=== PATIENT | male | born 1950 | race Caucasian/White ===

== ENCOUNTER → 2018-01-26 11:50 | Outpatient (REF) | payer MEDICARE, MEDICAID, SELFPAY ==
[2018-01-26 12:39] LABS: HCT 44.4 % (40.0-50.0); HGB 14.7 g/dL (13.5-17.5); Mean Corp. HGB Concentration 33.1 g/dL (32.0-36.0); Mean Corpuscular Hemoglobin 30.2 pg (27.0-33.0); Mean Corpuscular Volume 91.4 fL (80-95); Mean Platelet Volume 10.8 fL (8.0-11.0); Platelet Count 193 x1000/uL (130-400); RBC 4.86 m/cumm (4.50-6.00); RBC Distribution Width 16.6 % (11.8-14.1); White Blood Cell Count 7.29 k/cumm (4.4-10.8)
[2018-01-26 12:54] LABS: Hemoglobin A1C 6.1 % (4.5-6.2)
[2018-01-26 12:59] LABS: Anion Gap 7.4 mmol/L (3-11); BUN 22 mg/dL (7-18); CO2 27.6 mmol/L (21.0-32.0); CREATININE 1.34 mg/dL (0.70-1.30); Calcium 9.1 mg/dL (8.5-10.1); Chloride 100 mmol/L (98-107); Estimated GFR 53.17 (mL/min/1.73m2); Ferritin 32 ng/mL (8-388); Glucose 121 mg/dL (70-100); Potassium 4.6 mmol/L (3.5-5.1); Sodium 135 mmol/L (136-145)
== END ==
LOC: NCHCN 11:50
PROVIDERS: PCP Family Medicine; Visit Provider Family Medicine
DX: E11.9 Type 2 diabetes mellitus without complications (principal); I10 Essential (primary) hypertension; K92.2 Gastrointestinal hemorrhage, unspecified; R60.9 Edema, unspecified
CPT/HCPCS: 80048; 85027; 82728; 83036

== ENCOUNTER 2018-04-14 08:21 | Day surgery (SDC) | payer MEDICARE, MEDICAID, SELFPAY ==
[2018-04-14 08:55] VITALS: BP 132/87; PULSE 92; RESP 18; TEMP 36.4; O2SAT 98
[2018-04-14] MEDS: Lactated Ringers 1,000 ML 30 ML IV (09:09)
--- NOTE | 2018-04-14 10:32 | W.COLOREPORT ---
Date of service: 04/14/18 Time of Service: 10:00 Colonoscopy Report Date of procedure: 04/14/18 Pre-op diagnosis general: Colorectal cancer screening Post-op diagnosis procedure note: other (Mild sigmoid diverticulosis) Procedure: Colonoscopy to the cecum Surgeon: Steve Marino Anesthesia proc note operative: MAC (Elías Melissa CRNA; ASA 3 Mallampati class II) Estimated blood loss (mL): 0 Pathology: none sent Complications: None Disposition: same day Indications: 67-year-old gentleman presenting for colorectal cancer screening by colonoscopy. He has no family history of colorectal cancer. He has had esophagectomy for adenocarcinoma of the esophagus. His last colonoscopy was unremarkable Prep: Miralax/Dulcolax (Prep quality adequate) Procedure Start Time: 10:01 Procedure End Time: 10:29 Retraction Time: 14 Findings: In examining the colon from cecum to anus, the patient still had some areas of pulled fecal residue which I was able to wash away. Though, this small pathology still could have been missed. Overall no abnormalities were noted of the colon, rectum, and anus. Procedure Description: The patient was seen in the day surgery waiting area. His identification was confirmed, and procedure checked. He was then brought to the procedure room. Monitoring for telemetry, blood pressure, oxygen saturation, and end tidal CO2 monitoring were applied. An appropriate time out was performed to confirm, identification, allergies, medication, procedure, was performed. Sedation was titrated for affect by the CON; Once adequate sedation was achieved, I performed a inspection of the external perineum, and a digitial rectal examination. No significant external abnormalities were noted. On digital rectal examination, there was no blood, no masses, good rectal tone, and a normal prostate. I advanced the colonoscope from the anus to the cecum under direct visualization. The cecum was identified by the ileal-cecal valve, and the appendiceal orifice. The scope was then withdrawn in circumferential manner from the cecum to the rectum. No abnormalites were noted in the colon other than some mild sigmoid diverticulosis which is not a new finding. The scope was then withdrawn into the rectum, and retroflexed. No abnormalities were noted of the rectum or anorectal junction. The scope was then withdrawn, terminating the procedure. There were no complications during the procedure, and the patient tolerated the procedure well. He was returned to the day surgery recovery area in good condition. Plan: Will continue with routine screening for colorectal cancer according to current consensus guidelines, which is currently 10 years.
--- NOTE | 2018-04-14 10:43 | PDOC.DSDIS_ITS ---
Discharge Plan Disposition Patient Disposition: HOME Condition: Good Discharge Details Reason For Visit: Colorectal cancer screening Attending Provider: Steve Marino Primary Care Provider: Silvina Perdue Home Meds and New Rx's Prescriptions: Continue spironolactone 25 mg tablet 25 mg PO DAILY RF: 0 sucralfate [Carafate] 100 mg/mL suspension 10 ml PO QID RF: 0 ipratropium-albuterol [Combivent Respimat] 20-100 mcg/actuation mist 1 puff IH QID RF: 0 lidocaine 5 % cream 1 applic TP QID RF: 0 multivitamin capsule 1 cap PO DAILY RF: 0 acetaminophen [Tylenol Extra Strength] 500 MG tablet 1,000 mg PO PRN RF: 0 prazosin 1 MG capsule 1 mg PO DAILY Qty: 30 RF: 12 apixaban [Eliquis] 5 MG tablet 5 mg PO BID RF: 0 diclofenac sodium 100 GM gel 4 gm Topical QID PRN30 Days Qty: 100 RF: 11 folic acid 1 MG tablet 1 mg PO DAILY RF: 0 bupropion HCl (smoking deter) 150 MG tablet extended release 12 hr 150 mg PO BID RF: 0 esomeprazole magnesium [Nexium Packet] [address] for susp in packet 40 mg PO BID RF: 0 gabapentin [Gralise] 300 MG tablet extended release 24 hr 300 mg PO TID RF: 0 aspirin [Ecotrin Low Strength] 81 MG tablet,delayed release (DR/EC) 81 mg PO DAILY RF: 0 furosemide 40 MG tablet 40 mg PO . DIRECTED RF: 0 atorvastatin [Lipitor] 10 MG tablet 10 mg PO HS RF: 0 metoprolol tartrate 100 MG tablet 50 mg PO BID RF: 0 tiotropium bromide [Spiriva with HandiHaler] 18 MCG capsule, w/inhalation device 2 puff Inhalation DAILY RF: 0 nitroglycerin [Nitrostat] 0.4 MG tablet, sublingual 0.4 mg Sublingual . DIRECTED PRN (Reason: Chest Pain) RF: 0 cholecalciferol (vitamin D3) 1,000 UNITS tablet 2,000 units PO DAILY RF: 0 pantoprazole 40 MG tablet,delayed release (DR/EC) 40 mg PO DAILY RF: 0 hydrocodone-acetaminophen 1 EACH tablet 1 tab PO BID RF: 0 sulfamethoxazole-trimethoprim 1 TAB tablet 1 ea PO BID Qty: 14 RF: 0 cephalexin 500 MG capsule 500 mg PO QID Qty: 28 RF: 0 metoprolol tartrate 25 mg Tablet 12.5 mg PO BID RF: 0 Discharge Instructions Instructions: Colonoscopy (DC) Stand Alone Forms: Colonoscopy Post Instructions, Charisma Quijano (DSU) Activity:: Activity as Tolerated Diet:: As Tolerated Discharge Orders Discharge Orders: Discharge Order (Routine); Ordered 04/14/18 Ordered By: Steve Marino DS: Diagnosis Discharge Diagnosis (1) Encounter for colorectal cancer screening: Start date: 04/14/18 Start time: 10:00 Status: Acute Asessment and Plan: Colonoscopy performed: Colonoscopy Report Date of procedure: 04/14/18 Pre-op diagnosis general: Colorectal cancer screening Post-op diagnosis procedure note: other (Mild sigmoid diverticulosis) Procedure: Colonoscopy to the cecum Surgeon: Steve Marino Anesthesia proc note operative: MAC (Elías Melissa CRNA; ASA 3 Mallampati class II) Estimated blood loss (mL): 0 Pathology: none sent Complications: None Disposition: same day Indications: 67-year-old gentleman presenting for colorectal cancer screening by colonoscopy. He has no family history of colorectal cancer. He has had esophagectomy for adenocarcinoma of the esophagus. His last colonoscopy was unremarkable Prep: Miralax/Dulcolax (Prep quality adequate) Procedure Start Time: 10:01 Procedure End Time: 10:29 Retraction Time: 14 Findings: In examining the colon from cecum to anus, the patient still had some areas of pulled fecal residue which I was able to wash away. Though, this small pathology still could have been missed. Overall no abnormalities were noted of the colon, rectum, and anus. Procedure Description: The patient was seen in the day surgery waiting area. His identification was confirmed, and procedure checked. He was then brought to the procedure room. Monitoring for telemetry, blood pressure, oxygen saturation, and end tidal CO2 monitoring were applied. An appropriate time out was performed to confirm, identification, allergies, medication, procedure, was performed. Sedation was titrated for affect by the BLACK TOP SPREADER MACHINE OPERATOR; Once adequate sedation was achieved, I performed a inspection of the external perineum, and a digitial rectal examination. No significant external abnormalities were noted. On digital rectal examination, there was no blood, no masses, good rectal tone, and a normal prostate. I advanced the colonoscope from the anus to the cecum under direct visualization. The cecum was identified by the ileal-cecal valve, and the appendiceal orifice. The scope was then withdrawn in circumferential manner from the cecum to the rectum. No abnormalites were noted in the colon other than some mild sigmoid diverticulosis which is not a new finding. The scope was then withdrawn into the rectum, and retroflexed. No abnormalities were noted of the rectum or anorectal junction. The scope was then withdrawn, terminating the procedure. There were no complications during the procedure, and the patient tolerated the procedure well. He was returned to the day surgery recovery area in good condition. Plan: Will continue with routine screening for colorectal cancer according to current consensus guidelines, which is currently 10 years.
[2018-04-14 10:58] VITALS: BP 118/86; PULSE 74; RESP 18; TEMP 36.7; O2SAT 99
[2018-04-14] MEDS: HYDROcodone 5/Acetaminophen 325 TAB PO (11:29)
== END 2018-04-14 11:45 | disposition home or self-care (01) ==
PROVIDERS: PCP Family Medicine; Visit Provider Surgery
PROC: 0DJD8ZZ Inspection of Lower Intestinal Tract, Via Natural or Artificial Opening Endoscopic (ICD-10-PCS; CPT 45378; principal; 2018-04-14 10:00)
DX: Z12.11 Encounter for screening for malignant neoplasm of colon (principal); K57.30 Diverticulosis of large intestine without perforation or abscess without bleeding; Z85.01 Personal history of malignant neoplasm of esophagus
CPT/HCPCS: 45378; G0105

== ENCOUNTER 2018-05-08 00:38 | Outpatient (CLI) | payer MEDICARE, MEDICAID, SELFPAY ==
--- NOTE | 2018-05-08 11:01 | DI.CT_ITS ---
SYMPTOM/DIAGNOSIS: SOLITARY PULMONARY NODULE, STABLE, ONE YEAR FOLLOW UP CHEST CT: CT scan of the chest was performed without intravenous contrast material. Comparison is made with 04/08/17. The lack of IV contrast does limit evaluation. The thyroid gland is heterogeneous with areas of decreased attenuation likely reflecting thyroid nodules. Follow up as clinically appropriate. There is atherosclerosis of the thoracic aorta but no aneurysmal dilatation is present. Heart size is at the upper limits of normal. No significant pericardial effusion is seen. Sternal wires are present. No significant thoracic adenopathy is appreciated. No pleural effusion or pneumothorax is identified. Note is again made of post surgical changes of a gastric pull up. There are again seen moderately severe emphysematous changes in the lungs. Pleural scarring is also present. The small area of spiculation in the left upper lobe is less prominent on the current examination. No new pulmonary nodules are appreciated. No new infiltrates are seen. Degenerative changes are seen in the spine. There are stable post surgical changes in the left anterior abdominal wall. IMPRESSION: 1. Persistent nodule in the left upper lobe, less prominent on the current examination. 2. No new pulmonary nodules.
== END 2018-05-08 00:58 ==
PROVIDERS: PCP Family Medicine; Visit Provider Family Medicine
DX: R91.1 Solitary pulmonary nodule (principal); J43.9 Emphysema, unspecified; J98.4 Other disorders of lung
CPT/HCPCS: 71250

== ENCOUNTER 2018-08-04 09:22 | Outpatient (CLI) | payer MEDICARE, MEDICAID, SELFPAY ==
[2018-08-04 10:43] LABS: Cholesterol 132 mg/dL (50-200); HDL Cholesterol 76 mg/dL (40-60); LDL CHOLESTEROL 41 mg/dL (<100); Triglyceride 57 mg/dL (30-150)
== END 2018-08-04 09:42 ==
PROVIDERS: PCP Family Medicine; Visit Provider Family Medicine
DX: I10 Essential (primary) hypertension (principal); E11.9 Type 2 diabetes mellitus without complications; R60.9 Edema, unspecified; I25.810 Atherosclerosis of coronary artery bypass graft(s) without angina pectoris
CPT/HCPCS: 36415; 80061; 83721

== ENCOUNTER 2018-11-02 11:43 | Outpatient (REF) | payer MEDICARE, MEDICAID, SELFPAY ==
[2018-11-02 19:56] LABS: COMMENT (LAB VIEW ONLY) 45.37 mg/dL; Microalb ug/mg Crea 12.6 ug/mg Cr
== END 2018-11-02 12:03 ==
LOC: NCHCN 11:43
PROVIDERS: PCP Family Medicine; Visit Provider Family Medicine
DX: E11.9 Type 2 diabetes mellitus without complications (principal)
CPT/HCPCS: 82043; 82570

== ENCOUNTER 2019-01-26 14:17 | Emergency (ER) | payer MEDICARE, MEDICAID, SELFPAY ==
[2019-01-26] VITALS (15 sets, daily range): BP systolic 89–109; BP diastolic 60–78; PULSE 67–98; RESP 12–28; TEMP 36.7–36.8; O2SAT 95–99
--- NOTE | 2019-01-26 14:26 | DI.CT_ITS ---
SYMPTOM/DIAGNOSIS: FELL, RT SIDED PAIN, SOB, ANTICOAGULATED CHEST, ABDOMEN AND PELVIC CT: CHEST: Comparison is made with chest CT dated 05/08/18. There is an old right eleventh rib fracture. No acute rib or spine fractures are seen. Sternal wires are noted. There is no evidence of pneumothorax. There are severe underlying emphysematous changes at the upper lobes. There are now increased densities in the right upper lobe, both posteriorly as well as anteriorly. Mildly increased densities are seen in the right lower and left lung base. No pleural or pericardial effusions are seen. The heart is enlarged. There are calcifications of the aorta but no evidence of aneurysm or dissection. There are post surgical changes at the GE junction. A portion of the stomach projects in the chest. There are multiple old left rib fractures. IMPRESSION: Acute infiltrates, greatest in the right upper lobe. Post surgical changes of the distal esophagus and stomach. Old bilateral rib fractures. Cardiomegaly. ABDOMEN AND PELVIC CT: There is artifact on the upper images due to patient's arm position. The liver, gallbladder, pancreas and kidneys are unremarkable. There are surgical clips adjacent to the spleen. The adrenals are unremarkable. There is a large quantity of stool in the colon. There are severe atherosclerotic changes of the abdominal aorta and iliac arteries with no evidence of occlusion. Bladder and prostate are unremarkable. No lumbar spine or pelvic fractures are seen. IMPRESSION: No acute abnormality.
--- NOTE | 2019-01-26 14:27 | W.ED.GENAD ---
Discharge Plan Disposition Patient Disposition: HOME Condition: Improving Discharge Details Chief Complaint: Trauma Clinical Impression: Pneumonia involving right lung Primary Care Provider: Silvina Perdue ED Provider: Gregor Broderick Home Meds and New Rx's Prescriptions: New cefpodoxime 200 mg tablet 200 mg PO BID Qty: 14 RF: 0 Continued spironolactone 25 mg tablet 25 mg PO DAILY RF: 0 sucralfate [Carafate] 100 mg/mL suspension 10 ml PO QID RF: 0 ipratropium-albuterol [Combivent Respimat] 20-100 mcg/actuation mist 1 puff IH QID RF: 0 lidocaine 5 % cream 1 applic TP QID RF: 0 multivitamin capsule 1 cap PO DAILY RF: 0 acetaminophen [Tylenol Extra Strength] 500 MG tablet 1,000 mg PO PRN RF: 0 prazosin 1 MG capsule 1 mg PO DAILY Qty: 30 RF: 12 apixaban [Eliquis] 5 MG tablet 5 mg PO BID RF: 0 diclofenac sodium 100 GM gel 4 gm Topical QID PRN30 Days Qty: 100 RF: 11 folic acid 1 MG tablet 1 mg PO DAILY RF: 0 bupropion HCl (smoking deter) 150 MG tablet extended release 12 hr 150 mg PO BID RF: 0 esomeprazole magnesium [Nexium Packet] [address] for susp in packet 40 mg PO BID RF: 0 gabapentin [Gralise] 300 MG tablet extended release 24 hr 300 mg PO TID RF: 0 aspirin [Ecotrin Low Strength] 81 MG tablet,delayed release (DR/EC) 81 mg PO DAILY RF: 0 furosemide 40 MG tablet 40 mg PO . DIRECTED RF: 0 atorvastatin [Lipitor] 10 MG tablet 10 mg PO HS RF: 0 metoprolol tartrate 100 MG tablet 50 mg PO BID RF: 0 tiotropium bromide [Spiriva with HandiHaler] 18 MCG capsule, w/inhalation device 2 puff Inhalation DAILY RF: 0 nitroglycerin [Nitrostat] 0.4 MG tablet, sublingual 0.4 mg Sublingual . DIRECTED PRN (Reason: Chest Pain) RF: 0 cholecalciferol (vitamin D3) 1,000 UNITS tablet 2,000 units PO DAILY RF: 0 pantoprazole 40 MG tablet,delayed release (DR/EC) 40 mg PO DAILY RF: 0 hydrocodone-acetaminophen 1 EACH tablet 1 tab PO BID RF: 0 metoprolol tartrate 25 mg Tablet 12.5 mg PO BID RF: 0 Discontinued sulfamethoxazole-trimethoprim 1 TAB tablet 1 ea PO BID Qty: 14 RF: 0 cephalexin 500 MG capsule 500 mg PO QID Qty: 28 RF: 0 Discharge Instructions Instructions: Pneumonia (ED) Additional Instructions: Maintain your appointment to follow-up with Dr Perdue next week. Home to rest today. Take antibiotics as prescribed. Return to the emergency department for any acute concern Medical Decision Making 68-year-old male with a number of chronic medical problems states he slipped on 3 stairs and fell down to the floor 2 days ago striking his left and right upper extremity. He suffered abrasions that he cleaned and dressed at home. Now presents ER complaining of some cough with production of blood-tinged sputum. He denies to me a loss of consciousness. No headache. No abdominal pain. No neck or back injury. He has a normal blood pressure and oxygenation. Some right lateral chest wall tenderness and diminished breath sounds present on exam. IV placed, screening labs obtained, given patient's underlying anticoagulation, blunt traumatic injury, and right-sided pain, he is referred for CT images. There is no focal bony tenderness of the extremity and therefore plain radiographs are deferred. Patient's diagnostics reveal a white blood cell count of 12, hematocrit 43, platelets are 180. Sodium 139, potassium 3.3, chloride 101, bicarb 27, BUN 34, creatinine 1.2. CT images: Groundglass opacities and segmental regions of consolidative and fibrotic changes involving the right upper and middle lobes, may represent interstitial fibrotic changes with superimposed pneumonia. Please see formal report per Dr Buenrostro. Patient remains stable with normal oxygenation. Given his underlying lung disease, I will opt to treat him for pneumonia given his CT findings. Discussed with him plan of care, home management, as well as return precautions. He has pre-standing follow-up next week in primary care. ECG Data Attestation: I personally reviewed and interpreted this ECG (s) as follows: Interpretation: Underlying A. fib with a ventricular rate of 88, the QRS is narrow, there is no ST segment elevation. HPI General Mode of arrival: ambulatory. Date/Time Provider Initiated Documentation: 01/26/19 14:20. Limitations to Documentation: no limitations. Information obtained by: patient. History of Present Illness 68 year old M presents to the emergency department with the chief complaint of Right-sided chest pain after fall 2 days ago, described as moderate, Quality is described as dull, and is localized to the chest and right. Patient reports no radiation. Patient started experiencing this day(s) Rest improves symptom(s), Movement worsens symptoms . Patient notes cough. Patient did receive the following treatments prior to arrival, none Related Data Home Medications Medication Instructions Recorded Confirmed bupropion HCl (smoking deter) 150 mg PO BID 08/04/12 04/14/18 esomeprazole magnesium [Nexium 40 mg PO BID 08/04/12 04/14/18 Packet] folic acid 1 mg PO DAILY 08/04/12 04/14/18 gabapentin [Gralise] 300 mg PO TID 08/04/12 04/14/18 aspirin [Ecotrin Low Strength] 81 mg PO DAILY 04/09/13 04/14/18 atorvastatin [Lipitor] 10 mg PO HS 01/25/15 04/14/18 furosemide 40 mg PO . DIRECTED 01/25/15 04/14/18 metoprolol tartrate 50 mg PO BID 01/25/15 04/14/18 tiotropium bromide [Spiriva with 2 puff INHALATION DAILY 01/25/15 04/14/18 HandiHaler] cholecalciferol (vitamin D3) 2,000 units PO DAILY 04/12/16 04/14/18 nitroglycerin [Nitrostat] 0.4 mg SUBLINGUAL . DIRECTED PRN 04/12/16 04/14/18 acetaminophen [Tylenol Extra 1,000 mg PO PRN tab-cap 11/19/16 04/14/18 Strength] apixaban [Eliquis] 5 mg PO BID 12/21/16 04/14/18 prazosin 1 mg PO DAILY #30 tab-cap 12/21/16 04/14/18 pantoprazole 40 mg PO DAILY 01/15/17 04/14/18 diclofenac sodium 4 gm TOPICAL QID PRN 30 Days #100 09/05/17 04/14/18 gm hydrocodone-acetaminophen 1 tab PO BID 09/13/17 04/14/18 ipratropium 20 mcg-albuterol 100 1 puff IH QID 02/10/18 04/14/18 mcg/actuation mist for inhalation lidocaine 5 % topical cream 1 applic TP QID 02/10/18 04/14/18 multivitamin 1 cap PO DAILY 02/10/18 04/14/18 spironolactone 25 mg tablet 25 mg PO DAILY 02/10/18 04/14/18 sucralfate 100 mg/mL oral 10 ml PO QID 02/10/18 04/14/18 suspension metoprolol tartrate 12.5 mg PO BID 04/12/18 04/14/18 cefpodoxime 200 mg PO BID #14 tab 01/26/19 Previous Rx's Medication Instructions Recorded cefpodoxime 200 mg PO BID #14 tab 01/26/19 Allergies Allergy/AdvReac Type Severity Reaction Status Date / Time No Known Allergies Allergy Verified 04/12/18 08:58 General Stated Complaint: Trauma ANAMIKA: 3 Review of Systems Review of Systems 6 systems reviewed and otherwise negative. Denies loss of consciousness. No neck/back/abdominal pain. [facility] Medical History Adenocarcinoma of esophagus Afib Alcohol abuse Atrial flutter CAD (coronary artery disease) Chest wall pain Chronic obstructive lung disease Coronary arteriosclerosis Diabetes mellitus Difficulty reading Diuresis (Acute) Edema Epididymitis, right Essential hypertension GERD (gastroesophageal reflux disease) GI bleed (Chronic) Hx of esophageal malignancy Hydrocele, right Hyperlipidemia Low back pain Pancreatitis Solitary pulmonary nodule Stomach cancer (Resolved) Tobacco abuse Tricuspid regurgitation Weight loss (Acute) Surgical History cardiac cath Coronary Artery Bypass Gaft (CABG) EGD - IV Sedation Esophagectomy H/O colonoscopy (Resolved 2007) H/O colonoscopy (Resolved 04/14/18) History of esophagogastroduodenoscopy (EGD) (Resolved 09/2017) History of hydrocelectomy (Resolved) History of right inguinal hernia repair (Resolved) sugrical flap of unhealing wound Family History Mother No problems noted. Father No problems noted. Social History Smoking/Tobacco Use Status: Current every day Tobacco Type: cigarettes Alcohol Intake: current Alcohol Intake frequency: 3 or more drinks per day Alcohol type: beer Drug use: Occasionally Substance use type: marijuana Do you feel safe at home: Yes Do you feel safe in your relationship?: Yes Exam Narrative Exam Narrative: GEN: awake, alert, oriented 3. Pleasant, well groomed, interactive. HEAD: Normocephalic, atraumatic ENT: Mucous membranes moist, oropharynx unremarkable, External ear exam unremarkable EYES: PERRL, EOMI NECK: Full ROM, no BIRGIT, no menigismus CHEST/RESP: Tender right lateral chest wall, diminished breath sounds bilateral, no wheeze/rhonchi/rales CARDIOVASCULAR: Irregularly irregular, no murmur, rub evans. 2+ Rad pulse bilateral ABDOMEN: Soft, nontender, ventral hernia-soft and nontender. +Bowel sounds Back: Nontender, no step-off or deformity. EXT: Full ROM, 1+ pretibial edema, no rash. Abrasion to right lateral shoulder, no bony tenderness. Abrasion left elbow, no bony tenderness. Abrasion right wrist, no bony tenderness. Neuro: Grossly normal neurologic exam, conversant, interactive. Psych: Speech fluent, thoughts congruent, affect normal Course Vital Signs Temperature 36.8 C 01/26/19 14:21 Pulse 98 H 01/26/19 14:21 Respiratory Rate 23 01/26/19 14:21 Blood Pressure 109/78 01/26/19 14:21 Pulse Oximetry 95 01/26/19 14:21 Temperature 36.8 C 01/26/19 14:21 Temperature Source Skin 01/26/19 14:21 Pulse 98 H 01/26/19 14:21 Respiratory Rate 23 01/26/19 14:21 Respiratory Effort 01/26/19 14:25 Blood Pressure 109/78 01/26/19 14:21 Blood Pressure Position Sitting 01/26/19 14:21 Pulse Oximetry 95 01/26/19 14:21 Oxygen Delivery Method Room Air 01/26/19 14:21 Oxygen Flow Rate 0 01/26/19 14:21
[2019-01-26 14:46] LABS: Abs Immature Grans 0.03 k/cumm (0.0-0.09); Absolute Basophil Count 0.01 k/cumm (0.0-0.2); Absolute Eosinophil Count 0.06 k/cumm (0.0-0.7); Absolute Lymphocyte Count 0.79 k/cumm (1.2-3.4); Absolute Neutrophil Count 10.02 k/cumm (1.2-6.7); Basophils % 0.1; Eosinophils % 0.5; HCT 43.9 % (40.0-50.0); Immature Grans % 0.2; Lymphocytes % 6.5; Mean Corp. HGB Concentration 34.2 g/dL (32.0-36.0); Mean Corpuscular Hemoglobin 32.6 pg (27.0-33.0); Mean Corpuscular Volume 95.4 fL (80-95); Mean Platelet Volume 10.6 fL (8.0-11.0); Monocytes % 10.1; Neutrophils % 82.6; Platelet Count 180 x1000/uL (130-400); RBC Distribution Width 15.6 % (11.8-14.1); White Blood Cell Count 12.13 k/cumm (4.4-10.8)
[2019-01-26 14:47] LABS: Absolute Monocyte Count 1.23 k/cumm (0.11-0.7)
[2019-01-26 15:04] LABS: ALT 19 U/L (16-63); AST 22 U/L (15-37); Alkaline Phosphatase 127 U/L (46-116); BUN 34 mg/dL (7-18); Bilirubin, Total 0.6 mg/dL (0.2-1.0); Calcium 8.9 mg/dL (8.5-10.1); Chloride 101 mmol/L (98-107); Glucose 73 mg/dL (70-100); Potassium 3.3 mmol/L (3.5-5.1); Sodium 139 mmol/L (136-145); Total Protein 7.5 g/dL (6.4-8.2)
[2019-01-26] MEDS: Omnipaque 350 MG/ML 100 ML BTL IJ (15:50)
--- NOTE | 2019-01-26 16:12 | DI.VRAD_ITS ---
EXAM: CT Chest With Contrast EXAM DATE/TIME: 01/26/2019 3:50 PM CLINICAL HISTORY: 68 years old, male; Abdominal pain; Localized; Right; Chest wall pain; Prior surgery; Patient HX: Fall, R sided pain, SOB, anticoagulated; Additional info: Per PT: Coughing up blood TECHNIQUE: Imaging protocol: Computed tomography images of the chest with intravenous contrast. COMPARISON: CT CHEST WO 05/08/2018 10:51 AM FINDINGS: Lungs: Diffuse centrilobular emphysematous changes. Groundglass opacities and segmental regions of mixed consolidative and fibrotic changes involving the right upper and middle lobes, and to a lesser extent the lower lobes. Pleural space: No pleural effusion or pneumothorax. Heart: Moderate calcifications of the coronary arteries. Mediastinum: Moderate sized hiatal hernia. Aorta: Moderate atherosclerotic calcifications of the aorta. Lymph nodes: No enlarged lymph nodes. Bones/joints: Median sternotomy wires are in place. Degenerative changes of the visualized spine. No acute fractures. Soft tissues: Subcentimeter low density nodules in the thyroid gland, to which no further followup is necessary. Chest wall soft tissues are unremarkable. IMPRESSION: 1. Groundglass opacities and segmental regions of mixed consolidative and fibrotic changes involving the right upper and middle lobes, and to a lesser extent the lower lobes. Findings may represent interstitial fibrotic changes with superimposed pneumonia. Recommend followup chest CT in 6-8 weeks. 2. Moderate calcifications of the coronary arteries. 3. Other chronic findings, as above. EXAM: CT Abdomen and Pelvis With Contrast EXAM DATE/TIME: 01/26/2019 3:50 PM CLINICAL HISTORY: 68 years old, male; Abdominal pain; Localized; Right; Chest wall pain; Prior surgery; Patient HX: Fall, R sided pain, SOB, anticoagulated; Additional info: Per PT: Coughing up blood TECHNIQUE: Imaging protocol: Computed tomography images of the abdomen and pelvis with intravenous contrast. COMPARISON: CT CHEST WO 05/08/2018 10:51 AM FINDINGS: Mediastinum: Moderate size hiatal hernia. Liver: Nonspecific poorly defined 1.5 cm low-density lesion in the right hepatic lobe (series 4 image 39). Gallbladder and bile ducts: Unremarkable. No ductal dilation. Pancreas: Calcifications in the region of the pancreatic head, likely sequela of chronic pancreatitis. Spleen: Unremarkable. Adrenals: Unremarkable. Kidneys and ureters: Bilateral extrarenal pelves. No definitive hydronephrosis. No nephrolithiasis. Stomach and bowel: Mild stool burden throughout the colon. Appendix: No evidence of appendicitis. Intraperitoneal space: No pneumoperitoneum. No significant fluid collection. 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 Severe calcifications of the aorta and major branches. Lymph nodes: No enlarged lymph nodes. Bladder: Unremarkable. Reproductive: Unremarkable as visualized. Bones/joints: Multilevel degenerative changes of the visualized spine. No acute osseous lesion or fracture. Soft tissues: Unremarkable. IMPRESSION: 1. Mild stool burden throughout the colon. 2. 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 3. Calcifications in the region of the pancreatic head, likely sequela of chronic pancreatitis. 4. Other chronic findings, as above. Dictated and Authenticated by: Greg Buenrostro MD. Ordering:IZAIAH Bundy MD
[2019-01-26] MEDS: Cefpodoxime 200 MG TAB PO (16:28)
== END 2019-01-26 16:54 | disposition home or self-care (01) ==
LOC: ER 16:29
PROVIDERS: Emergency Provider Emergency Medicine; PCP Family Medicine
DX: J18.9 Pneumonia, unspecified organism (principal); S29.9XXA Unspecified injury of thorax, initial encounter; S40.211A Abrasion of right shoulder, initial encounter; S50.312A Abrasion of left elbow, initial encounter; S60.811A Abrasion of right wrist, initial encounter; R04.2 Hemoptysis; W10.8XXA Fall (on) (from) other stairs and steps, initial encounter; Z79.01 Long term (current) use of anticoagulants; J44.9 Chronic obstructive pulmonary disease, unspecified; E11.9 Type 2 diabetes mellitus without complications; I10 Essential (primary) hypertension
CPT/HCPCS: 36415; 74177; 80053; 93005; 99285; 71260; 85025; 93010; J3490

== ENCOUNTER 2019-01-29 15:21 | Emergency (ER) | payer MEDICARE, MEDICAID, SELFPAY ==
[2019-01-29 15:25] VITALS: BP 113/79; PULSE 99; RESP 16; TEMP 37.1; O2SAT 98
--- NOTE | 2019-01-29 15:37 | ED.GENADUL_ITS ---
Discharge Plan Disposition Patient Disposition: HOME Condition: Improving Discharge Details Chief Complaint: Orthopedic Clinical Impression: Right arm pain, Cervical radiculopathy, Thoracic compression fracture, Chronic back pain Primary Care Provider: Silvina Perdue ED Provider: Yun Rosas Home Meds and New Rx's Prescriptions: Continued spironolactone 25 mg tablet 25 mg PO DAILY RF: 0 sucralfate [Carafate] 100 mg/mL suspension 10 ml PO QID RF: 0 Combivent Respimat 20-100 mcg/actuation mist 1 puff IH QID RF: 0 lidocaine 5 % cream 1 applic TP QID RF: 0 multivitamin capsule 1 cap PO DAILY RF: 0 acetaminophen [Tylenol Extra Strength] 500 MG tablet 1,000 mg PO PRN RF: 0 prazosin 1 MG capsule 1 mg PO DAILY Qty: 30 RF: 12 Eliquis 5 MG tablet 5 mg PO BID RF: 0 diclofenac sodium 100 GM gel 4 gm Topical QID PRN30 Days Qty: 100 RF: 11 folic acid 1 MG tablet 1 mg PO DAILY RF: 0 bupropion HCl (smoking deter) 150 MG tablet extended release 12 hr 150 mg PO BID RF: 0 Nexium Packet [address] for susp in packet 40 mg PO BID RF: 0 Gralise 300 MG tablet extended release 24 hr 300 mg PO TID RF: 0 aspirin [Ecotrin Low Strength] 81 MG tablet,delayed release (DR/EC) 81 mg PO DAILY RF: 0 furosemide 40 MG tablet 40 mg PO . DIRECTED RF: 0 atorvastatin [Lipitor] 10 MG tablet 10 mg PO HS RF: 0 metoprolol tartrate 100 MG tablet 50 mg PO BID RF: 0 Spiriva with HandiHaler 18 MCG capsule, w/inhalation device 2 puff Inhalation DAILY RF: 0 nitroglycerin [Nitrostat] 0.4 MG tablet, sublingual 0.4 mg Sublingual . DIRECTED PRN (Reason: Chest Pain) RF: 0 cholecalciferol (vitamin D3) 1,000 UNITS tablet 2,000 units PO DAILY RF: 0 cefpodoxime 200 mg tablet 200 mg PO BID Qty: 14 RF: 0 lidocaine [Lidoderm] 5 % adhesive patch,medicated 1 patch TP DAILY Qty: 3 RF: 0 pantoprazole 40 MG tablet,delayed release (DR/EC) 40 mg PO DAILY RF: 0 hydrocodone-acetaminophen 1 EACH tablet 1 tab PO BID RF: 0 metoprolol tartrate 25 mg Tablet 12.5 mg PO BID RF: 0 Discharge Instructions Instructions: Vertebral Compression Fracture (ED), Cervical Radiculopathy (ED), Chronic Back Pain (ED) Additional Instructions: Follow-up with your scheduled appointment with your primary care doctor on . Take Tylenol and use your Lidoderm patch as needed directed for pain. Return immediately to the emergency department if you develop any worsening or new concerning symptoms. Discharge Data Discharge Physician: Yun Rosas Medical Decision Making 68-year-old male with medical problems including atrial fibrillation on eliquis, coronary artery disease, pancreatitis GI bleed presents for persistent right arm pain/right arm weakness after awakening this morning. He is difficult to obtain history from. Triage stated that patient persist. On my evaluation, he stated he had been mainly weak in his RUE since this morning. On further evaluation he states he is having continual pain in his R arm. On presentation, this appears to be more musculoskeletal, possibly originating from the neck, shoulder, or upper back. Considering his age and history however, will check screening labs and EKG. Will obtain a CT head and cervical spine to assess for any acute neurological insult, as well as for herniated disc or fracture in the neck. We will give a dose of tylenol and a Lidoderm patch. EKG notes a rate of 78, A. fib with no acute ST ischemic changes. Labs and imaging reviewed. No acute findings on blood work. Troponin negative. Electrolytes within normal limits. CT head negative. CT C-spine notes degenerative changes but no acute findings. There is a possible T2 compression deformity noted and recommended dedicated T-spine CT. Patient admits to upper back pain for a few months. He has minimal midline thoracic spine tenderness. Will send for T-spine CT. Patient was notified of findings and he states he feels significantly better. He has full range of motion of his right arm and states his pain is improved. 0 --CT thoracic spine notes mild acute compression deformities of the anterior superior endplate of T2. This was discussed with Dr. Aguilar and no a blakee recommendations. Patient feels much better and is requesting to go home. He has a follow-up a ppointment with his primary care doctor on . Patient has full range of motion in his arms and denies any headache, dizziness, blurry vision, slurred speech or lower extremity weakness or numbness. Again discussed with patient that his symptom presentation along with pain appears more likely consistent with cervical radiculopathy possibly due to cervical spinal stenosis or associated with his recent fall. Discussed that he could consider obtaining an outpatient MRI of his brain for further evaluation if indicated. He is advised to return here immediately if he has any worsening or new concerning symptoms. Medical Records Medical records reviewed: Yes I reviewed the patient's medical records. Imaging Data Radiologic Study: Radiologist's impression: CT Head Without Contrast EXAM DATE/TIME: 01/29/2019 3:58 PM CLINICAL HISTORY: 68 years old, male; Other: S/P fall onto R shoulder, R arm weak; Additional info: R/O cva/fracture/herniated disc TECHNIQUE: Imaging protocol: Computed tomography images of the head without contrast. Radiation optimization: All CT scans at this facility use at least one of these dose optimization techniques: automated exposure control; mA and/or kV adjustment per patient size (includes targeted exams where dose is matched to clinical indication); or iterative reconstruction. COMPARISON: CT HEAD WITHOUT CONTRAST 05/19/2017 4:23 AM FINDINGS: Brain: Mild nonspecific hypodensities of the periventricular and deep subcortical white matter, most likely secondary to chronic small vessel ischemic change. No intracranial hemorrhage or extra-axial fluid collection. No evidence of mass effect or midline shift. Irby-white matter differentiation is normal. Ventricles: Mild prominence of the ventricles and sulci, most likely attributed to parenchymal volume loss. Bones/joints: No acute osseus lesion or fracture. Sinuses: Unremarkable as visualized. Mastoid air cells: Unremarkable. Soft tissues: Unremarkable. IMPRESSION: 1. No acute intracranial pathology. 2. Other chronic findings, as above. CT Cervical Spine Without Contrast EXAM DATE/TIME: 01/29/2019 3:58 PM CLINICAL HISTORY: 68 years old, male; Other: S/P fall onto R shoulder, R arm weak; Additional info: R/O cva/fracture/herniated disc TECHNIQUE: Imaging protocol: Computed tomography images of the cervical spine without contrast. Radiation optimization: All CT scans at this facility use at least one of these dose optimization techniques: automated exposure control; mA and/or kV adjustment per patient size (includes targeted exams where dose is matched to clinical indication); or iterative reconstruction. COMPARISON: CT HEAD WITHOUT CONTRAST 05/19/2017 4:23 AM FINDINGS: Vertebrae: Possible acute mild compression deformity of the anterior superior endplate of T2. Cervical vertebral body heights are maintained. No evidence of acute cervical spine fracture. No locked or perched facets. Multilevel facet arthropathy. The dens is intact. Atlanto-axial intervals are normal. Discs/Spinal canal/Neural foramina: Multilevel degenerative changes with intervertebral disc height loss and osteophyte formation, with multilevel areas of mild to moderate canal stenosis. Soft tissues: Unremarkable. Lungs: Emphysematous changes of the lungs. IMPRESSION: 1. No acute cervical spine fracture. 2. Possible acute mild compression deformity of the anterior superior endplate of T2. Recommend correlation with dedicated thoracic spine CT. CT Thoracic Spine Without Contrast EXAM DATE/TIME: 01/29/2019 6:18 PM CLINICAL HISTORY: 68 years old, male; Abnormal findings; Abnormal radiologic findings of thoracic; Patient HX: R/O compression deformity of t2 TECHNIQUE: Imaging protocol: Computed tomography images of the thoracic spine without contrast. COMPARISON: No relevant prior studies available. FINDINGS: Vertebrae: Mild acute compression deformities the anterior superior endplate of T2. No significant loss of height. No retropulsion. Remaining thoracic vertebral body heights are maintained. Multilevel facet arthropathy. Spinous processes are intact. Discs/Spinal canal/Neural foramina: Multilevel degenerative disc height loss and osteophyte formation. No significant areas of canal narrowing. Soft tissues: Unremarkable. Lungs: Centrilobular emphysematous changes of the lungs. Patchy airspace opacities throughout the partially visualized left lower lobe. Pleural space: Trace right pleural effusion. IMPRESSION: 1. Mild acute compression deformities the anterior superior endplate of T2. 2. Patchy airspace opacities throughout the partially visualized left lower lobe. Correlate with chest imaging. 3. Trace right pleural effusion. Lab Data Lab results reviewed: Yes I reviewed the patient's lab results. Laboratory Tests Range/Units 01/29/19 01/29/19 16:15 16:15 WBC (4.4-10.8) k/cumm 6.00 RBC (4.50-6.00) m/cumm 4.35 L Hgb (13.5-17.5) g/dL 14.1 Hct (40.0-50.0) % 41.4 MCV (80-95) fL 95.2 H MCH (27.0-33.0) pg 32.4 MCHC (32.0-36.0) g/dL 34.1 RDW (11.8-14.1) % 15.1 H Plt Count (130-400) x1000/uL 177 MPV (8.0-11.0) fL 9.8 Immature Gran % 0.3 Neutrophils % 66.2 Lymphocytes % 19.7 Monocytes % 10.3 Eosinophils % 3.2 Basophils % 0.3 Absolute Neutrophils (1.2-6.7) k/cumm 3.97 Absolute Lymphocytes (1.2-3.4) k/cumm 1.18 L Absolute Monocytes (0.11-0.7) k/cumm 0.62 Absolute Eosinophils (0.0-0.7) k/cumm 0.19 Absolute Basophils (0.0-0.2) k/cumm 0.02 Sodium (136-145) mmol/L 137 Potassium (3.5-5.1) mmol/L 3.9 Chloride (98-107) mmol/L 101 Carbon Dioxide (21.0-32.0) mmol/L 29.1 Anion Gap (3-11) mmol/L 6.9 BUN (7-18) mg/dL 21 H Creatinine (0.70-1.30) mg/dL 1.07 Estimated GFR/1.73 m2 (mL/min/1.73m2) >= 60.00 Glucose (70-100) mg/dL 104 H Calcium (8.5-10.1) mg/dL 8.8 Magnesium (1.8-2.4) mg/dL 1.9 Total Bilirubin (0.2-1.0) mg/dL 0.7 AST (15-37) U/L 21 ALT (16-63) U/L 22 Alkaline Phosphatase (46-116) U/L 120 H Troponin I (0.00-0.06) ng/mL < 0.05 Total Protein (6.4-8.2) g/dL 6.7 Albumin (3.4-5.0) g/dL 2.7 L ECG Data Attestation: I personally reviewed and interpreted this ECG (s) as follows: Interpretation: Rate of 78, atrial fibrillation, no acute ST elevation or depression. QTc 417. QRS 82. HPI General Mode of arrival: ambulatory . Date/Time Provider Initiated Documentation: 01/29/19 15:21 . Limitations to Documentation: no limitations . Information obtained by: patient . HPI Narrative: Patient is a 68-year-old male with history of COPD and depression, GERD, GI bleed, hypertension, hyperlipidemia, pancreatitis and CABG who presents for right arm pain since last week. Patient states he last week, and side. He was seen in the ED at that of a right upper lobe pneumonia but no other orthopedic injuries. Patient states he awoke this morning like he could not lift his right arm as much his left side. 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 He does admit to the right. He also admits to right upper back pain. He denies headache, blurry vision, dizziness, neck pain, chest pain, shortness of breath, slurred speech or bilateral leg weakness or numbness. Patient states he was driven here by a neighbor. Related Data Home Medications Medication Instructions Recorded Confirmed Gralise 300 mg PO TID 08/04/12 01/29/19 Nexium Packet 40 mg PO BID 08/04/12 01/29/19 bupropion HCl (smoking deter) 150 mg PO BID 08/04/12 01/29/19 folic acid 1 mg PO DAILY 08/04/12 01/29/19 aspirin [Ecotrin Low Strength] 81 mg PO DAILY 04/09/13 01/29/19 Spiriva with HandiHaler 2 puff INHALATION DAILY 01/25/15 01/29/19 atorvastatin [Lipitor] 10 mg PO HS 01/25/15 01/29/19 furosemide 40 mg PO . DIRECTED 01/25/15 01/29/19 metoprolol tartrate 50 mg PO BID 01/25/15 01/29/19 cholecalciferol (vitamin D3) 2,000 units PO DAILY 04/12/16 01/29/19 nitroglycerin [Nitrostat] 0.4 mg SUBLINGUAL . DIRECTED PRN 04/12/16 01/29/19 acetaminophen [Tylenol Extra 1,000 mg PO PRN tab-cap 11/19/16 01/29/19 Strength] Eliquis 5 mg PO BID 12/21/16 01/29/19 prazosin 1 mg PO DAILY #30 tab-cap 12/21/16 01/29/19 pantoprazole 40 mg PO DAILY 01/15/17 01/29/19 diclofenac sodium 4 gm TOPICAL QID PRN 30 Days #100 09/05/17 01/29/19 gm hydrocodone-acetaminophen 1 tab PO BID 09/13/17 01/29/19 ipratropium 20 mcg-albuterol 100 1 puff IH QID 02/10/18 01/29/19 mcg/actuation mist for inhalation lidocaine 5 % topical cream 1 applic TP QID 02/10/18 01/29/19 multivitamin 1 cap PO DAILY 02/10/18 01/29/19 spironolactone 25 mg tablet 25 mg PO DAILY 02/10/18 01/29/19 sucralfate 100 mg/mL oral 10 ml PO QID 02/10/18 01/29/19 suspension metoprolol tartrate 12.5 mg PO BID 04/12/18 01/29/19 cefpodoxime 200 mg PO BID #14 tab 01/26/19 01/29/19 lidocaine [Lidoderm] 1 patch TP DAILY #3 each 01/26/19 01/29/19 Previous Rx's Medication Instructions Recorded cefpodoxime 200 mg PO BID #14 tab 01/26/19 lidocaine [Lidoderm] 1 patch TP DAILY #3 each 01/26/19 Allergies Allergy/AdvReac Type Severity Reaction Status Date / Time No Known Allergies Allergy Verified 04/12/18 08:58 General Stated Complaint: Orthopedic ANAMIKA: 4 Review of Systems Review of Systems All systems reviewed & are unremarkable except as noted in HPI and below Constitutional Reports as per HPI, Denies chills and Denies fever(s) Eyes Denies blurry vision ENT Denies dizziness, Denies sore throat and Denies throat swelling Cardiovascular Denies chest pain and Denies dyspnea Respiratory Denies cough and Denies dyspnea Gastrointestinal Denies abdominal pain, Denies diarrhea and Denies vomiting Genitourinary Denies hematuria and Denies dysuria Musculoskeletal Reports back pain and Denies numbness Integumentary/Breasts Denies lesions and Denies rash Neurologic Denies dizziness, Denies focal weakness and Denies numbness Allergic/Immunologic Denies throat swelling PFSH Medical History Adenocarcinoma of esophagus Afib Alcohol abuse Atrial flutter CAD (coronary artery disease) Chest wall pain Chronic obstructive lung disease Coronary arteriosclerosis Diabetes mellitus Difficulty reading Diuresis (Acute) Edema Epididymitis, right Essential hypertension GERD (gastroesophageal reflux disease) GI bleed (Chronic) Hx of esophageal malignancy Hydrocele, right Hyperlipidemia Low back pain Pancreatitis Solitary pulmonary nodule Stomach cancer (Resolved) Tobacco abuse Tricuspid regurgitation Weight loss (Acute) Surgical History cardiac cath Coronary Artery Bypass Gaft (CABG) EGD - IV Sedation Esophagectomy H/O colonoscopy (Resolved 2007) H/O colonoscopy (Resolved 04/14/18) History of esophagogastroduodenoscopy (EGD) (Resolved 09/2017) History of hydrocelectomy (Resolved) History of right inguinal hernia repair (Resolved) sugrical flap of unhealing wound Family History Mother No problems noted. Father No problems noted. Social History Smoking/Tobacco Use Status: Current every day Tobacco Type: cigarettes Alcohol Intake: current Alcohol Intake frequency: 3 or more drinks per day Alcohol type: beer Drug use: Never Substance use type: does not use Do you feel safe at home: Yes Do you feel safe in your relationship?: Yes Exam Const General: cooperative and healthy appearing Orientation: alert and awake HENWA Head: normal to inspection Ears: hearing grossly normal bilaterally, external ears normal and TM's normal bilaterally General nose exam: external nose normal Face and sinus: normal facial exam Mouth: oral mucosae normal Teeth and gingiva: dentition normal Throat: posterior oropharynx normal Eyes General: appearance normal, both eyes and all related structures Eyelids: eyelids normal EOM: EOM intact bilaterally Neck Neck: normal visual inspection Lymphatic: no lymphadenopathy noted Chest Chest: normal inspection of the chest Resp Effort & Inspection: normal respiratory effort and able to speak in complete sentences Auscultation: clear to auscultation bilaterally Cardio Rate: regular rate Rhythm: regular rhythm GI Inspection: normal to inspection and distended Palpation: soft, not firm, no guarding, no hepatosplenomegaly, no masses and nontender Auscultation: normal bowel sounds Back/Spine/Pelvis Back/spine/pelvis image: 1. Tenderness to palpation. No evidence of rash, ecchymoses, erythema, edema. Skin General skin exam: no rashes or lesions noted Neuro General: alert, awake and oriented x3 Cranial Nerves: CN's II-XI intact bilaterally Cognition: normal cognition Speech: speech normal Gait: normal gait Motor: muscle tone normal throughout and strength 5/5 throughout Sensory Exam: no sensory deficits noted Other: Muscle strength 5/5 b/l upper extremities. 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 Extrem General: normal to inspection, full ROM and normal capillary refill Other: Appears to have pain right is lifting right arm. Able to lift left arm to 180 degrees. Able to left to right arm to 120 degrees with some pain in right shoulder with lifting to 180 degrees. Bilateral radial pulses intact. No ecchymosis, edema, erythema to bilateral upper extremities. Healing abrasions to bilateral upper extremities. 2+ pitting edema to bilateral lower extremities. Psych Appearance: grossly normal Mental Status: mental status grossly normal Speech and Movement: speech and movement normal Affect: normal affect Thought Process: normal Course Vital Signs Temperature 98.8 F 01/29/19 15:25 Pulse 99 H 01/29/19 15:25 Respiratory Rate 16 01/29/19 15:25 Blood Pressure 113/79 01/29/19 15:25 Pulse Oximetry 98 01/29/19 15:25 Temperature 98.8 F 01/29/19 15:25 Temperature Source Skin 01/29/19 15:25 Pulse 99 H 01/29/19 15:25 Respiratory Rate 16 01/29/19 15:25 Respiratory Effort Non-Labored 01/29/19 15:27 Blood Pressure 113/79 01/29/19 15:25 Blood Pressure Position Supine 01/29/19 15:25 Pulse Oximetry 98 01/29/19 15:25 Oxygen Delivery Method Room Air 01/29/19 15:25 Oxygen Flow Rate 0 01/29/19 15:25 Pain Level 9 01/29/19 15:28
--- NOTE | 2019-01-29 15:56 | DI.CT_ITS ---
SYMPTOM/DIAGNOSIS: S/P FALL ON TO RT SHOULDER, RT ARM WEAK NONCONTRAST HEAD CT; No intracranial hemorrhage or skull fracture is seen. The ventricles are normal in size. There are mild white matter changes consistent with microvascular disease. The sinuses and mastoid air cells appear clear. The orbits are unremarkable. IMPRESSION: No acute abnormality. CT CERVICAL SPINE: There is no evidence of fracture or subluxation. There are degenerative disc changes. There is mild anterior wedging of T-1 which appears unchanged when compared with CT of the chest from 2017. Emphysematous changes are seen at the lung apices. IMPRESSION: Degenerative changes. No acute abnormality.
[2019-01-29 16:27] LABS: Abs Immature Grans 0.02 k/cumm (0.0-0.09); Absolute Basophil Count 0.02 k/cumm (0.0-0.2); Absolute Eosinophil Count 0.19 k/cumm (0.0-0.7); Absolute Lymphocyte Count 1.18 k/cumm (1.2-3.4); Absolute Monocyte Count 0.62 k/cumm (0.11-0.7); Absolute Neutrophil Count 3.97 k/cumm (1.2-6.7); Basophils % 0.3; Eosinophils % 3.2; HCT 41.4 % (40.0-50.0); HGB 14.1 g/dL (13.5-17.5); Immature Grans % 0.3; Lymphocytes % 19.7; Mean Corp. HGB Concentration 34.1 g/dL (32.0-36.0); Mean Corpuscular Hemoglobin 32.4 pg (27.0-33.0); Mean Corpuscular Volume 95.2 fL (80-95); Mean Platelet Volume 9.8 fL (8.0-11.0); Monocytes % 10.3; Neutrophils % 66.2; Platelet Count 177 x1000/uL (130-400); RBC 4.35 m/cumm (4.50-6.00); RBC Distribution Width 15.1 % (11.8-14.1)
--- NOTE | 2019-01-29 17:05 | DI.VRAD_ITS ---
EXAM: CT Head Without Contrast EXAM DATE/TIME: 01/29/2019 3:58 PM CLINICAL HISTORY: 68 years old, male; Other: S/P fall onto R shoulder, R arm weak; Additional info: R/O cva/fracture/herniated disc TECHNIQUE: Imaging protocol: Computed tomography images of the head without contrast. Radiation optimization: All CT scans at this facility use at least one of these dose optimization techniques: automated exposure control; mA and/or kV adjustment per patient size (includes targeted exams where dose is matched to clinical indication); or iterative reconstruction. COMPARISON: CT HEAD WITHOUT CONTRAST 05/19/2017 4:23 AM FINDINGS: Brain: Mild nonspecific hypodensities of the periventricular and deep subcortical white matter, most likely secondary to chronic small vessel ischemic change. No intracranial hemorrhage or extra-axial fluid collection. No evidence of mass effect or midline shift. Irby-white matter differentiation is normal. Ventricles: Mild prominence of the ventricles and sulci, most likely attributed to parenchymal volume loss. Bones/joints: No acute osseus lesion or fracture. Sinuses: Unremarkable as visualized. Mastoid air cells: Unremarkable. Soft tissues: Unremarkable. IMPRESSION: 1. No acute intracranial pathology. 2. Other chronic findings, as above. EXAM: CT Cervical Spine Without Contrast EXAM DATE/TIME: 01/29/2019 3:58 PM CLINICAL HISTORY: 68 years old, male; Other: S/P fall onto R shoulder, R arm weak; Additional info: R/O cva/fracture/herniated disc TECHNIQUE: Imaging protocol: Computed tomography images of the cervical spine without contrast. Radiation optimization: All CT scans at this facility use at least one of these dose optimization techniques: automated exposure control; mA and/or kV adjustment per patient size (includes targeted exams where dose is matched to clinical indication); or iterative reconstruction. COMPARISON: CT HEAD WITHOUT CONTRAST 05/19/2017 4:23 AM FINDINGS: Vertebrae: Possible acute mild compression deformity of the anterior superior endplate of T2. Cervical vertebral body heights are maintained. No evidence of acute cervical spine fracture. No locked or perched facets. Multilevel facet arthropathy. The dens is intact. Atlanto-axial intervals are normal. Discs/Spinal canal/Neural foramina: Multilevel degenerative changes with intervertebral disc height loss and osteophyte formation, with multilevel areas of mild to moderate canal stenosis. Soft tissues: Unremarkable. Lungs: Emphysematous changes of the lungs. IMPRESSION: 1. No acute cervical spine fracture. 2. Possible acute mild compression deformity of the anterior superior endplate of T2. Recommend correlation with dedicated thoracic spine CT. Dictated and Authenticated by: Greg Buenrostro MD. Ordering:JULIA Malcolm MD
[2019-01-29 17:06] LABS: ALT 22 U/L (16-63); AST 21 U/L (15-37); Albumin 2.7 g/dL (3.4-5.0); Alkaline Phosphatase 120 U/L (46-116); Anion Gap 6.9 mmol/L (3-11); BUN 21 mg/dL (7-18); Bilirubin, Total 0.7 mg/dL (0.2-1.0); CO2 29.1 mmol/L (21.0-32.0); CREATININE 1.07 mg/dL (0.70-1.30); Calcium 8.8 mg/dL (8.5-10.1); Chloride 101 mmol/L (98-107); Glucose 104 mg/dL (70-100); Magnesium 1.9 mg/dL (1.8-2.4); Potassium 3.9 mmol/L (3.5-5.1); Sodium 137 mmol/L (136-145); Total Protein 6.7 g/dL (6.4-8.2); Troponin I < 0.05 ng/mL (0.00-0.06)
[2019-01-29] MEDS: Acetaminophen 325 MG TAB 650 MG PO (17:13)
--- NOTE | 2019-01-29 17:35 | DI.CT_ITS ---
SYMPTOM/DIAGNOSIS: R/O COMPRESSION DEFORMITY OF t2 CT THORACIC SPINE: There is minimal anterior wedging in an acute appearing fracture of the anterior superior end plate of T-2. There are degenerative changes at C7 T1 with mild chronic deformity of the T-1 vertebral body. End plate osteophytes are seen at the remaining levels. No posterior element fractures are seen. The central canal is widely patent. IMPRESSION: Acute fracture of the anterior superior end plate of T-2
[2019-01-29] MEDS: Lidocaine 5% Patch 1 PATCH TP (17:45)
[2019-01-29 18:22] VITALS: BP 111/72; PULSE 80; RESP 16; O2SAT 97
--- NOTE | 2019-01-29 18:35 | DI.VRAD_ITS ---
EXAM: CT Thoracic Spine Without Contrast EXAM DATE/TIME: 01/29/2019 6:18 PM CLINICAL HISTORY: 68 years old, male; Abnormal findings; Abnormal radiologic findings of thoracic; Patient HX: R/O compression deformity of t2 TECHNIQUE: Imaging protocol: Computed tomography images of the thoracic spine without contrast. COMPARISON: No relevant prior studies available. FINDINGS: Vertebrae: Mild acute compression deformities the anterior superior endplate of T2. No significant loss of height. No retropulsion. Remaining thoracic vertebral body heights are maintained. Multilevel facet arthropathy. Spinous processes are intact. Discs/Spinal canal/Neural foramina: Multilevel degenerative disc height loss and osteophyte formation. No significant areas of canal narrowing. Soft tissues: Unremarkable. Lungs: Centrilobular emphysematous changes of the lungs. Patchy airspace opacities throughout the partially visualized left lower lobe. Pleural space: Trace right pleural effusion. IMPRESSION: 1. Mild acute compression deformities the anterior superior endplate of T2. 2. Patchy airspace opacities throughout the partially visualized left lower lobe. Correlate with chest imaging. 3. Trace right pleural effusion. Dictated and Authenticated by: Greg Buenrostro MD. Ordering:JULIA Malcolm MD
[2019-01-29 19:23] VITALS: BP 109/64; PULSE 76; RESP 18; TEMP 36.7; O2SAT 98
== END 2019-01-29 19:21 | disposition home or self-care (01) ==
PROVIDERS: Emergency Provider Physician Assistant; PCP Family Medicine
DX: M79.601 Pain in right arm (principal); W19.XXXA Unspecified fall, initial encounter; S22.020A Wedge compression fracture of second thoracic vertebra, initial encounter for closed fracture; X58.XXXA Exposure to other specified factors, initial encounter; M54.12 Radiculopathy, cervical region; J44.9 Chronic obstructive pulmonary disease, unspecified; F17.210 Nicotine dependence, cigarettes, uncomplicated; I10 Essential (primary) hypertension; E11.9 Type 2 diabetes mellitus without complications; Z79.01 Long term (current) use of anticoagulants; I48.91 Unspecified atrial fibrillation
CPT/HCPCS: 36415; 80053; 93005; 99285; 70450; 72125; 72128; 83735; 84484; 85025; 93010

== ENCOUNTER 2019-02-13 00:22 | Outpatient (CLI) | payer MEDICARE, MEDICAID, SELFPAY ==
--- NOTE | 2019-02-13 13:40 | MERGE_ITS ---
*[facility]* *[facility]* [address] [place] [address] Date of study: 02/13/2019 Transthoracic Echocardiography M-mode, complete 2D, complete spectral Doppler, and color Doppler *STUDY CONCLUSIONS* Summary: 1. Left ventricle: The cavity size was normal. There was mild asymmetric hypertrophy of the septum. Systolic function was normal. The estimated ejection fraction was 55-60%. Wall motion was normal; there were no regional wall motion abnormalities. 2. Aortic valve: Moderate thickening involving the left coronary and noncoronary cusp. Valve mobility was restricted. There was very mild stenosis. Valve area (VTI): 1.9cm^2. Peak velocity ratio of LVOT to aortic valve: 0.56. 3. Mitral valve: There was mild regurgitation. 4. Left atrium: The atrium was moderately dilated. 5. Right ventricle: The cavity size was mildly to moderately dilated. Wall thickness was normal. Systolic function was normal. 6. Right atrium: The atrium was moderately dilated. 7. Tricuspid valve: There was moderate-severe regurgitation. 8. Pulmonary arteries: Pulmonary systolic pressure was increased, in the range of 40mm Hg to 50mm Hg. *PATIENT PRESENTATION* Height: 162.6cm (64in ) S/D Pressure: 92 / 65 Weight: 54.9kg (120.7lb ) BSA: 1.57m^2 Test start time: 02:00 PM. Test stop time: 03:15 PM. CONSULTING Silvina Perdue ORDERING Silvina Perdue REFERRING Silvina Perdue PERFORMING Unknown PERFORMING [facility] PROPOSAL WRITER Gabrielle Hanson RT (R)(CT), RDCS *PROCEDURE DATA* Procedure information: This study was interpreted by [facility]. Pertinent images and digital data are archived for permanent storage and are available for subsequent review. Comparison was made to the study of 02/04/2015. Study status: Routine. Transthoracic echocardiography. M-mode, complete 2D, complete spectral Doppler, and color Doppler. A Transthoracic Echocardiogram was performed. Scanning was performed from the parasternal, apical, subcostal, and suprasternal notch acoustic windows. Images were obtained using an [id number] cardiac ultrasound machine. Study completion: The patient tolerated the procedure well. There were no complications. History: PMH: Afib CAD i25.810 i48.0. *CARDIAC ANATOMY* Left ventricle: The cavity size was normal. There was mild asymmetric hypertrophy of the septum. Systolic function was normal. The estimated ejection fraction was 55-60%. Wall motion was normal; there were no regional wall motion abnormalities. The study was not technically sufficient to allow evaluation of LV diastolic dysfunction due to atrial fibrillation. Aortic valve: Trileaflet. Moderate thickening involving the left coronary and noncoronary cusp. Valve mobility was restricted. Doppler: There was very mild stenosis. There was no significant regurgitation. VTI ratio of LVOT to aortic valve: 0.6. Valve area (VTI): 1.9cm^2. Indexed valve area (VTI): 1.2cm^2/m^2. Peak velocity ratio of LVOT to aortic valve: 0.56. Valve area (Vmax): 1.8cm^2. Indexed valve area (Vmax): 1.1cm^2/m^2. Mean velocity ratio of LVOT to aortic valve: 0.6. Valve area (Vmean): 1.9cm^2. Indexed valve area (Vmean): 1.2cm^2/m^2. Mean gradient (S): 2.8mm Hg. Peak gradient (S): 4.9mm Hg. Aorta: Aortic root: The aortic root was normal in size. Mitral valve: Mildly thickened leaflets. Mobility was not restricted. Doppler: Transvalvular velocity was within the normal range. There was no evidence for stenosis. There was mild regurgitation. Peak gradient (D): 6mm Hg. Left atrium: The atrium was moderately dilated. Right ventricle: The cavity size was mildly to moderately dilated. Wall thickness was normal. Systolic function was normal. Pulmonic valve: Doppler: Transvalvular velocity was within the normal range. There was no evidence for stenosis. There was no significant regurgitation. Peak gradient (S): 2.4mm Hg. Tricuspid valve: Structurally normal valve. Doppler: Transvalvular velocity was within the normal range. There was no evidence for stenosis. There was moderate-severe regurgitation. Pulmonary artery: Pulmonary systolic pressure was increased, in the range of 40mm Hg to 50mm Hg. Right atrium: The atrium was moderately dilated. Pericardium: There was no pericardial effusion. Systemic veins: Inferior vena cava: Well visualized. The vessel was patent and normal in size. The respirophasic diameter changes were in the normal range (greater than or equal to 50%). Baseline ECG: Atrial fibrillation. Measurements Left ventricle Value Reference LV ID, ED, PLAX 3.8 cm 3.5 - 6.0 LV ID, ES, PLAX 2.7 cm 2.1 - 4.0 LV PW thickness, ED, PLAX 0.8 cm LV end-diastolic volume, 1-p A4C 50 ml LV ejection fraction, 1-p A4C 60 % LV e', lateral 0.107 m/sec LV E/e', lateral 11 LV e', medial 0.084 m/sec LV E/e', medial 15 LV e', average 0.095 m/sec LV E/e', average 13 Ventricular septum Value Reference IVS thickness, ED, PLAX 1.2 cm LVOT Value Reference LVOT ID, A-P 2.0 cm LVOT area 3.2 cm^2 LVOT peak velocity, S 0.62 m/sec LVOT mean velocity, S 0.48 m/sec LVOT VTI, S 12.6 cm LVOT peak gradient, S 1.5 mm Hg LVOT mean gradient, S 1 mm Hg Stroke volume (SV), LVOT DP 40 ml Stroke index (SV/bsa), LVOT DP 25 ml/m^2 Aortic valve Value Reference Aortic valve peak velocity, S 1.1 m/sec Aortic valve mean velocity, S 0.8 m/sec Aortic valve VTI, S 21.0 cm Aortic mean gradient, S 2.8 mm Hg Aortic peak gradient, S 4.9 mm Hg VTI ratio, LVOT/AV 0.6 Aortic valve area, VTI 1.9 cm^2 Velocity ratio, peak, LVOT/AV 0.56 Aortic valve area, peak velocity 1.8 cm^2 Velocity ratio, mean, LVOT/AV 0.6 Aortic valve area, mean velocity 1.9 cm^2 Aortic valve area/bsa, mean velocity 1.2 cm^2/m^2 Aorta Value Reference Aortic root ID, ED 3.1 cm Ascending aorta ID, A-P, S 3.4 cm Left atrium Value Reference LA ID, A-P, ES 4.0 cm LA ID/bsa, A-P (H) 2.5 cm/m^2 <=2.2 LA volume/bsa, ES, 1-p A4C 62 ml/m^2 LA volume, ES, 2-p 66 ml LA volume/bsa, ES, 2-p 42 ml/m^2 LA/aortic root ratio 1.27 Mitral valve Value Reference Mitral E-wave peak velocity 1.22 m/sec Mitral peak gradient, D 6 mm Hg Tricuspid valve Value Reference Tricuspid regurg peak velocity 3.1 m/sec Tricuspid peak RV-RA gradient 38.4 mm Hg Right atrium Value Reference RA area, ES, A4C (H) 25 cm^2 8.3 - 19.5 Pulmonic valve Value Reference Pulmonic peak gradient, S 2.4 mm Hg Legend: (L) and (H) tangela values outside specified reference range. I have personally reviewed the images and have reviewed and edited the reported findings. Electronically signed by Rolando Centeno 02/13/2019 16:46
== END 2019-02-13 00:42 ==
PROVIDERS: PCP Family Medicine; Visit Provider Family Medicine
DX: I48.91 Unspecified atrial fibrillation (principal); I25.810 Atherosclerosis of coronary artery bypass graft(s) without angina pectoris; I35.0 Nonrheumatic aortic (valve) stenosis; I36.1 Nonrheumatic tricuspid (valve) insufficiency; I51.7 Cardiomegaly
CPT/HCPCS: 93306

== ENCOUNTER 2019-04-30 08:25 | Outpatient (CLI) | payer MEDICARE, MEDICAID, SELFPAY ==
--- NOTE | 2019-04-30 12:54 | DI.RAD_ITS ---
EXAM: XR CHEST 2V PA LATERAL INDICATION: SOB R06.02, TOBACCO ABUSE F17.200. COMPARISON: CHEST 2 VIEWS PA,LAT from 03/19/2015 CT CHEST/ABD/PEL W from 01/26/2019 TECHNIQUE: 2D digital imaging was performed. FINDINGS: The heart is enlarged. Sternal wires are again noted. Emphysematous changes and chronic interstitia l changes are again noted. A portion of the stomach again projects above the diaphragm. IMPRESSION: No acute abnormality.
== END 2019-04-30 08:45 ==
PROVIDERS: PCP Family Medicine; Visit Provider Family Medicine
DX: R06.02 Shortness of breath (principal); F17.200 Nicotine dependence, unspecified, uncomplicated; I51.7 Cardiomegaly
CPT/HCPCS: 71046

== ENCOUNTER 2019-05-02 08:45 | Outpatient (CLI) | payer MEDICARE, MEDICAID, SELFPAY | END 2019-05-02 09:05 | PROVIDERS: PCP Family Medicine; Visit Provider Internal Medicine Cardiovascular Disease | DX: I25.10 Atherosclerotic heart disease of native coronary artery without angina pectoris (principal); I48.0 Paroxysmal atrial fibrillation; I10 Essential (primary) hypertension; Z95.1 Presence of aortocoronary bypass graft; I36.1 Nonrheumatic tricuspid (valve) insufficiency; J44.9 Chronic obstructive pulmonary disease, unspecified; E11.9 Type 2 diabetes mellitus without complications; F17.210 Nicotine dependence, cigarettes, uncomplicated | CPT/HCPCS: 99204; 99215; 93005; 93010 ==

== ENCOUNTER 2019-05-04 01:51 | Outpatient (CLI) | payer MEDICARE, MEDICAID, SELFPAY | END 2019-05-04 02:11 | PROVIDERS: PCP Family Medicine; Visit Provider Family Medicine | DX: J44.9 Chronic obstructive pulmonary disease, unspecified (principal) ==

== ENCOUNTER 2019-07-25 12:40 | Outpatient (REF) | payer MEDICARE, MEDICAID, SELFPAY ==
[2019-07-25 20:28] LABS: HCT 40.6 % (40.0-50.0); HGB 13.8 g/dL (13.5-17.5); Mean Corpuscular Hemoglobin 33.4 pg (27.0-33.0); Mean Corpuscular Volume 98.3 fL (80-95); Mean Platelet Volume 9.8 fL (8.0-11.0); Platelet Count 399 x1000/uL (130-400); RBC 4.13 m/cumm (4.50-6.00); RBC Distribution Width 15.3 % (11.8-14.1); White Blood Cell Count 7.68 k/cumm (4.4-10.8)
[2019-07-25 20:39] LABS: ALT 37 U/L (16-63); AST 29 U/L (15-37); Albumin 3.3 g/dL (3.4-5.0); Alkaline Phosphatase 254 U/L (46-116); Anion Gap 7.3 mmol/L (3-11); Bilirubin, Total 0.7 mg/dL (0.2-1.0); CO2 30.7 mmol/L (21.0-32.0); Calcium 9.2 mg/dL (8.5-10.1); Chloride 96 mmol/L (98-107); Glucose 90 mg/dL (74-106); Sodium 134 mmol/L (136-145); Total Protein 7.9 g/dL (6.4-8.2)
[2019-07-25 20:45] LABS: BUN 47 mg/dL (7-18)
[2019-07-25 21:04] LABS: Hemoglobin A1C 5.9 % (3.8-5.6)
== END 2019-07-25 13:00 ==
LOC: NCHCN 12:40
PROVIDERS: PCP Family Medicine; Visit Provider Family Medicine
DX: I10 Essential (primary) hypertension (principal); E11.9 Type 2 diabetes mellitus without complications; R60.9 Edema, unspecified
CPT/HCPCS: 80053; 85027; 83036

== ENCOUNTER 2020-01-15 11:31 | Emergency (ER) | payer MEDICARE, MEDICAID, SELFPAY ==
[2020-01-15] VITALS (7 sets, daily range): BP systolic 108–141; BP diastolic 73–117; PULSE 66–96; RESP 12–18; TEMP 36.6; O2SAT 88–97
--- NOTE | 2020-01-15 11:45 | RT.EKG_ITS ---
APPROVED REPORT Exam: Resting ECG Patient Location: E HR:79 bpm ECG Measurements Heart Rate 79 AXIS MO [id number] P [id number] QRSd 78 QRS 59 QT 400 T 6 QTc 458 Conclusion Atrial fibrillation. No acute ST/T wave ischemic findings.
[2020-01-15 12:05] LABS: Abs Immature Grans 0.06 10^3/uL (0.0-0.06); Absolute Basophil Count 0.02 10^3/uL (0.0-0.2); Absolute Eosinophil Count 0.22 10^3/uL (0.0-0.7); Absolute Lymphocyte Count 1.28 10^3/uL (1.2-3.4); Absolute Monocyte Count 0.75 10^3/uL (0.1-0.8); Absolute Neutrophil Count 6.11 10^3/uL (1.2-6.7); Basophils % 0.2; Eosinophils % 2.6; HCT 39.8 % (40.0-50.0); HGB 12.4 g/dL (13.5-17.5); Immature Grans % 0.7; Lymphocytes % 15.2; MCHC 31.2 % (32.0-36.0); MCV 96.1 fL (80-95); MPV 9.5 fL (8.0-11.0); Monocytes % 8.9; Neutrophils % 72.4; Nucleated RBC 0 %; Platelet Count 240 10^3/uL (130-400); RBC 4.14 10^6/uL (4.36-5.78); RDW-SD 56.7 fL; WBC 8.44 10^3/uL (4.4-10.8)
--- NOTE | 2020-01-15 12:15 | DI.CT_ITS ---
EXAM: CT CHEST/ABD/PEL W CLINICAL HISTORY: SOB, CHF, Abdominal mass, hx of CA TECHNIQUE: Imaging Protocol: Axial computed tomography images with coronal and sagittal reformatted images were created and reviewed CONTRAST MATERIAL: Intravenous: Omnipaque 350 Contrast volume:100 mL Oral: yes / no COMPARISON: CT CHEST WITH CONTRAST from 06/29/2016 CT CHEST WITHOUT CONTRAST from 04/08/[address] CHEST/ABD/PEL W from 01/26/2019 FINDINGS: CHEST: Tracheobronchial tree: Patent where visualized. Mediastinum and Mikki: Stable mediastinal and hilar lymph nodes. S/p partial esophagectomy and gastri c pull-up. Pulmonary parenchyma: Moderate centrilobular emphysema. Pulmonary fibrosis. Overall there is an imp rovement in the pulmonary densities. No focal consolidating infiltrates are seen. Pleura: There is a new small right pleural effusion. No pneumothorax or left pleural effusion. Heart: Cardiomegaly. Moderate coronary artery calcification. No pericardial effusion. Aorta: Thoracic aorta non-dilated. Atherosclerosis. Lymph nodes: Stable mediastinal and hilar lymph nodes. Bones:Sternotomy. Degenerative changes in the spine. Thyroid gland. Multiple small thyroid nodules are seen. Nonemergent thyroid ultrasound may be obtai margarito for further evaluation. Soft tissues: Unremarkable. ABDOMEN: Liver: There is again seen an area of decreased attenuation in the right lobe of the liver. It is un changed compared to the prior examination. No measurable mass. Portal, Superior Mesenteric, and Splenic Veins: Unremarkable. Gallbladder and Biliary Tract: No cholelithiasis. Mild dilatation of the bile ducts. Pancreas: There are calcifications again seen in the head of the pancreas which may be sequelae of pr ior pancreatitis. Mild atrophy of the pancreatic tail is noted. Spleen: Spleen is unchanged in appearance. Adrenals: Stable bilateral adrenal nodules. Kidneys: Normal size, contour and axis. No radiodense stones or obstructive uropathy. No masses seen. Abdominal Aorta: Abdominal portion non-dilated. Atherosclerosis. Bowel: No evidence of obstruction. Large amount of stool in the colon. Mild wall thickening seen in the distal descending colon and sigmoid colon. Colonic diverticulosis is present in this region. Peritoneal Cavity: No ascites, collection or mesenteric inflammatory response. Lymph Nodes: Within normal limits. Bones: Degenerative changes. No aggressive osseous lesions. Soft Tissues: Unremarkable. PELVIS: Bladder: Symmetric distention, no gross wall thickening. Reproductive Organs: Enlarged prostate gland. Lymph Nodes: Within normal limits. Bones: Please see above. IMPRESSION: 1. Mild wall thickening seen in the distal descending colon and sigmoid colon with associated diverti cula. This may represent a mild colonic diverticulitis. Please correlate clinically. 2. New small right pleural effusion. 3. Improved pulmonary densities compared to the prior examination. 4. COPD and pulmonary fibrosis. 5. Stable abdominal and pelvic organs findings 6. Constipation. 7. The findings were discussed with the emergency department on the date of the examination. RADIATION DOSE DELIVERED: 1,210.76mGy.cm Total DLP DATA REPOSITORY: All CT scans at this facility are submitted to the National Radiology Data Registry (NRDR) Dose Index Registry (DIR) with the [employer] ([employer]). RADIATION OPTIMIZATION: All CT scans at this facility use at least one of these dose optimization te chniques: automated exposure control; mA and/or kV adjustment per patient size (includes targeted exa ms where dose is matched to clinical indication); or iterative reconstruction.
--- NOTE | 2020-01-15 12:22 | ED.GENADUL_ITS ---
Discharge Plan Disposition Patient Disposition: HOME Condition: Stable Discharge Details Chief Complaint: GenMedical Clinical Impression: Congestive heart failure (CHF) Primary Care Provider: Silvina Perdue ED Provider: Noemi Gloria Home Meds and New Rx's Prescriptions: New bumetanide 2 mg tablet 2 mg PO BID Qty: 20 RF: 0 spironolactone 50 mg tablet 50 mg PO DAILY Qty: 10 RF: 0 Continued sucralfate [Carafate] 100 mg/mL suspension 10 ml PO QID RF: 0 lidocaine 5 % cream 1 applic TP QID RF: 0 multivitamin capsule 1 cap PO DAILY RF: 0 Combivent Respimat 20-100 mcg/actuation mist 1 puff IH Q6H RF: 0 folic acid 1 MG tablet 1 mg PO DAILY RF: 0 bupropion HCl (smoking deter) 150 MG tablet extended release 12 hr 150 mg PO BID RF: 0 aspirin [Ecotrin Low Strength] 81 MG tablet,delayed release (DR/EC) 81 mg PO DAILY RF: 0 atorvastatin [Lipitor] 10 MG tablet 10 mg PO HS RF: 0 Spiriva with HandiHaler 18 MCG capsule, w/inhalation device 2 puff Inhalation DAILY RF: 0 nitroglycerin [Nitrostat] 0.4 MG tablet, sublingual 0.4 mg Sublingual . DIRECTED PRN (Reason: Chest Pain) RF: 0 cholecalciferol (vitamin D3) 1,000 UNITS tablet 2,000 units PO DAILY RF: 0 gabapentin 300 mg capsule 300 mg PO TID RF: 0 Ensure Original Liquid See Rx Instructions .ROUTE .COMPLEX RF: 0 pantoprazole 40 MG tablet,delayed release (DR/EC) 40 mg PO DAILY RF: 0 hydrocodone-acetaminophen 10-325 mg tablet 1 tab PO TID RF: 0 metoprolol tartrate 25 mg Tablet 12.5 mg PO BID RF: 0 Discontinued spironolactone 25 mg tablet 50 mg PO DAILY RF: 0 furosemide 40 mg tablet 80 mg PO BID RF: 0 Discharge Instructions Instructions: Heart Failure (ED) Additional Instructions: You are offered admission which you have declined. Your symptoms are most consistent with an exacerbation of congestive heart failure. Please elevate your lower extremities as much as possible. Please continue with Vinod wraps to help with swelling. Medication adjustments have been made. You are to stop your Lasix and begin the Bumex as prescribed. Please begin the changed dosing of the spironolactone. We have scheduled you for an outpatient echo, we will reach out to you with appointment. Meals on Wheels is being set up with our care management. Please contact your primary care provider tomorrow to schedule close follow-up appointment. If you develop chest pain, shortness of breath, difficulty breathing, fever/chills or other new/worsening symptoms please seek care urgently once again. Referrals: Silvina Perdue MD [Primary Care Provider] - Discharge Data Discharge Date/Time-TO BE ENTERED AT DEPARTURE: 01/15/20 17:16 Medical Decision Making <Carli Simpson - Last Filed: 01/16/20 08:07> 69-year-old male presents to the ER with chief complaint of increased leg swelling and an approximate 10 pound weight gain x3 weeks. He does have a history of CHF and coronary artery bypass, he is in no acute respiratory distress upon initial exam. He does take Lasix twice daily. 80 milligrams a.m. and 40 mg at noon. He also has spironolactone 25 mg tablets daily on his med list, he denies any chest pain does have mild mild shortness of breath with exertion. He has 3+ pitting edema noted to his right lower extremity and 2+ pitting edema noted to his left lower extremity. He is alert and oriented has mild kyphosis noted, he also has a large abdominal palpable mass noted to his left upper quadrant. He does have a vertical healed surgical scar scar. Has a history of adenocarcinoma esophagus, A. fib, coronary artery disease, COPD, diabetes mellitus, hypertension, GERD, hyperlipidemia, pancreatitis, surgical history includes cardiac cath, coronary artery bypass graft, with a report of colon resection. This time work-up ordered including CBC, CMP, troponin, BNP, chest abdomen pelvis CT. Sodium is 133, potassium 4.1, chloride 97, anion gap is 5.3, BUN is 25, creatinine is 1.35, GFR is 52.40, proBNP is 7881 which is up from his previous level of 1000 in 2013. Patient does take a total of 120 mg of furosemide daily p.o. 40 mg furosemide IV ordered. EKG was reviewed by Yun Rosas MD ER attending, please see her official reading, noted to have atrial fibrillation old is available for review largely unchanged. 1410: Spoke with Dr. Orozco radiologist regarding CT chest abdomen pelvis, he reports small right pleural effusion which is new, emphysema type changes, does have some dilated bowel with no obstruction, some swelling around his sigmoid colon possibly diverticular diverticulitis that is questionable. Otherwise nothing acute. Spoke with medical staff assistant 1412, approximately 800 mL urine output since administering Lasix. CT CT CHEST/ABD/PEL W from 01/26/2019 FINDINGS: CHEST: Tracheobronchial tree: Patent where visualized. Mediastinum and Mikki: Stable mediastinal and hilar lymph nodes. S/p partial esophagectomy and gastric pull-up. Pulmonary parenchyma: Moderate centrilobular emphysema. Pulmonary fibrosis. Overall there is an improvement in the pulmonary densities. No focal consolidating infiltrates are seen. Pleura: There is a new small right pleural effusion. No pneumothorax or left pleural effusion. Heart: Cardiomegaly. Moderate coronary artery calcification. No pericardial effusion. Aorta: Thoracic aorta non-dilated. Atherosclerosis. Lymph nodes: Stable mediastinal and hilar lymph nodes. Bones:Sternotomy. Degenerative changes in the spine. Thyroid gland. Multiple small thyroid nodules are seen. Nonemergent thyroid ultrasound may be obtained for further evaluation. Soft tissues: Unremarkable. ABDOMEN: Liver: There is again seen an area of decreased attenuation in the right lobe of the liver. It is unchanged compared to the prior examination. No measurable mass. Portal, Superior Mesenteric, and Splenic Veins: Unremarkable. Gallbladder and Biliary Tract: No cholelithiasis. Mild dilatation of the bile ducts. Pancreas: There are calcifications again seen in the head of the pancreas which may be sequelae of prior pancreatitis. Mild atrophy of the pancreatic tail is noted. Spleen: Spleen is unchanged in appearance. Adrenals: Stable bilateral adrenal nodules. Kidneys: Normal size, contour and axis. No radiodense stones or obstructive uropathy. No masses seen. Abdominal Aorta: Abdominal portion non-dilated. Atherosclerosis. Bowel: No evidence of obstruction. Large amount of stool in the colon. Mild wall thickening seen in the distal descending colon and sigmoid colon. Colonic diverticulosis is present in this region. Peritoneal Cavity: No ascites, collection or mesenteric inflammatory response. Lymph Nodes: Within normal limits. Bones: Degenerative changes. No aggressive osseous lesions. Soft Tissues: Unremarkable. PELVIS: Bladder: Symmetric distention, no gross wall thickening. Reproductive Organs: Enlarged prostate gland. Lymph Nodes: Within normal limits. Bones: Please see above. IMPRESSION: 1. Mild wall thickening seen in the distal descending colon and sigmoid colon with associated diverticula. This may represent a mild colonic diverticulitis. Please correlate clinically. 2. New small right pleural effusion. 3. Improved pulmonary densities compared to the prior examination. 4. COPD and pulmonary fibrosis. 5. Stable abdominal and pelvic organs findings 6. Constipation. 7. The findings were discussed with the emergency department on the date of the examination. 1426: Discussed recommendation for admission for worsening CHF and pleural effusion with patient, he is currently using a urinal once again. 1441: Spoke with Norm Mayberry who is on-call for hospitalist at this time regarding possible admission versus discharge home, she agrees to come down and evaluate patient at bedside for consult and possible medication changes in managing this as an outpatient. 1500: Dr. Noland at bedside for patient evaluation, patient does not wish to be admitted at this time. She does recommend bilateral lower extremity Doppler to rule out DVT, changing the Lasix to Bumex 2 mg p.o. twice daily, increasing the spironolactone to 50 mg a day and scheduling for an outpatient echocardiogram and follow-up with PCP. She also mentioned patient would benefit from home health care if eligible. Will discuss with care management. 1513: Discussed with into a care management who is going to come evaluate patient discuss outpatient services such as Meals on Wheels and community connections. 1611: Care is to be handed off to Noemi HASSAN pending ultrasound venous Doppler results and discharge home. Discussed patient case and details with Noemi, verbalizes understanding. <SONYA Herrera - Last Filed: 01/18/20 22:23> Care transition myself from Johanne Dunham NP, with DVT studies pending. Please see her initial note for presentation and history. In brief, patient is a pleasant 69-year-old gentleman who presents today with chief complaint of bilateral lower extremity edema. Patient was found to be in CHF and was given diuresis while here. Ms. Dunham had spoken with the hospitalist regarding admission and the patient had declined. Hospitalist had recommended medication adjustments as well as imaging to ensure no DVT contributing to his bilateral lower extremity edema. Ultrasound was reviewed by radiologist: FINDINGS: Right deep veins: Unremarkable. The common femoral, femoral, proximal profunda femoral and popliteal veins are patent without thrombus. Normal Doppler waveforms. Normal compressibility and/or augmentation response. Right superficial veins: Saphenofemoral junction is patent without thrombus. Left deep veins: Unremarkable. The common femoral, femoral, proximal profunda femoral and popliteal veins are patent without thrombus. Normal Doppler waveforms. Normal compressibility and/or augmentation response. Left superficial veins: Saphenofemoral junction is patent without thrombus. Soft tissues: Bilateral ankle region soft tissue edema. IMPRESSION: No evidence of deep vein thrombosis. Discussed with the patient. Again, we discussed inpatient admission which patient continues to decline. He does seem appropriate able to make this decision. We will change medications as was advised by hospitalist. I did reiterate these to the patient once again. He will stop his Lasix and begin Bumex. Spironolactone dose was also increased. Outpatient echocardiogram has been ordered. Care management has been involved and Meals on Wheels is set up for the patient. I did encourage close follow-up with primary care. Strict return precautions was given. Patient is aware that he may return anytime for further evaluation and work-up. All his questions and concerns were addressed and he is in agreement this plan. HPI <Carli Simpson - Last Filed: 01/16/20 08:07> General Mode of arrival: ambulatory . Date/Time Provider Initiated Documentation: 01/15/20 11:50 . Limitations to Documentation: no limitations . Information obtained by: patient . HPI Narrative: 69-year-old male presents to the ER with chief complaint of increased leg swelling and an approximate 10 pound weight gain x3 weeks. He does have a history of CHF and coronary artery bypass, he is in no acute respiratory distress upon initial exam. He does take Lasix twice daily. 80 milligrams a.m. and 40 mg at noon. He also has spironolactone 25 mg tablets daily on his med list, he denies any chest pain does have mild shortness of breath with exertion. He has 4+ pitting edema noted to his right lower extremity and 3+ pitting edema noted to his left lower extremity. He is alert and oriented has mild kyphosis noted, he also has a large abdominal palpable mass noted to his left upper quadrant. He does have a vertical healed surgical scar scar. Has a history of adenocarcinoma esophagus, A. fib, coronary artery disease, COPD, diabetes mellitus, hypertension, GERD, hyperlipidemia, pancreatitis, surgical history includes cardiac cath, coronary artery bypass graft, with a report of colon resection. Related Data Home Medications Medication Instructions Recorded Confirmed bupropion HCl (smoking deter) 150 mg PO BID 08/04/12 01/15/20 folic acid 1 mg PO DAILY 08/04/12 01/15/20 aspirin [Ecotrin Low Strength] 81 mg PO DAILY 04/09/13 01/15/20 Spiriva with HandiHaler 2 puff INHALATION DAILY 01/25/15 01/15/20 atorvastatin [Lipitor] 10 mg PO HS 01/25/15 01/15/20 cholecalciferol (vitamin D3) 2,000 units PO DAILY 04/12/16 01/15/20 nitroglycerin [Nitrostat] 0.4 mg SUBLINGUAL . DIRECTED PRN 04/12/16 01/15/20 pantoprazole 40 mg PO DAILY 01/15/17 01/15/20 lidocaine 5 % topical cream 1 applic TP QID 02/10/18 01/15/20 multivitamin 1 cap PO DAILY 02/10/18 01/15/20 sucralfate 100 mg/mL oral 10 ml PO QID 02/10/18 01/15/20 suspension metoprolol tartrate 12.5 mg PO BID 04/12/18 01/15/20 hydrocodone 10 mg-acetaminophen 1 tab PO TID 05/02/19 01/15/20 325 mg tablet ipratropium 20 mcg-albuterol 100 1 puff IH Q6H 05/02/19 01/15/20 mcg/actuation mist for inhalation Ensure Original See Rx Instructions .ROUTE .COMPLEX 01/15/20 01/15/20 bumetanide 2 mg PO BID #20 tab 01/15/20 gabapentin 300 mg PO TID 01/15/20 01/15/20 spironolactone 50 mg PO DAILY #10 tab 01/15/20 Previous Rx's Medication Instructions Recorded bumetanide 2 mg PO BID #20 tab 01/15/20 spironolactone 50 mg PO DAILY #10 tab 01/15/20 Allergies Allergy/AdvReac Type Severity Reaction Status Date / Time No Known Allergies Allergy Verified 01/15/20 11:44 General Stated Complaint: GenMedical ANAMIKA: 3 Review of Systems <Carli Simpson - Last Filed: 01/16/20 08:07> Narrative: Constitutional: Negative for weight loss, alert and oriented, well groomed, normal body habitus, appears comfortable. Positive 10 pound weight gain over last 3 weeks. HEENT: Denies trauma, headaches, blurry vision, nasal discharge, sore throat, trouble swallowing. Chest: Denies chest pain, palpitations, irregular rhythm, Respiratory: Denies, cough, hemoptysis. Positive exertional shortness of breath GI: Denies abdominal pain, nausea, vomiting, diarrhea, constipation. : Denies dysuria, hematuria, flank pain, rectal bleeding. Extremities: 4+ pitting edema noted to his right lower extremity, 3+ pitting edema noted in his left lower extremity right greater than left. Neuro: Denies dizziness, blurry vision, weakness, syncope, headache or facial numbness. Hematologic: Denies easy bruising, intolerance to heat or cold, hair loss. [facility] <Carli Simpson - Last Filed: 01/16/20 08:07> Medical History Adenocarcinoma of esophagus Afib Alcohol abuse Atrial flutter CAD (coronary artery disease) Chest wall pain Chronic obstructive lung disease Coronary arteriosclerosis Diabetes mellitus Difficulty reading Diuresis (Acute) Edema Epididymitis, right Essential hypertension GERD (gastroesophageal reflux disease) GI bleed (Chronic) Hx of esophageal malignancy Hydrocele, right Hyperlipidemia Hypertension (Chronic) Low back pain Pancreatitis Solitary pulmonary nodule Stomach cancer (Resolved) Tobacco abuse Tricuspid regurgitation Weight loss (Acute) Surgical History cardiac cath Coronary Artery Bypass Gaft (CABG) EGD - IV Sedation Esophagectomy H/O colonoscopy (Resolved 2007) H/O colonoscopy (Resolved 04/14/18) dr geller, sigmoid diverticulosis, repeat 10 years History of esophagogastroduodenoscopy (EGD) (Resolved 09/2017) History of hydrocelectomy (Resolved) History of right inguinal hernia repair (Resolved) repair times two sugrical flap of unhealing wound Family History Mother No problems noted. Father No problems noted. Social History Smoking/Tobacco Use Status: Current every day Tobacco Type: cigarettes Smoking packs per day: 1 Smoking cigarettes per day: 20.0 Years smoked: 50 Smoking pack- years: 50.00 Alcohol Intake: current Alcohol Intake frequency: 3 or more drinks per day Alcohol type: beer Drug use: Never Substance use type: does not use What type of physical activity do you participate in: none Do you feel safe at home: Yes Do you feel safe in your relationship?: Yes Exam <Carli Simpson - [facility] Filed: 01/16/20 08:07> Narrative Exam Narrative: Constitutional: Alert and oriented x3. Appears stated age. Normal body habitus. Head: Normocephalic, no trauma. Eyes: Pupils PERRLA, Red reflex noted, EOM's intact. Eyelids symmetrical without lesions, discharge, or swelling. ENT: Bilateral TM's WNL, External ear normal to inspection, no mastoid TTP, swelling, or erythema, Nasal turbinates WNL, no nasal discharge. Normal dentition, Posterior pharynx WNL, no exudate. Chest: RRR, muffled S1, S2, distal pulses intact. Resp: , no wheezes, expiratory Rales noted bilaterally. Abdomen: Does have a vertical midline surgical scar noted, he has a large palpable mass noted to his left upper quadrant which is firm, patient states that this has been there in the past and had gone away and had popped back out again, it is at least greater than 15 cm in length. Musculoskeletal: Normal gait, 5/5 strength to all four extremities. 4+ pitting edema bilateral lower extremities right greater than left. Skin: No suspicious rashes or lesions. Capillary refill less than 2 sec. Neurologic: Cranial nerves II-XII intact. Alert and oriented x 3. DTR's intact. Hematologic/Lymphatic: No ecchymosis, no lymphadenopathy. Course <Carli Simpson - [facility] Filed: 01/16/20 08:07> Vital Signs Vital signs: Vital Signs Temperature 36.6 C 01/15/20 11:40 Pulse 80 01/15/20 11:40 Respiratory Rate 18 01/15/20 11:40 Blood Pressure 121/79 01/15/20 11:40 Pulse Oximetry 96 01/15/20 11:40 Temperature 36.6 C 01/15/20 11:40 Temperature Source Skin 01/15/20 11:40 Pulse 80 01/15/20 11:40 Respiratory Rate 18 01/15/20 11:40 Blood Pressure 121/79 01/15/20 11:40 Blood Pressure Position Sitting 01/15/20 11:40 Pulse Oximetry 96 01/15/20 11:40 Oxygen Delivery Method Room Air 01/15/20 11:40 Oxygen Flow Rate 0 01/15/20 11:40 Lab/Test Results Lab/Test Results: Laboratory Tests Range/Units 01/15/20 11:55 WBC (4.4-10.8) 10^3/uL 8.44 RBC (4.36-5.78) 10^6/uL 4.14 L Hgb (13.5-17.5) g/dL 12.4 L Hct (40.0-50.0) % 39.8 L MCV (80-95) fL 96.1 H MCH (27.0-33.0) pg 30.0 MCHC (32.0-36.0) % 31.2 L RDW (11.8-14.1) % 16.0 H Plt Count (130-400) 10^3/uL 240 MPV (8.0-11.0) fL 9.5 Immature Gran % 0.7 Neutrophils % 72.4 Lymphocytes % 15.2 Monocytes % 8.9 Eosinophils % 2.6 Basophils % 0.2 Absolute Neutrophils (1.2-6.7) 10^3/uL 6.11 Absolute Lymphocytes (1.2-3.4) 10^3/uL 1.28 Absolute Monocytes (0.1-0.8) 10^3/uL 0.75 Absolute Eosinophils (0.0-0.7) 10^3/uL 0.22 Absolute Basophils (0.0-0.2) 10^3/uL 0.02 Sign Out <Carli Simpson - Last Filed: 01/16/20 08:07> Sign Out Data: Sign Out Comment: Pending bilateral lower extremity venous Doppler to rule out DVT. Recommended prescription for Bumex 2 mg p.o. twice daily instead of Lasix per Dr. Mayberry Increasing spironolactone to 50 mg daily Scheduling outpatient stress echo and close follow-up with PCP Wrapping bilateral lower extremities after negative ultrasound with Vinod wrap for edema Care management working on home health care and Meals on Wheels Last updated by Carli Simpson at 01/15/20 16:04
[2020-01-15 12:32] LABS: ALT 22 U/L (16-63); AST 24 U/L (15-37); Albumin 3.3 g/dL (3.4-5.0); Alkaline Phosphatase 173 U/L (46-116); Anion Gap 5.3 mmol/L (3-11); BUN 25 mg/dL (7-18); Bilirubin, Total 0.7 mg/dL (0.2-1.0); CO2 30.7 mmol/L (21.0-32.0); CREATININE 1.35 mg/dL (0.70-1.30); Chloride 97 mmol/L (98-107); Glucose 102 mg/dL (74-106); Magnesium 2.2 mg/dL (1.8-2.4); NT-proBNP 7881 pg/mL (<300); Potassium 4.1 mmol/L (3.5-5.1); Sodium 133 mmol/L (136-145); Total Protein 8.3 g/dL (6.4-8.2); Troponin I < 0.05 ng/mL (<0.06)
[2020-01-15] MEDS: Furosemide 40 MG/4 ML VIAL IVP (12:52)
[2020-01-15] MEDS: Omnipaque 350 MG/ML 100 ML BTL IJ (13:05)
--- NOTE | 2020-01-15 15:05 | PDOC.HHF2F_ITS ---
Home Health Certification Home Health Certification: 1. Encounter Date and Reason I certify that ANDREW MABRY was seen by Shakila Mayberry on 01/15/20 for CHF exacerbation and that I had a [id number] encounter with this patient that meets the physician face to face encounter requirements. 2. Clinical Findings Supporting Skilled Need and Homebound Status I certify that home health services are medically necessary, include either intermittent care home and/or physical/speech therapy, and that this patient is homebound in that absences from the home require considerable and taxing effort and are infrequent or of short duration, or are attributable to the need to receive medical care. [X] (a) Attached documentation from encounter provides clinical findings supporting skilled need and homebound status (including what assistance patient requires to leave the home). The encounter with the patient was in whole, or in part, for the following medical condition, which is the primary reason for home health care: Long-Term: CHF, assess medication compliance/perform teaching [employer] MACHINE: assess needs for resources in the community Homebound: unable to leave home without assistance 3. Certification and Authentication I certify that I composed the above information based on my clinical judgement relating to this patient's medical condition and, if applicable, clinical findings communicated to me by the NPP or inpatient physician who performed the Home Health Referral. All further orders will be obtained through ____Dr Silvina Perdue (Community Based Physician - PCP)
--- NOTE | 2020-01-15 15:07 | MCONE_ITS ---
Date of service: 01/15/20 Time of Service: 15:07 Assessment and Plan Assessment and plan (1) Bilateral lower extremity edema: Status: Acute Assessment and plan: likely multifactorial, due to acute exacerbation of CHF, severe tricuspid regurgitation, pulmonary hypertension, and noncompliance with salt restriction. Since the patient does not want to be admitted, my recommendations are 1. R/o DVT with a venous doppler of BLEs 2. Switch the patient's lasix to bumex 2mg PO BID with increase of aldactone to 50 mg daily. 3. I have sent a referral for home health nursing. 4. He would benefit from a repeat outpatient echo. 5. I spoke with care management about setting the patient up with meals on wheels and home health. 6. Assuming his venous dopplers are negative, he would benefit from compression of BLEs with either TEDs or nas wraps. 7. He needs a close follow up with his PCP. 8. Will need outpatient ischemic workup 8. Consider palliative care. I did attempt to convince the patient to stay, but he prefers not to. He does promise to come back to the hospital if the swelling does not get better or gets worse. (2) Acute on chronic diastolic (congestive) heart failure: Status: Acute Assessment and plan: As above (3) Pulmonary hypertension: Status: Chronic Assessment and plan: As above (4) Tricuspid regurgitation: Status: Chronic Assessment and plan: As above Previously refused intervention (5) CAD (coronary artery disease): Status: Chronic Assessment and plan: S/p CABG 20 years ago. Troponins are negative x2. Given worsening of CHF, the patient could benefit from outpatient ischemic workup. (6) Afib: Status: Chronic Assessment and plan: Rate controlled. The patient is not sure if he is on a blood thinner. He used to be, per Dr Diamond's records. I do not see it in his current medication list. PCP to follow up on this as I do see that he has a h/o GI bleeding listed in his chart. History of Present Illness History of Present Illness Chief Complaint: leg swelling Narrative: Mr Kang is a 69 year old male with PMHx of CHFpEF (EF of 55-60%) as well as pulmonary hypertension with RVSP of 40-50 mmHg on echo from 02/2019, severe tricuspid regurgitation, for which he had previously refused intervention, Afib (he does not know if he is on anticoagulation), CAD s/p CABG in 2000 at [facility] [place], HTN, hyperlipidemia, who presented to [facility] ED today complaining of BLE swelling x 3 weeks to the point that no shoes fit. He states he may have had some shortness of breath, but he does not have orthopnea/PND. He only walks short distances and has not had any LOVE. He denies fevers, chest pains, endorses his chronic smoker's cough. Denies palpitations. He states that he does not read too well. While he tried to decrease salt intake in his diet, he says he eats whatever he can get, which includes canned foods and frozen foods. He is not counting how much sodium he eats. He requests meals on wheels. He does not want to be admitted, but promises to follow up for an echo and with his PCP. He has had home health before, but does not have one now. He is open to that idea. He states he currently takes 80 mg of lasix in the morning and 40 in the evening. He states he wakes up at least 3 times/night to urinate. He states he has been taking his medications as prescribed. He cannot tell me what the rest of his medications are. Per Dr Diamond's note from 05/02/2019, the patient was still taking eliquis. Hospitalists were consulted for recommendations on his CHF therapy on discharge. Review of Systems All systems reviewed & are unremarkable except as noted in HPI and below PFSH Medical History Adenocarcinoma of esophagus Afib Alcohol abuse Atrial flutter CAD (coronary artery disease) Chest wall pain Chronic obstructive lung disease Coronary arteriosclerosis Diabetes mellitus Difficulty reading Diuresis (Acute) Edema Epididymitis, right Essential hypertension GERD (gastroesophageal reflux disease) GI bleed (Chronic) Hx of esophageal malignancy Hydrocele, right Hyperlipidemia Hypertension (Chronic) Low back pain Pancreatitis Solitary pulmonary nodule Stomach cancer (Resolved) Tobacco abuse Tricuspid regurgitation Weight loss (Acute) Surgical History cardiac cath Coronary Artery Bypass Gaft (CABG) EGD - IV Sedation Esophagectomy H/O colonoscopy (Resolved 2007) H/O colonoscopy (Resolved 04/14/18) dr geller, sigmoid diverticulosis, repeat 10 years History of esophagogastroduodenoscopy (EGD) (Resolved 09/2017) History of hydrocelectomy (Resolved) History of right inguinal hernia repair (Resolved) repair times two sugrical flap of unhealing wound Family History Mother No problems noted. Father No problems noted. Social History Smoking/Tobacco Use Status: Current every day Tobacco Type: cigarettes Smoking packs per day: 1 Smoking cigarettes per day: 20.0 Years smoked: 50 Smoking pack- years: 50.00 Alcohol Intake: current Alcohol Intake frequency: 3 or more drinks per day Alcohol type: beer Drug use: Never Substance use type: does not use What type of physical activity do you participate in: none Do you feel safe at home: Yes Do you feel safe in your relationship?: Yes Exam Narrative Exam Narrative: General: Pleasant elderly male who does not make good eye contact, A&Ox3, has a cough, but no signs of respiratory distress or increased work of breathing, even while wearing a mask Neurological: A&Ox3, no focal deficits Psychiatric: Appropriate speech pattern and content Skin: Chronic venous stasis changes in skin of BLEs; there appears to be a slight erythema on the dorsal surface of his R foot which could be a blister from his laces rubbing, as the patient had described HEENT: Atraumatic, normocephalic, EOMI, MMM, +JVD, no goiter Cardiovascular: Irregularly irregular rhythm, + quiet JENNIFER Lungs: Rales at B bases which most clear with coughing Gastrointestinal: soft, has a well healed midline incision and a LUQ incision where he does appear to have a protruberance, nontender to palpation - not hernia Genitourinary: deferred Extremities: 4+ BLE pitting edema to knees. No wounds on feet except the slight erythema on R foot from friction, pulses are impossible to palpate due to edema Results Last Vital Signs Temp 36.6 C 01/15/20 11:40 Pulse 78 01/15/20 12:56 Resp 12 01/15/20 14:11 BP 112/80 01/15/20 14:11 Pulse Ox 94 L 01/15/20 14:26 Labs Result diagrams: 01/15/20 11:55 01/15/20 11:55 Labs: Laboratory Results - last 24 hr 01/15/20 01/15/20 11:55 11:55 WBC 8.44 RBC 4.14 L Hgb 12.4 L Hct 39.8 L MCV 96.1 H MCH 30.0 MCHC 31.2 L RDW 16.0 H Plt Count 240 MPV 9.5 Immature Gran % 0.7 Neutrophils % 72.4 Lymphocytes % 15.2 Monocytes % 8.9 Eosinophils % 2.6 Basophils % 0.2 Absolute Neutrophils 6.11 Absolute Lymphocytes 1.28 Absolute Monocytes 0.75 Absolute Eosinophils 0.22 Absolute Basophils 0.02 Sodium 133 L Potassium 4.1 Chloride 97 L Carbon Dioxide 30.7 Anion Gap 5.3 BUN 25 H Creatinine 1.35 H Estimated GFR/1.73 m2 52.40 Glucose 102 Calcium 9.0 Magnesium 2.2 Total Bilirubin 0.7 AST 24 ALT 22 Alkaline Phosphatase 173 H Troponin I < 0.05 NT-Pro-B Natriuret Pep 7881 H Total Protein 8.3 H Albumin 3.[address] chest/abdomen/pelvis: 1. Mild wall thickening seen in the distal descending colon and sigmoid colon with associated diverticula. This may represent a mild colonic diverticulitis. Please correlate clinically. 2. New small right pleural effusion. 3. Improved pulmonary densities compared to the prior examination. 4. COPD and pulmonary fibrosis. 5. Stable abdominal and pelvic organs findings 6. Constipation. 7. The findings were discussed with the emergency department on the date of the examination. EKG: HR 79, Afib, no acute ischemia, though EKG of poor quality and there is motion artifact.
--- NOTE | 2020-01-15 15:07 | DI.US_ITS ---
EXAM: US EXTREMITY VENOUS BI CLINICAL HISTORY: Swelling, R/O DVT. TECHNIQUE: Bilateral lower extremity venous ultrasound performed using grayscale, color-flow, and sp ectral Doppler analysis. COMPARISON: No exams were available for comparison FINDINGS: The bilateral common femoral, femoral and popliteal veins demonstrate normal compressibility, augment ation, and color Doppler. The posterior tibial veins are patent. The saphenofemoral junctions are unr emarkable. There is no evidence of a Harris's cyst. Soft tissue edema in the lower extremities bilater ally. IMPRESSION: Right: Negative for DVT Left: Negative for DVT DATA REPOSITORY:
[2020-01-15 15:27] LABS: Troponin I < 0.05 ng/mL (<0.06)
--- NOTE | 2020-01-15 16:00 | CMPROGNOTE_ITS ---
- If Service Date Differs Date of service: 01/15/20 Time of Service: 16:00 Care Management Progress Note S/O: Ilia was seen by CM at the request of the ED provider. He is a 69 year old gentleman who presented to the ED with marked bilateral lower extremity edema and a 10 lb weight gain in the past 3 weeks. he has a long history of coronary artery disease with CABG, esophageal cancer, COPD and CHF. Ilia was pleasant, but a bit shy. He was agreeable to conversation and stated that he lives with a roomate who is gone most of the time. He does not appear to have a good understanding of his chronic medical conditions, particularly his diet. Ilia stated that he had one child, a daughter, who of cancer. Ilia was agreeable to home health nursing and a referral to [facility] for Meals on Wheels and Options counseling. He may benefit from a community health specialist. P: Dr. Mayberry hospitalist, saw Ilia in consultation and ordered home health nursing. CM sent a referral to [facility] for Meals on Wheels and possibly Options Counseling.
--- NOTE | 2020-01-15 16:18 | DI.VRAD_ITS ---
PROCEDURE INFORMATION: Exam: US Duplex Lower Extremity Veins, Bilateral Exam date and time: 01/15/2020 3:15 PM Age: 69 years old Clinical indication: Swelling (edema) of limb; Lower extremity, bilateral TECHNIQUE: Imaging protocol: Real-time duplex ultrasound of the extremities with 2-D pisano scale, color Doppler flow and spectral waveform analysis with image documentation. Complete exam focused on the bilateral lower extremity veins. COMPARISON: No relevant prior studies available. FINDINGS: Right deep veins: Unremarkable. The common femoral, femoral, proximal profunda femoral and popliteal veins are patent without thrombus. Normal Doppler waveforms. Normal compressibility and/or augmentation response. Right superficial veins: Saphenofemoral junction is patent without thrombus. Left deep veins: Unremarkable. The common femoral, femoral, proximal profunda femoral and popliteal veins are patent without thrombus. Normal Doppler waveforms. Normal compressibility and/or augmentation response. Left superficial veins: Saphenofemoral junction is patent without thrombus. Soft tissues: Bilateral ankle region soft tissue edema. IMPRESSION: No evidence of deep vein thrombosis. Dictated and Authenticated by: Saurav Koenig MD. Ordering:MAMTA Boyce MD
== END 2020-01-15 17:16 | disposition home or self-care (01) ==
PROVIDERS: Registered Nurse Emergency; Emergency Provider Physician Assistant; PCP Family Medicine
DX: I11.0 Hypertensive heart disease with heart failure; I50.9 Heart failure, unspecified; R63.5 Abnormal weight gain; J84.10 Pulmonary fibrosis, unspecified; J44.9 Chronic obstructive pulmonary disease, unspecified; F17.210 Nicotine dependence, cigarettes, uncomplicated; Z95.1 Presence of aortocoronary bypass graft; I50.33 Acute on chronic diastolic (congestive) heart failure; I27.20 Pulmonary hypertension, unspecified; I07.1 Rheumatic tricuspid insufficiency; I25.10 Atherosclerotic heart disease of native coronary artery without angina pectoris; I48.91 Unspecified atrial fibrillation
CPT/HCPCS: 36415; 74177; 80053; 93005; 96374; 99254; 99285; 71260; 83735; 83880; 84484; 85025; 93010; 93970; 99215; J1940; J3490

== ENCOUNTER 2020-01-17 00:41 | Outpatient (CLI) | payer MEDICARE, MEDICAID, SELFPAY ==
--- NOTE | 2020-01-17 | DI.US_ITS ---
APPROVED REPORT EXAM: Comprehensive 2D, Doppler, and color-flow Echocardiogram Patient Location: Out-Patient Corporate Executive Chef: Anjali Prabhakar RDCS (AE) Indications: Atrial Fibrillation Other Information Study Quality: Fair Conclusion Left Ventricle : The left ventricle is normal size. Left ventricular systolic function is mildly decr eased. There is global hypokinesis of the left ventricle. LVEF is 40-45%. Right Ventricle : Right ventricle is moderate to severely dilated. Right ventricular systolic functio n is grossly normal. The RVSP is 51.3mmHg. Atria : The left atrium size is normal. Right atrium is severely dilated. Mitral Valve : Moderate mitral annular calcification. The mitral valve is thickened but opens well. N o evidence of mitral valve stenosis. Trace to mild mitral regurgitation. Tricuspid Valve : There is tricuspid annular calcification. There is no tricuspid valve stenosis. Mod erate to severe tricuspid regurgitation. Great Vessels : The aortic root is normal in size. The ascending aorta is normal in size. Aortic arch is normal in caliber. The IVC collapses <50% with inspiration. Compared to study from 02/13/2019, patient's ejection fraction has now decreased from normal to mildly decreased. Wall motion Left Ventricle The left ventricle is normal size. Left ventricular systolic function is mildly decreased. Mild tita ntric left ventricular hypertrophy. There is global hypokinesis of the left ventricle. There is no ve ntricular septal defect visualized. LVEF is 40-45%. Right Ventricle Right ventricle is moderate to severely dilated. Right ventricular systolic function is grossly conrad l. The RVSP is 51.3mmHg. Atria The left atrium size is normal. Right atrium is severely dilated. The interatrial septum is intact wi th no evidence for an atrial septal defect. Aortic Valve Aortic valve is calcified. Aortic valve leaflets are sclerotic but open well. Aortic valve is probab ly trileaflet. There is no aortic valvular stenosis. No aortic regurgitation is present. Mitral Valve Moderate mitral annular calcification. The mitral valve is thickened but opens well. No evidence of m itral valve stenosis. Trace to mild mitral regurgitation. Tricuspid Valve There is tricuspid annular calcification. There is no tricuspid valve stenosis. Moderate to severe tr icuspid regurgitation. Pulmonic Valve The pulmonary valve is normal in structure. There is no pulmonic valvular stenosis. Mild pulmonic reg urgitation. Great Vessels The aortic root is normal in size. The ascending aorta is normal in size. Aortic arch is normal in ca liber. The IVC collapses <50% with inspiration. Pericardium There is no pericardial effusion. 2D Dimensions IVSD d PLAX 1.20 cm M: 0.6-1.2 LV Vol A2C d MOD 56.4 mL LVPW d PLAX 1.22 cm M: 0.6 - 1.2 LV Vol A4C d MOD 66.7 mL LVID d PLAX 3.74 cm M: 4.2 - 5.8 LA vol/ BSA A2C s A-L 43.5 mL/m2 LVDs 2.75 cm M: 2.5 - 4.0 LA vol/ BSA A4C s A-L 67.3 mL/m2 Ao Root d 3.07 cm M: 3.1 - 3.7 LA Vol/ BSA Biplane s A-L 59.4 mL/m2 RA Area A4C 31.65 cm2 LA Area A4C s MOD 31.32 cm2 RA Vol/ BSA A4C s A-L 71.9 mL/m2 LA Area A2C s MOD 22.96 cm2 Ao Asc Diam d 3.43 cm M: 2.6 - 3.4 LV EF A4C MOD 41.1 % LV EF Teichholz 50.9 % LV EF A2C MOD 45.5 % LVEF (Arenas's) 45.83 % M: 52 - 72 LV EF Biplane MOD 45.8 % LV Volume 50.85 mL M: 62 - 150 SV 29.50 mL LV Volume Index 29.56 mL/m2 M: 34 - 74 SV Index 17.11 mL/m2 LV Vol Biplane MOD 64.4 mL FS 25.35 % LV Diastology MV E Vmax 1.28 (0.4-1.3 m/s) Aortic Valve LVOT Area 2.94 cm2 AoV Area Vmax 2.47 cm2 LVOT Vmax 0.77 m/s AoV Area/ BSA (Vmax) 1.43 cm2/m2 LVOT Mean Enoc. 0.47 m/s CHILO Mean Enoc. 2.33 cm2 LVOT Peak Grad 2.4 mmHg CHILO Mean Enoc. Index 1.35 cm2/m2 LVOT Mean Grad 1.1 mmHg LVOT VTI 0.154 m LVOT Diam s 1.90 cm AoV Vmax 0.92 m/s Velocity Ratio 0.83 AoV Mean Enoc. 0.60 m/s AoV Peak Grad 3.4 mmHg LVOT SV 45.38 mL AoV Mean Grad 1.6 mmHg AoV VTI 0.161 m AoV Area VTI 2.82 cm2 AoV Area/ BSA (VTI) 1.64 cm/m2 Mitral Valve MV DT 109 (160-240 msec) MV PHT 32 msec MV Area PHT 6.95 cm2 MV VTI 0.187 m MV Area VTI 2.43 (4.0-6.0 cm2) Pulmonary Valve PV Vmax 0.78 (0.5-1.5 m/s) RVOT Peak Gr. 0.74 mmHg PV Peak Grad 2.4 mmHg RVOT Mean Gr. 0.35 mmHg PV Mean Grad 1.1 mmHg RVOT VTI 0.045 m PV VTI 0.138 m RVOT Vmax 0.43 m/s Tricuspid Valve TR Peak Grad 43.3 mmHg TR Vmax 3.29 m/s RA Pressure 8.00 mmHg RVSP (TR) 51.3 mmHg
== END 2020-01-17 01:01 ==
PROVIDERS: PCP Family Medicine; Visit Provider Physician Assistant
DX: R60.0 Localized edema (principal); I36.1 Nonrheumatic tricuspid (valve) insufficiency; I50.9 Heart failure, unspecified; I48.91 Unspecified atrial fibrillation
CPT/HCPCS: 93306

== ENCOUNTER 2020-01-20 10:42 | Emergency (ER) | payer MEDICARE, MEDICAID, SELFPAY ==
[2020-01-20] VITALS (38 sets, daily range): BP systolic 102–128; BP diastolic 58–87; PULSE 68–100; RESP 13–26; TEMP 36.6; O2SAT 96–100
--- NOTE | 2020-01-20 10:45 | RT.EKG_ITS ---
APPROVED REPORT Exam: Resting ECG Patient Location: E HR:81 bpm ECG Measurements Heart Rate 81 AXIS [place] [id number] P [id number] QRSd 73 QRS -8 QT 369 T 39 QTc 428 Conclusion Atrial fibrillation...V-rate 81, irreg A-activity Probable anteroseptal infarct, recent...Q, ST>0.15mV, T neg, V1-V2
--- NOTE | 2020-01-20 10:55 | W.ED.GENAD ---
Discharge Plan Disposition Patient Disposition: HOME Condition: Improving Discharge Details Chief Complaint: Chest Pain Clinical Impression: Left-sided chest wall pain Primary Care Provider: Silvina Perdue ED Provider: Gregor Broderick Home Meds and New Rx's Prescriptions: Continued sucralfate [Carafate] 100 mg/mL suspension 10 ml PO QID RF: 0 lidocaine 5 % cream 1 applic TP QID RF: 0 multivitamin capsule 1 cap PO DAILY RF: 0 Combivent Respimat 20-100 mcg/actuation mist 1 puff IH Q6H RF: 0 folic acid 1 MG tablet 1 mg PO DAILY RF: 0 bupropion HCl (smoking deter) 150 MG tablet extended release 12 hr 150 mg PO BID RF: 0 aspirin [Ecotrin Low Strength] 81 MG tablet,delayed release (DR/EC) 81 mg PO DAILY RF: 0 atorvastatin [Lipitor] 10 MG tablet 10 mg PO HS RF: 0 Spiriva with HandiHaler 18 MCG capsule, w/inhalation device 2 puff Inhalation DAILY RF: 0 nitroglycerin [Nitrostat] 0.4 MG tablet, sublingual 0.4 mg Sublingual . DIRECTED PRN (Reason: Chest Pain) RF: 0 cholecalciferol (vitamin D3) 1,000 UNITS tablet 2,000 units PO DAILY RF: 0 gabapentin 300 mg capsule 300 mg PO TID RF: 0 Ensure Original Liquid See Rx Instructions .ROUTE .COMPLEX RF: 0 bumetanide 2 mg tablet 2 mg PO BID Qty: 20 RF: 0 spironolactone 50 mg tablet 50 mg PO DAILY Qty: 10 RF: 0 pantoprazole 40 MG tablet,delayed release (DR/EC) 40 mg PO DAILY RF: 0 metoprolol tartrate 25 mg Tablet 12.5 mg PO BID RF: 0 Discontinued hydrocodone-acetaminophen 10-325 mg tablet 1 tab PO TID RF: 0 Discharge Instructions Instructions: Chest Wall Pain (ED) Additional Instructions: We will make a follow-up appointment for you in clinic for recheck. Continue your regular medications. Remove the Lidoderm patch in 10 hours time. May use the provided hydrocodone as needed for severe or breakthrough pain. Return if you develop a fever, difficulty breathing, or any other acute concerns. Medical Decision Making 69-year-old male presents with 2+ days of what he states is constant left-sided chest pain. He has a history of coronary artery disease, status post CABG, history of CHF. He was seen in the emergency department on January 14 for CHF exacerbation. He states he has been urinating and taking his medications. He denies a fall or injury. On exam he is oxygenating normally and vital signs are normal. His exam reveals rales at the bases and pitting edema of the extremities which he states is chronic. He has somewhat reproducible left-sided chest discomfort on exam. Diagnosis is broad and includes PE, CHF, pneumonia. Patient had IV access established, referred for laboratory testing including troponin, BNP and d-dimer. Chest x-ray reveals left lower lobe atelectasis, suspicious for pneumonia. CT obtained which is negative for pulmonary embolism. There is chronic inflammatory disease present without focal consolidation. There are multiple chronic left rib fractures. Patient observed and a repeat troponin obtained and negative. Given his reproducible left-sided chest wall pain, chronic left rib fractures I feel this is the most likely source of his discomfort. Would note his elevated BNP and significant lower extremity edema. Discussed with him some of his current lifestyle choices including trying to decrease tobacco alcohol use. He will continue his diuretics. We will ask care management to arrange an outpatient follow-up for him with Dr. Perdue in clinic. HPI General Mode of arrival: ambulatory. Date/Time Provider Initiated Documentation: 01/20/20 10:43. Limitations to Documentation: no limitations. Information obtained by: patient. History of Present Illness 69 year old M presents to the emergency department with the chief complaint of Left-sided chest pain x2 days, described as moderate, Quality is described as dull and constant, and is localized to the chest. Patient reports no radiation. Patient started experiencing this hour(s) No relieving factors improve symptom(s), No exacerbating factors reported . Patient notes other (Chronic shortness of breath and lower extremity edema he states is unchanged.). Patient did receive the following treatments prior to arrival, none Related Data Home Medications Medication Instructions Recorded Confirmed bupropion HCl (smoking deter) 150 mg PO BID 08/04/12 01/20/20 folic acid 1 mg PO DAILY 08/04/12 01/20/20 aspirin [Ecotrin Low Strength] 81 mg PO DAILY 04/09/13 01/20/20 Spiriva with HandiHaler 2 puff INHALATION DAILY 01/25/15 01/20/20 atorvastatin [Lipitor] 10 mg PO HS 01/25/15 01/20/20 cholecalciferol (vitamin D3) 2,000 units PO DAILY 04/12/16 01/20/20 nitroglycerin [Nitrostat] 0.4 mg SUBLINGUAL . DIRECTED PRN 04/12/16 01/20/20 pantoprazole 40 mg PO DAILY 01/15/17 01/20/20 lidocaine 5 % topical cream 1 applic TP QID 02/10/18 01/20/20 multivitamin 1 cap PO DAILY 02/10/18 01/20/20 sucralfate 100 mg/mL oral 10 ml PO QID 02/10/18 01/20/20 suspension metoprolol tartrate 12.5 mg PO BID 04/12/18 01/20/20 ipratropium 20 mcg-albuterol 100 1 puff IH Q6H 05/02/19 01/20/20 mcg/actuation mist for inhalation Ensure Original See Rx Instructions .ROUTE .COMPLEX 01/15/20 01/20/20 bumetanide 2 mg PO BID #20 tab 01/15/20 01/20/20 gabapentin 300 mg PO TID 01/15/20 01/20/20 spironolactone 50 mg PO DAILY #10 tab 01/15/20 01/20/20 Previous Rx's Medication Instructions Recorded bumetanide 2 mg PO BID #20 tab 01/15/20 spironolactone 50 mg PO DAILY #10 tab 01/15/20 Allergies Allergy/AdvReac Type Severity Reaction Status Date / Time No Known Allergies Allergy Verified 01/20/20 12:34 General Stated Complaint: Chest Pain ANAMIKA: 2 Review of Systems Narrative: 6 systems reviewed and otherwise negative. Persistent lower extremity edema. Denies fall or injury [facility] Medical History Adenocarcinoma of esophagus Afib (Chronic) Alcohol abuse Atrial flutter CAD (coronary artery disease) (Chronic) Chest wall pain Chronic obstructive lung disease Coronary arteriosclerosis Diabetes mellitus Difficulty reading Diuresis (Acute) Edema Epididymitis, right Essential hypertension GERD (gastroesophageal reflux disease) GI bleed (Chronic) Hx of esophageal malignancy Hydrocele, right Hyperlipidemia Hypertension (Chronic) Low back pain Pancreatitis Solitary pulmonary nodule Stomach cancer (Resolved) Tobacco abuse Tricuspid regurgitation (Chronic) Weight loss (Acute) Surgical History cardiac cath Coronary Artery Bypass Gaft (CABG) EGD - IV Sedation Esophagectomy H/O colonoscopy (Resolved 2007) H/O colonoscopy (Resolved 04/14/18) dr geller, sigmoid diverticulosis, repeat 10 years History of esophagogastroduodenoscopy (EGD) (Resolved 09/2017) History of hydrocelectomy (Resolved) History of right inguinal hernia repair (Resolved) repair times two sugrical flap of unhealing wound Family History Mother No problems noted. Father No problems noted. Social History Smoking/Tobacco Use Status: Current every day Tobacco Type: cigarettes Smoking packs per day: 1 Smoking cigarettes per day: 20.0 Years smoked: 50 Smoking pack-years: 50.00 Alcohol Intake: current Alcohol Intake frequency: 3 or more drinks per day Alcohol type: beer Drug use: Never Substance use type: does not use What type of physical activity do you participate in: none Do you feel safe at home: Yes Do you feel safe in your relationship?: Yes Exam Narrative Exam Narrative: GEN: awake, alert, oriented 3. Pleasant, well groomed, interactive. HEAD: Normocephalic, atraumatic ENT: Mucous membranes moist, oropharynx unremarkable, External ear exam unremarkable EYES: PERRL, EOMI NECK: Full ROM, no BIRGIT, no menigismus CHEST/RESP: Left chest wall tender, rales at both bases CARDIOVASCULAR: Irregularly irregular, no murmur, rub evans. 2+ Rad pulse bilateral ABDOMEN: Soft, nontender, no mass. +Bowel sounds EXT: Full ROM, 3+ bilateral symmetric lower extremity edema Neuro: Grossly normal neurologic exam, conversant, interactive. Psych: Speech fluent, thoughts congruent, affect normal Course Vital Signs Vital signs: Vital Signs Temperature 36.6 C 01/20/20 10:50 Pulse 79 01/20/20 10:50 Respiratory Rate 17 01/20/20 10:50 Blood Pressure 125/76 01/20/20 10:50 Pulse Oximetry 100 01/20/20 10:50 Temperature 36.6 C 01/20/20 10:50 Temperature Source Skin 01/20/20 10:50 Pulse 79 01/20/20 10:50 Respiratory Rate 17 01/20/20 10:50 Blood Pressure 125/76 01/20/20 10:50 Blood Pressure Position Sitting 01/20/20 10:50 Pulse Oximetry 100 01/20/20 10:50 Oxygen Delivery Method Room Air 01/20/20 10:50 Oxygen Flow Rate 0 01/20/20 10:50 Pain Level 6 01/20/20 10:50
[2020-01-20] MEDS: Aspirin 81 MG CHEW (11:07)
[2020-01-20 11:27] LABS: Abs Immature Grans 0.03 10^3/uL (0.0-0.06); Absolute Basophil Count 0.03 10^3/uL (0.0-0.2); Absolute Eosinophil Count 0.18 10^3/uL (0.0-0.7); Absolute Lymphocyte Count 1.23 10^3/uL (1.2-3.4); Absolute Monocyte Count 0.92 10^3/uL (0.1-0.8); Absolute Neutrophil Count 5.41 10^3/uL (1.2-6.7); Basophils % 0.4; Eosinophils % 2.3; HCT 39.6 % (40.0-50.0); HGB 12.6 g/dL (13.5-17.5); Immature Grans % 0.4; Lymphocytes % 15.8; MCH 30.6 pg (27.0-33.0); MCHC 31.8 % (32.0-36.0); MCV 96.1 fL (80-95); MPV 9.9 fL (8.0-11.0); Monocytes % 11.8; Neutrophils % 69.3; Nucleated RBC 0 %; Platelet Count 294 10^3/uL (130-400); RBC 4.12 10^6/uL (4.36-5.78); RDW 16.5 % (11.8-14.1); RDW-SD 57.7 fL
--- NOTE | 2020-01-20 11:30 | RT.EKG_ITS ---
APPROVED REPORT Exam: Resting ECG Patient Location: E HR:70 bpm ECG Measurements Heart Rate 70 AXIS [place] [id number] P [id number] QRSd 85 QRS 64 QT 396 T -13 QTc 429 Conclusion Atrial fibrillation, rate 70, irreg
--- NOTE | 2020-01-20 11:30 | DI.RAD_ITS ---
EXAM: XR PORTABLE CHEST AP CLINICAL HISTORY: Chest pain TECHNIQUE: 2D digital imaging was performed. COMPARISON: CR XR CHEST 2V PA LATERAL from 04/30/2019 FINDINGS: The heart is enlarged. There are sternal wires and mediastinal clips. The patient has had previous gastric pull-through procedure. There is scarring at the left lung base. There is also question of superimposed infiltrate. There are underlying emphysematous and fibrotic changes. No effusions are visible. IMPRESSION: Previous gastric pull-through procedure. Question of left basilar infiltrate. DATA REPOSITORY: RADIATION DOSE DELIVERED:
--- NOTE | 2020-01-20 11:33 | DI.VRAD_ITS ---
PROCEDURE INFORMATION: Exam: XR Chest, 1 View Exam date and time: 01/20/2020 10:56 AM Age: 69 years old Clinical indication: Chest pain; Type not specified TECHNIQUE: Imaging protocol: XR of the chest Views: 1 view. COMPARISON: CT CHEST/ABD/PEL W 01/15/2020 1:22 PM FINDINGS: Lungs: Severe upper lobe pulmonary emphysema. Left lower lobe lung atelectasis intermixed with other possible unrelated airspace opacification. 6 mm oval left lower lobe lung nodule versus superimposition of pulmonary markings and rib. Pleural space: Normal. Heart/Mediastinum: Normal heart and cardiomediastinal silhouette. Vasculature: Aortosclerosis. Normal caliber aorta. Bones/joints: Intact median sternotomy wires, status post CABG. Other findings: The patient is leaning toward the left and there is mild right anterior oblique patient malpositioning. IMPRESSION: 1. Left lower lobe atelectasis with other findings suspicious for pneumonia. 2. No acute pulmonary edema. 3. Pulmonary emphysema. 4. Subcentimeter left lower lobe lung nodule. Dictated and Authenticated by: Saurav Koenig MD. Ordering:IZAIAH Bundy MD
[2020-01-20 11:38] LABS: ALT 17 U/L (16-63); AST 20 U/L (15-37); Albumin 3.1 g/dL (3.4-5.0); Alkaline Phosphatase 178 U/L (46-116); Anion Gap 6.7 mmol/L (3-11); BUN 25 mg/dL (7-18); Bilirubin, Total 0.7 mg/dL (0.2-1.0); CO2 30.3 mmol/L (21.0-32.0); CREATININE 1.44 mg/dL (0.70-1.30); Calcium 9.2 mg/dL (8.5-10.1); Chloride 100 mmol/L (98-107); Estimated GFR 48.64 (mL/min/1.73m2); Glucose 68 mg/dL (74-106); Magnesium 2.2 mg/dL (1.8-2.4); NT-proBNP 8001 pg/mL (<300); Sodium 137 mmol/L (136-145); Troponin I < 0.05 ng/mL (<0.06)
[2020-01-20 11:49] LABS: D-Dimer 658 ng/mlFEU (<500)
--- NOTE | 2020-01-20 12:25 | DI.CT_ITS ---
EXAM: CT CHEST PE CTA CLINICAL HISTORY: Left-sided chest discomfort. TECHNIQUE: Imaging Protocol: Axial CT angiography was performed with multi-slice acquisition and mu lti-planar and/or 3D reconstructions. CONTRAST MATERIAL: Intravenous: Omnipaque 350 Contrast volume: 61 structured data in ml COMPARISON: CT CT CHEST/ABD/PEL W from 01/15/2020 CR,XR XR PORTABLE CHEST AP from 01/20/2020 FINDINGS: Pulmonary Arteries: No evidence of filling defect to suggest pulmonary emboli. Tracheobronchial tree: Patent where visualized. Mediastinum and Mikki: No dominant adenopathy or fluid collection. Pulmonary parenchyma: Severe emphysematous changes. Bibasilar infiltrates, left greater than right, slightly worse on the left when compared with the previous exam. Pleura: Tiny right pleural effusion. No pneumothorax. Heart: The heart is enlarged, particularly the right atrium. There is reflux of contrast into the IV C and hepatic veins. Status post CABG. Aorta: Thoracic aorta non-dilated. Atherosclerotic changes. Upper abdomen: Status post esophagectomy and gastric pull-through. Calcifications at the head of th e pancreas. Bones: Bilateral subacute or old rib fractures. IMPRESSION: No evidence of pulmonary embolism. Mild bibasilar infiltrates, left greater than right. Tiny right pleural effusion, decreased from previous exam. RADIATION DOSE DELIVERED: 216.42mGy.cm Total DLP DATA REPOSITORY: All CT scans at this facility are submitted to the National Radiology Data Registry (NRDR) Dose Index Registry (DIR) with the [employer] ([employer]). RADIATION OPTIMIZATION: All CT scans at this facility use at least one of these dose optimization te chniques: automated exposure control; mA and/or kV adjustment per patient size (includes targeted exa ms where dose is matched to clinical indication); or iterative reconstruction.
[2020-01-20] MEDS: Omnipaque 350 MG/ML 100 ML BTL 61 ML IJ (12:26)
[2020-01-20] MEDS: Normal Saline - Diluent 50 ML VIAL IV (12:27)
--- NOTE | 2020-01-20 13:16 | DI.VRAD_ITS ---
PROCEDURE INFORMATION: Exam: CT Angiography Chest With Contrast Exam date and time: 01/20/2020 11:56 AM Age: 69 years old Clinical indication: Left-sided chest pain; Patient HX: Left sided chest discomfort. TECHNIQUE: Imaging protocol: Computed tomographic angiography of the chest with intravenous contrast. 3D rendering: MIP and/or 3D reconstructed images were created by the technologist. Radiation optimization: All CT scans at this facility use at least one of these dose optimization techniques: automated exposure control; mA and/or kV adjustment per patient size (includes targeted exams where dose is matched to clinical indication); or iterative reconstruction. Contrast material: OMNIPAQUE 350; Contrast volume: 61 ml; Contrast route: INTRAVENOUS (IV); COMPARISON: CT CHEST/ABD/PEL W 01/15/2020 1:22 PM FINDINGS: Pulmonary arteries: Normal. No pulmonary emboli. Aorta: Scattered aortosclerosis, otherwise, normal. Lungs: Severe emphysema. Chronic decreased right peribronchial thickening and scattered areas of posterior right upper and right lower lobe interstitial thickening. Similar changes are noted to the left although they appear mildly worsened. Pleural space: Decreased and now very small right pleural effusion. Heart: Enlarged, particularly right heart and with very prominent reflux of ingested contrast into the inferior vena cava and hepatic veins. Status post CABG. Lymph nodes: Chronic unchanged sub threshold mediastinal and subcarinal lymph node enlargement. Bones/joints: No acute fracture or suspicious abnormality. Chronic, incompletely healed fractures of posterior left 7th, 8th and 9th ribs. Healed fractures of right posterior 11th rib and anterior 10th rib. Soft tissues: Chronic hiatal hernia. Unchanged dense speckled calcification in the head of the pancreas. IMPRESSION: 1. Negative for pulmonary arterial embolism. 2. On balance, unchanged airways infectious or inflammatory disease, mildly improved to the right but mildly worsened to the left. No focal lung consolidation. 3. Chronic abnormalities include centrilobular pulmonary emphysema, multiple chronic left rib fractures, markedly enlarged right heart with evidence of right heart failure and hiatal hernia. Dictated and Authenticated by: Saurav Koenig MD. Ordering:IZAIAH Bundy MD
[2020-01-20] MEDS: Lidocaine 5% Patch 1 PATCH TP (13:18)
[2020-01-20] MEDS: Acetaminophen 325 MG TAB 650 MG PO (13:18)
--- NOTE | 2020-01-20 13:45 | RT.EKG_ITS ---
APPROVED REPORT Exam: Resting ECG Patient Location: E HR:80 bpm ECG Measurements Heart Rate 80 AXIS FL [id number] P [id number] QRSd 83 QRS 46 QT 384 T -30 QTc 443 Conclusion Atrial fibrillation rate 80. Low voltage, extremity leads Anteroseptal infarct, old...Q >40mS, V1-V2
[2020-01-20 14:26] LABS: Troponin I < 0.05 ng/mL (<0.06)
== END 2020-01-20 14:41 | disposition home or self-care (01) ==
PROVIDERS: Emergency Provider Emergency Medicine; PCP Family Medicine
DX: R07.81 Pleurodynia (principal); R60.0 Localized edema; I25.10 Atherosclerotic heart disease of native coronary artery without angina pectoris; Z95.1 Presence of aortocoronary bypass graft; E11.9 Type 2 diabetes mellitus without complications; I11.0 Hypertensive heart disease with heart failure; I50.32 Chronic diastolic (congestive) heart failure; J44.9 Chronic obstructive pulmonary disease, unspecified
CPT/HCPCS: 36415; 71275; 80053; 93005; 99285; 71045; 83735; 83880; 84484; 85025; 85379; 93010; J3490

== ENCOUNTER 2020-01-24 20:15 | Outpatient (REF) | payer MEDICARE, MEDICAID, SELFPAY ==
[2020-01-24 18:59] LABS: Hemoglobin A1C 6.1 % (3.8-5.6)
[2020-01-24 19:01] LABS: Albumin 3.1 g/dL (3.4-5.0); Anion Gap 12.7 mmol/L (3-11); BUN 42 mg/dL (7-18); CO2 22.3 mmol/L (21.0-32.0); CREATININE 1.96 mg/dL (0.70-1.30); Calcium 8.5 mg/dL (8.5-10.1); Chloride 96 mmol/L (98-107); Estimated GFR 34.08 (mL/min/1.73m2); Glucose 150 mg/dL (74-106); Potassium 5.2 mmol/L (3.5-5.1); Sodium 131 mmol/L (136-145); TSH (W/Ref FT4) 6.66 uIU/mL (0.36-3.74); Total Protein 7.5 g/dL (6.4-8.2)
[2020-01-24 20:13] LABS: FREE T4 1.27 ng/dL (0.76-1.46)
[2020-01-28 11:22] LABS: Prealbumin 19 mg/dL (20-40)
== END 2020-01-24 20:35 ==
LOC: NCHCN 20:15
PROVIDERS: PCP Family Medicine; Visit Provider Family Medicine
DX: E40 Kwashiorkor (principal); I10 Essential (primary) hypertension; R73.03 Prediabetes
CPT/HCPCS: 80048; 82040; 83036; 84134; 84155; 84439; 84443

== ENCOUNTER 2020-02-08 12:48 | Outpatient (REF) | payer MEDICARE, MEDICAID, SELFPAY ==
[2020-02-08 15:41] LABS: HGB 12.2 g/dL (13.5-17.5); MCH 30.2 pg (27.0-33.0); MCHC 32.1 % (32.0-36.0); MCV 94.1 fL (80-95); MPV 10.1 fL (8.0-11.0); Platelet Count 264 10^3/uL (130-400); RBC 4.04 10^6/uL (4.36-5.78); RDW 17.1 % (11.8-14.1); RDW-SD 58.7 fL; WBC 6.75 10^3/uL (4.4-10.8)
== END 2020-02-08 13:08 ==
LOC: NCHCN 12:48
PROVIDERS: PCP Family Medicine; Visit Provider Family Medicine
DX: I10 Essential (primary) hypertension (principal)
CPT/HCPCS: 80048; 85027

== ENCOUNTER 2020-02-21 14:39 | Outpatient (REF) | payer MEDICARE, MEDICAID, SELFPAY ==
[2020-02-21 18:47] LABS: Bilirubin Negative (Negative); Blood Negative (Negative); Clarity Clear (Clear); Glucose Negative (Negative); Ketones Negative (Negative); Leukocyte Esterase Negative (Negative); Nitrite Negative (Negative); Specific Gravity 1.015 (1.005-1.025)
[2020-02-21 18:47] LABS: Anion Gap 9.2 mmol/L (3-11); BUN 16 mg/dL (7-18); CO2 23.8 mmol/L (21.0-32.0); CREATININE 0.94 mg/dL (0.70-1.30); Chloride 101 mmol/L (98-107); Glucose 107 mg/dL (74-106); Potassium 4.8 mmol/L (3.5-5.1); Sodium 134 mmol/L (136-145)
== END 2020-02-21 14:59 ==
LOC: NCHCN 14:39
PROVIDERS: PCP Family Medicine; Visit Provider Family Medicine
DX: R10.9 Unspecified abdominal pain (principal); E87.5 Hyperkalemia; I25.810 Atherosclerosis of coronary artery bypass graft(s) without angina pectoris; I10 Essential (primary) hypertension
CPT/HCPCS: 80048; 81003

== ENCOUNTER 2020-04-01 00:59 | Outpatient (CLI) | payer MEDICARE, MEDICAID, SELFPAY ==
--- NOTE | 2020-04-01 13:14 | DI.US_ITS ---
EXAM: US RENAL CLINICAL HISTORY: RT FLANK PAIN AND WORSENING RENAL FUNCTION TECHNIQUE: Ultrasound performed using standard protocol. COMPARISON: US US ECHOCARDIOGRAM from 01/17/2020 FINDINGS: Renal ultrasound was performed according to the usual protocol. The kidneys are normal in size and s hape. There is no evidence of a renal mass, hydronephrosis, or nephrolithiasis. Urinary bladder is unremarkable in appearance, pre and postvoid urinary bladder volume measurements 1 56 cc and 41 cc respectively. Ureteral jet is visualized on the right but no left ureteral jet is vi sualized. This is a nonspecific finding. Prostatic volume is estimated at 38 cc. IMPRESSION: No significant renal pathology identified. 41 cc postvoid residual volume of the bladder. Mild pros tatic enlargement. DATA REPOSITORY:
== END 2020-04-01 01:19 ==
PROVIDERS: PCP Family Medicine; Visit Provider Family Medicine
DX: N40.0 Benign prostatic hyperplasia without lower urinary tract symptoms (principal); R10.9 Unspecified abdominal pain
CPT/HCPCS: 76770

== ENCOUNTER 2020-07-09 12:11 | Observation (INO) | payer MEDICARE, MEDICAID, SELFPAY ==
[2020-07-09] VITALS (14 sets, daily range): BP systolic 105–156; BP diastolic 70–90; PULSE 81–127; RESP 14–19; TEMP 36.5–37; O2SAT 95–99
--- NOTE | 2020-07-09 12:15 | RT.EKG_ITS ---
APPROVED REPORT Exam: Resting ECG Patient Location: E HR:112 bpm ECG Measurements Heart Rate 112 AXIS DC [id number] P [id number] QRSd 78 QRS 78 QT 310 T 266 QTc 424 Conclusion Atrial fibrillation...V-rate 73-143, irreg A-activity Nonspecific repol abnormality, diffuse leads...ST dep, T flat/neg, ant/lat/inf
--- NOTE | 2020-07-09 12:19 | ED.GENADUL_ITS ---
Discharge Plan Discharge Details Chief Complaint: Abd Prob Primary Care Provider: Silvina Perdue ED Provider: Anastasia Dan Home Meds and New Rx's Prescriptions: No Action sucralfate [Carafate] 100 mg/mL suspension 10 ml PO QID RF: 0 lidocaine 5 % cream 1 applic TP QID RF: 0 multivitamin capsule 1 cap PO DAILY RF: 0 Combivent Respimat 20-100 mcg/actuation mist 1 puff IH TID RF: 0 folic acid 1 MG tablet 1 mg PO DAILY RF: 0 bupropion HCl (smoking deter) 150 MG tablet extended release 12 hr 150 mg PO BID RF: 0 aspirin [Ecotrin Low Strength] 81 MG tablet,delayed release (DR/EC) 81 mg PO DAILY RF: 0 atorvastatin [Lipitor] 10 MG tablet 10 mg PO HS RF: 0 Spiriva with HandiHaler 18 MCG capsule, w/inhalation device 2 puff Inhalation DAILY RF: 0 nitroglycerin [Nitrostat] 0.4 MG tablet, sublingual 0.4 mg Sublingual . DIRECTED PRN (Reason: Chest Pain) RF: 0 cholecalciferol (vitamin D3) 1,000 UNITS tablet 2,000 units PO DAILY RF: 0 gabapentin 300 mg capsule 300 mg PO TID RF: 0 Ensure Original Liquid See Rx Instructions .ROUTE .COMPLEX RF: 0 bumetanide 2 mg tablet 2 mg PO BID Qty: 20 RF: 0 hydrocodone-acetaminophen 10-325 mg tablet 1 tab PO TID RF: 0 spironolactone 50 mg tablet 25 mg PO DAILY RF: 0 pantoprazole 40 MG tablet,delayed release (DR/EC) 40 mg PO DAILY RF: 0 metoprolol tartrate 25 mg Tablet 12.5 mg PO BID RF: 0 Medical Decision Making Patient is alert and not oriented. Continue after speaking with patient's roommate. Denies any evidence of PE patient is able to stand but is weak with ambulation due to the There is evidence of withdrawal, he is in atrial fibrillation which is not new perfusion, he is not anticoagulated, just secondary to GI bleed There are no overt signs or symptoms of cardiorespiratory Appear to be altered and I am not finding a direct source, however given patient's weakness and alteration of mental status (mobility constipation DNR/DNI per daughterPatt had a discussion I did discuss the case with extremity physician, Dr. Broderick and with the admitting hospitalist, Dr. Cartagena Patient is agreeable to admission time Brain and abdomen did not show acute pathology, patient has been constipated for radiology interpretation Chest x-ray report shows significant evidence Patient has mild hypoxia, tachycardic secondary to likely will travel for 48 hours, he has been given a dose in the emergency room Ammonia with a normal limits, clinically encephalopathy Unlikely to be Warnicke's colopathy given include the onset No evidence of bowel obstruction on CT scan No subdural hematoma on CT brain Differential Diagnosis Differential Diagnosis: Hepatic encephalopathy, concern for TIA, subdural hematoma, bowel obstructi Medical Records Medical records reviewed: Yes I reviewed the patient's medical records. Lab Data Lab results reviewed: Yes I reviewed the patient's lab results. ECG Data Prior ECG tracings: available for review HPI 69-year-old male presents with confusion, weakness, vomiting, and anorexia. He has a past uncle history concerning for coronary artery disease, diastolic heart failure, pulmonary hypertension, tricuspid regurgitation, peripheral edema, hypertension. He reportedly for the past 3 days has had anorexia vomiting. He is unable to give permission at this time and denies any current complaints aside from feeling weak. The majority of his history is obtained from his roommate Lyudmila. She denies any known falls or injuries. She denies any medicat ion changes. She does report the patient drinks at night a lot. Daily denies any history of withdrawal symptoms and states but it has not been constant evening. She states that he became confused this morning that was gradual in onset. She denies confusion yesterday. She denies any known changes in bladder. She does state he is acting similarly to when he had a GI bleed. She denies any anticoagulation. Patient is unable to give doctors. Denies any pain. General Date/Time Provider Initiated Documentation: 07/09/20 12:19 . Related Data Home Medications Medication Instructions Recorded Confirmed bupropion HCl (smoking deter) 150 mg PO BID 08/04/12 07/09/20 folic acid 1 mg PO DAILY 08/04/12 07/09/20 aspirin [Ecotrin Low Strength] 81 mg PO DAILY 04/09/13 07/09/20 Spiriva with HandiHaler 2 puff INHALATION DAILY 01/25/15 07/09/20 atorvastatin [Lipitor] 10 mg PO HS 01/25/15 07/09/20 cholecalciferol (vitamin D3) 2,000 units PO DAILY 04/12/16 07/09/20 nitroglycerin [Nitrostat] 0.4 mg SUBLINGUAL . DIRECTED PRN 04/12/16 07/09/20 pantoprazole 40 mg PO DAILY 01/15/17 07/09/20 lidocaine 5 % topical cream 1 applic TP QID 02/10/18 07/09/20 multivitamin 1 cap PO DAILY 02/10/18 07/09/20 sucralfate 100 mg/mL oral 10 ml PO QID 02/10/18 07/09/20 suspension metoprolol tartrate 12.5 mg PO BID 04/12/18 07/09/20 ipratropium 20 mcg-albuterol 100 1 puff IH TID 05/02/19 07/09/20 mcg/actuation mist for inhalation Ensure Original See Rx Instructions .ROUTE .COMPLEX 01/15/20 07/09/20 bumetanide 2 mg PO BID #20 tab 01/15/20 07/09/20 gabapentin 300 mg PO TID 01/15/20 07/09/20 hydrocodone-acetaminophen 1 tab PO TID 07/09/20 07/09/20 spironolactone 25 mg PO DAILY 07/09/20 07/09/20 Previous Rx's Medication Instructions Recorded bumetanide 2 mg PO BID #20 tab 01/15/20 Allergies Allergy/AdvReac Type Severity Reaction Status Date / Time No Known Allergies Allergy Verified 07/09/20 12:57 General ANAMIKA: 2 Review of Systems Narrative: Review of systems negative x7 aside from Indication in [facility] Medical History (Updated 02/20/20 @ 00:02 by AZAEL LAINEZ) Adenocarcinoma of esophagus Afib Alcohol abuse Atrial flutter CAD (coronary artery disease) Chest wall pain Chronic obstructive lung disease Coronary arteriosclerosis Diabetes mellitus Difficulty reading Diuresis Edema Epididymitis, right Essential hypertension GERD (gastroesophageal reflux disease) GI bleed Hx of esophageal malignancy Hydrocele, right Hyperlipidemia Hypertension Low back pain Pancreatitis Solitary pulmonary nodule Stomach cancer Tobacco abuse Tricuspid regurgitation Weight loss Surgical History cardiac cath Coronary Artery Bypass Gaft (CABG) EGD - IV Sedation Esophagectomy H/O colonoscopy (2007) H/O colonoscopy (04/14/18) dr geller, sigmoid diverticulosis, repeat 10 years History of esophagogastroduodenoscopy (EGD) (09/2017) History of hydrocelectomy History of right inguinal hernia repair repair times two sugrical flap of unhealing wound Family History Mother No problems noted. Father No problems noted. Social History Smoking/Tobacco Use Status: Current every day Tobacco Type: cigarettes Smoking packs per day: 1 Smoking cigarettes per day: 20.0 Years smoked: 50 Smoking pack- years: 50.00 Smoking risk assessment performed?: Yes Alcohol Intake: current Alcohol Intake frequency: 3 or more drinks per day Alcohol type: beer Drug use: Never Substance use type: does not use What type of physical activity do you participate in: none Do you feel safe at home: Yes Do you feel safe in your relationship?: Yes Exam Const General: no acute distress and frail appearing HENMT Head: normal to inspection Mouth: oral mucosae normal Throat: uvula midline Eyes Pupils: PERRL EOM: EOM intact bilaterally Neck Other: No midline tenderness Chest Chest: normal inspection of the chest Resp Effort & Inspection: normal respiratory effort Auscultation: clear to auscultation bilaterally Cardio Rate: regular rate Rhythm: regular rhythm GI Other: Easily reducible abdominal hernia, ventral, nontender Back/Spine/Pelvis Other: no CVA tenderness no bruising, no visible trauma Skin Other: Erythema and tenderness to right knee there extremities, just proximal to the medial malleolus Neuro General: patient alert and patient awake Cranial Nerves: CN's II-XI intact bilaterally and PERRL Extrem Other: distal pulses intact 2+ edema tenderness proximal to medial malleolus on right
--- NOTE | 2020-07-09 12:30 | DI.CT_ITS ---
EXAM: CT ABDOMEN PELVIS W CLINICAL HISTORY: vomiting, confusion, hx of stomach cancer TECHNIQUE: Imaging Protocol: Axial computed tomography images with coronal and sagittal reformatted images were created and reviewed CONTRAST MATERIAL: Intravenous: Omnipaque 350 Contrast volume:100 mL Oral: No COMPARISON: CT CT CHEST/ABD/PEL W from 01/15/[address] CHEST PE CTA from 01/20/2020 FINDINGS: ABDOMEN: Lung Bases: Increased opacities in the lung bases. Liver: Unchanged heterogeneity of the liver. Stable area of decreased attenuation in the right lobe of the liver. No measurable mass. Portal, Superior Mesenteric, and Splenic Veins: Unremarkable. Gallbladder and Biliary Tract: No cholelithiasis. Stable biliary ducts. Pancreas: Normal density, no inflammatory process. There again seen calcifications in the pancreatic head. Spleen: Within normal limits. Stable capsular calcification. Adrenals: Stable nodularity of the adrenal glands. Kidneys: Normal size, contour and axis. No radiodense stones or obstructive uropathy. No masses seen. Abdominal Aorta: Abdominal portion non-dilated. Atherosclerosis. Bowel: No obstruction or bowel wall thickening. No evidence of an acute appendicitis. There are agai n seen postsurgical changes of a gastric pull-up. Diverticulosis in the colon but no evidence of acu te diverticulitis. There is a large amount of retained stool throughout the colon. There are findin gs suggestive of a prior partial colectomy. Peritoneal Cavity: No ascites, collection or mesenteric inflammatory response. No free air. Lymph Nodes: Within normal limits. Bones: Within normal limits for the patient's age. Soft Tissues: Unremarkable. PELVIS: Bladder: Symmetric distention. There is diffuse thickening of the wall of the urinary bladder. This may be due to bladder outlet obstruction. No inflammatory changes are seen but inflammatory/infecti ous cystitis cannot be entirely excluded. Please correlate clinically. Reproductive Organs: Enlarged prostate gland. Lymph Nodes: Within normal limits. Bones: Degenerative changes. No suspicious lytic or sclerotic lesions. IMPRESSION: 1. Large amount of retained stool suspicious for constipation. 2. Increased opacities in the lung bases. Pneumonia cannot be excluded. 3. Diffuse thickening of the wall of the urinary bladder. This may be due to the enlarged prostate a nd chronic bladder outlet obstruction. Cystitis cannot be entirely excluded. Please correlate clini eva. 4. Findings were discussed with the emergency department on the date of the examination. RADIATION DOSE DELIVERED: 561.46mGy.cm Total DLP DATA REPOSITORY: All CT scans at this facility are submitted to the National Radiology Data Registry (NRDR) Dose Index Registry (DIR) with the [employer] ([employer]). RADIATION OPTIMIZATION: All CT scans at this facility use at least one of these dose optimization te chniques: automated exposure control; mA and/or kV adjustment per patient size (includes targeted exa ms where dose is matched to clinical indication); or iterative reconstruction.
--- NOTE | 2020-07-09 12:42 | DI.CT_ITS ---
EXAM: CT HEAD WO CLINICAL HISTORY: confusion. TECHNIQUE: Imaging Protocol: Axial computed tomography images with coronal and sagittal reformatted images were created and reviewed COMPARISON: CT CT HEAD CERVICAL SPINE WO from 01/29/2019 FINDINGS: The examination is limited due to patient motion artifact. Ventricles and Extra axial spaces: Normal in size and morphology for the patient's age. Hemorrhage: None. Cerebral parenchyma: There are areas of decreased attenuation in the white matter most consistent wit h chronic microvascular ischemic change. No evidence of an acute territorial infarct. Midline shift: None. Brainstem/Cerebellum: Normal. Calvarium: Normal. Visualized Paranasal sinuses/Mastoids: Clear. Soft Tissues: Unremarkable. IMPRESSION: No acute intracranial process. Results of this exam have been verbally communicated with provider. RADIATION DOSE DELIVERED: 708.83mGy.cm Total DLP DATA REPOSITORY: All CT scans at this facility are submitted to the National Radiology Data Registry (NRDR) Dose Index Registry (DIR) with the [employer] (ACR). RADIATION OPTIMIZATION: All CT scans at this facility use at least one of these dose optimization te chniques: automated exposure control; mA and/or kV adjustment per patient size (includes targeted exa ms where dose is matched to clinical indication); or iterative reconstruction.
[2020-07-09 12:57] LABS: Abs Immature Grans 0.07 10^3/uL (0.0-0.06); Absolute Basophil Count 0.02 10^3/uL (0.0-0.2); Absolute Eosinophil Count 0.02 10^3/uL (0.0-0.7); Absolute Lymphocyte Count 1.22 10^3/uL (1.2-3.4); Absolute Monocyte Count 0.86 10^3/uL (0.1-0.8); Absolute Neutrophil Count 9.21 10^3/uL (1.2-6.7); Basophils % 0.2; Eosinophils % 0.2; HCT 42.1 % (40.0-50.0); HGB 13.4 g/dL (13.5-17.5); Immature Grans % 0.6; Lymphocytes % 10.7; MCH 30.2 pg (27.0-33.0); MCHC 31.8 % (32.0-36.0); MCV 94.8 fL (80-95); MPV 9.4 fL (8.0-11.0); Monocytes % 7.5; Neutrophils % 80.8; Nucleated RBC 0 %; Platelet Count 307 10^3/uL (130-400); RBC 4.44 10^6/uL (4.36-5.78); RDW 16.8 % (11.8-14.1); RDW-SD 57.9 fL
[2020-07-09] MEDS: Normal Saline 500 ML IV (12:57)
[2020-07-09 13:16] LABS: ALT 16 U/L (16-63); AST 21 U/L (15-37); Albumin 3.3 g/dL (3.4-5.0); Alkaline Phosphatase 153 U/L (46-116); Anion Gap 12.1 mmol/L (3-11); BUN 28 mg/dL (7-18); Bilirubin, Total 0.8 mg/dL (0.2-1.0); CO2 24.9 mmol/L (21.0-32.0); CREATININE 0.9 mg/dL (0.70-1.30); Calcium 9.6 mg/dL (8.5-10.1); Chloride 102 mmol/L (98-107); Glucose 112 mg/dL (74-106); Lipase 96 U/L (73-393); Magnesium 1.9 mg/dL (1.8-2.4); NT-proBNP 3635 pg/mL (<300); Potassium 3.3 mmol/L (3.5-5.1); Sodium 139 mmol/L (136-145); Total Protein 8.8 g/dL (6.4-8.2)
[2020-07-09 13:22] LABS: Troponin I < 0.05 ng/mL (<0.06)
[2020-07-09 13:41] LABS: Ammonia < 10 umol/L (11-32)
[2020-07-09] MEDS: Omnipaque 350 MG/ML 100 ML BTL IJ (14:04)
--- NOTE | 2020-07-09 14:06 | DI.RAD_ITS ---
EXAM: XR CHEST 1V IN DI DEPT CLINICAL HISTORY: vomiting TECHNIQUE: 2D digital imaging was performed. COMPARISON: CR,XR XR PORTABLE CHEST AP from 01/20/2020 FINDINGS: MEDIASTINUM: Normal. HEART: Normal. PULMONARY VASCULATURE: Normal. LUNGS: Increased interstitial lung markings present. This may represent edema, scarring or pneumonia . PLEURAL SPACE: No pleural effusion or pneumothorax. BONE:Within normal limits for the patient's age. Sternal wires are again seen in place. There are s urgical clips seen overlying the left upper quadrant of the abdomen in the mediastinum. There is mil d elevation of the left hemidiaphragm. OTHER FINDINGS:Normal. IMPRESSION: Increased interstitial lung markings particularly in the bases. This may represent atelectasis, dinora a or pneumonia. Please correlate clinically. DATA REPOSITORY: RADIATION DOSE DELIVERED:
[2020-07-09 14:31] LABS: Bilirubin Negative (Negative); Blood Negative (Negative); Clarity Clear (Clear); Glucose Negative (Negative); Ketones Trace mg/dL (Negative); Leukocyte Esterase Negative (Negative); Nitrite Negative (Negative); Specific Gravity 1.015 (1.005-1.025); pH 5.5 (5-8)
[2020-07-09 14:43] LABS: Bacteria Rare HPF (Negative); C & S Indicated? No; Casts Negative LPF (Negative); Crystals Negative HPF (Negative); Epithelial Cells Rare HPF (Negative); Mucus Negative (Negative); Other Cells Few Spermatozoa (Negative); RBC Negative HPF (0-2); WBC 0-2 HPF (0-5)
--- NOTE | 2020-07-09 15:15 | DI.US_ITS ---
EXAM: US LOWER EXTREMITY VENOUS RT CLINICAL HISTORY: swelling TECHNIQUE: Right lower extremity venous ultrasound performed using grayscale, color-flow, and spectr al Doppler analysis. COMPARISON: No exams were available for comparison FINDINGS: The right common femoral, femoral and popliteal veins demonstrate normal compressibility, augmentatio n, and color Doppler. The posterior tibial veins are patent. The saphenofemoral junction is unremark able. There is no evidence of a Harris cyst. There is a 4.2 x 1.2 x 3.1 cm fluid collection in the s oft tissues if the medial ankle. The finding is nonspecific. This may represent a hematoma in the a ppropriate clinical setting. IMPRESSION: No evidence of a right lower extremity DVT. DATA REPOSITORY:
[2020-07-09 16:02] LABS: Source Nasopharynx
[2020-07-09] MEDS: Metoprolol 12.5 MG TAB PO (16:03)
--- NOTE | 2020-07-09 16:18 | HPE_ITS ---
Date of service: 07/09/20 Time of Service: 16:19 Assessment and Plan Assessment and plan (1) CAD (coronary artery disease): Status: Chronic Assessment and plan: No c/o CP. Troponin negative. Cont ASA, Atorvastatin, and metoprolol. (2) Afib: Status: Chronic Assessment and plan: Ekg shows afib. Cont oral metoprolol 12.5mg po BID IV lopressor prn for HR > 120. Telemetry (3) Hypertension: Status: Chronic Assessment and plan: Cont metoprolol BP 156/70 most recently PRN clonidine for SBP > 180. (4) Alcohol abuse: Status: None Assessment and plan: Confusion likely related to alcohol withdrawal. Unsure why he developed emesis and then was unable to drink his routine amount of alcohol for 3 days. Possibly PNA. CIWA protocol with prn Lorazepam. (5) Confusion state: Status: Acute Assessment and plan: Ammonia negative. CT head neg. WBC count mildly elevated. CXR shows bibasilar atelectasis vs infiltrates. Likely the former but cannot be certain. Rapid COVID testing ordered. If Covid negative will consider PNA treatment if WBC count doesn't normalize (may be elevated d/t emesis/stress rxt). . (6) History of GI bleed: Status: Acute Assessment and plan: Cont Protonix. Hgb 13.4. No report of melena, hematochezia, hematemesis. (7) Chronic obstructive lung disease: Status: None Assessment and plan: No evidence of exacerbation. Cont home Combivent Respimat. PRN albuterol neb Incentive spirometry if capable of performing given his confusional state. History of Present Illness History of Present Illness Chief Complaint: Confusion and weakness Narrative: This is a 69 yo male with a PMH of acute on chronic diastolic CHF, CAD, Afib, HTN, pulmonary HTN, Tricuspid regurgitation. He presented to the ED with co nfusion, weakness, vomiting and anorexia. He and his roommate seema endorse that for 3 days he had been experiencing anorexia and emesis. On presentation to the ED he complained only of weakness. Seema endorsed that the patient drinks each night; did not quantify other than a lot. He has not had any recent medication changes. No falls. His confusion was first noted in the AM of admission. He has had no fever, cough/sputum, diarrhea, abd pain. Review of Systems All systems reviewed & are unremarkable except as noted in HPI and below PFSH Medical History (Updated 07/09/20 @ 16:33 by Mio Navarro MD) Adenocarcinoma of esophagus Afib Alcohol abuse Atrial flutter CAD (coronary artery disease) Chest wall pain Chronic obstructive lung disease Coronary arteriosclerosis Diabetes mellitus Difficulty reading Diuresis Edema Epididymitis, right Essential hypertension GERD (gastroesophageal reflux disease) GI bleed Hx of esophageal malignancy Hydrocele, right Hyperlipidemia Hypertension Low back pain Pancreatitis Solitary pulmonary nodule Stomach cancer Tobacco abuse Tricuspid regurgitation Weight loss Surgical History cardiac cath Coronary Artery Bypass Gaft (CABG) EGD - IV Sedation Esophagectomy H/O colonoscopy (2007) H/O colonoscopy (04/14/18) dr geller, sigmoid diverticulosis, repeat 10 years History of esophagogastroduodenoscopy (EGD) (09/2017) History of hydrocelectomy History of right inguinal hernia repair repair times two sugrical flap of unhealing wound Family History Mother No problems noted. Father No problems noted. Social History Smoking/Tobacco Use Status: Current every day Tobacco Type: cigarettes Smoking packs per day: 1 Smoking cigarettes per day: 20.0 Years smoked: 50 Smoking pack- years: 50.00 Smoking risk assessment performed?: Yes Alcohol Intake: current Alcohol Intake frequency: 3 or more drinks per day Alcohol type: beer Drug use: Never Substance use type: does not use What type of physical activity do you participate in: none Do you feel safe at home: Yes Do you feel safe in your relationship?: Yes Meds Home Medications and Allergies Home Medications Medication Instructions Recorded Confirmed Type bupropion HCl (smoking deter) 150 mg PO BID 08/04/12 07/09/20 History folic acid 1 mg PO DAILY 08/04/12 07/09/20 History aspirin [Ecotrin Low Strength] 81 mg PO DAILY 04/09/13 07/09/20 History Spiriva with HandiHaler 2 puff INHALATION DAILY 01/25/15 07/09/20 History atorvastatin [Lipitor] 10 mg PO HS 01/25/15 07/09/20 History cholecalciferol (vitamin D3) 2,000 units PO DAILY 04/12/16 07/09/20 History nitroglycerin [Nitrostat] 0.4 mg SUBLINGUAL . DIRECTED PRN 04/12/16 07/09/20 History pantoprazole 40 mg PO DAILY 01/15/17 07/09/20 History lidocaine 5 % topical cream 1 applic TP QID 02/10/18 07/09/20 History multivitamin 1 cap PO DAILY 02/10/18 07/09/20 History sucralfate 100 mg/mL oral 10 ml PO QID 02/10/18 07/09/20 History suspension metoprolol tartrate 12.5 mg PO BID 04/12/18 07/09/20 History ipratropium 20 mcg-albuterol 100 1 puff IH TID 05/02/19 07/09/20 History mcg/actuation mist for inhalation Ensure Original See Rx Instructions .ROUTE .COMPLEX 01/15/20 07/09/20 History bumetanide 2 mg PO BID #20 tab 01/15/20 07/09/20 Rx gabapentin 300 mg PO TID 01/15/20 07/09/20 History hydrocodone-acetaminophen 1 tab PO TID 07/09/20 07/09/20 History spironolactone 25 mg PO DAILY 07/09/20 07/09/20 History Allergies Allergy/AdvReac Type Severity Reaction Status Date / Time No Known Allergies Allergy Verified 07/09/20 12:57 Exam Const General: cooperative and no acute distress Nutritional Appearance: thin Orientation: alert and other (oriented to month. Could not name the current President when in the ED) Limitations: altered mental status and no behavioral limitations [facility] Head: normocephalic and atraumatic Ears: hearing grossly normal bilaterally General nose exam: external nose normal Eyes General: appearance normal, both eyes and all related structures Sclera: sclerae normal EOM: EOM intact bilaterally Neck Neck: full ROM and no JVD Resp Effort & Inspection: normal respiratory effort Auscultation: clear to auscultation bilaterally and diminished lung sounds Cardio Other: Irreg Irreg GI Palpation: soft and nontender Skin General skin exam: no rashes or lesions noted and no ecchymosis Neuro General: moves all extremities Cranial Nerves: tongue midline Cognition: abnormal cognition Speech: speech normal Extrem General: no calf tenderness and edema Laterality: bilateral Psych Appearance: grossly normal Affect: blunted Results Labs Result diagrams: 07/09/20 12:43 07/09/20 12:43 Labs: Laboratory Results - last 24 hr 07/09/20 07/09/20 07/09/20 12:43 12:43 13:11 WBC 11.40 H RBC 4.44 Hgb 13.4 L Hct 42.1 MCV 94.8 MCH 30.2 MCHC 31.8 L RDW 16.8 H Plt Count 307 MPV 9.4 Immature Gran % 0.6 Neutrophils % 80.8 Lymphocytes % 10.7 Monocytes % 7.5 Eosinophils % 0.2 Basophils % 0.2 Nucleated RBC % 0 Absolute Neutrophils 9.21 H Absolute Lymphocytes 1.22 Absolute Monocytes 0.86 H Absolute Eosinophils 0.02 Absolute Basophils 0.02 Sodium 139 Potassium 3.3 L Chloride 102 Carbon Dioxide 24.9 Anion Gap 12.1 H BUN 28 H Creatinine 0.9 Estimated GFR/1.73 m2 >= 60.00 Glucose 112 H Calcium 9.6 Magnesium 1.9 Total Bilirubin 0.8 AST 21 ALT 16 Alkaline Phosphatase 153 H Ammonia < 10 L Troponin I < 0.05 NT-Pro-B Natriuret Pep 3635 H Total Protein 8.8 H Albumin 3.3 L Lipase 96 TSH Urine Color Urine Clarity Urine pH Ur Specific [place] Urine Protein Urine Ketones Urine Blood Urine Nitrite Urine Bilirubin Urine Urobilinogen Ur Leukocyte Esterase Urine RBC Urine WBC Ur Epithelial Cells Urine Crystals Urine Bacteria Urine Casts Urine Mucus Urine Other Ur Culture Indicated? Urine Glucose SARS-CoV-2 (PCR) Nasopharyn COVID-19 PCR Ref Test Perform Site 07/09/20 07/09/20 07/09/20 14:25 15:40 15:40 WBC RBC Hgb Hct MCV MCH MCHC RDW Plt Count MPV Immature Gran % Neutrophils % Lymphocytes % Monocytes % Eosinophils % Basophils % Nucleated RBC % Absolute Neutrophils Absolute Lymphocytes Absolute Monocytes Absolute Eosinophils Absolute Basophils Sodium Potassium Chloride Carbon Dioxide Anion Gap BUN Creatinine Estimated GFR/1.73 m2 Glucose Calcium Magnesium Total Bilirubin AST ALT Alkaline Phosphatase Ammonia Troponin I NT-Pro-B Natriuret Pep Total Protein Albumin Lipase TSH Cancelled Urine Color Yellow Urine Clarity Clear Urine pH 5.5 Ur Specific [place] 1.015 Urine Protein 30 H Urine Ketones Trace H Urine Blood Negative Urine Nitrite Negative Urine Bilirubin Negative Urine Urobilinogen 1.0 H Ur Leukocyte Esterase Negative Urine RBC Negative Urine WBC 0-2 Ur Epithelial Cells Rare Urine Crystals Negative Urine Bacteria Rare Urine Casts Negative Urine Mucus Negative Urine Other Few spermatozoa Ur Culture Indicated? No Urine Glucose Negative SARS-CoV-2 (PCR) Cancelled Nasopharyn COVID-19 PCR Cancelled Ref Test Perform Site Cancelled Last Vital Signs Temp 36.5 C 07/09/20 12:21 Pulse 114 H 07/09/20 16:01 Resp 15 07/09/20 16:01 BP 156/70 H 07/09/20 16:01 Pulse Ox 96 07/09/20 16:00 COVID-19 Screening Have you, or household traveled for leisure in last 14 days?: No Had IN PERSON contact w/suspected or confirmed C-19 person: No
[2020-07-09 16:33] LABS: TSH (W/Ref FT4) 1.35 uIU/mL (0.36-3.74)
[2020-07-09 17:02] LABS: COVID-19 PCR Negative (Negative); Influenza A PCR Negative (Negative); Influenza B PCR Negative (Negative); RSV PCR Negative (Negative)
[2020-07-09] MEDS: Normal Saline 1,000 ML 80 ML IV (17:05)
[2020-07-09] MEDS: Nicotine 14 MG/24 HR PATCH TD (17:31)
[2020-07-09] MEDS: Metoprolol 25 MG TAB 12.5 MG PO (20:51)
[2020-07-09] MEDS: Bumetanide 1 MG TAB 2 MG PO (20:51)
[2020-07-09] MEDS: Ipratropium/Albuterol 4 GM 120 PUFF INH IH (20:53)
[2020-07-09] MEDS: Gabapentin 300 MG CAP PO (20:53)
[2020-07-09] MEDS: Polyethylene Glycol 3350 17 GM PACKET PO (20:53)
[2020-07-09] MEDS: Sucralfate 1 GM TAB PO (21:30)
[2020-07-09] MEDS: Atorvastatin 10 MG TAB PO (21:30)
[2020-07-10] VITALS (8 sets, daily range): BP systolic 107–144; BP diastolic 68–86; PULSE 59–97; RESP 16–19; TEMP 36.3–37.2; O2SAT 92–97
[2020-07-10] MEDS: Normal Saline 1,000 ML 80 ML IV ×2 (05:23→17:27)
[2020-07-10 07:03] LABS: Anion Gap 9.3 mmol/L (3-11); BUN 22 mg/dL (7-18); CO2 26.7 mmol/L (21.0-32.0); CREATININE 0.9 mg/dL (0.70-1.30); Calcium 9.2 mg/dL (8.5-10.1); Chloride 107 mmol/L (98-107); Glucose 138 mg/dL (74-106); Magnesium 1.7 mg/dL (1.8-2.4); Sodium 143 mmol/L (136-145)
[2020-07-10 07:05] LABS: Abs Immature Grans 0.08 10^3/uL (0.0-0.06); Absolute Basophil Count 0.04 10^3/uL (0.0-0.2); Absolute Eosinophil Count 0.11 10^3/uL (0.0-0.7); Absolute Lymphocyte Count 1.47 10^3/uL (1.2-3.4); Absolute Monocyte Count 0.98 10^3/uL (0.1-0.8); Basophils % 0.4; Eosinophils % 1.1; HCT 39.8 % (40.0-50.0); HGB 12.9 g/dL (13.5-17.5); Immature Grans % 0.8; Lymphocytes % 15.3; MCH 30.4 pg (27.0-33.0); MCHC 32.4 % (32.0-36.0); MCV 93.9 fL (80-95); MPV 9.6 fL (8.0-11.0); Monocytes % 10.2; Neutrophils % 72.2; Nucleated RBC 0 %; Platelet Count 294 10^3/uL (130-400); RBC 4.24 10^6/uL (4.36-5.78); RDW 16.6 % (11.8-14.1); RDW-SD 57.1 fL; WBC 9.58 10^3/uL (4.4-10.8)
[2020-07-10 07:06] LABS: Potassium 2.8 mmol/L (3.5-5.1)
[2020-07-10] MEDS: Nicotine 14 MG/24 HR PATCH TD (07:54)
[2020-07-10] MEDS: Polyethylene Glycol 3350 17 GM PACKET PO ×2 (07:56→20:06)
[2020-07-10] MEDS: Aspirin E.C. 81 MG TABEC PO (07:56)
[2020-07-10] MEDS: Acetaminophen 325 MG TAB 650 MG PO ×2 (07:56→14:24)
[2020-07-10] MEDS: Sucralfate 1 GM TAB PO ×4 (08:00→21:35)
[2020-07-10] MEDS: Gabapentin 300 MG CAP PO ×3 (08:00→20:08)
[2020-07-10] MEDS: Spironolactone 50 MG TAB 25 MG PO (08:00)
[2020-07-10] MEDS: Pantoprazole 40 MG TABCR PO (08:01)
[2020-07-10] MEDS: Metoprolol 25 MG TAB 12.5 MG PO ×2 (08:01→20:08)
[2020-07-10] MEDS: Multivitamin TAB 1 TAB PO (08:01)
[2020-07-10] MEDS: Folic Acid 1 MG TAB PO (08:02)
[2020-07-10] MEDS: Ipratropium/Albuterol 4 GM 120 PUFF INH IH ×3 (09:17→20:06)
[2020-07-10] MEDS: Magnesium Oxide 400 MG TAB PO ×2 (09:31→21:35)
[2020-07-10] MEDS: POTASSIUM CHLORIDE 10 MEQ/100 ML BAG 100 MEQ IVPB (09:32)
[2020-07-10] MEDS: POTASSIUM CHLORIDE 10 MEQ/100 ML BAG 80 MEQ IVPB (10:46)
--- NOTE | 2020-07-10 10:49 | PGE_ITS ---
Date of Service Date of service: 07/10/20 Time of Service: 08:04 Assessment and Plan Assessment and plan (1) History of GI bleed: Status: Acute Assessment and plan: Hgb 12.9; previous readings in Jan and Feb were in the 12's. No active bleeding noted. (2) Chronic obstructive lung disease: Status: None Assessment and plan: Cont Combivent Respmat and prn albuterol. Cont IS (3) Confusion state: Status: Acute Assessment and plan: Appears to be improving. The concern has been with potential alcohol withdrawal; no scoring on CIWA since admission. (4) Alcohol abuse: Status: None Assessment and plan: He states I don't drink much. His roommate endorsed that he did drink nightly. Had not had any Etoh intake for several days prior to arrival. He states he had been coughing up phlegm, not vomitting during those several days. (5) Bilateral lower extremity edema: Status: Acute Assessment and plan: Chronic; stable. (6) Afib: Status: Chronic Assessment and plan: Cont metoprolol 12.5mg BID (7) Hypertension: Status: Chronic Assessment and plan: Cont his routine metoprolol BP controlled. (8) Mild bibasilar atelectasis: Status: Acute Assessment and plan: IS initiated. He demonstrates proper use. Possibly pneumonitis; had mildly elevated WBC count on arrival that has normalized w/o antibiotic treatment. COVID-19 negative. Could possibly be pulmonary edema. He has been continued on his home Bumex and spironolactone. (9) Hypokalemia: Status: Acute Assessment and plan: K on admission was 3.3, now 2.8. IV and oral replacement. Is on Bumex which is not K-sparing, but is on Spironolactone that is K-sparing. Monitor. Subjective Subjective Patient reports: no new complaints and feels better Interval history since last seen: He notes that he is aware of his recent confusion but feels normal today. No F/C, N/V/abd pain, cough, CP/palpitations. Exam Const General: no acute distress Nutritional Appearance: thin Orientation: alert, oriented to person, oriented to place and oriented to time (Confused about the current year) Eyes Sclera: sclerae normal Pupils: PERRL Resp Effort & Inspection: normal respiratory effort Auscultation: clear to auscultation bilaterally and diminished lung sounds Cardio Other: Irreg Irreg GI Palpation: soft and nontender Skin General skin exam: no rashes or lesions noted Extrem General: no calf tenderness and edema Psych Appearance: grossly normal Speech and Movement: speech and movement normal Affect: normal affect (Was noted to be blunted on admission) Objective Last Vital Signs Temp 37.1 C 07/10/20 07:29 Pulse 59 L 07/10/20 07:29 Resp 16 07/10/20 07:29 BP 118/68 07/10/20 07:29 Pulse Ox 92 07/10/20 07:29 Laboratory Results - last 24 hr 07/09/20 07/09/20 07/09/20 12:43 12:43 12:43 WBC 11.40 H RBC 4.44 Hgb 13.4 L Hct 42.1 MCV 94.8 MCH 30.2 MCHC 31.8 L RDW 16.8 H Plt Count 307 MPV 9.4 Immature Gran % 0.6 Neutrophils % 80.8 Lymphocytes % 10.7 Monocytes % 7.5 Eosinophils % 0.2 Basophils % 0.2 Nucleated RBC % 0 Absolute Neutrophils 9.21 H Absolute Lymphocytes 1.22 Absolute Monocytes 0.86 H Absolute Eosinophils 0.02 Absolute Basophils 0.02 Sodium 139 Potassium 3.3 L Chloride 102 Carbon Dioxide 24.9 Anion Gap 12.1 H BUN 28 H Creatinine 0.9 Estimated GFR/1.73 m2 >= 60.00 Glucose 112 H Calcium 9.6 Magnesium 1.9 Total Bilirubin 0.8 AST 21 ALT 16 Alkaline Phosphatase 153 H Ammonia Troponin I < 0.05 NT-Pro-B Natriuret Pep 3635 H Total Protein 8.8 H Albumin 3.3 L Lipase 96 TSH 1.35 Urine Color Urine Clarity Urine pH Ur Specific [place] Urine Protein Urine Ketones Urine Blood Urine Nitrite Urine Bilirubin Urine Urobilinogen Ur Leukocyte Esterase Urine RBC Urine WBC Ur Epithelial Cells Urine Crystals Urine Bacteria Urine Casts Urine Mucus Urine Other Ur Culture Indicated? Urine Glucose COVID-19 Source SARS-CoV-2 (PCR) Nasopharyn COVID-19 PCR Influenza Type A (PCR) Influenza Type B (PCR) RSV (PCR) Ref Test Perform Site 07/09/20 07/09/20 07/09/20 13:11 14:25 15:40 WBC RBC Hgb Hct MCV MCH MCHC RDW Plt Count MPV Immature Gran % Neutrophils % Lymphocytes % Monocytes % Eosinophils % Basophils % Nucleated RBC % Absolute Neutrophils Absolute Lymphocytes Absolute Monocytes Absolute Eosinophils Absolute Basophils Sodium Potassium Chloride Carbon Dioxide Anion Gap BUN Creatinine Estimated GFR/1.73 m2 Glucose Calcium Magnesium Total Bilirubin AST ALT Alkaline Phosphatase Ammonia < 10 L Troponin I NT-Pro-B Natriuret Pep Total Protein Albumin Lipase TSH Urine Color Yellow Urine Clarity Clear Urine pH 5.5 Ur Specific [place] 1.015 Urine Protein 30 H Urine Ketones Trace H Urine Blood Negative Urine Nitrite Negative Urine Bilirubin Negative Urine Urobilinogen 1.0 H Ur Leukocyte Esterase Negative Urine RBC Negative Urine WBC 0-2 Ur Epithelial Cells Rare Urine Crystals Negative Urine Bacteria Rare Urine Casts Negative Urine Mucus Negative Urine Other Few spermatozoa Ur Culture Indicated? No Urine Glucose Negative COVID-19 Source SARS-CoV-2 (PCR) Cancelled Nasopharyn COVID-19 PCR Cancelled Influenza Type A (PCR) Influenza Type B (PCR) RSV (PCR) Ref Test Perform Site Cancelled 07/09/20 07/09/20 07/10/20 15:40 15:51 06:35 WBC RBC Hgb Hct MCV MCH MCHC RDW Plt Count MPV Immature Gran % Neutrophils % Lymphocytes % Monocytes % Eosinophils % Basophils % Nucleated RBC % Absolute Neutrophils Absolute Lymphocytes Absolute Monocytes Absolute Eosinophils Absolute Basophils Sodium 143 Potassium 2.8 L* Chloride 107 Carbon Dioxide 26.7 Anion Gap 9.3 BUN 22 H D Creatinine 0.9 Estimated GFR/1.73 m2 >= 60.00 Glucose 138 H Calcium 9.2 Magnesium 1.7 L Total Bilirubin AST ALT Alkaline Phosphatase Ammonia Troponin I NT-Pro-B Natriuret Pep Total Protein Albumin Lipase TSH Cancelled Urine Color Urine Clarity Urine pH Ur Specific [place] Urine Protein Urine Ketones Urine Blood Urine Nitrite Urine Bilirubin Urine Urobilinogen Ur Leukocyte Esterase Urine RBC Urine WBC Ur Epithelial Cells Urine Crystals Urine Bacteria Urine Casts Urine Mucus Urine Other Ur Culture Indicated? Urine Glucose COVID-19 Source Nasopharynx SARS-CoV-2 (PCR) Negative Nasopharyn COVID-19 PCR Influenza Type A (PCR) Negative Influenza Type B (PCR) Negative RSV (PCR) Negative Ref Test Perform Site 07/10/20 06:35 WBC 9.58 RBC 4.24 L Hgb 12.9 L Hct 39.8 L MCV 93.9 MCH 30.4 MCHC 32.4 RDW 16.6 H Plt Count 294 MPV 9.6 Immature Gran % 0.8 Neutrophils % 72.2 Lymphocytes % 15.3 Monocytes % 10.2 Eosinophils % 1.1 Basophils % 0.4 Nucleated RBC % 0 Absolute Neutrophils 6.90 H Absolute Lymphocytes 1.47 Absolute Monocytes 0.98 H Absolute Eosinophils 0.11 Absolute Basophils 0.04 Sodium Potassium Chloride Carbon Dioxide Anion Gap BUN Creatinine Estimated GFR/1.73 m2 Glucose Calcium Magnesium Total Bilirubin AST ALT Alkaline Phosphatase Ammonia Troponin I NT-Pro-B Natriuret Pep Total Protein Albumin Lipase TSH Urine Color Urine Clarity Urine pH Ur Specific [place] Urine Protein Urine Ketones Urine Blood Urine Nitrite Urine Bilirubin Urine Urobilinogen Ur Leukocyte Esterase Urine RBC Urine WBC Ur Epithelial Cells Urine Crystals Urine Bacteria Urine Casts Urine Mucus Urine Other Ur Culture Indicated? Urine Glucose COVID-19 Source SARS-CoV-2 (PCR) Nasopharyn COVID-19 PCR Influenza Type A (PCR) Influenza Type B (PCR) RSV (PCR) Ref Test Perform Site
--- NOTE | 2020-07-10 11:43 | PHA.REVIEW ---
Pharmacy Admission Review - Admission Clinical Review (Last Updated 07/09/20 @ 16:33 by Mio Navarro MD) Hypokalemia (Acute) Mild bibasilar atelectasis (Acute) History of GI bleed (Acute) Confusion state (Acute) Bilateral lower extremity edema (Acute) No Known Allergies Allergy (Verified 07/09/20 12:57) Height 5 ft 6 in - Renal Dosing Renal Dosing: BUN 22 mg/dL (7-18) H D 07/10/20 06:35 Creatinine 0.9 mg/dL (0.70-1.30) 07/10/20 06:35 Medications needing adjustments: Reviewed (eCrCl 63.18ml/min - meds ok) - Anticoagulation Anticoagulation: Hgb 12.9 g/dL (13.5-17.5) L 07/10/20 06:35 Hct 39.8 % (40.0-50.0) L 07/10/20 06:35 Plt Count 294 10^3/uL (130-400) 07/10/20 06:35 Creatinine 0.9 mg/dL (0.70-1.30) 07/10/20 06:35 Therapeutic Anticoagulation: Reviewed Medications: Aspirin - Opiate Usage Evaluate Pain Scale/Pains Meds: Reviewed Scheduled Bowel Reg ordered if on Opiates?: Yes - Relevant Labs Sodium 143 mmol/L (136-145) 07/10/20 06:35 Potassium 2.8 mmol/L (3.5-5.1) L* 07/10/20 06:35 Chloride 107 mmol/L (98-107) 07/10/20 06:35 Magnesium 1.7 mg/dL (1.8-2.4) L 07/10/20 06:35 Electrolytes, C-Reactive P, ESR: Reviewed (potassium being repleted with 20meq PO and 30meq IV; Mag 400mg PO BID started) - DM Control DM Control: Glucose 138 mg/dL (74-106) H 07/10/20 06:35 Insulin Dosing: N/A - Heart Failure/NV Heart Failure/NV: Troponin I < 0.05 ng/mL (<0.06) 07/09/20 12:43 NT-Pro-B Natriuret Pep 3635 pg/mL (<300) H 07/09/20 12:43 EF%, PERLA's, B-Blockers, Diuretics: Reviewed (metoprolol, bumex, clonidine, spironolactone) - BP Control BP Control: Blood Pressure 144/86 Blood Pressure 118/68 Blood Pressure 128/80 If elevated: Reviewed - Qtc Review If Elevated: Reviewed List meds needing interventions: qtc 424 on admission - IV to PO Switch IV Medications: Reviewed - Home Meds Home Med List reviewed: Intervened Relevent Home Meds Not ordered & why?: Spiriva (does have combivent ordered) -- per PCP he is to be using both although pt hasn't filled combivent in nearly a year; all other home meds ordered - Current meds Current Medication Order Review: Reviewed - Comments Comments/Follow Ups: Bumex held due to potassium level this AM; monitor for etoh withdrawal, WBC did normalize, Hb dropped but has been in the 12s in the past
[2020-07-10] MEDS: Bumetanide 1 MG TAB 2 MG PO ×2 (11:50→20:07)
[2020-07-10] MEDS: Potassium Chloride 20 MEQ TABCR PO (11:50)
[2020-07-10] MEDS: POTASSIUM CHLORIDE 10 MEQ/100 ML BAG 50 MEQ IVPB (12:10)
--- NOTE | 2020-07-10 14:00 | INITIAL_ITS ---
- If Service Date Differs Date of service: 07/10/20 Time of Service: 14:00 Care Management Initial Assess REASON FOR HOSPITALIZATION:: Acute Mental Status Changes PAST MEDICAL HISTORY/PAST SURGICAL HISTORY:: Adenocarcinoma of esophagus, A-fib, alcohol abuse, CAD, chest wall pain, chronic obstructive lung disease, coronary arteriosclerosis, DM, difficulty reading, diuresis, edema, epididymitis (right), essential hypertension, GERD, GI bleed, esophageal malignancy, hydrocele, hyperlipidemia, hypertension, low back pain, pancreatitis, solitatry pulmonary nodule, stomach cancer, tobacco abuse, tricuspid regurgitation, weight loss, cardiac cath, CABG, EGD-IV Sedation, esophagectomy, colonoscopy, esophagogastroduedenoscopy, hydrocelectomy, right inguinal hernia repair, surgical flap of unhealing wound PREVIOUS FUNCTIONAL STATUS/SOCIAL/FAMILY SUPPORTS:: Nain resides in [facility] with his roomate, Lyudmila. He is independent at baseline in the community with ongoing medical issues including CHF and COPD. CURRENT FUNCTIONAL STATUS:: Ilia is sleeping when CM attempts to meet with him, CM will continue to attempt to connect with Ilia. Per report, he is presenting as confused which is not his baseline. This is being attributed to ETOH withdrawal though he is not currently scoring on CIWA; CM continues to follow. ADVANCE DIRECTIVES:: On file, Chrissy Stewart (sister) as agent. Has patient been provided with info about the portal/API?: No Did the patient sign up for the portal?: No INSURANCE COVERAGE / FINANCIAL ISSUES:: [facility]. [facility] CURRENT HOME/COMMUNITY SERVICES/EQUIPMENT:: Ilia was agreeable to home health nursing and a referral to [facility] for Meals on Wheels and Options counseling and Community based CM which were completed last January-CM will follow up on outcome of referrals. PRIMARY CARE PHYSICIAN:: Silvina Perdue M.D. POTENTIAL DISCHARGE NEEDS:: Further evaluations prior to discharge to determine service needs and recommendations. Follow up appointments. PATIENT/FAMILY EDUCATION NEEDS:: Review discharge instructions, discuss Ask Me Three. ANTICIPATED BARRIERS TO DISCHARGE:: None identified. TRANSPORTATION:: TBD by disposition and mobility. PLAN:: Ilia continues to be closely monitored and treated. He remains on observation status at this time, undetermined discharge plan; CM continues to follow. Transportation TBD by disposition and need.
[2020-07-10] MEDS: HYDROcodone 10/Acetaminophen 325 TAB PO (16:47)
[2020-07-10] MEDS: Atorvastatin 10 MG TAB PO (21:35)
[2020-07-11 00:19] VITALS: BP 100/68; PULSE 72; RESP 18; TEMP 36.4; O2SAT 95
[2020-07-11 03:39] VITALS: BP 99/58; PULSE 94; RESP 17; TEMP 36.7; O2SAT 94
[2020-07-11] MEDS: Normal Saline 1,000 ML 80 ML IV (05:29)
[2020-07-11 07:02] VITALS: PULSE 88
[2020-07-11 07:05] LABS: Anion Gap 9.1 mmol/L (3-11); BUN 22 mg/dL (7-18); CO2 26.9 mmol/L (21.0-32.0); CREATININE 0.9 mg/dL (0.70-1.30); Calcium 8.7 mg/dL (8.5-10.1); Chloride 105 mmol/L (98-107); Glucose 98 mg/dL (74-106); Potassium 3.5 mmol/L (3.5-5.1); Sodium 141 mmol/L (136-145)
[2020-07-11] MEDS: Ipratropium/Albuterol 4 GM 120 PUFF INH IH (08:05)
[2020-07-11] MEDS: Nicotine 14 MG/24 HR PATCH TD (08:12)
[2020-07-11] MEDS: Normal Saline Flush 10 ML SYR IVP (08:13)
[2020-07-11] MEDS: Polyethylene Glycol 3350 17 GM PACKET PO (08:13)
[2020-07-11 08:14] VITALS: BP 126/80; PULSE 71; RESP 16; TEMP 36.7; O2SAT 97
[2020-07-11] MEDS: Sucralfate 1 GM TAB PO ×2 (08:14→10:37)
[2020-07-11] MEDS: Pantoprazole 40 MG TABCR PO (08:14)
[2020-07-11] MEDS: Metoprolol 25 MG TAB 12.5 MG PO (08:14)
[2020-07-11] MEDS: Bumetanide 1 MG TAB 2 MG PO (08:14)
[2020-07-11] MEDS: Gabapentin 300 MG CAP PO (08:15)
[2020-07-11] MEDS: Spironolactone 25 MG TAB PO (08:15)
[2020-07-11] MEDS: Aspirin E.C. 81 MG TABEC PO (08:15)
[2020-07-11] MEDS: Folic Acid 1 MG TAB PO (08:15)
[2020-07-11] MEDS: Multivitamin TAB 1 TAB PO (08:15)
--- NOTE | 2020-07-11 09:56 | DSE_ITS ---
Date of service: 07/11/20 Time of Service: 09:56 DS: Diagnosis Discharge Diagnosis (1) History of GI bleed: Status: Acute (2) Chronic obstructive lung disease: Status: None (3) Confusion state: Status: Acute (4) Alcohol abuse: Status: None (5) Bilateral lower extremity edema: Status: Acute (6) Afib: Status: Chronic (7) Hypertension: Status: Chronic (8) Mild bibasilar atelectasis: Status: Acute (9) Hypokalemia: Status: Acute Discharge Plan Disposition Patient Disposition: HOME Condition: Improving Discharge Details Reason For Visit: ACUTE MENTAL STATUS CHANGES Admit Date/Time: 07/09/20 15:32 Admit Provider: Mio Navarro Attending Provider: Mio Navarro Primary Care Provider: Silvina Perdue [facility] Course Hospital Course: This is a 69 yo male with a PMH of acute on chronic diastolic CHF, CAD, Afib, HTN, pulmonary HTN, Tricuspid regurgitation. He presented to the ED with confusion, weakness, vomiting and anorexia. He and his roommate seema endorse that for 3 days he had been experiencing anorexia and emesis. On presentation to the ED he complained only of weakness. Seema endorsed that the patient drinks each night; did not quantify other than a lot. He has not had any recent medication changes. No falls. His confusion was first noted in the AM of admission. He has had no fever, cough/sputum, diarrhea, abd pain. The following day the patient stated he had not been vomitting, but rather coughing up clear phlegm and possibly some reflux. His CXR showed increased interstitial lung markings particularly in the bases; differential of atelectasis, edema or pneumonia. Incentive spirometry initiated. His initial mildly elevated WBC count of 11.4 normalized to 9.58 w/o antibiotic intervention. His mental status improved and he felt his cognition was at his baseline. He endorsed being aware that he had not been thinking clearly but that this had resolved. He downplayed alcohol intake and stated that he drank sometimes. Follow up with PCP in 1-2 weeks. Home Meds and New Rx's Prescriptions: Continued sucralfate [Carafate] 100 mg/mL suspension 10 ml PO QID RF: 0 lidocaine 5 % cream 1 applic TP QID RF: 0 multivitamin capsule 1 cap PO DAILY RF: 0 Combivent Respimat 20-100 mcg/actuation mist 2 puff IH TID RF: 0 folic acid 1 MG tablet 1 mg PO DAILY RF: 0 bupropion HCl (smoking deter) 150 MG tablet extended release 12 hr 150 mg PO BID RF: 0 aspirin [Ecotrin Low Strength] 81 MG tablet,delayed release (DR/EC) 81 mg PO DAILY RF: 0 atorvastatin [Lipitor] 10 MG tablet 10 mg PO HS RF: 0 nitroglycerin [Nitrostat] 0.4 MG tablet, sublingual 0.4 mg Sublingual . DIRECTED PRN (Reason: Chest Pain) RF: 0 cholecalciferol (vitamin D3) 1,000 UNITS tablet 2,000 units PO DAILY RF: 0 gabapentin 300 mg capsule 300 mg PO TID RF: 0 Ensure Original Liquid See Rx Instructions .ROUTE .COMPLEX RF: 0 bumetanide 2 mg tablet 2 mg PO BID Qty: 20 RF: 0 hydrocodone-acetaminophen 10-325 mg tablet 1 tab PO TID RF: 0 spironolactone 25 mg tablet 25 mg PO DAILY RF: 0 pantoprazole 40 MG tablet,delayed release (DR/EC) 40 mg PO DAILY RF: 0 metoprolol tartrate 25 mg Tablet 12.5 mg PO BID RF: 0 Discontinued Spiriva with HandiHaler 18 MCG capsule, w/inhalation device 2 puff Inhalation DAILY RF: 0 Discharge Instructions Instructions: Abuse of Alcohol (DC) Referrals: Silvina Perdue MD [Primary Care Provider] - 07/16/20 10:30 am Activity:: Activity as Tolerated Equipment/Supplies:: No Equipment Needed Diet:: Low Sodium Discharge Orders Discharge Orders: Discharge Order (Routine); Ordered 07/11/20 Ordered By: Mio Navarro DS: Summary Time Spent with Patient providing and/or coordinating discharge services: Greater than 30 minutes Status at Discharge Functional status at discharge: independent ambulation Overall status at discharge: patient is progressing back to baseline Mental Status: mental status grossly normal Speech and Movement: speech and movement normal Mood: congruent mood Affect: normal affect Exam Const General: cooperative and no acute distress Orientation: alert and oriented x3 Eyes Sclera: sclerae normal Pupils: PERRL Resp Effort & Inspection: normal respiratory effort Auscultation: diminished lung sounds and rales (fine crackles in baes R>L) bilaterally Cardio Other: irreg irreg GI Palpation: soft and nontender Skin General skin exam: no rashes or lesions noted Extrem General: no calf tenderness and edema Laterality: bilateral (tr) Psych Appearance: grossly normal Mental Status: mental status grossly normal Speech and Movement: speech and movement normal Mood: congruent mood Affect: normal affect DS: Data Vitals/I&O Vitals and I&O: Vital Signs Temperature 36.7 C 07/11/20 08:14 Temperature Source Tympanic 07/11/20 08:14 Pulse 71 07/11/20 08:14 Pulse Rhythm Irregular 07/11/20 04:46 Pulse 101 H 07/09/20 16:01 Respiratory Rate 16 07/11/20 08:14 Respiratory Effort Non-Labored 07/11/20 04:46 Respiratory Depth Normal 07/11/20 04:46 Respiratory Pattern Normal 07/11/20 04:46 Blood Pressure 126/80 07/11/20 08:14 Blood Pressure Mean 89 07/09/20 16:01 Blood Pressure Position Sitting 07/09/20 12:21 Pulse Oximetry 97 07/11/20 08:14 Oxygen Delivery Method Room Air 07/11/20 08:14 Oxygen Flow Rate 0 07/11/20 08:14 Pain Level 0 07/11/20 08:14 Comment 07/11/20 03:39 Intake & Output 07/10/20 07/10/20 07/11/20 11:59 23:59 11:59 Intake Total 1410.667 / 2869.333 1458.666 / 2869.333 1928.000 / 1928.000 Output Total 1070 / 2320 1250 / 2320 750 / 750 Balance 340.667 / 549.333 208.666 / 980.961 4246.000 / 1178.000 Weight 57.697 kg Intake: IV 1170.667 / 2149.333 978.666 / 2149.333 1928.000 / 1928.000 Oral 240 / 720 480 / 720 Output: Urine 1070 / 2320 1250 / 2320 750 / 750 Other: Urine Color Pale Yellow Yellow Urine Appearance Clear Clear Clear Urine Odor Normal None Voiding Methods Bedside Commode Urinal Urinal Urinal Data Completed and Pending Labs on day of discharge: Labs from last 24 hours 07/11/20 06:13 Sodium 141 Potassium 3.5 Chloride 105 Carbon Dioxide 26.9 Anion Gap 9.1 BUN 22 H Creatinine 0.9 Estimated GFR/1.73 m2 >= 60.00 Glucose 98 Calcium 8.7 PFSH Medical History (Updated 07/10/20 @ 11:02 by Mio Navarro MD) Adenocarcinoma of esophagus Afib Alcohol abuse Atrial flutter CAD (coronary artery disease) Chest wall pain Chronic obstructive lung disease Coronary arteriosclerosis Diabetes mellitus Difficulty reading Diuresis Edema Epididymitis, right Essential hypertension GERD (gastroesophageal reflux disease) GI bleed Hx of esophageal malignancy Hydrocele, right Hyperlipidemia Hypertension Low back pain Pancreatitis Solitary pulmonary nodule Stomach cancer Tobacco abuse Tricuspid regurgitation Weight loss Surgical History cardiac cath Coronary Artery Bypass Gaft (CABG) EGD - IV Sedation Esophagectomy H/O colonoscopy (2007) H/O colonoscopy (04/14/18) dr geller, sigmoid diverticulosis, repeat 10 years History of esophagogastroduodenoscopy (EGD) (09/2017) History of hydrocelectomy History of right inguinal hernia repair repair times two sugrical flap of unhealing wound Family History Mother No problems noted. Father No problems noted. Social History Smoking/Tobacco Use Status: Current every day Tobacco Type: cigarettes Smoking packs per day: 1 Smoking cigarettes per day: 20.0 Years smoked: 50 Smoking pack- years: 50.00 Smoking risk assessment performed?: Yes Alcohol Intake: current Alcohol Intake frequency: 3 or more drinks per day Alcohol type: beer Drug use: Never Substance use type: does not use What type of physical activity do you participate in: none Do you feel safe at home: Yes Do you feel safe in your relationship?: Yes
[2020-07-11] MEDS: Magnesium Oxide 400 MG TAB PO (10:37)
[2020-07-11 11:33] VITALS: PULSE 87
--- NOTE | 2020-07-11 12:02 | CMDISCH_ITS ---
LACE Index Scoring Tool - Questions: Length of Stay (in days): 3 Acuity (Admit via E.D.?): Yes Comorbidities: Diabetes w/o Complication, Chronic Pulmonary Disease, Any Tumor E.D. Visits: 3 - Answers: Total Score: 14 Risk of Readmission: High Risk Care Management Discharge Reason for Hospitalization: Acute Mental Status Changes Discharge Plan: Nain will return home when ready per MD. He will follow with his PCP and plan of care as prescribed. He will transport via private vehicle with [facility]; coordinated by this commercial loan underwriter. Patient/Family Education Needs: Review discharge instructions, discuss Ask Me Three. Services Needed at Discharge: Transportation ([facility] private vehicle )
== END 2020-07-11 11:46 | disposition home or self-care (01) ==
LOC: ER 15:54 → MS 16:21
PROVIDERS: Admitting Provider Family Medicine; Emergency Provider Physician Assistant; PCP Family Medicine; Visit Provider Family Medicine
DX: R41.82 Altered mental status, unspecified (principal); J98.11 Atelectasis; F10.10 Alcohol abuse, uncomplicated; I50.32 Chronic diastolic (congestive) heart failure; I25.10 Atherosclerotic heart disease of native coronary artery without angina pectoris; I48.91 Unspecified atrial fibrillation; I27.20 Pulmonary hypertension, unspecified; I11.0 Hypertensive heart disease with heart failure; I07.1 Rheumatic tricuspid insufficiency; R53.1 Weakness; Z20.822 Contact with and (suspected) exposure to COVID-19; J44.9 Chronic obstructive pulmonary disease, unspecified; R11.10 Vomiting, unspecified; F17.210 Nicotine dependence, cigarettes, uncomplicated; R60.0 Localized edema; E87.6 Hypokalemia
CPT/HCPCS: 36415; 80048; 80053; 83690; 93005; 94640; 96360; 99222; 99232; 99239; 99285; U0003; 70450; 71045; 74177; 81003; 81015; 82140; 83735; 83880; 84443; 84484; 85025; 93010; 93971; 99217; 99219; 99225; G0378; J3480; J3490

== ENCOUNTER 2020-09-24 08:51 | Emergency (ER) | payer MEDICARE, MEDICAID, SELFPAY ==
[2020-09-24] VITALS (21 sets, daily range): BP systolic 93–122; BP diastolic 55–87; PULSE 57–79; RESP 10–16; TEMP 36.6; O2SAT 93–100
--- NOTE | 2020-09-24 09:06 | ED.GENADUL_ITS ---
Discharge Plan Disposition Patient Disposition: HOME Condition: Good Discharge Details Clinical Impression: Hematoma, Neck pain Primary Care Provider: Silvina Perdue ED Provider: Noemi Golria Home Meds and New Rx's Prescriptions: Continued sucralfate [Carafate] 100 mg/mL suspension 10 ml PO QID RF: 0 lidocaine 5 % cream 1 applic TP QID RF: 0 multivitamin capsule 1 cap PO DAILY RF: 0 Combivent Respimat 20-100 mcg/actuation mist 2 puff IH TID RF: 0 folic acid 1 MG tablet 1 mg PO DAILY RF: 0 bupropion HCl (smoking deter) 150 MG tablet extended release 12 hr 150 mg PO BID RF: 0 aspirin [Ecotrin Low Strength] 81 MG tablet,delayed release (DR/EC) 81 mg PO DAILY RF: 0 atorvastatin [Lipitor] 10 MG tablet 10 mg PO HS RF: 0 nitroglycerin [Nitrostat] 0.4 MG tablet, sublingual 0.4 mg Sublingual . DIRECTED PRN (Reason: Chest Pain) RF: 0 cholecalciferol (vitamin D3) 1,000 UNITS tablet 2,000 units PO DAILY RF: 0 gabapentin 300 mg capsule 300 mg PO TID RF: 0 Ensure Original Liquid See Rx Instructions .ROUTE .COMPLEX RF: 0 bumetanide 2 mg tablet 2 mg PO BID Qty: 20 RF: 0 hydrocodone-acetaminophen 10-325 mg tablet 1 tab PO TID RF: 0 spironolactone 25 mg tablet 25 mg PO DAILY RF: 0 pantoprazole 40 MG tablet,delayed release (DR/EC) 40 mg PO DAILY RF: 0 metoprolol tartrate 25 mg Tablet 12.5 mg PO BID RF: 0 Discharge Instructions Instructions: Hematoma (ED), Neck Pain (ED) Additional Instructions: X-ray of you neck shows arthritis. No acute fracture noted. Please continue with previously prescribed pain regimen. Discuss further with primary care. Your area of swelling was drained today. Concerned for small hematoma. Please leave current dressing on until evaluated by your primary care tomorrow. You have an appointment tomorrow morning at 9:45AM. Please encourage elevation of your leg. If you develop fevers/chills, increased pain or other new/worsening symptoms please seek care urgently once again. Referrals: Silvina Perdue MD [Primary Care Provider] - 09/25/20 9:45 am Discharge Data Discharge Date/Time-TO BE ENTERED AT DEPARTURE: 09/24/20 11:31 Medical Decision Making Patient barry momin 70 year old male presenting today with c/c of RLE sore. States that this began approximately 3 weeks ago. No known trauma. No known break int eh skin. Denies fevers/chills. Pain is constant. Has had abscesses historically and states that this feels similar, previously was in the axilla per patient report. He also endorses neck pain that is intermittent and chronic. Denies pain currently. No radiation of pain. No N/T. No weakness. No known trauma. PMH significant for COPD, ETOH abuse, pulmonary HTN, CHF, CAD, Afib, HTN. Patient is not anticoagulated secondary to GI bleed. On exam, patient appears nontoxic. He has 2cm lesion on his RLE that is swollen, fluctuant and tender. Focally erythematous. No surrounding erythema. No evidence of trauma, no break in the skin, no drainage. Will evaluate with US. US shows fluid collection. Hx, exam and US most consistent with abscess. Patient and I discussed risks/benefits and expected procedural steps of drainage. He voices understanding and would like to proceed. No surrounding erythema, focal over area of swelling. In regard to the patients neck pain, this sounds to be chronic. He reports no pain currently. None is elicited with ROM or palpation. No fevers/chills. He states he used Vicodin this AM which help with his pain. He denies recent fall. I am concerned that he may have suffered injury that he is unaware of given his ETOH hx. No evidence of infectious etiology at this time. Will obtain XR of cervical spine for further evaluation. Concerned for patient to be able to care for his wound well at home. Have arranged fro f/u with PCP tomorrow. Please see procedure note. Patient tolerated this well. Small clot and dark blood in the cavity. Wondering if this was small focal hematoma. Will hold off on antibioics. He has no evience of active bleeding. Is not anticoaguated. Cavity was packed. Pressure dressing applied. Patient will have f/u with PCP tomorow as already scheduled. Return precautions discussed. XR reviewed by radiologist: FINDINGS: There is no obvious acute fracture nor offset of the spinal laminar line. There is multilevel chronic degenerative disc disease. There is also an element of degenerative anterolisthesis of C3 upon C4 related to advanced degenerative facet joint arthropathy. There is advanced disc space narrowing at C4-5, as and C5-6 levels. There is relatively preserved disc height at C6-7 level. There are no cervical ribs. Calcification is noted in the right carotid artery indicating atherosclerotic involvement. Sternotomy wires noted. Discussed findings with the patient. We discussed care of wound. He has f/u with PCP tomorrow. He will cotninue with previously prescribed pain regimen. Return precautions discussed. All of his quesitons and concerns were addressed, he is in agreement with thisplan. HPI General Mode of arrival: ambulatory . Date/Time Provider Initiated Documentation: 09/24/20 09:06 . Limitations to Documentation: no limitations . Information obtained by: patient, RN notes reviewed and old records reviewed . History of Present Illness 70 year old M presents to the emergency department with the chief complaint of sore on RLE, described as moderate, with intensity rated at 7. Quality is described as aching, and is localized to the right and lower extremity. Patient reports no radiation. Patient started experiencing this week(s) (3) and it has been constant. No relieving factors improve symptom(s), No exacerbating factors reported . Patient notes no other symptoms.. Patient did receive the following treatments prior to arrival, none Related Data Home Medications Medication Instructions Recorded Confirmed bupropion HCl (smoking deter) 150 mg PO BID 08/04/12 07/09/20 folic acid 1 mg PO DAILY 08/04/12 07/09/20 aspirin [Ecotrin Low Strength] 81 mg PO DAILY 04/09/13 07/09/20 atorvastatin [Lipitor] 10 mg PO HS 01/25/15 07/09/20 cholecalciferol (vitamin D3) 2,000 units PO DAILY 04/12/16 07/09/20 nitroglycerin [Nitrostat] 0.4 mg SUBLINGUAL . DIRECTED PRN 04/12/16 07/09/20 pantoprazole 40 mg PO DAILY 01/15/17 07/09/20 lidocaine 5 % topical cream 1 applic TP QID 02/10/18 07/09/20 multivitamin 1 cap PO DAILY 02/10/18 07/09/20 sucralfate 100 mg/mL oral 10 ml PO QID 02/10/18 07/09/20 suspension metoprolol tartrate 12.5 mg PO BID 04/12/18 07/09/20 ipratropium 20 mcg-albuterol 100 2 puff IH TID 05/02/19 07/10/20 mcg/actuation mist for inhalation Ensure Original See Rx Instructions .ROUTE .COMPLEX 01/15/20 07/09/20 bumetanide 2 mg PO BID #20 tab 01/15/20 07/09/20 gabapentin 300 mg PO TID 01/15/20 07/09/20 hydrocodone-acetaminophen 1 tab PO TID 07/09/20 07/09/20 spironolactone 25 mg PO DAILY 07/10/20 07/10/20 Previous Rx's Medication Instructions Recorded bumetanide 2 mg PO BID #20 tab 01/15/20 Allergies Allergy/AdvReac Type Severity Reaction Status Date / Time No Known Allergies Allergy Verified 07/09/20 12:57 General Stated Complaint: Orthopedic ANAMIKA: 3 Review of Systems Constitutional Constitutional: Reports as per HPI, Denies chills, Denies fever(s), Denies headache(s) and Denies weakness ENT Ears, Nose, Mouth, and Throat: Denies headache(s) and Reports neck pain (also reports intermittent neck pain for the past few months) Cardiovascular Cardiovascular: Reports as per HPI Respiratory Respiratory: Reports as per HPI and Denies cough Musculoskeletal Musculoskeletal: Reports as per HPI, Reports neck pain (also reports intermittent neck pain for the past few months) and Denies tingling Integumentary/Breasts Skin/Breast: Reports as per HPI, Denies rash, Reports sores and Denies wounds Neurologic Neurologic: Reports as per HPI, Denies headache(s), Denies tingling, Denies paresthesias and Denies weakness [facility] Medical History (Updated 09/24/20 @ 10:42 by SONYA Herrera) Adenocarcinoma of esophagus Afib Alcohol abuse Atrial flutter CAD (coronary artery disease) Chest wall pain Chronic obstructive lung disease Coronary arteriosclerosis Diabetes mellitus Difficulty reading Diuresis Edema Epididymitis, right Essential hypertension GERD (gastroesophageal reflux disease) GI bleed Hx of esophageal malignancy Hydrocele, right Hyperlipidemia Hypertension Low back pain Pancreatitis Solitary pulmonary nodule Stomach cancer Tobacco abuse Tricuspid regurgitation Weight loss Surgical History cardiac cath Coronary Artery Bypass Gaft (CABG) EGD - IV Sedation Esophagectomy H/O colonoscopy (2007) H/O colonoscopy (04/14/18) dr geller, sigmoid diverticulosis, repeat 10 years History of esophagogastroduodenoscopy (EGD) (09/2017) History of hydrocelectomy History of right inguinal hernia repair repair times two sugrical flap of unhealing wound Family History Mother No problems noted. Father No problems noted. Social History Smoking/Tobacco Use Status: Current every day Tobacco Type: cigarettes Smoking packs per day: 1 Smoking cigarettes per day: 20.0 Years smoked: 50 Smoking pack- years: 50.00 Smoking risk assessment performed?: Yes Alcohol Intake: current Alcohol Intake frequency: 3 or more drinks per day Alcohol type: beer Drug use: Never Substance use type: does not use What type of physical activity do you participate in: none Do you feel safe at home: Yes Do you feel safe in your relationship?: Yes Exam Const General: cooperative, healthy appearing, comfortable, no acute distress, well developed and well groomed Nutritional Appearance: average body habitus and well nourished Orientation: alert and awake Neck Neck: normal visual inspection, full ROM, no lymphadenopathy, no meningeal signs, trachea midline and supple Resp Effort & Inspection: normal respiratory effort, able to speak in complete sentences and no respiratory distress Auscultation: clear to auscultation bilaterally Cardio Rate: regular rate Rhythm: regular rhythm Heart Sounds: S1 normal and S2 normal Skin Lesions: lesion noted (2cm circular area of swelling. Red. No warmth. No drainage/opening. Tender ) right lateral lower leg Neuro General: patient alert and patient awake Cognition: normal cognition Speech: speech normal Gait: normal gait Motor: muscle tone normal throughout, strength 5/5 throughout, no pronator drift, no movement abnormalities noted and no fasciculations Sensory Exam: no sensory deficits noted Extrem Ankle/foot/toe images: 1. Lesion as described above. No surrounding erythema, warmth or pain. Psych Appearance: grossly normal and well kempt Mental Status: mental status grossly normal Speech and Movement: speech and movement normal Course Vital Signs Vital signs: Vital Signs Temperature 36.6 C 09/24/20 08:59 Pulse 70 09/24/20 08:59 Respiratory Rate 14 09/24/20 08:59 Blood Pressure 93/55 L 09/24/20 08:59 Pulse Oximetry 97 09/24/20 08:59 Temperature 36.6 C 09/24/20 08:59 Temperature Source Skin 09/24/20 08:59 Pulse 70 09/24/20 08:59 Respiratory Rate 14 09/24/20 08:59 Blood Pressure 93/55 L 09/24/20 08:59 Blood Pressure Position Sitting 09/24/20 08:59 Pulse Oximetry 97 09/24/20 08:59 Oxygen Delivery Method Room Air 09/24/20 08:59 Oxygen Flow Rate 0 09/24/20 08:59 Pain Level 7 09/24/20 08:59
--- NOTE | 2020-09-24 09:30 | DI.RAD_ITS ---
EXAM: XR CERVICAL SP MANDUJANO TRAUMA 2-3V CLINICAL HISTORY: chronic pain. TECHNIQUE: 2D digital imaging was performed. COMPARISON: No exams were available for comparison FINDINGS: There is no obvious acute fracture nor offset of the spinal laminar line. There is multilevel chroni c degenerative disc disease. There is also an element of degenerative anterolisthesis of C3 upon C4 related to advanced degenerative facet joint arthropathy. There is advanced disc space narrowing at C4-5, as and C5-6 levels. There is relatively preserved disc height at C6-7 level. There are no cer vical ribs. Calcification is noted in the right carotid artery indicating atherosclerotic involvement. Sternotom y wires noted. IMPRESSION: DATA REPOSITORY: RADIATION DOSE DELIVERED:
== END 2020-09-24 11:31 | disposition home or self-care (01) ==
PROVIDERS: Emergency Provider Physician Assistant; PCP Family Medicine
DX: M79.81 Nontraumatic hematoma of soft tissue (principal); M54.2 Cervicalgia
CPT/HCPCS: 99283; 72040

== ENCOUNTER 2020-10-08 14:46 | Outpatient (REF) | payer MEDICARE, MEDICAID, SELFPAY ==
[2020-10-08 19:12] LABS: HCT 41.7 % (40.0-50.0); HGB 13.2 g/dL (13.5-17.5); MCH 29.5 pg (27.0-33.0); MCHC 31.7 % (32.0-36.0); MCV 93.3 fL (80-95); MPV 10.3 fL (8.0-11.0); Platelet Count 257 10^3/uL (130-400); RBC 4.47 10^6/uL (4.36-5.78); RDW 16.7 % (11.8-14.1); RDW-SD 57.1 fL; WBC 7.47 10^3/uL (4.4-10.8)
[2020-10-08 19:28] LABS: ALT 17 U/L (16-63); AST 18 U/L (15-37); Albumin 3.5 g/dL (3.4-5.0); Alkaline Phosphatase 132 U/L (46-116); Anion Gap 8.9 mmol/L (3-11); BUN 35 mg/dL (7-18); Bilirubin, Total 0.7 mg/dL (0.2-1.0); CO2 29.1 mmol/L (21.0-32.0); CREATININE 1.4 mg/dL (0.70-1.30); Calcium 9.4 mg/dL (8.5-10.1); Chloride 102 mmol/L (98-107); Glucose 93 mg/dL (74-106); Potassium 4.1 mmol/L (3.5-5.1); Sodium 140 mmol/L (136-145); Total Protein 7.8 g/dL (6.4-8.2)
[2020-10-08 19:56] LABS: Calculated LDL 45 mg/dL (<100); Cholesterol 116 mg/dL (<200); Ferritin 32 ng/mL (26-388); HDL Cholesterol 59 mg/dL (40-60); Triglyceride 61 mg/dL (<150)
== END 2020-10-08 14:47 | disposition home or self-care (01) ==
LOC: NCHCN 14:46
PROVIDERS: PCP Family Medicine; Visit Provider Family Medicine
DX: D50.9 Iron deficiency anemia, unspecified (principal); R73.03 Prediabetes; I10 Essential (primary) hypertension; R60.0 Localized edema; F10.10 Alcohol abuse, uncomplicated; E40 Kwashiorkor
CPT/HCPCS: 80053; 80061; 85027; 82728; 83036

== ENCOUNTER 2020-12-31 12:43 | Outpatient (REF) | payer MEDICARE, MEDICAID, SELFPAY ==
[2020-12-31 21:08] LABS: Anion Gap 11.7 mmol/L (3-11); BUN 30 mg/dL (7-18); CO2 24.3 mmol/L (21.0-32.0); CREATININE 1.3 mg/dL (0.70-1.30); Chloride 100 mmol/L (98-107); Estimated GFR 54.57 (mL/min/1.73m2); Glucose 184 mg/dL (74-106); Potassium 4.3 mmol/L (3.5-5.1); Sodium 136 mmol/L (136-145)
== END 2020-12-31 12:44 | disposition home or self-care (01) ==
LOC: NCHCN 12:43
PROVIDERS: PCP Family Medicine; Visit Provider Family Medicine
DX: R60.9 Edema, unspecified (principal); R63.4 Abnormal weight loss
CPT/HCPCS: 80048

== ENCOUNTER 2021-01-21 10:41 | Emergency (ER) | payer MEDICARE, MEDICAID, SELFPAY ==
[2021-01-21 10:44] VITALS: BP 117/69; PULSE 98; RESP 14; TEMP 36.8; O2SAT 100
--- NOTE | 2021-01-21 11:06 | ED.GENADUL_ITS ---
Discharge Plan Disposition Patient Disposition: HOME Condition: Stable Discharge Details Clinical Impression: Pain, dental Primary Care Provider: Silvina Perdue ED Provider: Shaun Watts Home Meds and New Rx's Prescriptions: New amoxicillin 500 mg tablet 500 mg PO BID Qty: 20 RF: 0 Continued sucralfate [Carafate] 100 mg/mL suspension 10 ml PO QID RF: 0 lidocaine 5 % cream 1 applic TP QID RF: 0 multivitamin capsule 1 cap PO DAILY RF: 0 Combivent Respimat 20-100 mcg/actuation mist 2 puff IH TID RF: 0 folic acid 1 MG tablet 1 mg PO DAILY RF: 0 bupropion HCl (smoking deter) 150 MG tablet extended release 12 hr 150 mg PO BID RF: 0 aspirin [Ecotrin Low Strength] 81 MG tablet,delayed release (DR/EC) 81 mg PO DAILY RF: 0 atorvastatin [Lipitor] 10 MG tablet 10 mg PO HS RF: 0 nitroglycerin [Nitrostat] 0.4 MG tablet, sublingual 0.4 mg Sublingual . DIRECTED PRN (Reason: Chest Pain) RF: 0 cholecalciferol (vitamin D3) 1,000 UNITS tablet 2,000 units PO DAILY RF: 0 gabapentin 300 mg capsule 300 mg PO TID RF: 0 Ensure Original Liquid See Rx Instructions .ROUTE .COMPLEX RF: 0 bumetanide 2 mg tablet 2 mg PO BID Qty: 20 RF: 0 hydrocodone-acetaminophen 10-325 mg tablet 1 tab PO TID RF: 0 spironolactone 25 mg tablet 25 mg PO DAILY RF: 0 pantoprazole 40 MG tablet,delayed release (DR/EC) 40 mg PO DAILY RF: 0 metoprolol tartrate 25 mg Tablet 12.5 mg PO BID RF: 0 Discharge Instructions Instructions: Toothache (ED) Additional Instructions: follow up with a dentist as soon as possible if you feel more ill, have severe worsening pain or inability to swallow liquids return to the emergency department Medical Decision Making 70 yo male comes in with right lower jaw/dental pain for 3 days. Denies fevers, dyspnea or difficulty swallowing. He has no swelling on exam anwhere of the neck or head. He has one eroded tooth on right lower mid jaw with tenderness to percussion and no visible abscess. No submandibular swelling, midline uvula, no restricted neck movements and no pain over the hyoid so doubt ludwigs, epiglotitis, retropharygneal abscess or peritonsillar abscess. Suspect dental infection will start him on amoxicillin and advised to f/u with dentist with return precautions Differential Diagnosis Differential Diagnosis: caries, pulpitis, abscess HPI General Mode of arrival: ambulatory . Date/Time Provider Initiated Documentation: 01/21/21 10:50 . Limitations to Documentation: no limitations . Information obtained by: patient . History of Present Illness 70 year old M presents to the emergency department with the chief complaint of right lower jaw pain, described as moderate, Quality is described as aching, Patient started experiencing this day(s) (3) and it has been constant. No relieving factors improve symptom(s), No exacerbating factors reported . Patient notes no other symptoms.. Related Data Home Medications Medication Instructions Recorded Confirmed bupropion HCl (smoking deter) 150 mg PO BID 08/04/12 07/09/20 folic acid 1 mg PO DAILY 08/04/12 07/09/20 aspirin [Ecotrin Low Strength] 81 mg PO DAILY 04/09/13 07/09/20 atorvastatin [Lipitor] 10 mg PO HS 01/25/15 07/09/20 cholecalciferol (vitamin D3) 2,000 units PO DAILY 04/12/16 07/09/20 nitroglycerin [Nitrostat] 0.4 mg SUBLINGUAL . DIRECTED PRN 04/12/16 07/09/20 pantoprazole 40 mg PO DAILY 01/15/17 07/09/20 lidocaine 5 % topical cream 1 applic TP QID 02/10/18 07/09/20 multivitamin 1 cap PO DAILY 02/10/18 07/09/20 sucralfate 100 mg/mL oral 10 ml PO QID 02/10/18 07/09/20 suspension metoprolol tartrate 12.5 mg PO BID 04/12/18 07/09/20 ipratropium 20 mcg-albuterol 100 2 puff IH TID 05/02/19 07/10/20 mcg/actuation mist for inhalation Ensure Original See Rx Instructions .ROUTE .COMPLEX 01/15/20 07/09/20 bumetanide 2 mg PO BID #20 tab 01/15/20 07/09/20 gabapentin 300 mg PO TID 01/15/20 07/09/20 hydrocodone-acetaminophen 1 tab PO TID 07/09/20 07/09/20 spironolactone 25 mg PO DAILY 07/10/20 07/10/20 amoxicillin 500 mg PO BID #20 tab 01/21/21 Previous Rx's Medication Instructions Recorded bumetanide 2 mg PO BID #20 tab 01/15/20 amoxicillin 500 mg PO BID #20 tab 01/21/21 Allergies Allergy/AdvReac Type Severity Reaction Status Date / Time No Known Allergies Allergy Verified 01/21/21 10:47 General Stated Complaint: DentalOral ANAMIKA: 3 Review of Systems All systems reviewed & are unremarkable except as noted in HPI and below Constitutional Constitutional: Denies chills, Denies fever(s) and Denies weakness Cardiovascular Cardiovascular: Denies chest pain and Denies dyspnea Respiratory Respiratory: Denies cough and Denies dyspnea Gastrointestinal Gastrointestinal: Denies abdominal pain, Denies nausea and Denies vomiting Musculoskeletal Musculoskeletal: Denies joint swelling Neurologic Neurologic: Denies weakness PFS Medical History (Updated 01/21/21 @ 11:06 by Shaun Watts MD) Adenocarcinoma of esophagus Afib Alcohol abuse Atrial flutter CAD (coronary artery disease) Chest wall pain Chronic obstructive lung disease Coronary arteriosclerosis Diabetes mellitus Difficulty reading Diuresis Edema Epididymitis, right Essential hypertension GERD (gastroesophageal reflux disease) GI bleed Hx of esophageal malignancy Hydrocele, right Hyperlipidemia Hypertension Low back pain Pancreatitis Solitary pulmonary nodule Stomach cancer Tobacco abuse Tricuspid regurgitation Weight loss Surgical History cardiac cath Coronary Artery Bypass Gaft (CABG) EGD - IV Sedation Esophagectomy H/O colonoscopy (2007) H/O colonoscopy (04/14/18) dr gleler, sigmoid diverticulosis, repeat 10 years History of esophagogastroduodenoscopy (EGD) (09/2017) History of hydrocelectomy History of right inguinal hernia repair repair times two sugrical flap of unhealing wound Family History Mother No problems noted. Father No problems noted. Social History Smoking/Tobacco Use Status: Current every day Tobacco Type: cigarettes Smoking packs per day: 1 Smoking cigarettes per day: 20.0 Years smoked: 50 Smoking pack- years: 50.00 Smoking risk assessment performed?: Yes Alcohol Intake: current Alcohol Intake frequency: 0-2 drinks per day Alcohol type: beer Drug use: Never Substance use type: does not use What type of physical activity do you participate in: none Do you feel safe at home: Yes Do you feel safe in your relationship?: Yes Exam Const General: no acute distress Orientation: alert HENMT Head: normal to inspection Ears: external ears normal General nose exam: external nose normal Mouth: moist mucous membranes Eyes General: appearance normal, both eyes and all related structures Neck Neck: normal visual inspection Resp Effort & Inspection: normal respiratory effort and able to speak in complete sentences Cardio Rate: regular rate Skin General skin exam: no rashes or lesions noted Neuro General: patient alert and patient oriented x3 Extrem General: normal to inspection Psych Mental Status: mental status grossly normal Course Vital Signs Vital signs: Vital Signs Temperature 36.8 C 01/21/21 10:44 Pulse 98 H 01/21/21 10:44 Respiratory Rate 14 01/21/21 10:44 Blood Pressure 117/69 01/21/21 10:44 Pulse Oximetry 100 01/21/21 10:44 Temperature 36.8 C 01/21/21 10:44 Temperature Source Skin 01/21/21 10:44 Pulse 98 H 01/21/21 10:44 Respiratory Rate 14 01/21/21 10:44 Respiratory Effort Non-Labored 01/21/21 10:48 Blood Pressure 117/69 01/21/21 10:44 Blood Pressure Position Sitting 01/21/21 10:44 Pulse Oximetry 100 01/21/21 10:44 Oxygen Delivery Method Room Air 01/21/21 10:44 Oxygen Flow Rate 0 01/21/21 10:44 Pain Level 10 01/21/21 10:48
== END 2021-01-21 11:12 | disposition home or self-care (01) ==
PROVIDERS: Emergency Provider Emergency Medicine; PCP Family Medicine
DX: R68.84 Jaw pain (principal); K08.89 Other specified disorders of teeth and supporting structures
CPT/HCPCS: 99283

== ENCOUNTER 2021-03-05 09:44 | Emergency (ER) | payer MEDICARE, MEDICAID, SELFPAY ==
[2021-03-05 09:48] VITALS: BP 113/80; PULSE 91; RESP 18; TEMP 36.2; O2SAT 98
--- NOTE | 2021-03-05 10:05 | W.ED.GENAD ---
Discharge Plan Disposition Patient Disposition: HOME Condition: Stable Discharge Details Clinical Impression: Acute lymphadenitis of neck Primary Care Provider: Silvina Perdue ED Provider: Shaun Watts Home Meds and New Rx's Prescriptions: New amoxicillin-pot clavulanate [Augmentin] 875-125 mg tablet 1 tab PO BID Qty: 14 RF: 0 Continued sucralfate [Carafate] 100 mg/mL suspension 10 ml PO QID RF: 0 lidocaine 5 % cream 1 applic TP QID RF: 0 multivitamin capsule 1 cap PO DAILY RF: 0 Combivent Respimat 20-100 mcg/actuation mist 2 puff IH TID RF: 0 folic acid 1 MG tablet 1 mg PO DAILY RF: 0 bupropion HCl (smoking deter) 150 MG tablet extended release 12 hr 150 mg PO BID RF: 0 aspirin [Ecotrin Low Strength] 81 MG tablet,delayed release (DR/EC) 81 mg PO DAILY RF: 0 atorvastatin [Lipitor] 10 MG tablet 10 mg PO HS RF: 0 nitroglycerin [Nitrostat] 0.4 MG tablet, sublingual 0.4 mg Sublingual . DIRECTED PRN (Reason: Chest Pain) RF: 0 cholecalciferol (vitamin D3) 1,000 UNITS tablet 2,000 units PO DAILY RF: 0 gabapentin 300 mg capsule 300 mg PO TID RF: 0 Ensure Original Liquid See Rx Instructions .ROUTE .COMPLEX RF: 0 bumetanide 2 mg tablet 2 mg PO BID Qty: 20 RF: 0 hydrocodone-acetaminophen 10-325 mg tablet 1 tab PO TID RF: 0 spironolactone 25 mg tablet 25 mg PO DAILY RF: 0 pantoprazole 40 MG tablet,delayed release (DR/EC) 40 mg PO DAILY RF: 0 metoprolol tartrate 25 mg Tablet 12.5 mg PO BID RF: 0 Discontinued amoxicillin 500 mg tablet 500 mg PO BID Qty: 20 RF: 0 Discharge Instructions Additional Instructions: you have a swollen lymph node based on your exam and ultrasound findings follow up with your primary care provider next week if symptoms continue if you feel more ill, have fevers, difficulty breathing or swallowing return to the emergency department Medical Decision Making 70 yo male comes in with several days of swollen area on right upper neck under the jaw. Denies fevers, mouth or throat pain, no difficulty breathing or swallowing. He has a 2cm hard and tender lump under the right jaw. No fluctuance, no warmth, is mildly erythematous. Normal oropharynx, midline uvula, speaking and swallowing normally on exam. On bedside u/s there is no fluid collection and appears to be a solid structure, suspect an lymphadenitis based on exam and u/s findings. Will tx with po augmentin. Discussed with pt and he states he has a f/u appt with his pcp next week already scheduled. ADvised if he worsens in any way to return to the ED Differential Diagnosis Differential Diagnosis: lymphadenitis, cellulitis HPI General Mode of arrival: ambulatory. Date/Time Provider Initiated Documentation: 03/05/21 09:45. Limitations to Documentation: no limitations. Information obtained by: patient. History of Present Illness 70 year old M presents to the emergency department with the chief complaint of swelling under jaw, described as mild, Quality is described as aching, and is localized to the neck. Patient reports no radiation. Patient started experiencing this day(s) (3) and it has been constant. No relieving factors improve symptom(s), No exacerbating factors reported . Patient notes no other symptoms.. Patient did receive the following treatments prior to arrival, none Related Data Home Medications Medication Instructions Recorded Confirmed bupropion HCl (smoking deter) 150 mg PO BID 08/04/12 07/09/20 folic acid 1 mg PO DAILY 08/04/12 07/09/20 aspirin [Ecotrin Low Strength] 81 mg PO DAILY 04/09/13 07/09/20 atorvastatin [Lipitor] 10 mg PO HS 01/25/15 07/09/20 cholecalciferol (vitamin D3) 2,000 units PO DAILY 04/12/16 07/09/20 nitroglycerin [Nitrostat] 0.4 mg SUBLINGUAL . DIRECTED PRN 04/12/16 07/09/20 pantoprazole 40 mg PO DAILY 01/15/17 07/09/20 lidocaine 5 % topical cream 1 applic TP QID 02/10/18 07/09/20 multivitamin 1 cap PO DAILY 02/10/18 07/09/20 sucralfate 100 mg/mL oral 10 ml PO QID 02/10/18 07/09/20 suspension metoprolol tartrate 12.5 mg PO BID 04/12/18 07/09/20 ipratropium 20 mcg-albuterol 100 2 puff IH TID 05/02/19 07/10/20 mcg/actuation mist for inhalation Ensure Original See Rx Instructions .ROUTE .COMPLEX 01/15/20 07/09/20 bumetanide 2 mg PO BID #20 tab 01/15/20 07/09/20 gabapentin 300 mg PO TID 01/15/20 07/09/20 hydrocodone-acetaminophen 1 tab PO TID 07/09/20 07/09/20 spironolactone 25 mg PO DAILY 07/10/20 07/10/20 amoxicillin-pot clavulanate 1 tab PO BID #14 tab 03/05/21 [Augmentin] Previous Rx's Medication Instructions Recorded bumetanide 2 mg PO BID #20 tab 01/15/20 amoxicillin-pot clavulanate 1 tab PO BID #14 tab 03/05/21 [Augmentin] Allergies Allergy/AdvReac Type Severity Reaction Status Date / Time No Known Allergies Allergy Verified 03/05/21 09:52 General Stated Complaint: RashLesion ANAMIKA: 4 Review of Systems All systems reviewed & are unremarkable except as noted in HPI and below Constitutional Constitutional: Denies chills, Denies fever(s) and Denies weakness Cardiovascular Cardiovascular: Denies chest pain and Denies dyspnea Respiratory Respiratory: Denies cough and Denies dyspnea Gastrointestinal Gastrointestinal: Denies abdominal pain, Denies nausea and Denies vomiting Musculoskeletal Musculoskeletal: Denies joint swelling Neurologic Neurologic: Denies weakness Psychiatric Psychiatric: Denies depression [facility] Medical History (Updated 03/05/21 @ 10:10 by Shaun Watts MD) Adenocarcinoma of esophagus Afib Alcohol abuse Atrial flutter CAD (coronary artery disease) Chest wall pain Chronic obstructive lung disease Coronary arteriosclerosis Diabetes mellitus Difficulty reading Diuresis Edema Epididymitis, right Essential hypertension GERD (gastroesophageal reflux disease) GI bleed Hx of esophageal malignancy Hydrocele, right Hyperlipidemia Hypertension Low back pain Pancreatitis Solitary pulmonary nodule Stomach cancer Tobacco abuse Tricuspid regurgitation Weight loss Surgical History cardiac cath Coronary Artery Bypass Gaft (CABG) EGD - IV Sedation Esophagectomy H/O colonoscopy (2007) H/O colonoscopy (04/14/18) dr geller, sigmoid diverticulosis, repeat 10 years History of esophagogastroduodenoscopy (EGD) (09/2017) History of hydrocelectomy History of right inguinal hernia repair repair times two sugrical flap of unhealing wound Family History Mother No problems noted. Father No problems noted. Social History Smoking/Tobacco Use Status: Current every day Tobacco Type: cigarettes Smoking packs per day: 1 Smoking cigarettes per day: 20.0 Years smoked: 50 Smoking pack-years: 50.00 Smoking risk assessment performed?: Yes Alcohol Intake: current Alcohol Intake frequency: 0-2 drinks per day Alcohol type: beer Drug use: Never Substance use type: does not use What type of physical activity do you participate in: none Do you feel safe at home: Yes Do you feel safe in your relationship?: Yes Exam Const General: no acute distress Orientation: alert HENMT Head: normal to inspection Ears: external ears normal General nose exam: external nose normal Mouth: moist mucous membranes Eyes General: appearance normal, both eyes and all related structures Neck Neck: full ROM, no meningeal signs and trachea midline Resp Effort & Inspection: normal respiratory effort and able to speak in complete sentences Cardio Rate: regular rate Skin General skin exam: turgor normal Neuro General: patient alert and patient oriented x3 Extrem General: normal to inspection Psych Mental Status: mental status grossly normal Course Vital Signs Vital signs: Vital Signs Temperature 36.2 C L 03/05/21 09:48 Pulse 91 H 03/05/21 09:48 Respiratory Rate 18 03/05/21 09:48 Blood Pressure 113/80 03/05/21 09:48 Pulse Oximetry 98 03/05/21 09:48 Temperature 36.2 C L 03/05/21 09:48 Temperature Source Temporal Artery Scan 03/05/21 09:48 Pulse 91 H 03/05/21 09:48 Respiratory Rate 18 03/05/21 09:48 Respiratory Effort Non-Labored 03/05/21 09:53 Blood Pressure 113/80 03/05/21 09:48 Blood Pressure Position Sitting 03/05/21 09:48 Pulse Oximetry 98 03/05/21 09:48 Oxygen Delivery Method Room Air 03/05/21 09:48 Oxygen Flow Rate 0 03/05/21 09:48 Pain Level 2 03/05/21 09:48 PAWSS Have you Been Recently Intoxicated or Drunk Within the Last 30 days?: No Have you Ever Experienced Previous Episodes of Alcohol Withdrawal?: No Have you ever Experienced Withdrawal Seizures?: No Have you ever Experienced Delirium Tremens(DT)s?: No Have you ever undergone Alcohol Rehabilitation Treatment (i.e, inpt ot outpatient treatment programs)?: No Have you ever Experienced Blackouts?: No Have you ever Combined Alcohol with other Downers within the last 90 days?: No Have you ever Combined Alcohol with any other Substance of Abuse during the last 90 days?: No Positive Blood Alcohol level on Presentation? [PCS.BAL]: No Evidence of Increased Autonomic Activity (i.e. HR>120, tremor, sweating, agitation, nausea)?: No Result: 0
== END 2021-03-05 10:16 | disposition home or self-care (01) ==
PROVIDERS: Emergency Provider Emergency Medicine; PCP Family Medicine
DX: L04.0 Acute lymphadenitis of face, head and neck (principal)
CPT/HCPCS: 99283

== ENCOUNTER 2021-03-20 13:31 | Emergency (ER) | payer MEDICARE, MEDICAID, SELFPAY ==
[2021-03-20] VITALS (14 sets, daily range): BP systolic 136–157; BP diastolic 70–117; PULSE 84–117; RESP 12–21; TEMP 36.4–37.3; O2SAT 96–100
--- NOTE | 2021-03-20 14:00 | RT.EKG_ITS ---
APPROVED REPORT Exam: Resting ECG Reason for Exam: tachy Patient Location: E HR:105 bpm ECG Measurements Heart Rate 105 AXIS WI [id number] P [id number] QRSd 74 QRS 93 QT 345 T [id number] QTc 457 Conclusion Atrial fibrillation...V-rate 80-125, irreg A-activity Ventricular premature complex...V complex w/ short R-R interval Right axis deviation...QRS axis ( 91,269) Consider left ventricular hypertrophy...(R aVL+S V3) >2.80mV Nonspecific T abnormalities, lateral leads...T <-0.10mV, I aVL V5 V6 bihasic t waves V2 new
[2021-03-20 14:51] LABS: Source Nasal/Nares
[2021-03-20 14:52] LABS: Abs Immature Grans 0.03 10^3/uL (0.0-0.06); Absolute Basophil Count 0.03 10^3/uL (0.0-0.2); Absolute Eosinophil Count 0.06 10^3/uL (0.0-0.7); Absolute Lymphocyte Count 1.08 10^3/uL (1.2-3.4); Absolute Monocyte Count 0.66 10^3/uL (0.1-0.8); Absolute Neutrophil Count 4.43 10^3/uL (1.2-6.7); Basophils % 0.5; HCT 47.1 % (40.0-50.0); HGB 15.1 g/dL (13.5-17.5); Immature Grans % 0.5; Lactate 1.5 mmol/L (0.6-1.4); Lymphocytes % 17.2; MCH 31.2 pg (27.0-33.0); MCHC 32.1 % (32.0-36.0); MCV 97.3 fL (80-95); MPV 9.2 fL (8.0-11.0); Monocytes % 10.5; Neutrophils % 70.3; Nucleated RBC 0 %; Platelet Count 244 10^3/uL (130-400); RBC 4.84 10^6/uL (4.36-5.78); RDW 14.7 % (11.8-14.1); RDW-SD 53.1 fL; WBC 6.29 10^3/uL (4.4-10.8)
[2021-03-20 15:29] LABS: ALT 19 U/L (16-63); AST 27 U/L (15-37); Albumin 3.6 g/dL (3.4-5.0); Alkaline Phosphatase 169 U/L (46-116); Anion Gap 9.6 mmol/L (3-11); BUN 35 mg/dL (7-18); CO2 27.4 mmol/L (21.0-32.0); CREATININE 1.1 mg/dL (0.70-1.30); Calcium 9.5 mg/dL (8.5-10.1); Chloride 100 mmol/L (98-107); Glucose 95 mg/dL (74-106); Lipase 55 U/L (73-393); Potassium 4.1 mmol/L (3.5-5.1); Sodium 137 mmol/L (136-145); TSH 1.66 uIU/mL (0.36-3.74); Total Protein 8.1 g/dL (6.4-8.2)
[2021-03-20 15:30] LABS: Troponin I < 0.05 ng/mL (<0.06)
--- NOTE | 2021-03-20 15:40 | DI.CT_ITS ---
Exam(s) CT CHEST PE ABD PELVIS W EXAM: CT CHEST PE ABD PELVIS W CLINICAL HISTORY: shortness of breath. TECHNIQUE: Imaging Protocol: Axial CT angiography was performed with multi-slice acquisition and mu lti-planar and/or 3D reconstructions. CONTRAST MATERIAL: Intravenous: Omnipaque 350 Contrast volume:100 mL COMPARISON: CT CT CHEST PE CTA from 01/20/[address] CHEST PE CTA from 01/20/[address] ABDOMEN PELVIS W from 07/09/[address] ABDOMEN PELVIS W from 07/09/2020 FINDINGS: CHEST: Pulmonary Arteries: No evidence of filling defect to suggest pulmonary emboli. Tracheobronchial tree: Patent where visualized. Mediastinum and Mikki: No dominant adenopathy or fluid collection. Large hiatal hernia. Pulmonary parenchyma: No consolidation or dominant measurable mass. Marked centrilobular emphysema. Pulmonary scarring. Pleura: No effusion or pneumothorax. Heart: Cardiomegaly. Coronary artery calcification. No pericardial effusion. Aorta: Thoracic aorta non-dilated. Atherosclerosis. Bones: Within normal limits for the patient's age.Status post sternotomy. There are acute nondisplac ed fractures involving the posterior aspects of the right 9th and 10th ribs. There are multiple bila teral old healed and nonunited rib fractures. Soft tissues: Unremarkable. ABDOMEN: Liver: Normal density. No measurable mass. Portal, Superior Mesenteric, and Splenic Veins: Unremarkable. Gallbladder and Biliary Tract: No radiodense calculus or dilation. Pancreas: There again seen multiple calcifications involving the head of the pancreas. There is atro phy of the body and tail of the pancreas. Spleen: There is again seen calcification within the capsule of the spleen. Adrenals: No masses seen. Kidneys: Normal size, contour and axis. No radiodense stones or obstructive uropathy. No masses seen. Abdominal Aorta: Abdominal portion non-dilated. Atherosclerosis. Bowel: No evidence of bowel obstruction. There is some thickening of the wall of the stomach which m ay be due to underdistention. There is thickening of the wall of portions of the descending and sigm oid colon. No pericolonic inflammatory changes are seen. No evidence of appendicitis. There is a l arge amount of stool throughout the colon. This may represent constipation. Peritoneal Cavity: No ascites, collection or mesenteric inflammatory response. No free air. Lymph Nodes: Within normal limits. Bones: Within normal limits for the patient's age. Soft Tissues: There is again seen a skin defect overlying the right lower abdominal wall. No abscess is identified. The anterior abdominal wall appears intact. Surgical clips are seen in the region. PELVIS: Bladder: There is diffuse irregular thickening of the wall of the urinary bladder. Reproductive Organs: Enlarged prostate gland. Lymph Nodes: Within normal limits. Bones: Within normal limits. IMPRESSION: 1. No evidence of pulmonary embolism or thoracic aneurysm. 2. No acute pulmonary process. 3. Acute nondisplaced fractures involving the posterior aspects of the right 9th and 10th ribs. 4. Diffuse irregular thickening of the wall of the urinary bladder. While this may represent cystiti s, neoplasm should also be considered. Follow-up workup is recommended. 5. Constipation. 6. Thickening of the wall of the descending and sigmoid colon. No definite pericolonic inflammatory changes are seen. Please correlate for evidence of colitis. 7. Stable calcifications in the pancreatic head suggesting chronic pancreatitis. Incidental Findings RADIATION DOSE DELIVERED: 1,086.58mGy.cm Total DLP DATA REPOSITORY: All CT scans at this facility are submitted to the National Radiology Data Registry (NRDR) Dose Index Registry (DIR) with the [employer] (A[employer]). RADIATION OPTIMIZATION: All CT scans at this facility use at least one of these dose optimization te chniques: automated exposure control; mA and/or kV adjustment per patient size (includes targeted exa ms where dose is matched to clinical indication); or iterative reconstruction.
--- NOTE | 2021-03-20 16:02 | ED.GENADUL_ITS ---
Discharge Plan Disposition Patient Disposition: HOME Condition: Stable Discharge Details Clinical Impression: Constipation, Bladder wall thickening, Colon wall thickening Primary Care Provider: Silvina Perdue ED Provider: Noemi Gloria Home Meds and New Rx's Prescriptions: Continued sucralfate [Carafate] 100 mg/mL suspension 10 ml PO QID RF: 0 lidocaine 5 % cream 1 applic TP QID RF: 0 multivitamin capsule 1 cap PO DAILY RF: 0 Combivent Respimat 20-100 mcg/actuation mist 2 puff IH TID RF: 0 folic acid 1 MG tablet 1 mg PO DAILY RF: 0 bupropion HCl (smoking deter) 150 MG tablet extended release 12 hr 150 mg PO BID RF: 0 aspirin [Ecotrin Low Strength] 81 MG tablet,delayed release (DR/EC) 81 mg PO DAILY RF: 0 atorvastatin [Lipitor] 10 MG tablet 10 mg PO HS RF: 0 nitroglycerin [Nitrostat] 0.4 MG tablet, sublingual 0.4 mg Sublingual . DIRECTED PRN (Reason: Chest Pain) RF: 0 cholecalciferol (vitamin D3) 1,000 UNITS tablet 2,000 units PO DAILY RF: 0 gabapentin 300 mg capsule 300 mg PO TID RF: 0 Ensure Original Liquid See Rx Instructions .ROUTE .COMPLEX RF: 0 bumetanide 2 mg tablet 2 mg PO BID Qty: 20 RF: 0 hydrocodone-acetaminophen 10-325 mg tablet 1 tab PO TID RF: 0 spironolactone 25 mg tablet 25 mg PO DAILY RF: 0 pantoprazole 40 MG tablet,delayed release (DR/EC) 40 mg PO DAILY RF: 0 metoprolol tartrate 25 mg Tablet 12.5 mg PO BID RF: 0 amoxicillin-pot clavulanate [Augmentin] 875-125 mg tablet 1 tab PO BID Qty: 14 RF: 0 tamsulosin 0.4 mg capsule 0.4 mg PO QHS RF: 0 ferrous sulfate [FeroSul] 325 mg (65 mg iron) tablet 325 mg PO DAILY RF: 0 tiotropium bromide 18 mcg Capsule, W/Inhalation Device 18 mcg INHALATION DAILY RF: 0 Discharge Instructions Instructions: Constipation (ED) Additional Instructions: Your imaging and history are most consistent with constipation. Please encourage hydration. Please begin a stool softener such as MiraLAX. Please take as directed on the bottle. Please follow-up with primary care next week for reevaluation. If you develop fever/chills, abdominal pain, inability stay hydrated or other new/worsening symptoms please seek care urgently once again. Referrals: Silvina Perdue MD [Primary Care Provider] - Discharge Data Discharge Date/Time-TO BE ENTERED AT DEPARTURE: 03/20/21 18:35 Medical Decision Making <SONYA Levy - Last Filed: 03/21/21 17:31> Patient is a poor historian, secondary to his status, I did order CTA PE and CT abdomen and pelvis to further Patient has many differentials, he is alert and oriented on my exam, he is ambulatory with steady although slow gait I also obtain history from Lyudmila, his roommate without any additional information to add aside from patient being on an antibiotic recently for dental pain. Patient actually states that his dental pain has improved and this is no longer bothering him. He denies any drooling. His initial troponin is negative and his chemistry does not look significantly changed from prior His EKG haschange in V2 with biphasic T's nonspecific in the absence of chest pain EKG shows atrial fibrillation, rate controlled, blood pressure stable Care will be transferred to Noemi Gloria PA-C pending CT abdomen and pelvis and CTA chest Medical Records Medical records reviewed: Yes I reviewed the patient's medical records. <SONYA Herrera - Last Filed: 03/20/21 18:26> Care transition myself from Anastasia Dan PA-C. Please see her initial note regarding history, presentation and exam. In brief, foot patient is a 70-year-old male presenting today with chief complaint of diminished appetite for the past few days. Per Ms. Dan, patient is a fairly poor historian and his presentation is slightly unclear. Patient has endorsing shortness of breath. He denies any chest pain. At the time I assumed care, CTA chest as well as CT abdomen pelvis was pending. FINDINGS: Tubes, catheters and devices: Surgical sternal wires in place with surgical changes in mediastinum. Pulmonary arteries: No evidence of pulmonary embolism. Aorta: Unremarkable. No aortic aneurysm. No aortic dissection. Lungs: Centrilobular emphysematous changes in bilateral lungs more prominent in upper lobes. Scarring again seen in bilateral lung bases and lingula which appear unchanged compared to prior study of January 2020. Pleural spaces: Unremarkable. No pneumothorax. No pleural effusion. Heart: Cardiomegaly. Lymph nodes: Unremarkable. No enlarged lymph nodes. Diaphragm: Moderate-size hiatal hernia. Bones/joints: Old left posterior rib fractures. No evidence of acute fracture. Soft tissues: Surgical changes on left lower anterior chest wall. IMPRESSION: 1. No evidence of pulmonary embolism. 2. Centrilobular emphysematous changes in bilateral lungs more prominent in upper lobes. Scarring in bilateral lung bases more prominent on the left which appear unchanged compared to prior study. No acute infiltrate seen. 3. Cardiomegaly. 4. Moderate-size hiatal hernia. FINDINGS: Aorta: No evidence of aortic dissection or aneurysm. Moderate atherosclerotic disease in the aorta. No significant aneurysmal dilatation. Celiac trunk and mesenteric arteries: No occlusion or significant stenosis. Renal arteries: Mild atherosclerotic calcifications in bilateral proximal renal arteries with mild to moderate stenosis in origin of right renal artery. Liver: Normal. No mass. Gallbladder and bile ducts: Normal. No calcified stones. No ductal dilation. Pancreas: Calcifications are seen in pancreatic head consistent with chronic pancreatitis. Spleen: Capsular calcifications are seen in the spleen. Spleen is otherwise unremarkable. Adrenals: Normal. No mass. Kidneys and ureters: Normal. No hydronephrosis. Stomach and bowel: Diffuse wall thickening is seen in descending and sigmoid co steve. Large amount of stool in the colon. No pericolonic inflammatory changes to suggest acute diverticulitis. No wall thickening in the small bowel. No evidence of small bowel obstruction. Mild diffuse gastric wall thickening. Appendix: No distended tubular structure in right lower quadrant. No inflammatory changes seen in right lower quadrant. No findings to suggest acute appendicitis. Lymph nodes: Unremarkable. No enlarged lymph nodes. Intraperitoneal space: No pseudocyst Bladder: Areas of significantr bladder wall thickening measuring up to 10 mm. Some of the areas of bladder wall thickening appear irregular. Bones/joints: Degenerative disc disease at L4-L5. Soft tissues: Surgical changes on left upper anterior abdominal wall. IMPRESSION: 1. Calcifications are seen in pancreatic head consistent with chronic pancreatitis. 2. Diffuse wall thickening is seen in descending and sigmoid colon. Please correlate clinically for colitis. 3. Large amount of stool in the colon. Finding is consistent with constipation. No evidence of obstruction. 4. Areas of significant bladder wall thickening measuring up to 10 mm. Some of the areas of bladder wall thickening appear irregular. Findings likely represent cystitis. Further workup to exclude malignancy is recommended. 5. Mild diffuse gastric wall thickening. Please correlate clinically for gastritis. 6. Mild atherosclerotic calcifications in bilateral proximal renal arteries with mild to moderate stenosis in origin of right renal artery. Discussed these findings with the patient. Patient eating and drinking in the department. His initial concern was that she was not having a good appetite and unable to eat. He does demonstrate ability to do so here. He does report that he has limited water intake on a daily basis, this sounds to be more preference driven. I did encourage hydration. We did discuss the findings of the CT. His history and exam does not correlate with colitis. However, more consistent with the finding of constipation. He reports that he has not had any bowel movements in approximately 5 days. This does correlate with onset of symptoms. He is a fairly poor historian. I do not see any emergent pathology at the time. He does live with a roommate. He is anxious to leave the department but will return with any new or worsening symptoms. Will refer patient to urology for follow-up of his thickened bladder wall. Will refer back to primary care next week for reevaluation. All of his questions and concerns were addressed and he is in agreement with this plan. HPI <SONYA Levy - Last Filed: 03/21/21 17:31> General Mode of arrival: ambulatory . Date/Time Provider Initiated Documentation: 03/20/21 13:47 . Limitations to Documentation: no limitations . Information obtained by: patient . HPI Narrative: This chronically ill 70-year-old gentleman with history of GI bleed, COPD, alcoholism, pulmonary hypertension, acid regurgitation, CHF presents with report of I cannot eat . He states that he is not nauseous or vomiting. He just states that he tries to eat and cannot. He states is not because he cannot swallow, he is able to swallow he reports. He denies any chest pain or shortness of breath. He states he intermittently has heartburn and this is not new for him. He states he had approximately 20 pound weight loss in the past 3 days. He denies any fever or chills. He denies dysuria. He denies any falls or recent injuries. He denies any new medications. He states he has approximately 1 drink of alcohol daily. He has no longer drinking to excess he reports. He does report shortness of breath. He states this is worse in the past 4 days. He denies any current shortness of breath at rest. He denies known sick contacts. He denies any hemoptysis. Related Data Home Medications Medication Instructions Recorded Confirmed bupropion HCl (smoking deter) 150 mg PO BID 08/04/12 03/20/21 folic acid 1 mg PO DAILY 08/04/12 03/20/21 aspirin [Ecotrin Low Strength] 81 mg PO DAILY 04/09/13 03/20/21 atorvastatin [Lipitor] 10 mg PO HS 01/25/15 03/20/21 cholecalciferol (vitamin D3) 2,000 units PO DAILY 04/12/16 03/20/21 nitroglycerin [Nitrostat] 0.4 mg SUBLINGUAL . DIRECTED PRN 04/12/16 03/20/21 pantoprazole 40 mg PO DAILY 01/15/17 03/20/21 lidocaine 5 % topical cream 1 applic TP QID 02/10/18 03/20/21 multivitamin 1 cap PO DAILY 02/10/18 03/20/21 sucralfate 100 mg/mL oral 10 ml PO QID 02/10/18 03/20/21 suspension metoprolol tartrate 12.5 mg PO BID 04/12/18 03/20/21 ipratropium 20 mcg-albuterol 100 2 puff IH TID 05/02/19 03/05/21 mcg/actuation mist for inhalation Ensure Original See Rx Instructions .ROUTE .COMPLEX 01/15/20 03/05/21 bumetanide 2 mg PO BID #20 tab 01/15/20 03/20/21 gabapentin 300 mg PO TID 01/15/20 03/20/21 hydrocodone-acetaminophen 1 tab PO TID 07/09/20 03/20/21 spironolactone 25 mg PO DAILY 07/10/20 03/20/21 amoxicillin-pot clavulanate 1 tab PO BID #14 tab 03/05/21 03/20/21 [Augmentin] ferrous sulfate [FeroSul] 325 mg PO DAILY 03/05/21 03/20/21 tamsulosin 0.4 mg PO QHS 03/05/21 03/20/21 tiotropium bromide 18 mcg INHALATION DAILY 03/05/21 03/20/21 Previous Rx's Medication Instructions Recorded bumetanide 2 mg PO BID #20 tab 01/15/20 amoxicillin-pot clavulanate 1 tab PO BID #14 tab 03/05/21 [Augmentin] Allergies Allergy/AdvReac Type Severity Reaction Status Date / Time No Known Allergies Allergy Verified 03/20/21 13:41 General Stated Complaint: [facility]Medical ANAMIKA: 3 Review of Systems <SONYA Levy - Last Filed: 03/21/21 17:31> All systems reviewed & are unremarkable except as noted in HPI and below PFSH <SONYA Levy - Last Filed: 03/21/21 17:31> Medical History (Updated 03/20/21 @ 18:22 by SONYA Herrera) Adenocarcinoma of esophagus Afib Alcohol abuse Atrial flutter CAD (coronary artery disease) Chest wall pain Chronic obstructive lung disease Coronary arteriosclerosis Diabetes mellitus Difficulty reading Diuresis Edema Epididymitis, right Essential hypertension GERD (gastroesophageal reflux disease) GI bleed Hx of esophageal malignancy Hydrocele, right Hyperlipidemia Hypertension Low back pain Pancreatitis Solitary pulmonary nodule Stomach cancer Tobacco abuse Tricuspid regurgitation Weight loss Surgical History cardiac cath Coronary Artery Bypass Gaft (CABG) EGD - IV Sedation Esophagectomy H/O colonoscopy (2007) H/O colonoscopy (04/14/18) dr geller, sigmoid diverticulosis, repeat 10 years History of esophagogastroduodenoscopy (EGD) (09/2017) History of hydrocelectomy History of right inguinal hernia repair repair times two sugrical flap of unhealing wound Family History Mother No problems noted. Father No problems noted. Social History Smoking/Tobacco Use Status: Current-Occasional Tobacco Type: cigarettes Smoking packs per day: 1 Smoking cigarettes per day: 20.0 Years smoked: 50 Smoking pack-years: 50.00 Smoking risk assessment performed?: Yes Alcohol Intake: current Alcohol Intake frequency: 0-2 drinks per day Alcohol type: beer Drug use: Never Substance use type: does not use What type of physical activity do you participate in: none Do you feel safe at home: Yes Do you feel safe in your relationship?: Yes Exam <SONYA Levy - Last Filed: 03/21/21 17:31> Const General: cooperative, no acute distress and frail appearing Eyes Pupils: PERRL Chest Chest: normal inspection of the chest Resp Effort & Inspection: normal respiratory effort Cardio Rate: regular rate Rhythm: regular rhythm GI Other: abdominal tenderness left upper quadrant left lower quadrant, no CVA tenderness Skin General skin exam: no rashes or lesions noted Neuro General: patient alert, patient oriented x3 and no focal motor deficits Cranial Nerves: CN's II-XI intact bilaterally Cognition: normal cognition Speech: speech normal Extrem General: normal to inspection Course <SONYA Levy - Last Filed: 03/21/21 17:31> Vital Signs Vital signs: Vital Signs Temperature 37.3 C 03/20/21 13:37 Pulse 117 H 03/20/21 13:37 Respiratory Rate 18 03/20/21 13:37 Blood Pressure 143/85 H 03/20/21 13:37 Pulse Oximetry 96 03/20/21 13:37 Temperature 37.3 C 03/20/21 13:37 Temperature Source Temporal Artery Scan 03/20/21 13:37 Pulse 117 H 03/20/21 13:37 Respiratory Rate 18 03/20/21 15:57 Respiratory Effort 03/20/21 15:57 Respiratory Depth Shallow 03/20/21 15:57 Respiratory Pattern Irregular 03/20/21 15:57 Blood Pressure 143/85 H 03/20/21 13:37 Blood Pressure Position Sitting 03/20/21 13:37 Pulse Oximetry 96 03/20/21 13:37 Oxygen Delivery Method Room Air 03/20/21 13:37 Oxygen Flow Rate 0 03/20/21 13:37 Lab/Test Results Lab/Test Results: Laboratory Tests Range/Units 03/20/21 03/20/21 03/20/21 14:43 14:43 14:43 WBC (4.4-10.8) 10^3/uL RBC (4.36-5.78) 10^6/uL Hgb (13.5-17.5) g/dL Hct (40.0-50.0) % MCV (80-95) fL MCH (27.0-33.0) pg MCHC (32.0-36.0) % RDW (11.8-14.1) % Plt Count (130-400) 10^3/uL MPV (8.0-11.0) fL Immature Gran % Neutrophils % Lymphocytes % Monocytes % Eosinophils % Basophils % Nucleated RBC % % Absolute Neutrophils (1.2-6.7) 10^3/uL Absolute Lymphocytes (1.2-3.4) 10^3/uL Absolute Monocytes (0.1-0.8) 10^3/uL Absolute Eosinophils (0.0-0.7) 10^3/uL Absolute Basophils (0.0-0.2) 10^3/uL VBG Lactate (0.6-1.4) mmol/L 1.5 H Sodium (136-145) mmol/L 137 Potassium (3.5-5.1) mmol/L 4.1 Chloride (98-107) mmol/L 100 Carbon Dioxide (21.0-32.0) mmol/L 27.4 Anion Gap (3-11) mmol/L 9.6 BUN (7-18) mg/dL 35 H Creatinine (0.70-1.30) mg/dL 1.1 Estimated GFR/1.73 m2 (mL/min/1.73m2) >= 60.00 Glucose (74-106) mg/dL 95 Calcium (8.5-10.1) mg/dL 9.5 Total Bilirubin (0.2-1.0) mg/dL 1.0 AST (15-37) U/L 27 ALT (16-63) U/L 19 Alkaline Phosphatase (46-116) U/L 169 H Troponin I (<0.06) ng/mL < 0.05 Total Protein (6.4-8.2) g/dL 8.1 Albumin (3.4-5.0) g/dL 3.6 Lipase (73-393) U/L 55 TSH (0.36-3.74) uIU/mL 1.66 COVID-19 Source Nasal/Nares Range/Units 03/20/21 14:43 WBC (4.4-10.8) 10^3/uL 6.29 RBC (4.36-5.78) 10^6/uL 4.84 Hgb (13.5-17.5) g/dL 15.1 Hct (40.0-50.0) % 47.1 MCV (80-95) fL 97.3 H MCH (27.0-33.0) pg 31.2 MCHC (32.0-36.0) % 32.1 RDW (11.8-14.1) % 14.7 H Plt Count (130-400) 10^3/uL 244 MPV (8.0-11.0) fL 9.2 Immature Gran % 0.5 Neutrophils % 70.3 Lymphocytes % 17.2 Monocytes % 10.5 Eosinophils % 1.0 Basophils % 0.5 Nucleated RBC % % 0 Absolute Neutrophils (1.2-6.7) 10^3/uL 4.43 Absolute Lymphocytes (1.2-3.4) 10^3/uL 1.08 L Absolute Monocytes (0.1-0.8) 10^3/uL 0.66 Absolute Eosinophils (0.0-0.7) 10^3/uL 0.06 Absolute Basophils (0.0-0.2) 10^3/uL 0.03 VBG Lactate (0.6-1.4) mmol/L Sodium (136-145) mmol/L Potassium (3.5-5.1) mmol/L Chloride (98-107) mmol/L Carbon Dioxide (21.0-32.0) mmol/L Anion Gap (3-11) mmol/L BUN (7-18) mg/dL Creatinine (0.70-1.30) mg/dL Estimated GFR/1.73 m2 (mL/min/1.73m2) Glucose (74-106) mg/dL Calcium (8.5-10.1) mg/dL Total Bilirubin (0.2-1.0) mg/dL AST (15-37) U/L ALT (16-63) U/L Alkaline Phosphatase (46-116) U/L Troponin I (<0.06) ng/mL Total Protein (6.4-8.2) g/dL Albumin (3.4-5.0) g/dL Lipase (73-393) U/L TSH (0.36-3.74) uIU/mL COVID-19 Source Sign Out <SONYA Levy - Last Filed: 03/21/21 17:31> Sign Out Data: Sign Out Comment: pending ct abd/pelvis, cta pe Last updated by Anastasia Dan PA at 03/20/21 16:09
[2021-03-20 16:03] LABS: COVID-19 PCR Negative (Negative)
[2021-03-20] MEDS: Mylanta Suspension 30 ML CUP PO (16:13)
[2021-03-20] MEDS: Omnipaque 350 MG/ML 100 ML BTL IJ (17:06)
[2021-03-20 17:26] LABS: Bilirubin Small (Negative); Blood Negative (Negative); Clarity Clear (Clear); Glucose Negative (Negative); Ketones 15 mg/dL (Negative); Leukocyte Esterase Negative (Negative); Nitrite Negative (Negative); Specific Gravity 1.025 (1.005-1.025); pH 5.5 (5-8)
[2021-03-20 17:36] LABS: Troponin I < 0.05 ng/mL (<0.06)
--- NOTE | 2021-03-20 17:41 | DI.VRAD_ITS ---
PROCEDURE INFORMATION: Exam: CTA Chest With Contrast Exam date and time: 03/20/2021 3:51 PM Age: 70 years old Clinical indication: Shortness of breath; Prior surgery TECHNIQUE: Imaging protocol: Computed tomographic angiography of the chest with contrast. 3D rendering (Not supervised by radiologist): MIP and/or 3D reconstructed images were created by the technologist. COMPARISON: CT CHEST PE CTA 01/20/2020 12:16 PM FINDINGS: Tubes, catheters and devices: Surgical sternal wires in place with surgical changes in mediastinum. Pulmonary arteries: No evidence of pulmonary embolism. Aorta: Unremarkable. No aortic aneurysm. No aortic dissection. Lungs: Centrilobular emphysematous changes in bilateral lungs more prominent in upper lobes. Scarring again seen in bilateral lung bases and lingula which appear unchanged compared to prior study of January 2020. Pleural spaces: Unremarkable. No pneumothorax. No pleural effusion. Heart: Cardiomegaly. Lymph nodes: Unremarkable. No enlarged lymph nodes. Diaphragm: Moderate-size hiatal hernia. Bones/joints: Old left posterior rib fractures. No evidence of acute fracture. Soft tissues: Surgical changes on left lower anterior chest wall. IMPRESSION: 1. No evidence of pulmonary embolism. 2. Centrilobular emphysematous changes in bilateral lungs more prominent in upper lobes. Scarring in bilateral lung bases more prominent on the left which appear unchanged compared to prior study. No acute infiltrate seen. 3. Cardiomegaly. 4. Moderate-size hiatal hernia. PROCEDURE INFORMATION: Exam: CT Angiography Abdomen With Contrast Exam date and time: 03/20/2021 3:51 PM Age: 70 years old Clinical indication: Shortness of breath; Prior surgery TECHNIQUE: Imaging protocol: Computed tomographic angiography images of the abdomen with intravenous contrast material. 3D rendering (Not supervised by radiologist): MIP and/or 3D reconstructed images were created by the technologist. COMPARISON: CT CHEST PE CTA 01/20/2020 12:16 PM FINDINGS: Aorta: No evidence of aortic dissection or aneurysm. Moderate atherosclerotic disease in the aorta. No significant aneurysmal dilatation. Celiac trunk and mesenteric arteries: No occlusion or significant stenosis. Renal arteries: Mild atherosclerotic calcifications in bilateral proximal renal arteries with mild to moderate stenosis in origin of right renal artery. Liver: Normal. No mass. Gallbladder and bile ducts: Normal. No calcified stones. No ductal dilation. Pancreas: Calcifications are seen in pancreatic head consistent with chronic pancreatitis. Spleen: Capsular calcifications are seen in the spleen. Spleen is otherwise unremarkable. Adrenals: Normal. No mass. Kidneys and ureters: Normal. No hydronephrosis. Stomach and bowel: Diffuse wall thickening is seen in descending and sigmoid colon. Large amount of stool in the colon. No pericolonic inflammatory changes to suggest acute diverticulitis. No wall thickening in the small bowel. No evidence of small bowel obstruction. Mild diffuse gastric wall thickening. Appendix: No distended tubular structure in right lower quadrant. No inflammatory changes seen in right lower quadrant. No findings to suggest acute appendicitis. Lymph nodes: Unremarkable. No enlarged lymph nodes. Intraperitoneal space: No pseudocyst. Bladder: Areas of significantr bladder wall thickening measuring up to 10 mm. Some of the areas of bladder wall thickening appear irregular. Bones/joints: Degenerative disc disease at L4-L5. Soft tissues: Surgical changes on left upper anterior abdominal wall. IMPRESSION: 1. Calcifications are seen in pancreatic head consistent with chronic pancreatitis. 2. Diffuse wall thickening is seen in descending and sigmoid colon. Please correlate clinically for colitis. 3. Large amount of stool in the colon. Finding is consistent with constipation. No evidence of obstruction. 4. Areas of significant bladder wall thickening measuring up to 10 mm. Some of the areas of bladder wall thickening appear irregular. Findings likely represent cystitis. Further workup to exclude malignancy is recommended. 5. Mild diffuse gastric wall thickening. Please correlate clinically for gastritis. 6. Mild atherosclerotic calcifications in bilateral proximal renal arteries with mild to moderate stenosis in origin of right renal artery. Dictated and Authenticated by: Jimy Gonzalez MD. Ordering:CALIXTO Oconnor MD
--- NOTE | 2021-03-20 18:30 | NUR.NOTE ---
Nursing Note: Referral faxed to [facility] for bladder wall thickening within 2 week. Evelin Mack
== END 2021-03-20 18:35 | disposition home or self-care (01) ==
PROVIDERS: Physician Assistant; Emergency Provider Physician Assistant; PCP Family Medicine
DX: K59.00 Constipation, unspecified (principal); N32.89 Other specified disorders of bladder; K63.89 Other specified diseases of intestine; R06.02 Shortness of breath; R00.0 Tachycardia, unspecified
CPT/HCPCS: 36415; 71275; 74177; 80053; 83690; 87635; 93005; 99285; 81003; 83605; 84443; 84484; 85025; 93010; 99284; J3490

== ENCOUNTER 2021-04-10 12:57 | Emergency (ER) | payer MEDICARE, MEDICAID, SELFPAY ==
[2021-04-10] VITALS (9 sets, daily range): BP systolic 108–133; BP diastolic 74–95; PULSE 93–124; RESP 18–20; TEMP 36.6–37.4; O2SAT 91–97
--- NOTE | 2021-04-10 13:14 | W.ED.GENAD ---
Discharge Plan Disposition Patient Disposition: HOME Condition: Stable Discharge Details Clinical Impression: Fatigue, Altered mental status, Shortness of breath, Abdominal pain, COVID-19 Primary Care Provider: Silvina Perdue ED Provider: Shaun Watts Home Meds and New Rx's Prescriptions: Continued sucralfate [Carafate] 100 mg/mL suspension 10 ml PO QID RF: 0 lidocaine 5 % cream 1 applic TP QID RF: 0 multivitamin capsule 1 cap PO DAILY RF: 0 Combivent Respimat 20-100 mcg/actuation mist 2 puff IH TID RF: 0 folic acid 1 MG tablet 1 mg PO DAILY RF: 0 bupropion HCl (smoking deter) 150 MG tablet extended release 12 hr 150 mg PO BID RF: 0 aspirin [Ecotrin Low Strength] 81 MG tablet,delayed release (DR/EC) 81 mg PO DAILY RF: 0 atorvastatin [Lipitor] 10 MG tablet 10 mg PO HS RF: 0 nitroglycerin [Nitrostat] 0.4 MG tablet, sublingual 0.4 mg Sublingual . DIRECTED PRN (Reason: Chest Pain) RF: 0 cholecalciferol (vitamin D3) 1,000 UNITS tablet 2,000 units PO DAILY RF: 0 gabapentin 300 mg capsule 300 mg PO TID RF: 0 Ensure Original Liquid See Rx Instructions .ROUTE .COMPLEX RF: 0 bumetanide 2 mg tablet 2 mg PO BID Qty: 20 RF: 0 hydrocodone-acetaminophen 10-325 mg tablet 1 tab PO TID RF: 0 spironolactone 25 mg tablet 25 mg PO DAILY RF: 0 pantoprazole 40 MG tablet,delayed release (DR/EC) 40 mg PO DAILY RF: 0 metoprolol tartrate 25 mg Tablet 12.5 mg PO BID RF: 0 amoxicillin-pot clavulanate [Augmentin] 875-125 mg tablet 1 tab PO BID Qty: 14 RF: 0 tamsulosin 0.4 mg capsule 0.4 mg PO QHS RF: 0 ferrous sulfate [FeroSul] 325 mg (65 mg iron) tablet 325 mg PO DAILY RF: 0 tiotropium bromide 18 mcg Capsule, W/Inhalation Device 18 mcg INHALATION DAILY RF: 0 Discharge Instructions Instructions: COVID-19 (Coronavirus Disease 2019) (ED) Additional Instructions: you tested positive for covid follow up with your primary care provider this week if you feel more ill, have worsening shortness of breath or severe pain return to the emergency department Medical Decision Making 70 yo male with hx of copd, prior alcohol abuse and states he has cut back and doesn't drink daily per patient, who comes in with vague complaints. Most history was obtained from the roommate as patient just repeatedly states I don't know I just don't feel good. He apparently has had some loose stools and the last few days has not been himself being more tired and confused. No reported fevers. He is oriented to self and place but doesn't know the year. When I ask numerous times and different ways what symptoms he has he says I don't know I just don't feel good. Unclear if he has had a cough, dyspnea, abodminal pain. He has no focal neuro deficits on exam but does appear weak globally. He has diminished breath sounds at the bases and on abdominal exam is tender in the mid to upper abodmen. no noted rashes. Unclear etiology for his symptoms but given his age and symptoms numerous different possiblities for his symptoms. Will obtain ct head to evaluate for sdh, and ct chest for pe given his tachcycardia to evaluate for Pe vs pneumonia. He has abdominal tenderness so will obtain ct to evaluate for surgical pathology such as cholecystitis and obtain labs to evaluate for anemia and electrolyte abnormalities pt stable blood work without acute abnormalities, ct head unremarkable, chest/abd/pevlis pending, is positive for covid. Per nursing is vaccinated, will initiate MAB infusion while results pending. He does seem more lucid now and not as tired, no abdominal tenderness currently ct chest shows patchy opacity in right lung base which could represent pneumonia vs aspiration and has opacities bilaterally and feel this is more likely related to his known covid. No pain over right 9/10 ribs. Has thickened urinary bladder wall no evidence of uti on ua and no symptoms of dysuria or frequency so doubt uti. Other nonacute findings, has been having normal bm's. Patient is caox3 though doesn't know the year though talking with his roommate this is not unlike him. He is more alert and is ambulating on his own and has no hypoxia so do not feel he requires inpatient care for covid. Will d/c and advised to f/u with pcp and return precautions given Differential Diagnosis Differential Diagnosis: electrolyte abnormality, colitis, PE, pneumonia Medical Records Medical records reviewed: Yes I reviewed the patient's medical records. Imaging Data Radiologic Study: Attestation: I personally reviewed and interpreted this imaging study as follows: Imaging: CT Scan Radiologist's impression: IMPRESSION: No acute intracranial hemorrhage, mass effect or midline shift. Radiologic Study #2: Attestation: I personally reviewed and interpreted this imaging study as follows: Imaging: CT Scan Radiologist's impression: 1. Patchy opacity in the right lung base which could represent pneumonia versus aspiration. Additional small opacities bilaterally may be of similar etiology or represent atelectasis. 2. Subacute fractures in the right 9th and 10th ribs. Correlate for any point tenderness in this region. 3. No evidence of pulmonary emboli. IMPRESSION: 1. Thickened urinary bladder peng, which could be secondary to underdistention versus infectious/inflammatory etiology. Correlate with clinical laboratory findings. 2. Coarse calcifications at the head of the pancreas may be secondary to chronic pancreatitis or a calcified lesion. Correlate with prior clinical history and any remote imaging. 3. Distended rectum containing stool, which could be impacted. Correlate with clinical findings Lab Data Lab results reviewed: Yes I reviewed the patient's lab results. ECG Data Attestation: I personally reviewed and interpreted this ECG (s) as follows: HPI General Mode of arrival: wheelchair. Date/Time Provider Initiated Documentation: 04/10/21 12:59. Limitations to Documentation: other (not a great historian). Information obtained by: family (roomate). History of Present Illness 70 year old M presents to the emergency department with the chief complaint of I don't feel good, described as moderate, Patient started experiencing this day(s) (2) and it has been constant. No relieving factors improve symptom(s), No exacerbating factors reported . Patient notes weakness. Patient did receive the following treatments prior to arrival, none Related Data Home Medications Medication Instructions Recorded Confirmed bupropion HCl (smoking deter) 150 mg PO BID 08/04/12 04/10/21 folic acid 1 mg PO DAILY 08/04/12 04/10/21 aspirin [Ecotrin Low Strength] 81 mg PO DAILY 04/09/13 04/10/21 atorvastatin [Lipitor] 10 mg PO HS 01/25/15 04/10/21 cholecalciferol (vitamin D3) 2,000 units PO DAILY 04/12/16 04/10/21 nitroglycerin [Nitrostat] 0.4 mg SUBLINGUAL . DIRECTED PRN 04/12/16 04/10/21 pantoprazole 40 mg PO DAILY 01/15/17 04/10/21 lidocaine 5 % topical cream 1 applic TP QID 02/10/18 04/10/21 multivitamin 1 cap PO DAILY 02/10/18 04/10/21 sucralfate 100 mg/mL oral 10 ml PO QID 02/10/18 04/10/21 suspension metoprolol tartrate 12.5 mg PO BID 04/12/18 04/10/21 ipratropium 20 mcg-albuterol 100 2 puff IH TID 05/02/19 04/10/21 mcg/actuation mist for inhalation Ensure Original See Rx Instructions .ROUTE .COMPLEX 01/15/20 04/10/21 bumetanide 2 mg PO BID #20 tab 01/15/20 04/10/21 gabapentin 300 mg PO TID 01/15/20 04/10/21 hydrocodone-acetaminophen 1 tab PO TID 07/09/20 04/10/21 spironolactone 25 mg PO DAILY 07/10/20 04/10/21 amoxicillin-pot clavulanate 1 tab PO BID #14 tab 03/05/21 04/10/21 [Augmentin] ferrous sulfate [FeroSul] 325 mg PO DAILY 03/05/21 04/10/21 tamsulosin 0.4 mg PO QHS 03/05/21 04/10/21 tiotropium bromide 18 mcg INHALATION DAILY 03/05/21 04/10/21 Previous Rx's Medication Instructions Recorded bumetanide 2 mg PO BID #20 tab 01/15/20 amoxicillin-pot clavulanate 1 tab PO BID #14 tab 03/05/21 [Augmentin] Allergies Allergy/AdvReac Type Severity Reaction Status Date / Time No Known Allergies Allergy Verified 04/10/21 13:06 General Stated Complaint: AMS/LOC ANAMIKA: 3 Review of Systems All systems reviewed & are unremarkable except as noted in HPI and below Constitutional Constitutional: Denies chills and Denies fever(s) Cardiovascular Cardiovascular: Denies chest pain Respiratory Respiratory: Denies cough Gastrointestinal Gastrointestinal: Denies nausea and Denies vomiting Musculoskeletal Musculoskeletal: Denies joint swelling [facility] Medical History (Updated 04/10/21 @ 17:16 by Shaun Watts MD) Adenocarcinoma of esophagus Afib Alcohol abuse Atrial flutter CAD (coronary artery disease) Chest wall pain Chronic obstructive lung disease Coronary arteriosclerosis Diabetes mellitus Difficulty reading Diuresis Edema Epididymitis, right Essential hypertension GERD (gastroesophageal reflux disease) GI bleed Hx of esophageal malignancy Hydrocele, right Hyperlipidemia Hypertension Low back pain Pancreatitis Solitary pulmonary nodule Stomach cancer Tobacco abuse Tricuspid regurgitation Weight loss Surgical History cardiac cath Coronary Artery Bypass Gaft (CABG) EGD - IV Sedation Esophagectomy H/O colonoscopy (2007) H/O colonoscopy (04/14/18) dr geller, sigmoid diverticulosis, repeat 10 years History of esophagogastroduodenoscopy (EGD) (09/2017) History of hydrocelectomy History of right inguinal hernia repair repair times two sugrical flap of unhealing wound Family History Mother No problems noted. Father No problems noted. Social History Smoking/Tobacco Use Status: Current-Occasional Tobacco Type: cigarettes Smoking packs per day: 1 Smoking cigarettes per day: 20.0 Years smoked: 50 Smoking pack-years: 50.00 Smoking risk assessment performed?: Yes Alcohol Intake: current Alcohol Intake frequency: 0-2 drinks per day Alcohol type: beer Drug use: Never Substance use type: does not use What type of physical activity do you participate in: none Do you feel safe at home: Yes Do you feel safe in your relationship?: Yes Exam Const General: no acute distress Orientation: alert HENME Head: normal to inspection Ears: external ears normal General nose exam: external nose normal Mouth: moist mucous membranes Eyes General: appearance normal, both eyes and all related structures Neck Neck: normal visual inspection Resp Effort & Inspection: normal respiratory effort and able to speak in complete sentences Cardio Rate: regular rate GI Palpation: soft and tender Skin General skin exam: no rashes or lesions noted Neuro General: patient alert Extrem General: normal to inspection Psych Mental Status: mental status grossly normal Course Vital Signs Vital signs: Vital Signs Temperature 36.6 C 04/10/21 13:02 Pulse 124 H 04/10/21 13:02 Respiratory Rate 20 04/10/21 13:02 Blood Pressure 133/95 H 04/10/21 13:02 Pulse Oximetry 97 04/10/21 13:02 Temperature 36.6 C 04/10/21 13:02 Temperature Source Temporal Artery Scan 04/10/21 13:02 Pulse 124 H 04/10/21 13:02 Respiratory Rate 20 04/10/21 13:02 Blood Pressure 133/95 H 04/10/21 13:02 Blood Pressure Position Sitting 04/10/21 13:02 Pulse Oximetry 97 04/10/21 13:02 Oxygen Delivery Method Room Air 04/10/21 13:02 Oxygen Flow Rate 0 04/10/21 13:02 Pain Level 0 04/10/21 13:02
--- NOTE | 2021-04-10 13:15 | DI.CT_ITS ---
Exam(s) CT CHEST PE ABD PELVIS W EXAM: CT CHEST PE ABD PELVIS W CLINICAL HISTORY: tachycardia, pain, ?PE vs cholecystitis TECHNIQUE: CT examination of the chest, abdomen, and pelvis was performed with intravenous infusion of 100 cc of Omnipaque 350. COMPARISON: CT CT CHEST PE ABD PELVIS W from 03/20/2021 FINDINGS: There are severe pulmonary emphysematous changes. There are patchy areas of consolidation in both akil[place] ng bases, right greater than left. Findings are suspicious for pneumonitis. Note is made of a large hiatal hernia. Sternal sutures and old right rib fractures noted. There is no pleural effusion seen. There is no mediastinal or hilar adenopathy. Pulmonary arteries are unremarkable with no evidence of pulmonary embolic disease. Thoracic aorta and major branches appear intact with no evidence of aneurysm or dissection. No bony abnormality seen in the thorax. The liver is normal appearance. Gallbladder and bile ducts are CT normal. There are splenic rim calcifications, no evidence of acute pathology period. Pancreas appears intact. The adrenals are unremarkable in appearance. The kidneys appear intact with no evidence of hydroneph rosis or nephrolithiasis. Urinary bladder has a thickened wall which may reflect chronic bladder out let obstruction or cystitis. Prostate is enlarged. Abdominal aorta and major visceral branches appear intact. No significant abdominal wall hernia seen. No significant abdominal or pelvic adenopathy. The appendix is not visualized but there is no specific evidence of appendicitis or diverticulitis. There is a large quantity of fecal material in the rectum consistent with constipation. No evidence of bowel obstruction. IMPRESSION: The appearance as described above is suggestive of bilateral basilar pneumonia, right greater than le ft. No other specific acute process. RADIATION DOSE DELIVERED: 740.18mGy.cm Total DLP 740.18mGy.cm Total DLP 10.58mGy CTDIvol
--- NOTE | 2021-04-10 13:15 | DI.CT_ITS ---
Exam(s) CT HEAD WO EXAM: CT HEAD WO CLINICAL HISTORY: ams. TECHNIQUE: Imaging Protocol: Axial computed tomography images with coronal and sagittal reformatted images were created and reviewed COMPARISON: CT CT HEAD WO from 07/09/2020 FINDINGS: There is moderate generalized cerebral atrophy and there are patchy areas of decreased attenuation in periventricular white matter consistent with microvascular ischemic changes. No evidence of acute intracranial hemorrhage, mass effect, or midline shift. The orbital structures are unremarkable. The temporal bone structures appear intact. Calvarium: Normal. Visualized Paranasal sinuses/Mastoids: Clear. IMPRESSION: No evidence of acute intracranial process. RADIATION DOSE DELIVERED: 769.8mGy.cm Total DLP 769.8mGy.cm Total DLP 36.45mGy CTDIvol DATA REPOSITORY: All CT scans at this facility are submitted to the National Radiology Data Registry (NRDR) Dose Index Registry (DIR) with the [employer] (ACR). RADIATION OPTIMIZATION: All CT scans at this facility use at least one of these dose optimization te chniques: automated exposure control; mA and/or kV adjustment per patient size (includes targeted exa ms where dose is matched to clinical indication); or iterative reconstruction.
[2021-04-10 15:07] LABS: BE (Venous) 4 mmol/L (-2-3); HCO3 (Venous) 29 mmol/L (23-28); O2 Sat (Venous) 35 %; TCO2 (Venous) 26 mmol/L (24-29); pCO2 (Venous) 47 mmHg (41-51); pO2 (Venous) 22 mmHg
[2021-04-10 15:18] LABS: Abs Immature Grans 0.03 10^3/uL (0.0-0.06); Absolute Basophil Count 0.01 10^3/uL (0.0-0.2); Absolute Lymphocyte Count 0.51 10^3/uL (1.2-3.4); Absolute Monocyte Count 0.84 10^3/uL (0.1-0.8); Absolute Neutrophil Count 6.87 10^3/uL (1.2-6.7); Basophils % 0.1; HCT 41.8 % (40.0-50.0); HGB 13.6 g/dL (13.5-17.5); Immature Grans % 0.4; Lymphocytes % 6.2; MCH 31.5 pg (27.0-33.0); MCHC 32.5 % (32.0-36.0); MCV 96.8 fL (80-95); MPV 9.4 fL (8.0-11.0); Monocytes % 10.2; Neutrophils % 83.1; Nucleated RBC 0 %; Platelet Count 222 10^3/uL (130-400); RBC 4.32 10^6/uL (4.36-5.78); RDW 14.2 % (11.8-14.1); RDW-SD 50.8 fL; WBC 8.26 10^3/uL (4.4-10.8)
[2021-04-10 15:22] LABS: ALT 21 U/L (16-63); AST 24 U/L (15-37); Alkaline Phosphatase 131 U/L (46-116); Anion Gap 7.4 mmol/L (3-11); BUN 42 mg/dL (7-18); Bilirubin, Direct 0.4 mg/dL (0.0-0.2); Bilirubin, Total 0.7 mg/dL (0.2-1.0); CO2 30.6 mmol/L (21.0-32.0); CREATININE 0.9 mg/dL (0.70-1.30); Chloride 100 mmol/L (98-107); Creatine Kinase 43 U/L (39-308); Glucose 85 mg/dL (74-106); Magnesium 1.8 mg/dL (1.8-2.4); Potassium 3.7 mmol/L (3.5-5.1); Sodium 138 mmol/L (136-145); Total Protein 7.1 g/dL (6.4-8.2)
[2021-04-10 15:28] LABS: Source Nasal/Nares
[2021-04-10 15:44] LABS: Bilirubin Negative (Negative); Blood Negative (Negative); Clarity Sl Cloudy (Clear); Glucose Negative (Negative); Ketones Negative (Negative); Leukocyte Esterase Negative (Negative); Nitrite Negative (Negative)
[2021-04-10 16:00] LABS: ETHANOL BLOOD < 3.0 mg/dL (<10)
[2021-04-10 16:16] LABS: Bacteria Negative HPF (Negative); C & S Indicated? C&S Done As Ordered; Crystals Negative HPF (Negative); Epithelial Cells Negative HPF (Negative); Mucus Negative (Negative); RBC 0-2 HPF (0-2); WBC Negative HPF (0-5)
[2021-04-10 16:17] LABS: COVID-19 PCR POSITIVE (Negative)
[2021-04-10] MEDS: Omnipaque 350 MG/ML 100 ML BTL IJ (16:50)
[2021-04-10] MEDS: Normal Saline - Diluent 50 ML VIAL IV (16:51)
--- NOTE | 2021-04-10 16:54 | DI.VRAD_ITS ---
PROCEDURE INFORMATION: Exam: CT Head Without Contrast Exam date and time: 04/10/2021 1:22 PM Age: 70 years old Clinical indication: Altered mental status/memory loss; Patient HX: AMS TECHNIQUE: Imaging protocol: Computed tomography of the head without contrast. COMPARISON: CT HEAD WO 07/09/2020 1:51 PM FINDINGS: Brain: There is no acute intracranial hemorrhage, mass effect or midline shift. No large acute territorial infarct identified. There are patchy regions of hypodensity in the periventricular and subcortical white matter, likely on the basis of chronic microvascular ischemic disease. Cerebral ventricles: The ventricles and sulci are prominent in size, which is at least in part due to global cerebral volume loss. Paranasal sinuses: Visualized sinuses are unremarkable. No fluid levels. Mastoid air cells: Visualized mastoid air cells are well aerated. Bones/joints: Unremarkable. No acute fracture. Soft tissues: Unremarkable. IMPRESSION: No acute intracranial hemorrhage, mass effect or midline shift. Dictated and Authenticated by: Theresa Mace MD. Ordering:DEANDRE Dunn MD
[2021-04-10] MEDS: Normal Saline 1,000 ML 1000 ML IV (17:44)
--- NOTE | 2021-04-10 17:45 | DI.VRAD_ITS ---
PROCEDURE INFORMATION: Exam: CTA Chest With Contrast Exam date and time: 04/10/2021 1:22 PM Age: 70 years old Clinical indication: Patient HX: Tachycardia, pain; Additional info: ? Pe, cholecystitis TECHNIQUE: Imaging protocol: Computed tomographic angiography of the chest with contrast. 3D rendering (Not supervised by radiologist): MIP and/or 3D reconstructed images were created by the technologist. COMPARISON: CT CHEST PE ABD PELVIS W 03/20/2021 4:49 PM FINDINGS: Pulmonary arteries: No pulmonary emboli. Aorta: No aortic aneurysm. No aortic dissection. Lungs: Centrilobular and bullous emphysema noted throughout the bilateral lung echols. There is a patchy opacity seen in the right lung base, concerning for pneumonia versus aspiration. Mild linear opacities in the left lung base and right upper lobe may represent is similar etiology or could be secondary to atelectasis. Pleural spaces: No pneumothorax. No pleural effusion. Heart: No cardiomegaly. No pericardial effusion. Lymph nodes: No enlarged lymph nodes. Diaphragm: There is a large hiatal hernia noted, which could be postsurgical in nature. Bones/joints: There are fractures of the right 9th and 10th ribs which appear subacute (images 485 and by 50 of series 5). Old rib fractures are noted in the right 11th and left 7th, 8th and 9th ribs. Soft tissues: Unremarkable. IMPRESSION: 1. Patchy opacity in the right lung base which could represent pneumonia versus aspiration. Additional small opacities bilaterally may be of similar etiology or represent atelectasis. 2. Subacute fractures in the right 9th and 10th ribs. Correlate for any point tenderness in this region. 3. No evidence of pulmonary emboli. PROCEDURE INFORMATION: Exam: CT Abdomen And Pelvis With Contrast Exam date and time: 04/10/2021 1:22 PM Age: 70 years old Clinical indication: Patient HX: Tachycardia, pain; Additional info: ? Pe, cholecystitis TECHNIQUE: Imaging protocol: Computed tomography of the abdomen and pelvis with contrast. COMPARISON: CT CHEST PE ABD PELVIS W 03/20/2021 4:49 PM FINDINGS: Liver: Normal. No mass. Gallbladder and bile ducts: No calcified stones. No ductal dilation. Pancreas: Course region of calcification seen at the head of the pancreas. Spleen: Calcifications noted along the superior aspect of the spleen. No splenomegaly. Adrenal glands: Normal. No mass. Kidneys and ureters: No hydronephrosis. Stomach and bowel: Distention of the rectum containing stool, which could be impacted. Appendix: No evidence of appendicitis. Intraperitoneal space: Surgical clips are noted in the left upper quadrant of the abdomen adjacent to the stomach. Vasculature: There is diffuse calcified atherosclerotic plaque throughout the abdominal aorta and iliac arteries. No abdominal aortic aneurysm. Lymph nodes: No enlarged lymph nodes. Urinary bladder: The urinary bladder peng are thickened, which could be secondary to underdistention versus infectious/inflammatory etiology. Reproductive: Calcifications again noted in the prostate gland. Incidentally noted is the left testicle retracted into the left inguinal canal. Bones/joints: Degenerative changes are noted in the lumbar spine, most prominent at L4-L5 with moderate bilateral neural foraminal narrowing. Soft tissues: Unremarkable. IMPRESSION: 1. Thickened urinary bladder peng, which could be secondary to underdistention versus infectious/inflammatory etiology. Correlate with clinical laboratory findings. 2. Coarse calcifications at the head of the pancreas may be secondary to chronic pancreatitis or a calcified lesion. Correlate with prior clinical history and any remote imaging. 3. Distended rectum containing stool, which could be impacted. Correlate with clinical findings. Dictated and Authenticated by: Theresa Mace MD. Ordering:DEANDRE Dunn MD
== END 2021-04-10 21:10 | disposition home or self-care (01) ==
PROVIDERS: Emergency Provider Emergency Medicine; PCP Family Medicine
DX: U07.1 COVID-19 (principal); R53.83 Other fatigue; R06.02 Shortness of breath; R41.82 Altered mental status, unspecified; R10.9 Unspecified abdominal pain; R91.8 Other nonspecific abnormal finding of lung field; Z20.822 Contact with and (suspected) exposure to COVID-19
CPT/HCPCS: 36415; 71275; 74177; 80053; 82550; 82805; 87040; 87449; 87635; 96360; 96361; 96365; 99285; 70450; 80320; 81003; 81015; 82248; 83735; 85025; 87086; J3490

== ENCOUNTER 2021-04-10 13:33 | Outpatient (REF) | payer MEDICARE, MEDICAID, SELFPAY ==
[2021-04-10 15:33] LABS: HCT 43.5 % (40.0-50.0); HGB 13.9 g/dL (13.5-17.5); MCH 31.2 pg (27.0-33.0); MCV 97.5 fL (80-95); MPV 9.7 fL (8.0-11.0); Platelet Count 232 10^3/uL (130-400); RBC 4.46 10^6/uL (4.36-5.78); RDW 14.3 % (11.8-14.1); RDW-SD 51.7 fL; WBC 7.01 10^3/uL (4.4-10.8)
[2021-04-10 16:47] LABS: Anion Gap 8.6 mmol/L (3-11); BUN 40 mg/dL (7-18); CO2 29.4 mmol/L (21.0-32.0); CREATININE 0.9 mg/dL (0.70-1.30); Calcium 9.3 mg/dL (8.5-10.1); Chloride 101 mmol/L (98-107); Glucose 97 mg/dL (74-106); Potassium 4.2 mmol/L (3.5-5.1); Sodium 139 mmol/L (136-145); TSH (W/Ref FT4) 2.02 uIU/mL (0.36-3.74)
[2021-04-11 22:17] LABS: COVID-19 RT-PCR UVMMC Result Positive (Negative)
== END 2021-04-10 13:34 | disposition home or self-care (01) ==
LOC: NCHCN 13:33
PROVIDERS: PCP Family Medicine; Visit Provider Family Medicine
DX: R63.4 Abnormal weight loss (principal); D50.9 Iron deficiency anemia, unspecified; R05.8 Other specified cough; Z20.822 Contact with and (suspected) exposure to COVID-19; E40 Kwashiorkor
CPT/HCPCS: 80048; 85027; U0003; U0005; 84443

== ENCOUNTER 2021-04-11 01:24 | Inpatient (IN) | payer MEDICARE, MEDICAID, SELFPAY ==
[2021-04-11] VITALS (29 sets, daily range): BP systolic 86–126; BP diastolic 42–71; PULSE 60–118; RESP 13–24; TEMP 36.2–37.4; O2SAT 92–100
--- NOTE | 2021-04-11 01:26 | ED.GENADUL_ITS ---
Discharge Plan Disposition Patient Disposition: [facility] INPATIENT Condition: Poor Discharge Details Clinical Impression: COVID-19, AMS (altered mental status) Primary Care Provider: Silvina Perdue ED Provider: Conrad Ivy [place] Meds and New Rx's Prescriptions: No Action sucralfate [Carafate] 100 mg/mL suspension 10 ml PO QID RF: 0 lidocaine 5 % cream 1 applic TP QID RF: 0 multivitamin capsule 1 cap PO DAILY RF: 0 Combivent Respimat 20-100 mcg/actuation mist 2 puff IH TID RF: 0 folic acid 1 MG tablet 1 mg PO DAILY RF: 0 bupropion HCl (smoking deter) 150 MG tablet extended release 12 hr 150 mg PO BID RF: 0 aspirin [Ecotrin Low Strength] 81 MG tablet,delayed release (DR/EC) 81 mg PO DAILY RF: 0 atorvastatin [Lipitor] 10 MG tablet 10 mg PO HS RF: 0 nitroglycerin [Nitrostat] 0.4 MG tablet, sublingual 0.4 mg Sublingual . DIRECTED PRN (Reason: Chest Pain) RF: 0 cholecalciferol (vitamin D3) 1,000 UNITS tablet 2,000 units PO DAILY RF: 0 gabapentin 300 mg capsule 300 mg PO TID RF: 0 Ensure Original Liquid See Rx Instructions .ROUTE .COMPLEX RF: 0 bumetanide 2 mg tablet 2 mg PO BID Qty: 20 RF: 0 hydrocodone-acetaminophen 10-325 mg tablet 1 tab PO TID RF: 0 spironolactone 25 mg tablet 25 mg PO DAILY RF: 0 pantoprazole 40 MG tablet,delayed release (DR/EC) 40 mg PO DAILY RF: 0 metoprolol tartrate 25 mg Tablet 12.5 mg PO BID RF: 0 amoxicillin-pot clavulanate [Augmentin] 875-125 mg tablet 1 tab PO BID Qty: 14 RF: 0 tamsulosin 0.4 mg capsule 0.4 mg PO QHS RF: 0 ferrous sulfate [FeroSul] 325 mg (65 mg iron) tablet 325 mg PO DAILY RF: 0 tiotropium bromide 18 mcg Capsule, W/Inhalation Device 18 mcg INHALATION DAILY RF: 0 Medical Decision Making Patient returns to ED by ambulance with continued altered mental status. Diagno sed with COVID-19 and spent majority of the day in the ED. Family returned him to the hospital because of his altered mental status. He is mildly tachycardic. His saturations are normal. He is awake and alert but very slow to respond. At the point does not even respond to questioning. Is unable to provide much of the history. Does not appear to be in distress. Case discussed with raudel hooker Patient is reportedly vaccinated against Covid. He did receive MAB therapy while here earlier. He will be admitted to hospitalist service for further management. Medical Records Medical records reviewed: Yes I reviewed the patient's medical records. Lab Data Lab results reviewed: Yes I reviewed the patient's lab results. Lab results narrative: From visit earlier today. HPI General Mode of arrival: EMS . Date/Time Provider Initiated Documentation: 04/11/21 01:26 . Limitations to Documentation: altered mental status . Information obtained by: patient, RN notes reviewed and old records reviewed . HPI Narrative: Patient returns to ED by ambulance with altered mental status. Patient here most of the day and ultimately diagnosed with COVID-19. CT head was unremarkable. CT chest showed findings consistent with Covid but no PE. CT of abdomen pelvis was negative. Laboratory studies for the most part unremarkable. Patient was discharged and family did take him home. However at home he continues to be altered per the family and EMS was called to bring him back here. Patient himself denies having any pain. He denies any shortness of breath. He is very slow to answer questions and does not offer up a lot other than I do not know. Related Data Home Medications Medication Instructions Recorded Confirmed bupropion HCl (smoking deter) 150 mg PO BID 08/04/12 04/10/21 folic acid 1 mg PO DAILY 08/04/12 04/10/21 aspirin [Ecotrin Low Strength] 81 mg PO DAILY 04/09/13 04/10/21 atorvastatin [Lipitor] 10 mg PO HS 01/25/15 04/10/21 cholecalciferol (vitamin D3) 2,000 units PO DAILY 04/12/16 04/10/21 nitroglycerin [Nitrostat] 0.4 mg SUBLINGUAL . DIRECTED PRN 04/12/16 04/10/21 pantoprazole 40 mg PO DAILY 01/15/17 04/10/21 lidocaine 5 % topical cream 1 applic TP QID 02/10/18 04/10/21 multivitamin 1 cap PO DAILY 02/10/18 04/10/21 sucralfate 100 mg/mL oral 10 ml PO QID 02/10/18 04/10/21 suspension metoprolol tartrate 12.5 mg PO BID 04/12/18 04/10/21 ipratropium 20 mcg-albuterol 100 2 puff IH TID 05/02/19 04/10/21 mcg/actuation mist for inhalation Ensure Original See Rx Instructions .ROUTE .COMPLEX 01/15/20 04/10/21 bumetanide 2 mg PO BID #20 tab 01/15/20 04/10/21 gabapentin 300 mg PO TID 01/15/20 04/10/21 hydrocodone-acetaminophen 1 tab PO TID 07/09/20 04/10/21 spironolactone 25 mg PO DAILY 07/10/20 04/10/21 amoxicillin-pot clavulanate 1 tab PO BID #14 tab 03/05/21 04/10/21 [Augmentin] ferrous sulfate [FeroSul] 325 mg PO DAILY 03/05/21 04/10/21 tamsulosin 0.4 mg PO QHS 03/05/21 04/10/21 tiotropium bromide 18 mcg INHALATION DAILY 03/05/21 04/10/21 Previous Rx's Medication Instructions Recorded bumetanide 2 mg PO BID #20 tab 01/15/20 amoxicillin-pot clavulanate 1 tab PO BID #14 tab 03/05/21 [Augmentin] Allergies Allergy/AdvReac Type Severity Reaction Status Date / Time No Known Allergies Allergy Verified 04/10/21 13:06 General ANAMIKA: 3 Review of Systems Unobtainable due to mental status [facility] Medical History Adenocarcinoma of esophagus Afib Alcohol abuse CAD (coronary artery disease) Chronic obstructive lung disease Diabetes mellitus Difficulty reading Essential hypertension GERD (gastroesophageal reflux disease) GI bleed Hyperlipidemia Pancreatitis Solitary pulmonary nodule Tobacco abuse Tricuspid regurgitation Weight loss Surgical History cardiac cath Coronary Artery Bypass Gaft (CABG) EGD - IV Sedation Esophagectomy H/O colonoscopy (2007) H/O colonoscopy (04/14/18) dr geller, sigmoid diverticulosis, repeat 10 years History of esophagogastroduodenoscopy (EGD) (09/2017) History of hydrocelectomy History of right inguinal hernia repair repair times two sugrical flap of unhealing wound Family History Mother No problems noted. Father No problems noted. Social History Smoking/Tobacco Use Status: Current-Occasional Tobacco Type: cigarettes Smoking packs per day: 1 Smoking cigarettes per day: 20.0 Years smoked: 50 Smoking pack-years: 50.00 Smoking risk assessment performed?: Yes Alcohol Intake: current Alcohol Intake frequency: 0-2 drinks per day Alcohol type: beer Drug use: Never Substance use type: does not use What type of physical activity do you participate in: none Do you feel safe at home: Yes Do you feel safe in your relationship?: Yes Exam Narrative Exam Narrative: Const: Very thin elderly male in NAD. HEENT: NC/AT. Normal facial exam. Clear nasal discharge. Eyes: Normal conjunctiva and sclera. Neck: Supple. Trachea midline. Lungs: Normal respiratory effort. Lungs with few rhonchi/wheeze Cor: RRR with murmur. Good radial pulses. GI: Soft. NT/ND. No guarding or rebound. Neuro: Awake alert but slow to respond. Normal speech. Cranial nerves II - XII grossly intact. No gross motor or sensory deficit. Generally weak. Ext: No C/C/E. Skin: Warm and dry without rash.
[2021-04-11] MEDS: Normal Saline 1,000 ML 125 ML IV ×2 (04:16→16:43)
--- NOTE | 2021-04-11 04:55 | W.PM.HP.N ---
Date of service: 04/11/21 Time of Service: 04:56 Assessment and Plan Assessment and plan (1) COVID-19: Status: Acute Assessment and plan: + Pneumonia noted on CT chest. Procalcitonin pending. Cannot r/o aspiration pneumonia/pneumonitis. He is reportedly vaccinated for COVID-19. No supplemental O2 requirements. Guidelines state use of Remdesivir if at risk for developing worsening condition. Given his COPD, CAD, general debilitated state, did administer Remdesivir with orders to continue. No dexamethasone. He received mAb infusion on 04/10/21 when in the ED. Covid precautions. Telemetry. O2 saturation monitoring. (2) AMS (altered mental status): Status: Acute Assessment and plan: Unclear etiology. Presented similarly earlier this year and improved with treatment of pneumonia. Covid related most likely. H/O alcohol abuse. His roommate did not answer phone when called. At earlier admission this year she stated he drank more often than he admits to. He states he doesn't drink daily. CIWA monitoring. Initiate treatments if begins to score. (3) Bladder wall thickening: Status: Acute Assessment and plan: Noted on previous CT pelvis and current CT. No UTI. (4) History of GI bleed: Status: Acute Assessment and plan: He takes an ASA daily; Hgb normal. Now on Lovenox. Possible varices d/t alcohol intake. Monitor closely (5) Chronic obstructive lung disease: Status: None Assessment and plan: No exacerbation currently. Cont Combivent. + tobacco use; nicoderm ordered. (6) Alcohol abuse: Status: None Assessment and plan: See AMS (7) CAD (coronary artery disease): Status: Chronic Assessment and plan: Cont aspirin and BB No CP has been voiced. (8) Afib: Status: Chronic Assessment and plan: Cont BB Not on anticoagulation. H/O falls / rib fractures. Paced ventricular rhythm Telemetry. (9) Hypertension: Status: Chronic Assessment and plan: Low normal BP readings currently. Continued BB, spironolactone and Bumex. Monitor and hold meds if necessary. (10) Rib fractures: Status: Acute Assessment and plan: Subacute. Abnormal left sided rib cage appearance. senior controls technician is going to process CT with bone windows. General Surgery consulted. He chronically takes Percocet 10mg TID; will continue but may cut dosage back if altered mental status continues to be an issue. PT consult after surgery evaluates would be appropriate. (11) Malnutrition: Status: Acute Assessment and plan: Regular diet with lactose-free Ensure TID. Unclear if he eats an altered consistency diet d/t his previous esophagectomy. Roommate, who has been addressed as a girlfriend, did not answer phone early in the AM after his admission. Given the appearance of the RLL infiltrate, aspiration pneumonitis/PNA cannot be ruled out, though he is + for COVID-19. History of Present Illness History of Present Illness Chief Complaint: Altered Mental Status Narrative: This is a 70 yo male with a PMH of alcohol abuse, pulmonary hypertension, CAD/CABG, Diastolic CHF, atrial fibrillation, pacemaker, HTN, esophagectomy. He initially presented to the [facility] ED on 04/10/21 with his ROS provided by his roommate; she endorsed that he had loose stools for several days, more fatigued and confused. His only response to the ED physician then was I don't know, I just don't feel good. No mention of fever, cough. W/U included COVID-19 testing which was positive. His oxygen saturations were normal. CT chest showed patchy opacity in R lung base with smaller bilateral opacities. No pulmonary emboli. + subacute posterior R 9th and 10th rib fxs. + thickened bladder wall which has been seen on previous scans. UA negative. He was administered mAb for Covid and discharged to home. He was then returned to the hospital via ambulance d/t continued altered mental status. He was not in any respiratory distress; RA O2 saturations normal. He was able to speak in a soft voice and did know his name and location. Most often he would not voice a response to questions. Once admitted he was found to be soiled with stool; some dried inside his clothing. Review of Systems Unobtainable due to mental status [facility] Medical History Adenocarcinoma of esophagus Afib Alcohol abuse CAD (coronary artery disease) Chronic obstructive lung disease Diabetes mellitus Difficulty reading Essential hypertension GERD (gastroesophageal reflux disease) GI bleed Hyperlipidemia Pancreatitis Solitary pulmonary nodule Tobacco abuse Tricuspid regurgitation Weight loss Surgical History cardiac cath Coronary Artery Bypass Gaft (CABG) EGD - IV Sedation Esophagectomy H/O colonoscopy (2007) H/O colonoscopy (04/14/18) dr geller, sigmoid diverticulosis, repeat 10 years History of esophagogastroduodenoscopy (EGD) (09/2017) History of hydrocelectomy History of right inguinal hernia repair repair times two sugrical flap of unhealing wound Family History Mother No problems noted. Father No problems noted. Social History Smoking/Tobacco Use Status: Current-Occasional Tobacco Type: cigarettes Smoking packs per day: 1 Smoking cigarettes per day: 20.0 Years smoked: 50 Smoking pack-years: 50.00 Smoking risk assessment performed?: Yes Alcohol Intake: current Alcohol Intake frequency: 0-2 drinks per day Alcohol type: beer Drug use: Never Substance use type: does not use What type of physical activity do you participate in: none Do you feel safe at home: Yes Do you feel safe in your relationship?: Yes Meds Allergies and Home Medications Allergies Allergy/AdvReac Type Severity Reaction Status Date / Time No Known Allergies Allergy Verified 04/10/21 13:06 Home Medications Medication Instructions Recorded Confirmed Type bupropion HCl (smoking deter) 150 mg PO BID 08/04/12 04/10/21 History folic acid 1 mg PO DAILY 08/04/12 04/10/21 History aspirin [Ecotrin Low Strength] 81 mg PO DAILY 04/09/13 04/10/21 History atorvastatin [Lipitor] 10 mg PO HS 01/25/15 04/10/21 History cholecalciferol (vitamin D3) 2,000 units PO DAILY 04/12/16 04/10/21 History nitroglycerin [Nitrostat] 0.4 mg SUBLINGUAL . DIRECTED PRN 04/12/16 04/10/21 History pantoprazole 40 mg PO DAILY 01/15/17 04/10/21 History lidocaine 5 % topical cream 1 applic TP QID 02/10/18 04/10/21 History multivitamin 1 cap PO DAILY 02/10/18 04/10/21 History sucralfate 100 mg/mL oral 10 ml PO QID 02/10/18 04/10/21 History suspension metoprolol tartrate 12.5 mg PO BID 04/12/18 04/10/21 History ipratropium 20 mcg-albuterol 100 2 puff IH TID 05/02/19 04/10/21 History mcg/actuation mist for inhalation Ensure Original See Rx Instructions .ROUTE .COMPLEX 01/15/20 04/10/21 History bumetanide 2 mg PO BID #20 tab 01/15/20 04/10/21 Rx gabapentin 300 mg PO TID 01/15/20 04/10/21 History hydrocodone-acetaminophen 1 tab PO TID 07/09/20 04/10/21 History spironolactone 25 mg PO DAILY 07/10/20 04/10/21 History amoxicillin-pot clavulanate 1 tab PO BID #14 tab 03/05/21 04/10/21 Rx [Augmentin] ferrous sulfate [FeroSul] 325 mg PO DAILY 03/05/21 04/10/21 History tamsulosin 0.4 mg PO QHS 03/05/21 04/10/21 History tiotropium bromide 18 mcg INHALATION DAILY 03/05/21 04/10/21 History Exam Narrative Exam Narrative: Cachectic appearing male lying supine. Const General: disheveled and frail appearing Nutritional Appearance: underweight Orientation: awake, oriented to person, oriented to place, not oriented to time and confused Limitations: altered mental status [facility] Head: normocephalic and atraumatic Eyes General: appearance normal, both eyes and all related structures Sclera: sclerae normal Chest Chest: pacemaker Chest/axillae images: 1. Ends of 2 ribs projecting anteriorly. Resp Effort & Inspection: normal respiratory effort Auscultation: clear to auscultation bilaterally and diminished lung sounds Cardio Rate: tachycardic Rhythm: other (Paced ventricular rhythm) GI Palpation: soft and tender other (+/- pain; doesn't acknowledge pain but seems to guard at times.) Auscultation: normal bowel sounds Back/Spine/Pelvis Back: No CVA tenderness and No back tenderness Skin General skin exam: no ecchymosis (No ecchymoses of chest/back) Rashes: no rashes Neuro General: moves all extremities Cognition: abnormal cognition Speech: other (Speaks in soft tone. One to 2 word sentences.) Extrem General: no calf tenderness Results Labs Result diagrams: 04/11/21 05:35 04/11/21 05:35 Last Vital Signs Temp 37.4 C 04/11/21 03:41 Pulse 100 H 04/11/21 03:41 Resp 19 04/11/21 03:41 BP 114/67 04/11/21 03:41 Pulse Ox 99 04/11/21 03:41
[2021-04-11] MEDS: Water,Injection,Sterile 10 ML VIAL ×3 (05:01→05:02)
[2021-04-11] MEDS: REMDESIVIR 200 MG in Normal Saline 250 ML 250 MG IVPB (05:03)
[2021-04-11 07:37] LABS: Abs Immature Grans 0.03 10^3/uL (0.0-0.06); Absolute Basophil Count 0.01 10^3/uL (0.0-0.2); Absolute Lymphocyte Count 0.88 10^3/uL (1.2-3.4); Absolute Monocyte Count 0.67 10^3/uL (0.1-0.8); Absolute Neutrophil Count 3.97 10^3/uL (1.2-6.7); Basophils % 0.2; HCT 31.4 % (40.0-50.0); HGB 9.8 g/dL (13.5-17.5); Immature Grans % 0.5; Lymphocytes % 15.8; MCH 30.9 pg (27.0-33.0); MCHC 31.2 % (32.0-36.0); MCV 99.1 fL (80-95); MPV 9.8 fL (8.0-11.0); Monocytes % 12.1; Neutrophils % 71.4; Nucleated RBC 0 %; Platelet Count 175 10^3/uL (130-400); RBC 3.17 10^6/uL (4.36-5.78); RDW 14.5 % (11.8-14.1); WBC 5.56 10^3/uL (4.4-10.8)
[2021-04-11 07:58] LABS: ALT 15 U/L (16-63); AST 18 U/L (15-37); Albumin 2.3 g/dL (3.4-5.0); Alkaline Phosphatase 91 U/L (46-116); BUN 58 mg/dL (7-18); Bilirubin, Total 0.4 mg/dL (0.2-1.0); CREATININE 0.9 mg/dL (0.70-1.30); Calcium 8.1 mg/dL (8.5-10.1); Chloride 110 mmol/L (98-107); Glucose 89 mg/dL (74-106); INR 1.3 (0.9-1.1); Potassium 3.8 mmol/L (3.5-5.1); Prothrombin Time 12.7 sec (9.3-11.0); Sodium 145 mmol/L (136-145); Total Protein 5.4 g/dL (6.4-8.2)
[2021-04-11 08:18] LABS: C-Reactive Protein 1.36 mg/dL (0.0-0.3)
[2021-04-11 08:26] LABS: Ammonia 22 umol/L (11-32)
[2021-04-11 08:32] LABS: D-Dimer 320 ng/mlFEU (<500)
--- NOTE | 2021-04-11 08:45 | W.SURGCON ---
Date of service: 04/11/21 Time of Service: 08:45 Assessment and Plan Assessment and plan (1) Anemia associated with acute blood loss: Status: Acute Assessment and plan: -Continue PRBC transfusions PRN to maintain Hb >8 -Unlikely candidate for EGD or Colonoscopy at [facility] due to acute COVID-19 pneumonia complicated by encephalopathy/altered mental status and cachexia -Would likely require prolonged intubation if sedation used -Continue to resuscitate until able to get ahold of POA for goals of care discussion -Obtain previous surgery records from OSH (2) Hematuria: Status: Acute (3) Failure to thrive: Status: Acute (4) Encephalopathy acute: Status: Acute (5) GI bleeding: Status: Chronic Assessment and plan: -Continue BID IV PPI and carafate -Check Q6 Hb/Hct (6) Malnutrition: Status: Acute (7) Rib fractures: Status: Acute Assessment and plan: -Not acute (8) COVID-19: Status: Acute History of Present Illness Narrative: 70 year old male currently admitted for COVID-19 pneumonia and altered mental status who developed melena, hematuria and hemoptysis overnight and was transferred to the ICU for increasing oxygen requirements. Patient has had little improvement in mental status and is not able to provide much of any history other than answering some questions with one word. He has a remote history of esophageal adenocarcimona and underwent esophagectomy at some point. Will attempt to obtain records from OSH's. Patient has had some dark stools noticed by nursing but has not had any further hemoptysis or hematuria since being in the ICU. Consults Consult date: 04/11/21 Requesting physician: Shakila Mayberry Review of Systems Unobtainable due to mental status [facility] Medical History Adenocarcinoma of esophagus Afib Alcohol abuse CAD (coronary artery disease) Chronic obstructive lung disease Diabetes mellitus Difficulty reading Essential hypertension GERD (gastroesophageal reflux disease) GI bleed Hyperlipidemia Pancreatitis Solitary pulmonary nodule Tobacco abuse Tricuspid regurgitation Weight loss Surgical History cardiac cath Coronary Artery Bypass Gaft (CABG) EGD - IV Sedation Esophagectomy H/O colonoscopy (2007) H/O colonoscopy (04/14/18) dr geller, sigmoid diverticulosis, repeat 10 years History of esophagogastroduodenoscopy (EGD) (09/2017) History of hydrocelectomy History of right inguinal hernia repair repair times two sugrical flap of unhealing wound Family History Mother No problems noted. Father No problems noted. Social History Smoking/Tobacco Use Status: Current-Occasional Tobacco Type: cigarettes Smoking packs per day: 1 Smoking cigarettes per day: 20.0 Years smoked: 50 Smoking pack-years: 50.00 Smoking risk assessment performed?: Yes Alcohol Intake: current Alcohol Intake frequency: 0-2 drinks per day Alcohol type: beer Drug use: Never Substance use type: does not use What type of physical activity do you participate in: none Do you feel safe at home: Yes Do you feel safe in your relationship?: Yes Exam Const General: comfortable, no acute distress, disheveled, ill appearing and lethargic Nutritional Appearance: cachectic Limitations: altered mental status Eyes Eyelids: eyelids normal Sclera: sclerae normal Chest Chest: normal inspection of the chest, no crepitus and no tenderness Resp Effort & Inspection: no audible wheezes, cough, no grunting, not labored, no respiratory distress, tachypneic and no use of accessory muscles GI Inspection: normal to inspection, non-distended and scaphoid Palpation: soft, no guarding, not rigid and nontender Percussion: normal to percussion Rectal Exam: visual inspection normal, heme positive stool and No hemorrhoids Male General Exam: Yes normal external exam Neuro General: oriented Patient Orientation: Person and Place, moves all extremities and no focal motor deficits Cognition: abnormal cognition Speech: speech normal Results Last Vital Signs Temp 98.2 F 04/11/21 07:45 Pulse 95 H 04/11/21 07:45 Resp 22 04/11/21 07:45 BP 100/63 04/11/21 07:45 Pulse Ox 96 04/11/21 07:45 Labs Result diagrams: 04/11/21 07:15 04/11/21 07:15 Labs: Laboratory Results - last 24 hr 04/11/21 04/11/21 04/11/21 07:15 07:15 07:15 WBC 5.56 D RBC 3.17 L Hgb 9.8 L D Hct 31.4 L D MCV 99.1 H MCH 30.9 MCHC 31.2 L RDW 14.5 H Plt Count 175 MPV 9.8 Immature Gran % 0.5 Neutrophils % 71.4 Lymphocytes % 15.8 Monocytes % 12.1 Eosinophils % 0.0 Basophils % 0.2 Nucleated RBC % 0 Absolute Neutrophils 3.97 Absolute Lymphocytes 0.88 L Absolute Monocytes 0.67 Absolute Eosinophils 0.00 Absolute Basophils 0.01 PT 12.7 H INR 1.3 H D-Dimer Sodium 145 Potassium 3.8 Chloride 110 H Carbon Dioxide 27.0 Anion Gap 8.0 BUN 58 H D Creatinine 0.9 Estimated GFR/1.73 m2 >= 60.00 Glucose 89 Calcium 8.1 L Total Bilirubin 0.4 AST 18 ALT 15 L Alkaline Phosphatase 91 Ammonia C-Reactive Protein Total Protein 5.4 L Albumin 2.3 L 04/11/21 04/11/21 04/11/21 07:15 07:15 08:00 WBC RBC Hgb Hct MCV MCH MCHC RDW Plt Count MPV Immature Gran % Neutrophils % Lymphocytes % Monocytes % Eosinophils % Basophils % Nucleated RBC % Absolute Neutrophils Absolute Lymphocytes Absolute Monocytes Absolute Eosinophils Absolute Basophils PT INR D-Dimer 320 Sodium Potassium Chloride Carbon Dioxide Anion Gap BUN Creatinine Estimated GFR/1.73 m2 Glucose Calcium Total Bilirubin AST ALT Alkaline Phosphatase Ammonia 22 C-Reactive Protein 1.36 H Total Protein Albumin
[2021-04-11 08:46] LABS: Ferritin 154 ng/mL (26-388)
[2021-04-11 08:55] LABS: Procalcitonin 0.1 ng/mL
--- NOTE | 2021-04-11 10:22 | NUR.NOTE ---
RN attempts cervantes catheter placement without success.Nursing Note:
--- NOTE | 2021-04-11 10:22 | NUR.NOTE ---
Verbal report taken from Med/plastic process technician at approximately 09:45. Patient to be typed and screened and crossmatched. RN speaks to lab who will use this morning's draw to perform type and screen.
--- NOTE | 2021-04-11 10:24 | NUR.NOTE ---
Lab calls and tells RN blood is ready.Nursing Note:
[2021-04-11] MEDS: Metoprolol 12.5 MG TAB PO (10:55)
[2021-04-11] MEDS: HYDROcodone 10/Acetaminophen 325 TAB PO ×3 (10:55→19:44)
[2021-04-11] MEDS: Gabapentin 300 MG CAP PO ×3 (10:56→19:45)
[2021-04-11] MEDS: Pantoprazole 40 MG VIAL 80 MG IVP ×2 (10:57→19:46)
--- NOTE | 2021-04-11 11:05 | PGE_ITS ---
Date of Service Date of service: 04/11/21 Time of Service: : Assessment and Plan Assessment and plan (1) GI bleeding: Status: Chronic Assessment and plan: The patient is s/p distal esophagogastrectomy for adenocarcinoma of the esophagus. In 2008, he had an EGD which was negative for a recurrent tumor but showed distal esophagitis. At this point, there is no radiographic evidence of cirrhosis or varices, though the patient does drink. His INR was 1.3 on check in the ED. Transferred to the ICU. NPO. Treat with IV protonic, carafate. Hold asa and chemical DVT ppx. General surgery is consulted. Transfuse. Monitor H/H Q6Hrs. (2) Anemia associated with acute blood loss: Status: Acute Assessment and plan: As above (3) COVID-19: Status: Acute Assessment and plan: The patient's O2 requirement today is 2L. Would continue remdesivir. I would like to start him on dexamethasone as well, given his O2 requirement, but GI bleeding is of concern - will discuss with general surgery first. Encephalopathy could be due to COVID-19. (4) Encephalopathy acute: Status: Acute Assessment and plan: As above. However, also an alcoholic. Add high dose thiamine. (5) Hematuria: Status: Acute Assessment and plan: UA negative for blood on 04/10/21 and since arrival to the ICU. I question whether reported hematuria on medical surgical floor was real. We will monitor bladder scans given thickened bladder on CT. (6) Bladder wall thickening: Status: Acute Assessment and plan: As above (7) Alcohol abuse: Status: Chronic Assessment and plan: Monitor for alcohol withdrawal with CIWA, prn benzos. The patient is not actively withdrawing from alcohol. (8) Failure to thrive: Status: Acute Assessment and plan: Consult palliative care (9) DVT prophylaxis: Status: Acute Assessment and plan: SCDs. Hold chemical DVT ppx due to GI bleeding (10) Discharge planning issues: Status: Acute Assessment and plan: We have not been able to contact the patient's DPOA, and the patient's roomate has yet to return our call. Full code in chart is a default order because the patient is unable to have this discussion. However, given his documented overall decline in his PCP's notes as well as h/o rib fractures, I feel that doing chest compressions for this patient would do more harm than good. If the patient were to code, I would consider declaration of futility. Palliative care is consulted. Total Critical Care Time 60 minutes. Subjective Subjective Interval history since last seen: Mr Kang was noted to have blood in stool and urine this am (both were described as cranberry colored by nursing). He was also noted to be coughing up blood. For this bleeding, he was transferred to the ICU. He was saturating 89% on RA and was placed on 2L of O2 overnight. He was lethargic, arousable for brief periods of time (1-2 seconds), mouthed that he was in the hospital, but not able to participate in the discussion of consent for blood transfusion or his code status. He did shake his head no when asked about pain. I have called the two numbers we have for his DPOA Chrissy Stewart ([phone], ) - both have been disconnected. His roommate is another person listed on the advanced directives paperwork - both myself and career center director have left voicemails, but no call back at this time. Since arrival to the ICU, no blood in urine has been noted - according to the nurse, urine has been clear in color. Shin placement was unsuccessful. No blood in stool has been observed here. Exam Narrative Exam Narrative: General: Frail elderly male, lethargic, A&Ox1-2, not answering most of my questions, not able to participate in a decision-making discussion HEENT: EOMI when briefly opening eyes, MMM Heart: irregularly irregular rhythm, no m/r/g Lungs: CTAB anteriorly; missing portions of inferior ribs L side Abdomen: soft, scaphoid, nontender, nondistended Extremities: +1 B ankle edema with wrinkling Objective Last Vital Signs Temp 36.5 C 04/11/21 10:21 Pulse 106 H 04/11/21 10:21 Resp 16 04/11/21 10:21 BP 117/63 04/11/21 10:21 Pulse Ox 98 04/11/21 10:21 Laboratory Results - last 24 hr 04/11/21 04/11/21 04/11/21 07:15 07:15 07:15 WBC 5.56 D RBC 3.17 L Hgb 9.8 L D Hct 31.4 L D MCV 99.1 H MCH 30.9 MCHC 31.2 L RDW 14.5 H Plt Count 175 MPV 9.8 Immature Gran % 0.5 Neutrophils % 71.4 Lymphocytes % 15.8 Monocytes % 12.1 Eosinophils % 0.0 Basophils % 0.2 Nucleated RBC % 0 Absolute Neutrophils 3.97 Absolute Lymphocytes 0.88 L Absolute Monocytes 0.67 Absolute Eosinophils 0.00 Absolute Basophils 0.01 PT 12.7 H INR 1.3 H D-Dimer Sodium 145 Potassium 3.8 Chloride 110 H Carbon Dioxide 27.0 Anion Gap 8.0 BUN 58 H D Creatinine 0.9 Estimated GFR/1.73 m2 >= 60.00 Glucose 89 Calcium 8.1 L Ferritin Total Bilirubin 0.4 AST 18 ALT 15 L Alkaline Phosphatase 91 Ammonia C-Reactive Protein Total Protein 5.4 L Albumin 2.3 L Procalcitonin Patient ABO/Rh Antibody Screen Crossmatch 04/11/21 04/11/21 04/11/21 07:15 07:15 07:15 WBC RBC Hgb Hct MCV MCH MCHC RDW Plt Count MPV Immature Gran % Neutrophils % Lymphocytes % Monocytes % Eosinophils % Basophils % Nucleated RBC % Absolute Neutrophils Absolute Lymphocytes Absolute Monocytes Absolute Eosinophils Absolute Basophils PT INR D-Dimer 320 Sodium Potassium Chloride Carbon Dioxide Anion Gap BUN Creatinine Estimated GFR/1.73 m2 Glucose Calcium Ferritin 154 Total Bilirubin AST ALT Alkaline Phosphatase Ammonia C-Reactive Protein 1.36 H Total Protein Albumin Procalcitonin 0.1 Patient ABO/Rh Antibody Screen Crossmatch 04/11/21 04/11/21 07:15 08:00 WBC RBC Hgb Hct MCV MCH MCHC RDW Plt Count MPV Immature Gran % Neutrophils % Lymphocytes % Monocytes % Eosinophils % Basophils % Nucleated RBC % Absolute Neutrophils Absolute Lymphocytes Absolute Monocytes Absolute Eosinophils Absolute Basophils PT INR D-Dimer Sodium Potassium Chloride Carbon Dioxide Anion Gap BUN Creatinine Estimated GFR/1.73 m2 Glucose Calcium Ferritin Total Bilirubin AST ALT Alkaline Phosphatase Ammonia 22 C-Reactive Protein Total Protein Albumin Procalcitonin Patient ABO/Rh O Positive Antibody Screen NEGATIVE Crossmatch See Detail
--- NOTE | 2021-04-11 13:13 | NUR.NOTE ---
Nursing Note: First unit of packed red blood cells fully infuses.
--- NOTE | 2021-04-11 13:57 | NUR.NOTE ---
Patient is cleaned of dried stool and new brief is applied.Nursing Note:
[2021-04-11] MEDS: THIAMINE 500 MG in Normal Saline 100 ML 200 MG IVPB ×2 (14:00→19:47)
--- NOTE | 2021-04-11 14:07 | PDOC.CMIN ---
- If Service Date Differs Date of service: 04/11/21 Time of Service: 14:07 Care Management Initial Assess REASON FOR HOSPITALIZATION:: AMS, COVID-19 w/pneumonia PAST MEDICAL HISTORY/PAST SURGICAL HISTORY:: Adenocarcinoma of esophagus. Afib. Alcohol abuse. CAD (coronary artery disease). Chronic obstructive lung disease. Diabetes mellitus. Difficulty reading. Essential hypertension. GERD (gastroesophageal reflux disease). GI bleed. Hyperlipidemia. Pancreatitis. Solitary pulmonary nodule. Tobacco abuse. Tricuspid regurgitation. Weight loss. cardiac cath. Coronary Artery Bypass [place] (CABG). EGD - IV Sedation. Esophagectomy. H/O colonoscopy (2007). H/O colonoscopy (04/14/18). dr geller, sigmoid diverticulosis, repeat 10 years. History of esophagogastroduodenoscopy (EGD) (09/2017). History of hydrocelectomy. History of right inguinal hernia repair. repair times two. surgical flap of unhealing wound PREVIOUS FUNCTIONAL STATUS/SOCIAL/FAMILY SUPPORTS:: Nain resides in [facility] with his roomate, Lyudmila. He is independent at baseline in the community with ongoing medical issues including CHF and COPD. CURRENT FUNCTIONAL STATUS:: Ilia was urgently transferred to the ICU this morning, he is unable to communicate effectively at this time. Outreach to agents on AD and contact numbers on chart, unsuccessful. This card writer hand and MD called roomtenzin Coreas, who is listed under others in AD, messages left on voicemail, no contact as of this documentation. Initial assessment gathered from previous assessment completed earlier this year, in July. ADVANCE DIRECTIVES:: On file, Chrissy Stewart (sister) as agent, Patt Cruz as alternate, Lyudmila Bellamy as other. Has patient been provided with info about the portal/API?: No Did the patient sign up for the portal?: No CODE STATUS:: Full Code INSURANCE COVERAGE / FINANCIAL ISSUES:: Medicare. Medicaid CURRENT HOME/COMMUNITY SERVICES/EQUIPMENT:: Ilia was previously agreeable to home health nursing and a referral to [place] [facility] Aging for Meals on Wheels and Options counseling and Community based CM, unable to attain current status of service supports. PRIMARY CARE PHYSICIAN:: Silvina Perdue POTENTIAL DISCHARGE NEEDS:: Palliative consult, surgical consult, ETOH withdrawal anticipated. PATIENT/FAMILY EDUCATION NEEDS:: Review discharge instructions, discuss Ask Me Three. PLAN:: Ilia is currently encephalopathic per MD. CM will continue to follow and support identified needs as appropriate. Current focus is to connect with natural supports and medical agents to determine course of treatment.
[2021-04-11] MEDS: Ipratropium/Albuterol 4 GM 120 PUFF INH IH ×2 (14:26→20:15)
[2021-04-11] MEDS: Sucralfate 1 GM TAB PO ×2 (16:36→23:02)
--- NOTE | 2021-04-11 17:13 | NUR.NOTE ---
Urine drug screen sent to lab.Nursing Note:
[2021-04-11 17:48] LABS: *AMPHETAMINES SCREEN URINE Negative (Negative); *BARBITURATES SCREEN URINE Negative (Negative); *BENZODIAZEPINES SCREEN URINE Negative (Negative); Cannabinoids THC Positive (Negative); Cocaine Screen,Urine Negative (Negative); METHADONE URINE SCREEN Negative (Negative); OPIATES URINE SCREEN Positive (Negative)
[2021-04-11 17:50] LABS: Tricyclic Antidepressants Negative (Negative)
[2021-04-11 18:50] LABS: HCT 31.7 % (40.0-50.0); HGB 10.7 g/dL (13.5-17.5)
[2021-04-11] MEDS: Normal Saline Flush 10 ML SYR IVP (19:47)
--- NOTE | 2021-04-11 20:55 | NUR.NOTE ---
Nursing Note: Per phone call from Dr. Perdue 04/11/21 at 2000: Pt has on file at office and 2018 Advanced Directive with the following information: Health Care Agent: Chrissy Erickson, [place] [phone] - [place] [phone] - cell Back up agent: Patt Rogers, [place] [phone]
[2021-04-11] MEDS: Atorvastatin 10 MG TAB PO (23:02)
[2021-04-11] MEDS: Tamsulosin 0.4 MG CAPCR PO (23:02)
[2021-04-12] VITALS (73 sets, daily range): BP systolic 76–108; BP diastolic 43–75; PULSE 60–104; RESP 12–22; TEMP 36–36.2; O2SAT 74–100
[2021-04-12 00:39] LABS: HCT 30.7 % (40.0-50.0); HGB 10.2 g/dL (13.5-17.5)
[2021-04-12] MEDS: Normal Saline 1,000 ML 125 ML IV ×2 (00:43→06:19)
[2021-04-12] MEDS: THIAMINE 500 MG in Normal Saline 100 ML 200 MG IVPB ×3 (03:22→19:53)
[2021-04-12 06:59] LABS: Abs Immature Grans 0.03 10^3/uL (0.0-0.06); Absolute Basophil Count 0.01 10^3/uL (0.0-0.2); Absolute Lymphocyte Count 0.65 10^3/uL (1.2-3.4); Absolute Monocyte Count 0.34 10^3/uL (0.1-0.8); Absolute Neutrophil Count 6.39 10^3/uL (1.2-6.7); Basophils % 0.1; HCT 31.9 % (40.0-50.0); HGB 10.5 g/dL (13.5-17.5); Immature Grans % 0.4; Lymphocytes % 8.8; MCH 32.1 pg (27.0-33.0); MCHC 32.9 % (32.0-36.0); MCV 97.6 fL (80-95); MPV 10.2 fL (8.0-11.0); Monocytes % 4.6; Neutrophils % 86.1; Nucleated RBC 0 %; Platelet Count 119 10^3/uL (130-400); RBC 3.27 10^6/uL (4.36-5.78); RDW 17.3 % (11.8-14.1); RDW-SD 58.3 fL; WBC 7.42 10^3/uL (4.4-10.8)
[2021-04-12 07:24] LABS: ALT 9 U/L (16-63); AST 20 U/L (15-37); Albumin 2.2 g/dL (3.4-5.0); Alkaline Phosphatase 81 U/L (46-116); Anion Gap 9.7 mmol/L (3-11); BUN 40 mg/dL (7-18); Bilirubin, Direct 0.3 mg/dL (0.0-0.2); Bilirubin, Total 0.8 mg/dL (0.2-1.0); C-Reactive Protein 2.06 mg/dL (0.0-0.3); CO2 25.3 mmol/L (21.0-32.0); CREATININE 0.8 mg/dL (0.70-1.30); Calcium 7.7 mg/dL (8.5-10.1); Chloride 117 mmol/L (98-107); Glucose 82 mg/dL (74-106); Magnesium 1.7 mg/dL (1.8-2.4); Sodium 152 mmol/L (136-145); Total Protein 5.3 g/dL (6.4-8.2)
[2021-04-12 08:13] LABS: D-Dimer 387 ng/mlFEU (<500); Ferritin 231 ng/mL (26-388)
--- NOTE | 2021-04-12 08:33 | W.PM.PROGNOT ---
Date of Service Date of service: 04/12/21 Time of Service: :22 Assessment and Plan Assessment and plan (1) GI bleeding: Status: Chronic Assessment and plan: The patient is s/p distal esophagogastrectomy for adenocarcinoma of the esophagus circa 1999 at [facility]. I was not able to access these records electronically. In 2008, he had an EGD which was negative for a recurrent tumor but showed distal esophagitis. In 2018, he had an EGD which showed two punctate bleeding gastric lesions. This was discussed with general surgery (Dr Lopez). Trial clears. No plans for EGD at this time unless bleeding recurs clinically. The patient does agree to transfer to [facility] or a different facility if needed for that. Continue IV protonix, carafate. H/H stable - continue to trend. Hold asa and chemical DVT ppx. (2) Anemia associated with acute blood loss: Status: Acute Assessment and plan: As above (3) COVID-19: Status: Acute Assessment and plan: The patient's O2 requirement today is RA, but CRP is going up. Would continue remdesivir. Holding off on steroids at this time. Encephalopathy could be due to COVID-19. (4) Encephalopathy acute: Status: Acute Assessment and plan: As above. EtOH as well as sedating medications (gabapentin, hydrocodone) could also have been contributing. Much improved today and I do feel that he understands what's going on with him (though I cannot verify right now if he is able to retain this information). Continue high dose thiamine. Mental status good enough to try PO. (5) Hematuria: Status: Ruled-out Assessment and plan: UA negative for blood on 04/10/21 and since arrival to the ICU. I question whether reported hematuria on medical surgical floor was real. (6) Bladder wall thickening: Status: Acute Assessment and plan: As above No evidence of urinary retention, per ICU nursing. (7) Alcohol abuse: Status: Chronic Assessment and plan: Monitor for alcohol withdrawal with CIWA, prn benzos. Given the developing tremors, I fear the patient might be starting to withdraw from EtOH. Replete magnesium, potassium. Check phos. (8) Failure to thrive: Status: Acute Assessment and plan: Consult palliative care (9) DVT prophylaxis: Status: Acute Assessment and plan: SCDs. Hold chemical DVT ppx due to GI bleeding (10) Discharge planning issues: Status: Acute Assessment and plan: The patient confirmed full code status in conversation to me today. If transfer to a tertiary care facility is required, he is agreeable. Lyudmila Bellamy is his roommate and currently acting as DPOA because we have not been able to reach the originally designated DPOA. Total Critical Care Time 35 minutes. Subjective Subjective Interval history since last seen: Mr Kang was drowsy this morning but is now more alert. He reports that at some point he had upper abdominal pain, but he cannot tell me when that was and denies it now. Denies dizziness, chest pain, shortness of breath, nausea. He is interested in having something to eat and in chocolate milk. He states that his cancer surgery was in 1999 or 2000 at [facility]. He can't remember exactly. He would agree to go back there if he needed to. He thinks he would want to have everything done (i.e. full code). I explained his condition to him and I do think that, at the time of my conversation with him, he had an understanding of having a GI bleed and COVID-19. However, he was starting to get tremulous. His DPOA still has not been able to be reached. Lyudmila Bellamy, his alternative DPOA, did call back last night indicating that he drinks more than 2 drinks per day and also that he was having bleeding at home. The patient denies h/o EtOH withdrawal. 1 small dark bloody BM last night. Hgb 10.5 this am. O2 requirement: was on 1L of O2, now on room air. CIWA 3. Exam Narrative Exam Narrative: General: Frail elderly male, lethargic, A&Ox2-3 (knows month and date but not the year; does not know the president), more alert, does ask questions, seems to have a little difficulty grasping clinical information but does understand it. Follows commands. HEENT: EOMI, MMM Heart: irregularly irregular rhythm, no m/r/g Lungs: CTAB but coughing, missing portions of inferior ribs L side Abdomen: soft, scaphoid, nontender, nondistended Extremities: +1 B ankle edema with wrinkling Objective Last Vital Signs Temp 36.2 C L 04/12/21 04:15 Pulse 82 04/12/21 06:01 Resp 16 04/12/21 06:01 BP 98/69 L 04/12/21 06:01 Pulse Ox 93 04/12/21 04:01 Laboratory Results - last 24 hr 04/11/21 04/11/21 04/11/21 07:15 12:00 17:27 WBC RBC Hgb Cancelled Hct Cancelled MCV MCH MCHC RDW Plt Count MPV Immature Gran % Neutrophils % Lymphocytes % Monocytes % Eosinophils % Basophils % Nucleated RBC % Absolute Neutrophils Absolute Lymphocytes Absolute Monocytes Absolute Eosinophils Absolute Basophils D-Dimer Sodium Potassium Chloride Carbon Dioxide Anion Gap BUN Creatinine Estimated GFR/1.73 m2 Glucose Calcium Magnesium Ferritin Total Bilirubin Conjugated Bilirubin AST ALT Alkaline Phosphatase C-Reactive Protein Total Protein Albumin Urine Opiates Screen Positive A Urine Methadone Screen Negative Ur Barbiturates Screen Negative Ur Tricyclics Screen Negative Ur Amphetamines Screen Negative U Benzodiazepines Scrn Negative Urine Cocaine Screen Negative Ur THC Screen Positive A Patient ABO/Rh O Positive Antibody Screen NEGATIVE Crossmatch See Detail 04/11/21 04/12/21 04/12/21 18:32 00:30 06:00 WBC RBC Hgb 10.7 L 10.2 L Hct 31.7 L 30.7 L MCV MCH MCHC RDW Plt Count MPV Immature Gran % Neutrophils % Lymphocytes % Monocytes % Eosinophils % Basophils % Nucleated RBC % Absolute Neutrophils Absolute Lymphocytes Absolute Monocytes Absolute Eosinophils Absolute Basophils D-Dimer Sodium 152 H Potassium 3.0 L Chloride 117 H Carbon Dioxide 25.3 Anion Gap 9.7 BUN 40 H D Creatinine 0.8 Estimated GFR/1.73 m2 >= 60.00 Glucose 82 Calcium 7.7 L Magnesium 1.7 L Ferritin 231 Total Bilirubin 0.8 Conjugated Bilirubin 0.3 H AST 20 ALT 9 L Alkaline Phosphatase 81 C-Reactive Protein 2.06 H Total Protein 5.3 L Albumin 2.2 L Urine Opiates Screen Urine Methadone Screen Ur Barbiturates Screen Ur Tricyclics Screen Ur Amphetamines Screen U Benzodiazepines Scrn Urine Cocaine Screen Ur THC Screen Patient ABO/Rh Antibody Screen Crossmatch 04/12/21 04/12/21 06:00 06:00 WBC 7.42 D RBC 3.27 L Hgb 10.5 L Hct 31.9 L MCV 97.6 H MCH 32.1 MCHC 32.9 RDW 17.3 H Plt Count 119 L MPV 10.2 Immature Gran % 0.4 Neutrophils % 86.1 Lymphocytes % 8.8 Monocytes % 4.6 Eosinophils % 0.0 Basophils % 0.1 Nucleated RBC % 0 Absolute Neutrophils 6.39 Absolute Lymphocytes 0.65 L Absolute Monocytes 0.34 Absolute Eosinophils 0.00 Absolute Basophils 0.01 D-Dimer 387 Sodium Potassium Chloride Carbon Dioxide Anion Gap BUN Creatinine Estimated GFR/1.73 m2 Glucose Calcium Magnesium Ferritin Total Bilirubin Conjugated Bilirubin AST ALT Alkaline Phosphatase C-Reactive Protein Total Protein Albumin Urine Opiates Screen Urine Methadone Screen Ur Barbiturates Screen Ur Tricyclics Screen Ur Amphetamines Screen U Benzodiazepines Scrn Urine Cocaine Screen Ur THC Screen Patient ABO/Rh Antibody Screen Crossmatch
[2021-04-12] MEDS: Ipratropium/Albuterol 4 GM 120 PUFF INH IH ×3 (09:55→20:15)
[2021-04-12] MEDS: Cholecalciferol (Vitamin D3) 1,000 UNIT TAB 2000 UNITS PO (09:55)
[2021-04-12] MEDS: Gabapentin 100 MG CAP PO ×3 (09:55→19:53)
[2021-04-12] MEDS: Folic Acid 1 MG TAB PO (09:55)
[2021-04-12] MEDS: Multivitamin w/Minerals TAB 1 TAB PO (09:56)
[2021-04-12] MEDS: Pantoprazole 40 MG VIAL 80 MG IVP ×2 (09:57→19:53)
[2021-04-12] MEDS: POTASSIUM CHLORIDE 20 MEQ/100 ML BAG 50 MEQ IVPB ×3 (09:58→17:17)
[2021-04-12] MEDS: Sucralfate 1 GM TAB PO ×4 (09:58→22:30)
[2021-04-12] MEDS: DEXTROSE 5%-WATER 1,000 ML 75 ML IV (10:59)
--- NOTE | 2021-04-12 11:03 | PGE_ITS ---
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 No plans for EGD at this time unless bleeding recurs clinically. -Continue IV protonix and carafate. Qualifiers: GI bleed type/associated pathology: unspecified gastrointestinal hemorrhage type Qualified Code(s): K92.2 - Gastrointestinal hemorrhage, unspecified (2) Anemia associated with acute blood loss: Status: Acute (3) Failure to thrive: Status: Acute Qualifiers: Failure to thrive age range: in adult Qualified Code(s): R62.7 - Adult failure to thrive (4) Encephalopathy acute: Status: Acute Assessment and plan: -Improving (5) Malnutrition: Status: Acute Qualifiers: Malnutrition type: protein-calorie malnutrition Protein-calorie malnutrition severity: severe Qualified Code(s): E43 - Unspecified severe protein-calorie malnutrition (6) Rib fractures: Status: Acute Assessment and plan: -Chronic, not new. Also s/p left rib resection 2/2 osteomyelitis. Qualifiers: Encounter type: sequela Fracture type: closed Laterality: bilateral Qualified Code(s): S22.43XS - Multiple fractures of ribs, bilateral, sequela (7) COVID-19: Status: Acute Subjective Subjective Patient reports: no new complaints, feels better and pain is less; denies nausea and vomiting Exam Const General: cooperative, comfortable, no acute distress and frail appearing Nutritional Appearance: cachectic and malnourished Resp Effort & Inspection: normal respiratory effort, no audible wheezes, no grunting, not labored and no respiratory distress Cardio Rate: regular rate Rhythm: regular rhythm Skin General skin exam: no rashes or lesions noted Trauma: no lacerations or abrasions Neuro General: patient alert, patient awake and oriented Patient Orientation: Person and Place Speech: speech normal Objective Last Vital Signs Temp 97.2 F L 04/12/21 04:15 Pulse 82 04/12/21 06:01 Resp 16 11/07/21 06:01 BP 98/69 L 04/12/21 06:01 Pulse Ox 93 04/12/21 04:01 Laboratory Results - last 24 hr 04/11/21 04/11/21 04/11/21 07:15 12:00 17:27 WBC RBC Hgb Cancelled Hct Cancelled MCV MCH MCHC RDW Plt Count MPV Immature Gran % Neutrophils % Lymphocytes % Monocytes % Eosinophils % Basophils % Nucleated RBC % Absolute Neutrophils Absolute Lymphocytes Absolute Monocytes Absolute Eosinophils Absolute Basophils D-Dimer Sodium Potassium Chloride Carbon Dioxide Anion Gap BUN Creatinine Estimated GFR/1.73 m2 Glucose Calcium Magnesium Ferritin Total Bilirubin Conjugated Bilirubin AST ALT Alkaline Phosphatase C-Reactive Protein Total Protein Albumin Urine Opiates Screen Positive A Urine Methadone Screen Negative Ur Barbiturates Screen Negative Ur Tricyclics Screen Negative Ur Amphetamines Screen Negative U Benzodiazepines Scrn Negative Urine Cocaine Screen Negative Ur THC Screen Positive A Patient ABO/Rh O Positive Antibody Screen NEGATIVE Crossmatch See Detail 04/11/21 04/12/21 04/12/21 18:32 00:30 06:00 WBC RBC Hgb 10.7 L 10.2 L Hct 31.7 L 30.7 L MCV MCH MCHC RDW Plt Count MPV Immature Gran % Neutrophils % Lymphocytes % Monocytes % Eosinophils % Basophils % Nucleated RBC % Absolute Neutrophils Absolute Lymphocytes Absolute Monocytes Absolute Eosinophils Absolute Basophils D-Dimer Sodium 152 H Potassium 3.0 L Chloride 117 H Carbon Dioxide 25.3 Anion Gap 9.7 BUN 40 H D Creatinine 0.8 Estimated GFR/1.73 m2 >= 60.00 Glucose 82 Calcium 7.7 L Magnesium 1.7 L Ferritin 231 Total Bilirubin 0.8 Conjugated Bilirubin 0.3 H AST 20 ALT 9 L Alkaline Phosphatase 81 C-Reactive Protein 2.06 H Total Protein 5.3 L Albumin 2.2 L Urine Opiates Screen Urine Methadone Screen Ur Barbiturates Screen Ur Tricyclics Screen Ur Amphetamines Screen U Benzodiazepines Scrn Urine Cocaine Screen Ur THC Screen Patient ABO/Rh Antibody Screen Crossmatch 04/12/21 04/12/21 06:00 06:00 WBC 7.42 D RBC 3.27 L Hgb 10.5 L Hct 31.9 L MCV 97.6 H MCH 32.1 MCHC 32.9 RDW 17.3 H Plt Count 119 L MPV 10.2 Immature Gran % 0.4 Neutrophils % 86.1 Lymphocytes % 8.8 Monocytes % 4.6 Eosinophils % 0.0 Basophils % 0.1 Nucleated RBC % 0 Absolute Neutrophils 6.39 Absolute Lymphocytes 0.65 L Absolute Monocytes 0.34 Absolute Eosinophils 0.00 Absolute Basophils 0.01 D-Dimer 387 Sodium Potassium Chloride Carbon Dioxide Anion Gap BUN Creatinine Estimated GFR/1.73 m2 Glucose Calcium Magnesium Ferritin Total Bilirubin Conjugated Bilirubin AST ALT Alkaline Phosphatase C-Reactive Protein Total Protein Albumin Urine Opiates Screen Urine Methadone Screen Ur Barbiturates Screen Ur Tricyclics Screen Ur Amphetamines Screen U Benzodiazepines Scrn Urine Cocaine Screen Ur THC Screen Patient ABO/Rh Antibody Screen Crossmatch
[2021-04-12] MEDS: MAGNESIUM SULFATE 2 GM/50 ML BAG IVPB (11:23)
[2021-04-12 14:44] LABS: HCT 28.9 % (40.0-50.0); HGB 9.7 g/dL (13.5-17.5)
[2021-04-12 14:52] LABS: Anion Gap 7.5 mmol/L (3-11); CO2 26.5 mmol/L (21.0-32.0); CREATININE 0.8 mg/dL (0.70-1.30); Calcium 7.7 mg/dL (8.5-10.1); Chloride 114 mmol/L (98-107); Glucose 123 mg/dL (74-106); Sodium 148 mmol/L (136-145)
[2021-04-12 15:01] LABS: BUN 32 mg/dL (7-18)
[2021-04-12] MEDS: Nicotine 21 MG/24 HR PATCH TD (16:51)
[2021-04-12] MEDS: Normal Saline Flush 10 ML SYR IVP (19:53)
[2021-04-12] MEDS: Atorvastatin 10 MG TAB PO (22:30)
[2021-04-12] MEDS: POTASSIUM CHLORIDE 20 MEQ/100 ML BAG 15 MEQ IVPB (23:38)
[2021-04-13] VITALS (137 sets, daily range): BP systolic 81–103; BP diastolic 48–71; PULSE 62–96; RESP 13–27; TEMP 36.1–36.5; O2SAT 93–100
[2021-04-13] MEDS: DEXTROSE 5%-WATER 1,000 ML 75 ML IV (00:19)
[2021-04-13] MEDS: THIAMINE 500 MG in Normal Saline 100 ML 200 MG IVPB ×2 (03:32→11:44)
[2021-04-13 07:24] LABS: Abs Immature Grans 0.03 10^3/uL (0.0-0.06); Absolute Basophil Count 0.01 10^3/uL (0.0-0.2); Absolute Eosinophil Count 0.05 10^3/uL (0.0-0.7); Absolute Lymphocyte Count 0.94 10^3/uL (1.2-3.4); Absolute Monocyte Count 0.28 10^3/uL (0.1-0.8); Absolute Neutrophil Count 5.82 10^3/uL (1.2-6.7); Basophils % 0.1; Eosinophils % 0.7; HCT 26.5 % (40.0-50.0); HGB 8.9 g/dL (13.5-17.5); Immature Grans % 0.4; Lymphocytes % 13.2; MCH 32.2 pg (27.0-33.0); MCHC 33.6 % (32.0-36.0); MPV 10.5 fL (8.0-11.0); Monocytes % 3.9; Neutrophils % 81.7; Nucleated RBC 0 %; Platelet Count 109 10^3/uL (130-400); RBC 2.76 10^6/uL (4.36-5.78); RDW 16.7 % (11.8-14.1); RDW-SD 56.6 fL; WBC 7.13 10^3/uL (4.4-10.8)
[2021-04-13 07:27] LABS: INR 1.3 (0.9-1.1); Prothrombin Time 13.1 sec (9.3-11.0)
[2021-04-13 07:56] LABS: D-Dimer 349 ng/mlFEU (<500)
[2021-04-13 08:11] LABS: Vitamin D 25 Total 116.4 ng/mL (30-100)
[2021-04-13 08:14] LABS: PHOSPHORUS < 2.0 mg/dL (2.6-4.7)
[2021-04-13 08:15] LABS: ALT 9 U/L (16-63); AST 20 U/L (15-37); Albumin 1.8 g/dL (3.4-5.0); Alkaline Phosphatase 69 U/L (46-116); BUN 21 mg/dL (7-18); Bilirubin, Direct 0.4 mg/dL (0.0-0.2); Bilirubin, Total 0.7 mg/dL (0.2-1.0); CREATININE 0.7 mg/dL (0.70-1.30); Calcium 7.5 mg/dL (8.5-10.1); Chloride 110 mmol/L (98-107); Glucose 83 mg/dL (74-106); Potassium 3.1 mmol/L (3.5-5.1); Sodium 140 mmol/L (136-145); Total Protein 4.5 g/dL (6.4-8.2)
[2021-04-13 08:17] LABS: C-Reactive Protein 4.55 mg/dL (0.0-0.3); Magnesium 1.9 mg/dL (1.8-2.4)
--- NOTE | 2021-04-13 08:20 | PGE_ITS ---
Date of Service Date of service: 04/13/21 Time of Service: 11:14 Assessment and Plan Assessment and plan (1) GI bleeding: Status: Chronic Assessment and plan: The patient is [place]a [place] [facility] [place] I was not able to access these records electronically. In 2008, he had an EGD which was negative for a recurrent tumor but showed distal esophagitis. In 2018, he had an EGD which showed two punctate bleeding gastric lesions. More epigastric pain with clears overnight and concern for ongoing bleeding given drifting H/H. Make NPO. To receive 1 unit pRBCs. Awaiting call back [place] [facility] [place] [facility] [id number] [place] for upper endoscopy. Continue IV protonix, carafate. Hold asa and chemical DVT ppx. Qualifiers: GI bleed type/associated pathology: unspecified gastrointestinal hemorrhage type Qualified Code(s): K92.2 - Gastrointestinal hemorrhage, unspecified (2) Anemia associated with acute blood loss: Status: Acute Assessment and plan: As above (3) COVID-19: Status: Acute Assessment and plan: The patient's O2 requirement today is RA. CRP is going up. Continue remdesivir. Holding off on steroids at this time due to GI bleeding. Encephalopathy could be due to COVID-19. (4) Encephalopathy acute: Status: Acute Assessment and plan: As above. EtOH as well as sedating medications (gabapentin, hydrocodone) could also have been contributing. About the same as yesterday (?is this his baseline). Remembered my conversation with him from yesterday that, if unable to get [place] [facility] [place] we [facility] try [facility]. Continue high dose thiamine. (5) Hematuria: Status: Ruled-out Assessment and plan: UA negative for blood on 04/10/21 and since arrival to the ICU. I question whether reported hematuria on medical surgical floor was real. (6) Bladder wall thickening: Status: Acute Assessment and plan: As above No evidence of urinary retention, per ICU nursing. (7) Alcohol abuse: Status: Chronic Assessment and plan: Monitor for alcohol withdrawal with CIWA, prn benzos. CIWA 3. Replete potassium and phos. (8) Failure to thrive: Status: Acute Assessment and plan: Consult palliative care Qualifiers: Failure to thrive age range: in adult Qualified Code(s): R62.7 - Adult failure to thrive (9) DVT prophylaxis: Status: Acute Assessment and plan: SCDs. Hold chemical DVT ppx due to GI bleeding (10) Discharge planning issues: Status: Acute Assessment and plan: Full code Awaiting call back from [facility] re possible EGD. Lyudmila Bellamy is his roommate and currently acting as DPOA because we have not been able to reach the originally designated DPOA. Discussed with Dr Ayala Total Critical Care Time 45 minutes. Subjective Subjective Interval history since last seen: Mr Kang reports epigastric pain which comes and goes this morning. I think I'm bleeding. Denies dizziness, chest pain, shortness of breath, nausea. Was on clear liquid diet overnight and at breakfast time. No bloody stools or hematemesis. One BP was recorded to be 76/44 overnight, remainder in low 80s. This am, SBPs have been consistently in the 90s and MAPs >65. To receive 1 unit pRBCs this am. Exam Narrative Exam Narrative: General: Frail elderly male, lethargic, A&Ox2, slow to respond to questions, but volunteers to me that if not [facility], then I go to [place]. He understands that I am trying to arrange a transfer to endoscopy and agrees to it. HEENT: EOMI, MMM Heart: irregularly irregular rhythm, no m/r/g Lungs: quiet rhonchi B. Abdomen: soft, scaphoid, nontender, nondistended Extremities: trace B ankle edema with wrinkling Objective Last Vital Signs Temp 36.4 C L 04/13/21 04:30 Pulse 63 04/13/21 06:37 Resp 24 04/13/21 06:37 BP 98/51 L 04/13/21 06:37 Pulse Ox 94 04/13/21 06:01 Laboratory Results - last 24 hr 04/12/21 04/12/21 04/12/21 06:00 06:00 14:15 WBC RBC Hgb Hct MCV MCH MCHC RDW Plt Count MPV Immature Gran % Neutrophils % Lymphocytes % Monocytes % Eosinophils % Basophils % Nucleated RBC % Absolute Neutrophils Absolute Lymphocytes Absolute Monocytes Absolute Eosinophils Absolute Basophils PT INR D-Dimer Sodium 148 H Potassium 3.0 L Chloride 114 H Carbon Dioxide 26.5 Anion Gap 7.5 BUN 32 H Creatinine 0.8 Estimated GFR/1.73 m2 >= 60.00 Glucose 123 H Calcium 7.7 L Phosphorus Magnesium Ferritin 231 Total Bilirubin Conjugated Bilirubin AST ALT Alkaline Phosphatase C-Reactive Protein Total Protein Albumin 25-OH Vitamin D Total 116.4 H* 04/12/21 04/13/21 04/13/21 14:15 06:30 06:30 WBC RBC Hgb 9.7 L Hct 28.9 L MCV MCH MCHC RDW Plt Count MPV Immature Gran % Neutrophils % Lymphocytes % Monocytes % Eosinophils % Basophils % Nucleated RBC % Absolute Neutrophils Absolute Lymphocytes Absolute Monocytes Absolute Eosinophils Absolute Basophils PT 13.1 H INR 1.3 H D-Dimer 349 Sodium Potassium Chloride Carbon Dioxide Anion Gap BUN Creatinine Estimated GFR/1.73 m2 Glucose Calcium Phosphorus Magnesium 1.9 Ferritin Total Bilirubin Conjugated Bilirubin AST ALT Alkaline Phosphatase C-Reactive Protein 4.55 H Total Protein Albumin 25-OH Vitamin D Total 04/13/21 04/13/21 04/13/21 06:30 06:30 06:30 WBC 7.13 RBC 2.76 L Hgb 8.9 L Hct 26.5 L MCV 96.0 H MCH 32.2 MCHC 33.6 RDW 16.7 H Plt Count 109 L MPV 10.5 Immature Gran % 0.4 Neutrophils % 81.7 Lymphocytes % 13.2 Monocytes % 3.9 Eosinophils % 0.7 Basophils % 0.1 Nucleated RBC % 0 Absolute Neutrophils 5.82 Absolute Lymphocytes 0.94 L Absolute Monocytes 0.28 Absolute Eosinophils 0.05 Absolute Basophils 0.01 PT INR D-Dimer Sodium 140 Potassium 3.1 L Chloride 110 H Carbon Dioxide 23.0 Anion Gap 7.0 BUN 21 H D Creatinine 0.7 Estimated GFR/1.73 m2 >= 60.00 Glucose 83 Calcium 7.5 L Phosphorus < 2.0 L Magnesium Ferritin Total Bilirubin 0.7 Conjugated Bilirubin 0.4 H AST 20 ALT 9 L Alkaline Phosphatase 69 C-Reactive Protein Total Protein 4.5 L Albumin 1.8 L 25-OH Vitamin D Total
[2021-04-13] MEDS: Folic Acid 1 MG TAB PO (08:38)
[2021-04-13] MEDS: Ipratropium/Albuterol 4 GM 120 PUFF INH IH ×2 (08:38→14:53)
[2021-04-13] MEDS: Multivitamin w/Minerals TAB 1 TAB PO (08:38)
[2021-04-13] MEDS: Gabapentin 100 MG CAP PO ×2 (08:38→14:52)
[2021-04-13] MEDS: Pantoprazole 40 MG VIAL 80 MG IVP (08:38)
[2021-04-13] MEDS: Sucralfate 1 GM TAB PO ×2 (08:38→11:44)
[2021-04-13] MEDS: Normal Saline Flush 10 ML SYR IVP (08:39)
[2021-04-13] MEDS: POTASSIUM CHLORIDE 20 MEQ/100 ML BAG 50 MEQ IVPB ×3 (08:44→14:53)
[2021-04-13 08:59] LABS: Ferritin 203 ng/mL (26-388)
--- NOTE | 2021-04-13 10:01 | CMPROGNOTE_ITS ---
- If Service Date Differs Date of service: 04/13/21 Time of Service: 10:01 Care Management Progress Note S/O:Ilia remains in ICU and is being treated for a GI Bleed and Covid infection. CM was unable to meet with him due to the Covid isolation and was unable to speak to him on the phone . Ilia's oxygen saturation is 98 to 99% on room air and he has denied SOB, chest pain or other respiratory symptoms. Per provider, Ilia continues to appear slow to process questions and information. His CIWA scores have been 3-4 and he has not required any medication for this. This morning Ilia's Hgb dropped to 8.9 from 9.7 and a unit of blood has been ordered. He has also been hypotensive with systolic pressures in the 80s and 90s. The provider has consulted [facility] [place] about the possibility of performing an upper endoscopy to determine if he is actively bleeding. No determination has been made at this time. A:Ilia is a 70 year old man admitted on 04/11/21 with Covid pneumonia P:Ilia remains in ICU being treated for Covid pneumonia and a GI Bleed. His discharge plan is unclear as he has many comorbidites. CM will continue to follow and support discharge planning needs.
[2021-04-13] MEDS: Acetaminophen 325 MG TAB 650 MG PO (11:44)
--- NOTE | 2021-04-13 13:52 | W.PM.DS.N ---
Date of service: 04/13/21 Time of Service: 13:52 DS: Diagnosis Discharge Diagnosis (1) GI bleeding: Status: Chronic (2) Anemia associated with acute blood loss: Status: Acute (3) COVID-19: Status: Acute (4) Encephalopathy acute: Status: Acute (5) Hematuria: Status: Ruled-out (6) Bladder wall thickening: Status: Acute (7) Alcohol abuse: Status: Chronic (8) Failure to thrive: Status: Acute (9) Hypervitaminosis D: Status: Acute (10) Hypokalemia: Status: Acute (11) Hypophosphatemia: Status: Acute Discharge Plan Disposition Patient Disposition: [facility] Condition: Fair Discharge Details Reason For Visit: Altered Mental Status, Covid 19+, Pneumonia Admit Date/Time: 04/11/21 02:34 Admit Provider: Mio Navarro Attending Provider: Mio Navarro Primary Care Provider: [facility] Course Hospital Course: Mr Kang is a 70 year old male with PMHx of esophageal cancer s/p esophagogastrectomy at [facility] [place] in early , as well as h/o prior GI bleeding, CAD, chronic Afib not on anticoagulation, chronic diastolic CHF, alcohol abuse, who was admitted to [facility] hospitalist service on 04/11/21 and shortly after transferred to the ICU after presenting to the ED with altered mental status (lethargic), reports of vomiting blood and passing bloody stools at home, and having tested positive for COVID-[address] head was negative. The patient's oxygen requirements have been minimal here (room air), but the ICU transfer was felt necessary due to drop in hemoglobin from 13.6 on presentation down to 9.8 while passing melanotic stools and becoming hypotensive to SBP in the 90s. The patient does not have a diagnosis of cirrhosis, and his EGD from 2018 as well as imaging studies from this admission do not show evidence of varices. The patient received two units of pRBCs on 04/11/21 and was evaluated by general surgery who agreed with continuation of IV protonix and carafate, but did not feel that the patient needed an emergent EGD and, ideally, would eventually have this done at a tertiary care facility familiar with his anatomy ([facility]). Twenty four hours later, the patient's bleeding had clinically stabilized, so a decision was made to give him a trial of clear liquids. On hospital day 3, however, his H/H has drifted down to 8.9/26.5 (it was 10.5/31.9) yesterday morning, and the patient is reporting intermittent epigastric pain. He was made NPO, and a consultation with [facility] was sought. Dr Mccartney felt that the patient would benefit from a transfer to [facility] for the EGD, and he was accepted in transfer by Dr Trivedi on the hospitalist service, whose assistance is greatly appreciated. Importantly, the patient's last BP is 103/62. Because his morning SBPs were in the 90s, we decided to transfuse him his third unit of pRBCs (for the admission; only receiving 1 unit today). He has not had any melanotic stools witnessed since 04/11/21. He is receiving remdesivir because of his commorbidities and potential to deteriorate. He did have a clear liquid breakfast on the day of transfer. While there is evidence of bladder thickening on CT, we have not been observing urinary retention. He does not have a UTI. He is not showing signs of alcohol withdrawal. His mental status improved with decrease in his home norco and gabapentin doses. Ammonia was normal on this admission, and no clinical evidence of asterexis was seen. His DPOA's phone numbers were disconnected. His roommate, Lyudmila Bellamy, has been difficult to get in touch with, but her phone number is [phone]. She is listed as a substitute DPOA on his paperwork. The patient is felt to be stable for transfer to [facility] at this time. 60 minutes were spent on coordination and preparation of his transfer. Please, look at MAR for the list of the patient's medications. The list below reflects his outpatient prescriptions, which were not confirmed by the patient. Home Meds and New Rx's Prescriptions: No Action sucralfate [Carafate] 100 mg/mL suspension 10 ml PO QID RF: 0 lidocaine 5 % cream 1 applic TP QID RF: 0 multivitamin capsule 1 cap PO DAILY RF: 0 Combivent Respimat 20-100 mcg/actuation mist 2 puff IH TID RF: 0 folic acid 1 MG tablet 1 mg PO DAILY RF: 0 bupropion HCl (smoking deter) 150 MG tablet extended release 12 hr 150 mg PO BID RF: 0 aspirin [Ecotrin Low Strength] 81 MG tablet,delayed release (DR/EC) 81 mg PO DAILY RF: 0 atorvastatin [Lipitor] 10 MG tablet 10 mg PO HS RF: 0 nitroglycerin [Nitrostat] 0.4 MG tablet, sublingual 0.4 mg Sublingual . DIRECTED PRN (Reason: Chest Pain) RF: 0 cholecalciferol (vitamin D3) 1,000 UNITS tablet 2,000 units PO DAILY RF: 0 gabapentin 300 mg capsule 300 mg PO TID RF: 0 Ensure Original Liquid See Rx Instructions .ROUTE .COMPLEX RF: 0 bumetanide 2 mg tablet 2 mg PO BID Qty: 20 RF: 0 hydrocodone-acetaminophen 10-325 mg tablet 1 tab PO TID RF: 0 spironolactone 25 mg tablet 25 mg PO DAILY RF: 0 pantoprazole 40 MG tablet,delayed release (DR/EC) 40 mg PO DAILY RF: 0 metoprolol tartrate 25 mg Tablet 12.5 mg PO BID RF: 0 amoxicillin-pot clavulanate [Augmentin] 875-125 mg tablet 1 tab PO BID Qty: 14 RF: 0 tamsulosin 0.4 mg capsule 0.4 mg PO QHS RF: 0 ferrous sulfate [FeroSul] 325 mg (65 mg iron) tablet 325 mg PO DAILY RF: 0 tiotropium bromide 18 mcg Capsule, W/Inhalation Device 18 mcg INHALATION DAILY RF: 0 Discharge Instructions Activity:: bedrest Diet:: NPO Discharge Orders Discharge Orders: Discharge Order (Routine); Ordered 04/13/21 Ordered By: Shakila Mayberry DS: Summary Time Spent with Patient providing and/or coordinating discharge services: Greater than 30 minutes Status at Discharge Functional status at discharge: bed bound Overall status at discharge: patient is not back to baseline Mental Status: mental status grossly normal Speech and Movement: slowed movement Mood: congruent mood Affect: indifferent Exam Narrative Exam Narrative: General: Frail elderly male, lethargic, A&Ox2, slow to respond to questions, but volunteers to me that if not [facility], then I go to [place]. He understands that I am trying to arrange a transfer to [facility] and agrees to it. HEENT: EOMI, MMM Heart: irregularly irregular rhythm, no m/r/g Lungs: quiet rhonchi B. Abdomen: soft, scaphoid, nontender, nondistended Extremities: trace B ankle edema with wrinkling Psych Mental Status: mental status grossly normal Speech and Movement: slowed movement Mood: congruent mood Affect: indifferent DS: Data Vitals/I&O Vitals and I&O: Vital Signs Temperature 36.2 C L 04/13/21 07:55 Temperature Source Temporal Artery Scan 04/13/21 07:55 Pulse 68 04/13/21 13:26 Pulse Rhythm Regular 04/11/21 07:45 Pulse 77 04/13/21 13:32 Respiratory Rate 17 04/13/21 13:32 Respiratory Effort 04/13/21 07:55 Respiratory Depth Normal 04/13/21 07:55 Respiratory Pattern Normal 04/13/21 07:55 Blood Pressure 94/48 L 04/13/21 13:26 Blood Pressure Mean 60 04/13/21 13:26 Blood Pressure Position Supine 04/13/21 07:55 Pulse Oximetry 99 04/13/21 13:32 Oxygen Delivery Method Room Air 04/13/21 07:55 Oxygen Flow Rate 0 04/13/21 07:55 Pain Level 0 04/13/21 07:55 Intake & Output 04/12/21 04/13/21 04/13/21 23:59 11:59 23:59 Intake Total 790.500 / 3272.583 2140.75 / 2140.75 Output Total 550 / 1350 850 / 850 Balance 240.500 / 3819.833 6379.75 / 1290.75 Weight 48.2 kg Intake: IV 560.500 / 3042.583 1890.75 / 1890.75 Oral 230 / 230 250 / 250 Output: Urine 550 / 1350 850 / 850 Other: Urine Color Yellow Yellow Urine Appearance Clear Clear Urine Odor Normal Normal Comment Incontintent/missuring urinal while lying in bed Voiding Methods Urinal Urinal Data Completed and Pending Completed studies during hospitalization [Text1]: CT chest/abdomen/pelvis w/ contrast 04/10/21: The appearance as described above is suggestive of bilateral basilar pneumonia, right greater than left. No other specific acute process. CT head 04/10/21: No evidence of acute intracranial process. Labs on day of discharge: Labs from last 24 hours 04/13/21 04/13/21 04/13/21 06:30 06:30 06:30 WBC 7.13 RBC 2.76 L Hgb 8.9 L Hct 26.5 L MCV 96.0 H MCH 32.2 MCHC 33.6 RDW 16.7 H Plt Count 109 L MPV 10.5 Immature Gran % 0.4 Neutrophils % 81.7 Lymphocytes % 13.2 Monocytes % 3.9 Eosinophils % 0.7 Basophils % 0.1 Nucleated RBC % 0 Absolute Neutrophils 5.82 Absolute Lymphocytes 0.94 L Absolute Monocytes 0.28 Absolute Eosinophils 0.05 Absolute Basophils 0.01 PT INR D-Dimer Sodium 140 Potassium 3.1 L Chloride 110 H Carbon Dioxide 23.0 Anion Gap 7.0 BUN 21 H D Creatinine 0.7 Estimated GFR/1.73 m2 >= 60.00 Glucose 83 Calcium 7.5 L Phosphorus < 2.0 L Magnesium Ferritin Total Bilirubin 0.7 Conjugated Bilirubin 0.4 H AST 20 ALT 9 L Alkaline Phosphatase 69 C-Reactive Protein Total Protein 4.5 L Albumin 1.8 L 25-OH Vitamin D Total Patient ABO/Rh Antibody Screen Crossmatch 04/13/21 04/13/21 04/12/21 06:30 06:30 14:15 WBC RBC Hgb 9.7 L Hct 28.9 L MCV MCH MCHC RDW Plt Count MPV Immature Gran % Neutrophils % Lymphocytes % Monocytes % Eosinophils % Basophils % Nucleated RBC % Absolute Neutrophils Absolute Lymphocytes Absolute Monocytes Absolute Eosinophils Absolute Basophils PT 13.1 H INR 1.3 H D-Dimer 349 Sodium Potassium Chloride Carbon Dioxide Anion Gap BUN Creatinine Estimated GFR/1.73 m2 Glucose Calcium Phosphorus Magnesium 1.9 Ferritin 203 Total Bilirubin Conjugated Bilirubin AST ALT Alkaline Phosphatase C-Reactive Protein 4.55 H Total Protein Albumin 25-OH Vitamin D Total Patient ABO/Rh Antibody Screen Crossmatch 04/12/21 04/12/21 04/11/21 14:15 06:00 07:15 WBC RBC Hgb Hct MCV MCH MCHC RDW Plt Count MPV Immature Gran % Neutrophils % Lymphocytes % Monocytes % Eosinophils % Basophils % Nucleated RBC % Absolute Neutrophils Absolute Lymphocytes Absolute Monocytes Absolute Eosinophils Absolute Basophils PT INR D-Dimer Sodium 148 H Potassium 3.0 L Chloride 114 H Carbon Dioxide 26.5 Anion Gap 7.5 BUN 32 H Creatinine 0.8 Estimated GFR/1.73 m2 >= 60.00 Glucose 123 H Calcium 7.7 L Phosphorus Magnesium Ferritin Total Bilirubin Conjugated Bilirubin AST ALT Alkaline Phosphatase C-Reactive Protein Total Protein Albumin 25-OH Vitamin D Total 116.4 H* Patient ABO/Rh O Positive Antibody Screen NEGATIVE Crossmatch See Detail PFSH Medical History Adenocarcinoma of esophagus Afib Alcohol abuse CAD (coronary artery disease) Chronic obstructive lung disease Diabetes mellitus Difficulty reading Essential hypertension GERD (gastroesophageal reflux disease) GI bleed Hyperlipidemia Pancreatitis Solitary pulmonary nodule Tobacco abuse Tricuspid regurgitation Weight loss Surgical History cardiac cath Coronary Artery Bypass Gaft (CABG) EGD - IV Sedation Esophagectomy H/O colonoscopy (2007) H/O colonoscopy (04/14/18) dr geller, sigmoid diverticulosis, repeat 10 years History of esophagogastroduodenoscopy (EGD) (09/2017) History of hydrocelectomy History of right inguinal hernia repair repair times two sugrical flap of unhealing wound Family History Mother No problems noted. Father No problems noted. Social History Smoking/Tobacco Use Status: Current-Occasional Tobacco Type: cigarettes Smoking packs per day: 1 Smoking cigarettes per day: 20.0 Years smoked: 50 Smoking pack-years: 50.00 Smoking risk assessment performed?: Yes Alcohol Intake: current Alcohol Intake frequency: 0-2 drinks per day Alcohol type: beer Drug use: Never Substance use type: does not use What type of physical activity do you participate in: none Do you feel safe at home: Yes Do you feel safe in your relationship?: Yes
--- NOTE | 2021-04-13 14:04 | NUR.NOTE ---
Patient used call prasad. This APPLICATION PERFORMANCE ENGINEER went into room and PT was complaining of pain in IV sight where he is receiving blood products. RN in another patients room. die cast supervisor notified as she was the only RN available at time of complaint. Nursing Note:
--- NOTE | 2021-04-13 15:58 | W.PULMCC ---
General Date of Service Date of service: 04/13/21 Time of Service: 08:00 Reason for Admission to ICU: upper GIB COVID Assessment and Plan Assessment and plan (1) Hypophosphatemia: Status: Acute (2) Hypokalemia: Status: Acute (3) Hypervitaminosis D: Status: Acute (4) Anemia associated with acute blood loss: Status: Acute (5) GI bleeding: Status: Chronic Qualifiers: GI bleed type/associated pathology: unspecified gastrointestinal hemorrhage type Qualified Code(s): K92.2 - Gastrointestinal hemorrhage, unspecified (6) COVID-19: Status: Acute (7) Altered mental status: Status: Acute (8) Chronic obstructive lung disease: Status: None (9) Pulmonary hypertension: Status: Chronic Assessment and plan: This is a 70-year-old man admitted to ICU for upper GI bleed found to have Covid. It seems as though his GI bleeding has resolved and his Covid diagnosis is almost incidental. His chest CT is significant for severe emphysematous findings but does not appear to have significant infiltrates associated with Covid rather there is a right lower lobe nodular appearing infiltrate that could potentially be Covid pneumonia but also I would favor aspiration given the patient's functional status. He has had downtrending hemoglobin and is receiving a unit of PRBCs this morning. From a Covid perspective he has only on remdesivir as steroids were held due to his GIB. Recommendations Pulmonary: No acute concerns Cardiac: A. fib - not on A/C - ASA being held given GIB CHF - recommend conservative IVF - can likely discontinue as he is tolerating a diet and stable from a vital signs perspective Renal: Hypophosphatemia - replete to 4.0 Hypokalemia - replete to 4.0 Hypoalbuminemia I&O: Intake & Output 04/11/21 04/12/21 04/12/21 04/13/21 00:59 00:59 23:59 23:59 Intake Total 2240.75 / 2240.75 Output Total 1100 / 1100 Balance 1140.75 / 1140.75 Weight 48.2 kg Daily Fluid Goal:: Even GI Nutrition: UGIB - on Protonix and carafate - holding all blood thinning meds - EGD if continued bleeding/decompensation - OK for full diet tomorrow if no further bleeding Date of Last Bowel Movement: 04/11/21 Infectious Disease: COVID - on remdesivir - on RA - likely doesnt need remdesivir - would consider starting steroids tomorrow if no further bleeding and stable (vitals and H/H) Hematologic: Anemia 2/2 GIB - s/p 1 U PRBC - continue to monitor for bloody BM's and monitor H/H Neurologic: AMS - delirium prevention Endocrine: No acute concerns Prophylaxis: can likely restart DVT ppx tomorrow if no further bleeding Code Status: Resuscitation Status Full Code Subjective Critical and life-threatening events over the past 24 hours: 70-year-old man with history of esophageal cancer screening esophagectomy, prior GI bleeding due to likely gastric ulcer, CHF, A. fib with pacemaker who presents with with upper GI bleed and was found to have Covid. Hemodynamically stable and given his complicated anatomy, rate opted for more conservative management and recommended EGD only if the patient were to become unstable or have continued bleeding. The patient's last bloody bowel movement was reportedly Tuesday and was able to tolerate a clear liquid diet although his H&H do appear to be trending downward. He is being treated with Carafate and IV Protonix and his aspirin is being held. The patient appears to be confused and is difficult to understand on my assessment but does have a good appetite and is not having difficulty breathing. Exam Const General: no acute distress Nutritional Appearance: well nourished [facility] Head: normocephalic Ears: external ears normal and no periauricular adenopathy General nose exam: nasal mucous membranes and turbinates normal Face and sinus: sinuses nontender Mouth: oropharynx normal and moist mucous membranes Teeth and gingiva: dentition normal Eyes General: appearance normal, both eyes and all related structures Pupils: PERRL Neck Neck: normal visual inspection and no lymphadenopathy Chest Chest: normal inspection of the chest Resp Effort & Inspection: normal respiratory effort Auscultation: clear to auscultation bilaterally, no rales, no rhonchi and no wheezes Cardio Rate: regular rate Rhythm: regular rhythm Heart Sounds: S1 normal, S2 normal and no murmurs Pulses: radial pulses present bilaterally GI Inspection: normal to inspection Palpation: soft Skin General skin exam: no rashes or lesions noted Neuro General: patient alert, patient awake and patient oriented x3 Extrem General: no clubbing, cyanosis or edema Psych Mental Status: mental status grossly normal Affect: normal affect Attitude: cooperative Most Recent VS/Results Last Vital Signs Temp 36.1 C L 04/13/21 13:23 Pulse 69 04/13/21 15:31 Resp 15 04/13/21 15:40 BP 99/58 L 04/13/21 15:31 Pulse Ox 98 04/13/21 15:40 Laboratory Results - last 24 hr 04/11/21 04/12/21 04/13/21 07:15 06:00 06:30 WBC RBC Hgb Hct MCV MCH MCHC RDW Plt Count MPV Immature Gran % Neutrophils % Lymphocytes % Monocytes % Eosinophils % Basophils % Nucleated RBC % Absolute Neutrophils Absolute Lymphocytes Absolute Monocytes Absolute Eosinophils Absolute Basophils PT INR D-Dimer Sodium Potassium Chloride Carbon Dioxide Anion Gap BUN Creatinine Estimated GFR/1.73 m2 Glucose Calcium Phosphorus Magnesium 1.9 Ferritin 203 Total Bilirubin Conjugated Bilirubin AST ALT Alkaline Phosphatase C-Reactive Protein 4.55 H Total Protein Albumin 25-OH Vitamin D Total 116.4 H* Patient ABO/Rh O Positive Antibody Screen NEGATIVE Crossmatch See Detail 04/13/21 04/13/21 04/13/21 06:30 06:30 06:30 WBC 7.13 RBC 2.76 L Hgb 8.9 L Hct 26.5 L MCV 96.0 H MCH 32.2 MCHC 33.6 RDW 16.7 H Plt Count 109 L MPV 10.5 Immature Gran % 0.4 Neutrophils % 81.7 Lymphocytes % 13.2 Monocytes % 3.9 Eosinophils % 0.7 Basophils % 0.1 Nucleated RBC % 0 Absolute Neutrophils 5.82 Absolute Lymphocytes 0.94 L Absolute Monocytes 0.28 Absolute Eosinophils 0.05 Absolute Basophils 0.01 PT 13.1 H INR 1.3 H D-Dimer 349 Sodium 140 Potassium 3.1 L Chloride 110 H Carbon Dioxide 23.0 Anion Gap 7.0 BUN 21 H D Creatinine 0.7 Estimated GFR/1.73 m2 >= 60.00 Glucose 83 Calcium 7.5 L Phosphorus Magnesium Ferritin Total Bilirubin 0.7 Conjugated Bilirubin 0.4 H AST 20 ALT 9 L Alkaline Phosphatase 69 C-Reactive Protein Total Protein 4.5 L Albumin 1.8 L 25-OH Vitamin D Total Patient ABO/Rh Antibody Screen Crossmatch 04/13/21 06:30 WBC RBC Hgb Hct MCV MCH MCHC RDW Plt Count MPV Immature Gran % Neutrophils % Lymphocytes % Monocytes % Eosinophils % Basophils % Nucleated RBC % Absolute Neutrophils Absolute Lymphocytes Absolute Monocytes Absolute Eosinophils Absolute Basophils PT INR D-Dimer Sodium Potassium Chloride Carbon Dioxide Anion Gap BUN Creatinine Estimated GFR/1.73 m2 Glucose Calcium Phosphorus < 2.0 L Magnesium Ferritin Total Bilirubin Conjugated Bilirubin AST ALT Alkaline Phosphatase C-Reactive Protein Total Protein Albumin 25-OH Vitamin D Total Patient ABO/Rh Antibody Screen Crossmatch Review of Systems All systems reviewed & are unremarkable except as noted in HPI and below Time spent with patient Time spent in Critical Care: 45 Time spent in Critical care included: Coordination of care, Chart review, Documenting critically ill care, Time at immediate bedside and Discussing critically ill care with other medical staff
--- NOTE | 2021-04-13 17:08 | NUR.NOTE ---
Nursing Note: nothing in safe at time of transfer, spoke to Chandrika Petit rn acute care [facility]. she will follow up with RN that wrote note at admit to ms that valuables placed in safe.
--- NOTE | 2021-04-13 19:46 | NUR.NOTE ---
found bag of pt's clean laundry and keys in icu office. called Lyudmila to report, Lyudmila states she can come by 04/14 to picket [employer] form ED entrance.
== END 2021-04-13 16:00 | disposition short-term general hospital (02) | DRG 177 ==
LOC: ER 02:50 → MS 03:37 → ICU 13:38
PROVIDERS: Internal Medicine; Admitting Provider Family Medicine; Emergency Provider Emergency Medicine; PCP Family Medicine; Visit Provider Family Medicine
DX: U07.1 COVID-19 (principal); E43 Unspecified severe protein-calorie malnutrition; J12.82 Pneumonia due to coronavirus disease 2019; S22.41XA Multiple fractures of ribs, right side, initial encounter for closed fracture; J44.0 Chronic obstructive pulmonary disease with (acute) lower respiratory infection; Z68.1 Body mass index [BMI] 19.9 or less, adult; I48.20 Chronic atrial fibrillation, unspecified; I50.30 Unspecified diastolic (congestive) heart failure; D62 Acute posthemorrhagic anemia; G93.40 Encephalopathy, unspecified; K92.0 Hematemesis; K92.1 Melena; F10.10 Alcohol abuse, uncomplicated; E11.9 Type 2 diabetes mellitus without complications; I07.1 Rheumatic tricuspid insufficiency; R63.4 Abnormal weight loss; I27.20 Pulmonary hypertension, unspecified; I11.0 Hypertensive heart disease with heart failure; Z95.0 Presence of cardiac pacemaker; I25.10 Atherosclerotic heart disease of native coronary artery without angina pectoris; Z90.49 Acquired absence of other specified parts of digestive tract; R62.7 Adult failure to thrive; K21.9 Gastro-esophageal reflux disease without esophagitis; E78.5 Hyperlipidemia, unspecified; R91.1 Solitary pulmonary nodule; Z95.1 Presence of aortocoronary bypass graft; F17.210 Nicotine dependence, cigarettes, uncomplicated; Z85.01 Personal history of malignant neoplasm of esophagus; X58.XXXA Exposure to other specified factors, initial encounter; E87.6 Hypokalemia; E83.39 Other disorders of phosphorus metabolism; I95.9 Hypotension, unspecified
CPT/HCPCS: 36410; 36415; 36430; 80048; 80053; 80076; 80307; 82306; 84145; 86850; 86900; 86901; 86920; 96360; 99222; 99285; 99291; 82140; 82728; 83735; 84100; 85014; 85018; 85025; 85379; 85610; 86140; 99223; 99239; J3480; J3490; J7060; P9016

== ENCOUNTER 2021-04-27 18:11 | Outpatient (REF) | payer MEDICARE, MEDICAID, SELFPAY ==
[2021-04-27 18:41] LABS: HCT 34.5 % (40.0-50.0); HGB 10.9 g/dL (13.5-17.5); MCH 30.9 pg (27.0-33.0); MCHC 31.6 % (32.0-36.0); MCV 97.7 fL (80-95); MPV 9.6 fL (8.0-11.0); RBC 3.53 10^6/uL (4.36-5.78); RDW-SD 56.9 fL
[2021-04-27 18:43] LABS: Platelet Count 285 10^3/uL (130-400)
[2021-04-27 18:58] LABS: Anion Gap 4.4 mmol/L (3-11); BUN 24 mg/dL (7-18); CO2 33.6 mmol/L (21.0-32.0); CREATININE 1.1 mg/dL (0.70-1.30); Calcium 8.8 mg/dL (8.5-10.1); Chloride 98 mmol/L (98-107); Ferritin 122 ng/mL (26-388); Glucose 64 mg/dL (74-106); Potassium 4.3 mmol/L (3.5-5.1); Sodium 136 mmol/L (136-145)
== END 2021-04-27 18:12 | disposition home or self-care (01) ==
LOC: NCHCN 18:11
PROVIDERS: PCP Family Medicine; Visit Provider Family Medicine
DX: R63.4 Abnormal weight loss (principal); D50.9 Iron deficiency anemia, unspecified; E40 Kwashiorkor
CPT/HCPCS: 80048; 85027; 82728

== ENCOUNTER 2021-06-23 16:31 | Observation (INO) | payer MEDICARE, MEDICAID, SELFPAY ==
[2021-06-23] VITALS (44 sets, daily range): BP systolic 90–156; BP diastolic 40–84; PULSE 71–164; RESP 13–26; TEMP 36.6; O2SAT 96–100
--- NOTE | 2021-06-23 16:30 | RT.EKG_ITS ---
APPROVED REPORT Exam: Resting ECG Reason for Exam: chf, swelling Patient Location: E HR:93 bpm ECG Measurements Heart Rate 93 AXIS RI [id number] P [id number] QRSd 82 QRS 64 QT 369 T 28 QTc 459 Conclusion Atrial fibrillation...V-rate 78-102, irreg A-activity Ventricular premature complex...V complex w/ short R-R interval Low voltage, extremity leads...all extremity leads <0.5mV Nonspecific repol abnormality, diffuse leads...ST dep, T flat/neg, ant/lat/inf. Afib vs flutter. PVCs. No STEMI. I have reviewed and interpreted ECG and agree with software generated interpretation.
--- NOTE | 2021-06-23 17:00 | DI.RAD_ITS ---
Exam(s) XR PORTABLE CHEST AP EXAM: XR PORTABLE CHEST AP CLINICAL HISTORY: Edema, CHF hx TECHNIQUE: COMPARISON: CR,XR XR PORTABLE CHEST AP from 01/20/[address] ABDOMEN PELVIS W from 07/09/2020 CR XR CHEST 1V IN DI DEPT from 07/09/2020 FINDINGS: The heart appears moderately enlarged. There are multiple mediastinal vascular clips consistent with prior CABG surgery. There appear to be changes of pulmonary scarring in a diffuse pattern. There a re a question patchy and diffuse areas of increased radiodensity noted acutely as well in comparison with prior examinations including January 2020. No gross pleural effusion on this frontal film. There is reportedly a history of gastric carcinoma and evidence of prior gastric surgery with presume d gastric remnant above the diaphragm. IMPRESSION: The appearance raises the possibility of acute CHF and/or multifocal pneumonia. Follow-up PA and lat eral chest or chest CT suggested. RADIATION DOSE DELIVERED: Total DLP
[2021-06-23] MEDS: MORPHine 10 MG/ML VIAL 2 MG IVP (17:21)
[2021-06-23 17:22] LABS: Abs Immature Grans 0.08 10^3/uL (0.0-0.06); Absolute Basophil Count 0.03 10^3/uL (0.0-0.2); Absolute Eosinophil Count 0.08 10^3/uL (0.0-0.7); Absolute Monocyte Count 0.84 10^3/uL (0.1-0.8); Absolute Neutrophil Count 5.63 10^3/uL (1.2-6.7); Basophils % 0.4; HCT 31.1 % (40.0-50.0); HGB 9.8 g/dL (13.5-17.5); Lymphocytes % 13.1; MCH 28.7 pg (27.0-33.0); MCHC 31.5 % (32.0-36.0); MCV 91.2 fL (80-95); Neutrophils % 73.5; Nucleated RBC 0 %; Platelet Count 255 10^3/uL (130-400); RBC 3.41 10^6/uL (4.36-5.78); WBC 7.66 10^3/uL (4.4-10.8)
--- NOTE | 2021-06-23 17:44 | ED.GENADUL_ITS ---
Discharge Plan Disposition Patient Disposition: [facility] INPATIENT Condition: Improving Discharge Details Clinical Impression: CHF, acute on chronic Admit Date/Time: 06/23/21 19:42 Admit Provider: Shakila Mayberry Attending Provider: Shakila Mayberry Primary Care Provider: Silvina Perdue ED Provider: Joel Morales Discharge Data Discharge Date/Time-TO BE ENTERED AT DEPARTURE: 06/23/21 20:33 Medical Decision Making Patient presenting to the emergency department for bilateral lower extremity swelling. Patient states history of congestive heart failure with previous swelling but is so severe he has not been able to get up and move. Patient denies any other symptoms but states he has not been getting up and moving so difficult to determine if patient has dyspnea on exertion. Physical exam shows significant bilateral lower extremity edema from the knee down. Exam is otherwise unremarkable. Labs were performed and show significant elevation of BNP, negative troponin and anemia. Radiological imaging shows findings of edema versus infiltrate. Patient given 40 mg IV Lasix given stable electrolytes and hospitalist was consulted. Hospitalist agreed to have patient admitted for further diuresis and pain control given the patient is not ambulatory secondary to significant pain and discomfort from edema. Patient is agreeable to staying. Admitting physician stated that she would put in admission orders. Imaging Data Radiologic Study: Imaging: X-Ray Radiologist's impression: IMPRESSION: 1. Chronic lung disease. 2. Multifocal pneumonia and/or edema. Thank you for allowing us to participate in the care of your patient. Dictated and Authenticated by: Shaun Poole MD 06/23/2021 7:01 Lab Data Lab results reviewed: Yes I reviewed the patient's lab results. Labs: Laboratory Tests Range/Units 06/23/21 06/23/21 17:15 17:15 WBC (4.4-10.8) 10^3/uL 7.66 RBC (4.36-5.78) 10^6/uL 3.41 L Hgb (13.5-17.5) g/dL 9.8 L Hct (40.0-50.0) % 31.1 L MCV (80-95) fL 91.2 MCH (27.0-33.0) pg 28.7 MCHC (32.0-36.0) % 31.5 L RDW (11.8-14.1) % 15.0 H Plt Count (130-400) 10^3/uL 255 MPV (8.0-11.0) fL 9.0 Immature Gran % 1.0 Neutrophils % 73.5 Lymphocytes % 13.1 Monocytes % 11.0 Eosinophils % 1.0 Basophils % 0.4 Nucleated RBC % % 0 Absolute Neutrophils (1.2-6.7) 10^3/uL 5.63 Absolute Lymphocytes (1.2-3.4) 10^3/uL 1.00 L Absolute Monocytes (0.1-0.8) 10^3/uL 0.84 H Absolute Eosinophils (0.0-0.7) 10^3/uL 0.08 Absolute Basophils (0.0-0.2) 10^3/uL 0.03 Sodium (136-145) mmol/L 136 Potassium (3.5-5.1) mmol/L 4.2 Chloride (98-107) mmol/L 103 Carbon Dioxide (21.0-32.0) mmol/L 24.6 Anion Gap (3-11) mmol/L 8.4 BUN (7-18) mg/dL 50 H Creatinine (0.70-1.30) mg/dL 1.2 Estimated GFR/1.73 m2 (mL/min/1.73m2) 59.86 Glucose (74-106) mg/dL 110 H Calcium (8.5-10.1) mg/dL 8.5 Magnesium (1.8-2.4) mg/dL 2.3 Total Bilirubin (0.2-1.0) mg/dL 0.3 AST (15-37) U/L 18 ALT (16-63) U/L 19 Alkaline Phosphatase (46-116) U/L 152 H Troponin I (<or=60) ng/L < 50 NT-Pro-B Natriuret Pep (<300) pg/mL 6158 H Total Protein (6.4-8.2) g/dL 7.0 Albumin (3.4-5.0) g/dL 2.8 L HPI General Mode of arrival: EMS . Date/Time Provider Initiated Documentation: 06/23/21 16:35 . Limitations to Documentation: no limitations . Information obtained by: patient . History of Present Illness 70 year old M presents to the emergency department with the chief complaint of Leg swelling, described as similar to prior episodes, with intensity rated at 10. Quality is described as aching and sharp, and is localized to the lower extremity. Patient reports no radiation. Patient started experiencing this week(s) (2) and it has been constant. No relieving factors improve symptom(s), No exacerbating factors reported . Patient notes no other symptoms.. Patient did receive the following treatments prior to arrival, none Related Data Home Medications Medication Instructions Recorded Confirmed bupropion HCl (smoking deter) 150 mg PO BID 08/04/12 06/23/21 folic acid 1 mg PO DAILY 08/04/12 06/23/21 aspirin [Ecotrin Low Strength] 81 mg PO DAILY 04/09/13 06/23/21 atorvastatin [Lipitor] 10 mg PO HS 01/25/15 06/23/21 cholecalciferol (vitamin D3) 2,000 units PO DAILY 04/12/16 06/23/21 nitroglycerin [Nitrostat] 0.4 mg SUBLINGUAL . DIRECTED PRN 04/12/16 06/23/21 pantoprazole 40 mg PO DAILY 01/15/17 06/23/21 lidocaine 5 % topical cream 1 applic TP QID 02/10/18 06/23/21 multivitamin 1 cap PO DAILY 02/10/18 06/23/21 sucralfate 100 mg/mL oral 10 ml PO QID 02/10/18 06/23/21 suspension metoprolol tartrate 12.5 mg PO BID 04/12/18 06/23/21 ipratropium 20 mcg-albuterol 100 2 puff IH TID 05/02/19 06/23/21 mcg/actuation mist for inhalation Ensure Original See Rx Instructions .ROUTE .COMPLEX 01/15/20 06/23/21 gabapentin 300 mg PO TID 01/15/20 06/23/21 hydrocodone-acetaminophen 1 tab PO TID 07/09/20 06/23/21 spironolactone 25 mg PO DAILY 07/10/20 06/23/21 ferrous sulfate [FeroSul] 325 mg PO DAILY 03/05/21 06/23/21 tamsulosin 0.4 mg PO QHS 03/05/21 06/23/21 tiotropium bromide 18 mcg INHALATION DAILY 03/05/21 06/23/21 bumetanide See Rx Instructions .ROUTE 06/24/21 06/23/21 .COMPLEX #20 tab Previous Rx's Medication Instructions Recorded bumetanide See Rx Instructions .ROUTE 06/24/21 .COMPLEX #20 tab Allergies Allergy/AdvReac Type Severity Reaction Status Date / Time No Known Allergies Allergy Verified 04/10/21 13:06 General Stated Complaint: GenMedical ANAMIKA: 3 Review of Systems Constitutional Constitutional: Denies chills and Denies fever(s) Cardiovascular Cardiovascular: Reports as per HPI, Denies chest pain, Denies chest pain with activity, Denies syncope, Reports pedal edema, Denies irregular heart rhythm, Reports leg edema, Denies palpitations and Denies dyspnea Respiratory Respiratory: Denies cough, Denies hemoptysis and Denies dyspnea Gastrointestinal Gastrointestinal: Denies abdominal pain, Denies nausea and Denies vomiting Integumentary/Breasts Skin/Breast: Denies erythema and Denies wounds Neurologic Neurologic: Denies syncope Endocrine Endocrine: Denies palpitations PFSH All Active Problems (Updated 06/25/21 @ 00:05 by AZAEL LAINEZ) Hypophosphatemia (Acute) Hypokalemia (Acute) Hypervitaminosis D (Acute) Anemia associated with acute blood loss (Acute) Failure to thrive (Acute) Encephalopathy acute (Acute) GI bleeding (Chronic) Malnutrition (Acute) Rib fractures (Acute) COVID-19 (Acute) AMS (altered mental status) (Acute) Hematoma (Acute) Neck pain (Acute) Pain, dental (Acute) Acute lymphadenitis of neck (Acute) Constipation (Acute) Bladder wall thickening (Acute) Colon wall thickening (Acute) Fatigue (Acute) Altered mental status (Acute) Shortness of breath (Acute) Abdominal pain (Acute) COVID-19 (Acute) Hypokalemia (Acute) Mild bibasilar atelectasis (Acute) Confusion state (Acute) Alcohol abuse (Chronic) Tricuspid regurgitation (Chronic) Bilateral lower extremity edema (Acute) Acute on chronic diastolic (congestive) heart failure (Acute) CAD (coronary artery disease) (Chronic) Hypertension (Chronic) Encounter for colorectal cancer screening (Acute) Hydrocele, right (Acute 01/23/16) Epididymitis, right (Acute 08/02/16) Cerumen impaction (Acute) Medical History Adenocarcinoma of esophagus Diabetes mellitus Difficulty reading Essential hypertension GERD (gastroesophageal reflux disease) GI bleed Hyperlipidemia Pancreatitis Solitary pulmonary nodule Tobacco abuse Weight loss Surgical History cardiac cath Coronary Artery Bypass Gaft (CABG) EGD - IV Sedation Esophagectomy H/O colonoscopy (2007) H/O colonoscopy (04/14/18) dr geller, sigmoid diverticulosis, repeat 10 years History of esophagogastroduodenoscopy (EGD) (09/2017) History of hydrocelectomy History of right inguinal hernia repair repair times two sugrical flap of unhealing wound Family History Mother No problems noted. Father No problems noted. Social History Smoking/Tobacco Use Status: Current-Occasional Tobacco Type: cigarettes Smoking packs per day: 1 Smoking cigarettes per day: 20.0 Years smoked: 50 Smoking pack -years: 50.00 Smoking risk assessment performed?: Yes Alcohol Intake: current Alcohol Intake frequency: 0-2 drinks per day Alcohol type: beer Drug use: Never Substance use type: does not use What type of physical activity do you participate in: none Do you feel safe at home: Yes Do you feel safe in your relationship?: Yes Exam Const General: cooperative, healthy appearing, comfortable, no acute distress, not diaphoretic and ill appearing chronically Nutritional Appearance: malnourished and thin Orientation: alert, awake and oriented x3 Limitations: mental status not altered Neck Neck: normal visual inspection, full ROM, trachea midline, supple, no anterior neck swelling and no JVD Carotids: normal carotid upstroke and no bruits Chest Chest: normal inspection of the chest Resp Effort & Inspection: normal respiratory effort and able to speak in complete sentences Auscultation: clear to auscultation bilaterally Cardio Jugular venous pressure: no JVD Palpation: normal PMI Rate: tachycardic Rhythm: abnormal rhythm irregularly irregular Heart Sounds: S1 normal, S2 normal, no click, no gallops, no murmurs and no rubs Bruits: no abdominal aortic bruits and no carotid bruits Pulses: radial pulses present bilaterally 2+ GI Inspection: normal to inspection Palpation: soft, no pulsatile masses and nontender Auscultation: normal bowel sounds Skin General skin exam: no rashes or lesions noted Neuro General: patient alert, patient awake, patient oriented x3, tone normal and moves all extremities Extrem General: edema Laterality: bilateral (3+ from knee down) Course Vital Signs Vital signs: Vital Signs Temperature 36.6 C 06/23/21 16:33 Pulse 94 H 06/23/21 16:33 Respiratory Rate 22 06/23/21 16:33 Blood Pressure 129/82 06/23/21 16:33 Pulse Oximetry 98 06/23/21 16:33 Temperature 36.6 C 06/23/21 16:33 Temperature Source Temporal Artery Scan 06/23/21 16:33 Pulse 94 H 06/23/21 16:33 Respiratory Rate 15 06/23/21 17:12 Respiratory Effort Non-Labored 06/23/21 17:12 Respiratory Depth Normal 06/23/21 17:12 Respiratory Pattern Normal 06/23/21 17:12 Blood Pressure 129/82 06/23/21 16:33 Blood Pressure Position Sitting 06/23/21 16:33 Pulse Oximetry 98 06/23/21 16:33 Oxygen Delivery Method Room Air 06/23/21 16:33 Oxygen Flow Rate 0 06/23/21 16:33 Pain Level 10 06/23/21 17:21 Lab/Test Results Lab/Test Results: Laboratory Tests Range/Units 06/23/21 17:15 WBC (4.4-10.8) 10^3/uL 7.66 RBC (4.36-5.78) 10^6/uL 3.41 L Hgb (13.5-17.5) g/dL 9.8 L Hct (40.0-50.0) % 31.1 L MCV (80-95) fL 91.2 MCH (27.0-33.0) pg 28.7 MCHC (32.0-36.0) % 31.5 L RDW (11.8-14.1) % 15.0 H Plt Count (130-400) 10^3/uL 255 MPV (8.0-11.0) fL 9.0 Immature Gran % 1.0 Neutrophils % 73.5 Lymphocytes % 13.1 Monocytes % 11.0 Eosinophils % 1.0 Basophils % 0.4 Nucleated RBC % % 0 Absolute Neutrophils (1.2-6.7) 10^3/uL 5.63 Absolute Lymphocytes (1.2-3.4) 10^3/uL 1.00 L Absolute Monocytes (0.1-0.8) 10^3/uL 0.84 H Absolute Eosinophils (0.0-0.7) 10^3/uL 0.08 Absolute Basophils (0.0-0.2) 10^3/uL 0.03 PAWSS Have you Been Recently Intoxicated or Drunk Within the Last 30 days?: No Have you Ever Experienced Previous Episodes of Alcohol Withdrawal?: No Have you ever Experienced Withdrawal Seizures?: No Have you ever Experienced Delirium Tremens(DT)s?: No Have you ever undergone Alcohol Rehabilitation Treatment (i.e, inpt ot outpatient treatment programs)?: No Have you ever Experienced Blackouts?: No Have you ever Combined Alcohol with other Downers within the last 90 days?: No Have you ever Combined Alcohol with any other Substance of Abuse during the last 90 days?: No Positive Blood Alcohol level on Presentation? [PCS.BAL]: No Evidence of Increased Autonomic Activity (i.e. HR>120, tremor, sweating, agitation, nausea)?: No Result: 0
[2021-06-23 17:52] LABS: ALT 19 U/L (16-63); AST 18 U/L (15-37); Albumin 2.8 g/dL (3.4-5.0); Alkaline Phosphatase 152 U/L (46-116); Anion Gap 8.4 mmol/L (3-11); BUN 50 mg/dL (7-18); Bilirubin, Total 0.3 mg/dL (0.2-1.0); CO2 24.6 mmol/L (21.0-32.0); CREATININE 1.2 mg/dL (0.70-1.30); Calcium 8.5 mg/dL (8.5-10.1); Chloride 103 mmol/L (98-107); Estimated GFR 59.86 (mL/min/1.73m2); Glucose 110 mg/dL (74-106); Magnesium 2.3 mg/dL (1.8-2.4); NT-proBNP 6158 pg/mL (<300); Potassium 4.2 mmol/L (3.5-5.1); Sodium 136 mmol/L (136-145); Troponin I < 50 ng/L (<or=60)
[2021-06-23] MEDS: Furosemide 40 MG/4 ML VIAL IVP (18:32)
--- NOTE | 2021-06-23 19:01 | DI.VRAD_ITS ---
PROCEDURE INFORMATION: Exam: XR Chest Exam date and time: 06/23/2021 5:08 PM Age: 70 years old Clinical indication: Other: Edema, chf HX; Prior surgery TECHNIQUE: Imaging protocol: XR of the chest. Views: 1 view. COMPARISON: CT CHEST PE ABD PELVIS W 04/10/2021 4:34 PM FINDINGS: Tubes, catheters and devices: Monitoring wires are present. Lungs: Patchy airspace opacities are noted throughout both lungs, subjectively increased from previous. Emphysema is demonstrated on the previous CT. Pulmonary vessels are not congested. Pleural spaces: Unremarkable. No pleural effusion. No pneumothorax. Heart/Mediastinum: Mild cardiomegaly. Post CABG changes noted. Bones/joints: Sternotomy wires noted. IMPRESSION: 1. Chronic lung disease. 2. Multifocal pneumonia and/or edema. Dictated and Authenticated by: Shaun Poole MD. Ordering:JENNFIER Maldonado MD
--- NOTE | 2021-06-23 20:00 | NUR.NOTE ---
Nursing Note: Pt swabbed per orders, blood drawn as ordered, o:600cc urine
[2021-06-23 20:09] LABS: Source Nasal/Nares
[2021-06-23] MEDS: Bumetanide 1 MG/4 ML VIAL 2 MG IVP (20:23)
[2021-06-23 20:43] LABS: D-Dimer 656 ng/mlFEU (<500)
[2021-06-23 21:02] LABS: COVID-19 PCR Negative (Negative); Influenza A PCR Negative (Negative); Influenza B PCR Negative (Negative); RSV PCR Negative (Negative)
--- NOTE | 2021-06-23 21:58 | W.PM.HP.N ---
Date of service: 06/23/21 Time of Service: 21:59 Assessment and Plan Assessment and plan (1) Acute on chronic systolic CHF (congestive heart failure): Status: Acute Assessment and plan: In addition to R-sided failure and dietary as well as quesiton of medical noncompliance. LVEF was 40-45% by echo in 01/23 Will diurese with bumex 2mg IV TID. Continue spironolactone. Consider bumex gtt. Monitor I/O's, daily weights, Cr. Check TSH/FT4. Check UA for protein. Monitor on tele Repeat echo. I reinforced with the patient the salt restriction. (2) Pulmonary hypertension: Status: Chronic Assessment and plan: As above - manage volume status. (3) Afib: Status: Chronic Assessment and plan: Afib/flutter. Not on anticoagulation. Monitor on tele. Continue metoprolol and volumen management. Obtain echo. (4) Acute on chronic anemia: Status: Acute Assessment and plan: Check Anemia studies. Continue PPI and carafate. Avoid chemical DVT ppx until results of hematest are known. Suspect that that anemia seen on today's labs is at least partially dilutional. (5) History of GI bleed: Status: Resolved Assessment and plan: Check hematest. As above (6) DVT prophylaxis: Status: Acute Assessment and plan: TEDs. Avoid chemical DVT ppx given recent GI bleeding and worsening of the hemobglobin. (7) Discharge planning issues: Status: Acute Assessment and plan: Full code, per my conversation with the patient witnessed by nursing. Would benefit from home health nursing on discharge. We need to clarify if meals on wheels has a low salt option. History of Present Illness History of Present Illness Chief Complaint: Leg swelling and pain Narrative: Mr Kang is a 70 year old male with PMHx of chronic combined systolic and R-sided CHF (LVEF of 40-45% by echo in 01/2020), pulmonary hypertension, CAD, AFib not on anticoagulation, h/o esophageal ca s/p esophagectomy, GI bleeding in 04/2021, who presented to [facility] ED today c/o BLE swelling and pain on ambulation. The swelling has been going on for a week and a half, he states, but the pain started today. The patient endorses a chronic nonproductive cough. He denies orthopnea. He states he does not normally limit his salt intake and even puts salt on apples that he has been eating a lot lately. He otherwise gets his meals from [employer]. He states his last alcoholic beverage was 3-4 months ago. ER workup was c/w acute exacerbation of CHF. He was treated with IV lasix 40 mg followed by IV bumex 2 mg. D-dimer was normal for age. His O2 sats were 100% on RA. Observation on hospitalist service for further diuresis was requested. Of note, his EGD on 04/15/2021 did not show active bleeding, but revealed friable gastric mucosa, for which he was placed on BID protonix at that time. Review of Systems All systems reviewed & are unremarkable except as noted in HPI and below PFSH All Active Problems (Updated 06/23/21 @ 22:23 by Shakila Mayberry MD) Acute on chronic anemia (Acute) Acute on chronic systolic CHF (congestive heart failure) (Acute) CHF, acute on chronic (Acute) Hypophosphatemia (Acute) Hypokalemia (Acute) Hypervitaminosis D (Acute) Anemia associated with acute blood loss (Acute) Discharge planning issues (Acute) DVT prophylaxis (Acute) Failure to thrive (Acute) Encephalopathy acute (Acute) GI bleeding (Chronic) Malnutrition (Acute) Rib fractures (Acute) COVID-19 (Acute) AMS (altered mental status) (Acute) Hematoma (Acute) Neck pain (Acute) Pain, dental (Acute) Acute lymphadenitis of neck (Acute) Constipation (Acute) Bladder wall thickening (Acute) Colon wall thickening (Acute) Fatigue (Acute) Altered mental status (Acute) Shortness of breath (Acute) Abdominal pain (Acute) COVID-19 (Acute) Hypokalemia (Acute) Mild bibasilar atelectasis (Acute) Confusion state (Acute) Alcohol abuse (Chronic) Tricuspid regurgitation (Chronic) Pulmonary hypertension (Chronic) Bilateral lower extremity edema (Acute) Acute on chronic diastolic (congestive) heart failure (Acute) CAD (coronary artery disease) (Chronic) Afib (Chronic) Hypertension (Chronic) Encounter for colorectal cancer screening (Acute) Hydrocele, right (Acute 01/23/16) Epididymitis, right (Acute 08/02/16) Cerumen impaction (Acute) Medical History Adenocarcinoma of esophagus Diabetes mellitus Difficulty reading Essential hypertension GERD (gastroesophageal reflux disease) GI bleed Hyperlipidemia Pancreatitis Solitary pulmonary nodule Tobacco abuse Weight loss Surgical History cardiac cath Coronary Artery Bypass Gaft (CABG) EGD - IV Sedation Esophagectomy H/O colonoscopy (2007) H/O colonoscopy (04/14/18) dr geller, sigmoid diverticulosis, repeat 10 years History of esophagogastroduodenoscopy (EGD) (09/2017) History of hydrocelectomy History of right inguinal hernia repair repair times two sugrical flap of unhealing wound Family History Mother No problems noted. Father No problems noted. Social History Smoking/Tobacco Use Status: Current-Occasional Tobacco Type: cigarettes Smoking packs per day: 1 Smoking cigarettes per day: 20.0 Years smoked: 50 Smoking pack-years: 50.00 Smoking risk assessment performed?: Yes Alcohol Intake: current Alcohol Intake frequency: 0-2 drinks per day Alcohol type: beer Drug use: Never Substance use type: does not use What type of physical activity do you participate in: none Do you feel safe at home: Yes Do you feel safe in your relationship?: Yes Meds Allergies and Home Medications Allergies Allergy/AdvReac Type Severity Reaction Status Date / Time No Known Allergies Allergy Verified 04/10/21 13:06 Home Medications Medication Instructions Recorded Confirmed Type bupropion HCl (smoking deter) 150 mg PO BID 08/04/12 06/23/21 History folic acid 1 mg PO DAILY 08/04/12 06/23/21 History aspirin [Ecotrin Low Strength] 81 mg PO DAILY 04/09/13 06/23/21 History atorvastatin [Lipitor] 10 mg PO HS 01/25/15 06/23/21 History cholecalciferol (vitamin D3) 2,000 units PO DAILY 04/12/16 06/23/21 History nitroglycerin [Nitrostat] 0.4 mg SUBLINGUAL . DIRECTED PRN 04/12/16 06/23/21 History pantoprazole 40 mg PO DAILY 01/15/17 06/23/21 History lidocaine 5 % topical cream 1 applic TP QID 02/10/18 06/23/21 History multivitamin 1 cap PO DAILY 02/10/18 06/23/21 History sucralfate 100 mg/mL oral 10 ml PO QID 02/10/18 06/23/21 History suspension metoprolol tartrate 12.5 mg PO BID 04/12/18 06/23/21 History ipratropium 20 mcg-albuterol 100 2 puff IH TID 05/02/19 06/23/21 History mcg/actuation mist for inhalation Ensure Original See Rx Instructions .ROUTE .COMPLEX 01/15/20 06/23/21 History bumetanide 2 mg PO BID #20 tab 01/15/20 06/23/21 Rx gabapentin 300 mg PO TID 01/15/20 06/23/21 History hydrocodone-acetaminophen 1 tab PO TID 07/09/20 06/23/21 History spironolactone 25 mg PO DAILY 07/10/20 06/23/21 History ferrous sulfate [FeroSul] 325 mg PO DAILY 03/05/21 06/23/21 History tamsulosin 0.4 mg PO QHS 03/05/21 06/23/21 History tiotropium bromide 18 mcg INHALATION DAILY 03/05/21 06/23/21 History Exam Narrative Exam Narrative: General: Frail middle-aged male who is soft spoken, A&Ox3 (has difficulty naming the exact date and initially says 2001 for the year), no dyspnea/tachypnea/cyanosis on RA, speaking in short sentences but not because of shortness of breath. Neurological: A&Ox3, forgetful, appears distracted Psychiatric: Calm/cooperative, appropriate speech pattern/content Skin: Multiple small ecchymoses on BUE/BLEs HEENT: Atraumatic, normocephalic, EOMI, dry MM, clear oropharynx, no submandibular or cervical lymphadenopathy, no goiter or JVD Cardiovascular: RRR, no m/r/g Lungs: coarse breath sounds B, but no rales Gastrointestinal: soft, nontender, nondistended; ventral hernia Genitourinary: deferred; urine in the urinal is diluted, very light yellow Extremities: 3+ BLE edema, TTP. I am unable to palpate pedal pulses due to edema. Results Imaging Additional studies: EKG: Aflutter, HR 93, no acute ischemia, nonspecific ST-T changes. CXR: 1. Chronic lung disease. 2. Multifocal pneumonia and/or edema. Labs Result diagrams: 06/23/21 17:15 06/23/21 17:15 Labs: Laboratory Results - last 24 hr 06/23/21 06/23/21 06/23/21 17:15 17:15 19:55 WBC 7.66 RBC 3.41 L Hgb 9.8 L Hct 31.1 L MCV 91.2 MCH 28.7 MCHC 31.5 L RDW 15.0 H Plt Count 255 MPV 9.0 Immature Gran % 1.0 Neutrophils % 73.5 Lymphocytes % 13.1 Monocytes % 11.0 Eosinophils % 1.0 Basophils % 0.4 Nucleated RBC % 0 Absolute Neutrophils 5.63 Absolute Lymphocytes 1.00 L Absolute Monocytes 0.84 H Absolute Eosinophils 0.08 Absolute Basophils 0.03 D-Dimer Sodium 136 Potassium 4.2 Chloride 103 Carbon Dioxide 24.6 Anion Gap 8.4 BUN 50 H Creatinine 1.2 Estimated GFR/1.73 m2 59.86 Glucose 110 H Calcium 8.5 Magnesium 2.3 Total Bilirubin 0.3 AST 18 ALT 19 Alkaline Phosphatase 152 H Troponin I < 50 NT-Pro-B Natriuret Pep 6158 H Total Protein 7.0 Albumin 2.8 L COVID-19 Source Nasal/Nares SARS-CoV-2 (PCR) Negative Influenza Type A (PCR) Negative Influenza Type B (PCR) Negative RSV (PCR) Negative 06/23/21 20:00 WBC RBC Hgb Hct MCV MCH MCHC RDW Plt Count MPV Immature Gran % Neutrophils % Lymphocytes % Monocytes % Eosinophils % Basophils % Nucleated RBC % Absolute Neutrophils Absolute Lymphocytes Absolute Monocytes Absolute Eosinophils Absolute Basophils D-Dimer 656 H Sodium Potassium Chloride Carbon Dioxide Anion Gap BUN Creatinine Estimated GFR/1.73 m2 Glucose Calcium Magnesium Total Bilirubin AST ALT Alkaline Phosphatase Troponin I NT-Pro-B Natriuret Pep Total Protein Albumin COVID-19 Source SARS-CoV-2 (PCR) Influenza Type A (PCR) Influenza Type B (PCR) RSV (PCR) Last Vital Signs Temp 36.6 C 06/23/21 20:50 Pulse 91 H 06/23/21 20:50 Resp 16 06/23/21 20:50 BP 115/72 06/23/21 20:50 Pulse Ox 100 06/23/21 20:50 PAWSS Have you Been Recently Intoxicated or Drunk Within the Last 30 days?: No Have you Ever Experienced Previous Episodes of Alcohol Withdrawal?: No Have you ever Experienced Withdrawal Seizures?: No Have you ever Experienced Delirium Tremens(DT)s?: No Have you ever undergone Alcohol Rehabilitation Treatment (i.e, inpt ot outpatient treatment programs)?: No Have you ever Experienced Blackouts?: No Have you ever Combined Alcohol with other Downers within the last 90 days?: No Have you ever Combined Alcohol with any other Substance of Abuse during the last 90 days?: No Positive Blood Alcohol level on Presentation? [PCS.BAL]: No Evidence of Increased Autonomic Activity (i.e. HR>120, tremor, sweating, agitation, nausea)?: No Result: 0
[2021-06-23] MEDS: HYDROcodone 10/Acetaminophen 325 TAB PO (22:41)
[2021-06-23] MEDS: Metoprolol 12.5 MG TAB PO (22:41)
[2021-06-23] MEDS: Sucralfate 1 GM TAB PO (22:41)
[2021-06-23] MEDS: buPROPion-CR 150 MG TABCR PO (22:41)
[2021-06-23] MEDS: Tamsulosin 0.4 MG CAPCR PO (22:41)
[2021-06-24 00:13] VITALS: PULSE 89
[2021-06-24 01:24] LABS: Bilirubin Negative (Negative); Blood Negative (Negative); Clarity Clear (Clear); Glucose Negative (Negative); Ketones Negative (Negative); Leukocyte Esterase Negative (Negative); Nitrite Negative (Negative); Specific Gravity 1.015 (1.005-1.025); Urobilinogen 0.2 EU/dL (Up TO 0.2)
[2021-06-24 03:05] VITALS: BP 95/61; PULSE 93; RESP 16; TEMP 36.5; O2SAT 93
[2021-06-24 07:35] LABS: Abs Immature Grans 0.03 10^3/uL (0.0-0.06); Absolute Basophil Count 0.02 10^3/uL (0.0-0.2); Absolute Eosinophil Count 0.07 10^3/uL (0.0-0.7); Absolute Monocyte Count 0.61 10^3/uL (0.1-0.8); Absolute Neutrophil Count 4.99 10^3/uL (1.2-6.7); Basophils % 0.3; Eosinophils % 1.1; HCT 30.3 % (40.0-50.0); HGB 9.4 g/dL (13.5-17.5); Immature Grans % 0.5; Lymphocytes % 12.3; MCH 28.5 pg (27.0-33.0); MCV 91.8 fL (80-95); MPV 9.4 fL (8.0-11.0); Monocytes % 9.4; Neutrophils % 76.4; Nucleated RBC 0 %; Platelet Count 231 10^3/uL (130-400); RDW 15.1 % (11.8-14.1); RDW-SD 50.5 fL; WBC 6.52 10^3/uL (4.4-10.8)
[2021-06-24 07:40] VITALS: BP 96/63; PULSE 79; RESP 18; TEMP 36.7; O2SAT 97
[2021-06-24 07:58] VITALS: PULSE 80
[2021-06-24 08:18] LABS: Hemoglobin A1C 5.8 % (<5.7)
[2021-06-24] MEDS: Tiotropium Bromide-Respimat 10 PUFF INH IH (08:27)
[2021-06-24] MEDS: Ipratropium/Albuterol 4 GM 120 PUFF INH IH (08:27)
[2021-06-24] MEDS: Ferrous Sulfate 325 MG TAB PO (08:36)
[2021-06-24] MEDS: HYDROcodone 10/Acetaminophen 325 TAB PO (08:36)
[2021-06-24] MEDS: Spironolactone 25 MG TAB PO (08:36)
[2021-06-24] MEDS: Aspirin E.C. 81 MG TABEC PO (08:36)
[2021-06-24] MEDS: Pantoprazole 40 MG TABCR PO (08:36)
[2021-06-24] MEDS: Folic Acid 1 MG TAB PO (08:36)
[2021-06-24] MEDS: Cholecalciferol (Vitamin D3) 1,000 UNIT TAB 2000 UNITS PO (08:36)
[2021-06-24 08:37] LABS: Anion Gap 5.9 mmol/L (3-11); BUN 46 mg/dL (7-18); CO2 27.1 mmol/L (21.0-32.0); CREATININE 1.2 mg/dL (0.70-1.30); Calcium 8.1 mg/dL (8.5-10.1); Chloride 102 mmol/L (98-107); Estimated GFR 59.86 (mL/min/1.73m2); Ferritin 19 ng/mL (26-388); Glucose 86 mg/dL (74-106); Iron 21 ug/dL (65-175); Sodium 135 mmol/L (136-145); Total Iron Binding Capacity 326 ug/dL (250-450); Transferrin Sat 6 % (20-55)
[2021-06-24] MEDS: buPROPion-CR 150 MG TABCR PO (08:37)
[2021-06-24] MEDS: Gabapentin 300 MG CAP PO (08:37)
[2021-06-24] MEDS: Multivitamin TAB 1 TAB PO (08:37)
[2021-06-24] MEDS: Sucralfate 1 GM TAB PO ×2 (08:37→11:29)
[2021-06-24] MEDS: Metoprolol 12.5 MG TAB PO (08:37)
[2021-06-24 08:39] LABS: Folate > 20.0 ng/mL (8.6-20.0); TSH (W/Ref FT4) 2.06 uIU/mL (0.36-3.74); Vitamin B12 481 pg/mL (193-986)
--- NOTE | 2021-06-24 10:13 | PDOC.CMIN ---
- If Service Date Differs Date of service: 06/24/21 Time of Service: 10:13 Care Management Initial Assess REASON FOR HOSPITALIZATION:: CHF PAST MEDICAL HISTORY/PAST SURGICAL HISTORY:: All Active Problems (Updated 06/23/21 @ 22:23 by Shakila Mayberry MD). Acute on chronic anemia (Acute). Acute on chronic systolic CHF (congestive heart failure) (Acute). CHF, acute on chronic (Acute). Hypophosphatemia (Acute). Hypokalemia (Acute). Hypervitaminosis D (Acute). Anemia associated with acute blood loss (Acute). Discharge planning issues (Acute). DVT prophylaxis (Acute). Failure to thrive (Acute). Encephalopathy acute (Acute). GI bleeding (Chronic). Malnutrition (Acute). Rib fractures (Acute). COVID-19 (Acute). AMS (altered mental status) (Acute). Hematoma (Acute). Neck pain (Acute). Pain, dental (Acute). Acute lymphadenitis of neck (Acute). Constipation (Acute). Bladder wall thickening (Acute). Colon wall thickening (Acute). Fatigue (Acute). Altered mental status (Acute). Shortness of breath (Acute). Abdominal pain (Acute). COVID-19 (Acute). Hypokalemia (Acute). Mild bibasilar atelectasis (Acute). Confusion state (Acute). Alcohol abuse (Chronic). Tricuspid regurgitation (Chronic). Pulmonary hypertension (Chronic). Bilateral lower extremity edema (Acute). Acute on chronic diastolic (congestive) heart failure (Acute). CAD (coronary artery disease) (Chronic). Afib (Chronic). Hypertension (Chronic). Encounter for colorectal cancer screening (Acute). Hydrocele, right (Acute 01/23/16). Epididymitis, right (Acute 08/02/16). Cerumen impaction (Acute). Medical History . Adenocarcinoma of esophagus. Diabetes mellitus. Difficulty reading. Essential hypertension. GERD (gastroesophageal reflux disease). GI bleed. Hyperlipidemia. Pancreatitis. Solitary pulmonary nodule. Tobacco abuse. Weight loss. Surgical History . cardiac cath. Coronary Artery Bypass Gaft (CABG). EGD - IV Sedation. Esophagectomy. H/O colonoscopy (2007). H/O colonoscopy (04/14/18). dr geller, sigmoid diverticulosis, repeat 10 years. History of esophagogastroduodenoscopy (EGD) (09/2017). History of hydrocelectomy. History of right inguinal hernia repair. repair times two. sugrical flap of unhealing wound PREVIOUS FUNCTIONAL STATUS/SOCIAL/FAMILY SUPPORTS:: Nain resides in [facility] with his roomate, Lyudmila. He is independent at baseline in the community with ongoing medical issues including CHF and COPD CURRENT FUNCTIONAL STATUS:: Ilia was dressed and ready to leave when CM met with him. He will transport via [facility] coordinated by CM. No new services or change in plan. ADVANCE DIRECTIVES:: On file. Chirssy Stewart (sister) [facility] with 2 alternates listed Has patient been provided with info about the portal/API?: Yes Did the patient sign up for the portal?: No CODE STATUS:: Full Code INSURANCE COVERAGE / FINANCIAL ISSUES:: Medicare. Medicaid PRIMARY CARE PHYSICIAN:: Silvina Perdue POTENTIAL DISCHARGE NEEDS:: follow up with PCP and plan of care PATIENT/FAMILY EDUCATION NEEDS:: review of discharge instructions, medications, diet, limitations, Ask Me Three TRANSPORTATION:: via private vehicle with family PLAN:: Ilia will likely be discharged home with no new services. He will follow up with his community providers and plan of care and transport with family.
--- NOTE | 2021-06-24 10:40 | IN_ITS ---
Date of service: 06/24/21 Time of Service: 10:40 PT Notes Visit Reasons: Acute on Chronic Systolic CHF Physical Therapy Inpatient Initial Evaluation Date: 06/24/2021 Referring Doctor: Shakila Mayberry MD PT Orders: PT CONSULT: Limited ability Precautions: Fall. Standard. Activity as tolerated. Patient Profile/Admitting Diagnosis: Ilia is a 70-year-old male who presented to the ED on 06/23/2021 due to bilateral leg swelling, pain on ambulation, and non-productive cough. Patient is diagnosed with acute on chronic congestive heart failure with LVEF of 40 to 45% as of last echo, pulmonary hypertension, atrial fibrillation, and acute on chronic anemia. PMHX: All Active Problems (Updated 06/23/21 @ 22:23 by Shakila Mayberry MD) Acute on chronic anemia (Acute) Acute on chronic systolic CHF (congestive heart failure) (Acute) CHF, acute on chronic (Acute) Hypophosphatemia (Acute) Hypokalemia (Acute) Hypervitaminosis D (Acute) Anemia associated with acute blood loss (Acute) Discharge planning issues (Acute) DVT prophylaxis (Acute) Failure to thrive (Acute) Encephalopathy acute (Acute) GI bleeding (Chronic) Malnutrition (Acute) Rib fractures (Acute) COVID-19 (Acute) AMS (altered mental status) (Acute) Hematoma (Acute) Neck pain (Acute) Pain, dental (Acute) Acute lymphadenitis of neck (Acute) Constipation (Acute) Bladder wall thickening (Acute) Colon wall thickening (Acute) Fatigue (Acute) Altered mental status (Acute) Shortness of breath (Acute) Abdominal pain (Acute) COVID-19 (Acute) Hypokalemia (Acute) Mild bibasilar atelectasis (Acute) Confusion state (Acute) Alcohol abuse (Chronic) Tricuspid regurgitation (Chronic) Pulmonary hypertension (Chronic) Bilateral lower extremity edema (Acute) Acute on chronic diastolic (congestive) heart failure (Acute) CAD (coronary artery disease) (Chronic) Afib (Chronic) Hypertension (Chronic) Encounter for colorectal cancer screening (Acute) Hydrocele, right (Acute 01/23/16) Epididymitis, right (Acute 08/02/16) Cerumen impaction (Acute) Medical History Adenocarcinoma of esophagus Diabetes mellitus Difficulty reading Essential hypertension GERD (gastroesophageal reflux disease) GI bleed Hyperlipidemia Pancreatitis Solitary pulmonary nodule Tobacco abuse Weight loss Surgical History cardiac cath Coronary Artery Bypass Gaft (CABG) EGD - IV Sedation Esophagectomy H/O colonoscopy (2007) H/O colonoscopy (04/14/18) dr geller, sigmoid diverticulosis, repeat 10 years History of esophagogastroduodenoscopy (EGD) (09/2017) History of hydrocelectomy History of right inguinal hernia repair repair times two sugrical flap of unhealing wound Social History/Home Situation: Lives in a private home with 5 steps to enter. Has had 5 falls in the past [address] Single-point cane occasionally Equipment Owned/DME: [facility], Subjective: Agreeable to PT consult. Denies headache, chest pain, and dizziness throughout session. Objective: General Observation: Seated at edge of bed. Telemetry monitoring in place. Mental Status: Alert and oriented as to person, place, time, and purpose. Able to pay attention, focus, and respond appropriately. Pain: Denies Vital Signs: Within normal limits as monitored on telemetry ROM: Right Upper Extremity: Shoulder Flexion WFL. Shoulder abduction WFL. Elbow flexion WFL. Wrist flexion WFL. Functional opening and closing of hand WFL. Left Upper Extremity: Shoulder Flexion WFL. Shoulder abduction WFL. Elbow flexion WFL. Wrist flexion WFL. Functional opening and closing of hand WFL. Right Lower Extremity: Hip flexion WFL. Hip abduction WFL. Knee flexion WFL. Ankle dorsiflexion to neutral. Ankle plantarflexion WFL. Left Lower Extremity: Hip flexion WFL. Hip abduction WFL. Knee flexion WFL. Ankle dorsiflexion to neutral L. Ankle plantarflexion WFL. Strength: Right Upper Extremity: Shoulder flexors 4-/5. Shoulder abductors 4-/5. Elbow flexors 4-/5. Elbow extensors 4-/5. Meter Reading Clerk strong. Left Upper Extremity: Shoulder flexors 4-/5. Shoulder abductors 4-/5. Elbow flexors 4-/5. Elbow extensors 4-/5. Meter Reading Clerk strong. Right Lower Extremity: Hip flexors 3/5. Hip abductors 3/5. Knee flexors 4-/5. Knee extensors 4-/5. Ankle dorsiflexors 3-/5. Ankle plantarflexors 4-/5. Left Lower Extremity: Hip flexors 3/5. Hip abductors 3/5. Knee flexors 4-/5. Knee extensors 4-/5. Ankle dorsiflexors 3-/5. Ankle plantarflexors 4-/5. Bed Mobility/Transfers: Supine to sit with supervision Sit to supine with supervision Sit to stand with supervision Stand to sit with contact-guard assist Bed to reclining chair with contact-guard assist Gait: Instructed patient with level surface ambulation of 30 feet requiring contact-guard assist. Glenys decreased. Step height decreased. Step length decreased. Trunk anteroflexed (chronic). Mild shortness of breath. Balance: Static Sitting: Normal Dynamic Sitting: Normal Static Standing: Fair Dynamic Standing: Fair Special Tests: Mobility Limitations Standardized Measure [facility] AM-PAC 6 clicks Basic Mobility Inpatient Short Form: Raw Score: 18 CMS Score: 47% deficit Informed Consent/Education: Patient was instructed in purpose of PT consult and plan of care. Agreeable to proceed with established PT POC to achieve personal goals. Assessment: Ilia requires the use of a front wheeled walker and assistance of 1 person for all mobility ADL performance due to admitting diagnoses above. Patient presents with clinical signs and symptoms consistent with current/admitting diagnoses that have resulted to mobility limitations, gait instability, generalized weakness, and overall ADL decline as demonstrated by the following impairment level findings: 1. Decreased strength to BUE/LE [] major muscle groups 2. Impaired standing balance 3. Impaired activity tolerance 4. Shortness of breath 5. Swelling Impairments are contributing to the following functional limitations: 1. Decline in bed mobility skills 2. Decline in transfer skills 3. Difficulty with ambulation without assistive device and physical assistance 4. Increased completion time for mobility ADL performance 5. Increased risk for falls 6. Difficulty with managing steps alone safely Patient is assessed as a 84129 moderate complexity based on the following: History: 70-year-old male with past medical history as indicated above Examination: Demonstrable impairment in strength, balance, and mobility level with underlying impairments and functional limitations as exhibited above as well as deficit score of 47% utilizing the [facility] Mobility Inpatient Short Form Presentation: Evolving Decision Makin moderate complexity Goals: Goals X1 week 1. Supine-Sit independent 2. Sit-Supine independent 3. Sit-Stand independent 4. Stand-Sit independent with FWW 5. Bed-Chair independent with FWW 6. Chair-Bed independent with FWW 7. Independent gait on level surface with use of FWW for at least 300 feet without report of pain nor dyspnea 8. Independent stair negotiation while holding onto 1 rail for at least 4 steps without report of pain nor dyspnea 9. Independent with home exercise program 10. Good static and dynamic standing balance/tolerance Plan of Care/Treatment Plan: 1-2x/day, 7 days/week x 1 week. Plan of care has been reviewed with the ENVIRONMENTAL PROTECTION INSPECTOR providing the service under Physical Therapy direction. Initiate Physical Therapy intervention for pain management as needed, strengthening, bed mobility, transfers, gait, stairs, balance training, and use of assistive device. DISCHARGE RECOMMENDATIONS: [] Home with no services [] [X] Home with services. Patient will benefit from home health PT services in order to progress mobility level using least restrictive assistive ambulatory device, assess home safety, identify additional equipment needs, and establish a functional maintenance program that will increase ability of patient to remain at home. [] Home with outpatient PT [] [] SNF for continued rehabilitation [] [] Care Home Care [] [] SNF versus LTC based on ability to participate and progress [] TREATMENT CODE/TIME: 9716 2 x 20 minutes, 9753 0 x 13 minutes beginning at 10:40 AM. Thank you for the opportunity to participate in the care of this patient. Savanna Banks PT, DPT, CLT [facility] [place], [place]
[2021-06-24] MEDS: Normal Saline Flush 10 ML SYR IVP (11:28)
[2021-06-24] MEDS: Bumetanide 1 MG/4 ML VIAL 2 MG IVP (11:29)
[2021-06-24 11:38] VITALS: BP 101/69; PULSE 76; RESP 17; TEMP 36.1; O2SAT 99
--- NOTE | 2021-06-24 11:43 | DSE_ITS ---
Date of service: 06/24/21 Time of Service: 11:44 DS: Diagnosis Discharge Diagnosis (1) Acute on chronic systolic CHF (congestive heart failure): Status: Acute (2) Pulmonary hypertension: Status: Chronic (3) Afib: Status: Chronic (4) Acute on chronic anemia: Status: Acute (5) History of GI bleed: Status: Resolved Discharge Plan Disposition Patient Disposition: HOME Condition: Improving Discharge Details Reason For Visit: Acute on Chronic Systolic CHF Admit Date/Time: 06/23/21 19:42 Admit Provider: Shakila Mayberry Attending Provider: Shakila Mayberry Primary Care Provider: Silvina Perdue [facility] Course Hospital Course: Mr Kang is a 70 year old male with PMHx of 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 The swelling has been going on for a week and a half, he states, but the pain started today. The patient endorses a chronic nonproductive cough. He denies orthopnea. He states he does not normally limit his salt intake and even puts salt on apples that he has been eating a lot lately. He otherwise gets his meals from [employer]. He states his last alcoholic beverage was 3-4 months ago. ER workup was c/w acute exacerbation of CHF. He was treated with IV lasix 40 mg followed by IV bumex 2 mg. D-dimer was normal for age. His O2 sats were 100% on RA. Observation on hospitalist service for further diuresis was requested. Of note, his EGD on 04/15/2021 did not show active bleeding, but revealed friable gastric mucosa, for which he was placed on BID protonix at that time. He was referred to observation on telemetry for further diuresis. He remained stable overnight, reporting significant decrease in edema. He denies any respiratory c/o and has no oxygen requirements. his legs have been wrapped with nas wraps. he is eating and drinking. He acknowledges he needs to comply with salt restriction but has not, heavily salting his apples per report. He has completed an echocardiogram but results are still pending. He feels much improved and would like to be discharged to home to follow up outpatient with his pcp. we will increase his bumex for 3 more days, recheck labs tuesday and defer further recommendations to pcp. discharge discussed with DR Navarro. Home Meds and New Rx's Prescriptions: Continued sucralfate [Carafate] 100 mg/mL suspension 10 ml PO QID RF: 0 lidocaine 5 % cream 1 applic TP QID RF: 0 multivitamin capsule 1 cap PO DAILY RF: 0 Combivent Respimat 20-100 mcg/actuation mist 2 puff IH TID RF: 0 folic acid 1 MG tablet 1 mg PO DAILY RF: 0 bupropion HCl (smoking deter) 150 MG tablet extended release 12 hr 150 mg PO BID RF: 0 aspirin [Ecotrin Low Strength] 81 MG tablet,delayed release (DR/EC) 81 mg PO DAILY RF: 0 atorvastatin [Lipitor] 10 MG tablet 10 mg PO HS RF: 0 nitroglycerin [Nitrostat] 0.4 MG tablet, sublingual 0.4 mg Sublingual . DIRECTED PRN (Reason: Chest Pain) RF: 0 cholecalciferol (vitamin D3) 1,000 UNITS tablet 2,000 units PO DAILY RF: 0 gabapentin 300 mg capsule 300 mg PO TID RF: 0 Ensure Original Liquid See Rx Instructions .ROUTE .COMPLEX RF: 0 hydrocodone-acetaminophen 10-325 mg tablet 1 tab PO TID RF: 0 spironolactone 25 mg tablet 25 mg PO DAILY RF: 0 pantoprazole 40 MG tablet,delayed release (DR/EC) 40 mg PO DAILY RF: 0 metoprolol tartrate 25 mg Tablet 12.5 mg PO BID RF: 0 tamsulosin 0.4 mg capsule 0.4 mg PO QHS RF: 0 ferrous sulfate [FeroSul] 325 mg (65 mg iron) tablet 325 mg PO DAILY RF: 0 tiotropium bromide 18 mcg Capsule, W/Inhalation Device 18 mcg INHALATION DAILY RF: 0 Changed bumetanide 2 mg tablet See Rx Instructions .ROUTE .COMPLEX Qty: 20 RF: 0 Discharge Instructions Instructions: Heart Failure (DC) Additional Instructions: take 2 (4 mg) bumex in the morning and 1 (2 mg) in the afternoon until Tuesday, then resume 1 tab (2 mg) twice daily. lab will be checked on Tuesday morning, Jun 29, further medication recommendation will be by your doctor. report increasing swelling or weight gain to your doctor. decrease salt intake. elevate and wrap legs during the day to keep swelling down. your echocardiogram results are not available at discharge. please check your results with your doctor. Referrals: Silvina Perdue MD [Primary Care Provider] - Activity:: elevate and wrap legs Equipment/Supplies:: No Equipment Needed Diet:: Low Sodium Discharge Orders Discharge Orders: Discharge Order (Routine); Ordered 06/24/21 Ordered By: Kassandra Esparza Other Ambulatory Orders: Basic Metabolic Panel (Routine) Timeframe: [id number] Location: None Selected Ordered By: Kassandra Esparza DS: Summary Time Spent with Patient providing and/or coordinating discharge services: Greater than 30 minutes Status at Discharge Functional status at discharge: independent ambulation Overall status at discharge: patient is progressing back to baseline Mental Status: mental status grossly normal Speech and Movement: speech and movement normal Mood: congruent mood Affect: normal affect Exam Const General: cooperative, comfortable, no acute distress and ill appearing chronically Nutritional Appearance: thin Orientation: alert, awake and oriented x3 Limitations: mental status not altered Neck Neck: normal visual inspection, full ROM and trachea midline Chest Chest: normal inspection of the chest Resp Effort & Inspection: normal respiratory effort and able to speak in complete sentences Auscultation: clear to auscultation bilaterally Cardio Jugular venous pressure: no JVD Rate: regular rate GI Inspection: normal to inspection Palpation: soft and nontender Auscultation: normal bowel sounds Skin General skin exam: no rashes or lesions noted Neuro General: patient alert, patient awake, patient oriented x3, tone normal and moves all extremities Extrem General: edema Laterality: bilateral (3+ from knee down) Psych Mental Status: mental status grossly normal Speech and Movement: speech and movement normal Mood: congruent mood Affect: normal affect DS: Data Vitals/I&O Vitals and I&O: Vital Signs Temperature 36.1 C L 06/24/21 11:38 Temperature Source Tympanic 06/24/21 11:38 Pulse 76 06/24/21 11:38 Pulse Rhythm Irregular 06/24/21 09:05 Pulse 82 06/23/21 20:20 Respiratory Rate 17 06/24/21 11:38 Respiratory Effort Non-Labored 06/24/21 09:05 Respiratory Depth Normal 06/24/21 09:05 Respiratory Pattern Normal 06/24/21 09:05 Blood Pressure 101/69 06/24/21 11:38 Blood Pressure Mean 73 06/23/21 20:15 Blood Pressure Position Sitting 06/23/21 16:33 Pulse Oximetry 99 06/24/21 11:38 Oxygen Delivery Method Room Air 06/24/21 11:38 Oxygen Flow Rate 0 06/24/21 11:38 Pain Level 0 06/24/21 11:38 Comment 06/23/21 20:50 Intake & Output 06/23/21 06/23/21 06/24/21 11:59 23:59 11:59 Output Total 1100 / 1100 700 / 700 Balance -1100 / -1100 -700 / -700 Weight 59 kg 55.5 kg Output: Urine 1100 / 1100 700 / 700 Other: Urine Color Pale Pale Yellow Yellow Urine Appearance Clear Clear Urine Odor None None Voiding Methods Urinal Urinal Data Completed and Pending Labs on day of discharge: Labs from last 24 hours 06/24/21 06/24/21 06/24/21 07:00 07:00 07:00 WBC RBC Hgb Hct MCV MCH MCHC RDW Plt Count MPV Immature Gran % Neutrophils % Lymphocytes % Monocytes % Eosinophils % Basophils % Nucleated RBC % Absolute Neutrophils Absolute Lymphocytes Absolute Monocytes Absolute Eosinophils Absolute Basophils D-Dimer Sodium Potassium Chloride Carbon Dioxide Anion Gap BUN Creatinine Estimated GFR/1.73 m2 Glucose Hemoglobin A1c 5.8 H Calcium Magnesium Iron 21 L TIBC 326 Transferrin % Sat 6 L Ferritin Total Bilirubin AST ALT Alkaline Phosphatase Troponin I NT-Pro-B Natriuret Pep Total Protein Albumin Vitamin B12 481 Folate > 20.0 H TSH 2.06 Urine Color Urine Clarity Urine pH Ur Specific [place] Urine Protein Urine Ketones Urine Blood Urine Nitrite Urine Bilirubin Urine Urobilinogen Ur Leukocyte Esterase Urine Glucose COVID-19 Source SARS-CoV-2 (PCR) Influenza Type A (PCR) Influenza Type B (PCR) RSV (PCR) 06/24/21 06/24/21 06/24/21 07:00 07:00 00:53 WBC 6.52 RBC 3.30 L Hgb 9.4 L Hct 30.3 L MCV 91.8 MCH 28.5 MCHC 31.0 L RDW 15.1 H Plt Count 231 MPV 9.4 Immature Gran % 0.5 Neutrophils % 76.4 Lymphocytes % 12.3 Monocytes % 9.4 Eosinophils % 1.1 Basophils % 0.3 Nucleated RBC % 0 Absolute Neutrophils 4.99 Absolute Lymphocytes 0.80 L Absolute Monocytes 0.61 Absolute Eosinophils 0.07 Absolute Basophils 0.02 D-Dimer Sodium 135 L Potassium 4.0 Chloride 102 Carbon Dioxide 27.1 Anion Gap 5.9 BUN 46 H Creatinine 1.2 Estimated GFR/1.73 m2 59.86 Glucose 86 Hemoglobin A1c Calcium 8.1 L Magnesium 2.0 Iron TIBC Transferrin % Sat Ferritin 19 L Total Bilirubin AST ALT Alkaline Phosphatase Troponin I NT-Pro-B Natriuret Pep Total Protein Albumin Vitamin B12 Folate TSH Urine Color Yellow Urine Clarity Clear Urine pH 6.0 Ur Specific [place] 1.015 Urine Protein Negative Urine Ketones Negative Urine Blood Negative Urine Nitrite Negative Urine Bilirubin Negative Urine Urobilinogen 0.2 Ur Leukocyte Esterase Negative Urine Glucose Negative COVID-19 Source SARS-CoV-2 (PCR) Influenza Type A (PCR) Influenza Type B (PCR) RSV (PCR) 06/23/21 06/23/21 06/23/21 20:00 19:55 17:15 WBC 7.66 RBC 3.41 L Hgb 9.8 L Hct 31.1 L MCV 91.2 MCH 28.7 MCHC 31.5 L RDW 15.0 H Plt Count 255 MPV 9.0 Immature Gran % 1.0 Neutrophils % 73.5 Lymphocytes % 13.1 Monocytes % 11.0 Eosinophils % 1.0 Basophils % 0.4 Nucleated RBC % 0 Absolute Neutrophils 5.63 Absolute Lymphocytes 1.00 L Absolute Monocytes 0.84 H Absolute Eosinophils 0.08 Absolute Basophils 0.03 D-Dimer 656 H Sodium Potassium Chloride Carbon Dioxide Anion Gap BUN Creatinine Estimated GFR/1.73 m2 Glucose Hemoglobin A1c Calcium Magnesium Iron TIBC Transferrin % Sat Ferritin Total Bilirubin AST ALT Alkaline Phosphatase Troponin I NT-Pro-B Natriuret Pep Total Protein Albumin Vitamin B12 Folate TSH Urine Color Urine Clarity Urine pH Ur Specific [place] Urine Protein Urine Ketones Urine Blood Urine Nitrite Urine Bilirubin Urine Urobilinogen Ur Leukocyte Esterase Urine Glucose COVID-19 Source Nasal/Nares SARS-CoV-2 (PCR) Negative Influenza Type A (PCR) Negative Influenza Type B (PCR) Negative RSV (PCR) Negative 06/23/21 17:15 WBC RBC Hgb Hct MCV MCH MCHC RDW Plt Count MPV Immature Gran % Neutrophils % Lymphocytes % Monocytes % Eosinophils % Basophils % Nucleated RBC % Absolute Neutrophils Absolute Lymphocytes Absolute Monocytes Absolute Eosinophils Absolute Basophils D-Dimer Sodium 136 Potassium 4.2 Chloride 103 Carbon Dioxide 24.6 Anion Gap 8.4 BUN 50 H Creatinine 1.2 Estimated GFR/1.73 m2 59.86 Glucose 110 H Hemoglobin A1c Calcium 8.5 Magnesium 2.3 Iron TIBC Transferrin % Sat Ferritin Total Bilirubin 0.3 AST 18 ALT 19 Alkaline Phosphatase 152 H Troponin I < 50 NT-Pro-B Natriuret Pep 6158 H Total Protein 7.0 Albumin 2.8 L Vitamin B12 Folate TSH Urine Color Urine Clarity Urine pH Ur Specific [place] Urine Protein Urine Ketones Urine Blood Urine Nitrite Urine Bilirubin Urine Urobilinogen Ur Leukocyte Esterase Urine Glucose COVID-19 Source SARS-CoV-2 (PCR) Influenza Type A (PCR) Influenza Type B (PCR) RSV (PCR) PFSH All Active Problems (Updated 06/23/21 @ 22:23 by Shakila Mayberry MD) Acute on chronic anemia (Acute) Acute on chronic systolic CHF (congestive heart failure) (Acute) CHF, acute on chronic (Acute) Hypophosphatemia (Acute) Hypokalemia (Acute) Hypervitaminosis D (Acute) Anemia associated with acute blood loss (Acute) Discharge planning issues (Acute) DVT prophylaxis (Acute) Failure to thrive (Acute) Encephalopathy acute (Acute) GI bleeding (Chronic) Malnutrition (Acute) Rib fractures (Acute) COVID-19 (Acute) AMS (altered mental status) (Acute) Hematoma (Acute) Neck pain (Acute) Pain, dental (Acute) Acute lymphadenitis of neck (Acute) Constipation (Acute) Bladder wall thickening (Acute) Colon wall thickening (Acute) Fatigue (Acute) Altered mental status (Acute) Shortness of breath (Acute) Abdominal pain (Acute) COVID-19 (Acute) Hypokalemia (Acute) Mild bibasilar atelectasis (Acute) Confusion state (Acute) Alcohol abuse (Chronic) Tricuspid regurgitation (Chronic) Pulmonary hypertension (Chronic) Bilateral lower extremity edema (Acute) Acute on chronic diastolic (congestive) heart failure (Acute) CAD (coronary artery disease) (Chronic) Afib (Chronic) Hypertension (Chronic) Encounter for colorectal cancer screening (Acute) Hydrocele, right (Acute 01/23/16) Epididymitis, right (Acute 08/02/16) Cerumen impaction (Acute) Medical History Adenocarcinoma of esophagus Diabetes mellitus Difficulty reading Essential hypertension GERD (gastroesophageal reflux disease) GI bleed Hyperlipidemia Pancreatitis Solitary pulmonary nodule Tobacco abuse Weight loss Surgical History cardiac cath Coronary Artery Bypass Gaft (CABG) EGD - IV Sedation Esophagectomy H/O colonoscopy (2007) H/O colonoscopy (04/14/18) dr geller, sigmoid diverticulosis, repeat 10 years History of esophagogastroduodenoscopy (EGD) (09/2017) History of hydrocelectomy History of right inguinal hernia repair repair times two sugrical flap of unhealing wound Family History Mother No problems noted. Father No problems noted. Social History Smoking/Tobacco Use Status: Current-Occasional Tobacco Type: cigarettes Smoking packs per day: 1 Smoking cigarettes per day: 20.0 Years smoked: 50 Smoking pack- years: 50.00 Smoking risk assessment performed?: Yes Alcohol Intake: current Alcohol Intake frequency: 0-2 drinks per day Alcohol type: beer Drug use: Never Substance use type: does not use What type of physical activity do you participate in: none Do you feel safe at home: Yes Do you feel safe in your relationship?: Yes
--- NOTE | 2021-06-24 13:58 | PDOC.HHF2F ---
Home Health Certification Home Health Certification: 1. Encounter Date and Reason I certify that Nain Kang was seen by Kassandra Esparza on 06/24/21 and that I had a [id number] encounter with this patient that meets the physician face to face encounter requirements. 2. Clinical Findings Supporting Skilled Need and Homebound Status I certify that home health services are medically necessary, include either intermittent nursing home and/or physical/speech therapy, and that this patient is homebound in that absences from the home require considerable and taxing effort and are infrequent or of short duration, or are attributable to the need to receive medical care. [X] (a) Attached documentation from encounter provides clinical findings supporting skilled need and homebound status (including what assistance patient requires to leave the home). The encounter with the patient was in whole, or in part, for the following medical condition, which is the primary reason for home health care: Acute on Chronic Systolic CHF Physical Therapy: routine evaluation and management Homebound: patient is unable to safely leave the house unattended d/t unsteady gait, impaired transfers with ambulation dt/ pain and decreased strength and endurance. 3. Certification and Authentication I certify that I composed the above information based on my clinical judgment relating to this patient's medical condition and, if applicable, clinical findings communicated to me by the NPP or inpatient physician who performed the Home Health Referral. All further orders will be obtained through _Dr Silvina Perdue _(Community Based Physician - PCP)
--- NOTE | 2021-06-24 14:12 | PDOC.CMDIS ---
- If Service Date Differs Date of service: 06/24/21 Time of Service: 14:12 LACE Index Scoring Tool - Questions: Length of Stay (in days): 1 Acuity (Admit via E.D.?): Yes Comorbidities: Diabetes w/o Complication, Congestive Heart Failure E.D. Visits: 8 - Answers: Total Score: 11 Risk of Readmission: High Risk Care Management Discharge Reason for Hospitalization: CHF Discharge Plan: Ilia will be discharged home with no new services. He will follow up with his community providers and plan of care and transport with family. Patient/Family Education Needs: review of discharge instructions, medications, diet, limitations, Ask Me Three
--- NOTE | 2021-06-25 09:12 | INDS_ITS ---
Date of service: 06/25/21 PT Notes Visit Reasons: Acute on Chronic Systolic CHF Physical Therapy Inpatient Discharge Summary Date: 06/24/2021 Dates of Service: 06/24/2021 only This is a clinical summary of care provided for the duration of dates listed above. No charge was made in the completion of this documentation. Referring Doctor: Shakila Mayberry MD PT Orders: PT CONSULT: Limited ability Precautions: Fall. Standard. Activity as tolerated. Patient Profile/Admitting Diagnosis: Ilia is a 70-year-old male who presented to the ED on 06/23/2021 due to bilateral leg swelling, pain on ambulation, and non- productive cough. Patient is diagnosed with acute on chronic congestive heart failure with LVEF of 40 to 45% as of last echo, pulmonary hypertension, atrial fibrillation, and acute on chronic anemia. PMHX: All Active Problems (Updated 06/23/21 @ 22:23 by Shakila Mayberry MD) Acute on chronic anemia (Acute) Acute on chronic systolic CHF (congestive heart failure) (Acute) CHF, acute on chronic (Acute) Hypophosphatemia (Acute) Hypokalemia (Acute) Hypervitaminosis D (Acute) Anemia associated with acute blood loss (Acute) Discharge planning issues (Acute) DVT prophylaxis (Acute) Failure to thrive (Acute) Encephalopathy acute (Acute) GI bleeding (Chronic) Malnutrition (Acute) Rib fractures (Acute) COVID-19 (Acute) AMS (altered mental status) (Acute) Hematoma (Acute) Neck pain (Acute) Pain, dental (Acute) Acute lymphadenitis of neck (Acute) Constipation (Acute) Bladder wall thickening (Acute) Colon wall thickening (Acute) Fatigue (Acute) Altered mental status (Acute) Shortness of breath (Acute) Abdominal pain (Acute) COVID-19 (Acute) Hypokalemia (Acute) Mild bibasilar atelectasis (Acute) Confusion state (Acute) Alcohol abuse (Chronic) Tricuspid regurgitation (Chronic) Pulmonary hypertension (Chronic) Bilateral lower extremity edema (Acute) Acute on chronic diastolic (congestive) heart failure (Acute) CAD (coronary artery disease) (Chronic) Afib (Chronic) Hypertension (Chronic) Encounter for colorectal cancer screening (Acute) Hydrocele, right (Acute 01/23/16) Epididymitis, right (Acute 08/02/16) Cerumen impaction (Acute) Medical History Adenocarcinoma of esophagus Diabetes mellitus Difficulty reading Essential hypertension GERD (gastroesophageal reflux disease) GI bleed Hyperlipidemia Pancreatitis Solitary pulmonary nodule Tobacco abuse Weight loss Surgical History cardiac cath Coronary Artery Bypass Gaft (CABG) EGD - IV Sedation Esophagectomy H/O colonoscopy (2007) H/O colonoscopy (04/14/18) dr geller, sigmoid diverticulosis, repeat 10 years History of esophagogastroduodenoscopy (EGD) (09/2017) History of hydrocelectomy History of right inguinal hernia repair repair times two sugrical flap of unhealing wound Social History/Home Situation: Lives in a private home with 5 steps to enter. Has had 5 falls in the past [address] Single-point cane occasionally Equipment Owned/DME: [facility], [facility] Subjective: NT. See most recent ACCOUNTING SYSTEM EXPERT notes. Objective: General Observation: NT. See most recent ACCOUNTING SYSTEM EXPERT notes. Mental Status: NT. See most recent ACCOUNTING SYSTEM EXPERT notes. Pain: NT. See most recent ACCOUNTING SYSTEM EXPERT notes. Vital Signs: NT. See most recent ACCOUNTING SYSTEM EXPERT notes. ROM: Right Upper Extremity: Shoulder Flexion WFL. Shoulder abduction WFL. Elbow flexion WFL. Wrist flexion WFL. Functional opening and closing of hand WFL. Left Upper Extremity: Shoulder Flexion WFL. Shoulder abduction WFL. Elbow flexion WFL. Wrist flexion WFL. Functional opening and closing of hand WFL. Right Lower Extremity: Hip flexion WFL. Hip abduction WFL. Knee flexion WFL. Ankle dorsiflexion to neutral. Ankle plantarflexion WFL. Left Lower Extremity: Hip flexion WFL. Hip abduction WFL. Knee flexion WFL. Ankle dorsiflexion to neutral L. Ankle plantarflexion WFL. Strength: Right Upper Extremity: Shoulder flexors 4-/5. Shoulder abductors 4-/5. Elbow flexors 4-/5. Elbow extensors 4-/5. Shrinker strong. Left Upper Extremity: Shoulder flexors 4-/5. Shoulder abductors 4-/5. Elbow flexors 4-/5. Elbow extensors 4-/5. Shrinker strong. Right Lower Extremity: Hip flexors 3/5. Hip abductors 3/5. Knee flexors 4-/5. Knee extensors 4-/5. Ankle dorsiflexors 3-/5. Ankle plantarflexors 4-/5. Left Lower Extremity: Hip flexors 3/5. Hip abductors 3/5. Knee flexors 4-/5. Knee extensors 4-/5. Ankle dorsiflexors 3-/5. Ankle plantarflexors 4-/5. Bed Mobility/Transfers: Supine to sit with supervision Sit to supine with supervision Sit to stand with supervision Stand to sit with contact-guard assist Bed to reclining chair with contact-guard assist Gait: Instructed patient with level surface ambulation of 30 feet requiring contact-guard assist. Glenys decreased. Step height decreased. Step length decreased. Trunk anteroflexed (chronic). Mild shortness of breath. Balance: Static Sitting: Normal Dynamic Sitting: Normal Static Standing: Fair Dynamic Standing: Fair Assessment: Ilia requires the use of a front wheeled walker and assistance of 1 person for all mobility ADL performance due to admitting diagnoses above. Patient presents with clinical signs and symptoms consistent with current/admitting diagnoses that have resulted to mobility limitations, gait instability, generalized weakness, and overall ADL decline as demonstrated by the following impairment level findings: 1. Decreased strength to BUE/LE [] major muscle groups 2. Impaired standing balance 3. Impaired activity tolerance 4. Shortness of breath 5. Swelling Impairments are contributing to the following functional limitations: 1. Decline in bed mobility skills 2. Decline in transfer skills 3. Difficulty with ambulation without assistive device and physical assistance 4. Increased completion time for mobility ADL performance 5. Increased risk for falls 6. Difficulty with managing steps alone safely Goals: Goals X1 week 1. Supine-Sit independent NOT MET 2. Sit-Supine independent NOT MET 3. Sit-Stand independent NOT MET NOT MET 4. Stand-Sit independent with FWW NOT MET 5. Bed-Chair independent with FWW NOT MET 6. Chair-Bed independent with FWW NOT MET 7. Independent gait on level surface with use of FWW for at least 300 feet without report of pain nor dyspnea NOT MET 8. Independent stair negotiation while holding onto 1 rail for at least 4 steps without report of pain nor dyspnea NOT MET 9. Independent with home exercise program NOT MET 10. Good static and dynamic standing balance/tolerance NOT MET DISCHARGE RECOMMENDATIONS: [] Home with no services [] [X] Home with services. Patient will benefit from home health PT services in order to progress mobility level using least restrictive assistive ambulatory device, assess home safety, identify additional equipment needs, and establish a functional maintenance program that will increase ability of patient to remain at home. [] Home with outpatient PT [] [] SNF for continued rehabilitation [] [] Design/Animation Instructor Care [] [] SNF versus LTC based on ability to participate and progress [] TREATMENT CODE/TIME: MO Thank you for the opportunity to participate in the care of this patient. Savanna Banks PT, DPT, CLT [facility] [place], [place]
== END 2021-06-24 13:58 | disposition home health service (06) ==
LOC: ER 19:49 → MS 20:37
PROVIDERS: Admitting Provider Internal Medicine; Emergency Provider Nurse Practitioner Family; PCP Family Medicine; Visit Provider Internal Medicine
DX: I50.23 Acute on chronic systolic (congestive) heart failure (principal); I48.91 Unspecified atrial fibrillation; Z91.19 Patient's noncompliance with other medical treatment and regimen; I48.92 Unspecified atrial flutter; I27.20 Pulmonary hypertension, unspecified; I50.810 Right heart failure, unspecified; E11.9 Type 2 diabetes mellitus without complications; D64.9 Anemia, unspecified; I25.10 Atherosclerotic heart disease of native coronary artery without angina pectoris; Z85.01 Personal history of malignant neoplasm of esophagus; E46 Unspecified protein-calorie malnutrition; F17.210 Nicotine dependence, cigarettes, uncomplicated
CPT/HCPCS: 36415; 80048; 80053; 87637; 93005; 94640; 96374; 96375; 99285; 71045; 81003; 82607; 82728; 82746; 83036; 83540; 83550; 83735; 83880; 84443; 84484; 85025; 85379; 93010; 93306; 99217; 99220; G0378; J1940; J2270; J3490

== ENCOUNTER 2021-06-29 14:37 | Outpatient (REF) | payer MEDICARE, MEDICAID, SELFPAY ==
[2021-06-29 17:11] LABS: Anion Gap 9.7 mmol/L (3-11); BUN 71 mg/dL (7-18); CO2 25.3 mmol/L (21.0-32.0); CREATININE 1.5 mg/dL (0.70-1.30); Calcium 8.8 mg/dL (8.5-10.1); Chloride 99 mmol/L (98-107); Estimated GFR 46.27 (mL/min/1.73m2); Glucose 139 mg/dL (74-106); Potassium 4.4 mmol/L (3.5-5.1); Sodium 134 mmol/L (136-145)
== END 2021-06-29 14:38 | disposition home or self-care (01) ==
LOC: LBN 14:37
PROVIDERS: PCP Family Medicine; Visit Provider Family Medicine
DX: I50.22 Chronic systolic (congestive) heart failure (principal)
CPT/HCPCS: 80048

== ENCOUNTER 2021-08-06 17:53 | Outpatient (REF) | payer MEDICARE, MEDICAID, SELFPAY ==
[2021-08-06 14:46] LABS: HCT 41.8 % (40.0-50.0); HGB 13.3 g/dL (13.5-17.5); MCH 28.9 pg (27.0-33.0); MCHC 31.8 % (32.0-36.0); MCV 90.9 fL (80-95); MPV 10.4 fL (8.0-11.0); Platelet Count 242 10^3/uL (130-400); RDW-SD 59.3 fL
[2021-08-06 15:12] LABS: ALT 24 U/L (16-63); AST 21 U/L (15-37); Albumin 3.5 g/dL (3.4-5.0); Alkaline Phosphatase 127 U/L (46-116); Anion Gap 10.7 mmol/L (3-11); BUN 39 mg/dL (7-18); Bilirubin, Total 0.7 mg/dL (0.2-1.0); CO2 25.3 mmol/L (21.0-32.0); CREATININE 1.1 mg/dL (0.70-1.30); Calcium 9.5 mg/dL (8.5-10.1); Chloride 101 mmol/L (98-107); Ferritin 71 ng/mL (26-388); Glucose 109 mg/dL (74-106); Magnesium 2.1 mg/dL (1.8-2.4); Potassium 4.4 mmol/L (3.5-5.1); Sodium 137 mmol/L (136-145); Total Protein 7.8 g/dL (6.4-8.2)
== END 2021-08-06 17:54 | disposition home or self-care (01) ==
LOC: NCHCN 17:53
PROVIDERS: PCP Family Medicine; Visit Provider Family Medicine
DX: I50.9 Heart failure, unspecified (principal); D50.9 Iron deficiency anemia, unspecified; E40 Kwashiorkor; R53.81 Other malaise
CPT/HCPCS: 80053; 85027; 82728; 83735

== ENCOUNTER 2021-09-07 11:33 | Emergency (ER) | payer MEDICARE, MEDICAID, SELFPAY ==
[2021-09-07] VITALS (13 sets, daily range): BP systolic 122–134; BP diastolic 64–99; PULSE 56–103; RESP 11–20; TEMP 36–36.6; O2SAT 94–100
--- NOTE | 2021-09-07 12:08 | ED.GENADUL_ITS ---
Discharge Plan Disposition Patient Disposition: HOME Condition: Fair Discharge Details Clinical Impression: Pneumonia, Decrease in appetite, Weight loss Primary Care Provider: Silvina Perdue ED Provider: Noemi Gloria Home Meds and New Rx's Prescriptions: Continued sucralfate [Carafate] 100 mg/mL suspension 10 ml PO QID 0RF lidocaine 5 % cream 1 applic TP QID 0RF Rx Instructions: apply to lower back multivitamin capsule 1 cap PO DAILY 0RF Combivent Respimat 20-100 mcg/actuation mist 2 puff IH TID 0RF folic acid 1 MG tablet 1 mg PO DAILY 0RF bupropion HCl (smoking deter) 150 MG tablet extended release 12 hr 150 mg PO BID 0RF aspirin [Ecotrin Low Strength] 81 MG tablet,delayed release (DR/EC) 81 mg PO DAILY 0RF atorvastatin [Lipitor] 10 MG tablet 10 mg PO HS 0RF nitroglycerin [Nitrostat] 0.4 MG tablet, sublingual 0.4 mg Sublingual . DIRECTED PRN (Reason: Chest Pain) 0RF Protocol: Nitroglycerin-Angina Condition: Angina Dose/Route: 5 mcg/min Instruction: Titrate by 5 mcg/min every 3-5 minutes Condition: No response by 20 mcg/min Dose/Route: 30 mcg/min Instruction: Titrate by 10-20 mcg/min every 3-5 minutes Protocol Text: Angina, Not responsive to sublingual nitroglycerin and beta blockers a) Dosage is affected by the type of infusion set used. When nonabsorptive tubing is used, doses must be reduced. b) Using nonabsorptive tubing, the initial dose should be 5 micrograms/minute (mcg/min). Titration should be guided by clinical response, with more caution exercised as partial response is noted. Initial titration should be in 5 mcg/min increments at intervals of 3 to 5 minutes. If no response in noted at 20 mcg/min, increments of 10 to 20 mcg/min can be used. Dosage increments should be smaller and less frequent once some hemodynamic response is observed. c) Using standard polyvinyl chloride tubing, the usual starting dose in clinical studies has been 25 micrograms/minute or more. Continuous monitoring of hemodynamic parameters MUST BE PERFORMED during titration to optimal dosing. d) Typically, maximum infusion rates are defined by 20% or greater reductions in systolic blood pressure or 10% or greater increases in heart rate over baseline values. e) However, because of the evidence of tolerance and the possibility of methemoglobinemia, ethanol intoxication, and heparin resistance with high infusion rates, infusion rates of less than 40 micrograms/minute have been recommended. Source-[employer]rom[employer] (03/30/12) cholecalciferol (vitamin D3) 1,000 UNITS tablet 2,000 units PO DAILY 0RF gabapentin 300 mg capsule 300 mg PO TID 0RF Ensure Original Liquid See Rx Instructions .ROUTE .COMPLEX 0RF Rx Instructions: Drink 1 bottle 3 x daily hydrocodone-acetaminophen 10-325 mg tablet 1 tab PO TID 0RF Label Comments: TAKE ONE TABLET BY MOUTH THREE TIMES A DAY FOR PAIN spironolactone 25 mg tablet 25 mg PO DAILY 0RF Label Comments: TAKE ONE TABLET BY MOUTH EVERY DAY bumetanide 2 mg tablet See Rx Instructions .ROUTE .COMPLEX Qty: 20 0RF Rx Instructions: take 2 tabs in the morning (4 mg) and one tab in the afternoon (2 mg) pantoprazole 40 MG tablet,delayed release (DR/EC) 40 mg PO DAILY 0RF metoprolol tartrate 25 mg Tablet 12.5 mg PO BID 0RF tamsulosin 0.4 mg capsule 0.4 mg PO QHS 0RF Label Comments: TAKE ONE CAPSULE BY MOUTH EVERY EVENING ferrous sulfate [FeroSul] 325 mg (65 mg iron) tablet 325 mg PO DAILY 0RF tiotropium bromide 18 mcg Capsule, W/Inhalation Device 18 mcg INHALATION DAILY 0RF Discharge Instructions Instructions: Pneumonia (ED) Additional Instructions: Acute symptoms today are most consistent with pneumonia your diagnosis. Please encourage hydration. Tylenol as needed for discomfort. Please take the antibiotics as prescribed. Even if symptoms improve, please take entire course. Please take a probiotic while you are on the antibiotics. In regards to your acute on chronic weight loss and decreased appetite, I would like for you to discuss this further with your primary care. Please call tomorrow to schedule follow-up appointment. As you noticed while here, your symptoms did improve after you ate, I do encourage you to try to eat more frequently as this may help you feel better. If you develop fever/chills, shortness of breath, difficulty breathing, abdominal pain, chest pain, inability to hydrate or other new/worsening symptom please seek care urgently once again. Referrals: Silvina Perdue MD [Primary Care Provider] - Discharge Data Discharge Date/Time-TO BE ENTERED AT DEPARTURE: 04/04/22 18:05 Medical Decision Making Patient is a pleasant 71-year-old gentleman, well-known to myself in the department, presenting today with chief complaint of decreased appetite. Triage note from nursing staff reported the patient had been complaining of abdominal pain. However, he denies this to me now states that she is warm his appetite. He states that his appetite has been steadily decreasing over the past 1 to 2 years. Has noted rash decline in his appetite recently and states that he is only wanting to drink water. He denies any abdominal pain currently. No fevers or chills. Denies any change in bowel or bladder habits. Denies any chest pain. Shortness of breath. Patient does report that he is cough but unclear if this is changed from baseline. Past medical history is pertinent for GI bleed, malnutrition, COPD, CAD, hypertension. On exam, patient appears chronically ill. Patient is quite cachectic. Does have some rhonchi in the right lower lobe, otherwise lungs are clear. Patient does appear dehydrated. Normal cardiac auscultation. Patient has several postsurgical changes on his abdomen. Based on chart review, patient does have a history of cardiac cath, CABG, esophagectomy, EGD, hydrocelectomy, right inguinal hernia repair. Symptoms patient does not examine like a surgical abdomen, no pain with palpation. Left concern with surgical abdomen more concerned for chronic malnutrition. We will begin hydrating the patient, obtain baseline labs. He has had a cough and does sound rhonchorous in the right lower lobe we will also obtain a chest x-ray. FINDINGS: Single AP portable view. Again noted are sternotomy wires and evidence of previous CABG. Heart size unchanged and the mediastinum is not widened There is infiltrate in the left lower lobe retrocardiac region.? Also suggestion of some patchy infiltrate in the mid-lower right lung.? No pleural effusions.? No pulmonary edema.? Mildly elevated left hemidiaphragm again noted. IMPRESSION: Left lower lobe infiltrate.? Also possible patchy infiltrate in the opposite- right lung.? There are no pleural effusions. Previous sternotomy and CABG.? No pulmonary edema. Labs reviewed. No signficant abnormalities with CBC. CMP signficant for slight elevation of bilirubin, LFTs otherwise normal. No other signficant abnormality. Patient has no pain in this area, no jaundice. Discussed findings of XR and labs with the patient. Discussed concerns with XR for possible pneumonia. While his history did not include symptoms of thtis, he is a poor historian. With his deterioration, I feel that treatment ofr pneumonia would be appropriate. Patient agreeable to this course. Spoke with patient's roommate, Lyudmila. She advised that he has not been wanting to eat. She also states that earlier today, he was endorsing abdominal discomfort. She spoke with the patient though and states he is now hungry and wanting to go home. [phone]. Reevaluate the patient. He reports that he is feeling much improved after eating a sandwhich. He continues to deny any abdominal discomfort. Is requesting discharge home. Patient given first dose of abx. Enocuraged hydration, close f/u with PCP. Encourageed that he try to be up and movee around more. Will continue with abx. encouraged that he try to increase caloric intake and discussed how this could e possible. Lyudmila will be picking him up. All of his quesitons and concerns were addressed, he is in agreemeent with this plan. He was advised on change in condition that should prompt return for reevaluation within the ED. HPI General Date/Time Provider Initiated Documentation: 09/07/21 12:00 . Limitations to Documentation: no limitations (Patient is a generally poor historian, no signficant limitations though) . Information obtained by: patient, family, EMS and RN notes reviewed . History of Present Illness 71 year old M presents to the emergency department with the chief complaint of general malaise, generalized weakness, decreased appetitie, described as mild, Quality is described as constant and other (progressively worsening over past few years, acute on chronic issue), Patient started experiencing this year(s) and it has been constant. improves with No relieving factors improve symptom(s), No exacerbating factors reported . Patient notes loss of appetite and weakness (generalized, reports more fatigued); denies confusion, chest pain, cough, fever/chills, headaches, nausea/vomiting and shortness of breath. Related Data Home Medications Medication Instructions Recorded Confirmed bupropion HCl (smoking deter) 150 150 mg PO BID 08/04/12 06/23/21 mg tablet,12 hr sustained-release(smoking deterrent) folic acid 1 mg tablet 1 mg PO DAILY 08/04/12 06/23/21 aspirin 81 mg tablet,delayed 81 mg PO DAILY 04/09/13 06/23/21 release (Ecotrin Low Strength) atorvastatin 10 mg tablet (Lipitor) 10 mg PO HS 01/25/15 06/23/21 cholecalciferol (vitamin D3) 25 2,000 units PO DAILY 04/12/16 06/23/21 mcg (1,000 unit) tablet nitroglycerin 0.4 mg sublingual 0.4 mg SUBLINGUAL . DIRECTED PRN 04/12/16 06/23/21 tablet (Nitrostat) pantoprazole 40 mg tablet,delayed 40 mg PO DAILY 01/15/17 06/23/21 release lidocaine 5 % topical cream 1 applic TP QID 02/10/18 06/23/21 multivitamin 1 cap PO DAILY 02/10/18 06/23/21 sucralfate 100 mg/mL oral 10 ml PO QID 02/10/18 06/23/21 suspension (Carafate) metoprolol tartrate 25 mg tablet 12.5 mg PO BID 04/12/18 06/23/21 ipratropium 20 mcg-albuterol 100 2 puff IH TID 05/02/19 06/23/21 mcg/actuation mist for inhalation (Combivent Respimat) food supplemt, lactose-reduced See Rx Instructions .ROUTE .COMPLEX 01/15/20 06/23/21 (Ensure Original) gabapentin 300 mg capsule 300 mg PO TID 01/15/20 06/23/21 hydrocodone 10 mg-acetaminophen 1 tab PO TID 07/09/20 06/23/21 325 mg tablet spironolactone 25 mg tablet 25 mg PO DAILY 07/10/20 06/23/21 ferrous sulfate 325 mg (65 mg 325 mg PO DAILY 03/05/21 06/23/21 iron) tablet (FeroSul) tamsulosin 0.4 mg capsule 0.4 mg PO QHS 03/05/21 06/23/21 tiotropium bromide 18 mcg capsule 18 mcg INHALATION DAILY 03/05/21 06/23/21 with inhalation device bumetanide 2 mg tablet See Rx Instructions .ROUTE 06/24/21 06/23/21 .COMPLEX #20 tab Previous Rx's Medication Instructions Recorded bumetanide 2 mg tablet See Rx Instructions .ROUTE 06/24/21 .COMPLEX #20 tab Allergies Allergy/AdvReac Type Severity Reaction Status Date / Time No Known Allergies Allergy Verified 04/10/21 13:06 General Stated Complaint: Abd Prob ANAMIKA: 3 PFSH All Active Problems (Updated 09/07/21 @ 16:56 by SONYA Herrera) Pneumonia (Acute) Decrease in appetite (Acute) Weight loss (Acute) Hypophosphatemia (Acute) Hypokalemia (Acute) Hypervitaminosis D (Acute) Anemia associated with acute blood loss (Acute) Failure to thrive (Acute) Encephalopathy acute (Acute) GI bleeding (Chronic) Malnutrition (Acute) Rib fractures (Acute) COVID-19 (Acute) AMS (altered mental status) (Acute) Hematoma (Acute) Neck pain (Acute) Pain, dental (Acute) Acute lymphadenitis of neck (Acute) Constipation (Acute) Bladder wall thickening (Acute) Colon wall thickening (Acute) Fatigue (Acute) Altered mental status (Acute) Shortness of breath (Acute) Abdominal pain (Acute) COVID-19 (Acute) Hypokalemia (Acute) Mild bibasilar atelectasis (Acute) Confusion state (Acute) Alcohol abuse (Chronic) Tricuspid regurgitation (Chronic) Bilateral lower extremity edema (Acute) Acute on chronic diastolic (congestive) heart failure (Acute) CAD (coronary artery disease) (Chronic) Hypertension (Chronic) Encounter for colorectal cancer screening (Acute) Hydrocele, right (Acute 01/23/16) Epididymitis, right (Acute 08/02/16) Cerumen impaction (Acute) Medical History (Updated 09/07/21 @ 16:56 by SONYA Herrera) Abnormal radiologic findings on diagnostic imaging of renal pelvis, ureter, or bladder Acute on chronic anemia Acute on chronic systolic CHF (congestive heart failure) Adenocarcinoma of esophagus Afib CAD (coronary artery disease) of artery bypass graft CHF, acute on chronic Diabetes mellitus Difficulty reading Essential hypertension GERD (gastroesophageal reflux disease) GI bleed History of GI bleed Hyperlipidemia Pancreatitis Prediabetes Pulmonary hypertension Recent weight loss Solitary pulmonary nodule Tobacco abuse Weight loss Surgical History cardiac cath Coronary Artery Bypass Gaft (CABG) EGD - IV Sedation Esophagectomy H/O colonoscopy (2007) H/O colonoscopy (04/14/18) dr geller, sigmoid diverticulosis, repeat 10 years History of esophagogastroduodenoscopy (EGD) (09/2017) History of hydrocelectomy History of right inguinal hernia repair repair times two sugrical flap of unhealing wound Family History Mother No problems noted. Father No problems noted. Social History Smoking/Tobacco Use Status: Current-Occasional Tobacco Type: cigarettes Smoking packs per day: 1 Smoking cigarettes per day: 20.0 Years smoked: 50 Smoking pack- years: 50.00 Smoking risk assessment performed?: Yes Alcohol Intake: current Alcohol Intake frequency: 0-2 drinks per day Alcohol type: beer Drug use: Never Substance use type: does not use What type of physical activity do you participate in: none Do you feel safe at home: Yes Do you feel safe in your relationship?: Yes Exam Const General: cooperative, comfortable, no acute distress, well developed, frail appearing and ill appearing chronically Nutritional Appearance: malnourished and thin Orientation: alert and awake HENOK Head: normal to inspection Mouth: mucous membranes dry Resp Effort & Inspection: normal respiratory effort, able to speak in complete sen tences and no respiratory distress Auscultation: no rales, rhonchi right lower and no wheezes Cardio Rate: regular rate Rhythm: regular rhythm Heart Sounds: S1 normal and S2 normal GI Inspection: scar (mulple well healed scar) Palpation: soft, no hepatosplenomegaly, not firm, no guarding, no masses, no pulsatile masses and nontender Percussion: normal to percussion Back/Spine/Pelvis Back: no CVA tenderness Skin General skin exam: no rashes or lesions noted Trauma: no lacerations or abrasions Neuro General: patient alert and patient awake Cognition: normal cognition Speech: speech normal Extrem General: normal to inspection, capillary refill normal, no pedal edema and no calf tenderness Psych Appearance: grossly normal and well kempt Mental Status: mental status grossly normal Speech and Movement: speech and movement normal Course Vital Signs Vital signs: Vital Signs Temperature 36.2 C L 09/07/21 11:36 Pulse 67 09/07/21 11:36 Respiratory Rate 12 09/07/21 11:36 Blood Pressure 122/76 09/07/21 11:36 Pulse Oximetry 100 09/07/21 11:36 Temperature 36.2 C L 09/07/21 11:36 Temperature Source Temporal Artery Scan 09/07/21 11:36 Pulse 67 09/07/21 11:36 Respiratory Rate 12 09/07/21 11:36 Blood Pressure 122/76 09/07/21 11:36 Blood Pressure Position Sitting 09/07/21 11:36 Pulse Oximetry 100 09/07/21 11:36 Oxygen Delivery Method Room Air 09/07/21 11:36 Oxygen Flow Rate 0 09/07/21 11:36 Pain Level 0 09/07/21 11:36
--- NOTE | 2021-09-07 13:45 | RT.EKG_ITS ---
APPROVED REPORT Exam: Resting ECG Reason for Exam: weakness, diminished appetite Patient Location: E HR:90 bpm ECG Measurements Heart Rate 90 AXIS NC [id number] P [id number] QRSd 97 QRS 102 QT 369 T 8 QTc 453 Conclusion Atrial fibrillation...V-rate 64- 95, irreg A-activity Right axis deviation...QRS axis ( 91,269) significant artifact present. no apparent STEMI. non-diagnostic EKG I have reviewed and interpreted ECG and agree with software generated interpretation.
[2021-09-07 14:11] LABS: Abs Immature Grans 0.03 10^3/uL (0.0-0.06); Absolute Basophil Count 0.01 10^3/uL (0.0-0.2); Absolute Eosinophil Count 0.03 10^3/uL (0.0-0.7); Absolute Lymphocyte Count 0.96 10^3/uL (1.2-3.4); Absolute Monocyte Count 0.52 10^3/uL (0.1-0.8); Absolute Neutrophil Count 6.59 10^3/uL (1.2-6.7); Basophils % 0.1; Eosinophils % 0.4; HCT 50.6 % (40.0-50.0); HGB 16.1 g/dL (13.5-17.5); Immature Grans % 0.4; Lymphocytes % 11.8; MCH 29.1 pg (27.0-33.0); MCHC 31.8 % (32.0-36.0); MCV 91.3 fL (80-95); MPV 9.6 fL (8.0-11.0); Monocytes % 6.4; Neutrophils % 80.9; Nucleated RBC 0 %; Platelet Count 213 10^3/uL (130-400); RBC 5.54 10^6/uL (4.36-5.78); RDW 17.6 % (11.8-14.1); RDW-SD 58.6 fL; WBC 8.14 10^3/uL (4.4-10.8)
[2021-09-07 14:12] LABS: Lactate 1.5 mmol/L (0.6-1.4)
[2021-09-07 14:31] LABS: Troponin I < 50 ng/L (<or=60)
[2021-09-07 14:43] LABS: ALT 27 U/L (16-63); AST 25 U/L (15-37); Albumin 3.6 g/dL (3.4-5.0); Alkaline Phosphatase 114 U/L (46-116); Anion Gap 10.9 mmol/L (3-11); BUN 43 mg/dL (7-18); Bilirubin, Total 1.3 mg/dL (0.2-1.0); CO2 27.1 mmol/L (21.0-32.0); CREATININE 1.1 mg/dL (0.70-1.30); Calcium 9.9 mg/dL (8.5-10.1); Chloride 100 mmol/L (98-107); Glucose 95 mg/dL (74-106); Lipase 58 U/L (73-393); Magnesium 2.3 mg/dL (1.8-2.4); Sodium 138 mmol/L (136-145); Total Protein 8.2 g/dL (6.4-8.2)
--- NOTE | 2021-09-07 14:45 | DI.RAD_ITS ---
Exam(s) XR PORTABLE CHEST AP EXAM: XR PORTABLE CHEST AP CLINICAL HISTORY: cough. TECHNIQUE: 2D digital imaging was performed. COMPARISON: CR,XR XR PORTABLE CHEST AP from 06/23/2021 FINDINGS: Single AP portable view. Again noted are sternotomy wires and evidence of previous CABG. Heart size unchanged and the mediastinum is not widened There is infiltrate in the left lower lobe retrocardiac region. Also suggestion of some patchy infil trate in the mid-lower right lung. No pleural effusions. No pulmonary edema. Mildly elevated left hemidiaphragm again noted. IMPRESSION: Left lower lobe infiltrate. Also possible patchy infiltrate in the opposite-right lung. There are n o pleural effusions. Previous sternotomy and CABG. No pulmonary edema. DATA REPOSITORY: RADIATION DOSE DELIVERED: All CT scans at this facility use at least one of these dose optimization techniques: automated exposure control; mA and/or kV adjustment per patient size (includes targeted e xams where dose is matched to clinical indication); or iterative reconstruction.
[2021-09-07] MEDS: Lactated Ringers 1,000 ML 500 ML IV (14:53)
[2021-09-07 15:12] LABS: Bilirubin Small (Negative); Blood Negative (Negative); Clarity Clear (Clear); Glucose Negative (Negative); Ketones Trace mg/dL (Negative); Leukocyte Esterase Negative (Negative); Nitrite Negative (Negative); pH 5.5 (5-8)
[2021-09-07] MEDS: Amoxicillin 875/Clav. 125 TAB PO (16:28)
[2021-09-07] MEDS: Doxycycline Hyclate 100 MG CAP PO (16:28)
== END 2021-09-07 18:05 | disposition home or self-care (01) ==
PROVIDERS: Emergency Provider Physician Assistant; PCP Family Medicine
DX: J18.9 Pneumonia, unspecified organism (principal); R63.4 Abnormal weight loss; R63.0 Anorexia; R05.1 Acute cough
CPT/HCPCS: 80053; 83690; 93005; 96360; 96361; 99284; 71045; 81003; 83605; 83735; 84484; 85025; 93010

== ENCOUNTER 2021-09-17 18:00 | Emergency (ER) | payer MEDICARE, MEDICAID, SELFPAY ==
[2021-09-17 18:19] VITALS: BP 136/102; PULSE 87; RESP 18; TEMP 36.9; O2SAT 95
[2021-09-17 18:45] VITALS: BP 107/69; PULSE 88; RESP 18; TEMP 36.7; O2SAT 92
--- NOTE | 2021-09-17 19:00 | DI.CT_ITS ---
Exam(s) CT ABDOMEN PELVIS W EXAM: CT ABDOMEN PELVIS W CLINICAL HISTORY: abdominal [place], decreased urination TECHNIQUE: Imaging Protocol: Axial computed tomography images with coronal and sagittal reformatted images were created and reviewed CONTRAST MATERIAL: Intravenous: Omnipaque 350 Contrast volume:65 mL Oral: No COMPARISON: CT CT CHEST PE ABD PELVIS W from 04/10/2021 FINDINGS: ABDOMEN: Lung Bases: There is a large hiatal hernia. Cardiomegaly. There are bilateral basilar infiltrates, right greater than left. The findings have mildly progressed since 04/10/2021. Liver: Normal density. No measurable mass. Portal, Superior Mesenteric, and Splenic Veins: Unremarkable. Gallbladder and Biliary Tract: No radiodense calculus or dilation. Pancreas: Numerous calcifications are again seen in the head of the pancreas. Spleen: There again seen splenic calcifications. Adrenals: There is stable thickening of the limbs of both adrenal glands. Kidneys: Normal size, contour and axis. There is a 3 mm nonobstructing stone in the lower pole of the right kidney. No masses seen. Abdominal Aorta: Atherosclerosis is present. No aneurysmal dilatation. There is again seen a hypode nse flap in the proximal left common iliac artery likely reflecting prior dissection. This is unchan ged. Bowel: No obstruction or bowel wall thickening. Appendix is unremarkable. There is a large amount of stool in the rectal vault. There is mild thickening of the wall of the distal rectum. Stercoral col itis should be considered. There is a large amount of stool seen in the descending colon and proxima l sigmoid colon. Peritoneal Cavity: No ascites, collection or mesenteric inflammatory response. No free air. Lymph Nodes: Within normal limits. Bones: Within normal limits for the patient's age. Soft Tissues: There is an elevated left testicle near the inguinal canal which is unchanged. PELVIS: Bladder: There is a Biggs catheter in the urinary bladder. Reproductive Organs: Unremarkable as visualized. Lymph Nodes: Within normal limits. Bones: Within normal limits for the patient's age. Postsurgical changes seen in the anterior abdomin al wall. IMPRESSION: 1. Large amount of stool seen predominantly in the rectum with some thickening of the wall of the rec magnolia. Stercoral colitis cannot be excluded. 2. Persistent bilateral lower lobe infiltrates. They appear to have progressed particularly in the l eft lower lobe. Pneumonia should be considered particularly aspiration pneumonia. Neoplasm cannot b e excluded. 3. No evidence of hydronephrosis. Right nephrolithiasis. RADIATION DOSE DELIVERED: 471.69mGy.cm Total DLP DATA REPOSITORY: All CT scans at this facility are submitted to the National Radiology Data Registry (NRDR) Dose Index Registry (DIR) with the [employer] ([employer]). RADIATION OPTIMIZATION: All CT scans at this facility use at least one of these dose optimization te chniques: automated exposure control; mA and/or kV adjustment per patient size (includes targeted exa ms where dose is matched to clinical indication); or iterative reconstruction.
[2021-09-17] MEDS: Lidocaine 2% Jelly 11 ML SYR UR (20:16)
[2021-09-17 20:25] VITALS: BP 92/61; PULSE 72; RESP 16; O2SAT 96
[2021-09-17 20:33] LABS: Abs Immature Grans 0.05 10^3/uL (0.0-0.06); Absolute Eosinophil Count 0.01 10^3/uL (0.0-0.7); Absolute Lymphocyte Count 0.42 10^3/uL (1.2-3.4); Absolute Monocyte Count 0.62 10^3/uL (0.1-0.8); Basophils % 0.1; Eosinophils % 0.1; HCT 49.6 % (40.0-50.0); HGB 16.1 g/dL (13.5-17.5); Immature Grans % 0.4; Lymphocytes % 3.1; MCH 30.1 pg (27.0-33.0); MCHC 32.5 % (32.0-36.0); MCV 92.7 fL (80-95); MPV 9.6 fL (8.0-11.0); Monocytes % 4.6; Neutrophils % 91.7; Platelet Count 191 10^3/uL (130-400); RBC 5.35 10^6/uL (4.36-5.78); RDW-SD 60.6 fL; WBC 13.43 10^3/uL (4.4-10.8)
[2021-09-17 20:36] LABS: ALT 25 U/L (16-63); AST 34 U/L (15-37); Albumin 3.5 g/dL (3.4-5.0); Alkaline Phosphatase 93 U/L (46-116); Anion Gap 10.9 mmol/L (3-11); BUN 51 mg/dL (7-18); Bilirubin, Total 1.4 mg/dL (0.2-1.0); CO2 25.1 mmol/L (21.0-32.0); CREATININE 1.3 mg/dL (0.70-1.30); Calcium 9.6 mg/dL (8.5-10.1); Chloride 98 mmol/L (98-107); Estimated GFR 54.42 (mL/min/1.73m2); Glucose 77 mg/dL (74-106); Lipase 33 U/L (73-393); Potassium 4.3 mmol/L (3.5-5.1); Sodium 134 mmol/L (136-145); Total Protein 7.6 g/dL (6.4-8.2)
[2021-09-17] MEDS: Normal Saline 1,000 ML 1000 ML IV (20:44)
[2021-09-17 21:04] LABS: Bilirubin Negative (Negative); Blood Moderate (Negative); Clarity Clear (Clear); Glucose Negative (Negative); Ketones Negative (Negative); Leukocyte Esterase Negative (Negative); Nitrite Negative (Negative); Specific Gravity 1.025 (1.005-1.025); Urobilinogen 0.2 EU/dL (Up TO 0.2)
[2021-09-17 21:07] LABS: Absolute Basophil Count 0.01 10^3/uL (0.0-0.2); Absolute Neutrophil Count 12.32 10^3/uL (1.2-6.7)
[2021-09-17 21:15] LABS: Bacteria Negative HPF (Negative); C & S Indicated? No; Casts Negative LPF (Negative); Crystals Negative HPF (Negative); Epithelial Cells Negative HPF (Negative); Mucus Negative (Negative); Other Cells Negative (Negative); RBC >50 HPF (0-2)
[2021-09-17] MEDS: Omnipaque 350 MG/ML 100 ML BTL 65 ML IJ (21:31)
[2021-09-17 21:54] VITALS: BP 109/78; PULSE 72; RESP 16; O2SAT 97
--- NOTE | 2021-09-17 22:15 | DI.VRAD_ITS ---
PROCEDURE INFORMATION: Exam: CT Abdomen And Pelvis With Contrast Exam date and time: 09/17/2021 9:27 PM Age: 71 years old Clinical indication: Pain; Other: Abdominal [place], decreased urination TECHNIQUE: Imaging protocol: Computed tomography of the abdomen and pelvis with contrast. Contrast material: OMNIPAQUE 350; Contrast volume: 65 ml; Contrast route: INTRAVENOUS (IV); COMPARISON: CT CHEST PE ABD PELVIS W 04/10/2021 4:34 PM FINDINGS: Lungs: Complex lower lobe consolidations and septal thickening are noted bilaterally, increased from previous. Scattered areas of ground-glass opacity also noted in the right middle lobe. Emphysematous changes present. Heart: Distended right atrium. No pericardial effusion. Diaphragm: Moderate hiatal hernia versus gastric pull-up. Liver: Normal. No mass. Gallbladder and bile ducts: Normal. No calcified stones. No ductal dilation. Pancreas: Severe calcifications at the pancreatic head unchanged. No inflammatory changes around the pancreas. Pancreatic tail elevated and may be partially resected. Spleen: Normal. No splenomegaly. Adrenal glands: Normal. No mass. Kidneys and ureters: Negative for hydronephrosis. Kidneys enhance symmetrically. Nonobstructing 2 mm stone inferior pole on the right. Nondilated ureters. Stomach and bowel: Nondilated small bowel. Colon is distended with air and stool. Appendix: No evidence of appendicitis. Intraperitoneal space: Unremarkable. No free air. No significant fluid collection. Arteries: Severe vascular calcifications. Negative for abdominal aortic aneurysm. 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 Lymph nodes: Unremarkable. No enlarged lymph nodes. Urinary bladder: Urinary bladder collapsed around Biggs catheter. Reproductive: Elevated left testicle noted near the inguinal canal, similar to previous. Bones/joints: Complex postoperative chest wall/rib defect noted, anterior inferior left ribs, similar to previous. Severe degenerative disc disease L4-L5. Moderate facet arthropathy L5-S1. Soft tissues: Cachectic patient. IMPRESSION: 1. No hydronephrosis. Unremarkable kidneys. 2. Extensive postoperative changes. 3. Negative for bowel obstruction. 4. Distended colon with gas and stool. Colonic dysmotility likely. 5. Bilateral lower lobe pulmonary consolidations. Chronic progressive pneumonia suspected. Correlate for any aspiration. Areas of neoplasm not excluded. Dictated and Authenticated by: Shaun Poole MD. Ordering:CALIXTO Oconnor MD
--- NOTE | 2021-09-17 23:10 | W.ED.GENAD ---
Discharge Plan Disposition Patient Disposition: HOME Condition: Stable Discharge Details Clinical Impression: Acute urinary retention, Constipation Primary Care Provider: Silvina Perdue ED Provider: Anastasia Dan Home Meds and New Rx's Prescriptions: New polyethylene glycol 3350 [Miralax] 17 gram/dose powder 17 g PO BID Qty: 238 0RF Continued sucralfate [Carafate] 100 mg/mL suspension 10 ml PO QID 0RF lidocaine 5 % cream 1 applic TP QID 0RF Rx Instructions: apply to lower back multivitamin capsule 1 cap PO DAILY 0RF Combivent Respimat 20-100 mcg/actuation mist 2 puff IH TID 0RF folic acid 1 MG tablet 1 mg PO DAILY 0RF bupropion HCl (smoking deter) 150 MG tablet extended release 12 hr 150 mg PO BID 0RF aspirin [Ecotrin Low Strength] 81 MG tablet,delayed release (DR/EC) 81 mg PO DAILY 0RF atorvastatin [Lipitor] 10 MG tablet 10 mg PO HS 0RF nitroglycerin [Nitrostat] 0.4 MG tablet, sublingual 0.4 mg Sublingual . DIRECTED PRN (Reason: Chest Pain) 0RF Protocol: Nitroglycerin-Angina Condition: Angina Dose/Route: 5 mcg/min Instruction: Titrate by 5 mcg/min every 3-5 minutes Condition: No response by 20 mcg/min Dose/Route: 30 mcg/min Instruction: Titrate by 10-20 mcg/min every 3-5 minutes Protocol Text: Angina, Not responsive to sublingual nitroglycerin and beta blockers a) Dosage is affected by the type of infusion set used. When nonabsorptive tubing is used, doses must be reduced. b) Using nonabsorptive tubing, the initial dose should be 5 micrograms/minute (mcg/min). Titration should be guided by clinical response, with more caution exercised as partial response is noted. Initial titration should be in 5 mcg/min increments at intervals of 3 to 5 minutes. If no response in noted at 20 mcg/min, increments of 10 to 20 mcg/min can be used. Dosage increments should be smaller and less frequent once some hemodynamic response is observed. c) Using standard polyvinyl chloride tubing, the usual starting dose in clinical studies has been 25 micrograms/minute or more. Continuous monitoring of hemodynamic parameters MUST BE PERFORMED during titration to optimal dosing. d) Typically, maximum infusion rates are defined by 20% or greater reductions in systolic blood pressure or 10% or greater increases in heart rate over baseline values. e) However, because of the evidence of tolerance and the possibility of methemoglobinemia, ethanol intoxication, and heparin resistance with high infusion rates, infusion rates of less than 40 micrograms/minute have been recommended. Source-[employer]rom[employer] (03/30/12) cholecalciferol (vitamin D3) 1,000 UNITS tablet 2,000 units PO DAILY 0RF gabapentin 300 mg capsule 300 mg PO TID 0RF Ensure Original Liquid See Rx Instructions .ROUTE .COMPLEX 0RF Rx Instructions: Drink 1 bottle 3 x daily hydrocodone-acetaminophen 10-325 mg tablet 1 tab PO TID 0RF Label Comments: TAKE ONE TABLET BY MOUTH THREE TIMES A DAY FOR PAIN spironolactone 25 mg tablet 25 mg PO DAILY 0RF Label Comments: TAKE ONE TABLET BY MOUTH EVERY DAY bumetanide 2 mg tablet See Rx Instructions .ROUTE .COMPLEX Qty: 20 0RF Rx Instructions: take 2 tabs in the morning (4 mg) and one tab in the afternoon (2 mg) pantoprazole 40 MG tablet,delayed release (DR/EC) 40 mg PO DAILY 0RF metoprolol tartrate 25 mg Tablet 12.5 mg PO BID 0RF tamsulosin 0.4 mg capsule 0.4 mg PO QHS 0RF Label Comments: TAKE ONE CAPSULE BY MOUTH EVERY EVENING ferrous sulfate [FeroSul] 325 mg (65 mg iron) tablet 325 mg PO DAILY 0RF tiotropium bromide 18 mcg Capsule, W/Inhalation Device 18 mcg INHALATION DAILY 0RF Discharge Instructions Instructions: Constipation (ED), Urinary Retention in Men (ED) Additional Instructions: Use your leg bag with your walking and use of bed bag when you are sleeping or laying down Take MiraLAX daily When you arrive home take your magnesium citrate, take half a bottle anyway at 3 hours if you do not have success, you may repeat the dose stay near your bathroom as this will cause diarrhea Follow-up with the urologist in 1 week for reassessment and possible Biggs catheter removal You may also follow-up with your PCP Return earlier should you have new or worsening complaint of headache fever or chills, worsening pain Referrals: Rashawn Poole MD [ [facility]FF [facility]YSICIAN] - Silvina Perdue MD [Primary Care Provider] - 3 days Discharge Data Discharge Date/Time-TO BE ENTERED AT DEPARTURE: 09/17/21 23:53 Medical Decision Making Patient appears chronically ill His lab are stable for him Has stool noted in his rectal vault but was only able to tolerate small amount of disimpaction but refused additional attempts An enema was administered with moderate results A suppository will be placed if he showed signs of magnesium citrate I suspect a large amount of patient pain was related to the 1300 cc of urine that was at his bladder Is a Biggs catheter replaced we will supply leg bag He will be follow-up with urology He was given enema IV department He is discharged home on MiraLAX and magnesium citrate I do not see any indication for admission at this time Given low threshold to return should he have new or worse complaints At 2330 he is pending transportation home and is in stable condition Medical Records Medical records reviewed: Yes I reviewed the patient's medical records. Lab Data Lab results reviewed: Yes I reviewed the patient's lab results. HPI General Date/Time Provider Initiated Documentation: 09/17/21 18:29. HPI Narrative: This 71-year-old male with past medical history of pneumonia, failure to thrive, hypokalemia, anemia, encephalopathy, hypokalemia, coronary artery disease, CHF presents with report of the inability to urinate or have a bowel movement for 3 days. Denies any fever or chills. Patient has received reportedly. States the pain started yesterday. He denies any chest pain or shortness of breath. He denies any falls or injuries. He denies current alcohol use. Denies history of similar symptoms in the past. Denies any recent surgeries. Related Data Home Medications Medication Instructions Recorded Confirmed bupropion HCl (smoking deter) 150 150 mg PO BID 08/04/12 06/23/21 mg tablet,12 hr sustained-release(smoking deterrent) folic acid 1 mg tablet 1 mg PO DAILY 08/04/12 06/23/21 aspirin 81 mg tablet,delayed 81 mg PO DAILY 04/09/13 06/23/21 release (Ecotrin Low Strength) atorvastatin 10 mg tablet (Lipitor) 10 mg PO HS 01/25/15 06/23/21 cholecalciferol (vitamin D3) 25 2,000 units PO DAILY 04/12/16 06/23/21 mcg (1,000 unit) tablet nitroglycerin 0.4 mg sublingual 0.4 mg SUBLINGUAL . DIRECTED PRN 04/12/16 06/23/21 tablet (Nitrostat) pantoprazole 40 mg tablet,delayed 40 mg PO DAILY 01/15/17 06/23/21 release lidocaine 5 % topical cream 1 applic TP QID 02/10/18 06/23/21 multivitamin 1 cap PO DAILY 02/10/18 06/23/21 sucralfate 100 mg/mL oral 10 ml PO QID 02/10/18 06/23/21 suspension (Carafate) metoprolol tartrate 25 mg tablet 12.5 mg PO BID 04/12/18 06/23/21 ipratropium 20 mcg-albuterol 100 2 puff IH TID 05/02/19 06/23/21 mcg/actuation mist for inhalation (Combivent Respimat) food supplemt, lactose-reduced See Rx Instructions .ROUTE .COMPLEX 01/15/20 06/23/21 (Ensure Original) gabapentin 300 mg capsule 300 mg PO TID 01/15/20 06/23/21 hydrocodone 10 mg-acetaminophen 1 tab PO TID 07/09/20 06/23/21 325 mg tablet spironolactone 25 mg tablet 25 mg PO DAILY 07/10/20 06/23/21 ferrous sulfate 325 mg (65 mg 325 mg PO DAILY 03/05/21 06/23/21 iron) tablet (FeroSul) tamsulosin 0.4 mg capsule 0.4 mg PO QHS 03/05/21 06/23/21 tiotropium bromide 18 mcg capsule 18 mcg INHALATION DAILY 03/05/21 06/23/21 with inhalation device bumetanide 2 mg tablet See Rx Instructions .ROUTE 06/24/21 06/23/21 .COMPLEX #20 tab polyethylene glycol 3350 17 17 g PO BID #238 g 09/17/21 gram/dose oral powder (Miralax) Previous Rx's Medication Instructions Recorded bumetanide 2 mg tablet See Rx Instructions .ROUTE 06/24/21 .COMPLEX #20 tab polyethylene glycol 3350 17 17 g PO BID #238 g 09/17/21 gram/dose oral powder (Miralax) Allergies Allergy/AdvReac Type Severity Reaction Status Date / Time No Known Allergies Allergy Verified 09/17/21 18:28 General Stated Complaint: Abd Prob ANAMIKA: 3 Review of Systems All systems reviewed & are unremarkable except as noted in HPI and below PFSH All Active Problems (Updated 09/17/21 @ 23:23 by SONYA Levy) Pneumonia (Acute) Decrease in appetite (Acute) Weight loss (Acute) Acute urinary retention (Acute) Constipation (Acute) Hypophosphatemia (Acute) Hypokalemia (Acute) Hypervitaminosis D (Acute) Anemia associated with acute blood loss (Acute) Failure to thrive (Acute) Encephalopathy acute (Acute) GI bleeding (Chronic) Malnutrition (Acute) Rib fractures (Acute) COVID-19 (Acute) AMS (altered mental status) (Acute) Hematoma (Acute) Neck pain (Acute) Pain, dental (Acute) Acute lymphadenitis of neck (Acute) Constipation (Acute) Bladder wall thickening (Acute) Colon wall thickening (Acute) Fatigue (Acute) Altered mental status (Acute) Shortness of breath (Acute) Abdominal pain (Acute) COVID-19 (Acute) Hypokalemia (Acute) Mild bibasilar atelectasis (Acute) Confusion state (Acute) Alcohol abuse (Chronic) Tricuspid regurgitation (Chronic) Bilateral lower extremity edema (Acute) Acute on chronic diastolic (congestive) heart failure (Acute) CAD (coronary artery disease) (Chronic) Hypertension (Chronic) Encounter for colorectal cancer screening (Acute) Hydrocele, right (Acute 01/23/16) Epididymitis, right (Acute 08/02/16) Cerumen impaction (Acute) Medical History (Updated 09/17/21 @ 23:23 by SONYA Levy) Abnormal radiologic findings on diagnostic imaging of renal pelvis, ureter, or bladder Acute on chronic anemia Acute on chronic systolic CHF (congestive heart failure) Adenocarcinoma of esophagus Afib CAD (coronary artery disease) of artery bypass graft CHF, acute on chronic Diabetes mellitus Difficulty reading Essential hypertension GERD (gastroesophageal reflux disease) GI bleed History of GI bleed Hyperlipidemia Pancreatitis Prediabetes Pulmonary hypertension Recent weight loss Solitary pulmonary nodule Tobacco abuse Weight loss Surgical History cardiac cath Coronary Artery Bypass Gaft (CABG) EGD - IV Sedation Esophagectomy H/O colonoscopy (2007) H/O colonoscopy (04/14/18) dr geller, sigmoid diverticulosis, repeat 10 years History of esophagogastroduodenoscopy (EGD) (09/2017) History of hydrocelectomy History of right inguinal hernia repair repair times two sugrical flap of unhealing wound Family History Mother No problems noted. Father No problems noted. Social History Smoking/Tobacco Use Status: Current-Occasional Tobacco Type: cigarettes Smoking packs per day: 1 Smoking cigarettes per day: 20.0 Years smoked: 50 Smoking pack-years: 50.00 Smoking risk assessment performed?: Yes Alcohol Intake: current Alcohol Intake frequency: 0-2 drinks per day Alcohol type: beer Drug use: Never Substance use type: does not use What type of physical activity do you participate in: none Do you feel safe at home: Yes Do you feel safe in your relationship?: Yes Exam Const General: cooperative, well groomed and frail appearing Orientation: alert and oriented x3 HENMT Other: moist mucous membranes Eyes Pupils: PERRL Resp Effort & Inspection: normal respiratory effort Auscultation: clear to auscultation bilaterally Cardio Rate: regular rate Rhythm: regular rhythm GI Inspection: normal to inspection Auscultation: normal bowel sounds Other: Stool noted in rectal vault Other: Stool noted in rectal vault, tenderness, no blood noted, guaiac negative Skin General skin exam: no rashes or lesions noted Neuro General: patient alert and patient oriented x3 Extrem Other: Distal pulses intact Course Vital Signs Vital signs: Vital Signs Temperature 36.9 C 09/17/21 18:19 Pulse 87 09/17/21 18:19 Respiratory Rate 18 09/17/21 18:19 Blood Pressure 136/102 H 09/17/21 18:19 Pulse Oximetry 95 09/17/21 18:19 Temperature 36.7 C 09/17/21 18:45 Temperature Source Temporal Artery Scan 09/17/21 18:45 Pulse 72 09/17/21 21:54 Respiratory Rate 16 09/17/21 21:54 Respiratory Effort 09/17/21 19:29 Blood Pressure 109/78 09/17/21 21:54 Blood Pressure Position Sitting 09/17/21 18:19 Pulse Oximetry 97 09/17/21 21:54 Oxygen Delivery Method Room Air 09/17/21 18:45 Oxygen Flow Rate 0 09/17/21 18:45 Pain Level 0 04/14/22 19:29 Lab/Test Results Lab/Test Results: Laboratory Tests Range/Units 09/17/21 09/17/21 09/17/21 20:19 20:19 20:34 WBC (4.4-10.8) 10^3/uL 13.43 H RBC (4.36-5.78) 10^6/uL 5.35 Hgb (13.5-17.5) g/dL 16.1 Hct (40.0-50.0) % 49.6 MCV (80-95) fL 92.7 MCH (27.0-33.0) pg 30.1 MCHC (32.0-36.0) % 32.5 RDW (11.8-14.1) % 18.0 H Plt Count (130-400) 10^3/uL 191 MPV (8.0-11.0) fL 9.6 Immature Gran % 0.4 Neutrophils % 91.7 Lymphocytes % 3.1 Monocytes % 4.6 Eosinophils % 0.1 Basophils % 0.1 Nucleated RBC % (0.0-0.3) % 0.0 Absolute Neutrophils (1.2-6.7) 10^3/uL 12.32 H Absolute Lymphocytes (1.2-3.4) 10^3/uL 0.42 L Absolute Monocytes (0.1-0.8) 10^3/uL 0.62 Absolute Eosinophils (0.0-0.7) 10^3/uL 0.01 Absolute Basophils (0.0-0.2) 10^3/uL 0.01 Sodium (136-145) mmol/L 134 L Potassium (3.5-5.1) mmol/L 4.3 Chloride (98-107) mmol/L 98 Carbon Dioxide (21.0-32.0) mmol/L 25.1 Anion Gap (3-11) mmol/L 10.9 BUN (7-18) mg/dL 51 H Creatinine (0.70-1.30) mg/dL 1.3 Estimated GFR/1.73 m2 (mL/min/1.73m2) 54.42 Glucose (74-106) mg/dL 77 Calcium (8.5-10.1) mg/dL 9.6 Total Bilirubin (0.2-1.0) mg/dL 1.4 H AST (15-37) U/L 34 ALT (16-63) U/L 25 Alkaline Phosphatase (46-116) U/L 93 Total Protein (6.4-8.2) g/dL 7.6 Albumin (3.4-5.0) g/dL 3.5 Lipase (73-393) U/L 33 Urine Color (Yellow) Yellow Urine Clarity (Clear) Clear Urine pH (5-8) 6.0 Ur Specific Gervais (1.005-1.025) 1.025 Urine Protein (Negative) mg/dL Negative Urine Ketones (Negative) mg/dL Negative Urine Blood (Negative) Moderate H Urine Nitrite (Negative) Negative Urine Bilirubin (Negative) Negative Urine Urobilinogen (Up TO 0.2) EU/dL 0.2 Ur Leukocyte Esterase (Negative) Negative Urine RBC (0-2) HPF >50 H Urine WBC (0-5) HPF 3-5 Ur Epithelial Cells (Negative) HPF Negative Urine Crystals (Negative) HPF Negative Urine Bacteria (Negative) HPF Negative Urine Casts (Negative) LPF Negative Urine Mucus (Negative) Negative Urine Other (Negative) Negative Ur Culture Indicated? No Urine Glucose (Negative) mg/dL Negative
[2021-09-17] MEDS: Magnesium Citrate 300 ML BTL PO (23:33)
[2021-09-17] MEDS: Glycerin Adult Suppository JAR 1 SUPP PR (23:57)
[2021-09-17 23:58] VITALS: BP 122/78; PULSE 64; RESP 18; O2SAT 98
--- NOTE | 2021-09-23 08:51 | PDOC.ERCMACT ---
- If Service Date Differs Date of service: 09/23/21 Time of Service: 08:52 Care Management Activity Note Ilia was seen in tbe ED on 09/17/21 for acute urinary retention. BYRON receives a call from the triage nurse at Ilia's PCP's office on 09/22/21 inquiring whether a referral was made to Urology. The referral appears to not have been sent, so BYRON coordinates a referral to Urology for reassessment and possible Biggs catheter removal.
== END 2021-09-17 23:53 | disposition home or self-care (01) ==
PROVIDERS: Emergency Provider Physician Assistant; PCP Family Medicine
DX: R33.9 Retention of urine, unspecified (principal); K59.00 Constipation, unspecified
CPT/HCPCS: 36415; 51702; 80053; 83690; 96360; 99285; 74177; 81003; 81015; 85025; 99284; J3490

== ENCOUNTER 2021-10-09 04:42 | Inpatient (IN) | payer MEDICARE, MEDICAID, SELFPAY ==
[2021-10-09] VITALS (69 sets, daily range): BP systolic 99–127; BP diastolic 63–85; PULSE 62–108; RESP 11–27; TEMP 35.9–37; O2SAT 96–100
--- NOTE | 2021-10-09 04:45 | DI.CT_ITS ---
Exam(s) CT CHEST/ABD/PEL WO EXAM: CT CHEST/ABD/PEL WO CLINICAL HISTORY: fall, abdominal pain, failure to thrive, smoker. TECHNIQUE: Imaging Protocol: Axial computed tomography images with coronal and sagittal reformatted images were created and reviewed CONTRAST MATERIAL: Intravenous: none Oral: None COMPARISON: CT CT CHEST PE ABD PELVIS W from 03/20/[address] ABDOMEN PELVIS W from 09/17/2021 FINDINGS: CHEST: LUNGS: There are advanced emphysematous-COPD changes.. There is a 1.5 x 1.4 cm somewhat suspicious n odular infiltrate in the lateral segment of the right middle lobe., not previously present on chest C T scan of 03/20/2021. Also similar size nodular infiltrate in the anterior basal segment of the righ t lower lobe, not previously present. Infiltrate noted in the posterior basal segment of the right l ower lobe, not evident on 03 20 21 but unchanged from the uppermost images of an abdominal CT scan pe rformed 09/17/2021. No pleural effusion. In the opposite-left lung there is also some infiltrate in the left lower lobe again noted, not assoc iated with pleural effusion. Mild suprahilar infiltrate on the left side also noted. There are no significant focal findings in the trachea and mainstem bronchi. MEDIASTINUM: No evidence of significant mediastinal hematoma. No obvious hilar adenopathy. Slightly prominent subcarinal lymph nodes are unchanged. Thyroid nodules evident in both lobes. CARDIAC: Sternotomy wires. Cardiomegaly. Coronary artery calcification.Caliber of the thoracic aort a is within normal limits. OSSEOUS: Sternotomy wires. Nonacute left rib fractures are again noted. Healed right-sided rib frac tures again noted.. No compression fractures evident. ABDOMEN: There is no ascites. Hiatal hernia again noted. LIVER: No evidence of obvious hepatic laceration on this noninfused study. No perihepatic fluid. GALLBLADDER/BILIARY: No obvious gallbladder pathology. CBD is not dilated. PANCREAS: Heavy calcification is noted in the head and uncinate process of the pancreas. No obvious pancreatic mass nor obvious dilatation of the pancreatic duct. No peripancreatic fluid. SPLEEN: No obvious laceration on this noninfused study. Capsular calcification again noted. ADRENALS: There are no new significant adrenal masses. KIDNEYS: No evidence of renal laceration. There is a nonobstructive 3 millimeter calculus in lower p ole of the right kidney. There is also a nonobstructive 1 millimeter calculus in the mid level left kidney. No evidence of renal trauma. No subcapsular hematomas. No perinephric fluid.. No renal ma sses nor prominent cysts. ABDOMINAL AORTA: Heavily calcified but not significantly enlarged LYMPH NODES: There is no retroperitoneal nor para-aortic adenopathy. ABDOMINAL WALL/GI: No evidence of significant anterior abdominal wall nor inguinal hernia. Bowel gas pattern exhibits no obstruction. No evidence of bowel wall hematoma. No obvious mesenteri c hematoma. PELVIS: Right inguinal hernia again noted which contains fluid, unchanged. Does not appear to be a b owel loops therein. LYMPH NODES: There is no intrapelvic nor inguinal adenopathy. GI: No evidence of appendicitis.No evidence of sigmoid diverticulitis. URINARY BLADDER: Biggs catheter is again noted in the urinary bladder. The bladder is not collapsed. REPRODUCTIVE: Prostate not significantly enlarged. OSSEOUS: No significant osseous lesions. No acute fractures evident. Advanced disc space narrowing L4-5 noted-chronic IMPRESSION: 1. No significant acute trauma sequelae in the chest, abdomen, and pelvis, realized limitations of a noninfused study. 2. In addition to the lung infiltrates described above, there are nodular infiltrates in the right mi ddle lobe and right lower lobe which are somewhat suspicious and were not previously present and will require appropriate follow-up to rule out malignancy in this severe COPD patient. 3. There are no pleural effusions. There are chronic healed and partially healed rib fractures. No acute rib fractures. No pneumothorax. No pleural effusions. 4. Other nonacute findings as described above. Report called to ER physician RADIATION DOSE DELIVERED: 576.72mGy.cm Total DLP DATA REPOSITORY: All CT scans at this facility are submitted to the National Radiology Data Registry (NRDR) Dose Index Registry (DIR) with the [employer] ([employer]). RADIATION OPTIMIZATION: All CT scans at this facility use at least one of these dose optimization te chniques: automated exposure control; mA and/or kV adjustment per patient size (includes targeted exa ms where dose is matched to clinical indication); or iterative reconstruction.
--- NOTE | 2021-10-09 04:45 | DI.CT_ITS ---
Exam(s) CT HEAD WO EXAM: CT HEAD WO CLINICAL HISTORY: altered mentation. TECHNIQUE: Imaging Protocol: Axial computed tomography images with coronal and sagittal reformatted images were created and reviewed COMPARISON: CT CT HEAD WO from 04/10/2021 FINDINGS: There are no skull fractures nor fluid in the visualized paranasal sinuses. There is no evidence of intracranial hemorrhage, mass effect, or shift of midline structures. There are no extra-axial fluid collections. The ventricles are not enlarged or shifted and there is no blo od within the ventricular system nor within the basal cisterns. There is calcification of the vertebral arteries at the skull base, this in addition to calcification within the internal carotid arteries at the skull base. There is some periventricular white matter hypodensity consistent with chronic small vessel ischemic changes but this appears unchanged from 04/10/2021. IMPRESSION: No acute intracranial findings on this noninfused CT scan of the brain. Chronic small-vessel white matter ischemic changes, exhibiting minimal if any significant change comp ared to 04/10/2021 CT scan RADIATION DOSE DELIVERED: 729.71mGy.cm Total DLP DATA REPOSITORY: All CT scans at this facility are submitted to the National Radiology Data Registry (NRDR) Dose Index Registry (DIR) with the [employer] ([employer]). RADIATION OPTIMIZATION: All CT scans at this facility use at least one of these dose optimization te chniques: automated exposure control; mA and/or kV adjustment per patient size (includes targeted exa ms where dose is matched to clinical indication); or iterative reconstruction.
[2021-10-09 05:28] LABS: Lactate 1.1 mmol/L (0.6-1.4)
[2021-10-09 05:33] LABS: Abs Immature Grans 0.12 10^3/uL (0.0-0.06); Absolute Basophil Count 0.03 10^3/uL (0.0-0.2); Absolute Eosinophil Count 0.03 10^3/uL (0.0-0.7); Absolute Lymphocyte Count 0.73 10^3/uL (1.2-3.4); Absolute Monocyte Count 0.55 10^3/uL (0.1-0.8); Absolute Neutrophil Count 9.17 10^3/uL (1.2-6.7); Basophils % 0.3; Eosinophils % 0.3; HCT 46.2 % (40.0-50.0); HGB 14.7 g/dL (13.5-17.5); Immature Grans % 1.1; Lymphocytes % 6.9; MCH 30.2 pg (27.0-33.0); MCHC 31.8 % (32.0-36.0); MCV 95 fL (80-95); MPV 9.6 fL (8.0-11.0); Monocytes % 5.2; Neutrophils % 86.2; Platelet Count 249 10^3/uL (130-400); RBC 4.86 10^6/uL (4.36-5.78); RDW 17.5 % (11.8-14.1); RDW-SD 60.1 fL; WBC 10.63 10^3/uL (4.4-10.8)
[2021-10-09 05:44] LABS: Lipase 32 U/L (73-393)
[2021-10-09 06:07] LABS: ALT 37 U/L (16-63); AST 30 U/L (15-37); Albumin 2.3 g/dL (3.4-5.0); Alkaline Phosphatase 162 U/L (46-116); Anion Gap 10.3 mmol/L (3-11); BUN 39 mg/dL (7-18); CO2 23.7 mmol/L (21.0-32.0); CREATININE 0.8 mg/dL (0.70-1.30); Calcium 9.1 mg/dL (8.5-10.1); Chloride 106 mmol/L (98-107); Glucose 78 mg/dL (74-106); Magnesium 2.1 mg/dL (1.8-2.4); Potassium 3.9 mmol/L (3.5-5.1); Sodium 140 mmol/L (136-145); Troponin I < 50 ng/L (<or=60)
--- NOTE | 2021-10-09 06:47 | W.ED.GENAD ---
Discharge Plan Disposition Patient Disposition: STILL A PATIENT Condition: Serious Discharge Details Chief Complaint: GenMedical Clinical Impression: Fall, Altered mental status, Abdominal pain, Generalized weakness, Skin tear of left elbow without complication Primary Care Provider: Silvina Perdue ED Provider: Tod Veloz Home Meds and New Rx's Prescriptions: No Action sucralfate [Carafate] 100 mg/mL suspension 10 ml PO QID 0RF lidocaine 5 % cream 1 applic TP QID 0RF Rx Instructions: apply to lower back multivitamin capsule 1 cap PO DAILY 0RF Combivent Respimat 20-100 mcg/actuation mist 2 puff IH TID 0RF mirtazapine 7.5 mg tablet 7.5 mg PO DAILY 0RF Spiriva with HandiHaler 18 mcg capsule, w/inhalation device 1 cap inhalation DAILY 0RF Rx Instructions: puncture 1 cap using device; one dose = 2 inhalations nicotine 21-14-7 mg/24 hr patch, TD daily, sequential See Rx Instructions transdermal .COMPLEX 0RF Rx Instructions: apply 1-21 mg NICOTINE PATCH daily for 28 days; follow with 1-14 mg PATCH daily for 14 days, then 1-7mg PATCH daily for 14 days transdermal Ensure Liquid PO 0RF folic acid 1 MG tablet 1 mg PO DAILY 0RF bupropion HCl (smoking deter) 150 MG tablet extended release 12 hr 150 mg PO BID 0RF aspirin [Ecotrin Low Strength] 81 MG tablet,delayed release (DR/EC) 81 mg PO DAILY 0RF atorvastatin [Lipitor] 10 MG tablet 10 mg PO HS 0RF nitroglycerin [Nitrostat] 0.4 MG tablet, sublingual 0.4 mg Sublingual . DIRECTED PRN (Reason: Chest Pain) 0RF Protocol: Nitroglycerin-Angina Condition: Angina Dose/Route: 5 mcg/min Instruction: Titrate by 5 mcg/min every 3-5 minutes Condition: No response by 20 mcg/min Dose/Route: 30 mcg/min Instruction: Titrate by 10-20 mcg/min every 3-5 minutes Protocol Text: Angina, Not responsive to sublingual nitroglycerin and beta blockers a) Dosage is affected by the type of infusion set used. When nonabsorptive tubing is used, doses must be reduced. b) Using nonabsorptive tubing, the initial dose should be 5 micrograms/minute (mcg/min). Titration should be guided by clinical response, with more caution exercised as partial response is noted. Initial titration should be in 5 mcg/min increments at intervals of 3 to 5 minutes. If no response in noted at 20 mcg/min, increments of 10 to 20 mcg/min can be used. Dosage increments should be smaller and less frequent once some hemodynamic response is observed. c) Using standard polyvinyl chloride tubing, the usual starting dose in clinical studies has been 25 micrograms/minute or more. Continuous monitoring of hemodynamic parameters MUST BE PERFORMED during titration to optimal dosing. d) Typically, maximum infusion rates are defined by 20% or greater reductions in systolic blood pressure or 10% or greater increases in heart rate over baseline values. e) However, because of the evidence of tolerance and the possibility of methemoglobinemia, ethanol intoxication, and heparin resistance with high infusion rates, infusion rates of less than 40 micrograms/minute have been recommended. Source-MDconnectMEedex (03/30/12) cholecalciferol (vitamin D3) 1,000 UNITS tablet 2,000 units PO DAILY 0RF gabapentin 300 mg capsule 300 mg PO TID 0RF Ensure Original Liquid See Rx Instructions .ROUTE .COMPLEX 0RF Rx Instructions: Drink 1 bottle 3 x daily hydrocodone-acetaminophen 10-325 mg tablet 1 tab PO TID 0RF Label Comments: TAKE ONE TABLET BY MOUTH THREE TIMES A DAY FOR PAIN spironolactone 25 mg tablet 25 mg PO DAILY 0RF Label Comments: TAKE ONE TABLET BY MOUTH EVERY DAY bumetanide 2 mg tablet See Rx Instructions .ROUTE .COMPLEX Qty: 20 0RF Rx Instructions: take 2 tabs in the morning (4 mg) and one tab in the afternoon (2 mg) polyethylene glycol 3350 [Miralax] 17 gram/dose powder 17 g PO BID Qty: 238 0RF pantoprazole 40 MG tablet,delayed release (DR/EC) 40 mg PO DAILY 0RF metoprolol tartrate 25 mg Tablet 12.5 mg PO BID 0RF tamsulosin 0.4 mg capsule 0.4 mg PO QHS 0RF Label Comments: TAKE ONE CAPSULE BY MOUTH EVERY EVENING ferrous sulfate [FeroSul] 325 mg (65 mg iron) tablet 325 mg PO DAILY 0RF tiotropium bromide 18 mcg Capsule, W/Inhalation Device 18 mcg INHALATION DAILY 0RF Medical Decision Making 71-year-old male with multiple medical problems noted in medical record including A. fib, coronary artery disease, CHF, A. fib, COPD, adenocarcinoma of the esophagus, here with generalized weakness, cachectic, inability to ambulate, recent fall, complaining of generalized abdominal discomfort. Consider acute life-threatening intracranial traumatic hemorrhage. Will CT head. Consider acute life-threatening intra-abdominal surgical process. Will CT abdomen and include chest given poor historian. Labs reviewed and nondiagnostic. Concern for failure to thrive. Patient cannot be safely discharged home. Plan to admit for likely rehab placement. Lab Data Lab results reviewed: Yes I reviewed the patient's lab results. Labs: Laboratory Tests Range/Units 10/09/21 10/09/21 10/09/21 05:15 05:15 05:15 WBC (4.4-10.8) 10^3/uL RBC (4.36-5.78) 10^6/uL Hgb (13.5-17.5) g/dL Hct (40.0-50.0) % MCV (80-95) fL MCH (27.0-33.0) pg MCHC (32.0-36.0) % RDW (11.8-14.1) % Plt Count (130-400) 10^3/uL MPV (8.0-11.0) fL Immature Gran % Neutrophils % Lymphocytes % Monocytes % Eosinophils % Basophils % Nucleated RBC % (0.0-0.3) % Absolute Neutrophils (1.2-6.7) 10^3/uL Absolute Lymphocytes (1.2-3.4) 10^3/uL Absolute Monocytes (0.1-0.8) 10^3/uL Absolute Eosinophils (0.0-0.7) 10^3/uL Absolute Basophils (0.0-0.2) 10^3/uL VBG Lactate (0.6-1.4) mmol/L 1.1 Sodium (136-145) mmol/L 140 Potassium (3.5-5.1) mmol/L 3.9 Chloride (98-107) mmol/L 106 Carbon Dioxide (21.0-32.0) mmol/L 23.7 Anion Gap (3-11) mmol/L 10.3 BUN (7-18) mg/dL 39 H Creatinine (0.70-1.30) mg/dL 0.8 Estimated GFR/1.73 m2 (mL/min/1.73m2) >= 60.00 Glucose (74-106) mg/dL 78 Calcium (8.5-10.1) mg/dL 9.1 Magnesium (1.8-2.4) mg/dL 2.1 Total Bilirubin (0.2-1.0) mg/dL 1.0 AST (15-37) U/L 30 ALT (16-63) U/L 37 Alkaline Phosphatase (46-116) U/L 162 H Troponin I (<or=60) ng/L < 50 Total Protein (6.4-8.2) g/dL 7.0 Albumin (3.4-5.0) g/dL 2.3 L Lipase (73-393) U/L 32 Range/Units 10/09/21 05:15 WBC (4.4-10.8) 10^3/uL 10.63 RBC (4.36-5.78) 10^6/uL 4.86 Hgb (13.5-17.5) g/dL 14.7 Hct (40.0-50.0) % 46.2 MCV (80-95) fL 95 MCH (27.0-33.0) pg 30.2 MCHC (32.0-36.0) % 31.8 L RDW (11.8-14.1) % 17.5 H Plt Count (130-400) 10^3/uL 249 MPV (8.0-11.0) fL 9.6 Immature Gran % 1.1 Neutrophils % 86.2 Lymphocytes % 6.9 Monocytes % 5.2 Eosinophils % 0.3 Basophils % 0.3 Nucleated RBC % (0.0-0.3) % 0.0 Absolute Neutrophils (1.2-6.7) 10^3/uL 9.17 H Absolute Lymphocytes (1.2-3.4) 10^3/uL 0.73 L Absolute Monocytes (0.1-0.8) 10^3/uL 0.55 Absolute Eosinophils (0.0-0.7) 10^3/uL 0.03 Absolute Basophils (0.0-0.2) 10^3/uL 0.03 VBG Lactate (0.6-1.4) mmol/L Sodium (136-145) mmol/L Potassium (3.5-5.1) mmol/L Chloride (98-107) mmol/L Carbon Dioxide (21.0-32.0) mmol/L Anion Gap (3-11) mmol/L BUN (7-18) mg/dL Creatinine (0.70-1.30) mg/dL Estimated GFR/1.73 m2 (mL/min/1.73m2) Glucose (74-106) mg/dL Calcium (8.5-10.1) mg/dL Magnesium (1.8-2.4) mg/dL Total Bilirubin (0.2-1.0) mg/dL AST (15-37) U/L ALT (16-63) U/L Alkaline Phosphatase (46-116) U/L Troponin I (<or=60) ng/L Total Protein (6.4-8.2) g/dL Albumin (3.4-5.0) g/dL Lipase (73-393) U/L HPI General Date/Time Provider Initiated Documentation: 10/09/21 04:44. Limitations to Documentation: altered mental status. Information obtained by: patient. HPI Narrative: 71-year-old male with multiple medical problems here with altered mental status. Patient apparently has had increased general weakness at home per his roommate. Patient now unable to ambulate without falling. Patient did have recent fall. Patient is poor historian which limits history. Patient notes some generalized abdominal discomfort. Related Data Home Medications Medication Instructions Recorded Confirmed bupropion HCl (smoking deter) 150 150 mg PO BID 08/04/12 06/23/21 mg tablet,12 hr sustained-release(smoking deterrent) folic acid 1 mg tablet 1 mg PO DAILY 08/04/12 06/23/21 aspirin 81 mg tablet,delayed 81 mg PO DAILY 04/09/13 06/23/21 release (Ecotrin Low Strength) atorvastatin 10 mg tablet (Lipitor) 10 mg PO HS 01/25/15 06/23/21 cholecalciferol (vitamin D3) 25 2,000 units PO DAILY 04/12/16 06/23/21 mcg (1,000 unit) tablet nitroglycerin 0.4 mg sublingual 0.4 mg SUBLINGUAL . DIRECTED PRN 04/12/16 06/23/21 tablet (Nitrostat) pantoprazole 40 mg tablet,delayed 40 mg PO DAILY 01/15/17 06/23/21 release lidocaine 5 % topical cream 1 applic TP QID 02/10/18 06/23/21 multivitamin 1 cap PO DAILY 02/10/18 06/23/21 sucralfate 100 mg/mL oral 10 ml PO QID 02/10/18 06/23/21 suspension (Carafate) metoprolol tartrate 25 mg tablet 12.5 mg PO BID 04/12/18 06/23/21 ipratropium 20 mcg-albuterol 100 2 puff IH TID 05/02/19 06/23/21 mcg/actuation mist for inhalation (Combivent Respimat) food supplemt, lactose-reduced See Rx Instructions .ROUTE .COMPLEX 01/15/20 06/23/21 (Ensure Original) gabapentin 300 mg capsule 300 mg PO TID 01/15/20 06/23/21 hydrocodone 10 mg-acetaminophen 1 tab PO TID 07/09/20 06/23/21 325 mg tablet spironolactone 25 mg tablet 25 mg PO DAILY 07/10/20 06/23/21 ferrous sulfate 325 mg (65 mg 325 mg PO DAILY 03/05/21 06/23/21 iron) tablet (FeroSul) tamsulosin 0.4 mg capsule 0.4 mg PO QHS 03/05/21 06/23/21 tiotropium bromide 18 mcg capsule 18 mcg INHALATION DAILY 03/05/21 06/23/21 with inhalation device bumetanide 2 mg tablet See Rx Instructions .ROUTE 06/24/21 06/23/21 .COMPLEX #20 tab polyethylene glycol 3350 17 17 g PO BID #238 g 09/17/21 gram/dose oral powder (Miralax) food supplemt, lactose-reduced ml PO 09/21/21 (Ensure) mirtazapine 7.5 mg tablet 7.5 mg PO DAILY 09/21/21 nicotine See Rx Instructions TRANSDERMAL 09/21/21 21mg/24hr-14mg/24hr-7mg/24hr daily .COMPLEX transderm patches,sequentl tiotropium bromide 18 mcg capsule 1 cap INHALATION DAILY 09/21/21 with inhalation device (Spiriva with HandiHaler) Previous Rx's Medication Instructions Recorded bumetanide 2 mg tablet See Rx Instructions .ROUTE 06/24/21 .COMPLEX #20 tab polyethylene glycol 3350 17 17 g PO BID #238 g 09/17/21 gram/dose oral powder (Miralax) Allergies Allergy/AdvReac Type Severity Reaction Status Date / Time No Known Allergies Allergy Verified 09/17/21 18:28 General Stated Complaint: GenMedical ANAMIKA: 3 Review of Systems All systems reviewed & are unremarkable except as noted in HPI and below Constitutional Constitutional: Denies fever(s) Gastrointestinal Gastrointestinal: Reports abdominal pain PFSH All Active Problems (Updated 10/09/21 @ 07:48 by Tod Veloz MD) Fall (Acute) Altered mental status (Acute) Abdominal pain (Acute) Generalized weakness (Acute) Skin tear of left elbow without complication (Acute) Acute urinary retention (Acute) Constipation (Acute) Hypophosphatemia (Acute) Hypokalemia (Acute) Hypervitaminosis D (Acute) Anemia associated with acute blood loss (Acute) Failure to thrive (Acute) Encephalopathy acute (Acute) GI bleeding (Chronic) Malnutrition (Acute) Rib fractures (Acute) COVID-19 (Acute) AMS (altered mental status) (Acute) Hematoma (Acute) Neck pain (Acute) Pain, dental (Acute) Acute lymphadenitis of neck (Acute) Constipation (Acute) Bladder wall thickening (Acute) Colon wall thickening (Acute) Fatigue (Acute) Altered mental status (Acute) Shortness of breath (Acute) Abdominal pain (Acute) COVID-19 (Acute) Hypokalemia (Acute) Mild bibasilar atelectasis (Acute) Confusion state (Acute) Alcohol abuse (Chronic) Tricuspid regurgitation (Chronic) Bilateral lower extremity edema (Acute) Acute on chronic diastolic (congestive) heart failure (Acute) CAD (coronary artery disease) (Chronic) Hypertension (Chronic) Encounter for colorectal cancer screening (Acute) Hydrocele, right (Acute 01/23/16) Epididymitis, right (Acute 08/02/16) Cerumen impaction (Acute) Medical History Abnormal radiologic findings on diagnostic imaging of renal pelvis, ureter, or bladder Acute on chronic anemia Acute on chronic systolic CHF (congestive heart failure) Adenocarcinoma of esophagus Afib Alcohol abuse, continuous drinking behavior Anemia CAD (coronary artery disease) of artery bypass graft CHF, acute on chronic Diabetes mellitus Difficulty reading Edema Essential hypertension GERD (gastroesophageal reflux disease) GI bleed H/O malignant neoplasm of stomach Heart failure, left, with LVEF 41-49% History of GI bleed Hoarseness Hyperlipidemia Kyphoscoliosis Low back pain Pancreatitis Prediabetes Protein malnutrition Pulmonary hypertension Recent weight loss Solitary pulmonary nodule Tinnitus, left Tobacco abuse Weight loss Surgical History cardiac cath Coronary Artery Bypass Gaft (CABG) EGD - IV Sedation Esophagectomy H/O colonoscopy (2007) H/O colonoscopy (04/14/18) dr geller, sigmoid diverticulosis, repeat 10 years History of esophagogastroduodenoscopy (EGD) (09/2017) History of hydrocelectomy History of right inguinal hernia repair repair times two sugrical flap of unhealing wound Family History Mother No problems noted. Father No problems noted. Social History Smoking/Tobacco Use Status: Current-Occasional Tobacco Type: cigarettes Smoking packs per day: 1 Smoking cigarettes per day: 20.0 Years smoked: 50 Smoking pack-years: 50.00 Smoking risk assessment performed?: Yes Alcohol Intake: current Alcohol Intake frequency: 0-2 drinks per day Alcohol type: beer Drug use: Never Substance use type: does not use What type of physical activity do you participate in: none Do you feel safe at home: Yes Do you feel safe in your relationship?: Yes Exam Const General: cooperative and no acute distress Nutritional Appearance: cachectic Orientation: alert and awake HENMT Head: normocephalic and atraumatic Mouth: moist mucous membranes Eyes Conjunctivae: normal conjunctivae Sclera: normal sclerae Resp Effort & Inspection: normal respiratory effort Auscultation: clear to auscultation bilaterally, no rales, no rhonchi and no wheezes Cardio Rate: regular rate and not tachycardic Rhythm: regular rhythm GI Palpation: soft, not firm, no guarding, no masses, not rigid and nontender Other: cervantes catheter Back/Spine/Pelvis Cervical Spine: No cervical spinal tenderness Thoracic/Lumbar Spine: No thoracic spinal tenderness and No lumbar spinal tenderness Skin General skin exam: no rashes or lesions noted Neuro General: patient alert, patient awake, oriented Patient Orientation: Person, Place and Confused and tone normal Cognition: abnormal cognition Speech: speech normal Motor: other (Generalized weakness) Extrem General: no edema Left upper extremity: elbow/forearm Details: normal ROM and abrasion; Negative for no tenderness Course Vital Signs Vital signs: Vital Signs Pulse 83 10/09/21 04:42 Blood Pressure 127/76 10/09/21 04:42 Pulse 63 10/09/21 06:34 Pulse 92 H 10/09/21 06:34 Respiratory Rate 17 10/09/21 06:34 Respiratory Effort 10/09/21 04:54 Blood Pressure 108/71 10/09/21 06:34 Blood Pressure Mean 78 10/09/21 06:34 Blood Pressure Position Supine 10/09/21 04:44 Pulse Oximetry 97 10/09/21 06:34 Oxygen Delivery Method Room Air 10/09/21 04:44 Oxygen Flow Rate 0 10/09/21 04:44 Pain Level 5 10/09/21 04:44 Lab/Test Results Lab/Test Results: Laboratory Tests Range/Units 10/09/21 10/09/21 10/09/21 05:15 05:15 05:15 WBC (4.4-10.8) 10^3/uL RBC (4.36-5.78) 10^6/uL Hgb (13.5-17.5) g/dL Hct (40.0-50.0) % MCV (80-95) fL MCH (27.0-33.0) pg MCHC (32.0-36.0) % RDW (11.8-14.1) % Plt Count (130-400) 10^3/uL MPV (8.0-11.0) fL Immature Gran % Neutrophils % Lymphocytes % Monocytes % Eosinophils % Basophils % Nucleated RBC % (0.0-0.3) % Absolute Neutrophils (1.2-6.7) 10^3/uL Absolute Lymphocytes (1.2-3.4) 10^3/uL Absolute Monocytes (0.1-0.8) 10^3/uL Absolute Eosinophils (0.0-0.7) 10^3/uL Absolute Basophils (0.0-0.2) 10^3/uL VBG Lactate (0.6-1.4) mmol/L 1.1 Sodium (136-145) mmol/L 140 Potassium (3.5-5.1) mmol/L 3.9 Chloride (98-107) mmol/L 106 Carbon Dioxide (21.0-32.0) mmol/L 23.7 Anion Gap (3-11) mmol/L 10.3 BUN (7-18) mg/dL 39 H Creatinine (0.70-1.30) mg/dL 0.8 Estimated GFR/1.73 m2 (mL/min/1.73m2) >= 60.00 Glucose (74-106) mg/dL 78 Calcium (8.5-10.1) mg/dL 9.1 Magnesium (1.8-2.4) mg/dL 2.1 Total Bilirubin (0.2-1.0) mg/dL 1.0 AST (15-37) U/L 30 ALT (16-63) U/L 37 Alkaline Phosphatase (46-116) U/L 162 H Troponin I (<or=60) ng/L < 50 Total Protein (6.4-8.2) g/dL 7.0 Albumin (3.4-5.0) g/dL 2.3 L Lipase (73-393) U/L 32 Range/Units 10/09/21 05:15 WBC (4.4-10.8) 10^3/uL 10.63 RBC (4.36-5.78) 10^6/uL 4.86 Hgb (13.5-17.5) g/dL 14.7 Hct (40.0-50.0) % 46.2 MCV (80-95) fL 95 MCH (27.0-33.0) pg 30.2 MCHC (32.0-36.0) % 31.8 L RDW (11.8-14.1) % 17.5 H Plt Count (130-400) 10^3/uL 249 MPV (8.0-11.0) fL 9.6 Immature Gran % 1.1 Neutrophils % 86.2 Lymphocytes % 6.9 Monocytes % 5.2 Eosinophils % 0.3 Basophils % 0.3 Nucleated RBC % (0.0-0.3) % 0.0 Absolute Neutrophils (1.2-6.7) 10^3/uL 9.17 H Absolute Lymphocytes (1.2-3.4) 10^3/uL 0.73 L Absolute Monocytes (0.1-0.8) 10^3/uL 0.55 Absolute Eosinophils (0.0-0.7) 10^3/uL 0.03 Absolute Basophils (0.0-0.2) 10^3/uL 0.03 VBG Lactate (0.6-1.4) mmol/L Sodium (136-145) mmol/L Potassium (3.5-5.1) mmol/L Chloride (98-107) mmol/L Carbon Dioxide (21.0-32.0) mmol/L Anion Gap (3-11) mmol/L BUN (7-18) mg/dL Creatinine (0.70-1.30) mg/dL Estimated GFR/1.73 m2 (mL/min/1.73m2) Glucose (74-106) mg/dL Calcium (8.5-10.1) mg/dL Magnesium (1.8-2.4) mg/dL Total Bilirubin (0.2-1.0) mg/dL AST (15-37) U/L ALT (16-63) U/L Alkaline Phosphatase (46-116) U/L Troponin I (<or=60) ng/L Total Protein (6.4-8.2) g/dL Albumin (3.4-5.0) g/dL Lipase (73-393) U/L
[2021-10-09 07:51] LABS: Source Nasal/Nares
--- NOTE | 2021-10-09 08:10 | DI.VRAD_ITS ---
PROCEDURE INFORMATION: Exam: CT Head Without Contrast Exam date and time: 10/09/2021 6:25 AM Age: 71 years old Clinical indication: Altered mental status/memory loss; Confusion or disorientation; Additional info: AMS TECHNIQUE: Imaging protocol: Computed tomography of the head without contrast. Radiation optimization: All CT scans at this facility use at least one of these dose optimization techniques: automated exposure control; mA and/or kV adjustment per patient size (includes targeted exams where dose is matched to clinical indication); or iterative reconstruction. COMPARISON: CT HEAD WO 04/10/2021 4:27 PM FINDINGS: Brain: Normal. No hemorrhage. Unremarkable white matter. No mass effect. Cerebral ventricles: No ventriculomegaly. Paranasal sinuses: Visualized sinuses are unremarkable. No fluid levels. Mastoid air cells: Visualized mastoid air cells are well aerated. Bones/joints: Unremarkable. No acute fracture. Soft tissues: Unremarkable. IMPRESSION: No acute intracranial abnormality. Dictated and Authenticated by: Gabe Rincon MD. Ordering:ALECIA Baron MD
--- NOTE | 2021-10-09 08:22 | DI.VRAD_ITS ---
PROCEDURE INFORMATION: Exam: CT Chest Without Contrast; Diagnostic Exam date and time: 10/09/2021 6:28 AM Age: 71 years old Clinical indication: Pain and injury or trauma; Fall; Generalized; Abdominal pain; Blunt trauma (contusions or hematomas); Injury date: 10/09/21; Additional info: Fall, abd pain, failure to thrive, AMS TECHNIQUE: Imaging protocol: Diagnostic computed tomography of the chest without contrast. Radiation optimization: All CT scans at this facility use at least one of these dose optimization techniques: automated exposure control; mA and/or kV adjustment per patient size (includes targeted exams where dose is matched to clinical indication); or iterative reconstruction. COMPARISON: 1. CT ABDOMEN PELVIS W 09/17/2021 9:[address] CHEST PE ABD PELVIS W 04/10/2021 4:34 PM FINDINGS: Thyroid: The thyroid gland is heterogeneous in attenuation. Lungs: Diffuse emphysematous change. There is airspace opacification within the right upper lobe, right middle lobe, right lower lobe, and left lower lobe. Pleural spaces: No pleural effusion, no pneumothorax. Heart: Dense atherosclerotic plaque within the thoracic aorta and branch vessels, including the coronary arteries. Changes of coronary artery bypass grafting. Lymph nodes: Unremarkable. No enlarged lymph nodes. Vasculature: Unremarkable. No aortic aneurysm. Bones/joints: Median sternotomy wires are present. Remote left-sided rib fractures. Soft tissues: Unremarkable. IMPRESSION: Patchy airspace disease noted throughout the right lung as well as the left lower lobe, suggestive of multifocal pneumonia. Follow-up post treatment is recommended to ensure resolution. PROCEDURE INFORMATION: Exam: CT Abdomen And Pelvis Without Contrast Exam date and time: 10/09/2021 6:28 AM Age: 71 years old Clinical indication: Pain and injury or trauma; Fall; Generalized; Abdominal pain; Blunt trauma (contusions or hematomas); Injury date: 10/09/21; Additional info: Fall, abd pain, failure to thrive, AMS TECHNIQUE: Imaging protocol: Computed tomography of the abdomen and pelvis without contrast. Radiation optimization: All CT scans at this facility use at least one of these dose optimization techniques: automated exposure control; mA and/or kV adjustment per patient size (includes targeted exams where dose is matched to clinical indication); or iterative reconstruction. COMPARISON: 1. CT ABDOMEN PELVIS W 09/17/2021 9:[address] CHEST PE ABD PELVIS W 04/10/2021 4:34 PM FINDINGS: Liver: Normal. No mass. Gallbladder and bile ducts: Normal. No calcified stones. No ductal dilation. Pancreas: Normal. No ductal dilation. Spleen: Normal. No splenomegaly. Adrenal glands: Normal. No mass. Kidneys and ureters: Nonobstructive nephrolithiasis on the right. Kidneys are otherwise unremarkable. Stomach and bowel: Unremarkable. No obstruction. No mucosal thickening. Appendix: The appendix is nonvisualized, however no inflammatory changes are detected within the right lower quadrant. Intraperitoneal space: Unremarkable. No free air. No significant fluid collection. Vasculature: Dense atherosclerotic plaque within the abdominal aorta and branch vessels. Infrarenal abdominal aortic ectasia 2.5 x 2.5 cm. Lymph nodes: Unremarkable. No enlarged lymph nodes. Urinary bladder: Biggs catheter is noted within the bladder. Reproductive: Unremarkable as visualized. Bones/joints: Unremarkable. No acute fracture. Soft tissues: Fluid-filled left inguinal hernia. IMPRESSION: No acute findings are evident. Dictated and Authenticated by: Gabe Rincon MD. Ordering:ALECIA Baron MD
--- NOTE | 2021-10-09 08:25 | ED.PROG_ITS ---
Date of service: 10/09/21 Time of Service: 08:25 Medical Decision Making Received signout from Dr. Veloz. Please see his note regarding details of the initial presentation, exam and plan of care. Patient CT of the head was unremarkable. CT of the chest please see the formal report; reveals new right lung nodules as well as infiltrates. There is evidence of chronic rib fractures. Patient remained stable but extremely cachectic, weak,, and will require admission. Sign Out Sign Out Data: Sign Out Comment: care signed out to Dr. Broderick, plan to follow-up on CTs and admit for generalized weakness. I spoke with Dr. Monroe regarding case. Last updated by Tod Veloz MD at 10/09/21 07:49 Discharge Plan Disposition Patient Disposition: [facility] INPATIENT Condition: Serious Discharge Details Clinical Impression: Fall, Altered mental status, Abdominal pain, Generalized weakness, Skin tear of left elbow without complication Primary Care Provider: Silvina Perdue ED Provider: Gregor Broderick Home Meds and New Rx's Prescriptions: No Action sucralfate [Carafate] 100 mg/mL suspension 10 ml PO QID 0RF lidocaine 5 % cream 1 applic TP QID 0RF Rx Instructions: apply to lower back multivitamin capsule 1 cap PO DAILY 0RF Combivent Respimat 20-100 mcg/actuation mist 2 puff IH TID 0RF mirtazapine 7.5 mg tablet 7.5 mg PO DAILY 0RF Spiriva with HandiHaler 18 mcg capsule, w/inhalation device 1 cap inhalation DAILY 0RF Rx Instructions: puncture 1 cap using device; one dose = 2 inhalations nicotine 21-14-7 mg/24 hr patch, TD daily, sequential See Rx Instructions transdermal .COMPLEX 0RF Rx Instructions: apply 1-21 mg NICOTINE PATCH daily for 28 days; follow with 1-14 mg PATCH daily for 14 days, then 1-7mg PATCH daily for 14 days transdermal Ensure Liquid PO 0RF folic acid 1 MG tablet 1 mg PO DAILY 0RF bupropion HCl (smoking deter) 150 MG tablet extended release 12 hr 150 mg PO BID 0RF aspirin [Ecotrin Low Strength] 81 MG tablet,delayed release (DR/EC) 81 mg PO DAILY 0RF atorvastatin [Lipitor] 10 MG tablet 10 mg PO HS 0RF nitroglycerin [Nitrostat] 0.4 MG tablet, sublingual 0.4 mg Sublingual . DIRECTED PRN (Reason: Chest Pain) 0RF Protocol: Nitroglycerin-Angina Condition: Angina Dose/Route: 5 mcg/min Instruction: Titrate by 5 mcg/min every 3-5 minutes Condition: No response by 20 mcg/min Dose/Route: 30 mcg/min Instruction: Titrate by 10-20 mcg/min every 3-5 minutes Protocol Text: Angina, Not responsive to sublingual nitroglycerin and beta blockers a) Dosage is affected by the type of infusion set used. When nonabsorptive tubing is used, doses must be reduced. b) Using nonabsorptive tubing, the initial dose should be 5 micrograms/minute (mcg/min). Titration should be guided by clinical response, with more caution exercised as partial response is noted. Initial titration should be in 5 mcg/min increments at intervals of 3 to 5 minutes. If no response in noted at 20 mcg/min, increments of 10 to 20 mcg/min can be used. Dosage increments should be smaller and less frequent once some hemodynamic response is observed. c) Using standard polyvinyl chloride tubing, the usual starting dose in clinical studies has been 25 micrograms/minute or more. Continuous monitoring of hemodynamic parameters MUST BE PERFORMED during titration to optimal dosing. d) Typically, maximum infusion rates are defined by 20% or greater reductions in systolic blood pressure or 10% or greater increases in heart rate over baseline values. e) However, because of the evidence of tolerance and the possibility of methemoglobinemia, ethanol intoxication, and heparin resistance with high infusion rates, infusion rates of less than 40 micrograms/minute have been recommended. Source[employer] (03/30/12) cholecalciferol (vitamin D3) 1,000 UNITS tablet 2,000 units PO DAILY 0RF gabapentin 300 mg capsule 300 mg PO TID 0RF Ensure Original Liquid See Rx Instructions .ROUTE .COMPLEX 0RF Rx Instructions: Drink 1 bottle 3 x daily hydrocodone-acetaminophen 10-325 mg tablet 1 tab PO TID 0RF Label Comments: TAKE ONE TABLET BY MOUTH THREE TIMES A DAY FOR PAIN spironolactone 25 mg tablet 25 mg PO DAILY 0RF Label Comments: TAKE ONE TABLET BY MOUTH EVERY DAY bumetanide 2 mg tablet See Rx Instructions .ROUTE .COMPLEX Qty: 20 0RF Rx Instructions: take 2 tabs in the morning (4 mg) and one tab in the afternoon (2 mg) polyethylene glycol 3350 [Miralax] 17 gram/dose powder 17 g PO BID Qty: 238 0RF pantoprazole 40 MG tablet,delayed release (DR/EC) 40 mg PO DAILY 0RF metoprolol tartrate 25 mg Tablet 12.5 mg PO BID 0RF tamsulosin 0.4 mg capsule 0.4 mg PO QHS 0RF Label Comments: TAKE ONE CAPSULE BY MOUTH EVERY EVENING ferrous sulfate [FeroSul] 325 mg (65 mg iron) tablet 325 mg PO DAILY 0RF tiotropium bromide 18 mcg Capsule, W/Inhalation Device 18 mcg INHALATION DAILY 0RF
[2021-10-09 08:27] LABS: COVID-19 PCR Negative (Negative)
[2021-10-09] MEDS: Dicyclomine 20 MG TAB PO (09:19)
[2021-10-09 09:34] LABS: Bilirubin Negative (Negative); Blood Large (Negative); Clarity Sl Cloudy (Clear); Glucose Negative (Negative); Ketones Negative (Negative); Leukocyte Esterase Moderate (Negative); Nitrite Positive (Negative)
[2021-10-09 09:55] LABS: RBC >50 HPF (0-2); WBC 20-50 HPF (0-5)
[2021-10-09 09:56] LABS: Bacteria Many HPF (Negative); C & S Indicated? Yes; Casts Negative LPF (Negative); Crystals Rare Amorphous HPF (Negative); Epithelial Cells Rare HPF (Negative); Mucus Trace (Negative); Other Cells Few Yeast (Negative)
[2021-10-09] MEDS: cefTRIAXone 1 GM/50 ML BAG IVPB (10:00)
[2021-10-09] MEDS: DOXYCYCLINE 100 MG in Normal Saline 100 ML IVPB ×2 (10:44→21:37)
[2021-10-09] MEDS: Enoxaparin 40 MG/0.4 ML SYR SC (12:00)
[2021-10-09] MEDS: Lactated Ringers 1,000 ML 125 ML IV (12:00)
--- NOTE | 2021-10-09 12:34 | W.NUTCONSULT ---
Date of service: 10/09/21 Time of Service: 12:34 Nutritional Consult ASSESSMENT: nutrition consult received. WIll follow and support during inpatient status. PMH: CHF, CAD, s/p treatment for esophageal cancer, no mention of G tube NUTRITIONAL DIAGNOSIS: Severe malnutrition with 37 lbs weight loss in last 90 days with BMI of 12. Time Spent in Nutritional Counseling and Treatment: 0
--- NOTE | 2021-10-09 12:59 | IN_ITS ---
Date of service: 10/09/21 Time of Service: 12:59 PT Notes Visit Reasons: Pneumonia,Lung Mass,Generalized Weakness Physical Therapy Inpatient Initial Evaluation Date: 10/09/2021 Referring Doctor: Antonette Euceda NP PT Orders: PT CONSULT: Exacerbation of chronic condition Precautions: Fall. Standard. Activity as tolerated. Patient Profile/Admitting Diagnosis: Ilia is a 71-year-old male who presented to the ED on 10/09/2021 due to altered mental status, fall, generalized weakness, inability to ambulate, and abdominal discomfort. Patient is diagnosed with encephalopathy, failure to thrive, altered mental status, generalizedw eakness, acute urinary retention, and skin tear of the left elbow. PMHX: All Active Problems?(Updated 10/09/21 @ 07:48 by Tod Veloz MD) Fall (Acute) Altered mental status (Acute) Abdominal pain (Acute) Generalized weakness (Acute) Skin tear of left elbow without complication (Acute) Acute urinary retention (Acute) Constipation (Acute) Hypophosphatemia (Acute) Hypokalemia (Acute) Hypervitaminosis D (Acute) Anemia associated with acute blood loss (Acute) Failure to thrive (Acute) Encephalopathy acute (Acute) GI bleeding (Chronic) Malnutrition (Acute) Rib fractures (Acute) COVID-19 (Acute) AMS (altered mental status) (Acute) Hematoma (Acute) Neck pain (Acute) Pain, dental (Acute) Acute lymphadenitis of neck (Acute) Constipation (Acute) Bladder wall thickening (Acute) Colon wall thickening (Acute) Fatigue (Acute) Altered mental status (Acute) Shortness of breath (Acute) Abdominal pain (Acute) COVID-19 (Acute) Hypokalemia (Acute) Mild bibasilar atelectasis (Acute) Confusion state (Acute) Alcohol abuse (Chronic) Tricuspid regurgitation (Chronic) Bilateral lower extremity edema (Acute) Acute on chronic diastolic (congestive) heart failure (Acute) CAD (coronary artery disease) (Chronic) Hypertension (Chronic) Encounter for colorectal cancer screening (Acute) Hydrocele, right (Acute 01/23/16) Epididymitis, right (Acute 08/02/16) Cerumen impaction (Acute) Medical History? Abnormal radiologic findings on diagnostic imaging of renal pelvis, ureter, or bladder Acute on chronic anemia Acute on chronic systolic CHF (congestive heart failure) Adenocarcinoma of esophagus Afib Alcohol abuse, continuous drinking behavior Anemia CAD (coronary artery disease) of artery bypass graft CHF, acute on chronic Diabetes mellitus Difficulty reading Edema Essential hypertension GERD (gastroesophageal reflux disease) GI bleed H/O malignant neoplasm of stomach Heart failure, left, with LVEF 41-49% History of GI bleed Hoarseness Hyperlipidemia Kyphoscoliosis Low back pain Pancreatitis Prediabetes Protein malnutrition Pulmonary hypertension Recent weight loss Solitary pulmonary nodule Tinnitus, left Tobacco abuse Weight loss Surgical History? cardiac cath Coronary Artery Bypass Gaft (CABG) EGD - IV Sedation Esophagectomy H/O colonoscopy (2007) H/O colonoscopy (04/14/18) Dr geller, sigmoid diverticulosis, repeat 10 yearsHistory of esophagogastroduodenoscopy (EGD) (09/2017) History of hydrocelectomy History of right inguinal hernia repair repair times two sugrical flap of unhealing wound Social History/Home Situation: Lives with a roommate in a private home with 4 steps to enter. Uses single-point cane at baseline. Equipment Owned/DME: SPC Subjective: Agreeable to PT consult however is upset about lunch being delayed as it was almost 1 PM when this PT came in. Nurse caddy/caddie supervisor therapy and nurse Oc made aware. Patient states that he has fallen almost every night at home for the past week. Objective: General Observation: Cachectic. IV in the right UE. Biggs catheter in place. Telemetry monitoring in place. Mental Status: Alert and oriented as to person, place, time, and purpose. Able to pay attention, focus, and respond appropriately. Pain: 4-5/10 in abdominal area ROM: Right Upper Extremity: Shoulder Flexion WFL. Shoulder abduction WFL. Elbow flexion WFL. Wrist flexion WFL. Functional opening and closing of hand WFL. Left Upper Extremity: Shoulder Flexion WFL. Shoulder abduction WFL. Elbow flexion WFL. Wrist flexion WFL. Functional opening and closing of hand WFL. Right Lower Extremity: Hip flexion WFL. Hip abduction WFL. Knee flexion WFL. Ankle dorsiflexion WFL. Ankle plantarflexion WFL. Left Lower Extremity: Hip flexion WFL. Hip abduction WFL. Knee flexion WFL. Ankle dorsiflexion WFL. Ankle plantarflexion WFL. Strength: Right Upper Extremity: Shoulder flexors 3+/5. Shoulder abductors 3+/5. Elbow flexors 3+/5. Elbow extensors 3+/5. Cloth Colors Examiner strong. Left Upper Extremity: Shoulder flexors 3+/5. Shoulder abductors 3+/5. Elbow flexors 3+/5. Elbow extensors 3+/5. Cloth Colors Examiner strong. Right Lower Extremity: Hip flexors 3+/5. Hip abductors 3+/5. Knee flexors 3+/5. Knee extensors 3+/5. Ankle dorsiflexors 3+/5. Ankle plantarflexors 3+/5. Left Lower Extremity: Hip flexors 3+/5. Hip abductors 3+/5. Knee flexors 3+/5. Knee extensors 3+/5. Ankle dorsiflexors 3+/5. Ankle plantarflexors 3+/5. Bed Mobility/Transfers: Supine to sit with minimal assist Sit to stand with minimal assist Stand to sit with contact-guard assist Bed to reclining chair with minimal assist Gait: 15 feet requiring minimal assist. Glenys decreased. Step height decreased. Step length decreased. Balance: Static Sitting: Fair Dynamic Sitting: Fair Static Standing: Fair Dynamic Standing: Fair Special Tests: Mobility Limitations Standardized Measure [facility] 6 clicks Basic Mobility Inpatient Short Form: Raw Score: 14 CMS Score: 61% deficit Informed Consent/Education: Patient was instructed in purpose of PT consult and plan of care and is agreeable to proceed with established PT POC to achieve personal goals. Assessment: Ilia demonstrates significant functional mobility decline requiring the assistance of 1 person the use of a front wheeled walker for all mobility ADL performance. Patient presents with clinical signs and symptoms consistent with current/admitting diagnoses that have resulted to mobility limitations, gait instability, generalized weakness, and overall ADL decline as demonstrated by the following impairment level findings: 1. Decreased strength to B UE/LE major muscle groups 2. Impaired sitting/standing balance 3. Impaired activity tolerance 4. Fatigue Impairments are contributing to the following functional limitations: 1. Decline in bed mobility skills 2. Decline in transfer skills 3. Difficulty with ambulation without assistive device and physical assistance 4. Increased completion time for mobility ADL performance 5. Increased risk for falls 6. Difficulty with managing steps alone safely Patient is assessed as a [id number] moderate complexity based on the following: History: 71-year-old male with past medical history as indicated above Examination: Demonstrable impairment in strength, balance, and mobility level with underlying impairments and functional limitations as exhibited above as well as deficit score of 61% utilizing the [facility] Mobility Inpatient Short Form Presentation: Evolving Decision Makin moderate complexity Goals: Goals X1 week 1. Supine-Sit independent 2. Sit-Supine independent 3. Sit-Stand independent 4. Stand-Sit independent with SPC 5. Bed-Chair independent with SPC 6. Chair-Bed independent with SPC 7. Independent gait on level surface with use of SPC for at least 300 feet without report of pain nor dyspnea 8. Independent stair negotiation while holding onto 1rail for at least 5 steps without report of pain nor dyspnea 9. Independent with home exercise program 10. Good static and dynamic standing balance/tolerance Plan of Care/Treatment Plan: 1-2x/day, 7 days/week x 1 week. Plan of care has been reviewed with the [employer] providing the service under Physical Therapy direction. Initiate Physical Therapy intervention for pain management as needed, strengthening, bed mobility, transfers, gait, stairs, balance training, and use of assistive device. DISCHARGE RECOMMENDATIONS: SNF vs. HHPT dependiing on progress towards goals TREATMENT CODE/TIME: 27828 x 26 minutes beginning at 12:59 PM. Thank you for the opportunity to participate in the care of this patient. Savanna Banks PT, DPT, CLT [facility] [place], [place]
[2021-10-09] MEDS: Mylanta Suspension 30 ML CUP PO (13:02)
--- NOTE | 2021-10-09 15:12 | W.PM.HP.N ---
Date of service: 10/09/21 Time of Service: 11:00 Assessment and Plan Assessment and plan (1) Fall: Status: Acute Assessment and plan: Very weak and cachectic with difficulty ambulating by himself. Plan: PT consult. Work on strength and ability to safely ambulate with device. (2) Altered mental status: Status: Acute Assessment and plan: Comfused, poor memory; we will check labs and reorient frequently (3) Abdominal pain: Status: Acute Assessment and plan: CT is negative; monitor pain, , GI (4) Generalized weakness: Status: Acute Assessment and plan: Deconditioned,; encourage meals, add protein drinks, PT (5) Skin tear of left elbow without complication: Status: Acute Assessment and plan: Skin tear - clean; apply mepalex; change every other day and as needed, assess for healing/infection (6) Poor hygiene: Status: Acute Assessment and plan: Stool unnder fngernails, hair diry, not shaved - assist with hygiene History of Present Illness History of Present Illness Chief Complaint: Fall; altered mental status; generalized weakness; abdominal pain Narrative: 71-year-old male with multiple medical problems noted in previous medicals: A. fib, coronary artery disease, CHF, A. fib, COPD, adenocarcinoma of the esophagus, here with generalized weakness, cachectic, inability to ambulate, recent fall, complaining of generalized abdominal discomfort.Patient has had increased general weakness at home per his roommate and is now unable to ambulate without falling. He had a recent fall and complains of pain to his left elbow. Patient is a poor historian, limiting the history. Patient CT of the head was unremarkable. CT of the chest reveals new right lung nodules as well as infiltrates and chronic rib fractures. Concern for failure to thrive and the patient safelybeing discharged to home, he is admitted to the hospital. Review of Systems All systems reviewed & are unremarkable except as noted in HPI and below Constitutional Constitutional: Denies fever(s) Gastrointestinal Gastrointestinal: Reports abdominal pain PFSH All Active Problems (Updated 10/09/21 @ 07:48 by Tod Veloz MD) Poor hygiene (Acute) Fall (Acute) Altered mental status (Acute) Abdominal pain (Acute) Generalized weakness (Acute) Skin tear of left elbow without complication (Acute) Acute urinary retention (Acute) Constipation (Acute) Hypophosphatemia (Acute) Hypokalemia (Acute) Hypervitaminosis D (Acute) Anemia associated with acute blood loss (Acute) Failure to thrive (Acute) Encephalopathy acute (Acute) GI bleeding (Chronic) Malnutrition (Acute) Rib fractures (Acute) COVID-19 (Acute) AMS (altered mental status) (Acute) Hematoma (Acute) Neck pain (Acute) Pain, dental (Acute) Acute lymphadenitis of neck (Acute) Constipation (Acute) Bladder wall thickening (Acute) Colon wall thickening (Acute) Fatigue (Acute) Altered mental status (Acute) Shortness of breath (Acute) Abdominal pain (Acute) COVID-19 (Acute) Hypokalemia (Acute) Mild bibasilar atelectasis (Acute) Confusion state (Acute) Alcohol abuse (Chronic) Tricuspid regurgitation (Chronic) Bilateral lower extremity edema (Acute) Acute on chronic diastolic (congestive) heart failure (Acute) CAD (coronary artery disease) (Chronic) Hypertension (Chronic) Encounter for colorectal cancer screening (Acute) Hydrocele, right (Acute 01/23/16) Epididymitis, right (Acute 08/02/16) Cerumen impaction (Acute) Medical History Abnormal radiologic findings on diagnostic imaging of renal pelvis, ureter, or bladder Acute on chronic anemia Acute on chronic systolic CHF (congestive heart failure) Adenocarcinoma of esophagus Afib Alcohol abuse, continuous drinking behavior Anemia CAD (coronary artery disease) of artery bypass graft CHF, acute on chronic Diabetes mellitus Difficulty reading Edema Essential hypertension GERD (gastroesophageal reflux disease) GI bleed H/O malignant neoplasm of stomach Heart failure, left, with LVEF 41-49% History of GI bleed Hoarseness Hyperlipidemia Kyphoscoliosis Low back pain Pancreatitis Prediabetes Protein malnutrition Pulmonary hypertension Recent weight loss Solitary pulmonary nodule Tinnitus, left Tobacco abuse Weight loss Surgical History cardiac cath Coronary Artery Bypass Gaft (CABG) EGD - IV Sedation Esophagectomy H/O colonoscopy (2007) H/O colonoscopy (04/14/18) dr geller, sigmoid diverticulosis, repeat 10 years History of esophagogastroduodenoscopy (EGD) (09/2017) History of hydrocelectomy History of right inguinal hernia repair repair times two sugrical flap of unhealing wound Family History Mother No problems noted. Father No problems noted. Social History Smoking/Tobacco Use Status: Current-Occasional Tobacco Type: cigarettes Smoking packs per day: 1 Smoking cigarettes per day: 20.0 Years smoked: 50 Smoking pack-years: 50.00 Smoking risk assessment performed?: Yes Alcohol Intake: current Alcohol Intake frequency: 0-2 drinks per day Alcohol type: beer Drug use: Never Substance use type: does not use What type of physical activity do you participate in: none Do you feel safe at home: Yes Do you feel safe in your relationship?: Yes Meds Allergies and Home Medications Allergies Allergy/AdvReac Type Severity Reaction Status Date / Time No Known Allergies Allergy Verified 09/17/21 18:28 Home Medications Medication Instructions Recorded Confirmed Type bupropion HCl (smoking deter) 150 150 mg PO BID 08/04/12 10/09/21 History mg tablet,12 hr sustained-release(smoking deterrent) folic acid 1 mg tablet 1 mg PO DAILY 08/04/12 10/09/21 History aspirin 81 mg tablet,delayed 81 mg PO DAILY 04/09/13 06/23/21 History release (Ecotrin Low Strength) atorvastatin 10 mg tablet (Lipitor) 10 mg PO HS 01/25/15 10/09/21 History cholecalciferol (vitamin D3) 25 2,000 units PO DAILY 04/12/16 10/09/21 History mcg (1,000 unit) tablet nitroglycerin 0.4 mg sublingual 0.4 mg SUBLINGUAL . DIRECTED PRN 04/12/16 10/09/21 History tablet (Nitrostat) pantoprazole 40 mg tablet,delayed 40 mg PO DAILY 01/15/17 10/09/21 History release lidocaine 5 % topical cream 1 applic TP QID 02/10/18 10/09/21 History multivitamin 1 cap PO DAILY 02/10/18 10/09/21 History sucralfate 100 mg/mL oral 10 ml PO QID 02/10/18 06/23/21 History suspension (Carafate) metoprolol tartrate 25 mg tablet 12.5 mg PO BID 04/12/18 10/09/21 History ipratropium 20 mcg-albuterol 100 2 puff IH TID 05/02/19 10/09/21 History mcg/actuation mist for inhalation (Combivent Respimat) food supplemt, lactose-reduced See Rx Instructions .ROUTE .COMPLEX 01/15/20 10/09/21 History (Ensure Original) gabapentin 300 mg capsule 300 mg PO TID 01/15/20 10/09/21 History hydrocodone 10 mg-acetaminophen 1 tab PO TID 07/09/20 10/09/21 History 325 mg tablet spironolactone 25 mg tablet 25 mg PO DAILY 07/10/20 10/09/21 History ferrous sulfate 325 mg (65 mg 325 mg PO DAILY 03/05/21 10/09/21 History iron) tablet (FeroSul) tamsulosin 0.4 mg capsule 0.4 mg PO QHS 03/05/21 10/09/21 History tiotropium bromide 18 mcg capsule 18 mcg INHALATION DAILY 03/05/21 10/09/21 History with inhalation device bumetanide 2 mg tablet See Rx Instructions .ROUTE 06/24/21 10/09/21 Rx .COMPLEX #20 tab polyethylene glycol 3350 17 17 g PO BID #238 g 09/17/21 Rx gram/dose oral powder (Miralax) food supplemt, lactose-reduced ml PO 09/21/21 History (Ensure) mirtazapine 7.5 mg tablet 7.5 mg PO DAILY 09/21/21 10/09/21 History nicotine See Rx Instructions TRANSDERMAL 09/21/21 10/09/21 History 21mg/24hr-14mg/24hr-7mg/24hr daily .COMPLEX transderm patches,sequentl tiotropium bromide 18 mcg capsule 1 cap INHALATION DAILY 09/21/21 10/09/21 History with inhalation device (Spiriva with HandiHaler) Exam Narrative Exam Narrative: Const General: cooperative and no acute distress Nutritional Appearance: cachectic Orientation: alert and awake [facility] Head: normocephalic and atraumatic Mouth: dry mucous membranes Eyes Conjunctivae: normal conjunctivae Sclera: normal sclerae Resp Effort & Inspection: normal respiratory effort Auscultation: clear to auscultation bilaterally, no rales, no rhonchi and no wheezes Cardio Rate: regular rate and not tachycardic Rhythm: regular rhythm GI Palpation: soft, not firm, no guarding, no masses, not rigid and nontender Back/Spine/Pelvis Cervical Spine: No cervical spinal tenderness Thoracic/Lumbar Spine: No thoracic spinal tenderness and No lumbar spinal tenderness Skin General skin exam: no rashes or lesions noted Neuro General: patient alert, patient awake Patient Orientation: Person, Place and Time and tone normal Cognition: abnormal cognition Speech: speech normal Motor: other (Generalized weakness) Extrem General: no edema Left upper extremity: elbow/forearm Details: normal ROM and abrasion; some tenderness Const General: cooperative and no acute distress Nutritional Appearance: cachectic Orientation: alert and awake [facility] Head: normocephalic and atraumatic Mouth: moist mucous membranes Eyes Conjunctivae: normal conjunctivae Sclera: normal sclerae Resp Effort & Inspection: normal respiratory effort Auscultation: clear to auscultation bilaterally, no rales, no rhonchi and no wheezes Cardio Rate: regular rate and not tachycardic Rhythm: regular rhythm GI Palpation: soft, not firm, no guarding, no masses, not rigid and nontender Back/Spine/Pelvis Cervical Spine: No cervical spinal tenderness Thoracic/Lumbar Spine: No thoracic spinal tenderness and No lumbar spinal tenderness Skin General skin exam: no rashes or lesions noted Neuro General: patient alert, patient awake, oriented Patient Orientation: Person, Place and Time and tone normal Cognition: abnormal cognition Speech: speech normal Motor: other (Generalized weakness) Extrem General: no edema Left upper extremity: elbow/forearm Details: normal ROM and abrasion; Negative for no tenderness Results Imaging Abdomen CT scan report/results: report reviewed CT scan - chest: report reviewed Labs Result diagrams: 10/09/21 05:15 10/09/21 05:15 Labs: Laboratory Results - last 24 hr 10/09/21 10/09/21 10/09/21 05:15 05:15 05:15 WBC RBC Hgb Hct MCV MCH MCHC RDW Plt Count MPV Immature Gran % Neutrophils % Lymphocytes % Monocytes % Eosinophils % Basophils % Nucleated RBC % Absolute Neutrophils Absolute Lymphocytes Absolute Monocytes Absolute Eosinophils Absolute Basophils VBG Lactate 1.1 Sodium 140 Potassium 3.9 Chloride 106 Carbon Dioxide 23.7 Anion Gap 10.3 BUN 39 H Creatinine 0.8 Estimated GFR/1.73 m2 >= 60.00 Glucose 78 Calcium 9.1 Magnesium 2.1 Total Bilirubin 1.0 AST 30 ALT 37 Alkaline Phosphatase 162 H Troponin I < 50 Total Protein 7.0 Albumin 2.3 L Lipase 32 Urine Color Urine Clarity Urine pH Ur Specific [place] Urine Protein Urine Ketones Urine Blood Urine Nitrite Urine Bilirubin Urine Urobilinogen Ur Leukocyte Esterase Urine RBC Urine WBC Ur Epithelial Cells Urine Crystals Urine Bacteria Urine Casts Urine Mucus Urine Other Ur Culture Indicated? Urine Glucose COVID-19 Source SARS-CoV-2 (PCR) 10/09/21 10/09/21 10/09/21 05:15 06:55 09:27 WBC 10.63 RBC 4.86 Hgb 14.7 Hct 46.2 MCV 95 MCH 30.2 MCHC 31.8 L RDW 17.5 H Plt Count 249 MPV 9.6 Immature Gran % 1.1 Neutrophils % 86.2 Lymphocytes % 6.9 Monocytes % 5.2 Eosinophils % 0.3 Basophils % 0.3 Nucleated RBC % 0.0 Absolute Neutrophils 9.17 H Absolute Lymphocytes 0.73 L Absolute Monocytes 0.55 Absolute Eosinophils 0.03 Absolute Basophils 0.03 VBG Lactate Sodium Potassium Chloride Carbon Dioxide Anion Gap BUN Creatinine Estimated GFR/1.73 m2 Glucose Calcium Magnesium Total Bilirubin AST ALT Alkaline Phosphatase Troponin I Total Protein Albumin Lipase Urine Color Yellow Urine Clarity Sl Cloudy Urine pH 6.0 Ur Specific [place] 1.020 Urine Protein Trace H Urine Ketones Negative Urine Blood Large H Urine Nitrite Positive H Urine Bilirubin Negative Urine Urobilinogen 1.0 H Ur Leukocyte Esterase Moderate H Urine RBC >50 H Urine WBC 20-50 H Ur Epithelial Cells Rare Urine Crystals Rare Amorphous Urine Bacteria Many Urine Casts Negative Urine Mucus Trace Urine Other Few Yeast Ur Culture Indicated? Yes Urine Glucose Negative COVID-19 Source Cancelled SARS-CoV-2 (PCR) Negative 10/09/21 10/09/21 09:43 12:43 WBC RBC Hgb Hct MCV MCH MCHC RDW Plt Count MPV Immature Gran % Neutrophils % Lymphocytes % Monocytes % Eosinophils % Basophils % Nucleated RBC % Absolute Neutrophils Absolute Lymphocytes Absolute Monocytes Absolute Eosinophils Absolute Basophils VBG Lactate Sodium Cancelled Potassium Cancelled Chloride Cancelled Carbon Dioxide Cancelled Anion Gap Cancelled BUN Cancelled Creatinine Cancelled Estimated GFR/1.73 m2 Cancelled Glucose Cancelled Calcium Cancelled Magnesium Total Bilirubin Cancelled AST Cancelled ALT Cancelled Alkaline Phosphatase Cancelled Troponin I Cancelled Cancelled Total Protein Cancelled Albumin Cancelled Lipase Urine Color Urine Clarity Urine pH Ur Specific [place] Urine Protein Urine Ketones Urine Blood Urine Nitrite Urine Bilirubin Urine Urobilinogen Ur Leukocyte Esterase Urine RBC Urine WBC Ur Epithelial Cells Urine Crystals Urine Bacteria Urine Casts Urine Mucus Urine Other Ur Culture Indicated? Urine Glucose COVID-19 Source SARS-CoV-2 (PCR) Last Vital Signs Temp 37.0 C 10/09/21 14:42 Pulse 108 H 10/09/21 14:42 Resp 17 10/09/21 14:42 BP 99/64 L 10/09/21 14:42 Pulse Ox 98 10/09/21 14:42 PAWSS Pt Consumed Any Amount of Alcohol Within the Last 30 days OR had positive SHANNON Upon Admission: No
[2021-10-09] MEDS: HYDROcodone 10/Acetaminophen 325 TAB PO ×2 (16:09→20:41)
[2021-10-09] MEDS: Nicotine 14 MG/24 HR PATCH TD (16:09)
[2021-10-09] MEDS: Protein Nutritional Supplement 16 GM 1 OUNCE PACKET PO (20:41)
[2021-10-10] VITALS (8 sets, daily range): BP systolic 90–113; BP diastolic 58–77; PULSE 63–91; RESP 16–20; TEMP 36–36.4; O2SAT 93–99
[2021-10-10] MEDS: Acetaminophen 325 MG TAB PO ×2 (03:03→13:42)
[2021-10-10 07:30] LABS: Ammonia 16 umol/L (11-32)
[2021-10-10] MEDS: HYDROcodone 10/Acetaminophen 325 TAB PO ×3 (07:39→19:54)
[2021-10-10] MEDS: Protein Nutritional Supplement 16 GM 1 OUNCE PACKET PO ×3 (07:39→19:55)
[2021-10-10] MEDS: cefTRIAXone 1 GM/50 ML BAG IVPB (07:40)
[2021-10-10] MEDS: Nicotine 14 MG/24 HR PATCH TD (07:40)
[2021-10-10 07:41] LABS: Anion Gap 6.7 mmol/L (3-11); BUN 29 mg/dL (7-18); CO2 25.3 mmol/L (21.0-32.0); CREATININE 0.8 mg/dL (0.70-1.30); Calcium 8.3 mg/dL (8.5-10.1); Chloride 107 mmol/L (98-107); Glucose 76 mg/dL (74-106); Potassium 3.9 mmol/L (3.5-5.1); Sodium 139 mmol/L (136-145); TSH (W/Ref FT4) 3.74 uIU/mL (0.36-3.74)
[2021-10-10] MEDS: Normal Saline Flush 10 ML SYR IVP ×2 (07:41→10:14)
--- NOTE | 2021-10-10 08:54 | PDOC.CMIN ---
- If Service Date Differs Date of service: 10/10/21 Time of Service: 08:54 Care Management Initial Assess REASON FOR HOSPITALIZATION:: Fall PAST MEDICAL HISTORY/PAST SURGICAL HISTORY:: All Active Problems (Updated 10/09/21 @ 07:48 by Tod Veloz MD). Poor hygiene (Acute). Fall (Acute). Altered mental status (Acute). Abdominal pain (Acute). Generalized weakness (Acute). Skin tear of left elbow without complication (Acute). Acute urinary retention (Acute). Constipation (Acute). Hypophosphatemia (Acute). Hypokalemia (Acute). Hypervitaminosis D (Acute). Anemia associated with acute blood loss (Acute). Failure to thrive (Acute). Encephalopathy acute (Acute). GI bleeding (Chronic). Malnutrition (Acute). Rib fractures (Acute). COVID-19 (Acute). AMS (altered mental status) (Acute). Hematoma (Acute). Neck pain (Acute). Pain, dental (Acute). Acute lymphadenitis of neck (Acute). Constipation (Acute). Bladder wall thickening (Acute). Colon wall thickening (Acute). Fatigue (Acute). Altered mental status (Acute). Shortness of breath (Acute). Abdominal pain (Acute). COVID-19 (Acute). Hypokalemia (Acute). Mild bibasilar atelectasis (Acute). Confusion state (Acute). Alcohol abuse (Chronic). Tricuspid regurgitation (Chronic). Bilateral lower extremity edema (Acute). Acute on chronic diastolic (congestive) heart failure (Acute). CAD (coronary artery disease) (Chronic). Hypertension (Chronic). Encounter for colorectal cancer screening (Acute). Hydrocele, right (Acute 01/23/16). Epididymitis, right (Acute 08/02/16). Cerumen impaction (Acute). Medical History . Abnormal radiologic findings on diagnostic imaging of renal pelvis, ureter, or bladder. Acute on chronic anemia. Acute on chronic systolic CHF (congestive heart failure). Adenocarcinoma of esophagus. Afib. Alcohol abuse, continuous drinking behavior. Anemia. CAD (coronary artery disease) of artery bypass graft. CHF, acute on chronic. Diabetes mellitus. Difficulty reading. Edema. Essential hypertension. GERD (gastroesophageal reflux disease). GI bleed. H/O malignant neoplasm of stomach. Heart failure, left, with LVEF 41-49%. History of GI bleed. Hoarseness. Hyperlipidemia. Kyphoscoliosis. Low back pain. Pancreatitis. Prediabetes. Protein malnutrition. Pulmonary hypertension. Recent weight loss. Solitary pulmonary nodule. Tinnitus, left. Tobacco abuse. Weight loss. Surgical History . cardiac cath. Coronary Artery Bypass Gaft (CABG). EGD - IV Sedation. Esophagectomy. H/O colonoscopy (2007). H/O colonoscopy (04/14/18). dr geller, sigmoid diverticulosis, repeat 10 years. History of esophagogastroduodenoscopy (EGD) (09/2017). History of hydrocelectomy. History of right inguinal hernia repair. repair times two. sugrical flap of unhealing wound. Family History . Mother. No problems noted. Father. No problems noted. PREVIOUS FUNCTIONAL STATUS/SOCIAL/FAMILY SUPPORTS:: Ilia resides in [facility] with his roomate, Lyudmila. He had one daughter who has since from cancer. Ilia does receive home health services, but was not clear which services they provide. He has fallen at home recently and uses a cane for balance. CURRENT FUNCTIONAL STATUS:: Ilia was sitting up in a chair when CM met with him. He was polite but not very forthcoming with infornmation. Ilia was complaining of pain but when CM discussed this with his nurse, learned that he has scheduled pain medicine around the clock. Ilia was also complaining of constipation and attempted to disempact himself earlier in the day.Ilia admitted that he has become weak and stated that he would consider going to rehab, specifically at [facility], if it was recommended. ADVANCE DIRECTIVES:: On file. Chrissy Stewart (sister) [facility] with 2 alternates listed Has patient been provided with info about the portal/API?: Yes Did the patient sign up for the portal?: No CODE STATUS:: Full Code INSURANCE COVERAGE / FINANCIAL ISSUES:: Medicare. Medicaid CURRENT HOME/COMMUNITY SERVICES/EQUIPMENT:: uses a cane and has home health services PRIMARY CARE PHYSICIAN:: Silvina Perdue POTENTIAL DISCHARGE NEEDS:: follow up with PCP and plan of care PATIENT/FAMILY EDUCATION NEEDS:: review of discharge instructions, medications, diet, limitations, Ask Me Three TRANSPORTATION:: via private vehicle with family PLAN:: Ilia's discharge plan is not clear at this time. He has become very weak and has fallen at home. He would be agreeable to going to rehab if that recommendation is made. If he progresses sufficiently while hospitalized, he may be able to return home with increased services. He will follow up with his community providers and plan of care and transport with family. CM will continue to support Ilia and assess for ongoing discharge needs.
[2021-10-10] MEDS: CEFEPIME 1 GM in Normal Saline 50 ML IVPB ×2 (10:14→22:50)
[2021-10-10] MEDS: Mylanta Suspension 30 ML CUP PO (11:22)
[2021-10-10] MEDS: DOXYCYCLINE 100 MG in Normal Saline 100 ML IVPB ×2 (11:22→20:58)
--- NOTE | 2021-10-10 12:54 | PTTR_ITS ---
Date of service: 10/10/21 Time of Service: 09:26 PT Notes Visit Reasons: Pneumonia,Lung Mass,Generalized Weakness Inpatient Physical Therapy Treatment Note [facility] Date: 10/10/2021 PRECAUTIONS: Fall, Activity as tolerated SUBJECTIVE: Ilia reports that he is not feeling well today. He states that he feels tired and is very weak. Throughout session patient states multiple times I can't do it and I can't right now. OBJECTIVE: PAIN: Patient c/o rib pain on L BED MOBILITY/TRANSFERS Sit-supine: SBA with HOB flat Sit-stand: CGA Stand-sit: CGA GAIT: Assistive Device: FWW Weight bearing: Full Assist: CGA Distance: 5 steps + 15' Deviation: C/o pain,increased fatigue ASSESSMENT: Patient tolerated session with complaint of pain and increased fatigue. He requires significant encouragement to engage in PT, but would benef it from global strengthening. PLAN: Continue with global strengthening and general conditioning for improved mobility and activity tolerance. TREATMENT CODE/TIME: 26 minutes; [id number] x2 (09:26)
[2021-10-10] MEDS: Milk of Magnesia 30 ML CUP PO (13:09)
[2021-10-10] MEDS: Polyethylene Glycol 3350 17 GM PACKET PO (13:09)
[2021-10-10] MEDS: Enoxaparin 40 MG/0.4 ML SYR SC (13:09)
[2021-10-10] MEDS: Docusate Sodium 100 MG CAP PO (13:09)
[2021-10-10] MEDS: Diclofenac 1% Gel 100 GM TUBE TP ×3 (13:10→19:55)
--- NOTE | 2021-10-10 16:43 | W.PM.PROGNOT ---
Date of Service Date of service: 10/10/21 Time of Service: 16:44 Assessment and Plan Assessment and plan (1) Altered mental status: Status: Resolved Assessment and plan: Comfused, poor memory; we will check labs and reorient frequently (2) Abdominal pain: Status: Resolved Assessment and plan: CT is negative; monitor pain, , GI (3) Generalized weakness: Status: Acute Assessment and plan: Deconditioned,; encourage meals, add protein drinks, PT (4) Skin tear of left elbow without complication: Status: Acute Assessment and plan: Skin tear - clean; apply mepalex; change every other day and as needed, assess for healing/infection Subjective Subjective Patient reports: no new complaints Exam Narrative Exam Narrative: Const General: cooperative and no acute distress Nutritional Appearance: cachectic Orientation: alert and awake [facility] Head: normocephalic and atraumatic Mouth: dry mucous membranes Eyes Conjunctivae: normal conjunctivae Sclera: normal sclerae Resp Effort & Inspection: normal respiratory effort Auscultation: clear to auscultation bilaterally, no rales, no rhonchi and no wheezes Cardio Rate: regular rate and not tachycardic Rhythm: regular rhythm GI Palpation: soft, not firm, no guarding, no masses, not rigid and nontender Back/Spine/Pelvis Cervical Spine: No cervical spinal tenderness Thoracic/Lumbar Spine: No thoracic spinal tenderness and No lumbar spinal tenderness Skin General skin exam: no rashes or lesions noted Neuro General: patient alert, patient awake Patient Orientation: Person, Place and Time and tone normal Cognition: abnormal cognition Speech: speech normal Motor: other (Generalized weakness) Extrem General: no edema Left upper extremity: elbow/forearm Details: normal ROM and abrasion; some tenderness Const General: cooperative and no acute distress Nutritional Appearance: cachectic Orientation: alert and awake [facility] Head: normocephalic and atraumatic Mouth: moist mucous membranes Eyes Conjunctivae: normal conjunctivae Sclera: normal sclerae Resp Effort & Inspection: normal respiratory effort Auscultation: clear to auscultation bilaterally, no rales, no rhonchi and no wheezes Cardio Rate: regular rate and not tachycardic Rhythm: regular rhythm GI Palpation: soft, not firm, no guarding, no masses, not rigid and nontender Back/Spine/Pelvis Cervical Spine: No cervical spinal tenderness Thoracic/Lumbar Spine: No thoracic spinal tenderness and No lumbar spinal tenderness Skin General skin exam: no rashes or lesions noted Neuro General: patient alert, patient awake and tone normal Cognition: abnormal cognition Speech: speech normal Motor: other (Generalized weakness) Extrem General: no edema Left upper extremity: elbow/forearm Details: normal ROM and abrasion; no tenderness Objective Last Vital Signs Temp 36.2 C L 10/10/21 14:48 Pulse 76 10/10/21 14:48 Resp 18 10/10/21 14:48 BP 92/58 L 10/10/21 14:48 Pulse Ox 99 10/10/21 14:48 Laboratory Results - last 24 hr 10/10/21 10/10/21 07:15 07:15 Sodium 139 Potassium 3.9 Chloride 107 Carbon Dioxide 25.3 Anion Gap 6.7 BUN 29 H Creatinine 0.8 Estimated GFR/1.73 m2 >= 60.00 Glucose 76 Calcium 8.3 L Ammonia 16 TSH 3.74 Reviewed Pertinent PMH: Yes PAWSS Pt Consumed Any Amount of Alcohol Within the Last 30 days OR had positive SHANNON Upon Admission: No
[2021-10-10 18:53] LABS: Lactate 1.7 mmol/L (0.6-1.4)
[2021-10-10] MEDS: Normal Saline 1,000 ML 200 ML IV (19:47)
[2021-10-11] VITALS (7 sets, daily range): BP systolic 90–116; BP diastolic 62–81; PULSE 72–95; RESP 16–20; TEMP 35.9–36.8; O2SAT 97–100
[2021-10-11 06:54] LABS: Abs Immature Grans 0.16 10^3/uL (0.0-0.06); Absolute Basophil Count 0.02 10^3/uL (0.0-0.2); Absolute Eosinophil Count 0.11 10^3/uL (0.0-0.7); Absolute Lymphocyte Count 0.85 10^3/uL (1.2-3.4); Absolute Monocyte Count 0.49 10^3/uL (0.1-0.8); Absolute Neutrophil Count 7.85 10^3/uL (1.2-6.7); Basophils % 0.2; Eosinophils % 1.2; HCT 41.3 % (40.0-50.0); HGB 13.1 g/dL (13.5-17.5); Immature Grans % 1.7; MCH 29.8 pg (27.0-33.0); MCHC 31.7 % (32.0-36.0); MCV 94 fL (80-95); MPV 9.6 fL (8.0-11.0); Monocytes % 5.2; Neutrophils % 82.7; Platelet Count 248 10^3/uL (130-400); RDW 17.7 % (11.8-14.1); RDW-SD 59.8 fL; WBC 9.48 10^3/uL (4.4-10.8)
[2021-10-11 07:08] LABS: Anion Gap 7.2 mmol/L (3-11); BUN 24 mg/dL (7-18); CO2 24.8 mmol/L (21.0-32.0); CREATININE 0.7 mg/dL (0.70-1.30); Calcium 8.2 mg/dL (8.5-10.1); Chloride 108 mmol/L (98-107); Glucose 70 mg/dL (74-106); Potassium 4.1 mmol/L (3.5-5.1); Sodium 140 mmol/L (136-145)
[2021-10-11] MEDS: DEXTROSE 5%-LACTATED RINGERS 1,000 ML 75 ML IV (08:07)
[2021-10-11] MEDS: HYDROcodone 10/Acetaminophen 325 TAB PO ×3 (08:07→19:49)
[2021-10-11] MEDS: Diclofenac 1% Gel 100 GM TUBE TP ×4 (08:08→21:03)
[2021-10-11] MEDS: Normal Saline Flush 10 ML SYR IVP ×2 (08:08→11:03)
[2021-10-11] MEDS: Protein Nutritional Supplement 16 GM 1 OUNCE PACKET PO ×3 (08:08→19:50)
[2021-10-11] MEDS: Nicotine 14 MG/24 HR PATCH TD (08:08)
[2021-10-11 08:09] LABS: Lactate 1.9 mmol/L (0.6-1.4)
--- NOTE | 2021-10-11 09:01 | PT.INNT ---
Date of service: 10/11/21 Time of Service: 09:01 PT Notes Visit Reasons: Pneumonia,Lung Mass,Generalized Weakness 10/11/2021 Patient refused PT, stating I can't right now. He reports feeling tired and terrible today. Will attempt to resume PT services tomorrow morning.
[2021-10-11] MEDS: CEFEPIME 1 GM in Normal Saline 50 ML IVPB ×2 (09:55→21:02)
[2021-10-11] MEDS: Mylanta Suspension 30 ML CUP PO (10:06)
[2021-10-11] MEDS: Normal Saline 500 ML 30 ML IV (11:02)
[2021-10-11] MEDS: DOXYCYCLINE 100 MG in Normal Saline 100 ML IVPB ×2 (11:02→22:49)
[2021-10-11] MEDS: Enoxaparin 40 MG/0.4 ML SYR SC (12:31)
--- NOTE | 2021-10-11 13:03 | W.PM.PROGNOT ---
Date of Service Date of service: 10/11/21 Time of Service: 12:00 Assessment and Plan Assessment and plan (1) CAP (community acquired pneumonia): Start date: 10/11/21 Start time: 12:00 Status: Acute Assessment and plan: Patient found to have right sided pneumonia found [employer], he was also found to have lung nodules, that in the upper and lower lung echols, recommend repeat CT in 3 months. On cefepime day 2/5 and doxy 2/5 non productive cough LSC. Afebrile, no leukocytosis. Qualifiers: Laterality: right Lung location: middle lobe of lung Qualified Code(s): J18.9 - Pneumonia, unspecified organism (2) Generalized weakness: Start date: 10/11/21 Start time: 12:00 Status: Acute Assessment and plan: Deconditioned, Good appetite Add ensure to every meal Monitor I/O and intake (3) Fall: Start date: 10/11/21 Start time: 12:00 Status: Acute Assessment and plan: Very weak and cachectic with difficulty ambulating by himself. Continue PT . Safety (4) Altered mental status: Start date: 10/11/21 Start time: 12:00 Status: Resolved Assessment and plan: AAOx3, likely was d/t above. or intermittent. (5) Abdominal pain: Start date: 10/11/21 Start time: 12:00 Status: Resolved Assessment and plan: Denies pain today (6) Skin tear of left elbow without complication: Start date: 10/11/21 Start time: 12:00 Status: Acute Assessment and plan: Skin tear - clean; apply mepalex; change every other day and as needed, assess for healing/infection also has several scabbed areas to right hand and arm (7) Poor hygiene: Start date: 10/11/21 Start time: 12:00 Status: Chronic Assessment and plan: assist with hygiene (8) Hypertension: Start date: 10/11/21 Start time: 12:00 Status: Chronic Assessment and plan: on metoprolol, bumex and spironolactone, however on hold at this time d/'t low bp, will continue to monitor and resume when appropriate (9) CAD (coronary artery disease): Start date: 10/11/21 Start time: 12:00 Status: Chronic Assessment and plan: as above (10) Tricuspid regurgitation: Start date: 10/11/21 Start time: 12:00 Status: Chronic Assessment and plan: as above (11) Chronic obstructive lung disease: Start date: 10/11/21 Start time: 13:35 Status: Chronic Assessment and plan: continue home medications (12) DVT prophylaxis: Start date: 10/11/21 Start time: 12:00 Status: Acute Assessment and plan: enoxparin (13) Discharge planning issues: Start date: 10/11/21 Start time: 12:00 Status: Acute Assessment and plan: Home when medically ready discussed with Dr. Mayberry Subjective Subjective Patient reports: no new complaints Interval history since last seen: Patient laying in bed no complaints, eating lunch. Exam Narrative Exam Narrative: Const General: cooperative and no acute distress Nutritional Appearance: cachectic Orientation: alert and awake [facility] Head: normocephalic and atraumatic Mouth: dry mucous membranes Eyes Conjunctivae: normal conjunctivae Sclera: normal sclerae Resp Effort & Inspection: normal respiratory effort Auscultation: clear to auscultation bilaterally, no rales, no rhonchi and no wheezes Cardio Rate: regular rate and not tachycardic Rhythm: regular rhythm GI Palpation: soft, not firm, no guarding, no masses, not rigid and nontender Back/Spine/Pelvis Cervical Spine: No cervical spinal tenderness Thoracic/Lumbar Spine: No thoracic spinal tenderness and No lumbar spinal tenderness Skin General skin exam: no rashes or lesions noted Neuro General: patient alert, patient awake Patient Orientation: Person, Place and Time and tone normal Cognition: abnormal cognition Speech: speech normal Motor: other (Generalized weakness) Extrem General: no edema Left upper extremity: elbow/forearm Details: normal ROM and abrasion; some tenderness Const General: cooperative and no acute distress Nutritional Appearance: cachectic Orientation: alert, awake and oriented x3 HENWI Head: normocephalic and atraumatic Mouth: moist mucous membranes Eyes Conjunctivae: conjunctivae normal Sclera: sclerae normal Pupils: PERRL Resp Effort & Inspection: normal respiratory effort Auscultation: clear to auscultation bilaterally, no rales, no rhonchi and no wheezes Cardio Jugular venous pressure: no JVD Rate: regular rate Rhythm: regular rhythm GI Inspection: abnormal to inspection and other (shortened and protruding, missing ribs) Palpation: soft, not firm, no guarding, no masses, not rigid and nontender Auscultation: normal bowel sounds Back/Spine/Pelvis Cervical Spine: No cervical spinal tenderness Thoracic/Lumbar Spine: No thoracic spinal tenderness and No lumbar spinal tenderness Skin Wounds: wounds noted Other: multiple areas where there are scabs to hands and arms on right side Neuro General: patient alert, patient awake, patient oriented x3 and tone normal Cognition: normal cognition Speech: speech normal Motor: other (Generalized weakness) Extrem General: full ROM and no edema Left upper extremity: elbow/forearm Details: normal ROM and abrasion; Negative for no tenderness Objective Last Vital Signs Temp 36.2 C L 10/11/21 12:03 Pulse 83 10/11/21 12:03 Resp 16 10/11/21 12:03 BP 116/81 10/11/21 12:03 Pulse Ox 99 10/11/21 12:03 Laboratory Results - last 24 hr 10/10/21 10/11/21 10/11/21 18:38 06:26 06:26 WBC 9.48 RBC 4.40 Hgb 13.1 L Hct 41.3 MCV 94 MCH 29.8 MCHC 31.7 L RDW 17.7 H Plt Count 248 MPV 9.6 Immature Gran % 1.7 Neutrophils % 82.7 Lymphocytes % 9.0 Monocytes % 5.2 Eosinophils % 1.2 Basophils % 0.2 Nucleated RBC % 0.0 Absolute Neutrophils 7.85 H Absolute Lymphocytes 0.85 L Absolute Monocytes 0.49 Absolute Eosinophils 0.11 Absolute Basophils 0.02 VBG Lactate 1.7 H Sodium 140 Potassium 4.1 Chloride 108 H Carbon Dioxide 24.8 Anion Gap 7.2 BUN 24 H Creatinine 0.7 Estimated GFR/1.73 m2 >= 60.00 Glucose 70 L Calcium 8.2 L Add-On Test Request 10/11/21 10/11/21 07:48 08:04 WBC RBC Hgb Hct MCV MCH MCHC RDW Plt Count MPV Immature Gran % Neutrophils % Lymphocytes % Monocytes % Eosinophils % Basophils % Nucleated RBC % Absolute Neutrophils Absolute Lymphocytes Absolute Monocytes Absolute Eosinophils Absolute Basophils VBG Lactate 1.9 H Sodium Potassium Chloride Carbon Dioxide Anion Gap BUN Creatinine Estimated GFR/1.73 m2 Glucose Calcium Add-On Test Request TNP PAWSS Pt Consumed Any Amount of Alcohol Within the Last 30 days OR had positive SHANNON Upon Admission: No
[2021-10-11] MEDS: Ipratropium/Albuterol 4 GM 120 PUFF INH IH ×2 (15:20→19:50)
[2021-10-11] MEDS: Sucralfate 1 GM TAB PO ×2 (17:10→22:49)
[2021-10-11] MEDS: buPROPion-CR 150 MG TABCR PO (19:49)
[2021-10-11] MEDS: Atorvastatin 10 MG TAB PO (19:50)
[2021-10-11] MEDS: Tamsulosin 0.4 MG CAPCR PO (22:49)
[2021-10-11] MEDS: Mirtazapine 15 MG TAB 7.5 MG PO (22:49)
[2021-10-12 02:50] VITALS: BP 114/83; PULSE 75; RESP 16; TEMP 36.4; O2SAT 99
[2021-10-12 07:33] LABS: Abs Immature Grans 0.29 10^3/uL (0.0-0.06); Absolute Basophil Count 0.02 10^3/uL (0.0-0.2); Absolute Eosinophil Count 0.13 10^3/uL (0.0-0.7); Absolute Lymphocyte Count 1.01 10^3/uL (1.2-3.4); Absolute Monocyte Count 0.72 10^3/uL (0.1-0.8); Absolute Neutrophil Count 7.13 10^3/uL (1.2-6.7); Basophils % 0.2; Eosinophils % 1.4; HCT 38.1 % (40.0-50.0); HGB 12.1 g/dL (13.5-17.5); Immature Grans % 3.1; Lymphocytes % 10.9; MCH 30.2 pg (27.0-33.0); MCHC 31.8 % (32.0-36.0); MCV 95 fL (80-95); MPV 9.6 fL (8.0-11.0); Monocytes % 7.7; Neutrophils % 76.7; Platelet Count 224 10^3/uL (130-400); RBC 4.01 10^6/uL (4.36-5.78); RDW 17.4 % (11.8-14.1); RDW-SD 60.1 fL
[2021-10-12 07:37] VITALS: BP 93/67; PULSE 82; RESP 16; TEMP 36; O2SAT 98
[2021-10-12 07:58] LABS: Anion Gap 4.1 mmol/L (3-11); BUN 29 mg/dL (7-18); CO2 25.9 mmol/L (21.0-32.0); CREATININE 0.7 mg/dL (0.70-1.30); Chloride 106 mmol/L (98-107); Glucose 57 mg/dL (74-106); Magnesium 2.1 mg/dL (1.8-2.4); Potassium 4.1 mmol/L (3.5-5.1); Sodium 136 mmol/L (136-145)
[2021-10-12] MEDS: Ipratropium/Albuterol 4 GM 120 PUFF INH IH ×2 (08:23→14:13)
[2021-10-12] MEDS: Tiotropium Bromide-Respimat 10 PUFF INH IH (08:23)
[2021-10-12] MEDS: Protein Nutritional Supplement 16 GM 1 OUNCE PACKET PO ×2 (08:28→20:24)
[2021-10-12] MEDS: Nicotine 14 MG/24 HR PATCH TD (08:28)
[2021-10-12] MEDS: HYDROcodone 10/Acetaminophen 325 TAB PO ×3 (08:30→20:24)
[2021-10-12] MEDS: Diclofenac 1% Gel 100 GM TUBE TP ×4 (08:30→20:25)
[2021-10-12] MEDS: Folic Acid 1 MG TAB PO (08:30)
[2021-10-12] MEDS: Normal Saline Flush 10 ML SYR IVP (08:30)
[2021-10-12] MEDS: Cholecalciferol (Vitamin D3) 1,000 UNIT TAB 2000 UNITS PO (08:31)
[2021-10-12] MEDS: Ferrous Sulfate 325 MG TAB PO (08:31)
[2021-10-12] MEDS: buPROPion-CR 150 MG TABCR PO ×2 (08:31→20:24)
[2021-10-12] MEDS: Sucralfate 1 GM TAB PO ×4 (08:31→21:14)
[2021-10-12] MEDS: Pantoprazole 40 MG TABCR PO (08:31)
--- NOTE | 2021-10-12 08:37 | PDOC.CMIN ---
- If Service Date Differs Date of service: 10/12/21 Time of Service: 08:37 Care Management Initial Assess REASON FOR HOSPITALIZATION:: Pneumonia, Lung Mass, Generalized Weakness, Fall
--- NOTE | 2021-10-12 08:47 | CMPROGNOTE_ITS ---
- If Service Date Differs Date of service: 10/12/21 Time of Service: 08:47 Care Management Progress Note S/O: Ilia was lying in bed when CM met with him. He is willing to discharge to SNF following discharge and agrees to the following 3 SNF referrals: [facility] and [facility]. Referrals were sent. Palliative Consult was ordered today, to discuss goals of care and review code status. Ilia has been offered and accepted a bed at [facility] and [facility]. Repeat Covid test ordered and CM will communicate discharge details with [facility] and [facility] in the morning. A: 71 year old male admitted to [facility] on 10/09/21 for Pneumonia, lung mass, generalized weakness, fall P: Ilia has become very weak and has fallen at home. Anticipate Ilia will discharge to SNF for STR vs. Home with increased services depending on progress made during this admission. Ilia is agreeable to SNF referral to [facility], [facility] if unable to return home, referrals sent 10/12/21. Ilia will follow up with his community providers and plan of care and transport with family. CM will continue to support Ilia and assess for ongoing discharge needs.
[2021-10-12 09:05] LABS: Lactate 2.5 mmol/L (0.6-1.4)
[2021-10-12] MEDS: DOXYCYCLINE 100 MG in Normal Saline 100 ML IVPB ×2 (10:03→22:59)
--- NOTE | 2021-10-12 10:23 | W.NUTCONSULT ---
Date of service: 10/12/21 Time of Service: 10:23 Nutritional Consult ASSESSMENT: Nain is a 71 year old male admitted with cachexia and weakness with hx of CHF, esophageal cancer and 37 lbs weight loss in last 90 days with BMI of 14 indicating severe malnutrition. Following minced and moist meal plan with thin liquids, supplemented with ensure TID. Estimated Needs: [id number] kcal, 50-60 g protein Will meet macronutrient needs with meal completion of > 75% NUTRITIONAL DIAGNOSIS: Severe malnutrition in view of 40% weight loss in last 90 days INTERVENTION: continue minsed and moist meal plan with ensure plus TID MONITORING AND EVALUATION: will monitor po intake, labs, weight Time Spent in Nutritional Counseling and Treatment: 10
[2021-10-12 11:09] VITALS: BP 106/71; PULSE 71; RESP 16; TEMP 36.1; O2SAT 100
[2021-10-12] MEDS: DEXTROSE 5%-0.9% SALINE 1,000 ML 80 ML IV (11:22)
[2021-10-12] MEDS: CEFEPIME 1 GM in Normal Saline 50 ML IVPB ×2 (11:22→21:15)
[2021-10-12] MEDS: Enoxaparin 40 MG/0.4 ML SYR SC (12:20)
[2021-10-12] MEDS: Multivitamin TAB 1 TAB PO (12:27)
--- NOTE | 2021-10-12 13:23 | W.PULMCON ---
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 The large RML infiltrate/nodule was not present on scan from April, which makes this highly unlikely to be malignant. He certainly has CPFE and likely does have COPD. This can be evaluated more thoroughly as an outpatient which my clinic is rescheduling him for. He does have some focal bronchiectasis, likely from prior infections and has been admitted to hospital recently so treatment with cefepime is likely a good choice. I would get more diagnostics surrounding the lung infection. In addition to infection, autoimmune processes and vasculitis processes can have this appearance. While in hospital we can rule these out as well. CAP - continue cefepime and doxycycline - 5 day course needed for lungs - recommend urine antigens for legionella and strep pneumo - sputum culture if able - CHARLY, RF, anti-CCP, and ANCA CPFE - would change Spiriva to Stiolto - discontinue Combivent - albuterol prn History of Present Illness Narrative: This is a 71 yo man whom I met in April in the ICU for a GIB at which point he was found to be COVID positive (incidentally). He received remdesivir at that time. I was scheduled to see him today in clinic, but he is hospitalized. I was consulted to see this patient for an abnormal chest CT. He is through to have Pneumonia and is being treated with cefepime and doxycycline for this.His chest CT from April found bibasilar infiltrates and some scattered nodules. They current chest CT redemonstrates the bibasilar infiltrates but now there is a prominent RML infiltrate. There is now also more prominant mediastinal and hilar LAD present. He denies any cough or breathing problems. He has a 50 pack year smoking history but hasnt had any since being admitted and it hoping he can stay away from them. Review of Systems All systems reviewed & are unremarkable except as noted in HPI and below PFSH All Active Problems (Updated 10/12/21 @ 15:36 by Kerry Bingham NP) 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) DVT prophylaxis (Acute) Discharge planning issues (Acute) CAP (community acquired pneumonia) (Acute) Poor hygiene (Chronic) Fall (Acute) Altered mental status (Acute) Generalized weakness (Acute) Skin tear of left elbow without complication (Acute) Chronic obstructive lung disease (Chronic) Tricuspid regurgitation (Chronic) CAD (coronary artery disease) (Chronic) Hypertension (Chronic) Medical History (Updated 10/12/21 @ 15:36 by Kerry Bingham NP) Abdominal pain Abnormal radiologic findings on diagnostic imaging of renal pelvis, ureter, or bladder Acute on chronic anemia Acute on chronic diastolic (congestive) heart failure Acute on chronic systolic CHF (congestive heart failure) Adenocarcinoma of esophagus Afib Alcohol abuse Alcohol abuse, continuous drinking behavior Anemia Bilateral lower extremity edema CAD (coronary artery disease) of artery bypass graft Cerumen impaction CHF, acute on chronic Confusion state COVID-19 COVID-19 Diabetes mellitus Difficulty reading Edema Encounter for colorectal cancer screening Epididymitis, right (08/02/16) Essential hypertension Failure to thrive GERD (gastroesophageal reflux disease) GI bleed GI bleeding H/O malignant neoplasm of stomach Heart failure, left, with LVEF 41-49% History of GI bleed Hoarseness Hydrocele, right (01/23/16) Hyperlipidemia Hypokalemia Hypophosphatemia Kyphoscoliosis Low back pain Malnutrition Mild bibasilar atelectasis Pancreatitis Prediabetes Protein malnutrition Pulmonary hypertension Recent weight loss Rib fractures Shortness of breath Solitary pulmonary nodule Tinnitus, left Tobacco abuse Weight loss Surgical History cardiac cath Coronary Artery Bypass Gaft (CABG) EGD - IV Sedation Esophagectomy H/O colonoscopy (2007) H/O colonoscopy (04/14/18) dr geller, sigmoid diverticulosis, repeat 10 years History of esophagogastroduodenoscopy (EGD) (09/2017) History of hydrocelectomy History of right inguinal hernia repair repair times two sugrical flap of unhealing wound Family History Mother No problems noted. Father No problems noted. Social History Smoking/Tobacco Use Status: Current-Occasional Tobacco Type: cigarettes Smoking packs per day: 1 Smoking cigarettes per day: 20.0 Years smoked: 50 Smoking pack-years: 50.00 Smoking risk assessment performed?: Yes Alcohol Intake: current Alcohol Intake frequency: 0-2 drinks per day Alcohol type: beer Drug use: Never Substance use type: does not use What type of physical activity do you participate in: none Do you feel safe at home: Yes Do you feel safe in your relationship?: Yes Visit Medication and Allergies Active Medications Generic Name Dose Route Start Last Admin Trade Name Freq PRN Reason Stop Dose Admin Acetaminophen 0 mg 10/09/21 10:11 10/10/21 13:42 Acetaminophen 325 Mg Tab PO 650 mg Q4H PRN PRN Administration Hydrocodone Bitart/Acetaminophen 1 tab 10/09/21 15:52 10/12/21 08:30 Hydrocodone 10/Acetaminophen 325 Tab PO 1 tab TID HOMER Administration Al Hydrox/Mg Hydrox/Simethicone 30 ml 10/09/21 10:48 10/11/21 10:06 Mylanta Suspension 30 Ml Cup PO 30 ml Q2H PRN PRN Administration Albuterol/Ipratropium 2 puff 10/11/21 14:00 10/12/21 08:23 Ipratropium/Albuterol 4 Gm 120 Puff Inh IH 2 puffs TID HOMER Administration Atorvastatin Calcium 10 mg 10/11/21 20:00 10/11/21 19:50 Atorvastatin 10 Mg Tab PO 10 mg QPM HOMER Administration Bupropion HCl 150 mg 10/11/21 20:00 10/12/21 08:31 Bupropion-Cr 150 Mg Tabcr PO 150 mg BID HOMER Administration Cholecalciferol 2,000 units 10/12/21 08:30 10/12/21 08:31 Cholecalciferol (Vitamin D3) 1,000 Unit Tab PO 2,000 units DAILY HOMER Administration Device 1 each 10/11/21 14:00 Inhaler, Assist Device DIRECTED HOMER Dextrose/Water 25 gm 10/12/21 09:16 Dextrose 50%-Water 25 Gm/50 Ml Syr IVP PRN PRN Diclofenac Sodium 100 gm 10/09/21 23:45 10/12/21 12:20 Diclofenac 1% Gel 100 Gm Tube TP 1 applic QID HOMER Administration Dimethicone/Zinc Oxide 0 gm 10/09/21 09:45 Haley Protect Cream 142 Gm Tube TP PRN PRN Docusate Sodium 100 mg 10/09/21 10:11 10/10/21 13:09 Docusate Sodium 100 Mg Cap PO 100 mg TID PRN PRN Administration Enoxaparin Sodium 40 mg 10/09/21 12:00 10/12/21 12:20 Enoxaparin 40 Mg/0.4 Ml Syr SC 40 mg Q24H HOMER Administration Ferrous Sulfate 325 mg 10/12/21 08:30 10/12/21 08:31 Ferrous Sulfate 325 Mg Tab PO 325 mg DAILY HOMER Administration Folic Acid 1 mg 10/12/21 08:30 10/12/21 08:30 Folic Acid 1 Mg Tab PO 1 mg DAILY HOMER Administration Sodium Chloride 500 mls @ 0 mls/hr 10/09/21 04:54 10/11/21 12:27 Saline 500ml Bag IV 0 mls/hr PRN PRN Infusion As Directed Doxycycline Hyclate 100 mg/ 100 mls @ 100 mls/hr 10/09/21 22:00 10/12/21 10:03 Sodium Chloride IVPB 100 mls/hr Q12H HOMER Administration Cefepime HCl 1 gm/ Sodium 50 mls @ 100 mls/hr 10/10/21 10:00 10/12/21 11:22 Chloride IVPB 100 mls/hr Q12H HOMER Administration Dextrose/Sodium Chloride 1,000 mls @ 80 mls/hr 10/12/21 09:30 10/12/21 11:22 Dextrose 5%-Ns IV 80 mls/hr INFUSION HOMER Administration Thiamine HCl 500 mg/ Sodium 105 mls @ 200 mls/hr 10/12/21 14:00 Chloride IVPB 10/15/21 06:32 Q8H [facility] IV Miscellaneous Supplies 1 each 10/09/21 05:00 Iv Access IV DIRECTED HOMER Magnesium Hydroxide 30 ml 10/09/21 10:11 10/10/21 13:09 Milk Of Magnesia 30 Ml Cup PO 30 ml DAILY PRN PRN Administration Mirtazapine 7.5 mg 10/11/21 22:00 10/11/21 22:49 Mirtazapine 15 Mg Tab PO 7.5 mg HS HOMER Administration Multi-Ingredient Supplement 1 ounce 10/09/21 20:00 10/12/21 08:28 Protein Nutritional Supplement 16 Gm 1 Ounce Packet PO 1 ounce TID HOMER Administration Multivitamins 1 tab 10/13/21 08:30 Multivitamin Tab PO DAILY HOMER Nicotine 14 mg 10/09/21 16:00 10/12/21 08:28 Nicotine 14 Mg/24 Hr Patch TD 14 mg DAILY HOMER Administration Pantoprazole Sodium 40 mg 10/12/21 07:30 10/12/21 08:31 Pantoprazole 40 Mg Tabcr PO 40 mg DAILY@0730 HOMER Administration Polyethylene Glycol 17 gm 10/09/21 10:11 10/10/21 13:09 Polyethylene Glycol 3350 17 Gm Packet PO 17 gm DAILY PRN PRN Administration Constipation Sodium Chloride 0 ml 10/09/21 04:54 10/12/21 08:30 Normal Saline Flush 10 Ml Syr IVP 10 ml PRN PRN Administration Sucralfate 1 gm 10/11/21 16:30 10/12/21 12:20 Sucralfate 1 Gm Tab PO 1 gm AC & HS HOMER Administration Tiotropium [place] 0 puff 10/12/21 08:30 10/12/21 08:23 Tiotropium [place]-Respimat 10 Puff Inh IH 1 puff DAILY HOMER Administration White Petrol/Mineral Oil/Lanolin 0 gm 10/12/21 08:30 10/12/21 08:29 Eucerin 120 Gm Jar TP 1 applic DAILY HOMER Administration Allergies No Known Allergies Allergy (Verified 09/17/21 18:28) Exam Narrative Exam Narrative: Gen: NAD, normal respiratory effort, well-nourished HENT: PERRL, nasal turbinates normal without erythema or inflammation, moist oral mucosa, Mallampati 2, No LAD or JVD Chest: No respiratory distress, normal appearance of chest, clear to auscultation bilaterally, no crackles or wheezes, normal inspiratory effort Heart: regular rate and rhythym, no murmurs, rubs or gallops Abdomen: Non-distended, soft, non tender Extremities: No clubbing, edema, cyanosis, rashes Neuro: AAOx3 , non focal Psych: cooperative, appropriate mental affect Results Last Vital Signs Temp 36.1 C L 10/12/21 11:09 Pulse 71 10/12/21 11:09 Resp 16 10/12/21 11:09 BP 106/71 10/12/21 11:09 Pulse Ox 100 10/12/21 11:09 Labs Result diagrams: 10/12/21 06:26 10/12/21 06:26 Labs: Laboratory Results - last 24 hr 10/12/21 10/12/21 10/12/21 06:26 06:26 09:01 WBC 9.30 RBC 4.01 L Hgb 12.1 L Hct 38.1 L MCV 95 MCH 30.2 MCHC 31.8 L RDW 17.4 H Plt Count 224 MPV 9.6 Immature Gran % 3.1 Neutrophils % 76.7 Lymphocytes % 10.9 Monocytes % 7.7 Eosinophils % 1.4 Basophils % 0.2 Nucleated RBC % 0.0 Absolute Neutrophils 7.13 H Absolute Lymphocytes 1.01 L Absolute Monocytes 0.72 Absolute Eosinophils 0.13 Absolute Basophils 0.02 VBG Lactate 2.5 H* Sodium 136 Potassium 4.1 Chloride 106 Carbon Dioxide 25.9 Anion Gap 4.1 BUN 29 H Creatinine 0.7 Estimated GFR/1.73 m2 >= 60.00 Glucose 57 L Calcium 8.0 L Magnesium [address] scan - chest: report reviewed and image reviewed
--- NOTE | 2021-10-12 14:50 | PGE_ITS ---
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 On cefepime day 35 and doxy 3 he was able to produce sputum today yellowish in color, Sputum cx ordered Per Dr. Ayala recommendations CHARLY, RF, anti-ccp, anca ordered for the am. Urine anti-gen legionella and strep pneumonia, combivent dcd spiriva switched to stiolito LSC. Afebrile, no leukocytosis. Qualifiers: Laterality: right Lung location: middle lobe of lung Qualified Code(s): J18.9 - Pneumonia, unspecified organism (2) Urinary retention: Start date: 10/12/21 Start time: 15:00 Status: Chronic Assessment and plan: Cervantes since september with no voiding trial. questionable UTI, his first urine cx, mixed gilbert repeat cx. Will d/c cervantes and trial voiding per Dr. Poole recommendations. He is not constipated and has been on flomax therefore the should be able to void without difficulty. Bladder scan q6 hour and PVR (3) Generalized weakness: Start date: 10/12/21 Start time: 15:00 Status: Acute Assessment and plan: Deconditioned, Good appetite Add ensure to every meal Monitor I/O and intake (4) Fall: Start date: 10/12/21 Start time: 15:00 Status: Acute Assessment and plan: Very weak and cachectic with difficulty ambulating by himself. Continue PT . Safety (5) Altered mental status: Start date: 10/12/21 Start time: 15:00 Status: Acute Assessment and plan: Patient is drinks alcohol. Unsure if he was drinking prior to admission. Placed on high dose thiamine. Continue to monitor (6) Skin tear of left elbow without complication: Start date: 10/12/21 Start time: 15:00 Status: Acute Assessment and plan: Skin tear - clean; apply mepalex; change every other day and as needed, assess for healing/infection also has several scabbed areas to right hand and arm (7) Hypertension: Start date: 10/12/21 Start time: 15:00 Status: Chronic Assessment and plan: on metoprolol, bumex and spironolactone, however on hold at this time d/'t low bp, will continue to monitor and resume when appropriate continues to be low along with bmp, question of adrenal insufficiency, cortisol level done, given hydrocortisone IV to see if this helpful (8) CAD (coronary artery disease): Start date: 10/12/21 Start time: 15:00 Status: Chronic Assessment and plan: as above (9) Tricuspid regurgitation: Start date: 10/12/21 Start time: 15:00 Status: Chronic Assessment and plan: as above (10) Chronic obstructive lung disease: Start date: 10/12/21 Start time: 15:00 Status: Chronic Assessment and plan: continue home medications (11) DVT prophylaxis: Start date: 10/12/21 Start time: 15:00 Status: Acute Assessment and plan: enoxparin (12) Discharge planning issues: Start date: 10/11/21 Start time: 12:00 Status: Acute Assessment and plan: Home when medically ready discussed with Dr. Mayberry Subjective Subjective Patient reports: no new complaints Interval history since last seen: Patient is slightly confused Oriented x 2. He is also showing signs of adrenal insufficiency. He has never been on steroids. However he does have pulmonary nodules and could have adrenal nodules. Cortisol lab done, will treat with hydrocortisone as patient has low bgl, bp and labs, will see if this improves these sx. He also had an elevated lactate today of 2.5. Afebrile and no wbc. Will expect elevated wbc tomorrow in setting of steroid. Repeat lactate in am and obtain procal. Denies CP, SOB Exam Narrative Exam Narrative: Gen: NAD, normal respiratory effort, cachexia Oriented x 2 at times other times AAOx 3 HENT: PERRL, nasal turbinates normal without erythema or inflammation, moist oral mucosa,, No LAD or JVD Chest: No respiratory distress, normal appearance of chest, clear to auscultation bilaterally, no crackles or wheezes, normal resp effort Heart: regular rate and rhythym, no murmurs, rubs or gallops Abdomen: Non-distended, soft, non tender Extremities: No clubbing, edema, cyanosis, rashes Psych: cooperative, appropriate mental affect Objective Last Vital Signs Temp 36.1 C L 10/12/21 11:09 Pulse 71 10/12/21 11:09 Resp 16 10/12/21 11:09 BP 106/71 10/12/21 11:09 Pulse Ox 100 10/12/21 11:09 Laboratory Results - last 24 hr 10/12/21 10/12/21 10/12/21 06:26 06:26 09:01 WBC 9.30 RBC 4.01 L Hgb 12.1 L Hct 38.1 L MCV 95 MCH 30.2 MCHC 31.8 L RDW 17.4 H Plt Count 224 MPV 9.6 Immature Gran % 3.1 Neutrophils % 76.7 Lymphocytes % 10.9 Monocytes % 7.7 Eosinophils % 1.4 Basophils % 0.2 Nucleated RBC % 0.0 Absolute Neutrophils 7.13 H Absolute Lymphocytes 1.01 L Absolute Monocytes 0.72 Absolute Eosinophils 0.13 Absolute Basophils 0.02 VBG Lactate 2.5 H* Sodium 136 Potassium 4.1 Chloride 106 Carbon Dioxide 25.9 Anion Gap 4.1 BUN 29 H Creatinine 0.7 Estimated GFR/1.73 m2 >= 60.00 Glucose 57 L Calcium 8.0 L Magnesium 2.1 PAWSS Pt Consumed Any Amount of Alcohol Within the Last 30 days OR had positive SHANNON Upon Admission: No
--- NOTE | 2021-10-12 14:54 | UCONE_ITS ---
Date of service: 10/12/21 Time of Service: 14:54 Assessment and Plan Assessment and plan (1) Urinary retention: Status: Chronic Assessment and plan: In reviewing his records, it appeared that he had significant constipation at the time of Biggs catheter was placed for retention. Typically, our recom mendation is to leave the catheter in place until the constipation has been addressed. A voiding trial can then be given. As long as his bowels seem to be working, I do not have any objection to giving him a voiding trial. History of Present Illness History of Present Illness Chief Complaint: Urinary retention Narrative: This is a 71-year-old gentleman who is known to me from previous issues with a hydrocele. I have been asked to see him regarding urinary retention. It appears that he had a Biggs catheter placed in the emergency department about a month ago. Base d on the documentation, over a liter of urine was obtained. The patient was also significantly constipated at that time. His renal function was normal. The patient tells me that the initial catheter was removed, but based on the information I can gather, the catheter remained in place and was changed when he presented back to the hospital just a few days ago. I cannot find any documentation that he actually had a voiding trial. He is currently hospitalized with weakness, confusion and an inability to care for himself at home. He converses with me, but the accuracy of the information he provides is questionable. He does have a history of constipation but tells me that his bowels seem to be moving fairly well at this time Review of Systems Unobtainable due to mental status PFSH All Active Problems (Updated 10/12/21 @ 17:18 by Staci Bradford NP) Palliative care encounter (Acute) 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) DVT prophylaxis (Acute) Discharge planning issues (Acute) CAP (community acquired pneumonia) (Acute) Poor hygiene (Chronic) Fall (Acute) Altered mental status (Acute) Generalized weakness (Acute) Skin tear of left elbow without complication (Acute) Chronic obstructive lung disease (Chronic) Tricuspid regurgitation (Chronic) CAD (coronary artery disease) (Chronic) Hypertension (Chronic) Medical History (Updated 10/12/21 @ 17:18 by Staci Bradford NP) Abdominal pain Abnormal radiologic findings on diagnostic imaging of renal pelvis, ureter, or bladder Acute on chronic anemia Acute on chronic diastolic (congestive) heart failure Acute on chronic systolic CHF (congestive heart failure) Adenocarcinoma of esophagus Afib Alcohol abuse Alcohol abuse, continuous drinking behavior Anemia Bilateral lower extremity edema CAD (coronary artery disease) of artery bypass graft Cerumen impaction CHF, acute on chronic Confusion state COVID-19 COVID-19 Diabetes mellitus Difficulty reading Edema Encounter for colorectal cancer screening Epididymitis, right (08/02/16) Essential hypertension Failure to thrive GERD (gastroesophageal reflux disease) GI bleed GI bleeding H/O malignant neoplasm of stomach Heart failure, left, with LVEF 41-49% History of GI bleed Hoarseness Hydrocele, right (01/23/16) Hyperlipidemia Hypokalemia Hypophosphatemia Kyphoscoliosis Low back pain Malnutrition Mild bibasilar atelectasis Pancreatitis Prediabetes Protein malnutrition Pulmonary hypertension Recent weight loss Rib fractures Shortness of breath Solitary pulmonary nodule Tinnitus, left Tobacco abuse Weight loss Surgical History cardiac cath Coronary Artery Bypass Gaft (CABG) EGD - IV Sedation Esophagectomy H/O colonoscopy (2007) H/O colonoscopy (04/14/18) dr geller, sigmoid diverticulosis, repeat 10 years History of esophagogastroduodenoscopy (EGD) (09/2017) History of hydrocelectomy History of right inguinal hernia repair repair times two sugrical flap of unhealing wound Family History Mother No problems noted. Father No problems noted. Social History Smoking/Tobacco Use Status: Current-Occasional Tobacco Type: cigarettes Smoking packs per day: 1 Smoking cigarettes per day: 20.0 Years smoked: 50 Smoking pack- years: 50.00 Smoking risk assessment performed?: Yes Alcohol Intake: current Alcohol Intake frequency: 0-2 drinks per day Alcohol type: beer Drug use: Never Substance use type: does not use What type of physical activity do you participate in: none Do you feel safe at home: Yes Do you feel safe in your relationship?: Yes Exam Narrative Exam Narrative: He does not appear septic or toxic. He appears chronically ill. His vital signs are documented elsewhere His abdomen is soft. His bladder is not distended. A Biggs catheter is in place and is draining clear urine He is awake and alert Results Last Vital Signs Temp 36.1 C L 10/12/21 11:09 Pulse 71 10/12/21 11:09 Resp 16 10/12/21 11:09 BP 106/71 10/12/21 11:09 Pulse Ox 100 10/12/21 11:09 Labs Result diagrams: 10/12/21 06:26 10/12/21 06:26 Labs: Laboratory Results - last 24 hr 10/12/21 10/12/21 10/12/21 06:26 06:26 09:01 WBC 9.30 RBC 4.01 L Hgb 12.1 L Hct 38.1 L MCV 95 MCH 30.2 MCHC 31.8 L RDW 17.4 H Plt Count 224 MPV 9.6 Immature Gran % 3.1 Neutrophils % 76.7 Lymphocytes % 10.9 Monocytes % 7.7 Eosinophils % 1.4 Basophils % 0.2 Nucleated RBC % 0.0 Absolute Neutrophils 7.13 H Absolute Lymphocytes 1.01 L Absolute Monocytes 0.72 Absolute Eosinophils 0.13 Absolute Basophils 0.02 VBG Lactate 2.5 H* Sodium 136 Potassium 4.1 Chloride 106 Carbon Dioxide 25.9 Anion Gap 4.1 BUN 29 H Creatinine 0.7 Estimated GFR/1.73 m2 >= 60.00 Glucose 57 L Calcium 8.0 L Magnesium 2.1
--- NOTE | 2021-10-12 15:35 | PTTR_ITS ---
PT Notes Visit Reasons: Pneumonia,Lung Mass,Generalized Weakness Inpatient Physical Therapy Treatment Note [facility] Date: 10/12/2021 PRECAUTIONS: Fall, Activity as tolerated SUBJECTIVE: Ilia reports that he is not feeling well today. He states that he fe els tired and is very weak. OBJECTIVE: Patient refused morning PT session. PAIN: No c/o pain BED MOBILITY/TRANSFERS Supine-sit: CGA with HOB at 20 degrees Sit-stand: CGA Stand-sit: CGA GAIT: Assistive Device: FWW Weight bearing: Full Assist: CGA Distance: 15' Deviation: Refused further ambulation THEREX: Patient was instructed in a seated LE strengthening program, to include: ankle pumps, heel raises, LAQ, seated marching, and hip abduction exercises. ASSESSMENT: Patient tolerated session with complaint of increased fatigue. He requires significant encouragement to engage in PT, but would benefit from global strengthening and general conditioning. PLAN: Continue with global strengthening and general conditioning for improved mobility and activity tolerance. TREATMENT CODE/TIME: 18 minutes; [id number] (11:29)
[2021-10-12] MEDS: THIAMINE 500 MG in Normal Saline 100 ML 200 MG IVPB ×2 (15:51→22:45)
[2021-10-12] MEDS: Hydrocortisone SOD SUC. 100 MG VIAL IVP (15:52)
[2021-10-12 16:01] VITALS: BP 105/75; PULSE 77; RESP 18; TEMP 35.8; O2SAT 100
--- NOTE | 2021-10-12 16:40 | PCNE_ITS ---
Date of service: 10/12/21 Time of Service: 15:45 History of Present Illness Narrative: Mr. Morillo is a 71 y/o M currently inpt at [facility] 2/2 FTT; PMHx sig for A fib, coronary artery dz, CHF, HTN, COPD, adenocarcinoma of esophagus; PALC consult placed to review goals of care Pt reports feeling slightly better since presentation to ED r/t fall / weakness, reports elbow still hurts a bit, but feels better; reports feeling sleepy and fatigued, slightly better than prior to presentation; denies any breathing c/o: cough, SOB, dyspnea, pain w/deep inspirations; reports appetite was severly reduced and aware that it caused some weight loss, but improving now, reports appetite appropriate today, has been eating all meals; reports falls at home infrequent, less than 1/mo; reports h/o drinking alcohol, around 1 beer/day for several years, has not drank for around 6 mos now; reports s/p COVID, and doesn't feel has returned to how he was before reports lives at home w/roommate Lyudmila, who is also sick, but she takes good care of him; would benefit from home safety assessment from OT upon return home, for grab bars, etc; reports iADLs, uses cane to ambulate, feels safe at home; agrees to SNF upon d/c for continued improvement in strength and stamina, preference for H/R over any other rehab, would like to stay local and has friends there; not overly excited about engaging in PT bc doesn't see the point, but willing to engage as part of discharge plan; reports would like to take further work up on lungs and what is going on internally day by day, unsure of willingness to engage in work up/treatment at this time; reports sister Chrissy has H[facility], not overly close w/her; close w/roommate Lyudmila Goals: go to H/R to get stronger to return home, to work around home; has 6 steps to get into home; preference to remain FULL CODE at this time, willing to f/u in future visits Hospital Course: presented [facility] ED 10/09/21 w/CC weakness, fall, altered mental status, and L elbow pain; transitioned inpt 07/08 FTT; 10/11/21 dx w/CAP RS w/lung nodules, on cefepime and doxy, pulmonary consult pending Assessment and Plan Assessment and plan (1) Combined pulmonary fibrosis and emphysema (CPFE): Status: Acute Assessment and plan: per pulmonology: The large RML infiltrate/nodule was not present on scan from April, which makes this highly unlikely to be malignant. He certainly has CPFE and likely does have COPD. This can be evaluated more thoroughly as an outpatient which my clinic is rescheduling him for. He does have some focal bronchiectasis, likely from prior infections and has been admitted to hospital recently so treatment with cefepime is likely a good choice. I would get more diagnostics surrounding the lung infection. In addition to infection, autoimmune processes and vasculitis processes can have this appearance. While in hospital we can rule these out as well. (2) CAP (community acquired pneumonia): Status: Acute Qualifiers: Laterality: right Lung location: middle lobe of lung Qualified Code(s): J18.9 - Pneumonia, unspecified organism (3) Fall: Status: Acute Assessment and plan: r/t weakness (4) Generalized weakness: Status: Acute Assessment and plan: encouraged pt engage in PT, plan for d/c to SNF, applications pending (5) Skin tear of left elbow without complication: Status: Acute (6) Failure to thrive: Qualifiers: Failure to thrive age range: in adult Qualified Code(s): R62.7 - Adult failure to thrive (7) Weight loss: Assessment and plan: r/t FTT and likely malignancy, appetite improving, continue to monitor; (8) Palliative care encounter: Status: Acute Assessment and plan: continue to follow, may request additional PALC consults while inpatient, follow through d/c to SNF or home, recommend HH referral when returns home pt preference to remain FULL CODE at this time, would want CPR attempted but not prolonged Review of Systems Constitutional Constitutional: Reports as per HPI PFSH All Active Problems (Updated 10/12/21 @ 17:18 by Staci Bradford NP) Palliative care encounter (Acute) 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) DVT prophylaxis (Acute) Discharge planning issues (Acute) CAP (community acquired pneumonia) (Acute) Poor hygiene (Chronic) Fall (Acute) Altered mental status (Acute) Generalized weakness (Acute) Skin tear of left elbow without complication (Acute) Chronic obstructive lung disease (Chronic) Tricuspid regurgitation (Chronic) CAD (coronary artery disease) (Chronic) Hypertension (Chronic) Medical History (Updated 10/12/21 @ 17:18 by Staci Bradford NP) Abdominal pain Abnormal radiologic findings on diagnostic imaging of renal pelvis, ureter, or bladder Acute on chronic anemia Acute on chronic diastolic (congestive) heart failure Acute on chronic systolic CHF (congestive heart failure) Adenocarcinoma of esophagus Afib Alcohol abuse Alcohol abuse, continuous drinking behavior Anemia Bilateral lower extremity edema CAD (coronary artery disease) of artery bypass graft Cerumen impaction CHF, acute on chronic Confusion state COVID-19 COVID-19 Diabetes mellitus Difficulty reading Edema Encounter for colorectal cancer screening Epididymitis, right (08/02/16) Essential hypertension Failure to thrive GERD (gastroesophageal reflux disease) GI bleed GI bleeding H/O malignant neoplasm of stomach Heart failure, left, with LVEF 41-49% History of GI bleed Hoarseness Hydrocele, right (01/23/16) Hyperlipidemia Hypokalemia Hypophosphatemia Kyphoscoliosis Low back pain Malnutrition Mild bibasilar atelectasis Pancreatitis Prediabetes Protein malnutrition Pulmonary hypertension Recent weight loss Rib fractures Shortness of breath Solitary pulmonary nodule Tinnitus, left Tobacco abuse Weight loss Surgical History cardiac cath Coronary Artery Bypass Gaft (CABG) EGD - IV Sedation Esophagectomy H/O colonoscopy (2007) H/O colonoscopy (04/14/18) dr geller, sigmoid diverticulosis, repeat 10 years History of esophagogastroduodenoscopy (EGD) (09/2017) History of hydrocelectomy History of right inguinal hernia repair repair times two sugrical flap of unhealing wound Family History Mother No problems noted. Father No problems noted. Social History Smoking/Tobacco Use Status: Current-Occasional Tobacco Type: cigarettes Smoking packs per day: 1 Smoking cigarettes per day: 20.0 Years smoked: 50 Smoking pack- years: 50.00 Smoking risk assessment performed?: Yes Alcohol Intake: current Alcohol Intake frequency: 0-2 drinks per day Alcohol type: beer Drug use: Never Substance use type: does not use What type of physical activity do you participate in: none Do you feel safe at home: Yes Do you feel safe in your relationship?: Yes Exam Narrative Exam Narrative: sitting comfortably upright in bed throughout visit, intermittently closes eyes, fatigued Const General: cooperative, comfortable, no acute distress and frail appearing Nutritional Appearance: cachectic Orientation: alert, awake and oriented x3 HENMT Ears: hearing grossly normal bilaterally Resp Effort & Inspection: normal respiratory effort, able to speak in complete sentences, no audible wheezes and no cough Skin Other: mepilex pad over L elbow; intermittent scattered bruising throughout Psych Mental Status: mental status grossly normal Mood: congruent mood Insight: fair Judgment: fair Results Last Vital Signs Temp 96.4 F L 10/12/21 16:01 Pulse 77 10/12/21 16:01 Resp 18 10/12/21 16:01 BP 105/75 10/12/21 16:01 Pulse Ox 100 10/12/21 16:01 Labs Result diagrams: 10/12/21 06:26 10/12/21 06:26 Labs: Laboratory Results - last 24 hr 10/12/21 10/12/21 10/12/21 06:26 06:26 09:01 WBC 9.30 RBC 4.01 L Hgb 12.1 L Hct 38.1 L MCV 95 MCH 30.2 MCHC 31.8 L RDW 17.4 H Plt Count 224 MPV 9.6 Immature Gran % 3.1 Neutrophils % 76.7 Lymphocytes % 10.9 Monocytes % 7.7 Eosinophils % 1.4 Basophils % 0.2 Nucleated RBC % 0.0 Absolute Neutrophils 7.13 H Absolute Lymphocytes 1.01 L Absolute Monocytes 0.72 Absolute Eosinophils 0.13 Absolute Basophils 0.02 VBG Lactate 2.5 H* Sodium 136 Potassium 4.1 Chloride 106 Carbon Dioxide 25.9 Anion Gap 4.1 BUN 29 H Creatinine 0.7 Estimated GFR/1.73 m2 >= 60.00 Glucose 57 L Calcium 8.0 L Magnesium 2.1
[2021-10-12] MEDS: Hydrocortisone SOD SUC. 100 MG VIAL 50 MG IVP (18:44)
[2021-10-12 19:30] VITALS: BP 93/62; PULSE 88; RESP 16; TEMP 36.6; O2SAT 98
[2021-10-12] MEDS: Atorvastatin 10 MG TAB PO (20:24)
[2021-10-12] MEDS: Mirtazapine 15 MG TAB 7.5 MG PO (21:14)
[2021-10-12] MEDS: Docusate Sodium 100 MG CAP PO (22:43)
[2021-10-12] MEDS: Milk of Magnesia 30 ML CUP PO (22:43)
[2021-10-12 23:05] VITALS: BP 106/70; PULSE 117; RESP 17; TEMP 37.1; O2SAT 98
[2021-10-13] MEDS: Hydrocortisone SOD SUC. 100 MG VIAL 50 MG IVP (02:44)
[2021-10-13] MEDS: DEXTROSE 5%-0.9% SALINE 1,000 ML 80 ML IV (02:48)
[2021-10-13 03:05] VITALS: BP 110/70; PULSE 98; RESP 17; TEMP 36.6; O2SAT 98
[2021-10-13] MEDS: THIAMINE 500 MG in Normal Saline 100 ML 200 MG IVPB (05:07)
[2021-10-13 07:25] VITALS: BP 130/85; PULSE 78; RESP 18; TEMP 36.3; O2SAT 100
[2021-10-13] MEDS: Pantoprazole 40 MG TABCR PO (07:33)
[2021-10-13] MEDS: Sucralfate 1 GM TAB PO ×2 (07:34→11:22)
[2021-10-13 07:40] LABS: Abs Immature Grans 0.25 10^3/uL (0.0-0.06); Absolute Basophil Count 0.01 10^3/uL (0.0-0.2); Absolute Lymphocyte Count 0.44 10^3/uL (1.2-3.4); Absolute Neutrophil Count 6.62 10^3/uL (1.2-6.7); Basophils % 0.1; HCT 41.4 % (40.0-50.0); HGB 13.2 g/dL (13.5-17.5); Immature Grans % 3.3; Lymphocytes % 5.9; MCH 30.4 pg (27.0-33.0); MCHC 31.9 % (32.0-36.0); MCV 95 fL (80-95); MPV 9.2 fL (8.0-11.0); Monocytes % 2.7; Platelet Count 211 10^3/uL (130-400); RBC 4.34 10^6/uL (4.36-5.78); RDW 17.2 % (11.8-14.1); RDW-SD 60.4 fL; WBC 7.52 10^3/uL (4.4-10.8)
[2021-10-13 07:45] LABS: Lactate 2.6 mmol/L (0.6-1.4)
[2021-10-13 07:55] LABS: Anion Gap 7.4 mmol/L (3-11); BUN 26 mg/dL (7-18); CO2 21.6 mmol/L (21.0-32.0); CREATININE 0.8 mg/dL (0.70-1.30); Calcium 7.9 mg/dL (8.5-10.1); Chloride 105 mmol/L (98-107); Glucose 159 mg/dL (74-106); Magnesium 2.2 mg/dL (1.8-2.4); Potassium 4.3 mmol/L (3.5-5.1); Sodium 134 mmol/L (136-145)
[2021-10-13] MEDS: Nicotine 14 MG/24 HR PATCH TD (08:11)
[2021-10-13] MEDS: Protein Nutritional Supplement 16 GM 1 OUNCE PACKET PO (08:12)
[2021-10-13] MEDS: Multivitamin TAB 1 TAB PO (08:13)
[2021-10-13] MEDS: buPROPion-CR 150 MG TABCR PO (08:13)
[2021-10-13] MEDS: Folic Acid 1 MG TAB PO (08:13)
[2021-10-13] MEDS: HYDROcodone 10/Acetaminophen 325 TAB PO (08:13)
[2021-10-13] MEDS: Cholecalciferol (Vitamin D3) 1,000 UNIT TAB 2000 UNITS PO (08:13)
[2021-10-13] MEDS: Ferrous Sulfate 325 MG TAB PO (08:15)
[2021-10-13] MEDS: Diclofenac 1% Gel 100 GM TUBE TP ×2 (08:16→11:25)
[2021-10-13 08:39] LABS: Procalcitonin < 0.1 ng/mL
[2021-10-13] MEDS: Tiotropium/Olodaterol 10 PUFF INHALER 2 PUFF IH (08:46)
--- NOTE | 2021-10-13 10:22 | CMDISCH_ITS ---
- If Service Date Differs Date of service: 10/13/21 Time of Service: 10:23 LACE Index Scoring Tool - Questions: Length of Stay (in days): 4 - 6 Acuity (Admit via E.D.?): Yes Comorbidities: Diabetes w/o Complication, Congestive Heart Failure, Chronic Pulmonary Disease, Any Tumor, Metastatic Solid Tumor E.D. Visits: 9 - Answers: Total Score: 16 Risk of Readmission: High Risk Care Management Discharge Reason for Hospitalization: Pneumonia, weakness, S/P Fall Discharge Plan: Discharge to [facility] via facility van. Follow up with community providers including facility provider, PCP, Pulmonology and urology. Ilia will follow discharge plan of care as prescribed. Patient/Family Education Needs: Review discharge instructions, medications, limitations and plan to follow up with community providers. ask me three. Services Needed at Discharge: Intermediate Facility ([facility]), Transportation (via facility van)
[2021-10-13 11:18] VITALS: BP 149/88; PULSE 82; RESP 18; TEMP 36.4; O2SAT 100
[2021-10-13] MEDS: Enoxaparin 40 MG/0.4 ML SYR SC (11:23)
--- NOTE | 2021-10-13 11:52 | W.PM.DS.N ---
Date of service: 10/13/21 Time of Service: 11:52 DS: Diagnosis Discharge Diagnosis (1) Urinary retention: Status: Chronic Asessment and Plan: secondary to constipation, resolved now after bowel management. Cervantes has been discontinued and he is voiding well with no signs of retention. His tamsulosin was discontinued due to hypotension. This is thought to be due to possible adrenal insufficiency for which he as started on stress dose steroids. He will require a slow steroid taper and outpatient endocrine evaluation. He was also noted to have hypoglycemia thought to be associated with adrenal insufficiency also. (2) CAP (community acquired pneumonia): Status: Acute Asessment and Plan: CAP - continue cefepime and doxycycline - 5 day course needed for lungs (he will complete course with levaquin 750 mg daily which is treating his urinary tract infection) - recommend urine antigens for legionella and strep pneumo (pending at discharge) - sputum culture if able (unable to obtain) - CHARLY, RF, anti-CCP, and ANCA (pending at discharge) (3) Combined pulmonary fibrosis and emphysema (CPFE): Status: Acute Asessment and Plan: Per pulmonary consultation: This is a 71 yo man admitted for CAP who also has pulmonary nodules. The large RML infiltrate/nodule was not present on scan from April, which makes this highly unlikely to be malignant. He certainly has CPFE and likely does have COPD. This can be evaluated more thoroughly as an outpatient which my clinic is rescheduling him for. He does have some focal bronchiectasis, likely from prior infections and has been admitted to hospital recently so treatment with cefepime is likely a good choice. I would get more diagnostics surrounding the lung infection. In addition to infection, autoimmune processes and vasculitis processes can have this appearance. While in hospital we can rule these out as well. recommendations: CPFE - would change Spiriva to Stiolto - discontinue Combivent - albuterol prn (4) Urinary tract infection: Status: Acute Asessment and Plan: urine grew [place]-sensitive pseudomonas aeruginosa will complete a 14 day course of levofloxacin. Discharge Plan Disposition Patient Disposition: SNF ([facility]) [facility] Condition: Stable Discharge Details Reason For Visit: Pneumonia,Lung Mass,Generalized Weakness Admit Date/Time: 10/09/21 09:38 Admit Provider: Darrick Monroe Attending Provider: Darrick Monroe Primary Care Provider: Silvina Perdue Home Meds and New Rx's Prescriptions: New levofloxacin 750 mg tablet 750 mg PO DAILY Qty: 10 0RF prednisone 10 mg tablet See Rx Instructions .ROUTE .COMPLEX Qty: 60 0RF Rx Instructions: 20 mg daily for one week, then 15 mg daily for one week, then 10 mg daily for one week, then 5 mg daily for one week. docusate sodium [Colace] 100 mg Capsule 100 mg PO BID Qty: 0 0RF magnesium hydroxide [Milk of Magnesia] 400 mg/5 mL Suspension 30 ml PO DAILY PRN PRNQty: 0 0RF polyethylene glycol 3350 17 gram Powder In Packet 17 g PO DAILY Qty: 30 0RF Stiolto Respimat 2.5-2.5 mcg/actuation Mist 2 puff inhalation DAILY Qty: 0 0RF albuterol sulfate 90 mcg/actuation aero powdr breath act w/sensor 2 inh inhalation Q6H PRN (Reason: shortness of breath or wheezing) Qty: 1 0RF Continued sucralfate [Carafate] 100 mg/mL suspension 10 ml PO QID 0RF lidocaine 5 % cream 1 applic TP QID 0RF Rx Instructions: apply to lower back multivitamin capsule 1 cap PO DAILY 0RF mirtazapine 7.5 mg tablet 7.5 mg PO DAILY 0RF Spiriva with HandiHaler 18 mcg capsule, w/inhalation device 1 cap inhalation DAILY 0RF Rx Instructions: puncture 1 cap using device; one dose = 2 inhalations nicotine 21-14-7 mg/24 hr patch, TD daily, sequential See Rx Instructions transdermal .COMPLEX 0RF Rx Instructions: apply 1-21 mg NICOTINE PATCH daily for 28 days; follow with 1-14 mg PATCH daily for 14 days, then 1-7mg PATCH daily for 14 days transdermal Ensure Liquid PO 0RF folic acid 1 MG tablet 1 mg PO DAILY 0RF bupropion HCl (smoking deter) 150 MG tablet extended release 12 hr 150 mg PO BID 0RF aspirin [Ecotrin Low Strength] 81 MG tablet,delayed release (DR/EC) 81 mg PO DAILY 0RF atorvastatin [Lipitor] 10 MG tablet 10 mg PO HS 0RF nitroglycerin [Nitrostat] 0.4 MG tablet, sublingual 0.4 mg Sublingual . DIRECTED PRN (Reason: Chest Pain) 0RF Protocol: Nitroglycerin-Angina Condition: Angina Dose/Route: 5 mcg/min Instruction: Titrate by 5 mcg/min every 3-5 minutes Condition: No response by 20 mcg/min Dose/Route: 30 mcg/min Instruction: Titrate by 10-20 mcg/min every 3-5 minutes Protocol Text: Angina, Not responsive to sublingual nitroglycerin and beta blockers a) Dosage is affected by the type of infusion set used. When nonabsorptive tubing is used, doses must be reduced. b) Using nonabsorptive tubing, the initial dose should be 5 micrograms/minute (mcg/min). Titration should be guided by clinical response, with more caution exercised as partial response is noted. Initial titration should be in 5 mcg/min increments at intervals of 3 to 5 minutes. If no response in noted at 20 mcg/min, increments of 10 to 20 mcg/min can be used. Dosage increments should be smaller and less frequent once some hemodynamic response is observed. c) Using standard polyvinyl chloride tubing, the usual starting dose in clinical studies has been 25 micrograms/minute or more. Continuous monitoring of hemodynamic parameters MUST BE PERFORMED during titration to optimal dosing. d) Typically, maximum infusion rates are defined by 20% or greater reductions in systolic blood pressure or 10% or greater increases in heart rate over baseline values. e) However, because of the evidence of tolerance and the possibility of methemoglobinemia, ethanol intoxication, and heparin resistance with high infusion rates, infusion rates of less than 40 micrograms/minute have been recommended. [employer] (03/30/12) cholecalciferol (vitamin D3) 1,000 UNITS tablet 2,000 units PO DAILY 0RF gabapentin 300 mg capsule 300 mg PO TID 0RF Ensure Original Liquid See Rx Instructions .ROUTE .COMPLEX 0RF Rx Instructions: Drink 1 bottle 3 x daily spironolactone 25 mg tablet 25 mg PO DAILY 0RF Label Comments: TAKE ONE TABLET BY MOUTH EVERY DAY bumetanide 2 mg tablet See Rx Instructions .ROUTE .COMPLEX Qty: 20 0RF Rx Instructions: take 2 tabs in the morning (4 mg) and one tab in the afternoon (2 mg) polyethylene glycol 3350 [Miralax] 17 gram/dose powder 17 g PO BID Qty: 238 0RF pantoprazole 40 MG tablet,delayed release (DR/EC) 40 mg PO DAILY 0RF metoprolol tartrate 25 mg Tablet 12.5 mg PO BID 0RF tamsulosin 0.4 mg capsule 0.4 mg PO QHS 0RF Label Comments: TAKE ONE CAPSULE BY MOUTH EVERY EVENING ferrous sulfate [FeroSul] 325 mg (65 mg iron) tablet 325 mg PO DAILY 0RF hydrocodone-acetaminophen 10-325 mg tablet 1 tab PO TID Qty: 6 0RF Discontinued Combivent Respimat 20-100 mcg/actuation mist 2 puff IH TID 0RF tiotropium bromide 18 mcg Capsule, W/Inhalation Device 18 mcg INHALATION DAILY 0RF Discharge Instructions Additional Instructions: Your cortisol level is still pending at time of discharge. This will be reviewed with endocrinology at your follow up appointment. You have been referred there as we think you may have adrenal insufficiency that caused your low blood sugar and low blood pressure. You are being placed on a slow steroid taper with prednisione to treat that. You will get further recommendations after your appointment. you have also been voiding well since your cervantes catheter was removed. It is thought your constipation was the cause of your urine retention. please continue bowel management and monitoring to avoid further issues with retention, which also likely contributed to your urinary tract infection. You will need to complete 10 more days of antibiotics, levofloxacin, to finish your course. This antibiotic is also effective for pneumonia for which you were treated for. Stand Alone Forms: Nursing Discharge Form Referrals: ENDOCRINOLOGY,[facility] [place]] - Majo Ayala MD [ [facility] STAFF PHYSICIAN] - Activity:: Activity as Tolerated Equipment/Supplies:: No Equipment Needed Diet:: As Tolerated Discharge Orders Discharge Orders: Discharge Order (Routine); Ordered 10/13/21 Ordered By: Kassandra Esparza Discharge Data Discharge Date/Time-TO BE ENTERED AT DEPARTURE: 10/13/21 12:58 DS: Summary Time Spent with Patient providing and/or coordinating discharge services: Greater than 30 minutes Status at Discharge Functional status at discharge: uses cane/walker Overall status at discharge: patient is progressing back to baseline Mental Status: mental status grossly normal Speech and Movement: speech and movement normal Mood: congruent mood Affect: blunted Exam Const General: cooperative, comfortable, no acute distress and frail appearing Nutritional Appearance: cachectic Orientation: alert, awake and oriented x3 HENMT Head: normocephalic and atraumatic Eyes Conjunctivae: normal conjunctivae Sclera: normal sclerae Resp Effort & Inspection: normal respiratory effort and able to speak in complete sentences Auscultation: clear to auscultation bilaterally Cardio Rate: regular rate Rhythm: regular rhythm GI Inspection: other (shortened and protruding, missing ribs) Palpation: soft and nontender Auscultation: normal bowel sounds Neuro General: patient alert, patient awake and patient oriented x3 Cognition: normal cognition Speech: speech normal Extrem General: full ROM and no edema Psych Mental Status: mental status grossly normal Speech and Movement: speech and movement normal Mood: congruent mood Affect: blunted Insight: fair Judgment: fair DS: Data Vitals/I&O Vitals and I&O: Vital Signs Temperature 36.4 C L 10/13/21 11:18 Temperature Source Tympanic 10/13/21 11:18 Pulse 82 10/13/21 11:18 Pulse Rhythm Regular 10/13/21 10:37 Pulse 93 H 10/09/21 11:20 Respiratory Rate 18 10/13/21 11:18 Respiratory Effort 10/13/21 10:37 Respiratory Depth Shallow 10/13/21 10:37 Respiratory Pattern Normal 10/13/21 10:37 Blood Pressure 149/88 H 10/13/21 11:18 Blood Pressure Mean 83 10/09/21 09:45 Blood Pressure Position Supine 10/09/21 04:44 Pulse Oximetry 100 10/13/21 11:18 Oxygen Delivery Method Room Air 10/13/21 11:18 Oxygen Flow Rate 0 10/13/21 11:18 Pain Level 8 10/13/21 11:18 Comment 10/12/21 19:30 Intake & Output 10/12/21 10/12/21 10/13/21 11:59 23:59 11:59 Intake Total 630 / 2375 1745 / 2375 255 / 255 Output Total 675 / 1050 375 / 1050 675 / 675 Balance -45 / 1325 1370 / 1325 -420 / -420 Weight 42.1 kg 44.225 kg Intake: IV 150 / 1255 1105 / 1255 255 / 255 Oral 480 / 1120 640 / 1120 Output: Urine 675 / 1050 375 / 1050 675 / 675 Other: Urine Color Light Janice Straw Yellow Urine Appearance Clear Clear Clear Urine Odor Normal None Comment no sign of redness or irriatation at the meatus Stool Size Small Small Stool Characteristics Hard Hard Brown Black Voiding Methods Urinal Data Completed and Pending Labs on day of discharge: Labs from last 24 hours 10/13/21 10/13/21 10/13/21 07:35 07:35 07:35 WBC 7.52 RBC 4.34 L Hgb 13.2 L Hct 41.4 MCV 95 MCH 30.4 MCHC 31.9 L RDW 17.2 H Plt Count 211 MPV 9.2 Immature Gran % 3.3 Neutrophils % 88.0 Lymphocytes % 5.9 Monocytes % 2.7 Eosinophils % 0.0 Basophils % 0.1 Nucleated RBC % 0.0 Absolute Neutrophils 6.62 Absolute Lymphocytes 0.44 L Absolute Monocytes 0.20 Absolute Eosinophils 0.00 Absolute Basophils 0.01 VBG Lactate Sodium Potassium Chloride Carbon Dioxide Anion Gap BUN Creatinine Estimated GFR/1.73 m2 Glucose Calcium Magnesium Procalcitonin Cortisol Rheumatoid Factor Pending Cyclic Citrull Peptide Pending CHARLY Titer Pending CHARLY Titer 2 Pending CHARLY Titer 3 Pending CHARLY Interpretation Pending ANCA Immunofluorescen Pending ANCA Titer Pending ANCA Pattern Pending COVID-19 Source SARS-CoV-2 (PCR) Urine Legionella Ag Ur Strep pneumoniae Ag 10/13/21 10/13/21 10/12/21 07:35 07:35 17:00 WBC RBC Hgb Hct MCV MCH MCHC RDW Plt Count MPV Immature Gran % Neutrophils % Lymphocytes % Monocytes % Eosinophils % Basophils % Nucleated RBC % Absolute Neutrophils Absolute Lymphocytes Absolute Monocytes Absolute Eosinophils Absolute Basophils VBG Lactate 2.6 H* Sodium 134 L Potassium 4.3 Chloride 105 Carbon Dioxide 21.6 Anion Gap 7.4 BUN 26 H Creatinine 0.8 Estimated GFR/1.73 m2 >= 60.00 Glucose 159 H Calcium 7.9 L Magnesium 2.2 Procalcitonin < 0.1 Cortisol Rheumatoid Factor Cyclic Citrull Peptide CHARLY Titer CHARLY Titer 2 CHARLY Titer 3 CHARLY Interpretation ANCA Immunofluorescen ANCA Titer ANCA Pattern COVID-19 Source SARS-CoV-2 (PCR) Urine Legionella Ag Ur Strep pneumoniae Ag Pending 10/12/21 10/12/21 10/12/21 17:00 06:26 05:10 WBC RBC Hgb Hct MCV MCH MCHC RDW Plt Count MPV Immature Gran % Neutrophils % Lymphocytes % Monocytes % Eosinophils % Basophils % Nucleated RBC % Absolute Neutrophils Absolute Lymphocytes Absolute Monocytes Absolute Eosinophils Absolute Basophils VBG Lactate Sodium Potassium Chloride Carbon Dioxide Anion Gap BUN Creatinine Estimated GFR/1.73 m2 Glucose Calcium Magnesium Procalcitonin Cortisol 11 Rheumatoid Factor Cyclic Citrull Peptide CHARLY Titer CHARLY Titer 2 CHARLY Titer 3 CHARLY Interpretation ANCA Immunofluorescen ANCA Titer ANCA Pattern COVID-19 Source Nasal/Nares SARS-CoV-2 (PCR) Pending Urine Legionella Ag Pending Ur Strep pneumoniae Ag Preliminary micro results at discharge 10/10/21 19:15 Blood Culture - Preliminary Blood NO GROWTH 48 HOURS 10/10/21 19:25 Blood Culture - Preliminary Blood NO GROWTH 48 HOURS PFSH All Active Problems (Updated 10/13/21 @ 12:48 by Kassandra Esparza, DIONISIO) Urinary tract infection (Acute) Palliative care encounter (Acute) 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) DVT prophylaxis (Acute) Discharge planning issues (Acute) CAP (community acquired pneumonia) (Acute) Poor hygiene (Chronic) Fall (Acute) Altered mental status (Acute) Generalized weakness (Acute) Skin tear of left elbow without complication (Acute) Chronic obstructive lung disease (Chronic) Tricuspid regurgitation (Chronic) CAD (coronary artery disease) (Chronic) Hypertension (Chronic) Medical History (Updated 10/13/21 @ 12:48 by Kassandra Esparza, DIONISIO) Abdominal pain Abnormal radiologic findings on diagnostic imaging of renal pelvis, ureter, or bladder Acute on chronic anemia Acute on chronic diastolic (congestive) heart failure Acute on chronic systolic CHF (congestive heart failure) Adenocarcinoma of esophagus Afib Alcohol abuse Alcohol abuse, continuous drinking behavior Anemia Bilateral lower extremity edema CAD (coronary artery disease) of artery bypass graft Cerumen impaction CHF, acute on chronic Confusion state COVID-19 COVID-19 Diabetes mellitus Difficulty reading Edema Encounter for colorectal cancer screening Epididymitis, right (08/02/16) Essential hypertension Failure to thrive GERD (gastroesophageal reflux disease) GI bleed GI bleeding H/O malignant neoplasm of stomach Heart failure, left, with LVEF 41-49% History of GI bleed Hoarseness Hydrocele, right (01/23/16) Hyperlipidemia Hypokalemia Hypophosphatemia Kyphoscoliosis Low back pain Malnutrition Mild bibasilar atelectasis Pancreatitis Prediabetes Protein malnutrition Pulmonary hypertension Recent weight loss Rib fractures Shortness of breath Solitary pulmonary nodule Tinnitus, left Tobacco abuse Weight loss Surgical History cardiac cath Coronary Artery Bypass Gaft (CABG) EGD - IV Sedation Esophagectomy H/O colonoscopy (2007) H/O colonoscopy (04/14/18) dr geller, sigmoid diverticulosis, repeat 10 years History of esophagogastroduodenoscopy (EGD) (09/2017) History of hydrocelectomy History of right inguinal hernia repair repair times two sugrical flap of unhealing wound Family History Mother No problems noted. Father No problems noted. Social History Smoking/Tobacco Use Status: Current-Occasional Tobacco Type: cigarettes Smoking packs per day: 1 Smoking cigarettes per day: 20.0 Years smoked: 50 Smoking pack-years: 50.00 Smoking risk assessment performed?: Yes Alcohol Intake: current Alcohol Intake frequency: 0-2 drinks per day Alcohol type: beer Drug use: Never Substance use type: does not use What type of physical activity do you participate in: none Do you feel safe at home: Yes Do you feel safe in your relationship?: Yes
[2021-10-13 12:40] LABS: COVID-19 PCR Negative (Negative); Source Nasal/Nares
--- NOTE | 2021-10-13 17:30 | PT.INDS ---
Date of service: 10/13/21 PT Notes Visit Reasons: Pneumonia,Lung Mass,Generalized Weakness Physical Therapy Inpatient Discharge Summary Date: 10/13/2021 Dates of service: 10/09/2021 through 10/13/2021 This is a clinical summary of care provided for the duration of dates listed above. No charge was made in the completion of this documentation. Referring Doctor: Antonette Euceda NP PT Orders: PT CONSULT: Exacerbation of chronic condition Precautions: Fall. Standard. Activity as tolerated. Patient Profile/Admitting Diagnosis: Ilia is a 71-year-old male who presented to the ED on 10/09/2021 due to altered mental status, fall, generalized weakness, inability to ambulate, and abdominal discomfort.? Patient is diagnosed with encephalopathy, failure to thrive, altered mental status, generalized weakness, acute urinary retention,? and skin tear of the left elbow. PMHX: All Active Problems?(Updated 10/09/21 @ 07:48 by Tod Veloz MD) Fall (Acute) Altered mental status (Acute) Abdominal pain (Acute) Generalized weakness (Acute) Skin tear of left elbow without complication (Acute) Acute urinary retention (Acute) Constipation (Acute) Hypophosphatemia (Acute) Hypokalemia (Acute) Hypervitaminosis D (Acute) Anemia associated with acute blood loss (Acute) Failure to thrive (Acute) Encephalopathy acute (Acute) GI bleeding (Chronic) Malnutrition (Acute) Rib fractures (Acute) COVID-19 (Acute) AMS (altered mental status) (Acute) Hematoma (Acute) Neck pain (Acute) Pain, dental (Acute) Acute lymphadenitis of neck (Acute) Constipation (Acute) Bladder wall thickening (Acute) Colon wall thickening (Acute) Fatigue (Acute) Altered mental status (Acute) Shortness of breath (Acute) Abdominal pain (Acute) COVID-19 (Acute) Hypokalemia (Acute) Mild bibasilar atelectasis (Acute) Confusion state (Acute) Alcohol abuse (Chronic) Tricuspid regurgitation (Chronic) Bilateral lower extremity edema (Acute) Acute on chronic diastolic (congestive) heart failure (Acute) CAD (coronary artery disease) (Chronic) Hypertension (Chronic) Encounter for colorectal cancer screening (Acute) Hydrocele, right (Acute 01/23/16) Epididymitis, right (Acute 08/02/16) Cerumen impaction (Acute) Medical History? Abnormal radiologic findings on diagnostic imaging of renal pelvis, ureter, or bladder Acute on chronic anemia Acute on chronic systolic CHF (congestive heart failure) Adenocarcinoma of esophagus Afib Alcohol abuse, continuous drinking behavior Anemia CAD (coronary artery disease) of artery bypass graft CHF, acute on chronic Diabetes mellitus Difficulty reading Edema Essential hypertension GERD (gastroesophageal reflux disease) GI bleed H/O malignant neoplasm of stomach Heart failure, left, with LVEF 41-49% History of GI bleed Hoarseness Hyperlipidemia Kyphoscoliosis Low back pain Pancreatitis Prediabetes Protein malnutrition Pulmonary hypertension Recent weight loss Solitary pulmonary nodule Tinnitus, left Tobacco abuse Weight loss Surgical History? cardiac cath Coronary Artery Bypass Gaft (CABG) EGD - IV Sedation Esophagectomy H/O colonoscopy (2007) H/O colonoscopy (04/14/18) Dr geller, sigmoid diverticulosis, repeat 10 yearsHistory of esophagogastroduodenoscopy (EGD) (09/2017) History of hydrocelectomy History of right inguinal hernia repair repair times two sugrical flap of unhealing wound Social History/Home Situation: Lives with a roommate in a private home with 4 steps to enter.? Uses single-point cane at baseline. Equipment Owned/DME: SPC Subjective: NT. See most recent PROOFSHEET CORRECTOR notes. Objective: General Observation: NT. See most recent PROOFSHEET CORRECTOR notes. Mental Status: NT. See most recent PROOFSHEET CORRECTOR notes. Pain: NT. See most recent PROOFSHEET CORRECTOR notes. ROM: Right Upper Extremity: ? Shoulder Flexion WFL. Shoulder abduction WFL. Elbow flexion WFL. Wrist flexion WFL. Functional opening and closing of hand WFL. Left Upper Extremity:? Shoulder Flexion WFL. Shoulder abduction WFL. Elbow flexion WFL. Wrist flexion WFL. Functional opening and closing of hand WFL. Right Lower Extremity: Hip flexion WFL. Hip abduction WFL. Knee flexion WFL. Ankle dorsiflexion WFL. Ankle plantarflexion WFL. Left Lower Extremity: Hip flexion WFL. Hip abduction WFL. Knee flexion WFL. Ankle dorsiflexion WFL. Ankle plantarflexion WFL. Strength: Right Upper Extremity: Shoulder flexors 3+/5. Shoulder abductors 3+/5. Elbow flexors 3+/5. Elbow extensors 3+/5. [employer] strong. Left Upper Extremity: Shoulder flexors 3+/5. Shoulder abductors 3+/5. Elbow flexors 3+/5. Elbow extensors 3+/5. [employer] strong. Right Lower Extremity: Hip flexors 3+/5. Hip abductors 3+/5. Knee flexors 3+/5. Knee extensors 3+/5. Ankle dorsiflexors 3+/5. Ankle plantarflexors 3+/5. Left Lower Extremity: Hip flexors 3+/5. Hip abductors 3+/5. Knee flexors 3+/5. Knee extensors 3+/5. Ankle dorsiflexors 3+/5. Ankle plantarflexors 3+/5. Bed Mobility/Transfers: Supine to sit with contact-guard assist Sit to stand with contact-guard assist Stand to sit with contact-guard assist Bed to reclining chair with contact-guard assist Gait: 15 feet requiring minimal assist. Glenys decreased. Step height decreased. Step length decreased. Balance: Static Sitting: Fair Dynamic Sitting: Fair Static Standing: Fair Dynamic Standing: Fair Assessment: Ilia demonstrates significant functional mobility decline requiring the assistance of 1 person the use of a front wheeled walker for all mobility ADL performance.? Patient presents with clinical signs and symptoms consistent with current/admitting diagnoses that have resulted to mobility limitations, gait instability, generalized weakness, and overall ADL decline as demonstrated by the following impairment level findings: 1.? Decreased strength to B UE/LE major muscle groups 2.? Impaired sitting/standing balance 3.? Impaired activity tolerance 4.? Fatigue Impairments are contributing to the following functional limitations: 1.? Decline in bed mobility skills 2.? Decline in transfer skills 3.? Difficulty with ambulation without assistive device and physical assistance 4.? Increased completion time for mobility ADL performance 5.? Increased risk for falls 6.? Difficulty with managing steps alone safely Goals: Goals X1 week 1. Supine-Sit independent NOT MET 2. Sit-Supine independent NOT MET 3. Sit-Stand independent NOT MET 4. Stand-Sit independent with SPC NOT MET 5. Bed-Chair independent with SPC NOT MET 6. Chair-Bed independent with SPC NOT MET 7. Independent gait on level surface with use of SPC for at least 300 feet without report of pain nor dyspnea NOT MET 8. Independent stair negotiation while holding onto 1rail for at least 5 steps without report of pain nor dyspnea NOT MET 9. Independent with home exercise program NOT MET 10. Good static and dynamic standing balance/tolerance NOT MET DISCHARGE RECOMMENDATIONS: Patient will benefit from senior care facility placement for continued skilled physical therapy services in order to progress mobility level, strength, and balance in preparation for a safe discharge to home. TREATMENT CODE/TIME: OR Thank you for the opportunity to participate in the care of this patient. Savanna Banks PT, DPT, CLT [facility] [place], [place]
[2021-10-13 18:31] LABS: Rheumatoid Factor <8.6 IU/mL (<12.0)
[2021-10-13 20:14] LABS: Legionella Ag Detection Urine Negative (Negative)
[2021-10-14 09:44] LABS: Cyclic Citrullinated Peptide <2.5 U/mL (<5.0)
[2021-10-14 15:27] LABS: ANCA Interpretation Negative (Negative)
[2021-10-14 15:34] LABS: ANA Interpretation Positive (Negative); ANA Titer Pattern 1:640 Homogeneous
[2021-10-14 22:27] LABS: Streptococcus Pneumoniae Ag, U Negative (Negative)
== END 2021-10-13 12:58 | disposition skilled nursing facility (03) | DRG 194 ==
LOC: ER 10:03 → MS 11:26
PROVIDERS: Internal Medicine; Nurse Practitioner Family; Student in an Organized Health Care Education/Training Program; Admitting Provider Internal Medicine; Emergency Provider Emergency Medicine; PCP Family Medicine; Visit Provider Internal Medicine
DX: J18.9 Pneumonia, unspecified organism (principal); J44.0 Chronic obstructive pulmonary disease with (acute) lower respiratory infection; Z68.1 Body mass index [BMI] 19.9 or less, adult; I50.32 Chronic diastolic (congestive) heart failure; E27.40 Unspecified adrenocortical insufficiency; R64 Cachexia; R41.82 Altered mental status, unspecified; W19.XXXA Unspecified fall, initial encounter; S51.012A Laceration without foreign body of left elbow, initial encounter; I25.10 Atherosclerotic heart disease of native coronary artery without angina pectoris; I48.91 Unspecified atrial fibrillation; R33.9 Retention of urine, unspecified; K59.00 Constipation, unspecified; R62.7 Adult failure to thrive; Z86.16 Personal history of COVID-19; F10.10 Alcohol abuse, uncomplicated; I07.1 Rheumatic tricuspid insufficiency; R60.0 Localized edema; I11.0 Hypertensive heart disease with heart failure; D64.9 Anemia, unspecified; E11.9 Type 2 diabetes mellitus without complications; K21.9 Gastro-esophageal reflux disease without esophagitis; E78.5 Hyperlipidemia, unspecified; M54.50 Low back pain, unspecified; Z85.028 Personal history of other malignant neoplasm of stomach; Z85.01 Personal history of malignant neoplasm of esophagus; I27.20 Pulmonary hypertension, unspecified; Z95.1 Presence of aortocoronary bypass graft; F17.210 Nicotine dependence, cigarettes, uncomplicated; R29.6 Repeated falls; Z91.81 History of falling; R91.8 Other nonspecific abnormal finding of lung field; R10.9 Unspecified abdominal pain; J84.10 Pulmonary fibrosis, unspecified; Z90.49 Acquired absence of other specified parts of digestive tract; I95.9 Hypotension, unspecified
CPT/HCPCS: 36415; 71250; 80048; 80053; 82533; 83690; 84145; 86200; 86255; 87040; 87077; 87449; 87635; 94640; 96361; 96365; 96367; 97162; 97530; 99223; 99285; J1650; 70450; 74176; 81003; 81015; 82140; 83605; 83735; 84443; 84484; 85025; 86038; 86431; 87086; 87186; 87899; 99222; 99232; 99239; J0696; J1720; J3490; J7042

== ENCOUNTER → 2021-10-12 14:26 | Outpatient (BNVA) | payer MEDICARE, MEDICAID, SELFPAY | PROVIDERS: PCP Family Medicine; Referring Provider Family Medicine; Visit Provider Urology | DX: R69 Illness, unspecified (principal) ==

== ENCOUNTER 2021-11-04 21:08 | Emergency (ER) | payer MEDICARE, MEDICAID, SELFPAY ==
[2021-11-04 21:08] VITALS: BP 112/81; PULSE 88; RESP 16; TEMP 36.7; O2SAT 100
--- NOTE | 2021-11-04 21:56 | W.ED.GENAD ---
Discharge Plan Disposition Patient Disposition: SNF (LEVEL 1) [facility] Condition: Stable Discharge Details Clinical Impression: Laceration of right lower leg Primary Care Provider: Silvina Perdue ED Provider: Tod Veloz Home Meds and New Rx's Prescriptions: Continued sucralfate [Carafate] 100 mg/mL suspension 10 ml PO QID lidocaine 5 % cream 1 applic TP QID Rx Instructions: apply to lower back multivitamin capsule 1 cap PO DAILY mirtazapine 7.5 mg tablet 7.5 mg PO HS Spiriva with HandiHaler 18 mcg capsule, w/inhalation device 1 cap inhalation DAILY Rx Instructions: puncture 1 cap using device; one dose = 2 inhalations nicotine 21-14-7 mg/24 hr patch, TD daily, sequential See Rx Instructions transdermal .COMPLEX Rx Instructions: apply 1-21 mg NICOTINE PATCH daily for 28 days; follow with 1-14 mg PATCH daily for 14 days, then 1-7mg PATCH daily for 14 days transdermal Ensure Liquid 120 ml PO TID folic acid 1 MG tablet 1 mg PO DAILY bupropion HCl (smoking deter) 150 MG tablet extended release 12 hr 150 mg PO BID aspirin [Ecotrin Low Strength] 81 MG tablet,delayed release (DR/EC) 81 mg PO DAILY atorvastatin [Lipitor] 10 MG tablet 10 mg PO HS nitroglycerin [Nitrostat] 0.4 MG tablet, sublingual 0.4 mg Sublingual . DIRECTED PRN (Reason: Chest Pain) Protocol: Nitroglycerin-Angina Condition: Angina Dose/Route: 5 mcg/min Instruction: Titrate by 5 mcg/min every 3-5 minutes Condition: No response by 20 mcg/min Dose/Route: 30 mcg/min Instruction: Titrate by 10-20 mcg/min every 3-5 minutes Protocol Text: Angina, Not responsive to sublingual nitroglycerin and beta blockers a) Dosage is affected by the type of infusion set used. When nonabsorptive tubing is used, doses must be reduced. b) Using nonabsorptive tubing, the initial dose should be 5 micrograms/minute (mcg/min). Titration should be guided by clinical response, with more caution exercised as partial response is noted. Initial titration should be in 5 mcg/min increments at intervals of 3 to 5 minutes. If no response in noted at 20 mcg/min, increments of 10 to 20 mcg/min can be used. Dosage increments should be smaller and less frequent once some hemodynamic response is observed. c) Using standard polyvinyl chloride tubing, the usual starting dose in clinical studies has been 25 micrograms/minute or more. Continuous monitoring of hemodynamic parameters MUST BE PERFORMED during titration to optimal dosing. d) Typically, maximum infusion rates are defined by 20% or greater reductions in systolic blood pressure or 10% or greater increases in heart rate over baseline values. e) However, because of the evidence of tolerance and the possibility of methemoglobinemia, ethanol intoxication, and heparin resistance with high infusion rates, infusion rates of less than 40 micrograms/minute have been recommended. Source-[employer] (03/30/12) cholecalciferol (vitamin D3) 1,000 UNITS tablet 2,000 units PO DAILY gabapentin 300 mg capsule 300 mg PO TID Ensure Original Liquid See Rx Instructions .ROUTE .COMPLEX Label Comments: not on MAR Rx Instructions: Drink 1 bottle 3 x daily spironolactone 25 mg tablet 25 mg PO DAILY Label Comments: TAKE ONE TABLET BY MOUTH EVERY DAY bumetanide 2 mg tablet See Rx Instructions .ROUTE .COMPLEX Qty: 20 0RF Rx Instructions: take 2 tabs in the morning (4 mg) and one tab in the afternoon (2 mg) polyethylene glycol 3350 [Miralax] 17 gram/dose powder 17 g PO BID Qty: 238 0RF pantoprazole 40 MG tablet,delayed release (DR/EC) 40 mg PO DAILY metoprolol tartrate 25 mg Tablet 25 mg PO BID tamsulosin 0.4 mg capsule 0.4 mg PO QHS Label Comments: TAKE ONE CAPSULE BY MOUTH EVERY EVENING ferrous sulfate [FeroSul] 325 mg (65 mg iron) tablet 325 mg PO DAILY levofloxacin 750 mg tablet 750 mg PO DAILY Qty: 10 0RF Label Comments: not on MAR prednisone 10 mg tablet See Rx Instructions .ROUTE .COMPLEX Qty: 60 0RF Rx Instructions: 20 mg daily for one week, then 15 mg daily for one week, then 10 mg daily for one week, then 5 mg daily for one week. docusate sodium [Colace] 100 mg Capsule 100 mg PO BID Qty: 0 0RF magnesium hydroxide [Milk of Magnesia] 400 mg/5 mL Suspension 30 ml PO DAILY PRN PRNQty: 0 0RF polyethylene glycol 3350 17 gram Powder In Packet 17 g PO DAILY Qty: 30 0RF hydrocodone-acetaminophen 10-325 mg tablet 1 tab PO TID Qty: 6 0RF Stiolto Respimat 2.5-2.5 mcg/actuation Mist 2 puff inhalation DAILY Qty: 0 0RF albuterol sulfate 90 mcg/actuation aero powdr breath act w/sensor 2 inh inhalation Q6H PRN (Reason: shortness of breath or wheezing) Qty: 1 0RF Discharge Instructions Instructions: Laceration (ED), Fall Prevention for Older Adults (ED) Additional Instructions: Please keep wound dressing intact for the next 2 days. Change sterile dressing daily thereafter and monitor wound for signs infection including increased redness, swelling, discharge or pain. Wound should be reassessed for suture removal in 12 days. Referrals: Silvina Perdue MD [Primary Care Provider] - Medical Decision Making 71-year-old male here with laceration to his right lower extremity. Tetanus up-to-date as of 2019. Wound was irrigated with copious sterile saline and primary closure performed. Please see procedure note. No complications. Sterile dressing applied. Usual customary discharge instructions were provided. HPI General Mode of arrival: ambulatory. Date/Time Provider Initiated Documentation: 11/04/21 21:12. Limitations to Documentation: no limitations. Information obtained by: patient. HPI Narrative: 71-year-old male presents from group home with laceration to his right lower leg. Patient notes he was transitioning into his wheelchair and slipped and cut his leg. This occurred just prior to arrival. Wound was initially bleeding. Bleeding is stopped. Wound is deep. No modifiers. No other injury. No associated numbness or tingling. Related Data Home Medications Medication Instructions Recorded Confirmed bupropion HCl (smoking deter) 150 150 mg PO BID 08/04/12 11/04/21 mg tablet,12 hr sustained-release(smoking deterrent) folic acid 1 mg tablet 1 mg PO DAILY 08/04/12 11/04/21 aspirin 81 mg tablet,delayed 81 mg PO DAILY 04/09/13 11/04/21 release (Ecotrin Low Strength) atorvastatin 10 mg tablet (Lipitor) 10 mg PO HS 01/25/15 11/04/21 cholecalciferol (vitamin D3) 25 2,000 units PO DAILY 04/12/16 11/04/21 mcg (1,000 unit) tablet nitroglycerin 0.4 mg sublingual 0.4 mg sublingual . DIRECTED PRN 04/12/16 11/04/21 tablet (Nitrostat) Chest Pain pantoprazole 40 mg tablet,delayed 40 mg PO DAILY 01/15/17 11/04/21 release lidocaine 5 % topical cream 1 applic topical QID 02/10/18 11/04/21 multivitamin 1 cap PO DAILY 02/10/18 11/04/21 sucralfate 100 mg/mL oral 10 ml PO QID 02/10/18 11/04/21 suspension (Carafate) metoprolol tartrate 25 mg tablet 25 mg PO BID 04/12/18 11/04/21 food supplemt, lactose-reduced See Rx Instructions .Route .COMPLEX 01/15/20 10/09/21 (Ensure Original oral liquid) gabapentin 300 mg capsule 300 mg PO TID 01/15/20 11/04/21 spironolactone 25 mg tablet 25 mg PO DAILY 07/10/20 11/04/21 ferrous sulfate 325 mg (65 mg 325 mg PO DAILY 03/05/21 11/04/21 iron) tablet (FeroSul) tamsulosin 0.4 mg capsule 0.4 mg PO QHS 03/05/21 11/04/21 bumetanide 2 mg tablet See Rx Instructions .Route 06/24/21 11/04/21 .COMPLEX #20 tabs polyethylene glycol 3350 17 17 g PO BID #238 grams 09/17/21 11/04/21 gram/dose oral powder (Miralax) food supplemt, lactose-reduced 120 ml PO TID 09/21/21 11/04/21 (Ensure oral liquid) mirtazapine 7.5 mg tablet 7.5 mg PO HS 09/21/21 11/04/21 nicotine See Rx Instructions transdermal 09/21/21 11/04/21 21mg/24hr-14mg/24hr-7mg/24hr daily .COMPLEX transderm patches,sequentl tiotropium bromide 18 mcg capsule 1 cap inhalation DAILY 09/21/21 11/04/21 with inhalation device (Spiriva with HandiHaler) albuterol sulfate 90 mcg/actuation 2 inh inhalation Q6H PRN shortness 10/13/21 11/04/21 breath activated powder of breath or wheezing #1 ea inhaler,sensor docusate sodium 100 mg capsule 100 mg PO BID #0 caps 10/13/21 11/04/21 (Colace) hydrocodone 10 mg-acetaminophen 1 tab PO TID #6 tabs 10/13/21 11/04/21 325 mg tablet levofloxacin 750 mg tablet 750 mg PO DAILY #10 tabs 10/13/21 magnesium hydroxide 400 mg/5 mL 30 ml PO DAILY PRN PRN #0 mL 10/13/21 11/04/21 oral suspension (Milk of Magnesia) polyethylene glycol 3350 17 gram 17 g PO DAILY #30 ea 10/13/21 11/04/21 oral powder packet prednisone 10 mg tablet See Rx Instructions .Route 10/13/21 11/04/21 .COMPLEX #60 tabs tiotropium 2.5 mcg-olodaterol 2.5 2 puff inhalation DAILY #0 grams 10/13/21 11/04/21 mcg/actuation mist for inhalation (Stiolto Respimat) Previous Rx's Medication Instructions Recorded bumetanide 2 mg tablet See Rx Instructions .Route 06/24/21 .COMPLEX #20 tabs polyethylene glycol 3350 17 17 g PO BID #238 grams 09/17/21 gram/dose oral powder (Miralax) albuterol sulfate 90 mcg/actuation 2 inh inhalation Q6H PRN shortness 10/13/21 breath activated powder of breath or wheezing #1 ea inhaler,sensor docusate sodium 100 mg capsule 100 mg PO BID #0 caps 10/13/21 (Colace) hydrocodone 10 mg-acetaminophen 1 tab PO TID #6 tabs 10/13/21 325 mg tablet levofloxacin 750 mg tablet 750 mg PO DAILY #10 tabs 10/13/21 magnesium hydroxide 400 mg/5 mL 30 ml PO DAILY PRN PRN #0 mL 10/13/21 oral suspension (Milk of Magnesia) polyethylene glycol 3350 17 gram 17 g PO DAILY #30 ea 10/13/21 oral powder packet prednisone 10 mg tablet See Rx Instructions .Route 10/13/21 .COMPLEX #60 tabs tiotropium 2.5 mcg-olodaterol 2.5 2 puff inhalation DAILY #0 grams 10/13/21 mcg/actuation mist for inhalation (Stiolto Respimat) Allergies Allergy/AdvReac Type Severity Reaction Status Date / Time No Known Allergies Allergy Verified 11/04/21 21:28 General Stated Complaint: Laceration ANAMIKA: 4 Review of Systems Integumentary/Breasts Skin/Breast: Reports as per HPI Neurologic Neurologic: Reports as per HPI PFSH All Active Problems Laceration of right lower leg (Acute) Urinary tract infection (Acute) 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) CAP (community acquired pneumonia) (Acute) Generalized weakness (Acute) Skin tear of left elbow without complication (Acute) Chronic obstructive lung disease (Chronic) Tricuspid regurgitation (Chronic) CAD (coronary artery disease) (Chronic) Hypertension (Chronic) Medical History Abdominal pain Abnormal radiologic findings on diagnostic imaging of renal pelvis, ureter, or bladder Acute on chronic anemia Acute on chronic diastolic (congestive) heart failure Acute on chronic systolic CHF (congestive heart failure) Adenocarcinoma of esophagus Afib Alcohol abuse Alcohol abuse, continuous drinking behavior Anemia Bilateral lower extremity edema CAD (coronary artery disease) of artery bypass graft Cerumen impaction CHF, acute on chronic Confusion state COVID-19 COVID-19 Diabetes mellitus Difficulty reading Edema Encounter for colorectal cancer screening Epididymitis, right (08/02/16) Essential hypertension Failure to thrive Fall GERD (gastroesophageal reflux disease) GI bleed GI bleeding H/O malignant neoplasm of stomach Heart failure, left, with LVEF 41-49% History of GI bleed Hoarseness Hydrocele, right (01/23/16) Hyperlipidemia Hypokalemia Hypophosphatemia Kyphoscoliosis Low back pain Malnutrition Mild bibasilar atelectasis Pancreatitis Poor hygiene Prediabetes Protein malnutrition Pulmonary hypertension Recent weight loss Rib fractures Shortness of breath Solitary pulmonary nodule Tinnitus, left Tobacco abuse Weight loss Surgical History cardiac cath Coronary Artery Bypass Gaft (CABG) EGD - IV Sedation Esophagectomy H/O colonoscopy (2007) H/O colonoscopy (04/14/18) dr geller, sigmoid diverticulosis, repeat 10 years History of esophagogastroduodenoscopy (EGD) (09/2017) History of hydrocelectomy History of right inguinal hernia repair repair times two sugrical flap of unhealing wound Family History Mother No problems noted. Father No problems noted. Social History Smoking/Tobacco Use Status: Current-Occasional Tobacco Type: cigarettes Smoking packs per day: 1 Smoking cigarettes per day: 20.0 Years smoked: 50 Smoking pack-years: 50.00 Smoking risk assessment performed?: Yes Alcohol Intake: current Alcohol Intake frequency: 0-2 drinks per day Alcohol type: beer Drug use: Never Substance use type: does not use What type of physical activity do you participate in: none Do you feel safe at home: Yes Do you feel safe in your relationship?: Yes Exam Const General: cooperative and no acute distress HENMT Head: atraumatic GI Palpation: soft, not firm, no guarding, no masses, not rigid and nontender Skin Trauma: laceration (6cm, Right lower leg, flap, deep into subcutaneous tissue) Extrem General: no edema Right lower extremity: edema (Trace bilateral) and lower leg (Laceration as above) Course Vital Signs Vital signs: Vital Signs Temperature 36.7 C 11/04/21 21:08 Pulse 88 11/04/21 21:08 Respiratory Rate 16 11/04/21 21:08 Blood Pressure 112/81 11/04/21 21:08 Pulse Oximetry 100 11/04/21 21:08 Temperature 36.7 C 11/04/21 21:08 Temperature Source Skin 11/04/21 21:08 Pulse 88 11/04/21 21:08 Respiratory Rate 16 11/04/21 21:08 Respiratory Effort 11/04/21 21:24 Blood Pressure 112/81 11/04/21 21:08 Pulse Oximetry 100 11/04/21 21:08 Oxygen Delivery Method Room Air 11/04/21 21:08 Oxygen Flow Rate 0 11/04/21 21:08 Pain Level 6 11/04/21 21:22 Procedures Laceration Laceration 1: Site: lower extremity Side (If applicable): right Size (cm): 6 Description: flap Depth: simple, single layer Local Anesthetic: Lidocaine 2% and with Epi Amount of anesthesia used (mL): 6 Pre-repair: wound explored, irrigated extensively and deep structures intact Skin layer closed with: nylon Size (cm): 4-0 Number of sutures: 10 Technique: simple, interrupted
== END 2021-11-04 23:07 | disposition skilled nursing facility (03) ==
PROVIDERS: Emergency Provider Student in an Organized Health Care Education/Training Program; PCP Family Medicine
DX: S81.811A Laceration without foreign body, right lower leg, initial encounter (principal); W26.8XXA Contact with other sharp object(s), not elsewhere classified, initial encounter
CPT/HCPCS: 12002

== ENCOUNTER → 2021-11-05 01:33 | Outpatient (CLI) | payer MEDICARE, MEDICAID, SELFPAY ==
--- NOTE | 2021-11-05 09:10 | DI.RAD_ITS ---
Exam(s) XR CHEST 2V PA LATERAL EXAM: XR CHEST 2V PA LATERAL CLINICAL HISTORY: SOB, HYPOXIA. TECHNIQUE: 2D digital imaging was performed. COMPARISON: CR XR PORTABLE CHEST AP from 09/07/[address] CHEST/ABD/PEL WO from 10/09/2021 FINDINGS: 2 views: Sternotomy wires are again noted. Heart size upper normal mediastinum is not widened. COPD findings again noted. Some infiltrate in the lateral aspect of the right upper lobe is again no shannan, as seen on prior CT scan. Also some infiltrate in the lateral aspect of the right middle lobe a nd right lower lobe and there is now a small right pleural effusion, not previously present. Elevated left hemidiaphragm again noted. Patchy infiltrate in the left lung base again noted. IMPRESSION: Persistent bilateral lung findings as described above. COPD. If clinically indicated follow-up CT s can can be performed to compared to the CT scanperformed 10/09/2021. DATA REPOSITORY: RADIATION DOSE DELIVERED:
== END ==
PROVIDERS: PCP Family Medicine; Visit Provider Nurse Practitioner Family
DX: R06.02 Shortness of breath (principal); R09.02 Hypoxemia; J44.9 Chronic obstructive pulmonary disease, unspecified; J90 Pleural effusion, not elsewhere classified; R91.8 Other nonspecific abnormal finding of lung field
CPT/HCPCS: 71046

== ENCOUNTER 2021-11-11 17:08 | Outpatient (REF) | payer SELFPAY ==
[2021-11-11 17:32] LABS: Abs Immature Grans 0.11 10^3/uL (0.0-0.06); Absolute Basophil Count 0.03 10^3/uL (0.0-0.2); Absolute Eosinophil Count 0.19 10^3/uL (0.0-0.7); Absolute Lymphocyte Count 1.84 10^3/uL (1.2-3.4); Absolute Monocyte Count 0.83 10^3/uL (0.1-0.8); Absolute Neutrophil Count 4.43 10^3/uL (1.2-6.7); Basophils % 0.4; Eosinophils % 2.6; HCT 35.9 % (40.0-50.0); HGB 11.3 g/dL (13.5-17.5); Immature Grans % 1.5; Lymphocytes % 24.8; MCH 31.7 pg (27.0-33.0); MCHC 31.5 % (32.0-36.0); MCV 101 fL (80-95); MPV 9.8 fL (8.0-11.0); Monocytes % 11.2; Neutrophils % 59.5; Platelet Count 246 10^3/uL (130-400); RBC 3.56 10^6/uL (4.36-5.78); RDW 17.8 % (11.8-14.1); RDW-SD 66.3 fL; WBC 7.43 10^3/uL (4.4-10.8)
== END 2021-11-11 17:09 | disposition home or self-care (01) ==
LOC: LBN 17:08
PROVIDERS: PCP Family Medicine; Visit Provider Nurse Practitioner Family
DX: E16.2 Hypoglycemia, unspecified (principal); E27.40 Unspecified adrenocortical insufficiency; E78.5 Hyperlipidemia, unspecified; D63.8 Anemia in other chronic diseases classified elsewhere
CPT/HCPCS: 80048; 83735; 83880; 85025

== ENCOUNTER 2021-11-12 17:17 | Outpatient (REF) | payer MEDICARE, MEDICAID, SELFPAY ==
[2021-11-12 18:07] LABS: Abs Immature Grans 0.08 10^3/uL (0.0-0.06); Absolute Basophil Count 0.03 10^3/uL (0.0-0.2); Absolute Eosinophil Count 0.16 10^3/uL (0.0-0.7); Absolute Monocyte Count 0.92 10^3/uL (0.1-0.8); Absolute Neutrophil Count 4.83 10^3/uL (1.2-6.7); Basophils % 0.4; Eosinophils % 2.1; HCT 35.2 % (40.0-50.0); Immature Grans % 1.1; Lymphocytes % 19.9; MCH 31.6 pg (27.0-33.0); MCHC 31.3 % (32.0-36.0); MCV 101 fL (80-95); MPV 9.5 fL (8.0-11.0); Monocytes % 12.2; Neutrophils % 64.3; Platelet Count 225 10^3/uL (130-400); RBC 3.48 10^6/uL (4.36-5.78); RDW 17.9 % (11.8-14.1); RDW-SD 66.2 fL; WBC 7.52 10^3/uL (4.4-10.8)
[2021-11-12 18:40] LABS: Anion Gap 8.4 mmol/L (3-11); BUN 59 mg/dL (7-18); CO2 26.6 mmol/L (21.0-32.0); CREATININE 1.1 mg/dL (0.70-1.30); Calcium 8.9 mg/dL (8.5-10.1); Chloride 103 mmol/L (98-107); Glucose 82 mg/dL (74-106); Magnesium 2.5 mg/dL (1.8-2.4); NT-proBNP 8838 pg/mL (<300); Potassium 4.8 mmol/L (3.5-5.1); Sodium 138 mmol/L (136-145)
== END 2021-11-12 17:18 | disposition home or self-care (01) ==
LOC: LBN 17:17
PROVIDERS: PCP Family Medicine; Visit Provider Nurse Practitioner Family
DX: R60.0 Localized edema (principal); E78.5 Hyperlipidemia, unspecified; R06.02 Shortness of breath
CPT/HCPCS: 80048; 83735; 83880; 85025

== ENCOUNTER → 2021-12-10 02:12 | Outpatient (CLI) | payer MEDICARE, MEDICAID, SELFPAY | PROVIDERS: PCP Family Medicine; Visit Provider Student in an Organized Health Care Education/Training Program ==

== ENCOUNTER 2022-01-26 15:42 | Emergency (ER) | payer MEDICARE, MEDICAID, SELFPAY ==
[2022-01-26 16:07] VITALS: BP 141/82; PULSE 99; RESP 17; TEMP 36.9; O2SAT 96
[2022-01-26 16:52] VITALS: RESP 16
--- NOTE | 2022-01-26 20:00 | RT.EKG_ITS ---
APPROVED REPORT Exam: Resting ECG Reason for Exam: LE EDEMA Patient Location: E HR:86 bpm ECG Measurements Heart Rate 86 AXIS NH [id number] P [id number] QRSd 72 QRS 104 QT 355 T 56 QTc 425 Conclusion Atrial fibrillation...V-rate 82-114, Anteroseptal Q >35mS, T neg, V1-V2
--- NOTE | 2022-01-26 20:00 | DI.RAD_ITS ---
Exam(s) XR PORTABLE CHEST AP EXAM: XR PORTABLE CHEST AP CLINICAL HISTORY: LE Edema. TECHNIQUE: 2D digital imaging was performed. COMPARISON: CR XR CHEST 2V PA LATERAL from 11/05/2021 FINDINGS: Single AP portable view. Sternotomy wires again noted. Heart size is upper normal. The mediastinum is not widened. There is infiltrate in the right upper lobe, more so than previous. Also some persistent infiltrate in the left lower lobe posterior basal segment. No pulmonary edema. No pleural effusions. No pneum othorax. IMPRESSION: Right upper lobe infiltrate. Left lower lobe infiltrate. No obvious pleural effusions. No pulmonar y edema. DATA REPOSITORY: RADIATION DOSE DELIVERED: All CT scans at this facility use at least one of these dose optimization techniques: automated exposure control; mA and/or kV adjustment per patient size (includes targeted e xams where dose is matched to clinical indication); or iterative reconstruction.
[2022-01-26 20:02] VITALS: BP 147/95; PULSE 100; RESP 18; TEMP 36.8; O2SAT 96
--- NOTE | 2022-01-26 20:04 | ED.GENADUL_ITS ---
Discharge Plan Disposition Patient Disposition: HOME Condition: Improving Discharge Details Clinical Impression: Chronic obstructive lung disease, Bronchitis, Edema, peripheral Primary Care Provider: Silvina Perdue ED Provider: Gregor Broderick Home Meds and New Rx's Prescriptions: New furosemide [Lasix] 40 mg tablet 40 mg PO DAILY 14 Days Qty: 14 0RF doxycycline hyclate 100 mg capsule 100 mg PO BID 10 Days Qty: 20 0RF Continued sucralfate [Carafate] 100 mg/mL suspension 10 ml PO QID lidocaine 5 % cream 1 applic TP QID Rx Instructions: apply to lower back multivitamin capsule 1 cap PO DAILY albuterol sulfate [Ventolin HFA] 90 mcg/actuation HFA aerosol inhaler 2 puff inhalation Q8H PRN mirtazapine 7.5 mg tablet 7.5 mg PO HS nicotine 21-14-7 mg/24 hr patch, TD daily, sequential See Rx Instructions transdermal .COMPLEX Rx Instructions: apply 1-21 mg NICOTINE PATCH daily for 28 days; follow with 1-14 mg PATCH daily for 14 days, then 1-7mg PATCH daily for 14 days transdermal folic acid 1 MG tablet 1 mg PO DAILY bupropion HCl (smoking deter) 150 MG tablet extended release 12 hr 150 mg PO BID aspirin [Ecotrin Low Strength] 81 MG tablet,delayed release (DR/EC) 81 mg PO DAILY atorvastatin [Lipitor] 10 MG tablet 10 mg PO HS nitroglycerin [Nitrostat] 0.4 MG tablet, sublingual 0.4 mg Sublingual . DIRECTED PRN (Reason: Chest Pain) Protocol: Nitroglycerin-Angina Condition: Angina Dose/Route: 5 mcg/min Instruction: Titrate by 5 mcg/min every 3-5 minutes Condition: No response by 20 mcg/min Dose/Route: 30 mcg/min Instruction: Titrate by 10-20 mcg/min every 3-5 minutes Protocol Text: Angina, Not responsive to sublingual nitroglycerin and beta blockers a) Dosage is affected by the type of infusion set used. When nonabsorptive tubing is used, doses must be reduced. b) Using nonabsorptive tubing, the initial dose should be 5 micrograms/minute (mcg/min). Titration should be guided by clinical response, with more caution exercised as partial response is noted. Initial titration should be in 5 mcg/min increments at intervals of 3 to 5 minutes. If no response in noted at 20 mcg/min, increments of 10 to 20 mcg/min can be used. Dosage increments should be smaller and less frequent once some hemodynamic response is observed. c) Using standard polyvinyl chloride tubing, the usual starting dose in clinical studies has been 25 micrograms/minute or more. Continuous monitoring of hemodynamic parameters MUST BE PERFORMED during titration to optimal dosing. d) Typically, maximum infusion rates are defined by 20% or greater reductions in systolic blood pressure or 10% or greater increases in heart rate over baseline values. e) However, because of the evidence of tolerance and the possibility of methemoglobinemia, ethanol intoxication, and heparin resistance with high infusion rates, infusion rates of less than 40 micrograms/minute have been recommended. Source-Reimageedex (03/30/12) cholecalciferol (vitamin D3) 1,000 UNITS tablet 2,000 units PO DAILY gabapentin 300 mg capsule 300 mg PO TID spironolactone 25 mg tablet 25 mg PO DAILY Label Comments: TAKE ONE TABLET BY MOUTH EVERY DAY polyethylene glycol 3350 [Miralax] 17 gram/dose powder 17 g PO BID Qty: 238 0RF pantoprazole 40 MG tablet,delayed release (DR/EC) 40 mg PO DAILY metoprolol tartrate 25 mg Tablet 25 mg PO BID tamsulosin 0.4 mg capsule 0.4 mg PO QHS Label Comments: TAKE ONE CAPSULE BY MOUTH EVERY EVENING ferrous sulfate [FeroSul] 325 mg (65 mg iron) tablet 325 mg PO DAILY docusate sodium [Colace] 100 mg Capsule 100 mg PO BID Qty: 0 0RF magnesium hydroxide [Milk of Magnesia] 400 mg/5 mL Suspension 30 ml PO DAILY PRN PRNQty: 0 0RF polyethylene glycol 3350 17 gram Powder In Packet 17 g PO DAILY Qty: 30 0RF hydrocodone-acetaminophen 10-325 mg tablet 1 tab PO TID Qty: 6 0RF Stiolto Respimat 2.5-2.5 mcg/actuation Mist 2 puff inhalation DAILY Qty: 0 0RF Discontinued bumetanide 2 mg tablet See Rx Instructions .ROUTE .COMPLEX Qty: 20 0RF Rx Instructions: take 2 tabs in the morning (4 mg) and one tab in the afternoon (2 mg) Discharge Instructions Instructions: COPD (Chronic Obstructive Pulmonary Disease) (ED), Acute Bronchitis (ED), Leg Edema (ED) Additional Instructions: Elevate the legs above the level heart to reduce pain and swelling. You stated that you were no longer taking your diuretics which include Bumex (Bumetanide). As such, we will restart you on a dose of Lasix. Do not take this if you are indeed taking Bumex. We will arrange a follow-up appointment for you in primary care clinic. Your x-ray showed evidence of airspace disease which we will treat with a course of antibiotics. Return for any acute concerns. Medical Decision Making 71-year-old male presents from home. He has had what he says is weeks followed by an acute worsening over 3 days of lower extremity edema. It is in the context of not taking his prescribed diuretic for months. He is not hypoxic, he denies chest pain, near syncope or palpitations. Patient is oxygenating well on room air. He has a chronic cough and continues to smoke. He is referred for laboratory testing and chest x-ray. Labs note a white count of 6, hematocrit 42, platelets 232. Chemistries are unremarkable. His BNP is elevated at 3713. It has been as high as 8000 in the past. Chest x-ray reveals subtle peripheral opacity in the right upper lobe, could relate to acute airspace process. There is patchy opacification at the left lung base as well. Given the patient's chronic cough I do feel he should be treated for bronchitis. Additionally, I feel he will benefit from restarting his Lasix which is noted on previous cardiology note. He had taken 80/day I will start him at 40/day. We will ask for follow-up in the primary care office. [facility] General Mode of arrival: ambulatory . Date/Time Provider Initiated Documentation: 01/26/22 19:50 . Limitations to Documentation: no limitations . Information obtained by: patient . History of Present Illness 71 year old M presents to the emergency department with the chief complaint of Lower extremity edema worse over 3 days, described as moderate, Quality is described as constant, and is localized to the left, right and lower extremity. Patient reports no radiation. Patient started experiencing this day(s) and it has been constant. No relieving factors improve symptom(s), No exacerbating factors reported . Patient notes no other symptoms. and other (Has a chronic cough and continues to smoke and states it is unchanged); denies chest pain and shortness of breath. Patient did receive the following treatments prior to arrival, none Related Data Home Medications Medication Instructions Recorded Confirmed bupropion HCl (smoking deter) 150 150 mg PO BID 08/04/12 01/26/22 mg tablet,12 hr sustained-release(smoking deterrent) folic acid 1 mg tablet 1 mg PO DAILY 08/04/12 01/26/22 aspirin 81 mg tablet,delayed 81 mg PO DAILY 04/09/13 01/26/22 release (Ecotrin Low Strength) atorvastatin 10 mg tablet (Lipitor) 10 mg PO HS 01/25/15 01/26/22 cholecalciferol (vitamin D3) 25 2,000 units PO DAILY 04/12/16 01/26/22 mcg (1,000 unit) tablet nitroglycerin 0.4 mg sublingual 0.4 mg sublingual . DIRECTED PRN 04/12/16 01/26/22 tablet (Nitrostat) Chest Pain pantoprazole 40 mg tablet,delayed 40 mg PO DAILY 01/15/17 01/26/22 release lidocaine 5 % topical cream 1 applic topical QID 02/10/18 01/26/22 multivitamin 1 cap PO DAILY 02/10/18 01/26/22 sucralfate 100 mg/mL oral 10 ml PO QID 02/10/18 01/26/22 suspension (Carafate) metoprolol tartrate 25 mg tablet 25 mg PO BID 04/12/18 01/26/22 gabapentin 300 mg capsule 300 mg PO TID 01/15/20 01/26/22 spironolactone 25 mg tablet 25 mg PO DAILY 07/10/20 01/26/22 ferrous sulfate 325 mg (65 mg 325 mg PO DAILY 03/05/21 01/26/22 iron) tablet (FeroSul) tamsulosin 0.4 mg capsule 0.4 mg PO QHS 03/05/21 01/26/22 polyethylene glycol 3350 17 17 g PO BID #238 grams 09/17/21 01/26/22 gram/dose oral powder (Miralax) mirtazapine 7.5 mg tablet 7.5 mg PO HS 09/21/21 01/26/22 nicotine See Rx Instructions transdermal 09/21/21 01/26/22 21mg/24hr-14mg/24hr-7mg/24hr daily .COMPLEX transderm patches,sequentl docusate sodium 100 mg capsule 100 mg PO BID #0 caps 10/13/21 01/26/22 (Colace) hydrocodone 10 mg-acetaminophen 1 tab PO TID #6 tabs 10/13/21 01/26/22 325 mg tablet magnesium hydroxide 400 mg/5 mL 30 ml PO DAILY PRN PRN #0 mL 10/13/21 01/26/22 oral suspension (Milk of Magnesia) polyethylene glycol 3350 17 gram 17 g PO DAILY #30 ea 10/13/21 01/26/22 oral powder packet tiotropium 2.5 mcg-olodaterol 2.5 2 puff inhalation DAILY #0 grams 10/13/21 01/26/22 mcg/actuation mist for inhalation (Stiolto Respimat) albuterol sulfate 90 mcg/actuation 2 puff inhalation Q8H PRN 11/10/21 01/26/22 aerosol inhaler (Ventolin HFA) doxycycline hyclate 100 mg capsule 100 mg PO BID 10 days #20 caps 01/26/22 furosemide 40 mg tablet (Lasix) 40 mg PO DAILY 2 weeks #14 tabs 01/26/22 Previous Rx's Medication Instructions Recorded polyethylene glycol 3350 17 17 g PO BID #238 grams 09/17/21 gram/dose oral powder (Miralax) docusate sodium 100 mg capsule 100 mg PO BID #0 caps 10/13/21 (Colace) hydrocodone 10 mg-acetaminophen 1 tab PO TID #6 tabs 10/13/21 325 mg tablet magnesium hydroxide 400 mg/5 mL 30 ml PO DAILY PRN PRN #0 mL 10/13/21 oral suspension (Milk of Magnesia) polyethylene glycol 3350 17 gram 17 g PO DAILY #30 ea 10/13/21 oral powder packet tiotropium 2.5 mcg-olodaterol 2.5 2 puff inhalation DAILY #0 grams 10/13/21 mcg/actuation mist for inhalation (Stiolto Respimat) doxycycline hyclate 100 mg capsule 100 mg PO BID 10 days #20 caps 01/26/22 furosemide 40 mg tablet (Lasix) 40 mg PO DAILY 2 weeks #14 tabs 01/26/22 Allergies Allergy/AdvReac Type Severity Reaction Status Date / Time No Known Allergies Allergy Verified 01/26/22 16:14 General Stated Complaint: [facility] ANAMIKA: 3 Review of Systems Narrative: Denies any chest pain or palpitations. Mild weakness. No syncope. Stopped taking his diuretic. 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) CAP (community acquired pneumonia) (Acute) Generalized weakness (Acute) Skin tear of left elbow without complication (Acute) Chronic obstructive lung disease (Chronic) Tricuspid regurgitation (Chronic) CAD (coronary artery disease) (Chronic) Hypertension (Chronic) Medical History Abdominal pain Abnormal radiologic findings on diagnostic imaging of renal pelvis, ureter, or bladder Acute on chronic anemia Acute on chronic diastolic (congestive) heart failure Acute on chronic systolic CHF (congestive heart failure) Adenocarcinoma of esophagus Afib Alcohol abuse Alcohol abuse, continuous drinking behavior Anemia Bilateral lower extremity edema CAD (coronary artery disease) of artery bypass graft Cerumen impaction CHF, acute on chronic Confusion state COVID-19 COVID-19 Diabetes mellitus Difficulty reading Edema Encounter for colorectal cancer screening Epididymitis, right (08/02/16) Essential hypertension Failure to thrive Fall GERD (gastroesophageal reflux disease) GI bleed GI bleeding H/O malignant neoplasm of stomach Heart failure, left, with LVEF 41-49% History of GI bleed Hoarseness Hydrocele, right (01/23/16) Hyperlipidemia Hypokalemia Hypophosphatemia Kyphoscoliosis Low back pain Malnutrition Mild bibasilar atelectasis Pancreatitis Poor hygiene Prediabetes Protein malnutrition Pulmonary hypertension Recent weight loss Rib fractures Shortness of breath Solitary pulmonary nodule Tinnitus, left Tobacco abuse Weight loss Surgical History cardiac cath Coronary Artery Bypass Gaft (CABG) EGD - IV Sedation Esophagectomy H/O colonoscopy (2007) H/O colonoscopy (04/14/18) dr geller, sigmoid diverticulosis, repeat 10 years History of esophagogastroduodenoscopy (EGD) (09/2017) History of hydrocelectomy History of right inguinal hernia repair repair times two sugrical flap of unhealing wound Family History Mother No problems noted. Father No problems noted. Social History Smoking/Tobacco Use Status: Current-Occasional Tobacco Type: cigarettes Smoking packs per day: 1 Smoking cigarettes per day: 20.0 Years smoked: 50 Smoking pack- years: 50.00 Smoking risk assessment performed?: Yes Alcohol Intake: former Drug use: Never Substance use type: does not use What type of physical activity do you participate in: none Do you feel safe at home: Yes Do you feel safe in your relationship?: Yes Exam Narrative Exam Narrative: GEN: awake, alert, oriented 3. Pleasant, well groomed, interactive. HEAD: Normocephalic, atraumatic ENT: Mucous membranes moist, oropharynx unremarkable, External ear exam unremarkable EYES: PERRL, EOMI NECK: Full ROM, no BIRGIT, no menigismus CHEST/RESP: Distant, few end expiratory wheezes in the bilateral upper lobes, no significant rales appreciated CARDIOVASCULAR: RRR, no murmur, rub evans. 2+ Rad pulse bilateral ABDOMEN: Soft, nontender, no mass. +Bowel sounds EXT: Full ROM, upper extremities thin and muscle wasting. Lower extremity with pitting edema bilaterally that is symmetric. Neuro: Grossly normal neurologic exam, conversant, interactive. Psych: Speech fluent, thoughts congruent, affect normal Course Vital Signs Vital signs: Vital Signs Temperature 36.9 C 01/26/22 16:07 Pulse 99 H 01/26/22 16:07 Respiratory Rate 17 01/26/22 16:07 Blood Pressure 141/82 H 01/26/22 16:07 Pulse Oximetry 96 01/26/22 16:07 Temperature 36.8 C 01/26/22 20:02 Temperature Source Temporal Artery Scan 01/26/22 20:02 Pulse 100 H 01/26/22 20:02 Respiratory Rate 16 01/26/22 16:52 Respiratory Effort Non-Labored 01/26/22 16:52 Respiratory Depth Normal 01/26/22 16:52 Respiratory Pattern Normal 01/26/22 16:52 Blood Pressure 147/95 H 01/26/22 20:02 Blood Pressure Position Sitting 01/26/22 16:07 Pulse Oximetry 96 01/26/22 20:02 Oxygen Delivery Method Room Air 01/26/22 20:02 Oxygen Flow Rate 0 01/26/22 20:02 Pain Level 7 01/26/22 16:07
[2022-01-26 20:17] LABS: Abs Immature Grans 0.03 10^3/uL (0.0-0.06); Absolute Basophil Count 0.03 10^3/uL (0.0-0.2); Absolute Eosinophil Count 0.06 10^3/uL (0.0-0.7); Absolute Lymphocyte Count 1.32 10^3/uL (1.2-3.4); Absolute Monocyte Count 0.61 10^3/uL (0.1-0.8); Absolute Neutrophil Count 4.32 10^3/uL (1.2-6.7); Basophils % 0.5; Eosinophils % 0.9; HGB 13.6 g/dL (13.5-17.5); Immature Grans % 0.5; Lymphocytes % 20.7; MCH 30.4 pg (27.0-33.0); MCHC 32.4 % (32.0-36.0); MCV 94 fL (80-95); MPV 8.9 fL (8.0-11.0); Monocytes % 9.6; Neutrophils % 67.8; Platelet Count 232 10^3/uL (130-400); RBC 4.47 10^6/uL (4.36-5.78); RDW 13.7 % (11.8-14.1); WBC 6.37 10^3/uL (4.4-10.8)
[2022-01-26 20:31] VITALS: BP 155/86; PULSE 91; RESP 19; O2SAT 100
[2022-01-26 20:48] LABS: ALT 22 U/L (16-63); AST 19 U/L (15-37); Albumin 2.8 g/dL (3.4-5.0); Alkaline Phosphatase 125 U/L (46-116); Anion Gap 5.3 mmol/L (3-11); BUN 18 mg/dL (7-18); Bilirubin, Total 0.5 mg/dL (0.2-1.0); CO2 29.7 mmol/L (21.0-32.0); CREATININE 0.8 mg/dL (0.70-1.30); Calcium 8.7 mg/dL (8.5-10.1); Chloride 101 mmol/L (98-107); Glucose 102 mg/dL (74-106); Magnesium 1.9 mg/dL (1.8-2.4); NT-proBNP 3713 pg/mL (<300); Potassium 3.5 mmol/L (3.5-5.1); Sodium 136 mmol/L (136-145); Total Protein 7.1 g/dL (6.4-8.2)
--- NOTE | 2022-01-26 21:13 | DI.VRAD_ITS ---
PROCEDURE INFORMATION: Exam: XR Chest Exam date and time: 01/26/2022 8:32 PM Age: 71 years old Clinical indication: Other: Le edema; Prior surgery; Surgery date: 6+ months TECHNIQUE: Imaging protocol: Radiologic exam of the chest. Views: 1 view. COMPARISON: CR XR CHEST 2V PA LATERAL 11/05/2021 9:06 AM FINDINGS: Lungs: Diffuse emphysematous changes. Subtle peripheral opacity in the right upper lobe. Findings could relate to an acute airspace process. Patchy opacification at the left lung base. Pleural spaces: Unremarkable. No pleural effusion. No pneumothorax. Heart/Mediastinum: Unremarkable. No cardiomegaly. Bones/joints: Unremarkable. IMPRESSION: Subtle peripheral opacity in the right upper lobe. Findings could relate to an acute airspace process. Patchy opacification at the left lung base. Dictated and Authenticated by: Gabe Rincon MD. Ordering:IZAIAH Bundy MD
--- NOTE | 2022-01-26 21:19 | NUR.NOTE ---
Referral faxed to [facility], Dr Perdue to f/u in 10 days for leg edema.Nursing Note:
[2022-01-26 21:27] VITALS: BP 134/91; PULSE 83; RESP 18; O2SAT 98
[2022-01-26] MEDS: Furosemide 20 MG/2 ML VIAL IVP (21:27)
== END 2022-01-26 21:45 | disposition home or self-care (01) ==
PROVIDERS: Emergency Provider Emergency Medicine; PCP Family Medicine
DX: J44.0 Chronic obstructive pulmonary disease with (acute) lower respiratory infection (principal); J20.9 Acute bronchitis, unspecified; R91.8 Other nonspecific abnormal finding of lung field; R79.89 Other specified abnormal findings of blood chemistry; I11.0 Hypertensive heart disease with heart failure; I50.9 Heart failure, unspecified; F17.210 Nicotine dependence, cigarettes, uncomplicated; Z86.16 Personal history of COVID-19
CPT/HCPCS: 80053; 93005; 96374; 99284; 71045; 83735; 83880; 85025; 93010; 99285; J1941

== ENCOUNTER 2022-05-19 08:38 | Emergency (ER) | payer MEDICARE, MEDICAID, SELFPAY ==
[2022-05-19] VITALS (41 sets, daily range): BP systolic 101–182; BP diastolic 64–132; PULSE 81–122; RESP 12–24; TEMP 37.4; O2SAT 82–100
[2022-05-19] MEDS: Lidocaine 2% Jelly 6 ML SYR (09:15)
--- NOTE | 2022-05-19 09:15 | DI.RAD_ITS ---
Exam(s) XR PORTABLE CHEST AP EXAM: XR PORTABLE CHEST AP CLINICAL HISTORY: PUI, Cough TECHNIQUE: 2D digital imaging was performed of the chest. One image was obtained. An AP view was ob tained. COMPARISON: CR XR PORTABLE CHEST AP from 09/07/2021 CR,XR XR PORTABLE CHEST AP from 01/26/2022 FINDINGS: MEDIASTINUM: There is a hiatal hernia present. HEART: Normal. PULMONARY VASCULATURE: Normal. LUNGS: There are increased lung markings in the left base compared to the examination from 01/26/2022. There is underlying COPD and parenchymal scarring which appears stable. PLEURAL SPACE: No pleural effusion or pneumothorax. BONE:Within normal limits for the patient's age. Sternal wires are in place. OTHER FINDINGS:Normal. IMPRESSION: Left basilar infiltrate. DATA REPOSITORY: RADIATION DOSE DELIVERED:
--- NOTE | 2022-05-19 09:21 | W.ED.GENAD ---
Discharge Plan Disposition Patient Disposition: Home Condition: Stable Discharge Details Clinical Impression: Urinary retention, Biggs catheter in place Primary Care Provider: Silvina Perdue ED Provider: Carli Simpson Home Meds and New Rx's Prescriptions: New furosemide 20 mg tablet 20 mg PO DAILY 14 Days Qty: 14 0RF Rx Instructions: Take one tablet daily in am Continued sucralfate [Carafate] 100 mg/mL suspension 10 ml PO QID lidocaine 5 % cream 1 applic TP QID Rx Instructions: apply to lower back multivitamin capsule 1 cap PO DAILY albuterol sulfate [Ventolin HFA] 90 mcg/actuation HFA aerosol inhaler 2 puff inhalation Q8H PRN mirtazapine 7.5 mg tablet 7.5 mg PO HS nicotine 21-14-7 mg/24 hr patch, TD daily, sequential See Rx Instructions transdermal .COMPLEX Rx Instructions: apply 1-21 mg NICOTINE PATCH daily for 28 days; follow with 1-14 mg PATCH daily for 14 days, then 1-7mg PATCH daily for 14 days transdermal folic acid 1 MG tablet 1 mg PO DAILY bupropion HCl (smoking deter) 150 MG tablet extended release 12 hr 150 mg PO BID aspirin [Ecotrin Low Strength] 81 MG tablet,delayed release (DR/EC) 81 mg PO DAILY atorvastatin [Lipitor] 10 MG tablet 10 mg PO HS nitroglycerin [Nitrostat] 0.4 MG tablet, sublingual 0.4 mg Sublingual . DIRECTED PRN (Reason: Chest Pain) Protocol: Nitroglycerin-Angina Condition: Angina Dose/Route: 5 mcg/min Instruction: Titrate by 5 mcg/min every 3-5 minutes Condition: No response by 20 mcg/min Dose/Route: 30 mcg/min Instruction: Titrate by 10-20 mcg/min every 3-5 minutes Protocol Text: Angina, Not responsive to sublingual nitroglycerin and beta blockers a) Dosage is affected by the type of infusion set used. When nonabsorptive tubing is used, doses must be reduced. b) Using nonabsorptive tubing, the initial dose should be 5 micrograms/minute (mcg/min). Titration should be guided by clinical response, with more caution exercised as partial response is noted. Initial titration should be in 5 mcg/min increments at intervals of 3 to 5 minutes. If no response in noted at 20 mcg/min, increments of 10 to 20 mcg/min can be used. Dosage increments should be smaller and less frequent once some hemodynamic response is observed. c) Using standard polyvinyl chloride tubing, the usual starting dose in clinical studies has been 25 micrograms/minute or more. Continuous monitoring of hemodynamic parameters MUST BE PERFORMED during titration to optimal dosing. d) Typically, maximum infusion rates are defined by 20% or greater reductions in systolic blood pressure or 10% or greater increases in heart rate over baseline values. e) However, because of the evidence of tolerance and the possibility of methemoglobinemia, ethanol intoxication, and heparin resistance with high infusion rates, infusion rates of less than 40 micrograms/minute have been recommended. Source-[employer] (03/30/12) cholecalciferol (vitamin D3) 1,000 UNITS tablet 2,000 units PO DAILY gabapentin 300 mg capsule 300 mg PO TID spironolactone 25 mg tablet 25 mg PO DAILY Label Comments: TAKE ONE TABLET BY MOUTH EVERY DAY polyethylene glycol 3350 [Miralax] 17 gram/dose powder 17 g PO BID Qty: 238 0RF pantoprazole 40 MG tablet,delayed release (DR/EC) 40 mg PO DAILY metoprolol tartrate 25 mg Tablet 25 mg PO BID tamsulosin 0.4 mg capsule 0.4 mg PO QHS Label Comments: TAKE ONE CAPSULE BY MOUTH EVERY EVENING ferrous sulfate [FeroSul] 325 mg (65 mg iron) tablet 325 mg PO DAILY docusate sodium [Colace] 100 mg Capsule 100 mg PO BID Qty: 0 0RF magnesium hydroxide [Milk of Magnesia] 400 mg/5 mL Suspension 30 ml PO DAILY PRN PRNQty: 0 0RF polyethylene glycol 3350 17 gram Powder In Packet 17 g PO DAILY Qty: 30 0RF hydrocodone-acetaminophen 10-325 mg tablet 1 tab PO TID Qty: 6 0RF Stiolto Respimat 2.5-2.5 mcg/actuation Mist 2 puff inhalation DAILY Qty: 0 0RF Discharge Instructions Instructions: Urinary Retention in Men (ED), Biggs Catheter Placement and Care (ED), How to Change a Catheter Drainage Bag (DC) Additional Instructions: Please take the Lasix (Furosemide) once daily as directed. An order was placed for home health. They should help you with your Biggs care. Please wash your hands prior to draining the bag. You are also placed on care management list to help you get in a follow-up appointment with urology to discuss the urinary retention. Follow up with primary care provider in 3-5 days. Return to ED sooner if any worsening or concerns. Increase oral fluids. Referrals: Rashawn Poole MD [ [facility] STAFF PHYSICIAN] - 5 days Silvina Perdue MD [Primary Care Provider] - Return if symptoms worsen Discharge Data Discharge Date/Time-TO BE ENTERED AT DEPARTURE: 05/19/22 13:31 Medical Decision Making 71-year-old male with a past medical history of COPD, urinary retention, chronic anemia, congestive heart failure, adenocarcinoma of esophagus, A. fib, alcohol abuse, coronary artery disease, COVID-19, diabetes mellitus, hypertension, failure to thrive, malignant neoplasm of stomach, pulmonary hypertension presents to the ER via EMS with a chief complaint of inability to urinate since last night. Patient on 2 L nasal cannula, chest x-ray ordered, CBC CMP, proBNP, urinalysis and Biggs placed upon arrival. Over 800 mL output. CBC shows white blood cell count 7.18, no leukocytosis, hemoglobin 13.2, hematocrit 40.3, BUN 23 creatinine 0.8 GFR 94, alk phos 127 proBNP is 3857, this is just slightly elevated from his last result of 3700 in January, will give 20 mg of furosemide p.o. Urinalysis shows 20-50 RBCs no leukocytes no nitrites no signs of infection. Patient placed on room air for a room air trial. He is currently satting 95% he is drinking coffee. He does have home health that comes I will discuss with care management regarding the Biggs care and having patient follow-up with urology. He is homebound at this time he reports that he does not have a car. He also reports that he lives with a roommate who also has no means of transportation at this time. Home health order referral placed for registered nurse to instruct on and assessing compliance of Lasix, and to assess for exacerbation of the urinary retention and CHF. Physical therapist was also ordered to increase strength and endurance for safe mobility within the home, medical billing assistant was also ordered to assist with community resources and assist with long-term care planning care management found him to be resistant to engage, he does normally require the use of a cane and needs special transportation and assistance with transportation to and from appointments and will also require frequent rest periods and alternative accommodations for transportation. Patient is remained hemodynamically stable here in the department, will send him home with Lasix prescription, care management order for home health to assist with Biggs care and follow-up with urology. We will send patient home with a leg bag and instructed on changing out the catheter drainage bags. Patient discharged with RCT via wheelchair. He is remained hemodynamically stable throughout stay. This text was generated using [employer] system, please disregard any oddities of phrase or misspellings. Medical Records Medical records reviewed: Yes I reviewed the patient's medical records. Sign Out No HPI General Mode of arrival: EMS. Date/Time Provider Initiated Documentation: 05/19/22 08:46. Limitations to Documentation: no limitations. Information obtained by: patient, RN notes reviewed and old records reviewed. HPI Narrative: 71-year-old male with a past medical history of COPD, urinary retention, chronic anemia, congestive heart failure, adenocarcinoma of esophagus, A. fib, alcohol abuse, coronary artery disease, COVID-19, diabetes mellitus, hypertension, failure to thrive, malignant neoplasm of stomach, pulmonary hypertension presents to the ER via EMS with a chief complaint of inability to urinate since last night. Patient was found to have a sat of 83% on room air on scene, he was placed on 3 L nasal cannula. He is complaining of lower abdominal pain. Biggs was inserted upon his arrival which has over 800 cc out initially. He is somewhat cachectic, he does have rhonchorous cough and is satting 98% on 2 L nasal cannula. He is a full code. Related Data Home Medications Medication Instructions Recorded Confirmed bupropion HCl (smoking deter) 150 150 mg PO BID 08/04/12 05/19/22 mg tablet,12 hr sustained-release(smoking deterrent) folic acid 1 mg tablet 1 mg PO DAILY 08/04/12 05/19/22 aspirin 81 mg tablet,delayed 81 mg PO DAILY 04/09/13 05/19/22 release (Ecotrin Low Strength) atorvastatin 10 mg tablet (Lipitor) 10 mg PO HS 01/25/15 05/19/22 cholecalciferol (vitamin D3) 25 2,000 units PO DAILY 04/12/16 05/19/22 mcg (1,000 unit) tablet nitroglycerin 0.4 mg sublingual 0.4 mg sublingual . DIRECTED PRN 04/12/16 05/19/22 tablet (Nitrostat) Chest Pain pantoprazole 40 mg tablet,delayed 40 mg PO DAILY 01/15/17 05/19/22 release lidocaine 5 % topical cream 1 applic topical QID 02/10/18 05/19/22 multivitamin 1 cap PO DAILY 02/10/18 05/19/22 sucralfate 100 mg/mL oral 10 ml PO QID 02/10/18 05/19/22 suspension (Carafate) metoprolol tartrate 25 mg tablet 25 mg PO BID 04/12/18 05/19/22 gabapentin 300 mg capsule 300 mg PO TID 01/15/20 05/19/22 spironolactone 25 mg tablet 25 mg PO DAILY 07/10/20 05/19/22 ferrous sulfate 325 mg (65 mg 325 mg PO DAILY 03/05/21 05/19/22 iron) tablet (FeroSul) tamsulosin 0.4 mg capsule 0.4 mg PO QHS 03/05/21 05/19/22 polyethylene glycol 3350 17 17 g PO BID #238 grams 09/17/21 05/19/22 gram/dose oral powder (Miralax) mirtazapine 7.5 mg tablet 7.5 mg PO HS 09/21/21 05/19/22 nicotine See Rx Instructions transdermal 09/21/21 05/19/22 21mg/24hr-14mg/24hr-7mg/24hr daily .COMPLEX transderm patches,sequentl docusate sodium 100 mg capsule 100 mg PO BID #0 caps 10/13/21 05/19/22 (Colace) hydrocodone 10 mg-acetaminophen 1 tab PO TID #6 tabs 10/13/21 05/19/22 325 mg tablet magnesium hydroxide 400 mg/5 mL 30 ml PO DAILY PRN PRN #0 mL 10/13/21 05/19/22 oral suspension (Milk of Magnesia) polyethylene glycol 3350 17 gram 17 g PO DAILY #30 ea 10/13/21 05/19/22 oral powder packet tiotropium 2.5 mcg-olodaterol 2.5 2 puff inhalation DAILY #0 grams 10/13/21 05/19/22 mcg/actuation mist for inhalation (Stiolto Respimat) albuterol sulfate 90 mcg/actuation 2 puff inhalation Q8H PRN 11/10/21 05/19/22 aerosol inhaler (Ventolin HFA) furosemide 20 mg tablet 20 mg PO DAILY CHF 2 weeks #14 tabs 05/19/22 Previous Rx's Medication Instructions Recorded polyethylene glycol 3350 17 17 g PO BID #238 grams 09/17/21 gram/dose oral powder (Miralax) docusate sodium 100 mg capsule 100 mg PO BID #0 caps 10/13/21 (Colace) hydrocodone 10 mg-acetaminophen 1 tab PO TID #6 tabs 10/13/21 325 mg tablet magnesium hydroxide 400 mg/5 mL 30 ml PO DAILY PRN PRN #0 mL 10/13/21 oral suspension (Milk of Magnesia) polyethylene glycol 3350 17 gram 17 g PO DAILY #30 ea 10/13/21 oral powder packet tiotropium 2.5 mcg-olodaterol 2.5 2 puff inhalation DAILY #0 grams 10/13/21 mcg/actuation mist for inhalation (Stiolto Respimat) furosemide 20 mg tablet 20 mg PO DAILY CHF 2 weeks #14 tabs 05/19/22 Allergies Allergy/AdvReac Type Severity Reaction Status Date / Time No Known Allergies Allergy Verified 05/19/22 08:45 General Stated Complaint: Urinary ANAMIKA: 3 Review of Systems All systems reviewed & are unremarkable except as noted in HPI and below Cardiovascular Cardiovascular: Denies dyspnea Respiratory Respiratory: Denies change in phlegm color, Reports chest congestion, Reports cough, Reports excessive phlegm production and Denies dyspnea Gastrointestinal Gastrointestinal: Denies abdominal pain and Reports other (Patient reports he drinks a lot of water) Genitourinary Genitourinary: Reports as per HPI, Denies hematuria, Reports oliguria, Reports difficulty urinating, Denies testicular mass and Denies testicular pain [facility] All Active Problems (Updated 05/19/22 @ 13:01 by Carli Simpson, DIONISIO) Biggs catheter in place (Acute) Abnormal chest CT (Acute) Full code status (Acute) Urinary tract infection (Acute) 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) CAP (community acquired pneumonia) (Acute) Generalized weakness (Acute) Skin tear of left elbow without complication (Acute) Chronic obstructive lung disease (Chronic) Tricuspid regurgitation (Chronic) CAD (coronary artery disease) (Chronic) Hypertension (Chronic) Medical History Abdominal pain Abnormal radiologic findings on diagnostic imaging of renal pelvis, ureter, or bladder Acute on chronic anemia Acute on chronic diastolic (congestive) heart failure Acute on chronic systolic CHF (congestive heart failure) Adenocarcinoma of esophagus Afib Alcohol abuse Alcohol abuse, continuous drinking behavior Anemia Bilateral lower extremity edema CAD (coronary artery disease) of artery bypass graft Cerumen impaction CHF, acute on chronic Confusion state COVID-19 COVID-19 Diabetes mellitus Difficulty reading Edema Encounter for colorectal cancer screening Epididymitis, right (08/02/16) Essential hypertension Failure to thrive Fall GERD (gastroesophageal reflux disease) GI bleed GI bleeding H/O malignant neoplasm of stomach Heart failure, left, with LVEF 41-49% History of GI bleed Hoarseness Hydrocele, right (01/23/16) Hyperlipidemia Hypokalemia Hypophosphatemia Kyphoscoliosis Low back pain Malnutrition Mild bibasilar atelectasis Palliative care encounter Pancreatitis Poor hygiene Prediabetes Protein malnutrition Pulmonary hypertension Recent weight loss Rib fractures Shortness of breath Solitary pulmonary nodule Tinnitus, left Tobacco abuse Weight loss Surgical History cardiac cath Coronary Artery Bypass Gaft (CABG) EGD - IV Sedation Esophagectomy H/O colonoscopy (2007) H/O colonoscopy (04/14/18) dr geller, sigmoid diverticulosis, repeat 10 years History of esophagogastroduodenoscopy (EGD) (09/2017) History of hydrocelectomy History of right inguinal hernia repair repair times two sugrical flap of unhealing wound Family History Mother No problems noted. Father No problems noted. Social History Smoking/Tobacco Use Status: Current-Occasional Tobacco Type: cigarettes Smoking packs per day: 1 Smoking cigarettes per day: 20.0 Years smoked: 50 Smoking pack-years: 50.00 Smoking risk assessment performed?: Yes Alcohol Intake: former Drug use: Never Substance use type: does not use What type of physical activity do you participate in: none Do you feel safe at home: Yes Do you feel safe in your relationship?: Yes Exam Narrative Exam Narrative: Constitutional: Alert and oriented x3. Appears stated age. Cachectic body habitus. Head: Normocephalic, no trauma. Eyes: Pupils PERRL, Red reflex noted, EOM's intact. Eyelids symmetrical without lesions, discharge, or swelling. ENT: Bilateral TM's WNL, External ear normal to inspection, no mastoid TTP, swelling, or erythema, Nasal turbinates WNL, no nasal discharge. Normal dentition, Posterior pharynx WNL, no exudate. Chest: RRR, Normal S1, S2, distal pulses intact. Resp: Lungs clear to auscultation bilaterally, no wheezes, rales, or rhonchi. Abdomen: Soft, non-distended, Normoactive bowel sounds all 4 quads. Musculoskeletal: Unable to assess gait, 5/5 strength to all four extremities. 3+ pitting edema to bilateral lower extremities, worse on the right. Skin: No suspicious rashes or lesions. Capillary refill less than 2 sec. Neurologic: Cranial nerves II-XII intact. Alert and oriented x 3. Motor: No deficits noted. Sensory: Intact bilaterally all 4 extremities. Reflexes: DTR's intact bilaterally.. Hematologic/Lymphatic: No ecchymosis, no lymphadenopathy. Course Vital Signs Vital signs: Vital Signs Temperature 37.4 C 05/19/22 08:40 Pulse 122 H 05/19/22 08:40 Respiratory Rate 20 05/19/22 08:40 Blood Pressure 182/132 H 05/19/22 08:40 Pulse Oximetry 99 05/19/22 08:40 Temperature 37.4 C 05/19/22 08:40 Temperature Source Oral 05/19/22 08:40 Pulse 122 H 05/19/22 08:40 Respiratory Rate 20 05/19/22 08:40 Respiratory Effort 05/19/22 08:44 Blood Pressure 182/132 H 05/19/22 08:40 Blood Pressure Position Sitting 05/19/22 08:40 Pulse Oximetry 99 05/19/22 08:40 Oxygen Delivery Method Nasal Cannula 05/19/22 08:40 Oxygen Flow Rate 3 05/19/22 08:40 Pain Level 8 05/19/22 08:44
[2022-05-19 09:43] LABS: Abs Immature Grans 0.03 10^3/uL (0.0-0.06); Absolute Basophil Count 0.03 10^3/uL (0.0-0.2); Absolute Eosinophil Count 0.08 10^3/uL (0.0-0.7); Absolute Lymphocyte Count 1.27 10^3/uL (1.2-3.4); Absolute Monocyte Count 0.65 10^3/uL (0.1-0.8); Absolute Neutrophil Count 5.12 10^3/uL (1.2-6.7); Basophils % 0.4; Bilirubin Negative (Negative); Blood Moderate (Negative); Clarity Clear (Clear); Eosinophils % 1.1; Glucose Negative (Negative); HCT 40.3 % (40.0-50.0); HGB 13.2 g/dL (13.5-17.5); Immature Grans % 0.4; Ketones Negative (Negative); Leukocyte Esterase Negative (Negative); Lymphocytes % 17.7; MCH 31.5 pg (27.0-33.0); MCHC 32.8 % (32.0-36.0); MCV 96 fL (80-95); MPV 8.9 fL (8.0-11.0); Monocytes % 9.1; Neutrophils % 71.3; Nitrite Negative (Negative); Platelet Count 243 10^3/uL (130-400); RBC 4.19 10^6/uL (4.36-5.78); RDW 14.6 % (11.8-14.1); RDW-SD 50.6 fL; Urobilinogen 0.2 EU/dL (Up TO 0.2); WBC 7.18 10^3/uL (4.4-10.8)
[2022-05-19 09:52] LABS: Bacteria Negative HPF (Negative); C & S Indicated? No; Casts Negative LPF (Negative); Crystals Negative HPF (Negative); Epithelial Cells Rare HPF (Negative); Mucus Negative (Negative); RBC 20-50 HPF (0-2); WBC Negative HPF (0-5)
[2022-05-19 10:01] LABS: ALT 16 U/L (16-63); AST 24 U/L (15-37); Albumin 3.1 g/dL (3.4-5.0); Alkaline Phosphatase 127 U/L (46-116); Anion Gap 6.8 mmol/L (3-11); BUN 23 mg/dL (7-18); Bilirubin, Total 0.6 mg/dL (0.2-1.0); CO2 30.2 mmol/L (21.0-32.0); CREATININE 0.8 mg/dL (0.70-1.30); Calcium 9.2 mg/dL (8.5-10.1); Chloride 99 mmol/L (98-107); Estimated GFR 94.62 (mL/min/1.73m2); Glucose 90 mg/dL (74-106); Potassium 4.1 mmol/L (3.5-5.1); Sodium 136 mmol/L (136-145); Total Protein 7.4 g/dL (6.4-8.2)
[2022-05-19 10:16] LABS: COVID-19 PCR Negative (Negative); Influenza A PCR Negative (Negative); Influenza B PCR Negative (Negative); RSV PCR Negative (Negative)
[2022-05-19 10:26] LABS: NT-proBNP 3857 pg/mL (<300)
--- NOTE | 2022-05-19 10:39 | NUR.NOTE ---
Nursing Note: PT RESTING ON BED, REPORTS BREATHING FEELING 'BETTER' DENIES PAIN, REQUEST & RECIEVE COFFEE AFTER PROVIDERS APPROVAL, CONT. TO MONITOR.
[2022-05-19] MEDS: Furosemide 20 MG TAB PO (11:17)
--- NOTE | 2022-05-19 13:30 | NUR.NOTE ---
Nursing Note: CHANGE PT URINARY BAG TO LEG BAG, PT TEACHING DONE. CALL PLACED TO PT ROOMMATE YOUNG, SHE STATES SHE IS AWARE OF CATHETER CARE AND HOME HEALTH COMING TO PT HOME. PT VERBALIZED UNDERSTANDING OF CATHETER CARE, LEG BAG & LARGER DRAINAGE BAG FOR NIGHTIME USE.
--- NOTE | 2022-05-19 17:20 | NUR.NOTE ---
Nursing Note: Referral faxed to [facility] Urology for urinary retention, cervantes in place; 3 to 5 days.
== END 2022-05-19 13:31 | disposition home or self-care (01) ==
PROVIDERS: Emergency Provider Registered Nurse Emergency; PCP Family Medicine
DX: R33.9 Retention of urine, unspecified (principal); J44.9 Chronic obstructive pulmonary disease, unspecified; Z96.0 Presence of urogenital implants; I50.43 Acute on chronic combined systolic (congestive) and diastolic (congestive) heart failure; I48.91 Unspecified atrial fibrillation; I25.10 Atherosclerotic heart disease of native coronary artery without angina pectoris; E11.9 Type 2 diabetes mellitus without complications; I11.0 Hypertensive heart disease with heart failure; Z79.84 Long term (current) use of oral hypoglycemic drugs; Z85.01 Personal history of malignant neoplasm of esophagus; Z85.028 Personal history of other malignant neoplasm of stomach; Z20.822 Contact with and (suspected) exposure to COVID-19; Z86.16 Personal history of COVID-19
CPT/HCPCS: 36415; 51702; 80053; 87637; 99284; 71045; 81003; 81015; 83880; 85025

== ENCOUNTER 2022-05-27 17:36 | Outpatient (REF) | payer MEDICARE, MEDICAID, SELFPAY ==
[2022-05-27 18:57] LABS: Bilirubin Negative (Negative); Blood Large (Negative); Clarity Cloudy (Clear); Glucose Negative (Negative); Ketones Negative (Negative); Leukocyte Esterase Moderate (Negative); Nitrite Negative (Negative); Specific Gravity 1.025 (1.005-1.025); pH 5.5 (5-8)
[2022-05-27 19:05] LABS: Epithelial Cells Few HPF (Negative); WBC >50 HPF (0-5)
[2022-05-27 19:06] LABS: Bacteria Few HPF (Negative); C & S Indicated? C&S Done As Ordered; Crystals Negative HPF (Negative); Mucus Negative (Negative)
== END 2022-05-27 17:37 | disposition home or self-care (01) ==
LOC: NCHCN 17:36
PROVIDERS: PCP Family Medicine; Visit Provider Family Medicine
DX: R33.9 Retention of urine, unspecified (principal); Z46.6 Encounter for fitting and adjustment of urinary device
CPT/HCPCS: 87077; 81003; 81015; 87086; 87186

== ENCOUNTER 2022-06-20 03:35 | Emergency (ER) | payer MEDICARE, MEDICAID, SELFPAY ==
[2022-06-20 03:34] VITALS: BP 166/89; PULSE 90; RESP 20; TEMP 36.5; O2SAT 97
--- NOTE | 2022-06-20 03:34 | ED.GENADUL_ITS ---
Discharge Plan Disposition Patient Disposition: Home Condition: Good Discharge Details Chief Complaint: SOB Clinical Impression: Mild peripheral edema Primary Care Provider: Silvina Perdue ED Provider: Juarez Saleem Home Meds and New Rx's Prescriptions: No Action Combivent Respimat 20-100 mcg/actuation mist 1 puff inhalation Q6H PRN furosemide [Lasix] 20 mg tablet 20 mg PO QAM Qty: 30 0RF Discharge Instructions Instructions: Edema (ED) Additional Instructions: At this time your labs are stable. We have given you 2 extra tablets of Lasix/water pill to take if you are not able to get your prescription filled today. Take 1 of these each morning until you have your prescription filled. Please avoid salty foods. Keep your legs elevated and wrapped at all times to help the swelling go down. If you notice any worsening of your symptoms, or any new symptoms such as vomiting, diarrhea, fever, chills, shortness of breath, chest pain, numbness, weakness, or fainting , please return immediately to the emergency department for reevaluation. Please follow up with your primary care provider as soon as possible for reassessment and reevaluation. As always, it was a pleasure participating in your medical care today. Referrals: Silvina Perdue MD [Primary Care Provider] - Medical Decision Making 71-year-old male with a history of pulmonary fibrosis with emphysema,? 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 Patient states that he missed his dose of Lasix yesterday because he was unable to have someone knot picker cloth the medication from [facility]. He states that by the time his friend got there they were closed. He states that his legs are swollen and because the slightly painful. He does have chronic lower extremity edema as noted by recent charts including his most recent palliative care visit on June 09. He presents via EMS. He denies any chest pain or shortness of breath. He admits to a chronic cough and states that has not changed. He does not use oxygen at baseline. He has no other complaints at this time. He states that his goals here today are to get his Lasix and to help his leg swelling. Exam demonstrates well-appearing male, no hypoxemia, shortness of breath, or chest pain. Symptoms inconsistent with ACS. It appears that the patient has just not been able to get his Lasix that was prescribed to him secondary to planning and timing constraints. Exam demonstrates +2 pitting edema of the lower extremities bilaterally, no unilateral swelling. There is also +3 pitting edema of the feet bilaterally. No ulcers or lesions. We will give 40 of Lasix IV, monitor closely and reassess. 5:01 AM Patient is doing well, vital signs remained stable. Patient has micturated 600 cc of urine. He feels well. Laboratory work-up is stable, potassium slightly low at 3.2, we have given him 40 mEq of oral potassium here. Patient will be discharged home. BNP is at his stable level, renal function is good. We will give him a few tablets of Lasix to go home with just in case he is not able to get his prescription today. Discussed red flags for which to return. I have extensively reviewed the treatment plan and discharge instructions with the patient. I have addressed all patient concerns at this time. The patient was made aware of what symptoms to monitor for that would warrant a return to the emergency department. Discussed the plan with the patient, they demonstrate verbal understanding and agreement with our assessment and plan at this time. The documentation in this chart was dictated using [employer] dictation software. Please excuse any dictation errors. HPI General Date/Time Provider Initiated Documentation: 06/20/22 03:41 . HPI Narrative: 71-year-old male with a history of pulmonary fibrosis with emphysema,? 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 Patient states that he missed his dose of Lasix yesterday because he was unable to have someone knot picker cloth the medication from [facility]. He states that by the time his friend got there they were closed. He states that his legs are swollen and because the slightly painful. He does have chronic lower extremity edema as noted by recent charts including his most recent palliative care visit on June 09. He presents via EMS. He denies any chest pain or shortness of breath. He admits to a chronic cough and states that has not changed. He does not use oxygen at baseline. He has no other complaints at this time. He states that his goals here today are to get his Lasix and to help his leg swelling. Related Data Home Medications Medication Instructions Recorded Confirmed furosemide 20 mg tablet (Lasix) 20 mg PO QAM #30 tabs 06/10/22 06/10/22 ipratropium 20 mcg-albuterol 100 1 puff inhalation Q6H PRN 06/10/22 06/10/22 mcg/actuation mist for inhalation (Combivent Respimat) Previous Rx's Medication Instructions Recorded furosemide 20 mg tablet (Lasix) 20 mg PO QAM #30 tabs 06/10/22 Allergies Allergy/AdvReac Type Severity Reaction Status Date / Time No Known Allergies Allergy Verified 05/19/22 08:45 General ANAMIKA: 3 Review of Systems All systems reviewed & are unremarkable except as noted in HPI and below PFSH All Active Problems (Updated 06/20/22 @ 05:04 by Juarez Saleem DO) Mild peripheral edema (Acute) Depression (Chronic) Dental abscess (Acute) 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) Abnormal chest CT (Acute) Full code status (Acute) Urinary tract infection (Acute) 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) CAP (community acquired pneumonia) (Acute) Generalized weakness (Acute) Skin tear of left elbow without complication (Acute) Chronic obstructive lung disease (Chronic) Tricuspid regurgitation (Chronic) CAD (coronary artery disease) (Chronic) Hypertension (Chronic) Medical History Abdominal pain Abnormal radiologic findings on diagnostic imaging of renal pelvis, ureter, or bladder Acute on chronic anemia Acute on chronic diastolic (congestive) heart failure Acute on chronic systolic CHF (congestive heart failure) Adenocarcinoma of esophagus From [facility]:Hx GI Cancer...EGD 04/2021 with friable mucosa. SDOne at that time because of GI blooed Afib Alcohol abuse Alcohol abuse, continuous drinking behavior Anemia Bilateral lower extremity edema CAD (coronary artery disease) of artery bypass graft Cerumen impaction CHF, acute on chronic Confusion state COVID-19 COVID-19 Diabetes mellitus Difficulty reading Edema Encounter for colorectal cancer screening Epididymitis, right (08/02/16) Essential hypertension Failure to thrive Fall GERD (gastroesophageal reflux disease) GI bleed GI bleeding H/O malignant neoplasm of stomach Heart failure, left, with LVEF 41-49% History of GI bleed Hoarseness Hydrocele, right (01/23/16) Hyperlipidemia Hypokalemia Hypophosphatemia Kyphoscoliosis Low back pain Malnutrition Mild bibasilar atelectasis Palliative care encounter Pancreatitis Poor hygiene Prediabetes Protein malnutrition Pulmonary hypertension Recent weight loss Rib fractures Shortness of breath Solitary pulmonary nodule Tinnitus, left Tobacco abuse Weight loss Surgical History cardiac cath Coronary Artery Bypass Gaft (CABG) EGD - IV Sedation Esophagectomy H/O colonoscopy (2007) H/O colonoscopy (04/14/18) dr geller, sigmoid diverticulosis, repeat 10 years History of esophagogastroduodenoscopy (EGD) (09/2017) History of hydrocelectomy History of right inguinal hernia repair repair times two sugrical flap of unhealing wound Family History Mother No problems noted. Father No problems noted. Social History Smoking/Tobacco Use Status: Current-Occasional Tobacco Type: cigarettes Smoking packs per day: 1 Smoking cigarettes per day: 20.0 Years smoked: 50 Smoking pack-years: 50.00 Smoking risk assessment performed?: Yes Alcohol Intake: former Drug use: Never Substance use type: does not use What type of physical activity do you participate in: none Do you feel safe at home: Yes Do you feel safe in your relationship?: Yes Exam Narrative Exam Narrative: 1.Const: Well-nourished, Well-developed, appearing stated age 2.Eyes: PERRL, no conjunctival injection, and symmetrical lids. 3.ENT: Atraumatic external nose and ears. Moist MM. Neck: Symmetric, trachea midline, No thyromegaly. 4.CVS: +S1/S2, No murmurs or gallops. Peripheral pulses 2+ and equal in all extremities. Brisk capillary refill in all extremities. 5.RESP: Unlabored respiratory effort. Mild scattered rhonchi. No crackles or wheezes. 6.GI: Soft, Nontender/Nondistended, No hepatosplenomegaly. No guarding or rebound. Chronic Biggs catheter in place 7.MSK: Normocephalic/Atraumatic, Extremities w/o deformity, normal movement of all extremities. +2 pitting edema for the lower extremities bilaterally, +3 pitting edema on the feet bilaterally. No calf tenderness. No ulcers or lesions. 8.Skin: Warm, Dry. No rashes or lesions. 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 Sensation grossly intact, no focal neurologic deficits. 10.Psych: (AAO) x3. Appropriate mood and affect
[2022-06-20] MEDS: Furosemide 40 MG/4 ML VIAL IVP (03:52)
[2022-06-20 03:57] LABS: Abs Immature Grans 0.04 10^3/uL (0.0-0.06); Absolute Basophil Count 0.02 10^3/uL (0.0-0.2); Absolute Eosinophil Count 0.17 10^3/uL (0.0-0.7); Absolute Lymphocyte Count 1.44 10^3/uL (1.2-3.4); Absolute Monocyte Count 0.81 10^3/uL (0.1-0.8); Basophils % 0.2; Eosinophils % 2.1; HCT 40.7 % (40.0-50.0); HGB 13.2 g/dL (13.5-17.5); Immature Grans % 0.5; Lymphocytes % 17.4; MCH 31.4 pg (27.0-33.0); MCHC 32.4 % (32.0-36.0); MCV 97 fL (80-95); MPV 8.5 fL (8.0-11.0); Monocytes % 9.8; Platelet Count 259 10^3/uL (130-400); RDW-SD 53.3 fL; WBC 8.28 10^3/uL (4.4-10.8)
[2022-06-20 03:58] VITALS: RESP 20
[2022-06-20 04:29] LABS: ALT 14 U/L (16-63); AST 21 U/L (15-37); Albumin 3.3 g/dL (3.4-5.0); Alkaline Phosphatase 153 U/L (46-116); Anion Gap 7.2 mmol/L (3-11); BUN 12 mg/dL (7-18); Bilirubin, Total 0.5 mg/dL (0.2-1.0); CO2 28.8 mmol/L (21.0-32.0); CREATININE 0.7 mg/dL (0.70-1.30); Calcium 8.9 mg/dL (8.5-10.1); Chloride 100 mmol/L (98-107); Estimated GFR 98.51 (mL/min/1.73m2); Glucose 94 mg/dL (74-106); NT-proBNP 3990 pg/mL (<300); Potassium 3.2 mmol/L (3.5-5.1); Sodium 136 mmol/L (136-145); Total Protein 7.8 g/dL (6.4-8.2)
[2022-06-20 04:47] VITALS: BP 127/72; PULSE 95; RESP 20; O2SAT 95
[2022-06-20] MEDS: Potassium Chloride 20 MEQ TABCR 40 MEQ PO (04:49)
--- NOTE | 2022-06-20 04:50 | NUR.NOTE ---
Nursing Note: Pt had snack of milk & sand. , 600ml dark yellow urine emptied from leg bag in place, medicated PO K+, denies new complaints, states legs less sore, VSS, cont. to monitor.
[2022-06-20] MEDS: Furosemide 20 MG TAB 40 MG PO (05:37)
[2022-06-20 05:39] VITALS: BP 112/65; PULSE 102; RESP 20; O2SAT 96
--- NOTE | 2022-06-20 05:44 | NUR.NOTE ---
Nursing Note: provider notified pt took Lasix 40mg po at this time, not 20mg for today and 20mg for tomorrow, no new orders at this time
[2022-06-20 06:27] VITALS: BP 113/67; PULSE 86; RESP 20; TEMP 36.7; O2SAT 95
--- NOTE | 2022-06-20 06:28 | NUR.NOTE ---
Nursing Note: Discussed w/patient plan of care to return home when transportation available (RTC) and pt to resume PO lasix daily tomorrow as ordered, pt verbalized understanding and agrees w/plan of care, cont. to monitor, no new complaints, pt reports able to sleep a little, VSS.
[2022-06-20 07:47] VITALS: BP 107/75; PULSE 82; TEMP 37.2; O2SAT 94
== END 2022-06-20 08:04 | disposition home or self-care (01) ==
PROVIDERS: Emergency Provider Student in an Organized Health Care Education/Training Program; PCP Family Medicine
DX: R60.0 Localized edema (principal); J43.9 Emphysema, unspecified; I48.91 Unspecified atrial fibrillation; I25.10 Atherosclerotic heart disease of native coronary artery without angina pectoris; I11.0 Hypertensive heart disease with heart failure; I50.33 Acute on chronic diastolic (congestive) heart failure; Z86.16 Personal history of COVID-19
CPT/HCPCS: 80053; 96374; 99284; 83880; 85025; J1940

== ENCOUNTER → 2022-06-24 12:50 | Outpatient (BNVA) | payer MEDICARE, MEDICAID, SELFPAY | PROVIDERS: PCP Family Medicine; Referring Provider Family Medicine; Visit Provider Nurse Practitioner Gerontology | DX: Z46.6 Encounter for fitting and adjustment of urinary device (principal); Z96.0 Presence of urogenital implants; R33.9 Retention of urine, unspecified | CPT/HCPCS: 51798; 99212; 99214; 99215 ==

== ENCOUNTER 2022-06-28 16:53 | Emergency (ER) | payer MEDICARE, MEDICAID, SELFPAY ==
[2022-06-28 16:32] VITALS: BP 158/102; PULSE 82; RESP 22; TEMP 36.4; O2SAT 100
--- NOTE | 2022-06-28 16:48 | ED.GENADUL_ITS ---
Discharge Plan Disposition Patient Disposition: Home Condition: Good Discharge Details Clinical Impression: Acute UTI Primary Care Provider: Silvina Perdue ED Provider: Juarez Saleem Home Meds and New Rx's Prescriptions: Continued furosemide [Lasix] 20 mg tablet 20 mg PO QAM Label Comments: pt states he has not picked up this med Combivent Respimat 20-100 mcg/actuation mist 1 puff inhalation Q6H PRN Discharge Instructions Instructions: Urinary Tract Infection in Men (ED) Additional Instructions: At this time you have evidence of a very mild urinary tract infection. You have been given fosfomycin, which will take care of the infection most likely. In the meantime for the small amount of leaking that you still have, please use the adult depends that we have given you. If you notice any worsening of your symptoms, or any new symptoms such as vomiting, diarrhea, fever, chills, shortness of breath, chest pain, numbness, weakness, or fainting , please return immediately to the emergency department for reevaluation. Please follow up with your primary care provider as soon as possible for reassessment and reevaluation. As always, it was a pleasure participating in your medical care today. Referrals: Silvina Perdue MD [Primary Care Provider] - Medical Decision Making 71-year-old male with a past medical history of pulmonary fibrosis with emphysema, A. fib, coronary artery disease, diastolic congestive heart fail ure with an ejection fraction of 60%, hypertension, alcohol abuse in remission, cognitive impairment with history of GI tract cancer, and medication noncompliance in general, presents today for evaluation. Patient had a Biggs catheter recently removed a few days ago by urology. He has been doing well until today when he states that there is bit occasional leaking whenever he has to go pee. He does not have any adult depends, and so he has been leaking into his pants. He contacted EMS and he was brought here for further assessment. Patient states that his family doctor recommended he come, however when I speak with Dr. Vela and her practice does not appear that he has been there at all in the last few days. Later upon further discussion he states that it was really just his urinary issue that was what brought him in today. Patient denies any fever or chills. No abdominal pain. No other complaints at this time. Exam demonstrates no abdominal tenderness, no bloating, no signs of urinary retention. No active leaking currently. We will get a urinalysis to evaluate for signs of infection, we will give the patient an adult depends. We will monitor closely and reassess. 5:43 PM Patient's urinalysis shows questionable minimal urinary tract infection. Out of an abundance of caution we will give the patient a dose of fosfomycin. Patient has been given multiple depends to go home with, and has been equipped with depends here. Bladder scan was performed and there is no evidence of significant retention. Patient otherwise stable. He has no additional concerns or questions. Patient will be discharged. I have extensively reviewed the treatment plan and discharge instructions with the patient. I have addressed all patient concerns at this time. The patient was made aware of what symptoms to monitor for that would warrant a return to the emergency department. Discussed the plan with the patient, they demonstrate verbal understanding and agreement with our assessment and plan at this time. The documentation in this chart was dictated using [employer] dictation software. Please excuse any dictation errors. HPI General Date/Time Provider Initiated Documentation: 06/28/22 17:17 . HPI Narrative: 71-year-old male with a past medical history of pulmonary fibrosis with emphysema, A. fib, coronary artery disease, diastolic congestive heart failure with an ejection fraction of 60%, hypertension, alcohol abuse in remission, cognitive impairment with history of GI tract cancer, and medication noncompliance in general, presents today for evaluation. Patient had a Biggs catheter recently removed a few days ago by urology. He has been doing well until today when he states that there is bit occasional leaking whenever he has to go pee. He does not have any adult depends, and so he has been leaking into his pants. He contacted EMS and he was brought here for further assessment. Patient states that his family doctor recommended he come, however when I speak with Dr. Vela and her practice does not appear that he has been there at all in the last few days. Later upon further discussion he states that it was really just his urinary issue that was what brought him in today. Patient denies any fever or chills. No abdominal pain. No other complaints at this time. Related Data Home Medications Medication Instructions Recorded Confirmed ipratropium 20 mcg-albuterol 100 1 puff inhalation Q6H PRN 06/10/22 06/28/22 mcg/actuation mist for inhalation (Combivent Respimat) furosemide 20 mg tablet (Lasix) 20 mg PO QAM 06/24/22 06/28/22 Allergies Allergy/AdvReac Type Severity Reaction Status Date / Time No Known Allergies Allergy Verified 06/28/22 16:30 General Stated Complaint: Urinary ANAMIKA: 3 Review of Systems All systems reviewed & are unremarkable except as noted in HPI and below PFSH All Active Problems (Updated 06/28/22 @ 17:35 by Juarez Saleem DO) Acute UTI (Acute) Mild peripheral edema (Acute) Depression (Chronic) Dental abscess (Acute) 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) Abnormal chest CT (Acute) Full code status (Acute) Urinary tract infection (Acute) 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) CAP (community acquired pneumonia) (Acute) Generalized weakness (Acute) Skin tear of left elbow without complication (Acute) Chronic obstructive lung disease (Chronic) Tricuspid regurgitation (Chronic) CAD (coronary artery disease) (Chronic) Hypertension (Chronic) Medical History Abdominal pain Abnormal radiologic findings on diagnostic imaging of renal pelvis, ureter, or bladder Acute on chronic anemia Acute on chronic diastolic (congestive) heart failure Acute on chronic systolic CHF (congestive heart failure) Adenocarcinoma of esophagus From [facility] [place]:Hx GI Cancer...EGD 04/2021 with friable mucosa. SDOne at that time because of GI blooed Afib Alcohol abuse Alcohol abuse, continuous drinking behavior Anemia Bilateral lower extremity edema CAD (coronary artery disease) of artery bypass graft Cerumen impaction CHF, acute on chronic Confusion state COVID-19 COVID-19 Diabetes mellitus Difficulty reading Edema Encounter for colorectal cancer screening Epididymitis, right (08/02/16) Essential hypertension Failure to thrive Fall GERD (gastroesophageal reflux disease) GI bleed GI bleeding H/O malignant neoplasm of stomach Heart failure, left, with LVEF 41-49% History of GI bleed Hoarseness Hydrocele, right (01/23/16) Hyperlipidemia Hypokalemia Hypophosphatemia Kyphoscoliosis Low back pain Malnutrition Mild bibasilar atelectasis Palliative care encounter Pancreatitis Poor hygiene Prediabetes Protein malnutrition Pulmonary hypertension Recent weight loss Rib fractures Shortness of breath Solitary pulmonary nodule Tinnitus, left Tobacco abuse Weight loss Surgical History cardiac cath Coronary Artery Bypass Gaft (CABG) EGD - IV Sedation Esophagectomy H/O colonoscopy (2007) H/O colonoscopy (04/14/18) dr geller, sigmoid diverticulosis, repeat 10 years History of esophagogastroduodenoscopy (EGD) (09/2017) History of hydrocelectomy History of right inguinal hernia repair repair times two sugrical flap of unhealing wound Family History Mother No problems noted. Father No problems noted. Social History Smoking/Tobacco Use Status: Current every day Tobacco Type: cigarettes Smoking packs per day: 1 Smoking cigarettes per day: 20.0 Years smoked: 50 Smoking pack- years: 50.00 Smoking risk assessment performed?: Yes Alcohol Intake: former Drug use: Never Substance use type: does not use What type of physical activity do you participate in: none Do you feel safe at home: Yes Do you feel safe in your relationship?: Yes Exam Narrative Exam Narrative: 1.Const: Well-nourished, Well-developed, appearing stated age 2.Eyes: PERRL, no conjunctival injection, and symmetrical lids. 3.ENT: Atraumatic external nose and ears. Moist MM. Neck: Symmetric, trachea midline, No thyromegaly. 4.CVS: +S1/S2, No murmurs or gallops. Peripheral pulses 2+ and equal in all extremities. Brisk capillary refill in all extremities. 5.RESP: Unlabored respiratory effort. Minimal crackles. No wheezes or rhonchi. 6.GI: Soft, Nontender/Nondistended, No hepatosplenomegaly. No guarding or rebound. No suprapubic pain or tenderness. No bloating or distention. Penis demonstrates no penile tenderness. No active leaking or urinating at this time. No evidence of urinary retention. 7.MSK: Normocephalic/Atraumatic, Extremities w/o deformity or ttp No cyanosis or clubbing, Normal movement of all extremities 8.Skin: Warm, Dry. No rashes or lesions. 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 Sensation grossly intact, no focal neurologic deficits. 10.Psych: (AAO) x3. Appropriate mood and affect Course Vital Signs Vital signs: Vital Signs Temperature 36.4 C 06/28/22 16:32 Pulse 82 06/28/22 16:32 Respiratory Rate 22 06/28/22 16:32 Blood Pressure 158/102 H 06/28/22 16:32 Pulse Oximetry 100 06/28/22 16:32 Temperature 36.4 C 06/28/22 16:32 Temperature Source Temporal Artery Scan 06/28/22 16:32 Pulse 82 06/28/22 16:32 Respiratory Rate 22 06/28/22 16:32 Respiratory Effort Non-Labored 06/28/22 16:28 Blood Pressure 158/102 H 06/28/22 16:32 Pulse Oximetry 100 06/28/22 16:32 Oxygen Delivery Method Room Air 06/28/22 16:32 Oxygen Flow Rate 0 06/28/22 16:32
[2022-06-28 16:51] LABS: Bilirubin Negative (Negative); Blood Trace-intact (Negative); Clarity Clear (Clear); Glucose Negative (Negative); Ketones Negative (Negative); Leukocyte Esterase Trace (Negative); Nitrite Negative (Negative); Urobilinogen 0.2 EU/dL (Up TO 0.2)
[2022-06-28 17:04] LABS: Bacteria Few HPF (Negative); C & S Indicated? Yes; Casts Negative LPF (Negative); Crystals Negative HPF (Negative); Epithelial Cells Rare HPF (Negative); Mucus Negative (Negative); RBC 0-2 HPF (0-2)
[2022-06-28] MEDS: Fosfomycin Tromethamine 3 GM PACKET PO (17:26)
--- NOTE | 2022-06-28 17:55 | NUR.NOTE ---
pt provided with briefs and a urinal
== END 2022-06-28 18:06 | disposition home or self-care (01) ==
LOC: ER 18:06
PROVIDERS: Emergency Provider Student in an Organized Health Care Education/Training Program; PCP Family Medicine
DX: N39.0 Urinary tract infection, site not specified (principal); I11.0 Hypertensive heart disease with heart failure; I50.30 Unspecified diastolic (congestive) heart failure; I25.10 Atherosclerotic heart disease of native coronary artery without angina pectoris; I48.91 Unspecified atrial fibrillation; J43.9 Emphysema, unspecified; E11.9 Type 2 diabetes mellitus without complications; Z86.16 Personal history of COVID-19; Z95.1 Presence of aortocoronary bypass graft
CPT/HCPCS: 87077; 99283; 81003; 81015; 87086; 87186; 99284; J3490

== ENCOUNTER → 2022-07-01 15:40 | Outpatient (BNVA) | payer MEDICARE, MEDICAID, SELFPAY | PROVIDERS: PCP Family Medicine; Referring Provider Family Medicine; Visit Provider Nurse Practitioner Gerontology | DX: R33.9 Retention of urine, unspecified (principal) | CPT/HCPCS: 51798; 99214 ==

== ENCOUNTER 2022-07-19 14:48 | Inpatient (IN) | payer MEDICARE, MEDICAID, SELFPAY ==
[2022-07-19] VITALS (195 sets, daily range): BP systolic 68–151; BP diastolic 24–124; PULSE 69–113; RESP 0–28; TEMP 37–38.7; O2SAT 55–100
--- NOTE | 2022-07-19 15:00 | RT.EKG_ITS ---
APPROVED REPORT Exam: Resting ECG Reason for Exam: sob Patient Location: E HR:88 bpm ECG Measurements Heart Rate 88 AXIS OR [id number] P [id number] QRSd 87 QRS 74 QT 380 T 52 QTc 460 Conclusion Atrial fibrillation...V-rate 70-101, irreg A-activity Low voltage, extremity leads...all extremity leads <0.5mV Consider anteroseptal infarct...Q >30mS, dimin R, V1-V2. Afib. Normal axis. Low voltage. No STEMI. I have reviewed and interpreted ECG and agree with software generated interpretation.
--- NOTE | 2022-07-19 15:00 | DI.RAD_ITS ---
Exam(s) XR PORTABLE CHEST AP EXAM: XR PORTABLE CHEST AP CLINICAL HISTORY: weak, fever, sob, r/o acute disease TECHNIQUE: 2D digital imaging was performed. COMPARISON: CT CT ABDOMEN PELVIS W from 09/17/2021 CR XR CHEST 2V PA LATERAL from 11/05/2021 CR,XR XR PORTABLE CHEST AP from 01/26/2022 CR XR PORTABLE CHEST AP from 05/19/2022 FINDINGS: Exam limited by patient inability to cooperate. The chin partially obscures the upper lobes. There is also overlying oxygen tubing. LUNGS: New large infiltrate in the left upper lobe. Question of increasing densities also seen in th e right upper lobe. Lungs suboptimally inflated. Basilar infiltrates also could be obscured by kady della pull-through.. HEART: Enlarged, unchanged. AORTA: Normal diameter. BONES: Unremarkable for age. Soft tissues: Unremarkable. IMPRESSION: Left upper lobe pneumonia. Question additional right upper lobe infiltrate. DATA REPOSITORY: RADIATION DOSE DELIVERED:
--- NOTE | 2022-07-19 15:10 | ED.GENADUL_ITS ---
Discharge Plan Disposition Patient Disposition: Admit to [facility] Discharge Details Clinical Impression: Pneumonia, Septic shock, Hypoxia Primary Care Provider: Silvina Perdue ED Provider: Yun Rosas Home Meds and New Rx's Prescriptions: No Action furosemide [Lasix] 20 mg tablet 20 mg PO QAM Patient Comments: pt states he has not picked up this med Combivent Respimat 20-100 mcg/actuation mist 1 puff inhalation Q6H PRN Medical Decision Making 1450 -- 71-year-old male with history of CHF, CAD, diabetes, GERD, history of esophageal and gastric cancer, failure to thrive, poor hygiene, and alcohol and tobacco abuse presents from home for increasing weakness and shortness of breath with activity. Oxygen saturation 81% on room air on arrival and placed on nonrebreather, oxygen saturation now 93%. He appears in mild respiratory distress and able to answer questions in 3-4 word sentences. He has crackles throughout. He has bilateral pedal edema. Able to obtain a rectal temp which was 101.6. Differential diagnosis includes pneumonia, COVID, influenza, RSV, UTI, bronchitis, in addition to possible acute CHF exacerbation. Will place patient on BiPAP. Will give a dose of IV Tylenol, DuoNeb, IV Lasix and reassess. Will obtain screening labs, portable chest x-ray, fluvid and ua. 1530 --patient now more hypotensive. Blood pressure 78/47. As he is febrile and suspect infectious process, will give small fluid bolus. His breath sounds of somewhat improved after DuoNeb. We will hold Lasix at this time. Patient was briefly taken off BiPAP after hypotensive but will place back on due to concern for giving diuretics or IV nitro for CHF at this time secondary to hypotension. 1555 -- Bedside ultrasound noted hypodynamic ventricular function, right worse than left. Thickened left ventricular wall. No obvious pericardial effusion. Patient still hypotensive after 250 bolus at 82/57. Will start nor epi. Will give Lasix after nor epi. 1620 --BP improving on pressors. Chest x-ray notes left upper lobe pneumonia and possible right upper lobe pneumonia. Last hospital admission October 2021. Lactate 3.6. We will start IV Zithromax and Rocephin. BNP is elevated to 6151 compared to recent baseline around 3000. Fluvid negative. Troponin negative. WBC 15.5. Urinalysis notes 3-5 WBCs, rare bacteria, trace leukocyte esterase, negative nitrite. We will give additional IV fluids and continue to titrate down pressors. Patient breathing more comfortably on BiPAP. 1700 -- Continuing to titrate down pressors and blood pressure holding steady. Able to titrate off BiPAP and now on room air with oxygen saturation 90 to 91% and he appears comfortable. ABG notes a pH of 7.4, PCO2 30, PO2 50, on room air. Case d/w hospitalist who accepts pt for admission. Medical Records Medical records reviewed: Yes I reviewed the patient's medical records. Imaging Data Radiologic Study: Radiologist's impression: XR PORTABLE CHEST AP CLINICAL HISTORY:? weak, fever, sob, r/o acute disease TECHNIQUE:? 2D digital imaging was performed. COMPARISON:? CT CT ABDOMEN ? PELVIS W from 09/17/2021 CR XR CHEST 2V PA ? LATERAL from 11/05/2021 CR,XR XR PORTABLE CHEST AP from 01/26/2022 CR XR PORTABLE CHEST AP from 05/19/2022 FINDINGS: Exam limited by patient inability to cooperate.? The chin partially obscures the upper lobes.? There is also overlying oxygen tubing. LUNGS: New large infiltrate in the left upper lobe.? Question of increasing dens ities also seen in the right upper lobe.? Lungs suboptimally inflated.? Basilar infiltrates also could be obscured by gastric pull-through.. HEART: Enlarged, unchanged. AORTA: Normal diameter. BONES: Unremarkable for age.? Soft tissues: Unremarkable. IMPRESSION: Left upper lobe pneumonia.? Question additional right upper lobe infiltrate. Lab Data Lab results reviewed: Yes I reviewed the patient's lab results. Labs: 07/19/22 16:15 Blood Blood Culture - Pending 07/19/22 16:00 Blood Blood Culture - Pending Laboratory Tests Range/Units 07/19/22 07/19/22 07/19/22 15:30 15:30 15:30 WBC (4.4-10.8) 10^3/uL 15.50 H RBC (4.36-5.78) 10^6/uL 4.25 L Hgb (13.5-17.5) g/dL 13.2 L Hct (40.0-50.0) % 43.0 MCV (80-95) fL 101 H MCH (27.0-33.0) pg 31.1 MCHC (32.0-36.0) % 30.7 L RDW (11.8-14.1) % 14.5 H Plt Count (130-400) 10^3/uL 255 MPV (8.0-11.0) fL 9.9 Immature Gran % 0.9 Neutrophils % 86.4 Lymphocytes % 6.6 Monocytes % 5.8 Eosinophils % 0.1 Basophils % 0.2 Nucleated RBC % (0.0-0.3) % 0.0 Absolute Neutrophils (1.2-6.7) 10^3/uL 13.39 H Absolute Lymphocytes (1.2-3.4) 10^3/uL 1.02 L Absolute Monocytes (0.1-0.8) 10^3/uL 0.90 H Absolute Eosinophils (0.0-0.7) 10^3/uL 0.02 Absolute Basophils (0.0-0.2) 10^3/uL 0.03 ABG Sample Site ABG pH (7.35-7.45) ABG pCO2 (35-45) mmHg ABG pO2 (80-105) mmHg ABG HCO3 (22-26) mmol/L ABG Total CO2 (23-27) mmol/L ABG O2 Saturation (95-98) % ABG Base Excess (-2-3) mmol/L VBG Lactate (0.6-1.4) mmol/L Oxygen Liter Flow L FiO2 % Sodium (136-145) mmol/L 140 Potassium (3.5-5.1) mmol/L 3.8 Chloride (98-107) mmol/L 103 Carbon Dioxide (21.0-32.0) mmol/L 21.3 Anion Gap (3-11) mmol/L 15.7 H BUN (7-18) mg/dL 27 H Creatinine (0.70-1.30) mg/dL 1.3 Est GFR (CKD-EPI 2020) (mL/min/1.73m2) 58.73 Glucose (74-106) mg/dL 194 H Calcium (8.5-10.1) mg/dL 9.0 Magnesium (1.8-2.4) mg/dL 1.9 Total Bilirubin (0.2-1.0) mg/dL 1.1 H AST (15-37) U/L 44 H ALT (16-63) U/L 23 Alkaline Phosphatase (46-116) U/L 173 H Troponin I (<or=60) ng/L < 50 NT-Pro-B Natriuret Pep (<300) pg/mL Total Protein (6.4-8.2) g/dL 7.8 Albumin (3.4-5.0) g/dL 3.0 L Urine Color (Yellow) Urine Clarity (Clear) Urine pH (5-8) Ur Specific Marston (1.005-1.025) Urine Protein (Negative) mg/dL Urine Ketones (Negative) mg/dL Urine Blood (Negative) Urine Nitrite (Negative) Urine Bilirubin (Negative) Urine Urobilinogen (Up TO 0.2) EU/dL Ur Leukocyte Esterase (Negative) Urine RBC (0-2) HPF Urine WBC (0-5) HPF Ur Epithelial Cells (Negative) HPF Urine Crystals (Negative) HPF Urine Bacteria (Negative) HPF Urine Casts (Negative) LPF Urine Mucus (Negative) Ur Culture Indicated? Urine Glucose (Negative) mg/dL COVID-19 Source Nasopharynx SARS-CoV-2 (PCR) (Negative) Negative Influenza Type A (PCR) (Negative) Negative Influenza Type B (PCR) (Negative) Negative RSV (PCR) (Negative) Negative Range/Units 07/19/22 07/19/22 07/19/22 15:30 16:00 16:24 WBC (4.4-10.8) 10^3/uL RBC (4.36-5.78) 10^6/uL Hgb (13.5-17.5) g/dL Hct (40.0-50.0) % MCV (80-95) fL MCH (27.0-33.0) pg MCHC (32.0-36.0) % RDW (11.8-14.1) % Plt Count (130-400) 10^3/uL MPV (8.0-11.0) fL Immature Gran % Neutrophils % Lymphocytes % Monocytes % Eosinophils % Basophils % Nucleated RBC % (0.0-0.3) % Absolute Neutrophils (1.2-6.7) 10^3/uL Absolute Lymphocytes (1.2-3.4) 10^3/uL Absolute Monocytes (0.1-0.8) 10^3/uL Absolute Eosinophils (0.0-0.7) 10^3/uL Absolute Basophils (0.0-0.2) 10^3/uL ABG Sample Site ABG pH (7.35-7.45) ABG pCO2 (35-45) mmHg ABG pO2 (80-105) mmHg ABG HCO3 (22-26) mmol/L ABG Total CO2 (23-27) mmol/L ABG O2 Saturation (95-98) % ABG Base Excess (-2-3) mmol/L VBG Lactate (0.6-1.4) mmol/L 3.6 H* Oxygen Liter Flow L FiO2 % Sodium (136-145) mmol/L Potassium (3.5-5.1) mmol/L Chloride (98-107) mmol/L Carbon Dioxide (21.0-32.0) mmol/L Anion Gap (3-11) mmol/L BUN (7-18) mg/dL Creatinine (0.70-1.30) mg/dL Est GFR (CKD-EPI 2020) (mL/min/1.73m2) Glucose (74-106) mg/dL Calcium (8.5-10.1) mg/dL Magnesium (1.8-2.4) mg/dL Total Bilirubin (0.2-1.0) mg/dL AST (15-37) U/L ALT (16-63) U/L Alkaline Phosphatase (46-116) U/L Troponin I (<or=60) ng/L NT-Pro-B Natriuret Pep (<300) pg/mL 6151 H Total Protein (6.4-8.2) g/dL Albumin (3.4-5.0) g/dL Urine Color (Yellow) Yellow Urine Clarity (Clear) Clear Urine pH (5-8) 6.0 Ur Specific Marston (1.005-1.025) 1.020 Urine Protein (Negative) mg/dL 100 H Urine Ketones (Negative) mg/dL Negative Urine Blood (Negative) Trace-lysed H Urine Nitrite (Negative) Negative Urine Bilirubin (Negative) Negative Urine Urobilinogen (Up TO 0.2) EU/dL 1.0 H Ur Leukocyte Esterase (Negative) Trace H Urine RBC (0-2) HPF 5-10 H Urine WBC (0-5) HPF 3-5 Ur Epithelial Cells (Negative) HPF Moderate Urine Crystals (Negative) HPF Negative Urine Bacteria (Negative) HPF Rare Urine Casts (Negative) LPF Negative Urine Mucus (Negative) Negative Ur Culture Indicated? No Urine Glucose (Negative) mg/dL Negative COVID-19 Source SARS-CoV-2 (PCR) (Negative) Influenza Type A (PCR) (Negative) Influenza Type B (PCR) (Negative) RSV (PCR) (Negative) Range/Units 07/19/22 16:52 WBC (4.4-10.8) 10^3/uL RBC (4.36-5.78) 10^6/uL Hgb (13.5-17.5) g/dL Hct (40.0-50.0) % MCV (80-95) fL MCH (27.0-33.0) pg MCHC (32.0-36.0) % RDW (11.8-14.1) % Plt Count (130-400) 10^3/uL MPV (8.0-11.0) fL Immature Gran % Neutrophils % Lymphocytes % Monocytes % Eosinophils % Basophils % Nucleated RBC % (0.0-0.3) % Absolute Neutrophils (1.2-6.7) 10^3/uL Absolute Lymphocytes (1.2-3.4) 10^3/uL Absolute Monocytes (0.1-0.8) 10^3/uL Absolute Eosinophils (0.0-0.7) 10^3/uL Absolute Basophils (0.0-0.2) 10^3/uL ABG Sample Site Left Radial ABG pH (7.35-7.45) 7.43 ABG pCO2 (35-45) mmHg 38 ABG pO2 (80-105) mmHg 51 L ABG HCO3 (22-26) mmol/L 25 ABG Total CO2 (23-27) mmol/L 23 ABG O2 Saturation (95-98) % 87 L ABG Base Excess (-2-3) mmol/L 1 VBG Lactate (0.6-1.4) mmol/L Oxygen Liter Flow L BIPAP 10/5 FiO2 % 21 Sodium (136-145) mmol/L Potassium (3.5-5.1) mmol/L Chloride (98-107) mmol/L Carbon Dioxide (21.0-32.0) mmol/L Anion Gap (3-11) mmol/L BUN (7-18) mg/dL Creatinine (0.70-1.30) mg/dL Est GFR (CKD-EPI 2020) (mL/min/1.73m2) Glucose (74-106) mg/dL Calcium (8.5-10.1) mg/dL Magnesium (1.8-2.4) mg/dL Total Bilirubin (0.2-1.0) mg/dL AST (15-37) U/L ALT (16-63) U/L Alkaline Phosphatase (46-116) U/L Troponin I (<or=60) ng/L NT-Pro-B Natriuret Pep (<300) pg/mL Total Protein (6.4-8.2) g/dL Albumin (3.4-5.0) g/dL Urine Color (Yellow) Urine Clarity (Clear) Urine pH (5-8) Ur Specific Marston (1.005-1.025) Urine Protein (Negative) mg/dL Urine Ketones (Negative) mg/dL Urine Blood (Negative) Urine Nitrite (Negative) Urine Bilirubin (Negative) Urine Urobilinogen (Up TO 0.2) EU/dL Ur Leukocyte Esterase (Negative) Urine RBC (0-2) HPF Urine WBC (0-5) HPF Ur Epithelial Cells (Negative) HPF Urine Crystals (Negative) HPF Urine Bacteria (Negative) HPF Urine Casts (Negative) LPF Urine Mucus (Negative) Ur Culture Indicated? Urine Glucose (Negative) mg/dL COVID-19 Source SARS-CoV-2 (PCR) (Negative) Influenza Type A (PCR) (Negative) Influenza Type B (PCR) (Negative) RSV (PCR) (Negative) ECG Data Attestation: I personally reviewed and interpreted this ECG (s) as follows: Interpretation: rate of 88, afib, low voltage, no stemi. HPI General Mode of arrival: ambulatory . Date/Time Provider Initiated Documentation: 07/19/22 14:49 . Limitations to Documentation: no limitations . Information obtained by: patient . HPI Narrative: Patient is a 71-year-old male with history of CHF, CAD, diabetes, GERD, history of esophageal and gastric cancer, failure to thrive, poor hygiene, and alcohol and tobacco abuse presents from home for increasing weakness and shortness of breath with activity. EMS reports that patient complained of shortness of breath and was noted to have lower extremity edema with oxygen saturation of 91% on room air and speaking in 3-4 word sentences. Patient states he uses a cane at home at baseline with ambulation. Patient states he asked his roommate to call EMS today because he felt too weak to ambulate for the past few days, worse today. He states he has been eating at his baseline and last ate breakfast this morning. He denies any known fever, vomiting, diarrhea, chest pain or abdominal pain. He states he is unsure if he took his Lasix today. He states he does not use oxygen at home. He states he is a full code. Related Data Home Medications Medication Instructions Recorded Confirmed ipratropium 20 mcg-albuterol 100 1 puff inhalation Q6H PRN 06/10/22 06/28/22 mcg/actuation mist for inhalation (Combivent Respimat) furosemide 20 mg tablet (Lasix) 20 mg PO QAM 06/24/22 06/28/22 Allergies Allergy/AdvReac Type Severity Reaction Status Date / Time No Known Allergies Allergy Verified 06/28/22 16:30 General Stated Complaint: RespSymp ANAMIKA: 2 Review of Systems All systems reviewed & are unremarkable except as noted in HPI and below Constitutional Constitutional: Reports as per HPI, Denies chills, Denies fever(s) and Reports weakness Eyes Eyes: Denies blurry vision ENT Ears, Nose, Mouth, and Throat: Denies dizziness, Denies sore throat and Denies throat swelling Cardiovascular Cardiovascular: Denies chest pain and Reports dyspnea on exertion Respiratory Respiratory: Denies cough and Reports dyspnea on exertion Gastrointestinal Gastrointestinal: Denies abdominal pain, Denies diarrhea and Denies vomiting Genitourinary Genitourinary: Denies hematuria and Denies dysuria Musculoskeletal Musculoskeletal: Denies back pain and Denies numbness Integumentary/Breasts Skin/Breast: Denies lesions and Denies rash Neurologic Neurologic: Denies dizziness, Denies localized weakness, Denies numbness and Reports weakness Allergic/Immunologic Allergic/Immunologic: Denies throat swelling PFSH All Active Problems (Updated 07/19/22 @ 16:59 by Yun Rosas DO) Acute UTI (Acute) Pneumonia (Acute) Septic shock (Acute) Hypoxia (Acute) Mild peripheral edema (Acute) Depression (Chronic) Dental abscess (Acute) 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) Abnormal chest CT (Acute) Full code status (Acute) Urinary tract infection (Acute) 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) CAP (community acquired pneumonia) (Acute) Generalized weakness (Acute) Skin tear of left elbow without complication (Acute) Chronic obstructive lung disease (Chronic) Tricuspid regurgitation (Chronic) CAD (coronary artery disease) (Chronic) Hypertension (Chronic) Medical History Abdominal pain Abnormal radiologic findings on diagnostic imaging of renal pelvis, ureter, or bladder Acute on chronic anemia Acute on chronic diastolic (congestive) heart failure Acute on chronic systolic CHF (congestive heart failure) Adenocarcinoma of esophagus From [facility] [place]:Hx GI Cancer...EGD 04/2021 with friable mucosa. SDOne at that time because of GI blooed Afib Alcohol abuse Alcohol abuse, continuous drinking behavior Anemia Bilateral lower extremity edema CAD (coronary artery disease) of artery bypass graft Cerumen impaction CHF, acute on chronic Confusion state COVID-19 COVID-19 Diabetes mellitus Difficulty reading Edema Encounter for colorectal cancer screening Epididymitis, right (08/02/16) Essential hypertension Failure to thrive Fall GERD (gastroesophageal reflux disease) GI bleed GI bleeding H/O malignant neoplasm of stomach Heart failure, left, with LVEF 41-49% History of GI bleed Hoarseness Hydrocele, right (01/23/16) Hyperlipidemia Hypokalemia Hypophosphatemia Kyphoscoliosis Low back pain Malnutrition Mild bibasilar atelectasis Palliative care encounter Pancreatitis Poor hygiene Prediabetes Protein malnutrition Pulmonary hypertension Recent weight loss Rib fractures Shortness of breath Solitary pulmonary nodule Tinnitus, left Tobacco abuse Weight loss Surgical History cardiac cath Coronary Artery Bypass Gaft (CABG) EGD - IV Sedation Esophagectomy H/O colonoscopy (2007) H/O colonoscopy (04/14/18) dr geller, sigmoid diverticulosis, repeat 10 years History of esophagogastroduodenoscopy (EGD) (09/2017) History of hydrocelectomy History of right inguinal hernia repair repair times two sugrical flap of unhealing wound Family History Mother No problems noted. Father No problems noted. Social History Smoking/Tobacco Use Status: Current every day Tobacco Type: cigarettes Smoking packs per day: 1 Smoking cigarettes per day: 20.0 Years smoked: 50 Smoking pack- years: 50.00 Smoking risk assessment performed?: Yes Alcohol Intake: former Drug use: Never Substance use type: does not use What type of physical activity do you participate in: none Do you feel safe at home: Yes Do you feel safe in your relationship?: Yes Exam Const General: cooperative, disheveled and ill appearing chronically Nutritional Appearance: thin Orientation: alert, awake and oriented x3 HENMT Head: normal to inspection Face and sinus: normal facial exam Mouth: moist mucous membranes Eyes General: appearance normal, both eyes and all related structures Pupils: PERRL EOM: EOM intact bilaterally Neck Neck: normal visual inspection and No submandibular swelling Lymphatic: no lymphadenopathy noted Chest Chest: normal inspection of the chest and no tenderness Resp Effort & Inspection: normal respiratory effort and able to speak in complete sentences Auscultation: crackles bilaterally throughout Cardio Rate: regular rate Rhythm: regular rhythm GI Inspection: normal to inspection Palpation: soft, not firm, not rigid and nontender Auscultation: hypoactive bowel sounds Male General Exam: Yes normal external exam Back/Spine/Pelvis Thoracic/Lumbar Spine: thoracic and lumbar spine normal to inspection Skin General skin exam: no rashes or lesions noted Neuro General: patient alert, patient awake and patient oriented x3 Cognition: normal cognition Speech: speech normal Motor: muscle tone normal throughout Sensory Exam: no sensory deficits noted Extrem General: full ROM, capillary refill normal and no calf tenderness bilaterally Upper/lower leg/hip images: 1. 2+ pitting edema b/l lower extremities extending from distal lower legs into feet. No erythema. Distal pulses intact b/l. Psych Appearance: grossly normal Mental Status: mental status grossly normal Speech and Movement: speech and movement normal Affect: normal affect Course Vital Signs Vital signs: Vital Signs Temperature 101.6 F H 07/19/22 14:56 Pulse 92 H 07/19/22 14:56 Respiratory Rate 28 H 07/19/22 14:56 Blood Pressure 105/60 07/19/22 14:56 Pulse Oximetry 81 L 07/19/22 14:56 Temperature 101.6 F H 07/19/22 14:56 Temperature Source Rectal 07/19/22 14:56 Pulse 92 H 07/19/22 14:56 Respiratory Rate 28 H 07/19/22 14:56 Blood Pressure 105/60 07/19/22 14:56 Blood Pressure Position Sitting 07/19/22 14:56 Pulse Oximetry 81 L 07/19/22 14:56 Oxygen Delivery Method Room Air 07/19/22 14:56 Oxygen Flow Rate 0 07/19/22 14:56 Critical Care Time Critical Care Time Critical Care Time: Yes Total Critical Care Time: 60 Attestation: I spent 60 minutes of critical care time with this patient. This does not include time spent on separately reported billable procedures.
[2022-07-19] MEDS: Albuterol/Ipratropium 3 ML UPD VIAL UPD ×3 (15:13→23:25)
[2022-07-19] MEDS: ACETAMINOPHEN 1,000 MG/100 ML BTL 400 MG IVPB (15:14)
[2022-07-19] MEDS: Normal Saline 250 ML IV (15:39)
[2022-07-19 15:41] LABS: Abs Immature Grans 0.14 10^3/uL (0.0-0.06); Absolute Basophil Count 0.03 10^3/uL (0.0-0.2); Absolute Eosinophil Count 0.02 10^3/uL (0.0-0.7); Absolute Lymphocyte Count 1.02 10^3/uL (1.2-3.4); Absolute Neutrophil Count 13.39 10^3/uL (1.2-6.7); Basophils % 0.2; Eosinophils % 0.1; HGB 13.2 g/dL (13.5-17.5); Immature Grans % 0.9; Lymphocytes % 6.6; MCH 31.1 pg (27.0-33.0); MCHC 30.7 % (32.0-36.0); MCV 101 fL (80-95); MPV 9.9 fL (8.0-11.0); Monocytes % 5.8; Neutrophils % 86.4; Platelet Count 255 10^3/uL (130-400); RBC 4.25 10^6/uL (4.36-5.78); RDW 14.5 % (11.8-14.1); RDW-SD 54.7 fL
[2022-07-19] MEDS: Norepinephrine in D5W 8 MG/250 ML BAG 49.924 MG IV (15:57)
[2022-07-19] MEDS: Furosemide 40 MG/4 ML VIAL IVP (15:57)
[2022-07-19 16:00] LABS: ALT 23 U/L (16-63); AST 44 U/L (15-37); Alkaline Phosphatase 173 U/L (46-116); Anion Gap 15.7 mmol/L (3-11); BUN 27 mg/dL (7-18); Bilirubin, Total 1.1 mg/dL (0.2-1.0); CO2 21.3 mmol/L (21.0-32.0); CREATININE 1.3 mg/dL (0.70-1.30); Chloride 103 mmol/L (98-107); Estimated GFR 58.73 (mL/min/1.73m2); Glucose 194 mg/dL (74-106); Magnesium 1.9 mg/dL (1.8-2.4); Potassium 3.8 mmol/L (3.5-5.1); Sodium 140 mmol/L (136-145); Total Protein 7.8 g/dL (6.4-8.2); Troponin I < 50 ng/L (<or=60)
[2022-07-19 16:05] LABS: NT-proBNP 6151 pg/mL (<300)
[2022-07-19 16:12] LABS: Bilirubin Negative (Negative); Blood Trace-lysed (Negative); Clarity Clear (Clear); Glucose Negative (Negative); Ketones Negative (Negative); Leukocyte Esterase Trace (Negative); Nitrite Negative (Negative)
[2022-07-19 16:15] LABS: COVID-19 PCR Negative (Negative); Influenza A PCR Negative (Negative); Influenza B PCR Negative (Negative); RSV PCR Negative (Negative)
[2022-07-19 16:19] LABS: Source Nasopharynx
[2022-07-19] MEDS: cefTRIAXone 2 GM/50 ML BAG IVPB (16:26)
[2022-07-19] MEDS: Normal Saline 500 ML IV (16:30)
[2022-07-19 16:31] LABS: Bacteria Rare HPF (Negative); C & S Indicated? No; Casts Negative LPF (Negative); Crystals Negative HPF (Negative); Epithelial Cells Moderate HPF (Negative); Mucus Negative (Negative)
[2022-07-19 16:35] LABS: Lactate 3.6 mmol/L (0.6-1.4)
[2022-07-19 16:53] LABS: BE 1 mmol/L (-2-3); HCO3 25 mmol/L (22-26); pCO2 38 mmHg (35-45); pH 7.43 (7.35-7.45); pO2 51 mmHg (80-105); sO2 87 % (95-98); tCO2 23 mmol/L (23-27)
[2022-07-19 16:56] LABS: FIO2 21 %; Site Left Radial
[2022-07-19] MEDS: AZITHROMYCIN 500 MG in Normal Saline 250 ML 250 MG IVPB (17:15)
[2022-07-19 17:16] LABS: Lab Add On Test DONE
[2022-07-19 17:32] LABS: C-Reactive Protein 3.52 mg/dL (0.0-0.3)
[2022-07-19 17:42] LABS: Lactate 3.2 mmol/L (0.6-1.4)
[2022-07-19 18:01] LABS: Procalcitonin 0.2 ng/mL
[2022-07-19] MEDS: Normal Saline Flush 10 ML SYR IVP (18:51)
[2022-07-19] MEDS: methylPREDNISolone SUCC 125 MG VIAL IVP (18:51)
--- NOTE | 2022-07-19 19:09 | W.PM.HP.N ---
Date of service: 07/19/22 Time of Service: 19:10 Assessment and Plan Assessment and plan (1) Septic shock: Status: Acute Assessment and plan: Due to PNA and UTI, present on admission. Admit to ICU with empiric antibiotics (azithromycin, ceftriaxone). Wean norepinephrine as able. Trend lactates. Await blood and urine culture results. (2) Pneumonia: Status: Acute Assessment and plan: As above Will also culture sputum and obtain urine legionella, strep, and sputum mycoplasma studies. (3) Acute UTI: Status: Acute Assessment and plan: as above Patient has a h/o urinary retention. Will need renal US. (4) Acute respiratory failure with hypoxia: Status: Acute Assessment and plan: Multifactorial - due to acute on chronic CHF, COPD exacerbation, PNA. As above I do not think that he needs BiPAp based on the ABG result. Should he require PEEP, would do better with a humidified heated cannula or CPAP. (5) Acute on chronic right-sided congestive heart failure: Status: Acute Assessment and plan: Will hold off of diuresis at this time until BP better and vasopressors no longer necessary. Obtain echo. (6) Acute exacerbation of chronic obstructive pulmonary disease (COPD): Status: Acute Assessment and plan: Treat with steroids, nebs, abx as above. (7) DVT prophylaxis: Status: Acute Assessment and plan: SC enoxaparin (8) Discharge planning issues: Status: Acute Assessment and plan: Full code Admit to the ICU Total Critical Care Time 60 minutes. History of Present Illness History of Present Illness Chief Complaint: I don't know why I'm here Narrative: Mr Kang is a 71 year old male with PMHx of non-oxygen dependent COPD, pulmonary fibrosis, CAD, CHF w/ LVEF of 60^ and RVSP of 45 mmHg, esophageal and gastric cancers, chronic bilateral lower extremity edema, who was brought to [facility] ED w/ weakness and shortness of breath. The patient cannot tell me why he is here, and I am obtaining the history primarily through the ER chart. The patient was brought to the ER by EMS. When EMS first evaluated him, he was reportedly saturating 91% on RA and speaking in 3-4 word sentences. By the time he arrived to the ER, he needed a nonrebreathing, saturating 81%. He was febrile to 101.6 rectally. He was clinically fluid overloaded and started on BiPAP. His imaging also revealed a pneumonia. The patient became hypotensive before furosemide had a chance to be given. His lactate was 3.6. He was started on ceftriaxone and azithromycin. He was given a small fluid bolus, was initiated on norepinephrine and also received furosemide. Hospitalist admission was requested. The patient denies dizziness, chest pain, shortness of breath, fever. He does express that he is hungry. He states he gets meals on wheels and that his roommate cooks. Review of Systems All systems reviewed & are unremarkable except as noted in HPI and below PFSH All Active Problems (Updated 07/19/22 @ 19:38 by Shakila Mayberry MD) Acute respiratory failure with hypoxia (Acute) Discharge planning issues (Acute) DVT prophylaxis (Acute) Acute exacerbation of chronic obstructive pulmonary disease (COPD) (Acute) Acute on chronic right-sided congestive heart failure (Acute) Acute UTI (Acute) Pneumonia (Acute) Septic shock (Acute) Hypoxia (Acute) Mild peripheral edema (Acute) Depression (Chronic) Dental abscess (Acute) 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) Abnormal chest CT (Acute) Full code status (Acute) Urinary tract infection (Acute) 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) CAP (community acquired pneumonia) (Acute) Generalized weakness (Acute) Skin tear of left elbow without complication (Acute) Chronic obstructive lung disease (Chronic) Tricuspid regurgitation (Chronic) CAD (coronary artery disease) (Chronic) Hypertension (Chronic) Medical History Abdominal pain Abnormal radiologic findings on diagnostic imaging of renal pelvis, ureter, or bladder Acute on chronic anemia Acute on chronic diastolic (congestive) heart failure Acute on chronic systolic CHF (congestive heart failure) [place] [facility]...EGD 04/2021 with friable mucosa. SDOne at that time because of GI blooed Afib Alcohol abuse Alcohol abuse, continuous drinking behavior Anemia Bilateral lower extremity edema CAD (coronary artery disease) of artery bypass graft Cerumen impaction CHF, acute on chronic Confusion state COVID-19 COVID-19 Diabetes mellitus Difficulty reading Edema Encounter for colorectal cancer screening Epididymitis, right (08/02/16) Essential hypertension Failure to thrive Fall GERD (gastroesophageal reflux disease) GI bleed GI bleeding H/O malignant neoplasm of stomach Heart failure, left, with LVEF 41-49% History of GI bleed Hoarseness Hydrocele, right (01/23/16) Hyperlipidemia Hypokalemia Hypophosphatemia Kyphoscoliosis Low back pain Malnutrition Mild bibasilar atelectasis Palliative care encounter Pancreatitis Poor hygiene Prediabetes Protein malnutrition Pulmonary hypertension Recent weight loss Rib fractures Shortness of breath Solitary pulmonary nodule Tinnitus, left Tobacco abuse Weight loss Surgical History cardiac cath Coronary Artery Bypass Gaft (CABG) EGD - IV Sedation Esophagectomy H/O colonoscopy (2007) H/O colonoscopy (04/14/18) dr geller, sigmoid diverticulosis, repeat 10 years History of esophagogastroduodenoscopy (EGD) (09/2017) History of hydrocelectomy History of right inguinal hernia repair repair times two sugrical flap of unhealing wound Family History Mother No problems noted. Father No problems noted. Social History Smoking/Tobacco Use Status: Current every day Tobacco Type: cigarettes Smoking packs per day: 1 Smoking cigarettes per day: 20.0 Years smoked: 50 Smoking pack-years: 50.00 Smoking risk assessment performed?: Yes Alcohol Intake: former Drug use: Never Substance use type: does not use What type of physical activity do you participate in: none Do you feel safe at home: Yes Do you feel safe in your relationship?: Yes Meds Allergies and Home Medications Allergies Allergy/AdvReac Type Severity Reaction Status Date / Time No Known Allergies Allergy Verified 06/28/22 16:30 Home Medications Medication Instructions Recorded Confirmed Type ipratropium 20 mcg-albuterol 100 1 puff inhalation Q6H PRN 06/10/22 07/19/22 History mcg/actuation mist for inhalation (Combivent Respimat) furosemide 20 mg tablet (Lasix) 20 mg PO QAM 06/24/22 07/19/22 History gabapentin 300 mg capsule 300 mg PO TID 07/19/22 07/19/22 History metoprolol tartrate 25 mg tablet 25 mg PO DAILY 07/19/22 07/19/22 History mirtazapine 7.5 mg tablet 7.5 mg PO DAILY 07/19/22 07/19/22 History Exam Narrative Exam Narrative: General: Cachectic and disheveled appearing [place] male who is mildly tachypneic on RA, does not seem to be aware of it, A&Ox3 (looking at the calendar to get the date), poor history provider, forgetful. Neurological: A&Ox3, forgetful, no focal deficits Psychiatric: flat affect, forgetful, otherwise cooperative and appropriate speech pattern/content Skin: BLEs w/ chronic venous stasis changes, no open lesions on B feet, tinea pedis HEENT: Atraumatic, normocephalic, EOMI, MMM, clear oropharynx, no submandibular or cervical lymphadenopathy, though this is somewhat difficult to truly tell - the patient has a sanchez, no goiter, + 3 cm JVD while sitting up in bed Cardiovascular: RRR, no m/r/g Lungs: Rales B Gastrointestinal: soft, nontender, nondistended; s/p rib resection on L Genitourinary: has a cervantes Extremities: 3+ BLE edema mid-stanley, I am unable to palpate pedal pulses Results Imaging Additional studies: CXR; Left upper lobe pneumonia.? Question additional right upper lobe infiltrate. Labs 07/19/22 15:30 07/19/22 15:30 Labs: Laboratory Results - last 24 hr 07/19/22 07/19/22 07/19/22 15:30 15:30 15:30 WBC 15.50 H RBC 4.25 L Hgb 13.2 L Hct 43.0 MCV 101 H MCH 31.1 MCHC 30.7 L RDW 14.5 H Plt Count 255 MPV 9.9 Immature Gran % 0.9 Neutrophils % 86.4 Lymphocytes % 6.6 Monocytes % 5.8 Eosinophils % 0.1 Basophils % 0.2 Nucleated RBC % 0.0 Absolute Neutrophils 13.39 H Absolute Lymphocytes 1.02 L Absolute Monocytes 0.90 H Absolute Eosinophils 0.02 Absolute Basophils 0.03 ABG Sample Site ABG pH ABG pCO2 ABG pO2 ABG HCO3 ABG Total CO2 ABG O2 Saturation ABG Base Excess VBG Lactate Oxygen Liter Flow FiO2 Sodium 140 Potassium 3.8 Chloride 103 Carbon Dioxide 21.3 Anion Gap 15.7 H BUN 27 H Creatinine 1.3 Est GFR (CKD-EPI 2020) 58.73 Glucose 194 H Calcium 9.0 Magnesium 1.9 Total Bilirubin 1.1 H AST 44 H ALT 23 Alkaline Phosphatase 173 H Troponin I < 50 C-Reactive Protein NT-Pro-B Natriuret Pep Total Protein 7.8 Albumin 3.0 L Procalcitonin Urine Color Urine Clarity Urine pH Ur Specific Shields Urine Protein Urine Ketones Urine Blood Urine Nitrite Urine Bilirubin Urine Urobilinogen Ur Leukocyte Esterase Urine RBC Urine WBC Ur Epithelial Cells Urine Crystals Urine Bacteria Urine Casts Urine Mucus Ur Culture Indicated? Urine Glucose COVID-19 Source Nasopharynx SARS-CoV-2 (PCR) Negative Influenza Type A (PCR) Negative Influenza Type B (PCR) Negative RSV (PCR) Negative Add-On Test Request 07/19/22 07/19/22 07/19/22 15:30 16:00 16:00 WBC RBC Hgb Hct MCV MCH MCHC RDW Plt Count MPV Immature Gran % Neutrophils % Lymphocytes % Monocytes % Eosinophils % Basophils % Nucleated RBC % Absolute Neutrophils Absolute Lymphocytes Absolute Monocytes Absolute Eosinophils Absolute Basophils ABG Sample Site ABG pH ABG pCO2 ABG pO2 ABG HCO3 ABG Total CO2 ABG O2 Saturation ABG Base Excess VBG Lactate Oxygen Liter Flow FiO2 Sodium Potassium Chloride Carbon Dioxide Anion Gap BUN Creatinine Est GFR (CKD-EPI 2020) Glucose Calcium Magnesium Total Bilirubin AST ALT Alkaline Phosphatase Troponin I C-Reactive Protein NT-Pro-B Natriuret Pep 6151 H Total Protein Albumin Procalcitonin Urine Color Yellow Urine Clarity Clear Urine pH 6.0 Ur Specific Shields 1.020 Urine Protein 100 H Urine Ketones Negative Urine Blood Trace-lysed H Urine Nitrite Negative Urine Bilirubin Negative Urine Urobilinogen 1.0 H Ur Leukocyte Esterase Trace H Urine RBC 5-10 H Urine WBC 3-5 Ur Epithelial Cells Moderate Urine Crystals Negative Urine Bacteria Rare Urine Casts Negative Urine Mucus Negative Ur Culture Indicated? No Urine Glucose Negative COVID-19 Source SARS-CoV-2 (PCR) Influenza Type A (PCR) Influenza Type B (PCR) RSV (PCR) Add-On Test Request DONE 07/19/22 07/19/22 07/19/22 16:00 16:00 16:24 WBC RBC Hgb Hct MCV MCH MCHC RDW Plt Count MPV Immature Gran % Neutrophils % Lymphocytes % Monocytes % Eosinophils % Basophils % Nucleated RBC % Absolute Neutrophils Absolute Lymphocytes Absolute Monocytes Absolute Eosinophils Absolute Basophils ABG Sample Site ABG pH ABG pCO2 ABG pO2 ABG HCO3 ABG Total CO2 ABG O2 Saturation ABG Base Excess VBG Lactate 3.6 H* Oxygen Liter Flow FiO2 Sodium Potassium Chloride Carbon Dioxide Anion Gap BUN Creatinine Est GFR (CKD-EPI 2020) Glucose Calcium Magnesium Total Bilirubin AST ALT Alkaline Phosphatase Troponin I C-Reactive Protein 3.52 H NT-Pro-B Natriuret Pep Total Protein Albumin Procalcitonin 0.2 Urine Color Urine Clarity Urine pH Ur Specific Shields Urine Protein Urine Ketones Urine Blood Urine Nitrite Urine Bilirubin Urine Urobilinogen Ur Leukocyte Esterase Urine RBC Urine WBC Ur Epithelial Cells Urine Crystals Urine Bacteria Urine Casts Urine Mucus Ur Culture Indicated? Urine Glucose COVID-19 Source SARS-CoV-2 (PCR) Influenza Type A (PCR) Influenza Type B (PCR) RSV (PCR) Add-On Test Request 07/19/22 07/19/22 16:52 17:36 WBC RBC Hgb Hct MCV MCH MCHC RDW Plt Count MPV Immature Gran % Neutrophils % Lymphocytes % Monocytes % Eosinophils % Basophils % Nucleated RBC % Absolute Neutrophils Absolute Lymphocytes Absolute Monocytes Absolute Eosinophils Absolute Basophils ABG Sample Site Left Radial ABG pH 7.43 ABG pCO2 38 ABG pO2 51 L ABG HCO3 25 ABG Total CO2 23 ABG O2 Saturation 87 L ABG Base Excess 1 VBG Lactate 3.2 H* Oxygen Liter Flow BIPAP 10/5 FiO2 21 Sodium Potassium Chloride Carbon Dioxide Anion Gap BUN Creatinine Est GFR (CKD-EPI 2020) Glucose Calcium Magnesium Total Bilirubin AST ALT Alkaline Phosphatase Troponin I C-Reactive Protein NT-Pro-B Natriuret Pep Total Protein Albumin Procalcitonin Urine Color Urine Clarity Urine pH Ur Specific Shields Urine Protein Urine Ketones Urine Blood Urine Nitrite Urine Bilirubin Urine Urobilinogen Ur Leukocyte Esterase Urine RBC Urine WBC Ur Epithelial Cells Urine Crystals Urine Bacteria Urine Casts Urine Mucus Ur Culture Indicated? Urine Glucose COVID-19 Source SARS-CoV-2 (PCR) Influenza Type A (PCR) Influenza Type B (PCR) RSV (PCR) Add-On Test Request Last Vital Signs Temp 38.7 C H 07/19/22 14:56 Pulse 73 07/19/22 18:31 Resp 17 07/19/22 18:31 BP 100/67 07/19/22 18:31 Pulse Ox 86 L 07/19/22 18:31 Time Spent Time spent with Patient: 55-74 minutes Time was spent: preparing to see the patient(eg.review tests), obtaining and/or reviewing separately otained hiistory, ordering medications,tests, procedures, referring, communicating with other health foster care case manager, indepentently interpreting results, counseling the patient and care coordination
[2022-07-19] MEDS: Enoxaparin 40 MG/0.4 ML SYR SC (19:52)
[2022-07-19] MEDS: Nicotine 14 MG/24 HR PATCH TD (19:52)
[2022-07-19] MEDS: Gabapentin 300 MG CAP PO (19:52)
[2022-07-19 21:03] LABS: Lactate 2.6 mmol/L (0.6-1.4)
[2022-07-20] VITALS (99 sets, daily range): BP systolic 96–140; BP diastolic 48–103; PULSE 70–139; RESP 1–27; TEMP 36.7–37.4; O2SAT 93–100
--- NOTE | 2022-07-20 | DI.US_ITS ---
APPROVED REPORT EXAM: Comprehensive 2D, Doppler, and color-flow Echocardiogram Patient Location: In-Patient Room/Bed: GST141 Route Aide: Anjali Prabhakar RDCS (AE) Indications: CHF Other Information Study Quality: Fair. Technically limited study due to body habitus, inability to position patient exa m done bedside icu supine. Conclusion Normal left ventricular wall thickness and chamber size. Estimated ejection fraction is 60% , there are no segmental wall motion abnormalities Right ventricle is moderately dilated. There is paradoxic septal motion consistent with right ventri cular volume overload The right atrium is moderately dilated. The left atrium is mildly dilated Aortic valve is mildly sclerotic and trileaflet without stenosis or regurgitation Normal mitral valve with mild regurgitation Normal tricuspid valve with moderate to severe regurgitation. Estimated right ventricular systolic p ressure is 53 mmHg Wall motion Left Ventricle The left ventricle is normal size. The left ventricular systolic function is normal. The left ventric ular ejection fraction is within the normal range. There is normal left ventricular wall thickness. T here is normal LV segmental wall motion. Paradoxical septal motion consistent with right ventricular volume overload. There is no ventricular septal defect visualized. LVEF is 55-60%. Right Ventricle Right ventricle is moderately dilated. Right ventricular systolic function is grossly normal. The R VSP is 52.9 mmHg. Atria Left atrium is mildly dilated. Right atrium is moderately dilated. The interatrial septum is intact w ith no evidence for an atrial septal defect. Aortic Valve The Aortic valve is sclerotic. Aortic valve is trileaflet. There is no aortic valvular stenosis. No a ortic regurgitation is present. Mitral Valve The mitral valve is normal in structure. No evidence of mitral valve stenosis. Mild mitral regurgita tion. Tricuspid Valve The tricuspid valve is normal in structure. There is no tricuspid valve stenosis. Moderate to severe tricuspid regurgitation. Pulmonic Valve The pulmonary valve is normal in structure. There is no pulmonic valvular stenosis. Trace pulmonic re gurgitation. Great Vessels The aortic root is normal in size. Ascending aorta is not well visualized. Aortic arch is not well vi sualized. The IVC collapses <50% with inspiration. Pericardium There is no pericardial effusion. 2D Dimensions IVSD d PLAX 1.17 cm M: 0.6-1.2 LV Vol A2C d MOD 67.4 mL LVPW d PLAX 1.13 cm M: 0.6 - 1.2 LV Vol A4C d MOD 67.4 mL LVID d PLAX 3.54 cm M: 4.2 - 5.8 LA vol/ BSA A2C s A-L 19.0 mL/m2 LVDs 2.35 cm M: 2.5 - 4.0 LA Area A2C s MOD 13.24 cm2 Ao Root d 3.19 cm M: 3.1 - 3.7 LV EF A4C MOD 60.0 % LV EF Teichholz 62.3 % LV EF A2C MOD 54.2 % LVEF (Arenas's) 58.50 % M: 52 - 72 LV EF Biplane MOD 58.5 % LV Volume 58.09 mL M: 62 - 150 SV 41.39 mL LV Volume Index 37.23 mL/m2 M: 34 - 74 SV Index 26.58 mL/m2 LV Vol Biplane MOD 70.8 mL FS 32.80 % LV Diastology MV E Vmax 1.15 (0.4-1.3 m/s) Aortic Valve LVOT Area 2.89 cm2 AoV Area Vmax 2.88 cm2 LVOT Vmax 0.97 m/s AoV Area/ BSA (Vmax) 1.85 cm2/m2 LVOT Mean Enoc. 0.57 m/s CHILO Mean Enoc. 2.43 cm2 LVOT Peak Grad 3.8 mmHg CHILO Mean Enoc. Index 1.56 cm2/m2 LVOT Mean Grad 1.6 mmHg LVOT VTI 0.136 m LVOT Diam s 1.90 cm AoV Vmax 0.98 m/s Velocity Ratio 0.99 AoV Mean Enoc. 0.68 m/s AoV Peak Grad 3.8 mmHg LVOT SV 39.41 mL AoV Mean Grad 2.1 mmHg AoV VTI 0.145 m AoV Area VTI 2.72 cm2 AoV Area/ BSA (VTI) 1.75 cm/m2 Mitral Valve MV DT 133 (160-240 msec) MV PHT 38 msec MV Area PHT 5.72 cm2 MV VTI 0.130 m MV Area VTI 3.03 (4.0-6.0 cm2) Pulmonary Valve PV Vmax 0.98 (0.5-1.5 m/s) RVOT Peak Gr. 1.80 mmHg PV Peak Grad 3.8 mmHg RVOT Mean Gr. 0.75 mmHg PV Mean Grad 1.5 mmHg RVOT VTI 0.081 m PV VTI 0.119 m RVOT Vmax 0.67 m/s Tricuspid Valve TR Peak Grad 44.9 mmHg TR Vmax 3.35 m/s RA Pressure 8.00 mmHg RVSP (TR) 52.9 mmHg
[2022-07-20] MEDS: Mirtazapine 15 MG TAB 7.5 MG PO ×2 (00:44→22:38)
[2022-07-20 05:18] LABS: Abs Immature Grans 0.06 10^3/uL (0.0-0.06); Absolute Basophil Count 0.01 10^3/uL (0.0-0.2); Absolute Lymphocyte Count 0.47 10^3/uL (1.2-3.4); Absolute Monocyte Count 0.21 10^3/uL (0.1-0.8); Absolute Neutrophil Count 13.41 10^3/uL (1.2-6.7); Basophils % 0.1; HCT 34.7 % (40.0-50.0); HGB 11.3 g/dL (13.5-17.5); Immature Grans % 0.4; Lactate 2.4 mmol/L (0.6-1.4); Lymphocytes % 3.3; MCH 31.2 pg (27.0-33.0); MCHC 32.6 % (32.0-36.0); MCV 96 fL (80-95); MPV 9.7 fL (8.0-11.0); Monocytes % 1.5; Neutrophils % 94.7; Platelet Count 199 10^3/uL (130-400); RBC 3.62 10^6/uL (4.36-5.78); RDW 14.6 % (11.8-14.1); RDW-SD 51.6 fL; WBC 14.16 10^3/uL (4.4-10.8)
[2022-07-20 05:44] LABS: BUN 28 mg/dL (7-18); C-Reactive Protein 8.63 mg/dL (0.0-0.3); Calcium 8.7 mg/dL (8.5-10.1); Chloride 104 mmol/L (98-107); Estimated GFR 80.47 (mL/min/1.73m2); Glucose 282 mg/dL (74-106); Magnesium 1.7 mg/dL (1.8-2.4); Sodium 140 mmol/L (136-145)
[2022-07-20] MEDS: Albuterol/Ipratropium 3 ML UPD VIAL UPD ×4 (05:49→23:59)
[2022-07-20 05:56] LABS: Potassium 2.9 mmol/L (3.5-5.1)
--- NOTE | 2022-07-20 08:00 | DI.US_ITS ---
Exam(s) US RENAL EXAM: US RENALi CLINICAL HISTORY: UTI in a male TECHNIQUE: Ultrasound of both kidneys performed using standard protocol. COMPARISON: US US ECHOCARDIOGRAM from 06/24/2021 FINDINGS: RIGHT KIDNEY: Measures 10.6 cm in length. No cysts evident. Normal cortical thickness and corticomedullary differen tiation .No solid masses No intrarenal calculi nor hydronephrosis. LEFT KIDNEY: Measures 9.7 cm in length. No cysts evident. Normal cortical thickness and corticomedullary differen tiaion. No solids masses. No intrarenal calculi nor hydonephrosis. URINARY BLADDER: Prevoid volume is 44 cc Postvoid volume: Not performed. Biggs catheter in place. IMPRESSION: 1. No significant ultrasound findings in the kidneys. 2. No hydronephrosis. Biggs catheter in the urinary bladder. DATA REPOSITORY:
[2022-07-20] MEDS: Potassium Chloride 20 MEQ TABCR 40 MEQ PO (08:44)
[2022-07-20] MEDS: Nicotine 14 MG/24 HR PATCH TD (08:45)
[2022-07-20] MEDS: predniSONE 20 MG TAB 40 MG PO (08:45)
[2022-07-20] MEDS: Pantoprazole 40 MG TABCR PO (08:45)
[2022-07-20] MEDS: Gabapentin 300 MG CAP PO ×3 (08:45→20:12)
[2022-07-20] MEDS: MAGNESIUM SULFATE 2 GM/50 ML BAG IVPB (08:46)
[2022-07-20] MEDS: PIPERACILLIN/TAZO 4.5 GM in Normal Saline 100 ML IVPB ×3 (08:47→22:39)
--- NOTE | 2022-07-20 09:01 | W.PULMCC ---
General Date of Service Date of service: 07/20/22 Time of Service: 07:30 Reason for Admission to ICU: Septic Shock Assessment and Plan Assessment and plan (1) Hypomagnesemia: Status: Acute (2) Hypokalemia: Status: Acute (3) Combined pulmonary fibrosis and emphysema (CPFE): Status: Acute (4) Acute respiratory failure with hypoxia: Status: Resolved (5) Pneumonia: Status: Acute (6) Septic shock: Status: Acute (7) Pulmonary hypertension: Assessment and plan: This is a 71 yo man with combined pulmonary fibrosis and emphysema with COPD admitted to the ICU for septic shock due to a GREGORIO pneumonia. He has waxing and waning pulmonary nodules but the finding on chest CT shows more of an infiltrative process now. He clinically is not in a COPD exacerbation, but it may be reasonable to continue prednisone as part of his pneumonia treatment. He also does not have a UTI. He was able to be weaned off pressors this morning and is not requiring supplemental O2 at rest currently. Recommendations Pulmonary: CPFE - supposed to be on Stiolto as outpatient - will restart this - prn nebs Acute hypoxic respiratory failure - resolved, likely due to sepsis Pulmonary Hypertension - with chronically dilated RV - stable, likely group 2 and 3 Cardiac: Septic shock - s/p resuscitation and Levophed - no longer requiring vasopressors - POCUS with normal LVEF and RV function Renal: Hypomagnesemia - replete to 2 Hypokalemia - replete to 4 I&O: Intake & Output 07/17/22 07/18/22 07/19/22 07/20/22 23:59 23:59 23:59 23:59 Intake Total 1278.139 / 1278.139 380 / 380 Output Total 1150 / 1150 Balance 1278.139 / 1278.139 -770 / -770 Weight 53.252 kg 49 kg Daily Fluid Goal:: even GI Nutrition: Ok for diet Date of Last Bowel Movement: 07/19/22 Infectious Disease: Pneumonia - Zosyn and azithromycin - f/u cultures and urine antigens Hematologic: No acute concerns Neurologic: No acute concerns Endocrine: No acute concerns Lines: PIV Prophylaxis: Lovenox Protonix - not a home med, no clear indication for GI ppx currently, recommend D/C Code Status: Resuscitation Status Full Code Subjective Critical and life-threatening events over the past 24 hours: This is a 71 yo with COPD admitted to the ICU for septic shock. Initially this was thought to be either due to a pneumonia or a UTI. In looking at the chart the urine looks clean and with his lung disease it seems more likely that this is a pneumonia. I have been seeing him in clinic for his COPD and waxing and waning nodules, but he did not show up for our last visit. He did require vasopressors briefly upon admission but these were weaned off this morning. He was started on ceftriaxone and azithromycin, but I changed the ceftriaxone to Zosyn given severity and prior infections. I also requested a chest CT which has been completed, but not read yet. By my read: GREGORIO infiltrates consistent with pneumonia. He is feeling well today. Does not offer complaints. His bedside POCUS does not find congestion, but moreso chronic findings of PH. Exam Narrative Exam Narrative: POCUS 07/20/22: All views obtained with excellent quality images. Normal LVEF. RV is dilated, likely chronic. IVC is 2.35cm and does collapse >50% with inspiration. Gen: NAD, normal respiratory effort, thin HENT: PERRL Chest: No respiratory distress, normal appearance of chest, clear to auscultation bilaterally, no crackles or wheezes, normal inspiratory effort Heart: regular rate and rhythym, no murmurs, rubs or gallops Abdomen: Non-distended, soft, non tender Extremities: No clubbing, + edema bilateral ankles, cyanosis, rashes Neuro: AAOx3 , non focal Psych: cooperative, appropriate mental affect Most Recent VS/Results Last Vital Signs Temp 36.8 C 07/20/22 04:00 Pulse 91 H 07/20/22 06:30 Resp 16 07/20/22 06:31 BP 113/68 07/20/22 06:30 Pulse Ox 98 07/20/22 06:31 Laboratory Results - last 24 hr 07/19/22 07/19/22 07/19/22 15:30 15:30 15:30 WBC 15.50 H RBC 4.25 L Hgb 13.2 L Hct 43.0 MCV 101 H MCH 31.1 MCHC 30.7 L RDW 14.5 H Plt Count 255 MPV 9.9 Immature Gran % 0.9 Neutrophils % 86.4 Lymphocytes % 6.6 Monocytes % 5.8 Eosinophils % 0.1 Basophils % 0.2 Nucleated RBC % 0.0 Absolute Neutrophils 13.39 H Absolute Lymphocytes 1.02 L Absolute Monocytes 0.90 H Absolute Eosinophils 0.02 Absolute Basophils 0.03 ABG Sample Site ABG pH ABG pCO2 ABG pO2 ABG HCO3 ABG Total CO2 ABG O2 Saturation ABG Base Excess VBG Lactate Oxygen Liter Flow FiO2 Sodium 140 Potassium 3.8 Chloride 103 Carbon Dioxide 21.3 Anion Gap 15.7 H BUN 27 H Creatinine 1.3 Est GFR (CKD-EPI 2020) 58.73 Glucose 194 H Calcium 9.0 Magnesium 1.9 Total Bilirubin 1.1 H AST 44 H ALT 23 Alkaline Phosphatase 173 H Troponin I < 50 C-Reactive Protein NT-Pro-B Natriuret Pep Total Protein 7.8 Albumin 3.0 L Procalcitonin Urine Color Urine Clarity Urine pH Ur Specific [place] Urine Protein Urine Ketones Urine Blood Urine Nitrite Urine Bilirubin Urine Urobilinogen Ur Leukocyte Esterase Urine RBC Urine WBC Ur Epithelial Cells Urine Crystals Urine Bacteria Urine Casts Urine Mucus Ur Culture Indicated? Urine Glucose COVID-19 Source Nasopharynx SARS-CoV-2 (PCR) Negative Influenza Type A (PCR) Negative Influenza Type B (PCR) Negative RSV (PCR) Negative Add-On Test Request 07/19/22 07/19/22 07/19/22 15:30 16:00 16:00 WBC RBC Hgb Hct MCV MCH MCHC RDW Plt Count MPV Immature Gran % Neutrophils % Lymphocytes % Monocytes % Eosinophils % Basophils % Nucleated RBC % Absolute Neutrophils Absolute Lymphocytes Absolute Monocytes Absolute Eosinophils Absolute Basophils ABG Sample Site ABG pH ABG pCO2 ABG pO2 ABG HCO3 ABG Total CO2 ABG O2 Saturation ABG Base Excess VBG Lactate Oxygen Liter Flow FiO2 Sodium Potassium Chloride Carbon Dioxide Anion Gap BUN Creatinine Est GFR (CKD-EPI 2020) Glucose Calcium Magnesium Total Bilirubin AST ALT Alkaline Phosphatase Troponin I C-Reactive Protein NT-Pro-B Natriuret Pep 6151 H Total Protein Albumin Procalcitonin Urine Color Yellow Urine Clarity Clear Urine pH 6.0 Ur Specific [place] 1.020 Urine Protein 100 H Urine Ketones Negative Urine Blood Trace-lysed H Urine Nitrite Negative Urine Bilirubin Negative Urine Urobilinogen 1.0 H Ur Leukocyte Esterase Trace H Urine RBC 5-10 H Urine WBC 3-5 Ur Epithelial Cells Moderate Urine Crystals Negative Urine Bacteria Rare Urine Casts Negative Urine Mucus Negative Ur Culture Indicated? No Urine Glucose Negative COVID-19 Source SARS-CoV-2 (PCR) Influenza Type A (PCR) Influenza Type B (PCR) RSV (PCR) Add-On Test Request DONE 07/19/22 07/19/22 07/19/22 16:00 16:00 16:24 WBC RBC Hgb Hct MCV MCH MCHC RDW Plt Count MPV Immature Gran % Neutrophils % Lymphocytes % Monocytes % Eosinophils % Basophils % Nucleated RBC % Absolute Neutrophils Absolute Lymphocytes Absolute Monocytes Absolute Eosinophils Absolute Basophils ABG Sample Site ABG pH ABG pCO2 ABG pO2 ABG HCO3 ABG Total CO2 ABG O2 Saturation ABG Base Excess VBG Lactate 3.6 H* Oxygen Liter Flow FiO2 Sodium Potassium Chloride Carbon Dioxide Anion Gap BUN Creatinine Est GFR (CKD-EPI 2020) Glucose Calcium Magnesium Total Bilirubin AST ALT Alkaline Phosphatase Troponin I C-Reactive Protein 3.52 H NT-Pro-B Natriuret Pep Total Protein Albumin Procalcitonin 0.2 Urine Color Urine Clarity Urine pH Ur Specific [place] Urine Protein Urine Ketones Urine Blood Urine Nitrite Urine Bilirubin Urine Urobilinogen Ur Leukocyte Esterase Urine RBC Urine WBC Ur Epithelial Cells Urine Crystals Urine Bacteria Urine Casts Urine Mucus Ur Culture Indicated? Urine Glucose COVID-19 Source SARS-CoV-2 (PCR) Influenza Type A (PCR) Influenza Type B (PCR) RSV (PCR) Add-On Test Request 07/19/22 07/19/22 07/19/22 16:52 17:36 20:52 WBC RBC Hgb Hct MCV MCH MCHC RDW Plt Count MPV Immature Gran % Neutrophils % Lymphocytes % Monocytes % Eosinophils % Basophils % Nucleated RBC % Absolute Neutrophils Absolute Lymphocytes Absolute Monocytes Absolute Eosinophils Absolute Basophils ABG Sample Site Left Radial ABG pH 7.43 ABG pCO2 38 ABG pO2 51 L ABG HCO3 25 ABG Total CO2 23 ABG O2 Saturation 87 L ABG Base Excess 1 VBG Lactate 3.2 H* 2.6 H* Oxygen Liter Flow BIPAP 10/5 FiO2 21 Sodium Potassium Chloride Carbon Dioxide Anion Gap BUN Creatinine Est GFR (CKD-EPI 2020) Glucose Calcium Magnesium Total Bilirubin AST ALT Alkaline Phosphatase Troponin I C-Reactive Protein NT-Pro-B Natriuret Pep Total Protein Albumin Procalcitonin Urine Color Urine Clarity Urine pH Ur Specific [place] Urine Protein Urine Ketones Urine Blood Urine Nitrite Urine Bilirubin Urine Urobilinogen Ur Leukocyte Esterase Urine RBC Urine WBC Ur Epithelial Cells Urine Crystals Urine Bacteria Urine Casts Urine Mucus Ur Culture Indicated? Urine Glucose COVID-19 Source SARS-CoV-2 (PCR) Influenza Type A (PCR) Influenza Type B (PCR) RSV (PCR) Add-On Test Request 07/20/22 07/20/22 07/20/22 05:05 05:05 05:05 WBC 14.16 H RBC 3.62 L Hgb 11.3 L Hct 34.7 L MCV 96 H D MCH 31.2 MCHC 32.6 RDW 14.6 H Plt Count 199 MPV 9.7 Immature Gran % 0.4 Neutrophils % 94.7 Lymphocytes % 3.3 Monocytes % 1.5 Eosinophils % 0.0 Basophils % 0.1 Nucleated RBC % 0.0 Absolute Neutrophils 13.41 H Absolute Lymphocytes 0.47 L Absolute Monocytes 0.21 Absolute Eosinophils 0.00 Absolute Basophils 0.01 ABG Sample Site ABG pH ABG pCO2 ABG pO2 ABG HCO3 ABG Total CO2 ABG O2 Saturation ABG Base Excess VBG Lactate 2.4 H* Oxygen Liter Flow FiO2 Sodium 140 Potassium 2.9 L Chloride 104 Carbon Dioxide 26.0 Anion Gap 10.0 BUN 28 H Creatinine 1.0 Est GFR (CKD-EPI 2020) 80.47 Glucose 282 H Calcium 8.7 Magnesium 1.7 L Total Bilirubin AST ALT Alkaline Phosphatase Troponin I C-Reactive Protein 8.63 H NT-Pro-B Natriuret Pep Total Protein Albumin Procalcitonin Urine Color Urine Clarity Urine pH Ur Specific [place] Urine Protein Urine Ketones Urine Blood Urine Nitrite Urine Bilirubin Urine Urobilinogen Ur Leukocyte Esterase Urine RBC Urine WBC Ur Epithelial Cells Urine Crystals Urine Bacteria Urine Casts Urine Mucus Ur Culture Indicated? Urine Glucose COVID-19 Source SARS-CoV-2 (PCR) Influenza Type A (PCR) Influenza Type B (PCR) RSV (PCR) Add-On Test Request Review of Systems All systems reviewed & are unremarkable except as noted in HPI and below Time spent with patient Time spent in Critical Care: 45 Time spent in Critical care included: Chart review, Documenting critically ill care, Time at immediate bedside and Discussing critically ill care with other medical staff
[2022-07-20] MEDS: Insulin Aspart 300 UNITS/3 ML PEN SC ×2 (09:17→12:21)
[2022-07-20] MEDS: Normal Saline Flush 10 ML SYR IVP ×3 (09:20→11:04)
--- NOTE | 2022-07-20 09:46 | INITIAL_ITS ---
- If Service Date Differs Date of service: 07/20/22 Time of Service: 09:46 Care Management Initial Assess REASON FOR HOSPITALIZATION:: Septic Shock due to pnumonia, CHF PAST MEDICAL HISTORY/PAST SURGICAL HISTORY:: All Active Problems (Updated 07/19/22 @ 19:38 by Shakila Mayberry MD). Acute respiratory failure with hypoxia (Acute). Discharge planning issues (Acute). DVT prophylaxis (Acute). Acute exacerbation of chronic obstructive pulmonary disease (COPD) (Acute). Acute on chronic right-sided congestive heart failure (Acute). Acute UTI (Acute). Pneumonia (Acute). Septic shock (Acute). Hypoxia (Acute). Mild peripheral edema (Acute). Depression (Chronic). Dental abscess (Acute). 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 Abnormal chest CT (Acute). Full code status (Acute). Urinary tract infection (Acute). Urinary retention (Chronic). 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 CAP (community acquired pneumonia) (Acute). Generalized weakness (Acute). Skin tear of left elbow without complication (Acute). Chronic obstructive lung disease (Chronic). Tricuspid regurgitation (Chronic). CAD (coronary artery disease) (Chronic). Hypertension (Chronic). Medical History . Abdominal pain. Abnormal radiologic findings on diagnostic imaging of renal pelvis, ureter, or bladder. Acute on chronic anemia. Acute on chronic diastolic (congestive) heart failure. Acute on chronic systolic CHF (congestive heart failure). Adenocarcinoma of esophagus. [place] [facility] [place]x [place] Cancer...EGD 04/2021 with friable mucosa. SDOne at that time because of GI blooed. Afib. Alcohol abuse. Alcohol abuse, continuous drinking behavior. Anemia. Bilateral lower extremity edema. CAD (coronary artery disease) of artery bypass graft. Cerumen impaction. CHF, acute on chronic. Confusion state. COVID-19. COVID-19. Diabetes mellitus. Difficulty reading. Edema. Encounter for colorectal cancer screening. Epididymitis, right (08/02/16). Essential hypertension. Failure to thrive. Fall. GERD (gastroesophageal reflux disease). GI bleed. GI bleeding. H/O malignant neoplasm of stomach. Heart failure, left, with LVEF 41-49%. History of GI bleed. Hoarseness. Hydrocele, right (01/23/16). Hyperlipidemia. Hypokalemia. Hypophosphatemia. Kyphoscoliosis. Low back pain. Malnutrition. Mild bibasilar atelectasis. Palliative care encounter. Pancreatitis. Poor hygiene. Prediabetes. Protein malnutrition. Pulmonary hypertension. Recent weight loss. Rib fractures. Shortness of breath. Solitary pulmonary nodule. Tinnitus, left. Tobacco abuse. Weight loss. Surgical History . cardiac cath. Coronary Artery Bypass Gaft (CABG). EGD - IV Sedation. Esophagectomy. H/O colonoscopy (2007). H/O colonoscopy (04/14/18). dr geller, sigmoid diverticulosis, repeat 10 years. History of esophagogastroduodenoscopy (EGD) (09/2017). History of hydrocelectomy. History of right inguinal hernia repair. repair times two. sugrical flap of unhealing wound PREVIOUS FUNCTIONAL STATUS/SOCIAL/FAMILY SUPPORTS:: Ilia [facility] with his roomateLyudmila. He has a cat. Ilia shares that he had a daughter, however she not to long ago. He uses a cane and is followed in the by Palliative in the community for his chronic health issues. Ilia uses [facility] for transportation. CURRENT FUNCTIONAL STATUS:: Ilia is lying in bed when CM met with him. He maintains good eye contact and engages in conversation minimally, using 1-2 words when he does respond. Dr. Montez from Palliative care is familar with Ilia and feels Home Health services, including OFFICE MESSENGER HELPER may be beneficial. ADVANCE DIRECTIVES:: On file Has patient been provided with info about the portal/API?: Yes Did the patient sign up for the portal?: No CODE STATUS:: Full Code INSURANCE COVERAGE / FINANCIAL ISSUES:: Medicaid. Medicare CURRENT HOME/COMMUNITY SERVICES/EQUIPMENT:: Palliative care. [facility]. cane. lives with sebas Coreas PRIMARY CARE PHYSICIAN:: Silvina Perdue POTENTIAL DISCHARGE NEEDS:: [facility] Referral. [facility] referral, [facility] Services, including OFFICE MESSENGER HELPER. [facility] transportation. Follow up appointments. Discharge plan of care PATIENT/FAMILY EDUCATION NEEDS:: Review discharge instructions, limitations, medications and plan to follow up with community providers. Discuss ask me three. TRANSPORTATION:: Via [facility] private vehicle PLAN:: Ilia is being closely monitored and treated in the ICU. Anticipate, he will discharge home via [facility] with [facility] RN/ OFFICE MESSENGER HELPER (PT/OT, if indicated). CM will continue to support patient and discharge planning conciderations.
--- NOTE | 2022-07-20 10:03 | PGE_ITS ---
Date of Service Date of service: 07/20/22 Time of Service: 10:04 Assessment and Plan Assessment and plan (1) Septic shock: Status: Acute Assessment and plan: Due to PNA, less likely UTI (not enough WBCs on UA to truly be considered a UTI). Abx adjusted to azithromycin + zosyn by Dr Ayala. No longer requiring pressors. Blood cultures are pending. No longer requiring respiratory support. Await blood culture results, continue empiric abx. Likely ok to transfer out of the ICU later today. Obtain CT chest w/o contrast. (2) Pneumonia: Status: Acute Assessment and plan: As above Obtain CT chest. (3) Acute UTI: Status: Ruled-out Assessment and plan: Less likely to have a UTI by UA. Urine was not sent for culture. (4) Acute respiratory failure with hypoxia: Status: Resolved Assessment and plan: Multifactorial - due to acute on chronic CHF, COPD exacerbation, PNA. As above No longer requiring respiratory support. (5) Acute on chronic right-sided congestive heart failure: Status: Acute Assessment and plan: Await echo. EUvolemic on exam today. (6) Acute exacerbation of chronic obstructive pulmonary disease (COPD): Status: Acute Assessment and plan: Treat with steroids, nebs, abx as above. (7) Hypokalemia: Status: Acute Assessment and plan: Replete (8) Hypomagnesemia: Status: Acute Assessment and plan: Replete and recheck in am (9) DVT prophylaxis: Status: Acute Assessment and plan: SC enoxaparin (10) Discharge planning issues: Status: Acute Assessment and plan: Full code Can likely transfer out of the ICU later today. C/s PT, OT, nutrition (BMI 18.5 kg/m2, malnourished), palliative care. Discussed with DR Ayala. Subjective Subjective Interval history since last seen: Mr Kang states he is feeling better. He is not short of breath. Denies dizziness, chest pain, nausea, pain anywhere. He is on room air and off of vasopressors this morning. He is going down from his CT of the chest. He is hungry and very interested in getting a meal tray. Exam Narrative Exam Narrative: General: Cachectic and disheveled appearing male is on RA, A&Ox2 (looks at the calendar to guess the date), on RA, not in respiratory distress HEENT: EOMI, MMM Cardiovascular: RRR, no m/r/g Lungs: CTAB Gastrointestinal: soft, nontender, nondistended; s/p rib resection on L Genitourinary: has a garza Extremities: 2+ BLE edema to ankles Objective Last Vital Signs Temp 36.8 C 07/20/22 04:00 Pulse 91 H 07/20/22 06:30 Resp 16 07/20/22 06:31 BP 113/68 07/20/22 06:30 Pulse Ox 98 07/20/22 06:31 Laboratory Results - last 24 hr 07/19/22 07/19/22 07/19/22 15:30 15:30 15:30 WBC 15.50 H RBC 4.25 L Hgb 13.2 L Hct 43.0 MCV 101 H MCH 31.1 MCHC 30.7 L RDW 14.5 H Plt Count 255 MPV 9.9 Immature Gran % 0.9 Neutrophils % 86.4 Lymphocytes % 6.6 Monocytes % 5.8 Eosinophils % 0.1 Basophils % 0.2 Nucleated RBC % 0.0 Absolute Neutrophils 13.39 H Absolute Lymphocytes 1.02 L Absolute Monocytes 0.90 H Absolute Eosinophils 0.02 Absolute Basophils 0.03 ABG Sample Site ABG pH ABG pCO2 ABG pO2 ABG HCO3 ABG Total CO2 ABG O2 Saturation ABG Base Excess VBG Lactate Oxygen Liter Flow FiO2 Sodium 140 Potassium 3.8 Chloride 103 Carbon Dioxide 21.3 Anion Gap 15.7 H BUN 27 H Creatinine 1.3 Est GFR (CKD-EPI 2020) 58.73 Glucose 194 H Calcium 9.0 Magnesium 1.9 Total Bilirubin 1.1 H AST 44 H ALT 23 Alkaline Phosphatase 173 H Troponin I < 50 C-Reactive Protein NT-Pro-B Natriuret Pep Total Protein 7.8 Albumin 3.0 L Procalcitonin Urine Color Urine Clarity Urine pH Ur Specific [place] Urine Protein Urine Ketones Urine Blood Urine Nitrite Urine Bilirubin Urine Urobilinogen Ur Leukocyte Esterase Urine RBC Urine WBC Ur Epithelial Cells Urine Crystals Urine Bacteria Urine Casts Urine Mucus Ur Culture Indicated? Urine Glucose COVID-19 Source Nasopharynx SARS-CoV-2 (PCR) Negative Influenza Type A (PCR) Negative Influenza Type B (PCR) Negative RSV (PCR) Negative Add-On Test Request 07/19/22 07/19/22 07/19/22 15:30 16:00 16:00 WBC RBC Hgb Hct MCV MCH MCHC RDW Plt Count MPV Immature Gran % Neutrophils % Lymphocytes % Monocytes % Eosinophils % Basophils % Nucleated RBC % Absolute Neutrophils Absolute Lymphocytes Absolute Monocytes Absolute Eosinophils Absolute Basophils ABG Sample Site ABG pH ABG pCO2 ABG pO2 ABG HCO3 ABG Total CO2 ABG O2 Saturation ABG Base Excess VBG Lactate Oxygen Liter Flow FiO2 Sodium Potassium Chloride Carbon Dioxide Anion Gap BUN Creatinine Est GFR (CKD-EPI 2020) Glucose Calcium Magnesium Total Bilirubin AST ALT Alkaline Phosphatase Troponin I C-Reactive Protein NT-Pro-B Natriuret Pep 6151 H Total Protein Albumin Procalcitonin Urine Color Yellow Urine Clarity Clear Urine pH 6.0 Ur Specific [place] 1.020 Urine Protein 100 H Urine Ketones Negative Urine Blood Trace-lysed H Urine Nitrite Negative Urine Bilirubin Negative Urine Urobilinogen 1.0 H Ur Leukocyte Esterase Trace H Urine RBC 5-10 H Urine WBC 3-5 Ur Epithelial Cells Moderate Urine Crystals Negative Urine Bacteria Rare Urine Casts Negative Urine Mucus Negative Ur Culture Indicated? No Urine Glucose Negative COVID-19 Source SARS-CoV-2 (PCR) Influenza Type A (PCR) Influenza Type B (PCR) RSV (PCR) Add-On Test Request DONE 07/19/22 07/19/22 07/19/22 16:00 16:00 16:24 WBC RBC Hgb Hct MCV MCH MCHC RDW Plt Count MPV Immature Gran % Neutrophils % Lymphocytes % Monocytes % Eosinophils % Basophils % Nucleated RBC % Absolute Neutrophils Absolute Lymphocytes Absolute Monocytes Absolute Eosinophils Absolute Basophils ABG Sample Site ABG pH ABG pCO2 ABG pO2 ABG HCO3 ABG Total CO2 ABG O2 Saturation ABG Base Excess VBG Lactate 3.6 H* Oxygen Liter Flow FiO2 Sodium Potassium Chloride Carbon Dioxide Anion Gap BUN Creatinine Est GFR (CKD-EPI 2020) Glucose Calcium Magnesium Total Bilirubin AST ALT Alkaline Phosphatase Troponin I C-Reactive Protein 3.52 H NT-Pro-B Natriuret Pep Total Protein Albumin Procalcitonin 0.2 Urine Color Urine Clarity Urine pH Ur Specific [place] Urine Protein Urine Ketones Urine Blood Urine Nitrite Urine Bilirubin Urine Urobilinogen Ur Leukocyte Esterase Urine RBC Urine WBC Ur Epithelial Cells Urine Crystals Urine Bacteria Urine Casts Urine Mucus Ur Culture Indicated? Urine Glucose COVID-19 Source SARS-CoV-2 (PCR) Influenza Type A (PCR) Influenza Type B (PCR) RSV (PCR) Add-On Test Request 07/19/22 07/19/22 07/19/22 16:52 17:36 20:52 WBC RBC Hgb Hct MCV MCH MCHC RDW Plt Count MPV Immature Gran % Neutrophils % Lymphocytes % Monocytes % Eosinophils % Basophils % Nucleated RBC % Absolute Neutrophils Absolute Lymphocytes Absolute Monocytes Absolute Eosinophils Absolute Basophils ABG Sample Site Left Radial ABG pH 7.43 ABG pCO2 38 ABG pO2 51 L ABG HCO3 25 ABG Total CO2 23 ABG O2 Saturation 87 L ABG Base Excess 1 VBG Lactate 3.2 H* 2.6 H* Oxygen Liter Flow BIPAP 10/5 FiO2 21 Sodium Potassium Chloride Carbon Dioxide Anion Gap BUN Creatinine Est GFR (CKD-EPI 2020) Glucose Calcium Magnesium Total Bilirubin AST ALT Alkaline Phosphatase Troponin I C-Reactive Protein NT-Pro-B Natriuret Pep Total Protein Albumin Procalcitonin Urine Color Urine Clarity Urine pH Ur Specific [place] Urine Protein Urine Ketones Urine Blood Urine Nitrite Urine Bilirubin Urine Urobilinogen Ur Leukocyte Esterase Urine RBC Urine WBC Ur Epithelial Cells Urine Crystals Urine Bacteria Urine Casts Urine Mucus Ur Culture Indicated? Urine Glucose COVID-19 Source SARS-CoV-2 (PCR) Influenza Type A (PCR) Influenza Type B (PCR) RSV (PCR) Add-On Test Request 07/20/22 07/20/22 07/20/22 05:05 05:05 05:05 WBC 14.16 H RBC 3.62 L Hgb 11.3 L Hct 34.7 L MCV 96 H D MCH 31.2 MCHC 32.6 RDW 14.6 H Plt Count 199 MPV 9.7 Immature Gran % 0.4 Neutrophils % 94.7 Lymphocytes % 3.3 Monocytes % 1.5 Eosinophils % 0.0 Basophils % 0.1 Nucleated RBC % 0.0 Absolute Neutrophils 13.41 H Absolute Lymphocytes 0.47 L Absolute Monocytes 0.21 Absolute Eosinophils 0.00 Absolute Basophils 0.01 ABG Sample Site ABG pH ABG pCO2 ABG pO2 ABG HCO3 ABG Total CO2 ABG O2 Saturation ABG Base Excess VBG Lactate 2.4 H* Oxygen Liter Flow FiO2 Sodium 140 Potassium 2.9 L Chloride 104 Carbon Dioxide 26.0 Anion Gap 10.0 BUN 28 H Creatinine 1.0 Est GFR (CKD-EPI 2020) 80.47 Glucose 282 H Calcium 8.7 Magnesium 1.7 L Total Bilirubin AST ALT Alkaline Phosphatase Troponin I C-Reactive Protein 8.63 H NT-Pro-B Natriuret Pep Total Protein Albumin Procalcitonin Urine Color Urine Clarity Urine pH Ur Specific [place] Urine Protein Urine Ketones Urine Blood Urine Nitrite Urine Bilirubin Urine Urobilinogen Ur Leukocyte Esterase Urine RBC Urine WBC Ur Epithelial Cells Urine Crystals Urine Bacteria Urine Casts Urine Mucus Ur Culture Indicated? Urine Glucose COVID-19 Source SARS-CoV-2 (PCR) Influenza Type A (PCR) Influenza Type B (PCR) RSV (PCR) Add-On Test Request Multi-Disciplinary Checklist Lines/Tubes CENTRAL LINE: no ARTERIAL LINE: no GARZA: yes, Garza Day#: 1 Note: about to be removed ENDOTRACHEAL TUBE: no ICU Maintenance GLUCOSE 140-180mg/dL: no, Reason/Intervention: starting SSI and changing diet to carb consistent NUTRITION AT GOAL: yes PRESSURE ULCER: no RESTRAINTS: no ANTIBIOTICS(if yes, consider Stewardship): Yes Social Issues FAMILY UPDATED: no, Reason/Intervention: No family to update PT/OT: yes GOALS/DISPOSITION/HUMANITIES DEPARTMENT CHAIR: yes CODE STATUS: Full (palliative care consulted) Prophylaxis DVT PROPHYLAXIS: yes GI PROPHYLAXIS: yes, Indication: on a PPI Time Spent with Patient Time Spent with Patient: 25-34 minutes Time was spent: preparing to see the patient(eg.review tests), obtaining and/or reviewing separately otained hiistory, ordering medications,tests, procedures, referring, communicating with other health child care supervisor, indepentently interpreting results, counseling the patient and care coordination
--- NOTE | 2022-07-20 10:40 | W.NUTCONSULT ---
Date of service: 07/20/22 Time of Service: 10:40 Nutritional Consult ASSESSMENT: Ilia admitted with hypomagnesemia, hypokalemia with acute respiratory failure with hx of COPD, CHF and malnutrition. Hx of tobacco/ETOH abuse. BMI indicates underweight status. Home meds include 7.5 mg remeron. BLood sugars elevated, now on diabetic diet with good intake. NUTRITIONAL DIAGNOSIS: chronic malnutrition in view of low BMI and hx of poor intake secondary to ETOH abuse INTERVENTION: continue current meal plan will provide ensure BID and high calorie foods MONITORING AND EVALUATION: weight, po intake, labs. Time Spent in Nutritional Counseling and Treatment: 0
--- NOTE | 2022-07-20 10:50 | DI.CT_ITS ---
Exam(s) CT CHEST WO EXAM: CT CHEST WO CLINICAL HISTORY: Concern for a pneumonia; h/o emphysema. TECHNIQUE: Multi planar reconstructions were performed. CONTRAST MATERIAL: None COMPARISON: CT CT CHEST/ABD/PEL WO from 10/09/2021 FINDINGS: CHEST: LUNGS: Severe emphysematous changes again noted. The previously present nodular infiltrate in the ri ght middle lobe seen on CT scan of October 09, 2021 has resolved as has the nodular infiltrate in the ante rior basal segment of the right lower lobe. Presently there is some unchanged infiltrate in the post erior segment of the right upper lobe adjacent to the major fissure. There is also some infiltrate i n the right lower lobe posterior basal segment and small amount of right pleural fluid now evident. In the opposite-left lung there is now increased infiltrate in the apical posterior segment of the le ft upper lobe which was not previously present, this abutting the upper aspect of the major fissure. Also some increased infiltrate more anteriorly in the left upper lobe. There is relative sparing of the lingular segment of the left lung. In the left lower lobe there is increase in infiltrate. Hia bruno hernia noted. Small amount left pleural fluid. MEDIASTINUM: No obvious hilar adenopathy realized limitations of a noninfused study. There is some s ubcarinal adenopathy. Multiple small nodules are noted in both thyroid lobes. No obvious axillary a denopathy CARDIAC: Sternotomy wires. Cardiomegaly. No pericardial effusion. Caliber thoracic aorta is upper normal. VISUALIZED UPPER ABDOMEN: OSSEOUS: No fractures. No significant osseous lesions.. IMPRESSION: 1. Severe COPD emphysematous changes. Increasing infiltrates as described above. Also small bilater al pleural effusions now evident. RADIATION DOSE DELIVERED: 359.99mGy.cm Total DLP DATA REPOSITORY: All CT scans at this facility are submitted to the National Radiology Data Registry (NRDR) Dose Index Registry (DIR) with the [employer] ([employer]). RADIATION OPTIMIZATION: All CT scans at this facility use at least one of these dose optimization te chniques: automated exposure control; mA and/or kV adjustment per patient size (includes targeted exa ms where dose is matched to clinical indication); or iterative reconstruction.
[2022-07-20] MEDS: POTASSIUM CHLORIDE 20 MEQ/100 ML BAG 50 MEQ IVPB ×2 (11:04→14:29)
[2022-07-20] MEDS: AZITHROMYCIN 500 MG in Normal Saline 250 ML 250 MG IVPB (17:53)
[2022-07-20] MEDS: Enoxaparin 40 MG/0.4 ML SYR SC (20:12)
[2022-07-20 20:17] LABS: Legionella Ag Detection Urine Negative (Negative)
[2022-07-21] VITALS (14 sets, daily range): BP systolic 105–154; BP diastolic 69–90; PULSE 91–117; RESP 1–20; TEMP 36.2–37; O2SAT 93–99
[2022-07-21] MEDS: PIPERACILLIN/TAZO 4.5 GM in Normal Saline 100 ML IVPB ×3 (05:19→23:59)
[2022-07-21] MEDS: Albuterol/Ipratropium 3 ML UPD VIAL UPD ×4 (06:14→23:40)
--- NOTE | 2022-07-21 07:07 | PGE_ITS ---
Assessment and Plan Assessment and plan (1) Combined pulmonary fibrosis and emphysema (CPFE): Status: Acute (2) Acute respiratory failure with hypoxia: Status: Resolved (3) Pneumonia: Status: Acute (4) Septic shock: Status: Acute (5) Pulmonary hypertension: Assessment and plan: This is a 71 yo man with combined pulmonary fibrosis and emphysema with COPD admitted originally to the ICU for septic shock due to a GREGORIO pneumonia. He has waxing and waning pulmonary nodules but the finding on chest CT shows more of an infiltrative process now. He clinically is not in a COPD exacerbation, but it may be reasonable to continue prednisone as part of his pneumonia treatment. He was able to be weaned off vasopressors and oxygen in a short amount of time and now has been transferred to the floor. He is stable and I will arrange follow up with me as an outpatient to address his chronic lung diseases as well as repeat imaging to ensure resolution of the pneumonia. Pneumonia - Zosyn and azithromycin - recommend Levaquin to finish up a total 7 day course when ready for discharge - f/u cultures and urine antigens - legionella antigen negative, sputum culture non revealing - blood cultures negative - will follow up with me as an outpatient Septic shock, resolved - s/p resuscitation and Levophed - no longer requiring vasopressors - POCUS with normal LVEF and RV function CPFE - Stiolto on discharge - prn nebs Acute hypoxic respiratory failure - resolved, likely due to sepsis Pulmonary Hypertension - with chronically dilated RV - stable, likely group 2 and 3 Pulmonary to sign off, feel free to reach out with any further needs General Date Of Service Date of service: 07/21/22 Time of Service: 07:07 Reason for Consult: Pneumonia, COPD, pulmonary hypertension Subjective Note Note: Ilia continues to do well on room air. His Legionella antigen is negative. Exam Narrative Exam Narrative: POCUS 07/20/22: All views obtained with excellent quality images. Normal LVEF. RV is dilated, likely chronic. IVC is 2.35cm and does collapse >50% with inspiration. Gen: NAD, normal respiratory effort, thin HENT: PERRL Chest: No respiratory distress, normal appearance of chest, clear to auscultation bilaterally, no crackles or wheezes, normal inspiratory effort Heart: regular rate and rhythym, no murmurs, rubs or gallops Abdomen: Non-distended, soft, non tender Extremities: No clubbing, + edema bilateral ankles, cyanosis, rashes Neuro: AAOx3 , non focal Psych: cooperative, appropriate mental affect Objective Last Vital Signs Temp 36.6 C 07/21/22 04:30 Pulse 103 H 07/21/22 06:14 Resp 16 07/21/22 06:14 BP 111/75 07/21/22 04:30 Pulse Ox 98 07/21/22 06:14 Results Medications Medications: Active Medications Generic Name Dose Route Start Last Admin Trade Name Freq PRN Reason Stop Dose Admin Acetaminophen 0 mg 07/19/22 17:04 Acetaminophen 325 Mg Tab PO Q4H PRN PRN Al Hydrox/Mg Hydrox/Simethicone 30 ml 07/19/22 17:04 Mylanta Suspension 30 Ml Cup PO Q2H PRN PRN Albuterol Sulfate 2.5 mg 07/19/22 17:04 Albuterol 2.5 Mg/3 Ml Inh Soln Vial UPD Q2H PRN PRN Albuterol/Ipratropium 3 ml 07/19/22 18:00 07/21/22 06:14 Albuterol/Ipratropium 3 Ml Upd Vial UPD 3 ml Q6H [facility]OMER Administration Device 1 each 07/20/22 12:00 Inhaler, Assist Device MC DIRECTED HOMER Dextrose 0 gm 07/20/22 07:59 Glucose Oral Gel 15 Gm/37.5 Gm Tube PO DIRECTED PRN Dextrose/Water 0 gm 07/20/22 07:59 Dextrose 50%-Water 25 Gm/50 Ml Syr IVP DIRECTED PRN Dimethicone/Zinc Oxide 0 gm 07/19/22 16:58 Haley Protect Cream 142 Gm Tube TP PRN PRN Docusate Sodium 100 mg 07/19/22 17:04 Docusate Sodium 100 Mg Cap PO TID PRN PRN Enoxaparin Sodium 40 mg 07/19/22 20:00 07/20/22 20:12 Enoxaparin 40 Mg/0.4 Ml Syr SC 40 mg Q24H [facility] Administration Gabapentin 300 mg 07/19/22 20:00 07/20/22 20:12 Gabapentin 300 Mg Cap PO 300 mg TID [facility]OMER Administration Sodium Chloride 500 mls @ 0 mls/hr 07/19/22 17:04 Saline 500ml Bag IV PRN PRN As Directed Azithromycin 500 mg/ Sodium 250 mls @ 250 mls/hr 07/20/22 16:00 07/20/22 18:55 Chloride IVPB Infused Q24H [facility] Infusion Piperacillin Sod/Tazobactam 100 mls @ 25 mls/hr 07/20/22 14:00 07/21/22 05:19 Sod 4.5 gm/ Sodium Chloride IVPB 25 mls/hr Q8H [facility] Administration Protocol IV Miscellaneous Supplies 1 each 07/19/22 17:15 Iv Access IV DIRECTED [facility] Insulin Aspart 0 units 07/20/22 08:00 07/20/22 22:38 Insulin Aspart 300 Units/3 Ml Pen SC Not Given 0800,1200,1700,2200 [facility] Protocol Ketoconazole 15 gm 07/20/22 08:30 07/20/22 13:56 Ketoconazole 2% Cream 15 Gm Tube TP Not Given DAILY [facility] Magnesium Hydroxide 30 ml 07/19/22 17:04 Milk Of Magnesia 30 Ml Cup PO DAILY PRN PRN Mirtazapine 7.5 mg 07/19/22 22:00 07/20/22 22:38 Mirtazapine 15 Mg Tab PO 7.5 mg HS [facility] Administration Nicotine 14 mg 07/20/22 08:30 07/20/22 08:45 Nicotine 14 Mg/24 Hr Patch TD 14 mg DAILY [facility] Administration Pantoprazole Sodium 40 mg 07/20/22 07:30 07/20/22 08:45 Pantoprazole 40 Mg Tabcr PO 40 mg DAILY@0730 [facility] Administration Prednisone 40 mg 07/20/22 08:30 07/20/22 08:45 Prednisone 20 Mg Tab PO 40 mg DAILY [facility] Administration Sodium Chloride 0 ml 07/19/22 17:04 07/20/22 11:04 Normal Saline Flush 10 Ml Syr IVP 10 ml PRN PRN Administration Tiotropium Russell/Olodaterol 2 puff 07/21/22 08:30 Tiotropium/Olodaterol 10 Puff Inhaler IH DAILY [facility] Allergies No Known Allergies Allergy (Verified 06/28/22 16:30) Labs 07/20/22 05:05 07/20/22 05:05 Labs: 07/21/22 00:40 Sputum Sputum Culture - Pending 07/21/22 00:40 Sputum Gram Stain - Final 07/19/22 16:15 Blood Blood Culture - Preliminary NO GROWTH 24 HOURS 07/19/22 16:00 Blood Blood Culture - Preliminary NO GROWTH 24 HOURS Laboratory Tests Range/Units 07/19/22 07/19/22 07/19/22 15:30 15:30 15:30 WBC (4.4-10.8) 10^3/uL 15.50 H RBC (4.36-5.78) 10^6/uL 4.25 L Hgb (13.5-17.5) g/dL 13.2 L Hct (40.0-50.0) % 43.0 MCV (80-95) fL 101 H MCH (27.0-33.0) pg 31.1 MCHC (32.0-36.0) % 30.7 L RDW (11.8-14.1) % 14.5 H Plt Count (130-400) 10^3/uL 255 MPV (8.0-11.0) fL 9.9 Immature Gran % 0.9 Neutrophils % 86.4 Lymphocytes % 6.6 Monocytes % 5.8 Eosinophils % 0.1 Basophils % 0.2 Nucleated RBC % (0.0-0.3) % 0.0 Absolute Neutrophils (1.2-6.7) 10^3/uL 13.39 H Absolute Lymphocytes (1.2-3.4) 10^3/uL 1.02 L Absolute Monocytes (0.1-0.8) 10^3/uL 0.90 H Absolute Eosinophils (0.0-0.7) 10^3/uL 0.02 Absolute Basophils (0.0-0.2) 10^3/uL 0.03 ABG Sample Site ABG pH (7.35-7.45) ABG pCO2 (35-45) mmHg ABG pO2 (80-105) mmHg ABG HCO3 (22-26) mmol/L ABG Total CO2 (23-27) mmol/L ABG O2 Saturation (95-98) % ABG Base Excess (-2-3) mmol/L VBG Lactate (0.6-1.4) mmol/L Oxygen Liter Flow L FiO2 % Sodium (136-145) mmol/L 140 Potassium (3.5-5.1) mmol/L 3.8 Chloride (98-107) mmol/L 103 Carbon Dioxide (21.0-32.0) mmol/L 21.3 Anion Gap (3-11) mmol/L 15.7 H BUN (7-18) mg/dL 27 H Creatinine (0.70-1.30) mg/dL 1.3 Est GFR (CKD-EPI 2020) (mL/min/1.73m2) 58.73 Glucose (74-106) mg/dL 194 H Calcium (8.5-10.1) mg/dL 9.0 Magnesium (1.8-2.4) mg/dL 1.9 Total Bilirubin (0.2-1.0) mg/dL 1.1 H AST (15-37) U/L 44 H ALT (16-63) U/L 23 Alkaline Phosphatase (46-116) U/L 173 H Troponin I (<or=60) ng/L < 50 C-Reactive Protein (0.0-0.3) mg/dL NT-Pro-B Natriuret Pep (<300) pg/mL Total Protein (6.4-8.2) g/dL 7.8 Albumin (3.4-5.0) g/dL 3.0 L Procalcitonin ng/mL Urine Color (Yellow) Urine Clarity (Clear) Urine pH (5-8) Ur Specific [place] (1.005-1.025) Urine Protein (Negative) mg/dL Urine Ketones (Negative) mg/dL Urine Blood (Negative) Urine Nitrite (Negative) Urine Bilirubin (Negative) Urine Urobilinogen (Up TO 0.2) EU/dL Ur Leukocyte Esterase (Negative) Urine RBC (0-2) HPF Urine WBC (0-5) HPF Ur Epithelial Cells (Negative) HPF Urine Crystals (Negative) HPF Urine Bacteria (Negative) HPF Urine Casts (Negative) LPF Urine Mucus (Negative) Ur Culture Indicated? Urine Glucose (Negative) mg/dL COVID-19 Source Nasopharynx SARS-CoV-2 (PCR) (Negative) Negative Influenza Type A (PCR) (Negative) Negative Influenza Type B (PCR) (Negative) Negative RSV (PCR) (Negative) Negative Add-On Test Request Range/Units 07/19/22 07/19/22 07/19/22 15:30 16:00 16:00 WBC (4.4-10.8) 10^3/uL RBC (4.36-5.78) 10^6/uL Hgb (13.5-17.5) g/dL Hct (40.0-50.0) % MCV (80-95) fL MCH (27.0-33.0) pg MCHC (32.0-36.0) % RDW (11.8-14.1) % Plt Count (130-400) 10^3/uL MPV (8.0-11.0) fL Immature Gran % Neutrophils % Lymphocytes % Monocytes % Eosinophils % Basophils % Nucleated RBC % (0.0-0.3) % Absolute Neutrophils (1.2-6.7) 10^3/uL Absolute Lymphocytes (1.2-3.4) 10^3/uL Absolute Monocytes (0.1-0.8) 10^3/uL Absolute Eosinophils (0.0-0.7) 10^3/uL Absolute Basophils (0.0-0.2) 10^3/uL ABG Sample Site ABG pH (7.35-7.45) ABG pCO2 (35-45) mmHg ABG pO2 (80-105) mmHg ABG HCO3 (22-26) mmol/L ABG Total CO2 (23-27) mmol/L ABG O2 Saturation (95-98) % ABG Base Excess (-2-3) mmol/L VBG Lactate (0.6-1.4) mmol/L Oxygen Liter Flow L FiO2 % Sodium (136-145) mmol/L Potassium (3.5-5.1) mmol/L Chloride (98-107) mmol/L Carbon Dioxide (21.0-32.0) mmol/L Anion Gap (3-11) mmol/L BUN (7-18) mg/dL Creatinine (0.70-1.30) mg/dL Est GFR (CKD-EPI 2020) (mL/min/1.73m2) Glucose (74-106) mg/dL Calcium (8.5-10.1) mg/dL Magnesium (1.8-2.4) mg/dL Total Bilirubin (0.2-1.0) mg/dL AST (15-37) U/L ALT (16-63) U/L Alkaline Phosphatase (46-116) U/L Troponin I (<or=60) ng/L C-Reactive Protein (0.0-0.3) mg/dL NT-Pro-B Natriuret Pep (<300) pg/mL 6151 H Total Protein (6.4-8.2) g/dL Albumin (3.4-5.0) g/dL Procalcitonin ng/mL Urine Color (Yellow) Yellow Urine Clarity (Clear) Clear Urine pH (5-8) 6.0 Ur Specific [place] (1.005-1.025) 1.020 Urine Protein (Negative) mg/dL 100 H Urine Ketones (Negative) mg/dL Negative Urine Blood (Negative) Trace-lysed H Urine Nitrite (Negative) Negative Urine Bilirubin (Negative) Negative Urine Urobilinogen (Up TO 0.2) EU/dL 1.0 H Ur Leukocyte Esterase (Negative) Trace H Urine RBC (0-2) HPF 5-10 H Urine WBC (0-5) HPF 3-5 Ur Epithelial Cells (Negative) HPF Moderate Urine Crystals (Negative) HPF Negative Urine Bacteria (Negative) HPF Rare Urine Casts (Negative) LPF Negative Urine Mucus (Negative) Negative Ur Culture Indicated? No Urine Glucose (Negative) mg/dL Negative COVID-19 Source SARS-CoV-2 (PCR) (Negative) Influenza Type A (PCR) (Negative) Influenza Type B (PCR) (Negative) RSV (PCR) (Negative) Add-On Test Request DONE Range/Units 07/19/22 07/19/22 07/19/22 16:00 16:00 16:24 WBC (4.4-10.8) 10^3/uL RBC (4.36-5.78) 10^6/uL Hgb (13.5-17.5) g/dL Hct (40.0-50.0) % MCV (80-95) fL MCH (27.0-33.0) pg MCHC (32.0-36.0) % RDW (11.8-14.1) % Plt Count (130-400) 10^3/uL MPV (8.0-11.0) fL Immature Gran % Neutrophils % Lymphocytes % Monocytes % Eosinophils % Basophils % Nucleated RBC % (0.0-0.3) % Absolute Neutrophils (1.2-6.7) 10^3/uL Absolute Lymphocytes (1.2-3.4) 10^3/uL Absolute Monocytes (0.1-0.8) 10^3/uL Absolute Eosinophils (0.0-0.7) 10^3/uL Absolute Basophils (0.0-0.2) 10^3/uL ABG Sample Site ABG pH (7.35-7.45) ABG pCO2 (35-45) mmHg ABG pO2 (80-105) mmHg ABG HCO3 (22-26) mmol/L ABG Total CO2 (23-27) mmol/L ABG O2 Saturation (95-98) % ABG Base Excess (-2-3) mmol/L VBG Lactate (0.6-1.4) mmol/L 3.6 H* Oxygen Liter Flow L FiO2 % Sodium (136-145) mmol/L Potassium (3.5-5.1) mmol/L Chloride (98-107) mmol/L Carbon Dioxide (21.0-32.0) mmol/L Anion Gap (3-11) mmol/L BUN (7-18) mg/dL Creatinine (0.70-1.30) mg/dL Est GFR (CKD-EPI 2020) (mL/min/1.73m2) Glucose (74-106) mg/dL Calcium (8.5-10.1) mg/dL Magnesium (1.8-2.4) mg/dL Total Bilirubin (0.2-1.0) mg/dL AST (15-37) U/L ALT (16-63) U/L Alkaline Phosphatase (46-116) U/L Troponin I (<or=60) ng/L C-Reactive Protein (0.0-0.3) mg/dL 3.52 H NT-Pro-B Natriuret Pep (<300) pg/mL Total Protein (6.4-8.2) g/dL Albumin (3.4-5.0) g/dL Procalcitonin ng/mL 0.2 Urine Color (Yellow) Urine Clarity (Clear) Urine pH (5-8) Ur Specific [place] (1.005-1.025) Urine Protein (Negative) mg/dL Urine Ketones (Negative) mg/dL Urine Blood (Negative) Urine Nitrite (Negative) Urine Bilirubin (Negative) Urine Urobilinogen (Up TO 0.2) EU/dL Ur Leukocyte Esterase (Negative) Urine RBC (0-2) HPF Urine WBC (0-5) HPF Ur Epithelial Cells (Negative) HPF Urine Crystals (Negative) HPF Urine Bacteria (Negative) HPF Urine Casts (Negative) LPF Urine Mucus (Negative) Ur Culture Indicated? Urine Glucose (Negative) mg/dL COVID-19 Source SARS-CoV-2 (PCR) (Negative) Influenza Type A (PCR) (Negative) Influenza Type B (PCR) (Negative) RSV (PCR) (Negative) Add-On Test Request Range/Units 07/19/22 07/19/22 07/19/22 16:52 17:36 20:52 WBC (4.4-10.8) 10^3/uL RBC (4.36-5.78) 10^6/uL Hgb (13.5-17.5) g/dL Hct (40.0-50.0) % MCV (80-95) fL MCH (27.0-33.0) pg MCHC (32.0-36.0) % RDW (11.8-14.1) % Plt Count (130-400) 10^3/uL MPV (8.0-11.0) fL Immature Gran % Neutrophils % Lymphocytes % Monocytes % Eosinophils % Basophils % Nucleated RBC % (0.0-0.3) % Absolute Neutrophils (1.2-6.7) 10^3/uL Absolute Lymphocytes (1.2-3.4) 10^3/uL Absolute Monocytes (0.1-0.8) 10^3/uL Absolute Eosinophils (0.0-0.7) 10^3/uL Absolute Basophils (0.0-0.2) 10^3/uL ABG Sample Site Left Radial ABG pH (7.35-7.45) 7.43 ABG pCO2 (35-45) mmHg 38 ABG pO2 (80-105) mmHg 51 L ABG HCO3 (22-26) mmol/L 25 ABG Total CO2 (23-27) mmol/L 23 ABG O2 Saturation (95-98) % 87 L ABG Base Excess (-2-3) mmol/L 1 VBG Lactate (0.6-1.4) mmol/L 3.2 H* 2.6 H* Oxygen Liter Flow L BIPAP 10/5 FiO2 % 21 Sodium (136-145) mmol/L Potassium (3.5-5.1) mmol/L Chloride (98-107) mmol/L Carbon Dioxide (21.0-32.0) mmol/L Anion Gap (3-11) mmol/L BUN (7-18) mg/dL Creatinine (0.70-1.30) mg/dL Est GFR (CKD-EPI 2020) (mL/min/1.73m2) Glucose (74-106) mg/dL Calcium (8.5-10.1) mg/dL Magnesium (1.8-2.4) mg/dL Total Bilirubin (0.2-1.0) mg/dL AST (15-37) U/L ALT (16-63) U/L Alkaline Phosphatase (46-116) U/L Troponin I (<or=60) ng/L C-Reactive Protein (0.0-0.3) mg/dL NT-Pro-B Natriuret Pep (<300) pg/mL Total Protein (6.4-8.2) g/dL Albumin (3.4-5.0) g/dL Procalcitonin ng/mL Urine Color (Yellow) Urine Clarity (Clear) Urine pH (5-8) Ur Specific [place] (1.005-1.025) Urine Protein (Negative) mg/dL Urine Ketones (Negative) mg/dL Urine Blood (Negative) Urine Nitrite (Negative) Urine Bilirubin (Negative) Urine Urobilinogen (Up TO 0.2) EU/dL Ur Leukocyte Esterase (Negative) Urine RBC (0-2) HPF Urine WBC (0-5) HPF Ur Epithelial Cells (Negative) HPF Urine Crystals (Negative) HPF Urine Bacteria (Negative) HPF Urine Casts (Negative) LPF Urine Mucus (Negative) Ur Culture Indicated? Urine Glucose (Negative) mg/dL COVID-19 Source SARS-CoV-2 (PCR) (Negative) Influenza Type A (PCR) (Negative) Influenza Type B (PCR) (Negative) RSV (PCR) (Negative) Add-On Test Request Range/Units 07/20/22 07/20/22 07/20/22 05:05 05:05 05:05 WBC (4.4-10.8) 10^3/uL 14.16 H RBC (4.36-5.78) 10^6/uL 3.62 L Hgb (13.5-17.5) g/dL 11.3 L Hct (40.0-50.0) % 34.7 L MCV (80-95) fL 96 H D MCH (27.0-33.0) pg 31.2 MCHC (32.0-36.0) % 32.6 RDW (11.8-14.1) % 14.6 H Plt Count (130-400) 10^3/uL 199 MPV (8.0-11.0) fL 9.7 Immature Gran % 0.4 Neutrophils % 94.7 Lymphocytes % 3.3 Monocytes % 1.5 Eosinophils % 0.0 Basophils % 0.1 Nucleated RBC % (0.0-0.3) % 0.0 Absolute Neutrophils (1.2-6.7) 10^3/uL 13.41 H Absolute Lymphocytes (1.2-3.4) 10^3/uL 0.47 L Absolute Monocytes (0.1-0.8) 10^3/uL 0.21 Absolute Eosinophils (0.0-0.7) 10^3/uL 0.00 Absolute Basophils (0.0-0.2) 10^3/uL 0.01 ABG Sample Site ABG pH (7.35-7.45) ABG pCO2 (35-45) mmHg ABG pO2 (80-105) mmHg ABG HCO3 (22-26) mmol/L ABG Total CO2 (23-27) mmol/L ABG O2 Saturation (95-98) % ABG Base Excess (-2-3) mmol/L VBG Lactate (0.6-1.4) mmol/L 2.4 H* Oxygen Liter Flow L FiO2 % Sodium (136-145) mmol/L 140 Potassium (3.5-5.1) mmol/L 2.9 L Chloride (98-107) mmol/L 104 Carbon Dioxide (21.0-32.0) mmol/L 26.0 Anion Gap (3-11) mmol/L 10.0 BUN (7-18) mg/dL 28 H Creatinine (0.70-1.30) mg/dL 1.0 Est GFR (CKD-EPI 2020) (mL/min/1.73m2) 80.47 Glucose (74-106) mg/dL 282 H Calcium (8.5-10.1) mg/dL 8.7 Magnesium (1.8-2.4) mg/dL 1.7 L Total Bilirubin (0.2-1.0) mg/dL AST (15-37) U/L ALT (16-63) U/L Alkaline Phosphatase (46-116) U/L Troponin I (<or=60) ng/L C-Reactive Protein (0.0-0.3) mg/dL 8.63 H NT-Pro-B Natriuret Pep (<300) pg/mL Total Protein (6.4-8.2) g/dL Albumin (3.4-5.0) g/dL Procalcitonin ng/mL Urine Color (Yellow) Urine Clarity (Clear) Urine pH (5-8) Ur Specific [place] (1.005-1.025) Urine Protein (Negative) mg/dL Urine Ketones (Negative) mg/dL Urine Blood (Negative) Urine Nitrite (Negative) Urine Bilirubin (Negative) Urine Urobilinogen (Up TO 0.2) EU/dL Ur Leukocyte Esterase (Negative) Urine RBC (0-2) HPF Urine WBC (0-5) HPF Ur Epithelial Cells (Negative) HPF Urine Crystals (Negative) HPF Urine Bacteria (Negative) HPF Urine Casts (Negative) LPF Urine Mucus (Negative) Ur Culture Indicated? Urine Glucose (Negative) mg/dL COVID-19 Source SARS-CoV-2 (PCR) (Negative) Influenza Type A (PCR) (Negative) Influenza Type B (PCR) (Negative) RSV (PCR) (Negative) Add-On Test Request
[2022-07-21 07:27] LABS: Absolute Eosinophil Count 0.01 10^3/uL (0.0-0.7); Absolute Lymphocyte Count 1.05 10^3/uL (1.2-3.4); Absolute Monocyte Count 0.67 10^3/uL (0.1-0.8); Basophils % 0.1; Eosinophils % 0.1; HCT 34.6 % (40.0-50.0); HGB 11.1 g/dL (13.5-17.5); Immature Grans % 0.7; MCHC 32.1 % (32.0-36.0); MCV 97 fL (80-95); MPV 9.6 fL (8.0-11.0); Monocytes % 4.5; Neutrophils % 87.6; Platelet Count 210 10^3/uL (130-400); RBC 3.58 10^6/uL (4.36-5.78); RDW 14.6 % (11.8-14.1); RDW-SD 52.1 fL; WBC 14.99 10^3/uL (4.4-10.8)
[2022-07-21 07:29] LABS: Absolute Basophil Count 0.01 10^3/uL (0.0-0.2); Absolute Neutrophil Count 13.13 10^3/uL (1.2-6.7)
[2022-07-21] MEDS: Nicotine 14 MG/24 HR PATCH TD (07:40)
[2022-07-21] MEDS: Pantoprazole 40 MG TABCR PO (07:40)
[2022-07-21] MEDS: predniSONE 20 MG TAB 40 MG PO (07:40)
[2022-07-21] MEDS: Gabapentin 300 MG CAP PO ×3 (07:40→19:48)
[2022-07-21 08:06] LABS: Anion Gap 9.7 mmol/L (3-11); BUN 34 mg/dL (7-18); CO2 23.3 mmol/L (21.0-32.0); Calcium 9.2 mg/dL (8.5-10.1); Chloride 106 mmol/L (98-107); Estimated GFR 80.47 (mL/min/1.73m2); Glucose 118 mg/dL (74-106); Magnesium 2.2 mg/dL (1.8-2.4); Sodium 139 mmol/L (136-145)
[2022-07-21 08:22] LABS: C-Reactive Protein 5.73 mg/dL (0.0-0.3)
[2022-07-21] MEDS: Tiotropium/Olodaterol 10 PUFF INHALER 2 PUFF IH (09:37)
--- NOTE | 2022-07-21 09:40 | CMPROGNOTE_ITS ---
- If Service Date Differs Date of service: 07/21/22 Time of Service: 09:40 Care Management Progress Note S/O: Ilia is sitting in his recliner when CM met with him. He is awake and easily engages in conversation today. Ilia talked about the services he receives in the community. Per pt, he has [facility] services and [facility]. He uses [facility] and reports that his roommate Lyudmila is a big help. Ideally, Ilia wants to discharge back to the room he rents from Lyudmila when he ready. CM will continue to support pt and his discharge planning considerations. A: 71 year old male admitted to [facility] on 07/20/22 for Septic Shock due to pneumonia, CHF P: Ilia is being closely monitored and treated. Palliative consult is ordered. Anticipate, Ilia will discharge home via [facility] with resumption of [facility] PT/[employer] (add RN) when medically ready. CM will continue to support patient and discharge planning considerations.
[2022-07-21] MEDS: Ketoconazole 2% CREAM 15 GM TUBE TP (11:30)
[2022-07-21] MEDS: Insulin Aspart 300 UNITS/3 ML PEN SC (12:37)
--- NOTE | 2022-07-21 12:50 | IN_ITS ---
Date of service: 07/21/22 Time of Service: 10:05 PT Notes Visit Reasons: Septic Shock due to Pneumonia, CHF Physical Therapy Inpatient Initial Evaluation Date: 07/21/2022 Referring Doctor: Shakila Mayberry MD PT Orders: PT CONSULT: Limited ability Precautions: Fall. Standard. Activity as tolerated. Patient Profile/Admitting Diagnosis: Ilia is a 71-year-old male who presented to the ED on 07/19/2022 due to generalized weakness and shortness of breath. Patient is diagnosed with pneumonia, acute urinary tract infection, acute respiratory failure with hypoxia, combined pulmonary fibrosis and emphysema, COPD exacerbation, pulmonary hypertension, and acute on chronic right-sided heart failure. PMHX: All Active Problems?(Updated 07/19/22 @ 19:38 by Shakila Mayberry MD) Acute respiratory failure with hypoxia (Acute) Discharge planning issues (Acute) DVT prophylaxis (Acute) Acute exacerbation of chronic obstructive pulmonary disease (COPD) (Acute) Acute on chronic right-sided congestive heart failure (Acute) Acute UTI (Acute) Pneumonia (Acute) Septic shock (Acute) Hypoxia (Acute) Mild peripheral edema (Acute) Depression (Chronic) Dental abscess (Acute) 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) Abnormal chest CT (Acute) Full code status (Acute) Urinary tract infection (Acute) 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 SDOne at that time because of GI blooed Afib Alcohol abuse Alcohol abuse, continuous drinking behavior Anemia Bilateral lower extremity edema CAD (coronary artery disease) of artery bypass graft Cerumen impaction CHF, acute on chronic Confusion state COVID-19 COVID-19 Diabetes mellitus Difficulty reading Edema Encounter for colorectal cancer screening Epididymitis, right (08/02/16) Essential hypertension Failure to thrive Fall GERD (gastroesophageal reflux disease) GI bleed GI bleeding H/O malignant neoplasm of stomach Heart failure, left, with LVEF 41-49% History of GI bleed Hoarseness Hydrocele, right (01/23/16) Hyperlipidemia Hypokalemia Hypophosphatemia Kyphoscoliosis Low back pain Malnutrition Mild bibasilar atelectasis Palliative care encounter Pancreatitis Poor hygiene Prediabetes Protein malnutrition Pulmonary hypertension Recent weight loss Rib fractures Shortness of breath Solitary pulmonary nodule Tinnitus, left Tobacco abuse Weight loss Surgical History? cardiac cath Coronary Artery Bypass Gaft (CABG) EGD - IV Sedation Esophagectomy H/O colonoscopy (2007) H/O colonoscopy (04/14/18) dr geller, sigmoid diverticulosis, repeat 10 years History of esophagogastroduodenoscopy (EGD) (09/2017) History of hydrocelectomy History of right inguinal hernia repair repair times two sugrical flap of unhealing wound Social History/Home Situation: Lives with a roommate in a private home with 4 steps to enter.? Uses single- point cane at baseline. Uses Meals on Wheels. Does not drive. Equipment Owned/DME: SPC Subjective: Agreeable to getting out of chair. Denies headache, chest pain, and lightheadedness throughout session. Objective: General Observation: Cachectic.? IV in the right UE.?Telemetry monitoring in place. Mental Status: Alert and oriented as to person, place, time, and purpose. Able to pay attention, focus, and respond appropriately. Pain: Denies ROM: Right Upper Extremity: ? Shoulder Flexion WFL. Shoulder abduction WFL. Elbow flexion WFL. Wrist flexion WFL. Functional opening and closing of hand WFL. Left Upper Extremity:? Shoulder Flexion WFL. Shoulder abduction WFL. Elbow fl exion WFL. Wrist flexion WFL. Functional opening and closing of hand WFL. Right Lower Extremity: Hip flexion WFL. Hip abduction WFL. Knee flexion WFL. Ankle dorsiflexion WFL. Ankle plantarflexion WFL. Left Lower Extremity: Hip flexion WFL. Hip abduction WFL. Knee flexion WFL. Ankle dorsiflexion WFL. Ankle plantarflexion WFL. Strength: Right Upper Extremity: Shoulder flexors 3+/5. Shoulder abductors 3+/5. Elbow flexors 3+/5. Elbow extensors 3+/5. Kiosk Sales Representative strong. Left Upper Extremity: Shoulder flexors 3+/5. Shoulder abductors 3+/5. Elbow flexors 3+/5. Elbow extensors 3+/5. Kiosk Sales Representative strong. Right Lower Extremity: Hip flexors 3+/5. Hip abductors 3+/5. Knee flexors 3+/5. Knee extensors 3+/5. Ankle dorsiflexors 3+/5. Ankle plantarflexors 3+/5. Left Lower Extremity: Hip flexors 3+/5. Hip abductors 3+/5. Knee flexors 3+/5. Knee extensors 3+/5. Ankle dorsiflexors 3+/5. Ankle plantarflexors 3+/5. Bed Mobility/Transfers: Sit to stand with stand by assist Stand to sit with stand by assist Bed to reclining chair with stand by assist Gait: Tolerated 100 feet on level surface ambulation using front wheel walker with supervision. Trialed use of single-point cane on the right side with contact- guard assist provided and past deviation to right noted. Mild shortness of breath subsided with rest. Balance: Static Sitting: Normal Dynamic Sitting: Normal Static Standing: Fair Dynamic Standing: Fair Special Tests: Mobility Limitations Standardized Measure [facility] 6 clicks Basic Mobility Inpatient Short Form: Raw Score: 18? CMS Score: 47% deficit? ? ? Informed Consent/Education:? Patient was instructed in purpose of PT consult and plan of care and is agreeable to proceed with established PT POC to achieve personal goals. Assessment: Ilia is a 71-year-old male who presented to the ED on 07/19/2022 due to generalized weakness and shortness of breath. Patient is diagnosed with pneumonia, acute urinary tract infection, acute respiratory failure with hyp oxia, combined pulmonary fibrosis and emphysema, COPD exacerbation, pulmonary hypertension, and acute on chronic right-sided heart failure. Patient presents with clinical signs and symptoms consistent with current/admitting diagnoses that have resulted to mobility limitations, gait instability, generalized weakness, and overall ADL decline as demonstrated by the following impairment level findings: 1.? Decreased strength to B UE/LE major muscle groups 2.? Impaired standing balance 3.? Impaired activity tolerance Impairments are contributing to the following functional limitations: 1.? Decline in bed mobility skills 2.? Decline in transfer skills 3.? Difficulty with ambulation without assistive device and physical assistance 4.? Increased completion time for mobility ADL performance 5.? Increased risk for falls 6.? Difficulty with managing steps alone safely Patient is assessed as a 79043 moderate? complexity based on the following: History: 71-year-old male with past medical history as indicated above Examination: Demonstrable impairment in strength, balance, and mobility level with underlying impairments and functional limitations as exhibited above as well as deficit score of 61% utilizing the [facility] Mobility Inpatient Short Form Presentation: Evolving Decision Makin moderate complexity Goals: Goals X1 week 1. Supine-Sit independent 2. Sit-Supine independent 3. Sit-Stand independent 4. Stand-Sit independent with SPC 5. Bed-Chair independent with SPC 6. Chair-Bed independent with SPC 7. Independent gait on level surface with use of SPC for at least 300 feet without report of pain nor dyspnea 8. Independent stair negotiation while holding onto 1rail for at least 5 steps without report of pain nor dyspnea 9. Independent with home exercise program 10. Good static and dynamic standing balance/tolerance Plan of Care/Treatment Plan: 1-2x/day, 7 days/week x 1 week. Plan of care has been reviewed with the SUGAR MIXER providing the service under Physical Therapy direction. Initiate Physical Therapy intervention for pain management as needed, strengthening, bed mobility, transfers, gait, stairs, balance training, and use of assistive device. DISCHARGE RECOMMENDATIONS: [X] Home with home health PT services. Patient will benefit from home health PT services in order to progress mobility level using least restrictive assistive ambulatory device, assess home safety, identify additional equipment needs, and establish a functional maintenance program that will increase ability of patient to remain at home. TREATMENT CODE/TIME: 41025 x 27 minutes beginning at 10:05 PM. Thank you for the opportunity to participate in the care of this patient. Savanna Banks PT, DPT, CLT [facility] [place], [place]
--- NOTE | 2022-07-21 15:58 | PGE_ITS ---
Date of Service Date of service: 07/21/22 Time of Service: 15:58 Assessment and Plan Assessment and plan (1) Septic shock: Status: Acute Assessment and plan: Sepsis d/t pneumonia. Hemodynamically stable. Now on med/surg. continue Zosyn and azithromycin. Per Dr. Ayala, she recommends 7 day course of Levaquin upon discharge. Sputum gram stain w/ few GPC and few WBC and rare yeast. Blood cultures no growth to date. Professional time spent interviewing and examining patient, discussion of goals of care with hospital team (care management, nursing and consulting juan carlos churchill) was 30 minutes. (2) Pneumonia: Status: Acute Assessment and plan: As above CT of chest demonstrates new left sided infiltrates; previous right basal and RML infiltrates seen in October [address] Aayla has indicated that his pulmonary infilatrates have waxed and waned. She will follow w/ him on outpatient basis and arrange follow up imaging. (3) Acute respiratory failure with hypoxia: Status: Resolved Assessment and plan: Multifactorial - due to underlying emphysema w/ pulmonary fibrosis w/ superimposed acute CAP; + compponent of right HF (echo demonstrated RV enlargement w/ paradoxical septal motion c/w RV volume overload. He has moderate PHTN and has peripheral edema therefore I will give him iv lasix and monitor his response. As above No longer requiring respiratory support. (4) Acute on chronic right-sided congestive heart failure: Status: Acute Assessment and plan: as above (5) Hypokalemia: Status: Acute Assessment and plan: Replete, monitor (6) Hypomagnesemia: Status: Acute Assessment and plan: Replete, monitor (7) DVT prophylaxis: Status: Acute Assessment and plan: SC enoxaparin (8) Discharge planning issues: Status: Acute Assessment and plan: remains full code. He apparently lives in a family detention. He will return there upon discharge and we will resume home health services, P.T., O.T. and INVENTORY ANALYST Subjective Subjective Interval history since last seen: Ilia is doing better. Not dyspneic at rest or w/ simple ADL. He is afebrile. His WBC is up to 14,990 but he is also on prednisone. As he is not having an acute exacerbation of pneumonia, I am not sure why he is on prednisone. CT w/ new left sided infiltrates. He is currently on Zosyn and azithromycin. Exam Narrative Exam Narrative: Ilia is sitting up in his chair, not requiring oxygen Lungs: clear on quiet respirations w/ diffusely decreased breath sounds Heart: irregularly irregular; chest wall w/ sternotomy scar Abdomen: soft, nontender, multiple abdominal surgical scars from hernia repair. Legs/feet: 2+ pedal and ankle edema Objective Last Vital Signs Temp 37.0 C 07/21/22 15:28 Pulse 112 H 07/21/22 15:28 Resp 20 07/21/22 15:28 BP 149/85 H 07/21/22 15:28 Pulse Ox 95 07/21/22 15:28 Laboratory Results - last 24 hr 07/19/22 07/21/22 07/21/22 16:00 07:05 07:05 WBC 14.99 H RBC 3.58 L Hgb 11.1 L Hct 34.6 L MCV 97 H MCH 31.0 MCHC 32.1 RDW 14.6 H Plt Count 210 MPV 9.6 Immature Gran % 0.7 Neutrophils % 87.6 Lymphocytes % 7.0 Monocytes % 4.5 Eosinophils % 0.1 Basophils % 0.1 Nucleated RBC % 0.0 Absolute Neutrophils 13.13 H Absolute Lymphocytes 1.05 L Absolute Monocytes 0.67 Absolute Eosinophils 0.01 Absolute Basophils 0.01 Sodium 139 Potassium 4.0 D Chloride 106 Carbon Dioxide 23.3 Anion Gap 9.7 BUN 34 H Creatinine 1.0 Est GFR (CKD-EPI 2020) 80.47 Glucose 118 H Calcium 9.2 Magnesium 2.2 C-Reactive Protein 5.73 H Urine Legionella Ag Negative Time Spent with Patient Time Spent with Patient: 25-34 minutes Time was spent: preparing to see the patient(eg.review tests), obtaining and/or reviewing separately otained hiistory, ordering medications,tests, procedures, indepentently interpreting results, counseling the patient and care coordination
[2022-07-21] MEDS: Normal Saline Flush 10 ML SYR IVP (16:45)
--- NOTE | 2022-07-21 17:07 | PT.INTREAT ---
Date of service: 07/21/22 Time of Service: 16:40 PT Notes Visit Reasons: Septic Shock due to Pneumonia, CHF Physical Therapy Inpatient Treatment Note Date: 07/21/2022 Precautions: Fall. Standard. Activity as tolerated. Subjective: Now fatigued and wanting to rest. Just walked while holding onto IV pole and cane in the hallway unassisted before PT visit. Nurse saw patient and recommended to return back to room for safety. Agreeable to doing exercises while awaiting charge nurse arrival to create a new IV site. Charge Nurse Patt arrived and exercises were halted for IV site insertion. Objective: General Observation: Cachectic.? IV in the right UE.?Telemetry monitoring in place. B LE pedal edema. Cut through sock seam to minimize increasing skin indentation. Mental Status: Alert and oriented as to person, place, time, and purpose. Able to pay attention, focus, and respond appropriately. Pain: Denies Bed Mobility/Transfers: Sit to stand with stand by assist Stand to sit with stand by assist Bed to reclining chair with stand by assist Balance: Static Sitting: Normal Dynamic Sitting: Normal Static Standing: Fair Dynamic Standing: Fair THERA EX: (Copy of exercise provided to patient) B LAQ x 10 Seated marches x 10 UKTC x 10 while reclined Ankle DF/PF x 20 while reclined Chest expansion exercises with DBE x 5, with UE flexion/extension Hip abduction x 10 while reclined Chest expansion exercises with DBE x 5, with UE horizontal abd/add Assessment: Ilia is a 71-year-old male who presented to the ED on 07/19/2022 due to generalized weakness and shortness of breath.? Patient is diagnosed with pneumonia, acute urinary tract infection, acute respiratory failure with hypoxia, combined pulmonary fibrosis and emphysema, COPD exacerbation, pulmonary hypertension, and acute on chronic right-sided heart failure. DISCHARGE RECOMMENDATIONS: [X] Home with home health PT services.? Patient will benefit from home health PT services in order to progress mobility level using least restrictive assistive ambulatory device, assess home safety, identify additional equipment needs, and establish a functional maintenance program that will increase ability of patient to remain at home. TREATMENT CODE/TIME: 95367 x 30 minutes beginning at 16:22 PM and 16:40 PM.
[2022-07-21] MEDS: AZITHROMYCIN 500 MG in Normal Saline 250 ML 250 MG IVPB (17:11)
[2022-07-21] MEDS: Furosemide 40 MG/4 ML VIAL IVP (17:48)
[2022-07-21] MEDS: Enoxaparin 40 MG/0.4 ML SYR SC (19:48)
[2022-07-21] MEDS: Mirtazapine 15 MG TAB 7.5 MG PO (21:26)
[2022-07-21 22:57] LABS: Streptococcus Pneumoniae Ag, U Negative (Negative)
[2022-07-22 03:04] VITALS: BP 126/78; PULSE 86; RESP 16; TEMP 36.1; O2SAT 97
[2022-07-22 06:22] VITALS: PULSE 89; RESP 1; RESP 16; RESP 8; O2SAT 97
[2022-07-22] MEDS: Albuterol/Ipratropium 3 ML UPD VIAL UPD (06:22)
[2022-07-22] MEDS: PIPERACILLIN/TAZO 4.5 GM in Normal Saline 100 ML IVPB ×3 (06:32→21:33)
[2022-07-22] MEDS: Normal Saline Flush 10 ML SYR IVP ×3 (06:33→21:33)
[2022-07-22 06:49] LABS: Abs Immature Grans 0.08 10^3/uL (0.0-0.06); Absolute Basophil Count 0.02 10^3/uL (0.0-0.2); Absolute Eosinophil Count 0.02 10^3/uL (0.0-0.7); Absolute Lymphocyte Count 1.34 10^3/uL (1.2-3.4); Absolute Monocyte Count 0.67 10^3/uL (0.1-0.8); Absolute Neutrophil Count 8.09 10^3/uL (1.2-6.7); Basophils % 0.2; Eosinophils % 0.2; HCT 36.6 % (40.0-50.0); HGB 11.9 g/dL (13.5-17.5); Immature Grans % 0.8; Lymphocytes % 13.1; MCH 31.2 pg (27.0-33.0); MCHC 32.5 % (32.0-36.0); MCV 96 fL (80-95); MPV 9.8 fL (8.0-11.0); Monocytes % 6.6; Neutrophils % 79.1; Platelet Count 233 10^3/uL (130-400); RBC 3.81 10^6/uL (4.36-5.78); RDW 14.7 % (11.8-14.1); RDW-SD 51.6 fL; WBC 10.22 10^3/uL (4.4-10.8)
[2022-07-22 07:07] LABS: Anion Gap 8.1 mmol/L (3-11); BUN 37 mg/dL (7-18); C-Reactive Protein 2.95 mg/dL (0.0-0.3); CO2 28.9 mmol/L (21.0-32.0); CREATININE 1.1 mg/dL (0.70-1.30); Calcium 9.4 mg/dL (8.5-10.1); Chloride 104 mmol/L (98-107); Estimated GFR 71.77 (mL/min/1.73m2); Glucose 73 mg/dL (74-106); Magnesium 2.2 mg/dL (1.8-2.4); Potassium 3.6 mmol/L (3.5-5.1); Sodium 141 mmol/L (136-145)
[2022-07-22 07:43] LABS: Procalcitonin 2.3 ng/mL
[2022-07-22 07:58] VITALS: BP 119/74; PULSE 103; RESP 18; TEMP 36.3; O2SAT 98
[2022-07-22] MEDS: Tiotropium/Olodaterol 10 PUFF INHALER 2 PUFF IH (08:02)
[2022-07-22] MEDS: Ketoconazole 2% CREAM 15 GM TUBE TP (08:16)
[2022-07-22] MEDS: Nicotine 14 MG/24 HR PATCH TD (08:16)
[2022-07-22] MEDS: Acetaminophen 325 MG TAB PO (08:17)
[2022-07-22] MEDS: Pantoprazole 40 MG TABCR PO (08:17)
[2022-07-22] MEDS: Gabapentin 300 MG CAP PO ×3 (08:17→19:06)
[2022-07-22] MEDS: Furosemide 40 MG/4 ML VIAL IVP ×2 (08:18→15:36)
--- NOTE | 2022-07-22 09:24 | PT.INTREAT ---
Date of service: 07/22/22 Time of Service: 08:46 PT Notes Visit Reasons: Septic Shock due to Pneumonia, CHF Inpatient Physical Therapy Treatment Note [facility] Date: 07/22/2022 PRECAUTIONS: Fall, Activity as tolerated SUBJECTIVE: Ilia is pleasant and agreeable to participating in PT. He reports that he has been up since about 5:00 this morning, and that he is feeling quite tired. He also expresses some concern about the edema in his feet. In p.m., patient reports that he is too tired to participate in PT. He agrees to get up and transfer to the bed with PT. OBJECTIVE: PAIN: No c/o pain BED MOBILITY/TRANSFERS Sit-supine: I with HOB at 20 degrees Sit-stand: SBA Stand-sit: SBA Chair-bed: SBA GAIT Assistive Device: SPC Weight bearing: Full Assist: SBA Distance: 150' in a.m.; 5' in p.m. Deviation: Slow pacing THEREX: Patient refused TOILETING: Patient toileted independently DRESSING: Patient required some assist for dressing, donning pants and [place]. ASSESSMENT: Patient tolerated session well without complaint. He was able to tolerate gait training with SPC support and SBA. PLAN: Continue with global strengthening and general conditioning for improved mobility and activity tolerance. TREATMENT CODE/TIME: Session 1: 25 minutes; 47670 x2 (08:46) Session 2: 15 minutes; 52080 (13:45)
--- NOTE | 2022-07-22 10:07 | W.PALLCONSUL ---
Date of service: 07/22/22 Time of Service: 08:45 History of Present Illness Narrative: Mr. Kang is a 71-year-old gentleman with history of pulmonary disease (COPD, pulmonary fibrosis), intermittent urinary retention, coronary artery disease who was admitted to the hospital 4 days ago with pneumonia with sepsis. He has responded well to treatment and is now off oxygen while finishing up course of antibiotics and starting on physical therapy. Recently the palliative care team started following him via home visits. I met with him today to provide supportive care and discuss goals of care. r history today from patient, phone call with PCP Dr. Silvina Perdue, housemate and friend Lyudmila. Hospital notes reviewed as well. Discussion with case management. Patient had hospital admission last summer with acute urinary retention. He had a short rehab stay after that and then went home. Starting in around January, he decided to stop taking all his medications. He just did not want to be bothered by taking them. No intention of self-harm. In May had episode of acute urinary retention and presented to the ER, also complained of worsening of his chronic leg edema. Was restarted on Lasix and instructed to follow-up with PCP to resume other medications. When I saw him a month ago, he had not yet seen PCP and was running out of his diuretics. At that visit we were able to get home health involved and coming into the house. Refills for medications were sent into the pharmacy. As per Lyudmila, he continued to take furosemide and spironolactone but did not start the other medications. He was seen by PCP office twice in the preceding month. Lyudmila reports he finally started taking other medications (gabapentin, metoprolol, mirtazapine, tamsulosin) only 3 days prior to admission. Palliative review of systems: Pain: Occasional back pain, none currently Appetite: Good. Patient with chronic underweight. Looks at baseline today, may be a tad better Dyspnea: Improving Depression: Denies : No sensation of urinary retention. Assessment and Plan Assessment and plan (1) Acute exacerbation of chronic obstructive pulmonary disease (COPD): Status: Acute Assessment and plan: As per hospitalist. Interesting to note that patient's complexion and mentation is greatly improved while he is unable to smoke while hospitalized. Patient reports still having some urges to smoke, but could probably do without it. (2) Alcoholism in remission: Status: Acute Assessment and plan: Patient estimates he has been sober now for about 8 months. (3) Depression: Status: Chronic Assessment and plan: Patient appears markedly less depressed than last time I saw him. He reports that he feels quite lonely at home, housemate sleeps most of the morning and some of the afternoon. He did resume taking his mirtazapine just last week. He would benefit from monitoring of medications and encouragement to continue to take antidepressant. He might benefit from addition of a more activating SSRI. This can be considered as an outpatient. I started a discussion with him regarding considering living in an assisted living facility such as [facility] in the future. Explained that there would be more people around but he would still have his own room to go back to. He saw this as a definite possibility but may be not right now but in the future. However his bilingual patient support caseworker is can keep this in mind. (4) Dental abscess: Status: Acute Assessment and plan: [facility] acute care physical therapist was working on getting him dental appointment to have abscessed tooth extracted. Sounds like this is not yet happened. Currently not acutely painful. Primary care office will continue to work on this once he is discharged. (5) Combined pulmonary fibrosis and emphysema (CPFE): Status: Acute Assessment and plan: Patient had not followed up with outpatient pulmonology as scheduled. Did get to see Dr. Connolly as an inpatient and she would like to see him as follow-up. Hopefully his bilingual patient support caseworker can follow-up to make sure that this happens. Housemate and friend Lyudmila tries very hard to get his appointments scheduled, but it is challenging to get appointments and RCT transportation aligned. (6) Palliative care encounter: Status: Acute Assessment and plan: Ilia appears strikingly more animated and less depressed than he did last time I saw him a month ago. Sounds like he and Lyudmila are receiving more support services again. Prior to my June visit, he was getting Meals on Wheels and had RCT. Since my last home visit, he has seen his PCP twice, he is being followed by home health agency (receiving OT, PT and social work support, he says nursing is coming in, home health was not clear on this), medications switched to bubble packs and Lyudmila is overseeing this. Listening to Ilia today, I wonder if even with Meals on Wheels and they are not getting enough food in the house. The household is quite economically challenged. -He says he would be interested in going to subacute rehab for a week to get stronger. He seemed quite positive about this and thought it was a good idea. He did not mind being in rehab last time. He would want to go back to [facility]. -He feels stuck in his current apartment. Laments that no one visits him. Lyudmila is a wonderful friend and support, but she sleeps much of the day and he gets up at 8 AM. He wished he had more people to interact with. Given the situation, I wonder if he would be eligible for adult daycare. Sounds like he is willing to consider assisted living at some point. Discussed with case management today. Increase in support services over the last month have definitely been beneficial. However it sounds like more is needed. Unclear if home health agency or primary care office bilingual patient support caseworker will be taking the lead. Optimally, he has ongoing case management long-term. Plan to follow-up with home visit in about a month. Please let me know if patient needs to be seen sooner. (7) Literacy level of illiterate: Status: Acute Assessment and plan: Patient reports that he never learned to read or write. He was held back into grades. Never got the instruction I needed . However, he is able to spell his family and friends names. Clock drawing is good on [employer] testing. Be aware. (8) Advanced care planning/counseling discussion: Status: Acute Assessment and plan: 1.Healthcare agent: Sister Chrissy Stewart who lives in [place] is listed as his healthcare agent. We reviewed this. He would like to change his primary healthcare agent to Lyudmila Bellamy, housemate and friend. Sister Chrissy Stewart would be secondary healthcare agent. Forms completed, signed and witnessed today. 2. Discussed goals of care and CODE STATUS today. We discussed CPR, pros and cons, low likelihood of success, high risk of being more debilitated if successful resuscitation. Patient explains that he would still like us to try just wants, do not try a second time . He does want intubation. He does want to come back to the hospital to be treated for any infections, get antibiotics and IV hydration. (9) Mild cognitive impairment: Status: Acute Assessment and plan: Several providers and housemate Lyudmila have mentioned memory issues, more so in the last few years. Lyudmila notes that these would seem to wax and wane. Attempted [place] today. Difficulty scoring because of literacy issues. Clock drawing was actually quite accurate. He is oriented to month year and place. Unable to recall any of 4 words at 5 minutes. Verbal abstractions unable to do. Further testing unable to do because of literacy issues. He does appear to have some mild cognitive issues likely from history of alcohol use. Difficult to test because of his learning disability. Care team should be aware when giving instructions. Lyudmila will continue to be the person to make appointments and schedule transportation. [facility] All Active Problems (Updated 07/22/22 @ 10:27 by Savi Montez MD) Mild cognitive impairment (Acute) Advanced care planning/counseling discussion (Acute) Literacy level of illiterate (Acute) Palliative care encounter (Acute) Hypomagnesemia (Acute) Hypokalemia (Acute) Discharge planning issues (Acute) DVT prophylaxis (Acute) Acute exacerbation of chronic obstructive pulmonary disease (COPD) (Acute) Acute on chronic right-sided congestive heart failure (Acute) Pneumonia (Acute) Septic shock (Acute) Hypoxia (Acute) Depression (Chronic) Dental abscess (Acute) 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) Abnormal chest CT (Acute) Full code status (Acute) Urinary tract infection (Acute) 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) CAP (community acquired pneumonia) (Acute) Generalized weakness (Acute) Skin tear of left elbow without complication (Acute) Chronic obstructive lung disease (Chronic) Tricuspid regurgitation (Chronic) CAD (coronary artery disease) (Chronic) Hypertension (Chronic) Medical History Abdominal pain Abnormal radiologic findings on diagnostic imaging of renal pelvis, ureter, or bladder Acute on chronic anemia Acute on chronic diastolic (congestive) heart failure Acute on chronic systolic CHF (congestive heart failure) Adenocarcinoma of esophagus From [facility]:Hx GI Cancer...EGD 04/2021 with friable mucosa. SDOne at that time because of GI blooed Afib Alcohol abuse Alcohol abuse, continuous drinking behavior Anemia Bilateral lower extremity edema CAD (coronary artery disease) of artery bypass graft Cerumen impaction CHF, acute on chronic Confusion state COVID-19 COVID-19 Diabetes mellitus Difficulty reading Edema Encounter for colorectal cancer screening Epididymitis, right (08/02/16) Essential hypertension Failure to thrive Fall GERD (gastroesophageal reflux disease) GI bleed GI bleeding H/O malignant neoplasm of stomach Heart failure, left, with LVEF 41-49% History of GI bleed Hoarseness Hydrocele, right (01/23/16) Hyperlipidemia Hypokalemia Hypophosphatemia Kyphoscoliosis Low back pain Malnutrition Mild bibasilar atelectasis Palliative care encounter Pancreatitis Poor hygiene Prediabetes Protein malnutrition Pulmonary hypertension Recent weight loss Rib fractures Shortness of breath Solitary pulmonary nodule Tinnitus, left Tobacco abuse Weight loss Surgical History cardiac cath Coronary Artery Bypass Gaft (CABG) EGD - IV Sedation Esophagectomy H/O colonoscopy (2007) H/O colonoscopy (04/14/18) dr geller, sigmoid diverticulosis, repeat 10 years History of esophagogastroduodenoscopy (EGD) (09/2017) History of hydrocelectomy History of right inguinal hernia repair repair times two sugrical flap of unhealing wound Family History Mother No problems noted. Father No problems noted. Social History Smoking/Tobacco Use Status: Current every day Tobacco Type: cigarettes Smoking packs per day: 1 Smoking cigarettes per day: 20.0 Years smoked: 50 Smoking pack-years: 50.00 Smoking risk assessment performed?: Yes Alcohol Intake: former Drug use: Never Substance use type: does not use What type of physical activity do you participate in: none Do you feel safe at home: Yes Do you feel safe in your relationship?: Yes Exam Narrative Exam Narrative: Very thin and pleasant elderly gentleman, awake and alert. His color is markedly better than when I last saw him at home. He also seems more animated and even smiles once. Coughs once. No dyspnea and able to speak in complete sentences. He has 1+ pretibial edema about a third of the way up which is about the same as a month ago. Results Last Vital Signs Temp 36.3 C L 07/22/22 07:58 Pulse 103 H 07/22/22 07:58 Resp 18 07/22/22 07:58 BP 119/74 07/22/22 07:58 Pulse Ox 98 07/22/22 07:58 Labs 07/22/22 05:45 07/22/22 05:45 Labs: Laboratory Results - last 24 hr 07/19/22 07/22/22 07/22/22 16:00 05:45 05:45 WBC RBC Hgb Hct MCV MCH MCHC RDW Plt Count MPV Immature Gran % Neutrophils % Lymphocytes % Monocytes % Eosinophils % Basophils % Nucleated RBC % Absolute Neutrophils Absolute Lymphocytes Absolute Monocytes Absolute Eosinophils Absolute Basophils Sodium 141 Potassium 3.6 Chloride 104 Carbon Dioxide 28.9 Anion Gap 8.1 BUN 37 H Creatinine 1.1 Est GFR (CKD-EPI 2020) 71.77 Glucose 73 L Calcium 9.4 Magnesium 2.2 C-Reactive Protein 2.95 H Procalcitonin 2.3 Ur Strep pneumoniae Ag Negative 07/22/22 05:45 WBC 10.22 RBC 3.81 L Hgb 11.9 L Hct 36.6 L MCV 96 H MCH 31.2 MCHC 32.5 RDW 14.7 H Plt Count 233 MPV 9.8 Immature Gran % 0.8 Neutrophils % 79.1 Lymphocytes % 13.1 Monocytes % 6.6 Eosinophils % 0.2 Basophils % 0.2 Nucleated RBC % 0.0 Absolute Neutrophils 8.09 H Absolute Lymphocytes 1.34 Absolute Monocytes 0.67 Absolute Eosinophils 0.02 Absolute Basophils 0.02 Sodium Potassium Chloride Carbon Dioxide Anion Gap BUN Creatinine Est GFR (CKD-EPI 2020) Glucose Calcium Magnesium C-Reactive Protein Procalcitonin Ur Strep pneumoniae Ag
[2022-07-22 11:06] VITALS: BP 104/66; PULSE 103; RESP 16; TEMP 36.8; O2SAT 97
[2022-07-22] MEDS: Insulin Aspart 300 UNITS/3 ML PEN SC (11:50)
--- NOTE | 2022-07-22 14:31 | CMPROGNOTE_ITS ---
- If Service Date Differs Date of service: 07/22/22 Time of Service: 14:31 Care Management Progress Note S/O: Ilia is sitting in his recliner when CM met with him. He is awake and easily engages in conversation today. Ilia met with Palliative today and completed HCA form. Ilia also spoke with his roommate Lyudmila and is now agreeable to go to SNF for STR, prior to discharging back home. A referral is sent to [facility] at his request. CM spoke with Lyudmila and she identifies herself as being a caregiver for Ilia, and would like Ilia to live at home as long as possible but needs more caregiver support. CM supported Ilia in filling out a [facility] application to see if he would be eligible for increased home/community support following discharge. LTM application is faxed and mailed. CM will continue to support pt and his discharge planning considerations. 1400 Ilia is offered and accepted a bed at [facility], when medically ready. A: 71 year old male admitted to [facility] on 07/20/22 for Septic Shock due to pneumonia, CHF P: Ilia is being closely monitored and treated. Palliative consult is ordered. SNF vs. Home with resumption of services when medially ready for discharge. Ilia accepted a bed offer at [facility]. CM will continue to support patient and discharge planning considerations.
[2022-07-22] MEDS: AZITHROMYCIN 500 MG in Normal Saline 250 ML 250 MG IVPB (15:37)
[2022-07-22 15:59] VITALS: BP 116/72; PULSE 73; RESP 16; TEMP 36.9; O2SAT 96
--- NOTE | 2022-07-22 16:58 | W.PM.PROGNOT ---
Date of Service Date of service: 07/22/22 Time of Service: 16:58 Assessment and Plan Assessment and plan (1) Septic shock: Status: Resolved Assessment and plan: 7 day course of Levaquin upon discharge. Sputum gram stain w/ few GPC and few WBC and rare yeast. Blood cultures no growth to date. (2) Pneumonia: Status: Acute Assessment and plan: As above CT of chest demonstrates new left sided infiltrates; previous right basal and RML infiltrates seen in October [address] Ayala has indicated that his pulmonary infilatrates have waxed and waned. She will follow w/ him on outpatient basis and arrange follow up imaging. (3) Acute respiratory failure with hypoxia: Status: Resolved Assessment and plan: Multifactorial - due to underlying emphysema w/ pulmonary fibrosis w/ superimposed acute CAP; + compponent of right HF (echo demonstrated RV enlargement w/ paradoxical septal motion c/w RV volume overload. He has moderate PHTN and has peripheral edema therefore I will give him iv lasix and monitor his response. As above No longer requiring respiratory support. (4) Acute on chronic right-sided congestive heart failure: Status: Acute Assessment and plan: as above (5) Hypokalemia: Status: Resolved Assessment and plan: Repleted (6) Hypomagnesemia: Status: Resolved Assessment and plan: Repleted (7) DVT prophylaxis: Status: Acute Assessment and plan: SC enoxaparin (8) Discharge planning issues: Status: Acute Assessment and plan: remains full code. seen by palliative for goals of care plan for discharge to [facility] tomorrow. discussed with Dr Monroe Subjective Subjective Patient reports: tolerating liquids well, tolerating a regular diet and afebrile; denies shortness of breath Exam Const General: no acute distress, frail appearing and ill appearing chronically Nutritional Appearance: thin Orientation: alert, awake and oriented x3 HENMT Head: normal to inspection Chest Chest: normal inspection of the chest Resp Effort & Inspection: normal respiratory effort Auscultation: diminished lung sounds Cardio Rate: regular rate Rhythm: regular rhythm General: other (cervantes draining clear yellow urine) Neuro General: patient alert and patient awake Extrem General: normal to inspection, full ROM and no pedal edema Objective Last Vital Signs Temp 36.9 C 07/22/22 15:59 Pulse 73 07/22/22 15:59 Resp 16 07/22/22 15:59 BP 116/72 07/22/22 15:59 Pulse Ox 96 07/22/22 15:59 Laboratory Results - last 24 hr 07/19/22 07/22/22 07/22/22 16:00 05:45 05:45 WBC RBC Hgb Hct MCV MCH MCHC RDW Plt Count MPV Immature Gran % Neutrophils % Lymphocytes % Monocytes % Eosinophils % Basophils % Nucleated RBC % Absolute Neutrophils Absolute Lymphocytes Absolute Monocytes Absolute Eosinophils Absolute Basophils Sodium 141 Potassium 3.6 Chloride 104 Carbon Dioxide 28.9 Anion Gap 8.1 BUN 37 H Creatinine 1.1 Est GFR (CKD-EPI 2020) 71.77 Glucose 73 L Calcium 9.4 Magnesium 2.2 C-Reactive Protein 2.95 H Procalcitonin 2.3 Ur Strep pneumoniae Ag Negative 07/22/22 05:45 WBC 10.22 RBC 3.81 L Hgb 11.9 L Hct 36.6 L MCV 96 H MCH 31.2 MCHC 32.5 RDW 14.7 H Plt Count 233 MPV 9.8 Immature Gran % 0.8 Neutrophils % 79.1 Lymphocytes % 13.1 Monocytes % 6.6 Eosinophils % 0.2 Basophils % 0.2 Nucleated RBC % 0.0 Absolute Neutrophils 8.09 H Absolute Lymphocytes 1.34 Absolute Monocytes 0.67 Absolute Eosinophils 0.02 Absolute Basophils 0.02 Sodium Potassium Chloride Carbon Dioxide Anion Gap BUN Creatinine Est GFR (CKD-EPI 2020) Glucose Calcium Magnesium C-Reactive Protein Procalcitonin Ur Strep pneumoniae Ag Time Spent with Patient Time Spent with Patient: 35-49 minutes Time was spent: obtaining and/or reviewing separately otained hiistory, ordering medications,tests, procedures, referring, communicating with other health career development facilitator, indepentently interpreting results and counseling the patient
--- NOTE | 2022-07-22 17:15 | CHAPLAIN ---
Ilia was just beginning to eat dinner when I visited. I introduced myself, explained my role and offered support. I'll continue to visit.
[2022-07-22] MEDS: Potassium Chloride 20 MEQ TABCR PO (18:15)
[2022-07-22] MEDS: Enoxaparin 40 MG/0.4 ML SYR SC (19:06)
[2022-07-22 19:25] VITALS: BP 103/67; PULSE 107; RESP 16; TEMP 36.7; O2SAT 97
[2022-07-22] MEDS: Mirtazapine 15 MG TAB 7.5 MG PO (21:33)
[2022-07-23] MEDS: Albuterol/Ipratropium 3 ML UPD VIAL UPD ×2 (00:18→06:37)
[2022-07-23 00:20] VITALS: BP 125/80; PULSE 95; RESP 18; TEMP 36; O2SAT 97
[2022-07-23 03:20] VITALS: BP 97/60; PULSE 101; RESP 16; TEMP 36.7; O2SAT 93
[2022-07-23] MEDS: Normal Saline Flush 10 ML SYR IVP ×2 (06:37→09:02)
[2022-07-23] MEDS: PIPERACILLIN/TAZO 4.5 GM in Normal Saline 100 ML IVPB (06:37)
[2022-07-23 07:40] VITALS: BP 99/71; PULSE 110; RESP 14; TEMP 36.7; O2SAT 95
[2022-07-23] MEDS: Tiotropium/Olodaterol 10 PUFF INHALER 2 PUFF IH (07:46)
[2022-07-23 08:20] VITALS: BP 101/58
[2022-07-23] MEDS: Pantoprazole 40 MG TABCR PO (09:01)
[2022-07-23] MEDS: Nicotine 14 MG/24 HR PATCH TD (09:01)
[2022-07-23] MEDS: Gabapentin 300 MG CAP PO (09:02)
[2022-07-23] MEDS: Furosemide 40 MG/4 ML VIAL IVP (09:02)
--- NOTE | 2022-07-23 09:02 | PDOC.CMPRO ---
- If Service Date Differs Date of service: 07/23/22 Time of Service: 09:02 Care Management Progress Note S/O: Ilia is ready for discharge and is [facility]. Covid test is ordered. CM will coordinate discharge and arrange transport. A: 71 year old male admitted to [facility] on 07/20/22 for Septic Shock due to pneumonia, CHF P: Ilia is being closely monitored and treated. Palliative consult is ordered. SNF vs. Home with resumption of services when medially ready for discharge. Ilia accepted a bed [facility] at [facility]. CM will continue to support patient and discharge planning considerations.
--- NOTE | 2022-07-23 09:53 | PDOC.CMDIS ---
- If Service Date Differs Date of service: 07/23/22 Time of Service: 09:53 LACE Index Scoring Tool - Questions: Length of Stay (in days): 4 - 6 Acuity (Admit via E.D.?): Yes Comorbidities: Diabetes w/o Complication, Congestive Heart Failure, Chronic Pulmonary Disease, Metastatic Solid Tumor (HX of GI Cancer) E.D. Visits: 9 - Answers: Total Score: 16 Risk of Readmission: High Risk Care Management Discharge Reason for Hospitalization: Septic Shock due to pnumonia, CHF Discharge Plan: Ilia is discharged to [facility] for STR. Ilia will follow up with facility/community providers and his discharge plan of care as prescribed. Patient/Family Education Needs: Review discharge instructions, limitations and plan to follow up with community providers. Discuss ask me three and goals of self care. Services Needed at Discharge: [facility] ([facility])
[2022-07-23 10:13] LABS: Source Nasal/Nares
[2022-07-23 10:45] LABS: COVID-19 PCR Negative (Negative)
--- NOTE | 2022-07-23 11:49 | DSE_ITS ---
Date of service: 07/23/22 Time of Service: 12:06 DS: Diagnosis Discharge Diagnosis (1) Septic shock: Status: Resolved (2) Pneumonia: Status: Acute (3) Acute respiratory failure with hypoxia: Status: Resolved (4) Acute on chronic right-sided congestive heart failure: Status: Acute (5) Hypokalemia: Status: Resolved (6) Hypomagnesemia: Status: Resolved Discharge Plan Disposition Patient Disposition: Snf Facility(SNF) Condition: Stable Discharge Details Reason For Visit: Septic Shock due to Pneumonia, CHF Admit Date/Time: 07/19/22 17:02 Admit Provider: Shakila Mayberry Attending Provider: Shakila Mayberry Primary Care Provider: Silvina Perdue [facility] Course Hospital Course: This is a 71-year-old male patient with a complex medical history including COPD pulmonary fibrosis coronary artery disease heart failure with preserved ejection fraction esophageal and gastric malignancy chronic bilateral lower extremity edema who presented to the emergency department with increased shortness of breath. Work-up was concerning for pneumonia. Also found to be in septic shock requiring pressors. Blood cultures were obtained and remained with no growth. He was admitted to the intensive care unit for further management. Hospital course was complicated with acute on chronic right sided heart failure. He received IV diuresis with good effect. Echocardiogram showed EF of 60% with no significant wall motion abnormalities please see report for further details RSVP 53 mmHg. There was also suspicion of a urinary tract infection which culture was not indicated and antibiotics he was on should have cover most pathogens. He underwent unit renal ultrasound which showed no findings of the kidneys and no hydronephrosis. He was seen by palliative care to discuss goals of care and patient does want to remain a full code at this point. He would want to be treated for any infections get IV antibiotics and IV hydration. They will continue to follow him on an outpatient basis if needed. He is now medically stable and ready for discharged home. It was believed he could benefit from inpatient rehabilitation prior to discharge to home with services. Case management placed referrals and he was accepted at [facility] and rehab. He will be discharged on levofloxacin to complete 7 more days. Discharge discussed with Dr. Monroe Home Meds and New Rx's Prescriptions: New Stiolto Respimat 2.5-2.5 mcg/actuation Mist 2 puff inhalation DAILY Qty: 4 0RF levofloxacin 750 mg tablet 750 mg PO DAILY Qty: 7 0RF Continued furosemide [Lasix] 20 mg tablet 20 mg PO QAM Patient Comments: pt states he has not picked up this med Combivent Respimat 20-100 mcg/actuation mist 1 puff inhalation Q6H PRN gabapentin 300 mg capsule 300 mg PO TID Patient Comments: Take 1 capsule by mouth three times a day metoprolol tartrate 25 mg tablet 25 mg PO DAILY Patient Comments: Take 0.5 tablet by mouth twice a day mirtazapine 7.5 mg tablet 7.5 mg PO DAILY Patient Comments: Take 1 tablet by mouth at bedtime Discharge Instructions Instructions: Pneumonia (DC) Stand Alone Forms: Nursing Discharge Form Referrals: Silvina Perdue MD [Primary Care Provider] - (upon discharge) Activity:: Activity as Tolerated Equipment/Supplies:: No Equipment Needed Diet:: As Tolerated Discharge Orders Discharge Orders: Discharge Order (Routine); Ordered 07/23/22 Ordered By: Kassandra Esparza DS: Summary Time Spent with Patient providing and/or coordinating discharge services: Greater than 30 minutes Status at Discharge Functional status at discharge: uses cane/walker Overall status at discharge: patient is progressing back to baseline Mental Status: mental status grossly normal Speech and Movement: speech and movement normal Mood: congruent mood Affect: normal affect Exam Const General: no acute distress, frail appearing and ill appearing chronically Nutritional Appearance: thin Orientation: alert, awake and oriented x3 HENMT Head: normal to inspection Chest Chest: normal inspection of the chest Resp Effort & Inspection: normal respiratory effort Auscultation: diminished lung sounds Cardio Rate: regular rate Rhythm: regular rhythm Neuro General: patient alert and patient awake Extrem General: normal to inspection, full ROM and no pedal edema Psych Mental Status: mental status grossly normal Speech and Movement: speech and movement normal Mood: congruent mood Affect: normal affect DS: Data Vitals/I&O Vitals and I&O: Vital Signs Temperature 36.7 C 07/23/22 07:40 Temperature Source Tympanic 07/23/22 07:40 Pulse 110 H 07/23/22 07:40 Pulse Rhythm Irregular 07/23/22 07:40 Pulse 107 H 07/20/22 15:45 Respiratory Rate 14 07/23/22 07:40 Respiratory Effort Normal, Non-Labored 07/23/22 07:40 Respiratory Depth Normal 07/23/22 07:40 Respiratory Pattern Normal 07/23/22 07:40 Blood Pressure 101/58 L 07/23/22 08:20 Blood Pressure Mean 84 07/20/22 15:31 Blood Pressure Position Supine 07/19/22 18:30 Pulse Oximetry 95 07/23/22 07:40 Oxygen Delivery Method Room Air 07/23/22 07:40 Oxygen Flow Rate 0 07/23/22 07:40 Fraction of Inspired Oxygen (FIO2) 21 07/21/22 13:36 Pain Level 0 07/23/22 07:[address] mask in place 07/23/22 00:20 Intake & Output 07/22/22 07/22/22 07/23/22 11:59 23:59 11:59 Intake Total 1942 / 2712 770 / 2712 330 / 330 Output Total 2825 / 4325 1500 / 4325 600 / 600 Balance -883 / -1613 -730 / -1613 -270 / -270 Weight 48.625 kg 44.7 kg Intake: IV 200 / 550 350 / 550 110 / 110 Oral 1742 / 2162 420 / 2162 220 / 220 Output: Urine 2825 / 4325 1500 / 4325 600 / 600 Other: Urine Color Yellow Yellow Yellow Urine Appearance Clear Cloudy Clear Urine Odor None Normal Comment patient also saturated bed with urine, changed at this time Stool Size Moderate Moderate Moderate Stool Characteristics Soft Soft Soft Liquid Formed Voiding Methods Urinal Urinal Urinal Incontinent Data Completed and Pending Labs on day of discharge: Labs from last 24 hours 07/23/22 09:50 COVID-19 Source Nasal/Nares SARS-CoV-2 (PCR) Negative Preliminary micro results at discharge 07/21/22 00:40 Sputum Culture - Preliminary Sputum Lore Albicans Normal Jenny 07/19/22 16:15 Blood Culture - Preliminary Blood NO GROWTH 72 HOURS 07/19/22 16:00 Blood Culture - Preliminary Blood NO GROWTH 72 HOURS PFSH All Active Problems (Updated 07/22/22 @ 17:50 by Kassandra Esparza NP) Mild cognitive impairment (Acute) Advanced care planning/counseling discussion (Acute) Literacy level of illiterate (Acute) Palliative care encounter (Acute) Discharge planning issues (Acute) DVT prophylaxis (Acute) Acute exacerbation of chronic obstructive pulmonary disease (COPD) (Acute) Acute on chronic right-sided congestive heart failure (Acute) Pneumonia (Acute) Hypoxia (Acute) Depression (Chronic) Dental abscess (Acute) 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) Abnormal chest CT (Acute) Full code status (Acute) Urinary tract infection (Acute) 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) CAP (community acquired pneumonia) (Acute) Generalized weakness (Acute) Skin tear of left elbow without complication (Acute) Chronic obstructive lung disease (Chronic) Tricuspid regurgitation (Chronic) CAD (coronary artery disease) (Chronic) Hypertension (Chronic) Medical History Abdominal pain Abnormal radiologic findings on diagnostic imaging of renal pelvis, ureter, or bladder Acute on chronic anemia Acute on chronic diastolic (congestive) heart failure Acute on chronic systolic CHF (congestive heart failure) [place] [facility] [place]...EGD 04/2021 with friable mucosa. SDOne at that time because of GI blooed Afib Alcohol abuse Alcohol abuse, continuous drinking behavior Anemia Bilateral lower extremity edema CAD (coronary artery disease) of artery bypass graft Cerumen impaction CHF, acute on chronic Confusion state COVID-19 COVID-19 Diabetes mellitus Difficulty reading Edema Encounter for colorectal cancer screening Epididymitis, right (08/02/16) Essential hypertension Failure to thrive Fall GERD (gastroesophageal reflux disease) GI bleed GI bleeding H/O malignant neoplasm of stomach Heart failure, left, with LVEF 41-49% History of GI bleed Hoarseness Hydrocele, right (01/23/16) Hyperlipidemia Hypokalemia Hypophosphatemia Kyphoscoliosis Low back pain Malnutrition Mild bibasilar atelectasis Palliative care encounter Pancreatitis Poor hygiene Prediabetes Protein malnutrition Pulmonary hypertension Recent weight loss Rib fractures Shortness of breath Solitary pulmonary nodule Tinnitus, left Tobacco abuse Weight loss Surgical History cardiac cath Coronary Artery Bypass Gaft (CABG) EGD - IV Sedation Esophagectomy H/O colonoscopy (2007) H/O colonoscopy (04/14/18) dr geller, sigmoid diverticulosis, repeat 10 years History of esophagogastroduodenoscopy (EGD) (09/2017) History of hydrocelectomy History of right inguinal hernia repair repair times two sugrical flap of unhealing wound Family History Mother No problems noted. Father No problems noted. Social History Smoking/Tobacco Use Status: Current every day Tobacco Type: cigarettes Smoking packs per day: 1 Smoking cigarettes per day: 20.0 Years smoked: 50 Smoking pack- years: 50.00 Smoking risk assessment performed?: Yes Alcohol Intake: former Drug use: Never Substance use type: does not use What type of physical activity do you participate in: none Do you feel safe at home: Yes Do you feel safe in your relationship?: Yes Time Spent with Patient Time Spent with Patient: 45-69 minutes Time was spent: preparing to see the patient(eg.review tests), obtaining and/or reviewing separately otained hiistory, ordering medications,tests, procedures, referring, communicating with other health career technical education teacher, indepentently interpreting results, counseling the patient and care coordination
--- NOTE | 2022-07-23 13:16 | PT.INTREAT ---
PT Notes Visit Reasons: Septic Shock due to Pneumonia, CHF Precaution: Activity as tolerated SUBJECTIVE: ?Pt is pleasant and agreeable to participating in PT.? ?Dressed and packed ready for transfer to go to SNF this afternoon. OBJECTIVE: ? PAIN: No c/o pain? BED MOBILITY/TRANSFERS? Sit-stand: S? Stand-sit: S ? GAIT? Assistive Device: SPC/ IV pole due to pt finishing antibiotic drip. ? Weight bearing: Full Assist: SBA ? Distance:? 150' x2 ? Deviation: Cueing for increased step length, slow pacing ? ASSESSMENT:? Patient tolerated session well without complaint.? Pt able to complete gait training without taking rest break. PLAN: Pt DC to SNF this afternoon. TREATMENT CODE/TIME: ?30 minutes;? [id number] (9:05-9:35am)
[2022-07-25 13:00] LABS: Mycoplasma Pneumoniae PCR Negative; Specimen source Sputum
== END 2022-07-23 13:18 | disposition skilled nursing facility (03) | DRG 871 ==
LOC: ER 17:32 → ICU 18:02 → MS 07-20 15:53
PROVIDERS: Internal Medicine; Nurse Practitioner Acute Care; Admitting Provider Internal Medicine; Emergency Provider Physician Assistant; PCP Family Medicine; Visit Provider Internal Medicine
DX: A41.9 Sepsis, unspecified organism (principal); J18.9 Pneumonia, unspecified organism; R65.21 Severe sepsis with septic shock; J96.01 Acute respiratory failure with hypoxia; J44.0 Chronic obstructive pulmonary disease with (acute) lower respiratory infection; Z68.1 Body mass index [BMI] 19.9 or less, adult; J44.1 Chronic obstructive pulmonary disease with (acute) exacerbation; E46 Unspecified protein-calorie malnutrition; I50.32 Chronic diastolic (congestive) heart failure; I50.813 Acute on chronic right heart failure; I87.2 Venous insufficiency (chronic) (peripheral); E11.9 Type 2 diabetes mellitus without complications; I25.10 Atherosclerotic heart disease of native coronary artery without angina pectoris; K21.9 Gastro-esophageal reflux disease without esophagitis; R62.7 Adult failure to thrive; F10.10 Alcohol abuse, uncomplicated; R53.1 Weakness; F32.A Depression, unspecified; R33.9 Retention of urine, unspecified; I11.0 Hypertensive heart disease with heart failure; I07.1 Rheumatic tricuspid insufficiency; D64.9 Anemia, unspecified; F17.210 Nicotine dependence, cigarettes, uncomplicated; Z90.49 Acquired absence of other specified parts of digestive tract; Z85.01 Personal history of malignant neoplasm of esophagus; Z85.028 Personal history of other malignant neoplasm of stomach; Z86.16 Personal history of COVID-19; E87.6 Hypokalemia; E83.42 Hypomagnesemia; J84.10 Pulmonary fibrosis, unspecified; I27.20 Pulmonary hypertension, unspecified; G31.84 Mild cognitive impairment of uncertain or unknown etiology
CPT/HCPCS: 36415; 71250; 76770; 80048; 80053; 82805; 84145; 87040; 87449; 87635; 87637; 93005; 93306; 94640; 96361; 96365; 96367; 96375; 97110; 97162; 97530; 99291; J1650; 36600; 71045; 81003; 81015; 83605; 83735; 83880; 84484; 85025; 86140; 87070; 87205; 87581; 87899; 93010; 94660; 94664; 94667; 94668; 99232; 99233; 99239; J0131; J0456; J1940; J2543; J2930; J3480; J3490; J7512; J7620

== ENCOUNTER 2022-08-08 01:23 | Emergency (ER) | payer MEDICARE, MEDICAID, SELFPAY ==
[2022-08-08] VITALS (55 sets, daily range): BP systolic 84–168; BP diastolic 53–109; PULSE 88–126; RESP 10–23; TEMP 36.5; O2SAT 84–890
--- NOTE | 2022-08-08 01:15 | RT.EKG_ITS ---
APPROVED REPORT Exam: Resting ECG Reason for Exam: overdose Patient Location: E HR:123 bpm ECG Measurements Heart Rate 123 AXIS LA [id number] P [id number] QRSd 81 QRS 72 QT 307 T -74 QTc 440 Conclusion Atrial fibrillation...? atrial activity Probable anterolateral infarct, age indeterm...Q >35mS, T neg, V2-V6,I,aVL Physician: notable artifact, questionable elevation in V3, no depressions. no stemi
--- NOTE | 2022-08-08 01:15 | DI.RAD_ITS ---
Exam(s) XR PORTABLE CHEST AP EXAM: XR PORTABLE CHEST AP CLINICAL HISTORY: overdose, sob, r/o pneumonia. TECHNIQUE: 2D digital imaging was performed. COMPARISON: CR XR PORTABLE CHEST AP from 07/19/2022 FINDINGS: Single AP portable view. Sternotomy wires again noted. Previous CABG. Heart size unchanged. Mediastinum not widened. Appears to be some improvement in the left upper lobe infiltrate. However, there is confluent infilt rate in the left lung base, slightly more so than previous. No obvious pleural effusions. IMPRESSION: Increasing left lower lobe infiltrate. DATA REPOSITORY: RADIATION DOSE DELIVERED:
--- NOTE | 2022-08-08 01:26 | ED.GENADUL_ITS ---
Discharge Plan Disposition Patient Disposition: Home Condition: Stable Discharge Details Clinical Impression: Overdose, Aspiration pneumonitis Primary Care Provider: Silvina Perdue ED Provider: Juarez Saleem Home Meds and New Rx's Prescriptions: New amoxicillin-pot clavulanate 875-125 mg tablet 1 tab PO BID Qty: 20 0RF Continued furosemide [Lasix] 20 mg tablet 20 mg PO QAM Patient Comments: pt states he has not picked up this med Combivent Respimat 20-100 mcg/actuation mist 1 puff inhalation Q6H PRN gabapentin 300 mg capsule 300 mg PO TID Patient Comments: Take 1 capsule by mouth three times a day metoprolol tartrate 25 mg tablet 25 mg PO DAILY Patient Comments: Take 0.5 tablet by mouth twice a day mirtazapine 7.5 mg tablet 7.5 mg PO DAILY Patient Comments: Take 1 tablet by mouth at bedtime Stiolto Respimat 2.5-2.5 mcg/actuation Mist 2 puff inhalation DAILY Qty: 4 0RF Discontinued levofloxacin 750 mg tablet 750 mg PO DAILY Qty: 7 0RF Discharge Instructions Instructions: Aspiration Pneumonia (DC) Additional Instructions: At this time it is concerning that you may have had some mild aspiration pneumonia. The antibiotic Augmentin has been sent to your pharmacy on file. Please take this as directed. If you notice any worsening of your symptoms, or any new symptoms such as vomiting, diarrhea, fever, chills, shortness of breath, chest pain, numbness, weakness, or fainting , please return immediately to the emergency department for reevaluation. Please follow up with your primary care provider as soon as possible for reassessment and reevaluation. As always, it was a pleasure participating in your medical care today. Referrals: Silvina Perdue MD [Primary Care Provider] - Medical Decision Making 71-year-old male with a? history of pulmonary fibrosis with emphysema,? Afib, coronary artery dz, diastolic CHF with an EF of 60%, HTN, EtOH abuse in remission, cognitive impairment and reported hx GI tract cancer who presents today via EMS for evaluation after overdose. Per EMS the patient's roommate gave him something to snort, and after this the patient became apneic. When fire got there they gave him intranasal Narcan to no effect. After this he was given IV Narcan by EMS and this roused the patient immediately. He went from being apneic to breathing fully on his own and fully aware of his surroundings. Patient and roommate do not know what he snorted exactly. Patient states he does not recall any other events. Currently the patient has no complaints whatsoever. No other modifying factors. Exam demonstrates stable vital signs, slightly rhonchorous breath sounds. +2 pitting edema of the lower extremities bilaterally. Patient appears consistent with his baseline appearance, however I am concerned for aspiration pneumonia amongst other potential etiologies after his overdose. We will get an x-ray, monitor closely and reassess. 3:31 AM Patient remains notably stable here, oxygenation stable at his base oxygen requirements. Chest x-ray shows questionable groundglass opacities in left lower lobe which may be secondary to atelectasis pneumonitis or potential aspiration pneumonia. We will give Unasyn here, and a prescription for Augmentin for home. Laboratory work-up otherwise remained stable. WBC only 12. No bandemia. Electrolytes stable, renal function at baseline, proBNP is normal levels. Troponin stable/normal. Salicylates acetaminophen alcohol and UDS are negative. As the patient notably responded to Narcan, I suspect it was a synthetic opiate that was the cause of his initial symptoms. Patient otherwise looks well and is stable for discharge. We did give him 20 mg of his regular Lasix as he normally does not take his meds at home. Patient stable for discharge. I have extensively reviewed the treatment plan and discharge instructions with the patient. I have addressed all patient concerns at this time. The patient was made aware of what symptoms to monitor for that would warrant a return to the emergency department. Discussed the plan with the patient, they demonstrate verbal understanding and agreement with our assessment and plan at this time. The documentation in this chart was dictated using [employer] dictation software. Please excuse any dictation errors. FINDINGS: Lungs: Lungs are hyperexpanded, compatible chronic obstructive pulmonary physiologic changes. Decreased vascularity within the upper lobes bilaterally, compatible with centrilobular emphysema. Ground-glass opacities within the left lower lobe, possibly small left pleural effusion and associated atelectasis/pneumonitis. Pleural spaces: Minimal calcification of the left inferior pleura. Heart/Mediastinum: Mild cardiomegaly, particularly the right atrium. Vasculature: Atherosclerotic vascular disease. Bones/joints: Changes of prior sternotomy. IMPRESSION: Ground-glass opacities within the left lower lobe, possibly small left pleural effusion and associated atelectasis/pneumonitis. Thank you for allowing us to participate in the care of your patient. Dictated and Authenticated by: Sin Armas MD 08/08/2022 2:20 AM Eastern Time ([place] & [place]) HPI General Date/Time Provider Initiated Documentation: 08/08/22 01:24 . HPI Narrative: 71-year-old male with a? history of pulmonary fibrosis with emphysema,? Afib, coronary artery dz, diastolic CHF with an EF of 60%, HTN, EtOH abuse in remission, cognitive impairment and reported hx GI tract cancer who presents today via EMS for evaluation after overdose. Per EMS the patient's roommate gave him something to snort, and after this the patient became apneic. When fire got there they gave him intranasal Narcan to no effect. After this he was given IV Narcan by EMS and this roused the patient immediately. He went from being apneic to breathing fully on his own and fully aware of his surroundings. Patient and roommate do not know what he snorted exactly. Patient states he does not recall any other events. Currently the patient has no complaints whatsoever. No other modifying factors. Related Data Home Medications Medication Instructions Recorded Confirmed ipratropium 20 mcg-albuterol 100 1 puff inhalation Q6H PRN 06/10/22 07/19/22 mcg/actuation mist for inhalation (Combivent Respimat) furosemide 20 mg tablet (Lasix) 20 mg PO QAM 06/24/22 07/19/22 gabapentin 300 mg capsule 300 mg PO TID 07/19/22 07/19/22 metoprolol tartrate 25 mg tablet 25 mg PO DAILY 07/19/22 07/19/22 mirtazapine 7.5 mg tablet 7.5 mg PO DAILY 07/19/22 07/19/22 tiotropium 2.5 mcg-olodaterol 2.5 2 puff inhalation DAILY #4 grams 07/23/22 mcg/actuation mist for inhalation (Stiolto Respimat) amoxicillin 875 mg-potassium 1 tab PO BID #20 tabs 08/08/22 clavulanate 125 mg tablet Previous Rx's Medication Instructions Recorded tiotropium 2.5 mcg-olodaterol 2.5 2 puff inhalation DAILY #4 grams 07/23/22 mcg/actuation mist for inhalation (Stiolto Respimat) amoxicillin 875 mg-potassium 1 tab PO BID #20 tabs 08/08/22 clavulanate 125 mg tablet Allergies Allergy/AdvReac Type Severity Reaction Status Date / Time No Known Allergies Allergy Verified 08/08/22 02:10 General Stated Complaint: OD/Poison ANAMIKA: 2 Review of Systems All systems reviewed & are unremarkable except as noted in HPI and below PFSH All Active Problems (Updated 08/08/22 @ 03:34 by Juarez Saleem DO) Overdose (Acute) Aspiration pneumonitis (Acute) Mild cognitive impairment (Acute) Advanced care planning/counseling discussion (Acute) Literacy level of illiterate (Acute) Palliative care encounter (Acute) Discharge planning issues (Acute) DVT prophylaxis (Acute) Acute exacerbation of chronic obstructive pulmonary disease (COPD) (Acute) Acute on chronic right-sided congestive heart failure (Acute) Pneumonia (Acute) Hypoxia (Acute) Depression (Chronic) Dental abscess (Acute) 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) Abnormal chest CT (Acute) Full code status (Acute) Urinary tract infection (Acute) 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) CAP (community acquired pneumonia) (Acute) Generalized weakness (Acute) Skin tear of left elbow without complication (Acute) Chronic obstructive lung disease (Chronic) Tricuspid regurgitation (Chronic) CAD (coronary artery disease) (Chronic) Hypertension (Chronic) Medical History Abdominal pain Abnormal radiologic findings on diagnostic imaging of renal pelvis, ureter, or bladder Acute on chronic anemia Acute on chronic diastolic (congestive) heart failure Acute on chronic systolic CHF (congestive heart failure) Adenocarcinoma of esophagus From [facility] [place]:Hx GI Cancer...EGD 04/2021 with friable mucosa. SDOne at that time because of GI blooed Afib Alcohol abuse Alcohol abuse, continuous drinking behavior Anemia Bilateral lower extremity edema CAD (coronary artery disease) of artery bypass graft Cerumen impaction CHF, acute on chronic Confusion state COVID-19 COVID-19 Diabetes mellitus Difficulty reading Edema Encounter for colorectal cancer screening Epididymitis, right (08/02/16) Essential hypertension Failure to thrive Fall GERD (gastroesophageal reflux disease) GI bleed GI bleeding H/O malignant neoplasm of stomach Heart failure, left, with LVEF 41-49% History of GI bleed Hoarseness Hydrocele, right (01/23/16) Hyperlipidemia Hypophosphatemia Kyphoscoliosis Low back pain Malnutrition Mild bibasilar atelectasis Pancreatitis Poor hygiene Prediabetes Protein malnutrition Pulmonary hypertension Recent weight loss Rib fractures Shortness of breath Solitary pulmonary nodule Tinnitus, left Tobacco abuse Weight loss Surgical History cardiac cath Coronary Artery Bypass Gaft (CABG) EGD - IV Sedation Esophagectomy H/O colonoscopy (2007) H/O colonoscopy (04/14/18) dr geller, sigmoid diverticulosis, repeat 10 years History of esophagogastroduodenoscopy (EGD) (09/2017) History of hydrocelectomy History of right inguinal hernia repair repair times two sugrical flap of unhealing wound Family History Mother No problems noted. Father No problems noted. Social History Smoking/Tobacco Use Status: Current every day Tobacco Type: cigarettes Smoking packs per day: 1 Smoking cigarettes per day: 20.0 Years smoked: 50 Smoking pack- years: 50.00 Smoking risk assessment performed?: Yes Alcohol Intake: former Drug use: Never Substance use type: does not use What type of physical activity do you participate in: none Do you feel safe at home: Yes Do you feel safe in your relationship?: Yes Exam Narrative Exam Narrative: 1.Const: Well-nourished, Well-developed, appearing stated age 2.Eyes: PERRL, no conjunctival injection, and symmetrical lids. 3.ENT: Atraumatic external nose and ears. Moist MM. Neck: Symmetric, trachea midline, No thyromegaly. 4.CVS: +S1/S2, No murmurs or gallops. Peripheral pulses 2+ and equal in all extremities. Brisk capillary refill in all extremities. Rhonchorous breath sounds clear to auscultation bilaterally. No wheezes rales or rhonchi 6.GI: Soft, Nontender/Nondistended, No hepatosplenomegaly. No guarding or rebound. 7.MSK: Normocephalic/Atraumatic, Extremities w/o deformity or ttp No cyanosis or clubbing, Normal movement of all extremities. +2 pitting edema bilaterally in the lower extremities 8.Skin: Warm, Dry. No rashes or lesions. 9.Neuro: lead radiologic technologist II-XII grossly intact. Sensation grossly intact, no focal neurologic deficits. 10.Psych: (AAO) x3. Appropriate mood and affect Course Vital Signs Vital signs: Vital Signs Temperature 36.5 C 08/08/22 01:15 Pulse 104 H 08/08/22 01:15 Respiratory Rate 08/08/22 01:15 Pulse Oximetry 89 L 08/08/22 01:15 Temperature 36.5 C 08/08/22 01:15 Pulse 104 H 08/08/22 01:15 Respiratory Rate 08/08/22 01:15 Blood Pressure Position Supine 08/08/22 01:15 Pulse Oximetry 89 L 08/08/22 01:15 Oxygen Delivery Method Room Air 08/08/22 01:15 Oxygen Flow Rate 0 08/08/22 01:15
[2022-08-08 01:44] LABS: Abs Immature Grans 0.12 10^3/uL (0.0-0.06); Absolute Basophil Count 0.04 10^3/uL (0.0-0.2); Absolute Eosinophil Count 0.23 10^3/uL (0.0-0.7); Absolute Lymphocyte Count 1.45 10^3/uL (1.2-3.4); Absolute Monocyte Count 0.83 10^3/uL (0.1-0.8); Absolute Neutrophil Count 9.93 10^3/uL (1.2-6.7); Basophils % 0.3; Eosinophils % 1.8; HCT 40.6 % (40.0-50.0); HGB 12.3 g/dL (13.5-17.5); Lymphocytes % 11.5; MCH 30.8 pg (27.0-33.0); MCHC 30.3 % (32.0-36.0); MCV 102 fL (80-95); MPV 9.2 fL (8.0-11.0); Monocytes % 6.6; Neutrophils % 78.8; Platelet Count 266 10^3/uL (130-400); RBC 3.99 10^6/uL (4.36-5.78); RDW 14.8 % (11.8-14.1); RDW-SD 55.8 fL
[2022-08-08 02:03] LABS: Salicylate < 2.8 mg/dL (<2.8)
[2022-08-08 02:07] LABS: ALT 37 U/L (16-63); AST 57 U/L (15-37); Acetaminophen < 2 ug/mL (10-30); Alkaline Phosphatase 322 U/L (46-116); Anion Gap 10.3 mmol/L (3-11); BUN 30 mg/dL (7-18); Bilirubin, Total 0.5 mg/dL (0.2-1.0); CO2 25.7 mmol/L (21.0-32.0); CREATININE 1.3 mg/dL (0.70-1.30); Calcium 8.8 mg/dL (8.5-10.1); Chloride 107 mmol/L (98-107); ETHANOL BLOOD < 3.0 mg/dL (<10); Estimated GFR 58.73 (mL/min/1.73m2); Glucose 187 mg/dL (74-106); NT-proBNP 4907 pg/mL (<300); Potassium 4.9 mmol/L (3.5-5.1); Sodium 143 mmol/L (136-145); Total Protein 7.7 g/dL (6.4-8.2); Troponin I < 50 ng/L (<or=60)
--- NOTE | 2022-08-08 02:21 | DI.VRAD_ITS ---
PROCEDURE INFORMATION: Exam: XR Chest Exam date and time: 08/08/2022 1:23 AM Age: 71 years old Clinical indication: Other: Overdose, SOB, R/O pneumonia TECHNIQUE: Imaging protocol: Radiologic exam of the chest. Views: 1 view. COMPARISON: CT CHEST WO 07/20/2022 10:43 AM FINDINGS: Lungs: Lungs are hyperexpanded, compatible chronic obstructive pulmonary physiologic changes. Decreased vascularity within the upper lobes bilaterally, compatible with centrilobular emphysema. Ground-glass opacities within the left lower lobe, possibly small left pleural effusion and associated atelectasis/pneumonitis. Pleural spaces: Minimal calcification of the left inferior pleura. Heart/Mediastinum: Mild cardiomegaly, particularly the right atrium. Vasculature: Atherosclerotic vascular disease. Bones/joints: Changes of prior sternotomy. IMPRESSION: Ground-glass opacities within the left lower lobe, possibly small left pleural effusion and associated atelectasis/pneumonitis. Dictated and Authenticated by: Sin Armas MD. Ordering:COURTNEY Pizarro MD
[2022-08-08 02:35] LABS: *AMPHETAMINES SCREEN URINE Negative (Negative); *BARBITURATES SCREEN URINE Negative (Negative); *BENZODIAZEPINES SCREEN URINE Negative (Negative); Cannabinoids THC Negative (Negative); Cocaine Screen,Urine Negative (Negative); METHADONE URINE SCREEN Negative (Negative); OPIATES URINE SCREEN Negative (Negative)
[2022-08-08 02:42] LABS: Tricyclic Antidepressants Negative (Negative)
[2022-08-08] MEDS: Furosemide 20 MG/2 ML VIAL IVP (03:00)
[2022-08-08] MEDS: AMPICILLIN/SULBACTAM 3 GM in Normal Saline 100 ML IVPB (03:05)
[2022-08-08 05:36] LABS: Troponin I 64 ng/L (<or=60)
== END 2022-08-08 07:00 | disposition home or self-care (01) ==
PROVIDERS: Emergency Provider Student in an Organized Health Care Education/Training Program; PCP Family Medicine
DX: J69.0 Pneumonitis due to inhalation of food and vomit (principal); I11.0 Hypertensive heart disease with heart failure; I50.43 Acute on chronic combined systolic (congestive) and diastolic (congestive) heart failure; F17.210 Nicotine dependence, cigarettes, uncomplicated; T50.901A Poisoning by unspecified drugs, medicaments and biological substances, accidental (unintentional), initial encounter; R06.81 Apnea, not elsewhere classified
CPT/HCPCS: 36415; 80053; 80307; 93005; 96365; 96375; 99284; 71045; 80320; 80329; 83880; 84484; 85025; 93010; J0295; J1941

== ENCOUNTER 2022-08-28 03:57 | Inpatient (IN) | payer MEDICARE, MEDICAID, SELFPAY ==
[2022-08-28] VITALS (62 sets, daily range): BP systolic 58–126; BP diastolic 41–81; PULSE 60–113; RESP 3–32; TEMP 35.9–37; O2SAT 87–100; BMI 16.5
--- NOTE | 2022-08-28 04:00 | DI.RAD_ITS ---
Exam(s) XR TIB/FIB LT EXAM: XR TIB/FIB LT CLINICAL HISTORY: pain s/p fall. TECHNIQUE: 2D digital imaging was performed. Two views. COMPARISON: CR,XR XR FEMUR LT from 08/28/2022 FINDINGS: BONES: No acute fracture is present. No bony destructive lesion is seen. Visualized portion of knee a nd ankle joints are unremarkable. Heel spurs. SOFT TISSUE: Swelling around distal tibia and fibula. No foreign body. IMPRESSION: Soft tissue swelling. DATA REPOSITORY: RADIATION DOSE DELIVERED:
--- NOTE | 2022-08-28 04:00 | RT.EKG_ITS ---
APPROVED REPORT Exam: Resting ECG Reason for Exam: elevated heart rate Patient Location: E HR:97 bpm ECG Measurements Heart Rate 97 AXIS NV [id number] P [id number] QRSd 85 QRS 87 QT 358 T 59 QTc 455 Conclusion Atrial fibrillation...V-rate 75-108, irreg A-activity Anteroseptal infarct, age indeterminate...Q >35mS, T neg, [id number] artifact limiting interpreation , no stemi
--- NOTE | 2022-08-28 04:00 | DI.RAD_ITS ---
Exam(s) XR CHEST 1V IN DI DEPT EXAM: XR CHEST 1V IN DI DEPT CLINICAL HISTORY: fall TECHNIQUE: 2D digital imaging was performed. COMPARISON: CR,XR XR PORTABLE CHEST AP from 01/26/2022 CR XR PORTABLE CHEST AP from 05/19/[address] CHEST WO from 07/20/2022 CR,XR XR PORTABLE CHEST AP from 08/08/[address] PELVIC WO from 08/28/[address] LUMBAR SPINE WO from 08/28/2022 FINDINGS: Exam is limited by multiple overlying skin folds. LUNGS: Severe emphysematous and fibrotic changes. Improvement in bilateral infiltrates. Some increa sed densities remain present at the left lung base. No pleural abnormality seen. HEART: Enlarged. Sternal wires. AORTA: Normal diameter. BONES: Unremarkable for age. Soft tissues: Prior surgery in the left upper quadrant with may reflect a gastric pull-through. IMPRESSION: No acute findings. Emphysematous changes. Persistent left basilar densities there reflect residual infiltrate versus combination of overlying opacities and chronic interstitial changes. DATA REPOSITORY: RADIATION DOSE DELIVERED:
--- NOTE | 2022-08-28 04:00 | DI.CT_ITS ---
Exam(s) CT HEAD CERVICAL SPINE WO EXAM: CT HEAD CERVICAL SPINE WO CLINICAL HISTORY: fall, pain. TECHNIQUE: Imaging Protocol: Axial computed tomography images with coronal and sagittal reformatted images were created and reviewed COMPARISON: CR XR CHEST 1V IN DI DEPT from 07/09/2020 CR XR CERVICAL SP MANDUJANO TRAUMA 2-3V from 09/24/[address] HEAD WO from 04/10/2021 FINDINGS: Head CT Ventricles and Extra axial spaces: Normal in size and morphology for the patient's age. Hemorrhage: None. Cerebral parenchyma: Mild white matter changes of small vessel disease. Midline shift: None. Brainstem/Cerebellum: Normal. Calvarium: Normal. Visualized Paranasal sinuses/Mastoids: Clear. Cervical Spine CT BONES: Vertebral body heights are maintained. There is scoliosis as well as straightening of the norm al cervical lordosis. There is mild retrolisthesis C4 relative to C3. This finding is unchanged fro m prior plain film. Findings are consistent with degenerative subluxation. There is no evidence of acute fracture. Degenerative disc changes and facet degenerative changes are seen . SOFT TISSUES: No paraspinal hematoma. The airway appears intact. No pneumothorax is seen at the lung apices. Severe emphysematous changes noted. IMPRESSION: Head CT: No acute abnormality. C-spine CT: Degenerative changes, scoliosis and stable C3-4 subluxation. No acute abnormality. RADIATION DOSE DELIVERED: 1,207.02mGy.cm Total DLP DATA REPOSITORY: All CT scans at this facility are submitted to the National Radiology Data Registry (NRDR) Dose Index Registry (DIR) with the [employer] (ACR). RADIATION OPTIMIZATION: All CT scans at this facility use at least one of these dose optimization te chniques: automated exposure control; mA and/or kV adjustment per patient size (includes targeted exa ms where dose is matched to clinical indication); or iterative reconstruction.
--- NOTE | 2022-08-28 04:00 | DI.RAD_ITS ---
Exam(s) XR PELVIS AP XR FEMUR LT EXAM: XR PELVIS AP CLINICAL HISTORY: pain s/p fall. TECHNIQUE: 2D digital imaging was performed. COMPARISON: CR,XR XR CHEST 1V IN DI DEPT from 08/28/2022 CR,XR XR FEMUR LT from 08/28/2022 FINDINGS: BONES: Intertrochanteric fracture of the left femur with mild displacement and mild angulation. No a dditional fractures are identified. No bony destructive lesion is seen. JOINTS: No dislocation present. No joint space narrowing is present. Mild periarticular spurring. SOFT TISSUE: Normal. IMPRESSION: Intertrochanteric fracture of the left femur. DATA REPOSITORY: RADIATION DOSE DELIVERED:
--- NOTE | 2022-08-28 04:14 | ED.GENADUL_ITS ---
Discharge Plan Disposition Patient Disposition: Admit to [facility] Condition: Serious Discharge Details Clinical Impression: Fall, Blunt head trauma, Contusion of elbow, left, Contusion of left leg, Closed fracture of left hip Primary Care Provider: Silvina Perdue ED Provider: Shaun Watts [place] Meds and New Rx's Prescriptions: No Action furosemide [Lasix] 20 mg tablet 20 mg PO QAM Patient Comments: pt states he has not picked up this med Combivent Respimat 20-100 mcg/actuation mist 1 puff inhalation Q6H PRN gabapentin 300 mg capsule 300 mg PO TID Patient Comments: Take 1 capsule by mouth three times a day metoprolol tartrate 25 mg tablet 25 mg PO DAILY Patient Comments: Take 0.5 tablet by mouth twice a day mirtazapine 7.5 mg tablet 7.5 mg PO DAILY Patient Comments: Take 1 tablet by mouth at bedtime Stiolto Respimat 2.5-2.5 mcg/actuation Mist 2 puff inhalation DAILY Qty: 4 0RF amoxicillin-pot clavulanate 875-125 mg tablet 1 tab PO BID Qty: 20 0RF One Daily Multi-Vit w-Mineral 4.5 mg iron tablet cholecalciferol (vitamin D3) 50 mcg (2,000 unit) tablet 50 mcg PO DAILY spironolactone 25 mg tablet 50 mg PO DAILY tamsulosin 0.4 mg capsule 0.4 mg PO HS Stiolto Respimat 2.5-2.5 mcg/actuation mist 2 puff INHALATION DAILY pantoprazole 40 mg tablet,delayed release (DR/EC) 40 mg PO BID atorvastatin 10 mg tablet 10 mg PO HS hydrocodone-acetaminophen 10-325 mg tablet 1 tab PO Q8H Ensure Liquid 237 ml PO 3XD Patient Comments: Take 237 ml by mouth three times a day Medical Decision Making 72 year old male with PMHx of non-oxygen dependent COPD, pulmonary fibrosis, CAD, CHF who comes in with ems after a fall at his home. HE states he was standing at his bureau when his legs gave out and he fell landing on his left side. Denies loc and states his roommate helped him into bed then called ems. HE arrvies caox4 speaking clearly. He is complaining of left hip and left elbow pain. He has limited rom of the left hip due to pain, intact distal sensation and pulses. HE has no abdominal or chest tenderness. No signs of trauma to the head. He has no stepoffs of the c/t/l spine. He has skin tears over his left lateral elbow, no suturable lacerations. Does have full rom of the elbow with intact distal sensation and no tenderness elsewhere in the arm. Given the fall of unclear mechanism, will obtain ecg, cbc, cmp, troponin. He could have a left hip fracture, will obtain xrays and also cxr. Given his age and the fall will also obtain ct head/cspine. imaging confirms left intertrochanteric hip fracture. No beds available for transfer at this time so will discuss with hospitalist about admission here and board in the ED until bed at [facility] available. Did review case with Dr. deal and recreational vehicle repairer who feel patient could be fixed here. Pt updated and is currently stable, no pain unless he moves. Differential Diagnosis Differential Diagnosis: electrolyte abnormality, anemia, hip fracture Medical Records Medical records reviewed: Yes I reviewed the patient's medical records. Imaging Data Radiologic Study: Attestation: I personally reviewed and interpreted this imaging study as follows: Imaging: CT Scan Radiologist's impression: no acute findings ct head/c spine Radiologic Study #2: Attestation: I personally reviewed and interpreted this imaging study as follows: Imaging: X-Ray My impression: no acute findings elbow xray Radiologic Study #3: Attestation: I personally reviewed and interpreted this imaging study as follows: Imaging: X-Ray My impression: no acute findings tib/fib xray Radiologic Study #4: Attestation: I personally reviewed and interpreted this imaging study as follows: Imaging: CT Scan Radiologist's impression: ct lumbar spine IMPRESSION: Degenerative changes. No acute findings are evident. Radiologic Study #5: Attestation: I personally reviewed and interpreted this imaging study as follows: Imaging: CT Scan Radiologist's impression: PROCEDURE INFORMATION: Exam: CT Pelvis Without Contrast; Skeletal Exam date and time: 08/28/2022 6:08 AM Age: 72 years old Clinical indication: Injury or trauma; Fall; Blunt trauma (contusions or hematomas); Left; Hip; Additional info: Fall, ? FX TECHNIQUE: Imaging protocol: Computed tomography of the pelvis without contrast. Exam focused on the skeleton. Radiation optimization: All CT scans at this facility use at least one of these dose optimization techniques: automated exposure control; mA and/or kV adjustment per patient size (includes targeted exams where dose is matched to clinical indication); or iterative r econstruction. COMPARISON: CT CHEST/ABD/PEL WO 10/09/2021 6:28 AM FINDINGS: Bones/joints: There is an acute intertrochanteric fracture of the left femur. Soft tissues: Unremarkable. IMPRESSION: There is an acute intertrochanteric fracture of the left femur. Radiologic Study #6: Attestation: I personally reviewed and interpreted this imaging study as follows: Imaging: X-Ray Radiologist's impression: PROCEDURE INFORMATION: Exam: XR Chest Exam date and time: 08/28/2022 4:54 AM Age: 72 years old Clinical indication: Injury or trauma; Fall; Blunt trauma (contusions or hematomas) TECHNIQUE: Imaging protocol: Radiologic exam of the chest. Views: 1 view. COMPARISON: CR XR PORTABLE CHEST AP 08/08/2022 1:23 AM FINDINGS: Lungs: Patchy opacification at the left lung base, which may reflect pulmonary contusion. Pleural spaces: Unremarkable. No pleural effusion. No pneumothorax. Heart/Mediastinum: Unremarkable. No cardiomegaly. Bones/joints: Unremarkable. IMPRESSION: Patchy opacification at the left lung base, which may reflect pulmonary contusion. Lab Data Lab results reviewed: Yes I reviewed the patient's lab results. ECG Data Attestation: I personally reviewed and interpreted this ECG (s) as follows: Prior ECG tracings: available for review Interpretation: significant artifact limits interpration but appears afib, rate of 97, no stemi HPI General Mode of arrival: EMS . Date/Time Provider Initiated Documentation: 08/28/22 03:57 . Limitations to Documentation: no limitations . Information obtained by: patient . History of Present Illness 72 year old M presents to the emergency department with the chief complaint of left hip pain, described as moderate, Patient reports no radiation. Patient started experiencing this hour(s) (1) and it has been constant. No relieving factors improve symptom(s), No exacerbating factors reported . Patient notes weakness. Patient did receive the following treatments prior to arrival, none Related Data Home Medications Medication Instructions Recorded Confirmed ipratropium 20 mcg-albuterol 100 1 puff inhalation Q6H PRN 06/10/22 08/28/22 mcg/actuation mist for inhalation (Combivent Respimat) furosemide 20 mg tablet (Lasix) 20 mg PO QAM 06/24/22 08/28/22 gabapentin 300 mg capsule 300 mg PO TID 07/19/22 08/28/22 metoprolol tartrate 25 mg tablet 25 mg PO DAILY 07/19/22 08/28/22 mirtazapine 7.5 mg tablet 7.5 mg PO DAILY 07/19/22 08/28/22 tiotropium 2.5 mcg-olodaterol 2.5 2 puff inhalation DAILY #4 grams 07/23/22 mcg/actuation mist for inhalation (Stiolto Respimat) amoxicillin 875 mg-potassium 1 tab PO BID #20 tabs 08/08/22 clavulanate 125 mg tablet atorvastatin 10 mg tablet 10 mg PO HS 08/28/22 08/28/22 cholecalciferol (vitamin D3) 50 50 mcg PO DAILY 08/28/22 08/28/22 mcg (2,000 unit) tablet food supplemt, lactose-reduced 237 ml PO 3XD 08/28/22 08/28/22 (Ensure oral liquid) hydrocodone 10 mg-acetaminophen 1 tab PO Q8H 08/28/22 08/28/22 325 mg tablet multivitamin with minerals-ferrous tab 08/28/22 08/28/22 sulfate 4.5 mg iron tablet (One Daily Multivitamins with Minerals) pantoprazole 40 mg tablet,delayed 40 mg PO BID 08/28/22 08/28/22 release spironolactone 25 mg tablet 50 mg PO DAILY 08/28/22 08/28/22 tamsulosin 0.4 mg capsule 0.4 mg PO 08/28/22 08/28/22 tiotropium 2.5 mcg-olodaterol 2.5 2 puff inhalation DAILY 08/28/22 08/28/22 mcg/actuation mist for inhalation (Stiolto Respimat) Previous Rx's Medication Instructions Recorded tiotropium 2.5 mcg-olodaterol 2.5 2 puff inhalation DAILY #4 grams 07/23/22 mcg/actuation mist for inhalation (Stiolto Respimat) amoxicillin 875 mg-potassium 1 tab PO BID #20 tabs 08/08/22 clavulanate 125 mg tablet Allergies Allergy/AdvReac Type Severity Reaction Status Date / Time No Known Allergies Allergy Verified 08/28/22 04:05 General Stated Complaint: GenMedical ANAMIKA: 3 Review of Systems All systems reviewed & are unremarkable except as noted in HPI and below Constitutional Constitutional: Denies chills and Denies fever(s) Cardiovascular Cardiovascular: Denies chest pain and Denies dyspnea Respiratory Respiratory: Denies dyspnea Gastrointestinal Gastrointestinal: Denies abdominal pain, Denies nausea and Denies vomiting Musculoskeletal Musculoskeletal: Denies joint swelling Integumentary/Breasts Skin/Breast: Denies rash PFSH All Active Problems (Updated 08/28/22 @ 07:13 by Shaun Watts MD) Overdose (Acute) Aspiration pneumonitis (Acute) Fall (Acute) Blunt head trauma (Acute) Contusion of elbow, left (Acute) Contusion of left leg (Acute) Closed fracture of left hip (Acute) Mild cognitive impairment (Acute) Advanced care planning/counseling discussion (Acute) Literacy level of illiterate (Acute) Palliative care encounter (Acute) Discharge planning issues (Acute) DVT prophylaxis (Acute) Acute exacerbation of chronic obstructive pulmonary disease (COPD) (Acute) Acute on chronic right-sided congestive heart failure (Acute) Pneumonia (Acute) Hypoxia (Acute) Depression (Chronic) Dental abscess (Acute) 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) Abnormal chest CT (Acute) Full code status (Acute) Urinary tract infection (Acute) 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) CAP (community acquired pneumonia) (Acute) Generalized weakness (Acute) Skin tear of left elbow without complication (Acute) Chronic obstructive lung disease (Chronic) Tricuspid regurgitation (Chronic) CAD (coronary artery disease) (Chronic) Hypertension (Chronic) Medical History Abdominal pain Abnormal radiologic findings on diagnostic imaging of renal pelvis, ureter, or bladder Acute on chronic anemia Acute on chronic diastolic (congestive) heart failure Acute on chronic systolic CHF (congestive heart failure) [place] [facility] [place]...EGD 04/2021 with friable mucosa. SDOne at that time because of GI blooed Afib Alcohol abuse Alcohol abuse, continuous drinking behavior Anemia Bilateral lower extremity edema CAD (coronary artery disease) of artery bypass graft Cerumen impaction CHF, acute on chronic Confusion state COVID-19 COVID-19 Diabetes mellitus Difficulty reading Edema Encounter for colorectal cancer screening Epididymitis, right (08/02/16) Essential hypertension Failure to thrive Fall GERD (gastroesophageal reflux disease) GI bleed GI bleeding H/O malignant neoplasm of stomach Heart failure, left, with LVEF 41-49% History of GI bleed Hoarseness Hydrocele, right (01/23/16) Hyperlipidemia Hypophosphatemia Kyphoscoliosis Low back pain Malnutrition Mild bibasilar atelectasis Pancreatitis Poor hygiene Prediabetes Protein malnutrition Pulmonary hypertension Recent weight loss Rib fractures Shortness of breath Solitary pulmonary nodule Tinnitus, left Tobacco abuse Weight loss Surgical History cardiac cath Coronary Artery Bypass Gaft (CABG) EGD - IV Sedation Esophagectomy H/O colonoscopy (2007) H/O colonoscopy (04/14/18) dr geller, sigmoid diverticulosis, repeat 10 years History of esophagogastroduodenoscopy (EGD) (09/2017) History of hydrocelectomy History of right inguinal hernia repair repair times two sugrical flap of unhealing wound Family History Mother No problems noted. Father No problems noted. Social History Smoking/Tobacco Use Status: Current every day Tobacco Type: cigarettes Smoking packs per day: 1 Smoking cigarettes per day: 20.0 Years smoked: 50 Smoking pack- years: 50.00 Smoking risk assessment performed?: Yes Alcohol Intake: former Drug use: Never Substance use type: does not use What type of physical activity do you participate in: none Do you feel safe at home: Yes Do you feel safe in your relationship?: Yes Exam Const General: no acute distress Orientation: alert [facility] Head: normal to inspection Ears: external ears normal General nose exam: external nose normal Mouth: moist mucous membranes Eyes General: appearance normal, both eyes and all related structures Neck Neck: normal visual inspection Resp Effort & Inspection: cough, not tachypneic and no tracheal deviation Cardio Rate: regular rate Heart Sounds: no murmurs GI Palpation: nontender Skin General skin exam: no rashes or lesions noted Neuro General: patient alert and patient oriented x3 Extrem General: capillary refill normal Psych Mental Status: mental status grossly normal Course Vital Signs Vital signs: Vital Signs Temperature 36.7 C 08/28/22 03:55 Pulse 72 08/28/22 03:55 Respiratory Rate 16 08/28/22 03:55 Blood Pressure 94/62 L 08/28/22 03:55 Pulse Oximetry 91 L 08/28/22 03:55 Temperature 36.7 C 08/28/22 03:55 Pulse 72 08/28/22 03:55 Respiratory Rate 16 08/28/22 03:55 Respiratory Effort Normal 08/28/22 03:55 Blood Pressure 94/62 L 08/28/22 03:55 Blood Pressure Position Supine 08/28/22 03:55 Pulse Oximetry 91 L 08/28/22 03:55 Oxygen Delivery Method Room Air 08/28/22 03:55 Oxygen Flow Rate 0 08/28/22 03:55 Pain Level 9 08/28/22 03:55
--- NOTE | 2022-08-28 04:15 | DI.RAD_ITS ---
Exam(s) XR ELBOW LT COMPLETE EXAM: XR ELBOW LT COMPLETE CLINICAL HISTORY: pain s/p fall. TECHNIQUE: 2D digital imaging was performed. Three views. COMPARISON: CR,XR XR TIB/FIB LT from 08/28/2022 FINDINGS: BONES: No acute fracture is present. No bony destructive lesion is seen. JOINTS: The elbow is normally aligned. No joint effusion is seen. SOFT TISSUE: IV catheter. IMPRESSION: Unremarkable radiographs of the left elbow. DATA REPOSITORY: RADIATION DOSE DELIVERED:
--- NOTE | 2022-08-28 04:15 | NUR.NOTE ---
Accessed [facility] system for patient med list.Nursing Note:
[2022-08-28 04:23] LABS: Source Nasal/Nares
[2022-08-28 04:26] LABS: Abs Immature Grans 0.07 10^3/uL (0.0-0.06); Absolute Basophil Count 0.04 10^3/uL (0.0-0.2); Absolute Eosinophil Count 0.14 10^3/uL (0.0-0.7); Absolute Lymphocyte Count 1.38 10^3/uL (1.2-3.4); Absolute Monocyte Count 1.01 10^3/uL (0.1-0.8); Absolute Neutrophil Count 9.68 10^3/uL (1.2-6.7); Basophils % 0.3; Eosinophils % 1.1; HCT 43.7 % (40.0-50.0); HGB 13.7 g/dL (13.5-17.5); Immature Grans % 0.6; Lymphocytes % 11.2; MCH 30.2 pg (27.0-33.0); MCHC 31.4 % (32.0-36.0); MCV 96 fL (80-95); MPV 9.4 fL (8.0-11.0); Monocytes % 8.2; Neutrophils % 78.6; Platelet Count 304 10^3/uL (130-400); RBC 4.54 10^6/uL (4.36-5.78); RDW 14.6 % (11.8-14.1); RDW-SD 50.9 fL; WBC 12.32 10^3/uL (4.4-10.8)
[2022-08-28 04:39] LABS: INR 1.1 (0.9-1.1); PTT Activated 26.5 sec (21.5-31.9)
[2022-08-28 04:41] LABS: ALT 15 U/L (16-63); AST 30 U/L (15-37); Albumin 3.1 g/dL (3.4-5.0); Alkaline Phosphatase 151 U/L (46-116); BUN 44 mg/dL (7-18); Bilirubin, Total 0.4 mg/dL (0.2-1.0); CREATININE 1.7 mg/dL (0.70-1.30); Chloride 101 mmol/L (98-107); Glucose 150 mg/dL (74-106); Potassium 4.8 mmol/L (3.5-5.1); Sodium 137 mmol/L (136-145); Total Protein 8.3 g/dL (6.4-8.2); Troponin I < 50 ng/L (<or=60)
[2022-08-28] MEDS: Normal Saline 500 ML IV ×2 (04:45→19:05)
[2022-08-28 04:55] LABS: COVID-19 PCR Negative (Negative)
--- NOTE | 2022-08-28 05:43 | DI.VRAD_ITS ---
PROCEDURE INFORMATION: Exam: CT Head Without Contrast Exam date and time: 08/28/2022 4:43 AM Age: 72 years old Clinical indication: Injury or trauma; Fall; Concussion/head injury; Consciousness not specified TECHNIQUE: Imaging protocol: Computed tomography of the head without contrast. Radiation optimization: All CT scans at this facility use at least one of these dose optimization techniques: automated exposure control; mA and/or kV adjustment per patient size (includes targeted exams where dose is matched to clinical indication); or iterative reconstruction. COMPARISON: CT HEAD WO 10/09/2021 6:25 AM FINDINGS: Brain: There is mild diffuse cerebral atrophy present, consistent with this patient's age. No hemorrhage. There is mild diffuse heterogeneity of the white matter attenuation, this change is nonspecific but is likely secondary to chronic ischemia within microvascular distributions. No mass effect. Cerebral ventricles: Normal in configuration. Compensatory dilatation. Paranasal sinuses: Visualized sinuses are unremarkable. No fluid levels. Mastoid air cells: Visualized mastoid air cells are well aerated. Bones/joints: Unremarkable. No acute fracture. Soft tissues: Unremarkable. IMPRESSION: No acute intracranial abnormality. PROCEDURE INFORMATION: Exam: CT Cervical Spine Without Contrast Exam date and time: 08/28/2022 4:43 AM Age: 72 years old Clinical indication: Injury or trauma; Fall; Concussion/head injury; Consciousness not specified TECHNIQUE: Imaging protocol: Computed tomography of the cervical spine without contrast. Radiation optimization: All CT scans at this facility use at least one of these dose optimization techniques: automated exposure control; mA and/or kV adjustment per patient size (includes targeted exams where dose is matched to clinical indication); or iterative reconstruction. COMPARISON: CT CHEST WO 07/20/2022 10:43 AM FINDINGS: Bones/joints: No acute fracture. 2.5 mm anterior subluxation of C3 on C4. Multilevel degenerative changes. Straightening of lordosis. No significant disc bulge or herniation. No severe spinal canal stenosis. Hypertrophic degenerative changes result in foraminal stenosis at several levels. Lungs: Advanced bullous emphysema Soft tissues: Unremarkable. IMPRESSION: 1. No acute fracture. 2. Mild anterior subluxation of C3 on C4. 3. Multilevel degenerative changes. 4. Straightening of lordosis. Dictated and Authenticated by: Murtaza Hernandez MD. Ordering:DEANDRE Dunn MD
--- NOTE | 2022-08-28 05:45 | DI.CT_ITS ---
Exam(s) CT PELVIC WO EXAM: CT PELVIC WO CLINICAL HISTORY: ?fracture. TECHNIQUE: Imaging Protocol: Axial computed tomography images with coronal and sagittal reformatted images were created and reviewed. CONTRAST MATERIAL: Oral: no COMPARISON: CT CT CHEST/ABD/PEL WO from 10/09/2021 CR,XR XR PELVIS AP from 08/28/2022 FINDINGS: Bladder: Symmetric distention, no gross wall thickening. Bowel: No obstruction. Diverticulosis. Large quantity of stool. Peritoneal cavity: No ascites, collection or mesenteric inflammatory response. Bones: Intertrochanteric fracture of the left femur with some impaction. Lesser trochanter fracture d as a separate fragment. Comminution at the greater trochanter. No additional fractures elsewhere in the pelvis. Joints: SI joints and pubic symphysis intact. Mild degenerative changes at hip joints. Soft tissues: Aorta and iliac arteries heavily calcified. Surgical clips noted right lower quadran t. IMPRESSION: Intertrochanteric fracture of the left femur. RADIATION DOSE DELIVERED: 220.27mGy.cmTotal DLP DATA REPOSITORY: All CT scans at this facility are submitted to the National Radiology Data Registry (NRDR) Dose Index Registry (DIR) with the [employer] ([employer]). RADIATION OPTIMIZATION: All CT scans at this facility use at least one of these dose optimization te chniques: automated exposure control; mA and/or kV adjustment per patient size (includes targeted exa ms where dose is matched to clinical indication); or iterative reconstruction.
--- NOTE | 2022-08-28 05:45 | DI.CT_ITS ---
Exam(s) CT LUMBAR SPINE WO EXAM: CT LUMBAR SPINE WO CLINICAL HISTORY: fall pain. TECHNIQUE: Imaging Protocol: Axial computed tomography images with coronal and sagittal reformatted images were created and reviewed COMPARISON: CT CT thoracic spine wo from 01/29/[address] CHEST/ABD/PEL WO from 10/09/[address] PELVIC WO from 08/28/2022 FINDINGS: Bones: The last intervertebral disc space is designated the L5/S1 level for the numbering purpose of this examination. The vertebral body heights are well maintained. Alignment is satisfactory. No fracture is seen. Severe degenerative disc changes L4-5. The visualized SI joints and sacrum are will maintained. Soft Tissues: The paraspinal soft tissues are unremarkable. Aorta heavily calcified. No aneurysm. IMPRESSION: Degenerative changes greatest at L4-5. No evidence of fracture. RADIATION DOSE DELIVERED: 373.14mGy.cm Total DLP DATA REPOSITORY: All CT scans at this facility are submitted to the National Radiology Data Registry (NRDR) Dose Index Registry (DIR) with the [employer] ([employer]). RADIATION OPTIMIZATION: All CT scans at this facility use at least one of these dose optimization te chniques: automated exposure control; mA and/or kV adjustment per patient size (includes targeted exa ms where dose is matched to clinical indication); or iterative reconstruction.
[2022-08-28] MEDS: fentaNYL 100 MCG/2 ML VIAL 40 MCG IVP (05:52)
--- NOTE | 2022-08-28 06:42 | DI.VRAD_ITS ---
PROCEDURE INFORMATION: Exam: CT Lumbar Spine Without Contrast Exam date and time: 08/28/2022 6:06 AM Age: 72 years old Clinical indication: Injury or trauma; Fall; Blunt trauma (contusions or hematomas) TECHNIQUE: Imaging protocol: Computed tomography of the lumbar spine without contrast. Radiation optimization: All CT scans at this facility use at least one of these dose optimization techniques: automated exposure control; mA and/or kV adjustment per patient size (includes targeted exams where dose is matched to clinical indication); or iterative reconstruction. COMPARISON: MRI - LUMBAR SPINE WO CONTRAST 09/01/2017 1:34 PM FINDINGS: Bones/joints: No acute fracture. Normal alignment. Intervertebral disc space narrowing L4-L5. No significant disc bulge or herniation. No severe spinal canal stenosis. No significant neural foraminal narrowing. Vasculature: Abdominal aortic atherosclerotic plaque. Soft tissues: Unremarkable. IMPRESSION: Degenerative changes. No acute findings are evident. Dictated and Authenticated by: Gabe Rincon MD. Ordering:DEANDRE Dunn MD
--- NOTE | 2022-08-28 06:45 | DI.VRAD_ITS ---
PROCEDURE INFORMATION: Exam: CT Pelvis Without Contrast; Skeletal Exam date and time: 08/28/2022 6:08 AM Age: 72 years old Clinical indication: Injury or trauma; Fall; Blunt trauma (contusions or hematomas); Left; Hip; Additional info: Fall, ? FX TECHNIQUE: Imaging protocol: Computed tomography of the pelvis without contrast. Exam focused on the skeleton. Radiation optimization: All CT scans at this facility use at least one of these dose optimization techniques: automated exposure control; mA and/or kV adjustment per patient size (includes targeted exams where dose is matched to clinical indication); or iterative reconstruction. COMPARISON: CT CHEST/ABD/PEL WO 10/09/2021 6:28 AM FINDINGS: Bones/joints: There is an acute intertrochanteric fracture of the left femur. Soft tissues: Unremarkable. IMPRESSION: There is an acute intertrochanteric fracture of the left femur. Dictated and Authenticated by: Gabe Rincon MD. Ordering:DEANDRE Dunn MD
--- NOTE | 2022-08-28 06:47 | DI.VRAD_ITS ---
PROCEDURE INFORMATION: Exam: XR Chest Exam date and time: 08/28/2022 4:54 AM Age: 72 years old Clinical indication: Injury or trauma; Fall; Blunt trauma (contusions or hematomas) TECHNIQUE: Imaging protocol: Radiologic exam of the chest. Views: 1 view. COMPARISON: CR XR PORTABLE CHEST AP 08/08/2022 1:23 AM FINDINGS: Lungs: Patchy opacification at the left lung base, which may reflect pulmonary contusion. Pleural spaces: Unremarkable. No pleural effusion. No pneumothorax. Heart/Mediastinum: Unremarkable. No cardiomegaly. Bones/joints: Unremarkable. IMPRESSION: Patchy opacification at the left lung base, which may reflect pulmonary contusion. Dictated and Authenticated by: Gabe Rincon MD. Ordering:DEANDRE Dunn MD
--- NOTE | 2022-08-28 06:49 | DI.VRAD_ITS ---
PROCEDURE INFORMATION: Exam: XR Pelvis Exam date and time: 08/28/2022 4:57 AM Age: 72 years old Clinical indication: Injury or trauma; Fall; Blunt trauma (contusions or hematomas); Left; Hip and pelvic region TECHNIQUE: Imaging protocol: Radiologic exam of the pelvis. Views: 1 or 2 view. COMPARISON: CT CHEST/ABD/PEL WO 10/09/2021 6:28 AM FINDINGS: Bones/joints: Intertrochanteric fracture of the proximal left femur. Soft tissues: Unremarkable. IMPRESSION: Intertrochanteric fracture of the proximal left femur. Dictated and Authenticated by: Gabe Rincon MD. Ordering:DEANDRE Dunn MD
--- NOTE | 2022-08-28 06:50 | DI.VRAD_ITS ---
PROCEDURE INFORMATION: Exam: XR Left Femur Exam date and time: 08/28/2022 4:58 AM Age: 72 years old Clinical indication: Injury or trauma; Fall; Blunt trauma; Hip; Left TECHNIQUE: Imaging protocol: Radiologic exam of the left femur. Views: 2 views. COMPARISON: CR XR PELVIS AP 08/28/2022 4:57 AM FINDINGS: Bones/joints: Intratrochanteric left femoral fracture. No evidence of dislocation. Soft tissues: Unremarkable. IMPRESSION: Intratrochanteric left femoral fracture. Dictated and Authenticated by: Gabe Rincon MD. Ordering:DEANDRE Dunn MD
--- NOTE | 2022-08-28 06:53 | DI.VRAD_ITS ---
PROCEDURE INFORMATION: Exam: XR Left Tibia and Fibula Exam date and time: 08/28/2022 5:08 AM Age: 72 years old Clinical indication: Injury or trauma; Fall; Blunt trauma; Lower leg; Left TECHNIQUE: Imaging protocol: Radiologic exam of the left tibia and fibula. Views: 2 views. COMPARISON: US EXTREMITY VENOUS BI 01/15/2020 3:54 PM FINDINGS: Bones/joints: Normal. Soft tissues: Normal. IMPRESSION: No acute findings. Dictated and Authenticated by: Gabe Rincon MD. Ordering:DEANDRE Dunn MD
--- NOTE | 2022-08-28 06:54 | DI.VRAD_ITS ---
PROCEDURE INFORMATION: Exam: XR Left Elbow Exam date and time: 08/28/2022 5:13 AM Age: 72 years old Clinical indication: Injury or trauma; Fall; Blunt trauma (contusions or hematomas); Elbow; Left TECHNIQUE: Imaging protocol: Radiologic exam of the left elbow. Views: 3 or more views. COMPARISON: US EXTREMITY VENOUS BI 01/15/2020 3:54 PM FINDINGS: Bones/joints: Normal. Soft tissues: Normal. IMPRESSION: No acute findings. Dictated and Authenticated by: Gabe Rincon MD. Ordering:DEANDRE Dunn MD
[2022-08-28 07:43] LABS: Lab Add On Test DONE
[2022-08-28] MEDS: Normal Saline 1,000 ML 75 ML IV ×2 (07:45→17:03)
[2022-08-28 07:53] LABS: Iron 53 ug/dL (65-175); Total Iron Binding Capacity 334 ug/dL (250-450); Transferrin Sat 16 % (20-55)
[2022-08-28 08:15] LABS: Troponin I < 50 ng/L (<or=60)
[2022-08-28] MEDS: Gabapentin 300 MG CAP PO ×2 (09:12→19:25)
[2022-08-28] MEDS: Pantoprazole 40 MG TABCR PO ×2 (09:12→19:26)
--- NOTE | 2022-08-28 10:10 | W.ANESPRE ---
General Info Date of Service Date Performed: 08/28/22 Height: 5 ft 6 in Weight: 46.6 kg Body Mass Index (BMI): 16.5 Meds Allergies and Home Medications Allergies Allergy/AdvReac Type Severity Reaction Status Date / Time No Known Allergies Allergy Verified 08/28/22 04:05 Home Medication Medication Instructions Recorded ipratropium 20 mcg-albuterol 100 1 puff inhalation Q6H PRN 06/10/22 mcg/actuation mist for inhalation (Combivent Respimat) furosemide 20 mg tablet (Lasix) 20 mg PO QAM 06/24/22 gabapentin 300 mg capsule 300 mg PO TID 07/19/22 metoprolol tartrate 25 mg tablet 25 mg PO DAILY 07/19/22 mirtazapine 7.5 mg tablet 7.5 mg PO DAILY 07/19/22 tiotropium 2.5 mcg-olodaterol 2.5 2 puff inhalation DAILY #4 grams 07/23/22 mcg/actuation mist for inhalation (Stiolto Respimat) amoxicillin 875 mg-potassium 1 tab PO BID #20 tabs 08/08/22 clavulanate 125 mg tablet atorvastatin 10 mg tablet 10 mg PO HS 08/28/22 cholecalciferol (vitamin D3) 50 50 mcg PO DAILY 08/28/22 mcg (2,000 unit) tablet food supplemt, lactose-reduced 237 ml PO 3XD 08/28/22 (Ensure oral liquid) hydrocodone 10 mg-acetaminophen 1 tab PO Q8H 08/28/22 325 mg tablet multivitamin with minerals-ferrous tab 08/28/22 sulfate 4.5 mg iron tablet (One Daily Multivitamins with Minerals) pantoprazole 40 mg tablet,delayed 40 mg PO BID 08/28/22 release spironolactone 25 mg tablet 50 mg PO DAILY 08/28/22 tamsulosin 0.4 mg capsule 0.4 mg PO HS 08/28/22 tiotropium 2.5 mcg-olodaterol 2.5 2 puff inhalation DAILY 08/28/22 mcg/actuation mist for inhalation (Stiolto Respimat) Current Visit Medications: Current Medications Generic Name Dose Route Start Last Admin Trade Name Freq PRN Reason Stop Dose Admin Acetaminophen 0 mg 08/28/22 07:31 Acetaminophen 325 Mg Tab PO Q4H PRN PRN Hydrocodone Bitart/Acetaminophen 1 tab 08/28/22 08:00 Hydrocodone 10/Acetaminophen 325 Tab PO Q8H [facility] Al Hydrox/Mg Hydrox/Simethicone 30 ml 08/28/22 07:31 Mylanta Suspension 30 Ml Cup PO Q2H PRN PRN Albuterol Sulfate 2.5 mg 08/28/22 07:26 Albuterol 2.5 Mg/3 Ml Inh Soln Vial UPD Q2H PRN PRN Atorvastatin Calcium 10 mg 08/28/22 22:00 Atorvastatin 10 Mg Tab PO HS [facility] Cholecalciferol 2,000 units 08/28/22 10:00 Cholecalciferol (Vitamin D3) 1,000 Unit Tab PO DAILY [facility] Device 1 each 08/28/22 08:00 Inhaler, Assist Device MC DIRECTED [facility] Dimethicone/Zinc Oxide 0 gm 08/28/22 07:26 Haley Protect Cream 142 Gm Tube TP PRN PRN Gabapentin 300 mg 08/28/22 08:30 08/28/22 09:12 Gabapentin 300 Mg Cap PO 300 mg TID [facility] Administration Sodium Chloride 500 mls @ 0 mls/hr 08/28/22 04:11 08/28/22 04:45 Saline 500ml Bag IV 500 mls/hr PRN PRN Administration As Directed Sodium Chloride 1,000 mls @ 75 mls/hr 08/28/22 07:45 08/28/22 07:45 Saline 1000ml Bag IV 75 mls/hr INFUSION [facility] Administration IV Miscellaneous Supplies 1 each 08/28/22 04:15 Iv Access IV DIRECTED [facility] Metoprolol Tartrate 25 mg 08/28/22 10:00 Metoprolol 25 Mg Tab PO DAILY [facility] Mirtazapine 7.5 mg 08/28/22 22:00 Mirtazapine 15 Mg Tab PO HS [facility] Non-Formulary Medication 237 ml 08/28/22 07:45 Food Supplemt, Lactose-Reduced [Ensure] PO 3XD [facility] Pantoprazole Sodium 40 mg 08/28/22 08:30 08/28/22 09:12 Pantoprazole 40 Mg Tabcr PO 40 mg BID [facility] Administration Polyethylene Glycol 17 gm 08/28/22 07:31 Polyethylene Glycol 3350 17 Gm Packet PO DAILY PRN PRN Constipation Sodium Chloride 0 ml 08/28/22 04:11 Normal Saline Flush 10 Ml Syr IVP PRN PRN Tamsulosin HCl 0.4 mg 08/28/22 22:00 Tamsulosin 0.4 Mg Capcr PO HS [facility] Tiotropium [place]/Olodaterol 2 puff 08/28/22 10:00 Tiotropium/Olodaterol 10 Puff Inhaler IH DAILY [facility] PFSH Active Problems Active Problems: Problem Status Onset Code Overdose T50.901A Aspiration pneumonitis J69.0 Fall W19.XXXA Blunt head trauma S09.8XXA Contusion of elbow, left S50.02XA Contusion of left leg S80.12XA Mild cognitive impairment G31.84 Advanced care planning/counseling discussion Z71.89 Literacy level of illiterate Z55.0 Palliative care encounter Z51.5 Hypomagnesemia E83.42 Hypokalemia E87.6 Acute respiratory failure with hypoxia J96.01 Discharge planning issues Z02.9 DVT prophylaxis Z29.9 Acute exacerbation of chronic obstructive pulmonary disease (COPD) J44.1 Acute on chronic right-sided congestive heart failure I50.813 Pneumonia J18.9 Septic shock A41.9, R65.21 Hypoxia R09.02 Depression F32.A Dental abscess K04.7 Alcoholism in remission F10.[address] R93.89 Full code status Z78.9 Urinary tract infection N39.0 Urinary retention R33.9 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, 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 CAP (community acquired pneumonia) J18.9 Generalized weakness R53.1 Skin tear of left elbow without complication S51.012A Chronic obstructive lung disease Tricuspid regurgitation CAD (coronary artery disease) Hypertension I10 Medical History Medical History Abdominal pain Abnormal radiologic findings on diagnostic imaging of renal pelvis, ureter, or bladder Acute on chronic anemia Acute on chronic diastolic (congestive) heart failure Acute on chronic systolic CHF (congestive heart failure) [place] [facility] [place]EGD 04/2021 with friable mucosa. SDOne at that time because of GI blooed Afib Alcohol abuse Alcohol abuse, continuous drinking behavior Anemia Bilateral lower extremity edema CAD (coronary artery disease) of artery bypass graft Cerumen impaction CHF, acute on chronic Confusion state COVID-19 COVID-19 Diabetes mellitus Difficulty reading Edema Encounter for colorectal cancer screening Epididymitis, right (08/02/16) Essential hypertension Failure to thrive Fall GERD (gastroesophageal reflux disease) GI bleed GI bleeding H/O malignant neoplasm of stomach Heart failure, left, with LVEF 41-49% History of GI bleed Hoarseness Hydrocele, right (01/23/16) Hyperlipidemia Hypophosphatemia Kyphoscoliosis Low back pain Malnutrition Mild bibasilar atelectasis Pancreatitis Poor hygiene Prediabetes Protein malnutrition Pulmonary hypertension Recent weight loss Rib fractures Shortness of breath Solitary pulmonary nodule Tinnitus, left Tobacco abuse Weight loss Surgical History Surgical History cardiac cath Coronary Artery Bypass Gaft (CABG) EGD - IV Sedation Esophagectomy H/O colonoscopy (2007) H/O colonoscopy (04/14/18) dr geller, sigmoid diverticulosis, repeat 10 years History of esophagogastroduodenoscopy (EGD) (09/2017) History of hydrocelectomy History of right inguinal hernia repair repair times two sugrical flap of unhealing wound Tobacco Smoking/Tobacco Use Status: Current every day Tobacco Type: cigarettes Smoking packs per day: 1 Smoking cigarettes per day: 20.0 Years smoked: 50 Smoking pack-years: 50.00 Alcohol Alcohol Intake: former Substance Use Substance use: Never Substance use type: does not use Vital Signs and Lab Results Vital Signs Most Recent Vital Signs in EMR: Most Recent Vital Signs Temp Pulse Resp BP Pulse Ox 36.7 C 89 19 97/64 L 99 08/28/22 03:55 08/28/22 07:46 08/28/22 07:46 08/28/22 07:46 08/28/22 07:46 Lab Results 08/28/22 04:15 08/28/22 04:15 Blood Type / Crossmatch: No Data to Display Complete Blood Count: White Blood Count 12.32 10^3/uL (4.4-10.8) H 08/28/22 04:15 Red Blood Count 4.54 10^6/uL (4.36-5.78) 08/28/22 04:15 Hemoglobin 13.7 g/dL (13.5-17.5) 08/28/22 04:15 Hematocrit 43.7 % (40.0-50.0) 08/28/22 04:15 Platelet Count 304 10^3/uL (130-400) 08/28/22 04:15 Complete Metabolic Panel: Sodium 137 mmol/L (136-145) 08/28/22 04:15 Potassium 4.8 mmol/L (3.5-5.1) 08/28/22 04:15 Chloride 101 mmol/L (98-107) 08/28/22 04:15 Carbon Dioxide 24.0 mmol/L (21.0-32.0) 08/28/22 04:15 BUN 44 mg/dL (7-18) H 08/28/22 04:15 Creatinine 1.7 mg/dL (0.70-1.30) H 08/28/22 04:15 Est GFR (CKD-EPI 2020) 42.30 (mL/min/1.73m2) 08/28/22 04:15 Magnesium 2.0 mg/dL (1.8-2.4) 08/28/22 04:15 Calcium 9.0 mg/dL (8.5-10.1) 08/28/22 04:15 Albumin 3.1 g/dL (3.4-5.0) L 08/28/22 04:15 Glucose 150 mg/dL (74-106) H 08/28/22 04:15 Liver Function Panel: Alanine Aminotransferase (ALT/SGPT) 15 U/L (16-63) L 08/28/22 04:15 Aspartate Amino Transf (AST/SGOT) 30 U/L (15-37) 08/28/22 04:15 Coagulation Panel: INR International Normalized Ratio 1.1 (0.9-1.1) 08/28/22 04:15 Prothrombin Time 11.0 sec (9.3-11.0) 08/28/22 04:15 Activated Partial Thromboplast Time 26.5 sec (21.5-31.9) 08/28/22 04:15 Cardiac Panel: Troponin I < 50 ng/L (<or=60) 08/28/22 NT-Pro-B Natriuret Pep 4907 pg/mL (<300) H 08/08/22 Arterial Blood Gas: No Data to Display Venous Blood Gas: No Data to Display Pancreas Panel: No Data to Display Thyroid Panel: No Data to Display Infectious Disease: Coronavirus (COVID-19)(PCR) Negative (Negative) 08/28/22 04:15 Coronavirus 2019 Source Nasal/Nares 08/28/22 04:15 Blood Cultures: No Data to Display Toxicology Panel: Ethyl Alcohol Level < 3.0 mg/dL (<10) 08/08/22 01:35 Urine Amphetamines Screen Negative (Negative) 08/08/22 02:00 Urine Benzodiazepines Screen Negative (Negative) 08/08/22 02:00 Urine Barbiturates Screen Negative (Negative) 08/08/22 02:00 Urine Cocaine Screen Negative (Negative) 08/08/22 02:00 Urine Methadone Screen Negative (Negative) 08/08/22 02:00 Urine Opiates Screen Negative (Negative) 08/08/22 02:00 Ur Tricyclic Antidepressants Screen Negative (Negative) 08/08/22 02:00 Ur Tetrahydrocannabinol (THC) Scrn Negative (Negative) 08/08/22 02:00 Imaging and Studies Imaging and Studies Study information below may be from another EMR and interpreted by another provider. Please see original notes in EMR for more complete details. EKG Summary: 08/28/2022: Exam: Resting ECG Reason for Exam: elevated heart rate Patient Location: E HR:97 bpm ECG Measurements Heart Rate 97 AXIS TX [id number] P [id number] QRSd 85 QRS 87 QT 358 T59 QTc 455 Conclusion Atrial fibrillation...V-rate 75-108, irreg A-activity Anteroseptal infarct, age indeterminate...Q >35mS, T neg, [id number] artifact limiting interpreation, no stemi Echocardiogram Summary: 07/20/2022: Conclusion Normal left ventricular wall thickness and chamber size. Estimated ejection fraction is 60% , there are no segmental wall motion abnormalities Right ventricle is moderately dilated. There is paradoxic septal motion consistent with right ventricular volume overload The right atrium is moderately dilated. The left atrium is mildly dilated Aortic valve is mildly sclerotic and trileaflet without stenosis or regurgitation Normal mitral valve with mild regurgitation Normal tricuspid valve with moderate to severe regurgitation. Estimated right ventricular systolic pressure is 53 mmHg Anesthesia Assessment and Plan Anesthesia History Personal History: No History of Anesthesia Complications Family History: No Family History of Anesthesia Complications Exercise Tolerance Exercise Tolerance: Metabolic Equivalents<4 Cardiac & Pulmonary Exam Cardiac Exam: Heart Murmur Present (Gallop) Pulmonary Exam: Other (Diminished) Implantable Cardiac Device Does patient have a Pacemaker or an ICD?: No Airway Exam Known Difficult Airway: No Mallampati Class: 4 Mouth Opening: Normal (> 3cm) Thyromental Distance: Greater than 3 cm Neck Range of Motion: Full ROM Neck Circumference: Normal Teeth Condition: Removable Dentures/Plates Upper ASA Classification ASA Score: ASA 4 Emergency Case?: Yes NPO Status NPO Status: NPO Clears >2 hours, Solids >8 hours Anesthesia Plan Resuscitation Status: Full Code Anesthesia Technique: Spinal Anesthesia Airway Planned: Natural Airway Monitors Used: Standard Monitors and Arterial Line Preoperative Comments:: Calculated Mean PAP: 36, mild-moderate pulmonary hypertension, severe mixed emphysema/pulmonary fibrosis Severely deconditioned patient who fell and has a hip fracture. Unable to transfer patient. Reviewed recent admission notes from July and thorough review of current AUG. Patient is a poor historian and unable speak well to his pulmonary function at baseline. Upon assessment in ER, patient supine with nasal cannula. Plan for SAB in OR with sedation, GA/ETT backup plan.
--- NOTE | 2022-08-28 10:13 | W.ORTHOCONSU ---
Date of service: 08/28/22 Time of Service: 09:30 History of Present Illness History of Present Illness Chief Complaint: Left Leg Pain Narrative: Ilia is a 72-year-old frail male with multiple medical comorbidities who unfortunately fell early this morning. He landed on his left side with immediate pain and inability to ambulate. He was able to be returned to bed but then EMS brought into the emergency department where he was diagnosed with a displaced intertrochanteric fracture about the left hip. He also had a skin tear to the left elbow which has been dressed by the emergency department physician. Currently, he reports pain primarily about the left hip. He denies any pain about the upper extremities or right lower extremity. He mobilizes minimally at baseline. He was recently hospitalized back in July. He lives independently at home with a roommate. He denies active numbness or tingling about the left leg. He does have issues with fluid retention in his lower legs although this is per his baseline. He denies any chest pain or shortness of breath different from usual. He denies any fevers or chills. Consults Consult date: 08/28/22 Requesting physician: Shaun Watts Consult Reason Left intertrochanteric hip fracture Assessment and Plan Assessment and plan (1) Closed fracture of left hip: Status: Acute Assessment and plan: Ilia is a 72-year-old who has a comminuted fracture about the left hip. There is an intertrochanteric variety with the primary basicervical fracture pattern with associated comminution of the lesser and greater trochanters. He has a frail and somewhat unwell individual. However, he is stable. He was recently admitted and has been doing well since that admission. He seems to be at his usual baseline of health. I recommend at this time that he undergo surgical fixation of the hip fracture to allow mobilization and to help with pain. I discussed this case with anesthetic coverage for the weekend who agrees to proceed with obvious concerns about overall health. His previous admission was thoroughly reviewed including studies of his laboratories, vitals, and echocardiograms. Hospital admit for medical evaluation and management. I discussed the case with Ilia in detail and he agrees to proceed with a left hip fracture as he wants it fixed. He is a full code. I discussed the risk of the procedure to include bleeding, infection, pain, stiffness, malunion, nonunion, or prominence, hardware failure, need for repeat procedures, blood clot, damage nerves and vessels, damage to muscles and tendons. Despite these risks, he elects to proceed. Review of Systems All systems reviewed & are unremarkable except as noted in HPI and below PFSH All Active Problems Overdose (Acute) Aspiration pneumonitis (Acute) Fall (Acute) Blunt head trauma (Acute) Contusion of elbow, left (Acute) Contusion of left leg (Acute) Closed fracture of left hip (Acute) Mild cognitive impairment (Acute) Advanced care planning/counseling discussion (Acute) Literacy level of illiterate (Acute) Palliative care encounter (Acute) Discharge planning issues (Acute) DVT prophylaxis (Acute) Acute exacerbation of chronic obstructive pulmonary disease (COPD) (Acute) Acute on chronic right-sided congestive heart failure (Acute) Pneumonia (Acute) Hypoxia (Acute) Depression (Chronic) Dental abscess (Acute) 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) Abnormal chest CT (Acute) Full code status (Acute) Urinary tract infection (Acute) 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) CAP (community acquired pneumonia) (Acute) Generalized weakness (Acute) Skin tear of left elbow without complication (Acute) Chronic obstructive lung disease (Chronic) Tricuspid regurgitation (Chronic) CAD (coronary artery disease) (Chronic) Hypertension (Chronic) Medical History Abdominal pain Abnormal radiologic findings on diagnostic imaging of renal pelvis, ureter, or bladder Acute on chronic anemia Acute on chronic diastolic (congestive) heart failure Acute on chronic systolic CHF (congestive heart failure) [place] [facility] [place]...EGD 04/2021 with friable mucosa. SDOne at that time because of GI blooed Afib Alcohol abuse Alcohol abuse, continuous drinking behavior Anemia Bilateral lower extremity edema CAD (coronary artery disease) of artery bypass graft Cerumen impaction CHF, acute on chronic Confusion state COVID-19 COVID-19 Diabetes mellitus Difficulty reading Edema Encounter for colorectal cancer screening Epididymitis, right (08/02/16) Essential hypertension Failure to thrive Fall GERD (gastroesophageal reflux disease) GI bleed GI bleeding H/O malignant neoplasm of stomach Heart failure, left, with LVEF 41-49% History of GI bleed Hoarseness Hydrocele, right (01/23/16) Hyperlipidemia Hypophosphatemia Kyphoscoliosis Low back pain Malnutrition Mild bibasilar atelectasis Pancreatitis Poor hygiene Prediabetes Protein malnutrition Pulmonary hypertension Recent weight loss Rib fractures Shortness of breath Solitary pulmonary nodule Tinnitus, left Tobacco abuse Weight loss Surgical History cardiac cath Coronary Artery Bypass Gaft (CABG) EGD - IV Sedation Esophagectomy H/O colonoscopy (2007) H/O colonoscopy (04/14/18) dr geller, sigmoid diverticulosis, repeat 10 years History of esophagogastroduodenoscopy (EGD) (09/2017) History of hydrocelectomy History of right inguinal hernia repair repair times two sugrical flap of unhealing wound Family History Mother No problems noted. Father No problems noted. Social History Smoking/Tobacco Use Status: Current every day Tobacco Type: cigarettes Smoking packs per day: 1 Smoking cigarettes per day: 20.0 Years smoked: 50 Smoking pack-years: 50.00 Smoking risk assessment performed?: Yes Alcohol Intake: former Drug use: Never Substance use type: does not use What type of physical activity do you participate in: none Do you feel safe at home: Yes Do you feel safe in your relationship?: Yes Exam Const General: cooperative, comfortable, no acute distress and frail appearing HENMT Head: normal to inspection and normocephalic Neck Neck: normal visual inspection and full ROM Resp Effort & Inspection: normal respiratory effort, able to speak in complete sentences, no audible wheezes and no cough Extrem Other: Evaluation of the left lower leg shows an excellent rotated and shortened and slightly flexed position. Range of motion was not tested of the hip with a known fracture. There is no pain to palpation of the distal femur, knee, leg, or foot and ankle. Pitting edema is seen about the foot and the ankle, 1+. He endorses sensation over the deep and superficial peroneal nerve and tibial nerve. Weakly palpable DP pulse. No lesions or laceration seen to the skin about the left lower extremity. Left elbow is wrapped with bandages over a skin tear. Otherwise full active range of motion is appreciated about both left and right upper extremities. Results Last Vital Signs Temp 36.7 C 08/28/22 03:55 Pulse 89 08/28/22 07:46 Resp 19 08/28/22 07:46 BP 97/64 L 08/28/22 07:46 Pulse Ox 99 08/28/22 07:46 Labs 08/28/22 04:15 08/28/22 04:15 Labs: Laboratory Results - last 24 hr 08/28/22 08/28/22 08/28/22 04:15 04:15 04:15 WBC 12.32 H RBC 4.54 Hgb 13.7 Hct 43.7 MCV 96 H MCH 30.2 MCHC 31.4 L RDW 14.6 H Plt Count 304 MPV 9.4 Immature Gran % 0.6 Neutrophils % 78.6 Lymphocytes % 11.2 Monocytes % 8.2 Eosinophils % 1.1 Basophils % 0.3 Nucleated RBC % 0.0 Absolute Neutrophils 9.68 H Absolute Lymphocytes 1.38 Absolute Monocytes 1.01 H Absolute Eosinophils 0.14 Absolute Basophils 0.04 PT INR APTT Sodium 137 Potassium 4.8 Chloride 101 Carbon Dioxide 24.0 Anion Gap 12.0 H BUN 44 H Creatinine 1.7 H Est GFR (CKD-EPI 2020) 42.30 Glucose 150 H Calcium 9.0 Magnesium 2.0 Iron TIBC Transferrin % Sat Total Bilirubin 0.4 AST 30 ALT 15 L Alkaline Phosphatase 151 H Troponin I < 50 Total Protein 8.3 H Albumin 3.1 L COVID-19 Source Nasal/Nares SARS-CoV-2 (PCR) Negative Add-On Test Request 08/28/22 08/28/22 08/28/22 04:15 04:15 04:15 WBC RBC Hgb Hct MCV MCH MCHC RDW Plt Count MPV Immature Gran % Neutrophils % Lymphocytes % Monocytes % Eosinophils % Basophils % Nucleated RBC % Absolute Neutrophils Absolute Lymphocytes Absolute Monocytes Absolute Eosinophils Absolute Basophils PT 11.0 INR 1.1 APTT 26.5 Sodium Potassium Chloride Carbon Dioxide Anion Gap BUN Creatinine Est GFR (CKD-EPI 2020) Glucose Calcium Magnesium Iron 53 L TIBC 334 Transferrin % Sat 16 L Total Bilirubin AST ALT Alkaline Phosphatase Troponin I Total Protein Albumin COVID-19 Source SARS-CoV-2 (PCR) Add-On Test Request DONE 08/28/22 07:52 WBC RBC Hgb Hct MCV MCH MCHC RDW Plt Count MPV Immature Gran % Neutrophils % Lymphocytes % Monocytes % Eosinophils % Basophils % Nucleated RBC % Absolute Neutrophils Absolute Lymphocytes Absolute Monocytes Absolute Eosinophils Absolute Basophils PT INR APTT Sodium Potassium Chloride Carbon Dioxide Anion Gap BUN Creatinine Est GFR (CKD-EPI 2020) Glucose Calcium Magnesium Iron TIBC Transferrin % Sat Total Bilirubin AST ALT Alkaline Phosphatase Troponin I < 50 Total Protein Albumin COVID-19 Source SARS-CoV-2 (PCR) Add-On Test Request Imaging Imaging Studies: X-ray of the left hip including pelvis and left femur as well as the left tib-fib was reviewed. This shows a fracture of the intertrochanteric region of the left femur. There is some mild comminution and displacement. CT scan of the pelvis was also reviewed. This shows significant calcification of the vessels within the pelvis. The fracture is more comminuted on the CT scan and appreciate on the x-rays with extension into the greater trochanter. The lesser trochanter appears to be a free piece and this is more of a basicervical pattern given the comminution. No distal extension. No pelvic fracture.
[2022-08-28 10:33] LABS: Bilirubin Negative (Negative); Blood Negative (Negative); Clarity Clear (Clear); Glucose Negative (Negative); Ketones Negative (Negative); Leukocyte Esterase Negative (Negative); Nitrite Negative (Negative); Specific Gravity 1.025 (1.005-1.025); Urobilinogen 0.2 mg/dL (Up to 0.2); pH 5.5 (5-8)
--- NOTE | 2022-08-28 10:45 | DI.RAD_ITS ---
Exam(s) XR HIP LT IN OR EXAM: XR HIP LT IN OR CLINICAL HISTORY: LEFT INTERTROCHANTERIC HIP FX. TECHNIQUE: 2D and realtime digital imaging was performed. COMPARISON: No exams were available for comparison FINDINGS: Fluoroscopy was provided in the OR for Dr. Chávez. Hard copy image shows placement a gamma nail in the left proximal femur for fracture fixation. The fracture alignment appears anatomic. Please see procedure note for details. Fluoro time: 52.8seconds RADIATION DOSE DELIVERED: wayne Farias=4.23 mGy
--- NOTE | 2022-08-28 11:20 | W.PM.HP.N ---
Date of service: 08/28/22 Time of Service: 11:20 Assessment and Plan Assessment and plan (1) Closed intertrochanteric fracture of left femur: Status: Acute Assessment and plan: Secondary to ground level fall. Legs gave out. No LOC Planned repair by Dr Chávez on day of admission. (2) Alcoholism in remission: Status: Acute Assessment and plan: Low BMI likely secondary to previous chronic alcohol abuse disorder. (3) CAD (coronary artery disease): Status: Chronic Assessment and plan: Not on aspirin. Cont BB when BP allows. (4) Diastolic heart failure: Status: Acute Assessment and plan: Judicious use of any IV fluids. Presented with mild dehydration. Post-op will evaluate for need of IV hydration. (5) Chronic obstructive lung disease: Status: Chronic Assessment and plan: Cont Stiolto. PRN albuterol. (6) Discharge planning issues: Status: Acute Assessment and plan: Full code. Has been seen by palliative; last November. Likely will require SNF. History of Present Illness History of Present Illness Chief Complaint: Fall with left hip pain Narrative: This is a 72 yo male with a PMH of COPD, pulmonary fibrosis, CAD, HFpEF, esophageal and gastric malignancy, chronic BLE venous stasis. He present to the ED after falling at home shortly before arrival. He was standing at his bureau/dresser when his legs gave out. He fell and landed on his left side. He denied LOC and was assisted with getting up by his roommate who helped him to bed and called EMS. On arrival to the ED he c/o left hip and elbow pain. No evidence of head trauma noted. Imaging showed left intertrochanteric femur fx. CXR showed a patchy opacification of the left lung base that may reflect a pulmonary contusion. He denied any cough/sputum, shortness of breath prior to admission. He was discharged on 07/23/22 from [facility] after admission for PNA. Review of Systems All systems reviewed & are unremarkable except as noted in HPI and below PFSH All Active Problems (Updated 08/29/22 @ 13:36 by Mio Navarro MD) Diastolic heart failure (Acute) Closed intertrochanteric fracture of left femur (Acute) Overdose (Acute) Aspiration pneumonitis (Acute) Fall (Acute) Blunt head trauma (Acute) Contusion of elbow, left (Acute) Contusion of left leg (Acute) Closed fracture of left hip (Acute) Mild cognitive impairment (Acute) Advanced care planning/counseling discussion (Acute) Literacy level of illiterate (Acute) Palliative care encounter (Acute) Discharge planning issues (Acute) DVT prophylaxis (Acute) Acute exacerbation of chronic obstructive pulmonary disease (COPD) (Acute) Acute on chronic right-sided congestive heart failure (Acute) Pneumonia (Acute) Hypoxia (Acute) Depression (Chronic) Dental abscess (Acute) 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) Abnormal chest CT (Acute) Full code status (Acute) Urinary tract infection (Acute) 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) CAP (community acquired pneumonia) (Acute) Generalized weakness (Acute) Skin tear of left elbow without complication (Acute) Chronic obstructive lung disease (Chronic) Tricuspid regurgitation (Chronic) CAD (coronary artery disease) (Chronic) Hypertension (Chronic) Medical History Abdominal pain Abnormal radiologic findings on diagnostic imaging of renal pelvis, ureter, or bladder Acute on chronic anemia Acute on chronic diastolic (congestive) heart failure Acute on chronic systolic CHF (congestive heart failure) Adenocarcinoma of esophagus From [facility] [place]:Hx GI Cancer...EGD 04/2021 with friable mucosa. SDOne at that time because of GI blooed Afib Alcohol abuse Alcohol abuse, continuous drinking behavior Anemia Bilateral lower extremity edema CAD (coronary artery disease) of artery bypass graft Cerumen impaction CHF, acute on chronic Confusion state COVID-19 COVID-19 Diabetes mellitus Difficulty reading Edema Encounter for colorectal cancer screening Epididymitis, right (08/02/16) Essential hypertension Failure to thrive Fall GERD (gastroesophageal reflux disease) GI bleed GI bleeding H/O malignant neoplasm of stomach Heart failure, left, with LVEF 41-49% History of GI bleed Hoarseness Hydrocele, right (01/23/16) Hyperlipidemia Hypophosphatemia Kyphoscoliosis Low back pain Malnutrition Mild bibasilar atelectasis Pancreatitis Poor hygiene Prediabetes Protein malnutrition Pulmonary hypertension Recent weight loss Rib fractures Shortness of breath Solitary pulmonary nodule Tinnitus, left Tobacco abuse Weight loss Surgical History cardiac cath Coronary Artery Bypass Gaft (CABG) EGD - IV Sedation Esophagectomy H/O colonoscopy (2007) H/O colonoscopy (04/14/18) dr geller, sigmoid diverticulosis, repeat 10 years History of esophagogastroduodenoscopy (EGD) (09/2017) History of hydrocelectomy History of right inguinal hernia repair repair times two sugrical flap of unhealing wound Family History Mother No problems noted. Father No problems noted. Social History Smoking/Tobacco Use Status: Current every day Tobacco Type: cigarettes Smoking packs per day: 1 Smoking cigarettes per day: 20.0 Years smoked: 50 Smoking pack-years: 50.00 Smoking risk assessment performed?: Yes Alcohol Intake: former Drug use: Never Substance use type: does not use What type of physical activity do you participate in: none Do you feel safe at home: Yes Do you feel safe in your relationship?: Yes Meds Allergies and Home Medications Allergies Allergy/AdvReac Type Severity Reaction Status Date / Time No Known Allergies Allergy Verified 08/28/22 04:05 Home Medications Medication Instructions Recorded Confirmed Type ipratropium 20 mcg-albuterol 100 1 puff inhalation Q6H PRN 06/10/22 08/28/22 History mcg/actuation mist for inhalation (Combivent Respimat) furosemide 20 mg tablet (Lasix) 20 mg PO QAM 06/24/22 08/28/22 History gabapentin 300 mg capsule 300 mg PO TID 07/19/22 08/28/22 History metoprolol tartrate 25 mg tablet 25 mg PO DAILY 07/19/22 08/28/22 History mirtazapine 7.5 mg tablet 7.5 mg PO DAILY 07/19/22 08/28/22 History tiotropium 2.5 mcg-olodaterol 2.5 2 puff inhalation DAILY #4 grams 07/23/22 Rx mcg/actuation mist for inhalation (Stiolto Respimat) amoxicillin 875 mg-potassium 1 tab PO BID #20 tabs 08/08/22 Rx clavulanate 125 mg tablet atorvastatin 10 mg tablet 10 mg PO HS 08/28/22 08/28/22 History cholecalciferol (vitamin D3) 50 50 mcg PO DAILY 08/28/22 08/28/22 History mcg (2,000 unit) tablet food supplemt, lactose-reduced 237 ml PO 3XD 08/28/22 08/28/22 History (Ensure oral liquid) hydrocodone 10 mg-acetaminophen 1 tab PO Q8H 08/28/22 08/28/22 History 325 mg tablet multivitamin with minerals-ferrous tab 08/28/22 08/28/22 History sulfate 4.5 mg iron tablet (One Daily Multivitamins with Minerals) pantoprazole 40 mg tablet,delayed 40 mg PO BID 08/28/22 08/28/22 History release spironolactone 25 mg tablet 50 mg PO DAILY 08/28/22 08/28/22 History tamsulosin 0.4 mg capsule 0.4 mg PO HS 08/28/22 08/28/22 History tiotropium 2.5 mcg-olodaterol 2.5 2 puff inhalation DAILY 08/28/22 08/28/22 History mcg/actuation mist for inhalation (Stiolto Respimat) Exam Narrative Exam Narrative: Lying on gurney in ED. Fatigued appearing. Const General: no acute distress Orientation: alert HENMT Head: normal to inspection Mouth: moist mucous membranes Eyes General: appearance normal, both eyes and all related structures Sclera: sclerae normal Neck Neck: normal visual inspection Resp Effort & Inspection: cough Quality of cough: wet and not tachypneic Auscultation: clear to auscultation bilaterally Cardio Jugular venous pressure: no JVD Rate: regular rate Heart Sounds: no murmurs GI Inspection: non-distended Palpation: nontender Skin General skin exam: no rashes or lesions noted Neuro General: patient alert, patient oriented x3 and no focal motor deficits (Left leg with minimal ROM d/t femur fx. ) Cranial Nerves: facial strength normal Extrem General: capillary refill normal Left lower extremity: hip/thigh (Ext rotation and shortened. Flexed slightly. ) Psych Mental Status: mental status grossly normal Affect: blunted Results Labs 08/28/22 04:15 08/28/22 04:15 Labs: Laboratory Results - last 24 hr 08/28/22 08/28/22 08/28/22 04:15 04:15 04:15 WBC 12.32 H RBC 4.54 Hgb 13.7 Hct 43.7 MCV 96 H MCH 30.2 MCHC 31.4 L RDW 14.6 H Plt Count 304 MPV 9.4 Immature Gran % 0.6 Neutrophils % 78.6 Lymphocytes % 11.2 Monocytes % 8.2 Eosinophils % 1.1 Basophils % 0.3 Nucleated RBC % 0.0 Absolute Neutrophils 9.68 H Absolute Lymphocytes 1.38 Absolute Monocytes 1.01 H Absolute Eosinophils 0.14 Absolute Basophils 0.04 PT INR APTT Sodium 137 Potassium 4.8 Chloride 101 Carbon Dioxide 24.0 Anion Gap 12.0 H BUN 44 H Creatinine 1.7 H Est GFR (CKD-EPI 2020) 42.30 Glucose 150 H Calcium 9.0 Magnesium 2.0 Iron TIBC Transferrin % Sat Total Bilirubin 0.4 AST 30 ALT 15 L Alkaline Phosphatase 151 H Troponin I < 50 Total Protein 8.3 H Albumin 3.1 L Urine Color Urine Clarity Urine pH Ur Specific [place] Urine Protein Urine Ketones Urine Blood Urine Nitrite Urine Bilirubin Urine Urobilinogen Ur Leukocyte Esterase Urine Glucose COVID-19 Source Nasal/Nares SARS-CoV-2 (PCR) Negative Add-On Test Request 08/28/22 08/28/22 08/28/22 04:15 04:15 04:15 WBC RBC Hgb Hct MCV MCH MCHC RDW Plt Count MPV Immature Gran % Neutrophils % Lymphocytes % Monocytes % Eosinophils % Basophils % Nucleated RBC % Absolute Neutrophils Absolute Lymphocytes Absolute Monocytes Absolute Eosinophils Absolute Basophils PT 11.0 INR 1.1 APTT 26.5 Sodium Potassium Chloride Carbon Dioxide Anion Gap BUN Creatinine Est GFR (CKD-EPI 2020) Glucose Calcium Magnesium Iron 53 L TIBC 334 Transferrin % Sat 16 L Total Bilirubin AST ALT Alkaline Phosphatase Troponin I Total Protein Albumin Urine Color Urine Clarity Urine pH Ur Specific [place] Urine Protein Urine Ketones Urine Blood Urine Nitrite Urine Bilirubin Urine Urobilinogen Ur Leukocyte Esterase Urine Glucose COVID-19 Source SARS-CoV-2 (PCR) Add-On Test Request DONE 08/28/22 08/28/22 07:52 10:25 WBC RBC Hgb Hct MCV MCH MCHC RDW Plt Count MPV Immature Gran % Neutrophils % Lymphocytes % Monocytes % Eosinophils % Basophils % Nucleated RBC % Absolute Neutrophils Absolute Lymphocytes Absolute Monocytes Absolute Eosinophils Absolute Basophils PT INR APTT Sodium Potassium Chloride Carbon Dioxide Anion Gap BUN Creatinine Est GFR (CKD-EPI 2020) Glucose Calcium Magnesium Iron TIBC Transferrin % Sat Total Bilirubin AST ALT Alkaline Phosphatase Troponin I < 50 Total Protein Albumin Urine Color Yellow Urine Clarity Clear Urine pH 5.5 Ur Specific [place] 1.025 Urine Protein Negative Urine Ketones Negative Urine Blood Negative Urine Nitrite Negative Urine Bilirubin Negative Urine Urobilinogen 0.2 Ur Leukocyte Esterase Negative Urine Glucose Negative COVID-19 Source SARS-CoV-2 (PCR) Add-On Test Request Last Vital Signs Temp 36.7 C 08/28/22 03:55 Pulse 77 08/28/22 10:15 Resp 21 08/28/22 10:16 BP 108/64 08/28/22 10:15 Pulse Ox 97 08/28/22 10:01 Time Spent Time spent with Patient: 40-54 minutes Time was spent: preparing to see the patient(eg.review tests), obtaining and/or reviewing separately otained hiistory, ordering medications,tests, procedures, referring, communicating with other health care tech and indepentently interpreting results
[2022-08-28] MEDS: ceFAZolin 2 GM/50 ML BAG IVPB (12:20)
--- NOTE | 2022-08-28 12:51 | W.ANESVAS ---
Arterial Line Placement Date Performed: 08/28/22 Procedure Time: 11:30 Procedure Location: Emergency Department Requesting Provider: Lidia Moreno Timeout Performed: Yes Sedation Given (Indicate Dose Given): No Sedation given Patient Mental Status: Awake Sterility: Hand Hygiene, Surgical Cap, Surgical Mask, Sterile Gloves and Chlorhexidine Laterality: Left Insertion Site: Radial Arterial Line Catheter: 20G [place] Arterial Line Procedure: 1% Lidocaine to skin and subcutaneous tissue with 25g needle, Vessel accessed with catheter over needle, Guidewire placed with ease, Catheter placed without resistance and Guidewire removed Dressing: Tegaderm Applied and Mastisol Used Ultrasound: Sterile probe cover and gel used Ultrasound Image Saved?: No Number of Attempts (See previous attempts in note section): 2 Procedure Tolerated: No Complications Procedure Outcome: Successful Procedure Comment:: Attempt x1 on right radial, unable to thread catheter. Prepped left side, placed under ultrasound guidance. Patient awake and tolerated procedure well. Performed By: Lidia Moreno
--- NOTE | 2022-08-28 13:40 | ROE_ITS ---
Date of service: 08/28/22 Time of Service: 13:40 Operative Note Operative Note DATE OF PROCEDURE: 08/28/22 PRE-OP DIAGNOSIS: Left Intertrochanteric Femur Fracture POST-OP DIAGNOSIS: same PROCEDURE: Left Intramedullary Fixation of Proximal Femur Fracture SURGEON: Gordy Chávez ANESTHESIA TYPE: Spinal Refer to Anesthesia Record ESTIMATED BLOOD LOSS: 20 PATHOLOGY: none sent COMPLICATIONS: None Patient was transported to: PACU Patient's condition: stable Implants: Depuy-Synthes TFNA 11mm x 170mm Indications: Ilia is a 72 year old male who presented to the Emergency Department after a fall. X-rays confirmed the diagnosis of a intertrochanteric fracture of the proximal femur. I reviewed the possible treatment options and given the fracture of the femur, I recommened operative fixation. I discussed the technical details of the surgery. I reviewed the risks such as bleeding, infection, pain, stiffness, malunion, nonunion, hardware prominence, hardware faiilure, malrotation, avascular necrosis, blood clot. Despite these risks, he agreed to proceed. Findings: There was a fracture of the proximal femur which was able to be reduced with traction and internal rotation and external manipulation. Procedure Description: Ilia was taken back to the operating room. A spinal anesthestic was then administered. The feet were wrapped with cast padding and Coban and then placed into the boot liners and then into the boots. Care was taken to protect the skin and make sure the heels were fully down and the boots were stable. The patient was then positioned onto the HANA table. Both legs were held in a neutral position. SCDs were applied. The patient was then slid down onto a perineal post. The arm of the operative side was placed out to his side and secured for best IV and arterial line access. The nonoperative leg was scissored. A gentle reduction was then performed with traction and internal rotation and gentle external manipulation. Prophylactic antibiotics in the form of Cefazolin were administered. 1g of Tranxemic Acid was given intravenously within 30 minutes of incision. The left leg was then prepped with Chloraprep and draped in a standard fashion with shower-curtain type drape with Iodine impregnated skin protection. A timeout to confirm correct identity, side and site, procedure, allergies, anesthesia, and medical concerns was performed. Using fluoroscopy, the starting point was marked over the lateral hip, proximal to the tip of the greater trochanter. A 3cm incision was made through skin and the fascia of the gluteus musculature until the tip of the trochanter was palpable. The starting wire was placed onto the tip, just slightly on the media aspect, and centered in the AP plane. Using a porsche, the starting guide wire was buried into the bone. A lateral x-ray confirmed appropriate position and the guidewire was advanced to the level of the lesser trochanter. With a tissue protector, the proximal femur was opened with the opening reamer. The short TFNA was chosen for this case and a Synthes TFNA [id number] nail was selected and opened on the back table. The nail was assembled to the aiming arm on the back table and confirmed to be aligned with the triple sleeve for blade insertion. Using manual force the nail was advanced into the femur. A few light mallet blows advanced the nail to its appropriate position. The triple sleeve was inserted through the targeting arm and the skin, soft tissue, and IT band was then incised. The triple sleeve was advanced down to the lateral femur. A guidewire was advanced into the femoral head where it was noted to be centered. A lateral x-ray was used to confirm centered positioning on the lateral. Happy with the length of the guidewire, this was measured. A 95mm helical blade was opened. The lateral cortex was opened and the path of the blade was reamed with a tapered reamer to appropriate depth. The helical blade was malletted into position and confirmed to be appro priately located on fluoroscopy. The set screw was advanced to a half turn shy of fully tightened, allowing for the helical blade to slide. The targeting device was removed. AP and lateral x-rays of the hip confirmed appropriate positioning within the femur and with good alignment of the fracture. Using the targeting arm, the skin was incised for placement of the distal locking screw. The trochar was inserted through the skin and IT band down onto the lateral cortex of the femur. The 4.2mm drill was advanced across the femur and through the nail. This was measured and an appropriately sized 5.0mm screw was placed. The targeting arm was removed. Final x-rays were obtained. The wounds were thoroughly irrigated. A cocktail consisting of 123mg of Ropivacaine, 0.25mg of Epinephrine, 0.04mg of Clonidine, and 15mg of Ketorolac, diluted to 50cc was injected throughout the wounds both deep and superficially. The deep fascia of the proximal two wounds was reapproximated with a 0 Vicryl. The deep tisses were closed with a 2-0 Vicryl and the skin was closed with a running subcuticular Monocryl. The wounds were dressed with a Mepilex silver dressing. The skin tear about the left elbow was also dressed with a Mepilex silver dressing. There is noted to be stage I pressure to the sacrum which was dressed with a Mepilex sacral border dressing. At the end of the case, all counts were correct. Ilia tolerated the procedure well without known complication and was taken to the PACU for recovery. Physical therapy will start post-operatively, weigh-bearing as tolerated with as sistive devices. Anticoagulation may start this evening. 3 doses of post- operative antibitiocis for prophylaxis will be administered.
--- NOTE | 2022-08-28 14:13 | W.ANESPOSTOP ---
Postoperative Evaluation Date, Time and Location Date Performed: 08/28/22 Time Performed: 14:13 Patient Location: PACU Vital Signs Most Recent Imported Vital Signs: Most Recent Vital Signs Temp Pulse Resp BP Pulse Ox 36.6 C 101 H 11 L 99/54 L 98 08/28/22 14:10 08/28/22 14:10 08/28/22 14:10 08/28/22 14:10 08/28/22 14:10 Pain Score Most Recent Pain Score: Most Recent Pain Score Pain Level 0 08/28/22 14:10 Assessment Mental Status: Awake (Alert & Oriented to Patient Baseline) Airway and Respiratory Function: Patent airway with normal (patient baseline) respiratory exam Cardiovascular Function: Hemodynamically Stable Hydration Status: Adequately Hydrated Nausea & Vomiting: No Nausea or Vomiting Pain: Pt. Denies Any Pain Peripheral Nerve Block: Regional nerve block not resolved at time of post operative discharge Postoperative Comments:: Patient being transferred to Med/Surg from PACU. Arterial line removed in PACU and pressure dressing applied. Site dry and hemostatic.
[2022-08-28] MEDS: Albuterol 2.5 MG/3 ML INH SOLN VIAL UPD (15:41)
[2022-08-28] MEDS: ceFAZolin 1 GM/50 ML BAG IVPB (15:56)
[2022-08-28] MEDS: Normal Saline Flush 10 ML SYR IVP (15:56)
[2022-08-28] MEDS: Normal Saline 250 ML IV (16:32)
--- NOTE | 2022-08-28 17:33 | NUR.NOTE ---
Place pt on 1L/min O2 per NC r/t decreasing O2 sats of 85% while at rest. O2 sats increased to 92%. Will continue to monitor:
[2022-08-28] MEDS: Acetaminophen 325 MG TAB PO (19:25)
[2022-08-28] MEDS: Normal Saline 500 ML 75 ML IV (19:26)
[2022-08-28] MEDS: Enoxaparin 40 MG/0.4 ML SYR SC (19:27)
[2022-08-28] MEDS: Mirtazapine 15 MG TAB 7.5 MG PO (21:27)
[2022-08-28] MEDS: Tamsulosin 0.4 MG CAPCR PO (21:28)
[2022-08-28] MEDS: Atorvastatin 10 MG TAB PO (21:28)
[2022-08-29] VITALS (12 sets, daily range): BP systolic 72–140; BP diastolic 42–70; PULSE 82–112; RESP 16–22; TEMP 36.5–37.6; O2SAT 78–93
[2022-08-29] MEDS: ceFAZolin 1 GM/50 ML BAG IVPB ×2 (00:03→08:43)
[2022-08-29 06:56] LABS: Abs Immature Grans 0.03 10^3/uL (0.0-0.06); Absolute Basophil Count 0.03 10^3/uL (0.0-0.2); Absolute Eosinophil Count 0.18 10^3/uL (0.0-0.7); Absolute Lymphocyte Count 0.79 10^3/uL (1.2-3.4); Absolute Monocyte Count 0.94 10^3/uL (0.1-0.8); Absolute Neutrophil Count 7.69 10^3/uL (1.2-6.7); Basophils % 0.3; Eosinophils % 1.9; HCT 35.9 % (40.0-50.0); HGB 11.3 g/dL (13.5-17.5); Immature Grans % 0.3; Lymphocytes % 8.2; MCH 30.3 pg (27.0-33.0); MCHC 31.5 % (32.0-36.0); MCV 96 fL (80-95); MPV 10.5 fL (8.0-11.0); Monocytes % 9.7; Neutrophils % 79.6; Platelet Count 201 10^3/uL (130-400); RBC 3.73 10^6/uL (4.36-5.78); RDW 14.6 % (11.8-14.1); RDW-SD 51.1 fL; WBC 9.66 10^3/uL (4.4-10.8)
[2022-08-29 07:09] LABS: Anion Gap 6.5 mmol/L (3-11); BUN 33 mg/dL (7-18); CO2 24.5 mmol/L (21.0-32.0); CREATININE 1.2 mg/dL (0.70-1.30); Calcium 8.5 mg/dL (8.5-10.1); Chloride 109 mmol/L (98-107); Estimated GFR 64.25 (mL/min/1.73m2); Glucose 74 mg/dL (74-106); Potassium 4.8 mmol/L (3.5-5.1); Sodium 140 mmol/L (136-145)
[2022-08-29] MEDS: HYDROcodone 10/Acetaminophen 325 TAB PO ×3 (08:44→23:57)
[2022-08-29] MEDS: Cholecalciferol (Vitamin D3) 1,000 UNIT TAB 2000 UNITS PO (08:44)
[2022-08-29] MEDS: Pantoprazole 40 MG TABCR PO ×2 (08:45→20:16)
[2022-08-29] MEDS: Gabapentin 300 MG CAP PO ×3 (08:57→20:16)
[2022-08-29] MEDS: Tiotropium/Olodaterol 10 PUFF INHALER 2 PUFF IH (09:01)
[2022-08-29] MEDS: fentaNYL 100 MCG/2 ML VIAL 50 MCG IVP (10:50)
[2022-08-29] MEDS: Normal Saline Flush 10 ML SYR IVP (10:51)
--- NOTE | 2022-08-29 12:18 | PDOC.CMIN ---
- If Service Date Differs Date of service: 08/29/22 Time of Service: 12:18 Care Management Initial Assess REASON FOR HOSPITALIZATION:: L Intraochanter Femoral Fracture PAST MEDICAL HISTORY/PAST SURGICAL HISTORY:: All Active Problems. Overdose (Acute). Aspiration pneumonitis (Acute). Fall (Acute). Blunt head trauma (Acute). Contusion of elbow, left (Acute). Contusion of left leg (Acute). Closed fracture of left hip (Acute). Mild cognitive impairment (Acute). Advanced care planning/counseling discussion (Acute). Literacy level of illiterate (Acute). Palliative care encounter (Acute). Discharge planning issues (Acute). DVT prophylaxis (Acute). Acute exacerbation of chronic obstructive pulmonary disease (COPD) (Acute). Acute on chronic right-sided congestive heart failure (Acute). Pneumonia (Acute). Hypoxia (Acute). Depression (Chronic). Dental abscess (Acute). 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 Abnormal chest CT (Acute). Full code status (Acute). Urinary tract infection (Acute). Urinary retention (Chronic). 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 CAP (community acquired pneumonia) (Acute). Generalized weakness (Acute). Skin tear of left elbow without complication (Acute). Chronic obstructive lung disease (Chronic). Tricuspid regurgitation (Chronic). CAD (coronary artery disease) (Chronic). Hypertension (Chronic). Medical History. Abdominal pain. Abnormal radiologic findings on diagnostic imaging of renal pelvis, ureter, or bladder. Acute on chronic anemia. Acute on chronic diastolic (congestive) heart failure. Acute on chronic systolic CHF (congestive heart failure). Adenocarcinoma of esophagus. [place] [facility] [place]Hx GI Cancer...EGD 04/2021 with friable mucosa. SDOne at that time because of GI blooed. Afib. Alcohol abuse. Alcohol abuse, continuous drinking behavior. Anemia. Bilateral lower extremity edema. CAD (coronary artery disease) of artery bypass graft. Cerumen impaction. CHF, acute on chronic. Confusion state. COVID-19. COVID-19. Diabetes mellitus. Difficulty reading. Edema. Encounter for colorectal cancer screening. Epididymitis, right (08/02/16). Essential hypertension. Failure to thrive. Fall. GERD (gastroesophageal reflux disease). GI bleed. GI bleeding. H/O malignant neoplasm of stomach. Heart failure, left, with LVEF 41-49%. History of GI bleed. Hoarseness. Hydrocele, right (01/23/16). Hyperlipidemia. Hypophosphatemia. Kyphoscoliosis. Low back pain. Malnutrition. Mild bibasilar atelectasis. Pancreatitis. Poor hygiene. Prediabetes. Protein malnutrition. Pulmonary hypertension. Recent weight loss. Rib fractures. Shortness of breath. Solitary pulmonary nodule. Tinnitus, left. Tobacco abuse. Weight loss. Surgical History. cardiac cath. Coronary Artery Bypass Gaft (CABG). EGD - IV Sedation. Esophagectomy. H/O colonoscopy (2007). H/O colonoscopy (04/14/18). dr geller, sigmoid diverticulosis, repeat 10 years. History of esophagogastroduodenoscopy (EGD) (09/2017). History of hydrocelectomy. History of right inguinal hernia repair. repair times two. sugrical flap of unhealing wound PREVIOUS FUNCTIONAL STATUS/SOCIAL/FAMILY SUPPORTS:: Ilia resides in [facility] with his roomate, Lyudmila. He has a cat. Ilia shares that he had a daughter, however she not to long ago. He uses a cane and is followed in the by Palliative in the community for his chronic health issues. Ilia uses [facility] for transportation. CURRENT FUNCTIONAL STATUS:: Ilia was sitting up in his chair when CM met with him. He stated that he is having a lot of pain, and is very tired. CM discussed discharge options post surgically, including returning home with home health services vs going to a SNF for short term rehab. CM asked about his previous experience at [facility], and he stated that he liked it there, and would be agreeable to return. Ilia will work with PT to determine his functional mobility, and his discharge plan. CM will continue to follow. ADVANCE DIRECTIVES:: On file, Chrissy Stewart listed as agent. Has patient been provided with info about the portal/API?: Yes Did the patient sign up for the portal?: No CODE STATUS:: Full Code INSURANCE COVERAGE / FINANCIAL ISSUES:: [facility] CURRENT HOME/COMMUNITY SERVICES/EQUIPMENT:: Palliative care. [facility]. cane. lives with roomtenzin Coreas. PRIMARY CARE PHYSICIAN:: Silvina Perdue POTENTIAL DISCHARGE NEEDS:: Evaluations for further needs, follow up appointments. PATIENT/FAMILY EDUCATION NEEDS:: Review discharge instructions and limitations, discussion of self care needs including ask me three. ANTICIPATED BARRIERS TO DISCHARGE:: None identified at this time. TRANSPORTATION:: Via [facility] private vehicle. PLAN:: Ilia went to the OR yesterday for a fx repair. He will be evaluated by PT to determine his level of functioning. He will return home with HH services vs SNF for short term rehab, if indicated. He will follow up with his PCP and discharge plan of care. CM will continue to follow.
--- NOTE | 2022-08-29 12:22 | W.PM.PROGNOT ---
Date of Service Date of service: 08/29/22 Time of Service: 11:40 Assessment and Plan Assessment and plan (1) Closed intertrochanteric fracture of left femur: Status: Acute Assessment and plan: Ilia is postop day #2 status post intramedullary nail fixation of his left femur fracture. He is more confused today and does have some persistent hypotension which is somewhat his baseline. He has been able to get up to a chair. He is weightbearing as tolerated. Anticoagulation may start. He will complete 3 doses of postoperative antibiotics. Subjective Subjective Interval history since last seen: Ilia is doing well. He seems to be more confused and has had some continued hypotension although he doesn't report any symptoms of lightheadedness. He reports pain of the left leg but doesn't realize he got up out of the bed to the chair earlier. No chest pain or SOB. Exam Narrative Exam Narrative: Sitting up in the chair. Alert to person. Unaware of details of current location or situation but is redirected and answers approrpriately. LLE dressing c/d/i. +SILT DP/SP/Tib, +DP/PT Objective Last Vital Signs Temp 37.6 C H 08/29/22 07:30 Pulse 97 H 08/29/22 07:30 Resp 18 08/29/22 07:30 BP 98/63 L 08/29/22 07:30 Pulse Ox 86 L 08/29/22 11:51 Laboratory Results - last 24 hr 08/29/22 08/29/22 05:42 05:42 WBC 9.66 RBC 3.73 L Hgb 11.3 L D Hct 35.9 L MCV 96 H MCH 30.3 MCHC 31.5 L RDW 14.6 H Plt Count 201 MPV 10.5 Immature Gran % 0.3 Neutrophils % 79.6 Lymphocytes % 8.2 Monocytes % 9.7 Eosinophils % 1.9 Basophils % 0.3 Nucleated RBC % 0.0 Absolute Neutrophils 7.69 H Absolute Lymphocytes 0.79 L Absolute Monocytes 0.94 H Absolute Eosinophils 0.18 Absolute Basophils 0.03 Sodium 140 Potassium 4.8 Chloride 109 H Carbon Dioxide 24.5 Anion Gap 6.5 BUN 33 H Creatinine 1.2 Est GFR (CKD-EPI 2020) 64.25 Glucose 74 Calcium 8.5 Time Spent with Patient Time Spent with Patient: <25 minutes Time was spent: obtaining and/or reviewing separately [facility] and care coordination
[2022-08-29] MEDS: Metoprolol 25 MG TAB PO (12:45)
--- NOTE | 2022-08-29 13:42 | W.PM.PROGNOT ---
Date of Service Date of service: 08/29/22 Time of Service: 13:42 Assessment and Plan Assessment and plan (1) Closed intertrochanteric fracture of left femur: Status: Acute Assessment and plan: Secondary to ground level fall. Legs gave out. No LOC s/p repair on 08/28. Added prn fentanyl IV. Has lortab prn as well. PT. (2) Alcoholism in remission: Status: Acute Assessment and plan: Low BMI likely secondary to previous chronic alcohol abuse disorder. (3) CAD (coronary artery disease): Status: Chronic Assessment and plan: Not on aspirin. Cont BB when BP allows. (4) Diastolic heart failure: Status: Acute Assessment and plan: Judicious use of any IV fluids. Presented with mild dehydration. Post-op he was hypotensive. Given several IV NS boluses. Placed on continuous fluids overnight; now stopped. Encourage po intake. BP improved. (5) Chronic obstructive lung disease: Status: Chronic Assessment and plan: Cont Stiolto. PRN albuterol. Stable w/o exacerbation. (6) Discharge planning issues: Status: Acute Assessment and plan: Full code. Has been seen by palliative; last November. Likely will require SNF. (7) Afib: Assessment and plan: On metoprolol for rate control. Not on AC. Subjective Subjective Patient reports: still having pain, tolerating liquids well and afebrile; denies nausea, vomiting or shortness of breath Exam Narrative Exam Narrative: Lying in bed. Asleep. Wakens to voice. Const General: no acute distress HENMT Head: normal to inspection Mouth: moist mucous membranes Eyes General: appearance normal, both eyes and all related structures Sclera: sclerae normal Neck Neck: normal visual inspection Resp Effort & Inspection: cough Quality of cough: wet and not tachypneic Auscultation: clear to auscultation bilaterally Cardio Jugular venous pressure: no JVD Rate: tachycardic (90's) Rhythm: abnormal rhythm irregularly irregular Heart Sounds: no murmurs GI Inspection: non-distended Palpation: nontender Skin General skin exam: no rashes or lesions noted Neuro General: patient alert, patient oriented x3 and no focal motor deficits Cranial Nerves: facial strength normal Extrem General: capillary refill normal Left lower extremity: hip/thigh (Ext rotation and shortened. Flexed slightly. ) Psych Mental Status: mental status grossly normal Affect: blunted Objective Last Vital Signs Temp 37.6 C H 08/29/22 07:30 Pulse 97 H 08/29/22 07:30 Resp 18 08/29/22 07:30 BP 98/63 L 08/29/22 07:30 Pulse Ox 86 L 08/29/22 11:51 Laboratory Results - last 24 hr 08/29/22 08/29/22 05:42 05:42 WBC 9.66 RBC 3.73 L Hgb 11.3 L D Hct 35.9 L MCV 96 H MCH 30.3 MCHC 31.5 L RDW 14.6 H Plt Count 201 MPV 10.5 Immature Gran % 0.3 Neutrophils % 79.6 Lymphocytes % 8.2 Monocytes % 9.7 Eosinophils % 1.9 Basophils % 0.3 Nucleated RBC % 0.0 Absolute Neutrophils 7.69 H Absolute Lymphocytes 0.79 L Absolute Monocytes 0.94 H Absolute Eosinophils 0.18 Absolute Basophils 0.03 Sodium 140 Potassium 4.8 Chloride 109 H Carbon Dioxide 24.5 Anion Gap 6.5 BUN 33 H Creatinine 1.2 Est GFR (CKD-EPI 2020) 64.25 Glucose 74 Calcium 8.5 Time Spent with Patient Time Spent with Patient: 25-34 minutes Time was spent: preparing to see the patient(eg.review tests), ordering medications,tests, procedures, referring, communicating with other health intensive care ambulance paramedic and indepentently interpreting results
[2022-08-29] MEDS: Normal Saline 250 ML IV (15:30)
[2022-08-29] MEDS: Enoxaparin 40 MG/0.4 ML SYR SC (20:16)
--- NOTE | 2022-08-29 22:22 | IN_ITS ---
Date of service: 08/29/22 Time of Service: 10:00 PT Notes Visit Reasons: L Intratrochanter Femoral Fracture Physical Therapy Inpatient Initial Evaluation Date: 08/29/2022 Referring Doctor: Gordy Chávez MD PT Orders: PT CONSULT: S/p Ortho surgery. S/P IMN fixation of left hip fracture. WBAT. Precautions: Fall. Standard. WBAT on left LE with AD. Patient Profile/Admitting Diagnosis: Ilia is a 72-year-old male with complex co-morbid conditions as listed below. He presented to the ED on 08/28/2022 due to a fall at home which caused him to strike his left side.? Patient sustained a left intertrochanteric fracture and status post ORIF with IMN on postoperative day 1. PMHX: All Active Problems?(Updated 08/29/22 @ 13:36 by Mio Navarro MD) Diastolic heart failure (Acute) Closed intertrochanteric fracture of left femur (Acute) Overdose (Acute) Aspiration pneumonitis (Acute) Fall (Acute) Blunt head trauma (Acute) Contusion of elbow, left (Acute) Contusion of left leg (Acute) Closed fracture of left hip (Acute) Mild cognitive impairment (Acute) Advanced care planning/counseling discussion (Acute) Literacy level of illiterate (Acute) Palliative care encounter (Acute) Discharge planning issues (Acute) DVT prophylaxis (Acute) Acute exacerbation of chronic obstructive pulmonary disease (COPD) (Acute) Acute on chronic right-sided congestive heart failure (Acute) Pneumonia (Acute) Hypoxia (Acute) Depression (Chronic) Dental abscess (Acute) 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) Abnormal chest CT (Acute) Full code status (Acute) Urinary tract infection (Acute) 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 Abdominal pain Abnormal radiologic findings on diagnostic imaging of renal pelvis, ureter, or bladder Acute on chronic anemia Acute on chronic diastolic (congestive) heart failure Acute on chronic systolic CHF (congestive heart failure) Adenocarcinoma of esophagus From [facility]:Hx GI Cancer...EGD 04/2021 with friable mucosa. SDOne at that time because of GI blooed Afib Alcohol abuse Alcohol abuse, continuous drinking behavior Anemia Bilateral lower extremity edema CAD (coronary artery disease) of artery bypass graft Cerumen impaction CHF, acute on chronic Confusion state COVID-19 COVID-19 Diabetes mellitus Difficulty reading Edema Encounter for colorectal cancer screening Epididymitis, right (08/02/16) Essential hypertension Failure to thrive Fall GERD (gastroesophageal reflux disease) GI bleed GI bleeding H/O malignant neoplasm of stomach Heart failure, left, with LVEF 41-49% History of GI bleed Hoarseness Hydrocele, right (01/23/16) Hyperlipidemia Hypophosphatemia Kyphoscoliosis Low back pain Malnutrition Mild bibasilar atelectasis Pancreatitis Poor hygiene Prediabetes Protein malnutrition Pulmonary hypertension Recent weight loss Rib fractures Shortness of breath Solitary pulmonary nodule Tinnitus, left Tobacco abuse Weight loss Surgical History? Cardiac cath Coronary Artery Bypass Gaft (CABG) EGD - IV Sedation Esophagectomy H/O colonoscopy (2007) H/O colonoscopy (04/14/18) Dr geller, sigmoid diverticulosis, repeat 10 years History of esophagogastroduodenoscopy (EGD) (09/2017) History of hydrocelectomy History of right inguinal hernia repair repair times two Sugrical flap of unhealing wound Social History/Home Situation: Lives with a roommate in a private home with 4 steps to enter.? Uses single- point cane at baseline.? Uses Meals on Wheels.? Does not drive. Equipment Owned/DME: , [employer] Subjective: Reports 7/10 pain in L hip and thigh. Complains of fatigue and lack of sleep. Agreed to get out of bed and to sit on bedside chair. Fearful of falling. Objective: General Observation: Cachectic.? IV in the left UE.?Telemetry monitoring in place. Anxious about moving due to pain. Fearful of falling. Mental Status: Somewhat lethargic, oriented as to person and place. Able to pay attention, has difficulty with focus, and responds woth delay requiring maximal cueing. Pain: 7/10 pain in the L hip and thigh aggravated by movement and weight bearing ROM: Right Upper Extremity: ? Shoulder Flexion WFL. Shoulder abduction WFL. Elbow flexion WFL. Wrist flexion WFL. Functional opening and closing of hand WFL. Left Upper Extremity:? Shoulder Flexion WFL. Shoulder abduction WFL. Elbow flexion WFL. Wrist flexion WFL. Functional opening and closing of hand WFL. Right Lower Extremity: Hip flexion WFL. Hip abduction WFL. Knee flexion WFL. Ankle dorsiflexion WFL. Ankle plantarflexion WFL. Left Lower Extremity: Highly favoring L LE. Did not want limb touched eventhough he needed the assistance. Strength: Right Upper Extremity: Shoulder flexors 3+/5. Shoulder abductors 3+/5. Elbow flexors 3+/5. Elbow extensors 3+/5. Variety Performer strong. Left Upper Extremity: Shoulder flexors 3+/5. Shoulder abductors 3+/5. Elbow flexors 3+/5. Elbow extensors 3+/5. Variety Performer strong. Right Lower Extremity: Hip flexors 3+/5. Hip abductors 3+/5. Knee flexors 3+/5. Knee extensors 3+/5. Ankle dorsiflexors 3+/5. Ankle plantarflexors 3+/5. Left Lower Extremity: NT Bed Mobility/Transfers: Sit to stand with moderate assist Stand to sit with moderate assist Bed to reclining chair moderate assist Gait: 3 steps to transfer to bedside chair leading with the R leg using FWW with moderate to maximal assist for safety. Needed maximal cueing for weight shifting, turning, and backing up. Balance: Static Sitting: Fair Dynamic Sitting: Fair Static Standing: Poor Dynamic Standing: Poor Special Tests: Mobility Limitations Standardized Measure [facility] 6 clicks Basic Mobility Inpatient Short Form: Raw Score: 12 ? CMS Score: 69% deficit? ? ? Informed Consent/Education:? Patient was instructed in purpose of PT consult and plan of care and is agreeable to proceed with established PT POC to achieve personal goals. Assessment: Ilia is a 72-year-old male with complex co-morbid conditions as listed above. He presented to the ED on 08/28/2022 due to a fall at home which caused him to strike his left side.? Patient sustained a left intertrochanteric fracture and is status post ORIF with IMN on postoperative day 1. Pain limits mobility performance, needs pre-medication. Anxious and fearful of falling, requires assist of 2 for transfers. Significant functional mobility decline may require SNF placement. Patient presents with clinical signs and symptoms consistent with current/admitting diagnoses that have resulted to mobility limitations, gait instability, generalized weakness, and overall ADL decline as demonstrated by the following impairment level findings: 1.? Decreased strength to B UE/LE major muscle groups 2.? Impaired standing balance 3.? Impaired activity tolerance Impairments are contributing to the following functional limitations: 1.? Decline in bed mobility skills 2.? Decline in transfer skills 3.? Difficulty with ambulation without assistive device and physical assistance 4.? Increased completion time for mobility ADL performance 5.? Increased risk for falls 6.? Difficulty with managing steps alone safely Patient is assessed as a 61098 moderate? complexity based on the following: History: 71-year-old male with past medical history as indicated above Examination: Demonstrable impairment in strength, balance, and mobility level with underlying impairments and functional limitations as exhibited above as well as deficit score of 69% utilizing the [facility] Mobility Inpatient Short Form Presentation: Evolving Decision Makin moderate complexity Goals: Goals X1 week 1. Supine-Sit independent 2. Sit-Supine independent 3. Sit-Stand independent 4. Stand-Sit independent with FWW 5. Bed-Chair independent with FWW 6. Chair-Bed independent with FWW 7. Independent gait on level surface with use of FWW for at least 300 feet without report of pain nor dyspnea 8. Independent stair negotiation while holding onto 1rail for at least 5 steps without report of pain nor dyspnea 9. Independent with home exercise program 10. Good static and dynamic standing balance/tolerance Plan of Care/Treatment Plan: 1-2x/day, 7 days/week x 1 week. Plan of care has been reviewed with the ICT SALES REPRESENTATIVE providing the service under Physical Therapy direction. Initiate Physical Therapy intervention for pain management as needed, strengthening, bed mobility, transfers, gait, stairs, balance training, and use of assistive device. DISCHARGE RECOMMENDATIONS: Patient will benefit from shelter facility placement for continued skilled physical therapy services in order to progress mobility level, strength, and balance in preparation for a safe discharge to home. TREATMENT CODE/TIME: 92880 x 20 minutes, 28083 x 23 minutes at 10:00 AM. Thank you for the opportunity to participate in the care of this patient. Savanna Banks PT, DPT, CLT [facility], [place]
[2022-08-29] MEDS: Mirtazapine 15 MG TAB 7.5 MG PO (23:08)
[2022-08-29] MEDS: Atorvastatin 10 MG TAB PO (23:08)
[2022-08-29] MEDS: Tamsulosin 0.4 MG CAPCR PO (23:08)
[2022-08-30] VITALS (13 sets, daily range): BP systolic 97–132; BP diastolic 63–78; PULSE 91–112; RESP 14–90; TEMP 36.3–37.5; O2SAT 78–94
[2022-08-30] MEDS: Tiotropium/Olodaterol 10 PUFF INHALER 2 PUFF IH (09:13)
[2022-08-30] MEDS: Gabapentin 300 MG CAP PO ×2 (09:29→14:51)
[2022-08-30] MEDS: HYDROcodone 10/Acetaminophen 325 TAB PO ×2 (09:29→14:50)
[2022-08-30] MEDS: Cholecalciferol (Vitamin D3) 1,000 UNIT TAB 2000 UNITS PO (09:29)
[2022-08-30] MEDS: Pantoprazole 40 MG TABCR PO (09:29)
[2022-08-30] MEDS: Metoprolol 25 MG TAB 12.5 MG PO (09:55)
--- NOTE | 2022-08-30 09:57 | CMPROGNOTE_ITS ---
- If Service Date Differs Date of service: 08/30/22 Time of Service: 09:57 Care Management Progress Note S/O: Ilia is POD #3 left femur fracture fixation and not medically ready for discharge. A palliative consult is ordered, and nutrition in consulted. Ilia is lying in bed when CM met with him. He appears to be sleeping and does not engage in conversation. PT recommends SNF for STR when medically ready for discharge. SNF referral's will be sent after pt gives consent and has a 3 night qualifying stay. A: 72 year old male admitted to [facility] on 08/28/22 for L Intraochanter Femoral Fracture P: Ilia went to the OR 08/28/22 for a femur fx repair. PT recommends SNF for short term rehab. Palliative Care is consulted, to discuss goals of care and recovery. He will follow up with his PCP and discharge plan of care. CM will continue to follow.
--- NOTE | 2022-08-30 11:22 | W.NUTCONSULT ---
Date of service: 08/30/22 Time of Service: 11:22 Nutritional Consult ASSESSMENT: Ilia was admitted with left femur fracture, s/p repair with long hx of ETOH abuse, COPD, esphageal/gastric malignancy and malnutrition with BMI of 16. Appears to be at baseline weight. Following regular meal plan with ensure TID with excellent intake. At high risk in view of low weight and at risk for skin breakdown. NUTRITIONAL DIAGNOSIS: chronic malnutrition in acute/chronic illness in view of BMI and appearence INTERVENTION: Continue regular meal plan, supplemented with ensure shakes MONITORING AND EVALUATION: weight, po intake, labs Time Spent in Nutritional Counseling and Treatment: 0
--- NOTE | 2022-08-30 14:31 | PT.INTREAT ---
Date of service: 08/30/22 Time of Service: 11:25 PT Notes Visit Reasons: L Intratrochanter Femoral Fracture Inpatient Physical Therapy Treatment Note [facility] Date: 08/30/2022 PRECAUTIONS: Fall, activity as tolerated, WBAT L SUBJECTIVE: Ilia is agreeable to participating in PT. He reports that he is having significant pain in L hip area with all movement. He agrees that he would benefit from ST rehab placement prior to returning to home. OBJECTIVE: PAIN: Patient c/o pain in L hip with all movement BED MOBILITY/TRANSFERS Rolling L/R: CGA Supine-sit: Mod A x2 with HOB at 40 degrees Sit-supine: Min A x2 with HOB at 20 degrees Sit-stand: CGA x2 Stand-sit: Mod A x2 with cueing for safety Bed-Chair: Min A x2 - Mod A x2 Chair-bed: Min A x2 - Mod A x2 GAIT Assistive Device: FWW Weight bearing: WBAT L Assist: Min A x2 - Mod A x2 Distance: 4 steps in both a.m. and p.m. Deviation: Slow pacing, shuffling gait, cueing for posture THEREX: Patient was instructed in a LE strengthening program, completed in a supine position, to include: ankle pumps, quad sets, heels slides, SLR and hip abduction. He requires assist for all exercises due to weakness. TOILETING: Patient toileted with assist due to incontinence. ASSESSMENT: Patient tolerated session with c/o severe L hip pain with all movement. He was able to complete transfer utilizing FWW and Min A x2 - Mod A x2, however, requires cueing for safety. PLAN: Continue with global strengthening and general conditioning for improved activity tolerance and mobility. Recommend discharge to SNF-level rehab due to current functional mobility limitations. TREATMENT CODE/TIME: Session 1: 35 minutes; 07403, 75093 (11:25) Session 2: 26 minutes; 73094 x2 (13:05)
--- NOTE | 2022-08-30 16:49 | W.PM.PROGNOT ---
Date of Service Date of service: 08/30/22 Time of Service: 16:50 Assessment and Plan Assessment and plan (1) Closed intertrochanteric fracture of left femur: Status: Acute Assessment and plan: Secondary to ground level fall. Legs gave out. No LOC s/p repair on 08/28. Cont prn fentanyl IV. Has lortab prn as well. Not motivated to work with PT; cont to encourage. (2) Alcoholism in remission: Status: Acute Assessment and plan: Low BMI likely secondary to previous chronic alcohol abuse disorder. (3) CAD (coronary artery disease): Status: Chronic Assessment and plan: Not on aspirin. Now on metoprolol at half the strength he was previously on. BP improved. (4) Diastolic heart failure: Status: Acute Assessment and plan: Judicious use of any IV fluids. Presented with mild dehydration. Post-op he was hypotensive. Given several IV NS boluses. Placed on continuous fluids overnight; then stopped. Encourage po intake. BP improved. (5) Chronic obstructive lung disease: Status: Chronic Assessment and plan: Cont Stiolto. PRN albuterol. Stable w/o exacerbation. (6) Discharge planning issues: Status: Acute Assessment and plan: Full code. Has been seen by palliative; last November. Likely will require SNF. (7) Afib: Assessment and plan: On metoprolol for rate control. Not on AC. Subjective Subjective Patient reports: no new complaints, tolerating a regular diet and afebrile; denies diarrhea, nausea or vomiting Exam Narrative Exam Narrative: Lying in bed. Asleep. Doesn't waken when nasal cannula reposition. Later is awake but is not very interactive or conversant. Const General: no acute distress HENMT Head: normal to inspection Mouth: moist mucous membranes Eyes General: appearance normal, both eyes and all related structures Sclera: sclerae normal Neck Neck: normal visual inspection Resp Effort & Inspection: cough Quality of cough: wet and not tachypneic Auscultation: clear to auscultation bilaterally Cardio Jugular venous pressure: no JVD Rate: tachycardic (90's) Rhythm: abnormal rhythm irregularly irregular Heart Sounds: no murmurs GI Inspection: non-distended Palpation: nontender Skin General skin exam: no rashes or lesions noted Neuro General: patient alert, patient oriented x3 and no focal motor deficits Cranial Nerves: facial strength normal Extrem General: capillary refill normal Left lower extremity: hip/thigh (Ext rotation and shortened. Flexed slightly. ) Psych Mental Status: mental status grossly normal Affect: blunted Objective Last Vital Signs Temp 36.3 C L 08/30/22 07:49 Pulse 93 H 08/30/22 15:05 Resp 18 08/30/22 07:49 BP 100/68 08/30/22 07:49 Pulse Ox 92 08/30/22 07:49 Time Spent with Patient Time Spent with Patient: <25 minutes Time was spent: preparing to see the patient(eg.review tests), ordering medications,tests, procedures, referring, communicating with other health customer care assistant and indepentently interpreting results
--- NOTE | 2022-08-30 21:16 | W.PM.PROGNOT ---
Date of Service Date of service: 08/30/22 Time of Service: 12:30 Assessment and Plan Assessment and plan (1) Closed intertrochanteric fracture of left femur: Status: Acute Assessment and plan: Ilia is POD#2 s/p IMN of a left intertrochanteric hip fracture. Unfortunately, he has been quite apathetic to any interventions. He has not desired any food and is not willing to work with PT or nursing and has been demosntrative about this. I talked with Ilia about his hip fracture and he did not want to discuss in much detail. However, I do expect things to get better. I tried to demonstrae how he can sit in te bed and I can move the leg with much less pain than just 2 days ago. He is more confused then when I first saw him. At this point, a palliative care consult would be warranted especially since he has been connected with them in the past. He has many other comorbidities and is quite frail. We should still work on mobilization daily unless he flatly refuses. He is WBAT wtih assistive devices. Anticoagulation per medicine team. I will increase the frequency of the Hydrocodone as this is the only pain medication he is willing to take. Subjective Subjective Interval history since last seen: Ilia reports having pain in the leg. He denies having pain at rest but pain with movement. He is not hungry although a full tray is still at the bedside. He denies chest pain or SOB. Nursing reports that he has been out of the bed but he was verbally and physically resisting any attempt at movement or mobilization. He has had some hypotension which has been asymptomatic and has improved. Exam Extrem Other: LLE without significant ecchymosis or swelling. Dressings c/d/i. Gentle flexion and IR/ER does not cause any significnat increase in pain. He refuses active motion of the hip or knee. He does have intact ADF/APF/EHL/FHL. Objective Last Vital Signs Temp 37.1 C 08/30/22 15:20 Pulse 104 H 08/30/22 15:20 Resp 20 08/30/22 15:20 BP 98/64 L 08/30/22 15:20 Pulse Ox 93 08/30/22 16:58 Time Spent with Patient Time Spent with Patient: 25-34 minutes Time was spent: obtaining and/or reviewing separately otained hiistory, ordering medications,tests, procedures, referring, communicating with other health technical healthcare consultant and counseling the patient
[2022-08-30] MEDS: Atorvastatin 10 MG TAB PO (21:34)
[2022-08-30] MEDS: Enoxaparin 40 MG/0.4 ML SYR SC (22:00)
[2022-08-30] MEDS: Albuterol 2.5 MG/3 ML INH SOLN VIAL UPD (22:10)
[2022-08-31] VITALS (11 sets, daily range): BP systolic 84–108; BP diastolic 58–67; PULSE 79–116; RESP 16–18; TEMP 36.7–36.9; O2SAT 89–98
[2022-08-31 06:48] LABS: HCT 33.5 % (40.0-50.0); HGB 10.7 g/dL (13.5-17.5); MCH 30.6 pg (27.0-33.0); MCHC 31.9 % (32.0-36.0); MCV 96 fL (80-95); MPV 10.1 fL (8.0-11.0); Platelet Count 241 10^3/uL (130-400); RDW 15.2 % (11.8-14.1); RDW-SD 52.1 fL; WBC 10.06 10^3/uL (4.4-10.8)
[2022-08-31 07:01] LABS: Anion Gap 9.6 mmol/L (3-11); BUN 39 mg/dL (7-18); CO2 22.4 mmol/L (21.0-32.0); CREATININE 1.2 mg/dL (0.70-1.30); Calcium 9.2 mg/dL (8.5-10.1); Chloride 112 mmol/L (98-107); Estimated GFR 64.25 (mL/min/1.73m2); Glucose 98 mg/dL (74-106); Potassium 4.9 mmol/L (3.5-5.1); Sodium 144 mmol/L (136-145)
[2022-08-31] MEDS: Tiotropium/Olodaterol 10 PUFF INHALER 2 PUFF IH (08:18)
--- NOTE | 2022-08-31 08:30 | PDOC.CMPRO ---
- If Service Date Differs Date of service: 08/31/22 Time of Service: 08:30 Care Management Progress Note S/O: Ilia lying in bed when CM met with him. He is awake and now engaging in conversation, minimally. He is s/p left femur fracture fixation. PT recommends SNF for STR when medically ready for discharge. Pt agrees to SNF for STR. CM will send referrals. A: 72 year old male admitted to [facility] on 08/28/22 for L Intraochanter Femoral Fracture P: Ilia went to the OR 08/28/22 for a femur fx repair. PT recommends SNF for short term rehab. Palliative Care is consulted, to discuss goals of care and recovery. He will follow up with his PCP and discharge plan of care. CM will continue to follow.
[2022-08-31] MEDS: Gabapentin 300 MG CAP PO ×3 (08:49→21:23)
[2022-08-31] MEDS: Acetaminophen 500 MG TAB PO ×3 (08:49→21:23)
[2022-08-31] MEDS: Cholecalciferol (Vitamin D3) 1,000 UNIT TAB 2000 UNITS PO (08:49)
[2022-08-31] MEDS: HYDROcodone 10/Acetaminophen 325 TAB PO (08:49)
[2022-08-31] MEDS: Pantoprazole 40 MG TABCR PO ×2 (08:50→21:23)
[2022-08-31] MEDS: Metoprolol 25 MG TAB PO (08:50)
--- NOTE | 2022-08-31 12:10 | PT.INTREAT ---
Date of service: 08/31/22 Time of Service: 09:55 PT Notes Visit Reasons: L Intratrochanter Femoral Fracture Inpatient Physical Therapy Treatment Note [facility] Date: 09/01/2022 PRECAUTIONS: Fall, activity as tolerated, WBAT L SUBJECTIVE: Ilia is agreeable to participating in PT. He reports that he is having significant pain about the L hip area with all movement. OBJECTIVE: In p.m., hold OOB activities per nursing request due to recent hypotension. PAIN: Patient c/o pain in L hip with all movement BED MOBILITY/TRANSFERS Sit-supine: Min A with HOB flat (requires encouragement to attempt) Sit-stand: Min A Stand-sit: Mod A x2 with cueing for safety Chair-bed: Min A x2 GAIT Assistive Device: FWW Weight bearing: WBAT L Assist: Min A x2 Distance: 4 steps Deviation: Slow pacing, shuffling gait, cueing for posture, cueing for safety THEREX: Due to fatigue, weakness and pain, instructed/completed AAROM to B LE while in a supine position, to include: ankle pumps, heel slides, SLR and hip abduction, x10 reps each. Also perform passive stretching to L LE into knee extension due to tightness and inability to achieve full ROM with L knee. In p.m., completed PROM to patient's B LE due to inability to remain awake. With patient in long-sitting position, range him into dorsi/plantar flexion, hip and knee flexion, hip abduction, and SLR. ASSESSMENT: Patient tolerated session with c/o severe L hip pain with all movement. He was able to complete transfer utilizing FWW and Min A x2, however, requires cueing for safety. PLAN: Continue with global strengthening and general conditioning for improved activity tolerance and mobility. Recommend discharge to SNF-level rehab due to current functional mobility limitations. TREATMENT CODE/TIME: Session 1: 30 minutes; [id number], [id number] (09:55) Session 2: 15 minutes; 87570 (14:45)
--- NOTE | 2022-08-31 13:53 | W.PM.PROGNOT ---
Date of Service Date of service: 08/31/22 Time of Service: 14:00 Assessment and Plan Assessment and plan (1) Closed intertrochanteric fracture of left femur: Status: Acute Assessment and plan: Ilia is POD#3 s/p IMN of a left intertrochanteric hip fracture. When working with PT, complains of left hip pain and is very hesitant to bear wt. He is not using the available Lortab much. Schedule acetaminophen 500mg TID. . (2) Alcoholism in remission: Status: Acute Assessment and plan: Low BMI at least in part d/t this. (3) CAD (coronary artery disease): Status: Chronic Assessment and plan: Not on aspirin. Now on metoprolol at half the strength he was previously on. BP improved. (4) Diastolic heart failure: Status: Acute Assessment and plan: Judicious use of any IV fluids. Presented with mild dehydration. Has tolerated IV fluid boluses for soft BP. (5) Chronic obstructive lung disease: Status: Chronic Assessment and plan: Cont Stiolto. PRN albuterol. Stable w/o exacerbation. (6) Discharge planning issues: Status: Acute Assessment and plan: Full code. Has been seen by palliative; last November. Palliative to see. Likely will require SNF. (7) Afib: Assessment and plan: On metoprolol for rate control. Not on AC. Metoprolol has been adjusted d/t low BP; was decreased. Will now increase back to home dose. SCDs for VTE prophylaxis. Subjective Subjective Patient reports: no new complaints, still having pain (Hip/surgical hip), tolerating a regular diet (Poor intake), no bowel movement and afebrile; denies nausea or vomiting Exam Narrative Exam Narrative: Sitting in chair. Asleep. Const General: no acute distress [facility] Head: normal to inspection Mouth: moist mucous membranes Eyes General: appearance normal, both eyes and all related structures Sclera: sclerae normal Neck Neck: normal visual inspection Resp Effort & Inspection: cough Quality of cough: wet and not tachypneic Auscultation: clear to auscultation bilaterally Cardio Jugular venous pressure: no JVD Rate: tachycardic (90's) Rhythm: abnormal rhythm irregularly irregular Heart Sounds: no murmurs GI Inspection: non-distended Palpation: nontender Skin General skin exam: no rashes or lesions noted Neuro General: patient alert, patient oriented x3 and no focal motor deficits Cranial Nerves: facial strength normal Extrem Left lower extremity: hip/thigh (Surgical site with clean/dry bandage. ) Psych Mental Status: mental status grossly normal Affect: blunted Objective Last Vital Signs Temp 36.9 C 08/31/22 11:37 Pulse 99 H 08/31/22 11:37 Resp 17 08/31/22 11:37 BP 84/62 L 08/31/22 11:37 Pulse Ox 93 08/31/22 11:37 Laboratory Results - last 24 hr 08/31/22 08/31/22 06:02 06:02 WBC 10.06 RBC 3.50 L Hgb 10.7 L Hct 33.5 L MCV 96 H MCH 30.6 MCHC 31.9 L RDW 15.2 H Plt Count 241 MPV 10.1 Sodium 144 Potassium 4.9 Chloride 112 H Carbon Dioxide 22.4 Anion Gap 9.6 BUN 39 H Creatinine 1.2 Est GFR (CKD-EPI 2020) 64.25 Glucose 98 Calcium 9.2 Time Spent with Patient Time Spent with Patient: 25-34 minutes Time was spent: preparing to see the patient(eg.review tests), ordering medications,tests, procedures, referring, communicating with other health long term care social worker and indepentently interpreting results
[2022-08-31] MEDS: Senna TAB 1 TAB PO (14:33)
--- NOTE | 2022-08-31 20:03 | W.PALLCONSUL ---
Date of service: 08/31/22 Time of Service: 20:05 History of Present Illness Narrative: Mr. Kang is a 71-year-old gentleman with history of pulmonary disease (COPD, pulmonary fibrosis), intermittent urinary retention, coronary artery disease, history of EtOH, chronically underweight, ambulatory challenges of unclear etiology, recent history of hospital admission for pneumonia with sepsis who has been followed as both inpatient and outpatient by the palliative care team for supportive care and advance care planning. Patient fell at home 3 days ago when his legs gave out and he suffered a left intertrochanteric femur fracture, which was repaired 2 days ago. The palliative care team has been asked to meet with him to provide additional support, help with symptom management, and continue goals of care discussion. Unfortunately, the patient was quite somnolent today and unable to engage in conversation. Reportedly he was the same with case management and hospitalist earlier today. He is able to nod yes and no to a few questions and then falls back asleep. Reason for somnolence is unclear. Hospitalist reports that he had similar reaction during previous hospitalizations and then reverted back to his usual demeanor and affect, alert but somewhat quiet. Several issues were addressed today and will be addressed under assessment and plan section below: -Pain management -Advance care planning, and problem identified with recent healthcare agent change. -Long-term placement discussion. Care Team: Primary Care physician: Dr. Silvina Perdue, [facility] Pulmonology: Patient has seen Dr. Connolly as an inpatient. Previously saw her as an outpatient but has not seen her in over a year, scheduled to see her in the future. Social HX: Single, . Lives with housemate Lyudmila Bellamy in first-floor apartment in [facility] [place]. Lyudmila functions as his rn managed care, setting up his doctors appointments, trying to encourage him to use his medication. She also interacts with [employer] to make sure he is getting his services. She is only a friend and not a romantic partner. Patient has 1 daughter who from breast cancer. 2 grandchildren who live in [place] but he has no relationship. In the past this tells us he has no friends. He has a sister who lives in [place] and occasionally visits him. Smoking: Continues to smoke averages 1 pack/day EtOH: History of significant alcohol use. Sober for at least a year Current services: Was getting Me[employer] Whe[employer], transportation [facility]. Did have home health after last hospital discharge in July. Unclear what other services are available or if he has a case technician. Impression of currents health status: N/A What bothers you the most: N/A What worries you the most: N/A Function: Ambulation: Walks with cane. Occasional falls. ADLs: Independent of all ADLs iADLs: Unable to manage his own finances, he can prepare simple snacks. His housemate does the shopping and prepares most meals. He can help with some light chores. Rarely leaves the home. No one in the household has a car. Hearing: Appeared grossly intact in the past. Vision: No known issue. He has a severely reading disability and cannot read. Spiritual history: In the past reported he is not mu-ism. Palliative review of systems: Unable to obtain today as patient is somnolent. Advanced Care Planning: Advanced Directive: Patient has consistently stated that he wishes to have CPR and be intubated as needed. He wishes no limitations on his treatment. Health Care Agent: According to July 22, 2022 palliative care note, Ilia and Jeffery rocky up a new healthcare agent form and had it witnessed, stating that he wanted Lyudmila Neal (housemate) to be his primary healthcare agent. He would want his Sister Chrissy Stewart ([facility]) to be his secondary agent. Unfortunately, I do not find that this recently revised healthcare agent form is on file in the [facility] chart. His previous healthcare agent form stipulated that his sister Chrissy Stewart be his primary. See discussion under A/P below. COLST: None, patient desires full code Limitations: None Assessment and Plan Assessment and plan (1) Closed intertrochanteric fracture of left femur: Status: Acute Assessment and plan: Hospitalist expressed concern that patient was declining to take any opiates and likely was in significant pain. In the past I found patient to shut down when he is in pain. Since patient seem to be listening to me with his eyes closed. I urged him to avail himself of pain medicine, suggested to him taking a dose of opiate 30 minutes before physical therapy so he could participate more easily. He was also started on scheduled acetaminophen today. Palliative care team will address this with him at our next visit when he is more awake. (2) Chronic obstructive lung disease: Status: Chronic Assessment and plan: Interesting to note the patient easily stop smoking whenever he is admitted. In the past he has denied any withdrawal symptoms while in the hospital. We can consider opportunity for motivational interviewing about smoking cessation once he is awake. (3) Discharge planning issues: Status: Acute Assessment and plan: Last time I was spoke with patient during his for inpatient admission for pneumonia, he expressed dissatisfaction with his current living situation. In fact, he was looking forward to going to subacute rehab for a week. At that time we discussed the option of assisted living. He thought this would be a good situation for him in the future, but perhaps not now . Given his frequent falls, and now this last significant fall, he would probably be happier, healthier, and safer in a more supportive environment. The palliative care team and case management can discuss this with him again once he is awake and talkative. (4) Underweight: Status: Acute Assessment and plan: Patient has been chronically underweight for many years since gastric surgery to remove some sort of tumor. ?This has been a problem for years.? 2013 [facility] records shows weight 67 kg (in the past he he reported lifetime maximum weight 180 pounds).? ? Minimum weight in [facility] records is 40 kg.? Lyudmila reports that he lost considerable weight summer 2021 but had gained back to his baseline. (5) Palliative care patient: Status: Acute Assessment and plan: Advance care plannin.revised July 2022 healthcare agent form with change in [facility] is not on file. Patient unable to discuss today. -Palliative care team plans to review this with patient once he is awake and alert. If he still wishes to have Lyudmila be his primary healthcare agent with sister as secondary, we will redo healthcare form at that time. 2.patient has consistently wanted to remain full code and have no limitations on treatment. -Once patient is awake and alert, we will review this with him as well. PFSH All Active Problems (Updated 08/31/22 @ 20:23 by Savi Montez MD) Palliative care patient (Acute) Underweight (Acute) Diastolic heart failure (Acute) Closed intertrochanteric fracture of left femur (Acute) s/p IMN fixation (08/28/22) Overdose (Acute) Aspiration pneumonitis (Acute) Fall (Acute) Blunt head trauma (Acute) Contusion of elbow, left (Acute) Contusion of left leg (Acute) Closed fracture of left hip (Acute) Mild cognitive impairment (Acute) Advanced care planning/counseling discussion (Acute) Literacy level of illiterate (Acute) Palliative care encounter (Acute) Discharge planning issues (Acute) DVT prophylaxis (Acute) Acute exacerbation of chronic obstructive pulmonary disease (COPD) (Acute) Acute on chronic right-sided congestive heart failure (Acute) Pneumonia (Acute) Hypoxia (Acute) Depression (Chronic) Dental abscess (Acute) 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) Abnormal chest CT (Acute) Full code status (Acute) Urinary tract infection (Acute) 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) CAP (community acquired pneumonia) (Acute) Generalized weakness (Acute) Skin tear of left elbow without complication (Acute) Chronic obstructive lung disease (Chronic) Tricuspid regurgitation (Chronic) CAD (coronary artery disease) (Chronic) Hypertension (Chronic) Medical History Abdominal pain Abnormal radiologic findings on diagnostic imaging of renal pelvis, ureter, or bladder Acute on chronic anemia Acute on chronic diastolic (congestive) heart failure Acute on chronic systolic CHF (congestive heart failure) Adenocarcinoma of esophagus From [facility]:Hx GI Cancer...EGD 04/2021 with friable mucosa. SDOne at that time because of GI blooed Afib Alcohol abuse Alcohol abuse, continuous drinking behavior Anemia Bilateral lower extremity edema CAD (coronary artery disease) of artery bypass graft Cerumen impaction CHF, acute on chronic Confusion state COVID-19 COVID-19 Diabetes mellitus Difficulty reading Edema Encounter for colorectal cancer screening Epididymitis, right (08/02/16) Essential hypertension Failure to thrive Fall GERD (gastroesophageal reflux disease) GI bleed GI bleeding H/O malignant neoplasm of stomach Heart failure, left, with LVEF 41-49% History of GI bleed Hoarseness Hydrocele, right (01/23/16) Hyperlipidemia Hypophosphatemia Kyphoscoliosis Low back pain Malnutrition Mild bibasilar atelectasis Pancreatitis Poor hygiene Prediabetes Protein malnutrition Pulmonary hypertension Recent weight loss Rib fractures Shortness of breath Solitary pulmonary nodule Tinnitus, left Tobacco abuse Weight loss Surgical History cardiac cath Coronary Artery Bypass Gaft (CABG) EGD - IV Sedation Esophagectomy H/O colonoscopy (2007) H/O colonoscopy (04/14/18) dr geller, sigmoid diverticulosis, repeat 10 years History of esophagogastroduodenoscopy (EGD) (09/2017) History of hydrocelectomy History of right inguinal hernia repair repair times two sugrical flap of unhealing wound Family History Mother No problems noted. Father No problems noted. Social History Smoking/Tobacco Use Status: Current every day Tobacco Type: cigarettes Smoking packs per day: 1 Smoking cigarettes per day: 20.0 Years smoked: 50 Smoking pack-years: 50.00 Smoking risk assessment performed?: Yes Alcohol Intake: former Drug use: Never Substance use type: does not use What type of physical activity do you participate in: none Do you feel safe at home: Yes Do you feel safe in your relationship?: Yes Exam Narrative Exam Narrative: Thin elderly gentleman laying on his side in bed, cheeks slightly flushed, oxygen on at 2 L, no respiratory distress, eyes closed. Does not open his eyes to sound. Slightly shakes his head yes and no and answer to certain questions and then starts snoring. He does not appear to be in any pain. Results Last Vital Signs Temp 36.7 C 08/31/22 14:46 Pulse 83 08/31/22 15:41 Resp 17 08/31/22 14:46 BP 107/67 08/31/22 14:46 Pulse Ox 98 08/31/22 14:46 Labs 08/31/22 06:02 08/31/22 06:02 Labs: Laboratory Results - last 24 hr 08/31/22 08/31/22 06:02 06:02 WBC 10.06 RBC 3.50 L Hgb 10.7 L Hct 33.5 L MCV 96 H MCH 30.6 MCHC 31.9 L RDW 15.2 H Plt Count 241 MPV 10.1 Sodium 144 Potassium 4.9 Chloride 112 H Carbon Dioxide 22.4 Anion Gap 9.6 BUN 39 H Creatinine 1.2 Est GFR (CKD-EPI 2020) 64.25 Glucose 98 Calcium 9.2
[2022-08-31] MEDS: Atorvastatin 10 MG TAB PO (21:00)
[2022-08-31] MEDS: Polyethylene Glycol 3350 17 GM PACKET PO (21:15)
[2022-08-31] MEDS: Tamsulosin 0.4 MG CAPCR PO (21:23)
[2022-08-31] MEDS: Mirtazapine 15 MG TAB 7.5 MG PO (21:24)
[2022-08-31] MEDS: Enoxaparin 40 MG/0.4 ML SYR SC (21:24)
[2022-09-01] VITALS (9 sets, daily range): BP systolic 78–118; BP diastolic 52–77; PULSE 81–109; RESP 16–18; TEMP 36.5–37.8; O2SAT 89–98
--- NOTE | 2022-09-01 | DI.RAD_ITS ---
Exam(s) XR HIP LT AP LAT ONLY EXAM: XR HIP LT AP LAT ONLY CLINICAL HISTORY: s/p IMN fixation of L femur frx - evaluate postop. TECHNIQUE: 2D digital imaging was performed. Two images were obtained. AP and cross-table lateral v iews were obtained. COMPARISON: CR,XR XR PELVIS AP from 08/28/2022 CR,XR XR TIB/FIB LT from 08/28/2022 XA XR HIP LT IN OR from 08/28/2022 FINDINGS: BONES: There are stable post operative changes present. No new fracture or dislocation. JOINTS: The joint spaces are well maintained. SOFT TISSUE: Surgical clips are seen in the pelvis. Atherosclerosis is present. IMPRESSION: Stable postoperative changes. DATA REPOSITORY: RADIATION DOSE DELIVERED:
[2022-09-01 06:35] LABS: Anion Gap 7.6 mmol/L (3-11); BUN 42 mg/dL (7-18); CO2 26.4 mmol/L (21.0-32.0); CREATININE 1.1 mg/dL (0.70-1.30); Calcium 9.6 mg/dL (8.5-10.1); Chloride 111 mmol/L (98-107); Estimated GFR 71.32 (mL/min/1.73m2); Glucose 92 mg/dL (74-106); PHOSPHORUS 3.4 mg/dL (2.6-4.7); Potassium 4.6 mmol/L (3.5-5.1); Sodium 145 mmol/L (136-145)
--- NOTE | 2022-09-01 08:21 | OTIE_ITS ---
Occupational Therapy Notes Inpatient Occupational Therapy Evaluation Date: 09/01/22 Referring Doctor:Dr. Navarro OT Orders: Non Urgent Precautions: Fall, standard, full PATIENT PROFILE/ADMITTING DIAGNOSIS: Pt is a 72 year old male who was admitted through the ED for the dx of closed intertrochanteric fx of (L) femur, aspiration pneumonitis, fall, blunt head trauma, contusion of (L) elbow, contusion of (L) leg, mild cognitive impairment, hypomagnesemia, hypokalemia, acute respiratory failure with hypoxia, COPD, depression, dental abscess, al coholism in remission, UTI, generalized weakness. Past Medical History: All Active Problems?(Updated 08/29/22 @ 13:36 by Mio Navarro MD) Diastolic heart failure (Acute) Closed intertrochanteric fracture of left femur (Acute) Overdose (Acute) Aspiration pneumonitis (Acute) Fall (Acute) Blunt head trauma (Acute) Contusion of elbow, left (Acute) Contusion of left leg (Acute) Closed fracture of left hip (Acute) Mild cognitive impairment (Acute) Advanced care planning/counseling discussion (Acute) Literacy level of illiterate (Acute) Palliative care encounter (Acute) Discharge planning issues (Acute) DVT prophylaxis (Acute) Acute exacerbation of chronic obstructive pulmonary disease (COPD) (Acute) Acute on chronic right-sided congestive heart failure (Acute) Pneumonia (Acute) Hypoxia (Acute) Depression (Chronic) Dental abscess (Acute) 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) Abnormal chest CT (Acute) Full code status (Acute) Urinary tract infection (Acute) 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 Abdominal pain Abnormal radiologic findings on diagnostic imaging of renal pelvis, ureter, or bladder Acute on chronic anemia Acute on chronic diastolic (congestive) heart failure Acute on chronic systolic CHF (congestive heart failure) Adenocarcinoma of esophagus From [facility]:Hx GI Cancer...EGD 04/2021 with friable mucosa. SDOne at that time because of GI blooedAfib Alcohol abuse Alcohol abuse, continuous drinking behavior Anemia Bilateral lower extremity edema CAD (coronary artery disease) of artery bypass graft Cerumen impaction CHF, acute on chronic Confusion state COVID-19 COVID-19 Diabetes mellitus Difficulty reading Edema Encounter for colorectal cancer screening Epididymitis, right (08/02/16) Essential hypertension Failure to thrive Fall GERD (gastroesophageal reflux disease) GI bleed GI bleeding H/O malignant neoplasm of stomach Heart failure, left, with LVEF 41-49% History of GI bleed Hoarseness Hydrocele, right (01/23/16) Hyperlipidemia Hypophosphatemia Kyphoscoliosis Low back pain Malnutrition Mild bibasilar atelectasis Pancreatitis Poor hygiene Prediabetes Protein malnutrition Pulmonary hypertension Recent weight loss Rib fractures Shortness of breath Solitary pulmonary nodule Tinnitus, left Tobacco abuse Weight loss Surgical History? cardiac cath Coronary Artery Bypass Gaft (CABG) EGD - IV Sedation Esophagectomy H/O colonoscopy (2007) H/O colonoscopy (04/14/18) dr geller, sigmoid diverticulosis, repeat 10 yearsHistory of esophagogastroduodenoscopy (EGD) (09/2017) History of hydrocelectomy History of right inguinal hernia repair repair times twosugrical flap of unhealing wound Social History/Home Situation: Pt states that he lives in a private setting with services. He states that he is completely (I) with ADL/IADL routines. His current level of function does not indicate this at this time. SUBJECTIVE: Pt states that he is sore and not feeling well in terms of his pain. OBJECTIVE: General Observation: Pleasant, increased pain behaviors noted throughout Mental Status: A&Ox3 Pain: c/o pain in hip 10/10 and in elbow pt was going down for xray this morning. ROM: RUE AROM WFL L UE AROM WFL STRENGTH: RUE 2+/5 throughout LUE 3-/5 throughout FUNCTIONAL MOBILITY/ADLS: Transfers max (A) x2 Sit-Stand max (A) Stand-sit Max (A) Bed-Chair max (A) Chair-bed max (A) TOILETING (I) with urinal. EATING seated in chair with min (A) opening packaging. (I) with hand to mouth with good mobility. BALANCE: Static sitting Good Dynamic Sitting Good Static Standing Poor Dynamic Standing Poor SPECIAL TESTS: Daily Activity Limitations Standardized Measure [facility] AM -PAC ?6 clicks? Daily Activity Inpatient Short Form: Raw score: 12 Standardized score: 30.60 CMS score: 66.57% INFORMED CONSENT/EDUCATION: Pt instructed in purpose of OT Consult and plan of care. ASSESSMENT: Patient is a 72-year-old male referred to occupational therapy s [facility] with diagnosis of left intertrochanteric fracture and status post ORIF with IMN. Patient presents with clinical signs and symptoms consistent with dx, as demonstrated by the following impairment level findings/functional limitations: Impairments in ADL/IADL And leisure activities, decreased functional mobility required for ADL performance, decreased strength, decreased functional activity tolerance, decreased standing tolerance, impairments in (L) UE function. AMPAC score 12 Patient is assessed as a high 07857 complexity based on the following: History: see above Examination: see functional limitations as noted above Presentation: evolving Decision Making: AMPAC score 12 GOALS Goals x1 week 1. Transfers with mod (A) 2. Dressing seated (I) UE and mod (A) LE 3. Bathing seated with max (A) set up (I) UE and min (A) LE 4. Toileting on commode (I) 5. Eating (I) PLAN OF CARE/TREATMENT PLAN: 1x/day, 5 days/ week x 1week Initiate Occupational Therapy Services for bathing, dressing, grooming, toileting, eating, transfer training. DISCHARGE RECOMMENDATIONS OT recommends SNF when medically cleared per MD. TREATMENT TIME/MINUTES/CODES 93076, 25 minutes (08:00) [facility] [place], [place]
[2022-09-01] MEDS: Tiotropium/Olodaterol 10 PUFF INHALER 2 PUFF IH (09:02)
[2022-09-01] MEDS: Cholecalciferol (Vitamin D3) 1,000 UNIT TAB 2000 UNITS PO (09:12)
[2022-09-01] MEDS: Acetaminophen 500 MG TAB PO ×3 (09:12→21:06)
[2022-09-01] MEDS: Polyethylene Glycol 3350 17 GM PACKET PO ×2 (09:12→21:06)
[2022-09-01] MEDS: Pantoprazole 40 MG TABCR PO ×2 (09:12→21:05)
[2022-09-01] MEDS: HYDROcodone 10/Acetaminophen 325 TAB PO ×2 (09:12→15:45)
[2022-09-01] MEDS: Gabapentin 300 MG CAP PO ×3 (09:12→21:05)
[2022-09-01] MEDS: Metoprolol 25 MG TAB PO (09:13)
--- NOTE | 2022-09-01 10:40 | PDOC.CMPRO ---
- If Service Date Differs Date of service: 09/01/22 Time of Service: 10:40 Care Management Progress Note S/O: Ilia was sitting up in his chair when CM met with him. He is awake and engages in conversation, minimally. CM commented that its nice to see him talking again today and he looks like he's feeling a little better. He states that's what they tell me, but I sure don't feel like it. He did not share any further details. His TV was was on [place], and CM turned up the volume, per pt request. Ilia is s/p left femur fracture fixation. PT recommends SNF for STR and is offered a bed at [facility] tomorrow if medially ready. A: 72 year old male admitted to [facility] on 08/28/22 for L Intraochanter Femoral Fracture P: Ilia went to the OR 08/28/22 for a femur fx repair. PT recommends SNF for short term rehab. [facility] offered Ilia a bed. He will transport via [facility] W/C van. Palliative Care is consulted, to discuss goals of care and recovery. He will follow up with his PCP and discharge plan of care. CM will continue to follow.
[2022-09-01] MEDS: Midodrine 2.5 MG TAB PO ×3 (12:00→21:06)
--- NOTE | 2022-09-01 15:29 | W.PM.PROGNOT ---
Date of Service Date of service: 09/01/22 Time of Service: 15:29 Assessment and Plan Assessment and plan (1) Closed intertrochanteric fracture of left femur: Status: Acute Assessment and plan: Ilia is POD#4 s/p IMN of a left intertrochanteric hip fracture. When working with PT, complains of left hip pain and is very hesitant to bear wt. He is not using the available Lortab much. Schedule acetaminophen 500mg TID. (2) Alcoholism in remission: Status: Acute Assessment and plan: Low BMI at least in part d/t this. (3) CAD (coronary artery disease): Status: Chronic Assessment and plan: Not on aspirin. Now on metoprolol at half the strength he was previously on. BP improved. (4) Diastolic heart failure: Status: Acute Assessment and plan: Judicious use of any IV fluids. Presented with mild dehydration. Has tolerated IV fluid boluses for soft BP. Added midodrine to maintain BP; monitor. (5) Chronic obstructive lung disease: Status: Chronic Assessment and plan: Cont Stiolto. PRN albuterol. Stable w/o exacerbation. (6) Discharge planning issues: Status: Acute Assessment and plan: Full code. Has been seen by palliative; last November. Palliative to see. Likely will require SNF. (7) Afib: Assessment and plan: On metoprolol for rate control. Not on AC. Metoprolol has been adjusted d/t low BP; was decreased. Will now increase back to home dose. SCDs for VTE prophylaxis. Subjective Subjective Patient reports: no new complaints, tolerating a regular diet and afebrile; denies nausea or vomiting Interval history since last seen: More alert. Exam Narrative Exam Narrative: Sitting in chair. Eating breakfast. Const General: no acute distress HENMT Head: normal to inspection Mouth: moist mucous membranes Eyes General: appearance normal, both eyes and all related structures Sclera: sclerae normal Neck Neck: normal visual inspection Resp Effort & Inspection: not tachypneic Auscultation: clear to auscultation bilaterally Cardio Jugular venous pressure: no JVD Rate: tachycardic (90's) Rhythm: abnormal rhythm irregularly irregular Heart Sounds: no murmurs GI Inspection: non-distended Palpation: nontender Skin General skin exam: no rashes or lesions noted Neuro General: patient alert, patient oriented x3 and no focal motor deficits Cranial Nerves: facial strength normal Extrem Left lower extremity: hip/thigh (Surgical site with clean/dry bandage. ) Psych Mental Status: mental status grossly normal Affect: blunted Objective Last Vital Signs Temp 37.8 C H 09/01/22 14:22 Pulse 105 H 09/01/22 14:22 Resp 18 09/01/22 14:22 BP 87/62 L 09/01/22 14:22 Pulse Ox 89 L 09/01/22 14:22 Laboratory Results - last 24 hr 09/01/22 06:00 Sodium 145 Potassium 4.6 Chloride 111 H Carbon Dioxide 26.4 Anion Gap 7.6 BUN 42 H Creatinine 1.1 Est GFR (CKD-EPI 2020) 71.32 Glucose 92 Calcium 9.6 Phosphorus 3.4 Time Spent with Patient Time Spent with Patient: 25-34 minutes Time was spent: preparing to see the patient(eg.review tests), ordering medications,tests, procedures, referring, communicating with other health director of primary care and indepentently interpreting results
[2022-09-01] MEDS: IRON SUCROSE COMPLEX 200 MG in Normal Saline 100 ML 400 MG IVPB (17:38)
[2022-09-01] MEDS: Enoxaparin 40 MG/0.4 ML SYR SC (21:05)
[2022-09-01] MEDS: Mirtazapine 15 MG TAB 7.5 MG PO (21:05)
[2022-09-01] MEDS: Atorvastatin 10 MG TAB PO (21:06)
[2022-09-01] MEDS: guaiFENesin 600 MG TABCR PO (21:06)
[2022-09-01] MEDS: Tamsulosin 0.4 MG CAPCR PO (21:06)
[2022-09-02] VITALS (11 sets, daily range): BP systolic 94–107; BP diastolic 60–73; PULSE 62–108; RESP 16–19; TEMP 35.8–37.1; O2SAT 90–99
[2022-09-02] MEDS: HYDROcodone 10/Acetaminophen 325 TAB PO (05:55)
[2022-09-02 07:40] LABS: HCT 32.8 % (40.0-50.0); HGB 10.2 g/dL (13.5-17.5); MCH 29.9 pg (27.0-33.0); MCHC 31.1 % (32.0-36.0); MCV 96 fL (80-95); MPV 9.5 fL (8.0-11.0); Platelet Count 297 10^3/uL (130-400); RBC 3.41 10^6/uL (4.36-5.78); RDW 15.4 % (11.8-14.1); RDW-SD 53.6 fL; WBC 9.85 10^3/uL (4.4-10.8)
[2022-09-02 07:48] LABS: Anion Gap 8.6 mmol/L (3-11); BUN 39 mg/dL (7-18); CO2 25.4 mmol/L (21.0-32.0); CREATININE 0.9 mg/dL (0.70-1.30); Chloride 113 mmol/L (98-107); Estimated GFR 90.74 (mL/min/1.73m2); Glucose 94 mg/dL (74-106); Potassium 4.3 mmol/L (3.5-5.1); Sodium 147 mmol/L (136-145)
[2022-09-02] MEDS: Tiotropium/Olodaterol 10 PUFF INHALER 2 PUFF IH (07:51)
[2022-09-02] MEDS: Polyethylene Glycol 3350 17 GM PACKET PO ×3 (08:21→21:04)
[2022-09-02] MEDS: Cholecalciferol (Vitamin D3) 1,000 UNIT TAB 2000 UNITS PO (08:23)
[2022-09-02] MEDS: Metoprolol 25 MG TAB PO (08:25)
[2022-09-02] MEDS: Midodrine 2.5 MG TAB PO (08:26)
[2022-09-02] MEDS: Pantoprazole 40 MG TABCR PO ×2 (08:27→20:56)
[2022-09-02] MEDS: guaiFENesin 600 MG TABCR PO ×2 (08:27→11:46)
[2022-09-02] MEDS: Gabapentin 300 MG CAP PO ×3 (08:27→21:04)
[2022-09-02] MEDS: Acetaminophen 500 MG TAB PO (08:27)
--- NOTE | 2022-09-02 10:00 | DI.RAD_ITS ---
Exam(s) XR PORTABLE CHEST AP EXAM: XR PORTABLE CHEST AP CLINICAL HISTORY: hypoxemia TECHNIQUE: 2D digital imaging was performed. COMPARISON: CR XR PORTABLE CHEST AP from 05/19/2022 CR,XR XR PORTABLE CHEST AP from 08/08/2022 CR,XR XR CHEST 1V IN DI DEPT from 08/28/2022 FINDINGS: Exam limited by patient's head overlying upper lobes. Underlying emphysematous changes and scarring noted. Increased densities again noted in the retrocardiac region. Question of increased densities at the right lung base, infiltrate versus atelectasis. IMPRESSION: Extremely limited exam. Question of basilar infiltrates versus atelectasis. DATA REPOSITORY: RADIATION DOSE DELIVERED:
--- NOTE | 2022-09-02 10:04 | PGE_ITS ---
Date of Service Date of service: 09/02/22 Time of Service: 10:04 Assessment and Plan Assessment and plan (1) Closed intertrochanteric fracture of left femur: Status: Acute Assessment and plan: Ilia is POD#5 s/p IMN of a left intertrochanteric hip fracture. Increase his scheduled APAP to 1000 mg tid; dc fentanyl and change hydrocodone to ultram. encourage ambulation w/ P.T. Professional time spent interviewing and examining patient, discussion of goals of care with hospital team (care management, nursing and consulting professionals) was 30 minutes. (2) Alcoholism in remission: Status: Acute Assessment and plan: Low BMI at least in part d/t this. (3) CAD (coronary artery disease): Status: Chronic Assessment and plan: Not on aspirin. His lopressor was increased yesterday to his prior dose of 25 mg daily. I will change him to long acting Toprol XL. he may need additional dosing to keep his afib under control. He is on atorvastatin and should be on ASA 81 mg daily (4) Diastolic heart failure: Status: Acute Assessment and plan: Judicious use of any IV fluids. Presented with mild dehydration. Has tolerated IV fluid boluses for soft BP. Added midodrine to maintain BP; monitor. (5) Chronic obstructive lung disease: Status: Chronic Assessment and plan: Cont Stiolto. PRN albuterol. In light of his productive cough, I will put him on Levaquin and check CXR. encourage pulmonary toiletry. I will ask RT to perform pulmonary toiletry w/ Volara (6) Discharge planning issues: Status: Acute Assessment and plan: Full code. Has been seen by palliative; last November. Palliative to see. Per CM patient to go to the [facility] when medically ready (7) Afib: Assessment and plan: On metoprolol for rate control. Not on AC. Metoprolol has been adjusted d/t low BP; was decreased. Will now increase back to home dose. SCDs for VTE prophylaxis. Subjective Subjective Interval history since last seen: Postop day #5 left proximal femur fracture IM fixation. Patient seems somewhat lethargic today but he does respond to my questions but difficult to understand his voice is very quiet. Sitting up in chair hunched over. He has a moist cough productive of purulent yellow mucus. He is afebrile. He is requiring supplemental oxygen at 1 L/min to maintain his saturation above 90%. His atrial fibrillation rate is less than optimally controlled. Overnight telemetry demonstrated A-fib into the 120s. Currently he is 100s to 110s. We will hold off on transfer back to longterm today will return toA-fib rate as well as rule out any respiratory infection. Check chest x-ray today empirically started on antibiotics for COPD with bronchitis. Exam Narrative Exam Narrative: Cachectic appearing older gentleman sitting up in the chair hunched over rather kyphotic. Somewhat lethargic but does open his eyes respond to. Lungs with scattered expiratory wheezes Heart is irregular regular tachycardic Abdomen soft nontender Extremities without peripheral edema or cyanosis. Objective Last Vital Signs Temp 36.4 C L 09/02/22 07:13 Pulse 108 H 09/02/22 07:13 Resp 18 09/02/22 07:13 BP 102/68 09/02/22 07:13 Pulse Ox 90 L 09/02/22 07:13 Laboratory Results - last 24 hr 09/02/22 09/02/22 06:35 06:35 WBC 9.85 RBC 3.41 L Hgb 10.2 L Hct 32.8 L MCV 96 H MCH 29.9 MCHC 31.1 L RDW 15.4 H Plt Count 297 MPV 9.5 Sodium 147 H Potassium 4.3 Chloride 113 H Carbon Dioxide 25.4 Anion Gap 8.6 BUN 39 H Creatinine 0.9 Est GFR (CKD-EPI 2020) 90.74 Glucose 94 Calcium 9.0 Time Spent with Patient Time Spent with Patient: 25-34 minutes Time was spent: preparing to see the patient(eg.review tests), ordering medications,tests, procedures, referring, communicating with other health behavioral health care manager, indepentently interpreting results, counseling the patient and care coordination
--- NOTE | 2022-09-02 10:17 | CMPROGNOTE_ITS ---
- If Service Date Differs Date of service: 09/02/22 Time of Service: 10:17 Care Management Progress Note S/O: Ilia was sitting up in his chair when CM met with him. He is awake and engages in conversation, minimally. His TV was was on Mute, and CM turned up the volume, per pt request. Ilia is s/p left femur fracture fixation. PT recommends SNF for STR and is offered a bed at [facility] when medially ready. Per provider, Ilia has a productive cough, a sputum culture is needed and he is not medically ready for discharge today. CM notified the [facility]. In addition, CM spoke with Karley at [facility] and Ilia has a [facility] application pending, but more info is needed. Ilia is ok with his roommate Lyudmila providing more information and signed a authorized Rep form which CM faxed back to Karley. A: 72 year old male admitted to [facility] on 08/28/22 for L Intraochanter Femoral Fracture P: Ilia went to the OR 08/28/22 for a femur fx repair. PT recommends SNF for short term rehab. The [facility] offered Ilia a bed. He will transport via [employer] [facility] van. Palliative Care is consulted, to discuss goals of care and recovery. He will follow up with his PCP and discharge plan of care. CM will continue to follow.
[2022-09-02] MEDS: levoFLOXacin 500 MG, levoFLOXacin 250 MG 750 MG PO (11:42)
--- NOTE | 2022-09-02 14:23 | PT.INTREAT ---
Date of service: 09/02/22 Time of Service: 11:40 PT Notes Visit Reasons: L Intratrochanter Femoral Fracture Inpatient Physical Therapy Treatment Note [facility] Date: 09/02/2022 PRECAUTIONS: Fall, activity as tolerated, WBAT L SUBJECTIVE: Ilia is agreeable to participating in PT. He reports that he is having significant pain about the L hip area with all movement. OBJECTIVE: PAIN: Patient c/o pain in L hip with all movement BED MOBILITY/TRANSFERS Sit-stand: Min A (performed x2) Stand-sit: Min A with cueing for safety (performed x2) GAIT: Held gait training today THEREX: Due to fatigue, instructed/completed AAROM to B LE while in a seated position, to include: ankle pumps, LAQ, hip flexion and hip abduction. TOILETING: Patient toileted utilizing handheld urinal in standing position with assist. ASSESSMENT: Patient tolerated session with c/o severe L hip pain with all movement. He was able to complete transfers utilizing FWW and Min A, however, requires cueing for safety and continues to demonstrate limited activity tolerance. PLAN: Continue with global strengthening and general conditioning for improved activity tolerance and mobility. Recommend discharge to SNF-level rehab due to current functional mobility limitations. TREATMENT CODE/TIME: Session 1: 25 minutes; 69615, [id number] (11:40) Session 2: Refused
--- NOTE | 2022-09-02 14:42 | W.PALPGNOTE ---
Date of service: 09/02/22 Time of Service: 14:15 Assessment and Plan Assessment and plan (1) Advanced care planning/counseling discussion: Status: Acute (2) Palliative care encounter: Status: Acute Assessment and plan: Palliative care team will continue to follow patient to subacute rehab and when he returns home. (3) Closed fracture of left hip: Status: Acute Subjective Subjective Interval history since last seen: I met with Mr. Kang today to review healthcare agent. We discussed this at my last visit with him and he wanted to change his primary healthcare agent to his housemate Lyudmila De La Torre with his sister Chrissy Stewart as alternate healthcare agent. That form had been lost. When I went to see him 2 days ago, he was quite somnolent and unable to hold a conversation. Today he was dozing in bed with his lunch tray in front of him. He would only open his eyes briefly. But he did answer questions with brief answers. He confirmed that he did indeed still want Lyudmila to be his primary. He seemed to have capacity today: He was able to help me spell his sister's name and confirmed her town of residence. Healthcare agent form was completed and patient signed it and it was witnessed. Copy given to care management team for scanning in. Additionally, I want to discuss pain with patient. He says he is not in pain he is just very very tired. He is not sure why he is still tired. He is not very hungry, although he is thirsty. He denies feeling short of breath. At this point he said he was very tired and felt he could no longer speak with me. We did not review limitations of treatment today; patient has consistently said he wants to have any treatment offered including CPR and intubation should it be indicated at my previous 2 visits with him. Exam Narrative Exam Narrative: Thin gentleman, flushed cheeks. Sitting up at 45 degrees but hunched forward. Frequent juicy cough, nonproductive during my visit. Opens his eyes briefly. Requests soda and is able to hold glass and drink on his own. Able to sign healthcare agent form. Does not appear to be dyspneic. Objective Last Vital Signs Temp 36.3 C L 09/02/22 10:54 Pulse 77 09/02/22 10:54 Resp 19 09/02/22 10:54 BP 107/73 09/02/22 10:54 Pulse Ox 96 09/02/22 10:54 Laboratory Results - last 24 hr 09/02/22 09/02/22 06:35 06:35 WBC 9.85 RBC 3.41 L Hgb 10.2 L Hct 32.8 L MCV 96 H MCH 29.9 MCHC 31.1 L RDW 15.4 H Plt Count 297 MPV 9.5 Sodium 147 H Potassium 4.3 Chloride 113 H Carbon Dioxide 25.4 Anion Gap 8.6 BUN 39 H Creatinine 0.9 Est GFR (CKD-EPI 2020) 90.74 Glucose 94 Calcium 9.0
[2022-09-02] MEDS: Midodrine 2.5 MG TAB 5 MG PO ×2 (15:00→20:56)
[2022-09-02] MEDS: Acetaminophen 500 MG TAB 1000 MG PO ×2 (15:02→20:54)
[2022-09-02] MEDS: Enoxaparin 40 MG/0.4 ML SYR SC (19:15)
[2022-09-02] MEDS: Bisacodyl 10 MG SUPP PR (19:15)
[2022-09-02] MEDS: Methylnaltrexone 12 MG/0.6 ML VIAL SC (19:15)
[2022-09-02] MEDS: Mirtazapine 15 MG TAB 7.5 MG PO (20:50)
[2022-09-02] MEDS: Docusate Sodium 100 MG CAP PO (20:50)
[2022-09-02] MEDS: Tamsulosin 0.4 MG CAPCR PO (20:52)
[2022-09-02] MEDS: Atorvastatin 10 MG TAB PO (20:56)
[2022-09-02] MEDS: Senna TAB 1 TAB PO (21:05)
[2022-09-02] MEDS: guaiFENesin 600 MG TABCR 1200 MG PO (21:05)
[2022-09-03] VITALS (11 sets, daily range): BP systolic 96–130; BP diastolic 64–77; PULSE 64–115; RESP 16–18; TEMP 35.7–36.7; O2SAT 90–99
[2022-09-03 06:48] LABS: HCT 32.1 % (40.0-50.0); HGB 9.9 g/dL (13.5-17.5); MCH 29.9 pg (27.0-33.0); MCHC 30.8 % (32.0-36.0); MCV 97 fL (80-95); MPV 9.6 fL (8.0-11.0); Platelet Count 293 10^3/uL (130-400); RBC 3.31 10^6/uL (4.36-5.78); RDW 15.4 % (11.8-14.1); RDW-SD 54.1 fL; WBC 9.94 10^3/uL (4.4-10.8)
[2022-09-03 07:16] LABS: Ferritin 201 ng/mL (26-388)
[2022-09-03 07:22] LABS: ALT 12 U/L (16-63); AST 21 U/L (15-37); Absolute Monocyte Count 0.89 10^3/uL (0.1-0.8); Absolute Neutrophil Count 7.95 10^3/uL (1.2-6.7); Albumin 1.9 g/dL (3.4-5.0); Alkaline Phosphatase 156 U/L (46-116); Anion Gap 9.7 mmol/L (3-11); BUN 33 mg/dL (7-18); Bands % 3; Bilirubin, Total 0.6 mg/dL (0.2-1.0); CO2 24.3 mmol/L (21.0-32.0); CREATININE 0.9 mg/dL (0.70-1.30); Calcium 9.1 mg/dL (8.5-10.1); Chloride 112 mmol/L (98-107); Estimated GFR 90.74 (mL/min/1.73m2); Glucose 88 mg/dL (74-106); Metamyelocytes % 1; Potassium 4.5 mmol/L (3.5-5.1); Sodium 146 mmol/L (136-145); Total Protein 6.4 g/dL (6.4-8.2)
[2022-09-03 07:23] LABS: Diff Comment Manual Differential; RBC Morphology Normal
[2022-09-03 07:28] LABS: Folate 11.4 ng/mL (8.6-20.0); Vitamin B12 782 pg/mL (193-986)
[2022-09-03] MEDS: Acetaminophen 500 MG TAB 1000 MG PO ×3 (08:13→20:13)
[2022-09-03] MEDS: levoFLOXacin 500 MG, levoFLOXacin 250 MG 750 MG PO (08:16)
[2022-09-03] MEDS: Polyethylene Glycol 3350 17 GM PACKET PO ×2 (08:18→20:14)
[2022-09-03] MEDS: Pantoprazole 40 MG TABCR PO ×2 (08:20→20:12)
[2022-09-03] MEDS: Cholecalciferol (Vitamin D3) 1,000 UNIT TAB 2000 UNITS PO (08:20)
[2022-09-03] MEDS: guaiFENesin 600 MG TABCR 1200 MG PO ×2 (08:21→20:12)
[2022-09-03] MEDS: Docusate Sodium 100 MG CAP PO ×3 (08:21→20:10)
[2022-09-03] MEDS: Gabapentin 300 MG CAP PO ×3 (08:23→20:14)
[2022-09-03] MEDS: Midodrine 2.5 MG TAB 5 MG PO ×3 (08:25→20:12)
[2022-09-03] MEDS: Tiotropium/Olodaterol 10 PUFF INHALER 2 PUFF IH (08:35)
[2022-09-03] MEDS: traMADol 50 MG TAB 100 MG PO (08:36)
[2022-09-03] MEDS: Metoprolol CR 25 MG TABCR PO (09:08)
--- NOTE | 2022-09-03 09:09 | PDOC.CMPRO ---
- If Service Date Differs Date of service: 09/03/22 Time of Service: 09:09 Care Management Progress Note S/O: Ilia was sitting up in his chair when CM met with him. He is awake and engages in conversation, minimally. Ilia is s/p left femur fracture fixation. He is offered a bed at [facility] for STR, when medially ready. Per provider Ilia is not medically ready for discharge again today,as his afib needs further monitoring with med adjustment. The [facility] will not be able to accommodate admission over the weekend. CM will follow up with the [facility] on Tuesday. In addition, CM spoke with Karley at [facility] and Ilia has a [facility] application pending, but more info is needed. Ilia is ok with his roommate Lyudmila providing more information and signed a authorized Rep form which CM faxed back to Karley. A: 72 year old male admitted to [facility] on 08/28/22 for L Intraochanter Femoral Fracture P: Ilia went to the OR 08/28/22 for a femur fx repair. PT recommends SNF for short term rehab. [facility] offered Ilia a bed. He will transport via [employer] [facility] van. Palliative Care is consulted, to discuss goals of care and recovery. He will follow up with his PCP and discharge plan of care. CM will continue to follow.
--- NOTE | 2022-09-03 10:13 | PT.INTREAT ---
Date of service: 09/03/22 Time of Service: 09:32 PT Notes Visit Reasons: L Intratrochanter Femoral Fracture Inpatient Physical Therapy Treatment Note [facility] Date: 09/03/2022 PRECAUTIONS: Fall, activity as tolerated, WBAT L SUBJECTIVE: Ilia is hesitant, but agreeable to participating in PT. He reports that he is feeling more awake today. He continues to report significant pain about the L hip area with all movement. OBJECTIVE: PAIN: Patient c/o pain in L hip with all movement BED MOBILITY/TRANSFERS Supine-sit: Min A with HOB at 40 degrees Sit-stand: CGA Stand-sit: CGA Chair-bed: CGA GAIT Assistive Device: FWW Weight bearing: WBAT L Assist: CGA Distance: Stand-pivot transfer + 4 steps Deviation: Slow pacing, shuffling gait, cueing for posture, cueing for safety THEREX: Patient was instructed in a LE strengthening program, completed in a supine position, to include: ankle pumps, heel slides, SLR and hip abduction, x10 reps each. Also perform passive stretching to L LE into knee extension due to tightness. TOILETING: Patient toileted with assist utilizing commode ASSESSMENT: Patient tolerated session with c/o severe L hip pain with all movement. He was able to complete transfer utilizing FWW and CGA, although continues to require cueing for safety and encouragement to participate in gait training. PLAN: Continue with global strengthening and general conditioning for improved activity tolerance and mobility. Recommend discharge to SNF-level rehab due to current functional mobility limitations. TREATMENT CODE/TIME: Session 1: 38 minutes; [id number] x2, [id number] (09:32) Session 2: 15 minutes; [id number] (13:50)
--- NOTE | 2022-09-03 10:56 | PGE_ITS ---
Date of Service Date of service: 09/03/22 Time of Service: 10:56 Assessment and Plan Assessment and plan (1) Closed intertrochanteric fracture of left femur: Status: Acute Assessment and plan: Ilia is POD#6 s/p IMN of a left intertrochanteric hip fracture. Increase his scheduled APAP to 1000 mg tid; dc fentanyl and change hydrocodone to ultram. encourage ambulation w/ P.T. trasnfer to SNF when afib rate is reasonably controlled Professional time spent interviewing and examining patient, discussion of goals of care with hospital team (care management, nursing and consulting professionals) was 30 minutes. (2) Afib: Assessment and plan: On metoprolol for rate control. Not on AC. Metoprolol has been adjusted d/t low BP; was decreased. He is now on his home dose of metoprolol but I have changed to Toprol XL. I will begin digoxin loading today and hopefully will be able to dc to SNF tomorrow SCDs for VTE prophylaxis. (3) Chronic obstructive lung disease: Status: Chronic Assessment and plan: Cont Stiolto. PRN albuterol. In light of his productive cough, I have put him on Levaquin and check CXR. encourage pulmonary toiletry. I will ask RT to perform pulmonary toiletry w/ Volara (4) Alcoholism in remission: Status: Acute Assessment and plan: Low BMI at least in part d/t this. (5) CAD (coronary artery disease): Status: Chronic Assessment and plan: Not on aspirin. His lopressor was increased yesterday to his prior dose of 25 mg daily. I will change him to long acting Toprol XL. he may need additional dosing to keep his afib under control. He is on atorvastatin and should be on ASA 81 mg daily (6) Diastolic heart failure: Status: Acute Assessment and plan: Judicious use of any IV fluids. Presented with mild dehydration. Has tolerated IV fluid boluses for soft BP. Added midodrine to maintain BP; monitor. (7) Discharge planning issues: Status: Acute Assessment and plan: Full code. Has been seen by palliative; last November. Palliative to see. Per CM patient to go to the [facility] when medically ready Subjective Subjective Interval history since last seen: No new concerns from the patient. However, he still has variable afib rate control. This morning he had a period of nearly 2 hrs of HR over 130 bpm. His Toprol XL was held this morning d/t BP parameters but was finally given and afterward his rates started to decline. His cough is not as productive today. Exam Narrative Exam Narrative: Cachectic appearing white male, sitting up in his chair watching TV. He is alert, very quiet voice Lungs: diffusely diminished breath sounds; no rhonchi; Heart: irregularly irregular and slightly tachycardic at present Abdomen: soft, nontender Left hip wound appears intact; dressing in place, no ecchymoses but tenderizer tender to palpation Objective Last Vital Signs Temp 36.7 C 09/03/22 08:00 Pulse 99 H 09/03/22 08:53 Resp 18 09/03/22 08:00 BP 110/70 09/03/22 08:00 Pulse Ox 94 09/03/22 08:00 Laboratory Results - last 24 hr 09/03/22 09/03/22 09/03/22 06:27 06:27 06:27 WBC RBC Hgb Hct MCV MCH MCHC RDW Plt Count MPV Immature Gran % Neutrophils % Band Neutrophils % Lymphocytes % Monocytes % Eosinophils % Basophils % Metamyelocytes % Nucleated RBC % Absolute Neutrophils Absolute Lymphocytes Absolute Monocytes Absolute Eosinophils Absolute Basophils RBC Morphology Sodium 146 H Potassium 4.5 Chloride 112 H Carbon Dioxide 24.3 Anion Gap 9.7 BUN 33 H Creatinine 0.9 Est GFR (CKD-EPI 2020) 90.74 Glucose 88 Calcium 9.1 Ferritin 201 Total Bilirubin 0.6 AST 21 ALT 12 L Alkaline Phosphatase 156 H Total Protein 6.4 Albumin 1.9 L Vitamin B12 782 Folate 11.4 09/03/22 06:27 WBC 9.94 RBC 3.31 L Hgb 9.9 L Hct 32.1 L MCV 97 H MCH 29.9 MCHC 30.8 L RDW 15.4 H Plt Count 293 MPV 9.6 Immature Gran % 0.0 Neutrophils % 77.0 Band Neutrophils % 3 Lymphocytes % 8.0 Monocytes % 9.0 Eosinophils % 2.0 Basophils % 0.0 Metamyelocytes % 1 Nucleated RBC % 1.0 H Absolute Neutrophils 7.95 H Absolute Lymphocytes 0.80 L Absolute Monocytes 0.89 H Absolute Eosinophils 0.20 Absolute Basophils 0.00 RBC Morphology Normal Sodium Potassium Chloride Carbon Dioxide Anion Gap BUN Creatinine Est GFR (CKD-EPI 2020) Glucose Calcium Ferritin Total Bilirubin AST ALT Alkaline Phosphatase Total Protein Albumin Vitamin B12 Folate Time Spent with Patient Time Spent with Patient: 25-34 minutes Time was spent: preparing to see the patient(eg.review tests), ordering medi cations,tests, procedures, indepentently interpreting results, counseling the patient and care coordination
[2022-09-03] MEDS: Digoxin 0.5 MG/2 ML AMP 0.25 MG IVP ×2 (12:19→18:18)
--- NOTE | 2022-09-03 12:52 | W.PM.PROGNOT ---
Date of Service Date of service: 09/03/22 Time of Service: 12:52 Assessment and Plan Assessment and plan (1) Closed intertrochanteric fracture of left femur: Status: Acute Assessment and plan: No change in patient status 6 days status post an IM nail fixation of his left hip fracture. He may continue to increase his weightbearing as tolerated although this may come slowly. Generalized soreness will be normal for him for quite some time. We will leave the dressings in place at this time. Subjective Subjective Interval history since last seen: Ilia is 6 days status post IM nail fixation of a left hip fracture performed on 08/28/2022, and he has had very little change in his status. He relates generalized pain but no specific pain to his hip. He has been able to transfer using a shuffle step according to his nurse which was there to help answer questions. He has had no issues with his wounds at this time. He states that he has not been able to walk for any period of time. No new complaints. Exam Extrem Other: Exam of the left hip shows that flex dressing is in place over surgical incisions with no drainage soaking onto the Mepilex. Gentle passive internal and external rotation is not painful. Objective Last Vital Signs Temp 96.8 F L 09/03/22 11:15 Pulse 115 H 09/03/22 12:25 Resp 16 09/03/22 12:25 BP 106/69 09/03/22 12:25 Pulse Ox 94 09/03/22 12:25 Laboratory Results - last 24 hr 09/03/22 09/03/22 09/03/22 06:27 06:27 06:27 WBC RBC Hgb Hct MCV MCH MCHC RDW Plt Count MPV Immature Gran % Neutrophils % Band Neutrophils % Lymphocytes % Monocytes % Eosinophils % Basophils % Metamyelocytes % Nucleated RBC % Absolute Neutrophils Absolute Lymphocytes Absolute Monocytes Absolute Eosinophils Absolute Basophils RBC Morphology Sodium 146 H Potassium 4.5 Chloride 112 H Carbon Dioxide 24.3 Anion Gap 9.7 BUN 33 H Creatinine 0.9 Est GFR (CKD-EPI 2020) 90.74 Glucose 88 Calcium 9.1 Ferritin 201 Total Bilirubin 0.6 AST 21 ALT 12 L Alkaline Phosphatase 156 H Total Protein 6.4 Albumin 1.9 L Vitamin B12 782 Folate 11.4 09/03/22 06:27 WBC 9.94 RBC 3.31 L Hgb 9.9 L Hct 32.1 L MCV 97 H MCH 29.9 MCHC 30.8 L RDW 15.4 H Plt Count 293 MPV 9.6 Immature Gran % 0.0 Neutrophils % 77.0 Band Neutrophils % 3 Lymphocytes % 8.0 Monocytes % 9.0 Eosinophils % 2.0 Basophils % 0.0 Metamyelocytes % 1 Nucleated RBC % 1.0 H Absolute Neutrophils 7.95 H Absolute Lymphocytes 0.80 L Absolute Monocytes 0.89 H Absolute Eosinophils 0.20 Absolute Basophils 0.00 RBC Morphology Normal Sodium Potassium Chloride Carbon Dioxide Anion Gap BUN Creatinine Est GFR (CKD-EPI 2020) Glucose Calcium Ferritin Total Bilirubin AST ALT Alkaline Phosphatase Total Protein Albumin Vitamin B12 Folate Time Spent with Patient Time Spent with Patient: <25 minutes Time was spent: preparing to see the patient(eg.review tests), obtaining and/or reviewing separately otained hiistory and counseling the patient
--- NOTE | 2022-09-03 15:28 | CHAPLAIN ---
Ilia was in bed when I visited. I explained my role and offered support. He asked for some ice to go in his apple juice and I got that for him.
[2022-09-03] MEDS: Normal Saline Flush 10 ML SYR IVP (18:19)
[2022-09-03] MEDS: Enoxaparin 40 MG/0.4 ML SYR SC (20:10)
[2022-09-03] MEDS: Mirtazapine 15 MG TAB 7.5 MG PO (20:11)
[2022-09-03] MEDS: Tamsulosin 0.4 MG CAPCR PO (20:11)
[2022-09-03] MEDS: Atorvastatin 10 MG TAB PO (20:12)
[2022-09-03] MEDS: Senna TAB 1 TAB PO (20:13)
[2022-09-03] MEDS: Ferrous Gluconate 324 MG TAB PO (22:45)
[2022-09-04] VITALS (18 sets, daily range): BP systolic 94–117; BP diastolic 50–71; PULSE 61–90; RESP 7–20; TEMP 36.1–36.8; O2SAT 86–96
[2022-09-04] MEDS: Digoxin 0.5 MG/2 ML AMP 0.125 MG IVP ×2 (00:59→06:49)
[2022-09-04] MEDS: Normal Saline Flush 10 ML SYR IVP ×5 (00:59→23:15)
[2022-09-04 06:28] LABS: Abs Immature Grans 1.05 10^3/uL (0.0-0.06); HCT 33.3 % (40.0-50.0); HGB 10.5 g/dL (13.5-17.5); MCH 30.6 pg (27.0-33.0); MCHC 31.5 % (32.0-36.0); MCV 97 fL (80-95); MPV 9.6 fL (8.0-11.0); Nucleated RBC 0.2 % (0.0-0.3); Platelet Count 304 10^3/uL (130-400); RBC 3.43 10^6/uL (4.36-5.78); RDW 15.6 % (11.8-14.1); RDW-SD 54.2 fL; WBC 11.49 10^3/uL (4.4-10.8)
[2022-09-04] MEDS: traMADol 50 MG TAB 100 MG PO ×3 (06:38→11:04)
[2022-09-04 06:39] LABS: BUN 32 mg/dL (7-18); CREATININE 0.9 mg/dL (0.70-1.30); Calcium 9.2 mg/dL (8.5-10.1); Chloride 109 mmol/L (98-107); Estimated GFR 90.74 (mL/min/1.73m2); Glucose 86 mg/dL (74-106); Potassium 4.6 mmol/L (3.5-5.1); Sodium 139 mmol/L (136-145)
[2022-09-04 06:40] LABS: Magnesium 1.7 mg/dL (1.8-2.4)
[2022-09-04 07:22] LABS: Absolute Lymphocyte Count 0.92 10^3/uL (1.2-3.4); Absolute Neutrophil Count 9.31 10^3/uL (1.2-6.7); Bands % 4
[2022-09-04 07:23] LABS: Absolute Eosinophil Count 0.23 10^3/uL (0.0-0.7); Absolute Monocyte Count 0.69 10^3/uL (0.1-0.8); Diff Comment Manual Differential; Metamyelocytes % 3; RBC Morphology Normal
[2022-09-04] MEDS: Tiotropium/Olodaterol 10 PUFF INHALER 2 PUFF IH (07:55)
[2022-09-04] MEDS: Albuterol 2.5 MG/3 ML INH SOLN VIAL UPD (07:55)
[2022-09-04 08:02] LABS: Lab Add On Test DONE
[2022-09-04] MEDS: Normal Saline 500 ML 100 ML IV (09:20)
[2022-09-04] MEDS: Polyethylene Glycol 3350 17 GM PACKET PO ×2 (09:21→20:33)
[2022-09-04] MEDS: Ferrous Gluconate 324 MG TAB PO ×2 (09:21→23:11)
[2022-09-04] MEDS: Docusate Sodium 100 MG CAP PO ×3 (09:21→20:31)
[2022-09-04] MEDS: Midodrine 2.5 MG TAB 5 MG PO ×3 (09:21→20:33)
[2022-09-04] MEDS: MAGNESIUM SULFATE 2 GM/50 ML BAG IVPB (09:21)
[2022-09-04] MEDS: levoFLOXacin 500 MG, levoFLOXacin 250 MG 750 MG PO (09:22)
[2022-09-04] MEDS: guaiFENesin 600 MG TABCR 1200 MG PO ×2 (09:22→20:31)
[2022-09-04] MEDS: Cholecalciferol (Vitamin D3) 1,000 UNIT TAB 2000 UNITS PO (09:22)
[2022-09-04] MEDS: Pantoprazole 40 MG TABCR PO ×2 (09:22→20:31)
[2022-09-04] MEDS: Acetaminophen 500 MG TAB 1000 MG PO ×3 (09:22→20:31)
[2022-09-04] MEDS: Gabapentin 300 MG CAP PO ×3 (09:22→20:31)
[2022-09-04 09:39] LABS: Procalcitonin 0.1 ng/mL
--- NOTE | 2022-09-04 10:36 | PT.INTREAT ---
PT Notes Visit Reasons: L Intratrochanter Femoral Fracture Inpatient Physical Therapy Treatment Note [facility] Date: 09/04/22 SUBJECTIVE: Ilia states that he wants to go home. He is not interested in PT, but willing participate. OBJECTIVE: [] PAIN: 04/15 BED MOBILITY/TRANSFERS pt already sitting in chair this am. Sit-stand: min A Stand-sit: CGA GAIT Assistive Device: FWW Weight bearing:AT Assist: CGA/ min A Distance: refused to ambulate but stood x 1.5 min THEREX: global LE strength while seated in chair. LAQ, AP, hip ab/add x 10ea. ASSESSMENT: fwd flex posture once on his feet. I could not convince him to take any steps, but was willing to stand. Increased pain with hip flex, coughing and wt bearing. PLAN: will continue to progress his strength and functional mobility per PT TREATMENT CODE/TIME: 20 min. [id number]
--- NOTE | 2022-09-04 17:09 | W.PM.PROGNOT ---
Date of Service Date of service: 09/04/22 Time of Service: 17:09 Assessment and Plan Assessment and plan (1) Closed intertrochanteric fracture of left femur: Status: Acute Assessment and plan: POD#7 s/p intramedulary nailing of a left intertrochanteric hip fracture. Continue tylenol + ultram. Continue PT. (2) Afib: Assessment and plan: Difficulty tolerating metoprolol (low BP). Continue digoxin at 125 mcg daily dose. Obtain digoxin level. Replete lytes. (3) Chronic obstructive lung disease: Status: Chronic Assessment and plan: Continue prn albuterol; Stiolto. ?acute bronchitis. Continue levofloxacin. Encourage pulmonary toilet. (4) Alcoholism in remission: Status: Chronic Assessment and plan: Contributing to malnutrition. Encourage adequate nutrition. Nutrition recommends a regular diet + ensure shakes. (5) CAD (coronary artery disease): Status: Chronic Assessment and plan: Not on aspirin Continue atorvastatin. Not tolerating beta blockade - will try again tomorrow. (6) Diastolic heart failure: Status: Chronic Assessment and plan: Euvolemic at this time. Avoid IVF. (7) Discharge planning issues: Status: Acute Assessment and plan: Full code. Palliative care consulted. Anticipated discharge to the [facility] on Tuesday. Subjective Subjective Interval history since last seen: Mr Kang reports pain in his L leg; otherwise, he is comfortable. Denies dizziness, chest pain, shortness of breath, nausea. Exam Narrative Exam Narrative: General: Pleasant frail-appearing gentleman, eating dinner while reclined in bed (nursing repositioning) HEENT: EOMI, MMM Heart: irregularly irregular rhythm, no m/r/g Lungs: CTAB Abdomen: soft, nontender, nondistended Extremities: no edema; L femoral incision dressed - c/d/i. Objective Last Vital Signs Temp 36.7 C 09/04/22 15:10 Pulse 70 09/04/22 15:10 Resp 20 09/04/22 15:10 BP 103/63 09/04/22 15:10 Pulse Ox 95 09/04/22 15:10 Laboratory Results - last 24 hr 09/04/22 09/04/22 09/04/22 06:00 06:00 06:00 WBC 11.49 H RBC 3.43 L Hgb 10.5 L Hct 33.3 L MCV 97 H MCH 30.6 MCHC 31.5 L RDW 15.6 H Plt Count 304 MPV 9.6 Immature Gran % See Differential Neutrophils % 77.0 Band Neutrophils % 4 Lymphocytes % 8.0 Monocytes % 6.0 Eosinophils % 2.0 Basophils % 0.0 Metamyelocytes % 3 Nucleated RBC % 0.2 Absolute Neutrophils 9.31 H Absolute Lymphocytes 0.92 L Absolute Monocytes 0.69 Absolute Eosinophils 0.23 Absolute Basophils 0.00 RBC Morphology Normal Sodium 139 Potassium 4.6 Chloride 109 H Carbon Dioxide 23.0 Anion Gap 7.0 BUN 32 H Creatinine 0.9 Est GFR (CKD-EPI 2020) 90.74 Glucose 86 Calcium 9.2 Magnesium 1.7 L Procalcitonin Add-On Test Request 09/04/22 09/04/22 08:20 08:20 WBC RBC Hgb Hct MCV MCH MCHC RDW Plt Count MPV Immature Gran % Neutrophils % Band Neutrophils % Lymphocytes % Monocytes % Eosinophils % Basophils % Metamyelocytes % Nucleated RBC % Absolute Neutrophils Absolute Lymphocytes Absolute Monocytes Absolute Eosinophils Absolute Basophils RBC Morphology Sodium Potassium Chloride Carbon Dioxide Anion Gap BUN Creatinine Est GFR (CKD-EPI 2020) Glucose Calcium Magnesium Procalcitonin 0.1 Add-On Test Request DONE Time Spent with Patient Time Spent with Patient: 25-34 minutes Time was spent: preparing to see the patient(eg.review tests), obtaining and/or reviewing separately otained hiistory, ordering medications,tests, procedures, referring, communicating with other health out of school hours care worker, indepentently interpreting results, counseling the patient and care coordination
[2022-09-04] MEDS: Enoxaparin 40 MG/0.4 ML SYR SC (20:33)
[2022-09-04] MEDS: Atorvastatin 10 MG TAB PO (23:10)
[2022-09-04] MEDS: Tamsulosin 0.4 MG CAPCR PO (23:10)
[2022-09-04] MEDS: Senna TAB 1 TAB PO (23:11)
[2022-09-04] MEDS: Mirtazapine 15 MG TAB 7.5 MG PO (23:11)
[2022-09-05] VITALS (12 sets, daily range): BP systolic 98–108; BP diastolic 57–70; PULSE 66–85; RESP 14–19; TEMP 36–36.6; O2SAT 93–96
[2022-09-05] MEDS: Acetaminophen 500 MG TAB 1000 MG PO ×3 (06:17→19:54)
[2022-09-05 06:34] LABS: Abs Immature Grans 1.04 10^3/uL (0.0-0.06); HGB 10.3 g/dL (13.5-17.5); MCH 29.8 pg (27.0-33.0); MCHC 31.2 % (32.0-36.0); MCV 95 fL (80-95); MPV 9.3 fL (8.0-11.0); Platelet Count 316 10^3/uL (130-400); RBC 3.46 10^6/uL (4.36-5.78); RDW 15.9 % (11.8-14.1); RDW-SD 52.7 fL; WBC 11.02 10^3/uL (4.4-10.8)
[2022-09-05 07:08] LABS: BUN 28 mg/dL (7-18); CREATININE 0.9 mg/dL (0.70-1.30); Calcium 8.5 mg/dL (8.5-10.1); Chloride 110 mmol/L (98-107); Digoxin 1.07 ng/mL (0.90-2.00); Estimated GFR 90.74 (mL/min/1.73m2); Glucose 74 mg/dL (74-106); Potassium 4.7 mmol/L (3.5-5.1); Sodium 144 mmol/L (136-145)
[2022-09-05] MEDS: Tiotropium/Olodaterol 10 PUFF INHALER 2 PUFF IH (07:26)
[2022-09-05] MEDS: Albuterol 2.5 MG/3 ML INH SOLN VIAL UPD (07:26)
[2022-09-05 07:36] LABS: Absolute Eosinophil Count 0.22 10^3/uL (0.0-0.7); Absolute Lymphocyte Count 1.32 10^3/uL (1.2-3.4); Absolute Monocyte Count 0.77 10^3/uL (0.1-0.8); Absolute Neutrophil Count 8.38 10^3/uL (1.2-6.7); Bands % 4; Diff Comment Manual Differential; Myelocytes % 3; Polychromasia Present
[2022-09-05] MEDS: Polyethylene Glycol 3350 17 GM PACKET PO ×2 (08:12→19:51)
[2022-09-05] MEDS: Cholecalciferol (Vitamin D3) 1,000 UNIT TAB 2000 UNITS PO (08:12)
[2022-09-05] MEDS: levoFLOXacin 500 MG, levoFLOXacin 250 MG 750 MG PO (08:12)
[2022-09-05] MEDS: Docusate Sodium 100 MG CAP PO ×3 (08:13→19:54)
[2022-09-05] MEDS: Midodrine 2.5 MG TAB 5 MG PO ×3 (08:13→19:54)
[2022-09-05] MEDS: guaiFENesin 600 MG TABCR 1200 MG PO ×2 (08:13→19:52)
[2022-09-05] MEDS: traMADol 50 MG TAB 100 MG PO ×3 (08:13→17:24)
[2022-09-05] MEDS: Pantoprazole 40 MG TABCR PO ×2 (08:13→19:54)
[2022-09-05] MEDS: Gabapentin 300 MG CAP PO ×3 (08:14→19:54)
[2022-09-05] MEDS: Digoxin 0.125 MG TAB PO (08:17)
[2022-09-05] MEDS: Metoprolol CR 25 MG TABCR PO (08:17)
[2022-09-05] MEDS: Ferrous Gluconate 324 MG TAB PO ×2 (10:25→21:37)
--- NOTE | 2022-09-05 11:12 | PT.INTREAT ---
PT Notes Visit Reasons: L Intratrochanter Femoral Fracture Inpatient Physical Therapy Treatment Note [facility] Date: 09/05/22 SUBJECTIVE: Ilia states that his bottom hurts and would like cushion removed, and pillow in its place. He also c/o neck and shld discomfort. OBJECTIVE: BED MOBILITY/TRANSFERS pt already sitting in chair this am. Sit-stand: CGA/min A (x2 reps) Stand-sit: CGA (x2 reps) GAIT Assistive Device: FWW Weight bearing:AT Assist: CGA/ min A Distance: again refused to ambulate, refused to stand any longer than it took me to change out cushions. THEREX: global LE strength while seated in chair. LAQ x15, AP x20, SLR with assistance, hip ab/add, heel slides x 10ea. ASSESSMENT: was able to tolerate more reps with ex, required encouragement to keep going. Able to transfer sit to stand with less assistance compared to yesterday. PLAN: will continue to progress his strength and functional mobility per PT TREATMENT CODE/TIME: 25 min. [id number], [id number]
--- NOTE | 2022-09-05 12:39 | NUR.NOTE ---
Nursing Note: At approximately 1235 on 09/05/22, this RN obtained a valuables envelope and, in the presence of the pt., placed one cigarette box containing five cigarettes and one center machine operator in the valuables envelope, sealed the envelope, signed and dated the envelope, and had the pt. sign the envelope. RN then left the room, placed the valuables envelope in the safe, and placed a label on the pt.'s chart.
[2022-09-05 13:26] LABS: Source Nasal/Nares
[2022-09-05 13:58] LABS: COVID-19 PCR Negative (Negative)
--- NOTE | 2022-09-05 17:22 | W.PM.PROGNOT ---
Date of Service Date of service: 09/05/22 Time of Service: 17:22 Assessment and Plan Assessment and plan (1) Closed intertrochanteric fracture of left femur: Status: Acute Assessment and plan: POD#8 s/p intramedulary nailing of a left intertrochanteric hip fracture. Continue tylenol + ultram. Continue PT. (2) Afib: Assessment and plan: Difficulty tolerating metoprolol (low BP). Continue digoxin at 125 mcg daily dose. (3) Left foot pain: Status: Acute Assessment and plan: Obtain XR L foot. (4) Chronic obstructive lung disease: Status: Chronic Assessment and plan: Continue prn albuterol; Stiolto. ?acute bronchitis. Continue levofloxacin. Encourage pulmonary toilet. (5) Alcoholism in remission: Status: Chronic Assessment and plan: Contributing to malnutrition. Encourage adequate nutrition. Nutrition recommends a regular diet + ensure shakes. (6) CAD (coronary artery disease): Status: Chronic Assessment and plan: Not on aspirin Continue atorvastatin. Continue beta blockers with holding parameters. (7) Diastolic heart failure: Status: Chronic Assessment and plan: Euvolemic at this time. Avoid IVF. (8) Discharge planning issues: Status: Acute Assessment and plan: Full code. Palliative care consulted. Anticipated discharge to the [facility] tomorrow. Subjective Subjective Interval history since last seen: C/o L foot pain across the top of the foot, in the crack there. This pain bothers him more than the hip. Denies dizziness, chest pain, shortness of breath, nausea. Exam Narrative Exam Narrative: General: Pleasant frail-appearing gentleman, reclined in bed HEENT: EOMI, MMM Heart: irregularly irregular rhythm, no m/r/g Lungs: CTAB Abdomen: soft, nontender, nondistended Extremities: no edema; L femoral incision dressed - c/d/i. No obvious bruise L foot, TTP MTP line. Objective Last Vital Signs Temp 36.4 C L 09/05/22 15:05 Pulse 79 09/05/22 15:05 Resp 19 09/05/22 15:05 BP 98/57 L 09/05/22 15:05 Pulse Ox 93 09/05/22 15:05 Laboratory Results - last 24 hr 09/05/22 09/05/22 09/05/22 05:53 05:53 13:16 WBC 11.02 H RBC 3.46 L Hgb 10.3 L Hct 33.0 L MCV 95 MCH 29.8 MCHC 31.2 L RDW 15.9 H Plt Count 316 MPV 9.3 Immature Gran % See Differential Neutrophils % 72.0 Band Neutrophils % 4 Lymphocytes % 12.0 Monocytes % 7.0 Eosinophils % 2.0 Basophils % 0.0 Myelocytes % 3 Nucleated RBC % 0.0 Absolute Neutrophils 8.38 H Absolute Lymphocytes 1.32 Absolute Monocytes 0.77 Absolute Eosinophils 0.22 Absolute Basophils 0.00 RBC Morphology See Below Polychromasia Present Sodium 144 Potassium 4.7 Chloride 110 H Carbon Dioxide 24.0 Anion Gap 10.0 BUN 28 H Creatinine 0.9 Est GFR (CKD-EPI 2020) 90.74 Glucose 74 Calcium 8.5 Magnesium 2.0 Digoxin 1.07 COVID-19 Source Nasal/Nares SARS-CoV-2 (PCR) Negative Time Spent with Patient Time Spent with Patient: 25-34 minutes Time was spent: preparing to see the patient(eg.review tests), obtaining and/or reviewing separately otained hiistory, ordering medications,tests, procedures, referring, communicating with other health care transition manager, indepentently interpreting results, counseling the patient and care coordination
--- NOTE | 2022-09-05 17:48 | DI.RAD_ITS ---
Exam(s) XR FOOT LT COMPLETE EXAM: XR FOOT LT COMPLETE CLINICAL HISTORY: L foot pain post fall. TECHNIQUE: 2D digital imaging was performed. COMPARISON: No exams were available for comparison FINDINGS: 3 views There is soft tissue swelling dorsally. No obvious fractures nor diastasis of the Lisfranc joint. N o evidence of osteomyelitis. Moderate size inferior calcaneal spur noted. No osseous lesions. IMPRESSION: Soft tissue swelling dorsally. No significant acute osseous findings. DATA REPOSITORY: RADIATION DOSE DELIVERED:
--- NOTE | 2022-09-05 17:52 | DI.VRAD_ITS ---
PROCEDURE INFORMATION: Exam: XR Left Foot Exam date and time: 09/05/2022 5:37 PM Age: 72 years old Clinical indication: Left; Patient HX: L foot pain post fall TECHNIQUE: Imaging protocol: Radiologic exam of the left foot. Views: 3 or more views. COMPARISON: No relevant comparison study. FINDINGS: Bones/joints: Plantar calcaneal spur. No fracture or dislocation. Soft tissues: Soft tissue swelling along the dorsum of the foot. IMPRESSION: No acute bony findings. If clinical symptoms persist recommend followup film in 7-10 days. Dictated and Authenticated by: Cindy Ramirez MD. Ordering:TOMI Jhaveri MD
[2022-09-05] MEDS: Normal Saline Flush 10 ML SYR IVP (19:55)
[2022-09-05] MEDS: Enoxaparin 40 MG/0.4 ML SYR SC (19:55)
[2022-09-05] MEDS: Tamsulosin 0.4 MG CAPCR PO (21:38)
[2022-09-05] MEDS: Senna TAB 1 TAB PO (21:38)
[2022-09-05] MEDS: Atorvastatin 10 MG TAB PO (21:38)
[2022-09-05] MEDS: Mirtazapine 15 MG TAB 7.5 MG PO (21:41)
[2022-09-06] VITALS (7 sets, daily range): BP systolic 104–113; BP diastolic 65–69; PULSE 65–74; RESP 14–16; TEMP 36.3–36.6; O2SAT 92–96
[2022-09-06] MEDS: traMADol 50 MG TAB 100 MG PO ×2 (04:41→08:17)
[2022-09-06 07:41] LABS: Anion Gap 7.8 mmol/L (3-11); BUN 25 mg/dL (7-18); CO2 24.2 mmol/L (21.0-32.0); CREATININE 0.9 mg/dL (0.70-1.30); Calcium 9.1 mg/dL (8.5-10.1); Chloride 107 mmol/L (98-107); Estimated GFR 90.74 (mL/min/1.73m2); Glucose 76 mg/dL (74-106); Magnesium 1.8 mg/dL (1.8-2.4); Potassium 4.5 mmol/L (3.5-5.1); Sodium 139 mmol/L (136-145)
--- NOTE | 2022-09-06 09:16 | PDOC.CMDIS ---
- If Service Date Differs Date of service: 09/06/22 Time of Service: 09:16 LACE Index Scoring Tool - Questions: Length of Stay (in days): 7 - 13 Acuity (Admit via E.D.?): Yes Comorbidities: Diabetes w/o Complication, Congestive Heart Failure, Chronic Pulmonary Disease, Metastatic Solid Tumor (HX GI Cancer) E.D. Visits: 11 - Answers: Total Score: 17 Risk of Readmission: High Risk Care Management Discharge Reason for Hospitalization: L Intraochanter Femoral Fracture Discharge Plan: Ilia is discharged to the [facility] for STR prior to returning home. He is transported via [facility]. Patient/Family Education Needs: Review discharge instructions, limitations and plan to follow up with community/facility providers. Discuss ask me three. Services Needed at Discharge: Custodial Facility ([facility]), Transportation ([employer] [facility])
--- NOTE | 2022-09-06 09:17 | OTTR_ITS ---
Occupational Therapy Notes Occupational Therapy Inpatient Treatment Note Date: 09/06/22 PRECAUTIONS: Fall, Standard, Full SUBJECTIVE: Pt states that he is leaving today. He notes that he is ready to go and wants to eat his breakfast. OBJECTIVE TOILETING: Device: Urinal Assist: (I) EATING: Pt requires max (A) for bed positioning to the seated position. Then in the seated position he is (I) with hand to mouth and opening of containers/packaging. He requires min (A) with smaller salt/pepper. His rounded shoulder, forward head posturing when well supported promotes increased (I) in his eating routine. Pt denies all other ADLs at todays session. ASSESSMENT/PLAN: Plan is for pt to be discharged today to the [facility]. He notes that he only wants to eat his breakfast at this time. TREATMENT CODES/TIME: [id number], 10 minutes Berenice Rojas OTR/L [facility]
[2022-09-06] MEDS: Tiotropium/Olodaterol 10 PUFF INHALER 2 PUFF IH (09:19)
--- NOTE | 2022-09-06 09:25 | W.PM.DS.N ---
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 (7) CAD (coronary artery disease): Status: Chronic (8) Diastolic heart failure: Status: Chronic Discharge Plan Disposition Patient Disposition: [facility](SNF) Condition: Stable Discharge Details Reason For Visit: L Intratrochanter Femoral Fracture Admit Date/Time: 08/28/22 07:26 Admit Provider: Mio Navarro Attending Provider: Mio Navarro Primary Care Provider: Silvina Perdue [facility] Course Hospital Course: Mr Kang is 72 year old male with PMHx of Afib, not on anticoagulation, COPD, pulmonary fibrosis, CAD, HFpEF, esophageal and gastric malignancy, chronic BLE venous stasis, alcoholism in remission, who was admitted to [facility] hospitalist service on 08/28/22 for a traumatic closed intertrochanteric fracture of L femur. He was taken to the OR for intermedullary nail fixation of the L femur by Dr Chávez on 08/28/22 (uncomplicated). He is WBAT with physical therapy. He will need f/u with Dr Chávez in 4 weeks. For pain, he is on scheduled tylenol as well as ultram 100 mg PO q4 hrs prn. The patient continues to report some degree of uncontrolled pain and so his pain medication regimen may need to be adjusted. He is on aspirin 81 mg PO BID for DVT prophylaxis. Additionally, the patient's Afib was not well controlled on this admission. His metoprolol was lowering his BP when it was attempted to be increased, and so the patient was started on digoxin. The patient was started on midodrine to try to improve the BP, but despite this, was unable to tolerate up-titration of the metoprolol. He is being discharged to the [facility] today on digoxin 0.125 mg PO daily. A referral to cardiology could be considered. He is not on anticoagulation at the time of discharge due to a high perceived risk to fall. Finally, the patient did have bruising of his ribs and a possible lung contusion on presentation. There was a suspicion for a superimposed bronchitis/less likely pneumonia. He completed 5 days of levofloxacin on this admission. He should be encouraged to use an incentive spirometer. He is being discharged to the [facility] today. He is medically stable for this discharge and is agreeable to discharge. Care for patient as well as completion of his discharge summary on day of discharge took 45 minutes. The patient's case was discussed with his provider at the [facility], [place]. Home Meds and New Rx's Prescriptions: New acetaminophen 500 mg Tablet 1,000 mg PO TID Qty: 0 0RF digoxin 125 mcg (0.125 mg) Tablet 0.125 mg PO DAILY Qty: 0 0RF docusate sodium [Colace] 100 mg Capsule 100 mg PO TID Qty: 0 0RF ferrous gluconate 324 mg (38 mg iron) Tablet 324 mg PO BID@1000,2200 Qty: 0 0RF guaifenesin [Mucus Relief ER] 600 mg Tablet Extended Release 12hr 1,200 mg PO BID Qty: 20 0RF metoprolol succinate 25 mg Tablet Extended Release 24 Hr 25 mg PO DAILY Qty: 0 0RF Rx Instructions: hold for SBP<100 or HR<60 midodrine 5 mg Tablet 5 mg PO TID Qty: 0 0RF polyethylene glycol 3350 17 gram Powder In Packet 17 g PO BID Qty: 0 0RF sennosides [Senokot] 8.6 mg Tablet 1 tab PO HS Qty: 0 0RF tramadol 50 mg Tablet 50 - 100 mg PO Q4H PRN PRN (Reason: pain) Qty: 24 0RF aspirin 81 mg capsule 81 mg PO BID Qty: 60 0RF lidocaine 5 % adhesive patch,medicated 1 patch topical DAILY Qty: 30 0RF Rx Instructions: apply to L-sided posterior ribs on for 12 hrs, off for 12 hrs Continued Combivent Respimat 20-100 mcg/actuation mist 1 puff inhalation Q6H PRN gabapentin 300 mg capsule 300 mg PO TID Patient Comments: Take 1 capsule by mouth three times a day One Daily Multi-Vit w-Mineral 4.5 mg iron tablet cholecalciferol (vitamin D3) 50 mcg (2,000 unit) tablet 50 mcg PO DAILY tamsulosin 0.4 mg capsule 0.4 mg PO HS Stiolto Respimat 2.5-2.5 mcg/actuation mist 2 puff INHALATION DAILY pantoprazole 40 mg tablet,delayed release (DR/EC) 40 mg PO BID atorvastatin 10 mg tablet 10 mg PO HS Ensure Liquid 237 ml PO 3XD Patient Comments: Take 237 ml by mouth three times a day Changed mirtazapine 7.5 mg tablet 7.5 mg PO HS Qty: 0 0RF Patient Comments: Take 1 tablet by mouth at bedtime Discontinued furosemide [Lasix] 20 mg tablet 20 mg PO QAM Patient Comments: pt states he has not picked up this med metoprolol tartrate 25 mg tablet 25 mg PO DAILY Patient Comments: Take 0.5 tablet by mouth twice a day spironolactone 25 mg tablet 50 mg PO DAILY hydrocodone-acetaminophen 10-325 mg tablet 1 tab PO Q8H Discharge Instructions Instructions: Digoxin (By mouth), A-fib (Atrial Fibrillation) (DC), Hip Fracture (GEN) Additional Instructions: Hip Fracture Discharge Instructions Activity: There is no restriction on activity. He is encouraged to practice walking and transferring. However, creasing distance on ambulation will take time as the bone needs to heal. There are no positioning restrictions. All weightbearing would be recommended to be done with a walker. At least daily physical therapy recommended to work on improving ambulation and functional abilities. Dressing: Keep the surgical site covered with a Mepilex dressing for the first 2 weeks. After that, the dressing may be removed and left open to the air. All sutures are buried in the skin and will not need to be removed. Follow-up: 4 weeks with x-ray with Dr. Chávez Stand Alone Forms: Nursing Discharge Form Referrals: Silvina Perdue MD [Primary Care Provider] - (Follow up per [facility] ) Gordy Chávez MD [ [facility] STAFF PHYSICIAN] - 09/28/22 10:00 am () Activity:: Activity as Tolerated Equipment/Supplies:: No Equipment Needed Diet:: Normal Diet Discharge Orders Discharge Orders: Discharge Order (Routine); Ordered 09/06/22 Ordered By: Shakila Mayberry DS: Summary Time Spent with Patient providing and/or coordinating discharge services: Greater than 30 minutes Status at Discharge Functional status at discharge: uses cane/walker Overall status at discharge: patient is progressing back to baseline Mental Status: mental status grossly normal Speech and Movement: speech and movement normal Mood: congruent mood Affect: normal affect Exam Narrative Exam Narrative: General: Pleasant frail-appearing gentleman, reclined in bed HEENT: EOMI, MMM Heart: irregularly irregular rhythm, no m/r/g, L-sided CP reproducible with palpation of ribs Lungs: CTAB Abdomen: soft, nontender, nondistended Extremities: no edema; L femoral incision dressed - c/d/i. No obvious bruise L foot, TTP MTP line. Psych Mental Status: mental status grossly normal Speech and Movement: speech and movement normal Mood: congruent mood Affect: normal affect DS: Data Vitals/I&O Vitals and I&O: Vital Signs Temperature 36.6 C 09/06/22 08:19 Temperature Source Tympanic 09/06/22 08:19 Pulse 65 09/06/22 08:19 Pulse Rhythm Irregular 09/06/22 04:09 Pulse 87 08/28/22 10:16 Respiratory Rate 14 09/06/22 08:19 Respiratory Effort Normal, Non-Labored 09/06/22 04:09 Respiratory Depth Normal 09/06/22 04:09 Respiratory Pattern Normal 09/06/22 04:09 Blood Pressure 111/69 09/06/22 08:19 Blood Pressure Mean 75 08/28/22 10:15 Blood Pressure Position Supine 08/28/22 03:55 Pulse Oximetry 92 09/06/22 09:18 Oxygen Delivery Method Room Air 09/06/22 09:18 Oxygen Flow Rate 0 09/06/22 09:18 Pain Level 2 09/06/22 05:41 Comment Charge nurse notified of pt.'s HR and BP. Digoxin and Lopressor administered at this time per the MAR. 09/05/22 08:17 Intake & Output 09/05/22 09/05/22 09/06/22 11:59 23:59 11:59 Intake Total 560 / 1220 660 / 1220 Output Total 700 / 875 175 / 875 300 / 300 Balance -140 / 345 485 / 345 -300 / -300 Intake: IV Oral 550 / 1210 660 / 1210 Output: Urine 700 / 875 175 / 875 300 / 300 Other: Urine Color Straw Light Janice Urine Appearance Clear Clear Clear Urine Odor Strong Stool Size Copious Stool Characteristics Formed Hard Voiding Methods Urinal Urinal Data Completed and Pending Labs on day of discharge: Labs from last 24 hours 09/06/22 09/05/22 05:29 13:16 Sodium 139 Potassium 4.5 Chloride 107 Carbon Dioxide 24.2 Anion Gap 7.8 BUN 25 H Creatinine 0.9 Est GFR (CKD-EPI 2020) 90.74 Glucose 76 Calcium 9.1 Magnesium 1.8 COVID-19 Source Nasal/Nares SARS-CoV-2 (PCR) Negative Additional Comments Additional comments: CXR 08/28/22: No acute? findings. Emphysematous changes.? Persistent left basilar densities there reflect residual infiltrate versus combination of overlying opacities and chronic interstitial changes. XR pelvis 08/28/22: Intertrochanteric fracture of the left femur. CT head/c-spine 08/28/22: Head CT: No acute abnormality. C-spine CT: Degenerative changes, scoliosis and stable C3-4 subluxation.? No acute abnormality. XR L tib/fib: Soft tissue swelling.? XR L elbow: Unremarkable radiographs of the left elbow. XR L femur: Intertrochanteric fracture of the left femur. Lumbar spine CT 08/2522: Degenerative changes greatest at L4-5.? No evidence of fracture. CT pelvis: Intertrochanteric fracture of the left femur. XR L hip 09/01/22: Stable postoperative changes.? CXR 09/02/22: Extremely limited exam.? Question of basilar infiltrates versus atelectasis. XR L foot 09/05/22: Soft tissue swelling dorsally.? No significant acute osseous findings. PFSH All Active Problems (Updated 09/06/22 @ 09:26 by Shakila Mayberry MD) Acute bronchitis (Acute) Left foot pain (Acute) Palliative care patient (Acute) Underweight (Acute) Diastolic heart failure (Chronic) Closed intertrochanteric fracture of left femur (Acute) s/p IMN fixation (08/28/22) Overdose (Acute) Aspiration pneumonitis (Acute) Fall (Acute) Blunt head trauma (Acute) Contusion of elbow, left (Acute) Contusion of left leg (Acute) Closed fracture of left hip (Acute) Mild cognitive impairment (Acute) Advanced care planning/counseling discussion (Acute) Literacy level of illiterate (Acute) Palliative care encounter (Acute) Discharge planning issues (Acute) DVT prophylaxis (Acute) Acute exacerbation of chronic obstructive pulmonary disease (COPD) (Acute) Acute on chronic right-sided congestive heart failure (Acute) Pneumonia (Acute) Hypoxia (Acute) Depression (Chronic) Dental abscess (Acute) 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) Abnormal chest CT (Acute) Full code status (Acute) Urinary tract infection (Acute) 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.EGD 04/2021 with friable mucosa. SDOne at that time because of GI blooed Afib Alcohol abuse Alcohol abuse, continuous drinking behavior Anemia Bilateral lower extremity edema CAD (coronary artery disease) of artery bypass graft Cerumen impaction CHF, acute on chronic Confusion state COVID-19 COVID-19 Diabetes mellitus Difficulty reading Edema Encounter for colorectal cancer screening Epididymitis, right (08/02/16) Essential hypertension Failure to thrive Fall GERD (gastroesophageal reflux disease) GI bleed GI bleeding H/O malignant neoplasm of stomach Heart failure, left, with LVEF 41-49% History of GI bleed Hoarseness Hydrocele, right (01/23/16) Hyperlipidemia Hypophosphatemia Kyphoscoliosis Low back pain Malnutrition Mild bibasilar atelectasis Pancreatitis Poor hygiene Prediabetes Protein malnutrition Pulmonary hypertension Recent weight loss Rib fractures Shortness of breath Solitary pulmonary nodule Tinnitus, left Tobacco abuse Weight loss Surgical History cardiac cath Coronary Artery Bypass Gaft (CABG) EGD - IV Sedation Esophagectomy H/O colonoscopy (2007) H/O colonoscopy (04/14/18) dr geller, sigmoid diverticulosis, repeat 10 years History of esophagogastroduodenoscopy (EGD) (09/2017) History of hydrocelectomy History of right inguinal hernia repair repair times two sugrical flap of unhealing wound Family History Mother No problems noted. Father No problems noted. Social History Smoking/Tobacco Use Status: Current every day Tobacco Type: cigarettes Smoking packs per day: 1 Smoking cigarettes per day: 20.0 Years smoked: 50 Smoking pack-years: 50.00 Smoking risk assessment performed?: Yes Alcohol Intake: former Drug use: Never Substance use type: does not use What type of physical activity do you participate in: none Do you feel safe at home: Yes Do you feel safe in your relationship?: Yes Time Spent with Patient Time Spent with Patient: 70-84 minutes4 Time was spent: preparing to see the patient(eg.review tests), obtaining and/or reviewing separately otained hiistory, ordering medications,tests, procedures, referring, communicating with other health physician locums urgent care, indepentently interpreting results, counseling the patient and care coordination
[2022-09-06] MEDS: Acetaminophen 500 MG TAB 1000 MG PO (09:44)
[2022-09-06] MEDS: Gabapentin 300 MG CAP PO (09:46)
[2022-09-06] MEDS: Metoprolol CR 25 MG TABCR PO (09:46)
[2022-09-06] MEDS: Docusate Sodium 100 MG CAP PO (09:46)
[2022-09-06] MEDS: Midodrine 2.5 MG TAB 5 MG PO (09:46)
[2022-09-06] MEDS: Pantoprazole 40 MG TABCR PO (09:46)
[2022-09-06] MEDS: levoFLOXacin 500 MG, levoFLOXacin 250 MG 750 MG PO (09:46)
[2022-09-06] MEDS: guaiFENesin 600 MG TABCR 1200 MG PO (09:46)
[2022-09-06] MEDS: Digoxin 0.125 MG TAB PO (09:46)
[2022-09-06] MEDS: Cholecalciferol (Vitamin D3) 1,000 UNIT TAB 2000 UNITS PO (09:47)
[2022-09-06] MEDS: Polyethylene Glycol 3350 17 GM PACKET PO (09:48)
[2022-09-06] MEDS: Ferrous Gluconate 324 MG TAB PO (09:50)
[2022-09-06 15:30] LABS: Albumin 38.3 % (55.8-66.1); Albumin g/dL 2.1 g/dL (3.6-5.2); Comment (See Note); Total Protein 5.6 g/dL (6.3-8.2)
[2022-09-06 16:26] LABS: Immunotyping, Serum (See Note)
--- NOTE | 2022-09-08 15:38 | INDS_ITS ---
Date of service: 09/06/22 PT Notes Visit Reasons: L Intratrochanter Femoral Fracture Physical Therapy Inpatient Discharge Summary Date: 09/06/2022 Dates of service: 08/29/2022 through 09/05/2022 This is a clinical summary of care provided for the duration of dates listed above. No charge was made in the completion of this documentation. Referring Doctor: Gordy Chávez MD PT Orders: PT CONSULT: S/p Ortho surgery.? S/P IMN fixation of left hip fracture.? WBAT. Precautions: Fall. Standard.? WBAT on left LE with AD. Patient Profile/Admitting Diagnosis: Ilia is a 72-year-old male with complex co-morbid conditions as listed below. He presented to the ED on 08/28/2022 due to a fall at home which caused him to strike his left side.? Patient sustained a left intertrochanteric fracture and status post ORIF with IMN on postoperative day 1. PMHX: All Active Problems?(Updated 08/29/22 @ 13:36 by Mio Navarro MD) Diastolic heart failure (Acute) Closed intertrochanteric fracture of left femur (Acute) Overdose (Acute) Aspiration pneumonitis (Acute) Fall (Acute) Blunt head trauma (Acute) Contusion of elbow, left (Acute) Contusion of left leg (Acute) Closed fracture of left hip (Acute) Mild cognitive impairment (Acute) Advanced care planning/counseling discussion (Acute) Literacy level of illiterate (Acute) Palliative care encounter (Acute) Discharge planning issues (Acute) DVT prophylaxis (Acute) Acute exacerbation of chronic obstructive pulmonary disease (COPD) (Acute) Acute on chronic right-sided congestive heart failure (Acute) Pneumonia (Acute) Hypoxia (Acute) Depression (Chronic) Dental abscess (Acute) 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) Abnormal chest CT (Acute) Full code status (Acute) Urinary tract infection (Acute) 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 Abdominal pain Abnormal radiologic findings on diagnostic imaging of renal pelvis, ureter, or bladder Acute on chronic anemia Acute on chronic diastolic (congestive) heart failure Acute on chronic systolic CHF (congestive heart failure) [place] [facility] [place]x GI Cancer...EGD 04/2021 with friable mucosa. SDOne at that time because of GI blooed Afib Alcohol abuse Alcohol abuse, continuous drinking behavior Anemia Bilateral lower extremity edema CAD (coronary artery disease) of artery bypass graft Cerumen impaction CHF, acute on chronic Confusion state COVID-19 COVID-19 Diabetes mellitus Difficulty reading Edema Encounter for colorectal cancer screening Epididymitis, right (08/02/16) Essential hypertension Failure to thrive Fall GERD (gastroesophageal reflux disease) GI bleed GI bleeding H/O malignant neoplasm of stomach Heart failure, left, with LVEF 41-49% History of GI bleed Hoarseness Hydrocele, right (01/23/16) Hyperlipidemia Hypophosphatemia Kyphoscoliosis Low back pain Malnutrition Mild bibasilar atelectasis Pancreatitis Poor hygiene Prediabetes Protein malnutrition Pulmonary hypertension Recent weight loss Rib fractures Shortness of breath Solitary pulmonary nodule Tinnitus, left Tobacco abuse Weight loss Surgical History? Cardiac cath Coronary Artery Bypass Gaft (CABG) EGD - IV Sedation Esophagectomy H/O colonoscopy (2007) H/O colonoscopy (04/14/18) Dr geller, sigmoid diverticulosis, repeat 10 years History of esophagogastroduodenoscopy (EGD) (09/2017) History of hydrocelectomy History of right inguinal hernia repair repair times two Sugrical flap of unhealing wound Social History/Home Situation: Lives with a roommate in a private home with 4 steps to enter.? Uses single- point cane at baseline.? Uses Meals on Wheels.? Does not drive. Equipment Owned/DME: SPC, FWW Subjective: NT. See most recent GUARD [facility] notes. Objective: General Observation: NT. See most recent [facility] notes. Mental Status: NT. See most recent [facility] notes. Pain: NT. See most recent [facility] notes. ROM: Right Upper Extremity: ? Shoulder Flexion WFL. Shoulder abduction WFL. Elbow flexion WFL. Wrist flexion WFL. Functional opening and closing of hand WFL. Left Upper Extremity:? Shoulder Flexion WFL. Shoulder abduction WFL. Elbow flexion WFL. Wrist flexion WFL. Functional opening and closing of hand WFL. Right Lower Extremity: Hip flexion WFL. Hip abduction WFL. Knee flexion WFL. Ankle dorsiflexion WFL. Ankle plantarflexion WFL. Left Lower Extremity: Highly favoring L LE.? Did not want limb touched eventhough he needed the assistance. Strength: Right Upper Extremity: Shoulder flexors 3+/5. Shoulder abductors 3+/5. Elbow flexors 3+/5. Elbow extensors 3+/5. [employer] strong. Left Upper Extremity: Shoulder flexors 3+/5. Shoulder abductors 3+/5. Elbow flexors 3+/5. Elbow extensors 3+/5. [employer] strong. Right Lower Extremity: Hip flexors 3+/5. Hip abductors 3+/5. Knee flexors 3+/5. Knee extensors 3+/5. Ankle dorsiflexors 3+/5. Ankle plantarflexors 3+/5. Left Lower Extremity: NT BED MOBILITY/TRANSFERS? Supine-sit: Min A with HOB at 40 degrees Sit-stand: CGA? Stand-sit: CGA ? Chair-bed: CGA ? GAIT? Assistive Device: FWW? Weight bearing: WBAT L Assist: CGA? Distance: Stand-pivot transfer + 4 steps ? Deviation: Slow pacing, shuffling gait, cueing for posture, cueing for safet Balance: Static Sitting: Fair Dynamic Sitting: Fair Static Standing: Poor Dynamic Standing: Poor Special Tests: Mobility Limitations Standardized Measure [facility]-PAC 6 clicks Basic Mobility Inpatient Short Form: Raw Score: 12 ? CMS Score: 69% deficit? ? ? Assessment: Ilia is a 72-year-old male with complex co-morbid conditions as listed above. He presented to the ED on 08/28/2022 due to a fall at home which caused him to strike his left side.? Patient sustained a left intertrochanteric fracture and is status post ORIF with IMN on postoperative day 1. ? Pain limits mobility performance,? needs pre-medication.? Anxious and fearful of falling,? requires assist of 2 for transfers.? Significant functional mobility decline may require SNF placement. Patient presents with clinical signs and symptoms consistent with current/admitting diagnoses that have resulted to mobility limitations, gait instability, generalized weakness, and overall ADL decline as demonstrated by the following impairment level findings: 1.? Decreased strength to B UE/LE major muscle groups 2.? Impaired standing balance 3.? Impaired activity tolerance Impairments are contributing to the following functional limitations: 1.? Decline in bed mobility skills 2.? Decline in transfer skills 3.? Difficulty with ambulation without assistive device and physical assistance 4.? Increased completion time for mobility ADL performance 5.? Increased risk for falls 6.? Difficulty with managing steps alone safely Goals: Goals X1 week 1. Supine-Sit independent NOT MET 2. Sit-Supine independent NOT MET 3. Sit-Stand independent NOT MET 4. Stand-Sit independent with FWW NOT MET 5. Bed-Chair independent with FWW NOT MET 6. Chair-Bed independent with FWW NOT MET 7. Independent gait on level surface with use of FWW for at least 300 feet without report of pain nor dyspnea NOT MET 8. Independent stair negotiation while holding onto 1rail for at least 5 steps without report of pain nor dyspnea NOT MET 9. Independent with home exercise program NOT MET 10. Good static and dynamic standing balance/tolerance NOT MET DISCHARGE RECOMMENDATIONS: Patient will benefit from halfway facility placement for continued skilled physical therapy services in order to progress mobility level, strength, and balance in preparation for a safe discharge to home. TREATMENT CODE/TIME: IN Thank you for the opportunity to participate in the care of this patient. Savanna Banks PT, DPT, CLT [facility] [place], [place]
== END 2022-09-06 11:06 | disposition skilled nursing facility (03) | DRG 956 ==
LOC: SUR 14:21 → ER 14:21 → MS 14:22
PROVIDERS: Family Medicine; Internal Medicine; Student in an Organized Health Care Education/Training Program; Admitting Provider Family Medicine; Emergency Provider Emergency Medicine; PCP Family Medicine; Visit Provider Family Medicine
PROC: 0QS706Z Reposition Left Upper Femur with Intramedullary Internal Fixation Device, Open Approach (ICD-10-PCS; CPT 27245; principal; 2022-08-28 11:00)
DX: S72.142A Displaced intertrochanteric fracture of left femur, initial encounter for closed fracture (principal); S27.321A Contusion of lung, unilateral, initial encounter; I50.31 Acute diastolic (congestive) heart failure; E46 Unspecified protein-calorie malnutrition; Z68.1 Body mass index [BMI] 19.9 or less, adult; J44.0 Chronic obstructive pulmonary disease with (acute) lower respiratory infection; J84.10 Pulmonary fibrosis, unspecified; I25.10 Atherosclerotic heart disease of native coronary artery without angina pectoris; W18.39XA Other fall on same level, initial encounter; S50.02XA Contusion of left elbow, initial encounter; S20.212A Contusion of left front wall of thorax, initial encounter; G31.84 Mild cognitive impairment of uncertain or unknown etiology; Z55.0 Illiteracy and low-level literacy; F32.9 Major depressive disorder, single episode, unspecified; F10.21 Alcohol dependence, in remission; R33.9 Retention of urine, unspecified; R53.1 Weakness; I07.1 Rheumatic tricuspid insufficiency; I48.91 Unspecified atrial fibrillation; Z86.16 Personal history of COVID-19; E11.9 Type 2 diabetes mellitus without complications; Z85.028 Personal history of other malignant neoplasm of stomach; E78.5 Hyperlipidemia, unspecified; K21.9 Gastro-esophageal reflux disease without esophagitis; M54.50 Low back pain, unspecified; I27.20 Pulmonary hypertension, unspecified; F17.210 Nicotine dependence, cigarettes, uncomplicated; Z90.49 Acquired absence of other specified parts of digestive tract; I87.2 Venous insufficiency (chronic) (peripheral); I95.81 Postprocedural hypotension; E86.0 Dehydration; R41.0 Disorientation, unspecified; J20.9 Acute bronchitis, unspecified; Z85.01 Personal history of malignant neoplasm of esophagus; I11.0 Hypertensive heart disease with heart failure
CPT/HCPCS: 27245; 36415; 73552; 80048; 80053; 84145; 85027; 87635; 93005; 94640; 96365; 96366; 96375; 97110; 97162; 97167; 97530; 97535; 99223; 99285; J1650; 70450; 71045; 72125; 72131; 72170; 72192; 73080; 73501; 73502; 73590; 73630; 80162; 81003; 82607; 82728; 82746; 83540; 83550; 83735; 84100; 84165; 84484; 85025; 85610; 85730; 86320; 87070; 87205; 93010; 94664; 94667; 94668; 94760; 99232; 99233; 99239; J0131; J0690; J1160; J1756; J2250; J2405; J3010; J3490; J7613

== ENCOUNTER 2022-09-08 16:07 | Outpatient (REF) | payer MEDICARE, MEDICAID, SELFPAY ==
[2022-09-08 17:53] LABS: Iron 60 ug/dL (65-175); Total Iron Binding Capacity 291 ug/dL (250-450); Transferrin Sat 21 % (20-55)
[2022-09-08 17:54] LABS: Digoxin 1.03 ng/mL (0.90-2.00); Hemoglobin A1C 5.9 % (<5.7)
[2022-09-08 18:16] LABS: Vitamin D 25 Total 52.8 ng/mL (30-100)
[2022-09-08 18:22] LABS: ALT 18 U/L (16-63); AST 25 U/L (15-37); Albumin 2.3 g/dL (3.4-5.0); Alkaline Phosphatase 233 U/L (46-116); Anion Gap 9.9 mmol/L (3-11); BUN 35 mg/dL (7-18); Bilirubin, Total 0.4 mg/dL (0.2-1.0); CO2 24.1 mmol/L (21.0-32.0); CREATININE 1.1 mg/dL (0.70-1.30); Calcium 8.8 mg/dL (8.5-10.1); Chloride 112 mmol/L (98-107); Estimated GFR 71.32 (mL/min/1.73m2); Ferritin 239 ng/mL (26-388); Folate 11.1 ng/mL (8.6-20.0); Glucose 133 mg/dL (74-106); Magnesium 2.1 mg/dL (1.8-2.4); Potassium 4.4 mmol/L (3.5-5.1); Sodium 146 mmol/L (136-145); TSH (W/Ref FT4) 2.94 uIU/mL (0.36-3.74); Total Protein 6.4 g/dL (6.4-8.2); Vitamin B12 688 pg/mL (193-986)
[2022-09-08 18:41] LABS: NT-proBNP 8145 pg/mL (<300)
[2022-09-09 14:56] LABS: Absolute Basophil Count 0.04 10^3/uL (0.0-0.2); Absolute Eosinophil Count 0.21 10^3/uL (0.0-0.7); Absolute Monocyte Count 0.55 10^3/uL (0.1-0.8); Absolute Neutrophil Count 9.22 10^3/uL (1.2-6.7); Basophils % 0.3; Eosinophils % 1.8; HCT 38.5 % (40.0-50.0); HGB 11.9 g/dL (13.5-17.5); Immature Grans % 4.3; Lymphocytes % 9.9; MCH 30.3 pg (27.0-33.0); MCHC 30.9 % (32.0-36.0); MCV 98 fL (80-95); MPV 9.8 fL (8.0-11.0); Monocytes % 4.7; Platelet Count 408 10^3/uL (130-400); RBC 3.93 10^6/uL (4.36-5.78); RDW 17.2 % (11.8-14.1); RDW-SD 58.5 fL; WBC 11.67 10^3/uL (4.4-10.8)
[2022-09-09 15:01] LABS: Absolute Lymphocyte Count 1.16 10^3/uL (1.2-3.4)
== END 2022-09-08 16:08 | disposition home or self-care (01) ==
LOC: LBN 16:07
PROVIDERS: PCP Family Medicine; Visit Provider Nurse Practitioner Gerontology
DX: R68.89 Other general symptoms and signs (principal)
CPT/HCPCS: 80053; 82306; 80162; 82607; 82728; 82746; 83036; 83540; 83550; 83735; 83880; 84443; 85025

== ENCOUNTER 2022-09-14 18:11 | Outpatient (REF) | payer MEDICARE, MEDICAID, SELFPAY ==
[2022-09-14 18:33] LABS: Abs Immature Grans 0.09 10^3/uL (0.0-0.06); Absolute Basophil Count 0.02 10^3/uL (0.0-0.2); Absolute Eosinophil Count 0.17 10^3/uL (0.0-0.7); Absolute Lymphocyte Count 1.14 10^3/uL (1.2-3.4); Absolute Monocyte Count 0.63 10^3/uL (0.1-0.8); Absolute Neutrophil Count 5.69 10^3/uL (1.2-6.7); Basophils % 0.3; Eosinophils % 2.2; HCT 34.8 % (40.0-50.0); HGB 10.7 g/dL (13.5-17.5); Immature Grans % 1.2; Lymphocytes % 14.7; MCH 30.3 pg (27.0-33.0); MCHC 30.7 % (32.0-36.0); MCV 99 fL (80-95); MPV 9.4 fL (8.0-11.0); Monocytes % 8.1; Neutrophils % 73.5; Platelet Count 402 10^3/uL (130-400); RBC 3.53 10^6/uL (4.36-5.78); RDW 17.8 % (11.8-14.1); RDW-SD 63.1 fL; WBC 7.74 10^3/uL (4.4-10.8)
[2022-09-14 19:00] LABS: ALT 21 U/L (16-63); AST 24 U/L (15-37); Albumin 2.3 g/dL (3.4-5.0); Alkaline Phosphatase 254 U/L (46-116); Anion Gap 7.9 mmol/L (3-11); BUN 27 mg/dL (7-18); Bilirubin, Total 0.5 mg/dL (0.2-1.0); CO2 24.1 mmol/L (21.0-32.0); CREATININE 0.9 mg/dL (0.70-1.30); Calcium 8.5 mg/dL (8.5-10.1); Chloride 110 mmol/L (98-107); Estimated GFR 90.74 (mL/min/1.73m2); Glucose 62 mg/dL (74-106); NT-proBNP 6697 pg/mL (<300); Potassium 5.1 mmol/L (3.5-5.1); Sodium 142 mmol/L (136-145); Total Protein 6.5 g/dL (6.4-8.2)
[2022-09-14 19:17] LABS: Digoxin 1.56 ng/mL (0.90-2.00)
== END 2022-09-14 18:12 | disposition home or self-care (01) ==
LOC: LBN 18:11
PROVIDERS: PCP Family Medicine; Visit Provider Nurse Practitioner Gerontology
DX: J44.1 Chronic obstructive pulmonary disease with (acute) exacerbation (principal); S72.142D Displaced intertrochanteric fracture of left femur, subsequent encounter for closed fracture with routine healing; X58.XXXD Exposure to other specified factors, subsequent encounter
CPT/HCPCS: 80053; 80162; 83880; 85025

== ENCOUNTER → 2022-09-21 13:52 | Outpatient (BNVA) | payer MEDICARE, MEDICAID, SELFPAY | PROVIDERS: PCP Family Medicine; Visit Provider Nurse Practitioner Gerontology | DX: R33.9 Retention of urine, unspecified (principal); I11.0 Hypertensive heart disease with heart failure; I50.9 Heart failure, unspecified | CPT/HCPCS: 51798; 99213 ==

== ENCOUNTER 2022-10-07 09:20 | Outpatient (CLI) | payer MEDICARE, MEDICAID, SELFPAY ==
--- NOTE | 2022-10-07 09:15 | RT.EKG_ITS ---
APPROVED REPORT Exam: Resting ECG Reason for Exam: afib Patient Location: O HR:57 bpm ECG Measurements Heart Rate 57 AXIS AK [id number] P [id number] QRSd 102 QRS 98 QT 417 T -77 QTc 406 Conclusion Atrial fibrillation...V-rate 52- 65, irreg A-activity Anterior infarct, old...Q >40mS, abnormal ST-T, V2-V5 Low voltage
== END 2022-10-07 09:21 | disposition home or self-care (01) ==
LOC: DI.CARD 09:22
PROVIDERS: PCP Family Medicine; Visit Provider Internal Medicine Cardiovascular Disease
DX: I48.91 Unspecified atrial fibrillation (principal); I48.92 Unspecified atrial flutter
CPT/HCPCS: 93010

== ENCOUNTER → 2022-10-07 13:42 | Outpatient (BNVA) | payer MEDICARE, MEDICAID, SELFPAY | PROVIDERS: PCP Family Medicine; Referring Provider Family Medicine; Visit Provider Internal Medicine Cardiovascular Disease | DX: I25.810 Atherosclerosis of coronary artery bypass graft(s) without angina pectoris (principal); J43.9 Emphysema, unspecified; J84.10 Pulmonary fibrosis, unspecified; I48.21 Permanent atrial fibrillation | CPT/HCPCS: 93005; 99203; 99214 ==

== ENCOUNTER 2022-10-22 22:17 | Inpatient (IN) | payer MEDICARE, MEDICAID, SELFPAY ==
[2022-10-22] VITALS (38 sets, daily range): BP systolic 67–82; BP diastolic 40–62; PULSE 75–95; RESP 2–29; TEMP 37.1; O2SAT 77–93
--- NOTE | 2022-10-22 22:15 | RT.EKG_ITS ---
APPROVED REPORT Exam: Resting ECG Reason for Exam: respiratory distress Patient Location: E HR:86 bpm ECG Measurements Heart Rate 86 AXIS MD [id number] P [id number] QRSd 78 QRS 124 QT 362 T -12 QTc 433 Conclusion Atrial fibrillation...V-rate 72- 96, irreg A-activity Repol abnrm suggests ischemia, diffuse leads...ST-T neg, ant/lat/inf
--- NOTE | 2022-10-22 22:30 | DI.RAD_ITS ---
Exam(s) XR PORTABLE CHEST AP EXAM: XR PORTABLE CHEST AP CLINICAL HISTORY: respiratory distress TECHNIQUE: 2D digital imaging was performed of the chest. One image was obtained. An AP view was ob tained. COMPARISON: CR XR PORTABLE CHEST AP from 09/02/2022 FINDINGS: MEDIASTINUM: Normal. HEART: Cardiomegaly. PULMONARY VASCULATURE: There is mild overall prominence of the interstitium. LUNGS: There are patchy infiltrate seen in the lung bases bilaterally. PLEURAL SPACE: There is blunting of the left costophrenic angle which may represent a small effusion. No right pleural effusion or pneumothorax is identified. BONE:Within normal limits for the patient's age. Sternal wires are in place. OTHER FINDINGS:Normal. IMPRESSION: 1. Cardiomegaly and prominence of the interstitium which may represent congestive heart failure/fluid overload. 2. Bilateral patchy infiltrates in the lung bases suspicious for pneumonia. Consider aspiration. 3. Question of a small left pleural effusion. DATA REPOSITORY: RADIATION DOSE DELIVERED:
[2022-10-22] MEDS: Levalbuterol 1.25 MG/3 ML UPD VIAL UPD (22:40)
[2022-10-22] MEDS: Ipratropium 0.5 MG/2.5 ML UPD VIAL UPD (22:41)
[2022-10-22 22:42] LABS: Abs Immature Grans 0.05 10^3/uL (0.0-0.06); Absolute Basophil Count 0.06 10^3/uL (0.0-0.2); Absolute Eosinophil Count 0.02 10^3/uL (0.0-0.7); Absolute Monocyte Count 0.72 10^3/uL (0.1-0.8); Absolute Neutrophil Count 10.19 10^3/uL (1.2-6.7); Basophils % 0.5; Eosinophils % 0.2; HCT 43.3 % (40.0-50.0); HGB 13.6 g/dL (13.5-17.5); Immature Grans % 0.4; Lymphocytes % 5.2; MCH 30.8 pg (27.0-33.0); MCHC 31.4 % (32.0-36.0); MCV 98 fL (80-95); MPV 9.6 fL (8.0-11.0); Monocytes % 6.2; Neutrophils % 87.5; Platelet Count 264 10^3/uL (130-400); RBC 4.42 10^6/uL (4.36-5.78); RDW 16.6 % (11.8-14.1); RDW-SD 60.7 fL; WBC 11.64 10^3/uL (4.4-10.8)
[2022-10-22 22:43] LABS: BE (Venous) -7 mmol/L (-2-3); HCO3 (Venous) 19 mmol/L (23-28); O2 Sat (Venous) 68 %; TCO2 (Venous) 18 mmol/L (24-29); pCO2 (Venous) 38 mmHg (41-51); pH (Venous) 7.32 (7.31-7.41); pO2 (Venous) 40 mmHg
--- NOTE | 2022-10-22 22:43 | ED.GENADUL_ITS ---
Discharge Plan Disposition Patient Disposition: Admit to [facility] Condition: Serious Discharge Details Chief Complaint: RespSymp Clinical Impression: CHF (congestive heart failure), Hypoxia, Hypotension Primary Care Provider: Silvina Perdue ED Provider: Mio Hu Home Meds and New Rx's Prescriptions: No Action Boost Breeze Nutritional 0.04-1.05 gram-kcal/mL liquid 50 ml PO BID Nicotrol 10 mg cartridge 1 inh inhalation 4-6XD PRN guaifenesin [Robafen] 100 mg/5 mL liquid 200 mg PO Q4H PRN aspirin 81 mg capsule 162 mg PO DAILY polyethylene glycol 3350 17 gram powder in packet 17 g PO DAILY sennosides [Senokot] 8.6 mg tablet 17.2 mg PO HS albuterol sulfate 90 mcg/actuation HFA aerosol inhaler 2 puff inhalation Q4H PRN loperamide 2 mg capsule 4 mg PO .COMPLEX PRN Rx Instructions: 4 mg orally after first loose stool, then 1 capsule after subsequent loose stools. Maximum daily dose is 16mg PRN; gabapentin 300 mg capsule 300 mg PO TID Patient Comments: Take 1 capsule by mouth three times a day One Daily Multi-Vit w-Mineral 4.5 mg iron tablet 1 tab PO DAILY cholecalciferol (vitamin D3) 50 mcg (2,000 unit) tablet 50 mcg PO DAILY tamsulosin 0.4 mg capsule 0.4 mg PO HS Stiolto Respimat 2.5-2.5 mcg/actuation mist 2 puff INHALATION DAILY atorvastatin 10 mg tablet 10 mg PO HS acetaminophen 500 mg Tablet 1,000 mg PO TID Qty: 0 0RF digoxin 125 mcg (0.125 mg) Tablet 0.125 mg PO DAILY Qty: 0 0RF ferrous gluconate 324 mg (38 mg iron) Tablet 324 mg PO BID@1000,2200 Qty: 0 0RF metoprolol succinate 25 mg Tablet Extended Release 24 Hr 25 mg PO DAILY Qty: 0 0RF Rx Instructions: hold for SBP<100 or HR<60 midodrine 5 mg Tablet 5 mg PO TID Qty: 0 0RF mirtazapine 7.5 mg tablet 7.5 mg PO HS Qty: 0 0RF Patient Comments: Take 1 tablet by mouth at bedtime pantoprazole 40 mg tablet,delayed release (DR/EC) 40 mg PO BID Medical Decision Making 72-year-old male history of COPD, CHF, coronary disease, A-fib, presents in respiratory distressSaturating 67% on room air upon EMS arrival; placed on CPAP with improvement to the 80s, presents with tachypnea and persistent hypoxia, minimal ankle edema bilaterally, bedside ultrasound showing B-lines diffusely, portable x-ray showing what looks like pulmonary edema and developing pleural effusion, however patient clinically appears dry with dry skin and minimal edema and hypotension, patient is also on midodrine beta-sony and digoxin which complicate resuscitation of suspected CHF exacerbation; will trial 40 of Lasix will continue with BiPAP, will also treat for mixed COPD exacerbation as a potential etiology with nebs and dexamethasone. Must also consider pneumonia versus PE. Screening labs imaging ICU admission 23: 03 saturating 91% on BiPAP, given improvement of oxygenation and low CO2 have switched patient setting to CPAP given more likely CHF picture. Pending labs and imaging to admit to ICU 11: 55 given soft BPs throughout stay central line has been placed. Patient also received CT angio chest to assess for PE. HPI General Date/Time Provider Initiated Documentation: 10/22/22 22:25 . HPI Narrative: 72-year-old male history of coronary disease CHF COPD, A-fib, presents with shortness of breath and hypoxia saturating in the 60s on room air placed on CPAP by EMS Related Data Home Medications Medication Instructions Recorded Confirmed gabapentin 300 mg capsule 300 mg PO TID 07/19/22 10/22/22 atorvastatin 10 mg tablet 10 mg PO HS 08/28/22 10/22/22 cholecalciferol (vitamin D3) 50 50 mcg PO DAILY 08/28/22 10/22/22 mcg (2,000 unit) tablet multivitamin with minerals-ferrous 1 tab PO DAILY 08/28/22 10/22/22 sulfate 4.5 mg iron tablet (One Daily Multivitamins with Minerals) tamsulosin 0.4 mg capsule 0.4 mg PO HS 08/28/22 10/22/22 tiotropium 2.5 mcg-olodaterol 2.5 2 puff inhalation DAILY 08/28/22 10/22/22 mcg/actuation mist for inhalation (Stiolto Respimat) acetaminophen 500 mg tablet 1,000 mg PO TID #0 tabs 09/06/22 10/22/22 digoxin 125 mcg (0.125 mg) tablet 0.125 mg PO DAILY #0 tabs 09/06/22 10/22/22 ferrous gluconate 324 mg (38 mg 324 mg PO BID@1000,2200 #0 tabs 09/06/22 10/22/22 iron) tablet metoprolol succinate 25 mg 25 mg PO DAILY #0 tabs 09/06/22 10/22/22 tablet,extended release 24 hr midodrine 5 mg tablet 5 mg PO TID #0 tabs 09/06/22 10/22/22 mirtazapine 7.5 mg tablet 7.5 mg PO HS #0 tabs 09/06/22 10/22/22 food supplemt, lactose-reduced 50 ml PO BID 09/22/22 10/22/22 0.04 gram-1.05 kcal/mL oral liquid (Boost Breeze Nutritional) guaifenesin 100 mg/5 mL oral 200 mg PO Q4H PRN 09/22/22 10/22/22 liquid (Robafen) nicotine 10 mg inhalation 1 inh inhalation 4-6XD PRN 09/22/22 10/22/22 cartridge (Nicotrol) albuterol sulfate 90 mcg/actuation 2 puff inhalation Q4H PRN 10/05/22 10/22/22 aerosol inhaler aspirin 81 mg capsule 162 mg PO DAILY 10/05/22 10/22/22 loperamide 2 mg capsule 4 mg PO .COMPLEX PRN 10/05/22 10/22/22 pantoprazole 40 mg tablet,delayed 40 mg PO BID 10/05/22 10/22/22 release polyethylene glycol 3350 17 gram 17 g PO DAILY 10/05/22 10/22/22 oral powder packet sennosides 8.6 mg tablet (Senokot) 17.2 mg PO HS 10/05/22 10/22/22 Previous Rx's Medication Instructions Recorded acetaminophen 500 mg tablet 1,000 mg PO TID #0 tabs 09/06/22 digoxin 125 mcg (0.125 mg) tablet 0.125 mg PO DAILY #0 tabs 09/06/22 ferrous gluconate 324 mg (38 mg 324 mg PO BID@1000,2200 #0 tabs 09/06/22 iron) tablet metoprolol succinate 25 mg 25 mg PO DAILY #0 tabs 09/06/22 tablet,extended release 24 hr midodrine 5 mg tablet 5 mg PO TID #0 tabs 09/06/22 mirtazapine 7.5 mg tablet 7.5 mg PO HS #0 tabs 09/06/22 Allergies Allergy/AdvReac Type Severity Reaction Status Date / Time No Known Allergies Allergy Verified 10/22/22 22:41 General Stated Complaint: RespSymp ANAMIKA: 1 Review of Systems Narrative: Review of Systems Constitutional: negative Eyes: negative ENT: negative Cardiovascular: negative Respiratory: Shortness of breath Gastrointestinal: negative : negative Musculoskeletal: negative Skin: negative Neurologic: negative Psych: negative PFSH All Active Problems (Updated 10/23/22 @ 00:14 by Shakila Mayberry MD) Discharge planning issues (Acute) Hypotension (Acute) DNR (do not resuscitate) (Acute) DNR, but would like trial of intubation. See 09/26 Note History of fracture of left hip (Acute) S/P IM NAIL DOS: 08/28/22 Acute bronchitis (Acute) Left foot pain (Acute) Palliative care patient (Acute) Underweight (Acute) Diastolic heart failure (Chronic) Closed intertrochanteric fracture of left femur (Acute) s/p IMN fixation (08/28/22) Fall (Acute) Blunt head trauma (Acute) Contusion of elbow, left (Acute) Contusion of left leg (Acute) Closed fracture of left hip (Acute) Mild cognitive impairment (Acute) Advanced care planning/counseling discussion (Acute) Literacy level of illiterate (Acute) Palliative care encounter (Acute) DVT prophylaxis (Acute) Acute exacerbation of chronic obstructive pulmonary disease (COPD) (Acute) Acute on chronic right-sided congestive heart failure (Acute) Pneumonia (Acute) Hypoxia (Acute) Depression (Chronic) Dental abscess (Acute) 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) Abnormal chest CT (Acute) Full code status (Acute) Urinary tract infection (Acute) 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) CAP (community acquired pneumonia) (Acute) Generalized weakness (Acute) Skin tear of left elbow without complication (Acute) Chronic obstructive lung disease (Chronic) Tricuspid regurgitation (Chronic) CAD (coronary artery disease) (Chronic) Hypertension (Chronic) Medical History Abdominal pain Abnormal radiologic findings on diagnostic imaging of renal pelvis, ureter, or bladder Acute on chronic anemia Acute on chronic diastolic (congestive) heart failure Acute on chronic systolic CHF (congestive heart failure) Adenocarcinoma of esophagus From [facility]:Hx GI Cancer...EGD 04/2021 with friable mucosa. SDOne at that time because of GI blooed Afib Alcohol abuse Alcohol abuse, continuous drinking behavior Anemia Bilateral lower extremity edema CAD (coronary artery disease) of artery bypass graft Cerumen impaction CHF, acute on chronic Closed intertrochanteric fracture Confusion state COVID-19 COVID-19 Diabetes mellitus Difficulty reading Edema Encounter for colorectal cancer screening Epididymitis, right (08/02/16) Essential hypertension Failure to thrive Fall GERD (gastroesophageal reflux disease) GI bleed GI bleeding H/O malignant neoplasm of stomach Heart failure, left, with LVEF 41-49% History of GI bleed Hoarseness Hydrocele, right (01/23/16) Hyperlipidemia Hypophosphatemia Kyphoscoliosis Low back pain Malnutrition Mild bibasilar atelectasis Pancreatitis Poor hygiene Prediabetes Protein malnutrition Pulmonary hypertension Recent weight loss Rib fractures Shortness of breath Solitary pulmonary nodule Tinnitus, left Tobacco abuse Weight loss Surgical History cardiac cath Coronary Artery Bypass Gaft (CABG) EGD - IV Sedation Esophagectomy H/O colonoscopy (2007) H/O colonoscopy (04/14/18) dr geller, sigmoid diverticulosis, repeat 10 years History of esophagogastroduodenoscopy (EGD) (09/2017) History of hydrocelectomy History of right inguinal hernia repair repair times two sugrical flap of unhealing wound Family History Mother No problems noted. Father No problems noted. Social History Smoking/Tobacco Use Status: Unknown Smoking risk assessment performed?: Yes Alcohol Intake: former Drug use: Never Substance use type: does not use Current gender identity: male What type of physical activity do you participate in: none Do you feel safe at home: Yes Do you feel safe in your relationship?: Yes Exam Narrative Exam Narrative: Physical Examination General: alert, awake, cooperative, respiratory distress HEENT: normocephalic, atraumatic; PERRL, EOM intact, conjunctiva normal; no nasal discharge Neck: supple, trachea midline; full ROM Chest: normal to inspection Respiratory: Tachypnea quiet lung sounds bilaterally Cardiac: regular rate, regular rhythm, S1S2 intact, no murmurs rubs or gallops GI: abdomen soft, non-tender, non-distended; no palpable mass or hepatosplenomegaly Skin: Dry Neuro: Alert, moving all extremities following commands Extremities: Minimal ankle edema bilaterally Psych: Appropriate mood and affect Course Vital Signs Vital signs: Vital Signs Temperature 37.1 C 10/22/22 22:26 Pulse 91 H 10/22/22 22:26 Respiratory Rate 24 10/22/22 22:26 Blood Pressure 76/48 L 10/22/22 22:26 Pulse Oximetry 82 L 10/22/22 22:26 Temperature 37.1 C 10/22/22 22:26 Temperature Source Axillary 10/22/22 22:26 Pulse 89 10/22/22 22:41 Respiratory Rate 23 10/22/22 22:41 Respiratory Effort Normal, Non-Labored 10/22/22 22:32 Respiratory Depth Normal 10/22/22 22:32 Blood Pressure 76/48 L 10/22/22 22:26 Blood Pressure Position Sitting 10/22/22 22:26 Pulse Oximetry 86 L 10/22/22 22:41 Oxygen Delivery Method Bi-pap 10/22/22 22:41 Fraction of Inspired Oxygen (FIO2) 100 10/22/22 22:41 Pain Level 0 10/22/22 22:26 Procedures Central Line Placement Right IJ: Time Out Performed: Yes Patient Placed on Monitor/Pulse Ox: Yes MD Prep: mask, gown and gloves Central Line Prep: Chlorhexidine scrub Local Anesthetic: Lidocaine 1% Amount of anesthesia used (mL): 3 Ultrasound Used for Placement: Yes Central Line Lumen Inserted: triple Post Procedure: good blood return and all ports aspirated, flushed, capped Patient Tolerated Procedure: well Complications: none
[2022-10-22 22:44] LABS: Absolute Lymphocyte Count 0.61 10^3/uL (1.2-3.4)
[2022-10-22 22:50] LABS: Diff Comment Agrees w/ Instrument
[2022-10-22 22:57] LABS: INR 1.1 (0.9-1.1); Prothrombin Time 11.6 sec (9.3-11.0)
[2022-10-22] MEDS: Levalbuterol 1.25 MG/3 ML UPD VIAL (22:58)
[2022-10-22] MEDS: Ipratropium 0.5 MG/2.5 ML UPD VIAL (22:59)
[2022-10-22 23:09] LABS: ALT 22 U/L (16-63); AST 25 U/L (15-37); Albumin 2.9 g/dL (3.4-5.0); Alkaline Phosphatase 157 U/L (46-116); Anion Gap 14.3 mmol/L (3-11); BUN 34 mg/dL (7-18); Bilirubin, Total 0.7 mg/dL (0.2-1.0); CO2 20.7 mmol/L (21.0-32.0); CREATININE 1.5 mg/dL (0.70-1.30); Calcium 8.7 mg/dL (8.5-10.1); Chloride 107 mmol/L (98-107); Estimated GFR 49.16 (mL/min/1.73m2); Glucose 120 mg/dL (74-106); Magnesium 1.6 mg/dL (1.8-2.4); NT-proBNP 5144 pg/mL (<300); Potassium 4.1 mmol/L (3.5-5.1); Sodium 142 mmol/L (136-145); TSH (W/Ref FT4) 1.89 uIU/mL (0.36-3.74); Total Protein 7.5 g/dL (6.4-8.2); Troponin I < 50 ng/L (<or=60)
--- NOTE | 2022-10-22 23:20 | DI.VRAD_ITS ---
PROCEDURE INFORMATION: Exam: XR Chest Exam date and time: 10/22/2022 10:44 PM Age: 72 years old Clinical indication: Other: Respiratory distress; Prior surgery; Surgery date: 6+ months; Surgery type: Cabg TECHNIQUE: Imaging protocol: Radiologic exam of the chest. Views: 1 view. COMPARISON: CR XR PORTABLE CHEST AP 09/02/2022 10:04 AM FINDINGS: Lungs: Patchy infiltrates at the lung bases bilaterally may represent acute pneumonia. Consider aspiration. There is pulmonary venous congestion. There is diffuse interstitial edema. Underlying inflammatory or infectious process not excluded. Pleural spaces: Probable left pleural effusion present. No evidence of pneumothorax. Heart/Mediastinum: The heart is enlarged. There is prominence of the mediastinum. The aorta demonstrates moderate atherosclerotic calcification. Bones/joints: Sternotomy wires and mediastinal surgical clips are present, consistent with previous coronary arterial bypass grafting. The skeletal structures and soft tissues show no evidence of fracture or other acute processes. Soft tissues: The soft tissues of the extrathoracic region are unremarkable. Intraperitoneal space: Surgical changes present within the left upper quadrant of the abdomen and left lower chest. IMPRESSION: 1. Probable congestive heart failure. Underlying inflammatory or infectious process not excluded. 2. Patchy infiltrates at the lung bases bilaterally may represent acute pneumonia. Consider aspiration. 3. Probable left pleural effusion present. Dictated and Authenticated by: aZin Bull MD. Ordering:DESIREE Lieberman MD
[2022-10-22] MEDS: Furosemide 40 MG/4 ML VIAL IVP (23:22)
[2022-10-22] MEDS: Dexamethasone 10 MG/ML VIAL IVP (23:23)
--- NOTE | 2022-10-22 23:28 | HPE_ITS ---
Date of service: 10/22/22 Time of Service: 23:28 Assessment and Plan Assessment and plan (1) Acute respiratory failure with hypoxia: Status: Acute Assessment and plan: Due to acute exacerbation of CHF, COPD, likely underlying pneumonia, pulmonary fibrosis. Continue CPAP therapy. Scheduled + prn nebs. Steroids. Abx. Monitor I/O's and daily weights. Monitor in the ICU. (2) Septic shock: Status: Acute Assessment and plan: In setting of a UTI and likely PNA. Treat with abx, vasopressors, monitor in the ICU. Would not tolerate IVF at this time given concurrent fluid overload. (3) Pneumonia: Status: Acute Assessment and plan: present on admission. Possibly seen on CXR. Await CTA chest to have a better look. Tx w/ vancomycin/cefepime. Obtain urine strep, legionella antigens and sputum for mycoplasma. Obtain MRSA nares. (4) Urinary tract infection: Status: Acute Assessment and plan: Present on admission. W/ h/o prior UTIs and urinary retention. Has previously grown Klebsiella, pseudomonas. Will cover with cefepime. Would benefit from US renal. (5) Acute on chronic right-sided congestive heart failure: Status: Acute Assessment and plan: s/p a dose of furosemide in the ED. Will abstain from further diuresis at this time given low BPs. Monitor I/O's, daily weights. (6) Acute exacerbation of chronic obstructive pulmonary disease (COPD): Status: Acute Assessment and plan: I think this is relatively mild but could certainly be contributing to hypoxia. Treat with steroids, scheduled + prn nebs. Treat suspected PNA. (7) History of fracture of left hip: Status: Acute Assessment and plan: Would increase his risk of having a DVT/PE. Obtain CTA chest, venous dopplers BLEs. C/s PT. (8) Acute kidney injury: Status: Acute Assessment and plan: In setting of hypotension, h/o urinary retention, UTI, pulmonary hypertension. Cervantes placed in the ER. Will monitor UOP. Vasopressor support. I think it is safe for the patient to undergo a CTA of his chest. (9) Hypomagnesemia: Status: Resolved Assessment and plan: Replete, recheck in am. (10) Discharge planning issues: Status: Acute Assessment and plan: DNR C/s PT c/s palliative care. Admit to ICU. Total Critical Care Time 60 minutes. (11) DVT prophylaxis: Status: Acute Assessment and plan: Will plan for heparin SC for now unless a VTE is proven by either CTA or venous dopplers. The patient does have a h/o GI bleeding, is on PPI BID, and there is a low threshold to stop the chemical DVT ppx. History of Present Illness History of Present Illness Chief Complaint: Shortness of breath Narrative: Mr Kang is a 72 year old male with PMHx of CAD s/p CABG, Afib not on anticoagulation due to h/o GI bleeding, R-sided CHF, pulmonary hypertension, COPD, pulmonary fibrosis, who was brought to [facility] ED by ambulance for shortness of breath. Per ER provider, his O2 sats were 67% on RA for EMS, so he was placed on CPAP and transported to [facility]. Here, he was saturating in high 70s - low 80s on BiPAP with FiO2 of 100%. He was hypotensive with SBPs in the 70s. His clinical picture was consistent with acute CHF as well as possible COPD exacerbation, though the latter was less clear. His POCUS of the lungs revealed B lines and pleural effusions, as performed by the ER provider. He was administered 40 mg of IV furosemide. UOP since then is unclear as cervantes catheter is being placed right now. The patient is also getting a central line with plans to initiate norepinephrine. A hospitalist admission to the ICU was requested. When I came to examine the patient, he was wearing a CPAP mask. He did state that he knew he was in the hospital and that his shortness of breath was getting better. He also denied any pain. Otherwise, his interview was limited due to his need to wear a CPAP mask. He is DNR. Review of Systems Narrative: ROS limited due to the patient being on CPAP. All systems reviewed & are unremarkable except as noted in HPI and below PFSH All Active Problems (Updated 10/23/22 @ 00:37 by Shakila Mayberry MD) Acute kidney injury (Acute) Discharge planning issues (Acute) Hypotension (Acute) DNR (do not resuscitate) (Acute) DNR, but would like trial of intubation. See 09/26 Note History of fracture of left hip (Acute) S/P IM NAIL DOS: 08/28/22 Acute bronchitis (Acute) Left foot pain (Acute) Palliative care patient (Acute) Underweight (Acute) Diastolic heart failure (Chronic) Closed intertrochanteric fracture of left femur (Acute) s/p IMN fixation (08/28/22) Fall (Acute) Blunt head trauma (Acute) Contusion of elbow, left (Acute) Contusion of left leg (Acute) Closed fracture of left hip (Acute) Mild cognitive impairment (Acute) Advanced care planning/counseling discussion (Acute) Literacy level of illiterate (Acute) Palliative care encounter (Acute) Acute respiratory failure with hypoxia (Acute) DVT prophylaxis (Acute) Acute exacerbation of chronic obstructive pulmonary disease (COPD) (Acute) Acute on chronic right-sided congestive heart failure (Acute) Pneumonia (Acute) Septic shock (Acute) Hypoxia (Acute) Depression (Chronic) Dental abscess (Acute) 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) Abnormal chest CT (Acute) Full code status (Acute) Urinary tract infection (Acute) 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) CAP (community acquired pneumonia) (Acute) Generalized weakness (Acute) Skin tear of left elbow without complication (Acute) Chronic obstructive lung disease (Chronic) Tricuspid regurgitation (Chronic) CAD (coronary artery disease) (Chronic) Hypertension (Chronic) Medical History Abdominal pain Abnormal radiologic findings on diagnostic imaging of renal pelvis, ureter, or bladder Acute on chronic anemia Acute on chronic diastolic (congestive) heart failure Acute on chronic systolic CHF (congestive heart failure) [place] [facility] [place]EGD 04/2021 with friable mucosa. SDOne at that time because of GI blooed Afib Alcohol abuse Alcohol abuse, continuous drinking behavior Anemia Bilateral lower extremity edema CAD (coronary artery disease) of artery bypass graft Cerumen impaction CHF, acute on chronic Closed intertrochanteric fracture Confusion state COVID-19 COVID-19 Diabetes mellitus Difficulty reading Edema Encounter for colorectal cancer screening Epididymitis, right (08/02/16) Essential hypertension Failure to thrive Fall GERD (gastroesophageal reflux disease) GI bleed GI bleeding H/O malignant neoplasm of stomach Heart failure, left, with LVEF 41-49% History of GI bleed Hoarseness Hydrocele, right (01/23/16) Hyperlipidemia Hypophosphatemia Kyphoscoliosis Low back pain Malnutrition Mild bibasilar atelectasis Pancreatitis Poor hygiene Prediabetes Protein malnutrition Pulmonary hypertension Recent weight loss Rib fractures Shortness of breath Solitary pulmonary nodule Tinnitus, left Tobacco abuse Weight loss Surgical History cardiac cath Coronary Artery Bypass Gaft (CABG) EGD - IV Sedation Esophagectomy H/O colonoscopy (2007) H/O colonoscopy (04/14/18) dr geller, sigmoid diverticulosis, repeat 10 years History of esophagogastroduodenoscopy (EGD) (09/2017) History of hydrocelectomy History of right inguinal hernia repair repair times two sugrical flap of unhealing wound Family History Mother No problems noted. Father No problems noted. Social History Smoking/Tobacco Use Status: Unknown Smoking risk assessment performed?: Yes Alcohol Intake: former Drug use: Never Substance use type: does not use Current gender identity: male What type of physical activity do you participate in: none Do you feel safe at home: Yes Do you feel safe in your relationship?: Yes Meds Allergies and Home Medications Allergies Allergy/AdvReac Type Severity Reaction Status Date / Time No Known Allergies Allergy Verified 10/22/22 22:41 Home Medications Medication Instructions Recorded Confirmed Type gabapentin 300 mg capsule 300 mg PO TID 07/19/22 10/22/22 History atorvastatin 10 mg tablet 10 mg PO HS 08/28/22 10/22/22 History cholecalciferol (vitamin D3) 50 50 mcg PO DAILY 08/28/22 10/22/22 History mcg (2,000 unit) tablet multivitamin with minerals-ferrous 1 tab PO DAILY 08/28/22 10/22/22 History sulfate 4.5 mg iron tablet (One Daily Multivitamins with Minerals) tamsulosin 0.4 mg capsule 0.4 mg PO HS 08/28/22 10/22/22 History tiotropium 2.5 mcg-olodaterol 2.5 2 puff inhalation DAILY 08/28/22 10/22/22 H istory mcg/actuation mist for inhalation (Stiolto Respimat) acetaminophen 500 mg tablet 1,000 mg PO TID #0 tabs 09/06/22 10/22/22 Rx digoxin 125 mcg (0.125 mg) tablet 0.125 mg PO DAILY #0 tabs 09/06/22 10/22/22 Rx ferrous gluconate 324 mg (38 mg 324 mg PO BID@1000,2200 #0 tabs 09/06/22 10/22/22 Rx iron) tablet metoprolol succinate 25 mg 25 mg PO DAILY #0 tabs 09/06/22 10/22/22 Rx tablet,extended release 24 hr midodrine 5 mg tablet 5 mg PO TID #0 tabs 09/06/22 10/22/22 Rx mirtazapine 7.5 mg tablet 7.5 mg PO HS #0 tabs 09/06/22 10/22/22 Rx food supplemt, lactose-reduced 50 ml PO BID 09/22/22 10/22/22 History 0.04 gram-1.05 kcal/mL oral liquid (Boost Breeze Nutritional) guaifenesin 100 mg/5 mL oral 200 mg PO Q4H PRN 09/22/22 10/22/22 History liquid (Robafen) nicotine 10 mg inhalation 1 inh inhalation 4-6XD PRN 09/22/22 10/22/22 History cartridge (Nicotrol) albuterol sulfate 90 mcg/actuation 2 puff inhalation Q4H PRN 10/05/22 10/22/22 History aerosol inhaler aspirin 81 mg capsule 162 mg PO DAILY 10/05/22 10/22/22 History loperamide 2 mg capsule 4 mg PO .COMPLEX PRN 10/05/22 10/22/22 History pantoprazole 40 mg tablet,delayed 40 mg PO BID 10/05/22 10/22/22 History release polyethylene glycol 3350 17 gram 17 g PO DAILY 10/05/22 10/22/22 History oral powder packet sennosides 8.6 mg tablet (Senokot) 17.2 mg PO HS 10/05/22 10/22/22 History Exam Narrative Exam Narrative: General: Frail elderly male who is on CPAP, conversant, but difficult to understand because of CPAP, follows commands Neurological: A&Ox2, no obvious focal deficits, able to move all 4 extremities Psychiatric: Impossible to assess given the patient's condition/CPAP. Skin: Visible skin intact; LLE incisions are healed nicely HEENT: Atraumatic, normocephalic, EOMI, dry MM, wearing CPAP - oropharyngeal exam impossible, no lymphadenopathy or goiter, + JVD Cardiovascular: irregularly irregular rhythm, no m/r/g Lungs: Diminished breath sounds B anteriorly Gastrointestinal: soft, nontender, nondistended Genitourinary: deferred Extremities: +1 edema at B ankles, BLEs TTP tibial surfaces, trace pedal pulses B, no c/c. Results Imaging Additional studies: CXR: 1. ? Probable congestive heart failure. Underlying inflammatory or infectious process not excluded. 2. ? Patchy infiltrates at the lung bases bilaterally may represent acute pneumonia. Consider aspiration. 3. ? Probable left pleural effusion present. EKG: Afib, HR 85, nonspecific ST-T changes, no STEMI. Labs 10/22/22 22:30 10/22/22 22:30 Labs: Laboratory Results - last 24 hr 10/22/22 10/22/22 10/22/22 22:30 22:30 22:30 WBC 11.64 H RBC 4.42 Hgb 13.6 Hct 43.3 MCV 98 H MCH 30.8 MCHC 31.4 L RDW 16.6 H Plt Count 264 MPV 9.6 Immature Gran % 0.4 Neutrophils % 87.5 Lymphocytes % 5.2 Monocytes % 6.2 Eosinophils % 0.2 Basophils % 0.5 Nucleated RBC % 0.0 Absolute Neutrophils 10.19 H Absolute Lymphocytes 0.61 L Absolute Monocytes 0.72 Absolute Eosinophils 0.02 Absolute Basophils 0.06 PT 11.6 H INR 1.1 APTT 26.0 VBG pH VBG pCO2 VBG pO2 VBG HCO3 VBG Total CO2 VBG O2 Saturation VBG Base Excess Sodium 142 Potassium 4.1 Chloride 107 Carbon Dioxide 20.7 L Anion Gap 14.3 H BUN 34 H Creatinine 1.5 H Est GFR (CKD-EPI 2020) 49.16 Glucose 120 H Calcium 8.7 Magnesium 1.6 L Total Bilirubin 0.7 AST 25 ALT 22 Alkaline Phosphatase 157 H Troponin I < 50 NT-Pro-B Natriuret Pep 5144 H Total Protein 7.5 Albumin 2.9 L TSH 1.89 10/22/22 22:30 WBC RBC Hgb Hct MCV MCH MCHC RDW Plt Count MPV Immature Gran % Neutrophils % Lymphocytes % Monocytes % Eosinophils % Basophils % Nucleated RBC % Absolute Neutrophils Absolute Lymphocytes Absolute Monocytes Absolute Eosinophils Absolute Basophils PT INR APTT VBG pH 7.32 VBG pCO2 38 L VBG pO2 40 VBG HCO3 19 L VBG Total CO2 18 L VBG O2 Saturation 68 VBG Base Excess -7 L Sodium Potassium Chloride Carbon Dioxide Anion Gap BUN Creatinine Est GFR (CKD-EPI 2020) Glucose Calcium Magnesium Total Bilirubin AST ALT Alkaline Phosphatase Troponin I NT-Pro-B Natriuret Pep Total Protein Albumin TSH Last Vital Signs Temp 37.1 C 10/22/22 22:26 Pulse 84 10/22/22 23:19 Resp 24 10/22/22 23:19 BP 72/43 L 10/22/22 22:30 Pulse Ox 91 L 10/22/22 23:19 Time Spent Time spent with Patient: 55-74 minutes Time was spent: preparing to see the patient(eg.review tests), obtaining and/or reviewing separately otained hiistory, ordering medications,tests, procedures, referring, communicating with other health direct care supervisor, indepentently interpreting results, counseling the patient and care coordination
[2022-10-22 23:51] LABS: Bilirubin Negative (Negative); Blood Negative (Negative); Clarity Clear (Clear); Glucose Negative (Negative); Ketones Trace mg/dL (Negative); Leukocyte Esterase Small (Negative); Nitrite Negative (Negative); Urobilinogen 0.2 mg/dL (Up to 0.2)
[2022-10-22 23:53] LABS: Bacteria Few HPF (Negative); C & S Indicated? C&S Done As Ordered; Casts Negative LPF (Negative); Crystals Negative HPF (Negative); Epithelial Cells Few HPF (Negative); Mucus Negative (Negative); RBC Negative HPF (0-2); WBC >50 HPF (0-5)
[2022-10-23] VITALS (192 sets, daily range): BP systolic 63–126; BP diastolic 38–78; PULSE 54–122; RESP 1–35; TEMP 36.5–37.7; O2SAT 88–100
--- NOTE | 2022-10-23 | DI.US_ITS ---
Exam(s) US RENAL EXAM: US RENAL CLINICAL HISTORY: NHI, UTI. TECHNIQUE: Irby scale, color and spectral Doppler were used. COMPARISON: US US RENAL from 07/20/2022 FINDINGS: Renal size in cm: Right: 10.1. Left: 10.1. Echogenicity: Normal. Hydronephrosis: No. Cyst or mass: No. Nephrolithiasis: No. Other findings: Note is made of a left pleural effusion. Bladder:Incompletely distended. There is a Biggs catheter in place. No gross abnormalities identifi ed. Ureteral jets: Right: Not seen on this examination. Left: Not seen on this examination. Prevoid vol:44 cc Postvoid vol:0 cc Prostate: 31 cc Renal color flow: Symmetric and within normal limits. IMPRESSION: 1. Unremarkable sonographic appearance of the kidneys. 2. Limited visualization of the urinary bladder due to underdistention. There is a Biggs catheter in place. 3. Left pleural effusion. 4. Mildly enlarged prostate gland. DATA REPOSITORY:
--- NOTE | 2022-10-23 | DI.RAD_ITS ---
Exam(s) XR PORTABLE CHEST AP POST LINE EXAM: XR PORTABLE CHEST AP POST LINE CLINICAL HISTORY: post central line, right IJ TECHNIQUE: 2D digital imaging was performed of the chest. One image was obtained. An AP view was ob tained. COMPARISON: CR,XR XR PORTABLE CHEST AP from 10/22/2022 FINDINGS: There has been interval placement of a right IJ catheter. The tip is in good position in the superi or vena cava. MEDIASTINUM: Normal. HEART: Cardiomegaly. PULMONARY VASCULATURE: Normal. LUNGS: Bilateral patchy bilateral basilar infiltrates are again noted. There has been some improveme nt in the lung bases particularly on the left compared to the examination from earlier in the day. PLEURAL SPACE: No pleural effusion or pneumothorax. BONE:Within normal limits for the patient's age. Sternal wires are in place. OTHER FINDINGS:Normal. IMPRESSION: Interval placement of a right IJ catheter. The tip is in good position in the superior vena cava. N o pneumothorax. DATA REPOSITORY: RADIATION DOSE DELIVERED:
--- NOTE | 2022-10-23 | DI.CT_ITS ---
Exam(s) CT CHEST PE CTA EXAM: CT CHEST PE CTA CLINICAL HISTORY: suspected PE. TECHNIQUE: Imaging Protocol: Axial CT angiography was performed with multi-slice acquisition and mu lti-planar and/or 3D reconstructions. CONTRAST MATERIAL: Intravenous: Omnipaque 350 contrast volume:70 mL COMPARISON: CT CT CHEST PE ABD PELVIS W from 03/20/[address] CHEST WO from 07/20/2022 FINDINGS: The examination is limited due to patient motion artifact. Tracheobronchial tree: Patent where visualized. Pulmonary parenchyma: Severe centrilobular emphysematous changes are present. There are small bilate ral pleural effusions and areas of consolidation in the lower lobes bilaterally, left greater than ri ght. Pulmonary Arteries: No evidence of filling defect to suggest pulmonary emboli. Mediastinum and Mikki: No dominant adenopathy or fluid collection. The esophagus is unremarkable. Th ere is a large hiatal hernia. Visualized thyroid gland: Unremarkable. Pleura: No pneumothorax. Heart: Cardiomegaly. Marked coronary artery calcification. No pericardial effusion. Aorta: Thoracic aorta non-dilated. Atherosclerosis is present. The thoracic aorta is inadequately op acified. This limits evaluation. Upper abdomen: There is reflux of contrast in the IVC which may reflect right heart failure/pulmonar y hypertension. There is again seen calcification of the capsule of the spleen. Soft tissues: Unremarkable. Bones: Within normal limits for the patient's age.There are old united and nonunited rib fractures bi laterally. There is a subacute right 10th rib fracture. IMPRESSION: 1. No evidence of pulmonary embolism or aneurysm. 2. Bilateral basilar infiltrates and pleural effusions. The infiltrates may represent atelectasis or pneumonia. 3. Findings suggestive of right heart strain/failure/pulmonary hypertension. RADIATION DOSE DELIVERED: 232.9mGy.cm Total DLP DATA REPOSITORY: All CT scans at this facility are submitted to the National Radiology Data Registry (NRDR) Dose Index Registry (DIR) with the [employer] (ACR). RADIATION OPTIMIZATION: All CT scans at this facility use at least one of these dose optimization te chniques: automated exposure control; mA and/or kV adjustment per patient size (includes targeted exa ms where dose is matched to clinical indication); or iterative reconstruction.
[2022-10-23 00:07] LABS: D-Dimer 1791 ng/mlFEU (<500); Procalcitonin 2.9 ng/mL
[2022-10-23 00:13] LABS: Lab Add On Test DONE
[2022-10-23 00:23] LABS: COVID-19 PCR Negative (Negative); Influenza A PCR Negative (Negative); Influenza B PCR Negative (Negative); RSV PCR Negative (Negative)
[2022-10-23 00:35] LABS: Source Nasopharynx
--- NOTE | 2022-10-23 00:38 | DI.VRAD_ITS ---
PROCEDURE INFORMATION: Exam: XR Chest Exam date and time: 10/23/2022 12:22 AM Age: 72 years old Clinical indication: Device placement; Prior surgery; Surgery date: 6+ months; Surgery type: Cabg; Patient HX: Central line placement TECHNIQUE: Imaging protocol: Radiologic exam of the chest. Views: 1 view. COMPARISON: XR PORTABLE CHEST AP 10/22/2022 10:44 PM FINDINGS: Tubes, catheters and devices: A right internal jugular central venous catheter present terminates at the proximal superior vena cava in good position. Lungs: There is pulmonary venous congestion. There is diffuse interstitial edema. Underlying inflammatory or infectious process not excluded. Pleural spaces: Probable left pleural effusion. No evidence of pneumothorax. Heart/Mediastinum: The heart is enlarged. There is prominence of the mediastinum. Bones/joints: Sternotomy wires and mediastinal surgical clips are present, consistent with previous coronary arterial bypass grafting. The skeletal structures and soft tissues show no evidence of fracture or other acute processes. Soft tissues: The soft tissues of the extrathoracic region are unremarkable. Intraperitoneal space: Surgical clips present within the left upper quadrant of the abdomen and left lower chest. IMPRESSION: 1. Probable congestive heart failure. Underlying inflammatory or infectious process not excluded. Left pleural effusion. 2. A right internal jugular central venous catheter present terminates at the proximal superior vena cava in good position. Dictated and Authenticated by: Zain Bull MD. Ordering:DESIREE Lieberman MD
[2022-10-23 00:40] LABS: Lactate 3.5 mmol/L (0.6-1.4)
[2022-10-23] MEDS: Norepinephrine in D5W 8 MG/250 ML BAG 9.375 MG IV (00:44)
[2022-10-23 00:50] LABS: Digoxin 1.06 ng/mL (0.90-2.00)
[2022-10-23] MEDS: CEFEPIME 2 GM in Normal Saline 100 ML IVPB ×3 (01:17→21:45)
[2022-10-23] MEDS: Omnipaque 350 MG/ML 100 ML BTL IJ (01:18)
[2022-10-23] MEDS: Normal Saline - Diluent 50 ML VIAL IJ (01:22)
[2022-10-23] MEDS: Normal Saline Flush 10 ML SYR IVP (01:22)
[2022-10-23] MEDS: Heparin 5,000 UNITS/ML VIAL 5000 UNITS SC ×2 (01:24→14:51)
--- NOTE | 2022-10-23 02:08 | NUR.NOTE ---
2228: Pt BIBEMS d/t severe difficulty breathing. Per EMS report pt SpO2 60-65% on home O2 via NC upon arrival on scene, tripodding, w/ diffuse accessory muscle usage. Placed immediately on CPAP. Upon arrival to ER transitioned to BiPAP. Noted to be in diffusely poor condition, cachectic, w/ excoriation of buttocks, incontinent of urine, and eschar on bilateral heels. SpO2 on arrival 82% w/ good waveform when pulse oximeter placed on L earlobe. Lung sounds demonstrate fine crackles throughout w/ notable increase in both bases. HR Afib 85-95bpm. Hypotensive w/ SBP >85mmHg, MAPs 55-65. RT also at bedside to assess, per MD Hu, plan to administer albuterol nebs x3 and provide further work up. Recent d/c home 10/13/[address] [facility] s/p L femur ORIF complicated by acute COPD exacerbation 2258: CXR concerning for diffuse pulmonary edema. Pt SpO2 improved to 90% s/p neb treatments. Will attempt to transition from BiPAP to CPAP if oxygenation tolerates. Plan for admit to ICU for further management. Lasix and decadron administered and 16fr urinary catheter placed by this RN. 2351: MD Hu at bedside to place a central line per Hospitalist for levophed gtt to maintain BP WDL. Prior to procedure a mendez moment was held after hand hygiene was performed, confirming pt identity, procedure (CVC placement) and location (R IJ). Pt tolerated procedure well. S/p CVC insertion indicates that WOB has improved. 0104: Awaiting pharmacy verification on multiple medications. Levo gtt initiated. Will transfer pt to ICU s/p PE study accompanied by RT &this RN.
[2022-10-23] MEDS: Normal Saline 500 ML 30 ML IV (02:20)
[2022-10-23] MEDS: MAGNESIUM SULFATE 2 GM/50 ML BAG IVPB (02:20)
--- NOTE | 2022-10-23 02:20 | DI.VRAD_ITS ---
PROCEDURE INFORMATION: Exam: CTA Chest With Contrast Exam date and time: 10/23/2022 1:20 AM Age: 72 years old Clinical indication: Shortness of breath and other: Suspected pe; Prior surgery; Surgery date: 6+ months; Surgery type: Cabg TECHNIQUE: Imaging protocol: Computed tomographic angiography of the chest with contrast. 3D rendering (Not supervised by radiologist): MIP and/or 3D reconstructed images were created by the technologist. Radiation optimization: All CT scans at this facility use at least one of these dose optimization techniques: automated exposure control; mA and/or kV adjustment per patient size (includes targeted exams where dose is matched to clinical indication); or iterative reconstruction. Contrast material: OMNIPAQUE 350; Contrast volume: 100 ml; Contrast route: INTRAVENOUS (IV); COMPARISON: CT CHEST PE ABD PELVIS W 04/10/2021 4:34 PM FINDINGS: Pulmonary arteries: The pulmonary arteries are normal in caliber. No evidence of acute pulmonary embolism. Great vessels off aortic arch: Moderate atherosclerosis of the origins of the great vessels. Aorta: The aorta is normal without evidence of aneurysmal dilatation, dissection or occlusive disease. The aorta demonstrates moderate atherosclerotic calcification. There is ectasia of the ascending thoracic aorta without evidence of aneurysmal dilatation. Lungs: No evidence of pulmonary parenchymal inflammatory changes. There is no evidence of pulmonary masses. Severe centrilobular emphysematous changes are present. Patchy atelectasis and consolidation of the left greater than right lower lobes of the lung. Underlying pneumonia can not be excluded. These findings are far more advanced in those seen on the prior study of 04/10/2021. Pleural spaces: There is no evidence of pneumothorax. There are no pleural effusions present. Heart: The cardiac structures are normal. There is moderate cardiomegaly. There is dilation of the right atrium. The right ventricular to left ventricular ratio is abnormal measuring approximately 1.3.There is reflux of contrast within the inferior vena cava and hepatic veins consistent with elevated right-sided cardiac pressures. This may reflect right heart strain. Consider pulmonary hypertension. Coronary arteries: There is moderate atherosclerotic calcification of the coronary arteries. Lymph nodes: There is no evidence of lymphadenopathy. Spleen: Calcifications within the splenic parenchyma consistent with old granulomatous exposure or prior infarction or hemorrhage. Bones/joints: The spine, sternum, ribs, and pectoral girdles show no evidence of acute abnormality. Sternotomy wires and mediastinal surgical clips are present, consistent with previous coronary arterial bypass grafting. Soft tissues: There are no soft tissue masses or fluid collections. The upper abdominal viscera are unremarkable. Other findings: Motion artifact does mildly limit the sensitivity of this examination. The mediastinal structures are normal. IMPRESSION: 1. The right ventricular to left ventricular ratio is abnormal measuring approximately 1.3.There is reflux of contrast within the inferior vena cava and hepatic veins consistent with elevated right-sided cardiac pressures. This may reflect right heart strain. Consider pulmonary hypertension. 2. Patchy atelectasis and consolidation of the left greater than right lower lobes of the lung. Underlying pneumonia can not be excluded. These findings are far more advanced in those seen on the prior study of 04/10/2021. 3. No evidence of acute pulmonary embolism. 4. Severe centrilobular emphysematous changes are present. Dictated and Authenticated by: Zain Bull MD. Ordering:TOMI Jhaveri MD
[2022-10-23 02:45] LABS: Lactate 3.4 mmol/L (0.6-1.4)
[2022-10-23 03:04] LABS: Troponin I 503 ng/L (<or=60)
[2022-10-23] MEDS: VANCOMYCIN 750 MG in Normal Saline 250 ML 166.667 MG IVPB (04:13)
[2022-10-23] MEDS: Ipratropium 0.5 MG/2.5 ML UPD VIAL UPD ×4 (05:51→23:49)
[2022-10-23] MEDS: Levalbuterol 1.25 MG/3 ML UPD VIAL UPD ×2 (05:52→13:30)
[2022-10-23 06:12] LABS: BE (Venous) -6 mmol/L (-2-3); HCO3 (Venous) 21 mmol/L (23-28); O2 Sat (Venous) 75 %; TCO2 (Venous) 19 mmol/L (24-29); pCO2 (Venous) 46 mmHg (41-51); pH (Venous) 7.26 (7.31-7.41); pO2 (Venous) 46 mmHg
[2022-10-23 06:21] LABS: Abs Immature Grans 0.08 10^3/uL (0.0-0.06); HCT 40.9 % (40.0-50.0); HGB 12.7 g/dL (13.5-17.5); MCH 30.5 pg (27.0-33.0); MCHC 31.1 % (32.0-36.0); MCV 98 fL (80-95); MPV 9.7 fL (8.0-11.0); Platelet Count 217 10^3/uL (130-400); RBC 4.17 10^6/uL (4.36-5.78); RDW 16.9 % (11.8-14.1); WBC 13.62 10^3/uL (4.4-10.8)
[2022-10-23 06:32] LABS: Anion Gap 14.1 mmol/L (3-11); BUN 37 mg/dL (7-18); CO2 21.9 mmol/L (21.0-32.0); CREATININE 1.5 mg/dL (0.70-1.30); Calcium 8.7 mg/dL (8.5-10.1); Chloride 106 mmol/L (98-107); Estimated GFR 49.16 (mL/min/1.73m2); Glucose 153 mg/dL (74-106); Magnesium 2.7 mg/dL (1.8-2.4); Potassium 4.1 mmol/L (3.5-5.1); Sodium 142 mmol/L (136-145)
[2022-10-23 06:43] LABS: Troponin I 923 ng/L (<or=60)
[2022-10-23 06:50] LABS: BE (Venous) -7 mmol/L (-2-3); HCO3 (Venous) 20 mmol/L (23-28); O2 Sat (Venous) 90 %; TCO2 (Venous) 19 mmol/L (24-29); pCO2 (Venous) 42 mmHg (41-51); pH (Venous) 7.29 (7.31-7.41); pO2 (Venous) 64 mmHg
--- NOTE | 2022-10-23 06:52 | NUR.NOTE ---
Patient's type and cross match band was cut off on 10/22/22 while preparing for Arterial line insertion. As per lab staff Steph, if patient need to be given any blood or blood products, patient has to be re-drawn for type and cross match and a new red band to be used.
[2022-10-23 06:56] LABS: Absolute Lymphocyte Count 0.54 10^3/uL (1.2-3.4); Absolute Monocyte Count 0.68 10^3/uL (0.1-0.8); Absolute Neutrophil Count 11.85 10^3/uL (1.2-6.7); Bands % 5
[2022-10-23 06:56] LABS: Lactate 4.4 mmol/L (0.6-1.4)
[2022-10-23 06:57] LABS: Diff Comment Manual Differential; Metamyelocytes % 3; Myelocytes % 1; RBC Morphology Normal
--- NOTE | 2022-10-23 08:00 | DI.US_ITS ---
Exam(s) US EXTREMITY VENOUS BI EXAM: US EXTREMITY VENOUS BI CLINICAL HISTORY: suspected DVT. TECHNIQUE: Bilateral lower extremity venous ultrasound performed using grayscale, color-flow, and sp ectral Doppler analysis. COMPARISON: US US EXTREMITY VENOUS BI from 01/15/2020 FINDINGS: The right common femoral, femoral and popliteal veins demonstrate normal compressibility, augmentatio n, and color Doppler. The posterior tibial veins are patent. The saphenofemoral junction is unremarka ble. There is no evidence of a Harris's cyst. The soft tissues are unremarkable. The left common femoral, femoral and popliteal veins demonstrate normal compressibility, augmentation , and color Doppler. The posterior tibial veins are patent. The saphenofemoral junction is unremarkab le. There is no evidence of a Harris's cyst. The soft tissues are unremarkable. IMPRESSION: 1. No evidence of a right lower extremity DVT. 2. No evidence of a left lower extremity DVT. DATA REPOSITORY:
--- NOTE | 2022-10-23 08:27 | INITIAL_ITS ---
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) Pneumonia (Acute) Hypoxemia (Acute) Borderline hyperglycemia (Acute) Recurrent aspiration pneumonia (Acute) COPD exacerbation (Acute) Pneumonia (Acute) COPD exacerbation (Acute) Shortness of breath (Acute) Lung mass (Acute) Elevated troponin (Acute) Hypotension (Acute) DNR (do not resuscitate) (Acute) Acute bronchitis (Acute) Left foot pain (Acute) Palliative care patient (Acute) Underweight (Acute) Diastolic heart failure (Chronic) Closed intertrochanteric fracture of left femur (Acute) s/p IMN fixation (08/28/22) Fall (Acute) Blunt head trauma (Acute) Contusion of elbow, left (Acute) Contusion of left leg (Acute) Closed fracture of left hip (Acute) Mild cognitive impairment (Acute) Advanced care planning/counseling discussion (Acute) Literacy level of illiterate (Acute) Palliative care encounter (Acute) Acute on chronic right-sided congestive heart failure (Chronic) Pneumonia (Acute) Depression (Chronic) Dental abscess (Acute) 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) Abnormal chest CT (Acute) Full code status (Acute) Urinary retention (Chronic) 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) CAP (community acquired pneumonia) (Acute) Generalized weakness (Acute) Skin tear of left elbow without complication (Acute) Chronic obstructive lung disease (Chronic) Tricuspid regurgitation (Chronic) CAD (coronary artery disease) (Chronic) Hypertension (Chronic) Medical History (Updated 01/03/24 @ 12:07 by Savi Montez MD) Aspiration pneumonia History of fracture of left hip S/P IM NAIL DOS: 08/28/22 Closed intertrochanteric fracture Poor hygiene Fall H/O malignant neoplasm of stomach Low back pain Edema Tinnitus, left Kyphoscoliosis Protein malnutrition Anemia Heart failure, left, with LVEF 41-49% Hoarseness CAD (coronary artery disease) of artery bypass graft Prediabetes Recent weight loss Abnormal radiologic findings on diagnostic imaging of renal pelvis, ureter, or bladder Acute on chronic anemia Acute on chronic systolic CHF (congestive heart failure) CHF, acute on chronic Hypophosphatemia Failure to thrive GI bleeding Malnutrition Rib fractures COVID-19 COVID-19 Abdominal pain Shortness of breath Mild bibasilar atelectasis History of GI bleed Confusion state Pulmonary hypertension Bilateral lower extremity edema Acute on chronic diastolic (congestive) heart failure Encounter for colorectal cancer screening Hydrocele, right (01/23/16) Epididymitis, right (08/02/16) Weight loss GI bleed GERD (gastroesophageal reflux disease) [place] [facility] [place]EGD 04/2021 with friable mucosa. SDOne at that time because of GI blooed Solitary pulmonary nodule Difficulty reading Tobacco abuse Pancreatitis Hyperlipidemia Afib Alcohol abuse Diabetes mellitus Essential hypertension Cerumen impaction Surgical History (Updated 03/31/23 @ 00:04 by AZAEL LAINEZ) H/O colonoscopy (04/14/18) dr geller, sigmoid diverticulosis, repeat 10 years History of right inguinal hernia repair repair times two History of hydrocelectomy H/O colonoscopy (2007) History of esophagogastroduodenoscopy (EGD) (09/2017) sugrical flap of unhealing wound cardiac cath Esophagectomy EGD - IV Sedation Coronary Artery Bypass Gaft (CABG) Family History Mother No problems noted. Father No problems noted. Social History Smoking/Tobacco Use Status: Former Tobacco Use Quit Date: 03/06/20 Smoking risk assessment performed?: Yes Alcohol Intake: former Drug use: Never Substance use type: does not use Housing: apartment Current gender identity: male What type of physical activity do you participate in: none Do you feel safe at home: Yes Do you feel safe in your relationship?: Yes
--- NOTE | 2022-10-23 08:39 | PT.INIE ---
PT Notes Visit Reasons: Acute hypoxic respiratory failure,hypotension,NHI Inpatient Physical Therapy Evaluation Date: [] Referring Doctor: Dr. Mayberry PT Orders: PT CONSULT: limited ability to ambulate Precautions: fall, standard Patient Profile/Admitting Diagnosis: Patient admitted 10/22/22 from ER, where he presented with shortness of breath. Admitted to ICU for management of CHF and COPD exacerbation. PT referral received this morning for mobility assessment. PMHX: PFSH All Active Problems?(Updated 10/23/22 @ 00:37 by Shakila Mayberry MD) Acute kidney injury (Acute) Discharge planning issues (Acute) Hypotension (Acute) DNR (do not resuscitate) (Acute) DNR, but would like trial of intubation. See 09/26 NoteHistory of fracture of left hip (Acute) S/P IM NAIL DOS: 08/28/22Acute bronchitis (Acute) Left foot pain (Acute) Palliative care patient (Acute) Underweight (Acute) Diastolic heart failure (Chronic) Closed intertrochanteric fracture of left femur (Acute) s/p IMN fixation (08/28/22)Fall (Acute) Blunt head trauma (Acute) Contusion of elbow, left (Acute) Contusion of left leg (Acute) Closed fracture of left hip (Acute) Mild cognitive impairment (Acute) Advanced care planning/counseling discussion (Acute) Literacy level of illiterate (Acute) Palliative care encounter (Acute) Acute respiratory failure with hypoxia (Acute) DVT prophylaxis (Acute) Acute exacerbation of chronic obstructive pulmonary disease (COPD) (Acute) Acute on chronic right-sided congestive heart failure (Acute) Pneumonia (Acute) Septic shock (Acute) Hypoxia (Acute Depression (Chronic) Dental abscess (Acute) 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) Abnormal chest CT (Acute) Full code status (Acute) Urinary tract infection (Acute) 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) CAP (community acquired pneumonia) (Acute) Generalized weakness (Acute) Skin tear of left elbow without complication (Acute) Chronic obstructive lung disease (Chronic) Tricuspid regurgitation (Chronic) CAD (coronary artery disease) (Chronic) Hypertension (Chronic) Social History/Home Situation: 4WW Current Functional Limitations: [] Equipment Owned/DME: [] Subjective: [] Objective: [] General Observation: [] Mental Status: [] Pain: [] Vital Signs: [] ROM: Right Upper Extremity: [] Left Upper Extremity: [] Right Lower Extremity: [] Left Lower Extremity: [] Strength: Right Upper Extremity: [] Left Upper Extremity: [] Right Lower Extremity: [] Left Lower Extremity: [] Sensation: [] Bed Mobility/Transfers: [] Gait: [] Balance: [] Static Sitting: [] Dynamic Sitting: [] Static Standing: [] Dynamic Standing: [] Special Tests: Mobility Limitations Standardized Measure [facility] 6 clicks Basic Mobility Inpatient Short Form: Raw Score: [] Standardized Score: [] CMS Score: [] Informed Consent/Education: Patient instructed in purpose of PT consult and plan of care. Assessment: Patient is a [] year old [] referred to physical therapy services with the diagnosis of []. Patient presents with clinical signs and symptoms consistent with [], as demonstrated by the following impairment level findings: []. Impairments are contributing to the following functional limitations: AMPAC score. Patient is assessed as a [] Low 44840 [] Moderate 21074 [] High 57988 complexity based on the following: History: [] Examination: [] Presentation: [] Decision Making: [] Goals: Goals X1 week 1. Supine-Sit [] 2. Sit-Supine [] 3. Sit-Stand [] 4. Stand-Sit [] 5. Bed-Chair [] 6. Chair-Bed [] 7. Gait [] 8. Stairs [] 9. Independent with home exercise program [] 10. Balance [] Plan of Care/Treatment Plan: 1-2x/day, 7 days/week x 1 week. Plan of care has been reviewed with the CONSTRUCTION ECONOMIST providing the service under Physical Therapy direction. Initiate Physical Therapy intervention for strengthening, bed mobility, transfers, gait, stairs, balance training, use of assistive device. DISCHARGE RECOMMENDATIONS: [] [] Home with no services [] [] Home with services [specify] [] Home with outpatient PT [] [] SNF for continued rehabilitation [] [] Group Home Care [] [] SNF versus LTC based on ability to participate and progress [] TREATMENT CODE/TIME: []
--- NOTE | 2022-10-23 08:49 | PT.INNT ---
PT Notes Visit Reasons: Acute hypoxic respiratory failure,hypotension,NHI Orders received for PT consultation. Attempted consultation this am, however patient unable to be roused. Able to open eyes momentarily only. Will check with nursing tomorrow, and plan to evaluate once ready.
[2022-10-23] MEDS: ALBUMIN HUMAN 25 GM/100 ML BTL IVPB (09:30)
--- NOTE | 2022-10-23 10:32 | NUR.NOTE ---
RN calls pharmacy for delivery of 2 gm of Cefepime.Nursing Note:
[2022-10-23] MEDS: Digoxin 0.125 MG TAB PO (10:52)
[2022-10-23] MEDS: predniSONE 20 MG TAB 40 MG PO (10:53)
[2022-10-23] MEDS: Gabapentin 300 MG CAP PO ×3 (10:54→19:33)
[2022-10-23] MEDS: Cholecalciferol (Vitamin D3) 1,000 UNIT TAB 2000 UNITS PO (10:55)
[2022-10-23] MEDS: Pantoprazole 40 MG TABCR PO ×2 (10:57→19:33)
[2022-10-23] MEDS: Multivitamin w/Minerals TAB 1 TAB PO (10:57)
[2022-10-23] MEDS: Ferrous Gluconate 324 MG TAB PO ×2 (10:58→21:46)
[2022-10-23] MEDS: Aspirin 81 MG CHEW 162 MG PO (11:05)
[2022-10-23] MEDS: Midodrine 2.5 MG TAB 10 MG PO ×2 (11:42→18:26)
--- NOTE | 2022-10-23 12:02 | NUR.NOTE ---
Patient set up with lunch tray of potatoes, meat loaf, green beans, pudding and Glucerna and begins to feed himself.Nursing Note:
[2022-10-23 12:33] LABS: Lactate 6.2 mmol/L (0.6-1.4)
[2022-10-23 12:52] LABS: Vancomycin, Random 9.7 ug/mL
[2022-10-23] MEDS: Normal Saline 250 ML IV (13:20)
--- NOTE | 2022-10-23 13:21 | NUR.NOTE ---
Norepinephrine is resumed at 3mcg/min for systolic BPNursing Note: of 81/40.
--- NOTE | 2022-10-23 14:43 | NUR.NOTE ---
Patient is undergoing an ultrasound in room.Nursing Note:
[2022-10-23] MEDS: Polyethylene Glycol 3350 17 GM PACKET PO (14:51)
[2022-10-23] MEDS: Normal Saline 500 ML 250 ML IV (14:56)
[2022-10-23 15:08] LABS: Lactate 4.8 mmol/L (0.6-1.4)
--- NOTE | 2022-10-23 15:58 | DI.VRAD_ITS ---
PROCEDURE INFORMATION: Exam: US Duplex Lower Extremity Veins, Bilateral Exam date and time: 10/23/2022 2:17 PM Age: 72 years old Clinical indication: Pain; Leg, upper; Bilateral TECHNIQUE: Imaging protocol: Real-time duplex ultrasound of the bilateral extremities with 2-D pisano scale, color Doppler flow and spectral waveform analysis including responses to compression and other maneuvers (when performed) with image documentation. Complete exam focused on the lower extremity veins. COMPARISON: US LOWER EXTREMITY VENOUS RT 08/05/2020 15:36 FINDINGS: Right deep veins: Unremarkable. The common femoral, femoral, proximal profunda femoral and popliteal veins are patent without thrombus. Normal Doppler waveforms. Normal compressibility and/or augmentation response. Right superficial veins: Saphenofemoral junction is patent without thrombus. Left deep veins: Unremarkable. The common femoral, femoral, proximal profunda femoral and popliteal veins are patent without thrombus. Normal Doppler waveforms. Normal compressibility and/or augmentation response. Left superficial veins: Saphenofemoral junction is patent without thrombus. Soft tissues: Unremarkable. IMPRESSION: No evidence of deep vein thrombosis. Dictated and Authenticated by: Cindy Ramirez MD. Ordering:TOMI Jhaveri MD
--- NOTE | 2022-10-23 16:05 | DI.VRAD_ITS ---
PROCEDURE INFORMATION: Exam: US Retroperitoneal; Complete; Kidneys and Bladder Exam date and time: 10/23/2022 2:39 PM Age: 72 years old Clinical indication: Condition or disease; Other: Willem TECHNIQUE: Imaging protocol: Real-time ultrasound of the retroperitoneum with image documentation. Complete exam focused on the kidneys and bladder. COMPARISON: CT CHEST/ABD/PEL WO 11/08/2021 06:28 FINDINGS: Right kidney: The right kidney measures 10.1 x 4.0 x 5.0 cm. There is a question of a right extra renal pelvis by the technologist. There is no hydronephrosis. Prior CT October 2021 demonstrated a single punctate right renal calculus. Left kidney: The left kidney measures 10.1 x 5.0 x 4.5 cm. Urinary bladder: Bladder volume is 44.4 mL with a Biggs catheter in place. The ureteral jets were not evaluated. Prostate: The prostate measures 4.0 x 3.3 x 4.5 cm. IMPRESSION: Unremarkable kidneys and bladder. Dictated and Authenticated by: Cindy Ramirez MD. Ordering:TOMI Jhaveri MD
[2022-10-23 16:37] LABS: Lactate 4.6 mmol/L (0.6-1.4)
--- NOTE | 2022-10-23 17:05 | PGE_ITS ---
Date of Service Date of service: 10/23/22 Time of Service: 17:05 Assessment and Plan Assessment and plan (1) Acute respiratory failure with hypoxia: Status: Acute Assessment and plan: Due to acute exacerbation of CHF, COPD, likely underlying pneumonia, pulmonary fibrosis. Continue CPAP therapy. Scheduled + prn nebs. Steroids. Abx. Monitor I/O's and daily weights. Monitor in the ICU. (2) Septic shock: Status: Acute Assessment and plan: In setting of a UTI and likely PNA. Treat with abx, vasopressors, monitor in the ICU. Lactate elevated initially and increased; 3.5>3.4>4.8>4.4>6.2 Gave IV albumin then subsequently 250ml NS boluses x2 and lactate improved to 4 .6. Can only give fluid in moderation given CHF. Monitor. (3) Pneumonia: Status: Acute Assessment and plan: Present on admission. Possibly seen on CXR. Bilateral basilar infiltrates and pleural effusions on CT. No pulmonary embolism noted. Findings suggestive of right heart strain/fa ilure/pulmonary hypertension. Tx w/ vancomycin/cefepime. Obtain urine strep, legionella antigens and sputum for mycoplasma. Obtain MRSA nares. (4) Urinary tract infection: Status: Acute Assessment and plan: Present on admission. W/ h/o prior UTIs and urinary retention. Has previously grown Klebsiella, pseudomonas. Will cover with cefepime. Would benefit from US renal that is pending until Tuesday. (5) Acute on chronic right-sided congestive heart failure: Status: Acute Assessment and plan: s/p a dose of furosemide in the ED. Will abstain from further diuresis at this time given low BPs and ongoing picuture of sepsis requring fluids. Monitor I/O's, daily weights. (6) Acute exacerbation of chronic obstructive pulmonary disease (COPD): Status: Acute Assessment and plan: I think this is relatively mild but could certainly be contributing to hypoxia. Treat with steroids, scheduled + prn nebs. Treat suspected PNA. (7) History of fracture of left hip: Status: Acute Assessment and plan: Would increase his risk of having a DVT/PE. CT chest neg for P.E. C/s PT. (8) Acute kidney injury: Status: Acute Assessment and plan: In setting of hypotension, h/o urinary retention, UTI, pulmonary hypertension. Biggs placed in the ER. Will monitor UOP. Vasopressor support. (9) Hypomagnesemia: Status: Resolved Assessment and plan: Repleted and now 2.7. Monitor. (10) Discharge planning issues: Status: Acute Assessment and plan: DNR C/s PT c/s palliative care. Admit to ICU. Total Critical Care Time 60 minutes. (11) DVT prophylaxis: Status: Acute Assessment and plan: SC heparin. The patient does have a h/o GI bleeding, is on PPI BID, and there is a low threshold to stop the chemical DVT ppx. Subjective Subjective Patient reports: no new complaints and shortness of breath; denies diarrhea, nausea or vomiting Exam Narrative Exam Narrative: General: Frail elderly male who is on CPAP on initial visit. Then on NC subsequently. NAD. Neurological: A&Ox2, no obvious focal deficits, able to move all 4 extremities Skin: Visible skin intact; LLE incisions are healed nicely HEENT: sclera clear. Cardiovascular: irregularly irregular rhythm, no murmur Lungs: Diminished breath sounds B anteriorly Gastrointestinal: soft, nontender, nondistended Genitourinary: deferred Extremities: +1 edema at B ankles, BLEs TTP tibial surfaces Objective Last Vital Signs Temp 36.6 C 10/23/22 15:03 Pulse 122 H 10/23/22 16:46 Resp 17 10/23/22 16:50 BP 98/58 L 10/23/22 16:46 Pulse Ox 96 10/23/22 16:50 Laboratory Results - last 24 hr 10/22/22 10/22/22 10/22/22 22:30 22:30 22:30 WBC 11.64 H RBC 4.42 Hgb 13.6 Hct 43.3 MCV 98 H MCH 30.8 MCHC 31.4 L RDW 16.6 H Plt Count 264 MPV 9.6 Immature Gran % 0.4 Neutrophils % 87.5 Band Neutrophils % Lymphocytes % 5.2 Monocytes % 6.2 Eosinophils % 0.2 Basophils % 0.5 Metamyelocytes % Myelocytes % Nucleated RBC % 0.0 Absolute Neutrophils 10.19 H Absolute Lymphocytes 0.61 L Absolute Monocytes 0.72 Absolute Eosinophils 0.02 Absolute Basophils 0.06 RBC Morphology PT 11.6 H INR 1.1 APTT 26.0 D-Dimer VBG pH VBG pCO2 VBG pO2 VBG HCO3 VBG Total CO2 VBG O2 Saturation VBG Base Excess VBG Lactate Sodium 142 Potassium 4.1 Chloride 107 Carbon Dioxide 20.7 L Anion Gap 14.3 H BUN 34 H Creatinine 1.5 H Est GFR (CKD-EPI 2020) 49.16 Glucose 120 H Calcium 8.7 Magnesium 1.6 L Total Bilirubin 0.7 AST 25 ALT 22 Alkaline Phosphatase 157 H Troponin I < 50 NT-Pro-B Natriuret Pep 5144 H Total Protein 7.5 Albumin 2.9 L Procalcitonin TSH 1.89 Urine Color Urine Clarity Urine pH Ur Specific [place] Urine Protein Urine Ketones Urine Blood Urine Nitrite Urine Bilirubin Urine Urobilinogen Ur Leukocyte Esterase Urine RBC Urine WBC Ur Epithelial Cells Urine Crystals Urine Bacteria Urine Casts Urine Mucus Ur Culture Indicated? Urine Glucose Random Vancomycin Digoxin 1.06 COVID-19 Source SARS-CoV-2 (PCR) Influenza Type A (PCR) Influenza Type B (PCR) RSV (PCR) Add-On Test Request 10/22/22 10/22/22 10/22/22 22:30 22:30 22:30 WBC RBC Hgb Hct MCV MCH MCHC RDW Plt Count MPV Immature Gran % Neutrophils % Band Neutrophils % Lymphocytes % Monocytes % Eosinophils % Basophils % Metamyelocytes % Myelocytes % Nucleated RBC % Absolute Neutrophils Absolute Lymphocytes Absolute Monocytes Absolute Eosinophils Absolute Basophils RBC Morphology PT INR APTT D-Dimer 1791 H VBG pH 7.32 VBG pCO2 38 L VBG pO2 40 VBG HCO3 19 L VBG Total CO2 18 L VBG O2 Saturation 68 VBG Base Excess -7 L VBG Lactate Sodium Potassium Chloride Carbon Dioxide Anion Gap BUN Creatinine Est GFR (CKD-EPI 2020) Glucose Calcium Magnesium Total Bilirubin AST ALT Alkaline Phosphatase Troponin I NT-Pro-B Natriuret Pep Total Protein Albumin Procalcitonin 2.9 TSH Urine Color Urine Clarity Urine pH Ur Specific [place] Urine Protein Urine Ketones Urine Blood Urine Nitrite Urine Bilirubin Urine Urobilinogen Ur Leukocyte Esterase Urine RBC Urine WBC Ur Epithelial Cells Urine Crystals Urine Bacteria Urine Casts Urine Mucus Ur Culture Indicated? Urine Glucose Random Vancomycin Digoxin COVID-19 Source SARS-CoV-2 (PCR) Influenza Type A (PCR) Influenza Type B (PCR) RSV (PCR) Add-On Test Request 10/22/22 10/22/22 10/22/22 23:24 23:41 23:41 WBC RBC Hgb Hct MCV MCH MCHC RDW Plt Count MPV Immature Gran % Neutrophils % Band Neutrophils % Lymphocytes % Monocytes % Eosinophils % Basophils % Metamyelocytes % Myelocytes % Nucleated RBC % Absolute Neutrophils Absolute Lymphocytes Absolute Monocytes Absolute Eosinophils Absolute Basophils RBC Morphology PT INR APTT D-Dimer VBG pH VBG pCO2 VBG pO2 VBG HCO3 VBG Total CO2 VBG O2 Saturation VBG Base Excess VBG Lactate Sodium Potassium Chloride Carbon Dioxide Anion Gap BUN Creatinine Est GFR (CKD-EPI 2020) Glucose Calcium Magnesium Total Bilirubin AST ALT Alkaline Phosphatase Troponin I NT-Pro-B Natriuret Pep Total Protein Albumin Procalcitonin TSH Urine Color Yellow Urine Clarity Clear Urine pH 5.0 Ur Specific [place] 1.020 Urine Protein 30 H Urine Ketones Trace H Urine Blood Negative Urine Nitrite Negative Urine Bilirubin Negative Urine Urobilinogen 0.2 Ur Leukocyte Esterase Small H Urine RBC Negative Urine WBC >50 H Ur Epithelial Cells Few Urine Crystals Negative Urine Bacteria Few Urine Casts Negative Urine Mucus Negative Ur Culture Indicated? C&S Done As Ordered Urine Glucose Negative Random Vancomycin Digoxin COVID-19 Source Nasopharynx SARS-CoV-2 (PCR) Negative Influenza Type A (PCR) Negative Influenza Type B (PCR) Negative RSV (PCR) Negative Add-On Test Request DONE 10/23/22 10/23/22 10/23/22 00:30 02:35 02:35 WBC RBC Hgb Hct MCV MCH MCHC RDW Plt Count MPV Immature Gran % Neutrophils % Band Neutrophils % Lymphocytes % Monocytes % Eosinophils % Basophils % Metamyelocytes % Myelocytes % Nucleated RBC % Absolute Neutrophils Absolute Lymphocytes Absolute Monocytes Absolute Eosinophils Absolute Basophils RBC Morphology PT INR APTT D-Dimer VBG pH VBG pCO2 VBG pO2 VBG HCO3 VBG Total CO2 VBG O2 Saturation VBG Base Excess VBG Lactate 3.5 H* 3.4 H* Sodium Potassium Chloride Carbon Dioxide Anion Gap BUN Creatinine Est GFR (CKD-EPI 2020) Glucose Calcium Magnesium Total Bilirubin AST ALT Alkaline Phosphatase Troponin I 503 H* NT-Pro-B Natriuret Pep Total Protein Albumin Procalcitonin TSH Urine Color Urine Clarity Urine pH Ur Specific [place] Urine Protein Urine Ketones Urine Blood Urine Nitrite Urine Bilirubin Urine Urobilinogen Ur Leukocyte Esterase Urine RBC Urine WBC Ur Epithelial Cells Urine Crystals Urine Bacteria Urine Casts Urine Mucus Ur Culture Indicated? Urine Glucose Random Vancomycin Digoxin COVID-19 Source SARS-CoV-2 (PCR) Influenza Type A (PCR) Influenza Type B (PCR) RSV (PCR) Add-On Test Request 10/23/22 10/23/22 10/23/22 06:05 06:05 06:05 WBC 13.62 H RBC 4.17 L Hgb 12.7 L Hct 40.9 MCV 98 H MCH 30.5 MCHC 31.1 L RDW 16.9 H Plt Count 217 MPV 9.7 Immature Gran % 0.0 Neutrophils % 82.0 Band Neutrophils % 5 Lymphocytes % 4.0 Monocytes % 5.0 Eosinophils % 0.0 Basophils % 0.0 Metamyelocytes % 3 Myelocytes % 1 Nucleated RBC % 0.0 Absolute Neutrophils 11.85 H Absolute Lymphocytes 0.54 L Absolute Monocytes 0.68 Absolute Eosinophils 0.00 Absolute Basophils 0.00 RBC Morphology Normal PT INR APTT D-Dimer VBG pH VBG pCO2 VBG pO2 VBG HCO3 VBG Total CO2 VBG O2 Saturation VBG Base Excess VBG Lactate 4.8 H* Sodium 142 Potassium 4.1 Chloride 106 Carbon Dioxide 21.9 Anion Gap 14.1 H BUN 37 H Creatinine 1.5 H Est GFR (CKD-EPI 2020) 49.16 Glucose 153 H Calcium 8.7 Magnesium 2.7 H Total Bilirubin AST ALT Alkaline Phosphatase Troponin I NT-Pro-B Natriuret Pep Total Protein Albumin Procalcitonin TSH Urine Color Urine Clarity Urine pH Ur Specific [place] Urine Protein Urine Ketones Urine Blood Urine Nitrite Urine Bilirubin Urine Urobilinogen Ur Leukocyte Esterase Urine RBC Urine WBC Ur Epithelial Cells Urine Crystals Urine Bacteria Urine Casts Urine Mucus Ur Culture Indicated? Urine Glucose Random Vancomycin Digoxin COVID-19 Source SARS-CoV-2 (PCR) Influenza Type A (PCR) Influenza Type B (PCR) RSV (PCR) Add-On Test Request 10/23/22 10/23/22 10/23/22 06:05 06:05 06:40 WBC RBC Hgb Hct MCV MCH MCHC RDW Plt Count MPV Immature Gran % Neutrophils % Band Neutrophils % Lymphocytes % Monocytes % Eosinophils % Basophils % Metamyelocytes % Myelocytes % Nucleated RBC % Absolute Neutrophils Absolute Lymphocytes Absolute Monocytes Absolute Eosinophils Absolute Basophils RBC Morphology PT INR APTT D-Dimer VBG pH 7.26 L 7.29 L VBG pCO2 46 42 VBG pO2 46 64 VBG HCO3 21 L 20 L VBG Total CO2 19 L 19 L VBG O2 Saturation 75 90 VBG Base Excess -6 L -7 L VBG Lactate Sodium Potassium Chloride Carbon Dioxide Anion Gap BUN Creatinine Est GFR (CKD-EPI 2020) Glucose Calcium Magnesium Total Bilirubin AST ALT Alkaline Phosphatase Troponin I 923 H* NT-Pro-B Natriuret Pep Total Protein Albumin Procalcitonin TSH Urine Color Urine Clarity Urine pH Ur Specific [place] Urine Protein Urine Ketones Urine Blood Urine Nitrite Urine Bilirubin Urine Urobilinogen Ur Leukocyte Esterase Urine RBC Urine WBC Ur Epithelial Cells Urine Crystals Urine Bacteria Urine Casts Urine Mucus Ur Culture Indicated? Urine Glucose Random Vancomycin Digoxin COVID-19 Source SARS-CoV-2 (PCR) Influenza Type A (PCR) Influenza Type B (PCR) RSV (PCR) Add-On Test Request 10/23/22 10/23/22 10/23/22 06:40 12:20 12:20 WBC RBC Hgb Hct MCV MCH MCHC RDW Plt Count MPV Immature Gran % Neutrophils % Band Neutrophils % Lymphocytes % Monocytes % Eosinophils % Basophils % Metamyelocytes % Myelocytes % Nucleated RBC % Absolute Neutrophils Absolute Lymphocytes Absolute Monocytes Absolute Eosinophils Absolute Basophils RBC Morphology PT INR APTT D-Dimer VBG pH VBG pCO2 VBG pO2 VBG HCO3 VBG Total CO2 VBG O2 Saturation VBG Base Excess VBG Lactate 4.4 H* 6.2 H* Sodium Potassium Chloride Carbon Dioxide Anion Gap BUN Creatinine Est GFR (CKD-EPI 2020) Glucose Calcium Magnesium Total Bilirubin AST ALT Alkaline Phosphatase Troponin I NT-Pro-B Natriuret Pep Total Protein Albumin Procalcitonin TSH Urine Color Urine Clarity Urine pH Ur Specific [place] Urine Protein Urine Ketones Urine Blood Urine Nitrite Urine Bilirubin Urine Urobilinogen Ur Leukocyte Esterase Urine RBC Urine WBC Ur Epithelial Cells Urine Crystals Urine Bacteria Urine Casts Urine Mucus Ur Culture Indicated? Urine Glucose Random Vancomycin 9.7 Digoxin COVID-19 Source SARS-CoV-2 (PCR) Influenza Type A (PCR) Influenza Type B (PCR) RSV (PCR) Add-On Test Request 10/23/22 16:25 WBC RBC Hgb Hct MCV MCH MCHC RDW Plt Count MPV Immature Gran % Neutrophils % Band Neutrophils % Lymphocytes % Monocytes % Eosinophils % Basophils % Metamyelocytes % Myelocytes % Nucleated RBC % Absolute Neutrophils Absolute Lymphocytes Absolute Monocytes Absolute Eosinophils Absolute Basophils RBC Morphology PT INR APTT D-Dimer VBG pH VBG pCO2 VBG pO2 VBG HCO3 VBG Total CO2 VBG O2 Saturation VBG Base Excess VBG Lactate 4.6 H* Sodium Potassium Chloride Carbon Dioxide Anion Gap BUN Creatinine Est GFR (CKD-EPI 2020) Glucose Calcium Magnesium Total Bilirubin AST ALT Alkaline Phosphatase Troponin I NT-Pro-B Natriuret Pep Total Protein Albumin Procalcitonin TSH Urine Color Urine Clarity Urine pH Ur Specific [place] Urine Protein Urine Ketones Urine Blood Urine Nitrite Urine Bilirubin Urine Urobilinogen Ur Leukocyte Esterase Urine RBC Urine WBC Ur Epithelial Cells Urine Crystals Urine Bacteria Urine Casts Urine Mucus Ur Culture Indicated? Urine Glucose Random Vancomycin Digoxin COVID-19 Source SARS-CoV-2 (PCR) Influenza Type A (PCR) Influenza Type B (PCR) RSV (PCR) Add-On Test Request Time Spent with Patient Time Spent with Patient: 35-49 minutes Time was spent: preparing to see the patient(eg.review tests), obtaining and/or reviewing separately otained hiistory, ordering medications,tests, procedures, referring, communicating with other health auto care center manager and indepentently interpreting results
[2022-10-23] MEDS: Atorvastatin 10 MG TAB PO (21:46)
[2022-10-23] MEDS: Senna TAB 2 TAB PO (21:46)
[2022-10-23] MEDS: Mirtazapine 15 MG TAB 7.5 MG PO (21:47)
[2022-10-24] VITALS (32 sets, daily range): BP systolic 95–117; BP diastolic 50–65; PULSE 57–81; RESP 5–25; TEMP 36.3–37.5; O2SAT 87–98
[2022-10-24] MEDS: Normal Saline Flush 10 ML SYR IVP ×2 (02:09→20:35)
[2022-10-24] MEDS: Heparin 5,000 UNITS/ML VIAL 5000 UNITS SC ×2 (02:10→13:44)
[2022-10-24] MEDS: VANCOMYCIN 750 MG in Normal Saline 250 ML 166.667 MG IVPB (03:37)
[2022-10-24] MEDS: Ipratropium 0.5 MG/2.5 ML UPD VIAL UPD ×3 (05:33→18:29)
[2022-10-24] MEDS: Midodrine 2.5 MG TAB 10 MG PO ×3 (05:56→18:27)
[2022-10-24 06:40] LABS: Abs Immature Grans 0.59 10^3/uL (0.0-0.06); HCT 35.2 % (40.0-50.0); HGB 10.9 g/dL (13.5-17.5); MCH 30.5 pg (27.0-33.0); MCV 99 fL (80-95); MPV 10.5 fL (8.0-11.0); Platelet Count 177 10^3/uL (130-400); RBC 3.57 10^6/uL (4.36-5.78); RDW-SD 62.3 fL; WBC 16.57 10^3/uL (4.4-10.8)
[2022-10-24 07:02] LABS: Anion Gap 6.9 mmol/L (3-11); BUN 45 mg/dL (7-18); CO2 26.1 mmol/L (21.0-32.0); Calcium 8.9 mg/dL (8.5-10.1); Chloride 108 mmol/L (98-107); Estimated GFR 79.97 (mL/min/1.73m2); Glucose 82 mg/dL (74-106); Magnesium 2.5 mg/dL (1.8-2.4); Potassium 4.7 mmol/L (3.5-5.1); Sodium 141 mmol/L (136-145)
[2022-10-24] MEDS: Tiotropium/Olodaterol 10 PUFF INHALER 2 PUFF IH (07:52)
[2022-10-24 07:55] LABS: Absolute Basophil Count 0.17 10^3/uL (0.0-0.2); Absolute Monocyte Count 1.33 10^3/uL (0.1-0.8); Absolute Neutrophil Count 13.59 10^3/uL (1.2-6.7); Bands % 6
[2022-10-24 07:56] LABS: Diff Comment Manual Differential; Metamyelocytes % 4; Myelocytes % 2; RBC Morphology Normal
[2022-10-24] MEDS: predniSONE 20 MG TAB 40 MG PO (09:13)
[2022-10-24] MEDS: Aspirin 81 MG CHEW 162 MG PO (09:13)
[2022-10-24] MEDS: Cholecalciferol (Vitamin D3) 1,000 UNIT TAB 2000 UNITS PO (09:14)
[2022-10-24] MEDS: Pantoprazole 40 MG TABCR PO ×2 (09:15→20:35)
[2022-10-24] MEDS: Ferrous Gluconate 324 MG TAB PO ×2 (09:15→20:36)
[2022-10-24] MEDS: Polyethylene Glycol 3350 17 GM PACKET PO (09:15)
[2022-10-24] MEDS: Digoxin 0.125 MG TAB PO (09:15)
[2022-10-24] MEDS: Gabapentin 300 MG CAP PO ×3 (09:15→20:36)
[2022-10-24] MEDS: Multivitamin w/Minerals TAB 1 TAB PO (09:15)
--- NOTE | 2022-10-24 10:09 | PT.INIE ---
PT Notes Visit Reasons: Acute Hypoxic Respiratory Failure,Hypotension,NHI Inpatient Physical Therapy Evaluation Date: 10/24/22 Referring Doctor: Dr. Mayberry PT Orders: PT CONSULT: limited ability to ambulate Precautions: fall, standard Patient Profile/Admitting Diagnosis: Patient admitted 10/22/22 for acute respiratory failure due to acute exacerbation of CHF, COPD, likely underlying pneumonia, pulmonary fibrosis. PT consultation ordered for mobility assessment. Attempted evaluation yesterday, but patient not alert enough for evaluation. PMHX: All Active Problems?(Updated 10/23/22 @ 00:37 by Shakila Mayberry MD) Acute kidney injury (Acute) Discharge planning issues (Acute) Hypotension (Acute) DNR (do not resuscitate) (Acute) DNR, but would like trial of intubation. See 09/26 NoteHistory of fracture of left hip (Acute) S/P IM NAIL DOS: 08/28/22Acute bronchitis (Acute) Left foot pain (Acute) Palliative care patient (Acute) Underweight (Acute) Diastolic heart failure (Chronic) Closed intertrochanteric fracture of left femur (Acute) s/p IMN fixation (08/28/22)Fall (Acute) Blunt head trauma (Acute) Contusion of elbow, left (Acute) Contusion of left leg (Acute) Closed fracture of left hip (Acute) Mild cognitive impairment (Acute) Advanced care planning/counseling discussion (Acute) Literacy level of illiterate (Acute) Palliative care encounter (Acute) Acute respiratory failure with hypoxia (Acute) DVT prophylaxis (Acute) Acute exacerbation of chronic obstructive pulmonary disease (COPD) (Acute) Acute on chronic right-sided congestive heart failure (Acute) Pneumonia (Acute) Septic shock (Acute) Hypoxia (Acute) Depression (Chronic) Dental abscess (Acute) 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 States that he walks with FWW at baseline, although unclear on distances tolerated. Reports that he lives with his significant other, Lyudmila, and that they do not receive any services. Reports that they live together at the [facility]; Care Management is looking into current living situation for discharge planning. Equipment Owned/DME: FWW Subjective: Ilia is sitting up to chair at initiation of session. He would like to get back to bed. Nursing reports that he did well getting to chair with FWW and assist of one. Objective: General Observation: Pleasant and cooperative, frail-appearing. Multiple lines, including Biggs catheter, telemetry, central line, IV in RUE, supplemental O2 via nasal cannula. Monitored for BP and pulse oximetry throughout session, with oxygenation remaining in 90s. Mental Status: A&Ox2 Pain: denies ROM: Right Upper Extremity: Shoulder flexion 120*. Elbow and wrist motion WFL. Left Upper Extremity: Shoulder flexion 120*. Elbow and wrist motion WFL. Right Lower Extremity: Hip flexion to 110* bilat. Knee motion WFL. Left Lower Extremity: Hip flexion to 110* bilat. Knee motion WFL. Strength: Right Upper Extremity: Shoulder flexion 3/5 within available range. Biceps 3+/5. Triceps 3+/5. Left Upper Extremity: Shoulder flexion 3/5 within available range. Biceps 3+/5. Triceps 3+/5. Right Lower Extremity: Hip flexion 4-/5. Quads 4/5. Ankle DF 4/5. Left Lower Extremity: Hip flexion 4-/5. Quads 3+/5. Ankle DF 4/5. Bed Mobility/Transfers: sit-stand: CGA, cues for hand placement stand-sit: CGA, requires cues and assistance for technique and equipment management sit-supine: supervision with flat bed sitting up in bed: supervision scooting in bed: cues only Gait: Ambulates 3' with FWW, CGA. Able to take 3 side steps at edge of bed. Does demonstrate LOVE with standing activities, although SaO2 remains in 90s throughout. Balance: Static Sitting: good Dynamic Sitting: good Static Standing: fair Dynamic Standing: fair Special Tests: Mobility Limitations Standardized Measure [facility] AM-PAC 6 clicks Basic Mobility Inpatient Short Form: Raw Score: 17 CMS Score: 51% impairment Informed Consent/Education: Patient instructed in purpose of PT consult and plan of care. Treatment: Today's session consisted of evaluation, followed by treatment as noted below. Discussed appropriate treatment planning, with patient verbalizing agreement. Therapeutic Exercises: 1. standing alternating shoulder flexion, CGA, 6x (limited by LOVE) 2. sit-stand 3x, cues for hand placement 3. sidestepping, L<->R 3x each Assessment: Patient is a 72 year old male referred to physical therapy services with the diagnosis of mobility impairments during hospitalization for acute respiratory failure. Patient presents with clinical signs and symptoms consistent with diagnosis. He remains in the ICU for advanced care at this time. He requires skilled PT intervention to maximize mobility and safety to allow for safe return to back to previous living situation. Care management is working on determining level of independence at baseline, and discharge planning will be determined by patient progress and anticipated level of independence based on history. He currently demonstrates the following impairment level findings: 1. decreased LE strength 2. decreased activity tolerance 3. decreased safety and independence with transfers, requiring cues and assistance for technique and equipment management Impairments are contributing to the following functional limitations: 1. unable to tolerate household distance ambulation 2. increased fall risk due to decreased safety and independence with transfers, requiring cues and assistance for technique and equipment management Patient is assessed as Moderate [id number] complexity based on the following: History: Patient currently being treated in ICU setting for management of acute respiratory failure, with associated limitations in activity tolerance and mobility. He requires skilled PT intervention to maximize safety and mobility. Examination: functional limitations as above Presentation: evolving Decision Making: moderate complexity Goals: Goals X1 week 1. Supine-Sit : supervision 2. Sit-Supine : supervision 3. Sit-Stand : supervision 4. Stand-Sit : supervision 5. Bed-Chair : supervision with FWW 6. Chair-Bed : supervision with FWW 7. Gait : 20' with FWW, CGA Plan of Care/Treatment Plan: 1-2x/day, 7 days/week x 1 week. Plan of care has been reviewed with the EQUITY ANALYST providing the service under Physical Therapy direction. Initiate Physical Therapy intervention for strengthening, bed mobility, transfers, gait, stairs, balance training, use of assistive device. DISCHARGE RECOMMENDATIONS: Working with Care Management to determine baseline. Will continue monitoring progress to determine need for SNF/LTC upon discharge. TREATMENT CODE/TIME: 9:50- 10:05 ([id number]) Iram Mcgee, PT, DPT [facility]
[2022-10-24] MEDS: CEFEPIME 2 GM in Normal Saline 100 ML IVPB ×2 (10:38→21:48)
[2022-10-24 10:56] LABS: Legionella Ag Detection Urine Negative (Negative)
--- NOTE | 2022-10-24 11:15 | W.PM.PROGNOT ---
Date of Service Date of service: 10/24/22 Time of Service: 11:15 Assessment and Plan Assessment and plan (1) Acute respiratory failure with hypoxia: Status: Acute Assessment and plan: Due to acute exacerbation of CHF, COPD, likely underlying pneumonia, pulmonary fibrosis. Continue CPAP therapy; only wore it for 1 hour last PM. Now on 1l NC. Scheduled + prn nebs. Steroids. Abx. Monitor I/O's and daily weights. Monitor in the ICU. (2) Septic shock: Status: Acute Assessment and plan: In setting of a UTI and likely PNA. Treat with abx, vasopressors, monitor in the ICU. Lactate elevated initially and increased; 3.5>3.4>4.8>4.4>6.2 Gave IV albumin then subsequently 250ml NS boluses x2 and lactate improved to 4.6. Off pressor since 0100 this AM and stable. Can only give fluid in moderation given CHF. Now oral intake should be adequate. (Creatinine improved from 1.5 to 1.0) Monitor. (3) Pneumonia: Status: Acute Assessment and plan: Present on admission. Possibly seen on CXR. Bilateral basilar infiltrates and pleural effusions on CT. No pulmonary embolism noted. Findings suggestive of right heart strain/failure/pulmonary hypertension. Tx w/ vancomycin/cefepime. MRSA screen negative; d/c vancomycin. Obtain urine strep, legionella antigens and sputum for mycoplasma. (4) Urinary tract infection: Status: Acute Assessment and plan: Present on admission. W/ h/o prior UTIs and urinary retention. Has previously grown Klebsiella, pseudomonas. Covering with cefepime. No growth after 24 hours. Has cervantes catheter; planning to d/c when urine output is consistently adequate. Would benefit from US renal that is pending until Tuesday. (5) Acute on chronic right-sided congestive heart failure: Status: Acute Assessment and plan: s/p a dose of furosemide in the ED. Will abstain from further diuresis at this time given low BPs and ongoing picuture of sepsis requring fluids. Monitor I/O's, daily weights. (6) Acute exacerbation of chronic obstructive pulmonary disease (COPD): Status: Acute Assessment and plan: I think this is relatively mild but could certainly be contributing to hypoxia. Treat with steroids, scheduled + prn nebs. Treat suspected PNA. (7) History of fracture of left hip: Status: Acute Assessment and plan: Would increase his risk of having a DVT/PE. CT chest neg for P.E. Worked with PT and did well today. (8) Acute kidney injury: Status: Acute Assessment and plan: In setting of hypotension, h/o urinary retention, UTI, pulmonary hypertension. Now resolved. Cervantes placed in the ER. Will monitor UOP. (9) Hypomagnesemia: Status: Resolved Assessment and plan: Repleted and now 2.7 > 2.5. Monitor. (10) Discharge planning issues: Status: Acute Assessment and plan: DNR C/s PT c/s palliative care. Admit to ICU. Likely can downgrade soon to med-surg status. (11) DVT prophylaxis: Status: Acute Assessment and plan: SC heparin. The patient does have a h/o GI bleeding, is on PPI BID, and there is a low threshold to stop the chemical DVT ppx. Subjective Subjective Patient reports: no new complaints, feels better, tolerating a regular diet and afebrile Exam Narrative Exam Narrative: General: Frail elderly male eating breakfast. NC in place with 1L flow. Neurological: A&Ox2, no obvious focal deficits, able to move all 4 extremities Skin: No rashes/lesions HEENT: sclera clear. Cardiovascular: irregularly irregular rhythm, no murmur Lungs: Diminished breath sounds B anteriorly Gastrointestinal: soft, nontender, nondistended Genitourinary: deferred Extremities: +1 edema at B ankles, BLEs Objective Last Vital Signs Temp 37.5 C 10/24/22 07:30 Pulse 74 10/24/22 07:30 Resp 22 10/24/22 07:30 BP 102/56 L 10/24/22 07:30 Pulse Ox 93 10/24/22 07:53 Laboratory Results - last 24 hr 10/23/22 10/23/22 10/23/22 06:05 12:20 12:20 WBC RBC Hgb Hct MCV MCH MCHC RDW Plt Count MPV Immature Gran % Neutrophils % Band Neutrophils % Lymphocytes % Monocytes % Eosinophils % Basophils % Metamyelocytes % Myelocytes % Nucleated RBC % Absolute Neutrophils Absolute Lymphocytes Absolute Monocytes Absolute Eosinophils Absolute Basophils RBC Morphology VBG Lactate 4.8 H* 6.2 H* Sodium Potassium Chloride Carbon Dioxide Anion Gap BUN Creatinine Est GFR (CKD-EPI 2020) Glucose Calcium Magnesium Random Vancomycin 9.7 05/20/23 05/21/23 05/21/23 16:25 05:45 05:45 WBC 16.57 H RBC 3.57 L Hgb 10.9 L Hct 35.2 L MCV 99 H MCH 30.5 MCHC 31.0 L RDW 17.0 H Plt Count 177 MPV 10.5 Immature Gran % See Differential Neutrophils % 76.0 Band Neutrophils % 6 Lymphocytes % 3.0 Monocytes % 8.0 Eosinophils % 0.0 Basophils % 1.0 Metamyelocytes % 4 Myelocytes % 2 Nucleated RBC % 0.0 Absolute Neutrophils 13.59 H Absolute Lymphocytes 0.50 L Absolute Monocytes 1.33 H Absolute Eosinophils 0.00 Absolute Basophils 0.17 RBC Morphology Normal VBG Lactate 4.6 H* Sodium 141 Potassium 4.7 Chloride 108 H Carbon Dioxide 26.1 Anion Gap 6.9 BUN 45 H Creatinine 1.0 Est GFR (CKD-EPI 2020) 79.97 Glucose 82 Calcium 8.9 Magnesium 2.5 H Random Vancomycin Time Spent with Patient Time Spent with Patient: 25-34 minutes Time was spent: preparing to see the patient(eg.review tests), ordering medications,tests, procedures, referring, communicating with other health pharmacy customer care specialist and indepentently interpreting results
[2022-10-24] MEDS: Normal Saline 250 ML IV (11:30)
[2022-10-24] MEDS: Levalbuterol 1.25 MG/3 ML UPD VIAL UPD ×2 (11:48→18:29)
[2022-10-24] MEDS: Atorvastatin 10 MG TAB PO (20:35)
[2022-10-24] MEDS: Mirtazapine 15 MG TAB 7.5 MG PO (20:35)
[2022-10-24] MEDS: Senna TAB 2 TAB PO (20:36)
[2022-10-25] VITALS (14 sets, daily range): BP systolic 106–134; BP diastolic 61–83; PULSE 68–87; RESP 1–20; TEMP 36.8–37.3; O2SAT 90–98
[2022-10-25] MEDS: Heparin 5,000 UNITS/ML VIAL 5000 UNITS SC ×2 (02:16→16:04)
[2022-10-25] MEDS: Normal Saline Flush 10 ML SYR IVP ×2 (05:22→20:36)
[2022-10-25] MEDS: Ipratropium 0.5 MG/2.5 ML UPD VIAL UPD (05:41)
[2022-10-25] MEDS: Midodrine 2.5 MG TAB 10 MG PO (05:44)
[2022-10-25 05:50] LABS: Abs Immature Grans 0.84 10^3/uL (0.0-0.06); Absolute Basophil Count 0.03 10^3/uL (0.0-0.2); Basophils % 0.2; Eosinophils % 0.1; HCT 36.1 % (40.0-50.0); HGB 11.3 g/dL (13.5-17.5); Immature Grans % 5.2; Lymphocytes % 5.8; MCH 30.5 pg (27.0-33.0); MCHC 31.3 % (32.0-36.0); MCV 98 fL (80-95); Monocytes % 5.5; Neutrophils % 83.2; Platelet Count 178 10^3/uL (130-400); RDW 16.6 % (11.8-14.1); RDW-SD 60.1 fL; WBC 16.31 10^3/uL (4.4-10.8)
[2022-10-25 05:52] LABS: Absolute Eosinophil Count 0.02 10^3/uL (0.0-0.7); Absolute Lymphocyte Count 0.95 10^3/uL (1.2-3.4); Absolute Neutrophil Count 13.57 10^3/uL (1.2-6.7)
[2022-10-25 06:16] LABS: Diff Comment Agrees w/ Instrument; RBC Morphology Normal
--- NOTE | 2022-10-25 07:00 | PUCC_ITS ---
General Date of Service Date of service: 10/25/22 Time of Service: 07:00 Reason for Admission to ICU: Septic Shock Assessment and Plan Assessment and plan (1) Acute respiratory failure with hypoxia: Status: Acute (2) Acute exacerbation of chronic obstructive pulmonary disease (COPD): Status: Acute (3) Diastolic heart failure: Status: Chronic (4) Lung mass: Status: Acute (5) Septic shock: Status: Acute (6) Leukocytosis: Status: Acute (7) Lactic acidosis: Status: Acute (8) Pneumonia: Status: Acute (9) Acute kidney injury: Status: Acute (10) Elevated troponin: Status: Acute Assessment and plan: This is a 72 yo admitted with septic shock due to pneumonia and UTI who required vasopressors. He has since been weaned off of IV pressors, but does remain on oral pressors (midodrine). I do recommend weaning this off (I have changed to 5mg bid from 10mg tid). He is on broad spectrum antibiotic coverage with cefepi me and is improving. His strep pneumo urine antigen is still pending but his legionella is negative. He was still on some oxygen and did require PAP at one, point, however this is also much improved. On POCUS I do think he appeared to be volume overloaded and I would recommend some gentle diuresis today. I do worry about the LLL consolidation as it was present in Jul and is still there. I will arrange an outpatient PET in about 1 month to assess this further. Recommendations Pulmonary: Hypoxic respiratory failure - continue to wean O2 - IS and Acapella CPFE with exacerbation - continue home Stiolto - s/p steroids - prn nebs LLL lung mass - will arrange outpatient PET in 1 month Cardiac: Septic Shock - s/p CVC and vasopressors - decrease midodrine from 10mg tid to 5mg bid - tomorrow stop midodrine if he tolerates Troponin elevation - repeat troponin today given jump on 10/23 - repeat EKG given ST depressions A. fib - on digoxin - home med Renal: NHI, improved - CTM UOP - strict I/O's Lactic acidosis - resolved I&O: Intake & Output 10/22/22 10/23/22 10/24/22 10/25/22 23:59 23:59 23:59 23:59 Intake Total 1875.181 / 0086.770 2113.192 / 2316.192 Output Total 1075 / 1200 825 / 1275 825 / 825 Balance 800.181 / 136.347 0491.192 / 1041.192 -825 / -825 Weight 50.7 kg 48.3 kg 51.7 kg Daily Fluid Goal:: -1L in 24 hours recommended GI Nutrition: Nutrition - on diet Date of Last Bowel Movement: 10/21/22 Infectious Disease: Pneumonia - can transition to Augmentin PO for a total 10 day course - negative legionella antigen - pending strep pneumo antigen - blood and sputum cultures negative thus far UTI - has received cefepime, no further treatment for this required - urine culture negative to date Hematologic: Leukocytosis - due to infecitons Anemia - chronic, CTM Neurologic: No acute concerns Endocrine: No acute concerns Lines: R IJ CVC - can be removed today Garza PIV Prophylaxis: Heparin Code Status: Resuscitation Status DNR Subjective Critical and life-threatening events over the past 24 hours: This is a 72 yo whom I know well with CPFE. He is admitted to the ICU for septic shock due to a pneumonia and UTI. His admission details can be seen in his H&P. He required vasopressors, but has been weaned off of them, although is on midodrine. His chest CT shows a dense LLL consolidation, that was present in Jul as well. He tells me he is feeling much better. He does not have pain and has a good appetite. Exam Narrative Exam Narrative: Gen: NAD, normal respiratory effort, well-nourished HENT: PERRL Chest: No respiratory distress, normal appearance of chest, diminished breath sounds bilaterally with intermittent scant wheeze Heart: regular rate and rhythym, no murmurs, rubs or gallops Abdomen: Non-distended, soft, non tender Extremities: No clubbing, edema, cyanosis, rashes Neuro: AAOx3 , non focal Psych: cooperative, appropriate mental affect Most Recent VS/Results Last Vital Signs Temp 36.8 C 10/25/22 00:00 Pulse 70 10/25/22 06:00 Resp 20 10/25/22 06:00 BP 131/74 10/25/22 06:00 Pulse Ox 97 10/25/22 06:00 Laboratory Results - last 24 hr 10/24/22 10/24/2210/25/23 05:45 05:45 05:40 WBC 16.57 H RBC 3.57 L Hgb 10.9 L Hct 35.2 L MCV 99 H MCH 30.5 MCHC 31.0 L RDW 17.0 H Plt Count 177 MPV 10.5 Immature Gran % See Differential Neutrophils % 76.0 Band Neutrophils % 6 Lymphocytes % 3.0 Monocytes % 8.0 Eosinophils % 0.0 Basophils % 1.0 Metamyelocytes % 4 Myelocytes % 2 Nucleated RBC % 0.0 Absolute Neutrophils 13.59 H Absolute Lymphocytes 0.50 L Absolute Monocytes 1.33 H Absolute Eosinophils 0.00 Absolute Basophils 0.17 RBC Morphology Normal VBG Lactate 1.0 Sodium 141 Potassium 4.7 Chloride 108 H Carbon Dioxide 26.1 Anion Gap 6.9 BUN 45 H Creatinine 1.0 Est GFR (CKD-EPI 2020) 79.97 Glucose 82 Calcium 8.9 Magnesium 2.5 H 10/25/22 05:40 WBC 16.31 H RBC 3.70 L Hgb 11.3 L Hct 36.1 L MCV 98 H MCH 30.5 MCHC 31.3 L RDW 16.6 H Plt Count 178 MPV 10.0 Immature Gran % 5.2 Neutrophils % 83.2 Band Neutrophils % Lymphocytes % 5.8 Monocytes % 5.5 Eosinophils % 0.1 Basophils % 0.2 Metamyelocytes % Myelocytes % Nucleated RBC % 0.0 Absolute Neutrophils 13.57 H Absolute Lymphocytes 0.95 L Absolute Monocytes 0.90 H Absolute Eosinophils 0.02 Absolute Basophils 0.03 RBC Morphology Normal VBG Lactate Sodium Potassium Chloride Carbon Dioxide Anion Gap BUN Creatinine Est GFR (CKD-EPI 2020) Glucose Calcium Magnesium Review of Systems All systems reviewed & are unremarkable except as noted in HPI and below Time spent with patient Time spent in Critical Care: 45 Time spent in Critical care included: Performing procedures not included in c.c time, Chart review, Documenting critically ill care, Time at immediate bedside and Discussing critically ill care with other medical staff Multi-Disciplinary Checklist Lines/Tubes CENTRAL LINE: yes, Central Line Day#: 3 ARTERIAL LINE: no GARZA: yes, Garza Day#: 3 ENDOTRACHEAL TUBE: no ICU Maintenance GLUCOSE 140-180mg/dL: yes NUTRITION AT GOAL: yes PRESSURE ULCER: no RESTRAINTS: no ANTIBIOTICS(if yes, consider Stewardship): Yes Social Issues FAMILY UPDATED: no, Reason/Intervention: patient able PT/OT: yes GOALS/DISPOSITION/PHYSICIST NUCLEAR: yes CODE STATUS: DNR/DNI Prophylaxis DVT PROPHYLAXIS: yes GI PROPHYLAXIS: no Pocus Exam Limited Cardiac Exam DATE OF EXAM: 10/25/22 TIME OF EXAM: 07:30 PROVIDER THAT PERFORMED THE STUDY: Majo KRAUS THIS A REPEAT EXAM DURING THIS ENCOUNTER: no REASON FOR EXAM: Evaluation of LV function and Septic Shock VISUALIZED STRUCTURES: left atrium, left ventricle, LVOT, right atrium, right ventricle, aortic valve, mitral valve, Interventricular septum and IVC VIEW OBTAINED: Apical 4-Chamber, Parasternal long-axis, Parasternal short-axis and Subxiphoid PERTINENT FINDINGS/IMPRESSION: Plethoric IVC, RV dilation and Other Aortic valve calcification? ; No LV dysfunction, No pericardial effusion and No RV dysfunction INCIDENTAL FINDINGS: Pleural effusion on left Exam complete Limited Thoracic Lung Exam DATE OF EXAM: 10/25/22 TIME OF EXAM: 07:30 PROVIDER THAT PERFORMED THE STUDY: Majo Ayala IS THIS A REPEAT EXAM DURING THIS ENCOUNTER: No REASON FOR EXAM: Hypotension and Pneumonia VISUALIZED STRUCTURES: right anterior, left anterior, right posterior and left posterior PERTINENT FINDINGS/IMPRESSION: Pneumonia, Left pleural effusion and Right pl eural effusion; no B-Lines/left side and no B-lines/left side INCIDENTAL FINDINGS: Mild Ascites
[2022-10-25] MEDS: Tiotropium/Olodaterol 10 PUFF INHALER 2 PUFF IH (07:48)
--- NOTE | 2022-10-25 08:47 | PDOC.CMPRO ---
Date of service: 10/25/22 Time of Service: 08:47 Care Management Progress Note Progress Note Text Progress Note Text: S/O: Ilia continues to require further medical workup and treatment. He is currently in the ICU, but is Med Surg status. Ilia was sitting up in bed when CM met with him. He is awake and engages in conversation and appears fragile. Anticipate, Ilia will discharge home with full [facility] services vs. SNF for STR based on his progress with PT. Ilia is agreeable to STR, if needed. Pulmonology is consulted, outpatient PET scan is recommended in 1 month. CM will continue to follow. A: 72 year old male admitted to [facility] on 10/22/22 for Acute respiratory failure with hypoxia, septic shock, UTI P:Ilia will likely be discharged home when medically ready, possibly with new home health services. He will follow up with community providers and plan of care and transport via [facility]. CM will continue to support Ilia and assess for ongoing discharge concerns.
[2022-10-25] MEDS: Polyethylene Glycol 3350 17 GM PACKET PO (09:16)
[2022-10-25] MEDS: Cholecalciferol (Vitamin D3) 1,000 UNIT TAB 2000 UNITS PO (09:16)
[2022-10-25] MEDS: Aspirin 81 MG CHEW 162 MG PO (09:17)
[2022-10-25] MEDS: Gabapentin 300 MG CAP PO ×3 (09:17→20:38)
[2022-10-25] MEDS: Multivitamin w/Minerals TAB 1 TAB PO (09:18)
[2022-10-25] MEDS: Digoxin 0.125 MG TAB PO (09:18)
--- NOTE | 2022-10-25 09:21 | NUR.NOTE ---
Nursing Note: Accessed patient chart to determine how many EKG orders were in the chart from the ED. There was an outstanding EKG in ordered status. There are no EKG's in the [facility] system that are outstanding. EKG order was deleted.
--- NOTE | 2022-10-25 10:00 | RT.EKG_ITS ---
APPROVED REPORT Exam: Resting ECG Reason for Exam: troponin elevation Patient Location: I HR:78 bpm ECG Measurements Heart Rate 78 AXIS WI [id number] P [id number] QRSd 96 QRS 65 QT 332 T -27 QTc 379 Conclusion Atrial fibrillation...V-rate 71- 92, irreg A-activity Low voltage, extremity and precordial leads...extremity<0.5mV, precordial<1.0mV f
[2022-10-25] MEDS: CEFEPIME 2 GM in Normal Saline 100 ML IVPB ×2 (10:28→21:07)
[2022-10-25] MEDS: Ferrous Gluconate 324 MG TAB PO ×2 (10:29→20:38)
[2022-10-25] MEDS: Bacitracin 1 PACKET TP (11:33)
[2022-10-25 12:36] LABS: Troponin I 417 ng/L (<or=60)
--- NOTE | 2022-10-25 15:26 | PGE_ITS ---
Date of Service Date of service: 10/25/22 Time of Service: 15:27 Assessment and Plan Assessment and plan (1) Acute respiratory failure with hypoxia: Status: Acute Assessment and plan: Due to acute exacerbation of CHF, COPD, likely underlying pneumonia, pulmonary fibrosis. Weaning from supplemental O2. Scheduled + prn nebs. Steroids. Abx. Monitor I/O's and daily weights. Monitor in the ICU. Cont IS and Acapella (2) Septic shock: Status: Acute Assessment and plan: In setting of a UTI and likely PNA. Treat with abx, vasopressors, monitor in the ICU. Lactate elevated initially and increased; 3.5>3.4>4.8>4.4>6.2 Gave IV albumin then subsequently 250ml NS boluses x2 and lactate improved to 4.6. Off pressors. Decreased midodrine from 10mg TID to 5mg BID and stop in AM if pressures allow. (3) Pneumonia: Status: Acute Assessment and plan: Present on admission. Possibly seen on CXR. Bilateral basilar infiltrates and pleural effusions on CT. No pulmonary embolism noted. Findings suggestive of right heart strain/failure/pulmonary hypertension. Tx w/ vancomycin/cefepime. MRSA screen negative; d/c vancomycin. Urine strep antigen pending, legionella antigen neg. (4) Urinary tract infection: Status: Acute Assessment and plan: URine cx neg. D/C cervantes. (5) Acute on chronic right-sided congestive heart failure: Status: Acute Assessment and plan: s/p a dose of furosemide in the ED. Had been holding diuretics d/t low BP. BP now recovered and initiated lasix 20mg IV BID. (6) Acute exacerbation of chronic obstructive pulmonary disease (COPD): Status: Acute Assessment and plan: I think this is relatively mild but could certainly be contributing to hypoxia. Cont stiolto and prn albutero. Finished steroids. Treat suspected PNA. (7) History of fracture of left hip: Status: Acute Assessment and plan: Would increase his risk of having a DVT/PE. CT chest neg for P.E. Worked with PT and did well today. (8) Acute kidney injury: Status: Acute Assessment and plan: In setting of hypotension, h/o urinary retention, UTI, pulmonary hypertension. Now resolved. D/C'd cervantes. Now on lasix; monitor. (9) Hypomagnesemia: Status: Resolved Assessment and plan: Repleted and now 2.7 > 2.5. Monitor. (10) Discharge planning issues: Status: Acute Assessment and plan: DNR C/s PT c/s palliative care. Downgrade to med-surg status. (11) DVT prophylaxis: Status: Acute Assessment and plan: SC heparin. The patient does have a h/o GI bleeding, is on PPI BID, and there is a low threshold to stop the chemical DVT ppx. (12) Lung mass: Status: Acute Assessment and plan: LLL. Dr Ayala following. PET scan to be scheduled. Subjective Subjective Patient reports: no new complaints, feels better and afebrile; denies nausea, vomiting or shortness of breath Interval history since last seen: Denies CP Exam Narrative Exam Narrative: General: Frail elderly male eating breakfast. NC in place with 0.5L flow. Neurological: A&Ox2, no obvious focal deficits, able to move all 4 extremities Skin: No rashes/lesions HEENT: sclera clear. Cardiovascular: irregularly irregular rhythm, no murmur Lungs: Diminished breath sounds B anteriorly Gastrointestinal: soft, nontender, nondistended Genitourinary: deferred Extremities: No edema, calf pain. Objective Last Vital Signs Temp 37.3 C 10/25/22 12:17 Pulse 72 10/25/22 12:17 Resp 16 10/25/22 12:17 BP 106/61 10/25/22 12:17 Pulse Ox 90 L 10/25/22 12:17 Laboratory Results - last 24 hr 10/23/22 10/25/22 10/25/22 02:35 05:40 05:40 WBC 16.31 H RBC 3.70 L Hgb 11.3 L Hct 36.1 L MCV 98 H MCH 30.5 MCHC 31.3 L RDW 16.6 H Plt Count 178 MPV 10.0 Immature Gran % 5.2 Neutrophils % 83.2 Lymphocytes % 5.8 Monocytes % 5.5 Eosinophils % 0.1 Basophils % 0.2 Nucleated RBC % 0.0 Absolute Neutrophils 13.57 H Absolute Lymphocytes 0.95 L Absolute Monocytes 0.90 H Absolute Eosinophils 0.02 Absolute Basophils 0.03 RBC Morphology Normal VBG Lactate 1.0 Troponin I Urine Legionella Ag Negative 10/25/22 12:00 WBC RBC Hgb Hct MCV MCH MCHC RDW Plt Count MPV Immature Gran % Neutrophils % Lymphocytes % Monocytes % Eosinophils % Basophils % Nucleated RBC % Absolute Neutrophils Absolute Lymphocytes Absolute Monocytes Absolute Eosinophils Absolute Basophils RBC Morphology VBG Lactate Troponin I 417 H* Urine Legionella Ag Time Spent with Patient Time Spent with Patient: 25-34 minutes Time was spent: preparing to see the patient(eg.review tests), obtaining and/or reviewing separately otained hiistory, ordering medications,tests, procedures, referring, communicating with other health rn transitional care and indepentently interpreting results
[2022-10-25] MEDS: Furosemide 20 MG/2 ML VIAL IVP (16:04)
[2022-10-25] MEDS: Midodrine 2.5 MG TAB 5 MG PO (20:37)
[2022-10-25] MEDS: Senna TAB 2 TAB PO (20:37)
[2022-10-25] MEDS: Mirtazapine 15 MG TAB 7.5 MG PO (20:37)
[2022-10-25] MEDS: Pantoprazole 40 MG TABCR PO (20:38)
[2022-10-25] MEDS: Atorvastatin 10 MG TAB PO (21:56)
[2022-10-26] MEDS: Heparin 5,000 UNITS/ML VIAL 5000 UNITS SC (03:22)
[2022-10-26 03:30] VITALS: BP 120/68; PULSE 65; RESP 19; TEMP 36.5; O2SAT 97
[2022-10-26 06:10] LABS: Abs Immature Grans 0.16 10^3/uL (0.0-0.06); Absolute Basophil Count 0.05 10^3/uL (0.0-0.2); Absolute Eosinophil Count 0.19 10^3/uL (0.0-0.7); Absolute Monocyte Count 0.75 10^3/uL (0.1-0.8); Basophils % 0.4; Eosinophils % 1.4; HCT 39.7 % (40.0-50.0); HGB 12.6 g/dL (13.5-17.5); Immature Grans % 1.2; Lymphocytes % 10.8; MCHC 31.7 % (32.0-36.0); MCV 95 fL (80-95); MPV 10.1 fL (8.0-11.0); Monocytes % 5.5; Neutrophils % 80.7; Platelet Count 209 10^3/uL (130-400); RDW 16.3 % (11.8-14.1); RDW-SD 57.1 fL; WBC 13.58 10^3/uL (4.4-10.8)
[2022-10-26 06:13] LABS: Absolute Lymphocyte Count 1.47 10^3/uL (1.2-3.4); Absolute Neutrophil Count 10.96 10^3/uL (1.2-6.7)
[2022-10-26 06:45] LABS: Procalcitonin 5.6 ng/mL
[2022-10-26 07:00] VITALS: BP 98/52; PULSE 79; RESP 22; TEMP 36.8; O2SAT 90
--- NOTE | 2022-10-26 07:07 | PUCC_ITS ---
General Date of Service Date of service: 10/26/22 Time of Service: 07:07 Reason for Admission to ICU: Septic Shock Assessment and Plan Assessment and plan (1) Acute respiratory failure with hypoxia: Status: Acute (2) Acute exacerbation of chronic obstructive pulmonary disease (COPD): Status: Acute (3) Diastolic heart failure: Status: Chronic (4) Lung mass: Status: Acute (5) Septic shock: Status: Acute (6) Leukocytosis: Status: Acute (7) Lactic acidosis: Status: Acute (8) Pneumonia: Status: Acute (9) Acute kidney injury: Status: Acute (10) Elevated troponin: Status: Acute Assessment and plan: This is a 72 yo admitted with septic shock due to pneumonia and UTI who required vasopressors. He has now been weaned off both IV and oral pressors. He his clinically very much improved and is off supplemental O2. He has also diuresed effectively while maintaining his blood pressure. He no longer needs ICU level care. Recommendations Pulmonary: Hypoxic respiratory failure, resolved - IS and Acapella CPFE - continue home Stiolto - s/p steroids - prn nebs LLL lung mass - will arrange outpatient PET in 1 month Cardiac: Septic Shock, resolved - s/p CVC and vasopressors - midodrine discontinued this morning Troponin elevation - improved A. fib - on digoxin - home med Renal: NHI, improved - CTM UOP - strict I/O's Lactic acidosis - resolved I&O: Intake & Output 10/23/22 10/24/22 10/25/22 10/26/22 23:59 23:59 23:59 23:59 Intake Total 1875.181 / 2190.326 7103.192 / 2316.192 940 / 940 Output Total 1075 / 1200 825 / 1275 3700 / 3700 950 / 950 Balance 800.181 / 638.828 7634.192 / 1041.192 -2760 / -2760 -930 / -930 Weight 48.3 kg 51.7 kg 50.3 kg Daily Fluid Goal:: -1L in 24 hours recommended GI Nutrition: Nutrition - on diet Date of Last Bowel Movement: 10/21/22 Infectious Disease: Pneumonia - can transition to Augmentin PO for a total 10 day course - negative legionella antigen - pending strep pneumo antigen - blood and sputum cultures negative thus far UTI - has received cefepime, no further treatment for this required - urine culture negative to date Hematologic: Leukocytosis - due to infecitons Anemia - chronic, CTM Neurologic: No acute concerns Endocrine: No acute concerns Lines: Garza PIV Prophylaxis: Heparin Code Status: Resuscitation Status DNR Subjective Critical and life-threatening events over the past 24 hours: Ilia ricksuresed very well and his blood pressure has been stable with the decreased midodrine dose. His oxygen requirements are minimal and his labs have greatly improved. He is feeling well today. Exam Narrative Exam Narrative: Gen: NAD, normal respiratory effort, well-nourished HENT: PERRL Chest: No respiratory distress, normal appearance of chest, diminished breath sounds bilaterally Heart: regular rate and rhythym, no murmurs, rubs or gallops Abdomen: Non-distended, soft, non tender Extremities: No clubbing, edema, cyanosis, rashes Neuro: AAOx3 , non focal Psych: cooperative, appropriate mental affect Most Recent VS/Results Last Vital Signs Temp 36.5 C 10/26/22 03:30 Pulse 65 10/26/22 03:30 Resp 19 10/26/22 03:30 BP 120/68 10/26/22 03:30 Pulse Ox 97 10/26/22 03:30 Laboratory Results - last 24 hr 10/23/22 10/25/22 10/26/22 02:35 12:00 05:30 WBC 13.58 H RBC 4.20 L Hgb 12.6 L Hct 39.7 L MCV 95 MCH 30.0 MCHC 31.7 L RDW 16.3 H Plt Count 209 MPV 10.1 Immature Gran % 1.2 Neutrophils % 80.7 Lymphocytes % 10.8 Monocytes % 5.5 Eosinophils % 1.4 Basophils % 0.4 Nucleated RBC % 0.0 Absolute Neutrophils 10.96 H Absolute Lymphocytes 1.47 Absolute Monocytes 0.75 Absolute Eosinophils 0.19 Absolute Basophils 0.05 Troponin I 417 H* Procalcitonin Urine Legionella Ag Negative 10/26/22 05:30 WBC RBC Hgb Hct MCV MCH MCHC RDW Plt Count MPV Immature Gran % Neutrophils % Lymphocytes % Monocytes % Eosinophils % Basophils % Nucleated RBC % Absolute Neutrophils Absolute Lymphocytes Absolute Monocytes Absolute Eosinophils Absolute Basophils Troponin I Procalcitonin 5.6 Urine Legionella Ag Review of Systems All systems reviewed & are unremarkable except as noted in HPI and below Time spent with patient Time spent in Critical Care: 40 Time spent in Critical care included: Chart review, Documenting critically ill care, Time at immediate bedside and Discussing critically ill care with other medical staff Multi-Disciplinary Checklist Lines/Tubes CENTRAL LINE: no ARTERIAL LINE: no GARZA: yes, Garza Day#: 4 ENDOTRACHEAL TUBE: no ICU Maintenance GLUCOSE 140-180mg/dL: yes NUTRITION AT GOAL: yes PRESSURE ULCER: no RESTRAINTS: no ANTIBIOTICS(if yes, consider Stewardship): Yes Social Issues FAMILY UPDATED: no, Reason/Intervention: patient able PT/OT: yes GOALS/DISPOSITION/BOX SEALING 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
[2022-10-26] MEDS: Tiotropium/Olodaterol 10 PUFF INHALER 2 PUFF IH (08:23)
--- NOTE | 2022-10-26 08:33 | PDOC.CMDIS ---
Date of service: 10/26/22 Time of Service: 08:33 LACE Index Scoring Tool Questions: Length of Stay (in days): 4 - 6 Was the patient admitted via the E.D.?: Yes Comorbidities: Diabetes w/o Complication, Congestive Heart Failure and Mild Liver/Renal Disease E.D. Visits: 7 Answers: Total Score: 16 Risk of Readmission: High Risk Care Management Discharge Plan Reason for Hospitalization: acute respiratory failure with hypoxia Discharge Plan: Ilia is discharged home with New [facility] RN/PT/OT/RENT COLLECTOR services. He is transported via [facility] private vehicle. Ilia will follow up with community providers and discharge plan of care as prescribed. Patient/Family Education Needs: Review discharge instructions, limitations, medications and plan to follow up with community providers. Discuss ask me three. Services Needed at Discharge: Home Health Care Services ([facility] New RN/PT/OT/RENT COLLECTOR) and Transportation ([facility], coordinated by )
[2022-10-26] MEDS: Polyethylene Glycol 3350 17 GM PACKET PO (08:46)
[2022-10-26] MEDS: Normal Saline Flush 10 ML SYR IVP (08:46)
[2022-10-26 08:47] VITALS: PULSE 78
[2022-10-26] MEDS: Aspirin 81 MG CHEW 162 MG PO (08:47)
[2022-10-26] MEDS: Gabapentin 300 MG CAP PO (08:47)
[2022-10-26] MEDS: Pantoprazole 40 MG TABCR PO (08:47)
[2022-10-26] MEDS: Furosemide 20 MG/2 ML VIAL IVP (08:47)
[2022-10-26] MEDS: Digoxin 0.125 MG TAB PO (08:47)
[2022-10-26] MEDS: Multivitamin w/Minerals TAB 1 TAB PO (08:52)
[2022-10-26] MEDS: Cholecalciferol (Vitamin D3) 1,000 UNIT TAB 2000 UNITS PO (08:52)
--- NOTE | 2022-10-26 10:20 | DSE_ITS ---
Date of service: 10/26/22 Time of Service: 10:20 DS: Diagnosis Discharge Diagnosis (1) Acute respiratory failure with hypoxia: Status: Acute Asessment and Plan: Combination of pulmonary edema from CHF and pneumonia. Initially received a dose of IV lasix but d/t low BP, further diureses was held and he required several 250ml NS boluses. He was eventually weaned off norepinephrine. He was also on midodrine that he was taking at time of presentation. He was weaned off supplemental O2. (2) Acute exacerbation of chronic obstructive pulmonary disease (COPD): Status: Acute Asessment and Plan: Cont home Stiolto PRN albuterol. Stable. (3) Diastolic heart failure: Status: Chronic Asessment and Plan: Will continue lasix 20mg po daily for 1 week. Not chronically on diuretic. (4) Lung mass: Status: Acute Asessment and Plan: Dr Ayala scheduling a PET scan to be done in 1 month. (5) Septic shock: Status: Acute Asessment and Plan: Resolved. (6) Pneumonia: Status: Acute (7) Acute kidney injury: Status: Acute Asessment and Plan: Bilateral basilar infiltrates on CT chest. WBC count nearing normal. Cont oral cefpodoxime 200mg BID for 10 doses. (8) Elevated troponin: Status: Acute Asessment and Plan: NSTEMI; demand ischemia. Discharge Plan Disposition Patient Disposition: Home W/Home Health Services Condition: Good Discharge Details Reason For Visit: Acute Hypoxic Respiratory Failure,Hypotension,NHI Admit Date/Time: 10/22/22 23:25 Admit Provider: Shakila Mayberry Attending Provider: Shakila Mayberry [facility] Course: Mr Kang is a 72 year old male with PMHx of CAD s/p CABG, Afib not on anticoagulation due to h/o GI bleeding, R-sided CHF, pulmonary hypertension, COPD, pulmonary fibrosis, who was brought to [facility] ED by ambulance for shortness of breath. Per ER provider, his O2 sats were 67% on RA for EMS, so he was placed on CPAP and transported to [facility]. Here, he was saturating in high? 70s - low 80s on BiPAP with FiO2 of 100%. He was hypotensive with SBPs in the 70s. His clinical picture was consistent with acute CHF as well as possible COPD exacerbation, though the latter was less clear. His POCUS of the lungs revealed B lines and pleural effusions, as performed by the ER provider. He was administered 40 mg of IV furosemide. UOP since then is unclear as cervantes catheter is being placed right now. The patient is also getting a central line with plans to initiate norepinephrine.? A hospitalist admission to the ICU was requested.? See Dagnosis PCP follow up in 1-2 weeks. Home Meds and New Rx's Prescriptions: New furosemide [Lasix] 20 mg tablet 20 mg PO DAILY Qty: 7 0RF cefpodoxime 200 mg tablet 200 mg PO BID Qty: 10 0RF Rx Instructions: must administer with a meal/food First dose with dinner today, 10/26/22. Continued Boost Breeze Nutritional 0.04-1.05 gram-kcal/mL liquid 50 ml PO BID Nicotrol 10 mg cartridge 1 inh inhalation 4-6XD PRN guaifenesin [Robafen] 100 mg/5 mL liquid 200 mg PO Q4H PRN aspirin 81 mg capsule 162 mg PO DAILY polyethylene glycol 3350 17 gram powder in packet 17 g PO DAILY sennosides [Senokot] 8.6 mg tablet 17.2 mg PO HS albuterol sulfate 90 mcg/actuation HFA aerosol inhaler 2 puff inhalation Q4H PRN loperamide 2 mg capsule 4 mg PO .COMPLEX PRN Rx Instructions: 4 mg orally after first loose stool, then 1 capsule after subsequent loose stools. Maximum daily dose is 16mg PRN; gabapentin 300 mg capsule 300 mg PO TID Patient Comments: Take 1 capsule by mouth three times a day One Daily Multi-Vit w-Mineral 4.5 mg iron tablet 1 tab PO DAILY cholecalciferol (vitamin D3) 50 mcg (2,000 unit) tablet 50 mcg PO DAILY tamsulosin 0.4 mg capsule 0.4 mg PO HS Stiolto Respimat 2.5-2.5 mcg/actuation mist 2 puff INHALATION DAILY atorvastatin 10 mg tablet 10 mg PO HS acetaminophen 500 mg Tablet 1,000 mg PO TID Qty: 0 0RF digoxin 125 mcg (0.125 mg) Tablet 0.125 mg PO DAILY Qty: 0 0RF ferrous gluconate 324 mg (38 mg iron) Tablet 324 mg PO BID@1000,2200 Qty: 0 0RF metoprolol succinate 25 mg Tablet Extended Release 24 Hr 25 mg PO DAILY Qty: 0 0RF Rx Instructions: hold for SBP<100 or HR<60 mirtazapine 7.5 mg tablet 7.5 mg PO HS Qty: 0 0RF Patient Comments: Take 1 tablet by mouth at bedtime pantoprazole 40 mg tablet,delayed release (DR/EC) 40 mg PO BID Discontinued midodrine 5 mg Tablet 5 mg PO TID Qty: 0 0RF Discharge Instructions Additional Instructions: Lasix daily for one week. Activity:: Activity as Tolerated Equipment/Supplies:: No Equipment Needed Diet:: Low Sodium Discharge Orders Discharge Orders: Discharge Order (Routine); Ordered 10/26/22 Ordered By: Mio Navarro DS: Summary Time Spent with Patient providing and/or coordinating discharge services: Greater than 30 minutes Status at Discharge Functional status at discharge: uses cane/walker Overall status at discharge: patient is progressing back to baseline Mental Status: mental status grossly normal Speech and Movement: speech clear Mood: congruent mood Affect: normal affect Exam Narrative Exam Narrative: General: Frail elderly resting comfortably in bed. On RA. Neurological: A&Ox2, no obvious focal deficits, able to move all 4 extremities Skin: No rashes/lesions HEENT: sclera clear. Cardiovascular: irregularly irregular rhythm, no murmur Lungs: Diminished breath sounds B anteriorly Gastrointestinal: soft, nontender, nondistended Genitourinary: deferred Extremities: No edema, calf pain. Psych Mental Status: mental status grossly normal Speech and Movement: speech clear Mood: congruent mood Affect: normal affect DS: Data Vitals/I&O Vitals and I&O: Vital Signs Temperature 36.8 C 10/26/22 07:00 Temperature Source Temporal Artery Scan 10/26/22 07:00 Pulse 78 10/26/22 08:47 Pulse Rhythm Irregular 10/26/22 08:00 Pulse 66 10/24/22 00:01 Respiratory Rate 22 10/26/22 07:00 Respiratory Effort Normal, Non-Labored 10/26/22 08:00 Respiratory Depth Normal 10/26/22 08:00 Respiratory Pattern Normal 10/26/22 08:00 Blood Pressure 98/52 L 10/26/22 07:00 Blood Pressure Mean 91 10/25/22 04:00 Blood Pressure Position Supine 10/25/22 04:00 Pulse Oximetry 90 L 10/26/22 07:00 Oxygen Delivery Method Room Air 10/26/22 07:00 Oxygen Flow Rate 0 10/26/22 07:00 Fraction of Inspired Oxygen (FIO2) 25 10/25/22 07:53 Pain Level 0 10/26/22 07:00 Comment MAP 80 10/26/22 03:30 Intake & Output 10/25/22 10/25/22 10/26/22 11:59 23:59 11:59 Intake Total 340 / 940 600 / 940 20 / 20 Output Total 1250 / 3700 2450 / 3700 1400 / 1400 Balance -910 / -2760 -1850 / -2760 -1380 / -1380 Weight 51.7 kg 50.3 kg Intake: IV 100 / 220 120 / 220 20 / 20 Oral 240 / 720 480 / 720 Output: Urine 1250 / 3700 2450 / 3700 1400 / 1400 Other: Urine Color Yellow Pale Urine Appearance Clear Clear Clear Urine Odor None None Comment cervantes which is patent and draining, urine is clear, color is yellow. void x 4 void x 3 Voiding Methods Urinal Urinal Urinal Data Completed and Pending Labs on day of discharge: Labs from last 24 hours 10/26/22 10/26/22 10/25/22 05:30 05:30 12:00 WBC 13.58 H RBC 4.20 L Hgb 12.6 L Hct 39.7 L MCV 95 MCH 30.0 MCHC 31.7 L RDW 16.3 H Plt Count 209 MPV 10.1 Immature Gran % 1.2 Neutrophils % 80.7 Lymphocytes % 10.8 Monocytes % 5.5 Eosinophils % 1.4 Basophils % 0.4 Nucleated RBC % 0.0 Absolute Neutrophils 10.96 H Absolute Lymphocytes 1.47 Absolute Monocytes 0.75 Absolute Eosinophils 0.19 Absolute Basophils 0.05 Troponin I 417 H* Procalcitonin 5.6 M. pneumoniae Source M. pneumoniae (PCR) 10/25/22 07:55 WBC RBC Hgb Hct MCV MCH MCHC RDW Plt Count MPV Immature Gran % Neutrophils % Lymphocytes % Monocytes % Eosinophils % Basophils % Nucleated RBC % Absolute Neutrophils Absolute Lymphocytes Absolute Monocytes Absolute Eosinophils Absolute Basophils Troponin I Procalcitonin M. pneumoniae Source Pending M. pneumoniae (PCR) Pending 10/25/22 07:55 Sputum Sputum Culture - Pending Preliminary micro results at discharge 10/23/22 02:35 Blood Culture - Preliminary Blood NO GROWTH 72 HOURS 10/23/22 00:30 Blood Culture - Preliminary Blood NO GROWTH 72 HOURS 10/25/22 07:55 Sputum Culture - Pending Sputum PFSH All Active Problems Lung mass (Acute) Elevated troponin (Acute) Lactic acidosis (Acute) Leukocytosis (Acute) Acute kidney injury (Acute) Discharge planning issues (Acute) Hypotension (Acute) DNR (do not resuscitate) (Acute) DNR, but would like trial of intubation. See 09/26 Note History of fracture of left hip (Acute) S/P IM NAIL DOS: 08/28/22 Acute bronchitis (Acute) Left foot pain (Acute) Palliative care patient (Acute) Underweight (Acute) Diastolic heart failure (Chronic) Closed intertrochanteric fracture of left femur (Acute) s/p IMN fixation (08/28/22) Fall (Acute) Blunt head trauma (Acute) Contusion of elbow, left (Acute) Contusion of left leg (Acute) Closed fracture of left hip (Acute) Mild cognitive impairment (Acute) Advanced care planning/counseling discussion (Acute) Literacy level of illiterate (Acute) Palliative care encounter (Acute) Acute respiratory failure with hypoxia (Acute) DVT prophylaxis (Acute) Acute exacerbation of chronic obstructive pulmonary disease (COPD) (Acute) Acute on chronic right-sided congestive heart failure (Acute) Pneumonia (Acute) Septic shock (Acute) Hypoxia (Acute) Depression (Chronic) Dental abscess (Acute) 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) Abnormal chest CT (Acute) Full code status (Acute) Urinary tract infection (Acute) 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) CAP (community acquired pneumonia) (Acute) Generalized weakness (Acute) Skin tear of left elbow without complication (Acute) Chronic obstructive lung disease (Chronic) Tricuspid regurgitation (Chronic) CAD (coronary artery disease) (Chronic) Hypertension (Chronic) Medical History Abdominal pain Abnormal radiologic findings on diagnostic imaging of renal pelvis, ureter, or bladder Acute on chronic anemia Acute on chronic diastolic (congestive) heart failure Acute on chronic systolic CHF (congestive heart failure) [place] [facility] [place]...EGD 04/2021 with friable mucosa. SDOne at that time because of GI blooed Afib Alcohol abuse Alcohol abuse, continuous drinking behavior Anemia Bilateral lower extremity edema CAD (coronary artery disease) of artery bypass graft Cerumen impaction CHF, acute on chronic Closed intertrochanteric fracture Confusion state COVID-19 COVID-19 Diabetes mellitus Difficulty reading Edema Encounter for colorectal cancer screening Epididymitis, right (08/02/16) Essential hypertension Failure to thrive Fall GERD (gastroesophageal reflux disease) GI bleed GI bleeding H/O malignant neoplasm of stomach Heart failure, left, with LVEF 41-49% History of GI bleed Hoarseness Hydrocele, right (01/23/16) Hyperlipidemia Hypophosphatemia Kyphoscoliosis Low back pain Malnutrition Mild bibasilar atelectasis Pancreatitis Poor hygiene Prediabetes Protein malnutrition Pulmonary hypertension Recent weight loss Rib fractures Shortness of breath Solitary pulmonary nodule Tinnitus, left Tobacco abuse Weight loss Surgical History cardiac cath Coronary Artery Bypass Gaft (CABG) EGD - IV Sedation Esophagectomy H/O colonoscopy (2007) H/O colonoscopy (04/14/18) dr geller, sigmoid diverticulosis, repeat 10 years History of esophagogastroduodenoscopy (EGD) (09/2017) History of hydrocelectomy History of right inguinal hernia repair repair times two sugrical flap of unhealing wound Family History Mother No problems noted. Father No problems noted. Social History Smoking/Tobacco Use Status: Unknown Smoking risk assessment performed?: Yes Alcohol Intake: former Drug use: Never Substance use type: does not use Current gender identity: male What type of physical activity do you participate in: none Do you feel safe at home: Yes Do you feel safe in your relationship?: Yes Time Spent with Patient Time Spent with Patient: 45-69 minutes Time was spent: preparing to see the patient(eg.review tests), obtaining and/or reviewing separately otained hiistory, ordering medications,tests, procedures, referring, communicating with other health technical healthcare consultant, indepentently interpreting results and care coordination
--- NOTE | 2022-10-26 10:44 | PDOC.HHF2F_ITS ---
Home Health Referral Home Health Orders Clinical synopsis of why skilled professionals are needed: Admitted for acute respiratory failure d/t CHF and PNA. Weaned from supplemental O2. Continuing antibiotic for 10 more doses. Continuing diuretic for 7 days. Medical diagnosis necessitation home health referral: Pneumonia. Acute CHF Registered Nurse: Check all that apply Instruct on new or changed medication(s)/assess compliance: Ordered Physical Therapist: Check all that apply Increase strength & endurance for safe mobility at home: Ordered To design/establish home maintenance program: Ordered Occupational Therapist: Evaluate and treat for patient unable to perform ADL/IADL/self-care: Ordered Upper extremity strengthening, range and motion: Ordered Aviation Electrician: Assist with community resources: Ordered Home Bound Status Requires the aid of supportive device (check all that apply): Walker Assistance of another person (Describe assistance and medical necessity): Standby assist required when outside of the home d/t acute decline in strength/balance because of acute illness and hospitalization. Describe why leaving home would require a considerable and taxing effort: Requires frequent rest periods Encounter Date and Reason: I certify that a FTF encounter for this patient was performed on October 26, 2022 and that such encounter was related to the primary reason the patient requires home health services. The encounter was conducted in the following manner: * By me as the certifying physician, 4TH GRADE MATH TEACHER, PA or * By an inpatient physician, 4TH GRADE MATH TEACHER or PA during an inpatient stay who communicated findings to me, Certification And Authentication I certify that I composed the above information based on my clinical judgment relating to this patient's medical condition and, if applicable, clinical findings communicated to me by the NPP or inpatient physician who performed the FTF encounter. Name of Provider that will be monitoring home health services: Mio Navarro
[2022-10-26 16:10] LABS: Streptococcus Pneumoniae Ag, U Negative (Negative)
--- NOTE | 2022-10-26 17:08 | CHAPLAIN ---
Ilia was resting in bed when I visited. He said he expects to go home later today and is looking forward to that. He lives in [facility] so he doesn't have a long trip, he explained. Ilia was pleasant and engaged in a conversation.
--- NOTE | 2022-10-27 09:40 | INDS_ITS ---
PT Notes Visit Reasons: Acute Hypoxic Respiratory Failure,Hypotension,NHI Physical Therapy Inpatient Discharge Summary Date: 10/26/22 Dates of service: 10/24/2022 only This is a clinical summary of care provided for the duration of dates listed above. No charge was made in the completion of this documentation. Referring Doctor:? Dr. Mayberry PT Orders: PT CONSULT: limited ability to ambulate Precautions: fall, standard Patient Profile/Admitting Diagnosis:??Patient admitted 10/22/22 for acute respiratory failure due to acute exacerbation of CHF, COPD, likely underlying pneumonia, pulmonary fibrosis. PT consultation ordered for mobility assessment. Attempted evaluation yesterday, but patient not alert enough for evaluation. PMHX: All Active Problems?(Updated 10/23/22 @ 00:37 by Shakila Mayberry MD) Acute kidney injury (Acute) Discharge planning issues (Acute) Hypotension (Acute) DNR (do not resuscitate) (Acute) DNR, but would like trial of intubation. See 09/26 NoteHistory of fracture of left hip (Acute) S/P IM NAIL DOS: 08/28/22Acute bronchitis (Acute) Left foot pain (Acute) Palliative care patient (Acute) Underweight (Acute) Diastolic heart failure (Chronic) Closed intertrochanteric fracture of left femur (Acute) s/p IMN fixation (08/28/22)Fall (Acute) Blunt head trauma (Acute) Contusion of elbow, left (Acute) Contusion of left leg (Acute) Closed fracture of left hip (Acute) Mild cognitive impairment (Acute) Advanced care planning/counseling discussion (Acute) Literacy level of illiterate (Acute) Palliative care encounter (Acute) Acute respiratory failure with hypoxia (Acute) DVT prophylaxis (Acute) Acute exacerbation of chronic obstructive pulmonary disease (COPD) (Acute) Acute on chronic right-sided congestive heart failure (Acute) Pneumonia (Acute) Septic shock (Acute) Hypoxia (Acute) Depression (Chronic) Dental abscess (Acute) 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 Current living situation difficult to determine. States that he walks with FWW at baseline, although unclear on distances tolerated. Reports that he lives with his significant other, Lyudmila, and that they do not receive any services. Reports that they live together at the [facility]; Care Management is looking into current living situation for discharge planning. Equipment Owned/DME: Old worn out FWW Subjective:?NT. See most recent COMMUNITY ACTION WORKER notes. Objective:? General Observation: NT. See most recent COMMUNITY ACTION WORKER notes. Mental Status: NT. See most recent COMMUNITY ACTION WORKER notes. Pain: NT. See most recent COMMUNITY ACTION WORKER notes. ROM: Right Upper Extremity: Shoulder flexion 120*. Elbow and wrist motion WFL. Left Upper Extremity: Shoulder flexion 120*. Elbow and wrist motion WFL. Right Lower Extremity: Hip flexion to 110* bilat. Knee motion WFL. Left Lower Extremity: Hip flexion to 110* bilat. Knee motion WFL. Strength: Right Upper Extremity: Shoulder flexion 3/5 within available range. Biceps 3+/5. Triceps 3+/5. Left Upper Extremity: Shoulder flexion 3/5 within available range. Biceps 3+/5. Triceps 3+/5. Right Lower Extremity: Hip flexion 4-/5. Quads 4/5. Ankle DF 4/5. Left Lower Extremity: Hip flexion 4-/5. Quads 3+/5. Ankle DF 4/5. Bed Mobility/Transfers: sit-stand: CGA, stand by assist with cues needed for hand placement stand-sit: CGA,??requires cues and assistance for technique and equipment management Gait:? Ambulates up to 5 steps' with FWW, CGA. SOB with exertion. Balance:? Static Sitting: good Dynamic Sitting: good Static Standing: fair Dynamic Standing: fair Assessment:?? Patient was insistent on going home per Nurse Adorno. BYRON Spears patient refused to go to SNF. Approached patient and Nurse Adorno before departure to ensure that FWW was fitted. PT recommended and patient was amenable to. Patient is a 72 year old male referred to physical therapy services with the diagnosis of mobility impairments during hospitalization for acute respiratory failure.? Patient presents with clinical signs and symptoms consistent with diagnosis. He remains in the ICU for advanced care at this time. He requires skilled PT intervention to maximize mobility and safety to allow for safe return to back to previous living situation. Care management is working on determining level of independence at baseline, and discharge planning will be determined by patient progress and anticipated level of independence based on history. He currently demonstrates the following impairment level findings: 1. decreased LE strength 2. decreased activity tolerance 3. decreased safety and independence with transfers, requiring cues and a ssistance for technique and equipment management Impairments are contributing to the following functional limitations: 1. unable to tolerate household distance ambulation 2. increased fall risk due to? decreased safety and independence with transfers, requiring cues and assistance for technique and equipment management Goals: Goals X1 week 1. Supine-Sit : supervision NOT MET 2. Sit-Supine : supervision NOT MET 3. Sit-Stand : supervision NOT MET 4. Stand-Sit : supervision NOT MET NOT MET 7. Gait : 20' with FWW, CGA DISCHARGE RECOMMENDATIONS: SNF vs. PT based on progress towards goals. TREATMENT CODE/TIME: NC Thank you for the opportunity to participate in the care of this patient. Savanna Banks PT, DPT, CLT [facility] [place], [place]
[2022-10-28 19:52] LABS: Lab Add On Test DONE
[2022-10-29 18:09] LABS: Mycoplasma Pneumoniae PCR Negative; Specimen source SPUTUM
== END 2022-10-26 11:30 | disposition home health service (06) | DRG 871 ==
LOC: ER 10-23 00:19 → ICU 10-23 01:29
PROVIDERS: Family Medicine; Student in an Organized Health Care Education/Training Program; Admitting Provider Internal Medicine; Emergency Provider Emergency Medicine; PCP Family Medicine; Visit Provider Internal Medicine
DX: A41.9 Sepsis, unspecified organism; I50.33 Acute on chronic diastolic (congestive) heart failure; J18.9 Pneumonia, unspecified organism; J96.01 Acute respiratory failure with hypoxia; R65.21 Severe sepsis with septic shock; N39.0 Urinary tract infection, site not specified; J44.0 Chronic obstructive pulmonary disease with (acute) lower respiratory infection; J44.1 Chronic obstructive pulmonary disease with (acute) exacerbation; N17.9 Acute kidney failure, unspecified; Z68.1 Body mass index [BMI] 19.9 or less, adult; I24.8 Other forms of acute ischemic heart disease; I50.813 Acute on chronic right heart failure; E83.42 Hypomagnesemia; I25.10 Atherosclerotic heart disease of native coronary artery without angina pectoris; I48.91 Unspecified atrial fibrillation; Z66 Do not resuscitate; R63.6 Underweight; R41.89 Other symptoms and signs involving cognitive functions and awareness; Z55.0 Illiteracy and low-level literacy; F32.A Depression, unspecified; F10.21 Alcohol dependence, in remission; I11.0 Hypertensive heart disease with heart failure; Z95.1 Presence of aortocoronary bypass graft; I27.20 Pulmonary hypertension, unspecified; J84.10 Pulmonary fibrosis, unspecified; R91.8 Other nonspecific abnormal finding of lung field; D64.9 Anemia, unspecified; Z85.01 Personal history of malignant neoplasm of esophagus
CPT/HCPCS: 36415; 36573; 36591; 71045; 71275; 76770; 80048; 80053; 82805; 84145; 87040; 87081; 87449; 87637; 93005; 93308; 94640; 97162; 99285; 80162; 80202; 81003; 81015; 83605; 83735; 83880; 84443; 84484; 85025; 85379; 85610; 85730; 87070; 87086; 87205; 87581; 87899; 93010; 93970; 94660; 94664; 94667; 94668; 94760; 99232; 99233; 99239; 99291; J1100; J1644; J1940; J1941; J3490; J7512; J7614; J7644

== ENCOUNTER 2022-11-16 06:02 | Inpatient (IN) | payer MEDICARE, MEDICAID, SELFPAY ==
[2022-11-16] VITALS (127 sets, daily range): BP systolic 85–124; BP diastolic 47–95; PULSE 48–87; RESP 6–29; TEMP 36.1–36.6; O2SAT 78–99
--- NOTE | 2022-11-16 06:00 | DI.RAD_ITS ---
Exam(s) XR PORTABLE CHEST AP EXAM: XR PORTABLE CHEST AP CLINICAL HISTORY: SOB. TECHNIQUE: 2D digital imaging was performed. COMPARISON: CR,XR XR PORTABLE CHEST AP POST LINE from 10/23/2022 FINDINGS: Single AP portable view. Right jugular central line is no longer present. Sternotomy wires again noted. Mild cardiomegaly again noted. Mediastinum not widened. There is persistent infiltrate in the left lower lobe, without improvement. Blunting of left costoph renic angle again noted indicating small left pleural effusion. Increased markings and scarring in t he right lung base are unchanged. No obvious pleural effusion on the right side. There is no eviden ce to suggest pulmonary edema. IMPRESSION: Bibasilar findings as described above. Probably infectious infiltrates. Mild cardiomegaly. Sternotomy. No evidence of pulmonary edema. Small left pleural effusion. DATA REPOSITORY: RADIATION DOSE DELIVERED:
--- NOTE | 2022-11-16 06:00 | RT.EKG_ITS ---
APPROVED REPORT Exam: Resting ECG Reason for Exam: short of breath Patient Location: E HR:55 bpm ECG Measurements Heart Rate 55 AXIS ID [id number] P [id number] QRSd 74 QRS 61 QT 392 T 32 QTc 374 Conclusion Atrial fibrillation...V-rate 43- 68, irreg A-activity Low voltage, extremity leads...all extremity leads <0.5mV No change vs 10/25/22
--- NOTE | 2022-11-16 06:15 | DI.CT_ITS ---
Exam(s) CT CHEST PE CTA EXAM: CT CHEST PE CTA CLINICAL HISTORY: sudden onset SOB. TECHNIQUE: Imaging Protocol: CT angiography of the chest was performed using pulmonary embolus mary col. Multi planar reconstructions were performed. CONTRAST MATERIAL: Intravenous: Omnipaque 350 Contrast volume: 100 cc COMPARISON: CT CT CHEST PE CTA from 10/23/2022 FINDINGS: CHEST: PULMONARY ARTERIES: There are no obvious intraluminal filling defects to suggest acute pulmonary embo li. LUNGS: There are infiltrates in both lower lobes superimposed upon COPD findings. The amount of infi ltrates in the basal segments of both lower lobes is significantly more than expected from viewing th e portable chest x-ray. There also bilateral pleural effusions, moderate size on right and small on the left. There is abundant mucus in the trachea and left mainstem bronchus. Possible aspiration CIS pneumonia s. Severe COPD both lungs echols. MEDIASTINUM: There is no significant hilar nor mediastinal adenopathy. CARDIAC: Sternotomy wires. Cardiomegaly. No pericardial effusion. Enlarged right heart chambers wi th contrast reflux into the intrahepatic IVC and systemic intrahepatic veins suggesting right heart f ailure. Coronary artery calcification noted. Caliber of the thoracic aorta is upper normal. PARTIALLY VISUALIZED UPPERMOST ABDOMEN: Adrenal thickening bilaterally. OSSEOUS: Multiple healed and non healed left-sided rib fractures. No obvious acute rib fractures. N o compression fractures evident. No osseous lesions.. IMPRESSION: 1. No evidence of acute pulmonary emboli. 2. Significant infiltrates in both lower lobes, probably related to aspiration pneumonia given the ab undant secretions evident in the trachea and mainstem bronchi. 3. Bilateral pleural effusions right larger than left. 4. Sternotomy. Cardiomegaly with enlarged right heart chambers suggesting right heart failure/strai n. 5. Multiple healed and non adequately healed left rib fractures but no acute fractures evident. 6. Findings are consistent with a combination of heart failure and infectious aspiration pneumonias both lower lobes. RADIATION DOSE DELIVERED: 213.6mGy.cm Total DLP DATA REPOSITORY: All CT scans at this facility are submitted to the National Radiology Data Registry (NRDR) Dose Index Registry (DIR) with the [employer] (A[employer]). RADIATION OPTIMIZATION: All CT scans at this facility use at least one of these dose optimization te chniques: automated exposure control; mA and/or kV adjustment per patient size (includes targeted exa ms where dose is matched to clinical indication); or iterative reconstruction.
--- NOTE | 2022-11-16 06:16 | ED.GENADUL_ITS ---
Discharge Plan Disposition Patient Disposition: Admit to [facility] Condition: Stable Discharge Details Clinical Impression: Shortness of breath Admit Date/Time: 11/16/22 10:26 Admit Provider: Darrick Monroe Attending Provider: Darrick Monroe Primary Care Provider: Silvina Perdue ED Provider: Shaun Watts Discharge Data Discharge Date/Time-TO BE ENTERED AT DEPARTURE: 11/16/22 16:53 Medical Decision Making No definitive evidence of congestive heart failure on chest x-ray in spite of rales. I suspect these are from the chronic markings in his lower lungs which may represent his pulmonary fibrosis. 0730 Patient's sats go down into the low 70s with a decent waveform although he is in no distress and states that his breathing feels baseline right now. We had RT Kerry, come down to draw an ABG on him and she said that on the floor they consistently do not get accurate oxygen sats on him in spite of there being decent waveforms. She states his baseline is high 80s. Patient is currently on 1 L of oxygen and his sats are 85% with a good waveform. Case signed out to Dr. Hollingsworth at [address] pending. Imaging Data Radiologic Study: Attestation: I personally reviewed and interpreted this imaging study as follows: Imaging: X-Ray (CXR: cardiomegaly, lower lungs with increased markings, improved vs. 10/25/22) Radiologist's impression: COMPARISON: XR PORTABLE CHEST AP POST LINE 10/23/2022 12:22 AM FINDINGS: Lungs: Bibasilar pulmonary opacities. Pleural spaces: Left pleural effusion. Pleural calcifications. Heart/Mediastinum: Enlarged cardiac silhouette. Vasculature: Aortic calcifications. Bones/joints: Grossly unremarkable.? IMPRESSION: 1. ? Bibasilar pulmonary opacities suspicious for pneumonia. 2. ? Left pleural effusion. 3. ? Enlarged cardiac silhouette. Dictated and Authenticated by: Cherri Pride MD. Of note, opacities are improved vs 10/23 and will likely take a bit longer to resolve. Lab Data Lab results reviewed: Yes I reviewed the patient's lab results. Lab results narrative: Patient's labs are overall unremarkable. His alk phos is mildly elevated but baseline for him. His BMP is elevated but lower than his last value. His troponin is normal. His pH is 7.3 with PCO2 of 53. This is close to his baseline although his PCO2 is mildly elevated from the 40s. We have dialed down his oxygen due to his COPD. ECG Data Attestation: I personally reviewed and interpreted this ECG (s) as follows: (AFIB 55, low voltage, Q waves V2,3 unchanged vs 10/25/22) Prior ECG tracings: available for review (as noted above) HPI General Date/Time Provider Initiated Documentation: 11/16/22 06:08 . HPI Narrative: This 72-year-old male patient with a history of pulmonary fibrosis, CHF, and COPD presents with a chief complaint of difficulty breathing. Patient is a poor historian. He first said that the breathing difficulty started earlier tonight and later said it was there when he woke up at 4:30 this morning. It sounds like he uses a pulse oximeter at home and it measured 40 so he called 911. He is not on oxygen at home. He was recently hospitalized the end of October with pneumonia and septic shock. Patient denies recent fever, URI symptoms, or chest pain. He does have chronic pedal edema that is his baseline at this time. Difficulty breathing appears to be mild. He is speaking in full sentences. He denies pain anywhere. Nothing really makes the breathing better or worse. He looks quite comfortable on arrival to the ED. Related Data Home Medications Medication Instructions Recorded Confirmed gabapentin 300 mg capsule 300 mg PO TID 07/19/22 11/16/22 atorvastatin 10 mg tablet 10 mg PO HS 08/28/22 11/16/22 cholecalciferol (vitamin D3) 50 50 mcg PO DAILY 08/28/22 11/16/22 mcg (2,000 unit) tablet multivitamin with minerals-ferrous 1 tab PO DAILY 08/28/22 11/16/22 sulfate 4.5 mg iron tablet (One Daily Multivitamins with Minerals) tamsulosin 0.4 mg capsule 0.4 mg PO HS 08/28/22 11/16/22 tiotropium 2.5 mcg-olodaterol 2.5 2 puff inhalation DAILY 08/28/22 11/16/22 mcg/actuation mist for inhalation (Stiolto Respimat) acetaminophen 500 mg tablet 1,000 mg PO TID #0 tabs 09/06/22 11/16/22 digoxin 125 mcg (0.125 mg) tablet 0.125 mg PO DAILY #0 tabs 09/06/22 11/16/22 ferrous gluconate 324 mg (38 mg 324 mg PO BID@1000,2200 #0 tabs 09/06/22 11/16/22 iron) tablet metoprolol succinate 25 mg 25 mg PO DAILY #0 tabs 09/06/22 11/16/22 tablet,extended release 24 hr mirtazapine 7.5 mg tablet 7.5 mg PO HS #0 tabs 09/06/22 11/16/22 food supplemt, lactose-reduced 50 ml PO BID 09/22/22 11/16/22 0.04 gram-1.05 kcal/mL oral liquid (Boost Breeze Nutritional) guaifenesin 100 mg/5 mL oral 200 mg PO Q4H PRN 09/22/22 11/16/22 liquid (Robafen) nicotine 10 mg inhalation 1 inh inhalation 4-6XD PRN 09/22/22 11/16/22 cartridge (Nicotrol) albuterol sulfate 90 mcg/actuation 2 puff inhalation Q4H PRN 10/05/22 11/16/22 aerosol inhaler aspirin 81 mg capsule 162 mg PO DAILY 10/05/22 11/16/22 loperamide 2 mg capsule 4 mg PO .COMPLEX PRN 10/05/22 11/16/22 pantoprazole 40 mg tablet,delayed 40 mg PO BID 10/05/22 11/16/22 release polyethylene glycol 3350 17 gram 17 g PO DAILY 10/05/22 11/16/22 oral powder packet sennosides 8.6 mg tablet (Senokot) 17.2 mg PO HS 10/05/22 11/16/22 cefpodoxime 200 mg tablet 200 mg PO BID #10 tabs 10/26/22 11/16/22 furosemide 20 mg tablet (Lasix) 20 mg PO DAILY #7 tabs 10/26/22 11/16/22 Previous Rx's Medication Instructions Recorded acetaminophen 500 mg tablet 1,000 mg PO TID #0 tabs 09/06/22 digoxin 125 mcg (0.125 mg) tablet 0.125 mg PO DAILY #0 tabs 09/06/22 ferrous gluconate 324 mg (38 mg 324 mg PO BID@1000,2200 #0 tabs 04/03/23 iron) tablet metoprolol succinate 25 mg 25 mg PO DAILY #0 tabs 09/06/22 tablet,extended release 24 hr mirtazapine 7.5 mg tablet 7.5 mg PO HS #0 tabs 09/06/22 cefpodoxime 200 mg tablet 200 mg PO BID #10 tabs 10/26/22 furosemide 20 mg tablet (Lasix) 20 mg PO DAILY #7 tabs 10/26/22 Allergies Allergy/AdvReac Type Severity Reaction Status Date / Time No Known Allergies Allergy Verified 10/22/22 22:41 General Stated Complaint: SOB ANAMIKA: 3 Review of Systems Constitutional Constitutional: Denies chills, Denies fever(s), Denies headache(s) and Denies weakness Eyes Eyes: Denies diplopia and Reports other (no redness) ENT Ears, Nose, Mouth, and Throat: Denies otalgia, Denies headache(s), Denies nasal congestion, Denies nasal discharge, Denies neck pain and Denies sore throat Cardiovascular Cardiovascular: Denies chest pain, Denies palpitations and Reports dyspnea Respiratory Respiratory: Denies cough and Reports dyspnea Gastrointestinal Gastrointestinal: Denies abdominal pain, Denies diarrhea, Denies nausea and Denies vomiting Genitourinary Genitourinary: Denies difficulty urinating and Denies dysuria Musculoskeletal Musculoskeletal: Denies myalgias, Denies muscle weakness, Denies neck pain, Denies numbness and Reports other (has 1 plus pitting edema) Integumentary/Breasts Skin/Breast: Denies change in pigmentation and Denies rash Neurologic Neurologic: Denies headache(s), Denies numbness and Denies weakness Endocrine Endocrine: Denies palpitations PFSH All Active Problems (Updated 11/16/22 @ 20:32 by Darrick Monroe MD) Discharge planning issues (Acute) DVT prophylaxis (Acute) Aspiration pneumonia (Acute) Shortness of breath (Acute) Lung mass (Acute) Elevated troponin (Acute) Hypotension (Acute) DNR (do not resuscitate) (Acute) DNR, but would like trial of intubation. See 09/26 Note Acute bronchitis (Acute) Left foot pain (Acute) Palliative care patient (Acute) Underweight (Acute) Diastolic heart failure (Chronic) Closed intertrochanteric fracture of left femur (Acute) s/p IMN fixation (08/28/22) Fall (Acute) Blunt head trauma (Acute) Contusion of elbow, left (Acute) Contusion of left leg (Acute) Closed fracture of left hip (Acute) Mild cognitive impairment (Acute) Advanced care planning/counseling discussion (Acute) Literacy level of illiterate (Acute) Palliative care encounter (Acute) Acute on chronic right-sided congestive heart failure (Acute) Pneumonia (Acute) Hypoxia (Acute) Depression (Chronic) Dental abscess (Acute) 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) Abnormal chest CT (Acute) Full code status (Acute) 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) CAP (community acquired pneumonia) (Acute) Generalized weakness (Acute) Skin tear of left elbow without complication (Acute) Chronic obstructive lung disease (Chronic) Tricuspid regurgitation (Chronic) CAD (coronary artery disease) (Chronic) Hypertension (Chronic) Medical History Abdominal pain Abnormal radiologic findings on diagnostic imaging of renal pelvis, ureter, or bladder Acute on chronic anemia Acute on chronic diastolic (congestive) heart failure Acute on chronic systolic CHF (congestive heart failure) Adenocarcinoma of esophagus From [facility] [place]:Hx GI Cancer...EGD 04/2021 with friable mucosa. SDOne at that time because of GI blooed Afib Alcohol abuse Alcohol abuse, continuous drinking behavior Anemia Bilateral lower extremity edema CAD (coronary artery disease) of artery bypass graft Cerumen impaction CHF, acute on chronic Closed intertrochanteric fracture Confusion state COVID-19 COVID-19 Diabetes mellitus Difficulty reading Edema Encounter for colorectal cancer screening Epididymitis, right (08/02/16) Essential hypertension Failure to thrive Fall GERD (gastroesophageal reflux disease) GI bleed GI bleeding H/O malignant neoplasm of stomach Heart failure, left, with LVEF 41-49% History of fracture of left hip S/P IM NAIL DOS: 08/28/22 History of GI bleed Hoarseness Hydrocele, right (01/23/16) Hyperlipidemia Hypophosphatemia Kyphoscoliosis Low back pain Malnutrition Mild bibasilar atelectasis Pancreatitis Poor hygiene Prediabetes Protein malnutrition Pulmonary hypertension Recent weight loss Rib fractures Shortness of breath Solitary pulmonary nodule Tinnitus, left Tobacco abuse Weight loss Surgical History cardiac cath Coronary Artery Bypass Gaft (CABG) EGD - IV Sedation Esophagectomy H/O colonoscopy (2007) H/O colonoscopy (04/14/18) dr geller, sigmoid diverticulosis, repeat 10 years History of esophagogastroduodenoscopy (EGD) (09/2017) History of hydrocelectomy History of right inguinal hernia repair repair times two sugrical flap of unhealing wound Family History Mother No problems noted. Father No problems noted. Social History Smoking/Tobacco Use Status: Former Tobacco Use Smoking risk assessment performed?: Yes Alcohol Intake: former Drug use: Never Substance use type: does not use Current gender identity: male What type of physical activity do you participate in: none Do you feel safe at home: Yes Do you feel safe in your relationship?: Yes Exam Const General: no acute distress and not in acute distress Nutritional Appearance: cachectic (mildly so) Orientation: alert and oriented x3 HENMT Head: normocephalic and atraumatic Ears: external ears normal Mouth: oropharynx normal and moist mucous membranes Throat: posterior oropharynx normal Eyes Conjunctivae: conjunctivae normal Neck Neck: full ROM and supple Chest Chest: normal inspection of the chest Resp Effort & Inspection: normal respiratory effort Auscultation: rales (at bases) Cardio Rate: regular rate Rhythm: regular rhythm Heart Sounds: no murmurs and no rubs GI Inspection: normal to inspection Palpation: soft, nontender and other (non distended) Auscultation: normal bowel sounds Skin General skin exam: no rashes or lesions noted and other (pink, warm, dry) Neuro General: patient alert, patient awake and patient oriented x3 Speech: speech normal Motor: other (TOUSSAINT) Sensory Exam: no sensory deficits noted Extrem General: normal to inspection, full ROM and no pedal edema (1 plus pitting) Psych Mental Status: mental status grossly normal Speech and Movement: speech and movement normal Affect: normal affect Course Vital Signs Vital signs: Vital Signs Temperature 36.5 C 11/16/22 05:59 Pulse 52 L 11/16/22 05:59 Respiratory Rate 18 11/16/22 05:59 Blood Pressure 112/72 11/16/22 05:59 Pulse Oximetry 94 11/16/22 05:59 Temperature 36.5 C 11/16/22 05:59 Temperature Source Oral 11/16/22 05:59 Pulse 52 L 11/16/22 05:59 Respiratory Rate 18 11/16/22 05:59 Respiratory Effort Short of Breath 11/16/22 06:10 Blood Pressure 112/72 11/16/22 05:59 Blood Pressure Position Sitting 11/16/22 05:59 Pulse Oximetry 94 11/16/22 05:59 Oxygen Delivery Method Nasal Cannula 11/16/22 05:59 Oxygen Flow Rate 1 11/16/22 05:59
[2022-11-16 06:17] LABS: BE (Venous) 0 mmol/L (-2-3); HCO3 (Venous) 26 mmol/L (23-28); O2 Sat (Venous) 38 %; TCO2 (Venous) 25 mmol/L (24-29); pCO2 (Venous) 53 mmHg (41-51); pH (Venous) 7.31 (7.31-7.41); pO2 (Venous) 25 mmHg
[2022-11-16 06:21] LABS: Abs Immature Grans 0.04 10^3/uL (0.0-0.06); Absolute Basophil Count 0.03 10^3/uL (0.0-0.2); Absolute Eosinophil Count 0.21 10^3/uL (0.0-0.7); Absolute Lymphocyte Count 1.31 10^3/uL (1.2-3.4); Absolute Monocyte Count 0.65 10^3/uL (0.1-0.8); Basophils % 0.5; Eosinophils % 3.2; HCT 40.6 % (40.0-50.0); HGB 12.4 g/dL (13.5-17.5); Immature Grans % 0.6; Lymphocytes % 19.7; MCHC 30.5 % (32.0-36.0); MCV 98 fL (80-95); MPV 9.8 fL (8.0-11.0); Monocytes % 9.8; Neutrophils % 66.2; Platelet Count 190 10^3/uL (130-400); RBC 4.14 10^6/uL (4.36-5.78); RDW 16.4 % (11.8-14.1); RDW-SD 59.7 fL; WBC 6.64 10^3/uL (4.4-10.8)
[2022-11-16] MEDS: Normal Saline - Diluent 50 ML VIAL IJ (06:39)
[2022-11-16] MEDS: Omnipaque 350 MG/ML 100 ML BTL IJ (06:40)
[2022-11-16] MEDS: Normal Saline Flush 10 ML SYR IVP ×3 (06:40→22:28)
[2022-11-16 06:41] LABS: Digoxin 1.02 ng/mL (0.90-2.00)
[2022-11-16] MEDS: Albuterol/Ipratropium 3 ML UPD VIAL UPD ×4 (06:43→19:08)
[2022-11-16 06:45] LABS: ALT 23 U/L (16-63); AST 22 U/L (15-37); Albumin 2.8 g/dL (3.4-5.0); Alkaline Phosphatase 160 U/L (46-116); Anion Gap 3.3 mmol/L (3-11); BUN 26 mg/dL (7-18); Bilirubin, Total 0.4 mg/dL (0.2-1.0); CO2 27.7 mmol/L (21.0-32.0); CREATININE 1.1 mg/dL (0.70-1.30); Calcium 8.7 mg/dL (8.5-10.1); Chloride 107 mmol/L (98-107); Estimated GFR 71.32 (mL/min/1.73m2); Glucose 111 mg/dL (74-106); Magnesium 1.8 mg/dL (1.8-2.4); Potassium 4.7 mmol/L (3.5-5.1); Sodium 138 mmol/L (136-145); Total Protein 7.8 g/dL (6.4-8.2); Troponin I < 50 ng/L (<or=60)
[2022-11-16 06:48] LABS: NT-proBNP 4833 pg/mL (<300)
[2022-11-16 07:33] LABS: COVID-19 PCR Negative (Negative); Influenza A PCR Negative (Negative); Influenza B PCR Negative (Negative); RSV PCR Negative (Negative); Source Nasopharynx
--- NOTE | 2022-11-16 07:46 | DI.VRAD_ITS ---
PROCEDURE INFORMATION: Exam: XR Chest Exam date and time: 11/16/2022 6:16 AM Age: 72 years old Clinical indication: Shortness of breath; Prior surgery; Surgery date: 6+ months; Surgery type: Cabg; Patient HX: SOB TECHNIQUE: Imaging protocol: Radiologic exam of the chest. Views: 1 view. COMPARISON: XR PORTABLE CHEST AP POST LINE 10/23/2022 12:22 AM FINDINGS: Lungs: Bibasilar pulmonary opacities. Pleural spaces: Left pleural effusion. Pleural calcifications. Heart/Mediastinum: Enlarged cardiac silhouette. Vasculature: Aortic calcifications. Bones/joints: Grossly unremarkable. IMPRESSION: 1. Bibasilar pulmonary opacities suspicious for pneumonia. 2. Left pleural effusion. 3. Enlarged cardiac silhouette. Dictated and Authenticated by: Cherri Pride MD. Ordering:EDGARDO Palmer MD
--- NOTE | 2022-11-16 07:50 | DI.VRAD_ITS ---
PROCEDURE INFORMATION: Exam: CTA Chest With Contrast Exam date and time: 11/16/2022 6:44 AM Age: 72 years old Clinical indication: Shortness of breath; Prior surgery; Surgery date: 6+ months; Surgery type: Cabg; Patient HX: Sudden onset SOB TECHNIQUE: Imaging protocol: Computed tomographic angiography of the chest with contrast. Exam focused on the arteries. 3D rendering (Not supervised by radiologist): MIP and/or 3D reconstructed images were created by the technologist. Radiation optimization: All CT scans at this facility use at least one of these dose optimization techniques: automated exposure control; mA and/or kV adjustment per patient size (includes targeted exams where dose is matched to clinical indication); or iterative reconstruction. Contrast material: OMNIPAQUE 350; Contrast volume: 60 ml; Contrast route: INTRAVENOUS (IV); COMPARISON: CT CHEST PE CTA 10/23/2022 1:20 AM FINDINGS: Limitations: Mild motion artifact. Pulmonary arteries: No definite pulmonary embolus identified, within the limitations noted above. Aorta: No thoracic aortic aneurysm seen. Arterial calcifications. Lungs: Secretions in the trachea, left mainstem bronchus, and left lower lobe bronchi. Consider aspiration. Extensive consolidation in the lower lobes of both lungs. Fibrotic changes in the lungs. Patchy airspace opacity in the right upper lobe. Emphysematous changes in the lungs. Pleural spaces: Small bilateral pleural effusions. Heart: Cardiomegaly. Enlarged right-sided cardiac chambers suggesting right heart strain/right heart failure/pulmonary hypertension. This was present previously. Reflux of contrast into hepatic veins suggesting heart failure. Please correlate clinically. Coronary arteries: Coronary artery calcifications. Lymph nodes: Mediastinal and hilar lymphadenopathy. Pancreas: Calcifications in the pancreas suggesting sequelae of prior pancreatitis. Correlate Adrenal glands: Nodular adrenal thickening. Bones/joints: Nonacute rib deformities. Soft tissues: No acute pertinent abnormality seen. IMPRESSION: 1. Cardiomegaly with bilateral pleural effusions suggesting heart failure. 2. Consolidation in both lungs most consistent with pneumonia. Concern for aspiration. Follow-up to resolution advised. 3. Enlarged right cardiac chambers suggesting right heart failure/strain/pulmonary hypertension. Dictated and Authenticated by: Cherri Pride MD. Ordering:EDGARDO Palmer MD
[2022-11-16 08:01] LABS: BE -2 mmol/L (-2-3); HCO3 23 mmol/L (22-26); pCO2 38 mmHg (35-45); pH 7.39 (7.35-7.45); pO2 49 mmHg (80-105); sO2 84 % (95-98); tCO2 21 mmol/L (23-27)
[2022-11-16 08:03] LABS: FIO2 28 %; FIO2L 2 L; Site Left Radial
--- NOTE | 2022-11-16 08:20 | W.EDPROG ---
Date of service: 11/16/22 Time of Service: 08:20 Medical Decision Making pt's cta without PE but does have bilateral pleural effusions right greater then left and evidence of aspiration pneumonia. Pt requiring oxygen and doesn't require oxygen at home, will likely need admission for diuresis and treatment of his aspiration, will discuss with hospitalist. Medical Records Medical records reviewed: Yes I reviewed the patient's medical records. Discharge Plan Disposition Patient Disposition: Admit to [facility] Condition: Stable Discharge Details Chief Complaint: SOB Clinical Impression: Shortness of breath Primary Care Provider: Silvina Perdue ED Provider: Shaun Watts Home Meds and New Rx's Prescriptions: No Action Boost Breeze Nutritional 0.04-1.05 gram-kcal/mL liquid 50 ml PO BID Nicotrol 10 mg cartridge 1 inh inhalation 4-6XD PRN guaifenesin [Robafen] 100 mg/5 mL liquid 200 mg PO Q4H PRN aspirin 81 mg capsule 162 mg PO DAILY polyethylene glycol 3350 17 gram powder in packet 17 g PO DAILY sennosides [Senokot] 8.6 mg tablet 17.2 mg PO HS albuterol sulfate 90 mcg/actuation HFA aerosol inhaler 2 puff inhalation Q4H PRN loperamide 2 mg capsule 4 mg PO .COMPLEX PRN Rx Instructions: 4 mg orally after first loose stool, then 1 capsule after subsequent loose stools. Maximum daily dose is 16mg PRN; gabapentin 300 mg capsule 300 mg PO TID Patient Comments: Take 1 capsule by mouth three times a day One Daily Multi-Vit w-Mineral 4.5 mg iron tablet 1 tab PO DAILY cholecalciferol (vitamin D3) 50 mcg (2,000 unit) tablet 50 mcg PO DAILY tamsulosin 0.4 mg capsule 0.4 mg PO HS Stiolto Respimat 2.5-2.5 mcg/actuation mist 2 puff INHALATION DAILY atorvastatin 10 mg tablet 10 mg PO HS acetaminophen 500 mg Tablet 1,000 mg PO TID Qty: 0 0RF digoxin 125 mcg (0.125 mg) Tablet 0.125 mg PO DAILY Qty: 0 0RF ferrous gluconate 324 mg (38 mg iron) Tablet 324 mg PO BID@1000,2200 Qty: 0 0RF metoprolol succinate 25 mg Tablet Extended Release 24 Hr 25 mg PO DAILY Qty: 0 0RF Rx Instructions: hold for SBP<100 or HR<60 mirtazapine 7.5 mg tablet 7.5 mg PO HS Qty: 0 0RF Patient Comments: Take 1 tablet by mouth at bedtime pantoprazole 40 mg tablet,delayed release (DR/EC) 40 mg PO BID furosemide [Lasix] 20 mg tablet 20 mg PO DAILY Qty: 7 0RF cefpodoxime 200 mg tablet 200 mg PO BID Qty: 10 0RF Rx Instructions: must administer with a meal/food First dose with dinner today, 10/26/22. POCUS Exam (ED) Limited Cardiac Exam DATE OF EXAM: 11/16/22 TIME OF EXAM: 08:20 PROVIDER THAT PERFORMED THE STUDY: Shaun Watts IS THIS A REPEAT EXAM DURING THIS ENCOUNTER: no REASON FOR EXAM: Dyspnea VISUALIZED STRUCTURES: Four Chambers VIEW OBTAINED: Parasternal long-axis and Subxiphoid PERTINENT FINDINGS/IMPRESSION: LV dysfunction and RV dilation; No pericardial effusion Exam complete
[2022-11-16] MEDS: Furosemide 20 MG/2 ML VIAL IVP ×2 (08:22→16:41)
[2022-11-16 08:55] LABS: Bilirubin Negative (Negative); Blood Negative (Negative); Clarity Clear (Clear); Glucose Negative (Negative); Ketones Negative (Negative); Leukocyte Esterase Trace (Negative); Nitrite Negative (Negative); Urobilinogen 0.2 mg/dL (Up to 0.2)
[2022-11-16] MEDS: PIPERACILLIN/TAZO 4.5 GM in Normal Saline 100 ML IVPB (09:03)
[2022-11-16 09:04] LABS: Bacteria Rare HPF (Negative); C & S Indicated? Yes; Casts Negative LPF (Negative); Crystals Negative HPF (Negative); Epithelial Cells Rare HPF (Negative); Mucus Negative (Negative); RBC 0-2 HPF (0-2); WBC 20-50 HPF (0-5)
[2022-11-16 09:20] LABS: Troponin I < 50 ng/L (<or=60)
--- NOTE | 2022-11-16 10:49 | NUR.NOTE ---
Nursing Note: This RN in room responding to low o2 alarms. Pt saturating in the low 80s. RN adjusted pts NC to 4L/min. RN used ear probe to assess o2 and patinet at 89%. This is the normal range for this patinet. This RN adjusted NC to be in the patinets mouth and o2 back into patients normal range. Continuous monitoring remaning in place.
--- NOTE | 2022-11-16 10:57 | W.PM.HP.N ---
Date of service: 11/16/22 Time of Service: 10:57 Assessment and Plan Assessment and plan (1) Aspiration pneumonia: Status: Acute Assessment and plan: continue Zosyn as begun in the ED. I will ask for [employer] consult, I have down graded his diet to pureed w/ thickened liquids and have asked nursing to supervise all feedings. continue bronchodilators, pulmonary toiletry w/ acapella and IS. Professional time spent interviewing and examining patient, discussion of goals of care with hospital team (care management, nursing and consulting professionals) was 60 minutes. (2) Acute on chronic right-sided congestive heart failure: Status: Acute Assessment and plan: iv lasix; check follow up echocardiogram tomorrow. (3) Chronic obstructive lung disease: Status: Chronic Assessment and plan: steroids and bronchodilators along w/ antibiotics as outlined above; titrate oxygen to keep SPO2 over 88%. (4) Afib: Assessment and plan: rate is currently controlled. continue metoprolol. not a candidate for anticoagulation d/t prior GI bleeds. (5) DVT prophylaxis: Status: Acute Assessment and plan: enoxaparin SC (6) Discharge planning issues: Status: Acute Assessment and plan: patient is DNR/DNI as per prior admissions. discharge plans will be determined after we see how he responds to medical treatment. I will consult w/ P.T. to evaluate his gait, strength and ADL performance History of Present Illness History of Present Illness Chief Complaint: dyspnea Narrative: 72 yr old male with PMHx of CAD s/p CABG, Afib not on anticoagulation due to h/o GI bleeding, R-sided CHF, pulmonary hypertension, COPD, pulmonary fibrosis, and recent admission to [facility] 10/22-10/26/22 for acute hypoxic resp. failure d/t pneumonia and CHF (last echo 07/20/22 normal LV size/fxn, LVEF 60%, dilated RV w/ RVSP 53, mod. severe TR), who was brought to [facility] ED by ambulance for shortness of breath. Patient reports that he is chronicallyshort of breath but became more dyspneic early this morning waking up around 4:30 am and noting his SPO2 to be in the 40%'s when he called EMS. On arrival to the ED his oxygen saturation was 94% on 1 lpm but he did desaturate to 85% on 1 lpm oxygen. CXR demonstrated bibasilar infiltrates unchanged from prior CXR from 10/23/22 but now w/ small pleural effusion on the left, no interstitial edema. CT chest w/ contrast did not show any PE but demonstrated significant infiltrates in both lower lobes w/ abundant secretions in trachea and mainstem bronchi suggesting possible aspiration pneumonitis, bilateral pleural effusions and cardiomegaly w/ right heart strain. patient was started on Zosyn and given lasix 20 mg IVP w/ urine output of 1400 mL. pro-BNP is elevated at 4800 but troponin I is negative x 3 sets. EKG demonstrated slow atrial fibrillation at 52 bpm and evidence of old anteroseptal infarct (unchanged from 10/25/22). Patient is admitted to med/surg for treatment of acute hypoxemic RF d/t aspiration pneumonia and acute on chronic HFPEF from pulmonary hypertension and valvular heart disease. Review of Systems All systems reviewed & are unremarkable except as noted in HPI and below Cardiovascular Cardiovascular: Denies chest pain, Denies syncope, Denies palpitations and Reports dyspnea on exertion Respiratory Respiratory: Denies change in phlegm color, Reports chest congestion, Reports cough, Denies pain with cough and Reports dyspnea on exertion Gastrointestinal Gastrointestinal: Reports system reviewed and no additional complaints, except as documented Genitourinary Genitourinary: Reports system reviewed and no additional complaints, except as documented Musculoskeletal Musculoskeletal: Reports system reviewed and no additional complaints, except as documented Integumentary/Breasts Skin/Breast: Reports system reviewed and no additional complaints, except as documented Neurologic Neurologic: Reports system reviewed and no additional complaints, except as documented and Denies syncope Endocrine Endocrine: Reports system reviewed and no additional complaints, except as documented and Denies palpitations Hematologic/Lymphatic Hematologic/Lymphatic: Reports system reviewed and no additional complaints, except as documented PFSH All Active Problems (Updated 11/16/22 @ 20:32 by Darrick Monroe MD) Discharge planning issues (Acute) DVT prophylaxis (Acute) Aspiration pneumonia (Acute) Shortness of breath (Acute) Lung mass (Acute) Elevated troponin (Acute) Hypotension (Acute) DNR (do not resuscitate) (Acute) DNR, but would like trial of intubation. See 09/26 Note Acute bronchitis (Acute) Left foot pain (Acute) Palliative care patient (Acute) Underweight (Acute) Diastolic heart failure (Chronic) Closed intertrochanteric fracture of left femur (Acute) s/p IMN fixation (3/25/23) Fall (Acute) Blunt head trauma (Acute) Contusion of elbow, left (Acute) Contusion of left leg (Acute) Closed fracture of left hip (Acute) Mild cognitive impairment (Acute) Advanced care planning/counseling discussion (Acute) Literacy level of illiterate (Acute) Palliative care encounter (Acute) Acute on chronic right-sided congestive heart failure (Acute) Pneumonia (Acute) Hypoxia (Acute) Depression (Chronic) Dental abscess (Acute) 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) Abnormal chest CT (Acute) Full code status (Acute) 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) CAP (community acquired pneumonia) (Acute) Generalized weakness (Acute) Skin tear of left elbow without complication (Acute) Chronic obstructive lung disease (Chronic) Tricuspid regurgitation (Chronic) CAD (coronary artery disease) (Chronic) Hypertension (Chronic) Medical History Abdominal pain Abnormal radiologic findings on diagnostic imaging of renal pelvis, ureter, or bladder Acute on chronic anemia Acute on chronic diastolic (congestive) heart failure Acute on chronic systolic CHF (congestive heart failure) Adenocarcinoma of esophagus From [facility] [place]:Hx GI Cancer...EGD 04/2021 with friable mucosa. SDOne at that time because of GI blooed Afib Alcohol abuse Alcohol abuse, continuous drinking behavior Anemia Bilateral lower extremity edema CAD (coronary artery disease) of artery bypass graft Cerumen impaction CHF, acute on chronic Closed intertrochanteric fracture Confusion state COVID-19 COVID-19 Diabetes mellitus Difficulty reading Edema Encounter for colorectal cancer screening Epididymitis, right (08/02/16) Essential hypertension Failure to thrive Fall GERD (gastroesophageal reflux disease) GI bleed GI bleeding H/O malignant neoplasm of stomach Heart failure, left, with LVEF 41-49% History of fracture of left hip S/P IM NAIL DOS: 08/28/22 History of GI bleed Hoarseness Hydrocele, right (01/23/16) Hyperlipidemia Hypophosphatemia Kyphoscoliosis Low back pain Malnutrition Mild bibasilar atelectasis Pancreatitis Poor hygiene Prediabetes Protein malnutrition Pulmonary hypertension Recent weight loss Rib fractures Shortness of breath Solitary pulmonary nodule Tinnitus, left Tobacco abuse Weight loss Surgical History cardiac cath Coronary Artery Bypass Ga (CABG) EGD - IV Sedation Esophagectomy H/O colonoscopy (2007) H/O colonoscopy (04/14/18) dr geller, sigmoid diverticulosis, repeat 10 years History of esophagogastroduodenoscopy (EGD) (09/2017) History of hydrocelectomy History of right inguinal hernia repair repair times two sugrical flap of unhealing wound Family History Mother No problems noted. Father No problems noted. Social History Smoking/Tobacco Use Status: Former Tobacco Use Smoking risk assessment performed?: Yes Alcohol Intake: former Drug use: Never Substance use type: does not use Current gender identity: male What type of physical activity do you participate in: none Do you feel safe at home: Yes Do you feel safe in your relationship?: Yes Meds Allergies and Home Medications Allergies Allergy/AdvReac Type Severity Reaction Status Date / Time No Known Allergies Allergy Verified 10/22/22 22:41 Home Medications Medication Instructions Recorded Confirmed Type gabapentin 300 mg capsule 300 mg PO TID 07/19/22 11/16/22 History atorvastatin 10 mg tablet 10 mg PO HS 08/28/22 11/16/22 History cholecalciferol (vitamin D3) 50 50 mcg PO DAILY 08/28/22 11/16/22 History mcg (2,000 unit) tablet multivitamin with minerals-ferrous 1 tab PO DAILY 08/28/22 11/16/22 History sulfate 4.5 mg iron tablet (One Daily Multivitamins with Minerals) tamsulosin 0.4 mg capsule 0.4 mg PO HS 08/28/22 11/16/22 History tiotropium 2.5 mcg-olodaterol 2.5 2 puff inhalation DAILY 08/28/22 11/16/22 History mcg/actuation mist for inhalation (Stiolto Respimat) acetaminophen 500 mg tablet 1,000 mg PO TID #0 tabs 09/06/22 11/16/22 Rx digoxin 125 mcg (0.125 mg) tablet 0.125 mg PO DAILY #0 tabs 09/06/22 11/16/22 Rx ferrous gluconate 324 mg (38 mg 324 mg PO BID@1000,2200 #0 tabs 09/06/22 11/16/22 Rx iron) tablet metoprolol succinate 25 mg 25 mg PO DAILY #0 tabs 09/06/22 11/16/22 Rx tablet,extended release 24 hr mirtazapine 7.5 mg tablet 7.5 mg PO HS #0 tabs 09/06/22 11/16/22 Rx food supplemt, lactose-reduced 50 ml PO BID 09/22/22 11/16/22 History 0.04 gram-1.05 kcal/mL oral liquid (Boost Breeze Nutritional) guaifenesin 100 mg/5 mL oral 200 mg PO Q4H PRN 09/22/22 11/16/22 History liquid (Robafen) nicotine 10 mg inhalation 1 inh inhalation 4-6XD PRN 09/22/22 11/16/22 History cartridge (Nicotrol) albuterol sulfate 90 mcg/actuation 2 puff inhalation Q4H PRN 10/05/22 11/16/22 History aerosol inhaler aspirin 81 mg capsule 162 mg PO DAILY 10/05/22 11/16/22 History loperamide 2 mg capsule 4 mg PO .COMPLEX PRN 10/05/22 11/16/22 History pantoprazole 40 mg tablet,delayed 40 mg PO BID 10/05/22 11/16/22 History release polyethylene glycol 3350 17 gram 17 g PO DAILY 10/05/22 11/16/22 History oral powder packet sennosides 8.6 mg tablet (Senokot) 17.2 mg PO HS 10/05/22 11/16/22 History cefpodoxime 200 mg tablet 200 mg PO BID #10 tabs 10/26/22 11/16/22 Rx furosemide 20 mg tablet (Lasix) 20 mg PO DAILY #7 tabs 10/26/22 11/16/22 Rx Exam Const General: cooperative, no acute distress, frail appearing and ill appearing Nutritional Appearance: malnourished and thin Orientation: alert, awake and oriented x3 Chest Chest: other (median sternotomy scar) Resp Effort & Inspection: normal respiratory effort and able to speak in complete sentences Auscultation: rhonchi left upper, right upper, left lower and right lower and wheezes scattered wheezes Cardio Jugular venous pressure: JVD Palpation: normal PMI Rate: bradycardic Rhythm: abnormal rhythm irregularly irregular Heart Sounds: murmur systolic holo and III/ Pulses: posterior tibial pulses present bilaterally 1+ and diminished and dorsalis pedis present bilaterally 1+ and diminished GI Inspection: scaphoid Palpation: soft, no hepatosplenomegaly, no guarding and nontender Percussion: normal to percussion Auscultation: normal bowel sounds Back/Spine/Pelvis Back: no CVA tenderness Skin General skin exam: no rashes or lesions noted Neuro General: patient alert, patient awake and patient oriented x3 Cranial Nerves: CN's II-XI intact bilaterally Cognition: normal cognition Speech: speech normal Motor: muscle tone normal throughout Extrem General: full ROM, capillary refill normal, no calf tenderness and pedal edema bilaterally pitting and 2+ Psych Appearance: disheveled Mental Status: mental status grossly normal Speech and Movement: speech and movement normal Mood: congruent mood Affect: normal affect Attitude: cooperative Thought Process: normal Results Labs 11/16/22 06:09 11/16/22 06:09 Labs: Laboratory Results - last 24 hr 11/16/22 11/16/22 11/16/22 06:09 06:09 06:09 WBC 6.64 RBC 4.14 L Hgb 12.4 L Hct 40.6 MCV 98 H MCH 30.0 MCHC 30.5 L RDW 16.4 H Plt Count 190 MPV 9.8 Immature Gran % 0.6 Neutrophils % 66.2 Lymphocytes % 19.7 Monocytes % 9.8 Eosinophils % 3.2 Basophils % 0.5 Nucleated RBC % 0.0 Absolute Neutrophils 4.40 Absolute Lymphocytes 1.31 Absolute Monocytes 0.65 Absolute Eosinophils 0.21 Absolute Basophils 0.03 ABG Sample Site ABG pH ABG pCO2 ABG pO2 ABG HCO3 ABG Total CO2 ABG O2 Saturation ABG Base Excess VBG pH 7.31 VBG pCO2 53 H VBG pO2 25 VBG HCO3 26 VBG Total CO2 25 VBG O2 Saturation 38 VBG Base Excess 0 Oxygen Liter Flow FiO2 Sodium 138 Potassium 4.7 Chloride 107 Carbon Dioxide 27.7 Anion Gap 3.3 BUN 26 H Creatinine 1.1 Est GFR (CKD-EPI 2020) 71.32 Glucose 111 H Calcium 8.7 Magnesium 1.8 Total Bilirubin 0.4 AST 22 ALT 23 Alkaline Phosphatase 160 H Troponin I < 50 NT-Pro-B Natriuret Pep Total Protein 7.8 Albumin 2.8 L Urine Color Urine Clarity Urine pH Ur Specific [place] Urine Protein Urine Ketones Urine Blood Urine Nitrite Urine Bilirubin Urine Urobilinogen Ur Leukocyte Esterase Urine RBC Urine WBC Ur Epithelial Cells Urine Crystals Urine Bacteria Urine Casts Urine Mucus Ur Culture Indicated? Urine Glucose Digoxin COVID-19 Source SARS-CoV-2 (PCR) Influenza Type A (PCR) Influenza Type B (PCR) RSV (PCR) 11/16/22 11/16/22 11/16/22 06:09 06:09 06:15 WBC RBC Hgb Hct MCV MCH MCHC RDW Plt Count MPV Immature Gran % Neutrophils % Lymphocytes % Monocytes % Eosinophils % Basophils % Nucleated RBC % Absolute Neutrophils Absolute Lymphocytes Absolute Monocytes Absolute Eosinophils Absolute Basophils ABG Sample Site ABG pH ABG pCO2 ABG pO2 ABG HCO3 ABG Total CO2 ABG O2 Saturation ABG Base Excess VBG pH VBG pCO2 VBG pO2 VBG HCO3 VBG Total CO2 VBG O2 Saturation VBG Base Excess Oxygen Liter Flow FiO2 Sodium Potassium Chloride Carbon Dioxide Anion Gap BUN Creatinine Est GFR (CKD-EPI 2020) Glucose Calcium Magnesium Total Bilirubin AST ALT Alkaline Phosphatase Troponin I NT-Pro-B Natriuret Pep 4833 H Total Protein Albumin Urine Color Urine Clarity Urine pH Ur Specific [place] Urine Protein Urine Ketones Urine Blood Urine Nitrite Urine Bilirubin Urine Urobilinogen Ur Leukocyte Esterase Urine RBC Urine WBC Ur Epithelial Cells Urine Crystals Urine Bacteria Urine Casts Urine Mucus Ur Culture Indicated? Urine Glucose Digoxin 1.02 COVID-19 Source Nasopharynx SARS-CoV-2 (PCR) Negative Influenza Type A (PCR) Negative Influenza Type B (PCR) Negative RSV (PCR) Negative 11/16/22 11/16/22 11/16/22 07:16 08:47 08:48 WBC RBC Hgb Hct MCV MCH MCHC RDW Plt Count MPV Immature Gran % Neutrophils % Lymphocytes % Monocytes % Eosinophils % Basophils % Nucleated RBC % Absolute Neutrophils Absolute Lymphocytes Absolute Monocytes Absolute Eosinophils Absolute Basophils ABG Sample Site Left Radial ABG pH 7.39 ABG pCO2 38 ABG pO2 49 L ABG HCO3 23 ABG Total CO2 21 L ABG O2 Saturation 84 L ABG Base Excess -2 VBG pH VBG pCO2 VBG pO2 VBG HCO3 VBG Total CO2 VBG O2 Saturation VBG Base Excess Oxygen Liter Flow 2 FiO2 28 Sodium Potassium Chloride Carbon Dioxide Anion Gap BUN Creatinine Est GFR (CKD-EPI 2020) Glucose Calcium Magnesium Total Bilirubin AST ALT Alkaline Phosphatase Troponin I < 50 NT-Pro-B Natriuret Pep Total Protein Albumin Urine Color Yellow Urine Clarity Clear Urine pH 5.0 Ur Specific [place] 1.010 Urine Protein Negative Urine Ketones Negative Urine Blood Negative Urine Nitrite Negative Urine Bilirubin Negative Urine Urobilinogen 0.2 Ur Leukocyte Esterase Trace H Urine RBC 0-2 Urine WBC 20-50 H Ur Epithelial Cells Rare Urine Crystals Negative Urine Bacteria Rare Urine Casts Negative Urine Mucus Negative Ur Culture Indicated? Yes Urine Glucose Negative Digoxin COVID-19 Source SARS-CoV-2 (PCR) Influenza Type A (PCR) Influenza Type B (PCR) RSV (PCR) Last Vital Signs Temp 36.5 C 11/16/22 05:59 Pulse 52 L 11/16/22 06:31 Resp 18 11/16/22 06:42 BP 107/67 11/16/22 06:31 Pulse Ox 81 L 11/16/22 07:50 Time Spent Time spent with Patient: 55-74 minutes Time was spent: preparing to see the patient(eg.review tests), obtaining and/or reviewing separately otained hiistory, ordering medications,tests, procedures, referring, communicating with other health geriatric personal care aide (discussion w/ Dr. Watts), indepentently interpreting results, counseling the patient and care coordination
[2022-11-16 11:29] LABS: Troponin I < 50 ng/L (<or=60)
[2022-11-16 11:57] LABS: Lab Add On Test DONE
[2022-11-16] MEDS: Metoprolol CR 50 MG TABCR 25 MG PO (12:05)
[2022-11-16 12:06] LABS: C-Reactive Protein 0.28 mg/dL (0.0-0.3)
[2022-11-16] MEDS: DOXYCYCLINE 100 MG in Normal Saline 100 ML IVPB (12:06)
[2022-11-16 12:48] LABS: Procalcitonin < 0.1 ng/mL
[2022-11-16] MEDS: Gabapentin 300 MG CAP PO ×2 (14:25→20:12)
[2022-11-16] MEDS: Acetaminophen 500 MG TAB 1000 MG PO ×2 (14:25→20:11)
[2022-11-16] MEDS: PIPERACILLIN/TAZO 3.375 GM in Normal Saline 50 ML IVPB ×2 (14:25→22:58)
[2022-11-16] MEDS: Enoxaparin 40 MG/0.4 ML SYR SC (17:45)
[2022-11-16] MEDS: Pantoprazole 40 MG TABCR PO (20:10)
[2022-11-16] MEDS: methylPREDNISolone SUCC 125 MG VIAL 60 MG IVP (20:12)
[2022-11-16] MEDS: guaiFENesin 600 MG TABCR PO (20:13)
[2022-11-16] MEDS: Tamsulosin 0.4 MG CAPCR PO (22:26)
[2022-11-16] MEDS: Atorvastatin 10 MG TAB PO (22:26)
[2022-11-16] MEDS: Mirtazapine 15 MG TAB 7.5 MG PO (22:26)
[2022-11-16] MEDS: Normal Saline 500 ML 20 ML IV (22:27)
[2022-11-16] MEDS: Ferrous Gluconate 324 MG TAB PO (22:27)
[2022-11-17] VITALS (17 sets, daily range): BP systolic 98–131; BP diastolic 56–75; PULSE 60–83; RESP 7–20; TEMP 35.9–36.8; O2SAT 92–98
[2022-11-17] MEDS: DOXYCYCLINE 100 MG in Normal Saline 100 ML IVPB ×2 (00:55→14:18)
[2022-11-17] MEDS: Albuterol/Ipratropium 3 ML UPD VIAL UPD ×4 (03:45→21:06)
[2022-11-17] MEDS: methylPREDNISolone SUCC 125 MG VIAL 60 MG IVP ×3 (04:50→21:06)
[2022-11-17] MEDS: Normal Saline Flush 10 ML SYR IVP ×2 (04:52→14:55)
[2022-11-17] MEDS: PIPERACILLIN/TAZO 3.375 GM in Normal Saline 50 ML IVPB ×3 (06:23→22:37)
[2022-11-17 06:56] LABS: Abs Immature Grans 0.05 10^3/uL (0.0-0.06); Absolute Basophil Count 0.01 10^3/uL (0.0-0.2); Absolute Eosinophil Count 0.01 10^3/uL (0.0-0.7); Absolute Monocyte Count 0.07 10^3/uL (0.1-0.8); Absolute Neutrophil Count 5.44 10^3/uL (1.2-6.7); Basophils % 0.2; Eosinophils % 0.2; HCT 39.6 % (40.0-50.0); HGB 12.3 g/dL (13.5-17.5); Immature Grans % 0.8; Lymphocytes % 9.7; MCH 29.8 pg (27.0-33.0); MCHC 31.1 % (32.0-36.0); MCV 96 fL (80-95); Monocytes % 1.1; Platelet Count 179 10^3/uL (130-400); RBC 4.13 10^6/uL (4.36-5.78); RDW 16.2 % (11.8-14.1); WBC 6.18 10^3/uL (4.4-10.8)
[2022-11-17 07:17] LABS: Anion Gap 8.9 mmol/L (3-11); BUN 31 mg/dL (7-18); CO2 25.1 mmol/L (21.0-32.0); CREATININE 1.4 mg/dL (0.70-1.30); Calcium 8.7 mg/dL (8.5-10.1); Chloride 104 mmol/L (98-107); Glucose 215 mg/dL (74-106); Magnesium 1.8 mg/dL (1.8-2.4); Potassium 5.2 mmol/L (3.5-5.1); Sodium 138 mmol/L (136-145)
[2022-11-17] MEDS: Tiotropium/Olodaterol 10 PUFF INHALER 2 PUFF IH (08:12)
[2022-11-17] MEDS: Furosemide 20 MG/2 ML VIAL IVP ×2 (08:58→17:34)
--- NOTE | 2022-11-17 10:09 | IN_ITS ---
Date of service: 11/17/22 Time of Service: 09:40 PT Notes Visit Reasons: Acute Hypoxemic Respiratory Failure d/t Pneumonia Inpatient Physical Therapy Evaluation Date: 11/17/2022 Referring Doctor:? Darrick Monroe MD PT Orders: PT CONSULT: Exacerbation Chronic cond Precautions: Fall. Standard. Activity as tolerated. Patient Profile/Admitting Diagnosis:?? Patient presented to the ED on 11/16/2022 due to difficulty with breathing. Patient is admitted to [facility] for management of aspiration pneumonia, acute on chronic right congestive heart failure, and COPD exacerbation. PMHX: All Active Problems?(Updated 11/16/22 @ 20:32 by Darrick Monroe MD) Discharge planning issues (Acute) DVT prophylaxis (Acute) Aspiration pneumonia (Acute) Shortness of breath (Acute) Lung mass (Acute) Elevated troponin (Acute) Hypotension (Acute) DNR (do not resuscitate) (Acute) DNR, but would like trial of intubation. See 09/26 Note Acute bronchitis (Acute) Left foot pain (Acute) Palliative care patient (Acute) Underweight (Acute) Diastolic heart failure (Chronic) Closed intertrochanteric fracture of left femur (Acute) s/p IMN fixation (08/28/22)Fall (Acute) Blunt head trauma (Acute) Contusion of elbow, left (Acute) Contusion of left leg (Acute) Closed fracture of left hip (Acute) Mild cognitive impairment (Acute) Advanced care planning/counseling discussion (Acute) Literacy level of illiterate (Acute) Palliative care encounter (Acute) Acute on chronic right-sided congestive heart failure (Acute) Pneumonia (Acute) Hypoxia (Acute) Depression (Chronic) Dental abscess (Acute) 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 Abdominal pain Abnormal radiologic findings on diagnostic imaging of renal pelvis, ureter, or bladder Acute on chronic anemia Acute on chronic diastolic (congestive) heart failure Acute on chronic systolic CHF (congestive heart failure) Adenocarcinoma of esophagus From [facility] [place]:Hx GI Cancer...EGD 04/2021 with friable mucosa. SDOne at that time because of GI blooed Afib Alcohol abuse Alcohol abuse, continuous drinking behavior Anemia Bilateral lower extremity edema CAD (coronary artery disease) of artery bypass graft Cerumen impaction CHF, acute on chronic Closed intertrochanteric fracture Confusion state COVID-19 Diabetes mellitus Difficulty reading Edema Encounter for colorectal cancer screening Epididymitis, right (08/02/16) Essential hypertension Failure to thrive Fall GERD (gastroesophageal reflux disease) GI bleed GI bleeding H/O malignant neoplasm of stomach Heart failure, left, with LVEF 41-49% History of fracture of left hip S/P IM NAIL DOS: 08/28/22History of GI bleed Hoarseness Hydrocele, right (01/23/16) Hyperlipidemia Hypophosphatemia Kyphoscoliosis Low back pain Malnutrition Mild bibasilar atelectasis Pancreatitis Poor hygiene Prediabetes Protein malnutrition Pulmonary hypertension Recent weight loss Rib fractures Shortness of breath Solitary pulmonary nodule Tinnitus, left Tobacco abuse Weight loss Surgical History? cardiac cath Coronary Artery Bypass Gaft (CABG) EGD - IV Sedation Esophagectomy H/O colonoscopy (2007) H/O colonoscopy (04/14/18) dr geller, sigmoid diverticulosis, repeat 10 years History of esophagogastroduodenoscopy (EGD) (09/2017) History of hydrocelectomy History of right inguinal hernia repair repair times twosugrical flap of unhealing wound Social History/Home Situation:? Lives in an apartment. Friend Lyudmila helps out with grocery shopping. Able to heat up meals on wheels. States that he walks with FWW indoors. Reports that he lives with his significant other, Lyudmila, and that they do not receive any services. Equipment Owned/DME: FWW x 2 Subjective:? Resting in bed. Wondering why he has not had anything to eat. FARHAT Smith states that patient has been made NPO. Denies headache, chest pain, and lightheadedness throughout session. Objective:? General Observation: Pleasant and cooperative, frail-appearing. telemetry monitoring in place. Biggs catheter in place. Mental Status: A&Ox2 Pain: Denies ROM: Right Upper Extremity: Shoulder Flexion WFL. Shoulder abduction WFL. Elbow flexion WFL. Wrist flexion WFL. Functional opening and closing of hand WFL. Left Upper Extremity: Shoulder Flexion WFL. Shoulder abduction WFL. Elbow flexion WFL. Wrist flexion WFL. Functional opening and closing of hand WFL. Right Lower Extremity: Hip flexion WFL. Hip abduction WFL. Knee flexion WFL. Ankle dorsiflexion WFL. Ankle plantarflexion WFL. Left Lower Extremity: Hip flexion WFL. Hip abduction WFL. Knee flexion WFL. Ankle dorsiflexion WFL. Ankle plantarflexion WFL. Strength: Right Upper Extremity: Shoulder flexors 3-/5. Shoulder abductors 3-/5. Elbow flexors 4-/5. Elbow extensors 4-/5. Suction Plate Roller Hand strong. Left Upper Extremity: Shoulder flexors 3-/5. Shoulder abductors 3-/5. Elbow flexors 4-/5. Elbow extensors 4-/5. Suction Plate Roller Hand strong. Right Lower Extremity: Hip flexors 3-/5. Hip flexors left 3-/5. Hip abductors 4-/5. Knee flexors 4-/5. Knee extensors 3-/5. Ankle dorsiflexors 3-/5. Ankle plantarflexors 4-/5. Left Lower Extremity: Hip flexors 3-/5. Hip flexors left 3-/5. Hip abductors 4- /5. Knee flexors 4-/5. Knee extensors 3-/5. Ankle dorsiflexors 3-/5. Ankle plantarflexors 4-/5. Bed Mobility/Transfers: sit-stand: minimal assist, cues for hand placement stand-sit: minimal assist, cues for hand placement sit-supine: stand by assist, HOB at 30 degrees Gait:? 30 feet +30 feet with minimal assist, using FWW. Glenys slowed. Oxygen saturation down to 88% on RA with resaturation back up to 90 with seated rest. Balance:? Static Sitting: Normal Dynamic Sitting: Good Static Standing: fair Dynamic Standing: fair Special Tests: Mobility Limitations Standardized Measure [facility] 6 clicks Basic Mobility Inpatient Short Form: Raw Score: 18? CMS Score: 47% impairment ? ? ? Informed Consent/Education:? Patient instructed in purpose of PT consult and plan of care. Assessment:?? Patient presented to the ED on 11/16/2022 due to difficulty with breathing. Patient is admitted to [facility] for management of aspiration pneumonia, acute on chronic right congestive heart failure, and COPD exacerbation. He currently demonstrates the following impairment level findings: 1. decreased LE strength 2. decreased activity tolerance 3. decreased safety and independence with transfers, requiring cues and assistance for technique and equipment management 4. impaired balance 5. shortness of breath Impairments are contributing to the following functional limitations: 1. unable to tolerate household distance ambulation 2. increased fall risk due to? decreased safety and independence with transfers, requiring cues and assistance for technique and equipment management Patient is assessed as? Moderate 41997? moderate complexity based on the following: History: Patient currently being treated in ICU setting for management of acute respiratory failure, with associated limitations in activity tolerance and mobility. He requires skilled PT intervention to maximize safety and mobility. Examination: functional limitations as above Presentation: evolving Decision Making: moderate complexity Goals: Goals X1 week 1. Supine-Sit : supervision 2. Sit-Supine : supervision 3. Sit-Stand : supervision 4. Stand-Sit : supervision 5. Bed-Chair : supervision with FWW 6. Chair-Bed : supervision with FWW 7. Gait : 20' with FWW, CGA Plan of Care/Treatment Plan: 1-2x/day, 7 days/week x 1 week. Plan of care has been reviewed with the APPLICATION PROGRAMMER ANALYST providing the service under Physical Therapy direction. Initiate Physical Therapy intervention for strengthening, bed mobility, transfers, gait, stairs, balance training, use of assistive device. DISCHARGE RECOMMENDATIONS: SNF vs. HH PT based on progress towards goals TREATMENT CODE/TIME: 43000 x 25 minutes beginning at 9:40 AM. Thank you for the opportunity to participate in the care of this patient. Savanna Banks PT, DPT, CLT [facility] [place], [place]
--- NOTE | 2022-11-17 10:39 | PDOC.CMIN ---
Date of service: 11/17/22 Time of Service: 10:39 Care Management Initial Assmt Initial Assessment REASON FOR HOSPITALIZATION:: Acute on chronic right-sided congestive heart failure, Aspiration pneumonia PREVIOUS FUNCTIONAL STATUS/SOCIAL/FAMILY SUPPORTS:: Ilia resides in [facility] with his roommate, Lyudmila. He has a cat. Ilia shares that he had a daughter, however she not to long ago. He uses a cane and is followed by Palliative in the community for his chronic health issues. Ilia uses [facility] for transportation. CURRENT FUNCTIONAL STATUS:: Ilia was sitting in his recliner when CM met with him. He is awake, alert and engages in conversation. Ilia is planning on staying here until he feels better then discharging home with resumption of services. ADVANCE DIRECTIVES:: On file. Chrissy Stewart is health care agent Has patient been provided with info about the portal/API?: Yes Did the patient sign up for the portal?: No CODE STATUS:: DNR/DNI INSURANCE COVERAGE / FINANCIAL ISSUES:: Medicare Medicaid CURRENT HOME/COMMUNITY SERVICES/EQUIPMENT:: [facility] PRIMARY CARE PHYSICIAN:: Silvina Perdue POTENTIAL DISCHARGE NEEDS:: resumption of [facility] RN/PT/OT/INTERLOCKER services, transportation PATIENT/FAMILY EDUCATION NEEDS:: Review of discharge instructions, limitations, diet, activity, follow up plan, discuss Ask Me Three TRANSPORTATION:: via [facility] coordinated by CM PLAN:: PT recommends, SNF vs. PT based on progress towards goals. Ilia is hoping to discharge home with resumption of [facility] RN/PT/OT/INTERLOCKER services. CM will continue to follow. PFSH All Active Problems (Updated 11/16/22 @ 20:32 by Darrick Monroe MD) Discharge planning issues (Acute) DVT prophylaxis (Acute) Aspiration pneumonia (Acute) Shortness of breath (Acute) Lung mass (Acute) Elevated troponin (Acute) Hypotension (Acute) DNR (do not resuscitate) (Acute) DNR, but would like trial of intubation. See 09/26 Note Acute bronchitis (Acute) Left foot pain (Acute) Palliative care patient (Acute) Underweight (Acute) Diastolic heart failure (Chronic) Closed intertrochanteric fracture of left femur (Acute) s/p IMN fixation (08/28/22) Fall (Acute) Blunt head trauma (Acute) Contusion of elbow, left (Acute) Contusion of left leg (Acute) Closed fracture of left hip (Acute) Mild cognitive impairment (Acute) Advanced care planning/counseling discussion (Acute) Literacy level of illiterate (Acute) Palliative care encounter (Acute) Acute on chronic right-sided congestive heart failure (Acute) Pneumonia (Acute) Hypoxia (Acute) Depression (Chronic) Dental abscess (Acute) 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) Abnormal chest CT (Acute) Full code status (Acute) 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) CAP (community acquired pneumonia) (Acute) Generalized weakness (Acute) Skin tear of left elbow without complication (Acute) Chronic obstructive lung disease (Chronic) Tricuspid regurgitation (Chronic) CAD (coronary artery disease) (Chronic) Hypertension (Chronic) Medical History Abdominal pain Abnormal radiologic findings on diagnostic imaging of renal pelvis, ureter, or bladder Acute on chronic anemia Acute on chronic diastolic (congestive) heart failure Acute on chronic systolic CHF (congestive heart failure) Adenocarcinoma of esophagus From [facility] [place]:Hx GI Cancer...EGD 04/2021 with friable mucosa. SDOne at that time because of GI blooed Afib Alcohol abuse Alcohol abuse, continuous drinking behavior Anemia Bilateral lower extremity edema CAD (coronary artery disease) of artery bypass graft Cerumen impaction CHF, acute on chronic Closed intertrochanteric fracture Confusion state COVID-19 COVID-19 Diabetes mellitus Difficulty reading Edema Encounter for colorectal cancer screening Epididymitis, right (08/02/16) Essential hypertension Failure to thrive Fall GERD (gastroesophageal reflux disease) GI bleed GI bleeding H/O malignant neoplasm of stomach Heart failure, left, with LVEF 41-49% History of fracture of left hip S/P IM NAIL DOS: 08/28/22 History of GI bleed Hoarseness Hydrocele, right (01/23/16) Hyperlipidemia Hypophosphatemia Kyphoscoliosis Low back pain Malnutrition Mild bibasilar atelectasis Pancreatitis Poor hygiene Prediabetes Protein malnutrition Pulmonary hypertension Recent weight loss Rib fractures Shortness of breath Solitary pulmonary nodule Tinnitus, left Tobacco abuse Weight loss Surgical History cardiac cath Coronary Artery Bypass Gaft (CABG) EGD - IV Sedation Esophagectomy H/O colonoscopy (2007) H/O colonoscopy (04/14/18) dr geller, sigmoid diverticulosis, repeat 10 years History of esophagogastroduodenoscopy (EGD) (09/2017) History of hydrocelectomy History of right inguinal hernia repair repair times two sugrical flap of unhealing wound Family History Mother No problems noted. Father No problems noted. Social History Smoking/Tobacco Use Status: Former Tobacco Use Smoking risk assessment performed?: Yes Alcohol Intake: former Drug use: Never Substance use type: does not use Current gender identity: male What type of physical activity do you participate in: none Do you feel safe at home: Yes Do you feel safe in your relationship?: Yes
--- NOTE | 2022-11-17 11:30 | DI.RAD_ITS ---
Exam(s) RF MODIFIED SPEECH BA SWALLOW TECHNIQUE: Modified barium swallow was performed in conjunction with speech pathology. CONTRAST MATERIAL: Oral barium Oral water soluble contrast was administered. COMPARISON: No exams were available for comparison FINDINGS: Fluoroscopy was provided during swallowing mechanism study performed by the speech pathologist. thi s study did reveal mild penetration but no grsiel aspiration. See speech therapist report for details . IMPRESSION: As above. RADIATION DOSE DELIVERED: wayne Farias=15.8 mGy
--- NOTE | 2022-11-17 13:52 | W.SPSTE ---
Date of service: 11/17/22 Time of Service: 12:00 Subjective Clinical (Bedside) Swallow Evaluation Speech Language Pathology Patient referred for Clinical Swallow Evaluation from Dr Monroe given likely aspiration pneumonia. Precautions: Fall, Standard, DNR/DNI SUBJECTIVE: Patient received alert/awake, agreeable to evaluation, able to communicate wants/needs effectively; partially able to demonstrate comprehension of recommendations for safe p.o. intake upon discharge once deemed medically stable.?RT also present for portion of this session preparing respiratory treatments and taking SPO2. Patient reports no difficulty with swallowing at baseline, except for needing softer foods in setting of edentulousness. He denies chooking events, coughing or aspiration events, sensation of pharyngeal stasis, difficulty swallowing pills, nausea/vomiting, denies reflux or heartburn, denies coughing overnight or when lying down. 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 ? HPI: Pt is a 72 year old M admitted with pneumonia, R sided CHF, and COPD exacerbation. Predisposing dysphagia risk factors: COPD, CAD s/p CABG, GERD, esophagectomy, cognitive deficits Clinical signs of possible chronic dysphagia: FTT, multiple pnas Precipitating dysphagia risk factors / triggering event: currently with pneumonia thought to be aspiration related. ? IMPRESSIONS & PLAN: Suspect at least mild oral-pharyngeal and possibly esophageal dysphagia in setting of prior esophagectomy. Patient presents with occasional delayed coughing after large volumes liquids and after solid textures, though this is undifferentiated potentially from baseline coughing in setting of PNA and CHF. He does appear with quite delayed swallow initiation. Given his level of frailty and baseline co-morbidities, including failure to thrive and history of PNA's it is certainly indicated to perform MBSS while patient is admitted. has already placed orders, will plan to do this TRAM this afternoon since patient is very hungry and requesting PO. Further LIMOUSINE DRIVER services: Pending results of MBSS ? Instrumentation: ? VFSE/MBSS ? While on unit ? Diet Texture Modification(s): IDDSI Level(s) Remain NPO until MBSS is completed later this date. PFSH All Active Problems?(Updated 11/16/22 @ 20:32 by Darrick Monroe MD) Discharge planning issues (Acute) DVT prophylaxis (Acute) Aspiration pneumonia (Acute) Shortness of breath (Acute) Lung mass (Acute) Elevated troponin (Acute) Hypotension (Acute) DNR (do not resuscitate) (Acute) DNR, but would like trial of intubation. See 09/26 NoteAcute bronchitis (Acute) Left foot pain (Acute) Palliative care patient (Acute) Underweight (Acute) Diastolic heart failure (Chronic) Closed intertrochanteric fracture of left femur (Acute) s/p IMN fixation (08/28/22)Fall (Acute) Blunt head trauma (Acute) Contusion of elbow, left (Acute) Contusion of left leg (Acute) Closed fracture of left hip (Acute) Mild cognitive impairment (Acute) Advanced care planning/counseling discussion (Acute) Literacy level of illiterate (Acute) Palliative care encounter (Acute) Acute on chronic right-sided congestive heart failure (Acute) Pneumonia (Acute) Hypoxia (Acute) Depression (Chronic) Dental abscess (Acute) 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 Abdominal pain Abnormal radiologic findings on diagnostic imaging of renal pelvis, ureter, or bladder Acute on chronic anemia Acute on chronic diastolic (congestive) heart failure Acute on chronic systolic CHF (congestive heart failure) Adenocarcinoma of esophagus From [facility] [place]:Hx GI Cancer...EGD 04/2021 with friable mucosa. SDOne at that time because of GI blooedAfib Alcohol abuse Alcohol abuse, continuous drinking behavior Anemia Bilateral lower extremity edema CAD (coronary artery disease) of artery bypass graft Cerumen impaction CHF, acute on chronic Closed intertrochanteric fracture Confusion state COVID-19 COVID-19 Diabetes mellitus Difficulty reading Edema Encounter for colorectal cancer screening Epididymitis, right (08/02/16) Essential hypertension Failure to thrive Fall GERD (gastroesophageal reflux disease) GI bleed GI bleeding H/O malignant neoplasm of stomach Heart failure, left, with LVEF 41-49% History of fracture of left hip S/P IM NAIL DOS: 08/28/22History of GI bleed Hoarseness Hydrocele, right (01/23/16) Hyperlipidemia Hypophosphatemia Kyphoscoliosis Low back pain Malnutrition Mild bibasilar atelectasis Pancreatitis Poor hygiene Prediabetes Protein malnutrition Pulmonary hypertension Recent weight loss Rib fractures Shortness of breath Solitary pulmonary nodule Tinnitus, left Tobacco abuse Weight loss Surgical History? cardiac cath Coronary Artery Bypass Gaft (CABG) EGD - IV Sedation Esophagectomy H/O colonoscopy (2007) H/O colonoscopy (04/14/18) dr geller, sigmoid diverticulosis, repeat 10 yearsHistory of esophagogastroduodenoscopy (EGD) (09/2017) History of hydrocelectomy History of right inguinal hernia repair repair times twosugrical flap of unhealing wound ? OBJECTIVE: Sp02: 92% on room air per RT who was present - no s/sx dyspnea Language: Grossly WFL Hearing: WFL for the purposes of this evaluation Mental Status: Oriented only to self, month. Required multiple choice for accuracy with year. Recall of current events impaired Speech: mildly dysarthric likely in setting of deconditioning and weakness, edentulousness, but intelligible. Dysphonia. Oral Motor Exam: ? Edentulous ? Dentures ? Top ? No bottom ? Oral Mucosa ? Moist ? Good oral care ? CN V - Trigeminal ? Jaw Movement ? WFL ? CN VII ? Labial/Facial ? Impaired strength (cheek puff against resistance) ? CN IX ? Palate ? WFL ? CN X ? Laryngeal ? Vocal quality ? Rough ? Breathy ? Strained ? Volitional cough ? Mildly Weak ? CN XII ? Lingual ? WFL ? Volitional Swallow ? Robust laryngeal displacement ?Suspect delayed onset of swallow ? [place] Swallow Protocol Results ? FAIL Overt signs of aspiration during or immediately after completion. ? Food items tested: ?? X IDDSI 0: Spicer juice x 2 single and consecutive/continuous sips via straw X IDDSI 4: Pudding x 5 bites IDDSI 5: Patient refused egg salad X IDDSI 7: Zack cracker x 2 small bites Oral phase: Difficulty chewing (prolonged, reduced rotary movement) Residue (mild, with dry solid only) Pharyngeal phase: Delayed swallow initiation Cough after swallow (1x mild delay after consecutive sips liquid, 1x following multiple trials of dry cracker Other: Patient endorses not wanting any more liquids after consecutive sips of orange juice. He denies this being due to the taste but is unable to explain why he did not like the orange juice. Goals: Patient will participate in MBSS to further characterize swallow function and inform risk management recommendations. Time spent: 30 minutes Coding Diagnoses CPT Codes EVALUATE SWALLOWING FUNCTION - [id number] ([id number])
--- NOTE | 2022-11-17 13:52 | W.PM.PROGNOT ---
Date of Service Date of service: 11/17/22 Time of Service: 13:15 Assessment and Plan Assessment and plan (1) Aspiration pneumonia: Status: Acute Assessment and plan: continue Zosyn, aerosolized bronchodilators, pulmonary toiletry, oxygen. await BIAS MACHINE OPERATOR HELPER consult to determine diet Professional time spent interviewing and examining patient, discussion of goals of care with hospital team (care management, nursing and consulting professionals) was 30 minutes. (2) Acute on chronic right-sided congestive heart failure: Status: Acute Assessment and plan: iv lasix; check results of follow up echocardiogram (3) Chronic obstructive lung disease: Status: Chronic Assessment and plan: steroids and bronchodilators along w/ antibiotics as outlined above; titrate oxygen to keep SPO2 over 88%. (4) Afib: Assessment and plan: rate is currently controlled. continue metoprolol. not a candidate for anticoagulation d/t prior GI bleeds. (5) DVT prophylaxis: Status: Acute Assessment and plan: enoxaparin SC (6) Discharge planning issues: Status: Acute Assessment and plan: patient is DNR/DNI as per prior admissions. discharge plans will be determined after we see how he responds to medical treatment. I will consult w/ P.T. to evaluate his gait, strength and ADL performance Subjective Subjective Interval history since last seen: Ilia is complaining of being made NPO this morning. I explained to him that I did this d/t his recurrent presentation w/ aspiration pneumonia. I told him that we are getting a BIAS MACHINE OPERATOR HELPER consult to evaluate his dysphagia. Once the BIAS MACHINE OPERATOR HELPER has evaluated him and determined the safest diet possible then we will reorder his diet. Exam Narrative Exam Narrative: Ilia is sitting up in his chair, alert, oriented to person, circumstances Lungs: bibasilar dry rales, prolonged expiratory phase, end expiratory wheezes; no rhonchi Heart: irregularly irregular, controlled rate Abdomen: scaphoid, soft, nontender Extremities: no cyanosis or edema, normal ROM Objective Last Vital Signs Temp 35.9 C L 11/17/22 11:06 Pulse 83 11/17/22 12:48 Resp 16 11/17/22 12:48 BP 117/73 11/17/22 11:06 Pulse Ox 93 11/17/22 12:48 Laboratory Results - last 24 hr 11/17/22 11/17/22 05:48 05:48 WBC 6.18 RBC 4.13 L Hgb 12.3 L Hct 39.6 L MCV 96 H MCH 29.8 MCHC 31.1 L RDW 16.2 H Plt Count 179 MPV 10.0 Immature Gran % 0.8 Neutrophils % 88.0 Lymphocytes % 9.7 Monocytes % 1.1 Eosinophils % 0.2 Basophils % 0.2 Nucleated RBC % 0.0 Absolute Neutrophils 5.44 Absolute Lymphocytes 0.60 L Absolute Monocytes 0.07 L Absolute Eosinophils 0.01 Absolute Basophils 0.01 Sodium 138 Potassium 5.2 H Chloride 104 Carbon Dioxide 25.1 Anion Gap 8.9 BUN 31 H Creatinine 1.4 H Est GFR (CKD-EPI 2020) 53.40 Glucose 215 H Calcium 8.7 Magnesium 1.8 Time Spent with Patient Time Spent with Patient: 25-34 minutes Time was spent: preparing to see the patient(eg.review tests), ordering medications,tests, procedures, referring, communicating with other health congregational care pastor, indepentently interpreting results, counseling the patient and care coordination
[2022-11-17] MEDS: Barium Sulfate 81% w/w for Oral Suspension 148 GM BTL PO (14:01)
[2022-11-17] MEDS: Barium Sulfate 700 MG TAB PO (14:01)
[2022-11-17] MEDS: Barium Sulfate Oral Paste 40% W/V 230 ML TUBE PO (14:02)
[2022-11-17] MEDS: Gabapentin 300 MG CAP PO ×2 (14:19→21:06)
[2022-11-17] MEDS: Acetaminophen 500 MG TAB 1000 MG PO ×2 (14:42→21:06)
--- NOTE | 2022-11-17 15:08 | ST.MBS_ITS ---
Date of Service Date of service: 11/17/22 Time of Service: 15:08 Modified Barium Swallow Study Findings: Video fluoroscopic Swallowing Evaluation (VFSE) / Modified Barium Swallow Study (MBSS) Speech Language Pathology Report Patient is 72 y/o M with COPD, CAD s/p CABG, history of esophagectomy, now with aspiration pna and R CHF, referred for VFSE/MBSS from Dr. Monroe given suspected dysphagia contributing to respiratory status. See NUTRITION AND DIETETICS INSTRUCTOR Initial evaluation report for further history. IMPRESSIONS: Mild [id number] oropharyngoesophageal dysphagia. Characterized primarily by significantly delayed pharyngeal onset and esophageal stasis for barium tablet. Patient also appears to require extra effort to achieve A/P transit, possibly complicated by dry mouth and kyphotic posture. Dysphagia resulting in penetration of liquids into the larynx prior to and during the swallow. Patient experienced 1 aspiration event, however, this was cleared/ejected spontaneously. Also noting stasis of barium tablet in the mid-esophagus not resolved with liquid wash, requiring puree chaser to to push it into the stomach. See objective below for further characteristics of swallow. Small volumes of thin liquids were consistently tolerated without aspiration, at least in the limited number of trials administered during the study. Appears at higher risk with larger volumes and mixed consistencies, and without significant improvement with increased viscosity. Given reflux and stasis noted in esophageal phases and known history of esophagectomy, it is also reasonable to assume that reflux aspiration could be a contributing factor as well as dysphagia and cardiopulmonary status. Patient appears to be at mild risk for potential aspiration PNA and/or pulmonary compromise, and high risk for malnutrition/dehydration. With excellent oral care and other aspiration precautions outlined below, risk for aspiration PNA should further decrease. Diet modification is indicated; non-oral nutrition is not indicated. Swallow prognosis is fair given: Positive prognostic factors: Age, Severity Negative prognostic factors: Cognitive status, Overall medical status and pending patient/caregiver training in risk management as outlined, including use of trialed compensatory strategies. RECOMMENDATIONS: Diet Texture Recommendation:? IDDSI LEVEL SOLIDS 5-Minced & Moist Solids LIQUIDS 0-Thin Liquids Please see further details at?www.iddsi.org http://www.iddsi.org/ MEDICATIONS Whole, or Crushed (if large), as able with 4-Puree Do not alter medications (e.g., cut)? without advice from your MD or pharmacist. Level of Assistance/Supervision: 1:1 close supervision for all PO intake, provide cues for small sips PO intake only when awake/alert? RISK MANAGEMENT: HOB upright as tolerated; up to chair for all PO intake. Small bites, approx [id number] Very small sips, approx 5mL / teaspoon Straws OK Encourage physical mobility as tolerated. Oral hygiene BID/2x per day & before/after PO intake, using friction with toothbrush on all oral structures as tolerated? Reflux Management: Smaller/More frequent meals throughout the day to reduce reflux Maintain upright position at least 30 minutes after meals Avoid meals/snacks 2-3 hours prior to reclining/sleeping Sleep with head of bed elevated to reduce likelihood of nocturnal reflux Risk Management Strategies:? Control risk factors for aspiration pneumonia via (a) thorough oral hygiene & (b) maintaining physical mobility as tolerated PLAN: NUTRITION AND DIETETICS INSTRUCTOR to follow while on unit, pending progress may benefit from NUTRITION AND DIETETICS INSTRUCTOR or SNF at discharge. Goals: Patient will participate in MBSS to further characterize swallow function and inform risk management recommendations. GOAL MET Patient will tolerate safest/least restrictive diet of Minced/Moist Solids and Thin Liquids without s/sx aspiration. Patient/caregivers will be independent with aspiration precautions, diet modifications, and safe swallowing strategies. ----- OBJECTIVE Videofluoroscopic Swallow Evaluation (VFSE/MBSS) was conducted in the lateral projection by Speech-Language Pathologist, in collaboration with Radiologist, to evaluate oropharyngeal swallow function. Anatomic view under fluoroscopy: Radiologist noting hiatal hernia. PO Barium Contrast Trials Oral barium water-soluble contrast was administered as follows: IDDSI Level 0 Varibar thin liquid (40% w/v) (via straw, tsp) IDDSI Level 2 Varibar nectar thick/mildly thick liquid (40% w/v) (via straw) IDDSI Level 4 Varibar pudding/pureed/extremely thick (40% w/v) IDDSI Level 7 Regular Solid: 1/2 felton cracker coated in 3 mL Varibar pudding 13 mm barium tablet taken with Thin Liquids. MBSImP Component Scores: COMPONENT Scale SCORE 1 Lip closure (0-4) 2 Resulted in escape from interlabial space or lateral juncture, but no extension beyond vermilion border 2 Hold PositionA (0-3) 0 Maintained a cohesive bolus between tongue to palatal seal 3 Bolus Preparation (0-4) 1 Resulted in slow prolonged chewing/mashing with complete re-collection 4 Bolus Transport (0-4) 2 Was with slowed tongue motion 5 Oral Residue (0-4) 1 Was a trace, lining oral structures 6 Swallow Initiation (0-4) 3 Occurred when the bolus head was in the pyriform sinuses 7 Soft Palate Elevation (0-4) 1 Allowed a trace column of contrast or air b etween soft palate and pharyngeal wall 8 Laryngeal Elevation (0-3) 2 Was incomplete, with minimal superior movement o f thyroid cartilage with minimal approximation of arytenoids to epiglottic petiole 9 Anterior Hyoid Motion (0-2) 1 Demonstrated partial anterior movement 10 Epiglottic Movement (0-2) 0 Resulted in complete inversion 11 Laryngeal Closure (0-2) 1I Was incomplete with narrow a column of air/contrast in laryngeal vestibule 12 Pharyngeal Stripping Wave (0-2) 1 Was present, but diminished 13 Pharyngeal Contraction (0-3) NA 14 PES Opening (0-3) 0 Was completely distended and complete duration with no obstruction of flow 15 Tongue Base Retraction (0-4) 1 Allowed a trace column of contrast or air between tongue base and pharyngeal wall 16 Pharyngeal Residue (0-4) 1 Showed a trace within or on pharyngeal structure s 17 Esophageal Clearance (0-4) 2 Resulted in esophageal retention with retrogra de flow below pharyngoesophageal segment Results: COMPONENT Scale SCORE 1 Oral Score (0-18) 6 2 Pharyngeal Score (0-29) 6 3 Esophageal Score (0-4) 2 Dysphagia Outcome and Severity Scale: C COMPONENT Scale SCORE 1 LEVEL (1-7) 4 Full PO: Modified Diet and/or Kay - Mild-moderate dysphagia; Intermittent supervision/cueing and/or 1 or 2 consistencies restricted Penetration-Aspiration Scale: COMPONENT Scale SCORE 1 Thin liquid (1-8) 6 Contrast entered the airway, passed below the vocal fold s, and was ejected into the larynx or out of the airway. 2 Bunk Foss thick (1-8) 3 Contrast entered the airway, remained above the vocal folds, and was not ejected from the airway. 3 Honey thick (1-8) NA 4 Pudding thick (1-8) 1 Contrast did not enter the airway 5 Cookie (1-8) 1 Contrast did not enter the airway Trialed Compensatory Strategies & Outcome: Maneuvers Successful (+) Unsuccessful (-) Postures Successful (+) Unsuccessful (-) E 3 second Preparatory Set? ? +/- Chin Tuck Posture? ? natural/kyphotic, Cough? ? Posterior Head tilt?? ? - ? Reflexive? Cued? Throat Clear? ? Head Tilt to? Reflexive? Left? Cued? Right? ? Saliva swallow? ? Head Turn/Rotate to? ? Supraglottic Swallow? Left? ? Super-supraglottic Swallow? Right? ? Bolus Modifications Successful (+) Unsuccessful (-) Delivery/Alternating Consistencies ? Follow with Liquid Wash - ? Follow with Solid Bolus? + (puree, for esophageal clearance) Delivery/Via Straw? Reduced Volume? ? + Reduced Rate of Intake? ? + Increased Viscosity? ? minimal to no improvement Other:?? ? Thank you for allowing us to take part in this patient's care. Please feel free to contact the [facility] Speech Language Pathology Department with any questions/concerns. Coding CPT Codes MOTION FLUOROSCOPY/SWALLOW - [id number] ([id number])
[2022-11-17] MEDS: Enoxaparin 40 MG/0.4 ML SYR SC (17:34)
[2022-11-17] MEDS: Tamsulosin 0.4 MG CAPCR PO (20:38)
[2022-11-17] MEDS: Pantoprazole 40 MG TABCR PO (21:06)
[2022-11-17] MEDS: Atorvastatin 10 MG TAB PO (21:06)
[2022-11-17] MEDS: guaiFENesin 600 MG TABCR PO (21:06)
[2022-11-17] MEDS: Protein Nutritional Supplement 16 GM 1 OUNCE PACKET PO (21:07)
[2022-11-17] MEDS: Mirtazapine 15 MG TAB 7.5 MG PO (22:37)
[2022-11-17] MEDS: Ferrous Gluconate 324 MG TAB PO (22:38)
[2022-11-18] VITALS (10 sets, daily range): BP systolic 114–142; BP diastolic 70–74; PULSE 66–85; RESP 1–20; TEMP 35.6–36.7; O2SAT 91–96
[2022-11-18 00:01] LABS: Legionella Ag Detection Urine Negative (Negative)
[2022-11-18] MEDS: DOXYCYCLINE 100 MG in Normal Saline 100 ML IVPB ×2 (00:29→11:47)
[2022-11-18] MEDS: methylPREDNISolone SUCC 125 MG VIAL 60 MG IVP ×2 (04:58→11:46)
[2022-11-18] MEDS: PIPERACILLIN/TAZO 3.375 GM in Normal Saline 50 ML IVPB ×2 (04:58→13:27)
[2022-11-18] MEDS: Albuterol/Ipratropium 3 ML UPD VIAL UPD ×2 (07:35→12:44)
[2022-11-18] MEDS: Tiotropium/Olodaterol 10 PUFF INHALER 2 PUFF IH (07:35)
[2022-11-18] MEDS: Furosemide 20 MG/2 ML VIAL IVP (09:28)
[2022-11-18] MEDS: Protein Nutritional Supplement 16 GM 1 OUNCE PACKET PO ×2 (09:29→13:27)
[2022-11-18] MEDS: Normal Saline Flush 10 ML SYR IVP (09:29)
[2022-11-18] MEDS: Polyethylene Glycol 3350 17 GM PACKET PO (09:29)
[2022-11-18] MEDS: Aspirin E.C. 81 MG TABEC 162 MG PO (09:30)
[2022-11-18] MEDS: Gabapentin 300 MG CAP PO ×2 (09:30→13:27)
[2022-11-18] MEDS: Digoxin 0.125 MG TAB PO (09:31)
[2022-11-18] MEDS: Pantoprazole 40 MG TABCR PO (09:31)
[2022-11-18] MEDS: Ferrous Gluconate 324 MG TAB PO (09:31)
[2022-11-18] MEDS: guaiFENesin 600 MG TABCR PO (09:31)
[2022-11-18] MEDS: Metoprolol CR 50 MG TABCR 25 MG PO (09:32)
[2022-11-18] MEDS: Acetaminophen 500 MG TAB 1000 MG PO ×2 (09:32→13:27)
[2022-11-18] MEDS: Cholecalciferol (Vitamin D3) 1,000 UNIT TAB 2000 UNITS PO (09:32)
[2022-11-18] MEDS: Multivitamin w/Minerals TAB 1 TAB PO (09:33)
--- NOTE | 2022-11-18 10:39 | W.NUTCONSULT ---
Date of service: 11/18/22 Time of Service: 10:39 Nutritional Consult ASSESSMENT: Ilia admitted with aspiration PNA with PMH: CHF, COPD, Pulm fibrosis and malnutrition. BMI of 18 typical for him in last year. This is second hospitalization in 30 days for him. Diet upgraded by MIDDLE SCHOOL MATH TEACHER to minced and moist with thin liquids. PO intake has been excellent since admission. Will supplement intake with ensure qd. At high nutritional risk in view of low BMI. NUTRITIONAL DIAGNOSIS: chronic malnutrition in view of BMI<19 INTERVENTION: Continue current diet, supplement with ensure shake qd MONITORING AND EVALUATION: Will monitor po intake, labs and weight. Time Spent in Nutritional Counseling and Treatment: 0
--- NOTE | 2022-11-18 14:56 | PDOC.CMPRO ---
Date of service: 11/18/22 Time of Service: 14:56 Care Management Progress Note Progress Note Text Progress Note Text: S/O: Ilia was lying in bed when CM met with him. He is awake and engages in conversation. He continues to require hospitalization, he is on IV ABX and further medical workup in being done due to dysphagia. Ilia is not agreeable to SNF for STR. Anticipate, Ilia will discharge home with resumption of [facility] services when medically ready. A: 72 year old male admitted to [facility] 11/16/22 for Acute on chronic right-sided congestive heart failure, Aspiration pneumonia P: PT recommends, SNF vs. PT based on progress towards goals. Ilia's plan is to discharge home with resumption of H RN/PT/OT services. He will transport via [facility] private vehicle. CM will continue to follow.
--- NOTE | 2022-11-18 15:32 | PGE_ITS ---
Date of Service Date of service: 11/18/22 Time of Service: 15:32 Assessment and Plan Assessment and plan (1) Aspiration pneumonia: Status: Acute Assessment and plan: continue Zosyn, aerosolized bronchodilators, pulmonary toiletry, oxygen. CLIENT SUPPORT MANAGER consult done and appreciated. She recommended feedings w/ moist and minced w/ thin liquids which he seems to be tolerating. all feedings to be supervised. I will repeat his labs tomorrow but if his respiratory status remains stable on room air, then I think he can be dc home w/ home health services and finish a week of Augmentin as outpatient. Lalitha has not seen him today but did an evaluation yesterday. Sylvie recommends that he either go for SNF or home w/ home health, P.T. Patient prefers to return home. Professional time spent interviewing and examining patient, discussion of goals of care with hospital team (care management, nursing and consulting professionals) was 30 minutes. (2) Acute on chronic right-sided congestive heart failure: Status: Acute Assessment and plan: change iv lasix to oral lasix. continue to follow daily BMP. Echo has not been done as this was done 07/20/22. This showed HFPEF, LVEF 60%, RV is moderately dilated and MANISHA moderately dilated, left atrium mildly dilated, mild MR and mod to severe TR. (3) Chronic obstructive lung disease: Status: Chronic Assessment and plan: steroids and bronchodilators along w/ antibiotics as outlined above; titrate oxygen to keep SPO2 over 88%. (4) Afib: Assessment and plan: rate is currently controlled. continue metoprolol. not a candidate for anticoagulation d/t prior GI bleeds. (5) DVT prophylaxis: Status: Acute Assessment and plan: enoxaparin SC (6) Discharge planning issues: Status: Acute Assessment and plan: patient is DNR/DNI as per prior admissions. dc to home w/ HH, PT, will dc home in a.m. Subjective Subjective Interval history since last seen: Per nursing, he ate about 20% of his breakfast and 20% of his lunch. No choking or coughing spells after eating. Patient denies any choking. He does not like the liquid protein citrus flavored supplements. I aske nutrition to see if they have a supplement that is vanilla flavorered (patient preference). he is now on room air and his oxygen saturation is 95%. Exam Narrative Exam Narrative: Ilia is sitting up in bed, alert and oriented Lungs: some fine basilar rales, no rhonchi; prolonged expiratory phase but otherwise clear in mid and upper lung echols Heart: irregularly irregular Abdomen: soft, nontender, normal bowel sounds. Objective Last Vital Signs Temp 36.6 C 11/18/22 15:30 Pulse 72 11/18/22 15:30 Resp 19 11/18/22 15:30 BP 114/70 11/18/22 15:30 Pulse Ox 95 11/18/22 15:30 Laboratory Results - last 24 hr 11/17/22 11:53 Urine Legionella Ag Negative Time Spent with Patient Time Spent with Patient: 25-34 minutes Time was spent: preparing to see the patient(eg.review tests), ordering medications,tests, procedures, referring, communicating with other health wound care technician, indepentently interpreting results and care coordination
[2022-11-18 15:48] LABS: Streptococcus Pneumoniae Ag, U Negative (Negative)
[2022-11-18] MEDS: Enoxaparin 40 MG/0.4 ML SYR SC (17:33)
--- NOTE | 2022-11-18 20:43 | NUR.NOTE ---
Nursing Note:pt resting when rn enters room. this rn attempted to give patient medications, pt said he didnt want them and that he would take them tomorrow. This nurse oriented pt to time and explained that he could not take his pm medications in the morning. Pt continued to refuse and said he does this every night. this rn reviewed his cahrt to find that he had these same medications within 30 minutes of the time I offered to him now, still refused. CC informed. wctm.
[2022-11-19 01:02] VITALS: PULSE 65
--- NOTE | 2022-11-19 01:12 | NUR.NOTE ---
Nursing Note: pt continues to refuse all meds. wctm
[2022-11-19 03:25] VITALS: BP 138/82; PULSE 65; RESP 19; TEMP 35.6; O2SAT 94
[2022-11-19] MEDS: methylPREDNISolone SUCC 125 MG VIAL 60 MG IVP ×2 (04:17→13:23)
[2022-11-19] MEDS: PIPERACILLIN/TAZO 3.375 GM in Normal Saline 50 ML IVPB (06:02)
[2022-11-19 06:32] LABS: Abs Immature Grans 0.04 10^3/uL (0.0-0.06); Absolute Basophil Count 0.01 10^3/uL (0.0-0.2); Absolute Monocyte Count 0.49 10^3/uL (0.1-0.8); Absolute Neutrophil Count 7.16 10^3/uL (1.2-6.7); Basophils % 0.1; HCT 37.4 % (40.0-50.0); HGB 12.2 g/dL (13.5-17.5); Immature Grans % 0.5; Lymphocytes % 8.3; MCH 30.7 pg (27.0-33.0); MCHC 32.6 % (32.0-36.0); MCV 94 fL (80-95); MPV 10.5 fL (8.0-11.0); Monocytes % 5.8; Neutrophils % 85.3; Platelet Count 188 10^3/uL (130-400); RBC 3.98 10^6/uL (4.36-5.78); RDW 16.3 % (11.8-14.1); RDW-SD 55.5 fL
[2022-11-19 06:51] LABS: Anion Gap 10.2 mmol/L (3-11); BUN 49 mg/dL (7-18); C-Reactive Protein 0.11 mg/dL (0.0-0.3); CO2 25.8 mmol/L (21.0-32.0); CREATININE 1.1 mg/dL (0.70-1.30); Chloride 106 mmol/L (98-107); Estimated GFR 71.32 (mL/min/1.73m2); Glucose 107 mg/dL (74-106); Potassium 4.2 mmol/L (3.5-5.1); Sodium 142 mmol/L (136-145)
[2022-11-19 07:07] LABS: Procalcitonin < 0.1 ng/mL
[2022-11-19 07:21] VITALS: PULSE 59
[2022-11-19 07:26] VITALS: BP 145/70; PULSE 64; RESP 16; TEMP 36.7; O2SAT 95
[2022-11-19] MEDS: Metoprolol CR 50 MG TABCR 25 MG PO (08:09)
[2022-11-19] MEDS: Acetaminophen 500 MG TAB 1000 MG PO ×2 (08:10→13:27)
[2022-11-19] MEDS: Cholecalciferol (Vitamin D3) 1,000 UNIT TAB 2000 UNITS PO (08:10)
[2022-11-19] MEDS: Multivitamin w/Minerals TAB 1 TAB PO (08:10)
[2022-11-19] MEDS: Aspirin E.C. 81 MG TABEC 162 MG PO (08:10)
[2022-11-19] MEDS: guaiFENesin 600 MG TABCR PO (08:11)
[2022-11-19] MEDS: Pantoprazole 40 MG TABCR PO (08:11)
[2022-11-19] MEDS: Gabapentin 300 MG CAP PO ×2 (08:11→13:27)
[2022-11-19] MEDS: Digoxin 0.125 MG TAB PO (08:11)
[2022-11-19] MEDS: Polyethylene Glycol 3350 17 GM PACKET PO (08:11)
[2022-11-19] MEDS: Furosemide 40 MG TAB PO (08:11)
[2022-11-19] MEDS: Tiotropium/Olodaterol 10 PUFF INHALER 2 PUFF IH (08:28)
[2022-11-19 10:59] VITALS: BP 111/71; PULSE 56; RESP 16; TEMP 36.2; O2SAT 95
[2022-11-19] MEDS: DOXYCYCLINE 100 MG in Normal Saline 100 ML IVPB (13:22)
[2022-11-19] MEDS: Ferrous Gluconate 324 MG TAB PO (13:27)
--- NOTE | 2022-11-19 14:17 | W.PM.DS.N ---
Date of service: 11/19/22 Time of Service: 14:17 DS: Diagnosis Discharge Diagnosis (1) Aspiration pneumonia: Status: Acute (2) Acute on chronic right-sided congestive heart failure: Status: Acute (3) Chronic obstructive lung disease: Status: Chronic (4) Afib: Discharge Plan Disposition Patient Disposition: Home W/Home Health Services Condition: Stable Discharge Details Reason For Visit: Acute Hypoxemic Respiratory Failure d/t Pneumonia Admit Date/Time: 11/16/22 10:26 Admit Provider: Darrick Monroe Attending Provider: Darrick Monroe Primary Care Provider: [facility] Hospital Course Hospital Course: This is a 72 yr old male with history of CAD s/p CABG, Afib not on anticoagulation due to history of GI bleeding, R-sided CHF, pulmonary hypertension, COPD, pulmonary fibrosis, with recent admission to [facility] 10/22-10/26/22 for acute hypoxic respiratory failure secondary to pneumonia and CHF (last echo 07/20/22 normal LV size/fxn, LVEF 60%, dilated RV w/ RVSP 53, mod. severe TR), who returned to [facility] ED by ambulance for shortness of breath.? His work-up in the emergency department was concerning for a possible aspiration pneumonitis. He was placed on Zosyn and IV diuretics as he did have an elevated proBNP at 4800. Serial troponins remained negative. He responded to treatment while being monitored on the medical surgical unit under hospitalist services. He was evaluated by physical therapy with recommendations to discharge to a skilled level facility versus home with home health services. The patient declined any referrals be sent and is adamant about returning home. Medically he is stable oxygenating well on room air, he has been eating and drinking. He did have a Biggs catheter in place for accurate I&O while being diuresed this was removed prior to discharge. He is stable and ready for discharge to home with resumption of home health services to include nursing, physical and occupational therapy, and medical driver as his outpatient team is voicing concerns of home safety. He should follow-up with his outpatient team to work on long-term care planning and safer living arrangement as they have identified. He will be discharged on a prednisone burst and Augmentin for 3 more days to complete a 7-day course. Discharge is discussed with Dr. Monroe Home Meds and New Rx's Prescriptions: New amoxicillin-pot clavulanate 875-125 mg tablet 1 tab PO BID Qty: 7 0RF prednisone 20 mg tablet 40 mg PO DAILY Qty: 8 0RF Continued Boost Breeze Nutritional 0.04-1.05 gram-kcal/mL liquid 50 ml PO BID Nicotrol 10 mg cartridge 1 inh inhalation 4-6XD PRN guaifenesin [Robafen] 100 mg/5 mL liquid 200 mg PO Q4H PRN aspirin 81 mg capsule 162 mg PO DAILY polyethylene glycol 3350 17 gram powder in packet 17 g PO DAILY sennosides [Senokot] 8.6 mg tablet 17.2 mg PO HS albuterol sulfate 90 mcg/actuation HFA aerosol inhaler 2 puff inhalation Q4H PRN loperamide 2 mg capsule 4 mg PO .COMPLEX PRN Rx Instructions: 4 mg orally after first loose stool, then 1 capsule after subsequent loose stools. Maximum daily dose is 16mg PRN; gabapentin 300 mg capsule 300 mg PO TID Patient Comments: Take 1 capsule by mouth three times a day One Daily Multi-Vit w-Mineral 4.5 mg iron tablet 1 tab PO DAILY cholecalciferol (vitamin D3) 50 mcg (2,000 unit) tablet 50 mcg PO DAILY tamsulosin 0.4 mg capsule 0.4 mg PO HS Stiolto Respimat 2.5-2.5 mcg/actuation mist 2 puff INHALATION DAILY atorvastatin 10 mg tablet 10 mg PO HS acetaminophen 500 mg Tablet 1,000 mg PO TID Qty: 0 0RF digoxin 125 mcg (0.125 mg) Tablet 0.125 mg PO DAILY Qty: 0 0RF ferrous gluconate 324 mg (38 mg iron) Tablet 324 mg PO BID@1000,2200 Qty: 0 0RF metoprolol succinate 25 mg Tablet Extended Release 24 Hr 25 mg PO DAILY Qty: 0 0RF Rx Instructions: hold for SBP<100 or HR<60 mirtazapine 7.5 mg tablet 7.5 mg PO HS Qty: 0 0RF Patient Comments: Take 1 tablet by mouth at bedtime pantoprazole 40 mg tablet,delayed release (DR/EC) 40 mg PO BID furosemide [Lasix] 20 mg tablet 20 mg PO DAILY Qty: 7 0RF Discontinued cefpodoxime 200 mg tablet 200 mg PO BID Qty: 10 0RF Rx Instructions: must administer with a meal/food First dose with dinner today, 10/26/22. Discharge Instructions Instructions: Aspiration Pneumonia (DC) Stand Alone Forms: Nursing Discharge Form Referrals: Silvina Perdue MD [Primary Care Provider] - 11/22/22 10:00 am Activity:: Activity as Tolerated Equipment/Supplies:: No Equipment Needed Diet:: As Tolerated Discharge Orders Discharge Orders: Discharge Order (Routine); Ordered 11/19/22 Ordered By: Kassandra Esparza Discharge Data Discharge Date/Time-TO BE ENTERED AT DEPARTURE: 11/19/22 16:41 DS: Summary Time Spent with Patient providing and/or coordinating discharge services: Greater than 30 minutes Status at Discharge Functional status at discharge: uses cane/walker Overall status at discharge: patient is progressing back to baseline Mental Status: mental status grossly normal Speech and Movement: speech and movement normal Mood: congruent mood Affect: normal affect Exam Const General: cooperative, no acute distress and frail appearing Nutritional Appearance: thin Orientation: alert, awake, oriented to person, oriented to place and confused (at times, easily redirected) HENMT Head: normal to inspection and atraumatic Mouth: oral mucosae normal Chest Chest: normal inspection of the chest Resp Effort & Inspection: normal respiratory effort Auscultation: diminished lung sounds Cardio Rhythm: abnormal rhythm (controlled to overcontrolled afib) GI Inspection: normal to inspection Skin General skin exam: no rashes or lesions noted Extrem General: normal to inspection, full ROM and no pedal edema Psych Mental Status: mental status grossly normal Speech and Movement: speech and movement normal Mood: congruent mood Affect: normal affect DS: Data Vitals/I&O Vitals and I&O: Vital Signs Temperature 36.2 C L 11/19/22 10:59 Temperature Source Tympanic 11/19/22 10:59 Pulse 56 L 11/19/22 10:59 Pulse Rhythm Regular 11/18/22 22:43 Pulse 68 11/16/22 16:50 Respiratory Rate 16 11/19/22 10:59 Respiratory Effort Normal, Non-Labored 11/18/22 22:43 Respiratory Depth Normal 11/18/22 22:43 Respiratory Pattern Normal 11/18/22 22:43 Blood Pressure 111/71 11/19/22 10:59 Blood Pressure Mean 64 11/16/22 16:30 Blood Pressure Position Sitting 11/16/22 05:59 Pulse Oximetry 95 11/19/22 10:59 Oxygen Delivery Method Room Air 11/19/22 07:26 Oxygen Flow Rate 0 11/19/22 07:26 Pain Level 0 11/19/22 10:59 Comment rn notified 11/18/22 03:57 Intake & Output 11/18/22 11/19/22 11/19/22 23:59 11:59 23:59 Intake Total 630 / 1570 Output Total 900 / 1900 850 / 850 Balance -270 / -330 -850 / -850 Weight 119 kg Intake: IV 150 / 850 Oral 480 / 720 Output: Urine 900 / 1900 850 / 850 Other: Urine Color Yellow Straw Urine Appearance Clear Clear Data Completed and Pending Labs on day of discharge: Labs from last 24 hours 11/19/22 11/19/22 11/19/22 05:53 05:53 05:53 WBC 8.40 RBC 3.98 L Hgb 12.2 L Hct 37.4 L MCV 94 MCH 30.7 MCHC 32.6 RDW 16.3 H Plt Count 188 MPV 10.5 Immature Gran % 0.5 Neutrophils % 85.3 Lymphocytes % 8.3 Monocytes % 5.8 Eosinophils % 0.0 Basophils % 0.1 Nucleated RBC % 0.0 Absolute Neutrophils 7.16 H Absolute Lymphocytes 0.70 L Absolute Monocytes 0.49 Absolute Eosinophils 0.00 Absolute Basophils 0.01 Sodium 142 Potassium 4.2 D Chloride 106 Carbon Dioxide 25.8 Anion Gap 10.2 BUN 49 H Creatinine 1.1 Est GFR (CKD-EPI 2020) 71.32 Glucose 107 H Calcium 9.0 C-Reactive Protein 0.11 Procalcitonin < 0.1 Ur Strep pneumoniae Ag 11/16/22 08:48 WBC RBC Hgb Hct MCV MCH MCHC RDW Plt Count MPV Immature Gran % Neutrophils % Lymphocytes % Monocytes % Eosinophils % Basophils % Nucleated RBC % Absolute Neutrophils Absolute Lymphocytes Absolute Monocytes Absolute Eosinophils Absolute Basophils Sodium Potassium Chloride Carbon Dioxide Anion Gap BUN Creatinine Est GFR (CKD-EPI 2020) Glucose Calcium C-Reactive Protein Procalcitonin Ur Strep pneumoniae Ag Negative 11/19/22 08:00 Sputum Sputum Culture - Pending Preliminary micro results at discharge 11/16/22 08:50 Blood Culture - Preliminary Blood NO GROWTH 72 HOURS 11/19/22 08:00 Sputum Culture - Pending Sputum 11/16/22 17:20 Blood Culture - Preliminary Blood NO GROWTH 48 HOURS [facility] All Active Problems (Updated 11/16/22 @ 20:32 by Darrick Monroe MD) Discharge planning issues (Acute) DVT prophylaxis (Acute) Aspiration pneumonia (Acute) Shortness of breath (Acute) Lung mass (Acute) Elevated troponin (Acute) Hypotension (Acute) DNR (do not resuscitate) (Acute) DNR, but would like trial of intubation. See 09/26 Note Acute bronchitis (Acute) Left foot pain (Acute) Palliative care patient (Acute) Underweight (Acute) Diastolic heart failure (Chronic) Closed intertrochanteric fracture of left femur (Acute) s/p IMN fixation (08/28/22) Fall (Acute) Blunt head trauma (Acute) Contusion of elbow, left (Acute) Contusion of left leg (Acute) Closed fracture of left hip (Acute) Mild cognitive impairment (Acute) Advanced care planning/counseling discussion (Acute) Literacy level of illiterate (Acute) Palliative care encounter (Acute) Acute on chronic right-sided congestive heart failure (Acute) Pneumonia (Acute) Hypoxia (Acute) Depression (Chronic) Dental abscess (Acute) 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) Abnormal chest CT (Acute) Full code status (Acute) 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) CAP (community acquired pneumonia) (Acute) Generalized weakness (Acute) Skin tear of left elbow without complication (Acute) Chronic obstructive lung disease (Chronic) Tricuspid regurgitation (Chronic) CAD (coronary artery disease) (Chronic) Hypertension (Chronic) Medical History Abdominal pain Abnormal radiologic findings on diagnostic imaging of renal pelvis, ureter, or bladder Acute on chronic anemia Acute on chronic diastolic (congestive) heart failure Acute on chronic systolic CHF (congestive heart failure) [place] [facility] [place]...EGD 04/2021 with friable mucosa. SDOne at that time because of GI blooed Afib Alcohol abuse Alcohol abuse, continuous drinking behavior Anemia Bilateral lower extremity edema CAD (coronary artery disease) of artery bypass graft Cerumen impaction CHF, acute on chronic Closed intertrochanteric fracture Confusion state COVID-19 COVID-19 Diabetes mellitus Difficulty reading Edema Encounter for colorectal cancer screening Epididymitis, right (08/02/16) Essential hypertension Failure to thrive Fall GERD (gastroesophageal reflux disease) GI bleed GI bleeding H/O malignant neoplasm of stomach Heart failure, left, with LVEF 41-49% History of fracture of left hip S/P IM NAIL DOS: 08/28/22 History of GI bleed Hoarseness Hydrocele, right (01/23/16) Hyperlipidemia Hypophosphatemia Kyphoscoliosis Low back pain Malnutrition Mild bibasilar atelectasis Pancreatitis Poor hygiene Prediabetes Protein malnutrition Pulmonary hypertension Recent weight loss Rib fractures Shortness of breath Solitary pulmonary nodule Tinnitus, left Tobacco abuse Weight loss Surgical History cardiac cath Coronary Artery Bypass Gaft (CABG) EGD - IV Sedation Esophagectomy H/O colonoscopy (2007) H/O colonoscopy (04/14/18) dr geller, sigmoid diverticulosis, repeat 10 years History of esophagogastroduodenoscopy (EGD) (09/2017) History of hydrocelectomy History of right inguinal hernia repair repair times two sugrical flap of unhealing wound Family History Mother No problems noted. Father No problems noted. Social History Smoking/Tobacco Use Status: Former Tobacco Use Smoking risk assessment performed?: Yes Alcohol Intake: former Drug use: Never Substance use type: does not use Current gender identity: male What type of physical activity do you participate in: none Do you feel safe at home: Yes Do you feel safe in your relationship?: Yes Time Spent with Patient Time Spent with Patient: 45-69 minutes Time was spent: preparing to see the patient(eg.review tests), obtaining and/or reviewing separately otained hiistory, ordering medications,tests, procedures, referring, communicating with other health resident care aide, indepentently interpreting results, counseling the patient and care coordination
--- NOTE | 2022-11-19 15:48 | PT.INTREAT ---
Date of service: 11/19/22 Time of Service: 13:22 PT Notes Visit Reasons: Acute Hypoxemic Respiratory Failure d/t Pneumonia Inpatient Physical Therapy Treatment Note [facility] Date: [] PRECAUTIONS:[] SUBJECTIVE: [] OBJECTIVE: [] PAIN: [] BED MOBILITY/TRANSFERS Rolling L/R: [] Supine-sit: [] Sit-supine: [] Sit-stand: [] Stand-sit: [] Bed-Chair: [] Chair-bed: [] GAIT Assistive Device: [] Weight bearing: [] Assist: [] Distance: [] Deviation: [] VITALS: [] THEREX: [] STAIRS:[] ASSESSMENT: [] PLAN: [] TREATMENT CODE/TIME: []
--- NOTE | 2022-11-19 15:48 | PT.INTREAT ---
Date of service: 11/18/22 Time of Service: 13:22 PT Notes Visit Reasons: Acute Hypoxemic Respiratory Failure d/t Pneumonia Inpatient Physical Therapy Treatment Note [facility] Date: 11/19/22 PRECAUTIONS: Fall, standard, activity as tolerated SUBJECTIVE: Patient agreeable to therapy OBJECTIVE: PAIN: none reported BED MOBILITY/TRANSFERS Rolling L/R: independent Supine-sit: independent Sit-supine: independent Sit-stand: independent Stand-sit: independent Bed-Chair: standby Chair-bed: standby GAIT Assistive Device: front wheeled walker Weight bearing: full Assist: standby Distance: 325 feet Deviation: shortened stride length STAIRS: Ascended and descended 2 six inch stairs and 3 four inch stairs. ASSESSMENT: Patient tolerates therapy well PLAN: Continue strengthening per plan of care until patient is medically ready for discharge TREATMENT CODE/TIME: 01278 Gait 29 minutes beginning at 13:22
[2022-11-19 16:17] VITALS: PULSE 66
--- NOTE | 2022-11-19 18:29 | PDOC.CMDIS ---
Date of service: 11/19/22 Time of Service: 18:29 LACE Index Scoring Tool Questions: Length of Stay (in days): 3 Was the patient admitted via the E.D.?: Yes Comorbidities: Chronic Pulmonary Disease E.D. Visits: 7 Answers: Total Score: 12 Risk of Readmission: High Risk Care Management Discharge Plan Reason for Hospitalization: Acute on chronic right-sided congestive heart failure, Aspiration pneumonia Discharge Plan: CM received calls from the community; [facility]] reports Palliative, PCP and Home Health recommend residential care though they are aware Ilia is not agreeable; duly noted. Ilia's plan is to discharge home with resumption of [facility] RN/PT/OT services. He will transport via [facility] private vehicle, coordinated by CM. Patient/Family Education Needs: Review of discharge recommendations; PT recommendations for SNF-patient not agreeable, discuss self care needs upon discharge ask me three. Services Needed at Discharge: Home Health Care Services (Resumption)
--- NOTE | 2022-11-20 15:17 | PT.INDS ---
PT Notes Visit Reasons: Acute Hypoxemic Respiratory Failure d/t Pneumonia Physical Therapy Inpatient Discharge Summary Date: 11/20/2022 Date of service: 11/17/2022 through 11/19/2022 This is a clinical summary of care provided for the duration of dates listed above. No charge was made in the completion of this documentation. Referring Doctor:? Darrick Monroe MD PT Orders: PT CONSULT: Exacerbation Chronic cond Precautions: Fall. Standard.? Activity as tolerated. Patient Profile/Admitting Diagnosis:?? Patient presented to the ED on 11/16/2022 due to difficulty with breathing.? Patient is admitted to [facility] for management of aspiration pneumonia, acute on chronic right congestive heart failure, and COPD exacerbation. PMHX: All Active Problems?(Updated 11/16/22 @ 20:32 by Darrick Monroe MD) Discharge planning issues (Acute) DVT prophylaxis (Acute) Aspiration pneumonia (Acute) Shortness of breath (Acute) Lung mass (Acute) Elevated troponin (Acute) Hypotension (Acute) DNR (do not resuscitate) (Acute) DNR, but would like trial of intubation. See 09/26 Note Acute bronchitis (Acute) Left foot pain (Acute) Palliative care patient (Acute) Underweight (Acute) Diastolic heart failure (Chronic) Closed intertrochanteric fracture of left femur (Acute) s/p IMN fixation (08/28/22)Fall (Acute) Blunt head trauma (Acute) Contusion of elbow, left (Acute) Contusion of left leg (Acute) Closed fracture of left hip (Acute) Mild cognitive impairment (Acute) Advanced care planning/counseling discussion (Acute) Literacy level of illiterate (Acute) Palliative care encounter (Acute) Acute on chronic right-sided congestive heart failure (Acute) Pneumonia (Acute) Hypoxia (Acute) Depression (Chronic) Dental abscess (Acute) 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 Abdominal pain Abnormal radiologic findings on diagnostic imaging of renal pelvis, ureter, or bladder Acute on chronic anemia Acute on chronic diastolic (congestive) heart failure Acute on chronic systolic CHF (congestive heart failure) [place] [facility] [place]...EGD 04/2021 with friable mucosa. SDOne at that time because of GI blooed Afib Alcohol abuse Alcohol abuse, continuous drinking behavior Anemia Bilateral lower extremity edema CAD (coronary artery disease) of artery bypass graft Cerumen impaction CHF, acute on chronic Closed intertrochanteric fracture Confusion state COVID-19 Diabetes mellitus Difficulty reading Edema Encounter for colorectal cancer screening Epididymitis, right (08/02/16) Essential hypertension Failure to thrive Fall GERD (gastroesophageal reflux disease) GI bleed GI bleeding H/O malignant neoplasm of stomach Heart failure, left, with LVEF 41-49% History of fracture of left hip S/P IM NAIL DOS: 08/28/22History of GI bleed Hoarseness Hydrocele, right (01/23/16) Hyperlipidemia Hypophosphatemia Kyphoscoliosis Low back pain Malnutrition Mild bibasilar atelectasis Pancreatitis Poor hygiene Prediabetes Protein malnutrition Pulmonary hypertension Recent weight loss Rib fractures Shortness of breath Solitary pulmonary nodule Tinnitus, left Tobacco abuse Weight loss Surgical History? cardiac cath Coronary Artery Bypass Gaft (CABG) EGD - IV Sedation Esophagectomy H/O colonoscopy (2007) H/O colonoscopy (04/14/18) dr geller, sigmoid diverticulosis, repeat 10 years History of esophagogastroduodenoscopy (EGD) (09/2017) History of hydrocelectomy History of right inguinal hernia repair repair times twosugrical flap of unhealing wound Social History/Home Situation:? Lives in an apartment.? Friend Lyudmila helps out with? grocery shopping.? Able to heat up meals on wheels.? States that he walks with FWW indoors. Reports that he lives with his significant other, Lyudmila, and that they do not receive any services. Equipment Owned/DME: FWW x 2 Subjective:? NT. See most recent [employer] notes. Objective:? General Observation: NT. See most recent [employer] notes. Mental Status: NT. See most recent [employer] notes. Pain: NT. See most recent [employer] notes. ROM: Right Upper Extremity: ? Shoulder Flexion WFL. Shoulder abduction WFL. Elbow flexion WFL. Wrist flexion WFL. Functional opening and closing of hand WFL. Left Upper Extremity:? Shoulder Flexion WFL. Shoulder abduction WFL. Elbow flexion WFL. Wrist flexion WFL. Functional opening and closing of hand WFL. Right Lower Extremity: Hip flexion WFL. Hip abduction WFL. Knee flexion WFL. Ankle dorsiflexion WFL. Ankle plantarflexion WFL. Left Lower Extremity: Hip flexion WFL. Hip abduction WFL. Knee flexion WFL. Ankle dorsiflexion WFL. Ankle plantarflexion WFL. Strength: Right Upper Extremity: Shoulder flexors 3-/5. Shoulder abductors 3-/5. Elbow flexors 4-/5. Elbow extensors 4-/5. [employer] Supervisor strong. Left Upper Extremity: Shoulder flexors 3-/5. Shoulder abductors 3-/5. Elbow flexors 4-/5. Elbow extensors 4-/5. Park Worker Supervisor strong. Right Lower Extremity: Hip flexors 3-/5.? Hip flexors left 3-/5. Hip abductors 4-/5. Knee flexors 4-/5. Knee extensors 3-/5. Ankle dorsiflexors 3-/5. Ankle plantarflexors 4-/5. Left Lower Extremity: Hip flexors 3-/5.? Hip flexors left 3-/5. Hip abductors 4-/5. Knee flexors 4-/5. Knee extensors 3-/5. Ankle dorsiflexors 3-/5. Ankle plantarflexors 4-/5. Bed Mobility/Transfers: sit-stand: minimal assist,? cues for hand placement stand-sit: minimal assist,? cues for hand placement sit-supine: stand by assist,? HOB at 30 degrees Gait:? 30 feet +30 feet with minimal assist,? using FWW.? Glenys slowed.? Oxygen saturation down to 88% on RA with resaturation back up to 90 with seated rest. Balance:? Static Sitting: Normal Dynamic Sitting: Good Static Standing: fair Dynamic Standing: fair Assessment:?? Patient presented to the ED on 11/16/2022 due to difficulty with breathing.? Patient is admitted to [facility] for management of aspiration pneumonia, acute on chronic right congestive heart failure, and COPD exacerbation. He demonstrates the following impairment level findings: 1. decreased LE strength 2. decreased activity tolerance 3. decreased safety and independence with transfers, requiring cues and assistance for technique and equipment management 4.? impaired balance 5.? shortness of breath Impairments are contributing to the following functional limitations: 1. unable to tolerate household distance ambulation 2. increased fall risk due to? decreased safety and independence with transfers, requiring cues and assistance for technique and equipment management Goals: Goals X1 week 1. Supine-Sit : supervision NOT MET 2. Sit-Supine : supervision NOT MET 3. Sit-Stand : supervision NOT MET 4. Stand-Sit : supervision NOT MET 5. Bed-Chair : supervision with FWW NOT MET 6. Chair-Bed : supervision with FWW NOT MET 7. Gait : 20' with FWW, CGA NOT MET DISCHARGE RECOMMENDATIONS: SNF vs. PT based on progress towards goals TREATMENT CODE/TIME: NC Thank you for the opportunity to participate in the care of this patient. Savanna Banks PT, DPT, CLT [facility] [place], [place]
== END 2022-11-19 16:41 | disposition home health service (06) | DRG 177 ==
LOC: ER 12:16 → MS 16:56
PROVIDERS: Emergency Medicine; Admitting Provider Internal Medicine; Emergency Provider Emergency Medicine; PCP Family Medicine; Visit Provider Internal Medicine
DX: J69.0 Pneumonitis due to inhalation of food and vomit (principal); I50.33 Acute on chronic diastolic (congestive) heart failure; J96.01 Acute respiratory failure with hypoxia; Z68.1 Body mass index [BMI] 19.9 or less, adult; E46 Unspecified protein-calorie malnutrition; I50.813 Acute on chronic right heart failure; I48.91 Unspecified atrial fibrillation; J44.9 Chronic obstructive pulmonary disease, unspecified; I25.10 Atherosclerotic heart disease of native coronary artery without angina pectoris; Z95.1 Presence of aortocoronary bypass graft; I27.20 Pulmonary hypertension, unspecified; J84.10 Pulmonary fibrosis, unspecified; I07.1 Rheumatic tricuspid insufficiency; I25.2 Old myocardial infarction; Z85.01 Personal history of malignant neoplasm of esophagus; F10.10 Alcohol abuse, uncomplicated; D64.9 Anemia, unspecified; E11.9 Type 2 diabetes mellitus without complications; Z55.0 Illiteracy and low-level literacy; I11.0 Hypertensive heart disease with heart failure; K21.9 Gastro-esophageal reflux disease without esophagitis; E78.5 Hyperlipidemia, unspecified; M41.9 Scoliosis, unspecified; R91.1 Solitary pulmonary nodule; Z87.891 Personal history of nicotine dependence
CPT/HCPCS: 36410; 36415; 71275; 80048; 80053; 82805; 84145; 87040; 87449; 87637; 92610; 92611; 93005; 93308; 94640; 97110; 97116; 97162; J1650; 36600; 71045; 74221; 80162; 81003; 81015; 83735; 83880; 84484; 85025; 86140; 87070; 87086; 87205; 87899; 93010; 94664; 94667; 94668; 94760; 99223; 99232; 99239; J1941; J2543; J2930; J3490; J7620

== ENCOUNTER 2022-12-04 20:59 | Inpatient (IN) | payer MEDICARE, MEDICAID, SELFPAY ==
[2022-12-04] VITALS (22 sets, daily range): BP systolic 102–135; BP diastolic 47–73; PULSE 55–93; RESP 17–35; TEMP 37.1; O2SAT 81–100
--- NOTE | 2022-12-04 20:45 | RT.EKG_ITS ---
APPROVED REPORT Exam: Resting ECG Reason for Exam: short of breath Patient Location: E HR:63 bpm ECG Measurements Heart Rate 63 AXIS FL [id number] P [id number] QRSd 78 QRS 96 QT 350 T 7 QTc 358 Conclusion Atrial fibrillation...V-rate 52- 75, irreg A-activity Right axis deviation...QRS axis ( 91,269) Low voltage, extremity leads...all extremity leads <0.5mV afib, bradycardia
--- NOTE | 2022-12-04 21:00 | DI.RAD_ITS ---
Exam(s) XR CHEST 2V PA LATERAL EXAM: XR CHEST 2V PA LATERAL CLINICAL HISTORY: chf copd, sob TECHNIQUE: 2D digital imaging was performed of the chest. Three images were obtained. PA and later al views were obtained. COMPARISON: CR,XR XR PORTABLE CHEST AP from 11/16/2022 FINDINGS: MEDIASTINUM: Normal. HEART: Mild cardiomegaly. PULMONARY VASCULATURE: Normal. LUNGS: There is underlying COPD. There opacity seen in the left mid and left lower lung zones. In a ddition increased lung markings are seen in the right lung base medially. These appear unchanged. PLEURAL SPACE: No pleural effusion or pneumothorax. BONE:Within normal limits for the patient's age. Sternal wires are in place. OTHER FINDINGS:Normal. IMPRESSION: Persistent stable opacities in the right and left lung as described above. The findings may represen t multifocal pneumonia. DATA REPOSITORY: RADIATION DOSE DELIVERED:
--- NOTE | 2022-12-04 21:18 | W.ED.GENAD ---
Discharge Plan Disposition Patient Disposition: Admit to [facility] Condition: Stable Discharge Details Chief Complaint: SOB Clinical Impression: COPD exacerbation Primary Care Provider: Silvina Perdue ED Provider: Mio Hu Home Meds and New Rx's Prescriptions: No Action Boost Breeze Nutritional 0.04-1.05 gram-kcal/mL liquid 50 ml PO BID Nicotrol 10 mg cartridge 1 inh inhalation 4-6XD PRN guaifenesin [Robafen] 100 mg/5 mL liquid 200 mg PO Q4H PRN aspirin 81 mg capsule 162 mg PO DAILY polyethylene glycol 3350 17 gram powder in packet 17 g PO DAILY sennosides [Senokot] 8.6 mg tablet 17.2 mg PO HS albuterol sulfate 90 mcg/actuation HFA aerosol inhaler 2 puff inhalation Q4H PRN loperamide 2 mg capsule 4 mg PO .COMPLEX PRN Rx Instructions: 4 mg orally after first loose stool, then 1 capsule after subsequent loose stools. Maximum daily dose is 16mg PRN; gabapentin 300 mg capsule 300 mg PO TID Patient Comments: Take 1 capsule by mouth three times a day amoxicillin-pot clavulanate 875-125 mg tablet 1 tab PO BID Qty: 7 0RF prednisone 20 mg tablet 40 mg PO DAILY Qty: 8 0RF ascorbic acid (vitamin C) [Vitamin C] 500 mg tablet 500 mg PO 1XD Patient Comments: Take 1 tablet by mouth every other day take with iron pantoprazole 40 mg tablet,delayed release (DR/EC) 40 mg PO 1XD Patient Comments: Take 1 tablet by mouth once a day One Daily Multi-Vit w-Mineral 4.5 mg iron tablet 1 tab PO DAILY cholecalciferol (vitamin D3) 50 mcg (2,000 unit) tablet 50 mcg PO DAILY tamsulosin 0.4 mg capsule 0.4 mg PO HS Stiolto Respimat 2.5-2.5 mcg/actuation mist 2 puff INHALATION DAILY atorvastatin 10 mg tablet 10 mg PO HS acetaminophen 500 mg Tablet 1,000 mg PO TID Qty: 0 0RF digoxin 125 mcg (0.125 mg) Tablet 0.125 mg PO DAILY Qty: 0 0RF ferrous gluconate 324 mg (38 mg iron) Tablet 324 mg PO BID@1000,2200 Qty: 0 0RF metoprolol succinate 25 mg Tablet Extended Release 24 Hr 25 mg PO DAILY Qty: 0 0RF Rx Instructions: hold for SBP<100 or HR<60 mirtazapine 7.5 mg tablet 7.5 mg PO HS Qty: 0 0RF Patient Comments: Take 1 tablet by mouth at bedtime pantoprazole 40 mg tablet,delayed release (DR/EC) 40 mg PO BID furosemide [Lasix] 20 mg tablet 20 mg PO DAILY Qty: 7 0RF Medical Decision Making 72-year-old male history of COPD CHF presents with shortness of breath, noted be hypoxic to the 60s on room air, no home oxygen use, placed on nasal cannula with improvement to the 90s, speaking full sentences lungs quiet bilaterally, hemodynamically stable afebrile nontoxic. Likely COPD exacerbation. No peripheral edema skin appears slightly dry. Will obtain basic labs chest x-ray nebs steroids close reassessment. Disposition pending response and weaning off of oxygen. If still hypoxic will need admission 23: 25 likely COPD exacerbation, given x-ray read will start empiric antibiotics. Patient feeling better after nebs and steroids however still saturating in the 70s off of oxygen. Now currently on 4 L nasal cannula in the mid 90s HPI General Date/Time Provider Initiated Documentation: 12/04/22 21:10. HPI Narrative: 72-year-old male history of COPD CHF brought in for shortness of breath, noted to be hypoxic in the 60s on room air, placed on nasal cannula now saturating in the 90s. Related Data Home Medications Medication Instructions Recorded Confirmed gabapentin 300 mg capsule 300 mg PO TID 07/19/22 12/04/22 atorvastatin 10 mg tablet 10 mg PO HS 08/28/22 12/04/22 cholecalciferol (vitamin D3) 50 50 mcg PO DAILY 08/28/22 12/04/22 mcg (2,000 unit) tablet multivitamin with minerals-ferrous 1 tab PO DAILY 08/28/22 11/24/22 sulfate 4.5 mg iron tablet (One Daily Multivitamins with Minerals) tamsulosin 0.4 mg capsule 0.4 mg PO HS 08/28/22 11/24/22 tiotropium 2.5 mcg-olodaterol 2.5 2 puff inhalation DAILY 08/28/22 12/04/22 mcg/actuation mist for inhalation (Stiolto Respimat) acetaminophen 500 mg tablet 1,000 mg PO TID #0 tabs 09/06/22 11/24/22 digoxin 125 mcg (0.125 mg) tablet 0.125 mg PO DAILY #0 tabs 09/06/22 12/04/22 ferrous gluconate 324 mg (38 mg 324 mg PO BID@1000,2200 #0 tabs 09/06/22 12/04/22 iron) tablet metoprolol succinate 25 mg 25 mg PO DAILY #0 tabs 09/06/22 12/04/22 tablet,extended release 24 hr mirtazapine 7.5 mg tablet 7.5 mg PO HS #0 tabs 09/06/22 12/04/22 food supplemt, lactose-reduced 50 ml PO BID 09/22/22 12/04/22 0.04 gram-1.05 kcal/mL oral liquid (Boost Breeze Nutritional) guaifenesin 100 mg/5 mL oral 200 mg PO Q4H PRN 09/22/22 11/24/22 liquid (Robafen) nicotine 10 mg inhalation 1 inh inhalation 4-6XD PRN 09/22/22 11/24/22 cartridge (Nicotrol) albuterol sulfate 90 mcg/actuation 2 puff inhalation Q4H PRN 10/05/22 12/04/22 aerosol inhaler aspirin 81 mg capsule 162 mg PO DAILY 10/05/22 12/04/22 loperamide 2 mg capsule 4 mg PO .COMPLEX PRN 10/05/22 12/04/22 pantoprazole 40 mg tablet,delayed 40 mg PO BID 10/05/22 12/04/22 release polyethylene glycol 3350 17 gram 17 g PO DAILY 10/05/22 12/04/22 oral powder packet sennosides 8.6 mg tablet (Senokot) 17.2 mg PO HS 10/05/22 12/04/22 furosemide 20 mg tablet (Lasix) 20 mg PO DAILY #7 tabs 10/26/22 12/04/22 amoxicillin 875 mg-potassium 1 tab PO BID #7 tabs 11/19/22 11/24/22 clavulanate 125 mg tablet prednisone 20 mg tablet 40 mg PO DAILY #8 tabs 11/19/22 11/24/22 ascorbic acid (vitamin C) 500 mg 500 mg PO 1XD 12/04/22 12/04/22 tablet (Vitamin C) pantoprazole 40 mg tablet,delayed 40 mg PO 1XD 12/04/22 12/04/22 release Previous Rx's Medication Instructions Recorded acetaminophen 500 mg tablet 1,000 mg PO TID #0 tabs 09/06/22 digoxin 125 mcg (0.125 mg) tablet 0.125 mg PO DAILY #0 tabs 09/06/22 ferrous gluconate 324 mg (38 mg 324 mg PO BID@1000,2200 #0 tabs 09/06/22 iron) tablet metoprolol succinate 25 mg 25 mg PO DAILY #0 tabs 09/06/22 tablet,extended release 24 hr mirtazapine 7.5 mg tablet 7.5 mg PO HS #0 tabs 09/06/22 furosemide 20 mg tablet (Lasix) 20 mg PO DAILY #7 tabs 10/26/22 amoxicillin 875 mg-potassium 1 tab PO BID #7 tabs 11/19/22 clavulanate 125 mg tablet prednisone 20 mg tablet 40 mg PO DAILY #8 tabs 11/19/22 Allergies Allergy/AdvReac Type Severity Reaction Status Date / Time No Known Allergies Allergy Verified 12/04/22 21:11 General Stated Complaint: SOB ANAMIKA: 3 Review of Systems Narrative: Review of Systems Constitutional: negative Eyes: negative ENT: negative Cardiovascular: negative Respiratory: Shortness of breath Gastrointestinal: negative : negative Musculoskeletal: negative Skin: negative Neurologic: negative Psych: negative PFSH All Active Problems (Updated 12/04/22 @ 23:26 by Mio Hu MD) COPD exacerbation (Acute) Shortness of breath (Acute) Lung mass (Acute) Elevated troponin (Acute) Hypotension (Acute) DNR (do not resuscitate) (Acute) DNR, but would like trial of intubation. See 09/26 Note Acute bronchitis (Acute) Left foot pain (Acute) Palliative care patient (Acute) Underweight (Acute) Diastolic heart failure (Chronic) Closed intertrochanteric fracture of left femur (Acute) s/p IMN fixation (08/28/22) Fall (Acute) Blunt head trauma (Acute) Contusion of elbow, left (Acute) Contusion of left leg (Acute) Closed fracture of left hip (Acute) Mild cognitive impairment (Acute) Advanced care planning/counseling discussion (Acute) Literacy level of illiterate (Acute) Palliative care encounter (Acute) Acute on chronic right-sided congestive heart failure (Acute) Pneumonia (Acute) Hypoxia (Acute) Depression (Chronic) Dental abscess (Acute) 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) Abnormal chest CT (Acute) Full code status (Acute) 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) CAP (community acquired pneumonia) (Acute) Generalized weakness (Acute) Skin tear of left elbow without complication (Acute) Chronic obstructive lung disease (Chronic) Tricuspid regurgitation (Chronic) CAD (coronary artery disease) (Chronic) Hypertension (Chronic) Medical History (Updated 12/04/22 @ 23:26 by Mio Hu MD) Abdominal pain Abnormal radiologic findings on diagnostic imaging of renal pelvis, ureter, or bladder Acute on chronic anemia Acute on chronic diastolic (congestive) heart failure Acute on chronic systolic CHF (congestive heart failure) Adenocarcinoma of esophagus From [facility] [place]:Hx GI Cancer...EGD 04/2021 with friable mucosa. SDOne at that time because of GI blooed Afib Alcohol abuse Alcohol abuse, continuous drinking behavior Anemia Aspiration pneumonia Bilateral lower extremity edema CAD (coronary artery disease) of artery bypass graft Cerumen impaction CHF, acute on chronic Closed intertrochanteric fracture Confusion state COVID-19 COVID-19 Diabetes mellitus Difficulty reading Edema Encounter for colorectal cancer screening Epididymitis, right (08/02/16) Essential hypertension Failure to thrive Fall GERD (gastroesophageal reflux disease) GI bleed GI bleeding H/O malignant neoplasm of stomach Heart failure, left, with LVEF 41-49% History of fracture of left hip S/P IM NAIL DOS: 08/28/22 History of GI bleed Hoarseness Hydrocele, right (01/23/16) Hyperlipidemia Hypophosphatemia Kyphoscoliosis Low back pain Malnutrition Mild bibasilar atelectasis Pancreatitis Poor hygiene Prediabetes Protein malnutrition Pulmonary hypertension Recent weight loss Rib fractures Shortness of breath Solitary pulmonary nodule Tinnitus, left Tobacco abuse Weight loss Surgical History cardiac cath Coronary Artery Bypass Gaft (CABG) EGD - IV Sedation Esophagectomy H/O colonoscopy (2007) H/O colonoscopy (04/14/18) dr geller, sigmoid diverticulosis, repeat 10 years History of esophagogastroduodenoscopy (EGD) (09/2017) History of hydrocelectomy History of right inguinal hernia repair repair times two sugrical flap of unhealing wound Family History Mother No problems noted. Father No problems noted. Social History Smoking/Tobacco Use Status: Former Tobacco Use Smoking risk assessment performed?: Yes Alcohol Intake: former Drug use: Never Substance use type: does not use Current gender identity: male What type of physical activity do you participate in: none Do you feel safe at home: Yes Do you feel safe in your relationship?: Yes Exam Narrative Exam Narrative: Physical Examination General: alert, awake, cooperative, resting comfortably, no acute distress HEENT: normocephalic, atraumatic; PERRL, EOM intact, conjunctiva normal; no nasal discharge; moist mucous membranes, oral and pharyngeal mucosa normal, tolerating secretions Neck: supple, trachea midline; full ROM Chest: normal to inspection Respiratory: normal respiratory effort, speaking in full sentences, quiet lung echols bilaterally Cardiac: regular rate, regular rhythm, S1S2 intact, no murmurs rubs or gallops GI: abdomen soft, non-tender, non-distended; no palpable mass or hepatosplenomegaly Skin: no lesions, rashes or trauma appreciated; dry Neuro: AAOx3, normal speech, moving all extremities Extremities: No appreciable edema Psych: Appropriate mood and affect Course Vital Signs Vital signs: Vital Signs Temperature 37.1 C 12/04/22 21:00 Pulse 79 12/04/22 21:00 Respiratory Rate 22 12/04/22 21:00 Blood Pressure 135/65 12/04/22 21:00 Pulse Oximetry 91 L 12/04/22 21:00 Temperature 37.1 C 12/04/22 21:00 Temperature Source Skin 12/04/22 21:00 Pulse 79 12/04/22 21:00 Respiratory Rate 22 12/04/22 21:00 Blood Pressure 135/65 12/04/22 21:00 Blood Pressure Position Sitting 12/04/22 21:00 Pulse Oximetry 91 L 12/04/22 21:00 Oxygen Delivery Method Nasal Cannula 12/04/22 21:00 Oxygen Flow Rate 4 12/04/22 21:00
[2022-12-04] MEDS: Albuterol/Ipratropium 3 ML UPD VIAL 9 ML UPD (21:26)
[2022-12-04] MEDS: Dexamethasone 10 MG/ML VIAL IVP (21:26)
[2022-12-04 21:52] LABS: Abs Immature Grans 0.04 10^3/uL (0.0-0.06); Absolute Basophil Count 0.02 10^3/uL (0.0-0.2); Absolute Eosinophil Count 0.14 10^3/uL (0.0-0.7); Absolute Lymphocyte Count 1.01 10^3/uL (1.2-3.4); Absolute Monocyte Count 0.81 10^3/uL (0.1-0.8); Absolute Neutrophil Count 9.45 10^3/uL (1.2-6.7); Basophils % 0.2; Eosinophils % 1.2; HGB 13.8 g/dL (13.5-17.5); Immature Grans % 0.3; Lymphocytes % 8.8; MCH 29.9 pg (27.0-33.0); MCHC 31.4 % (32.0-36.0); MCV 95 fL (80-95); Monocytes % 7.1; Neutrophils % 82.4; Platelet Count 164 10^3/uL (130-400); RBC 4.61 10^6/uL (4.36-5.78); RDW 15.5 % (11.8-14.1); RDW-SD 54.3 fL; WBC 11.47 10^3/uL (4.4-10.8)
[2022-12-04 22:14] LABS: ALT 19 U/L (16-63); AST 18 U/L (15-37); Albumin 2.9 g/dL (3.4-5.0); Alkaline Phosphatase 146 U/L (46-116); Anion Gap 10.3 mmol/L (3-11); BUN 28 mg/dL (7-18); Bilirubin, Total 0.7 mg/dL (0.2-1.0); CO2 23.7 mmol/L (21.0-32.0); CREATININE 0.9 mg/dL (0.70-1.30); Chloride 106 mmol/L (98-107); Estimated GFR 90.74 (mL/min/1.73m2); Glucose 106 mg/dL (74-106); NT-proBNP 4457 pg/mL (<300); Potassium 3.9 mmol/L (3.5-5.1); Sodium 140 mmol/L (136-145); Total Protein 7.4 g/dL (6.4-8.2)
--- NOTE | 2022-12-04 22:14 | NUR.NOTE ---
Nursing Note: Report to Tiffanie WEIR
[2022-12-04 22:36] LABS: COVID-19 PCR Negative (Negative); Influenza A PCR Negative (Negative); Influenza B PCR Negative (Negative); RSV PCR Negative (Negative)
[2022-12-04 22:38] LABS: Source Nasopharynx
--- NOTE | 2022-12-04 22:59 | DI.VRAD_ITS ---
PROCEDURE INFORMATION: Exam: XR Chest Exam date and time: 12/04/2022 10:28 PM Age: 72 years old Clinical indication: Shortness of breath; Patient HX: Chf, copd, SOB TECHNIQUE: Imaging protocol: Radiologic exam of the chest. Views: 2 views. COMPARISON: CR XR PORTABLE CHEST AP 11/16/2022 6:16 AM FINDINGS: Lungs: Lungs are hyperexpanded, compatible chronic obstructive pulmonary physiologic changes. Patchy ground-glass opacities within the left mid and lower lung zones, as well as the right lower lobe, similar to prior study, likely multifocal pneumonia. Pleural spaces: Unremarkable. No pleural effusion. No pneumothorax. Heart/Mediastinum: Mild cardiomegaly. Vasculature: Atherosclerotic vascular disease. Bones/joints: Changes of prior sternotomy. IMPRESSION: Patchy ground-glass opacities within the left mid and lower lung zones, as well as the right lower lobe, similar to prior study, likely multifocal pneumonia. Dictated and Authenticated by: Sin Armas MD. Ordering:DESIREE Lieberman MD
[2022-12-04] MEDS: cefTRIAXone 1,000 MG in Normal Saline 50 ML 100 MG IVPB (23:44)
[2022-12-05] VITALS (14 sets, daily range): BP systolic 100–137; BP diastolic 58–74; PULSE 0–86; RESP 8–23; TEMP 36.6–37; O2SAT 90–97
--- NOTE | 2022-12-05 00:09 | HPE_ITS ---
Date of service: 12/05/22 Time of Service: 00:09 Assessment and Plan Assessment and plan (1) COPD exacerbation: Status: Acute Assessment and plan: I think this is all or mostly COPD and not CHF (despite BNP), as patient has responded to treatment for former and is not clinically volume overloaded, th ough he may benefit from further diuresis at some point. Unclear of there is a pneumonia in that CXR findings are old, but he may have a predisposition to recurrence (viz, aspiration). For now will continue antibiotics, though I think monotherapy with Rocephin is probably reasonable at this point. COPD/? pneumonia: steroids, updrafts, antibiotics CHF: will hold on additional diuresis for now, continue usual Lasix AF: rate control with digoxin and beta sony, not on anticoagulation due to h/ o GI bleeding Code status: remains DNR History of Present Illness History of Present Illness Chief Complaint: SOB Narrative: 72 male with h/o COPD and CHF -- here with few days of SOB. ER reports RA O2 sat in 60s (although the lowest I see recorded is 81), with diminished BS. Given duoneb and steroids and placed on O2 4L NC, with sats to mid-90s. States he feels better. Findings in ER otherwise of note for absence of fever, white count 11; CXR with patchy bilateral opacities, but similar to prior, negative triple viral swab, and BNP 4357 (similar to baseline). I was asked to evaluate for admission. Patient denies cough, though is noted to be coughing frequently during visit. Denies fever, chills or CP. Review of Systems Narrative: per HPI PFSH All Active Problems COPD exacerbation (Acute) Shortness of breath (Acute) Lung mass (Acute) Elevated troponin (Acute) Hypotension (Acute) DNR (do not resuscitate) (Acute) DNR, but would like trial of intubation. See 09/26 Note Acute bronchitis (Acute) Left foot pain (Acute) Palliative care patient (Acute) Underweight (Acute) Diastolic heart failure (Chronic) Closed intertrochanteric fracture of left femur (Acute) s/p IMN fixation (08/28/22) Fall (Acute) Blunt head trauma (Acute) Contusion of elbow, left (Acute) Contusion of left leg (Acute) Closed fracture of left hip (Acute) Mild cognitive impairment (Acute) Advanced care planning/counseling discussion (Acute) Literacy level of illiterate (Acute) Palliative care encounter (Acute) Acute on chronic right-sided congestive heart failure (Acute) Pneumonia (Acute) Hypoxia (Acute) Depression (Chronic) Dental abscess (Acute) 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) Abnormal chest CT (Acute) Full code status (Acute) 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) CAP (community acquired pneumonia) (Acute) Generalized weakness (Acute) Skin tear of left elbow without complication (Acute) Chronic obstructive lung disease (Chronic) Tricuspid regurgitation (Chronic) CAD (coronary artery disease) (Chronic) Hypertension (Chronic) Medical History Abdominal pain Abnormal radiologic findings on diagnostic imaging of renal pelvis, ureter, or bladder Acute on chronic anemia Acute on chronic diastolic (congestive) heart failure Acute on chronic systolic CHF (congestive heart failure) [place] [facility] [place]...EGD 04/2021 with friable mucosa. SDOne at that time because of GI blooed Afib Alcohol abuse Alcohol abuse, continuous drinking behavior Anemia Aspiration pneumonia Bilateral lower extremity edema CAD (coronary artery disease) of artery bypass graft Cerumen impaction CHF, acute on chronic Closed intertrochanteric fracture Confusion state COVID-19 COVID-19 Diabetes mellitus Difficulty reading Edema Encounter for colorectal cancer screening Epididymitis, right (08/02/16) Essential hypertension Failure to thrive Fall GERD (gastroesophageal reflux disease) GI bleed GI bleeding H/O malignant neoplasm of stomach Heart failure, left, with LVEF 41-49% History of fracture of left hip S/P IM NAIL DOS: 08/28/22 History of GI bleed Hoarseness Hydrocele, right (01/23/16) Hyperlipidemia Hypophosphatemia Kyphoscoliosis Low back pain Malnutrition Mild bibasilar atelectasis Pancreatitis Poor hygiene Prediabetes Protein malnutrition Pulmonary hypertension Recent weight loss Rib fractures Shortness of breath Solitary pulmonary nodule Tinnitus, left Tobacco abuse Weight loss Surgical History cardiac cath Coronary Artery Bypass Gaft (CABG) EGD - IV Sedation Esophagectomy H/O colonoscopy (2007) H/O colonoscopy (04/14/18) dr geller, sigmoid diverticulosis, repeat 10 years History of esophagogastroduodenoscopy (EGD) (09/2017) History of hydrocelectomy History of right inguinal hernia repair repair times two sugrical flap of unhealing wound Family History Mother No problems noted. Father No problems noted. Social History Smoking/Tobacco Use Status: Former Tobacco Use Smoking risk assessment performed?: Yes Alcohol Intake: former Drug use: Never Substance use type: does not use Current gender identity: male What type of physical activity do you participate in: none Do you feel safe at home: Yes Do you feel safe in your relationship?: Yes Meds Allergies and Home Medications Allergies Allergy/AdvReac Type Severity Reaction Status Date / Time No Known Allergies Allergy Verified 12/04/22 21:11 Home Medications Medication Instructions Recorded Confirmed Type gabapentin 300 mg capsule 300 mg PO TID 07/19/22 12/04/22 History atorvastatin 10 mg tablet 10 mg PO HS 08/28/22 12/04/22 History cholecalciferol (vitamin D3) 50 50 mcg PO DAILY 08/28/22 12/04/22 History mcg (2,000 unit) tablet multivitamin with minerals-ferrous 1 tab PO DAILY 08/28/22 11/24/22 History sulfate 4.5 mg iron tablet (One Daily Multivitamins with Minerals) tamsulosin 0.4 mg capsule 0.4 mg PO HS 08/28/22 11/24/22 History tiotropium 2.5 mcg-olodaterol 2.5 2 puff inhalation DAILY 08/28/22 12/04/22 History mcg/actuation mist for inhalation (Stiolto Respimat) acetaminophen 500 mg tablet 1,000 mg PO TID #0 tabs 09/06/22 11/24/22 Rx digoxin 125 mcg (0.125 mg) tablet 0.125 mg PO DAILY #0 tabs 09/06/22 12/04/22 Rx ferrous gluconate 324 mg (38 mg 324 mg PO BID@1000,2200 #0 tabs 09/06/22 12/04/22 Rx iron) tablet metoprolol succinate 25 mg 25 mg PO DAILY #0 tabs 09/06/22 12/04/22 Rx tablet,extended release 24 hr mirtazapine 7.5 mg tablet 7.5 mg PO HS #0 tabs 09/06/22 12/04/22 Rx food supplemt, lactose-reduced 50 ml PO BID 09/22/22 12/04/22 History 0.04 gram-1.05 kcal/mL oral liquid (Boost Breeze Nutritional) guaifenesin 100 mg/5 mL oral 200 mg PO Q4H PRN 09/22/22 11/24/22 History liquid (Robafen) nicotine 10 mg inhalation 1 inh inhalation 4-6XD PRN 09/22/22 11/24/22 History cartridge (Nicotrol) albuterol sulfate 90 mcg/actuation 2 puff inhalation Q4H PRN 10/05/22 12/04/22 History aerosol inhaler aspirin 81 mg capsule 162 mg PO DAILY 10/05/22 12/04/22 History loperamide 2 mg capsule 4 mg PO .COMPLEX PRN 10/05/22 12/04/22 History pantoprazole 40 mg tablet,delayed 40 mg PO BID 10/05/22 12/04/22 History release polyethylene glycol 3350 17 gram 17 g PO DAILY 10/05/22 12/04/22 History oral powder packet sennosides 8.6 mg tablet (Senokot) 17.2 mg PO HS 10/05/22 12/04/22 History furosemide 20 mg tablet (Lasix) 20 mg PO DAILY #7 tabs 10/26/22 12/04/22 Rx amoxicillin 875 mg-potassium 1 tab PO BID #7 tabs 11/19/22 11/24/22 Rx clavulanate 125 mg tablet prednisone 20 mg tablet 40 mg PO DAILY #8 tabs 11/19/22 11/24/22 Rx ascorbic acid (vitamin C) 500 mg 500 mg PO 1XD 12/04/22 12/04/22 History tablet (Vitamin C) pantoprazole 40 mg tablet,delayed 40 mg PO 1XD 12/04/22 12/04/22 History release Exam Narrative Exam Narrative: 102/47, 69, 37.1, 22, 92-93% on 2l during my visit. HEENT atraumatic; neck supple; lungs clear but coarse BS; heart distant, irr/irr; abdomen soft and NT; extremities w/o edema; neuroOx3, moves all 4s Results Labs 12/04/22 21:40 12/04/22 21:40 Labs: Laboratory Results - last 24 hr 12/04/22 12/04/22 12/04/22 21:40 21:40 21:52 WBC 11.47 H RBC 4.61 Hgb 13.8 Hct 44.0 MCV 95 MCH 29.9 MCHC 31.4 L RDW 15.5 H Plt Count 164 MPV 10.0 Immature Gran % 0.3 Neutrophils % 82.4 Lymphocytes % 8.8 Monocytes % 7.1 Eosinophils % 1.2 Basophils % 0.2 Nucleated RBC % 0.0 Absolute Neutrophils 9.45 H Absolute Lymphocytes 1.01 L Absolute Monocytes 0.81 H Absolute Eosinophils 0.14 Absolute Basophils 0.02 Sodium 140 Potassium 3.9 Chloride 106 Carbon Dioxide 23.7 Anion Gap 10.3 BUN 28 H Creatinine 0.9 Est GFR (CKD-EPI 2020) 90.74 Glucose 106 Calcium 9.0 Total Bilirubin 0.7 AST 18 ALT 19 Alkaline Phosphatase 146 H NT-Pro-B Natriuret Pep 4457 H Total Protein 7.4 Albumin 2.9 L COVID-19 Source Nasopharynx SARS-CoV-2 (PCR) Negative Influenza Type A (PCR) Negative Influenza Type B (PCR) Negative RSV (PCR) Negative Last Vital Signs Temp 37.1 C 12/04/22 21:00 Pulse 69 12/04/22 22:16 Resp 22 12/04/22 22:20 BP 102/47 L 12/04/22 22:16 Pulse Ox 92 12/04/22 22:50 Time Spent Time spent with Patient: 40-54 minutes Time was spent: preparing to see the patient(eg.review tests), obtaining and/or reviewing separately otained hiistory, ordering medications,tests, procedures, referring, communicating with other health home care administrator and indepentently interpreting results
[2022-12-05] MEDS: AZITHROMYCIN 500 MG in Normal Saline 250 ML 250 MG IVPB (00:26)
[2022-12-05] MEDS: methylPREDNISolone SUCC 40 MG VIAL IVP ×3 (06:05→21:50)
[2022-12-05] MEDS: Albuterol/Ipratropium 3 ML UPD VIAL UPD ×4 (06:05→21:00)
[2022-12-05] MEDS: Aspirin 81 MG CHEW 162 MG PO (08:02)
[2022-12-05] MEDS: Digoxin 0.125 MG TAB PO (08:02)
[2022-12-05] MEDS: Polyethylene Glycol 3350 17 GM PACKET PO (08:02)
[2022-12-05] MEDS: Pantoprazole 40 MG TABCR PO (08:03)
[2022-12-05] MEDS: Metoprolol CR 25 MG TABCR PO (08:03)
[2022-12-05] MEDS: Furosemide 20 MG TAB PO (08:03)
[2022-12-05] MEDS: Gabapentin 300 MG CAP PO ×3 (08:03→20:29)
--- NOTE | 2022-12-05 09:41 | INITIAL_ITS ---
Date of service: 12/05/22 Time of Service: 09:41 Care Management Initial Assmt Initial Assessment REASON FOR HOSPITALIZATION:: COPD Exacerbation PREVIOUS FUNCTIONAL STATUS/SOCIAL/FAMILY SUPPORTS:: Ilia resides in [facility] with his roommate, Lyudmila. He stated that she lives on one side and she lives on the other and is very helpful with his care. Ilia did have a daughter who fairly recently. He uses a cane and is followed by Palliative in the community for his chronic health issues. Ilia uses [facility] for transportation and has home health nursing and PT services.. CURRENT FUNCTIONAL STATUS:: Ilia was sitting up in bed when CM met with him. He was polite and answered questions but did not volunteer any additional information. Ilia stated that he is feeling much better. He is already on room air and informed the provider that he would like to go home today, or tomorrow at the latest. ADVANCE DIRECTIVES:: On file. Chrissy ALCAZAR Has patient been provided with info about the portal/API?: Yes Did the patient sign up for the portal?: No CODE STATUS:: DNR/DNI INSURANCE COVERAGE / FINANCIAL ISSUES:: Medicare Medicaid CURRENT HOME/COMMUNITY SERVICES/EQUIPMENT:: home health services for RN,PT and OT PRIMARY CARE PHYSICIAN:: Silvina Perdue POTENTIAL DISCHARGE NEEDS:: follow up with PCP and plan of care PATIENT/FAMILY EDUCATION NEEDS:: Review of discharge instructions, limitations, activity, follow up plan, discuss Ask Me Three TRANSPORTATION:: to be determined by disposition PLAN:: Anticipate Ilia will be discharged home with a resumption of services when medically cleared by provider. He will follow up with hisPCP and plan of care and transport with family. CM will support Ilia and his discharge planning needs. PFSH All Active Problems COPD exacerbation (Acute) Shortness of breath (Acute) Lung mass (Acute) Elevated troponin (Acute) Hypotension (Acute) DNR (do not resuscitate) (Acute) DNR, but would like trial of intubation. See 09/26 Note Acute bronchitis (Acute) Left foot pain (Acute) Palliative care patient (Acute) Underweight (Acute) Diastolic heart failure (Chronic) Closed intertrochanteric fracture of left femur (Acute) s/p IMN fixation (08/28/22) Fall (Acute) Blunt head trauma (Acute) Contusion of elbow, left (Acute) Contusion of left leg (Acute) Closed fracture of left hip (Acute) Mild cognitive impairment (Acute) Advanced care planning/counseling discussion (Acute) Literacy level of illiterate (Acute) Palliative care encounter (Acute) Acute on chronic right-sided congestive heart failure (Acute) Pneumonia (Acute) Hypoxia (Acute) Depression (Chronic) Dental abscess (Acute) 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) Abnormal chest CT (Acute) Full code status (Acute) 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) CAP (community acquired pneumonia) (Acute) Generalized weakness (Acute) Skin tear of left elbow without complication (Acute) Chronic obstructive lung disease (Chronic) Tricuspid regurgitation (Chronic) CAD (coronary artery disease) (Chronic) Hypertension (Chronic) Medical History Abdominal pain Abnormal radiologic findings on diagnostic imaging of renal pelvis, ureter, or bladder Acute on chronic anemia Acute on chronic diastolic (congestive) heart failure Acute on chronic systolic CHF (congestive heart failure) Adenocarcinoma of esophagus From [facility] [place]:Hx GI Cancer...EGD 04/2021 with friable mucosa. SDOne at that time because of GI blooed Afib Alcohol abuse Alcohol abuse, continuous drinking behavior Anemia Aspiration pneumonia Bilateral lower extremity edema CAD (coronary artery disease) of artery bypass graft Cerumen impaction CHF, acute on chronic Closed intertrochanteric fracture Confusion state COVID-19 COVID-19 Diabetes mellitus Difficulty reading Edema Encounter for colorectal cancer screening Epididymitis, right (08/02/16) Essential hypertension Failure to thrive Fall GERD (gastroesophageal reflux disease) GI bleed GI bleeding H/O malignant neoplasm of stomach Heart failure, left, with LVEF 41-49% History of fracture of left hip S/P IM NAIL DOS: 08/28/22 History of GI bleed Hoarseness Hydrocele, right (01/23/16) Hyperlipidemia Hypophosphatemia Kyphoscoliosis Low back pain Malnutrition Mild bibasilar atelectasis Pancreatitis Poor hygiene Prediabetes Protein malnutrition Pulmonary hypertension Recent weight loss Rib fractures Shortness of breath Solitary pulmonary nodule Tinnitus, left Tobacco abuse Weight loss Surgical History cardiac cath Coronary Artery Bypass Gaft (CABG) EGD - IV Sedation Esophagectomy H/O colonoscopy (2007) H/O colonoscopy (04/14/18) dr geller, sigmoid diverticulosis, repeat 10 years History of esophagogastroduodenoscopy (EGD) (09/2017) History of hydrocelectomy History of right inguinal hernia repair repair times two sugrical flap of unhealing wound Family History Mother No problems noted. Father No problems noted. Social History Smoking/Tobacco Use Status: Former Tobacco Use Smoking risk assessment performed?: Yes Alcohol Intake: former Drug use: Never Substance use type: does not use Housing: apartment Current gender identity: male What type of physical activity do you participate in: none Do you feel safe at home: Yes Do you feel safe in your relationship?: Yes
[2022-12-05] MEDS: Tiotropium/Olodaterol 10 PUFF INHALER 2 PUFF IH (09:55)
[2022-12-05] MEDS: Ferrous Gluconate 324 MG TAB PO ×2 (10:24→21:49)
[2022-12-05] MEDS: Senna TAB 1 TAB PO (21:49)
[2022-12-05] MEDS: Atorvastatin 10 MG TAB PO (21:49)
[2022-12-05] MEDS: Mirtazapine 15 MG TAB 7.5 MG PO (21:50)
[2022-12-06] MEDS: cefTRIAXone 1 GM/50 ML BAG IVPB (01:00)
[2022-12-06] MEDS: methylPREDNISolone SUCC 40 MG VIAL IVP ×2 (05:48→13:37)
[2022-12-06 06:58] VITALS: BP 148/70; PULSE 60; RESP 18; TEMP 36.5; O2SAT 99
[2022-12-06] MEDS: Pantoprazole 40 MG TABCR PO (07:22)
[2022-12-06] MEDS: Aspirin 81 MG CHEW 162 MG PO (08:10)
[2022-12-06] MEDS: Polyethylene Glycol 3350 17 GM PACKET PO (08:10)
[2022-12-06 08:11] VITALS: PULSE 65
[2022-12-06] MEDS: Metoprolol CR 25 MG TABCR PO (08:11)
[2022-12-06] MEDS: Digoxin 0.125 MG TAB PO (08:11)
[2022-12-06] MEDS: Furosemide 20 MG TAB PO (08:12)
[2022-12-06] MEDS: Gabapentin 300 MG CAP PO ×2 (08:12→13:36)
[2022-12-06] MEDS: Tiotropium/Olodaterol 10 PUFF INHALER 2 PUFF IH (09:05)
[2022-12-06 09:07] VITALS: O2SAT 98
[2022-12-06] MEDS: Ferrous Gluconate 324 MG TAB PO (09:23)
[2022-12-06 12:14] VITALS: PULSE 56; RESP 18; O2SAT 98
[2022-12-06] MEDS: Albuterol/Ipratropium 3 ML UPD VIAL UPD (12:14)
[2022-12-06 12:19] VITALS: RESP 18; O2SAT 99
--- NOTE | 2022-12-06 14:10 | W.PM.DS.N ---
Date of service: 12/06/22 Time of Service: 14:10 DS: Diagnosis Discharge Diagnosis (1) COPD exacerbation: Status: Acute Discharge Plan Disposition Patient Disposition: Home W/Home Health Services Condition: Stable Discharge Details Reason For Visit: COPD Admit Date/Time: 12/05/22 00:28 Admit Provider: Emile Chavez Attending Provider: Emile Chavez Primary Care Provider: Silvina Perdue Hospital Course Hospital Course: This is a 72-year-old chronically ill male patient who resides at home with home health services admitted through the emergency department for COPD exacerbation. He has been receiving IV ceftriaxone and steroids and has been weaned off oxygen. He has been eating and drinking and requesting discharge to home. In the past he has been referred to palliative care. He is at high risk for readmission and failure and has been identified by home health his primary care provider and palliative care that long-term care placement is most appropriate but the patient has not been agreeable to this. As he has been weaned off oxygen and is hemodynamically stable and is requesting discharge to home at his request will be discharged to home. He will receive prescriptions for 3 more days of antibiotics and steroids to complete a 5-day course. He will be discharged to home with resumption of home health services including nursing PT OT medical surgical worker. discharge discussed with Dr Mayberry Amesbury Meds and New Rx's Prescriptions: New prednisone 20 mg tablet 40 mg PO DAILY Qty: 6 0RF Continued Boost Breeze Nutritional 0.04-1.05 gram-kcal/mL liquid 50 ml PO BID Nicotrol 10 mg cartridge 1 inh inhalation 4-6XD PRN guaifenesin [Robafen] 100 mg/5 mL liquid 200 mg PO Q4H PRN aspirin 81 mg capsule 162 mg PO DAILY polyethylene glycol 3350 17 gram powder in packet 17 g PO DAILY sennosides [Senokot] 8.6 mg tablet 17.2 mg PO HS albuterol sulfate 90 mcg/actuation HFA aerosol inhaler 2 puff inhalation Q4H PRN loperamide 2 mg capsule 4 mg PO .COMPLEX PRN Rx Instructions: 4 mg orally after first loose stool, then 1 capsule after subsequent loose stools. Maximum daily dose is 16mg PRN; gabapentin 300 mg capsule 300 mg PO TID Patient Comments: Take 1 capsule by mouth three times a day prednisone 20 mg tablet 40 mg PO DAILY Qty: 8 0RF ascorbic acid (vitamin C) [Vitamin C] 500 mg tablet 500 mg PO 1XD Patient Comments: Take 1 tablet by mouth every other day take with iron pantoprazole 40 mg tablet,delayed release (DR/EC) 40 mg PO 1XD Patient Comments: Take 1 tablet by mouth once a day amoxicillin-pot clavulanate 875-125 mg tablet 1 tab PO BID Qty: 7 0RF One Daily Multi-Vit w-Mineral 4.5 mg iron tablet 1 tab PO DAILY cholecalciferol (vitamin D3) 50 mcg (2,000 unit) tablet 50 mcg PO DAILY tamsulosin 0.4 mg capsule 0.4 mg PO HS Stiolto Respimat 2.5-2.5 mcg/actuation mist 2 puff INHALATION DAILY atorvastatin 10 mg tablet 10 mg PO HS acetaminophen 500 mg Tablet 1,000 mg PO TID Qty: 0 0RF digoxin 125 mcg (0.125 mg) Tablet 0.125 mg PO DAILY Qty: 0 0RF ferrous gluconate 324 mg (38 mg iron) Tablet 324 mg PO BID@1000,2200 Qty: 0 0RF metoprolol succinate 25 mg Tablet Extended Release 24 Hr 25 mg PO DAILY Qty: 0 0RF Rx Instructions: hold for SBP<100 or HR<60 mirtazapine 7.5 mg tablet 7.5 mg PO HS Qty: 0 0RF Patient Comments: Take 1 tablet by mouth at bedtime pantoprazole 40 mg tablet,delayed release (DR/EC) 40 mg PO BID furosemide [Lasix] 20 mg tablet 20 mg PO DAILY Qty: 7 0RF Discharge Instructions Instructions: COPD (Chronic Obstructive Pulmonary Disease) (DC) Additional Instructions: finish antibiotics and steroids for the next 3 days. Referrals: Silvina Perdue MD [Primary Care Provider] - Activity:: Activity as Tolerated Equipment/Supplies:: No Equipment Needed Diet:: As Tolerated Discharge Orders Discharge Orders: Discharge Order (Routine); Ordered 12/06/22 Ordered By: Kassandra Esparza DS: Summary Time Spent with Patient providing and/or coordinating discharge services: Less than 30 minutes Status at Discharge Functional status at discharge: uses cane/walker Overall status at discharge: patient is not back to baseline Mental Status: mental status grossly normal Speech and Movement: speech and movement normal Mood: congruent mood Affect: normal affect Exam Const General: no acute distress, frail appearing and ill appearing chronically Nutritional Appearance: cachectic Orientation: alert, awake and oriented x3 HENMT Head: normal to inspection, normocephalic and atraumatic Mouth: moist mucous membranes abnormal (dry) Chest Chest: normal inspection of the chest Resp Effort & Inspection: normal respiratory effort Auscultation: diminished lung sounds (throughout) bilaterally Cardio Rate: regular rate Rhythm: regular rhythm GI Inspection: scaphoid Palpation: soft and not rigid Skin Rashes: no rashes Neuro General: patient alert, patient awake, patient oriented x3 and moves all extremities Extrem General: normal to inspection and full ROM Psych Mental Status: mental status grossly normal Speech and Movement: speech and movement normal Mood: congruent mood Affect: normal affect Attitude: cooperative Thought Process: normal DS: Data Vitals/I&O Vitals and I&O: Vital Signs Temperature 36.5 C 12/06/22 06:58 Temperature Source Tympanic 12/06/22 06:58 Pulse 56 L 12/06/22 12:14 Pulse Rhythm Regular 12/06/22 07:50 Pulse 86 12/05/22 00:40 Respiratory Rate 18 12/06/22 12:19 Respiratory Effort Normal 12/06/22 07:50 Respiratory Depth Normal 12/05/22 15:31 Respiratory Pattern Normal 12/05/22 15:31 Blood Pressure 148/70 H 12/06/22 06:58 Blood Pressure Mean 59 12/04/22 22:16 Blood Pressure Position Sitting 12/04/22 21:00 Pulse Oximetry 99 12/06/22 12:19 Oxygen Delivery Method Room Air 12/06/22 12:14 Oxygen Flow Rate 0 12/06/22 12:14 Pain Level 0 12/06/22 06:58 Intake & Output 12/05/22 12/06/22 12/06/22 23:59 11:59 23:59 Intake Total 100 / 760 250 / 250 Output Total 400 / 600 200 / 200 Balance -300 / 160 250 / 50 -200 / 50 Intake: IV 50 / 50 Oral 100 / 460 200 / 200 Output: Urine 400 / 600 200 / 200 Other: Urine Color Yellow Urine Appearance Cloudy Voiding Methods Urinal PFSH All Active Problems COPD exacerbation (Acute) Shortness of breath (Acute) Lung mass (Acute) Elevated troponin (Acute) Hypotension (Acute) DNR (do not resuscitate) (Acute) DNR, but would like trial of intubation. See 09/26 Note Acute bronchitis (Acute) Left foot pain (Acute) Palliative care patient (Acute) Underweight (Acute) Diastolic heart failure (Chronic) Closed intertrochanteric fracture of left femur (Acute) s/p IMN fixation (08/28/22) Fall (Acute) Blunt head trauma (Acute) Contusion of elbow, left (Acute) Contusion of left leg (Acute) Closed fracture of left hip (Acute) Mild cognitive impairment (Acute) Advanced care planning/counseling discussion (Acute) Literacy level of illiterate (Acute) Palliative care encounter (Acute) Acute on chronic right-sided congestive heart failure (Acute) Pneumonia (Acute) Hypoxia (Acute) Depression (Chronic) Dental abscess (Acute) 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) Abnormal chest CT (Acute) Full code status (Acute) 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) CAP (community acquired pneumonia) (Acute) Generalized weakness (Acute) Skin tear of left elbow without complication (Acute) Chronic obstructive lung disease (Chronic) Tricuspid regurgitation (Chronic) CAD (coronary artery disease) (Chronic) Hypertension (Chronic) Medical History Abdominal pain Abnormal radiologic findings on diagnostic imaging of renal pelvis, ureter, or bladder Acute on chronic anemia Acute on chronic diastolic (congestive) heart failure Acute on chronic systolic CHF (congestive heart failure) Adenocarcinoma of esophagus From [facility] [place]:Hx GI Cancer...EGD 04/2021 with friable mucosa. SDOne at that time because of GI blooed Afib Alcohol abuse Alcohol abuse, continuous drinking behavior Anemia Aspiration pneumonia Bilateral lower extremity edema CAD (coronary artery disease) of artery bypass graft Cerumen impaction CHF, acute on chronic Closed intertrochanteric fracture Confusion state COVID-19 COVID-19 Diabetes mellitus Difficulty reading Edema Encounter for colorectal cancer screening Epididymitis, right (08/02/16) Essential hypertension Failure to thrive Fall GERD (gastroesophageal reflux disease) GI bleed GI bleeding H/O malignant neoplasm of stomach Heart failure, left, with LVEF 41-49% History of fracture of left hip S/P IM NAIL DOS: 08/28/22 History of GI bleed Hoarseness Hydrocele, right (01/23/16) Hyperlipidemia Hypophosphatemia Kyphoscoliosis Low back pain Malnutrition Mild bibasilar atelectasis Pancreatitis Poor hygiene Prediabetes Protein malnutrition Pulmonary hypertension Recent weight loss Rib fractures Shortness of breath Solitary pulmonary nodule Tinnitus, left Tobacco abuse Weight loss Surgical History cardiac cath Coronary Artery Bypass Gaft (CABG) EGD - IV Sedation Esophagectomy H/O colonoscopy (2007) H/O colonoscopy (04/14/18) dr geller, sigmoid diverticulosis, repeat 10 years History of esophagogastroduodenoscopy (EGD) (09/2017) History of hydrocelectomy History of right inguinal hernia repair repair times two sugrical flap of unhealing wound Family History Mother No problems noted. Father No problems noted. Social History Smoking/Tobacco Use Status: Former Tobacco Use Smoking risk assessment performed?: Yes Alcohol Intake: former Drug use: Never Substance use type: does not use Housing: apartment Current gender identity: male What type of physical activity do you participate in: none Do you feel safe at home: Yes Do you feel safe in your relationship?: Yes Time Spent with Patient Time Spent with Patient: <45 minutes Time was spent: preparing to see the patient(eg.review tests), ordering medications,tests, procedures, referring, communicating with other health health care facilities inspector, counseling the patient and care coordination
[2022-12-06 14:44] VITALS: BP 100/60; PULSE 73; RESP 18; TEMP 36.5; O2SAT 98
--- NOTE | 2022-12-06 21:28 | PDOC.CMDIS ---
Date of service: 12/06/22 Time of Service: 21:29 LACE Index Scoring Tool Questions: Length of Stay (in days): 1 Was the patient admitted via the E.D.?: Yes Comorbidities: Congestive Heart Failure, Chronic Pulmonary Disease and Any Tumor E.D. Visits: 8 Answers: Total Score: 13 Risk of Readmission: High Risk Care Management Discharge Plan Reason for Hospitalization: COPD Exacerbation Discharge Plan: Ilia will be discharged home with a resumption of home health services for SN,PT and OT. he will follow up with his community providers and plan of care and transport with [facility] coordinated by CM. Patient/Family Education Needs: review of discharge instructions, limitations, follow up plan Ask me Three Services Needed at Discharge: Home Health Care Services
== END 2022-12-06 16:20 | disposition home health service (06) | DRG 191 ==
LOC: ER 12-05 00:37 → MS 12-05 01:10
PROVIDERS: Admitting Provider General Practice; Emergency Provider Emergency Medicine; PCP Family Medicine; Visit Provider General Practice
DX: J44.1 Chronic obstructive pulmonary disease with (acute) exacerbation (principal); I50.32 Chronic diastolic (congestive) heart failure; Z68.1 Body mass index [BMI] 19.9 or less, adult; I48.91 Unspecified atrial fibrillation; Z66 Do not resuscitate; R91.1 Solitary pulmonary nodule; R74.8 Abnormal levels of other serum enzymes; I95.9 Hypotension, unspecified; R63.6 Underweight; G31.84 Mild cognitive impairment of uncertain or unknown etiology; Z55.0 Illiteracy and low-level literacy; R09.02 Hypoxemia; F32.A Depression, unspecified; F10.21 Alcohol dependence, in remission; R33.9 Retention of urine, unspecified; R53.1 Weakness; I25.10 Atherosclerotic heart disease of native coronary artery without angina pectoris; I11.0 Hypertensive heart disease with heart failure; I07.1 Rheumatic tricuspid insufficiency; Z85.01 Personal history of malignant neoplasm of esophagus; E78.5 Hyperlipidemia, unspecified; Z87.891 Personal history of nicotine dependence
CPT/HCPCS: 36415; 80053; 87637; 93005; 94640; 96365; 96375; 99285; 71046; 83880; 85025; 93010; 94664; 94760; 99222; 99238; J0456; J0696; J1100; J7620

== ENCOUNTER 2022-12-07 15:19 | Inpatient (IN) | payer MEDICARE, MEDICAID, SELFPAY ==
[2022-12-07] VITALS (41 sets, daily range): BP systolic 110–143; BP diastolic 56–114; PULSE 38–88; RESP 13–30; TEMP 36.4–37; O2SAT 97–98
--- NOTE | 2022-12-07 15:15 | RT.EKG_ITS ---
APPROVED REPORT Exam: Resting ECG Reason for Exam: sob Patient Location: E HR:45 bpm ECG Measurements Heart Rate 45 AXIS WY [id number] P [id number] QRSd 76 QRS 103 QT 438 T -21 QTc 378 Conclusion Atrial fibrillation...V-rate 36- 36, irreg A-activity Probable right ventricular hypertrophy...prominent R or R' w/ RAD or MANISHA Probable lateral infarct, old...Q>35mS, abnormal ST-T, V5-[address] elevation, anterior leads...ST >0.15mV in V1-V4
--- NOTE | 2022-12-07 16:00 | DI.RAD_ITS ---
Exam(s) XR PORTABLE CHEST AP EXAM: XR PORTABLE CHEST AP CLINICAL HISTORY: shortness of breath TECHNIQUE: 2D digital imaging was performed. COMPARISON: CT CT CHEST PE CTA from 11/16/2022 [facility],XR XR PORTABLE CHEST AP from 11/16/2022 [facility],XR XR CHEST 2V PA LATERAL from 12/04/2022 FINDINGS: LUNGS: There lying emphysematous and fibrotic changes. Increased densities again noted at the medial lung bases, left greater than right. No effusion visible. HEART: Enlarged. Status post CABG. AORTA: Normal diameter. BONES: Sternal wires. Soft tissues: Unremarkable. IMPRESSION: No significant change in basilar pneumonia/atelectasis. DATA REPOSITORY: RADIATION DOSE DELIVERED:
[2022-12-07] MEDS: Albuterol/Ipratropium 3 ML UPD VIAL UPD (16:03)
[2022-12-07] MEDS: methylPREDNISolone SUCC 125 MG VIAL 60 MG IVP (16:03)
[2022-12-07 16:11] LABS: Abs Immature Grans 0.09 10^3/uL (0.0-0.06); Absolute Basophil Count 0.02 10^3/uL (0.0-0.2); Absolute Eosinophil Count 0.01 10^3/uL (0.0-0.7); Absolute Monocyte Count 0.71 10^3/uL (0.1-0.8); Absolute Neutrophil Count 7.69 10^3/uL (1.2-6.7); Basophils % 0.2; Eosinophils % 0.1; HCT 41.3 % (40.0-50.0); HGB 13.1 g/dL (13.5-17.5); Immature Grans % 0.9; Lymphocytes % 13.2; MCH 30.1 pg (27.0-33.0); MCHC 31.7 % (32.0-36.0); MCV 95 fL (80-95); MPV 10.1 fL (8.0-11.0); Monocytes % 7.2; Neutrophils % 78.4; Platelet Count 192 10^3/uL (130-400); RBC 4.35 10^6/uL (4.36-5.78); RDW 15.6 % (11.8-14.1); RDW-SD 54.8 fL; WBC 9.82 10^3/uL (4.4-10.8)
[2022-12-07 16:32] LABS: ALT 56 U/L (16-63); AST 44 U/L (15-37); Albumin 2.9 g/dL (3.4-5.0); Alkaline Phosphatase 144 U/L (46-116); Anion Gap 5.8 mmol/L (3-11); BUN 45 mg/dL (7-18); Bilirubin, Total 0.3 mg/dL (0.2-1.0); CO2 27.2 mmol/L (21.0-32.0); CREATININE 0.8 mg/dL (0.70-1.30); Chloride 105 mmol/L (98-107); Estimated GFR 94.03 (mL/min/1.73m2); Glucose 73 mg/dL (74-106); NT-proBNP 7333 pg/mL (<300); Potassium 4.5 mmol/L (3.5-5.1); Sodium 138 mmol/L (136-145); Total Protein 7.5 g/dL (6.4-8.2); Troponin I 50 ng/L (<or=60)
[2022-12-07] MEDS: Furosemide 20 MG/2 ML VIAL IVP (16:55)
--- NOTE | 2022-12-07 16:58 | ED.GENADUL_ITS ---
Discharge Plan Disposition Patient Disposition: Admit to [facility] Condition: Serious Discharge Details Chief Complaint: SOB Clinical Impression: COPD exacerbation, Pneumonia Primary Care Provider: Silvina Perdue ED Provider: Tod Veloz Home Meds and New Rx's Prescriptions: No Action Boost Breeze Nutritional 0.04-1.05 gram-kcal/mL liquid 50 ml PO BID Nicotrol 10 mg cartridge 1 inh inhalation 4-6XD PRN guaifenesin [Robafen] 100 mg/5 mL liquid 200 mg PO Q4H PRN aspirin 81 mg capsule 162 mg PO DAILY polyethylene glycol 3350 17 gram powder in packet 17 g PO DAILY sennosides [Senokot] 8.6 mg tablet 17.2 mg PO HS albuterol sulfate 90 mcg/actuation HFA aerosol inhaler 2 puff inhalation Q4H PRN loperamide 2 mg capsule 4 mg PO .COMPLEX PRN Rx Instructions: 4 mg orally after first loose stool, then 1 capsule after subsequent loose stools. Maximum daily dose is 16mg PRN; gabapentin 300 mg capsule 300 mg PO TID Patient Comments: Take 1 capsule by mouth three times a day prednisone 20 mg tablet 40 mg PO DAILY Qty: 8 0RF ascorbic acid (vitamin C) [Vitamin C] 500 mg tablet 500 mg PO 1XD Patient Comments: Take 1 tablet by mouth every other day take with iron pantoprazole 40 mg tablet,delayed release (DR/EC) 40 mg PO 1XD Patient Comments: Take 1 tablet by mouth once a day prednisone 20 mg tablet 40 mg PO DAILY Qty: 6 0RF amoxicillin-pot clavulanate 875-125 mg tablet 1 tab PO BID Qty: 7 0RF One Daily Multi-Vit w-Mineral 4.5 mg iron tablet 1 tab PO DAILY cholecalciferol (vitamin D3) 50 mcg (2,000 unit) tablet 50 mcg PO DAILY tamsulosin 0.4 mg capsule 0.4 mg PO HS Stiolto Respimat 2.5-2.5 mcg/actuation mist 2 puff INHALATION DAILY atorvastatin 10 mg tablet 10 mg PO HS acetaminophen 500 mg Tablet 1,000 mg PO TID Qty: 0 0RF digoxin 125 mcg (0.125 mg) Tablet 0.125 mg PO DAILY Qty: 0 0RF ferrous gluconate 324 mg (38 mg iron) Tablet 324 mg PO BID@1000,2200 Qty: 0 0RF metoprolol succinate 25 mg Tablet Extended Release 24 Hr 25 mg PO DAILY Qty: 0 0RF Rx Instructions: hold for SBP<100 or HR<60 mirtazapine 7.5 mg tablet 7.5 mg PO HS Qty: 0 0RF Patient Comments: Take 1 tablet by mouth at bedtime pantoprazole 40 mg tablet,delayed release (DR/EC) 40 mg PO BID furosemide [Lasix] 20 mg tablet 20 mg PO DAILY Qty: 7 0RF Medical Decision Making 1700 --72-year-old male with multiple medical problems including history of coronary artery disease, CHF, COPD, discharged yesterday after brief admission for COPD exacerbation, returns with continued shortness of breath and generalized weakness. Patient has significant JVD on exam. He has diminished breath sounds bilaterally with some fine rales at the bases. He is tachypneic but currently saturating well in the mid to upper 90s. Suspect acute CHF exacerbation and COPD exacerbation. EKG was reviewed and interpreted by me: Please report, atrial fibrillation with slow ventricular rate of 45 bpm, ST depressions noted inferior lateral with ST elevation in V2. Depressions and ST elevation were present on prior EKG from 12/04/2022. Initial troponin is normal today. He has no chest pain. BNP is significantly elevated at 7300. This has increased from recent prior. I will give Lasix 20 mg IV. 1729 --chest x-ray interpreted by radiology: Left lower lobe atelectasis/consolidation with mild airspace disease. Right lower lobe atelectasis. No pleural effusion noted. Impression: Stable pneumonia. We will initiate treatment with ceftriaxone IV. Patient was receiving this as an inpatient for treatment of pneumonia. 1744 --I spoke with Dr. Mayberry and [employer] Isaias, discussed ED presentation course, they will admit the patient for further diagnostics and treatment. Medical Records Medical records reviewed: Yes I reviewed the patient's medical records. Lab Data Lab results reviewed: Yes I reviewed the patient's lab results. Labs: Laboratory Tests Range/Units 12/07/22 12/07/22 12/07/22 15:50 15:50 15:50 WBC (4.4-10.8) 10^3/uL 9.82 RBC (4.36-5.78) 10^6/uL 4.35 L Hgb (13.5-17.5) g/dL 13.1 L Hct (40.0-50.0) % 41.3 MCV (80-95) fL 95 MCH (27.0-33.0) pg 30.1 MCHC (32.0-36.0) % 31.7 L RDW (11.8-14.1) % 15.6 H Plt Count (130-400) 10^3/uL 192 MPV (8.0-11.0) fL 10.1 Immature Gran % 0.9 Neutrophils % 78.4 Lymphocytes % 13.2 Monocytes % 7.2 Eosinophils % 0.1 Basophils % 0.2 Nucleated RBC % (0.0-0.3) % 0.0 Absolute Neutrophils (1.2-6.7) 10^3/uL 7.69 H Absolute Lymphocytes (1.2-3.4) 10^3/uL 1.30 Absolute Monocytes (0.1-0.8) 10^3/uL 0.71 Absolute Eosinophils (0.0-0.7) 10^3/uL 0.01 Absolute Basophils (0.0-0.2) 10^3/uL 0.02 Sodium (136-145) mmol/L 138 Potassium (3.5-5.1) mmol/L 4.5 Chloride (98-107) mmol/L 105 Carbon Dioxide (21.0-32.0) mmol/L 27.2 Anion Gap (3-11) mmol/L 5.8 BUN (7-18) mg/dL 45 H Creatinine (0.70-1.30) mg/dL 0.8 Est GFR (CKD-EPI 2020) (mL/min/1.73m2) 94.03 Glucose (74-106) mg/dL 73 L Calcium (8.5-10.1) mg/dL 9.0 Magnesium (1.8-2.4) mg/dL 2.0 Total Bilirubin (0.2-1.0) mg/dL 0.3 AST (15-37) U/L 44 H ALT (16-63) U/L 56 Alkaline Phosphatase (46-116) U/L 144 H Troponin I (<or=60) ng/L 50 NT-Pro-B Natriuret Pep (<300) pg/mL 7333 H Total Protein (6.4-8.2) g/dL 7.5 Albumin (3.4-5.0) g/dL 2.9 L TSH (0.36-3.74) uIU/mL 2.00 HPI General Mode of arrival: EMS . Date/Time Provider Initiated Documentation: 12/07/22 15:28 . Limitations to Documentation: other (poor historian) . Information obtained by: patient and EMS . HPI Narrative: 72-year-old male with multiple medical problems including history of COPD, coronary artery disease, CHF, cognitive impairment, here with chief complaint of shortness of breath. Patient was here in the emergency [facility] for COPD exacerbation on 12/05/2022. He was admitted to hospital and was feeling better yesterday. He was discharged home. Of note, patient was noted to be high risk for readmission and failure of outpatient treatment. Patient returns now noting continued shortness of breath. He does not have oxygen at home. He denies chest pain. Related Data Home Medications Medication Instructions Recorded Confirmed gabapentin 300 mg capsule 300 mg PO TID 07/19/22 12/04/22 atorvastatin 10 mg tablet 10 mg PO HS 08/28/22 12/04/22 cholecalciferol (vitamin D3) 50 50 mcg PO DAILY 08/28/22 12/04/22 mcg (2,000 unit) tablet multivitamin with minerals-ferrous 1 tab PO DAILY 08/28/22 11/24/22 sulfate 4.5 mg iron tablet (One Daily Multivitamins with Minerals) tamsulosin 0.4 mg capsule 0.4 mg PO HS 08/28/22 11/24/22 tiotropium 2.5 mcg-olodaterol 2.5 2 puff inhalation DAILY 08/28/22 12/04/22 mcg/actuation mist for inhalation (Stiolto Respimat) acetaminophen 500 mg tablet 1,000 mg PO TID #0 tabs 09/06/22 11/24/22 digoxin 125 mcg (0.125 mg) tablet 0.125 mg PO DAILY #0 tabs 09/06/22 12/04/22 ferrous gluconate 324 mg (38 mg 324 mg PO BID@1000,2200 #0 tabs 09/06/22 12/04/22 iron) tablet metoprolol succinate 25 mg 25 mg PO DAILY #0 tabs 09/06/22 12/04/22 tablet,extended release 24 hr mirtazapine 7.5 mg tablet 7.5 mg PO HS #0 tabs 09/06/22 12/04/22 food supplemt, lactose-reduced 50 ml PO BID 09/22/22 12/04/22 0.04 gram-1.05 kcal/mL oral liquid (Boost Breeze Nutritional) guaifenesin 100 mg/5 mL oral 200 mg PO Q4H PRN 09/22/22 11/24/22 liquid (Robafen) nicotine 10 mg inhalation 1 inh inhalation 4-6XD PRN 09/22/22 11/24/22 cartridge (Nicotrol) albuterol sulfate 90 mcg/actuation 2 puff inhalation Q4H PRN 10/05/22 12/04/22 aerosol inhaler aspirin 81 mg capsule 162 mg PO DAILY 10/05/22 12/04/22 loperamide 2 mg capsule 4 mg PO .COMPLEX PRN 10/05/22 12/04/22 pantoprazole 40 mg tablet,delayed 40 mg PO BID 10/05/22 12/04/22 release polyethylene glycol 3350 17 gram 17 g PO DAILY 10/05/22 12/04/22 oral powder packet sennosides 8.6 mg tablet (Senokot) 17.2 mg PO HS 10/05/22 12/04/22 furosemide 20 mg tablet (Lasix) 20 mg PO DAILY #7 tabs 10/26/22 12/04/22 prednisone 20 mg tablet 40 mg PO DAILY #8 tabs 11/19/22 11/24/22 ascorbic acid (vitamin C) 500 mg 500 mg PO 1XD 12/04/22 12/04/22 tablet (Vitamin C) pantoprazole 40 mg tablet,delayed 40 mg PO 1XD 12/04/22 12/04/22 release amoxicillin 875 mg-potassium 1 tab PO BID #7 tabs 12/06/22 clavulanate 125 mg tablet prednisone 20 mg tablet 40 mg PO DAILY #6 tabs 12/06/22 Previous Rx's Medication Instructions Recorded acetaminophen 500 mg tablet 1,000 mg PO TID #0 tabs 09/06/22 digoxin 125 mcg (0.125 mg) tablet 0.125 mg PO DAILY #0 tabs 09/06/22 ferrous gluconate 324 mg (38 mg 324 mg PO BID@1000,2200 #0 tabs 09/06/22 iron) tablet metoprolol succinate 25 mg 25 mg PO DAILY #0 tabs 09/06/22 tablet,extended release 24 hr mirtazapine 7.5 mg tablet 7.5 mg PO HS #0 tabs 09/06/22 furosemide 20 mg tablet (Lasix) 20 mg PO DAILY #7 tabs 10/26/22 prednisone 20 mg tablet 40 mg PO DAILY #8 tabs 11/19/22 amoxicillin 875 mg-potassium 1 tab PO BID #7 tabs 12/06/22 clavulanate 125 mg tablet prednisone 20 mg tablet 40 mg PO DAILY #6 tabs 12/06/22 Allergies Allergy/AdvReac Type Severity Reaction Status Date / Time No Known Allergies Allergy Verified 12/04/22 21:11 General Stated Complaint: SOB ANAMIKA: 3 Review of Systems All systems reviewed & are unremarkable except as noted in HPI and below Constitutional Constitutional: Denies fever(s), Reports lethargy and Reports weakness Cardiovascular Cardiovascular: Reports dyspnea and Reports dyspnea on exertion Respiratory Respiratory: Reports dyspnea and Reports dyspnea on exertion Neurologic Neurologic: Reports weakness PFSH All Active Problems (Updated 12/07/22 @ 17:49 by Tod Veloz MD) COPD exacerbation (Acute) Pneumonia (Acute) COPD exacerbation (Acute) Shortness of breath (Acute) Lung mass (Acute) Elevated troponin (Acute) Hypotension (Acute) DNR (do not resuscitate) (Acute) DNR, but would like trial of intubation. See 09/26 Note Acute bronchitis (Acute) Left foot pain (Acute) Palliative care patient (Acute) Underweight (Acute) Diastolic heart failure (Chronic) Closed intertrochanteric fracture of left femur (Acute) s/p IMN fixation (08/28/22) Fall (Acute) Blunt head trauma (Acute) Contusion of elbow, left (Acute) Contusion of left leg (Acute) Closed fracture of left hip (Acute) Mild cognitive impairment (Acute) Advanced care planning/counseling discussion (Acute) Literacy level of illiterate (Acute) Palliative care encounter (Acute) Acute on chronic right-sided congestive heart failure (Acute) Pneumonia (Acute) Hypoxia (Acute) Depression (Chronic) Dental abscess (Acute) 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) Abnormal chest CT (Acute) Full code status (Acute) 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) CAP (community acquired pneumonia) (Acute) Generalized weakness (Acute) Skin tear of left elbow without complication (Acute) Chronic obstructive lung disease (Chronic) Tricuspid regurgitation (Chronic) CAD (coronary artery disease) (Chronic) Hypertension (Chronic) Medical History Abdominal pain Abnormal radiologic findings on diagnostic imaging of renal pelvis, ureter, or bladder Acute on chronic anemia Acute on chronic diastolic (congestive) heart failure Acute on chronic systolic CHF (congestive heart failure) Adenocarcinoma of esophagus From [facility] [place] [place]:Hx GI Cancer...EGD 04/2021 with friable mucosa. SDOne at that time because of GI blooed Afib Alcohol abuse Alcohol abuse, continuous drinking behavior Anemia Aspiration pneumonia Bilateral lower extremity edema CAD (coronary artery disease) of artery bypass graft Cerumen impaction CHF, acute on chronic Closed intertrochanteric fracture Confusion state COVID-19 COVID-19 Diabetes mellitus Difficulty reading Edema Encounter for colorectal cancer screening Epididymitis, right (08/02/16) Essential hypertension Failure to thrive Fall GERD (gastroesophageal reflux disease) GI bleed GI bleeding H/O malignant neoplasm of stomach Heart failure, left, with LVEF 41-49% History of fracture of left hip S/P IM NAIL DOS: 08/28/22 History of GI bleed Hoarseness Hydrocele, right (01/23/16) Hyperlipidemia Hypophosphatemia Kyphoscoliosis Low back pain Malnutrition Mild bibasilar atelectasis Pancreatitis Poor hygiene Prediabetes Protein malnutrition Pulmonary hypertension Recent weight loss Rib fractures Shortness of breath Solitary pulmonary nodule Tinnitus, left Tobacco abuse Weight loss Surgical History cardiac cath Coronary Artery Bypass Gaft (CABG) EGD - IV Sedation Esophagectomy H/O colonoscopy (2007) H/O colonoscopy (04/14/18) dr geller, sigmoid diverticulosis, repeat 10 years History of esophagogastroduodenoscopy (EGD) (09/2017) History of hydrocelectomy History of right inguinal hernia repair repair times two sugrical flap of unhealing wound Family History Mother No problems noted. Father No problems noted. Social History Smoking/Tobacco Use Status: Former Tobacco Use Smoking risk assessment performed?: Yes Alcohol Intake: former Drug use: Never Substance use type: does not use Housing: apartment Current gender identity: male What type of physical activity do you participate in: none Do you feel safe at home: Yes Do you feel safe in your relationship?: Yes Exam Const General: cooperative Nutritional Appearance: thin Orientation: alert and awake HENMT Mouth: moist mucous membranes Eyes Conjunctivae: normal conjunctivae Sclera: normal sclerae Neck Neck: trachea midline and supple Resp Effort & Inspection: tachypneic Auscultation: diminished lung sounds bilaterally, rales bilaterally at the base and no rhonchi Cardio Rate: bradycardic and not tachycardic Rhythm: abnormal rhythm irregularly irregular GI Palpation: soft, not firm, no guarding, no masses, not rigid and nontender Skin General skin exam: no rashes or lesions noted Neuro General: patient alert, patient awake and tone normal Extrem General: no calf tenderness and no edema Course Vital Signs Vital signs: Vital Signs Temperature 36.8 C 12/07/22 15:19 Pulse 40 L 12/07/22 15:19 Respiratory Rate 18 12/07/22 15:19 Blood Pressure 128/62 12/07/22 15:19 Pulse Oximetry 98 12/07/22 15:19 Temperature 36.8 C 12/07/22 15:19 Temperature Source Tympanic 12/07/22 15:19 Pulse 50 L 12/07/22 16:01 Pulse 38 L 12/07/22 16:01 Respiratory Rate 18 12/07/22 16:03 Respiratory Effort Normal 12/07/22 16:03 Respiratory Depth Normal 12/07/22 16:03 Respiratory Pattern Normal 12/07/22 16:03 Blood Pressure 114/64 12/07/22 16:01 Blood Pressure Mean 76 12/07/22 16:01 Blood Pressure Position Sitting 12/07/22 15:19 Pulse Oximetry 98 12/07/22 15:19 Oxygen Delivery Method Room Air 12/07/22 15:19 Oxygen Flow Rate 0 12/07/22 15:19 Pain Level 0 12/07/22 15:19 Lab/Test Results Lab/Test Results: Laboratory Tests Range/Units 12/07/22 12/07/22 12/07/22 15:50 15:50 15:50 WBC (4.4-10.8) 10^3/uL 9.82 RBC (4.36-5.78) 10^6/uL 4.35 L Hgb (13.5-17.5) g/dL 13.1 L Hct (40.0-50.0) % 41.3 MCV (80-95) fL 95 MCH (27.0-33.0) pg 30.1 MCHC (32.0-36.0) % 31.7 L RDW (11.8-14.1) % 15.6 H Plt Count (130-400) 10^3/uL 192 MPV (8.0-11.0) fL 10.1 Immature Gran % 0.9 Neutrophils % 78.4 Lymphocytes % 13.2 Monocytes % 7.2 Eosinophils % 0.1 Basophils % 0.2 Nucleated RBC % (0.0-0.3) % 0.0 Absolute Neutrophils (1.2-6.7) 10^3/uL 7.69 H Absolute Lymphocytes (1.2-3.4) 10^3/uL 1.30 Absolute Monocytes (0.1-0.8) 10^3/uL 0.71 Absolute Eosinophils (0.0-0.7) 10^3/uL 0.01 Absolute Basophils (0.0-0.2) 10^3/uL 0.02 Sodium (136-145) mmol/L 138 Potassium (3.5-5.1) mmol/L 4.5 Chloride (98-107) mmol/L 105 Carbon Dioxide (21.0-32.0) mmol/L 27.2 Anion Gap (3-11) mmol/L 5.8 BUN (7-18) mg/dL 45 H Creatinine (0.70-1.30) mg/dL 0.8 Est GFR (CKD-EPI 2020) (mL/min/1.73m2) 94.03 Glucose (74-106) mg/dL 73 L Calcium (8.5-10.1) mg/dL 9.0 Magnesium (1.8-2.4) mg/dL 2.0 Total Bilirubin (0.2-1.0) mg/dL 0.3 AST (15-37) U/L 44 H ALT (16-63) U/L 56 Alkaline Phosphatase (46-116) U/L 144 H Troponin I (<or=60) ng/L 50 NT-Pro-B Natriuret Pep (<300) pg/mL 7333 H Total Protein (6.4-8.2) g/dL 7.5 Albumin (3.4-5.0) g/dL 2.9 L TSH (0.36-3.74) uIU/mL 2.00
--- NOTE | 2022-12-07 17:08 | DI.VRAD_ITS ---
Addendum created by Julito Khalil MD on 12/07/2022 5:08:54 PM EDT: Stable pneumonia. Initial report created on 12/07/2022 5:08:18 PM EDT: PROCEDURE INFORMATION: Exam: XR Chest Exam date and time: 12/07/2022 4:45 PM Age: 72 years old Clinical indication: Shortness of breath TECHNIQUE: Imaging protocol: Radiologic exam of the chest. Views: 1 view. COMPARISON: CR XR CHEST 2V PA LATERAL 12/04/2022 10:28 PM FINDINGS: Lungs: Left lower lobe atelectasis/consolidation with mild airspace disease. Right lower lobe atelectasis. Pleural spaces: Unremarkable. No pleural effusion. No pneumothorax. Heart/Mediastinum: Stable cardiomegaly. Bones/joints: Median sternotomy wires. IMPRESSION: Stable ammonia. Dictated and Authenticated by: Julito Khalil MD. Ordering:ALECIA Baron MD
--- NOTE | 2022-12-07 17:43 | W.PM.HP.N ---
Date of service: 12/07/22 Time of Service: 17:43 Assessment and Plan Assessment and plan (1) Pneumonia: Status: Acute Assessment and plan: stable by cxr. will recheck procal which was < 0.1 on previous visit. was on augmentin to cover for possible aspiration, which he has history of. will change to levaquin to add coverage for atypicals. consider air quality and humidity as discharge failure factors as clinical picture stable from discharge. he is also very frail and concerns on record about his ability to live independently with LTC facility discharge recommendations by his outpatient team. palliative input appreciated. (2) Acute on chronic right-sided congestive heart failure: Status: Chronic Assessment and plan: received iv lasix in ED, continue home oral dose monitor I/O and weights last echo jul 2022 Conclusion Normal left ventricular wall thickness and chamber size.? Estimated ejection fraction is 60% , there are no segmental wall motion abnormalities Right ventricle is moderately dilated.? There is paradoxic septal motion consistent with right ventricular volume overload The right atrium is moderately dilated.? The left atrium is mildly dilated Aortic valve is mildly sclerotic and trileaflet without stenosis or regurgitation Normal mitral valve with mild regurgitation Normal tricuspid valve with moderate to severe regurgitation.? Estimated right ventricular systolic pressure is 53 mmHg (3) Chronic obstructive lung disease: Status: Chronic Assessment and plan: steroids and bronchodilators along w/ antibiotics as outlined above; oxygen only to keep SPO2 over 88%. no current requirements (4) Afib: Assessment and plan: rate is currently controlled to overcontrolled. continue metoprolol and dig. dig level on 11/16 was 1.02 not a candidate for anticoagulation d/t prior GI bleeds. may need dose adjustment if maintained overcontrolled. monitor on tele (5) DVT prophylaxis: Status: Resolved Assessment and plan: enoxaparin SC (6) Discharge planning issues: Status: Resolved Assessment and plan: patient is DNR/DNI as per prior admissions. discharge plans will be determined after we see how he responds to medical treatment. consult w/ P.T. to evaluate his gait, strength and ADL performance consult with palliative for goals of care discussed with DR Mayberry History of Present Illness History of Present Illness Chief Complaint: shortness of breath Narrative: returns to ED after being discharged yesterday for copd exac/pneumonia with ongoing sob. no new fever, work up most consistent with stable pneumonia, no oxygen requirements. does not feel safe for discharge to home [facility] All Active Problems (Updated 12/07/22 @ 18:06 by Kassandra Esparza NP) COPD exacerbation (Acute) Pneumonia (Acute) COPD exacerbation (Acute) Shortness of breath (Acute) Lung mass (Acute) Elevated troponin (Acute) Hypotension (Acute) DNR (do not resuscitate) (Acute) DNR, but would like trial of intubation. See 09/26 Note Acute bronchitis (Acute) Left foot pain (Acute) Palliative care patient (Acute) Underweight (Acute) Diastolic heart failure (Chronic) Closed intertrochanteric fracture of left femur (Acute) s/p IMN fixation (08/28/22) Fall (Acute) Blunt head trauma (Acute) Contusion of elbow, left (Acute) Contusion of left leg (Acute) Closed fracture of left hip (Acute) Mild cognitive impairment (Acute) Advanced care planning/counseling discussion (Acute) Literacy level of illiterate (Acute) Palliative care encounter (Acute) Acute on chronic right-sided congestive heart failure (Chronic) Pneumonia (Acute) Hypoxia (Acute) Depression (Chronic) Dental abscess (Acute) 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) Abnormal chest CT (Acute) Full code status (Acute) 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) CAP (community acquired pneumonia) (Acute) Generalized weakness (Acute) Skin tear of left elbow without complication (Acute) Chronic obstructive lung disease (Chronic) Tricuspid regurgitation (Chronic) CAD (coronary artery disease) (Chronic) Hypertension (Chronic) Medical History Abdominal pain Abnormal radiologic findings on diagnostic imaging of renal pelvis, ureter, or bladder Acute on chronic anemia Acute on chronic diastolic (congestive) heart failure Acute on chronic systolic CHF (congestive heart failure) Adenocarcinoma of esophagus From [facility]:Hx GI Cancer...EGD 04/2021 with friable mucosa. SDOne at that time because of GI blooed Afib Alcohol abuse Alcohol abuse, continuous drinking behavior Anemia Aspiration pneumonia Bilateral lower extremity edema CAD (coronary artery disease) of artery bypass graft Cerumen impaction CHF, acute on chronic Closed intertrochanteric fracture Confusion state COVID-19 COVID-19 Diabetes mellitus Difficulty reading Edema Encounter for colorectal cancer screening Epididymitis, right (08/02/16) Essential hypertension Failure to thrive Fall GERD (gastroesophageal reflux disease) GI bleed GI bleeding H/O malignant neoplasm of stomach Heart failure, left, with LVEF 41-49% History of fracture of left hip S/P IM NAIL DOS: 08/28/22 History of GI bleed Hoarseness Hydrocele, right (01/23/16) Hyperlipidemia Hypophosphatemia Kyphoscoliosis Low back pain Malnutrition Mild bibasilar atelectasis Pancreatitis Poor hygiene Prediabetes Protein malnutrition Pulmonary hypertension Recent weight loss Rib fractures Shortness of breath Solitary pulmonary nodule Tinnitus, left Tobacco abuse Weight loss Surgical History cardiac cath Coronary Artery Bypass Gaft (CABG) EGD - IV Sedation Esophagectomy H/O colonoscopy (2007) H/O colonoscopy (04/14/18) dr geller, sigmoid diverticulosis, repeat 10 years History of esophagogastroduodenoscopy (EGD) (09/2017) History of hydrocelectomy History of right inguinal hernia repair repair times two sugrical flap of unhealing wound Family History Mother No problems noted. Father No problems noted. Social History Smoking/Tobacco Use Status: Former Tobacco Use Smoking risk assessment performed?: Yes Alcohol Intake: former Drug use: Never Substance use type: does not use Housing: apartment Current gender identity: male What type of physical activity do you participate in: none Do you feel safe at home: Yes Do you feel safe in your relationship?: Yes Meds Allergies and Home Medications Allergies Allergy/AdvReac Type Severity Reaction Status Date / Time No Known Allergies Allergy Verified 12/04/22 21:11 Home Medications Medication Instructions Recorded Confirmed Type gabapentin 300 mg capsule 300 mg PO TID 07/19/22 12/04/22 History atorvastatin 10 mg tablet 10 mg PO HS 08/28/22 12/04/22 History cholecalciferol (vitamin D3) 50 50 mcg PO DAILY 08/28/22 12/04/22 History mcg (2,000 unit) tablet multivitamin with minerals-ferrous 1 tab PO DAILY 08/28/22 11/24/22 History sulfate 4.5 mg iron tablet (One Daily Multivitamins with Minerals) tamsulosin 0.4 mg capsule 0.4 mg PO HS 08/28/22 11/24/22 History tiotropium 2.5 mcg-olodaterol 2.5 2 puff inhalation DAILY 08/28/22 12/04/22 History mcg/actuation mist for inhalation (Stiolto Respimat) acetaminophen 500 mg tablet 1,000 mg PO TID #0 tabs 09/06/22 11/24/22 Rx digoxin 125 mcg (0.125 mg) tablet 0.125 mg PO DAILY #0 tabs 09/06/22 12/04/22 Rx ferrous gluconate 324 mg (38 mg 324 mg PO BID@1000,2200 #0 tabs 09/06/22 12/04/22 Rx iron) tablet metoprolol succinate 25 mg 25 mg PO DAILY #0 tabs 09/06/22 12/04/22 Rx tablet,extended release 24 hr mirtazapine 7.5 mg tablet 7.5 mg PO HS #0 tabs 09/06/22 12/04/22 Rx food supplemt, lactose-reduced 50 ml PO BID 09/22/22 12/04/22 History 0.04 gram-1.05 kcal/mL oral liquid (Boost Breeze Nutritional) guaifenesin 100 mg/5 mL oral 200 mg PO Q4H PRN 09/22/22 11/24/22 History liquid (Robafen) nicotine 10 mg inhalation 1 inh inhalation 4-6XD PRN 09/22/22 11/24/22 History cartridge (Nicotrol) albuterol sulfate 90 mcg/actuation 2 puff inhalation Q4H PRN 10/05/22 12/04/22 History aerosol inhaler aspirin 81 mg capsule 162 mg PO DAILY 10/05/22 12/04/22 History loperamide 2 mg capsule 4 mg PO .COMPLEX PRN 10/05/22 12/04/22 History pantoprazole 40 mg tablet,delayed 40 mg PO BID 10/05/22 12/04/22 History release polyethylene glycol 3350 17 gram 17 g PO DAILY 10/05/22 12/04/22 History oral powder packet sennosides 8.6 mg tablet (Senokot) 17.2 mg PO HS 10/05/22 12/04/22 History furosemide 20 mg tablet (Lasix) 20 mg PO DAILY #7 tabs 10/26/22 12/04/22 Rx prednisone 20 mg tablet 40 mg PO DAILY #8 tabs 11/19/22 11/24/22 Rx ascorbic acid (vitamin C) 500 mg 500 mg PO 1XD 12/04/22 12/04/22 History tablet (Vitamin C) pantoprazole 40 mg tablet,delayed 40 mg PO 1XD 12/04/22 12/04/22 History release amoxicillin 875 mg-potassium 1 tab PO BID #7 tabs 12/06/22 Rx clavulanate 125 mg tablet prednisone 20 mg tablet 40 mg PO DAILY #6 tabs 12/06/22 Rx Exam Const General: cooperative Nutritional Appearance: thin Orientation: alert and awake HENMT Mouth: moist mucous membranes Eyes Conjunctivae: normal conjunctivae Sclera: normal sclerae Neck Neck: trachea midline and supple Resp Effort & Inspection: tachypneic Auscultation: diminished lung sounds bilaterally, rales bilaterally at the base and no rhonchi Cardio Rate: bradycardic and not tachycardic Rhythm: abnormal rhythm irregularly irregular GI Palpation: soft, not firm, no guarding, no masses, not rigid and nontender Skin General skin exam: no rashes or lesions noted Neuro General: patient alert, patient awake and tone normal Extrem General: no calf tenderness and no edema Results Labs 12/07/22 15:50 12/07/22 15:50 Labs: Laboratory Results - last 24 hr 12/07/22 12/07/22 12/07/22 15:50 15:50 15:50 WBC 9.82 RBC 4.35 L Hgb 13.1 L Hct 41.3 MCV 95 MCH 30.1 MCHC 31.7 L RDW 15.6 H Plt Count 192 MPV 10.1 Immature Gran % 0.9 Neutrophils % 78.4 Lymphocytes % 13.2 Monocytes % 7.2 Eosinophils % 0.1 Basophils % 0.2 Nucleated RBC % 0.0 Absolute Neutrophils 7.69 H Absolute Lymphocytes 1.30 Absolute Monocytes 0.71 Absolute Eosinophils 0.01 Absolute Basophils 0.02 Sodium 138 Potassium 4.5 Chloride 105 Carbon Dioxide 27.2 Anion Gap 5.8 BUN 45 H Creatinine 0.8 Est GFR (CKD-EPI 2020) 94.03 Glucose 73 L Calcium 9.0 Magnesium 2.0 Total Bilirubin 0.3 AST 44 H ALT 56 Alkaline Phosphatase 144 H Troponin I 50 NT-Pro-B Natriuret Pep 7333 H Total Protein 7.5 Albumin 2.9 L TSH 2.00 Last Vital Signs Temp 36.8 C 12/07/22 15:19 Pulse 50 L 12/07/22 16:01 Resp 18 12/07/22 16:03 BP 114/64 12/07/22 16:01 Pulse Ox 98 12/07/22 15:19 Time Spent Time spent with Patient: 40-54 minutes Time was spent: preparing to see the patient(eg.review tests), obtaining and/or reviewing separately otained hiistory, ordering medications,tests, procedures and indepentently interpreting results
[2022-12-07 18:03] LABS: Source Nasal/Nares
[2022-12-07] MEDS: cefTRIAXone 1 GM/50 ML BAG IVPB (18:10)
[2022-12-07] MEDS: levoFLOXacin 500 MG, levoFLOXacin 250 MG 750 MG PO (18:21)
[2022-12-07 18:27] LABS: Procalcitonin < 0.1 ng/mL
[2022-12-07 18:44] LABS: COVID-19 PCR Negative (Negative)
[2022-12-07 20:47] LABS: Troponin I < 50 ng/L (<or=60)
[2022-12-07] MEDS: Acetaminophen 500 MG TAB 1000 MG PO (21:27)
[2022-12-07] MEDS: Tamsulosin 0.4 MG CAPCR PO (21:28)
[2022-12-07] MEDS: Senna TAB 1 TAB PO (21:28)
[2022-12-07] MEDS: Gabapentin 300 MG CAP PO (21:28)
[2022-12-07] MEDS: Ferrous Gluconate 324 MG TAB PO (21:28)
[2022-12-07] MEDS: Atorvastatin 10 MG TAB PO (21:28)
[2022-12-07] MEDS: Mirtazapine 15 MG TAB 7.5 MG PO (21:28)
[2022-12-08] VITALS (9 sets, daily range): BP systolic 99–135; BP diastolic 60–78; PULSE 54–80; RESP 18–20; TEMP 36.2–36.5; O2SAT 91–98
[2022-12-08 07:02] LABS: Abs Immature Grans 0.07 10^3/uL (0.0-0.06); Absolute Monocyte Count 0.32 10^3/uL (0.1-0.8); Absolute Neutrophil Count 6.16 10^3/uL (1.2-6.7); HCT 38.5 % (40.0-50.0); HGB 12.5 g/dL (13.5-17.5); Lymphocytes % 8.4; MCH 30.1 pg (27.0-33.0); MCHC 32.5 % (32.0-36.0); MCV 93 fL (80-95); MPV 10.4 fL (8.0-11.0); Monocytes % 4.5; Neutrophils % 86.1; Platelet Count 188 10^3/uL (130-400); RBC 4.15 10^6/uL (4.36-5.78); RDW 15.4 % (11.8-14.1); RDW-SD 52.5 fL; WBC 7.15 10^3/uL (4.4-10.8)
[2022-12-08 07:15] LABS: Anion Gap 8.9 mmol/L (3-11); BUN 45 mg/dL (7-18); CO2 26.1 mmol/L (21.0-32.0); CREATININE 0.8 mg/dL (0.70-1.30); Calcium 8.3 mg/dL (8.5-10.1); Chloride 104 mmol/L (98-107); Estimated GFR 94.03 (mL/min/1.73m2); Glucose 140 mg/dL (74-106); Potassium 4.5 mmol/L (3.5-5.1); Sodium 139 mmol/L (136-145)
[2022-12-08] MEDS: Furosemide 20 MG TAB PO (08:32)
[2022-12-08] MEDS: Enoxaparin 30 MG/0.3 ML SYR SC (08:32)
[2022-12-08] MEDS: levoFLOXacin 500 MG, levoFLOXacin 250 MG 750 MG PO (08:32)
[2022-12-08] MEDS: Acetaminophen 500 MG TAB 1000 MG PO ×3 (08:33→20:43)
[2022-12-08] MEDS: Pantoprazole 40 MG TABCR PO (08:33)
[2022-12-08] MEDS: predniSONE 20 MG TAB 40 MG PO (08:33)
[2022-12-08] MEDS: Aspirin 81 MG CHEW 162 MG PO (08:33)
[2022-12-08] MEDS: Gabapentin 300 MG CAP PO ×3 (08:33→20:42)
[2022-12-08] MEDS: Cholecalciferol (Vitamin D3) 1,000 UNIT TAB 2000 UNITS PO (08:33)
[2022-12-08] MEDS: Multivitamin w/Minerals TAB 1 TAB PO (08:33)
[2022-12-08] MEDS: Tiotropium/Olodaterol 10 PUFF INHALER 2 PUFF IH (08:57)
--- NOTE | 2022-12-08 09:25 | PDOC.CMIN ---
Date of service: 12/08/22 Time of Service: 09:26 Care Management Initial Assmt Initial Assessment REASON FOR HOSPITALIZATION:: Pneumonia, Acute on chronic right-sided congestive heart failure PREVIOUS FUNCTIONAL STATUS/SOCIAL/FAMILY SUPPORTS:: Ilia resides in [facility] with his roommate, Lyudmila. He stated that she lives on one side and she lives on the other and is very helpful with his care. Ilia did have a daughter who fairly recently. He uses a cane and is followed by Palliative in the community for his chronic health issues. Ilia uses [facility] transportation and has home health nursing and PT services.. CURRENT FUNCTIONAL STATUS:: Ilia was sitting in his recliner eating an ice cream when CM met with him. He is awake, pleasant and easily engages in conversation. He is willing to follow the providers recommendation to discharge to [facility] for STR, before he discharges back to his apartment. ADVANCE DIRECTIVES:: On file. Chrissy ALCAZAR Has patient been provided with info about the portal/API?: Yes Did the patient sign up for the portal?: No CODE STATUS:: DNR/DNI INSURANCE COVERAGE / FINANCIAL ISSUES:: Medicare Medicaid CURRENT HOME/COMMUNITY SERVICES/EQUIPMENT:: home health services for RN,PT and OT PRIMARY CARE PHYSICIAN:: Silvina Perdue POTENTIAL DISCHARGE NEEDS:: resumption of [facility] RN/PT/OT/[employer] services, transportation, follow up with PCP and plan of care PATIENT/FAMILY EDUCATION NEEDS:: Review of discharge instructions, limitations, activity, follow up plan, discuss Ask Me Three TRANSPORTATION:: to be determined by disposition PLAN:: Anticipate Ilia will be discharge to SNF for STR when medically cleared by provider. Referral will be sent to [facility] at his preference. Ilia will follow up with his PCP and transport will be depending on disposition. CM will support Ilia and his discharge planning needs. [facility] All Active Problems (Updated 12/07/22 @ 18:06 by Kassandra Esparza NP) COPD exacerbation (Acute) Pneumonia (Acute) COPD exacerbation (Acute) Shortness of breath (Acute) Lung mass (Acute) Elevated troponin (Acute) Hypotension (Acute) DNR (do not resuscitate) (Acute) DNR, but would like trial of intubation. See 09/26 Note Acute bronchitis (Acute) Left foot pain (Acute) Palliative care patient (Acute) Underweight (Acute) Diastolic heart failure (Chronic) Closed intertrochanteric fracture of left femur (Acute) s/p IMN fixation (08/28/22) Fall (Acute) Blunt head trauma (Acute) Contusion of elbow, left (Acute) Contusion of left leg (Acute) Closed fracture of left hip (Acute) Mild cognitive impairment (Acute) Advanced care planning/counseling discussion (Acute) Literacy level of illiterate (Acute) Palliative care encounter (Acute) Acute on chronic right-sided congestive heart failure (Chronic) Pneumonia (Acute) Hypoxia (Acute) Depression (Chronic) Dental abscess (Acute) 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) Abnormal chest CT (Acute) Full code status (Acute) 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) CAP (community acquired pneumonia) (Acute) Generalized weakness (Acute) Skin tear of left elbow without complication (Acute) Chronic obstructive lung disease (Chronic) Tricuspid regurgitation (Chronic) CAD (coronary artery disease) (Chronic) Hypertension (Chronic) Medical History Abdominal pain Abnormal radiologic findings on diagnostic imaging of renal pelvis, ureter, or bladder Acute on chronic anemia Acute on chronic diastolic (congestive) heart failure Acute on chronic systolic CHF (congestive heart failure) Adenocarcinoma of esophagus From [facility]:Hx GI Cancer...EGD 04/2021 with friable mucosa. SDOne at that time because of GI blooed Afib Alcohol abuse Alcohol abuse, continuous drinking behavior Anemia Aspiration pneumonia Bilateral lower extremity edema CAD (coronary artery disease) of artery bypass graft Cerumen impaction CHF, acute on chronic Closed intertrochanteric fracture Confusion state COVID-19 COVID-19 Diabetes mellitus Difficulty reading Edema Encounter for colorectal cancer screening Epididymitis, right (08/02/16) Essential hypertension Failure to thrive Fall GERD (gastroesophageal reflux disease) GI bleed GI bleeding H/O malignant neoplasm of stomach Heart failure, left, with LVEF 41-49% History of fracture of left hip S/P IM NAIL DOS: 08/28/22 History of GI bleed Hoarseness Hydrocele, right (01/23/16) Hyperlipidemia Hypophosphatemia Kyphoscoliosis Low back pain Malnutrition Mild bibasilar atelectasis Pancreatitis Poor hygiene Prediabetes Protein malnutrition Pulmonary hypertension Recent weight loss Rib fractures Shortness of breath Solitary pulmonary nodule Tinnitus, left Tobacco abuse Weight loss Surgical History cardiac cath Coronary Artery Bypass Gaft (CABG) EGD - IV Sedation Esophagectomy H/O colonoscopy (2007) H/O colonoscopy (04/14/18) dr geller, sigmoid diverticulosis, repeat 10 years History of esophagogastroduodenoscopy (EGD) (09/2017) History of hydrocelectomy History of right inguinal hernia repair repair times two sugrical flap of unhealing wound Family History Mother No problems noted. Father No problems noted. Social History Smoking/Tobacco Use Status: Former Tobacco Use Smoking risk assessment performed?: Yes Alcohol Intake: former Drug use: Never Substance use type: does not use Housing: apartment Current gender identity: male What type of physical activity do you participate in: none Do you feel safe at home: Yes Do you feel safe in your relationship?: Yes Readmission Within the Past 30 Days Yes or No: Yes
[2022-12-08] MEDS: Ferrous Gluconate 324 MG TAB PO ×2 (10:11→21:45)
--- NOTE | 2022-12-08 14:07 | PT.INIE ---
Date of service: 12/08/22 Time of Service: 13:32 PT Notes Visit Reasons: Shortness of breath Inpatient Physical Therapy Evaluation Date: 12/08/2022 Referring Doctor:?Kassandra Esparza NP PT Orders: PT CONSULT: Eval/Treat Precautions: Fall. Standard.? Activity as tolerated. Patient Profile/Admitting Diagnosis:?? Patient is a 72-year-old male with complex medical history who presented to the ED on 12/07/2022 due to shortness of breath and generalized weakness.? Patient is admitted to [facility] for management of pneumonia, acute on chronic right-sided heart failure, COPD exacerbation, atrial fibrillation. PMHX: All Active Problems? COPD exacerbation (Acute) Shortness of breath (Acute) Lung mass (Acute) Elevated troponin (Acute) Hypotension (Acute) DNR (do not resuscitate) (Acute) DNR, but would like trial of intubation. See 09/26 Note Acute bronchitis (Acute) Left foot pain (Acute) Palliative care patient (Acute) Underweight (Acute) Diastolic heart failure (Chronic) Closed intertrochanteric fracture of left femur (Acute) s/p IMN fixation (08/28/22) Fall (Acute) Blunt head trauma (Acute) Contusion of elbow, left (Acute) Contusion of left leg (Acute) Closed fracture of left hip (Acute) Mild cognitive impairment (Acute) Advanced care planning/counseling discussion (Acute) Literacy level of illiterate (Acute) Palliative care encounter (Acute) Acute on chronic right-sided congestive heart failure (Acute) Pneumonia (Acute) Hypoxia (Acute) Depression (Chronic) Dental abscess (Acute) 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 Abdominal pain Abnormal radiologic findings on diagnostic imaging of renal pelvis, ureter, or bladder Acute on chronic anemia Acute on chronic diastolic (congestive) heart failure Acute on chronic systolic CHF (congestive heart failure) Adenocarcinoma of esophagus From [facility] [place]:Hx GI Cancer...EGD 04/2021 with friable mucosa. SDOne at that time because of GI blooedAfib Alcohol abuse Alcohol abuse, continuous drinking behavior Anemia Aspiration pneumonia Bilateral lower extremity edema CAD (coronary artery disease) of artery bypass graft Cerumen impaction CHF, acute on chronic Closed intertrochanteric fracture Confusion state COVID-19 COVID-19 Diabetes mellitus Difficulty reading Edema Encounter for colorectal cancer screening Epididymitis, right (08/02/16) Essential hypertension Failure to thrive Fall GERD (gastroesophageal reflux disease) GI bleed GI bleeding H/O malignant neoplasm of stomach Heart failure, left, with LVEF 41-49% History of fracture of left hip S/P IM NAIL DOS: 08/28/22History of GI bleed Hoarseness Hydrocele, right (01/23/16) Hyperlipidemia Hypophosphatemia Kyphoscoliosis Low back pain Malnutrition Mild bibasilar atelectasis Pancreatitis Poor hygiene Prediabetes Protein malnutrition Pulmonary hypertension Recent weight loss Rib fractures Shortness of breath Solitary pulmonary nodule Tinnitus, left Tobacco abuse Weight loss Surgical History? cardiac cath Coronary Artery Bypass Gaft (CABG) EGD - IV Sedation Esophagectomy H/O colonoscopy (2007) H/O colonoscopy (04/14/18) dr geller, sigmoid diverticulosis, repeat 10 years History of esophagogastroduodenoscopy (EGD) (09/2017) History of hydrocelectomy History of right inguinal hernia repair repair times two surgical flap of unhealing wound Social History/Home Situation:? Lives in an apartment.? Friend Lyudmila who lives in the apartment across from him helps out with?grocery shopping.? Able to heat up meals on wheels.? States that he walks with FWW indoors. Has 5 steps to enter the apartment building with a rail on one side. Equipment Owned/DME: FWW x 2 Subjective:? Does not report shortness of breath as he did on admission. Denies headache, chest pain, and lightheadedness throughout session. Objective:? General Observation: Pleasant and cooperative, frail-appearing. Mental Status: A&Ox2 Pain: Denies ROM: Right Upper Extremity: ? Shoulder Flexion WFL. Shoulder abduction WFL. Elbow flexion WFL. Wrist flexion WFL. Functional opening and closing of hand WFL. Left Upper Extremity:? Shoulder Flexion WFL. Shoulder abduction WFL. Elbow flexion WFL. Wrist flexion WFL. Functional opening and closing of hand WFL. Right Lower Extremity: Hip flexion WFL. Hip abduction WFL. Knee flexion WFL. Ankle dorsiflexion WFL. Ankle plantarflexion WFL. Left Lower Extremity: Hip flexion WFL. Hip abduction WFL. Knee flexion WFL. Ankle dorsiflexion WFL. Ankle plantarflexion WFL. Strength: Right Upper Extremity: Shoulder flexors 3/5. Shoulder abductors 3/5. Elbow flexors 4/5. Elbow extensors 4/5. Employee Benefits Coordinator strong. Left Upper Extremity: Shoulder flexors 3/5. Shoulder abductors 3/5. Elbow flexors 4/5. Elbow extensors 4/5. Employee Benefits Coordinator strong. Right Lower Extremity: Hip flexors 4-/5.? Hip flexors left 4-/5. Hip abductors 4-/5. Knee flexors 4-/5. Knee extensors 4-/5. Ankle dorsiflexors 4-/5. Ankle plantarflexors 4/5. Left Lower Extremity: Hip flexors 4-/5.? Hip flexors left 4-/5. Hip abductors 4-/5. Knee flexors 4-/5. Knee extensors 4-/5. Ankle dorsiflexors 4-/5. Ankle plantarflexors 4/5. Bed Mobility/Transfers: sit-stand: contact guard assist stand-sit: contact guard assist with FWW sit-supine: contact guard assist with FWW Gait:? 20 feet x 4 with contact guard assist,? using FWW with wheelchair follow. Glenys slowed.? Oxygen saturation aboe 90% on RA with, HR WNL. Reports feeling more secured with walking using FWW. SOB resolves with rest. Balance:? Static Sitting: Normal Dynamic Sitting: Good Static Standing: Fair Dynamic Standing: Fair Special Tests: Mobility Limitations Standardized Measure [facility] 6 clicks Basic Mobility Inpatient Short Form: Raw Score: 19? CMS Score: 42% deficit Informed Consent/Education:? Patient instructed in purpose of PT consult and plan of care. Assessment:?? Patient is a 72-year-old male with complex medical history who presented to the ED on 12/07/2022 due to shortness of breath and generalized weakness.? Patient is admitted to [facility] for management of pneumonia, acute on chronic right-sided heart failure, COPD exacerbation, atrial fibrillation. Patient presents with clinical signs and symptoms consistent with current/admitting diagnoses that have resulted to mobility limitations, gait instability, generalized weakness, and overall ADL decline as demonstrated by the following impairment level findings: 1. Decreased strength to B UE/LE major muscle groups 2. Impaired sitting/standing balance 3. Impaired activity tolerance 4. Shortness of breath Impairments are contributing to the following functional limitations: 1. Decline in bed mobility skills 2. Decline in transfer skills 3. Difficulty with ambulation without assistive device and physical assistance 4. Increased completion time for mobility ADL performance 5. Increased risk for falls 6. Difficulty with managing steps alone safely Patient is assessed as a 54981 moderate complexity based on the following: History: 72-year-old female with past medical history as indicated above Examination: Demonstrable impairment in strength, balance, and mobility level with underlying impairments and functional limitations as exhibited above as well as deficit score of 42% utilizing the [facility] Mobility Inpatient Short Form Presentation: Evolving Decision Makin moderate complexity Goals: Goals X1 week 1. Supine-Sit independent 2. Sit-Supine independent 3. Sit-Stand independent with FWW 4. Stand-Sit independent with FWW 5. Bed-Chair independent with FWW 6. Chair-Bed independent with FWW 7. Independent gait on level surface with use of FWW for at least 200 feet without report of pain nor dyspnea 8. Independent stair negotiation while holding onto bilateral rails for at least 5 steps without report of pain nor dyspnea 9. Independent with home exercise program 10. Good static and dynamic standing balance/tolerance Plan of Care/Treatment Plan: 1-2x/day, 7 days/week x 1 week. Plan of care has been reviewed with the ST[employer] B[employer]ER providing the service under Physical Therapy direction. Initiate Physical Therapy intervention for strengthening, bed mobility, transfers, gait, stairs, balance training, use of assistive device. DISCHARGE RECOMMENDATIONS: Patient will benefit from home health PT services in order to progress mobility level using least restrictive assistive ambulatory device, assess home safety, identify additional equipment needs, and establish a functional maintenance program that will increase ability of patient to remain at home. TREATMENT CODE/TIME: 66825 x 20 minutes, 48329 x 12 minutes beginning at 13:32 PM. Thank you for the opportunity to participate in the care of this patient. Savanna Banks PT, DPT, CLT [facility] [place], [place]
--- NOTE | 2022-12-08 20:09 | W.PM.PROGNOT ---
Date of Service Date of service: 12/08/22 Time of Service: 20:09 Subjective Subjective Interval history since last seen: Patient was admitted late yesterday because of acute shortness of breath. He has longstanding COPD and breathing problems. Today he seems somewhat discouraged as things were not all that much improved. The discussion about longterm placement occurred and he seems willing to consider that. Telemetry today showed several pauses and slow heart rate episodes. He has been asymptomatic with that. Exam Narrative Exam Narrative: On exam he is disheveled and somewhat despondent. He does not seem at all happy with his lack of progress. He states he does not feel all that much better. His lung exam does show air movement in the upper lung echols but some diffuse rhonchi. Relatively good air movement. Heart sounds he has a hyperdynamic chest with loud S1 no significant murmur there is some splitting of S1. Abdomen is soft and nontender the lower extremities show no significant edema. He overall has evidence of muscle wasting and cachexia. Objective Last Vital Signs Temp 36.5 C 12/08/22 15:44 Pulse 64 12/08/22 16:56 Resp 18 12/08/22 15:44 BP 100/64 12/08/22 15:44 Pulse Ox 91 L 12/08/22 18:03 Laboratory Results - last 24 hr 12/07/22 12/08/22 12/08/22 20:24 06:04 06:04 WBC 7.15 RBC 4.15 L Hgb 12.5 L Hct 38.5 L MCV 93 MCH 30.1 MCHC 32.5 RDW 15.4 H Plt Count 188 MPV 10.4 Immature Gran % 1.0 Neutrophils % 86.1 Lymphocytes % 8.4 Monocytes % 4.5 Eosinophils % 0.0 Basophils % 0.0 Nucleated RBC % 0.0 Absolute Neutrophils 6.16 Absolute Lymphocytes 0.60 L Absolute Monocytes 0.32 Absolute Eosinophils 0.00 Absolute Basophils 0.00 Sodium 139 Potassium 4.5 Chloride 104 Carbon Dioxide 26.1 Anion Gap 8.9 BUN 45 H Creatinine 0.8 Est GFR (CKD-EPI 2020) 94.03 Glucose 140 H Calcium 8.3 L Troponin I < 50 Objective Narrative Objective Narrative: End-stage COPD. He looks like he is ready to give up. He is somewhat desponded about having to live in a longterm facility but seems agreeable to it. This recent COPD exacerbation is likely related to the humidity and difficult breathing conditions lately. Continue present medications. He is overall well compensated satting 95% on room air. Arrhythmia/bradycardia. He is having an abnormal heartbeat with some pauses. Elected to DC the digoxin and change his Toprol-XL to short acting metoprolol 12.5 mg every 8 hours. We will continue to monitor on telemetry. Remains DNR/DNI. Time Spent with Patient Time Spent with Patient: 35-49 minutes Time was spent: preparing to see the patient(eg.review tests), obtaining and/or reviewing separately otained hiistory, ordering medications,tests, procedures, referring, communicating with other health early breastfeeding care specialist, indepentently interpreting results and counseling the patient
[2022-12-08] MEDS: Tamsulosin 0.4 MG CAPCR PO (21:45)
[2022-12-08] MEDS: Atorvastatin 10 MG TAB PO (21:45)
[2022-12-08] MEDS: Senna TAB 1 TAB PO (21:46)
[2022-12-08] MEDS: Mirtazapine 15 MG TAB 7.5 MG PO (21:46)
[2022-12-08 23:08] LABS: Legionella Ag Detection Urine Negative (Negative)
[2022-12-09 01:18] VITALS: PULSE 64
[2022-12-09 03:56] VITALS: BP 120/66; PULSE 59; RESP 16; TEMP 36.5; O2SAT 94
[2022-12-09 04:35] VITALS: BP 143/83
[2022-12-09] MEDS: Metoprolol 12.5 MG TAB PO ×2 (04:35→11:50)
[2022-12-09 07:00] VITALS: PULSE 74
[2022-12-09 07:12] LABS: Abs Immature Grans 0.11 10^3/uL (0.0-0.06); Absolute Basophil Count 0.03 10^3/uL (0.0-0.2); Absolute Eosinophil Count 0.03 10^3/uL (0.0-0.7); Absolute Lymphocyte Count 1.37 10^3/uL (1.2-3.4); Absolute Monocyte Count 0.61 10^3/uL (0.1-0.8); Absolute Neutrophil Count 5.38 10^3/uL (1.2-6.7); Basophils % 0.4; Eosinophils % 0.4; HCT 40.7 % (40.0-50.0); HGB 13.4 g/dL (13.5-17.5); Immature Grans % 1.5; Lymphocytes % 18.2; MCH 30.5 pg (27.0-33.0); MCHC 32.9 % (32.0-36.0); MCV 93 fL (80-95); MPV 9.8 fL (8.0-11.0); Monocytes % 8.1; Neutrophils % 71.4; Platelet Count 207 10^3/uL (130-400); RDW 14.9 % (11.8-14.1); RDW-SD 50.4 fL; WBC 7.53 10^3/uL (4.4-10.8)
[2022-12-09 07:30] VITALS: BP 132/72; PULSE 56; RESP 20; TEMP 36; O2SAT 99
[2022-12-09] MEDS: Multivitamin w/Minerals TAB 1 TAB PO (07:31)
[2022-12-09] MEDS: Aspirin 81 MG CHEW 162 MG PO (07:31)
[2022-12-09] MEDS: Enoxaparin 30 MG/0.3 ML SYR SC (07:31)
[2022-12-09] MEDS: Acetaminophen 500 MG TAB 1000 MG PO ×2 (07:31→13:21)
[2022-12-09] MEDS: Polyethylene Glycol 3350 17 GM PACKET PO (07:31)
[2022-12-09] MEDS: Cholecalciferol (Vitamin D3) 1,000 UNIT TAB 2000 UNITS PO (07:32)
[2022-12-09] MEDS: Furosemide 20 MG TAB PO (07:32)
[2022-12-09] MEDS: Pantoprazole 40 MG TABCR PO (07:32)
[2022-12-09] MEDS: predniSONE 20 MG TAB 40 MG PO (07:32)
[2022-12-09] MEDS: levoFLOXacin 500 MG, levoFLOXacin 250 MG 750 MG PO (07:33)
[2022-12-09] MEDS: Ferrous Gluconate 324 MG TAB PO (07:33)
[2022-12-09] MEDS: Gabapentin 300 MG CAP PO ×2 (07:33→13:21)
[2022-12-09 07:41] LABS: Anion Gap 9.5 mmol/L (3-11); BUN 38 mg/dL (7-18); CO2 25.5 mmol/L (21.0-32.0); CREATININE 0.9 mg/dL (0.70-1.30); Calcium 9.1 mg/dL (8.5-10.1); Chloride 105 mmol/L (98-107); Estimated GFR 90.74 (mL/min/1.73m2); Glucose 82 mg/dL (74-106); Potassium 4.4 mmol/L (3.5-5.1); Sodium 140 mmol/L (136-145)
[2022-12-09] MEDS: Tiotropium/Olodaterol 10 PUFF INHALER 2 PUFF IH (08:13)
--- NOTE | 2022-12-09 08:24 | PT.INTREAT ---
PT Notes Visit Reasons: Shortness of breath 12/09/22 PRECAUTIONS: Fall, standard, activity as tolerated SUBJECTIVE: Patient supine in bed, reports already in pain, agreeable to therapy but not agreeable to walk without pain medication. Pt. see again for second time closer to noon. Pt in recliner and agreeable to therapy. OBJECTIVE: ? PAIN: yes ? BED MOBILITY/TRANSFERS? Rolling L/R: SBA Supine-sit: SBA ? Sit-supine: SBA Sit to stand: SBA Stand to sit: SBA GAIT? Assistive Device: FWW? Weight bearing: WBAT Assist: SBA W/C follow? Distance:? 20', 30', 30' AM/? 30', 30', 60', 60' PM? Deviation: Cueing for increased step length, and step height ? THERACT:? Patient participates in bed mobility training, transfers inside patient's room.? ASSESSMENT:? Patient tolerates therapy well, resting in recliner at end of morning session. Pt. much more alert and engaged in treatment; tolerated longer distance and duration w/out LOVE. PLAN: Continue global strengthening per plan of care TREATMENT CODE/TIME: 69143 [place], [address] gait training (8:15-8:40am-11:23-11:46pm)
--- NOTE | 2022-12-09 09:57 | CMPROGNOTE_ITS ---
Date of service: 12/09/22 Time of Service: 09:57 Care Management Progress Note Progress Note Text Progress Note Text: S/O: Ilia remains agreeable to discharge to [facility] for a STR stay. CM is coordinating discharge for 2pm today. A: 72 year old male admitted to [facility] on 12/07/22 for Pneumonia, Acute on chronic right-sided congestive heart failure P:?Anticipate Ilia will be discharge to SNF for STR when medically cleared by provider. Referral will be sent to [facility] at his preference. Ilia will follow up with his PCP and transport will be depending on disposition.? CM will support Ilia and his discharge planning needs.
[2022-12-09 11:12] VITALS: BP 115/75; PULSE 64; RESP 18; TEMP 36.4; O2SAT 98
--- NOTE | 2022-12-09 12:42 | W.PM.DS.N ---
Date of service: 12/09/22 Time of Service: 12:43 DS: Diagnosis Discharge Diagnosis (1) Pneumonia: Status: Acute (2) Acute on chronic right-sided congestive heart failure: Status: Chronic (3) Chronic obstructive lung disease: Status: Chronic (4) Afib: (5) Bradycardia: Status: Resolved Discharge Plan Disposition Patient Disposition: Group Home Facility(SNF) Condition: Stable Discharge Details Reason For Visit: Shortness of breath Admit Date/Time: 12/07/22 17:46 Admit Provider: Shakila Mayberry Attending Provider: Shakila Mayberry Primary [facility] Course Hospital Course: Mr Kang is a 72 year old male with PMHx of non-oxygen dependent COPD with a recent exacerbation due to pneumonia, pulmonary fibrosis, chronic R-sided CHF, Afib not on anticoagulation due to h/o GI bleed, cognitive impairment, who was discharged from our facility on on 12/06/22 but returned on 12/07/22 after an admission for a pneumonia and COPD exacerbation, having persistent shortness of breath at home. At the time of discharge on 12/06/22, the patient was not willing to consider a SNF, but this time around he was. He was afebrile, not requiring oxygen His CXR showed stable bibasilar infiltrates vs atelectasis. He did have some mild peripheral edema, but not pulmonary edema. He did receive a dose of IV furosemide in the ED. His antibiotic was switched to levofloxacin since he did was still symptomatic after being discharged home on augmentin. He does feel quite a bit better at this time. Additionally, on this admission, he was noted to be in Afib with low ventricular response. His digoxin level was adequate, but he was bradycardic to the 40s while awake on his combination of metoprolol and digoxin. Metoprolol was held. Digoxin continued. Bradycardia persisted. At that point, the decision was made to d/c digoxin and resume metoprolol once HR permitted. He is being discharged to the [facility] today with metoprolol 37.5 mg PO daily. The patient is stable for discharge with two more days of levofloxacin, a slow prednisone taper. He is encouraged to use incentive spirometry and acapella. Care for patient as well as completion of his discharge summary on day of discharge took 45 minutes. Home Meds and New Rx's Prescriptions: New levofloxacin 750 mg Tablet 750 mg PO DAILY Qty: 0 0RF prednisone 10 mg tablet See Rx Instructions .ROUTE .COMPLEX Qty: 18 0RF Rx Instructions: Prednisone 30 mg PO daily x 3 days, then 20 mg PO daily x 3 days, then 10 mg PO daily x 3 days, then stop Continued Boost Breeze Nutritional 0.04-1.05 gram-kcal/mL liquid 50 ml PO BID Nicotrol 10 mg cartridge 1 inh inhalation 4-6XD PRN guaifenesin [Robafen] 100 mg/5 mL liquid 200 mg PO Q4H PRN aspirin 81 mg capsule 162 mg PO DAILY polyethylene glycol 3350 17 gram powder in packet 17 g PO DAILY sennosides [Senokot] 8.6 mg tablet 17.2 mg PO HS albuterol sulfate 90 mcg/actuation HFA aerosol inhaler 2 puff inhalation Q4H PRN loperamide 2 mg capsule 4 mg PO .COMPLEX PRN Rx Instructions: 4 mg orally after first loose stool, then 1 capsule after subsequent loose stools. Maximum daily dose is 16mg PRN; gabapentin 300 mg capsule 300 mg PO TID Patient Comments: Take 1 capsule by mouth three times a day ascorbic acid (vitamin C) [Vitamin C] 500 mg tablet 500 mg PO 1XD Patient Comments: Take 1 tablet by mouth every other day take with iron pantoprazole 40 mg tablet,delayed release (DR/EC) 40 mg PO 1XD Patient Comments: Take 1 tablet by mouth once a day One Daily Multi-Vit w-Mineral 4.5 mg iron tablet 1 tab PO DAILY cholecalciferol (vitamin D3) 50 mcg (2,000 unit) tablet 50 mcg PO DAILY tamsulosin 0.4 mg capsule 0.4 mg PO HS Stiolto Respimat 2.5-2.5 mcg/actuation mist 2 puff INHALATION DAILY atorvastatin 10 mg tablet 10 mg PO HS acetaminophen 500 mg Tablet 1,000 mg PO TID Qty: 0 0RF ferrous gluconate 324 mg (38 mg iron) Tablet 324 mg PO BID@1000,2200 Qty: 0 0RF mirtazapine 7.5 mg tablet 7.5 mg PO HS Qty: 0 0RF Patient Comments: Take 1 tablet by mouth at bedtime furosemide [Lasix] 20 mg tablet 20 mg PO DAILY Qty: 7 0RF Changed metoprolol succinate 25 mg Tablet Extended Release 24 Hr 37.5 mg PO DAILY Qty: 0 0RF Rx Instructions: hold for SBP<100 or HR<60 Discontinued prednisone 20 mg tablet 40 mg PO DAILY Qty: 8 0RF prednisone 20 mg tablet 40 mg PO DAILY Qty: 6 0RF amoxicillin-pot clavulanate 875-125 mg tablet 1 tab PO BID Qty: 7 0RF digoxin 125 mcg (0.125 mg) Tablet 0.125 mg PO DAILY Qty: 0 0RF pantoprazole 40 mg tablet,delayed release (DR/EC) 40 mg PO BID Discharge Instructions Instructions: Furosemide (By mouth), Prednisone (By mouth), Levofloxacin (By mouth), Heart Failure (DC), COPD (Chronic Obstructive Pulmonary Disease) (DC), Low-Sodium Diet (DC) Stand Alone Forms: Nursing Discharge Form Referrals: Majo Ayala MD [ [facility] STAFF PHYSICIAN] - 12/10/22 10:30 am Silvina Perdue MD [Primary Care Provider] - (Follow up per Health&Rehab ) Activity:: Activity as Tolerated Equipment/Supplies:: No Equipment Needed Diet:: Low Sodium Discharge Orders Discharge Orders: Discharge Order (Routine); Ordered 12/09/22 Ordered By: Shakila Mayberry DS: Summary Time Spent with Patient providing and/or coordinating discharge services: Greater than 30 minutes Status at Discharge Functional status at discharge: uses cane/walker Overall status at discharge: patient is progressing back to baseline Mental Status: mental status grossly normal Speech and Movement: speech and movement normal Mood: congruent mood Affect: normal affect Exam Narrative Exam Narrative: General: Pleasant elderly male who is sitting up comfortably in a chair on room air, A&Ox2 (looks at the board for the date; does not know the year or the president), no dyspnea/tachypnea/cyanosis on RA HEENT: EOMI, MMM Heart: irregularly irregular rhythm Lungs: Diminished breath sounds B Abdomen: soft, nontender, nondistended Extremities: 1+ pitting edema to B ankles Psych Mental Status: mental status grossly normal Speech and Movement: speech and movement normal Mood: congruent mood Affect: normal affect DS: Data Vitals/I&O Vitals and I&O: Vital Signs Temperature 36.4 C L 12/09/22 11:12 Temperature Source Tympanic 12/09/22 11:12 Pulse 64 12/09/22 11:12 Pulse Rhythm Irregular 12/09/22 07:10 Pulse 67 12/07/22 18:46 Respiratory Rate 18 12/09/22 11:12 Respiratory Effort Labored, Pursed Lip 12/09/22 07:10 Respiratory Depth Shallow 12/09/22 07:10 Respiratory Pattern Tachypnea 12/09/22 07:10 Blood Pressure 115/75 12/09/22 11:12 Blood Pressure Mean 118 12/07/22 18:46 Blood Pressure Position Sitting 12/07/22 15:19 Pulse Oximetry 98 12/09/22 11:12 Oxygen Delivery Method Room Air 12/09/22 11:12 Oxygen Flow Rate 0 12/09/22 11:12 Pain Level 0 12/09/22 11:12 Intake & Output 12/08/22 12/09/22 12/09/22 23:59 11:59 23:59 Intake Total 980 / 1030 300 / 300 Output Total 450 / 1250 150 / 150 Balance 530 / -220 -150 / 150 300 / 150 Intake: Oral 980 / 980 300 / 300 Output: Urine 450 / 1250 150 / 150 Other: Urine Color Yellow Yellow Urine Appearance Clear Clear Urine Odor None None Stool Size Large Stool Characteristics Formed Voiding Methods Urinal Data Completed and Pending Completed studies during hospitalization [Text1]: CXR: No significant change in basilar pneumonia/atelectasis. Labs on day of discharge: Labs from last 24 hours 12/09/22 12/09/22 12/07/22 06:33 06:33 19:15 WBC 7.53 RBC 4.40 Hgb 13.4 L Hct 40.7 MCV 93 MCH 30.5 MCHC 32.9 RDW 14.9 H Plt Count 207 MPV 9.8 Immature Gran % 1.5 Neutrophils % 71.4 Lymphocytes % 18.2 Monocytes % 8.1 Eosinophils % 0.4 Basophils % 0.4 Nucleated RBC % 0.0 Absolute Neutrophils 5.38 Absolute Lymphocytes 1.37 Absolute Monocytes 0.61 Absolute Eosinophils 0.03 Absolute Basophils 0.03 Sodium 140 Potassium 4.4 Chloride 105 Carbon Dioxide 25.5 Anion Gap 9.5 BUN 38 H Creatinine 0.9 Est GFR (CKD-EPI 2020) 90.74 Glucose 82 Calcium 9.1 Urine Legionella Ag Negative Preliminary micro results at discharge 12/07/22 18:10 Blood Culture - Preliminary Blood NO GROWTH 24 HOURS 12/07/22 18:00 Blood Culture - Preliminary [facility] NO GROWTH [facility]RS [facility] Active Problems (Updated 12/09/22 @ 12:44 by Shakila Mayberry MD) COPD exacerbation (Acute) Pneumonia (Acute) COPD exacerbation (Acute) Shortness of breath (Acute) Lung mass (Acute) Elevated troponin (Acute) Hypotension (Acute) DNR (do not resuscitate) (Acute) DNR, but would like trial of intubation. See 09/26 Note Acute bronchitis (Acute) Left foot pain (Acute) Palliative care patient (Acute) Underweight (Acute) Diastolic heart failure (Chronic) Closed intertrochanteric fracture of left femur (Acute) s/p IMN fixation (08/28/22) Fall (Acute) Blunt head trauma (Acute) Contusion of elbow, left (Acute) Contusion of left leg (Acute) Closed fracture of left hip (Acute) Mild cognitive impairment (Acute) Advanced care planning/counseling discussion (Acute) Literacy level of illiterate (Acute) Palliative care encounter (Acute) Acute on chronic right-sided congestive heart failure (Chronic) Pneumonia (Acute) Hypoxia (Acute) Depression (Chronic) Dental abscess (Acute) 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) Abnormal chest CT (Acute) Full code status (Acute) 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.EGD 04/2021 with friable mucosa. SDOne at that time because of GI blooed Afib Alcohol abuse Alcohol abuse, continuous drinking behavior Anemia Aspiration pneumonia Bilateral lower extremity edema CAD (coronary artery disease) of artery bypass graft Cerumen impaction CHF, acute on chronic Closed intertrochanteric fracture Confusion state COVID-19 COVID-19 Diabetes mellitus Difficulty reading Edema Encounter for colorectal cancer screening Epididymitis, right (08/02/16) Essential hypertension Failure to thrive Fall GERD (gastroesophageal reflux disease) GI bleed GI bleeding H/O malignant neoplasm of stomach Heart failure, left, with LVEF 41-49% History of fracture of left hip S/P IM NAIL DOS: 08/28/22 History of GI bleed Hoarseness Hydrocele, right (01/23/16) Hyperlipidemia Hypophosphatemia Kyphoscoliosis Low back pain Malnutrition Mild bibasilar atelectasis Pancreatitis Poor hygiene Prediabetes Protein malnutrition Pulmonary hypertension Recent weight loss Rib fractures Shortness of breath Solitary pulmonary nodule Tinnitus, left Tobacco abuse Weight loss Surgical History cardiac cath Coronary Artery Bypass Gaft (CABG) EGD - IV Sedation Esophagectomy H/O colonoscopy (2007) H/O colonoscopy (04/14/18) dr geller, sigmoid diverticulosis, repeat 10 years History of esophagogastroduodenoscopy (EGD) (09/2017) History of hydrocelectomy History of right inguinal hernia repair repair times two sugrical flap of unhealing wound Family History Mother No problems noted. Father No problems noted. Social History Smoking/Tobacco Use Status: Former Tobacco Use Smoking risk assessment performed?: Yes Alcohol Intake: former Drug use: Never Substance use type: does not use Housing: apartment Current gender identity: male What type of physical activity do you participate in: none Do you feel safe at home: Yes Do you feel safe in your relationship?: Yes Time Spent with Patient Time Spent with Patient: 45-69 minutes Time was spent: preparing to see the patient(eg.review tests), obtaining and/or reviewing separately otained hiistory, ordering medications,tests, procedures, referring, communicating with other health career education teacher, indepentently interpreting results, counseling the patient and care coordination
--- NOTE | 2022-12-09 12:47 | PDOC.CMDIS ---
Date of service: 12/09/22 Time of Service: 12:47 LACE Index Scoring Tool Questions: Length of Stay (in days): 2 Was the patient admitted via the E.D.?: Yes Comorbidities: Chronic Pulmonary Disease and Any Tumor (Lung Mass) E.D. Visits: 9 Answers: Total Score: 14 Risk of Readmission: High Risk Care Management Discharge Plan Reason for Hospitalization: Pneumonia, Acute on chronic right-sided congestive heart failure Discharge Plan: Ilia is discharged to [facility] for STR. He is transported via facility w/c van. He will follow up with community providers and his discharge plan of care as instructed. Patient/Family Education Needs: Review discharge instructions, limitations, medications and plan to follow up with facility/community providers. Discuss ask me three. Services Needed at Discharge: [facility]
[2022-12-09 23:18] LABS: Streptococcus Pneumoniae Ag, U Negative (Negative)
--- NOTE | 2022-12-14 11:11 | PT.INDS ---
PT Notes Visit Reasons: Shortness of breath Physical Therapy Inpatient Discharge Summary Date: 12/09/2022 Dates of service: 12/08/2022 through 12/09/2022 This is a clinical summary of care provided for the duration of dates listed above. No charge was made in the completion of this documentation. Referring Doctor:?Kassandra Esparza,? SCRUB NURSE PT Orders: PT CONSULT: Eval/Treat Precautions: Fall. Standard.? Activity as tolerated. Patient Profile/Admitting Diagnosis:?? Patient is a 72-year-old male with complex medical history who presented to the ED on 12/07/2022 due to shortness of breath and generalized weakness.? Patient is admitted to [facility] for management of pneumonia, acute on chronic right-sided heart failure, COPD exacerbation, atrial fibrillation. PMHX: All Active Problems? COPD exacerbation (Acute) Shortness of breath (Acute) Lung mass (Acute) Elevated troponin (Acute) Hypotension (Acute) DNR (do not resuscitate) (Acute) DNR, but would like trial of intubation. See 09/26 Note Acute bronchitis (Acute) Left foot pain (Acute) Palliative care patient (Acute) Underweight (Acute) Diastolic heart failure (Chronic) Closed intertrochanteric fracture of left femur (Acute) s/p IMN fixation (08/28/22) Fall (Acute) Blunt head trauma (Acute) Contusion of elbow, left (Acute) Contusion of left leg (Acute) Closed fracture of left hip (Acute) Mild cognitive impairment (Acute) Advanced care planning/counseling discussion (Acute) Literacy level of illiterate (Acute) Palliative care encounter (Acute) Acute on chronic right-sided congestive heart failure (Acute) Pneumonia (Acute) Hypoxia (Acute) Depression (Chronic) Dental abscess (Acute) 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 Abdominal pain Abnormal radiologic findings on diagnostic imaging of renal pelvis, ureter, or bladder Acute on chronic anemia Acute on chronic diastolic (congestive) heart failure Acute on chronic systolic CHF (congestive heart failure) [place] [facility] [place]Hx GI Cancer...EGD 04/2021 with friable mucosa. SDOne at that time because of GI blooedAfib Alcohol abuse Alcohol abuse, continuous drinking behavior Anemia Aspiration pneumonia Bilateral lower extremity edema CAD (coronary artery disease) of artery bypass graft Cerumen impaction CHF, acute on chronic Closed intertrochanteric fracture Confusion state COVID-19 COVID-19 Diabetes mellitus Difficulty reading Edema Encounter for colorectal cancer screening Epididymitis, right (08/02/16) Essential hypertension Failure to thrive Fall GERD (gastroesophageal reflux disease) GI bleed GI bleeding H/O malignant neoplasm of stomach Heart failure, left, with LVEF 41-49% History of fracture of left hip S/P IM NAIL DOS: 08/28/22History of GI bleed Hoarseness Hydrocele, right (01/23/16) Hyperlipidemia Hypophosphatemia Kyphoscoliosis Low back pain Malnutrition Mild bibasilar atelectasis Pancreatitis Poor hygiene Prediabetes Protein malnutrition Pulmonary hypertension Recent weight loss Rib fractures Shortness of breath Solitary pulmonary nodule Tinnitus, left Tobacco abuse Weight loss Surgical History? cardiac cath Coronary Artery Bypass Gaft (CABG) EGD - IV Sedation Esophagectomy H/O colonoscopy (2007) H/O colonoscopy (04/14/18) dr geller, sigmoid diverticulosis, repeat 10 years History of esophagogastroduodenoscopy (EGD) (09/2017) History of hydrocelectomy History of right inguinal hernia repair repair times two surgical flap of unhealing wound Social History/Home Situation:? Lives in an apartment.? Friend Lyudmila who lives in the apartment across from him helps out with?grocery shopping.? Able to heat up meals on wheels.? States that he walks with FWW indoors.? Has 5 steps to enter the apartment building with a rail on one side. Equipment Owned/DME: FWW x 2 Subjective:? NT. See most recent INDUSTRIAL REFRIGERATION MECHANIC notes. Objective:? General Observation: NT. See most recent INDUSTRIAL REFRIGERATION MECHANIC notes. Mental Status: NT. See most recent INDUSTRIAL REFRIGERATION MECHANIC notes. Pain: NT. See most recent INDUSTRIAL REFRIGERATION MECHANIC notes. ROM: Right Upper Extremity: ? Shoulder Flexion WFL. Shoulder abduction WFL. Elbow flexion WFL. Wrist flexion WFL. Functional opening and closing of hand WFL. Left Upper Extremity:? Shoulder Flexion WFL. Shoulder abduction WFL. Elbow flexion WFL. Wrist flexion WFL. Functional opening and closing of hand WFL. Right Lower Extremity: Hip flexion WFL. Hip abduction WFL. Knee flexion WFL. Ankle dorsiflexion WFL. Ankle plantarflexion WFL. Left Lower Extremity: Hip flexion WFL. Hip abduction WFL. Knee flexion WFL. Ankle dorsiflexion WFL. Ankle plantarflexion WFL. Strength: Right Upper Extremity: Shoulder flexors 3/5. Shoulder abductors 3/5. Elbow flexors 4/5. Elbow extensors 4/5. Senior Marketing Specialist strong. Left Upper Extremity: Shoulder flexors 3/5. Shoulder abductors 3/5. Elbow flexors 4/5. Elbow extensors 4/5. Senior Marketing Specialist strong. Right Lower Extremity: Hip flexors 4-/5.? Hip flexors left 4-/5. Hip abductors 4-/5. Knee flexors 4-/5. Knee extensors 4-/5. Ankle dorsiflexors 4-/5. Ankle plantarflexors 4/5. Left Lower Extremity: Hip flexors 4-/5.? Hip flexors left 4-/5. Hip abductors 4-/5. Knee flexors 4-/5. Knee extensors 4-/5. Ankle dorsiflexors 4-/5. Ankle plantarflexors 4/5. BED MOBILITY/TRANSFERS? Rolling L/R: SBA Supine-sit: SBA ? Sit-supine: SBA Sit to stand: SBA Stand to sit: SBA GAIT?Assistive Device: FWW?Weight bearing: WBAT ?Assist: SBA W/C follow?Distance:? 20', 30', 30' AM/? 30', 30', 60', 60' PM?Deviation: Cueing for increased step length, and step height ? Balance:? Static Sitting: Normal Dynamic Sitting: Good Static Standing: Fair Dynamic Standing: Fair Assessment:?? Patient is a 72-year-old male with complex medical history who presented to the ED on 12/07/2022 due to shortness of breath and generalized weakness.? Patient is admitted to [facility] for management of pneumonia, acute on chronic right-sided heart failure, COPD exacerbation, atrial fibrillation. Patient presents with clinical signs and symptoms consistent with current/admitting diagnoses that have resulted to mobility limitations, gait instability, generalized weakness, and overall ADL decline as demonstrated by the following impairment level findings: 1.? Decreased strength to B UE/LE major muscle groups 2.? Impaired sitting/standing balance 3.? Impaired activity tolerance 4.? Shortness of breath Impairments are contributing to the following functional limitations: 1.? Decline in bed mobility skills 2.? Decline in transfer skills 3.? Difficulty with ambulation without assistive device and physical assistance 4.? Increased completion time for mobility ADL performance 5.? Increased risk for falls 6.? Difficulty with managing steps alone safely Goals: Goals X1 week 1. Supine-Sit independent NOT MET 2. Sit-Supine independent NOT MET 3. Sit-Stand independent with FWW NOT MET 4. Stand-Sit independent with FWW NOT MET 5. Bed-Chair independent with FWW NOT MET 6. Chair-Bed independent with FWW NOT MET 7. Independent gait on level surface with use of FWW for at least 200 feet without report of pain nor dyspnea NOT MET 8. Independent stair negotiation while holding onto bilateral rails for at least 5 steps without report of pain nor dyspnea NOT MET 9. Independent with home exercise program NOT MET 10. Good static and dynamic standing balance/tolerance NOT MET DISCHARGE RECOMMENDATIONS: Patient will benefit from home health PT services in order to progress mobility level using least restrictive assistive ambulatory device, assess home safety, identify additional equipment needs, and establish a functional maintenance program that will increase ability of patient to remain at home. TREATMENT CODE/TIME: TX Thank you for the opportunity to participate in the care of this patient. Savanna Banks PT, DPT, CLT [facility] [place], [place]
== END 2022-12-09 14:44 | disposition skilled nursing facility (03) | DRG 194 ==
LOC: ER 17:49 → MS 19:02
PROVIDERS: Family Medicine; Nurse Practitioner Acute Care; Admitting Provider Internal Medicine; Emergency Provider Student in an Organized Health Care Education/Training Program; PCP Family Medicine; Visit Provider Internal Medicine
DX: J18.9 Pneumonia, unspecified organism (principal); I50.32 Chronic diastolic (congestive) heart failure; J44.0 Chronic obstructive pulmonary disease with (acute) lower respiratory infection; J44.1 Chronic obstructive pulmonary disease with (acute) exacerbation; Z68.1 Body mass index [BMI] 19.9 or less, adult; R64 Cachexia; I50.813 Acute on chronic right heart failure; I48.91 Unspecified atrial fibrillation; R00.1 Bradycardia, unspecified; Z66 Do not resuscitate; R91.1 Solitary pulmonary nodule; R74.8 Abnormal levels of other serum enzymes; I95.9 Hypotension, unspecified; G31.84 Mild cognitive impairment of uncertain or unknown etiology; Z55.0 Illiteracy and low-level literacy; R09.02 Hypoxemia; F32.A Depression, unspecified; R33.9 Retention of urine, unspecified; J84.10 Pulmonary fibrosis, unspecified; R53.1 Weakness; I07.1 Rheumatic tricuspid insufficiency; I25.10 Atherosclerotic heart disease of native coronary artery without angina pectoris; I11.0 Hypertensive heart disease with heart failure; Z87.891 Personal history of nicotine dependence
CPT/HCPCS: 36415; 80048; 80053; 84145; 87040; 87449; 87635; 93005; 94640; 97116; 97162; 97530; 71045; 83735; 83880; 84443; 84484; 85025; 87899; 93010; 94664; 94667; 94668; 99223; 99233; 99239; J0696; J1650; J1941; J2930; J3490; J7512; J7620

== ENCOUNTER 2023-01-25 13:06 | Emergency (ER) | payer MEDICARE, MEDICAID, SELFPAY ==
[2023-01-25] VITALS (32 sets, daily range): BP systolic 97–119; BP diastolic 56–81; PULSE 82–120; RESP 20–24; TEMP 36.9; O2SAT 92–100
--- NOTE | 2023-01-25 13:00 | RT.EKG_ITS ---
APPROVED REPORT Exam: Resting ECG Reason for Exam: sob Patient Location: E HR:109 bpm ECG Measurements Heart Rate 109 AXIS ND [id number] P [id number] QRSd 92 QRS 101 QT 295 T -75 QTc 397 Conclusion Atrial fibrillation...V-rate 85-132, irreg A-activity Right axis deviation...QRS axis ( 91,269) Consider anterolateral infarct...Q >30mS, I aVL V3-V6,I,aVL Repol abnrm suggests ischemia, diffuse leads...ST-T neg, ant/lat/inf afib rvr, normal axis, lateral st seg depressions
--- NOTE | 2023-01-25 14:00 | ED.GENADUL_ITS ---
Discharge Plan Disposition Patient Disposition: Home Condition: Improving Discharge Details Clinical Impression: Pneumonia Primary Care Provider: Silvina Perdue ED Provider: Mio Hu Home Meds and New Rx's Prescriptions: New azithromycin 250 mg tablet 250 mg PO DAILY 4 Days Qty: 4 0RF Rx Instructions: start on day 2 of therapy amoxicillin-pot clavulanate 875-125 mg tablet 1 tab PO BID 7 Days Qty: 14 0RF No Action digoxin [Digox] 125 mcg (0.125 mg) tablet 125 mcg PO DAILY Boost Breeze Nutritional 0.04-1.05 gram-kcal/mL liquid 50 ml PO BID guaifenesin [Robafen] 100 mg/5 mL liquid 200 mg PO Q4H PRN aspirin 81 mg capsule 162 mg PO DAILY polyethylene glycol 3350 17 gram powder in packet 17 g PO DAILY sennosides [Senokot] 8.6 mg tablet 17.2 mg PO HS albuterol sulfate 90 mcg/actuation HFA aerosol inhaler 2 puff inhalation Q4H PRN loperamide 2 mg capsule 4 mg PO .COMPLEX PRN Rx Instructions: 4 mg orally after first loose stool, then 1 capsule after subsequent loose stools. Maximum daily dose is 16mg PRN; gabapentin 300 mg capsule 300 mg PO TID Patient Comments: Take 1 capsule by mouth three times a day ascorbic acid (vitamin C) [Vitamin C] 500 mg tablet 500 mg PO 1XD Patient Comments: Take 1 tablet by mouth every other day take with iron pantoprazole 40 mg tablet,delayed release (DR/EC) 40 mg PO 1XD Patient Comments: Take 1 tablet by mouth once a day One Daily Multi-Vit w-Mineral 4.5 mg iron tablet 1 tab PO DAILY cholecalciferol (vitamin D3) 50 mcg (2,000 unit) tablet 50 mcg PO DAILY tamsulosin 0.4 mg capsule 0.4 mg PO HS Stiolto Respimat 2.5-2.5 mcg/actuation mist 2 puff INHALATION DAILY atorvastatin 10 mg tablet 10 mg PO HS acetaminophen 500 mg Tablet 1,000 mg PO TID Qty: 0 0RF ferrous gluconate 324 mg (38 mg iron) Tablet 324 mg PO BID@1000,2200 Qty: 0 0RF mirtazapine 7.5 mg tablet 7.5 mg PO HS Qty: 0 0RF Patient Comments: Take 1 tablet by mouth at bedtime metoprolol succinate 25 mg Tablet Extended Release 24 Hr 37.5 mg PO DAILY Qty: 0 0RF Rx Instructions: hold for SBP<100 or HR<60 Discharge Instructions Instructions: Pneumonia (ED) Medical Decision Making 72-year-old male history of COPD, lung mass, not currently undergoing chemo or radiation, presents with shortness of breath over the last day nonproductive cough, quiet lungs bilaterally however not tachypneic, speaking full sentences, normoxic, low-grade tachycardia on arrival afebrile nontoxic no peripheral edema. Consider COPD exacerbation versus shortness of breath related to his malignancy consider effusion, lower suspicion for PE ACS or aortic pathology. Screening labs chest x-ray nebs steroids disposition pending reassessment and results 16: 27 evidence of likely left lower lobe pneumonia. Hemodynamically stable not hypoxic not tachypneic. Will dose antibiotics here in department. Patient be discharged home HPI General Date/Time Provider Initiated Documentation: 01/25/23 13:51 . HPI Narrative: 72-year-old male history of COPD, lung mass, not currently undergoing chemotherapy or radiation, palliative care patient, presents with shortness of breath and cough over the last several days. Patient denies productive cough, no chest pain no fevers, no recent antibiotic use Related Data Home Medications Medication Instructions Recorded Confirmed gabapentin 300 mg capsule 300 mg PO TID 07/19/22 01/25/23 atorvastatin 10 mg tablet 10 mg PO HS 08/28/22 01/25/23 cholecalciferol (vitamin D3) 50 50 mcg PO DAILY 08/28/22 01/25/23 mcg (2,000 unit) tablet multivitamin with minerals-ferrous 1 tab PO DAILY 08/28/22 01/25/23 sulfate 4.5 mg iron tablet (One Daily Multivitamins with Minerals) tamsulosin 0.4 mg capsule 0.4 mg PO HS 08/28/22 01/25/23 tiotropium 2.5 mcg-olodaterol 2.5 2 puff inhalation DAILY 08/28/22 01/25/23 mcg/actuation mist for inhalation (Stiolto Respimat) acetaminophen 500 mg tablet 1,000 mg PO TID #0 tabs 09/06/22 01/25/23 ferrous gluconate 324 mg (38 mg 324 mg PO BID@1000,2200 #0 tabs 09/06/22 01/25/23 iron) tablet mirtazapine 7.5 mg tablet 7.5 mg PO HS #0 tabs 09/06/22 01/25/23 food supplemt, lactose-reduced 50 ml PO BID 09/22/22 01/25/23 0.04 gram-1.05 kcal/mL oral liquid (Boost Breeze Nutritional) guaifenesin 100 mg/5 mL oral 200 mg PO Q4H PRN 09/22/22 01/25/23 liquid (Robafen) albuterol sulfate 90 mcg/actuation 2 puff inhalation Q4H PRN 10/05/22 01/25/23 aerosol inhaler aspirin 81 mg capsule 162 mg PO DAILY 10/05/22 01/25/23 loperamide 2 mg capsule 4 mg PO .COMPLEX PRN 10/05/22 01/25/23 polyethylene glycol 3350 17 gram 17 g PO DAILY 10/05/22 01/25/23 oral powder packet sennosides 8.6 mg tablet (Senokot) 17.2 mg PO HS 10/05/22 01/25/23 ascorbic acid (vitamin C) 500 mg 500 mg PO 1XD 12/04/22 01/25/23 tablet (Vitamin C) pantoprazole 40 mg tablet,delayed 40 mg PO 1XD 12/04/22 01/25/23 release metoprolol succinate 25 mg 37.5 mg PO DAILY #0 tabs 12/09/22 01/25/23 tablet,extended release 24 hr digoxin 125 mcg (0.125 mg) tablet 125 mcg PO DAILY 01/13/23 01/25/23 (Digox) amoxicillin 875 mg-potassium 1 tab PO BID 7 days #14 tabs 01/25/23 clavulanate 125 mg tablet azithromycin 250 mg tablet 250 mg PO DAILY 4 days #4 tabs 01/25/23 Previous Rx's Medication Instructions Recorded acetaminophen 500 mg tablet 1,000 mg PO TID #0 tabs 09/06/22 ferrous gluconate 324 mg (38 mg 324 mg PO BID@1000,2200 #0 tabs 09/06/22 iron) tablet mirtazapine 7.5 mg tablet 7.5 mg PO HS #0 tabs 09/06/22 metoprolol succinate 25 mg 37.5 mg PO DAILY #0 tabs 12/09/22 tablet,extended release 24 hr amoxicillin 875 mg-potassium 1 tab PO BID 7 days #14 tabs 01/25/23 clavulanate 125 mg tablet azithromycin 250 mg tablet 250 mg PO DAILY 4 days #4 tabs 01/25/23 Allergies Allergy/AdvReac Type Severity Reaction Status Date / Time No Known Allergies Allergy Verified 01/25/23 16:10 General Stated Complaint: RespSymp ANAMIKA: 3 Review of Systems Narrative: Review of Systems Constitutional: negative Eyes: negative ENT: negative Cardiovascular: negative Respiratory: Cough, shortness of breath Gastrointestinal: negative : negative Musculoskeletal: negative Skin: negative Neurologic: negative Psych: negative PFSH All Active Problems (Updated 01/25/23 @ 16:28 by Mio Hu MD) Pneumonia (Acute) Recurrent aspiration pneumonia (Acute) COPD exacerbation (Acute) Pneumonia (Acute) COPD exacerbation (Acute) Shortness of breath (Acute) Lung mass (Acute) Elevated troponin (Acute) Hypotension (Acute) DNR (do not resuscitate) (Acute) DNR, but would like trial of intubation. See 09/26 Note Acute bronchitis (Acute) Left foot pain (Acute) Palliative care patient (Acute) Underweight (Acute) Diastolic heart failure (Chronic) Closed intertrochanteric fracture of left femur (Acute) s/p IMN fixation (08/28/22) Fall (Acute) Blunt head trauma (Acute) Contusion of elbow, left (Acute) Contusion of left leg (Acute) Closed fracture of left hip (Acute) Mild cognitive impairment (Acute) Advanced care planning/counseling discussion (Acute) Literacy level of illiterate (Acute) Palliative care encounter (Acute) Acute on chronic right-sided congestive heart failure (Chronic) Pneumonia (Acute) Hypoxia (Acute) Depression (Chronic) Dental abscess (Acute) 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) Abnormal chest CT (Acute) Full code status (Acute) 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) CAP (community acquired pneumonia) (Acute) Generalized weakness (Acute) Skin tear of left elbow without complication (Acute) Chronic obstructive lung disease (Chronic) Tricuspid regurgitation (Chronic) CAD (coronary artery disease) (Chronic) Hypertension (Chronic) Medical History Abdominal pain Abnormal radiologic findings on diagnostic imaging of renal pelvis, ureter, or bladder Acute on chronic anemia Acute on chronic diastolic (congestive) heart failure Acute on chronic systolic CHF (congestive heart failure) [place] [facility] [place]...EGD 04/2021 with friable mucosa. SDOne at that time because of GI blooed Afib Alcohol abuse Alcohol abuse, continuous drinking behavior Anemia Aspiration pneumonia Bilateral lower extremity edema CAD (coronary artery disease) of artery bypass graft Cerumen impaction CHF, acute on chronic Closed intertrochanteric fracture Confusion state COVID-19 COVID-19 Diabetes mellitus Difficulty reading Edema Encounter for colorectal cancer screening Epididymitis, right (08/02/16) Essential hypertension Failure to thrive Fall GERD (gastroesophageal reflux disease) GI bleed GI bleeding H/O malignant neoplasm of stomach Heart failure, left, with LVEF 41-49% History of fracture of left hip S/P IM NAIL DOS: 08/28/22 History of GI bleed Hoarseness Hydrocele, right (01/23/16) Hyperlipidemia Hypophosphatemia Kyphoscoliosis Low back pain Malnutrition Mild bibasilar atelectasis Pancreatitis Poor hygiene Prediabetes Protein malnutrition Pulmonary hypertension Recent weight loss Rib fractures Shortness of breath Solitary pulmonary nodule Tinnitus, left Tobacco abuse Weight loss Surgical History cardiac cath Coronary Artery Bypass Gaft (CABG) EGD - IV Sedation Esophagectomy H/O colonoscopy (2007) H/O colonoscopy (04/14/18) dr geller, sigmoid diverticulosis, repeat 10 years History of esophagogastroduodenoscopy (EGD) (09/2017) History of hydrocelectomy History of right inguinal hernia repair repair times two sugrical flap of unhealing wound Family History Mother No problems noted. Father No problems noted. Social History Smoking/Tobacco Use Status: Former Tobacco Use Smoking risk assessment performed?: Yes Alcohol Intake: former Drug use: Never Substance use type: does not use Housing: apartment Current gender identity: male What type of physical activity do you participate in: none Do you feel safe at home: Yes Do you feel safe in your relationship?: Yes Exam Narrative Exam Narrative: Physical Examination General: alert, awake, cooperative, resting comfortably, no acute distress HEENT: normocephalic, atraumatic; PERRL, EOM intact, conjunctiva normal; no nasal discharge; moist mucous membranes, oral and pharyngeal mucosa normal, tolerating secretions Neck: supple, trachea midline; full ROM Chest: normal to inspection Respiratory: normal respiratory effort, speaking in full sentences, quiet lung echols bilaterally, no retractions no tachypnea Cardiac: Tachycardia, regular rhythm, S1S2 intact, no murmurs rubs or gallops GI: abdomen soft, non-tender, non-distended; no palpable mass or hepatosplenomegaly Skin: no lesions, rashes or trauma appreciated Neuro: AAOx3, normal speech, moving all extremities Extremities: no peripheral edema Psych: Appropriate mood and affect Course Vital Signs Vital signs: Vital Signs Temperature 36.9 C 01/25/23 13:09 Pulse 100 H 01/25/23 13:09 Respiratory Rate 24 01/25/23 13:09 Blood Pressure 103/71 01/25/23 13:09 Pulse Oximetry 94 01/25/23 13:09 Temperature 36.9 C 01/25/23 13:09 Temperature Source Oral 01/25/23 13:09 Pulse 100 H 01/25/23 13:09 Respiratory Rate 24 01/25/23 13:09 Blood Pressure 103/71 01/25/23 13:09 Blood Pressure Position Sitting 01/25/23 13:09 Pulse Oximetry 94 01/25/23 13:09 Oxygen Delivery Method Room Air 01/25/23 13:09 Oxygen Flow Rate 0 01/25/23 13:09
[2023-01-25 14:07] LABS: Abs Immature Grans 0.09 10^3/uL (0.0-0.06); Absolute Basophil Count 0.05 10^3/uL (0.0-0.2); Absolute Eosinophil Count 0.15 10^3/uL (0.0-0.7); Absolute Lymphocyte Count 1.52 10^3/uL (1.2-3.4); Absolute Monocyte Count 0.91 10^3/uL (0.1-0.8); Absolute Neutrophil Count 6.12 10^3/uL (1.2-6.7); Basophils % 0.6; Eosinophils % 1.7; HCT 49.5 % (40.0-50.0); HGB 16.1 g/dL (13.5-17.5); Lymphocytes % 17.2; MCH 29.8 pg (27.0-33.0); MCHC 32.5 % (32.0-36.0); MCV 92 fL (80-95); MPV 9.2 fL (8.0-11.0); Monocytes % 10.3; Neutrophils % 69.2; Platelet Count 265 10^3/uL (130-400); RDW 14.8 % (11.8-14.1); RDW-SD 50.4 fL; WBC 8.84 10^3/uL (4.4-10.8)
[2023-01-25 14:29] LABS: ALT 12 U/L (16-63); AST 19 U/L (15-37); Albumin 3.4 g/dL (3.4-5.0); Alkaline Phosphatase 133 U/L (46-116); Anion Gap 11.8 mmol/L (3-11); BUN 23 mg/dL (7-18); Bilirubin, Total 1.2 mg/dL (0.2-1.0); CO2 25.2 mmol/L (21.0-32.0); CREATININE 0.8 mg/dL (0.70-1.30); Calcium 9.7 mg/dL (8.5-10.1); Chloride 103 mmol/L (98-107); Estimated GFR 94.03 (mL/min/1.73m2); Glucose 85 mg/dL (74-106); NT-proBNP 2186 pg/mL (<300); Potassium 3.6 mmol/L (3.5-5.1); Sodium 140 mmol/L (136-145); Total Protein 8.1 g/dL (6.4-8.2)
[2023-01-25] MEDS: Dexamethasone 10 MG/ML VIAL IVP (14:40)
[2023-01-25] MEDS: Albuterol/Ipratropium 3 ML UPD VIAL 9 ML UPD (14:40)
--- NOTE | 2023-01-25 15:49 | DI.RAD_ITS ---
Exam(s) XR CHEST 2V PA LATERAL EXAM: XR CHEST 2V PA LATERAL CLINICAL HISTORY: cough, sob, hx lung mass copd. TECHNIQUE: 2D digital imaging was performed. COMPARISON: CR,XR XR PORTABLE CHEST AP from 12/07/2022 FINDINGS: 2 views: Sternotomy wires. Mild cardiomegaly. Mediastinum not widened. Bilateral hyperinflation noted-COPD. No infiltrates in the right side. Mildly elevated left hemidia phragm. Probable mild infiltrate in the left lung base. Blunting of the costophrenic angle noted on left side indicating small pleural effusions. IMPRESSION: Left lower lobe infiltrate. Small pleural effusion. Sternotomy wires. COPD. DATA REPOSITORY: RADIATION DOSE DELIVERED:
[2023-01-25] MEDS: Azithromycin 250 MG TAB 500 MG PO (16:25)
[2023-01-25] MEDS: Amoxicillin 875/Clav. 125 TAB PO (16:25)
--- NOTE | 2023-01-26 13:23 | NUR.NOTE ---
Accessed chart to determine orders for EKG and to determine whether or not one needs to be cancelled. Nursing Note:
== END 2023-01-25 16:44 | disposition home or self-care (01) ==
PROVIDERS: Emergency Provider Emergency Medicine; PCP Family Medicine
DX: J18.9 Pneumonia, unspecified organism (principal)
CPT/HCPCS: 36415; 80053; 93005; 94640; 96374; 99284; 71046; 83880; 85025; 93010; J1100; J7620

== ENCOUNTER 2023-01-25 20:47 | Inpatient (IN) | payer MEDICARE, MEDICAID, SELFPAY ==
[2023-01-25] VITALS (12 sets, daily range): BP systolic 135; BP diastolic 80; PULSE 107; RESP 15–20; TEMP 36.4; O2SAT 89–100
--- NOTE | 2023-01-25 20:45 | RT.EKG_ITS ---
APPROVED REPORT Exam: Resting ECG Reason for Exam: sob Patient Location: E HR:107 bpm ECG Measurements Heart Rate 107 AXIS LA [id number] P [id number] QRSd 97 QRS 90 QT 349 T -84 QTc 465 Conclusion Incomplete analysis due to missing data in precordial lead(s) Atrial fibrillation...V-rate 65-140, irreg A-activity Probable left ventricular hypertrophy...(RaVL+SV3)xQRSd >280 Nonspecific T abnormalities, inferior leads...T <-0.10mV, II III aVF Physician: no stemi
--- NOTE | 2023-01-25 21:00 | RT.EKG_ITS ---
APPROVED REPORT Exam: Resting ECG Reason for Exam: Repeat Patient Location: E HR:106 bpm ECG Measurements Heart Rate 106 AXIS MS [id number] P [id number] QRSd 80 QRS 89 QT 330 T -84 QTc 439 Conclusion Atrial fibrillation...V-rate 85-121, irreg A-activity Consider anteroseptal infarct...Q >30mS, dimin R, V1-V2 Nonspecific repol abnormality, diffuse leads...ST dep, T flat/neg, ant/lat/inf Physician: no stemi
[2023-01-25 21:56] LABS: Abs Immature Grans 0.15 10^3/uL (0.0-0.06); Absolute Basophil Count 0.04 10^3/uL (0.0-0.2); Absolute Eosinophil Count 0.01 10^3/uL (0.0-0.7); Absolute Lymphocyte Count 0.39 10^3/uL (1.2-3.4); Absolute Monocyte Count 0.17 10^3/uL (0.1-0.8); Absolute Neutrophil Count 9.78 10^3/uL (1.2-6.7); Basophils % 0.4; Eosinophils % 0.1; HCT 52.2 % (40.0-50.0); HGB 16.6 g/dL (13.5-17.5); Immature Grans % 1.4; Lymphocytes % 3.7; MCH 29.7 pg (27.0-33.0); MCHC 31.8 % (32.0-36.0); MCV 94 fL (80-95); MPV 9.6 fL (8.0-11.0); Monocytes % 1.6; Neutrophils % 92.8; Platelet Count 271 10^3/uL (130-400); RBC 5.58 10^6/uL (4.36-5.78); RDW 14.9 % (11.8-14.1); RDW-SD 51.6 fL; WBC 10.54 10^3/uL (4.4-10.8)
[2023-01-25 22:15] LABS: Troponin I < 50 ng/L (<or=60)
[2023-01-25 22:29] LABS: ALT 14 U/L (16-63); AST 18 U/L (15-37); Albumin 3.6 g/dL (3.4-5.0); Alkaline Phosphatase 145 U/L (46-116); Anion Gap 19.3 mmol/L (3-11); BUN 31 mg/dL (7-18); CO2 20.7 mmol/L (21.0-32.0); CREATININE 1.3 mg/dL (0.70-1.30); Calcium 10.1 mg/dL (8.5-10.1); Chloride 99 mmol/L (98-107); Estimated GFR 58.37 (mL/min/1.73m2); Glucose 194 mg/dL (74-106); Potassium 4.1 mmol/L (3.5-5.1); Sodium 139 mmol/L (136-145); Total Protein 8.9 g/dL (6.4-8.2)
--- NOTE | 2023-01-25 22:29 | HPE_ITS ---
Date of service: 01/25/23 Time of Service: 22:30 Assessment and Plan Assessment and plan (1) Pneumonia: Start date: 01/25/23 Status: Acute Assessment and plan: Patient is a 72-year-old gentleman who is doing independent ADL activity at home with normal care except for his neighbor who is helping at times. He has a alcoholic in remission by history. Presents with cough is persistent and new hypoxemia with left lower lobe infiltrate. He will be admitted for failure of outpatient medical therapy and initiated on doxycycline IV with Rocephin IV. Monitor for improvement and rehabilitate long-term plans for possible place patient for continued care and better supervised living environment versus discharge home with increased services. He may have to go home on O2 which is advancing lung disease. Pulmonary should follow him up as well. He is a DNR /DNI. (2) Hypoxia: Status: Acute Assessment and plan: New onset patient having significant lung disease chronically. Reevaluate need for long-term oxygen after pneumonia has cleared. 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 (4) Hypertension: Status: Chronic Assessment and plan: Continue outpatient medical therapy monitoring and adjust as needed. (5) CAD (coronary artery disease): Status: Chronic Assessment and plan: Continue outpatient medical therapy and risk control. Patient is DNR/DNI. (6) Afib: Assessment and plan: Patient did have bradycardia past injection has been discontinued. Continue to monitor off anticoagulation and monitor for rate control with low-dose metoprolol. Watch for recurrent bradycardia. (7) Borderline hyperglycemia: Status: Acute Assessment and plan: Patient mid has a history of diabetes in the past and I will check a hemoglobin A1c to evaluate average glucose control. This may have not been a problem recently with weight loss. History of Present Illness History of Present Illness Chief Complaint: Shortness of breath Narrative: This is a 72-year-old male patient who lives alone but has care from his neighbor who is attending him at times. He does ambulate with a wheelchair and tries to walk using a walker but appears weak and chronically ill. He is very thin. He has a history of significant lung disease he does have history of atrial fibrillation but not on anticoagulant because of GI bleeding. He also has some issues with alcohol in the past. Not did have drop recently. He does appear malnourished. He was seen in the ED earlier the day of admission but failed home care and was requiring oxygen with increased shortness of breath return to the ED for admission with imaging revealing left lower lobe infiltrate. He has had no significant fever or rigors and you does not have oxygen at home. He has been more ill recently being incapacitated off and on for the last month. He may do better with supervised living not performing well with independent ADL activity. He will be admitted for IV antibiotic therapy for pneumonia and reevaluation of his living status. He is a DNR/DNI. Review of Systems Narrative: 13 point review of systems otherwise unrevealing or unobtainable with patient b david akins historian. [facility] All Active Problems (Updated 01/26/23 @ 08:24 by Emile Espinal) Pneumonia (Acute) Hypoxemia (Acute) Borderline hyperglycemia (Acute) Pneumonia (Acute) Recurrent aspiration pneumonia (Acute) COPD exacerbation (Acute) Pneumonia (Acute) COPD exacerbation (Acute) Shortness of breath (Acute) Lung mass (Acute) Elevated troponin (Acute) Hypotension (Acute) DNR (do not resuscitate) (Acute) DNR, but would like trial of intubation. See 09/26 Note Acute bronchitis (Acute) Left foot pain (Acute) Palliative care patient (Acute) Underweight (Acute) Diastolic heart failure (Chronic) Closed intertrochanteric fracture of left femur (Acute) s/p IMN fixation (08/28/22) Fall (Acute) Blunt head trauma (Acute) Contusion of elbow, left (Acute) Contusion of left leg (Acute) Closed fracture of left hip (Acute) Mild cognitive impairment (Acute) Advanced care planning/counseling discussion (Acute) Literacy level of illiterate (Acute) Palliative care encounter (Acute) Acute on chronic right-sided congestive heart failure (Chronic) Pneumonia (Acute) Hypoxia (Acute) Depression (Chronic) Dental abscess (Acute) 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) Abnormal chest CT (Acute) Full code status (Acute) Urinary retention (Chronic) 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) CAP (community acquired pneumonia) (Acute) Generalized weakness (Acute) Skin tear of left elbow without complication (Acute) Chronic obstructive lung disease (Chronic) Tricuspid regurgitation (Chronic) CAD (coronary artery disease) (Chronic) Hypertension (Chronic) Medical History Abdominal pain Abnormal radiologic findings on diagnostic imaging of renal pelvis, ureter, or bladder Acute on chronic anemia Acute on chronic diastolic (congestive) heart failure Acute on chronic systolic CHF (congestive heart failure) Adenocarcinoma of esophagus From [facility]:Hx GI Cancer...EGD 04/2021 with friable mucosa. SDOne at that time because of GI blooed Afib Alcohol abuse Alcohol abuse, continuous drinking behavior Anemia Aspiration pneumonia Bilateral lower extremity edema CAD (coronary artery disease) of artery bypass graft Cerumen impaction CHF, acute on chronic Closed intertrochanteric fracture Confusion state COVID-19 COVID-19 Diabetes mellitus Difficulty reading Edema Encounter for colorectal cancer screening Epididymitis, right (08/02/16) Essential hypertension Failure to thrive Fall GERD (gastroesophageal reflux disease) GI bleed GI bleeding H/O malignant neoplasm of stomach Heart failure, left, with LVEF 41-49% History of fracture of left hip S/P IM NAIL DOS: 08/28/22 History of GI bleed Hoarseness Hydrocele, right (01/23/16) Hyperlipidemia Hypophosphatemia Kyphoscoliosis Low back pain Malnutrition Mild bibasilar atelectasis Pancreatitis Poor hygiene Prediabetes Protein malnutrition Pulmonary hypertension Recent weight loss Rib fractures Shortness of breath Solitary pulmonary nodule Tinnitus, left Tobacco abuse Weight loss Surgical History cardiac cath Coronary Artery Bypass Gaft (CABG) EGD - IV Sedation Esophagectomy H/O colonoscopy (2007) H/O colonoscopy (04/14/18) dr geller, sigmoid diverticulosis, repeat 10 years History of esophagogastroduodenoscopy (EGD) (09/2017) History of hydrocelectomy History of right inguinal hernia repair repair times two sugrical flap of unhealing wound Family History Mother No problems noted. Father No problems noted. Social History Smoking/Tobacco Use Status: Former Tobacco Use Smoking risk assessment performed?: Yes Alcohol Intake: former Drug use: Never Substance use type: does not use Housing: house Current gender identity: male What type of physical activity do you participate in: none Do you feel safe at home: Yes Do you feel safe in your relationship?: Yes Meds Allergies and Home Medications Allergies Allergy/AdvReac Type Severity Reaction Status Date / Time No Known Allergies Allergy Verified 01/25/23 21:14 Home Medications Medication Instructions Recorded Confirmed Type gabapentin 300 mg capsule 300 mg PO TID 07/19/22 01/25/23 History atorvastatin 10 mg tablet 10 mg PO HS 08/28/22 01/25/23 History cholecalciferol (vitamin D3) 50 50 mcg PO DAILY 08/28/22 01/25/23 History mcg (2,000 unit) tablet multivitamin with minerals-ferrous 1 tab PO DAILY 08/28/22 01/25/23 History sulfate 4.5 mg iron tablet (One Daily Multivitamins with Minerals) tamsulosin 0.4 mg capsule 0.4 mg PO HS 08/28/22 01/25/23 History tiotropium 2.5 mcg-olodaterol 2.5 2 puff inhalation DAILY 08/28/22 01/25/23 History mcg/actuation mist for inhalation (Stiolto Respimat) acetaminophen 500 mg tablet 1,000 mg PO TID #0 tabs 09/06/22 01/25/23 Rx ferrous gluconate 324 mg (38 mg 324 mg PO BID@1000,2200 #0 tabs 09/06/22 01/25/23 Rx iron) tablet mirtazapine 7.5 mg tablet 7.5 mg PO HS #0 tabs 09/06/22 01/25/23 Rx food supplemt, lactose-reduced 50 ml PO BID 09/22/22 01/25/23 History 0.04 gram-1.05 kcal/mL oral liquid (Boost Breeze Nutritional) guaifenesin 100 mg/5 mL oral 200 mg PO Q4H PRN 09/22/22 01/25/23 History liquid (Robafen) albuterol sulfate 90 mcg/actuation 2 puff inhalation Q4H PRN 10/05/22 01/25/23 History aerosol inhaler aspirin 81 mg capsule 162 mg PO DAILY 10/05/22 01/25/23 History loperamide 2 mg capsule 4 mg PO .COMPLEX PRN 10/05/22 01/25/23 History polyethylene glycol 3350 17 gram 17 g PO DAILY 10/05/22 01/25/23 History oral powder packet sennosides 8.6 mg tablet (Senokot) 17.2 mg PO HS 10/05/22 01/25/23 History ascorbic acid (vitamin C) 500 mg 500 mg PO 1XD 12/04/22 01/25/23 History tablet (Vitamin C) pantoprazole 40 mg tablet,delayed 40 mg PO 1XD 12/04/22 01/25/23 History release metoprolol succinate 25 mg 37.5 mg PO DAILY #0 tabs 12/09/22 01/25/23 Rx tablet,extended release 24 hr digoxin 125 mcg (0.125 mg) tablet 125 mcg PO DAILY 01/13/23 01/25/23 History (Digox) amoxicillin 875 mg-potassium 1 tab PO BID 7 days #14 tabs 01/25/23 01/25/23 Rx clavulanate 125 mg tablet azithromycin 250 mg tablet 250 mg PO DAILY 4 days #4 tabs 01/25/23 01/25/23 Rx Exam Narrative Exam Narrative: General: Patient appears older than stated age, unkempt and very thin almost cachectic appearing. He is alert and oriented to person place and place. He has moderate distress from his cough. HEENT: Normocephalic, coarsened facial features, unkempt hair. Eyes with pupils equal react light, extraocular movement tachycardia sclera anicteric. Orophary nx with dry mucosa and poor dentition. Neck: Supple without JVD. Lungs: Bronchovesicular breath sounds diffusely but no focalizing rales or rhonchi, slightly decreased aeration left base but no dullness to percussion. No egophony. No expiratory wheeze. Back: Stooped posture without CVA tenderness. Heart: Irregular irregular rhythm with dynamic precordium. No murmurs or gallops appreciated. Abdomen: Scaphoid contour, soft and nontender to palpation with no palpable hepatosplenomegaly. Genitalia/rectal: Exam deferred. Extremities: Without clubbing, cyanosis or grossly pitting edema. Diffusely. Fair capillary refill. Skin: Decreased turgor, rest, warm and dry with normal color. No pressure lesions noted to the patient's bottom was not examined with nurses to perform. Neuro: Cranial nerves II through XII gross intact, no focalizing motor deficits. No tremor. Psych: Flattened affect with depressed mood. Slowed mentation with monotonous slow voice and poor historian. No abnormal thought processes. Remote and recent memory grossly intact. Patient is vague about patient's history. Results Imaging Imaging Studies: EXAM:? XR CHEST 2V PA ? LATERAL CLINICAL HISTORY: ? cough, sob, hx lung mass copd. ? TECHNIQUE:? 2D digital imaging was performed. COMPARISON:? CR,XR XR PORTABLE CHEST AP from 12/07/2022 FINDINGS: 2 views: Sternotomy wires. Mild cardiomegaly.? Mediastinum not widened. Bilateral hyperinflation noted-COPD.? No infiltrates in the right side.? Mildly elevated left hemidiaphragm.? Probable mild infiltrate in the left lung base.? Blunting of the costophrenic angle noted on left side indicating small pleural effusions. IMPRESSION: Left lower lobe infiltrate.? Small pleural effusion. Sternotomy wires.? COPD. Labs 01/26/23 05:38 01/26/23 05:38 Labs: Laboratory Results - last 24 hr 01/25/23 01/25/23 21:50 21:50 WBC 10.54 RBC 5.58 Hgb 16.6 Hct 52.2 H MCV 94 MCH 29.7 MCHC 31.8 L RDW 14.9 H Plt Count 271 MPV 9.6 Immature Gran % 1.4 Neutrophils % 92.8 Lymphocytes % 3.7 Monocytes % 1.6 Eosinophils % 0.1 Basophils % 0.4 Nucleated RBC % 0.0 Absolute Neutrophils 9.78 H Absolute Lymphocytes 0.39 L Absolute Monocytes 0.17 Absolute Eosinophils 0.01 Absolute Basophils 0.04 Troponin I < 50 Last Vital Signs Temp 36.4 C 01/25/23 21:08 Pulse 107 H 01/25/23 21:08 Resp 15 01/25/23 21:59 BP 135/80 01/25/23 21:08 Pulse Ox 98 01/25/23 22:00 Time Spent Time spent with Patient: >75 minutes Time was spent: preparing to see the patient(eg.review tests), obtaining and/or reviewing separately otained hiistory, ordering medications,tests, procedures, referring, communicating with other health before and after school daycare worker, indepentently interpreting results, counseling the patient and care coordination
[2023-01-25] MEDS: cefTRIAXone 2 GM/50 ML BAG IVPB (23:34)
[2023-01-26] VITALS (16 sets, daily range): BP systolic 89–141; BP diastolic 58–86; PULSE 61–97; RESP 1–28; TEMP 35.8–36.5; O2SAT 90–99
[2023-01-26 00:10] LABS: Hemoglobin A1C 5.5 % (<5.7)
[2023-01-26] MEDS: DOXYCYCLINE 100 MG in Normal Saline 100 ML IVPB ×3 (00:20→23:49)
[2023-01-26] MEDS: Normal Saline 1,000 ML 125 ML IV ×3 (01:24→23:10)
[2023-01-26 01:26] LABS: Troponin I < 50 ng/L (<or=60)
[2023-01-26] MEDS: Metoprolol 12.5 MG TAB PO ×2 (01:30→11:26)
[2023-01-26] MEDS: Mirtazapine 15 MG TAB 7.5 MG PO ×2 (01:30→21:14)
[2023-01-26 01:42] LABS: COVID-19 PCR Negative (Negative); Influenza A PCR Negative (Negative); Influenza B PCR Negative (Negative); RSV PCR Negative (Negative)
[2023-01-26 01:43] LABS: Source Nasopharynx
--- NOTE | 2023-01-26 05:40 | ED.GENADUL_ITS ---
Discharge Plan Disposition Patient Disposition: Admit to [facility] Condition: Improving Discharge Details Chief Complaint: GenMedical Clinical Impression: Pneumonia, Hypoxemia Admit Date/Time: 01/25/23 22:55 Admit Provider: Emile Espinal Attending Provider: Emile Espinal Primary Care Provider: Silvina Perdue ED Provider: Juarez Saleem Discharge Data Discharge Date/Time-TO BE ENTERED AT DEPARTURE: 01/26/23 00:02 Medical Decision Making 72-year-old male with a past medical history of COPD, pulmonary fibrosis, A-fib, coronary artery disease, diastolic congestive heart failure, hypertension, alcohol abuse, cognitive impairment, history of GI tract cancer, medication noncompliance, presents today for evaluation of shortness of breath. Patient was seen earlier today and discharged at 1400 after he was noted to be hemodyn amically stable, and able to be discharged with diagnosis of pneumonia as noted on x-ray. He was prescribed antibiotics but he had not been able to start any yet. He returns few hours later now for not feeling well and being short of breath. He denies any chest pain. No other complaints. He does not provide much else in the way of history. X-ray shows evidence for left lower lobe infiltrate, labs demonstrate normal CBC. Mild left shift. Electrolytes at baseline, troponin normal. COVID flu and RSV are negative. Patient did demonstrate oxygenation in the high 80s. He does not use home oxygen. We did get him up and ambulate him around the department and he dropped to 84%. Notably winded, and weak. With the patient's increased oxygen demand, and persistent symptoms, I do feel that he would be best managed with inpatient admission. We will start 2 g of ceftriaxone and 100 mg of doxycycline. We will admit to inpatient. Discussed the case with hospitalist Dr. Flores, he agrees with the assessment and plan I have extensively reviewed the treatment plan with the patient. I have addressed all patient concerns at this time. I have also discussed the plan with the admitting physician and they agree with the current assessment and plan and have agreed to assume responsibility for the patient. All parties demonstrate verbal understanding and agreement with our assessment and plan at this time. The documentation in this chart was dictated using [employer] dictation software. Please excuse any dictation errors.. FINDINGS: 2 views: Sternotomy wires. Mild cardiomegaly. Mediastinum not widened. Bilateral hyperinflation noted-COPD. No infiltrates in the right side. Mildly elevated left hemidiaphragm. Probable mild infiltrate in the left lung base. Blunting of the costophrenic angle noted on left side indicating small pleural effusions. IMPRESSION: Left lower lobe infiltrate. Small pleural effusion. Sternotomy wires. COPD HPI General Date/Time Provider Initiated Documentation: 01/25/23 20:49 . HPI Narrative: 72-year-old male with a past medical history of COPD, pulmonary fibrosis, A-fib, coronary artery disease, diastolic congestive heart failure, hypertension, alcohol abuse, cognitive impairment, history of GI tract cancer, medication noncompliance, presents today for evaluation of shortness of breath. Patient was seen earlier today and discharged at 1400 after he was noted to be hemodynamically stable, and able to be discharged with diagnosis of pneumonia as noted on x-ray. He was prescribed antibiotics but he had not been able to start any yet. He returns few hours later now for not feeling well and being short of breath. He denies any chest pain. No other complaints. He does not provide much else in the way of history. Related Data Home Medications Medication Instructions Recorded Confirmed gabapentin 300 mg capsule 300 mg PO TID 07/19/22 01/25/23 atorvastatin 10 mg tablet 10 mg PO HS 08/28/22 01/25/23 cholecalciferol (vitamin D3) 50 50 mcg PO DAILY 08/28/22 01/25/23 mcg (2,000 unit) tablet multivitamin with minerals-ferrous 1 tab PO DAILY 08/28/22 01/25/23 sulfate 4.5 mg iron tablet (One Daily Multivitamins with Minerals) tamsulosin 0.4 mg capsule 0.4 mg PO HS 08/28/22 01/25/23 tiotropium 2.5 mcg-olodaterol 2.5 2 puff inhalation DAILY 08/28/22 01/25/23 mcg/actuation mist for inhalation (Stiolto Respimat) acetaminophen 500 mg tablet 1,000 mg PO TID #0 tabs 09/06/22 01/25/23 ferrous gluconate 324 mg (38 mg 324 mg PO BID@1000,2200 #0 tabs 09/06/22 01/25/23 iron) tablet mirtazapine 7.5 mg tablet 7.5 mg PO HS #0 tabs 09/06/22 01/25/23 food supplemt, lactose-reduced 50 ml PO BID 09/22/22 01/25/23 0.04 gram-1.05 kcal/mL oral liquid (Boost Breeze Nutritional) guaifenesin 100 mg/5 mL oral 200 mg PO Q4H PRN 09/22/22 01/25/23 liquid (Robafen) albuterol sulfate 90 mcg/actuation 2 puff inhalation Q4H PRN 10/05/22 01/25/23 aerosol inhaler aspirin 81 mg capsule 162 mg PO DAILY 10/05/22 01/25/23 loperamide 2 mg capsule 4 mg PO .COMPLEX PRN 10/05/22 01/25/23 polyethylene glycol 3350 17 gram 17 g PO DAILY 10/05/22 01/25/23 oral powder packet sennosides 8.6 mg tablet (Senokot) 17.2 mg PO HS 10/05/22 01/25/23 ascorbic acid (vitamin C) 500 mg 500 mg PO 1XD 12/04/22 01/25/23 tablet (Vitamin C) pantoprazole 40 mg tablet,delayed 40 mg PO 1XD 12/04/22 01/25/23 release metoprolol succinate 25 mg 37.5 mg PO DAILY #0 tabs 12/09/22 01/25/23 tablet,extended release 24 hr digoxin 125 mcg (0.125 mg) tablet 125 mcg PO DAILY 01/13/23 01/25/23 (Digox) amoxicillin 875 mg-potassium 1 tab PO BID 7 days #14 tabs 01/25/23 01/25/23 clavulanate 125 mg tablet azithromycin 250 mg tablet 250 mg PO DAILY 4 days #4 tabs 01/25/23 01/25/23 Previous Rx's Medication Instructions Recorded acetaminophen 500 mg tablet 1,000 mg PO TID #0 tabs 09/06/22 ferrous gluconate 324 mg (38 mg 324 mg PO BID@1000,2200 #0 tabs 09/06/22 iron) tablet mirtazapine 7.5 mg tablet 7.5 mg PO HS #0 tabs 09/06/22 metoprolol succinate 25 mg 37.5 mg PO DAILY #0 tabs 12/09/22 tablet,extended release 24 hr amoxicillin 875 mg-potassium 1 tab PO BID 7 days #14 tabs 01/25/23 clavulanate 125 mg tablet azithromycin 250 mg tablet 250 mg PO DAILY 4 days #4 tabs 01/25/23 Allergies Allergy/AdvReac Type Severity Reaction Status Date / Time No Known Allergies Allergy Verified 01/25/23 21:14 General Stated Complaint: GenMedical ANAMIKA: 3 Review of Systems All systems reviewed & are unremarkable except as noted in HPI and below PFSH All Active Problems (Updated 01/26/23 @ 05:54 by Juarez Saleem DO) Pneumonia (Acute) Hypoxemia (Acute) Borderline hyperglycemia (Acute) Pneumonia (Acute) Recurrent aspiration pneumonia (Acute) COPD exacerbation (Acute) Pneumonia (Acute) COPD exacerbation (Acute) Shortness of breath (Acute) Lung mass (Acute) Elevated troponin (Acute) Hypotension (Acute) DNR (do not resuscitate) (Acute) DNR, but would like trial of intubation. See 09/26 Note Acute bronchitis (Acute) Left foot pain (Acute) Palliative care patient (Acute) Underweight (Acute) Diastolic heart failure (Chronic) Closed intertrochanteric fracture of left femur (Acute) s/p IMN fixation (08/28/22) Fall (Acute) Blunt head trauma (Acute) Contusion of elbow, left (Acute) Contusion of left leg (Acute) Closed fracture of left hip (Acute) Mild cognitive impairment (Acute) Advanced care planning/counseling discussion (Acute) Literacy level of illiterate (Acute) Palliative care encounter (Acute) Acute on chronic right-sided congestive heart failure (Chronic) Pneumonia (Acute) Hypoxia (Acute) Depression (Chronic) Dental abscess (Acute) 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) Abnormal chest CT (Acute) Full code status (Acute) 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) CAP (community acquired pneumonia) (Acute) Generalized weakness (Acute) Skin tear of left elbow without complication (Acute) Chronic obstructive lung disease (Chronic) Tricuspid regurgitation (Chronic) CAD (coronary artery disease) (Chronic) Hypertension (Chronic) Medical History Abdominal pain Abnormal radiologic findings on diagnostic imaging of renal pelvis, ureter, or bladder Acute on chronic anemia Acute on chronic diastolic (congestive) heart failure Acute on chronic systolic CHF (congestive heart failure) Adenocarcinoma of esophagus From [facility]:Hx GI Cancer...EGD 04/2021 with friable mucosa. SDOne at that time because of GI blooed Afib Alcohol abuse Alcohol abuse, continuous drinking behavior Anemia Aspiration pneumonia Bilateral lower extremity edema CAD (coronary artery disease) of artery bypass graft Cerumen impaction CHF, acute on chronic Closed intertrochanteric fracture Confusion state COVID-19 COVID-19 Diabetes mellitus Difficulty reading Edema Encounter for colorectal cancer screening Epididymitis, right (08/02/16) Essential hypertension Failure to thrive Fall GERD (gastroesophageal reflux disease) GI bleed GI bleeding H/O malignant neoplasm of stomach Heart failure, left, with LVEF 41-49% History of fracture of left hip S/P IM NAIL DOS: 08/28/22 History of GI bleed Hoarseness Hydrocele, right (01/23/16) Hyperlipidemia Hypophosphatemia Kyphoscoliosis Low back pain Malnutrition Mild bibasilar atelectasis Pancreatitis Poor hygiene Prediabetes Protein malnutrition Pulmonary hypertension Recent weight loss Rib fractures Shortness of breath Solitary pulmonary nodule Tinnitus, left Tobacco abuse Weight loss Surgical History cardiac cath Coronary Artery Bypass Gaft (CABG) EGD - IV Sedation Esophagectomy H/O colonoscopy (2007) H/O colonoscopy (04/14/18) dr geller, sigmoid diverticulosis, repeat 10 years History of esophagogastroduodenoscopy (EGD) (09/2017) History of hydrocelectomy History of right inguinal hernia repair repair times two sugrical flap of unhealing wound Family History Mother No problems noted. Father No problems noted. Social History Smoking/Tobacco Use Status: Former Tobacco Use Smoking risk assessment performed?: Yes Alcohol Intake: former Drug use: Never Substance use type: does not use Housing: house Current gender identity: male What type of physical activity do you participate in: none Do you feel safe at home: Yes Do you feel safe in your relationship?: Yes Exam Narrative Exam Narrative: 1.Const: Well-nourished, Well-developed, appearing stated age 2.Eyes: PERRL, no conjunctival injection, and symmetrical lids. 3.ENT: Atraumatic external nose and ears. Moist MM. Neck: Symmetric, trachea midline, No thyromegaly. 4.CVS: +S1/S2, No murmurs or gallops. Peripheral pulses 2+ and equal in all extremities. Brisk capillary refill in all extremities. 5.RESP: Unlabored respiratory effort. Scattered rhonchi. 6.GI: Soft, Nontender/Nondistended, No hepatosplenomegaly. No guarding or rebound. 7.MSK: Normocephalic/Atraumatic, Extremities w/o deformity or ttp No cyanosis or clubbing, Normal movement of all extremities 8.Skin: Warm, Dry. No rashes or lesions. 9.Neuro: manager of pmo II-XII grossly intact. Sensation grossly intact, no focal neurolo gic deficits. 10.Psych: (AAO) x3. Appropriate mood and affect Course Vital Signs Vital signs: Vital Signs Temperature 36.4 C 01/25/23 21:08 Pulse 107 H 01/25/23 21:08 Respiratory Rate 20 01/25/23 21:08 Blood Pressure 135/80 01/25/23 21:08 Pulse Oximetry 100 01/25/23 21:08 Temperature 36.3 C L 01/26/23 01:17 Temperature Source Tympanic 01/26/23 01:17 Pulse 61 01/26/23 02:33 Pulse Rhythm Regular 01/26/23 01:06 Respiratory Rate 28 H 01/26/23 01:17 Respiratory Effort Normal, Non-Labored 01/26/23 01:06 Respiratory Depth Normal 01/26/23 01:06 Respiratory Pattern Tachypnea 01/26/23 01:06 Blood Pressure 141/86 H 01/26/23 01:17 Blood Pressure Position Sitting 01/25/23 21:08 Pulse Oximetry 96 01/26/23 01:17 Oxygen Delivery Method Nasal Cannula 01/26/23 01:17 Oxygen Flow Rate 4 01/26/23 01:17 Pain Level 0 01/26/23 01:17 Lab/Test Results Lab/Test Results: Laboratory Tests Range/Units 01/25/23 01/25/23 01/25/23 21:50 21:50 21:50 WBC (4.4-10.8) 10^3/uL 10.54 RBC (4.36-5.78) 10^6/uL 5.58 Hgb (13.5-17.5) g/dL 16.6 Hct (40.0-50.0) % 52.2 H MCV (80-95) fL 94 MCH (27.0-33.0) pg 29.7 MCHC (32.0-36.0) % 31.8 L RDW (11.8-14.1) % 14.9 H Plt Count (130-400) 10^3/uL 271 MPV (8.0-11.0) fL 9.6 Immature Gran % 1.4 Neutrophils % 92.8 Lymphocytes % 3.7 Monocytes % 1.6 Eosinophils % 0.1 Basophils % 0.4 Nucleated RBC % (0.0-0.3) % 0.0 Absolute Neutrophils (1.2-6.7) 10^3/uL 9.78 H Absolute Lymphocytes (1.2-3.4) 10^3/uL 0.39 L Absolute Monocytes (0.1-0.8) 10^3/uL 0.17 Absolute Eosinophils (0.0-0.7) 10^3/uL 0.01 Absolute Basophils (0.0-0.2) 10^3/uL 0.04 Sodium (136-145) mmol/L 139 Potassium (3.5-5.1) mmol/L 4.1 Chloride (98-107) mmol/L 99 Carbon Dioxide (21.0-32.0) mmol/L 20.7 L Anion Gap (3-11) mmol/L 19.3 H BUN (7-18) mg/dL 31 H Creatinine (0.70-1.30) mg/dL 1.3 Est GFR (CKD-EPI 2020) (mL/min/1.73m2) 58.37 Glucose (74-106) mg/dL 194 H Hemoglobin A1c (<5.7) % Calcium (8.5-10.1) mg/dL 10.1 Total Bilirubin (0.2-1.0) mg/dL 1.0 AST (15-37) U/L 18 ALT (16-63) U/L 14 L Alkaline Phosphatase (46-116) U/L 145 H Troponin I (<or=60) ng/L < 50 Total Protein (6.4-8.2) g/dL 8.9 H Albumin (3.4-5.0) g/dL 3.6 Range/Units 01/25/23 21:50 WBC (4.4-10.8) 10^3/uL RBC (4.36-5.78) 10^6/uL Hgb (13.5-17.5) g/dL Hct (40.0-50.0) % MCV (80-95) fL MCH (27.0-33.0) pg MCHC (32.0-36.0) % RDW (11.8-14.1) % Plt Count (130-400) 10^3/uL MPV (8.0-11.0) fL Immature Gran % Neutrophils % Lymphocytes % Monocytes % Eosinophils % Basophils % Nucleated RBC % (0.0-0.3) % Absolute Neutrophils (1.2-6.7) 10^3/uL Absolute Lymphocytes (1.2-3.4) 10^3/uL Absolute Monocytes (0.1-0.8) 10^3/uL Absolute Eosinophils (0.0-0.7) 10^3/uL Absolute Basophils (0.0-0.2) 10^3/uL Sodium (136-145) mmol/L Potassium (3.5-5.1) mmol/L Chloride (98-107) mmol/L Carbon Dioxide (21.0-32.0) mmol/L Anion Gap (3-11) mmol/L BUN (7-18) mg/dL Creatinine (0.70-1.30) mg/dL Est GFR (CKD-EPI 2020) (mL/min/1.73m2) Glucose (74-106) mg/dL Hemoglobin A1c (<5.7) % 5.5 Calcium (8.5-10.1) mg/dL Total Bilirubin (0.2-1.0) mg/dL AST (15-37) U/L ALT (16-63) U/L Alkaline Phosphatase (46-116) U/L Troponin I (<or=60) ng/L Total Protein (6.4-8.2) g/dL Albumin (3.4-5.0) g/dL
[2023-01-26 06:42] LABS: HCT 42.9 % (40.0-50.0); HGB 14.1 g/dL (13.5-17.5); MCH 30.2 pg (27.0-33.0); MCHC 32.9 % (32.0-36.0); MCV 92 fL (80-95); Platelet Count 237 10^3/uL (130-400); RBC 4.67 10^6/uL (4.36-5.78); RDW 14.8 % (11.8-14.1); RDW-SD 49.5 fL; WBC 11.62 10^3/uL (4.4-10.8)
[2023-01-26 07:05] LABS: ALT 7 U/L (16-63); AST 15 U/L (15-37); Albumin 2.8 g/dL (3.4-5.0); Alkaline Phosphatase 115 U/L (46-116); Anion Gap 13.3 mmol/L (3-11); BUN 30 mg/dL (7-18); Bilirubin, Total 0.4 mg/dL (0.2-1.0); CO2 21.7 mmol/L (21.0-32.0); CREATININE 0.9 mg/dL (0.70-1.30); Calcium 9.1 mg/dL (8.5-10.1); Chloride 105 mmol/L (98-107); Estimated GFR 90.74 (mL/min/1.73m2); Glucose 163 mg/dL (74-106); Magnesium 1.6 mg/dL (1.8-2.4); Potassium 3.5 mmol/L (3.5-5.1); Sodium 140 mmol/L (136-145); Total Protein 7.1 g/dL (6.4-8.2)
[2023-01-26] MEDS: Polyethylene Glycol 3350 17 GM PACKET PO (07:40)
[2023-01-26] MEDS: Gabapentin 300 MG CAP PO ×3 (07:40→21:14)
[2023-01-26] MEDS: Multivitamin w/Minerals TAB 1 TAB PO (07:40)
[2023-01-26] MEDS: Aspirin 81 MG CHEW 162 MG PO (07:40)
[2023-01-26] MEDS: Pantoprazole 40 MG TABCR PO (07:40)
[2023-01-26] MEDS: Cholecalciferol (Vitamin D3) 1,000 UNIT TAB 2000 UNITS PO (07:40)
[2023-01-26] MEDS: Ascorbic Acid 500 MG TAB PO (07:40)
[2023-01-26] MEDS: Tiotropium/Olodaterol 10 PUFF INHALER 2 PUFF IH (08:24)
[2023-01-26] MEDS: Acetaminophen 325 MG TAB PO (08:53)
[2023-01-26] MEDS: Ferrous Gluconate 324 MG TAB PO ×2 (09:54→21:14)
--- NOTE | 2023-01-26 12:32 | W.PM.PROGNOT ---
Date of Service Date of service: 01/26/23 Time of Service: 12:33 Assessment and Plan Assessment and plan (1) Pneumonia: Status: Acute Assessment and plan: continue ceftriaxone and doxycycline day 2/5 continue pulmonary toilet, cough deep breath, nebulizers wean oxygen as tolerated. (2) Hypoxia: Status: Acute Assessment and plan: New onset patient having significant lung disease chronically. Reevaluate need for long-term oxygen after pneumonia has cleared. 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 (4) Hypertension: Status: Chronic Assessment and plan: Continue outpatient medical therapy monitoring and adjust as needed. (5) CAD (coronary artery disease): Status: Chronic Assessment and plan: Continue outpatient medical therapy and risk control. Patient is DNR/DNI. (6) Afib: Assessment and plan: monitor for rate control with low-dose metoprolol. digoxin Watch for recurrent bradycardia. (7) Borderline hyperglycemia: Status: Acute Assessment and plan: hemoglobin A1c 5.5 no further intervention needed discussed with DR Monroe Subjective Subjective Patient reports: tolerating liquids well, tolerating a regular diet, shortness of breath and afebrile Interval history since last seen: still requiring oxygen Exam Const General: frail appearing (older than stated age) and ill appearing acutely and chronically Nutritional Appearance: cachectic Orientation: alert, awake and oriented x3 HENMT Head: normal to inspection, normocephalic and atraumatic Resp Auscultation: diminished lung sounds, no rhonchi and no wheezes Cardio Rate: regular rate Rhythm: regular rhythm Skin General skin exam: dry skin (ashen) Neuro General: patient alert, patient awake, patient oriented x3, tone normal and no focal motor deficits Extrem General: normal to inspection, full ROM and no pedal edema Objective Last Vital Signs Temp 36.1 C L 01/26/23 11:09 Pulse 89 01/26/23 11:09 Resp 18 01/26/23 11:09 BP 116/78 01/26/23 11:09 Pulse Ox 95 01/26/23 11:09 Laboratory Results - last 24 hr 01/25/23 01/25/23 01/25/23 21:50 21:50 21:50 WBC 10.54 RBC 5.58 Hgb 16.6 Hct 52.2 H MCV 94 MCH 29.7 MCHC 31.8 L RDW 14.9 H Plt Count 271 MPV 9.6 Immature Gran % 1.4 Neutrophils % 92.8 Lymphocytes % 3.7 Monocytes % 1.6 Eosinophils % 0.1 Basophils % 0.4 Nucleated RBC % 0.0 Absolute Neutrophils 9.78 H Absolute Lymphocytes 0.39 L Absolute Monocytes 0.17 Absolute Eosinophils 0.01 Absolute Basophils 0.04 Sodium 139 Potassium 4.1 Chloride 99 Carbon Dioxide 20.7 L Anion Gap 19.3 H BUN 31 H Creatinine 1.3 Est GFR (CKD-EPI 2020) 58.37 Glucose 194 H Hemoglobin A1c Calcium 10.1 Magnesium Total Bilirubin 1.0 AST 18 ALT 14 L Alkaline Phosphatase 145 H Troponin I < 50 Total Protein 8.9 H Albumin 3.6 COVID-19 Source SARS-CoV-2 (PCR) Influenza Type A (PCR) Influenza Type B (PCR) RSV (PCR) 01/25/23 01/26/23 01/26/23 21:50 00:52 00:52 WBC RBC Hgb Hct MCV MCH MCHC RDW Plt Count MPV Immature Gran % Neutrophils % Lymphocytes % Monocytes % Eosinophils % Basophils % Nucleated RBC % Absolute Neutrophils Absolute Lymphocytes Absolute Monocytes Absolute Eosinophils Absolute Basophils Sodium Potassium Chloride Carbon Dioxide Anion Gap BUN Creatinine Est GFR (CKD-EPI 2020) Glucose Hemoglobin A1c 5.5 Calcium Magnesium Total Bilirubin AST ALT Alkaline Phosphatase Troponin I < 50 Total Protein Albumin COVID-19 Source Nasopharynx SARS-CoV-2 (PCR) Negative Influenza Type A (PCR) Negative Influenza Type B (PCR) Negative RSV (PCR) Negative 01/26/23 01/26/23 05:38 05:38 WBC 11.62 H RBC 4.67 Hgb 14.1 D Hct 42.9 MCV 92 MCH 30.2 MCHC 32.9 RDW 14.8 H Plt Count 237 MPV 10.0 Immature Gran % Neutrophils % Lymphocytes % Monocytes % Eosinophils % Basophils % Nucleated RBC % Absolute Neutrophils Absolute Lymphocytes Absolute Monocytes Absolute Eosinophils Absolute Basophils Sodium 140 Potassium 3.5 Chloride 105 Carbon Dioxide 21.7 Anion Gap 13.3 H BUN 30 H Creatinine 0.9 Est GFR (CKD-EPI 2020) 90.74 Glucose 163 H Hemoglobin A1c Calcium 9.1 Magnesium 1.6 L Total Bilirubin 0.4 AST 15 ALT 7 L Alkaline Phosphatase 115 Troponin I Total Protein 7.1 Albumin 2.8 L COVID-19 Source SARS-CoV-2 (PCR) Influenza Type A (PCR) Influenza Type B (PCR) RSV (PCR) Time Spent with Patient Time Spent with Patient: 25-34 minutes Time was spent: preparing to see the patient(eg.review tests), obtaining and/or reviewing separately otained hiistory, ordering medications,tests, procedures, indepentently interpreting results and counseling the patient
[2023-01-26] MEDS: Heparin 5,000 UNITS/ML VIAL 5000 UNITS SC (13:30)
[2023-01-26] MEDS: Albuterol/Ipratropium 3 ML UPD VIAL UPD (13:34)
--- NOTE | 2023-01-26 14:36 | PDOC.CMIN ---
Date of service: 01/26/23 Time of Service: 14:37 Care Management Initial Assmt Initial Assessment REASON FOR HOSPITALIZATION:: Pneumonia with Hypoxia PREVIOUS FUNCTIONAL STATUS/SOCIAL/FAMILY SUPPORTS:: Ilia lives in an apartment in [facility] with a roommate Lyudmila and a cat. He states he is independent with his ADLs at baseline. He says when home, he gets around his apartment by hanging on to things such as countertops and furniture. Ilia has several chronic health issues and is followed in the community by Palliative Care. CURRENT FUNCTIONAL STATUS:: Ilia is sitting in a chair eating his lunch when CM comes to meet with him. He shares he wants to go home but is agreeable to staying at the hospital until the pneumonia has resolved. He has been at [facility] in the past but is not interested in going to a short-term rehab to regain strength at this time. ADVANCE DIRECTIVES:: On file; sister Chrissy Stewart is appointed as Health Care Agent. Has patient been provided with info about the portal/API?: Yes Did the patient sign up for the portal?: No CODE STATUS:: DNR/DNI INSURANCE COVERAGE / FINANCIAL ISSUES:: Medicare and Medicaid. CURRENT HOME/COMMUNITY SERVICES/EQUIPMENT:: Palliative Care and HH RN, OT, PT. Patient relies on [facility] for transportation needs in the community. Prior assessment notes he has a cane at home but patient denies having a cane and says he would like one for home use. PRIMARY CARE PHYSICIAN:: Silvina Perdue MD POTENTIAL DISCHARGE NEEDS:: Follow up appointments with PCP and medical records technician and resumption of HH RN, PT and OT. PATIENT/FAMILY EDUCATION NEEDS:: Review of discharge instructions including medications, limitations and follow up plan of care; discuss Ask Me Three and self management. ANTICIPATED BARRIERS TO DISCHARGE:: None identified at this time. TRANSPORTATION:: Via [facility] [employer] flatbed driver. PLAN:: Ilia will likely be discharged home with a resumption of HH RN, PT and OT when medically cleared by provider. [facility] will evaluate his need for home O2 prior to discharge. He will follow up with his PCP, pulmonology, and plan of care as instructed. He will be transported home via [facility] [employer] flatbed driver coordinated by CM when ready. CM will continue to follow. PFSH All Active Problems (Updated 01/26/23 @ 08:24 by Emile Espinal) Pneumonia (Acute) Hypoxemia (Acute) Borderline hyperglycemia (Acute) Pneumonia (Acute) Recurrent aspiration pneumonia (Acute) COPD exacerbation (Acute) Pneumonia (Acute) COPD exacerbation (Acute) Shortness of breath (Acute) Lung mass (Acute) Elevated troponin (Acute) Hypotension (Acute) DNR (do not resuscitate) (Acute) DNR, but would like trial of intubation. See 09/26 Note Acute bronchitis (Acute) Left foot pain (Acute) Palliative care patient (Acute) Underweight (Acute) Diastolic heart failure (Chronic) Closed intertrochanteric fracture of left femur (Acute) s/p IMN fixation (08/28/22) Fall (Acute) Blunt head trauma (Acute) Contusion of elbow, left (Acute) Contusion of left leg (Acute) Closed fracture of left hip (Acute) Mild cognitive impairment (Acute) Advanced care planning/counseling discussion (Acute) Literacy level of illiterate (Acute) Palliative care encounter (Acute) Acute on chronic right-sided congestive heart failure (Chronic) Pneumonia (Acute) Hypoxia (Acute) Depression (Chronic) Dental abscess (Acute) 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) Abnormal chest CT (Acute) Full code status (Acute) Urinary retention (Chronic) 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) CAP (community acquired pneumonia) (Acute) Generalized weakness (Acute) Skin tear of left elbow without complication (Acute) Chronic obstructive lung disease (Chronic) Tricuspid regurgitation (Chronic) CAD (coronary artery disease) (Chronic) Hypertension (Chronic) Medical History Abdominal pain Abnormal radiologic findings on diagnostic imaging of renal pelvis, ureter, or bladder Acute on chronic anemia Acute on chronic diastolic (congestive) heart failure Acute on chronic systolic CHF (congestive heart failure) Adenocarcinoma of esophagus From [facility]:Hx GI Cancer...EGD 04/2021 with friable mucosa. SDOne at that time because of GI blooed Afib Alcohol abuse Alcohol abuse, continuous drinking behavior Anemia Aspiration pneumonia Bilateral lower extremity edema CAD (coronary artery disease) of artery bypass graft Cerumen impaction CHF, acute on chronic Closed intertrochanteric fracture Confusion state COVID-19 COVID-19 Diabetes mellitus Difficulty reading Edema Encounter for colorectal cancer screening Epididymitis, right (08/02/16) Essential hypertension Failure to thrive Fall GERD (gastroesophageal reflux disease) GI bleed GI bleeding H/O malignant neoplasm of stomach Heart failure, left, with LVEF 41-49% History of fracture of left hip S/P IM NAIL DOS: 08/28/22 History of GI bleed Hoarseness Hydrocele, right (01/23/16) Hyperlipidemia Hypophosphatemia Kyphoscoliosis Low back pain Malnutrition Mild bibasilar atelectasis Pancreatitis Poor hygiene Prediabetes Protein malnutrition Pulmonary hypertension Recent weight loss Rib fractures Shortness of breath Solitary pulmonary nodule Tinnitus, left Tobacco abuse Weight loss Surgical History cardiac cath Coronary Artery Bypass Gaft (CABG) EGD - IV Sedation Esophagectomy H/O colonoscopy (2007) H/O colonoscopy (04/14/18) dr geller, sigmoid diverticulosis, repeat 10 years History of esophagogastroduodenoscopy (EGD) (09/2017) History of hydrocelectomy History of right inguinal hernia repair repair times two sugrical flap of unhealing wound Family History Mother No problems noted. Father No problems noted. Social History Smoking/Tobacco Use Status: Former Tobacco Use Smoking risk assessment performed?: Yes Alcohol Intake: former Drug use: Never Substance use type: does not use Housing: house Current gender identity: male What type of physical activity do you participate in: none Do you feel safe at home: Yes Do you feel safe in your relationship?: Yes
[2023-01-26] MEDS: Senna TAB 1 TAB PO (21:14)
[2023-01-26] MEDS: Tamsulosin 0.4 MG CAPCR PO (21:14)
[2023-01-26] MEDS: Atorvastatin 10 MG TAB PO (21:14)
[2023-01-26] MEDS: cefTRIAXone 1 GM/50 ML BAG IVPB (23:10)
[2023-01-27] VITALS (14 sets, daily range): BP systolic 93–106; BP diastolic 63–75; PULSE 58–94; RESP 1–20; TEMP 36.2–36.8; O2SAT 91–100
[2023-01-27] MEDS: Acetaminophen 325 MG TAB PO (00:50)
[2023-01-27] MEDS: Multivitamin w/Minerals TAB 1 TAB PO (07:43)
[2023-01-27] MEDS: Cholecalciferol (Vitamin D3) 1,000 UNIT TAB 2000 UNITS PO (07:43)
[2023-01-27] MEDS: Pantoprazole 40 MG TABCR PO (07:44)
[2023-01-27] MEDS: Ascorbic Acid 500 MG TAB PO (07:44)
[2023-01-27] MEDS: Gabapentin 300 MG CAP PO ×3 (07:45→21:31)
[2023-01-27] MEDS: Polyethylene Glycol 3350 17 GM PACKET PO (07:45)
[2023-01-27] MEDS: Aspirin 81 MG CHEW 162 MG PO (07:48)
[2023-01-27] MEDS: Tiotropium/Olodaterol 10 PUFF INHALER 2 PUFF IH (08:32)
[2023-01-27] MEDS: Normal Saline 1,000 ML 125 ML IV (08:46)
[2023-01-27] MEDS: Ferrous Gluconate 324 MG TAB PO ×2 (09:14→21:32)
[2023-01-27] MEDS: Albuterol/Ipratropium 3 ML UPD VIAL UPD ×2 (11:43→18:16)
[2023-01-27] MEDS: DOXYCYCLINE 100 MG in Normal Saline 100 ML IVPB ×2 (12:02→23:04)
[2023-01-27] MEDS: Metoprolol 12.5 MG TAB PO (12:03)
--- NOTE | 2023-01-27 13:28 | W.PM.PROGNOT ---
Date of Service Date of service: 01/27/23 Time of Service: 13:28 Assessment and Plan Assessment and plan (1) Pneumonia: Status: Acute Assessment and plan: patient responding to current regimen, weaned off oxygen continue ceftriaxone and doxycycline day 3/5 continue pulmonary toilet, cough deep breath, nebulizers respiratory panel negative for covid/influenza/rsv (2) Hypoxia: Status: Resolved Assessment and plan: weaned off (3) Combined pulmonary fibrosis and emphysema (CPFE): Status: Chronic Assessment and plan: Continue respiratory care and follow-up outpatient with pulmonology (4) Hypertension: Status: Chronic Assessment and plan: Continue outpatient medical therapy monitoring and adjust as needed. (5) CAD (coronary artery disease): Status: Chronic Assessment and plan: Continue outpatient medical therapy and risk control. Patient is DNR/DNI. (6) Afib: Assessment and plan: rate controlled on metoprolol and digoxin digoxin level in 06.07 continue to monitor (7) Borderline hyperglycemia: Status: Acute Assessment and plan: hemoglobin A1c 5.5 no further intervention needed (8) DVT prophylaxis: Status: Acute Assessment and plan: heparin subcu (9) Discharge planning issues: Status: Acute Assessment and plan: will place physical therapy consult for discharge planning case management following discussed with Dr Monroe Subjective Subjective Patient reports: no new complaints, tolerating liquids well, tolerating a regular diet, shortness of breath (improving) and afebrile Interval history since last seen: weaned off oxygen Exam Const General: frail appearing (older than stated age) and ill appearing acutely and chronically Nutritional Appearance: cachectic Orientation: alert, awake and oriented x3 HENMT Head: normal to inspection, normocephalic and atraumatic Resp Auscultation: diminished lung sounds, no rhonchi and no wheezes Cardio Rate: regular rate Rhythm: regular rhythm Skin General skin exam: dry skin (ashen) Neuro General: patient alert, patient awake, patient oriented x3, tone normal and no focal motor deficits Extrem General: normal to inspection, full ROM and no pedal edema Objective Last Vital Signs Temp 36.2 C L 01/27/23 11:15 Pulse 68 01/27/23 11:53 Resp 18 01/27/23 11:53 BP 105/75 01/27/23 11:15 Pulse Ox 99 01/27/23 11:53 Time Spent with Patient Time Spent with Patient: 25-34 minutes Time was spent: preparing to see the patient(eg.review tests), ordering medications,tests, procedures, referring, communicating with other health caretaker resort, indepentently interpreting results, counseling the patient and care coordination
[2023-01-27] MEDS: Heparin 5,000 UNITS/ML VIAL 5000 UNITS SC ×2 (14:07→21:33)
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
[2023-01-27] MEDS: MAGNESIUM SULFATE 2 GM/50 ML BAG IVPB (15:11)
--- NOTE | 2023-01-27 15:33 | CMPROGNOTE_ITS ---
Date of service: 01/27/23 Time of Service: 15:33 Care Management Progress Note Progress Note Text Progress Note Text: S/O: Ilia is feeling better today and no longer requires O2. He is looking forward to returning home and tells CM there is nothing he's doing in the hospital that he couldn't be doing at home. He, however, is agreeable to remaining at [facility] until he is medically cleared by provider. He is on day 3 of a 5 day course of IV abx. A: Ilia is a 72 year old male admitted to [facility] for pneumonia with hypoxia. P: Ilia will likely be discharged home with a resumption of RN, PT and OT when medically cleared by provider. He will follow up with his PCP, pulmonology and plan of care as instructed. He will be transported home via [facility] coordinated by CM when ready. CM will continue to follow.
--- NOTE | 2023-01-27 17:52 | NUR.NOTE ---
Nursing Note: Around 1700 hrs., Lyudmila (friend & room mate of this patient) called telling this procedure writer that patient had experienced of having nurse visit at home but did not do well, stated that patient was non compliant for the care and unable to take home meds independently. Lyudmila suggested to put him on facility with 24 hrs. care, she will discuss this matter to the health team tomorrow. Update was given per note of daytime caregiver this morning.
[2023-01-27] MEDS: Tamsulosin 0.4 MG CAPCR PO (21:31)
[2023-01-27] MEDS: Atorvastatin 10 MG TAB PO (21:31)
[2023-01-27] MEDS: Senna TAB 1 TAB PO (21:32)
[2023-01-27] MEDS: Mirtazapine 15 MG TAB 7.5 MG PO (21:32)
[2023-01-27] MEDS: cefTRIAXone 1 GM/50 ML BAG IVPB (23:05)
[2023-01-28] VITALS (15 sets, daily range): BP systolic 94–126; BP diastolic 61–67; PULSE 52–103; RESP 1–20; TEMP 36.3–36.7; O2SAT 92–99
[2023-01-28] MEDS: Acetaminophen 325 MG TAB PO ×4 (01:05→21:23)
[2023-01-28] MEDS: Heparin 5,000 UNITS/ML VIAL 5000 UNITS SC ×3 (06:12→20:12)
[2023-01-28 07:00] LABS: Abs Immature Grans 0.39 10^3/uL (0.0-0.06); Absolute Basophil Count 0.09 10^3/uL (0.0-0.2); Absolute Eosinophil Count 0.28 10^3/uL (0.0-0.7); Absolute Lymphocyte Count 1.41 10^3/uL (1.2-3.4); Absolute Monocyte Count 1.15 10^3/uL (0.1-0.8); Absolute Neutrophil Count 4.68 10^3/uL (1.2-6.7); Basophils % 1.1; Eosinophils % 3.5; HCT 37.7 % (40.0-50.0); Immature Grans % 4.9; Lymphocytes % 17.6; MCH 30.2 pg (27.0-33.0); MCHC 31.8 % (32.0-36.0); MCV 95 fL (80-95); Monocytes % 14.4; Neutrophils % 58.5; Platelet Count 194 10^3/uL (130-400); RBC 3.98 10^6/uL (4.36-5.78); RDW 15.4 % (11.8-14.1); RDW-SD 53.3 fL
[2023-01-28 07:16] LABS: Anion Gap 11.1 mmol/L (3-11); BUN 30 mg/dL (7-18); CO2 19.9 mmol/L (21.0-32.0); CREATININE 0.8 mg/dL (0.70-1.30); Chloride 110 mmol/L (98-107); Estimated GFR 94.03 (mL/min/1.73m2); Glucose 82 mg/dL (74-106); Magnesium 1.8 mg/dL (1.8-2.4); Potassium 3.9 mmol/L (3.5-5.1); Sodium 141 mmol/L (136-145)
[2023-01-28] MEDS: Polyethylene Glycol 3350 17 GM PACKET PO (08:06)
[2023-01-28] MEDS: Cholecalciferol (Vitamin D3) 1,000 UNIT TAB 2000 UNITS PO (08:07)
[2023-01-28] MEDS: Multivitamin w/Minerals TAB 1 TAB PO (08:07)
[2023-01-28] MEDS: Ascorbic Acid 500 MG TAB PO (08:08)
[2023-01-28] MEDS: Aspirin 81 MG CHEW 162 MG PO (08:09)
[2023-01-28] MEDS: Pantoprazole 40 MG TABCR PO (08:09)
[2023-01-28] MEDS: Gabapentin 300 MG CAP PO ×3 (08:09→20:11)
[2023-01-28] MEDS: Tiotropium/Olodaterol 10 PUFF INHALER 2 PUFF IH (08:39)
--- NOTE | 2023-01-28 09:53 | PT.INNT ---
PT Notes Visit Reasons: Pneumonia with Hypoxemia Attempted to get patient out of bed for mobility assessment but patient refused stating that he has been trying to get sleep as he only was able to sleep at 5 Am this morning per Nurse Rosa. Patient did agree to be seen before lunch. Will keep on trying to enagae patient who appears to be withdrawn and needing motivation to participate after he has taken his rest.
[2023-01-28] MEDS: Ferrous Gluconate 324 MG TAB PO ×2 (09:55→20:11)
--- NOTE | 2023-01-28 11:39 | IN_ITS ---
Date of service: 01/28/23 Time of Service: 11:07 PT Notes Visit Reasons: Pneumonia with Hypoxemia Inpatient Physical Therapy Evaluation Date: 01/28/2023 Referring Doctor:?Kassandra Esparza,? [employer] PT Orders: PT CONSULT: Eval/Treat Precautions: Fall. Standard.? Activity as tolerated. Patient Profile/Admitting Diagnosis:?? Patient is a 72-year-old male with complex medical history who presented to the ED on 01/06/2023 due to shortness of breath and generalized weakness.? Patient is admitted to [facility] for management of pneumonia, combined pulomonary fibrosis and emphysema, HTN, CAD, atrial fibrillation and borderline hyperglycemia. PMHX: All Active Problems?(Updated 01/26/23 @ 08:24 by Emile Espinal) Pneumonia (Acute) Hypoxemia (Acute) Borderline hyperglycemia (Acute) Pneumonia (Acute) Recurrent aspiration pneumonia (Acute) COPD exacerbation (Acute) Pneumonia (Acute) COPD exacerbation (Acute) Shortness of breath (Acute) Lung mass (Acute) Elevated troponin (Acute) Hypotension (Acute) DNR (do not resuscitate) (Acute) DNR, but would like trial of intubation. See 09/26 NoteAcute bronchitis (Acute) Left foot pain (Acute) Palliative care patient (Acute) Underweight (Acute) Diastolic heart failure (Chronic) Closed intertrochanteric fracture of left femur (Acute) s/p IMN fixation (08/28/22)Fall (Acute) Blunt head trauma (Acute) Contusion of elbow, left (Acute) Contusion of left leg (Acute) Closed fracture of left hip (Acute) Mild cognitive impairment (Acute) Advanced care planning/counseling discussion (Acute) Literacy level of illiterate (Acute) Palliative care encounter (Acute) Acute on chronic right-sided congestive heart failure (Chronic) Pneumonia (Acute) Hypoxia (Acute) Depression (Chronic) Dental abscess (Acute) 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 Abdominal pain Abnormal radiologic findings on diagnostic imaging of renal pelvis, ureter, or bladder Acute on chronic anemia Acute on chronic diastolic (congestive) heart failure Acute on chronic systolic CHF (congestive heart failure) [place] [facility] [place]...EGD 04/2021 with friable mucosa. SDOne at that time because of GI blooedAfib Alcohol abuse Alcohol abuse, continuous drinking behavior Anemia Aspiration pneumonia Bilateral lower extremity edema CAD (coronary artery disease) of artery bypass graft Cerumen impaction CHF, acute on chronic Closed intertrochanteric fracture Confusion state COVID-19 Diabetes mellitus Difficulty reading Edema Encounter for colorectal cancer screening Epididymitis, right (08/02/16) Essential hypertension Failure to thrive Fall GERD (gastroesophageal reflux disease) GI bleed GI bleeding H/O malignant neoplasm of stomach Heart failure, left, with LVEF 41-49% History of fracture of left hip S/P IM NAIL DOS: 08/28/22History of GI bleed Hoarseness Hydrocele, right (01/23/16) Hyperlipidemia Hypophosphatemia Kyphoscoliosis Low back pain Malnutrition Mild bibasilar atelectasis Pancreatitis Poor hygiene Prediabetes Protein malnutrition Pulmonary hypertension Recent weight loss Rib fractures Shortness of breath Solitary pulmonary nodule Tinnitus, left Tobacco abuse Weight loss Surgical History? cardiac cath Coronary Artery Bypass Gaft (CABG) EGD - IV Sedation Esophagectomy H/O colonoscopy (2007) H/O colonoscopy (04/14/18) dr geller, sigmoid diverticulosis, repeat 10 years History of esophagogastroduodenoscopy (EGD) (09/2017) History of hydrocelectomy History of right inguinal hernia repair repair times two sugrical flap of unhealing wound Social History/Home Situation:? Lives in an apartment.? Friend Lyudmila who lives in the apartment across from him helps out with?grocery shopping.? Able to heat up meals on wheels.? States that he walks with FWW indoors.? Has 5 steps to enter the apartment building with a rail on one side. Equipment Owned/DME: FWW x 2 Subjective:? Initially refused Pt eval this morning but was agreeable with the second attempt. Denied pain, lightheadedness, and headache throughout. Agreeable to doing short-term rehab priorto going home so he can regain strength and independent mobility level. Wanted a drink of milk. Objective:? General Observation: Pleasant and cooperative, frail-appearing. Mental Status: A&Ox2 Pain: None reported ROM: Right Upper Extremity: ? Shoulder Flexion WFL. Shoulder abduction WFL. Elbow flexion WFL. Wrist flexion WFL. Functional opening and closing of hand WFL. Left Upper Extremity:? Shoulder Flexion WFL. Shoulder abduction WFL. Elbow flexion WFL. Wrist flexion WFL. Functional opening and closing of hand WFL. Right Lower Extremity: Hip flexion WFL. Hip abduction WFL. Knee flexion WFL. Ankle dorsiflexion WFL. Ankle plantarflexion WFL. Left Lower Extremity: Hip flexion WFL. Hip abduction WFL. Knee flexion WFL. Ankle dorsiflexion WFL. Ankle plantarflexion WFL. Strength: Right Upper Extremity: Shoulder flexors 3/5. Shoulder abductors 3/5. Elbow flexors 4/5. Elbow extensors 4/5. Fire Protection Designer strong. Left Upper Extremity: Shoulder flexors 3/5. Shoulder abductors 3/5. Elbow flexors 4/5. Elbow extensors 4/5. Fire Protection Designer strong. Right Lower Extremity: Hip flexors 4-/5.? Hip flexors left 4-/5. Hip abductors 4-/5. Knee flexors 4-/5. Knee extensors 4-/5. Ankle dorsiflexors 4-/5. Ankle plantarflexors 4/5. Left Lower Extremity: Hip flexors 4-/5.? Hip flexors left 4-/5. Hip abductors 4- /5. Knee flexors 4-/5. Knee extensors 4-/5. Ankle dorsiflexors 4-/5. Ankle plantarflexors 4/5. Bed Mobility/Transfers: Supine to sit: minimal assist Sit-stand: minimal assist with FWW, cues provided for hand placement and movement sequence Stand-sit: minimal assist with FWW, cues provided for hand placement and movement sequence Gait:? 40 feet + 40 feet with minimal assist,? using FWW with wheelchair follow.? Glenys slowed.? VS WNL right after short distance ambulation. Did report fatigue and rested for about 5 minutes on wheelchair prior to walking back to room. Thoracic kyphosis. Balance:? Static Sitting: Normal Dynamic Sitting: Good Static Standing: Fair Dynamic Standing: Fair Special Tests: Mobility Limitations Standardized Measure [facility] AM-PAC 6 clicks Basic Mobility Inpatient Short Form: Raw Score: 18? CMS Score: 47% deficit 4-Stage Balance test: Unable to maintain all 4 positions for 10 seconds indincating a high fall risk. Informed Consent/Education:? Patient instructed in purpose of PT consult and plan of care. Agreeable to PT POC to address functional deficits below. Facilitated safe positioning on bedside recliner to reduce fall risk. Assessment:?? Patient presents with functional mobility decline, generalized weakness, and dependence in ADLs requiring short-term rehab placement prior to D/C to home. Patient presents with clinical signs and symptoms consistent with current/admitting diagnoses that have resulted to mobility limitations, gait instability, generalized weakness, and overall ADL decline as demonstrated by the following impairment level findings: 1.? Decreased strength to B UE/LE major muscle groups 2.? Impaired sitting/standing balance 3.? Impaired activity tolerance Impairments are contributing to the following functional limitations: 1.? Decline in bed mobility skills 2.? Decline in transfer skills 3.? Difficulty with ambulation without assistive device and physical assistance 4.? Increased completion time for mobility ADL performance 5.? Increased risk for falls 6.? Difficulty with managing steps alone safely Patient is assessed as a 17056 moderate complexity based on the following: History: 72-year-old female with past medical history as indicated above Examination: Demonstrable impairment in strength, balance, and mobility level with underlying impairments and functional limitations as exhibited above as well as deficit score of 47% utilizing the [facility] Mobility Inpatient Short Form Presentation: Evolving Decision Makin moderate complexity Goals: Goals X1 week 1. Supine-Sit independent 2. Sit-Supine independent 3. Sit-Stand independent with FWW 4. Stand-Sit independent with FWW 5. Bed-Chair independent with FWW 6. Chair-Bed independent with FWW 7. Independent gait on level surface with use of FWW for at least 200 feet without report of pain nor dyspnea 8. Independent stair negotiation while holding onto bilateral rails for at least 5 steps without report of pain nor dyspnea 9. Independent with home exercise program 10. Good static and dynamic standing balance/tolerance Plan of Care/Treatment Plan: 1-2x/day, 7 days/week x 1 week. Plan of care has been reviewed with the DIRECTOR INDUSTRIAL providing the service under Physical Therapy direction. Initiate Physical Therapy intervention for strengthening, bed mobility, transfers, gait, stairs, balance training, use of assistive device. DISCHARGE RECOMMENDATIONS: Patient will benefit from senior living facility placement for continued skilled physical therapy services in order to progress mobility level, strength, and balance in preparation for a safe discharge to home. TREATMENT CODE/TIME: 88160 x 27 minutes (1 unit) beginning at 11:07 AM. Thank you for the opportunity to participate in the care of this patient. Savanna Banks PT, DPT, CLT [facility] [place], [place]
[2023-01-28] MEDS: DOXYCYCLINE 100 MG in Normal Saline 100 ML IVPB (12:04)
[2023-01-28] MEDS: Albuterol/Ipratropium 3 ML UPD VIAL UPD ×3 (12:59→23:22)
--- NOTE | 2023-01-28 14:22 | PDOC.CMPRO ---
Date of service: 01/28/23 Time of Service: 14:22 Care Management Progress Note Progress Note Text Progress Note Text: S/O:? Ilia remains inpatient and continues to look forward to returning home. He is on day 4 of a 5 day course of IV abx. He is up walking in the hallway with one assist, and remains on room air. Anticipate continued evaluation to determine if SNF will be recommended upon discharge, and if Ilia would be agreeable, thus far he has stated he wants to return home, however he has been hosptialized six times in the last year, often with SNF stays post discharge. CM continues to follow. A:? Ilia is a 72 year old male admitted to [facility] for pneumonia with hypoxia. P:? Ilia will discharged home with a resumption of HH RN, PT and OT-vs-SNF when medically cleared by provider.? He will follow up with his PCP, pulmonology and plan of care as instructed.? He will be transported home via RCT coordinated by CM when ready.? CM will continue to follow.
--- NOTE | 2023-01-28 14:51 | W.PM.PROGNOT ---
Date of Service Date of service: 01/28/23 Time of Service: 14:51 Assessment and Plan Assessment and plan (1) Pneumonia: Status: Acute Assessment and plan: patient responding to current regimen, stable off oxygen continue ceftriaxone and doxycycline day 4/5 continue pulmonary toilet, cough deep breath, nebulizers respiratory panel negative for covid/influenza/rsv (2) Combined pulmonary fibrosis and emphysema (CPFE): Status: Chronic Assessment and plan: Continue respiratory care and follow-up outpatient with pulmonology (3) Hypertension: Status: Chronic Assessment and plan: Continue outpatient medical therapy monitoring and adjust as needed. (4) CAD (coronary artery disease): Status: Chronic Assessment and plan: Continue outpatient medical therapy and risk control. Patient is DNR/DNI. (5) Afib: Assessment and plan: rate controlled on metoprolol and digoxin digoxin level in 06.07 continue to monitor (6) Borderline hyperglycemia: Status: Acute Assessment and plan: hemoglobin A1c 5.5 no further intervention needed (7) DVT prophylaxis: Status: Acute Assessment and plan: heparin subcu (8) Discharge planning issues: Status: Acute Assessment and plan: physical therapy consult for discharge planning, recommends additional rehab. consider inpatient vs home with home health case management following discussed with Dr Navarro Subjective Subjective Patient reports: no new complaints, feels better, tolerating liquids well, tolerating a regular diet and afebrile; denies shortness of breath Exam Const General: frail appearing (older than stated age) and ill appearing acutely and chronically Nutritional Appearance: cachectic Orientation: alert, awake and oriented x3 HENMT Head: normal to inspection, normocephalic and atraumatic Resp Auscultation: diminished lung sounds, no rhonchi and no wheezes Cardio Rate: regular rate Rhythm: regular rhythm Skin General skin exam: dry skin (ashen) Neuro General: patient alert, patient awake, patient oriented x3, tone normal and no focal motor deficits Extrem General: normal to inspection, full ROM and no pedal edema Objective Last Vital Signs Temp 36.7 C 01/28/23 11:10 Pulse 71 01/28/23 13:07 Resp 16 01/28/23 12:59 BP 100/64 01/28/23 11:10 Pulse Ox 96 01/28/23 12:59 Laboratory Results - last 24 hr 01/28/23 01/28/23 05:42 05:42 WBC 8.00 RBC 3.98 L Hgb 12.0 L D Hct 37.7 L MCV 95 MCH 30.2 MCHC 31.8 L RDW 15.4 H Plt Count 194 MPV 10.0 Immature Gran % 4.9 Neutrophils % 58.5 Lymphocytes % 17.6 Monocytes % 14.4 Eosinophils % 3.5 Basophils % 1.1 Nucleated RBC % 0.0 Absolute Neutrophils 4.68 Absolute Lymphocytes 1.41 Absolute Monocytes 1.15 H Absolute Eosinophils 0.28 Absolute Basophils 0.09 Sodium 141 Potassium 3.9 Chloride 110 H Carbon Dioxide 19.9 L Anion Gap 11.1 H BUN 30 H Creatinine 0.8 Est GFR (CKD-EPI 2020) 94.03 Glucose 82 Calcium 8.0 L Magnesium 1.8 Time Spent with Patient Time Spent with Patient: 25-34 minutes Time was spent: preparing to see the patient(eg.review tests), ordering medications,tests, procedures, referring, communicating with other health gericare aide teacher, indepentently interpreting results, counseling the patient and care coordination
[2023-01-28] MEDS: Metoprolol 12.5 MG TAB PO ×2 (17:30→23:23)
[2023-01-28] MEDS: Tamsulosin 0.4 MG CAPCR PO (20:11)
[2023-01-28] MEDS: Mirtazapine 15 MG TAB 7.5 MG PO (20:11)
[2023-01-28] MEDS: Senna TAB 1 TAB PO (20:11)
[2023-01-28] MEDS: Normal Saline Flush 10 ML SYR IVP (20:12)
[2023-01-28] MEDS: Atorvastatin 10 MG TAB PO (20:12)
[2023-01-28] MEDS: cefTRIAXone 1 GM/50 ML BAG IVPB (23:22)
[2023-01-29] VITALS (9 sets, daily range): BP systolic 100–108; BP diastolic 64–73; PULSE 77–98; RESP 14–18; TEMP 36–36.8; O2SAT 94–97
[2023-01-29] MEDS: DOXYCYCLINE 100 MG in Normal Saline 100 ML IVPB ×2 (00:51→11:58)
[2023-01-29] MEDS: Albuterol/Ipratropium 3 ML UPD VIAL UPD (06:16)
[2023-01-29] MEDS: Heparin 5,000 UNITS/ML VIAL 5000 UNITS SC ×3 (06:16→21:04)
[2023-01-29] MEDS: Aspirin 81 MG CHEW 162 MG PO (08:22)
[2023-01-29] MEDS: Cholecalciferol (Vitamin D3) 1,000 UNIT TAB 2000 UNITS PO (08:22)
[2023-01-29] MEDS: Multivitamin w/Minerals TAB 1 TAB PO (08:22)
[2023-01-29] MEDS: Gabapentin 300 MG CAP PO ×3 (08:23→21:04)
[2023-01-29] MEDS: Pantoprazole 40 MG TABCR PO (08:23)
[2023-01-29] MEDS: Ascorbic Acid 500 MG TAB PO (08:23)
[2023-01-29] MEDS: Tiotropium/Olodaterol 10 PUFF INHALER 2 PUFF IH (08:54)
[2023-01-29] MEDS: Ferrous Gluconate 324 MG TAB PO ×2 (09:45→21:04)
[2023-01-29] MEDS: Metoprolol 12.5 MG TAB PO ×2 (11:57→17:58)
--- NOTE | 2023-01-29 13:49 | PT.INNT ---
Date of service: 01/29/23 Time of Service: 09:14 PT Notes Visit Reasons: Pneumonia with Hypoxemia Patient refuses therapy at 9:14, states come back after 10:30, I'm gonna take a little snooze. Refuses at 10:55, stating he doesn't believe he'll be in the hospital much longer and wants to save his energy. Refuses at 1:50, stating he just doesn't feel up to it. Agreeable to try again tomorrow.
--- NOTE | 2023-01-29 14:07 | W.PM.PROGNOT ---
Date of Service Date of service: 01/29/23 Time of Service: 14:07 Assessment and Plan Assessment and plan (1) Pneumonia: Status: Acute Assessment and plan: patient responding to current regimen, stable off oxygen completed ceftriaxone and doxycycline day 10/08 continue pulmonary toilet, cough deep breath, nebulizers respiratory panel negative for covid/influenza/rsv (2) Combined pulmonary fibrosis and emphysema (CPFE): Status: Chronic Assessment and plan: Continue respiratory care and follow-up outpatient with pulmonology (3) Hypertension: Status: Chronic Assessment and plan: Continue outpatient medical therapy monitoring and adjust as needed. (4) CAD (coronary artery disease): Status: Chronic Assessment and plan: Continue outpatient medical therapy and risk control. Patient is DNR/DNI. (5) Afib: Assessment and plan: rate controlled on metoprolol and digoxin digoxin level in 06.07 continue to monitor (6) Borderline hyperglycemia: Status: Acute Assessment and plan: hemoglobin A1c 5.5 no further intervention needed (7) DVT prophylaxis: Status: Acute Assessment and plan: heparin subcu (8) Discharge planning issues: Status: Acute Assessment and plan: physical therapy consult for discharge planning, recommends additional rehab. consider inpatient vs home with home health case management following referrals sent for inpatient rehab and are pending discussed with Dr Navarro Subjective Subjective Patient reports: no new complaints, shortness of breath and afebrile Exam Const General: frail appearing (older than stated age) and ill appearing acutely and chronically Nutritional Appearance: cachectic Orientation: alert, awake and oriented x3 HENMT Head: normal to inspection, normocephalic and atraumatic Resp Auscultation: diminished lung sounds, no rhonchi and no wheezes Cardio Rate: regular rate Rhythm: regular rhythm Skin General skin exam: dry skin (ashen) Neuro General: patient alert, patient awake, patient oriented x3, tone normal and no focal motor deficits Extrem General: normal to inspection, full ROM and no pedal edema Objective Last Vital Signs Temp 36.4 C L 01/29/23 10:57 Pulse 98 H 01/29/23 10:57 Resp 14 01/29/23 10:57 BP 108/69 01/29/23 10:57 Pulse Ox 96 01/29/23 10:57 Time Spent with Patient Time Spent with Patient: 25-34 minutes Time was spent: preparing to see the patient(eg.review tests), ordering medications,tests, procedures, counseling the patient and care coordination
[2023-01-29 16:15] LABS: C Diff PCR Negative (Negative)
--- NOTE | 2023-01-29 18:24 | PDOC.CMPRO ---
Care Management Progress Note Progress Note Text Progress Note Text: S/O:CM was asked to meet with Ilia to discuss discharge planning concerns. PT completed an evaluation yesterday and recommended SNF for short term rehab. At first Ilia agreed and referrals were sent yesterday, This morning he told the provider that he did not want to wait until Tuesday to get a bed in a SNF. CM discussed with him the fact that he has discharged and needed to come back to the hospital within a short time on more than one occasion. When Ilia was asked if he really felt that he could manage independently at this time he stated no. He then agreed to wait until Tuesday when the referrals can be processed and hopefully he will receive a bed offer.? A:? Ilia is a 72 year old male admitted to [facility] for pneumonia with hypoxia. P:? PT has recommended that Ilia go to a SNF for short term rehab prior to returning home. Ilia agreed to consider going and referrals were sent to numerous SNFs in the area. It is likely the referrals will be reviewed on Tuesday and hopefully, Ilia will receive a bed offer.? CM will continue to follow and assess for discharge needs..
[2023-01-29] MEDS: Mirtazapine 15 MG TAB 7.5 MG PO (21:03)
[2023-01-29] MEDS: Atorvastatin 10 MG TAB PO (21:04)
[2023-01-29] MEDS: Tamsulosin 0.4 MG CAPCR PO (21:04)
[2023-01-29] MEDS: Senna TAB 1 TAB PO (21:04)
[2023-01-29] MEDS: Normal Saline Flush 10 ML SYR IVP (21:05)
[2023-01-29] MEDS: Cefpodoxime 200 MG TAB PO (22:42)
[2023-01-29] MEDS: Doxycycline Hyclate 100 MG CAP PO (22:42)
[2023-01-30] VITALS (8 sets, daily range): BP systolic 94–120; BP diastolic 56–79; PULSE 56–98; RESP 14–18; TEMP 35.9–37.1; O2SAT 93–99
[2023-01-30] MEDS: Metoprolol 12.5 MG TAB PO ×3 (00:09→17:47)
[2023-01-30] MEDS: Albuterol/Ipratropium 3 ML UPD VIAL UPD ×2 (00:09→06:18)
[2023-01-30] MEDS: Heparin 5,000 UNITS/ML VIAL 5000 UNITS SC ×3 (06:19→22:18)
[2023-01-30] MEDS: Tiotropium/Olodaterol 10 PUFF INHALER 2 PUFF IH (07:56)
[2023-01-30] MEDS: Polyethylene Glycol 3350 17 GM PACKET PO (08:15)
[2023-01-30] MEDS: Pantoprazole 40 MG TABCR PO (08:16)
[2023-01-30] MEDS: Aspirin 81 MG CHEW 162 MG PO (08:16)
[2023-01-30] MEDS: Gabapentin 300 MG CAP PO ×3 (08:16→19:23)
[2023-01-30] MEDS: Ascorbic Acid 500 MG TAB PO (08:16)
[2023-01-30] MEDS: Cholecalciferol (Vitamin D3) 1,000 UNIT TAB 2000 UNITS PO (08:16)
[2023-01-30] MEDS: Ferrous Gluconate 324 MG TAB PO ×2 (08:16→15:45)
[2023-01-30] MEDS: Multivitamin w/Minerals TAB 1 TAB PO (08:16)
[2023-01-30] MEDS: Doxycycline Hyclate 100 MG CAP PO ×2 (09:52→22:18)
[2023-01-30] MEDS: Cefpodoxime 200 MG TAB PO ×2 (09:52→22:18)
--- NOTE | 2023-01-30 13:57 | PT.INNT ---
Date of service: 01/30/23 PT Notes Visit Reasons: Pneumonia with Hypoxemia Patient refused therapy at 12:52 and 13:53 stating he is too tired, too weak, and does not feel like walking or doing exercise right now.
--- NOTE | 2023-01-30 15:17 | W.PM.PROGNOT ---
Date of Service Date of service: 01/30/23 Time of Service: 15:17 Assessment and Plan Assessment and plan (1) Pneumonia: Status: Acute Assessment and plan: patient responding to current regimen, stable off oxygen completed ceftriaxone and doxycycline day 5/5 now will complete 7 day course of cefpodoxime continue pulmonary toilet, cough deep breath, nebulizers respiratory panel negative for covid/influenza/rsv (2) Combined pulmonary fibrosis and emphysema (CPFE): Status: Chronic Assessment and plan: Continue respiratory care and follow-up outpatient with pulmonology (3) Hypertension: Status: Chronic Assessment and plan: Continue outpatient medical therapy monitoring and adjust as needed. (4) CAD (coronary artery disease): Status: Chronic Assessment and plan: Continue outpatient medical therapy and risk control. Patient is DNR/DNI. (5) Afib: Assessment and plan: rate controlled on metoprolol and digoxin digoxin level in 06.07 continue to monitor (6) Borderline hyperglycemia: Status: Acute Assessment and plan: hemoglobin A1c 5.5 no further intervention needed (7) DVT prophylaxis: Status: Acute Assessment and plan: heparin subcu (8) Discharge planning issues: Status: Acute Assessment and plan: physical therapy consult for discharge planning, recommends additional rehab. consider inpatient vs home with home health case management following referrals sent for inpatient rehab and are pending discussed with Dr Navarro Subjective Subjective Patient reports: no new complaints, tolerating liquids well, tolerating a regular diet and afebrile Interval history since last seen: still awaiting rehab bed. Exam Const General: frail appearing (older than stated age) and ill appearing acutely and chronically Nutritional Appearance: cachectic Orientation: alert, awake and oriented x3 [facility] Head: normal to inspection, normocephalic and atraumatic Resp Auscultation: diminished lung sounds, no rhonchi and no wheezes Cardio Rate: regular rate Rhythm: regular rhythm Skin General skin exam: dry skin (ashen) Neuro General: patient alert, patient awake, patient oriented x3, tone normal and no focal motor deficits Extrem General: normal to inspection, full ROM and no pedal edema Objective Last Vital Signs Temp 36.2 C L 01/30/23 10:58 Pulse 85 01/30/23 10:58 Resp 14 01/30/23 10:58 BP 120/79 01/30/23 10:58 Pulse Ox 99 01/30/23 10:58 Laboratory Results - last 24 hr 01/29/23 15:17 Stl C.difficile Tox PCR Negative Time Spent with Patient Time Spent with Patient: 25-34 minutes Time was spent: preparing to see the patient(eg.review tests), ordering medications,tests, procedures and counseling the patient
[2023-01-30 15:18] LABS: HCT 39.6 % (40.0-50.0); HGB 12.8 g/dL (13.5-17.5); MCHC 32.3 % (32.0-36.0); MCV 93 fL (80-95); MPV 9.4 fL (8.0-11.0); Platelet Count 197 10^3/uL (130-400); RBC 4.26 10^6/uL (4.36-5.78); RDW 15.7 % (11.8-14.1); RDW-SD 53.2 fL; WBC 12.37 10^3/uL (4.4-10.8)
[2023-01-30] MEDS: Acetaminophen 325 MG TAB PO (19:23)
[2023-01-30] MEDS: Senna TAB 1 TAB PO (22:18)
[2023-01-30] MEDS: Tamsulosin 0.4 MG CAPCR PO (22:18)
[2023-01-30] MEDS: Atorvastatin 10 MG TAB PO (22:19)
[2023-01-30] MEDS: Mirtazapine 15 MG TAB 7.5 MG PO (22:19)
[2023-01-31 06:00] VITALS: BP 105/70; PULSE 82; RESP 16; TEMP 36; O2SAT 97
[2023-01-31] MEDS: Heparin 5,000 UNITS/ML VIAL 5000 UNITS SC (06:32)
[2023-01-31] MEDS: Metoprolol 12.5 MG TAB PO ×2 (06:32→13:28)
[2023-01-31 08:37] VITALS: BP 145/81; PULSE 84; RESP 16; TEMP 35.9; O2SAT 94
[2023-01-31] MEDS: Multivitamin w/Minerals TAB 1 TAB PO (09:37)
[2023-01-31] MEDS: Pantoprazole 40 MG TABCR PO (09:37)
[2023-01-31] MEDS: Gabapentin 300 MG CAP PO ×2 (09:37→13:28)
[2023-01-31] MEDS: Cefpodoxime 200 MG TAB PO (09:37)
[2023-01-31] MEDS: Doxycycline Hyclate 100 MG CAP PO (09:37)
[2023-01-31] MEDS: Aspirin 81 MG CHEW 162 MG PO (09:37)
[2023-01-31] MEDS: Ferrous Gluconate 324 MG TAB PO (09:37)
[2023-01-31] MEDS: Ascorbic Acid 500 MG TAB PO (09:38)
[2023-01-31] MEDS: Cholecalciferol (Vitamin D3) 1,000 UNIT TAB 2000 UNITS PO (09:38)
--- NOTE | 2023-01-31 11:38 | W.PM.DS.N ---
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 (3) Hypertension: Status: Chronic (4) CAD (coronary artery disease): Status: Chronic (5) Afib: (6) Borderline hyperglycemia: Status: Acute Discharge Plan Disposition Patient Disposition: Snf Facility(SNF) Condition: Stable Discharge Details Reason For Visit: Pneumonia with Hypoxemia Admit Date/Time: 01/25/23 22:55 Admit Provider: Emile Espinal Attending Provider: Emile Espinal Primary Care Provider: Silvina Perdue [facility] Course Hospital Course: This is a 72-year-old male patient with past medical history of COPD lung mass right-sided heart failure combined pulmonary fibrosis and emphysema who presented to the emergency department with upper respiratory symptoms. Work-up in the emergency department was concerning for pneumonia. He did have oxygen requirements was admitted to the medical surgical unit under hospitalist services on treatment for community-acquired pneumonia and steroids for COPD exacerbation. He slowly responded to the above treatment and was weaned off his oxygen. He was also noted to have some bradycardia so his digoxin was discontinued on admission and his metoprolol was continued but at a divided dose. It was increased to every 6 hours to maintain a normal rate. Hemodynamically he remained stable he was eating and drinking well and oxygenating well on room air. He began working with physical therapy and recommendations were for inpatient rehabilitation prior to returning home. Referrals have been sent and he is being discharged to [facility] rehab for ongoing physical therapy. He has completed his steroids and will continue 2 more days of cefpodoxime to complete a 7-day course. He should follow-up outpatient with pulmonology referral has been sent. He is being transported by wheelchair van to the rehabilitation facility. Discharge discussed with Home Meds and New Rx's Prescriptions: New cefpodoxime 200 mg Tablet 200 mg PO Q12H Qty: 4 0RF Continued Boost Breeze Nutritional 0.04-1.05 gram-kcal/mL liquid 50 ml PO BID guaifenesin [Robafen] 100 mg/5 mL liquid 200 mg PO Q4H PRN aspirin 81 mg capsule 162 mg PO DAILY polyethylene glycol 3350 17 gram powder in packet 17 g PO DAILY sennosides [Senokot] 8.6 mg tablet 17.2 mg PO HS albuterol sulfate 90 mcg/actuation HFA aerosol inhaler 2 puff inhalation Q4H PRN loperamide 2 mg capsule 4 mg PO .COMPLEX PRN Rx Instructions: 4 mg orally after first loose stool, then 1 capsule after subsequent loose stools. Maximum daily dose is 16mg PRN; gabapentin 300 mg capsule 300 mg PO TID Patient Comments: Take 1 capsule by mouth three times a day ascorbic acid (vitamin C) [Vitamin C] 500 mg tablet 500 mg PO 1XD Patient Comments: Take 1 tablet by mouth every other day take with iron pantoprazole 40 mg tablet,delayed release (DR/EC) 40 mg PO 1XD Patient Comments: Take 1 tablet by mouth once a day One Daily Multi-Vit w-Mineral 4.5 mg iron tablet 1 tab PO DAILY cholecalciferol (vitamin D3) 50 mcg (2,000 unit) tablet 50 mcg PO DAILY tamsulosin 0.4 mg capsule 0.4 mg PO HS Stiolto Respimat 2.5-2.5 mcg/actuation mist 2 puff INHALATION DAILY atorvastatin 10 mg tablet 10 mg PO HS acetaminophen 500 mg Tablet 1,000 mg PO TID Qty: 0 0RF ferrous gluconate 324 mg (38 mg iron) Tablet 324 mg PO BID@1000,2200 Qty: 0 0RF mirtazapine 7.5 mg tablet 7.5 mg PO HS Qty: 0 0RF Patient Comments: Take 1 tablet by mouth at bedtime Changed metoprolol succinate 25 mg Tablet Extended Release 24 Hr 25 mg PO BID Qty: 0 0RF Rx Instructions: hold for SBP<100 or HR<60 Discontinued digoxin [Digox] 125 mcg (0.125 mg) tablet 125 mcg PO DAILY azithromycin 250 mg tablet 250 mg PO DAILY 4 Days Qty: 4 0RF Rx Instructions: start on day 2 of therapy amoxicillin-pot clavulanate 875-125 mg tablet 1 tab PO BID 7 Days Qty: 14 0RF Discharge Instructions Instructions: Pneumonia (DC) Stand Alone Forms: Nursing Discharge Form Referrals: Majo Ayala MD [ [facility] STAFF PHYSICIAN] - 02/03/23 3:30 pm Activity:: Activity as Tolerated Equipment/Supplies:: No Equipment Needed Diet:: As Tolerated Discharge Orders Discharge Orders: Discharge Order (Routine); Ordered 01/31/23 Ordered By: Kassandra Esparza DS: Summary Time Spent with Patient providing and/or coordinating discharge services: Greater than 30 minutes Status at Discharge Functional status at discharge: independent ambulation Overall status at discharge: patient is progressing back to baseline Mental Status: mental status grossly normal Speech and Movement: speech and movement normal Mood: congruent mood Affect: normal affect Exam Const General: frail appearing (older than stated age) and ill appearing acutely and chronically Nutritional Appearance: cachectic Orientation: alert, awake and oriented x3 HENMT Head: normal to inspection, normocephalic and atraumatic Resp Auscultation: diminished lung sounds, no rhonchi and no wheezes Cardio Rate: regular rate Rhythm: regular rhythm Skin General skin exam: dry skin (ashen) Neuro General: patient alert, patient awake, patient oriented x3, tone normal and no focal motor deficits Extrem General: normal to inspection, full ROM and no pedal edema Psych Mental Status: mental status grossly normal Speech and Movement: speech and movement normal Mood: congruent mood Affect: normal affect DS: Data Vitals/I&O Vitals and I&O: Vital Signs Temperature 35.9 C L 01/31/23 08:37 Temperature Source Tympanic 01/31/23 08:37 Pulse 84 01/31/23 08:37 Pulse Rhythm Irregular 01/31/23 04:10 Respiratory Rate 16 01/31/23 08:37 Respiratory Effort Normal, Non-Labored 01/31/23 04:10 Respiratory Depth Normal 01/31/23 04:10 Respiratory Pattern Normal 01/31/23 04:10 Blood Pressure 145/81 H 01/31/23 08:37 Blood Pressure Position Sitting 01/25/23 21:08 Pulse Oximetry 94 01/31/23 08:37 Oxygen Delivery Method Room Air 01/31/23 08:37 Oxygen Flow Rate 0 01/31/23 08:37 Pain Level 7 01/30/23 19:33 Comment BP called over radio 01/31/23 08:37 Intake & Output 01/30/23 01/30/23 01/31/23 11:59 23:59 11:59 Intake Total 240 / 240 Output Total 400 / 1000 600 / 1000 600 / 600 Balance -160 / -760 -600 / -760 -600 / -600 Weight 52.4 kg 51.9 kg Intake: Oral 240 / 240 Output: Urine 400 / 1000 600 / 1000 600 / 600 Other: Urine Color Yellow Yellow Yellow Urine Appearance Clear Cloudy Clear Urine Odor None Normal Normal Voiding Methods Urinal Urinal Urinal Data Completed and Pending Labs on day of discharge: Labs from last 24 hours 01/30/23 14:57 WBC 12.37 H RBC 4.26 L Hgb 12.8 L Hct 39.6 L MCV 93 MCH 30.0 MCHC 32.3 RDW 15.7 H Plt Count 197 MPV 9.4 PFSH All Active Problems (Updated 01/27/23 @ 14:44 by Savi Montez MD) Recurrent pneumonia (Acute) DVT prophylaxis (Acute) Discharge planning issues (Acute) Pneumonia (Acute) Hypoxemia (Acute) Borderline hyperglycemia (Acute) Pneumonia (Acute) Recurrent aspiration pneumonia (Acute) COPD exacerbation (Acute) Pneumonia (Acute) COPD exacerbation (Acute) Shortness of breath (Acute) Lung mass (Acute) Elevated troponin (Acute) Hypotension (Acute) DNR (do not resuscitate) (Acute) DNR, but would like trial of intubation. See 09/26 Note Acute bronchitis (Acute) Left foot pain (Acute) Palliative care patient (Acute) Underweight (Acute) Diastolic heart failure (Chronic) Closed intertrochanteric fracture of left femur (Acute) s/p IMN fixation (08/28/22) Fall (Acute) Blunt head trauma (Acute) Contusion of elbow, left (Acute) Contusion of left leg (Acute) Closed fracture of left hip (Acute) Mild cognitive impairment (Acute) Advanced care planning/counseling discussion (Acute) Literacy level of illiterate (Acute) Palliative care encounter (Acute) Acute on chronic right-sided congestive heart failure (Chronic) Pneumonia (Acute) Depression (Chronic) Dental abscess (Acute) 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) Abnormal chest CT (Acute) Full code status (Acute) Urinary retention (Chronic) 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) CAP (community acquired pneumonia) (Acute) Generalized weakness (Acute) Skin tear of left elbow without complication (Acute) Chronic obstructive lung disease (Chronic) Tricuspid regurgitation (Chronic) CAD (coronary artery disease) (Chronic) Hypertension (Chronic) Medical History Abdominal pain Abnormal radiologic findings on diagnostic imaging of renal pelvis, ureter, or bladder Acute on chronic anemia Acute on chronic diastolic (congestive) heart failure Acute on chronic systolic CHF (congestive heart failure) [place] [facility] Cancer...EGD 04/2021 with friable mucosa. SDOne at that time because of GI blooed Afib Alcohol abuse Alcohol abuse, continuous drinking behavior Anemia Aspiration pneumonia Bilateral lower extremity edema CAD (coronary artery disease) of artery bypass graft Cerumen impaction CHF, acute on chronic Closed intertrochanteric fracture Confusion state COVID-19 COVID-19 Diabetes mellitus Difficulty reading Edema Encounter for colorectal cancer screening Epididymitis, right (08/02/16) Essential hypertension Failure to thrive Fall GERD (gastroesophageal reflux disease) GI bleed GI bleeding H/O malignant neoplasm of stomach Heart failure, left, with LVEF 41-49% History of fracture of left hip S/P IM NAIL DOS: 08/28/22 History of GI bleed Hoarseness Hydrocele, right (01/23/16) Hyperlipidemia Hypophosphatemia Kyphoscoliosis Low back pain Malnutrition Mild bibasilar atelectasis Pancreatitis Poor hygiene Prediabetes Protein malnutrition Pulmonary hypertension Recent weight loss Rib fractures Shortness of breath Solitary pulmonary nodule Tinnitus, left Tobacco abuse Weight loss Surgical History cardiac cath Coronary Artery Bypass Gaft (CABG) EGD - IV Sedation Esophagectomy H/O colonoscopy (2007) H/O colonoscopy (04/14/18) dr geller, sigmoid diverticulosis, repeat 10 years History of esophagogastroduodenoscopy (EGD) (09/2017) History of hydrocelectomy History of right inguinal hernia repair repair times two sugrical flap of unhealing wound Family History Mother No problems noted. Father No problems noted. Social History Smoking/Tobacco Use Status: Former Tobacco Use Smoking risk assessment performed?: Yes Alcohol Intake: former Drug use: Never Substance use type: does not use Housing: house Current gender identity: male What type of physical activity do you participate in: none Do you feel safe at home: Yes Do you feel safe in your relationship?: Yes Time Spent with Patient Time Spent with Patient: 45-69 minutes Time was spent: preparing to see the patient(eg.review tests), ordering medications,tests, procedures, referring, communicating with other health child care group leader, indepentently interpreting results and care coordination
[2023-01-31 12:39] VITALS: BP 125/73; PULSE 98; RESP 24; O2SAT 94
[2023-01-31] MEDS: Tiotropium/Olodaterol 10 PUFF INHALER 2 PUFF IH (12:41)
[2023-01-31 12:44] VITALS: O2SAT 93
[2023-01-31] MEDS: Albuterol 2.5 MG/3 ML INH SOLN VIAL UPD (12:49)
[2023-01-31 12:56] VITALS: PULSE 87; RESP 22; RESP 7; RESP 8; O2SAT 97
--- NOTE | 2023-01-31 14:03 | CMDISCH_ITS ---
Date of service: 01/31/23 Time of Service: 14:03 LACE Index Scoring Tool Questions: Length of Stay (in days): 4 - 6 Was the patient admitted via the E.D.?: Yes Comorbidities: Chronic Pulmonary Disease and Any Tumor E.D. Visits: 10 Answers: Total Score: 16 Risk of Readmission: High Risk Care Management Discharge Plan Reason for Hospitalization: Pneumonia with Hypoxia Discharge Plan: Ilia will discharge to [facility] for short term rehab prior to returning home, per Gail of admissions, Ilia has 75 days left of his SNF benefit. Ilia will transport via [employer] W[facility] van, coordinated by [facility]. Patient/Family Education Needs: Review discharge instructions, discuss Ask Me Three. Services Needed at Discharge: Prison Facility ([facility] ) and Transportation ([employer] [facility])
--- NOTE | 2023-02-02 07:59 | PT.INDS ---
PT Notes Visit Reasons: Pneumonia with Hypoxemia Inpatient Physical Therapy Discharge Summary Treatment Dates: 01/28/2023 - 01/30/23 Referring Doctor:?Kassandra Esparza,? MANAGER RADIO PT Orders: PT CONSULT: Eval/Treat Precautions: Fall. Standard.? Activity as tolerated. Patient Profile/Admitting Diagnosis:?? Patient is a 72-year-old male with complex medical history who presented to the ED on 01/06/2023 due to shortness of breath and generalized weakness.? Patient was [facility] to [facility] for management of pneumonia, combined pulomonary fibrosis and emphysema, HTN, CAD, atrial fibrillation and borderline hyperglycemia. Patient participated in 1 session of PT intervention over the course of 3 days, with refusal of services following initial evaluation. He was able to discharge to SNF on 01/30/23 for further rehabilitation to achieve mobility goals. This document serves as a summary of care. No PT services were provided on this date. Social History/Home Situation:? Lives in an apartment.? Friend Lyudmila who lives in the apartment across from him helps out with?grocery shopping.? Able to heat up meals on wheels.? States that he walks with FWW indoors.? Has 5 steps to enter the apartment building with a rail on one side. Equipment Owned/DME: FWW x 2 Subjective:? none obtained Objective:? ROM: Right Upper Extremity: ? Shoulder Flexion WFL. Shoulder abduction WFL. Elbow flexion WFL. Wrist flexion WFL. Functional opening and closing of hand WFL. Left Upper Extremity:? Shoulder Flexion WFL. Shoulder abduction WFL. Elbow flexion WFL. Wrist flexion WFL. Functional opening and closing of hand WFL. Right Lower Extremity: Hip flexion WFL. Hip abduction WFL. Knee flexion WFL. Ankle dorsiflexion WFL. Ankle plantarflexion WFL. Left Lower Extremity: Hip flexion WFL. Hip abduction WFL. Knee flexion WFL. Ankle dorsiflexion WFL. Ankle plantarflexion WFL. Strength: Right Upper Extremity: Shoulder flexors 3/5. Shoulder abductors 3/5. Elbow flexors 4/5. Elbow extensors 4/5. Cardiac Surgeon strong. Left Upper Extremity: Shoulder flexors 3/5. Shoulder abductors 3/5. Elbow flexors 4/5. Elbow extensors 4/5. Cardiac Surgeon strong. Right Lower Extremity: Hip flexors 4-/5.? Hip flexors left 4-/5. Hip abductors 4-/5. Knee flexors 4-/5. Knee extensors 4-/5. Ankle dorsiflexors 4-/5. Ankle plantarflexors 4/5. Left Lower Extremity: Hip flexors 4-/5.? Hip flexors left 4-/5. Hip abductors 4-/5. Knee flexors 4-/5. Knee extensors 4-/5. Ankle dorsiflexors 4-/5. Ankle plantarflexors 4/5. Bed Mobility/Transfers: Supine to sit: minimal assist Sit-stand: minimal assist with FWW, cues provided for hand placement and movement sequence Stand-sit: minimal assist with FWW, cues provided for hand placement and movement sequence Gait:? 40 feet + 40 feet with minimal assist,? using FWW with wheelchair follow.? Glenys slowed.? VS WNL right after short distance ambulation. Did report fatigue and rested for about 5 minutes on wheelchair prior to walking back to room. Thoracic kyphosis. Balance:? Static Sitting: Normal Dynamic Sitting: Good Static Standing: Fair Dynamic Standing: Fair Special Tests: Mobility Limitations Standardized Measure [facility] 6 clicks Basic Mobility Inpatient Short Form: Raw Score: 18? CMS Score: 47% deficit 4-Stage Balance test: Unable to maintain all 4 positions for 10 seconds indincating a high fall risk. Assessment:?? Patient presented with functional mobility decline, generalized weakness, and dependence in ADLs requiring short-term rehab placement prior to D/C to home. He participated in 1 session of PT intervention over the course of 3 days, with refusal of services following initial evaluation. He was able to discharge to SNF on 01/30/23 for further rehabilitation to achieve mobility goals. Goals: (GOALS NOT MET DUE TO INABILITY TO PARTICIPATE IN FURTHER PT DURING ACUTE CARE STAY) Goals X1 week 1. Supine-Sit independent 2. Sit-Supine independent 3. Sit-Stand independent with FWW 4. Stand-Sit independent with FWW 5. Bed-Chair independent with FWW 6. Chair-Bed independent with FWW 7. Independent gait on level surface with use of FWW for at least 200 feet without report of pain nor dyspnea 8. Independent stair negotiation while holding onto bilateral rails for at least 5 steps without report of pain nor dyspnea 9. Independent with home exercise program 10. Good static and dynamic standing balance/tolerance Plan of Care/Treatment Plan: D/C from PT in acute care setting DISCHARGE RECOMMENDATIONS: Patient requires shelter facility placement for continued skilled physical therapy services in order to progress mobility level, strength, and balance in preparation for a safe discharge to home. TREATMENT CODE/TIME: none Thank you for the opportunity to participate in the care of this patient. Iram Mcgee PT, DPT [facility] [place], [place]
== END 2023-01-31 14:26 | disposition skilled nursing facility (03) | DRG 190 ==
LOC: ER 01-26 00:02 → MS 01-26 00:06
PROVIDERS: Nurse Practitioner Acute Care; Admitting Provider Family Medicine; Emergency Provider Student in an Organized Health Care Education/Training Program; PCP Family Medicine; Visit Provider Family Medicine
DX: J44.0 Chronic obstructive pulmonary disease with (acute) lower respiratory infection (principal); J18.9 Pneumonia, unspecified organism; I50.32 Chronic diastolic (congestive) heart failure; Z68.1 Body mass index [BMI] 19.9 or less, adult; J44.1 Chronic obstructive pulmonary disease with (acute) exacerbation; R09.02 Hypoxemia; I11.0 Hypertensive heart disease with heart failure; J84.10 Pulmonary fibrosis, unspecified; I25.10 Atherosclerotic heart disease of native coronary artery without angina pectoris; I48.91 Unspecified atrial fibrillation; Z66 Do not resuscitate; F10.21 Alcohol dependence, in remission; R91.1 Solitary pulmonary nodule; R74.8 Abnormal levels of other serum enzymes; I95.9 Hypotension, unspecified; R63.6 Underweight; G31.84 Mild cognitive impairment of uncertain or unknown etiology; I07.1 Rheumatic tricuspid insufficiency; R53.1 Weakness; F32.A Depression, unspecified; R33.9 Retention of urine, unspecified; Z55.0 Illiteracy and low-level literacy; R73.9 Hyperglycemia, unspecified
CPT/HCPCS: 36415; 80048; 80053; 85027; 87493; 87637; 93005; 94640; 96365; 97162; 99285; 83036; 83735; 84484; 85025; 93010; 94664; 94667; 94668; 94760; 99223; 99233; 99239; 99284; J0696; J1644; J3490; J7613; J7620

== ENCOUNTER 2023-02-11 14:07 | Outpatient (REF) | payer MEDICARE, MEDICAID, SELFPAY | END 2023-02-11 14:08 | disposition home or self-care (01) | LOC: LBN 14:07 | PROVIDERS: PCP Family Medicine; Visit Provider Physician Assistant | DX: M62.81 Muscle weakness (generalized) (principal); R62.7 Adult failure to thrive | CPT/HCPCS: 83519 ==

== ENCOUNTER 2023-03-23 21:27 | Inpatient (IN) | payer MEDICARE, MEDICAID, SELFPAY ==
[2023-03-23] VITALS (25 sets, daily range): BP systolic 145–161; BP diastolic 86–117; PULSE 89–115; RESP 10–51; TEMP 36.4; O2SAT 92
--- NOTE | 2023-03-23 21:30 | RT.EKG_ITS ---
APPROVED REPORT Exam: Resting ECG Reason for Exam: SOB Patient Location: E HR:105 bpm ECG Measurements Heart Rate 105 AXIS MO [id number] P [id number] QRSd 85 QRS 93 QT 348 T -71 QTc 461 Conclusion Atrial fibrillation...V-rate 89-124, irreg A-activity Right axis deviation...QRS axis ( 91,269) Consider left ventricular hypertrophy...(R aVL+S V3) >2.80mV Nonspecific T abnormalities, inferior leads...T <-0.10mV, II III aVF PHysician: no stemi, lateral depressions, afib vs flutter component
--- NOTE | 2023-03-23 22:00 | DI.CT_ITS ---
Exam(s) CT CHEST W EXAM: CT CHEST W CLINICAL HISTORY: eval for infiltrate vs mass TECHNIQUE: Imaging Protocol: Axial computed tomography images with coronal and sagittal reformatted images were created and reviewed CONTRAST MATERIAL: Intravenous: Omnipaque 350Contrast volume:70 mL. COMPARISON: CT CT CHEST PE CTA from 11/16/2022 CR XR CHEST 2V PA LATERAL from 01/25/2023 FINDINGS: The examination is limited due to patient motion artifact. Tracheobronchial tree: Patent where visualized. Pulmonary parenchyma: Marked centrilobular emphysematous changes are present. There is again seen a 0.9 cm area spiculation in the anterior aspect of the right upper lobe. There are bilateral basilar areas of consolidation. These have shown improvement compared to the prior examination. There appea rs to been near complete resolution of the pleural effusions. Mediastinum and Mikki: No dominant adenopathy or fluid collection. The esophagus is unremarkable. The patient appears to be status post resection of the distal esophagus and gastric pull-through. Thyroid gland: There is a multinodular thyroid gland. The largest nodule measures 9 mm. No follow-u p is recommended. Pleura: No pneumothorax. Heart: There is cardiomegaly particularly involving the right atrium. Three vessel coronary artery c alcification and/or stents is present. No pericardial effusion. Aorta: Thoracic aorta non-dilated. Atherosclerosis is present. No evidence of dissection. Pulmonary arteries: Due to motion artifacts segmental and subsegmental pulmonary artery evaluation is suboptimal. No large central pulmonary embolus is seen. Upper abdomen: Heavy calcification is again seen in the pancreatic head. Lymph nodes: Within normal limits. Bones: Sternal wires are in place. There again seen old nonunited left rib fractures. Age-appropria te degenerative changes are seen in the spine. Soft tissues: Unremarkable. IMPRESSION: 1. Bilateral basilar infiltrates suspicious for pneumonia or aspiration. 2. Postsurgical changes of a distal esophagectomy with gastric pull-through. 3. Stable 9 mm area spiculation in the right upper lobe. RADIATION DOSE DELIVERED: Total DLP DATA REPOSITORY: All CT scans at this facility are submitted to the National Radiology Data Registry (NRDR) Dose Index Registry (DIR) with the [employer] (ACR). RADIATION OPTIMIZATION: All CT scans at this facility use at least one of these dose optimization te chniques: automated exposure control; mA and/or kV adjustment per patient size (includes targeted exa ms where dose is matched to clinical indication); or iterative reconstruction.
[2023-03-23] MEDS: Metoprolol 25 MG TAB PO (22:17)
--- NOTE | 2023-03-23 22:18 | ED.GENADUL_ITS ---
Discharge Plan Disposition Patient Disposition: Admit to [facility] Condition: Improving Discharge Details Chief Complaint: Chest Pain Clinical Impression: Hypoxemia, Aspiration pneumonia Primary Care Provider: Silvina Perdue ED Provider: Juarez Saleem Home Meds and New Rx's Prescriptions: No Action Boost Breeze Nutritional 0.04-1.05 gram-kcal/mL liquid 50 ml PO BID guaifenesin [Robafen] 100 mg/5 mL liquid 200 mg PO Q4H PRN aspirin 81 mg capsule 162 mg PO DAILY polyethylene glycol 3350 17 gram powder in packet 17 g PO DAILY sennosides [Senokot] 8.6 mg tablet 17.2 mg PO HS albuterol sulfate 90 mcg/actuation HFA aerosol inhaler 2 puff inhalation Q4H PRN loperamide 2 mg capsule 4 mg PO .COMPLEX PRN Rx Instructions: 4 mg orally after first loose stool, then 1 capsule after subsequent loose stools. Maximum daily dose is 16mg PRN; gabapentin 300 mg capsule 300 mg PO TID Patient Comments: Take 1 capsule by mouth three times a day ascorbic acid (vitamin C) [Vitamin C] 500 mg tablet 500 mg PO 1XD Patient Comments: Take 1 tablet by mouth every other day take with iron pantoprazole 40 mg tablet,delayed release (DR/EC) 40 mg PO 1XD Patient Comments: Take 1 tablet by mouth once a day One Daily Multi-Vit w-Mineral 4.5 mg iron tablet 1 tab PO DAILY cholecalciferol (vitamin D3) 50 mcg (2,000 unit) tablet 50 mcg PO DAILY tamsulosin 0.4 mg capsule 0.4 mg PO HS Stiolto Respimat 2.5-2.5 mcg/actuation mist 2 puff INHALATION DAILY atorvastatin 10 mg tablet 10 mg PO HS acetaminophen 500 mg Tablet 1,000 mg PO TID Qty: 0 0RF ferrous gluconate 324 mg (38 mg iron) Tablet 324 mg PO BID@1000,2200 Qty: 0 0RF mirtazapine 7.5 mg tablet 7.5 mg PO HS Qty: 0 0RF Patient Comments: Take 1 tablet by mouth at bedtime metoprolol succinate 25 mg Tablet Extended Release 24 Hr 25 mg PO BID Qty: 0 0RF Rx Instructions: hold for SBP<100 or HR<60 Medical Decision Making Immediately upon the arrival of my shift I came and assessed the patient. Patient had been here in the emergency department 30 minutes prior to my arrival. This is a 72-year-old male who is a palliative care patient, whose CODE STATUS is DNR/DNI, with a past medical history of pulmonary fibrosis and emphysema, atrial fibrillation, coronary artery disease with CABG, congestive heart failure, chronic weight loss, previous alcohol abuse in remission, multiple admissions over the last 1 to 2 years, who is not on baseline oxygen, presents today via EMS for elevated heart rate. Patient is quite verbally ornery today. He is not willing to talk about what is going on, what brought him in here, or what his complaints are. If he is touched in any place he yells out that it hurts and bats us away. EMS was called, and report from them was notably limited. Vital signs were not given to nursing during report however nursing was told that the patient's heart rate was elevated and he was given 10 mg of diltiazem. Patient currently resides at home. Patient is actively coughing during assessment, but when asked he denies any coughs and does not want to talk about it anymore. He does have a known chronic pneumonia versus chest lesion. No other historical components, no other history provided by EMS, no other history provided by patient. Physical exam demonstrates a somewhat unpleasant demeanor. Patient does not want to talk about his symptoms or why he is here. When touched anywhere he states ouch and bats us away quite quickly. Heart rate is 101. Blood pressure stable. Currently on 5 L of oxygen saturating in the mid 90s. Lungs are rhonchorous, he is actively coughing. No evidence of focal trauma. No massive pitting edema. No signs of significant acute bruising. Surprisingly abdomen is relatively nontender. Patient certainly is somewhat cachectic appearing but this is his baseline. He does have a notable increased oxygen de susie at this time. Heart rate appears stable, uncertain as to what the original heart rate was when he was given his diltiazem secondary to limited EMS report to nursing staff LYNN. We will give his metoprolol home dose. I suspect he has not had his evening medications. He is not willing to talk about this with us at this time. Suspect worsening acute or chronic pneumonia, CHF is on the differential. COVID and flu is also of concern. ACS unlikely. Heart rate remains relatively benign at this time, and EKG shows no evidence of STEMI. There is some lateral depressions, with A-fib/a flutter. We will monitor closely and evaluate for potential need for admission. Last admission was about a month and a half ago. 11:52 PM Lactate elevated, mild white count. Mild left shift. Electrolytes stable, renal function stable. proBNP a bit lower than it has been. Troponin normal. COVID flu and RSV are negative. CT scan shows patchy infiltrates in the lower lung zones, more prominent on the left, comparison from prior CT scans demonstrates that perhaps this is quite different than the past and not indicative of mass or cancer. That being said there is some distal parent alterations for the patient's esophagus. He did have a history of esophageal cancer with subsequent surgery, and the distal esophageal sphincter is removed per imaging review. Certainly does increase the likelihood of aspiration events, and I do wonder if this is the recurrent cause of the patient's persistent recurrent pneumonias. We will treat with Unasyn rather than doxycycline at this time. Perhaps greater management of reflux may be a component of the solution for the patient moving forward. Patient still has increased oxygen demands and would benefit from admission. We will contact the hospitalist for admission. Discussed the case with Dr. Goldman. He agrees with the assessment and plan. I have extensively reviewed the treatment plan with the patient. I have addressed all patient concerns at this time. I have also discussed the plan with the admitting physician and they agree with the current assessment and plan and have agreed to assume responsibility for the patient. All parties demonstrate verbal understanding and agreement with our assessment and plan at this time. The documentation in this chart was dictated using [employer] dictation software. Please excuse any dictation errors. FINDINGS: Limitations: Motion artifact, severe through the lower chest and upper abdomen. Thyroid: Normal-sized thyroid gland. Lungs: Diffuse emphysema, severe throughout the mid-upper lung zones. Patchy alveolar opacities in the lower lung zones, more prominent on the left. Pleural spaces: No pleural effusion or pneumothorax. Heart: Cardiomegaly with prominent dilatation of the right atrium and reflux of contrast into the inferior vena cava and hepatic veins suggesting right heart failure. Enlarged left atrium suggesting mitral valve dysfunction. Artifact along the coronary arteries suggesting coronary artery calcification and/or coronary artery stents. Prior median sternotomy for CABG. Mediastinal space: Suggestion of a prior distal esophagectomy with gastric pull- through with a portion of the stomach located in the mediastinum along the left margin of the descending thoracic aorta. Correlation with surgical history recommended. Lymph nodes: Scattered mildly prominent mediastinal lymph nodes, nonspecific. Vasculature: No thoracic aortic aneurysm or dissection. No large central pulmonary embolism identified. The smaller distal pulmonary arteries are obscured by breathing mot ion and poorly evaluated for diagnosis or exclusion of smaller distal pulmonary emboli, particularly through the midlower lung zones. Pancreas: Clustered coarse calcifications in the expected location of the pancreatic head, largely obscured by motion and poorly evaluated. Spleen: Coarse linear calcification apparently extending along the posterior capsule the spleen, largely obscured by motion and poorly evaluated but also seen on the comparison exam. Adrenal glands: Bilateral adrenal enlargement redemonstrated but largely obscured by motion on today's exam. Bones/joints: Old fracture through the posterior aspect of the left 7th rib. Chronic nonunion of old fractures through the posterior aspect of the left 8th and 9th ribs, also seen on the comparison exam from July 20, 2022. Within the limits of visualization, no acute fracture seen. Subtle fractures could be obscured by motion. Soft tissues: Cachectic body morphology. IMPRESSION: 1. Patchy alveolar opacities in the lower lung zones, more prominent on the left. Pneumonia or aspiration is suspected. Clinical correlation is recommended. 2. Apparent prior distal esophagectomy with gastric pull-through. Correlation with surgical history recommended. 3. Additional findings, as above. Thank you for allowing us to participate in the care of your patient. Dictated and Authenticated by: Jacky Souza MD 03/23/2023 11:43 PM Eastern Time ([place] & [place]) HPI General Date/Time Provider Initiated Documentation: 03/23/23 21:31 . HPI Narrative: This is a 72-year-old male who is a palliative care patient, whose CODE STATUS is DNR/DNI, with a past medical history of pulmonary fibrosis and emphysema, atrial fibrillation, coronary artery disease with CABG, congestive heart failure, chronic weight loss, previous alcohol abuse in remission, multiple admissions over the last 1 to 2 years, who is not on baseline oxygen, presents today via EMS for elevated heart rate. Patient is quite verbally ornery today. He is not willing to talk about what is going on, what brought him in here, or what his complaints are. If he is touched in any place he yells out that it hurts and bats us away. EMS was called, and report from them was notably limited. Vital signs were not given to nursing during report however edgar august was told that the patient's heart rate was elevated and he was given 10 mg of diltiazem. Patient currently resides at home. Patient is actively coughing during assessment, but when asked he denies any coughs and does not want to talk about it anymore. He does have a known chronic pneumonia versus chest lesion. No other historical components, no other history provided by EMS, no other history provided by patient. Related Data Home Medications Medication Instructions Recorded Confirmed gabapentin 300 mg capsule 300 mg PO TID 07/19/22 02/24/23 atorvastatin 10 mg tablet 10 mg PO HS 08/28/22 02/24/23 cholecalciferol (vitamin D3) 50 50 mcg PO DAILY 08/28/22 02/24/23 mcg (2,000 unit) tablet multivitamin with minerals-ferrous 1 tab PO DAILY 08/28/22 02/24/23 sulfate 4.5 mg iron tablet (One Daily Multivitamins with Minerals) tamsulosin 0.4 mg capsule 0.4 mg PO HS 08/28/22 02/24/23 tiotropium 2.5 mcg-olodaterol 2.5 2 puff inhalation DAILY 08/28/22 02/24/23 mcg/actuation mist for inhalation (Stiolto Respimat) acetaminophen 500 mg tablet 1,000 mg (2 x 500 mg) PO TID #0 09/06/22 02/24/23 tabs ferrous gluconate 324 mg (38 mg 324 mg PO BID@1000,2200 #0 tabs 09/06/22 02/24/23 iron) tablet mirtazapine 7.5 mg tablet 7.5 mg PO HS #0 tabs 09/06/22 02/24/23 food supplemt, lactose-reduced 50 ml PO BID 09/22/22 02/24/23 0.04 gram-1.05 kcal/mL oral liquid (Boost Breeze Nutritional) guaifenesin 100 mg/5 mL oral 200 mg PO Q4H PRN 09/22/22 02/24/23 liquid (Robafen) albuterol sulfate 90 mcg/actuation 2 puff inhalation Q4H PRN 10/05/22 02/24/23 aerosol inhaler aspirin 81 mg capsule 162 mg PO DAILY 10/05/22 02/24/23 loperamide 2 mg capsule 4 mg PO .COMPLEX PRN 10/05/22 02/24/23 polyethylene glycol 3350 17 gram 17 g PO DAILY 10/05/22 02/24/23 oral powder packet sennosides 8.6 mg tablet (Senokot) 17.2 mg PO HS 10/05/22 02/24/23 ascorbic acid (vitamin C) 500 mg 500 mg PO 1XD 12/04/22 02/24/23 tablet (Vitamin C) pantoprazole 40 mg tablet,delayed 40 mg PO 1XD 12/04/22 02/24/23 release metoprolol succinate 25 mg 25 mg PO BID #0 tabs 01/31/23 02/24/23 tablet,extended release 24 hr Previous Rx's Medication Instructions Recorded acetaminophen 500 mg tablet 1,000 mg (2 x 500 mg) PO TID #0 09/06/22 tabs ferrous gluconate 324 mg (38 mg 324 mg PO BID@1000,2200 #0 tabs 09/06/22 iron) tablet mirtazapine 7.5 mg tablet 7.5 mg PO HS #0 tabs 09/06/22 metoprolol succinate 25 mg 25 mg PO BID #0 tabs 01/31/23 tablet,extended release 24 hr Allergies Allergy/AdvReac Type Severity Reaction Status Date / Time No Known Allergies Allergy Verified 01/25/23 21:14 General Stated Complaint: Chest Pain ANAMIKA: 2 Review of Systems All systems reviewed & are unremarkable except as noted in HPI and below PFSH All Active Problems (Updated 03/24/23 @ 00:26 by Juarez Saleem DO) Aspiration pneumonia (Acute) Hypoxemia (Acute) HTN (hypertension) (Chronic) 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) Acute respiratory failure with hypoxia (Acute) Sepsis (Acute) Recurrent pneumonia (Acute) Pneumonia (Acute) Hypoxemia (Acute) Borderline hyperglycemia (Acute) Recurrent aspiration pneumonia (Acute) COPD exacerbation (Acute) Pneumonia (Acute) COPD exacerbation (Acute) Shortness of breath (Acute) Lung mass (Acute) Elevated troponin (Acute) Hypotension (Acute) DNR (do not resuscitate) (Acute) DNR, but would like trial of intubation. See 09/26 Note Acute bronchitis (Acute) Left foot pain (Acute) Palliative care patient (Acute) Underweight (Acute) Diastolic heart failure (Chronic) Closed intertrochanteric fracture of left femur (Acute) s/p IMN fixation (08/28/22) Fall (Acute) Blunt head trauma (Acute) Contusion of elbow, left (Acute) Contusion of left leg (Acute) Closed fracture of left hip (Acute) Mild cognitive impairment (Acute) Advanced care planning/counseling discussion (Acute) Literacy level of illiterate (Acute) Palliative care encounter (Acute) Acute on chronic right-sided congestive heart failure (Chronic) Pneumonia (Acute) Depression (Chronic) Dental abscess (Acute) 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) Abnormal chest CT (Acute) Full code status (Acute) Urinary retention (Chronic) 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) CAP (community acquired pneumonia) (Acute) Generalized weakness (Acute) Skin tear of left elbow without complication (Acute) Chronic obstructive lung disease (Chronic) Tricuspid regurgitation (Chronic) CAD (coronary artery disease) (Chronic) Hypertension (Chronic) Medical History Abdominal pain Abnormal radiologic findings on diagnostic imaging of renal pelvis, ureter, or bladder Acute on chronic anemia Acute on chronic diastolic (congestive) heart failure Acute on chronic systolic CHF (congestive heart failure) [place] [facility] [place]...EGD 04/2021 with friable mucosa. SDOne at that time because of GI blooed Afib Alcohol abuse Alcohol abuse, continuous drinking behavior Anemia Aspiration pneumonia Bilateral lower extremity edema CAD (coronary artery disease) of artery bypass graft Cerumen impaction CHF, acute on chronic Closed intertrochanteric fracture Confusion state COVID-19 COVID-19 Diabetes mellitus Difficulty reading Edema Encounter for colorectal cancer screening Epididymitis, right (08/02/16) Essential hypertension Failure to thrive Fall GERD (gastroesophageal reflux disease) GI bleed GI bleeding H/O malignant neoplasm of stomach Heart failure, left, with LVEF 41-49% History of fracture of left hip S/P IM NAIL DOS: 08/28/22 History of GI bleed Hoarseness Hydrocele, right (01/23/16) Hyperlipidemia Hypophosphatemia Kyphoscoliosis Low back pain Malnutrition Mild bibasilar atelectasis Pancreatitis Poor hygiene Prediabetes Protein malnutrition Pulmonary hypertension Recent weight loss Rib fractures Shortness of breath Solitary pulmonary nodule Tinnitus, left Tobacco abuse Weight loss Surgical History cardiac cath Coronary Artery Bypass Ga (CABG) EGD - IV Sedation Esophagectomy H/O colonoscopy (2007) H/O colonoscopy (04/14/18) dr geller, sigmoid diverticulosis, repeat 10 years History of esophagogastroduodenoscopy (EGD) (09/2017) History of hydrocelectomy History of right inguinal hernia repair repair times two sugrical flap of unhealing wound Family History Mother No problems noted. Father No problems noted. Social History Smoking/Tobacco Use Status: Former Tobacco Use Smoking risk assessment performed?: Yes Alcohol Intake: former Drug use: Never Substance use type: does not use Housing: house Current gender identity: male What type of physical activity do you participate in: none Do you feel safe at home: Yes Do you feel safe in your relationship?: Yes Exam Narrative Exam Narrative: 1.Const: Well-nourished, Well-developed, appearing stated age 2.Eyes: PERRL, no conjunctival injection, and symmetrical lids. 3.ENT: Atraumatic external nose and ears. Somewhat dry MM. Neck: Symmetric, trachea midline, No thyromegaly. 4.CVS: +S1/S2, No murmurs or gallops. Peripheral pulses 2+ and equal in all extremities. Brisk capillary refill in all extremities. 5.RESP: Unlabored respiratory effort. Rhonchi throughout. Scattered crackles. Patient appears to have a component of pexed this excavated him. 6.GI: Soft, Nontender/Nondistended, No hepatosplenomegaly. No guarding or rebound. 7.MSK: Normocephalic/Atraumatic, Extremities w/o deformity or ttp No cyanosis or clubbing, Normal movement of all extremities. No pitting edema 8.Skin: Warm, Dry. No rashes or lesions. 9.Neuro: outpatient case manager II-XII grossly intact. Sensation grossly intact, no focal neurol ogic deficits. 10.Psych: (AAO) x3. Somewhat unpleasant and demeanor. Patient does not want to talk about his symptoms or why he is here. When touched anywhere he states ouch and bats us away quite quickly. Course Vital Signs Vital signs: Vital Signs Temperature 36.4 C L 03/23/23 21:27 Pulse 108 H 03/23/23 21:27 Respiratory Rate 16 03/23/23 21:27 Pulse Oximetry 92 03/23/23 21:27 Temperature 36.4 C L 03/23/23 21:27 Pulse 103 H 03/23/23 22:01 Pulse 109 H 03/23/23 22:10 Respiratory Rate 15 03/23/23 22:10 Respiratory Effort Normal 03/23/23 21:35 Respiratory Depth Normal 03/23/23 21:35 Respiratory Pattern Normal 03/23/23 21:35 Blood Pressure 152/93 H 03/23/23 22:01 Blood Pressure Mean 114 03/23/23 22:01 Blood Pressure Position Sitting 03/23/23 21:27 Pulse Oximetry 92 03/23/23 21:27 Oxygen Delivery Method Room Air 03/23/23 21:27 Oxygen Flow Rate 0 03/23/23 21:27
[2023-03-23 22:31] LABS: Abs Immature Grans 0.03 10^3/uL (0.0-0.06); Absolute Basophil Count 0.03 10^3/uL (0.0-0.2); Absolute Eosinophil Count 0.03 10^3/uL (0.0-0.7); Absolute Lymphocyte Count 1.18 10^3/uL (1.2-3.4); Absolute Monocyte Count 1.05 10^3/uL (0.1-0.8); Absolute Neutrophil Count 8.95 10^3/uL (1.2-6.7); Basophils % 0.3; Eosinophils % 0.3; HCT 55.1 % (40.0-50.0); HGB 17.4 g/dL (13.5-17.5); Immature Grans % 0.3; Lymphocytes % 10.5; MCH 30.3 pg (27.0-33.0); MCHC 31.6 % (32.0-36.0); MCV 96 fL (80-95); MPV 10.1 fL (8.0-11.0); Monocytes % 9.3; Neutrophils % 79.3; Platelet Count 292 10^3/uL (130-400); RBC 5.74 10^6/uL (4.36-5.78); RDW 14.7 % (11.8-14.1); RDW-SD 52.7 fL; WBC 11.28 10^3/uL (4.4-10.8)
[2023-03-23 22:38] LABS: INR 1.1 (0.9-1.1); PTT Activated 29.5 sec (23.6-32.8); Prothrombin Time 11.3 sec (9.1-11.1)
[2023-03-23 22:42] LABS: ALT 17 U/L (16-63); AST 26 U/L (15-37); Albumin 3.9 g/dL (3.4-5.0); Alkaline Phosphatase 146 U/L (46-116); Anion Gap 12.3 mmol/L (3-11); BUN 34 mg/dL (7-18); Bilirubin, Total 1.1 mg/dL (0.2-1.0); CO2 26.7 mmol/L (21.0-32.0); CREATININE 0.9 mg/dL (0.70-1.30); Chloride 105 mmol/L (98-107); Estimated GFR 90.74 (mL/min/1.73m2); Glucose 95 mg/dL (74-106); NT-proBNP 2968 pg/mL (<300); Potassium 4.2 mmol/L (3.5-5.1); Sodium 144 mmol/L (136-145); TSH (W/Ref FT4) 1.36 uIU/mL (0.36-3.74); Total Protein 9.8 g/dL (6.4-8.2); Troponin I < 50 ng/L (<or=60)
[2023-03-23 22:50] LABS: BE (Venous) -1 mmol/L (-2-3); HCO3 (Venous) 25 mmol/L (23-28); O2 Sat (Venous) 61 %; TCO2 (Venous) 22 mmol/L (24-29); pCO2 (Venous) 46 mmHg (41-51); pH (Venous) 7.34 (7.31-7.41); pO2 (Venous) 37 mmHg
[2023-03-23] MEDS: Normal Saline - Diluent 50 ML VIAL IJ (22:51)
[2023-03-23] MEDS: Omnipaque 350 MG/ML 100 ML BTL IJ (22:52)
[2023-03-23 22:53] LABS: Lactate 2.5 mmol/L (0.6-1.4)
[2023-03-23 22:59] LABS: COVID-19 PCR Negative (Negative); Influenza A PCR Negative (Negative); Influenza B PCR Negative (Negative); RSV PCR Negative (Negative)
[2023-03-23 23:03] LABS: Source Nasopharynx
--- NOTE | 2023-03-23 23:45 | DI.VRAD_ITS ---
Addendum created by Jacky Souza MD on 03/23/2023 11:55:35 PM EDT: This case was discussed personally with ELIZABETH DAVID at 11:52 PM EDT on 03/23/2023. By report, the patient has a history of recurrent infiltrates versus a mass in the lower lung zones. Additionally, the patient has a known history of substance abuse. By report, the patient is a poor historian. His surgical history is unknown. That said, he appears to be status post distal esophagectomy with gastric pull-through. Removal of the distal esophagus places the patient at significantly increased risk for aspiration. This combined with a history of substance abuse suggests recurrent aspiration as the likely cause of the patient's recurrent lower lung zone infiltrates. Initial report created on 03/23/2023 11:43:39 PM EDT: PROCEDURE INFORMATION: Exam: CT Chest With Contrast; Diagnostic Exam date and time: 03/23/2023 10:59 PM Age: 72 years old Clinical indication: Other: Eval for infiltrate vs mass TECHNIQUE: Imaging protocol: Diagnostic computed tomography of the chest with contrast. 3D rendering (Not supervised by radiologist): MIP and/or 3D reconstructed images were created by the technologist. Contrast material: 350 OMNI; Contrast volume: 70 ml; Contrast route: INTRAVENOUS (IV); COMPARISON: CT CHEST WO 07/20/2022 10:43 AM FINDINGS: Limitations: Motion artifact, severe through the lower chest and upper abdomen. Thyroid: Normal-sized thyroid gland. Lungs: Diffuse emphysema, severe throughout the mid-upper lung zones. Patchy alveolar opacities in the lower lung zones, more prominent on the left. Pleural spaces: No pleural effusion or pneumothorax. Heart: Cardiomegaly with prominent dilatation of the right atrium and reflux of contrast into the inferior vena cava and hepatic veins suggesting right heart failure. Enlarged left atrium suggesting mitral valve dysfunction. Artifact along the coronary arteries suggesting coronary artery calcification and/or coronary artery stents. Prior median sternotomy for CABG. Mediastinal space: Suggestion of a prior distal esophagectomy with gastric pull-through with a portion of the stomach located in the mediastinum along the left margin of the descending thoracic aorta. Correlation with surgical history recommended. Lymph nodes: Scattered mildly prominent mediastinal lymph nodes, nonspecific. Vasculature: No thoracic aortic aneurysm or dissection. No large central pulmonary embolism identified. The smaller distal pulmonary arteries are obscured by breathing motion and poorly evaluated for diagnosis or exclusion of smaller distal pulmonary emboli, particularly through the mid-lower lung zones. Pancreas: Clustered coarse calcifications in the expected location of the pancreatic head, largely obscured by motion and poorly evaluated. Spleen: Coarse linear calcification apparently extending along the posterior capsule the spleen, largely obscured by motion and poorly evaluated but also seen on the comparison exam. Adrenal glands: Bilateral adrenal enlargement redemonstrated but largely obscured by motion on today's exam. Bones/joints: Old fracture through the posterior aspect of the left 7th rib. Chronic nonunion of old fractures through the posterior aspect of the left 8th and 9th ribs, also seen on the comparison exam from July 20, 2022. Within the limits of visualization, no acute fracture seen. Subtle fractures could be obscured by motion. Soft tissues: Cachectic body morphology. IMPRESSION: 1. Patchy alveolar opacities in the lower lung zones, more prominent on the left. Pneumonia or aspiration is suspected. Clinical correlation is recommended. 2. Apparent prior distal esophagectomy with gastric pull-through. Correlation with surgical history recommended. 3. Additional findings, as above. Dictated and Authenticated by: Jacky Souza MD. Ordering:COURTNEY Pizarro MD
[2023-03-24] VITALS (24 sets, daily range): BP systolic 82–185; BP diastolic 48–134; PULSE 68–161; RESP 16–30; TEMP 36.1–37.4; O2SAT 91–96
[2023-03-24] MEDS: AMPICILLIN/SULBACTAM 3 GM in Normal Saline 100 ML IVPB ×3 (00:04→16:32)
--- NOTE | 2023-03-24 00:09 | W.PM.HP.N ---
Date of service: 03/24/23 Time of Service: 00:09 Assessment and Plan Assessment and plan (1) Sepsis: Status: Acute Assessment and plan: -patient meets sepsis criteria with HR >90 and RR >20 upon arrival to the ED with CT showing signs of likely aspiration PNA in the setting of previous esophageal CA s/p sphincterotomy -started on unasyn in ED, will continue -NPO until speech therapy consultation -f/u AM CBC, BMP Qualifiers: Acute respiratory failure type: with hypoxia Sepsis acute organ dysfunction status: with acute organ dysfunction Sepsis type: sepsis due to unspecified organism Severe sepsis acute organ dysfunction type: acute respiratory failure Severe sepsis shock status: without septic shock Qualified Code(s): A41.9 - Sepsis, unspecified organism; R65.20 - Severe sepsis without septic shock; J96.01 - Acute respiratory failure with hypoxia (2) Recurrent aspiration pneumonia: Status: Acute Assessment and plan: -as noted above (3) Acute respiratory failure with hypoxia: Status: Acute Assessment and plan: -secondary to sepsis aspiration PNA and underlying CPFE -required as much as 6L NC, now on 2L NC -wean as tolerated with goal SpO2 88-92% (4) Combined pulmonary fibrosis and emphysema (CPFE): Status: Acute Assessment and plan: -continue home inhaler regimen - (5) CAD (coronary artery disease): Status: Chronic Assessment and plan: -continue home asa, statin, and betablocker Qualifiers: Associated angina: without angina Coronary Disease-Associated Artery/Lesion type: unspecified vessel or lesion type Lummi vs. transplanted heart: [place] and [place] heart Qualified Code(s): I25.10 - Atherosclerotic heart disease of [place] coronary artery without angina pectoris History of Present Illness History of Present Illness Chief Complaint: tachycardia Narrative: 72-year-old male past history of pulmonary fibrosis with emphysema, CAD s/p CABG, CHF, a-fib, and multiple recent hospitalization for recurrent PNA who presents to the ED with complaints of an elevated HR. According to the ED physician, EMS provided a limited report without vitals signs or other details except to state that they gave the patient 10mg diltiazem for an elevated HR. Otherwise the patient himself is unwilling to provide further details at this time. He is followed by [facility] Pulmonology as well as Palliative Care. In the ED the patient was noted to tachycardic with a HR of 108, RR of 27 with a normal blood pressure but was requiring up to 6L NC to maintain O2 saturation of >92%. His CBC and CBC were unremarkable but his pBNP was [phone] ). [address] w/ w/o was done and showed patchy alveolar opacities in the left lower lung zones concerning for aspiration PNA. The patient was started on unasyn and the emergency room physician paged hospitalist for admission of a patient with sepsis secondary to aspiration PNA with acute hypoxic respiratory failure. Review of Systems All systems reviewed & are unremarkable except as noted in HPI and below PFSH All Active Problems (Updated 03/24/23 @ 00:26 by Juarez Saleem DO) Aspiration pneumonia (Acute) Hypoxemia (Acute) HTN (hypertension) (Chronic) 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) Acute respiratory failure with hypoxia (Acute) Sepsis (Acute) Recurrent pneumonia (Acute) Pneumonia (Acute) Hypoxemia (Acute) Borderline hyperglycemia (Acute) Recurrent aspiration pneumonia (Acute) COPD exacerbation (Acute) Pneumonia (Acute) COPD exacerbation (Acute) Shortness of breath (Acute) Lung mass (Acute) Elevated troponin (Acute) Hypotension (Acute) DNR (do not resuscitate) (Acute) DNR, but would like trial of intubation. See 09/26 Note Acute bronchitis (Acute) Left foot pain (Acute) Palliative care patient (Acute) Underweight (Acute) Diastolic heart failure (Chronic) Closed intertrochanteric fracture of left femur (Acute) s/p IMN fixation (08/28/22) Fall (Acute) Blunt head trauma (Acute) Contusion of elbow, left (Acute) Contusion of left leg (Acute) Closed fracture of left hip (Acute) Mild cognitive impairment (Acute) Advanced care planning/counseling discussion (Acute) Literacy level of illiterate (Acute) Palliative care encounter (Acute) Acute on chronic right-sided congestive heart failure (Chronic) Pneumonia (Acute) Depression (Chronic) Dental abscess (Acute) 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) Abnormal chest CT (Acute) Full code status (Acute) Urinary retention (Chronic) 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) CAP (community acquired pneumonia) (Acute) Generalized weakness (Acute) Skin tear of left elbow without complication (Acute) Chronic obstructive lung disease (Chronic) Tricuspid regurgitation (Chronic) CAD (coronary artery disease) (Chronic) Hypertension (Chronic) Medical History Abdominal pain Abnormal radiologic findings on diagnostic imaging of renal pelvis, ureter, or bladder Acute on chronic anemia Acute on chronic diastolic (congestive) heart failure Acute on chronic systolic CHF (congestive heart failure) Adenocarcinoma of esophagus From [facility]:Hx GI Cancer...EGD 04/2021 with friable mucosa. SDOne at that time because of GI blooed Afib Alcohol abuse Alcohol abuse, continuous drinking behavior Anemia Aspiration pneumonia Bilateral lower extremity edema CAD (coronary artery disease) of artery bypass graft Cerumen impaction CHF, acute on chronic Closed intertrochanteric fracture Confusion state COVID-19 COVID-19 Diabetes mellitus Difficulty reading Edema Encounter for colorectal cancer screening Epididymitis, right (08/02/16) Essential hypertension Failure to thrive Fall GERD (gastroesophageal reflux disease) GI bleed GI bleeding H/O malignant neoplasm of stomach Heart failure, left, with LVEF 41-49% History of fracture of left hip S/P IM NAIL DOS: 08/28/22 History of GI bleed Hoarseness Hydrocele, right (01/23/16) Hyperlipidemia Hypophosphatemia Kyphoscoliosis Low back pain Malnutrition Mild bibasilar atelectasis Pancreatitis Poor hygiene Prediabetes Protein malnutrition Pulmonary hypertension Recent weight loss Rib fractures Shortness of breath Solitary pulmonary nodule Tinnitus, left Tobacco abuse Weight loss Surgical History cardiac cath Coronary Artery Bypass Gaft (CABG) EGD - IV Sedation Esophagectomy H/O colonoscopy (2007) H/O colonoscopy (04/14/18) dr geller, sigmoid diverticulosis, repeat 10 years History of esophagogastroduodenoscopy (EGD) (09/2017) History of hydrocelectomy History of right inguinal hernia repair repair times two sugrical flap of unhealing wound Family History Mother No problems noted. Father No problems noted. Social History Smoking/Tobacco Use Status: Former Tobacco Use Quit Date: 03/06/20 Smoking risk assessment performed?: Yes Alcohol Intake: former Drug use: Never Substance use type: does not use Housing: apartment Current gender identity: male What type of physical activity do you participate in: none Do you feel safe at home: Yes Do you feel safe in your relationship?: Yes Meds Allergies and Home Medications Allergies Allergy/AdvReac Type Severity Reaction Status Date / Time No Known Allergies Allergy Verified 01/25/23 21:14 Home Medications Medication Instructions Recorded Confirmed Type gabapentin 300 mg capsule 300 mg PO TID 07/19/22 02/24/23 History atorvastatin 10 mg tablet 10 mg PO HS 08/28/22 02/24/23 History cholecalciferol (vitamin D3) 50 50 mcg PO DAILY 08/28/22 02/24/23 History mcg (2,000 unit) tablet multivitamin with minerals-ferrous 1 tab PO DAILY 08/28/22 02/24/23 History sulfate 4.5 mg iron tablet (One Daily Multivitamins with Minerals) tamsulosin 0.4 mg capsule 0.4 mg PO HS 08/28/22 02/24/23 History tiotropium 2.5 mcg-olodaterol 2.5 2 puff inhalation DAILY 08/28/22 02/24/23 History mcg/actuation mist for inhalation (Stiolto Respimat) acetaminophen 500 mg tablet 1,000 mg (2 x 500 mg) PO TID #0 09/06/22 02/24/23 Rx tabs ferrous gluconate 324 mg (38 mg 324 mg PO BID@1000,2200 #0 tabs 09/06/22 02/24/23 Rx iron) tablet mirtazapine 7.5 mg tablet 7.5 mg PO HS #0 tabs 09/06/22 02/24/23 Rx food supplemt, lactose-reduced 50 ml PO BID 09/22/22 02/24/23 History 0.04 gram-1.05 kcal/mL oral liquid (Boost Breeze Nutritional) guaifenesin 100 mg/5 mL oral 200 mg PO Q4H PRN 09/22/22 02/24/23 History liquid (Robafen) albuterol sulfate 90 mcg/actuation 2 puff inhalation Q4H PRN 10/05/22 02/24/23 History aerosol inhaler aspirin 81 mg capsule 162 mg PO DAILY 10/05/22 02/24/23 History loperamide 2 mg capsule 4 mg PO .COMPLEX PRN 10/05/22 02/24/23 History polyethylene glycol 3350 17 gram 17 g PO DAILY 10/05/22 02/24/23 History oral powder packet sennosides 8.6 mg tablet (Senokot) 17.2 mg PO HS 10/05/22 02/24/23 History ascorbic acid (vitamin C) 500 mg 500 mg PO 1XD 12/04/22 02/24/23 History tablet (Vitamin C) pantoprazole 40 mg tablet,delayed 40 mg PO 1XD 12/04/22 02/24/23 History release metoprolol succinate 25 mg 25 mg PO BID #0 tabs 01/31/23 02/24/23 Rx tablet,extended release 24 hr Exam Narrative Exam Narrative: Frail, cachectic appearing older gentleman laying in bed in no acute distress, 2L NC in place, awake, alert, oriented but minimally conversational or cooperative, heart irregularly irregular without rubs, murmurs or gallops, lungs with diffuse course breath sounds throughout and diminished in LLL, abdomen soft, non-tender and non-distended Results Labs 03/23/23 21:47 03/23/23 21:47 Labs: Laboratory Results - last 24 hr 03/23/23 03/23/23 03/23/23 21:47 22:15 22:45 WBC 11.28 H RBC 5.74 Hgb 17.4 Hct 55.1 H MCV 96 H MCH 30.3 MCHC 31.6 L RDW 14.7 H Plt Count 292 MPV 10.1 Immature Gran % 0.3 Neutrophils % 79.3 Lymphocytes % 10.5 Monocytes % 9.3 Eosinophils % 0.3 Basophils % 0.3 Nucleated RBC % 0.0 Absolute Neutrophils 8.95 H Absolute Lymphocytes 1.18 L Absolute Monocytes 1.05 H Absolute Eosinophils 0.03 Absolute Basophils 0.03 PT 11.3 H INR 1.1 APTT 29.5 VBG pH 7.34 VBG pCO2 46 VBG pO2 37 VBG HCO3 25 VBG Total CO2 22 L VBG O2 Saturation 61 VBG Base Excess -1 VBG Lactate 2.5 H* Sodium 144 Potassium 4.2 Chloride 105 Carbon Dioxide 26.7 Anion Gap 12.3 H BUN 34 H Creatinine 0.9 Est GFR (CKD-EPI 2020) 90.74 Glucose 95 Calcium 11.0 H Total Bilirubin 1.1 H AST 26 ALT 17 Alkaline Phosphatase 146 H Troponin I < 50 NT-Pro-B Natriuret Pep 2968 H Total Protein 9.8 H Albumin 3.9 TSH 1.36 COVID-19 Source Nasopharynx SARS-CoV-2 (PCR) Negative Influenza Type A (PCR) Negative Influenza Type B (PCR) Negative RSV (PCR) Negative Last Vital Signs Temp 97.5 F L 03/23/23 21:27 Pulse 103 H 03/23/23 22:01 Resp 15 03/23/23 22:10 BP 152/93 H 03/23/23 22:01 Pulse Ox 92 03/23/23 21:27 Time Spent Time spent with Patient: >75 minutes (80min) Time was spent: preparing to see the patient(eg.review tests), obtaining and/or reviewing separately otained hiistory, ordering medications,tests, procedures, referring, communicating with other health career resource technician, indepentently interpreting results, counseling the patient and care coordination
[2023-03-24] MEDS: Acetaminophen 500 MG TAB 1000 MG PO ×4 (03:28→20:46)
--- NOTE | 2023-03-24 03:34 | RESPIRATORY ---
RT Assessment Start: 03/24/23 01:48 Freq: .q shift and prn Status: Active Protocol: Document 03/24/23 03:14 RT.HOSM (Rec: 03/24/23 03:26 RT.HOSM [facility]-20) RT Assessment Smoking History Quit Date 03/06/20 Tobacco Type cigarettes Packs per Day 1 Years smoked 50 OXYGEN HISTORY: Current Respiratory Symptoms Current Respiratory Symptoms Cough,Shortness of breath Activity Activity Level Walks in house and onto porch Respiratory Breath Sounds Breath Sounds Any abnormal sounds, decreased breath sounds Pulse Rate >100 Respiratory Rate 18-25 Shortness of Breath At rest Respiratory Therapy Score Total 5 Assessment and Plan RT Treatment Protocol Bronchodilator Aerosol Therapy Protocol,Bronchial Hygiene Therapy Protocol Note Pt states he has smoked since he was a teenager, quit 3 yrs ago. Pt walks around the house, states that in the grocery store is too far. Pt has a wet non productive cough but states that this is normal for him. He does use oxygen at home but is unsure of how much/ pt unclear and originally stated he does not use O2. Pt states he has inhalers that he is supposed to take every day but is unsure of what they are.
[2023-03-24 07:22] LABS: HCT 49.3 % (40.0-50.0); HGB 15.8 g/dL (13.5-17.5); MCH 30.2 pg (27.0-33.0); MCV 94 fL (80-95); MPV 9.7 fL (8.0-11.0); Platelet Count 245 10^3/uL (130-400); RBC 5.24 10^6/uL (4.36-5.78); RDW 14.6 % (11.8-14.1); RDW-SD 51.4 fL; WBC 14.06 10^3/uL (4.4-10.8)
[2023-03-24 07:35] LABS: Anion Gap 15.6 mmol/L (3-11); BUN 37 mg/dL (7-18); CO2 22.4 mmol/L (21.0-32.0); CREATININE 0.9 mg/dL (0.70-1.30); Calcium 10.1 mg/dL (8.5-10.1); Chloride 108 mmol/L (98-107); Estimated GFR 90.74 (mL/min/1.73m2); Glucose 97 mg/dL (74-106); Magnesium 1.9 mg/dL (1.8-2.4); Potassium 3.4 mmol/L (3.5-5.1); Sodium 146 mmol/L (136-145)
[2023-03-24] MEDS: Enoxaparin 40 MG/0.4 ML SYR SC (08:43)
[2023-03-24] MEDS: Ascorbic Acid 500 MG TAB PO (08:54)
[2023-03-24] MEDS: Pantoprazole 40 MG TABCR PO (08:54)
[2023-03-24] MEDS: Gabapentin 300 MG CAP PO ×2 (08:54→14:20)
[2023-03-24] MEDS: Metoprolol CR 25 MG TABCR PO (08:54)
[2023-03-24] MEDS: Cholecalciferol (Vitamin D3) 1,000 UNIT TAB 2000 UNITS PO (08:54)
[2023-03-24] MEDS: Multivitamin w/Minerals TAB 1 TAB PO (08:55)
[2023-03-24] MEDS: Polyethylene Glycol 3350 17 GM PACKET PO (09:08)
[2023-03-24] MEDS: Tiotropium/Olodaterol 10 PUFF INHALER 2 PUFF IH (09:19)
[2023-03-24] MEDS: Ferrous Gluconate 324 MG TAB PO ×2 (09:47→20:46)
[2023-03-24] MEDS: Aspirin 81 MG CHEW 162 MG PO (09:52)
--- NOTE | 2023-03-24 10:22 | W.SPSTE ---
Date of service: 03/24/23 Time of Service: 08:45 Subjective Clinical (Bedside) Swallow Evaluation Speech Language Pathology Referred by: Trenton Goldman Referral Type: Clinical Swallow Evaluation Reason for Referral/HPI: Nainhelga Kang is a 72 yo male with history of esophageal CA s/p sphincterectomy and esophagectomy (date unknown), history of pulmonary fibrosis, and history of recurrent aspiration pneumonia. He was admitted 03/24 with pna, sepsis, acute respiratory failure. Of notice, he has been admitted to the hospital for pulmonary complications, primarily pneumonia, at least 6+ times this calendar year. Last MBS completed was during admission in November 2022. During that study he had once incident of prandial aspiration, though it was spontaneously ejected. There was stasis of the barium tablet in the mid-esophagus, not resolved with liquid wash and requiring puree chaser to push into stomach. He was recommended L5 Minced/Moist, Thin liquids, and strict aspiration precautions (see report for further information). Unclear whether Ilia has been following these recommendations. When asked what he has been eating, he states not a lot, there's not a lot of food around. He is appearing cachetic this date. He states he does feel he has ongoing weightloss issues. STRUCTURAL ANALYST IMPRESSIONS & RECOMMENDATIONS: Patient presents with known chronic mild oral pharyngeal dysphagia, anticipate likely exacerbated with current deconditioned state. While in upright positioning, he was able to tolerate thin liquids and puree solids without overt s/s aspiration. With trials of soft solids (montenegrin muffin w/ butter), he eventually expectorated the item due to inability to fully masticate. In review of MBS findings from November 2022 and non-instrumental evaluation today, patient is at increased risk for prandial aspiration, however anticipate these risks can be mitigated with diet modifications/aspiration precautions as outlined below. Plan for ongoing monitoring for consideration of repeat MBS. However, based on findings from last study/presentation today and frequency of recurrent pneumonia, highly anticipate esophageal dysfunction may be the etiology of aspiration events. Thus, further work up may be indicated in areas of esophageal functioning - recommend EGD/Barium swallow/GI referral. GI history remains unclear per records and patient is a poor historian at this time. Medical records indicate hx of esophagectomy and sphincterectomy - dates unknown. FURTHER STRUCTURAL ANALYST SERVICES: Patient to be followed while on unit. Discharge plan unclear, though patient would likely benefit from ongoing STRUCTURAL ANALYST services at next level of care Diet Recommendations: Level 5 Minced and Moist Solids Level 0 Thin Liquids Medications whole in L4 puree (Applesauce/pudding) Close Supervision with PO, especially to assist with tray set up/positioning prior to meals SUBJECTIVE: Patient received awake, lethargic, agreeable to evaluation Pain Reported? 7/10 L side Baseline Swallow Function: Patient unable to report PO Trials Assessed: Ice IDDSI 0 Thin Liquids IDDSI 4 Puree Solid (pudding) IDDSI 7EC Easy to Chew Solid (Cymraes muffin extra butter) Medications administered by RN (crushed/whole in pudding) Oral Mechanism Examination: Patient with upper dentures only. At least mild weakness is appreciated in lingual/labial strength. ROM/coordination is WNL. Voice is hypophonic, hoarse, and slightly wet at baseline. Volitional cough is productive. Oral Phase Findings: Difficulty with bolus manipulation Difficulty with a-p transport Difficulty chewing - expectorated soft solid Pharyngeal Phase Findings: Delayed swallow initiation Reduced hyolaryngeal elevation/excursion Patient grimacing while swallowing, though denied pain ASSESSMENT: Further STRUCTURAL ANALYST Services indicated. Patient to be followed while on unit Recommendation at Discharge: STRUCTURAL ANALYST Services likely indicated at next level of care- to be determined Suggested Referrals: Gastroenterology Recommended Procedures: consider EGD/barium swallow Recommendations: ? SOLIDS: 5-Minced & Moist Solids LIQUIDS: 0-Thin Liquids MEDICATIONS: Whole in L4 puree (applesauce, pudding, ice cream) RISK MANAGEMENT: HOB bolt upright as tolerated; upright for all PO intake. REMAIN UPRIGHT FOR AT LEAST 60 MIN AFTER MEALS Encourage physical mobility as tolerated. Oral hygiene q4h/every 4 hours, before/after PO intake using friction with toothbrush on all oral structures as tolerated Level of Assistance/Supervision: Distant supervision for all PO intake (25% of meal) PO intake only when awake/alert? Strategies/Adaptations/Assistive Equipment: Small sips and bites when eating, Slow rate of intake, Swallow between bites Posture/Positioning Needs: Maintain upright position at least 60 minutes after meals, Avoid meals/snacks 2-3 hours prior to reclining/sleeping, Sleep with head of bed elevated to reduce likelihood of nocturnal reflux Education Provided to: Nursing, Patient Topics Addressed: anatomy/physiology of swallowing mechanism, overt s/sx to monitor for re: potential aspiration of food / liquids, recommendations for improved oral care, Apraxia of Speech Dx PLAN: Frequency: 2-3x/week for 1-2 weeks Goals: Manager Business Operations Goals: Patient will remain free from aspiration-related illness, malnutrition, and dehydration. Short Term Goals: Patient will tolerate L5 Minced Moist Diet and Thin liquids without overt s/s aspiration across 2/2 visits. STRUCTURAL ANALYST CPT Code: 48633 Clinical Swallowing Evaluation Coding CPT Codes EVALUATE SWALLOWING FUNCTION - 32256 ([id number]) Additional Codes Date of Service ([id number]) Date of service: 03/24/23
--- NOTE | 2023-03-24 11:28 | INITIAL_ITS ---
Date of service: 03/24/23 Time of Service: 11:28 Care Management Initial Assmt Initial Assessment REASON FOR HOSPITALIZATION:: Sepsis, Aspiration pneumonia, Acute Respiratory Failure, CPFE PREVIOUS FUNCTIONAL STATUS/SOCIAL/FAMILY SUPPORTS:: Ilia has been at [facility] for the last few months due to his health decline. Prior to SNF he was living in an apartment in [facility] with his roommate Lyudmila and a cat. Per pt, he is planning on going back to Lyudmila's when he is better. Ilia has several chronic health issues and is followed in the community by Palliative Care. CURRENT FUNCTIONAL STATUS:: Ilia was lying in bed when CM met with him. He is less conversive today compared to previous encounters with this fiction and nonfiction writer prose and was having a difficult time keeping his eyes open. Ilia shares that he will be going back to [facility] when ready, but Lyudmila is waiting for him to get better and come home. ADVANCE DIRECTIVES:: On file; sister Chrissy Stewart is appointed as Health Care Agent. Has patient been provided with info about the portal/API?: Yes Did the patient sign up for the portal?: No CODE STATUS:: DNR/DNI INSURANCE COVERAGE / FINANCIAL ISSUES:: Medicaid Medicare CURRENT HOME/COMMUNITY SERVICES/EQUIPMENT:: [facility] PRIMARY CARE PHYSICIAN:: Silvina Perdue MD POTENTIAL DISCHARGE NEEDS:: Follow up appointments with PCP and sales outfitter and resumption of HH RN, PT and OT. PATIENT/FAMILY EDUCATION NEEDS:: Review of discharge instructions including medications, limitations and follow up plan of care; discuss Ask Me Three and self management. ANTICIPATED BARRIERS TO DISCHARGE:: None identified at this time. TRANSPORTATION:: Via facility van PLAN:: Ilia will return to [facility] via facility van when medically ready for discharge. He will follow up with facility/community providers and discharge plan of care as instructed. CM will continue to follow. PFSH All Active Problems (Updated 03/24/23 @ 00:26 by Juarez Saleem DO) Aspiration pneumonia (Acute) Hypoxemia (Acute) HTN (hypertension) (Chronic) 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) Acute respiratory failure with hypoxia (Acute) Sepsis (Acute) Recurrent pneumonia (Acute) Pneumonia (Acute) Hypoxemia (Acute) Borderline hyperglycemia (Acute) Recurrent aspiration pneumonia (Acute) COPD exacerbation (Acute) Pneumonia (Acute) COPD exacerbation (Acute) Shortness of breath (Acute) Lung mass (Acute) Elevated troponin (Acute) Hypotension (Acute) DNR (do not resuscitate) (Acute) DNR, but would like trial of intubation. See 09/26 Note Acute bronchitis (Acute) Left foot pain (Acute) Palliative care patient (Acute) Underweight (Acute) Diastolic heart failure (Chronic) Closed intertrochanteric fracture of left femur (Acute) s/p IMN fixation (08/28/22) Fall (Acute) Blunt head trauma (Acute) Contusion of elbow, left (Acute) Contusion of left leg (Acute) Closed fracture of left hip (Acute) Mild cognitive impairment (Acute) Advanced care planning/counseling discussion (Acute) Literacy level of illiterate (Acute) Palliative care encounter (Acute) Acute on chronic right-sided congestive heart failure (Chronic) Pneumonia (Acute) Depression (Chronic) Dental abscess (Acute) 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) Abnormal chest CT (Acute) Full code status (Acute) Urinary retention (Chronic) 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) CAP (community acquired pneumonia) (Acute) Generalized weakness (Acute) Skin tear of left elbow without complication (Acute) Chronic obstructive lung disease (Chronic) Tricuspid regurgitation (Chronic) CAD (coronary artery disease) (Chronic) Hypertension (Chronic) Medical History Abdominal pain Abnormal radiologic findings on diagnostic imaging of renal pelvis, ureter, or bladder Acute on chronic anemia Acute on chronic diastolic (congestive) heart failure Acute on chronic systolic CHF (congestive heart failure) Adenocarcinoma of esophagus From [facility]:Hx GI Cancer...EGD 04/2021 with friable mucosa. SDOne at that time because of GI blooed Afib Alcohol abuse Alcohol abuse, continuous drinking behavior Anemia Aspiration pneumonia Bilateral lower extremity edema CAD (coronary artery disease) of artery bypass graft Cerumen impaction CHF, acute on chronic Closed intertrochanteric fracture Confusion state COVID-19 COVID-19 Diabetes mellitus Difficulty reading Edema Encounter for colorectal cancer screening Epididymitis, right (08/02/16) Essential hypertension Failure to thrive Fall GERD (gastroesophageal reflux disease) GI bleed GI bleeding H/O malignant neoplasm of stomach Heart failure, left, with LVEF 41-49% History of fracture of left hip S/P IM NAIL DOS: 08/28/22 History of GI bleed Hoarseness Hydrocele, right (01/23/16) Hyperlipidemia Hypophosphatemia Kyphoscoliosis Low back pain Malnutrition Mild bibasilar atelectasis Pancreatitis Poor hygiene Prediabetes Protein malnutrition Pulmonary hypertension Recent weight loss Rib fractures Shortness of breath Solitary pulmonary nodule Tinnitus, left Tobacco abuse Weight loss Surgical History cardiac cath Coronary Artery Bypass Gaft (CABG) EGD - IV Sedation Esophagectomy H/O colonoscopy (2007) H/O colonoscopy (04/14/18) dr geller, sigmoid diverticulosis, repeat 10 years History of esophagogastroduodenoscopy (EGD) (09/2017) History of hydrocelectomy History of right inguinal hernia repair repair times two sugrical flap of unhealing wound Family History Mother No problems noted. Father No problems noted. Social History Smoking/Tobacco Use Status: Former Tobacco Use Quit Date: 03/06/20 Smoking risk assessment performed?: Yes Alcohol Intake: former Drug use: Never Substance use type: does not use Housing: apartment Current gender identity: male What type of physical activity do you participate in: none Do you feel safe at home: Yes Do you feel safe in your relationship?: Yes
--- NOTE | 2023-03-24 19:56 | W.PALLCONSUL ---
Date of service: 03/24/23 Time of Service: 12:14 History of Present Illness Narrative: Mr. Kang is a 71-year-old gentleman with history of pulmonary disease (COPD, pulmonary fibrosis), intermittent urinary retention, atrial fibrillation(on DOAC), coronary artery disease, history of EtOH (in remission for over a year, confirmed again today), chronically underweight (for years, decades), ambulatory challenges,reported distant history of gastric malignancy (in remission), history of pneumonia with sepsis.? Also had repair of left hip fracture end of August 2022 Patient has been followed both inpatient and outpatient by the palliative care team for supportive care and advance care planning over the past year.? He has had multiple hospital admissions, most with subsequent subacute rehab stays. He has spent minimal time back in his apartment in between these admissions since last . Most recently he was admitted in about 8 weeks ago to [facility] with his recurrent pneumonia. He was discharged to [facility]. Conflicting information. Patient says he was residing there until yesterday (ED note says he was transferred from home). I did talked with him several times over the previous 2 months and he was doing fine, wanted to go home. However staff and family felt he was not yet ready to leave. Patient unwilling to give history today. As per ED note, staff found him to be tachypneic, tachycardic and somewhat confused and worried about recurrence of his pneumonia. He was transferred to the ED where he was diagnosed with new bilateral pulmonary infiltrates. Diagnosed with pneumonia with sepsis and admitted for IV antibiotics and supplemental oxygen. This morning he does no longer requiring supplemental oxygen. Upon arrival in his room around noon today, he is awake and alert and sitting up in bed occasional deep juicy cough. No obvious tachypnea. Talking in short sentences, which is actually relatively loquacious for him. He seems very hungry and is very eager to eat the food on his tray. He has no no other specific complaints Updates: Choices for care application: Patient unable to tell me. Apparently he does not have CFC. Lyudmila was filling out application last time I was at her house. Recurrent pneumonia: Pulmonology had recommended repeat CT. happily, CT scan of his chest was done last night. He does have 0.9 cm spiculated nodule, previously seen. Also resolutions of pleural fluid lesions. Bibasilar infiltrates. He has not seen Dr. Connolly since his last admission. (He has never successfully been to a scheduled outpatient visit with her) Sounds like there was miscommunication and prison was unaware of his appointment last month. Recurrent hospital admissions: This is at least a 7 possible admission since . Interestingly, this is the first hospital admission from long-term facility. Previous admissions were all after he returned home and the longest he had been at home without having to return to the hospital was less than 3 weeks. Care Team: Primary Care physician: While in SNF: Facility medical team (Araceli Huddleston), when living at home: Dr. Silvina Perdue Pulmonary: Dr. Connolly Cardiology: Dr. Portillo Social HX:?Single gentleman,Lives with housemate Lyudmila Bellamy in apartment in [facility].? Lyudmila functions as his caregiver and friend, setting up his doctor appointments, administering his medication, cooking his food, helping him dress, standing by when he showers, cleaning the house, doing the shopping. Unclear who is doing his finances. He has a sister who lives in [facility] who has visited him him on occasion when he is hospitalized.(I think this is Chrissy) 1 daughter who from breast cancer.? Has 2 grandchildren who lives in [place] but he has no relationship. No friends. Sister lives in [place] (is [facility] on [place]); Has [facility] transportation.? Neither him nor roommate has car. Enjoys: Watching TV, being at home, being with the animals (dog and cat, no longer have a bird) EtOH: Sober since at least summer 2021 Cigarettes: Quit smoking spring 2022 Additional services:?Meals on Wheels, [facility] for transportation.? Sounds like he had some sort of case management specialist, he is unable to tell me what agency this person comes from or name. Last time he was at his house there was an application for Choices for Care. He is unable to give me any additional information on that today. Impression of currents health status: Doing better What bothers you the most: Want to go home What worries you the most: Not worried Goals: Wants to eat lunch, does not wish to discuss any other goals at this time. Function: Ambulation: mostly self-propelling in wheelchair since hip fracture. Prior to that using cane ADLs: Reports he is independent. Staff not queried at [facility] recently iADLs: He is not sure who manages his finances.? He dependent on all other iADLs (cannot prepare all meals but can grab a snack, does not do any home chores). Lyudmila was managing his medications last time he was living at home in January. Hearing: Perhaps somewhat diminished, has some attention issues. Vision: Grossly normal Cognition: Difficult to evaluate today Falls:None in the last month. Palliative Performance Scale % Ambulation Activity and Evidence of Disease Self Care Intake Level of Consciousness 100 Full Normal activity, no evidence of disease Full Normal Full 90 Full Normal activity, some evidence of disease Full Normal Full 80 Full Normal activity with effort, some evidence of disease Full Normal or reduced Full 70 Reduced Unable to do normal work, some evidence of disease Full Normal or reduced Full 60 Reduced Unable to do hobby or some housework, significant disease Occasional assist necessary Normal or reduced Full or confusion 50 Mainly sit/lie Unable to do any work, extensive disease Considerable assistance required Normal or reduced Full or confusion 40 Mainly in bed Unable to do any work, extensive disease Mainly assistance Normal or reduced Full, drowsy, or confusion 30 Totally bed bound Unable to do any work, extensive disease Total care Reduced Full, drowsy, or confusion 20 Totally bed bound Unable to do any work, extensive disease Total care Minimal sips Full, drowsy, or confusion 10 Totally bed bound Unable to do any work, extensive disease Total care Mouth care only Drowsy or coma 0 - - - - Patient Score: 50?60 60 Spiritual history: Not active zoroastrianism goer.? Believes in God.? Prayer not helpful Palliative review of systems: Pain: Denies pain today Dyspnea: Seen within 18 hours of admission, reports his breathing feels better. Staff notices deep cough productive of green sputum today. GI symptoms: No problems Appetite: Hungry Depression: Looks upbeat today. Anxiety: None Advanced Care Planning: Advanced Directive: On file Health Care Agent: On file (Lyudmila is [facility]) COLST: Current COLST on file in [facility] chart is from 12/31/2022 which states DNR, DNI, transfer and treat; avoid invasive interventions. Patient wants artificial nutrition, artificial hydration and antibiotics. Limitations: Assessment and Plan Assessment and plan (1) Palliative care encounter: Status: Acute Assessment and plan: 72-year-old gentleman with recurrent pneumonia and multiple hospital admissions in the last year, admitted again yesterday with another episode of pneumonia. This point felt to have recurrent aspiration pneumonia. Not surprising given his history of esophagectomy for esophageal cancer. Has been living most recently at long-term facility for prolonged period of acute rehab. I was unable to reach his friend and health healthcare agent Lyudmila by phone today to get more history.. Pulmonary: Seen over time by Dr. 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 She had been hoping to see an updated chest CT to decide whether he possibly had a lung mass causing the recurrence of pneumonia. -Recommend consulting Dr. Connolly to see Ilia while he is an inpatient as it seems to be so difficult to get him to an outpatient appointment with her. Dysphagia, possible aspiration, history of esophagectomy: Evaluated earlier today by [facility] speech therapist. Lyudmila had been making sure that Ilia had a minced diet and she has been using Thick-It (had had trouble paying for the Thick-It, apparently not covered by his insurance). [facility] notes not available to me to see what sort of diet he was getting there or if he was seen by facility PUBLICATIONS SALES REPRESENTATIVE this summer. Evaluation today, PUBLICATIONS SALES REPRESENTATIVE felt that esophageal dysfunction is very likely to be the etiology of his aspiration events. She recommended considering repeat modified barium swallow, allowing him to have a diet with consistency being minced as well as moist solids while under close supervision and making sure he was sitting upright while eating. She will follow-up with him. I note that whenever I see him in prison, he is almost always sitting up in his wheelchair pushing himself around. Advance care planning: COLST most recently updated by prison medical provider in December. Discussion with Ilia today, he is glad that he was sent to the hospital. We did not specifically review desires vis-?-vis CPR/intubation. When I spoke with him end of January, this continue to be what he wanted done. Multiple hospital admissions/discharge planning: Over time, the patient repeatedly expresses the desire to return home to his apartment where he lives with his friend and flame cutting machine operator Lyudmila. She is also his healthcare agent. I am unsure why he had not been able to be discharged to home from [facility]. It may be helpful to call and ask (I will also discuss with Lyudmila when I am able to get in touch with her). Efforts over the last several months have been aimed at trying to increase support at home: Getting medications delivered in blister packs, working on getting choices for care (this may pay for home health aide to come in several days a week to help with bathing and setting up medications), etc. However, important to note that over the last 10 months, patient has remained at home no more than 3 weeks before need to be admitted again with recurrent pneumonia. Unclear why. during my visits, it appears that medications are being administered appropriately. (2) Recurrent pneumonia: Status: Acute (3) DNR (do not resuscitate): Status: Acute (4) Mild cognitive impairment: Status: Acute (5) History of esophagectomy: Status: Acute [facility] All Active Problems (Updated 03/24/23 @ 20:14 by Savi Montez MD) History of esophagectomy (Acute) Aspiration pneumonia (Acute) Hypoxemia (Acute) HTN (hypertension) (Chronic) 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) Acute respiratory failure with hypoxia (Acute) Sepsis (Acute) Recurrent pneumonia (Acute) Pneumonia (Acute) Hypoxemia (Acute) Borderline hyperglycemia (Acute) Recurrent aspiration pneumonia (Acute) COPD exacerbation (Acute) Pneumonia (Acute) COPD exacerbation (Acute) Shortness of breath (Acute) Lung mass (Acute) Elevated troponin (Acute) Hypotension (Acute) DNR (do not resuscitate) (Acute) Acute bronchitis (Acute) Left foot pain (Acute) Palliative care patient (Acute) Underweight (Acute) Diastolic heart failure (Chronic) Closed intertrochanteric fracture of left femur (Acute) s/p IMN fixation (08/28/22) Fall (Acute) Blunt head trauma (Acute) Contusion of elbow, left (Acute) Contusion of left leg (Acute) Closed fracture of left hip (Acute) Mild cognitive impairment (Acute) Advanced care planning/counseling discussion (Acute) Literacy level of illiterate (Acute) Palliative care encounter (Acute) Acute on chronic right-sided congestive heart failure (Chronic) Pneumonia (Acute) Depression (Chronic) Dental abscess (Acute) 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) Abnormal chest CT (Acute) Full code status (Acute) Urinary retention (Chronic) 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) CAP (community acquired pneumonia) (Acute) Generalized weakness (Acute) Skin tear of left elbow without complication (Acute) Chronic obstructive lung disease (Chronic) Tricuspid regurgitation (Chronic) CAD (coronary artery disease) (Chronic) Hypertension (Chronic) Medical History Abdominal pain Abnormal radiologic findings on diagnostic imaging of renal pelvis, ureter, or bladder Acute on chronic anemia Acute on chronic diastolic (congestive) heart failure Acute on chronic systolic CHF (congestive heart failure) Adenocarcinoma of esophagus From [facility]:Hx GI Cancer...EGD 04/2021 with friable mucosa. SDOne at that time because of GI blooed Afib Alcohol abuse Alcohol abuse, continuous drinking behavior Anemia Aspiration pneumonia Bilateral lower extremity edema CAD (coronary artery disease) of artery bypass graft Cerumen impaction CHF, acute on chronic Closed intertrochanteric fracture Confusion state COVID-19 COVID-19 Diabetes mellitus Difficulty reading Edema Encounter for colorectal cancer screening Epididymitis, right (08/02/16) Essential hypertension Failure to thrive Fall GERD (gastroesophageal reflux disease) GI bleed GI bleeding H/O malignant neoplasm of stomach Heart failure, left, with LVEF 41-49% History of fracture of left hip S/P IM NAIL DOS: 08/28/22 History of GI bleed Hoarseness Hydrocele, right (01/23/16) Hyperlipidemia Hypophosphatemia Kyphoscoliosis Low back pain Malnutrition Mild bibasilar atelectasis Pancreatitis Poor hygiene Prediabetes Protein malnutrition Pulmonary hypertension Recent weight loss Rib fractures Shortness of breath Solitary pulmonary nodule Tinnitus, left Tobacco abuse Weight loss Surgical History cardiac cath Coronary Artery Bypass Gaft (CABG) EGD - IV Sedation Esophagectomy H/O colonoscopy (2007) H/O colonoscopy (04/14/18) dr geller, sigmoid diverticulosis, repeat 10 years History of esophagogastroduodenoscopy (EGD) (09/2017) History of hydrocelectomy History of right inguinal hernia repair repair times two sugrical flap of unhealing wound Family History Mother No problems noted. Father No problems noted. Social History Smoking/Tobacco Use Status: Former Tobacco Use Quit Date: 03/06/20 Smoking risk assessment performed?: Yes Alcohol Intake: former Drug use: Never Substance use type: does not use Housing: apartment Current gender identity: male What type of physical activity do you participate in: none Do you feel safe at home: Yes Do you feel safe in your relationship?: Yes Exam Narrative Exam Narrative: Awake and alert, sitting up in bed. Weight appears to be stable (recorded weight is slightly decreased). Answers questions and follows simple directions. Occasional cough, currently not productive. No obvious dyspnea. O2 sat currently 96% on room air. Pulse about 100. Observed eating his platter of minced food; appears to swallow without difficulty without any coughing. Results Last Vital Signs Temp 36.1 C L 03/24/23 15:34 Pulse 68 03/24/23 15:34 Resp 19 03/24/23 15:34 BP 99/61 L 03/24/23 15:34 Pulse Ox 93 03/24/23 15:34 Labs 03/24/23 07:04 03/24/23 07:04 Labs: Laboratory Results - last 24 hr 03/23/23 03/23/23 03/23/23 21:47 22:15 22:45 WBC 11.28 H RBC 5.74 Hgb 17.4 Hct 55.1 H MCV 96 H MCH 30.3 MCHC 31.6 L RDW 14.7 H Plt Count 292 MPV 10.1 Immature Gran % 0.3 Neutrophils % 79.3 Lymphocytes % 10.5 Monocytes % 9.3 Eosinophils % 0.3 Basophils % 0.3 Nucleated RBC % 0.0 Absolute Neutrophils 8.95 H Absolute Lymphocytes 1.18 L Absolute Monocytes 1.05 H Absolute Eosinophils 0.03 Absolute Basophils 0.03 PT 11.3 H INR 1.1 APTT 29.5 VBG pH 7.34 VBG pCO2 46 VBG pO2 37 VBG HCO3 25 VBG Total CO2 22 L VBG O2 Saturation 61 VBG Base Excess -1 VBG Lactate 2.5 H* Sodium 144 Potassium 4.2 Chloride 105 Carbon Dioxide 26.7 Anion Gap 12.3 H BUN 34 H Creatinine 0.9 Est GFR (CKD-EPI 2020) 90.74 Glucose 95 Calcium 11.0 H Magnesium Total Bilirubin 1.1 H AST 26 ALT 17 Alkaline Phosphatase 146 H Troponin I < 50 NT-Pro-B Natriuret Pep 2968 H Total Protein 9.8 H Albumin 3.9 TSH 1.36 COVID-19 Source Nasopharynx SARS-CoV-2 (PCR) Negative Influenza Type A (PCR) Negative Influenza Type B (PCR) Negative RSV (PCR) Negative 03/24/23 07:04 WBC 14.06 H RBC 5.24 Hgb 15.8 Hct 49.3 MCV 94 MCH 30.2 MCHC 32.0 RDW 14.6 H Plt Count 245 MPV 9.7 Immature Gran % Neutrophils % Lymphocytes % Monocytes % Eosinophils % Basophils % Nucleated RBC % Absolute Neutrophils Absolute Lymphocytes Absolute Monocytes Absolute Eosinophils Absolute Basophils PT INR APTT VBG pH VBG pCO2 VBG pO2 VBG HCO3 VBG Total CO2 VBG O2 Saturation VBG Base Excess VBG Lactate Sodium 146 H Potassium 3.4 L Chloride 108 H Carbon Dioxide 22.4 Anion Gap 15.6 H BUN 37 H Creatinine 0.9 Est GFR (CKD-EPI 2020) 90.74 Glucose 97 Calcium 10.1 Magnesium 1.9 Total Bilirubin AST ALT Alkaline Phosphatase Troponin I NT-Pro-B Natriuret Pep Total Protein Albumin TSH COVID-19 Source SARS-CoV-2 (PCR) Influenza Type A (PCR) Influenza Type B (PCR) RSV (PCR)
--- NOTE | 2023-03-24 20:06 | TELEP.MEDR_ITS ---
Date of service: 03/24/23 Time of Service: 20:06 Telepharmacy Home Med Rec Allergies Allergies: No Known Allergies Allergy (Verified 01/25/23 21:14) Additional Notes Additional Notes: * Per [facility] staff, patient is not a reliable historian. Several attempts were made to contact his sister Nereyda and his friend Lyudmila- their phones did not accept/take messages. Unable to complete med rec Recommended Changes Attestation: The home medication list is now updated to the best of my knowledge and is ready to be reconciled by the provider. Please contact the TelePharmacy Medication Reconciliation Pharmacist at for any questions.
[2023-03-24] MEDS: guaiFENesin 200 MG/10 ML CUP PO (20:46)
[2023-03-24] MEDS: Normal Saline Flush 10 ML SYR IVP (23:43)
[2023-03-24] MEDS: Atorvastatin 10 MG TAB PO (23:43)
[2023-03-24] MEDS: Lactated Ringers 500 ML IV (23:44)
[2023-03-24] MEDS: Tamsulosin 0.4 MG CAPCR PO (23:54)
[2023-03-25] VITALS (31 sets, daily range): BP systolic 81–118; BP diastolic 56–92; PULSE 64–102; RESP 16–33; TEMP 35.9–37; O2SAT 90–99
--- NOTE | 2023-03-25 | DI.US_ITS ---
APPROVED REPORT EXAM: Comprehensive 2D, Doppler, and color-flow Echocardiogram Patient Location: In-Patient Room/Bed: [address] Contractor: Royer Corrigan RDCS (AE) Indications: hypotension Other Information Study Quality: Adequate. Technically limited study due to body habitus, inability to position patient . Conclusion Left ventricular chamber size is small. There is mild to moderate concentric left ventricular hypert rophy. Ejection fraction is greater than 65%. The LV is hyperdynamic Dilated right ventricle. There are findings of right ventricular chamber and pressure overload. Rig ht ventricle is mildly hypocontractile Left atrium is mildly enlarged. The right atrium is severely dilated Aortic valve is trileaflet and calcified without stenosis or regurgitation Mildly thickened mitral leaflets, trace mitral regurgitation Normal tricuspid valve with severe regurgitation. Estimated right ventricular systolic pressure is 4 6 mmHg Compared to an echocardiogram from July 2022, the degree of tricuspid regurgitation appears worse , though estimated right ventricular systolic pressure is a bit lower (previously 53) Wall motion Left Ventricle The left ventricle is small Left ventricular systolic function is hyperdynamic Mild to moderate tita ntric left ventricular hypertrophy. Diastolic septal flattening There is no ventricular septal defect visualized. LVEF is 65%. Right Ventricle The right ventricle is mildly dilated Right ventricular septal motion is consistent with volume overl oad. The RVSP is 45.5 mmHg. Atria Left atrium is mildly dilated. Right atrium is severely dilated. The interatrial septum is intact wit h no evidence for an atrial septal defect. Aortic Valve Aortic valve is calcified. Aortic valve is trileaflet. No hemodynamically significant valvular aortic stenosis. No aortic regurgitation is present. Mitral Valve Mitral valve leaflets are thickened. No evidence of mitral valve stenosis. Trace mitral regurgitation . Tricuspid Valve The tricuspid valve is normal in structure. There is no tricuspid valve stenosis. Severe tricuspid re gurgitation. Pulmonic Valve The pulmonary valve is normal in structure. There is no pulmonic valvular stenosis. Trace pulmonic re gurgitation. Great Vessels The aortic root is normal in size. Ascending aorta is not well visualized. Aortic arch is not well vi sualized. IVC is normal in size and collapses >50% with inspiration. Pericardium There is no pericardial effusion. 2D Dimensions IVSD d PLAX 1.48 cm M: 0.6-1.2 Ao Root d 3.12 cm M: 3.1 - 3.7 LVPW d PLAX 1.65 cm M: 0.6 - 1.2 LVID d PLAX 2.73 cm M: 4.2 - 5.8 LVDs 2.05 cm M: 2.5 - 4.0 LV EF Teichholz 51.2 % FS 24.91 % LV EDV (Teich) 27.7 mL LV ESV (Teich) 13.5 mL Stroke Vol Index (Teich) 9.71 Auto EF LV EDV A4C 60.3 mL LV EDV A2C LV EDV BP LV ESV A4C 29.5 mL LV ESV A2C LV ESV BP LVEF(%) A4C 51.0 % LVEF(%) A2C LVEF(%) BP LV SV A4C 30.8 ml LV SV A2C LV SV BP LV CO A4C 2.4 L/min LV CO A2C LV CO BP HR A4C 77.09 BPM HR A2C LV EDV Index (BP) LA Volume LA Length A4C 7.0 cm LA Length A2C LA Area A4C s 21.37 cm2 LA Area A2C s LA Vol A4C A-L 55.25 mL LA Vol A2C A-L LA Vol Biplane A-L LA Vol A4C MOD 50.7 mL LA Vol A2C MOD LA Vol BP MOD RA Volume RA Area A4C 36.9 cm2 RA ESV A4C (A-L) 170.5mL RA Vol/BSA A4C A-L RA Length A4C 6.8 cm RA ESV A4C (MOD) 162.9mL LV Diastology MV E' medial 0.058 (>0.07 m/s) MV E' lateral 0.106 (>0.1 m/s) Aortic Valve AoV Vmax 2.60 m/s LVOT Vmax 0.70 m/s AoV Peak Grad 26.9 mmHg LVOT Peak Grad 2.0 mmHg AoV Area (Vmax) 0.65 cm2 LVOT VTI 0.116 m AoV VTI 0.639 m LVOT Mean Grad 0.9 mmHg AoV Mean Enoc. 1.72 m/s LVOT SV 27.71 mL AoV Mean Grad 13.7 mmHg LVOT Diam s 1.70 cm AoV Area (VTI) 0.43 cm2 Velocity Ratio 0.27 Pulmonary Valve PV Vmax 0.72 (0.5-1.5 m/s) RVOT Vmax 0.46 m/s PV Peak Grad 2.1 mmHg RVOT Peak Gr. 0.9 mmHg PV Mean Enoc 0.57 m/s RVOT VTI 0.072 m PV Mean Grad 1.4 mmHg RVOT Mean Gr. 0.4 mmHg Tricuspid Valve RA Pressure 3.00 mmHg TR Vmax 3.26 m/s TR Peak Grad 42.4 mmHg RVSP (TR) 45.5 mmHg
--- NOTE | 2023-03-25 | DI.RAD_ITS ---
Exam(s) XR PORTABLE CHEST AP EXAM: XR PORTABLE CHEST AP CLINICAL HISTORY: shortness of breath. TECHNIQUE: 2D digital imaging was performed. COMPARISON: CR XR CHEST 2V PA LATERAL from 01/25/[address] CHEST W from 03/23/2023 FINDINGS: Single AP portable view. Sternotomy wires again noted. Cardiomegaly again noted. Mediastinum unchanged. COPD emphysematous changes again noted. Persistent infiltrates in lung bases again noted, more the l eft side. There are no obvious pleural effusions. Healed left 7th rib fracture again noted. IMPRESSION: Lower lung field infiltrates again noted, more so on the left side. No obvious pleural effusions. DATA REPOSITORY: RADIATION DOSE DELIVERED:
[2023-03-25] MEDS: AMPICILLIN/SULBACTAM 3 GM in Normal Saline 100 ML IVPB ×3 (00:20→17:27)
[2023-03-25] MEDS: Lactated Ringers 500 ML IV (02:34)
[2023-03-25] MEDS: Normal Saline Flush 10 ML SYR IVP ×2 (07:29→17:28)
[2023-03-25] MEDS: Enoxaparin 40 MG/0.4 ML SYR SC (07:29)
[2023-03-25] MEDS: Pantoprazole 40 MG TABCR PO (07:30)
[2023-03-25] MEDS: Polyethylene Glycol 3350 17 GM PACKET PO (08:22)
[2023-03-25] MEDS: Lactated Ringers 1,000 ML 75 ML IV (08:22)
[2023-03-25] MEDS: Tiotropium/Olodaterol 10 PUFF INHALER 2 PUFF IH (08:36)
--- NOTE | 2023-03-25 10:18 | W.PM.PROGNOT ---
Date of Service Date of service: 03/25/23 Time of Service: 10:18 Subjective Subjective Patient reports: no new complaints and afebrile Objective Last Vital Signs Temp 35.9 C L 03/25/23 07:22 Pulse 64 03/25/23 07:22 Resp 16 03/25/23 07:22 BP 92/60 L 03/25/23 07:22 Pulse Ox 95 03/25/23 08:42
--- NOTE | 2023-03-25 11:39 | CMPROGNOTE_ITS ---
Date of service: 03/25/23 Time of Service: 11:39 Care Management Progress Note Progress Note Text Progress Note Text: S/O: Ilia was sitting up in bed when CM met with him. He stated that he is doing ok today. CM discussed discharge plans with Ilia, including the option of returning home with a resumption of HH services vs returning to SNF, if accepted. Ilia agreed to CM sending a new referral to [facility]; later this afternoon, [facility] declined Ilia for admission. CM will review with Ilia other SNF options, and send referral, if applicable. Ilia was transferred to the ICU this afternoon for closer monitoring after he was found to be in Afib. CM will continue to follow. A: Nain is a 72 year old male admitted to [facility] on 03/24/23 for sepsis aspiration pna. P: Anticipate Ilia will return home with a resumption of HH RN, PT vs SNF. He recently returned home from SNF; CM will discuss the option of Ilia returning to SNF if indicated. He will transport via w/c van. He will follow up with his PCP and discharge plan of care. CM will continue to follow.
--- NOTE | 2023-03-25 12:30 | RT.EKG_ITS ---
APPROVED REPORT Exam: Resting ECG Reason for Exam: hypotension, afib Patient Location: I HR:99 bpm ECG Measurements Heart Rate 99 AXIS AZ [id number] P [id number] QRSd 91 QRS 81 QT 366 T -4 QTc 470 Conclusion Atrial fibrillation...V-rate 68-115, irreg A-activity Probable anteroseptal infarct, Q, ST>0.15mV, T neg, V1-V2 Low voltage Right axis deviation
--- NOTE | 2023-03-25 12:38 | SPP_ITS ---
Date of service: 03/25/23 Time of Service: 12:38 Subjective ACCESS DEVELOPER Swallowing Treatment 72 yo male with history of esophageal CA s/p sphincterectomy and esophagectomy (date unknown), history of pulmonary fibrosis, and history of recurrent aspiration pneumonia. He was admitted 03/24 with pna, sepsis, acute respiratory failure. Of notice, he has been admitted to the hospital for pulmonary complications, primarily pneumonia, at least 6+ times this calendar year. Last MBS completed was during admission in November 2022. During that study he had once incident of prandial aspiration, though it was spontaneously ejected. There was stasis of the barium tablet in the mid-esophagus, not resolved with liquid wash and requiring puree chaser to push into stomach. He was recommended L5 Minced/Moist, Thin liquids, and strict aspiration precautions (see report for further information). Subjective: Ilia was contacted in his room during lunchtime meal. He declined all solid trials except pureed mashed potatoes. Per LITHOGRAPHIC PLATEMAKER who is present, he did not eat his breakfast (slept through). No incidents concerning for aspiration reported since yesterday. Objective/Assessment/Plan Objective Treatment Techniques & Outcomes: Silver Recovery Operator Goals: Patient will remain free from aspiration-related illness, malnutrition, and dehydration. Short Term Goals: Patient will tolerate L5 Minced Moist Diet and Thin liquids without overt s/s aspiration across 2/2 visits. PO Trials Assessed: IDDSI 0 Thin Liquids x3 sips (pt declines further trials thereafter) IDDSI 4 Puree Solid (mashed potatoes) Patient declines trials of more complex solids (turkey) Oral Phase Findings: Difficulty with bolus manipulation Difficulty with a-p transport (delayed) Pharyngeal Phase Findings: Delayed swallow initiation Reduced hyolaryngeal elevation/excursion No s/sx aspiration, no change in vocal quality. Assessment Patient continues to demonstrate mild chronic oral-pharyngeal dysphagia with very strong likelihood of esophageal component given medical hx and results noted on prior MBSS. While in upright positioning, he was able to tolerate limited trials of thin liquids and puree solids without overt s/s aspiration this date, but additional solids were declined. Would benefit from continued ACCESS DEVELOPER f/u to monitor for tolerance across a larger, more complex meal. P Anticipate esophageal dysfunction may contribute the etiology of aspiration events. Thus, further work up may be indicated in areas of esophageal functioning - recommend EGD/Barium swallow/GI referral. GI history remains unclear per records and patient is a poor historian at this time. Medical records indicate hx of esophagectomy and sphincterectomy - dates unknown. Further ACCESS DEVELOPER Services indicated. Patient to be followed while on unit Recommendation at Discharge: ACCESS DEVELOPER Services likely indicated at next level of care- to be determined Suggested Referrals: Gastroenterology Recommended Procedures: consider EGD/barium swallow Plan Plan: Frequency: 2-3x/week for 1-2 weeks Recommendations Recommendations: DIET: ? SOLIDS: 5-Minced & Moist Solids LIQUIDS: 0-Thin Liquids MEDICATIONS: Whole in L4 puree (applesauce, pudding, ice cream) RISK MANAGEMENT: HOB bolt upright as tolerated; upright for all PO intake. REMAIN UPRIGHT FOR AT LEAST 60 MIN AFTER MEALS Encourage physical mobility as tolerated. Oral hygiene q4h/every 4 hours, before/after PO intake using friction with toothbrush on all oral structures as tolerated Level of Assistance/Supervision: Distant supervision for all PO intake (25% of meal) PO intake only when awake/alert? Strategies/Adaptations/Assistive Equipment: Small sips and bites when eating, Slow rate of intake, Swallow between bites Posture/Positioning Needs: Maintain upright position at least 60 minutes after meals, Avoid meals/snacks 2- 3 hours prior to reclining/sleeping, Sleep with head of bed elevated to reduce likelihood of nocturnal reflux Total Time Spent: 15 min Coding CPT Codes ORAL FUNCTION THERAPY - 69802 ([id number]) Additional Codes Date of Service (53919) Date of service: 03/25/23
[2023-03-25 13:09] LABS: Abs Immature Grans 0.07 10^3/uL (0.0-0.06); Absolute Basophil Count 0.02 10^3/uL (0.0-0.2); Absolute Eosinophil Count 0.19 10^3/uL (0.0-0.7); Absolute Monocyte Count 0.78 10^3/uL (0.1-0.8); Absolute Neutrophil Count 5.88 10^3/uL (1.2-6.7); Basophils % 0.2; Eosinophils % 2.4; HGB 13.7 g/dL (13.5-17.5); Immature Grans % 0.9; Lymphocytes % 13.7; MCH 30.4 pg (27.0-33.0); MCHC 32.6 % (32.0-36.0); MCV 93 fL (80-95); Monocytes % 9.7; Neutrophils % 73.1; Platelet Count 220 10^3/uL (130-400); RBC 4.51 10^6/uL (4.36-5.78); RDW 14.3 % (11.8-14.1); RDW-SD 49.5 fL; WBC 8.04 10^3/uL (4.4-10.8)
[2023-03-25 13:19] LABS: Lactate 2.4 mmol/L (0.6-1.4)
[2023-03-25 13:40] LABS: ALT 9 U/L (16-63); AST 18 U/L (15-37); Albumin 2.4 g/dL (3.4-5.0); Alkaline Phosphatase 97 U/L (46-116); Anion Gap 9.3 mmol/L (3-11); BUN 49 mg/dL (7-18); Bilirubin, Total 0.6 mg/dL (0.2-1.0); CO2 24.7 mmol/L (21.0-32.0); CREATININE 1.3 mg/dL (0.70-1.30); Chloride 104 mmol/L (98-107); Estimated GFR 58.37 (mL/min/1.73m2); Glucose 183 mg/dL (74-106); NT-proBNP 3619 pg/mL (<300); Potassium 3.3 mmol/L (3.5-5.1); Sodium 138 mmol/L (136-145); Total Protein 6.5 g/dL (6.4-8.2); Troponin I < 50 ng/L (<or=60)
[2023-03-25] MEDS: Acetaminophen 500 MG TAB 1000 MG PO (16:04)
[2023-03-25] MEDS: Gabapentin 300 MG CAP PO ×2 (16:04→19:51)
[2023-03-25] MEDS: Furosemide 20 MG/2 ML VIAL 10 MG IVP (16:05)
[2023-03-25 17:07] LABS: Bilirubin Negative (Negative); Blood Trace-intact (Negative); Clarity Cloudy (Clear); Glucose Negative (Negative); Ketones Negative (Negative); Leukocyte Esterase Moderate (Negative); Nitrite Negative (Negative); Specific Gravity 1.015 (1.005-1.025); Urobilinogen 0.2 mg/dL (Up to 0.2); pH 5.5 (5-8)
--- NOTE | 2023-03-25 17:18 | W.PM.PROGNOT ---
Date of Service Date of service: 03/25/23 Time of Service: 17:18 Assessment and Plan Assessment and plan (1) Sepsis: Status: Acute Assessment and plan: due to aspiration pneumonia, present on admission. Interestingly, blood cultures were never done. Continue unasyn. Obtain blood cultures. Trend lactates. Improving. Today's hypotension I do not necessarily think is due to septic shock and more cardiogenic, but we are going to continue monitoring closely in the ICU with the possibility of expanding antibiotics. Continued modified diet as recommended by speech: minced/moist/thin. Qualifiers: Acute respiratory failure type: with hypoxia Sepsis acute organ dysfunction status: with acute organ dysfunction Sepsis type: sepsis due to unspecified organism Severe sepsis acute organ dysfunction type: acute respiratory failure Severe sepsis shock status: without septic shock Qualified Code(s): A41.9 - Sepsis, unspecified organism; R65.20 - Severe sepsis without septic shock; J96.01 - Acute respiratory failure with hypoxia (2) Acute respiratory failure with hypoxia: Status: Acute Assessment and plan: multifactorial, due to aspiration PNA and underlying CPFE in addition to acute on chronic R-sided CHF. IVF d/c'ed. Received a small dose of furosemide. Wean O2 as tolerated. Encourage IS/Acapella. Modified diet. (3) Cardiogenic shock: Status: Acute Assessment and plan: With evidence of cor pulmonale/RV fluid overload. I do not think he had an acute PE - he had a negative CTA on admission. But RV failure can make BPs worse and so IVF were d/c'ed and we are trialing diuretics. 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 Will add steroids. (8) CAD (coronary artery disease): Status: Chronic Assessment and plan: Continue asa, statin, and beta sony Qualifiers: Associated angina: without angina Coronary Disease-Associated Artery/Lesion type: unspecified vessel or lesion type [place] vs. transplanted heart: [place] heart Qualified Code(s): I25.10 - Atherosclerotic heart disease of [place] coronary artery without angina pectoris (9) DVT prophylaxis: Status: Resolved Assessment and plan: Sc [place] (10) Discharge planning issues: Status: Acute Assessment and plan: DNR/DNI Transferred to the ICU. Total Critical Care Time 45 minutes. Subjective Subjective Interval history since last seen: The patient was transferred to the ICU Due to persistent and worsening hypotension despite IVF. He was asymptomatic of this - no dizziness, CP, SOB, n/v. His BPs got better after IVF were discontinued. Exam Narrative Exam Narrative: General: Cachectic elderly male who is A&Ox2, eating lunch, on 2L of O2, no dyspnea/tachypnea/cyanosis HEENT: EOMI, MMM Heart: irregularly irregular rhythm Lungs: Rales B Abdomen: soft, nontender, nondistended Extremities: no edema BLEs Objective Last Vital Signs Temp 36.9 C 03/25/23 14:50 Pulse 84 03/25/23 16:11 Resp 17 03/25/23 16:11 BP 96/64 L 03/25/23 16:11 Pulse Ox 95 03/25/23 16:11 Laboratory Results - last 24 hr 03/25/23 03/25/23 03/25/23 13:00 13:00 16:45 WBC 8.04 RBC 4.51 Hgb 13.7 D Hct 42.0 MCV 93 MCH 30.4 MCHC 32.6 RDW 14.3 H Plt Count 220 MPV 10.0 Immature Gran % 0.9 Neutrophils % 73.1 Lymphocytes % 13.7 Monocytes % 9.7 Eosinophils % 2.4 Basophils % 0.2 Nucleated RBC % 0.0 Absolute Neutrophils 5.88 Absolute Lymphocytes 1.10 L Absolute Monocytes 0.78 Absolute Eosinophils 0.19 Absolute Basophils 0.02 VBG Lactate 2.4 H* Sodium 138 Potassium 3.3 L Chloride 104 Carbon Dioxide 24.7 Anion Gap 9.3 BUN 49 H Creatinine 1.3 Est GFR (CKD-EPI 2020) 58.37 Glucose 183 H Calcium 9.0 Total Bilirubin 0.6 AST 18 ALT 9 L Alkaline Phosphatase 97 Troponin I < 50 Cancelled NT-Pro-B Natriuret Pep 3619 H Total Protein 6.5 Albumin 2.4 L Urine Color Yellow Urine Clarity Cloudy Urine pH 5.5 Ur Specific [place] 1.015 Urine Protein Trace H Urine Ketones Negative Urine Blood Trace-intact H Urine Nitrite Negative Urine Bilirubin Negative Urine Urobilinogen 0.2 Ur Leukocyte Esterase Moderate H Urine Glucose Negative Objective Narrative Objective Narrative: Echo: Left ventricular chamber size is small. There is mild to moderate concentric left ventricular hypertrophy. Ejection fraction is greater than 65%. The LV is hyperdynamic Dilated right ventricle. There are findings of right ventricular chamber and pressure overload. Right ventricle is mildly hypocontractile Left atrium is mildly enlarged. The right atrium is severely dilated Aortic valve is trileaflet and calcified without stenosis or regurgitation Mildly thickened mitral leaflets, trace mitral regurgitation Normal tricuspid valve with severe regurgitation. Estimated right ventricular systolic pressure is 46 mmHg Compared to an echocardiogram from July 2022, the degree of tricuspid regurgitation appears worse, though estimated right ventricular systolic pressure is a bit lower (previously 53) Time Spent with Patient Time Spent with Patient: 35-49 minutes Time was spent: preparing to see the patient(eg.review tests), obtaining and/or reviewing separately otained hiistory, ordering medications,tests, procedures, referring, communicating with other health director of healthcare systems, indepentently interpreting results, counseling the patient and care coordination
[2023-03-25 17:35] LABS: Bacteria Rare HPF (Negative); C & S Indicated? Yes; Crystals Negative HPF (Negative); Epithelial Cells Few HPF (Negative); Mucus Trace (Negative); Other Cells Moderate Yeast (Negative); RBC 0-2 HPF (0-2); WBC >50 HPF (0-5)
[2023-03-25 17:50] LABS: Lab Add On Test DONE
[2023-03-25 17:59] LABS: Magnesium 1.9 mg/dL (1.8-2.4)
[2023-03-25] MEDS: predniSONE 20 MG TAB 40 MG PO (18:05)
[2023-03-25] MEDS: Potassium Chloride 20 MEQ TABCR 40 MEQ PO (18:06)
[2023-03-25] MEDS: DOXYCYCLINE 100 MG in Normal Saline 100 ML IVPB (19:50)
[2023-03-25] MEDS: Mirtazapine 15 MG TAB 7.5 MG PO (22:14)
[2023-03-25] MEDS: Ferrous Gluconate 324 MG TAB PO (22:14)
[2023-03-25] MEDS: Atorvastatin 10 MG TAB PO (22:14)
[2023-03-25] MEDS: Senna TAB 1 TAB PO (22:14)
[2023-03-26] VITALS (35 sets, daily range): BP systolic 97–123; BP diastolic 60–92; PULSE 72–112; RESP 16–27; TEMP 36.2–37.1; O2SAT 85–96
[2023-03-26] MEDS: AMPICILLIN/SULBACTAM 3 GM in Normal Saline 100 ML IVPB ×3 (00:07→15:53)
[2023-03-26] MEDS: Normal Saline Flush 10 ML SYR IVP ×2 (00:07→22:30)
[2023-03-26] MEDS: DOXYCYCLINE 100 MG in Normal Saline 100 ML IVPB ×2 (05:31→17:34)
[2023-03-26 05:48] LABS: Abs Immature Grans 0.07 10^3/uL (0.0-0.06); Absolute Basophil Count 0.02 10^3/uL (0.0-0.2); Absolute Eosinophil Count 0.01 10^3/uL (0.0-0.7); Absolute Lymphocyte Count 0.58 10^3/uL (1.2-3.4); Absolute Monocyte Count 0.34 10^3/uL (0.1-0.8); Absolute Neutrophil Count 6.54 10^3/uL (1.2-6.7); Basophils % 0.3; Eosinophils % 0.1; HCT 38.3 % (40.0-50.0); HGB 12.7 g/dL (13.5-17.5); Immature Grans % 0.9; Lymphocytes % 7.7; MCH 30.9 pg (27.0-33.0); MCHC 33.2 % (32.0-36.0); MCV 93 fL (80-95); MPV 10.1 fL (8.0-11.0); Monocytes % 4.5; Neutrophils % 86.5; Platelet Count 208 10^3/uL (130-400); RBC 4.11 10^6/uL (4.36-5.78); RDW 14.3 % (11.8-14.1); WBC 7.56 10^3/uL (4.4-10.8)
[2023-03-26 06:08] LABS: Anion Gap 7.3 mmol/L (3-11); BUN 47 mg/dL (7-18); CO2 25.7 mmol/L (21.0-32.0); CREATININE 1.1 mg/dL (0.70-1.30); Calcium 8.8 mg/dL (8.5-10.1); Chloride 105 mmol/L (98-107); Estimated GFR 71.32 (mL/min/1.73m2); Glucose 165 mg/dL (74-106); Magnesium 1.9 mg/dL (1.8-2.4); Potassium 3.9 mmol/L (3.5-5.1); Sodium 138 mmol/L (136-145)
[2023-03-26 06:44] LABS: Procalcitonin 0.2 ng/mL
[2023-03-26 08:02] LABS: Lactate 1.2 mmol/L (0.6-1.4)
[2023-03-26] MEDS: Polyethylene Glycol 3350 17 GM PACKET PO (08:04)
[2023-03-26] MEDS: Acetaminophen 500 MG TAB 1000 MG PO ×2 (08:04→15:06)
[2023-03-26] MEDS: predniSONE 20 MG TAB 40 MG PO (08:06)
[2023-03-26] MEDS: Gabapentin 300 MG CAP PO ×2 (08:07→15:06)
[2023-03-26] MEDS: Aspirin 81 MG CHEW 162 MG PO (08:08)
[2023-03-26] MEDS: Enoxaparin 40 MG/0.4 ML SYR SC (08:15)
[2023-03-26] MEDS: Pantoprazole 40 MG TABCR PO (08:18)
[2023-03-26] MEDS: Tiotropium/Olodaterol 10 PUFF INHALER 2 PUFF IH (08:19)
[2023-03-26] MEDS: Cholecalciferol (Vitamin D3) 1,000 UNIT TAB 2000 UNITS PO (08:19)
[2023-03-26] MEDS: Multivitamin w/Minerals TAB 1 TAB PO (08:26)
[2023-03-26] MEDS: Ascorbic Acid 500 MG TAB PO (08:26)
--- NOTE | 2023-03-26 08:43 | IN_ITS ---
PT Notes Visit Reasons: Sepsis aspiration PNA Inpatient Physical Therapy Evaluation Date: March 26, 2023 Referring Doctor: Kassandra Esparza STAGE SET UP WORKER PT Orders: PT CONSULT: Non-Urgent Precautions: Standard, fall risk, limited ability, activities as tolerated Patient Profile/Admitting Diagnosis: 72-year-old male past history of pulmonary fibrosis with emphysema, CAD s/p CABG, CHF, a-fib, and multiple recent hospitalization for recurrent PNA who presents to the ED with complaints of an elevated HR. He is followed by [facility] Pulmonology as well as Palliative Care. Admitted 03/23/23. Patient has a history of pulmonary disease (COPD, pulmonary fibrosis), intermittent urinary retention, atrial fibrillation(on DOAC), coronary artery disease, history of EtOH (in remission for over a year, confirmed again today), chronically underweight (for years, decades), ambulatory challenges of unclear etiology, reported distant history of gastric malignancy (in remission), history of pneumonia with sepsis.? Also had repair of left hip fracture end of August 2022 Patient has been followed both inpatient and outpatient by the palliative care team for supportive care and advance care planning over the past year.? He has had multiple hospital admissions, most with subsequent subacute rehab stays. He has spent minimal time back in his apartment in between these admissions since last . His most recent hospital admission was 01/25? to [facility] for episode of pneumonia. He required oxygen while in the hospital. Treated with antibiotics and steroids and slowly responded. Was noted to have bradycardia so his digoxin was discontinued and his metoprolol dosing was decreased. On January 31 he was transferred to [facility] for subacute rehab. PMHX: All Active Problems?(Updated 01/26/23 @ 08:24 by Emile Espinal) Pneumonia (Acute) Hypoxemia (Acute) Borderline hyperglycemia (Acute) Pneumonia (Acute) Recurrent aspiration pneumonia (Acute) COPD exacerbation (Acute) Pneumonia (Acute) COPD exacerbation (Acute) Shortness of breath (Acute) Lung mass (Acute) Elevated troponin (Acute) Hypotension (Acute) DNR (do not resuscitate) (Acute) DNR, but would like trial of intubation. See 09/26 NoteAcute bronchitis (Acute) Left foot pain (Acute) Palliative care patient (Acute) Underweight (Acute) Diastolic heart failure (Chronic) Closed intertrochanteric fracture of left femur (Acute) s/p IMN fixation (08/28/22)Fall (Acute) Blunt head trauma (Acute) Contusion of elbow, left (Acute) Contusion of left leg (Acute) Closed fracture of left hip (Acute) Mild cognitive impairment (Acute) Advanced care planning/counseling discussion (Acute) Literacy level of illiterate (Acute) Palliative care encounter (Acute) Acute on chronic right-sided congestive heart failure (Chronic) Pneumonia (Acute) Hypoxia (Acute) Depression (Chronic) Dental abscess (Acute) 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 Abdominal pain Abnormal radiologic findings on diagnostic imaging of renal pelvis, ureter, or bladder Acute on chronic anemia Acute on chronic diastolic (congestive) heart failure Acute on chronic systolic CHF (congestive heart failure) Adenocarcinoma of esophagus From [facility]:Hx GI Cancer...EGD 04/2021 with friable mucosa. SDOne at that time because of GI blooedAfib Alcohol abuse Alcohol abuse, continuous drinking behavior Anemia Aspiration pneumonia Bilateral lower extremity edema CAD (coronary artery disease) of artery bypass graft Cerumen impaction CHF, acute on chronic Closed intertrochanteric fracture Confusion state COVID-19 Diabetes mellitus Difficulty reading Edema Encounter for colorectal cancer screening Epididymitis, right (08/02/16) Essential hypertension Failure to thrive Fall GERD (gastroesophageal reflux disease) GI bleed GI bleeding H/O malignant neoplasm of stomach Heart failure, left, with LVEF 41-49% History of fracture of left hip S/P IM NAIL DOS: 08/28/22History of GI bleed Hoarseness Hydrocele, right (01/23/16) Hyperlipidemia Hypophosphatemia Kyphoscoliosis Low back pain Malnutrition Mild bibasilar atelectasis Pancreatitis Poor hygiene Prediabetes Protein malnutrition Pulmonary hypertension Recent weight loss Rib fractures Shortness of breath Solitary pulmonary nodule Tinnitus, left Tobacco abuse Weight loss Surgical History? cardiac cath Coronary Artery Bypass Gaft (CABG) EGD - IV Sedation Esophagectomy H/O colonoscopy (2007) H/O colonoscopy (04/14/18) dr geller, sigmoid diverticulosis, repeat 10 years History of esophagogastroduodenoscopy (EGD) (09/2017) History of hydrocelectomy History of right inguinal hernia repair repair times two sugrical flap of unhealing wound Social History/Home Situation:? Lives in an apartment.? Friend Lyudmila who lives in the apartment across from him helps out with?grocery shopping.? Able to heat up meals on wheels.? States that he walks with FWW indoors.? Has 5 steps to enter the apartment building with a rail on one side. Equipment Owned/DME: FWW x 2 Subjective:? Initially refused Pt eval this morning but was agreeable with the second attempt. Denied pain, lightheadedness, and headache throughout. Agreeable to doing short-term rehab priorto going home so he can regain strength and independent mobility level. Wanted a drink of milk. Objective:? General Observation: Pleasant and cooperative, frail-appearing. Mental Status: A&Ox2 Pain: None reported ROM: Right Upper Extremity: ? Shoulder Flexion WFL. Shoulder abduction WFL. Elbow flexion WFL. Wrist flexion WFL. Functional opening and closing of hand WFL. Left Upper Extremity:? Shoulder Flexion WFL. Shoulder abduction WFL. Elbow fl exion WFL. Wrist flexion WFL. Functional opening and closing of hand WFL. Right Lower Extremity: Hip flexion WFL. Hip abduction WFL. Knee flexion WFL. Ankle dorsiflexion WFL. Ankle plantarflexion WFL. Left Lower Extremity: Hip flexion WFL. Hip abduction WFL. Knee flexion WFL. Ankle dorsiflexion WFL. Ankle plantarflexion WFL. Strength: Right Upper Extremity: Shoulder flexors 3/5. Shoulder abductors 3/5. Elbow flexors 4/5. Elbow extensors 4/5. Nut Sheller Machine Operator strong. Left Upper Extremity: Shoulder flexors 3/5. Shoulder abductors 3/5. Elbow flexors 4/5. Elbow extensors 4/5. Nut Sheller Machine Operator strong. Right Lower Extremity: Hip flexors 4-/5.? Hip flexors left 4-/5. Hip abductors 4-/5. Knee flexors 4-/5. Knee extensors 4-/5. Ankle dorsiflexors 4-/5. Ankle plantarflexors 4/5. Left Lower Extremity: Hip flexors 4-/5.? Hip flexors left 4-/5. Hip abductors 4- /5. Knee flexors 4-/5. Knee extensors 4-/5. Ankle dorsiflexors 4-/5. Ankle plantarflexors 4/5. Bed Mobility/Transfers: Supine to sit: minimal assist Sit-stand: minimal assist with FWW, cues provided for hand placement and movement sequence Stand-sit: minimal assist with FWW, cues provided for hand placement and movement sequence Gait:? 40 feet + 40 feet with minimal assist,? using FWW with wheelchair follow.? Glenys slowed.? VS WNL right after short distance ambulation. Did report fatigue and rested for about 5 minutes on wheelchair prior to walking back to room. Thoracic kyphosis. Balance:? Static Sitting: Normal Dynamic Sitting: Good Static Standing: Fair Dynamic Standing: Fair Special Tests: Mobility Limitations Standardized Measure [facility] 6 clicks Basic Mobility Inpatient Short Form: Raw Score: 18? CMS Score: 47% deficit 4-Stage Balance test: Unable to maintain all 4 positions for 10 seconds indincating a high fall risk. Informed Consent/Education:? Patient instructed in purpose of PT consult and plan of care. Agreeable to PT POC to address functional deficits below. Facilitated safe positioning on bedside recliner to reduce fall risk. Assessment:?? Patient presents with functional mobility decline, generalized weakness, and dependence in ADLs requiring short-term rehab placement prior to D/C to home. Patient presents with clinical signs and symptoms consistent with current/admitting diagnoses that have resulted to mobility limitations, gait instability, generalized weakness, and overall ADL decline as demonstrated by the following impairment level findings: 1.? Decreased strength to B UE/LE major muscle groups 2.? Impaired sitting/standing balance 3.? Impaired activity tolerance Impairments are contributing to the following functional limitations: 1.? Decline in bed mobility skills 2.? Decline in transfer skills 3.? Difficulty with ambulation without assistive device and physical assistance 4.? Increased completion time for mobility ADL performance 5.? Increased risk for falls 6.? Difficulty with managing steps alone safely Patient is assessed as a 44659 moderate complexity based on the following: History: 72-year-old female with past medical history as indicated above Examination: Demonstrable impairment in strength, balance, and mobility level with underlying impairments and functional limitations as exhibited above as well as deficit score of 47% utilizing the [facility] Mobility Inpatient Short Form Presentation: Evolving Decision Makin moderate complexity Goals: Goals X1 week 1. Supine-Sit independent 2. Sit-Supine independent 3. Sit-Stand independent with FWW 4. Stand-Sit independent with FWW 5. Bed-Chair independent with FWW 6. Chair-Bed independent with FWW 7. Independent gait on level surface with use of FWW for at least 200 feet without report of pain nor dyspnea 8. Independent stair negotiation while holding onto bilateral rails for at least 5 steps without report of pain nor dyspnea 9. Independent with home exercise program 10. Good static and dynamic standing balance/tolerance Plan of Care/Treatment Plan: 1-2x/day, 7 days/week x 1 week. Plan of care has been reviewed with the DIRECTOR COMPENSATION providing the service under Physical Therapy direction. Initiate Physical Therapy intervention for strengthening, bed mobility, transfers, gait, stairs, balance training, use of assistive device. DISCHARGE RECOMMENDATIONS: Patient will benefit from [facility] facility placement for continued skilled physical therapy services in order to progress mobility level, strength, and balance in preparation for a safe discharge to home. Social History/Home Situation: [] Current Functional Limitations: [] Equipment Owned/DME: [] Subjective: [] Objective: [] General Observation: [] Mental Status: [] Pain: [] Vital Signs: [] ROM: Right Upper Extremity: [] Left Upper Extremity: [] Right Lower Extremity: [] Left Lower Extremity: [] Strength: Right Upper Extremity: [] Left Upper Extremity: [] Right Lower Extremity: [] Left Lower Extremity: [] Sensation: [] Bed Mobility/Transfers: [] Gait: [] Balance: [] Static Sitting: [] Dynamic Sitting: [] Static Standing: [] Dynamic Standing: [] Special Tests: Mobility Limitations Standardized Measure [facility] AM-PAC 6 clicks Basic Mobility Inpatient Short Form: Raw Score: [] Standardized Score: [] CMS Score: [] Informed Consent/Education: Patient instructed in purpose of PT consult and plan of care. Assessment: Patient is a [] year old [] referred to physical therapy services with the diagnosis of []. Patient presents with clinical signs and symptoms consistent with [], as demonstrated by the following impairment level findings: []. Impairments are contributing to the following functional limitations: AMPAC score. Patient is assessed as a [] Low 37103 [] Moderate 15964 [] High 16442 complexity based on the following: History: [] Examination: [] Presentation: [] Decision Making: [] Goals: Goals X1 week 1. Supine-Sit [] 2. Sit-Supine [] 3. Sit-Stand [] 4. Stand-Sit [] 5. Bed-Chair [] 6. Chair-Bed [] 7. Gait [] 8. Stairs [] 9. Independent with home exercise program [] 10. Balance [] Plan of Care/Treatment Plan: 1-2x/day, 7 days/week x 1 week. Plan of care has been reviewed with the DIRECTOR COMPENSATION providing the service under Physical Therapy direction. Initiate Physical Therapy intervention for strengthening, bed mobility, transfers, gait, stairs, balance training, use of assistive device. DISCHARGE RECOMMENDATIONS: [] [] Home with no services [] [] Home with services [specify] [] Home with outpatient PT [] [] SNF for continued rehabilitation [] [] Shelter Care [] [] SNF versus LTC based on ability to participate and progress [] TREATMENT CODE/TIME: []
--- NOTE | 2023-03-26 10:22 | PT.INNT ---
PT Notes Visit Reasons: Sepsis aspiration PNA Patient adamantly refused PT consult. Nursing notified. Will look to evaluate 03/27/23.
--- NOTE | 2023-03-26 10:24 | PT.INNT ---
PT Notes Visit Reasons: Sepsis aspiration PNA Patient adamantly refuses physical therapy evaluation. Nursing notified. We will look to evaluate tomorrow 03/27/2023.
[2023-03-26] MEDS: Ferrous Gluconate 324 MG TAB PO ×2 (10:31→22:29)
[2023-03-26] MEDS: Furosemide 20 MG/2 ML VIAL 10 MG IVP (11:27)
--- NOTE | 2023-03-26 12:10 | W.PM.PROGNOT ---
Date of Service Date of service: 03/26/23 Time of Service: 12:12 Assessment and Plan Assessment and plan (1) Sepsis: Status: Acute Assessment and plan: due to aspiration pneumonia, present on admission. Blood cultures pending. Continue unasyn. Doxycycline ordered yesterday BPs better. Transferred out of the ICU. Improving. Qualifiers: Acute respiratory failure type: with hypoxia Sepsis acute organ dysfunction status: with acute organ dysfunction Sepsis type: sepsis due to unspecified organism Severe sepsis acute organ dysfunction type: acute respiratory failure Severe sepsis shock status: without septic shock Qualified Code(s): A41.9 - Sepsis, unspecified organism; R65.20 - Severe sepsis without septic shock; J96.01 - Acute respiratory failure with hypoxia (2) Acute respiratory failure with hypoxia: Status: Acute Assessment and plan: multifactorial, due to aspiration PNA and underlying CPFE in addition to acute on chronic R-sided CHF. I added steroids. Repeating furosemide today. Wean O2 as tolerated. Encourage IS/Acapella. Modified diet. (3) Cardiogenic shock: Status: Acute Assessment and plan: With evidence of cor pulmonale/RV fluid overload. I do not think he had an acute PE - he had a negative CTA on admission. But RV failure can make BPs worse and so IVF were d/c'ed and we are diuresing. 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 Continue steroids. (8) CAD (coronary artery disease): Status: Chronic Assessment and plan: Continue asa, statin, and beta sony Qualifiers: Associated angina: without angina Coronary Disease-Associated Artery/Lesion type: unspecified vessel or lesion type [place] vs. transplanted heart: [place] heart Qualified Code(s): I25.10 - Atherosclerotic heart disease of [place] coronary artery without angina pectoris (9) DVT prophylaxis: Status: Resolved Assessment and plan: Sc enoxparin (10) Discharge planning issues: Status: Acute Assessment and plan: DNR/DNI Transferred out of the ICU. Subjective Subjective Interval history since last seen: Mr Kang states that he is feeling well. He is enjoying eating a custard, a peanut butter and jelly sandwich and a glass of milk. Denies dizziness, CP, SOB at rest, n/v. BPs: 106/75, 108/81 this am. Did not require vasopressors overnight and is able to be transferred to the medical surgical floor. Exam Narrative Exam Narrative: General: Cachectic elderly male who is A&Ox2, eating lunch, on 2L of O2, no dyspnea/tachypnea/cyanosis HEENT: EOMI, MMM Heart: irregularly irregular rhythm Lungs: Rales B Abdomen: soft, nontender, nondistended Extremities: no edema BLEs Objective Last Vital Signs Temp 36.5 C 03/26/23 08:01 Pulse 72 03/26/23 08:01 Resp 18 03/26/23 10:00 BP 108/81 03/26/23 08:01 Pulse Ox 91 L 03/26/23 10:00 Laboratory Results - last 24 hr 03/25/23 03/25/23 03/25/23 13:00 13:00 16:45 WBC 8.04 RBC 4.51 Hgb 13.7 D Hct 42.0 MCV 93 MCH 30.4 MCHC 32.6 RDW 14.3 H Plt Count 220 MPV 10.0 Immature Gran % 0.9 Neutrophils % 73.1 Lymphocytes % 13.7 Monocytes % 9.7 Eosinophils % 2.4 Basophils % 0.2 Nucleated RBC % 0.0 Absolute Neutrophils 5.88 Absolute Lymphocytes 1.10 L Absolute Monocytes 0.78 Absolute Eosinophils 0.19 Absolute Basophils 0.02 VBG Lactate 2.4 H* Sodium 138 Potassium 3.3 L Chloride 104 Carbon Dioxide 24.7 Anion Gap 9.3 BUN 49 H Creatinine 1.3 Est GFR (CKD-EPI 2020) 58.37 Glucose 183 H Calcium 9.0 Magnesium 1.9 Total Bilirubin 0.6 AST 18 ALT 9 L Alkaline Phosphatase 97 Troponin I < 50 Cancelled NT-Pro-B Natriuret Pep 3619 H Total Protein 6.5 Albumin 2.4 L Procalcitonin Urine Color Yellow Urine Clarity Cloudy Urine pH 5.5 Ur Specific Buck[place] 1.015 Urine Protein Trace H Urine Ketones Negative Urine Blood Trace-intact H Urine Nitrite Negative Urine Bilirubin Negative Urine Urobilinogen 0.2 Ur Leukocyte Esterase Moderate H Urine RBC 0-2 Urine WBC >50 H Ur Epithelial Cells Few Urine Crystals Negative Urine Bacteria Rare Urine Mucus Trace Urine Other Moderate Yeast Ur Culture Indicated? Yes Urine Glucose Negative Add-On Test Request 03/25/23 03/26/23 03/26/23 Unknown 05:25 07:58 WBC 7.56 RBC 4.11 L Hgb 12.7 L Hct 38.3 L MCV 93 MCH 30.9 MCHC 33.2 RDW 14.3 H Plt Count 208 MPV 10.1 Immature Gran % 0.9 Neutrophils % 86.5 Lymphocytes % 7.7 Monocytes % 4.5 Eosinophils % 0.1 Basophils % 0.3 Nucleated RBC % 0.0 Absolute Neutrophils 6.54 Absolute Lymphocytes 0.58 L Absolute Monocytes 0.34 Absolute Eosinophils 0.01 Absolute Basophils 0.02 VBG Lactate 1.2 Sodium 138 Potassium 3.9 Chloride 105 Carbon Dioxide 25.7 Anion Gap 7.3 BUN 47 H Creatinine 1.1 Est GFR (CKD-EPI 2020) 71.32 Glucose 165 H Calcium 8.8 Magnesium 1.9 Total Bilirubin AST ALT Alkaline Phosphatase Troponin I NT-Pro-B Natriuret Pep Total Protein Albumin Procalcitonin 0.2 Urine Color Urine Clarity Urine pH Ur Specific [place] Urine Protein Urine Ketones Urine Blood Urine Nitrite Urine Bilirubin Urine Urobilinogen Ur Leukocyte Esterase Urine RBC Urine WBC Ur Epithelial Cells Urine Crystals Urine Bacteria Urine Mucus Urine Other Ur Culture Indicated? Urine Glucose Add-On Test Request DONE Time Spent with Patient Time Spent with Patient: 35-49 minutes Time was spent: preparing to see the patient(eg.review tests), obtaining and/or reviewing separately otained hiistory, ordering medications,tests, procedures, referring, communicating with other health care program director, indepentently interpreting results, counseling the patient and care coordination
--- NOTE | 2023-03-26 16:00 | RT.EKG_ITS ---
APPROVED REPORT Exam: Resting ECG Reason for Exam: episode of Vtach Patient Location: I HR:75 bpm ECG Measurements Heart Rate 75 AXIS OK [id number] P [id number] QRSd 89 QRS 81 QT 391 T 24 QTc 437 Conclusion Atrial fibrillation...V-rate 57- 89, irreg A-activity Borderline right axis deviation...QRS axis ( 81, 90) Low voltage, extremity leads...all extremity leads <0.5mV Anteroseptal infarct, old...Q >40mS, V1-V2
--- NOTE | 2023-03-26 16:00 | NUR.NOTE ---
Patient is given a small cup of chicken salad. Patient feeds himself same and enjoys same.Nursing Note:
[2023-03-26 16:41] LABS: Anion Gap 10.4 mmol/L (3-11); BUN 49 mg/dL (7-18); CO2 22.6 mmol/L (21.0-32.0); Calcium 8.9 mg/dL (8.5-10.1); Chloride 104 mmol/L (98-107); Estimated GFR 79.97 (mL/min/1.73m2); Glucose 177 mg/dL (74-106); Magnesium 1.9 mg/dL (1.8-2.4); Potassium 3.9 mmol/L (3.5-5.1); Sodium 137 mmol/L (136-145)
--- NOTE | 2023-03-26 16:42 | NUR.NOTE ---
Stat labs are drawn and EKG is taken.Nursing Note:
--- NOTE | 2023-03-26 17:17 | NUR.NOTE ---
Patient is served his dinner tray and begins feeding himself.Nursing Note:
--- NOTE | 2023-03-26 18:33 | NUR.NOTE ---
RN places new 22 gauge IV in patient's right wrist and continues infusion of Doxycycline in said site. Patient tolerating infusion well.Nursing Note:
[2023-03-26 20:12] LABS: Troponin I < 50 ng/L (<or=60)
[2023-03-26] MEDS: Atorvastatin 10 MG TAB PO (22:29)
[2023-03-26] MEDS: guaiFENesin 200 MG/10 ML CUP PO (22:29)
[2023-03-26] MEDS: Senna TAB 1 TAB PO (22:29)
[2023-03-26] MEDS: Mirtazapine 15 MG TAB 7.5 MG PO (22:29)
[2023-03-27] MEDS: AMPICILLIN/SULBACTAM 3 GM in Normal Saline 100 ML IVPB ×4 (00:18→17:16)
[2023-03-27 05:31] VITALS: BP 118/76; PULSE 85; RESP 18; TEMP 36.6; O2SAT 92
[2023-03-27] MEDS: DOXYCYCLINE 100 MG in Normal Saline 100 ML IVPB ×2 (06:19→18:08)
[2023-03-27 06:50] LABS: Abs Immature Grans 0.13 10^3/uL (0.0-0.06); Absolute Basophil Count 0.02 10^3/uL (0.0-0.2); Absolute Eosinophil Count 0.03 10^3/uL (0.0-0.7); Absolute Lymphocyte Count 1.19 10^3/uL (1.2-3.4); Absolute Monocyte Count 0.77 10^3/uL (0.1-0.8); Absolute Neutrophil Count 7.05 10^3/uL (1.2-6.7); Basophils % 0.2; Eosinophils % 0.3; HCT 39.4 % (40.0-50.0); HGB 12.9 g/dL (13.5-17.5); Immature Grans % 1.4; Lymphocytes % 12.9; MCH 30.3 pg (27.0-33.0); MCHC 32.7 % (32.0-36.0); MCV 93 fL (80-95); MPV 10.4 fL (8.0-11.0); Monocytes % 8.4; Neutrophils % 76.8; Platelet Count 239 10^3/uL (130-400); RBC 4.26 10^6/uL (4.36-5.78); RDW 14.2 % (11.8-14.1); RDW-SD 47.8 fL; WBC 9.19 10^3/uL (4.4-10.8)
[2023-03-27 07:09] LABS: Anion Gap 9.4 mmol/L (3-11); BUN 37 mg/dL (7-18); CO2 24.6 mmol/L (21.0-32.0); CREATININE 0.9 mg/dL (0.70-1.30); Calcium 8.8 mg/dL (8.5-10.1); Chloride 107 mmol/L (98-107); Estimated GFR 90.74 (mL/min/1.73m2); Glucose 91 mg/dL (74-106); Magnesium 1.8 mg/dL (1.8-2.4); Potassium 3.3 mmol/L (3.5-5.1); Sodium 141 mmol/L (136-145)
[2023-03-27 07:29] VITALS: BP 122/83; PULSE 64; RESP 18; TEMP 35.8; O2SAT 90
[2023-03-27] MEDS: Gabapentin 300 MG CAP PO ×3 (08:36→21:21)
[2023-03-27] MEDS: Aspirin 81 MG CHEW 162 MG PO (08:38)
[2023-03-27] MEDS: predniSONE 20 MG TAB 40 MG PO (08:38)
[2023-03-27] MEDS: Pantoprazole 40 MG TABCR PO (08:38)
[2023-03-27] MEDS: Ascorbic Acid 500 MG TAB PO (08:38)
[2023-03-27] MEDS: Multivitamin w/Minerals TAB 1 TAB PO (08:38)
[2023-03-27] MEDS: Acetaminophen 500 MG TAB 1000 MG PO ×3 (08:38→21:22)
[2023-03-27] MEDS: Cholecalciferol (Vitamin D3) 1,000 UNIT TAB 2000 UNITS PO (08:39)
[2023-03-27] MEDS: Enoxaparin 40 MG/0.4 ML SYR SC (09:00)
[2023-03-27] MEDS: Ferrous Gluconate 324 MG TAB PO ×2 (10:59→21:22)
[2023-03-27] MEDS: Normal Saline Flush 10 ML SYR IVP ×3 (11:00→21:22)
--- NOTE | 2023-03-27 11:32 | PT.INNT ---
PT Notes Visit Reasons: Sepsis aspiration PNA Despite strong encouragement and education on need for activity and mobility, patient continues to be adamant in denial of PT evaluation.
[2023-03-27 11:53] VITALS: BP 104/69; PULSE 93; RESP 18; TEMP 36.7; O2SAT 95
[2023-03-27 15:19] VITALS: BP 111/75; PULSE 84; RESP 18; TEMP 36; O2SAT 97
[2023-03-27] MEDS: Furosemide 20 MG/2 ML VIAL IVP (17:14)
[2023-03-27 19:15] VITALS: BP 177/77; PULSE 79; RESP 20; TEMP 36.9; O2SAT 96
--- NOTE | 2023-03-27 19:58 | PGE_ITS ---
Date of Service Date of service: 03/27/23 Time of Service: 19:58 Assessment and Plan Assessment and plan (1) Sepsis: Status: Acute Assessment and plan: due to aspiration pneumonia, present on admission. Blood cultures with NGTD. Continue unasyn and doxycline. BPs better. Improving. Qualifiers: Sepsis type: sepsis due to unspecified organism Sepsis acute organ dysfunction status: with acute organ dysfunction Severe sepsis acute organ dysfunction type: acute respiratory failure Acute respiratory failure type: with hypoxia Severe sepsis shock status: without septic shock Qualified Code(s): A41.9 - Sepsis, unspecified organism; R65.20 - Severe sepsis without septic shock; J96.01 - Acute respiratory failure with hypoxia (2) Acute respiratory failure with hypoxia: Status: Acute Assessment and plan: multifactorial, due to aspiration PNA and underlying CPFE in addition to acute on chronic R-sided CHF. Continue steroids, diuresis. Wean O2 as tolerated. Encourage IS/Acapella. Modified diet. (3) Cardiogenic shock: Status: Acute Assessment and plan: With evidence of cor pulmonale/RV fluid overload. I do not think he had an acute PE - he had a negative CTA on admission. But RV failure can make BPs worse with IVF, which appears to be the case. Continue diuresis. BPs are tolerating this. (4) Right-sided congestive heart failure: Status: Acute Assessment and plan: As above (5) Pulmonary hypertension: Assessment and plan: As above (6) Recurrent aspiration pneumonia: Status: Acute Assessment and plan: As above For a swallow study tomorrow. 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 Continue steroids. (8) CAD (coronary artery disease): Status: Chronic Assessment and plan: Continue asa, statin, and beta sony Qualifiers: Coronary Disease-Associated Artery/Lesion type: unspecified vessel or lesion type [place] vs. transplanted heart: [place] heart Associated angina: without angina Qualified Code(s): I25.10 - Atherosclerotic heart disease of [place] coronary artery without angina pectoris (9) DVT prophylaxis: Status: Resolved Assessment and plan: Sc enoxparin (10) Discharge planning issues: Status: Acute Assessment and plan: DNR/DNI Transferred out of the ICU. Subjective Subjective Interval history since last seen: Mr Kang states he is feeling well. Denies dizziness, CP, SOB, n/v. Had an episode of 7-8 beats of Vtach on tele last night - asymptomatic. Requests a sandwich. Nurses report that the patient has been having difficulty with swallowing food today. Exam Narrative Exam Narrative: General: Cachectic elderly male who is A&Ox2, on RA, sitting up in bed HEENT: EOMI, MMM Heart: irregularly irregular rhythm Lungs: Rales B Abdomen: soft, nontender, nondistended Extremities: no edema BLEs Objective Last Vital Signs Temp 36.0 C L 03/27/23 15:19 Pulse 84 03/27/23 15:19 Resp 18 03/27/23 15:19 BP 111/75 03/27/23 15:19 Pulse Ox 97 03/27/23 15:19 Laboratory Results - last 24 hr 03/26/23 03/27/23 19:28 06:11 WBC 9.19 RBC 4.26 L Hgb 12.9 L Hct 39.4 L MCV 93 MCH 30.3 MCHC 32.7 RDW 14.2 H Plt Count 239 MPV 10.4 Immature Gran % 1.4 Neutrophils % 76.8 Lymphocytes % 12.9 Monocytes % 8.4 Eosinophils % 0.3 Basophils % 0.2 Nucleated RBC % 0.0 Absolute Neutrophils 7.05 H Absolute Lymphocytes 1.19 L Absolute Monocytes 0.77 Absolute Eosinophils 0.03 Absolute Basophils 0.02 Sodium 141 Potassium 3.3 L Chloride 107 Carbon Dioxide 24.6 Anion Gap 9.4 BUN 37 H Creatinine 0.9 Est GFR (CKD-EPI 2020) 90.74 Glucose 91 Calcium 8.8 Magnesium 1.8 Troponin I < 50 Time Spent with Patient Time Spent with Patient: 35-49 minutes Time was spent: preparing to see the patient(eg.review tests), obtaining and/or reviewing separately otained hiistory, ordering medications,tests, procedures, referring, communicating with other health career and guidance counselor, indepentently interpreting results, counseling the patient and care coordination
[2023-03-27] MEDS: Mirtazapine 15 MG TAB 7.5 MG PO (21:21)
[2023-03-27] MEDS: guaiFENesin 200 MG/10 ML CUP PO (21:21)
[2023-03-27] MEDS: Senna TAB 1 TAB PO (21:22)
[2023-03-27] MEDS: Atorvastatin 10 MG TAB PO (21:22)
[2023-03-27 23:46] VITALS: BP 119/82; PULSE 91; RESP 20; TEMP 36.6; O2SAT 96
[2023-03-28] MEDS: AMPICILLIN/SULBACTAM 3 GM in Normal Saline 100 ML IVPB ×5 (00:50→23:25)
[2023-03-28 04:00] VITALS: BP 122/77; PULSE 83; RESP 20; TEMP 36.6; O2SAT 98
[2023-03-28] MEDS: DOXYCYCLINE 100 MG in Normal Saline 100 ML IVPB (06:22)
[2023-03-28 07:27] VITALS: BP 142/93; PULSE 82; RESP 16; TEMP 36.5; O2SAT 98
[2023-03-28 07:32] LABS: Anion Gap 10.6 mmol/L (3-11); BUN 40 mg/dL (7-18); CO2 25.4 mmol/L (21.0-32.0); CREATININE 1.1 mg/dL (0.70-1.30); Calcium 8.6 mg/dL (8.5-10.1); Chloride 108 mmol/L (98-107); Estimated GFR 71.32 (mL/min/1.73m2); Glucose 97 mg/dL (74-106); Magnesium 1.8 mg/dL (1.8-2.4); Potassium 3.8 mmol/L (3.5-5.1); Sodium 144 mmol/L (136-145)
[2023-03-28] MEDS: Tiotropium/Olodaterol 10 PUFF INHALER 2 PUFF IH (07:47)
[2023-03-28] MEDS: Enoxaparin 40 MG/0.4 ML SYR SC (08:37)
[2023-03-28] MEDS: Furosemide 20 MG/2 ML VIAL IVP (08:37)
[2023-03-28] MEDS: predniSONE 20 MG TAB 40 MG PO (08:37)
[2023-03-28] MEDS: Pantoprazole 40 MG TABCR PO (08:38)
[2023-03-28] MEDS: Polyethylene Glycol 3350 17 GM PACKET PO (08:43)
--- NOTE | 2023-03-28 08:45 | CMPROGNOTE_ITS ---
Date of service: 03/28/23 Time of Service: 08:46 Care Management Progress Note Progress Note Text Progress Note Text: S/O: Ilia was sitting up in bed when CM met with him. He stated that he is feeling ok today. He reported that he is still considering going to rehab post hospitalization. He stated that he is willing to consider the [facility]. CM sent the referral to the [facility] for consideration. BYRON followed up with all other facilities regarding his referral; [facility]a is currently reviewing him for admission. Ilia has used some of his MCR days while at [facility] recently, which may be a barrier to his acceptance at a rehab facility; BYRON reviewed this with Ilia. Per report, he is scheduled to have a modified barrium swallow evaluation tomorrow. CM will continue to follow. A: Nain is a 72 year old male admitted to [facility] on 03/24/23 for sepsis aspiration pna. P: Anticipate Ilia will return home with a resumption of HH RN, PT vs SNF. He recently returned home from SNF; CM will discuss the option of Ilia returning to SNF if indicated. He will transport via w/c van. He will follow up with his PCP and discharge plan of care. CM will continue to follow.
--- NOTE | 2023-03-28 09:19 | PT.INIE ---
PT Notes Visit Reasons: Sepsis aspiration PNA Inpatient Physical Therapy Evaluation Date: 03/28/23 Referring Doctor: Kassandra Esparza PT Orders: PT CONSULT: limited ability to ambulate Precautions: fall, standard Patient Profile/Admitting Diagnosis: Ilia is a 72-year-old male past history of pulmonary fibrosis with emphysema, CAD s/p CABG, CHF, a-fib, and multiple recent hospitalization for recurrent PNA who presented to the ED with complaints of an elevated HR. He was found to be septic, with recurrent aspiration pneumonia. Had recently returned home after a stay at [facility]. PT consult requested to assess mobility. Social History/Home Situation: Patient provides limited history. Sounds to have recently returned home from [facility]. States he uses a walker sometimes. Has a full flight of stairs to enter his home. Equipment Owned/DME: unable to ascertain Subjective: Ilia is agreeable to PT intervention today. Objective: General Observation: Resting in bed. No lines. Mental Status: A&Ox3. Does require redirection during session. Often responds to direct questions with personal requests instead of answering questions. Pain: denies ROM: Right Upper Extremity: Shoulder flexion to 120*. Elbow and wrist motion WFL. Left Upper Extremity: Shoulder flexion to 120*. Elbow and wrist motion WFL. Right Lower Extremity: grossly WFL Left Lower Extremity: grossly WFL Strength: Right Upper Extremity: Shoulder flexion 3-/5. Biceps 4-/5. Triceps 3+/5. Left Upper Extremity: Shoulder flexion 3-/5. Biceps 4-/5. Triceps 3+/5. Right Lower Extremity: Hip flexion 4/5. Quads 4-/5. HS 4-/5 Ankle DF 4/5. Left Lower Extremity: Hip flexion 4/5. Quads 4/5. HS 4-/5 Ankle DF 4/5. Bed Mobility/Transfers: supine-sit: min A sit-stand: SBA stand-sit: SBA Gait: Ambulates 25'x2 with FWW, SBA Balance: Static Sitting: normal Dynamic Sitting: normal Static Standing: fair Dynamic Standing: fair 4-Position Balance Test: 0/4 Small RAVI: 4 seconds Partial Tandem: 0 seconds Full Tandem: 0 seconds Single Leg Stance: 0 seconds Special Tests: Mobility Limitations Standardized Measure [facility] 6 clicks Basic Mobility Inpatient Short Form: Raw Score: 20 Standardized Score: 36% impairment Informed Consent/Education: Patient instructed in purpose of PT consult and plan of care. Treatment : Initial Evaluation (69837) Therapeutic Exercises ([id number]): Instructed in independent exercises for completion between PT sessions. Provided written directions on board: 1. seated march x 1 minute 2. alternating LAQ 1 minute 3. Heel/toe raises 1 minute Sit-stand 5x, unilateral UE support standing small RAVI, 30 seconds Assessment: Patient is a 72 year old male referred to physical therapy services with the diagnosis of limited ability to ambulate. Patient presents with clinical signs and symptoms consistent with diagnosis, with diminished mobility due to acute medical issues. He currently demonstrates the following impairment level findings: 1. decreased balance 2. decreased LE strength 3. decreased UE strength 4. gait impairments Impairments are contributing to the following functional limitations: 1. Unable to ambulate without AD 2. unable to independently manage stairs 3. balance impairments with increased fall risk 4. decreased activity tolerance Patient is assessed as a Low 33384 complexity based on the following: History: Patient is a 72 year old male with chronic health issues, presenting for PT evaluation in acute care setting where he is being treated for sepsis. He has recently returned home after a SNF stay. Anticipate he'll be able to return to community once medically stable, although will continue monitoring mobility. Examination: functional limitations as noted abvoe Presentation: evolving Decision Making: low complexity Goals: Goals X1 week 1. Supine-Sit : supervision 2. Sit-Supine : supervision 3. Sit-Stand : supervision 4. Stand-Sit : supervision 5. Bed-Chair : supervision with FWW 6. Chair-Bed : supervision with FWW 7. Gait : supervision with FWW x 50' 8. Stairs : ascend and descend with single rail, SBA Plan of Care/Treatment Plan: 1-2x/day, 7 days/week x 1 week. Plan of care has been reviewed with the INSTRUCTIONAL DESIGN TECHNOLOGIST providing the service under Physical Therapy direction. Initiate Physical Therapy intervention for strengthening, bed mobility, transfers, gait, stairs, balance training, use of assistive device. DISCHARGE RECOMMENDATIONS: Home with services: PT TREATMENT CODE/TIME: [id number] (35 minutes) ([id number]) Iram Mcgee, PT, DPT [facility] All Active Problems (Updated 03/25/23 @ 17:37 by Shakila Mayberry MD) Discharge planning issues (Acute) Right-sided congestive heart failure (Acute) Cardiogenic shock (Acute) History of esophagectomy (Acute) Aspiration pneumonia (Acute) Hypoxemia (Acute) HTN (hypertension) (Chronic) 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) Acute respiratory failure with hypoxia (Acute) Sepsis (Acute) Recurrent pneumonia (Acute) Pneumonia (Acute) Hypoxemia (Acute) Borderline hyperglycemia (Acute) Recurrent aspiration pneumonia (Acute) COPD exacerbation (Acute) Pneumonia (Acute) COPD exacerbation (Acute) Shortness of breath (Acute) Lung mass (Acute) Elevated troponin (Acute) Hypotension (Acute) DNR (do not resuscitate) (Acute) Acute bronchitis (Acute) Left foot pain (Acute) Palliative care patient (Acute) Underweight (Acute) Diastolic heart failure (Chronic) Closed intertrochanteric fracture of left femur (Acute) s/p IMN fixation (08/28/22) Fall (Acute) Blunt head trauma (Acute) Contusion of elbow, left (Acute) Contusion of left leg (Acute) Closed fracture of left hip (Acute) Mild cognitive impairment (Acute) Advanced care planning/counseling discussion (Acute) Literacy level of illiterate (Acute) Palliative care encounter (Acute) Acute on chronic right-sided congestive heart failure (Chronic) Pneumonia (Acute) Depression (Chronic) Dental abscess (Acute) 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) Abnormal chest CT (Acute) Full code status (Acute) Urinary retention (Chronic) 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) CAP (community acquired pneumonia) (Acute) Generalized weakness (Acute) Skin tear of left elbow without complication (Acute) Chronic obstructive lung disease (Chronic) Tricuspid regurgitation (Chronic) CAD (coronary artery disease) (Chronic) Hypertension (Chronic) Medical History Abdominal pain Abnormal radiologic findings on diagnostic imaging of renal pelvis, ureter, or bladder Acute on chronic anemia Acute on chronic diastolic (congestive) heart failure Acute on chronic systolic CHF (congestive heart failure) Adenocarcinoma of esophagus From [facility]:Hx GI Cancer...EGD 04/2021 with friable mucosa. SDOne at that time because of GI blooed Afib Alcohol abuse Alcohol abuse, continuous drinking behavior Anemia Aspiration pneumonia Bilateral lower extremity edema CAD (coronary artery disease) of artery bypass graft Cerumen impaction CHF, acute on chronic Closed intertrochanteric fracture Confusion state COVID-19 COVID-19 Diabetes mellitus Difficulty reading Edema Encounter for colorectal cancer screening Epididymitis, right (08/02/16) Essential hypertension Failure to thrive Fall GERD (gastroesophageal reflux disease) GI bleed GI bleeding H/O malignant neoplasm of stomach Heart failure, left, with LVEF 41-49% History of fracture of left hip S/P IM NAIL DOS: 08/28/22 History of GI bleed Hoarseness Hydrocele, right (01/23/16) Hyperlipidemia Hypophosphatemia Kyphoscoliosis Low back pain Malnutrition Mild bibasilar atelectasis Pancreatitis Poor hygiene Prediabetes Protein malnutrition Pulmonary hypertension Recent weight loss Rib fractures Shortness of breath Solitary pulmonary nodule Tinnitus, left Tobacco abuse Weight loss Surgical History cardiac cath Coronary Artery Bypass Gaft (CABG) EGD - IV Sedation Esophagectomy H/O colonoscopy (2007) H/O colonoscopy (04/14/18) dr geller, sigmoid diverticulosis, repeat 10 years History of esophagogastroduodenoscopy (EGD) (09/2017) History of hydrocelectomy History of right inguinal hernia repair repair times two sugrical flap of unhealing wound
[2023-03-28 11:07] VITALS: BP 114/76; PULSE 83; RESP 17; TEMP 36.3; O2SAT 96
--- NOTE | 2023-03-28 14:38 | SPP_ITS ---
Date of service: 03/28/23 Time of Service: 12:30 Subjective NARROW GAUGE ENGINEER Swallowing Treatment HPI: 72 yo male with history of esophageal CA s/p sphincterectomy and esophagectomy (pt states '50 years ago'), history of pulmonary fibrosis, and history of recurrent aspiration pneumonia. He was admitted 03/24 with pna, sepsis, acute respiratory failure. Of notice, he has been admitted to the hospital for pulmonary complications, primarily pneumonia, at least 6+ times this calendar year. Last MBS completed was during admission in November 2022. During that study he had once incident of prandial aspiration, though it was spontaneously ejected. There was stasis of the barium tablet in the mid- esophagus, not resolved with liquid wash and requiring puree chaser to push into stomach. He was recommended L5 Minced/Moist, Thin liquids, and strict aspiration precautions (see report for further information). Subjective: Ilia was contacted in his room upright in a chair, tolerating room air. He had just finished his noon meal and declined additional solid textures though agreeable to coffee. He reports he ate most of his lunch without difficulty. Feels he is closer to baseline. RN reports patient tolerating meals better up in chair vs. bed. Voice remains hypophonic/weak/hoarse, patient states this is baseline. Objective/Assessment/Plan Objective Treatment Techniques & Outcomes: Facility Sales And Admin Goals: Patient will remain free from aspiration-related illness, malnutrition, and dehydration. Short Term Goals: Patient will tolerate L5 Minced Moist Diet and Thin liquids without overt s/s aspiration across 2/2 visits. PO Trials Assessed: IDDSI 0 Thin Liquids x5 sips Patient declines trials of solids Oral Phase Findings: WFL for trials assessed Pharyngeal Phase Findings: Delayed swallow initiation Reduced hyolaryngeal elevation/excursion Cough immediately after sip x1 Assessment Patient continues to demonstrate at least mild acute on chronic oral-pharyngeal dysphagia with strong likelihood of esophageal component given medical hx and results noted on prior MBSS in November 2022. He did demonstrate overt wet cough x1 with trials of coffee today, suspicious for penetration vs aspiration. Talking while swallowing may have contributed to this. He would benefit from continued S LP f/u. placed new MBS consultation, tentatively scheduled for tomorrow 03/29/23. Pending oral pharyngeal findings, may be beneficial to screen for esophageal dysfunction to determine most appropriate follow up. Anticipate EGD/barium swallow/GI referral may be beneficial. Further NARROW GAUGE ENGINEER Services indicated. Patient to be followed while on unit Recommendation at Discharge: NARROW GAUGE ENGINEER Services likely indicated at next level of care- to be determined Suggested Referrals: Gastroenterology Recommended Procedures: consider EGD/barium swallow Plan Plan: Frequency: 2-3x/week for 1-2 weeks Recommendations DIET: ? SOLIDS: 5-Minced & Moist Solids LIQUIDS: 0-Thin Liquids MEDICATIONS: Whole in L4 puree (applesauce, pudding, ice cream) RISK MANAGEMENT: HOB bolt upright as tolerated; upright for all PO intake. REMAIN UPRIGHT FOR AT LEAST 60 MIN AFTER MEALS Encourage physical mobility as tolerated. Oral hygiene q4h/every 4 hours, before/after PO intake using friction with toothbrush on all oral structures as tolerated Level of Assistance/Supervision: Distant supervision for all PO intake (25% of meal) PO intake only when awake/alert? Strategies/Adaptations/Assistive Equipment: Small sips and bites when eating, Slow rate of intake, Swallow between bites Posture/Positioning Needs: Maintain upright position at least 60 minutes after meals, Avoid meals/snacks 2- 3 hours prior to reclining/sleeping, Sleep with head of bed elevated to reduce likelihood of nocturnal reflux Total Time Spent: 10 min Coding CPT Codes ORAL FUNCTION THERAPY - 15354 ([id number]) Coding CPT Codes ORAL FUNCTION THERAPY - 79954 ([id number]) Additional Codes Date of Service ([id number]) Date of service: 03/28/23
[2023-03-28] MEDS: Gabapentin 300 MG CAP PO ×2 (14:42→20:05)
[2023-03-28] MEDS: Acetaminophen 500 MG TAB 1000 MG PO ×2 (14:42→20:06)
[2023-03-28 15:11] VITALS: BP 145/92; PULSE 95; RESP 18; TEMP 36.4; O2SAT 99
[2023-03-28] MEDS: Ferrous Gluconate 324 MG TAB PO ×2 (15:22→20:06)
--- NOTE | 2023-03-28 15:58 | W.PM.PROGNOT ---
Date of Service Date of service: 03/28/23 Time of Service: 15:58 Assessment and Plan Assessment and plan (1) Sepsis: Status: Acute Assessment and plan: due to aspiration pneumonia, present on admission. Blood cultures with NGTD. Continue unasyn and doxycline. BPs better. Improving. Qualifiers: Sepsis type: sepsis due to unspecified organism Sepsis acute organ dysfunction status: with acute organ dysfunction Severe sepsis acute organ dysfunction type: acute respiratory failure Acute respiratory failure type: with hypoxia Severe sepsis shock status: without septic shock Qualified Code(s): A41.9 - Sepsis, unspecified organism; R65.20 - Severe sepsis without septic shock; J96.01 - Acute respiratory failure with hypoxia (2) Acute respiratory failure with hypoxia: Status: Acute Assessment and plan: multifactorial, due to aspiration PNA and underlying HFPEF in addition to acute on chronic R-sided CHF (cor pulmonale) Continue steroids, diuresis and antibiotics (Unasyn and doxycycline) Wean O2 as tolerated. Encourage IS/Acapella. Modified diet, check barium swallow in the a.m. and follow LICENSED MORTGAGE LOAN OFFICER recommendations (3) Cardiogenic shock: Status: Acute Assessment and plan: With evidence of cor pulmonale/RV fluid overload. CTA on admission negative for P.E., likely fluid overload in setting of chronic cor pulmonale (4) Right-sided congestive heart failure: Status: Acute Assessment and plan: As above. clinically he seems improved. He has no peripheral edema today Qualifiers: Heart failure chronicity: acute on chronic Qualified Code(s): I50.813 - Acute on chronic right heart failure (5) Pulmonary hypertension: Assessment and plan: As above (6) Afib: Assessment and plan: rate reasonably controlled although at times upwards of low 100's. I have increased his Toprol XL to 37.5 mg bid. He is not on an anticoagulant. I have reviewed his records, his problem list includes GI bleed however, I can not find any recent admissions for GI bleeding. He is on enoxaparin for DVT prophylaxis. I will hold on anticoagulating him further until I can get more information on this GI bleed listed on his problem list. 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 Continue steroids. (9) CAD (coronary artery disease): Status: Chronic Assessment and plan: Continue asa, statin, and beta sony Qualifiers: Coronary Disease-Associated Artery/Lesion type: unspecified vessel or lesion type [place] vs. transplanted heart: [place] heart Associated angina: without angina Qualified Code(s): I25.10 - Atherosclerotic heart disease of [place] coronary artery without angina pectoris (10) DVT prophylaxis: Status: Resolved Assessment and plan: Sc enoxparin (11) Discharge planning issues: Status: Acute Assessment and plan: DNR/DNI Subjective Subjective Interval history since last seen: Ilia denies any chest pain or acute dyspnea. Still has a moist cough that is non productive. He remains Unasyn and doxycycline (unclear as to why doxy). LICENSED MORTGAGE LOAN OFFICER has seen him but unfortunately MBS could not be done today d/t too overbooked schedule, but will complete in the a.m. Exam Narrative Exam Narrative: Thin cachectic older gentleman who appears to be in no acute distress he is sitting up in bed watching TV he has a moist cough that is nonproductive he is alert and oriented Lungs with bibasilar rhonchi no wheezing or rales Heart is irregularly irregular (per ICU nurses telemetry shows atrial fibrillation at rates of 70-106). Abdomen scaphoid soft and nontender Lower extremities without peripheral edema or cyanosis. Objective Last Vital Signs Temp 36.4 C L 03/28/23 15:11 Pulse 95 H 03/28/23 15:11 Resp 18 03/28/23 15:11 BP 145/92 H 03/28/23 15:11 Pulse Ox 99 03/28/23 15:11 Laboratory Results - last 24 hr 03/28/23 06:54 Sodium 144 Potassium 3.8 Chloride 108 H Carbon Dioxide 25.4 Anion Gap 10.6 BUN 40 H Creatinine 1.1 Est GFR (CKD-EPI 2020) 71.32 Glucose 97 Calcium 8.6 Magnesium 1.8 Time Spent with Patient Time Spent with Patient: 35-49 minutes Time was spent: preparing to see the patient(eg.review tests), obtaining and/or reviewing separately otained hiistory, ordering medications,tests, procedures, referring, communicating with other health out of school hours care worker, indepentently interpreting results, counseling the patient and care coordination
--- NOTE | 2023-03-28 16:31 | PT.INTREAT ---
Date of service: 03/28/23 Time of Service: 16:12 PT Notes Visit Reasons: Sepsis aspiration PNA Inpatient Physical Therapy Treatment Note [facility] Date: 03/28/23 PRECAUTIONS: Fall, standard, activity as tolerated. SUBJECTIVE: Patient not enthusiastic about participating in physical therapy this afternoon. Does report being hungry and not wishing to wait half an hour for dinner to arrive. DESTIN Pa notified. OBJECTIVE: Patient supine in bed, eventually consents to therapy. ? PAIN: none reported. VITALS: monitored by nursing staff. ? BED MOBILITY/TRANSFERS? Rolling L/R: independent Supine-sit: modified independent with HOB elevated ~45 degrees, bilateral side rails, and verbal cues. ? Sit-supine: not assessed ? Sit-stand: SBA? Stand-sit: SBA? Bed-Chair: CGA? Chair-bed: CGA ? Therapeutic Exercises ([id number]): Direct one-on-one instruction in therapeutic exercises to develop strength, endurance, range of motion and flexibility. Ambulation ? Assistive Device: FWW ? Weight bearing: full Assist: CGA ? Distance:? 25 feet ? Deviation: Patient has kyphotic posture, reduced step height and narrow RAVI during ambulation. Patient declined to participate further after ambulation, stating he is tired and hungry. ? Provided skilled instruction in proper exercise performance Provided skilled manual cues to facilitate proper muscle recruitment and/or form. ASSESSMENT:? Patient opts to sit up in chair after treatment session. JG alarm in place and active. Call prasad within easy reach. PLAN: Continue global strengthening per plan of care until patient is medically ready for discharge and has a safe discharge plan. TREATMENT CODE/TIME: 17 minutes beginning at 16:12
[2023-03-28] MEDS: Normal Saline Flush 10 ML SYR IVP (17:09)
[2023-03-28] MEDS: Doxycycline Hyclate 100 MG CAP PO (18:31)
[2023-03-28] MEDS: Mirtazapine 15 MG TAB 7.5 MG PO (20:06)
[2023-03-28] MEDS: Atorvastatin 10 MG TAB PO (20:06)
[2023-03-28 23:30] VITALS: PULSE 69; RESP 18; TEMP 36.4; O2SAT 97
[2023-03-29] MEDS: AMPICILLIN/SULBACTAM 3 GM in Normal Saline 100 ML IVPB ×4 (05:02→23:48)
[2023-03-29 05:04] VITALS: BP 150/105; PULSE 76; RESP 18; TEMP 36.5; O2SAT 97
[2023-03-29] MEDS: Doxycycline Hyclate 100 MG CAP PO (05:32)
[2023-03-29 07:19] VITALS: BP 130/83; PULSE 70; RESP 18; TEMP 35.6; O2SAT 96
[2023-03-29] MEDS: Tiotropium/Olodaterol 10 PUFF INHALER 2 PUFF IH (07:54)
--- NOTE | 2023-03-29 08:00 | DI.RAD_ITS ---
Exam(s) RF MODIFIED SPEECH BA SWALLOW TECHNIQUE: Modified barium swallow was performed in conjunction with speech pathology. CONTRAST MATERIAL: Multiple consistencies of oral barium contrast were administered. COMPARISON: No exams were available for comparison FINDINGS: Note that this is not a dedicated esophagram, distal esophagus not evaluated. Laryngeal penetration with thin liquids. One episode of minimal aspiration. Minimal vallecular pool ing. Speech pathology report to follow. IMPRESSION: Laryngeal penetration with thin liquids. RADIATION DOSE DELIVERED: wayne Farias=9.29 mGy
[2023-03-29 08:04] LABS: HCT 40.8 % (40.0-50.0); HGB 13.6 g/dL (13.5-17.5); MCHC 33.3 % (32.0-36.0); MCV 93 fL (80-95); MPV 10.2 fL (8.0-11.0); Platelet Count 258 10^3/uL (130-400); RBC 4.39 10^6/uL (4.36-5.78); RDW 14.4 % (11.8-14.1); RDW-SD 48.8 fL; WBC 10.49 10^3/uL (4.4-10.8)
[2023-03-29 08:17] LABS: Absolute Lymphocyte Count 2.73 10^3/uL (1.2-3.4); Absolute Monocyte Count 0.94 10^3/uL (0.1-0.8); Atypical Lymphocytes % 3; Bands % 1; Diff Comment Manual Differential; Metamyelocytes % 2; Myelocytes % 1; RBC Morphology Normal
--- NOTE | 2023-03-29 08:35 | PDOC.CMPRO ---
Date of service: 03/29/23 Time of Service: 08:35 Care Management Progress Note Progress Note Text Progress Note Text: S/O: Ilia went down for a Barium Swallow this afternoon and was unavailable to meet with CM. Norma is currently reviewing him for LTC, however a bed offer will be unlikely since he doesn't have [employer] medicaid and his Medicaid days are gone. [facility] has already declined. Per Dr. Montez, Ilia has a [employer] medicaid application on his table at home that is somewhat filled out. CM will continue to follow. CM will discuss the LTM process with Ilia. A: Nain is a 72 year old male admitted to [facility] on 03/24/23 for sepsis aspiration pna. P: Anticipate Ilia will return home with a resumption of HH RN, PT vs SNF. He recently returned home from SNF; CM will discuss the option of Ilia returning to SNF if indicated. He will transport via w/c van. He will follow up with his PCP and discharge plan of care. CM will continue to follow.
[2023-03-29] MEDS: Enoxaparin 40 MG/0.4 ML SYR SC (09:12)
[2023-03-29] MEDS: Furosemide 20 MG/2 ML VIAL IVP (09:12)
[2023-03-29] MEDS: Aspirin 81 MG CHEW 162 MG PO (09:13)
[2023-03-29] MEDS: Gabapentin 300 MG CAP PO ×3 (09:13→20:08)
[2023-03-29] MEDS: Multivitamin w/Minerals TAB 1 TAB PO (09:13)
[2023-03-29] MEDS: Acetaminophen 500 MG TAB 1000 MG PO ×3 (09:13→20:09)
[2023-03-29] MEDS: Pantoprazole 40 MG TABCR PO (09:13)
[2023-03-29] MEDS: Normal Saline Flush 10 ML SYR IVP ×3 (09:13→12:00)
[2023-03-29] MEDS: Ascorbic Acid 500 MG TAB PO (09:14)
[2023-03-29] MEDS: predniSONE 20 MG TAB 40 MG PO (09:14)
[2023-03-29] MEDS: Cholecalciferol (Vitamin D3) 1,000 UNIT TAB 2000 UNITS PO (09:14)
--- NOTE | 2023-03-29 10:21 | PT.INTREAT ---
Date of service: 03/29/23 Time of Service: 09:48 PT Notes Visit Reasons: Sepsis aspiration PNA Inpatient Physical Therapy Treatment Note [facility] Date: 03/29/23 PRECAUTIONS: Fall, standard, activity as tolerated. SUBJECTIVE: Patient appears to be asleep, grumbles about not wanting to move OBJECTIVE: Supine in bed, eventually agreeable to therapy. JG alarm in place and active.? PAIN: none reported. VITALS: monitored by nursing staff. ? ? BED MOBILITY/TRANSFERS? Rolling L/R: independent Supine-sit: independent ? Sit-supine: independent ? Sit-stand: independent ? Stand-sit: independent ? Bed-Chair: SBA ? Chair-bed: SBA ? Therapeutic Exercises ([id number]): Direct one-on-one instruction in therapeutic exercises to develop strength, endurance, range of motion and flexibility. ? Exercises seated marching x1 minute. Patient becomes short of breath. 1 minute rest between exercises. alternating kick outs x1 minute. Verbal cues for full extension to facilitate maximal contraction of quadriceps group. heel toe raises x1 minute. Ambulation ? Assistive Device: FWW? Weight bearing: full Assist: SBA ? Distance:?25 feet AFTERNOON: 20 feet, seated rest x3 ? Deviation: kyphotic posture, decreased step length, decreased step height, narrow RAVI. Encouraged patient to walk further, patient declined stating that his legs would not hold him any longer. AFTERNOON: Kyphotic posture, stride length increased from this morning with the heel of each foot clearing the toes of the other. Asymmetric gait with left leg leading. Patient reports being extremely hungry after ambulation. DESTIN Leon notified. ? Provided skilled instruction in proper exercise performance Provided skilled manual cues to facilitate proper muscle recruitment and/or form. ASSESSMENT:? JG alarm replaced. Patient tolerates therapy well. Reviewed with patient that this afternoon therapy would include a longer walk with a wheelchair follow. AFTERNOON: Christian alarm not active when this therapist enters, so Christian alarm not replaced. PLAN: Continue global strengthening per plan of care until patient is medically cleared for discharge and has a safe discharge plan. TREATMENT CODE/TIME: 19 minutes beginning at 9:48 and 23 minutes beginning at 15:26 for a total of 42 minutes today.
[2023-03-29 10:38] VITALS: BP 115/71; PULSE 87; RESP 18; TEMP 36.4; O2SAT 92
[2023-03-29] MEDS: Normal Saline 500 ML 100 ML IV (11:31)
--- NOTE | 2023-03-29 12:50 | W.PM.PROGNOT ---
Date of Service Date of service: 03/29/23 Time of Service: 12:50 Assessment and Plan Assessment and plan (1) Acute respiratory failure with hypoxia: Status: Acute Assessment and plan: multifactorial, due to aspiration PNA and underlying HFPEF in addition to acute on chronic R-sided CHF (cor pulmonale) Continue steroids, diuresis and antibiotics (Unasyn and doxycycline); discontinue doxycycline. Remains on Unasyn (day #6) I will get follow up CXR prior to discharge but clinically he has responded to antibiotics and modification of his diet Encourage IS/Acapella. modified diet per CLINICAL TECHNICIAN recommendations. patient to have follow up modified barium swallow done this afternoon. CLINICAL TECHNICIAN recommends referral to GI for EGD. (2) Right-sided congestive heart failure: Status: Acute Assessment and plan: As above. clinically he seems improved. He has no peripheral edema today. Will dc iv lasix, switch to po torsemide, add low dose spironolactone and monitor BMP Qualifiers: Heart failure chronicity: acute on chronic Qualified Code(s): I50.813 - Acute on chronic right heart failure (3) Pulmonary hypertension: Assessment and plan: As above (4) Afib: Assessment and plan: rate reasonably controlled although at times upwards of low 100's. I have increased his Toprol XL to 37.5 mg bid. He is not on an anticoagulant. I have reviewed his records, his problem list includes GI bleed however, I can not find any recent admissions for GI bleeding. He is on enoxaparin for DVT prophylaxis. I will hold on anticoagulating him further until I can get more information on this GI bleed listed on his problem list. continue telemetry for another 24 hr until I see how he responds to the change in his Toprol XL dose Qualifiers: Atrial fibrillation type: longstanding persistent Qualified Code(s): I48.11 - Longstanding persistent atrial fibrillation (5) Recurrent aspiration pneumonia: Status: Acute Assessment and plan: As above For a swallow study Tuesday (6) Combined pulmonary fibrosis and emphysema (CPFE): Status: Acute Assessment and plan: Continue outpatient regimen. Continue steroids, however, will start to taper prednisone. (7) CAD (coronary artery disease): Status: Chronic Assessment and plan: Continue asa, statin, and beta sony Qualifiers: Coronary Disease-Associated Artery/Lesion type: unspecified vessel or lesion type [place] vs. transplanted heart: [place] heart Associated angina: without angina Qualified Code(s): I25.10 - Atherosclerotic heart disease of [place] coronary artery without angina pectoris (8) DVT prophylaxis: Status: Resolved Assessment and plan: Sc [place] (9) Discharge planning issues: Status: Acute Assessment and plan: DNR/DNI Subjective Subjective Interval history since last seen: Ilia has no new complaints. Denies any dyspnea or sputum production. Exam Narrative Exam Narrative: Kyphyotic elderly white male sitting up in his chair, watching TV, no acute distress Lungs: prolonged expiratory phase but otherwise clear Heart: irregularly irregular, (monitor has shown chronic afib), I have ordered telemetry to be discontinued Abdomen: scaphoid, soft, nontender Objective Last Vital Signs Temp 36.4 C L 03/29/23 10:38 Pulse 87 03/29/23 10:38 Resp 18 03/29/23 10:38 BP 115/71 03/29/23 10:38 Pulse Ox 92 03/29/23 10:38 Laboratory Results - last 24 hr 03/29/23 07:03 WBC 10.49 RBC 4.39 Hgb 13.6 Hct 40.8 MCV 93 MCH 31.0 MCHC 33.3 RDW 14.4 H Plt Count 258 MPV 10.2 Immature Gran % 0.0 Neutrophils % 61.0 Band Neutrophils % 1 Lymphocytes % 23.0 Atypical Lymphs % 3 Monocytes % 9.0 Eosinophils % 0.0 Basophils % 0.0 Metamyelocytes % 2 Myelocytes % 1 Nucleated RBC % 0.0 Absolute Neutrophils 6.50 Absolute Lymphocytes 2.73 Absolute Monocytes 0.94 H Absolute Eosinophils 0.00 Absolute Basophils 0.00 RBC Morphology Normal Time Spent with Patient Time Spent with Patient: 35-49 minutes Time was spent: preparing to see the patient(eg.review tests), ordering medications,tests, procedures, referring, communicating with other health farm or ranch animal caretaker, indepentently interpreting results, counseling the patient and care coordination
[2023-03-29 13:16] LABS: Lab Add On Test DONE
--- NOTE | 2023-03-29 13:58 | ST.MBS ---
Date of Service Date of service: 03/29/23 Time of Service: 13:58 Modified Barium Swallow Study Findings: Video fluoroscopic Swallowing Evaluation (VFSE) / Modified Barium Swallow Study (MBSS) Speech Language Pathology Report Patient referred for VFSE/MBSS from Kassandra Esparza given repeat hospitalizations for aspiration PNA with documented hx [id number] dysphagia. HPI: 72 yo male with MCI, history of esophageal CA s/p sphincterectomy and esophagectomy (pt states '50 years ago'), history of pulmonary fibrosis, and history of recurrent aspiration pneumonia. He was admitted 03/24 with pna, sepsis, acute respiratory failure, also found with atrial fibrilation and right sided congestive heart failure. Of notice, he has been admitted to the hospital for pulmonary complications, primarily pneumonia, at least 6+ times this calendar year. Last MBS completed was during admission in November 2022. During that study he had once incident of prandial aspiration, though it was spontaneously ejected. There was stasis of the barium tablet in the mid-esophagus, not resolved with liquid wash and requiring puree chaser to push into stomach. He was recommended L5 Minced/Moist, Thin liquids, and strict aspiration precautions (see report for further information). IMPRESSIONS: Demonstrates largely stable oral-pharyngeal swallow function over previous exam. Under exam conditions (fully upright, slow rate, small sip size) patient appeared with consistent flash penetration of thin AND mildly thick liquids PRIOR TO the swallow (delayed pharyngeal onset). However, no aspiration below the glottis is observed. Patient was largely able to clear penetrated material by swallow completion without need for further cough/throat clear strategy to eject from larynx. He demonstrated good pharyngeal clearance of puree and solid textures. Some distal esophageal retrograde flow is noted and proximal esophageal stasis of mildly thick liquids noted on exam, which is consistent with similar esophageal concerns noted on previous exam. He does remain at higher risk of aspiration, especially if strict aspiration precautions are not followed. Staff/caregivers should remain diligent with additional risk management strategies (oral care, reflux considerations as outlined below). Given baseline cognitive function and additional cardio-pulmonary medical risk factors, consider whether or not he has the level of care he needs at home to ensure safe tolerance of PO intake. Further POST ACUTE CARE REGISTERED NURSE Services indicated. Patient to be followed while on unit Discharge: Will likely benefit from POST ACUTE CARE REGISTERED NURSE vs SNF/LTC POST ACUTE CARE REGISTERED NURSE services at discharge with focus on caregiver education to ensure aspiration precautions are implemented. Suggested Referrals: Gastroenterology Recommended Procedures: consider EGD/barium swallow DIET: ? SOLIDS: 5-Minced & Moist Solids LIQUIDS: 0-Thin Liquids MEDICATIONS: Whole vs crushed in L4 puree (applesauce, pudding, ice cream) RISK MANAGEMENT: HOB bolt upright as tolerated or up to chair; upright for all PO intake. REMAIN UPRIGHT FOR AT LEAST 60 MIN AFTER MEALS Encourage physical mobility as tolerated. Oral hygiene BID & before/after PO intake using friction with toothbrush on all oral structures as tolerated Level of Assistance/Supervision: Distant supervision for all PO intake (25% of meal) with multiple initial reminders for small sip size. PO intake only when awake/alert? Strategies/Adaptations/Assistive Equipment: Small sips and bites when eating Slow rate of intake Swallow between bites Posture/Positioning Needs: Maintain upright position at least 60 minutes after meals Avoid meals/snacks 2-3 hours prior to reclining/sleeping Sleep with head of bed elevated to reduce likelihood of nocturnal reflux OBJECTIVE Videofluoroscopic Swallow Evaluation (VFSE/MBSS) was conducted in the lateral projection by Speech-Language Pathologist, in collaboration with Radiologist, to evaluate oropharyngeal swallow function. Anatomic view under fluoroscopy: kyphotic posture noted PO Barium Contrast Trials Oral barium water-soluble contrast was administered as follows: IDDSI Level 0 Varibar thin liquid (40% w/v) IDDSI Level 2 Varibar nectar thick/mildly thick liquid (40% w/v) IDDSI Level 4 Varibar pudding/pureed/extremely thick (40% w/v) IDDSI Level 5 Minced/Moist Solid: Tsp minced pork coated in 3 mL Varibar pudding PHYSIOLOGIC FINDINGS Oral Phase Lip Closure: 2-Escape from interlabial space or lateral juncture; no extension beyond josep border Tongue Control: 0- Cohesive bolus between tongue to palatal seal Bolus Preparation/Mastication: 2- Disorganized chewing/mashing with solid pieces of bolus unchewed Bolus Transport/Lingual Motion: 2- Slowed tongue motion; 2 or less AP movements Oral residue: 1- Trace residue lining oral structures Location: tongue 3- Bolus head in pyriform sinus Pharyngeal Phase Velar Elevation: 1- Trace column of contrast or air between soft palate and pharyngeal wall Laryngeal Elevation:? 0- Complete superior movement of thyroid cartilage with complete approximation of arytenoids to epiglottic petiole Anterior Hyoid Excursion: 1- Partial anterior movement Epiglottic Movement:? 1- Partial? inversion Laryngeal Vestibule Closure: 1- Incomplete; narrow column of air/contrast in laryngeal vestibule Penetration occurs prior to initial swallow onset from current bolus Pharyngeal Stripping Wave:? 1- Present; diminished Pharyngeal Contraction: DNT; lack of AP view PES/UES Opening:? 0- Complete distension and complete duration; no obstruction of flow Tongue Base Retraction: 1- Trace column of contrast between tongue base and posterior pharyngeal wall Pharyngeal residue:? 1- Trace residue within or on pharyngeal structures Location: Diffuse [place] Pharyngeal Residue Severity Rating Scale (YPRS) (Marguerite, et al, 2015) Vallecula Residue Severity I None 0% No residue II Trace 1-5% Trace coating of the mucosa III Mild 5-25% Epiglottic ligament visible IV Moderate 25-50% Epiglottic ligament covered V Severe >50% Filled to epiglottic rim Pyriform Sinus Residue Severity I None 0% No residue II Trace 1-5% Trace coating of the mucosa III Mild 5-25% Up wall to quarter full IV Moderate 25-50% Up wall to half full V Severe >50% Filled to aryepiglottic fold] Esophageal Phase Esophageal Clearance Upright Position: Unable to rate objectively due to lack of A/P view, but do note during brief esophageal survey by radiologist in lateral view: mild retrograde flow in distal esophagus and mild proximal stasis of mildly thick liquid. NOTE: This study was performed for interpretation only of the oropharyngeal and pharyngoesophageal domains of swallowing. It is not intended to diagnose any other radiologic abnormalities or substitute for a formal esophagram study. Overall 8-Point Penetration-Aspiration Scale (PAS) (Rosenbek, et al, 1996) 1 - No material enters the airway. (puree & solid textures) 2 - Material enters the airway, remains above the vocal folds, and is ejected? from the airway. (Thin & Mildly Thick Liquids) 3 - Material enters the airway, remains above the vocal folds, and is not? ejected from the airway. 4 - Material enters the airway, contacts the vocal folds, and is ejected from the? airway. 5 - Material enters the airway, contacts the vocal folds, and is not ejected from? the airway. 6 - Material enters the airway, passes below the vocal folds, and is ejected into? the larynx or out of the airway. 7 - Material enters the airway, passes below the vocal folds, and is not ejected? from the trachea despite effort. 8 - Material enters the airway, passes below the vocal folds, and no effort is? made to eject. Trialed Compensatory Strategies & Outcome: Maneuvers Successful (+) Unsuccessful (-) Postures Successful (+) Unsuccessful (-) 3 second Preparatory Set? ?+/- Chin Tuck Posture? ? Cough? ? Posterior Head tilt? Reflexive? Cued? Throat Clear? ? Head Tilt to? Reflexive? Left? Cued? Right? ? Saliva swallow? ? Head Turn/Rotate to? ? Supraglottic Swallow? Left? ? Super-supraglottic Swallow? Right? ? Bolus Modifications Successful (+) Unsuccessful (-) Delivery/Alternating Consistencies ? Follow with Liquid Wash ? Follow with Solid Bolus? Delivery/Via Straw? ? Reduced Volume? ?+ Reduced Rate of Intake? ? Increased Viscosity? -? Other:?? ? Thank you for allowing us to take part in this patient's care. Please feel free to contact the [facility] Speech Language Pathology Department with any questions/concerns. Coding CPT Codes MOTION FLUOROSCOPY/SWALLOW - [id number] ([id number])
[2023-03-29 14:00] LABS: Procalcitonin < 0.1 ng/mL
[2023-03-29] MEDS: Barium Sulfate 81% w/w for Oral Suspension 148 GM BTL 70 GM PO (14:50)
[2023-03-29] MEDS: Barium Sulfate 40% W/V 240 ML BTL PO (14:51)
[2023-03-29] MEDS: Barium Sulfate Oral Paste 40% W/V 230 ML TUBE PO (14:52)
[2023-03-29 14:55] VITALS: BP 113/73; PULSE 97; RESP 18; TEMP 35.7; O2SAT 97
[2023-03-29 17:16] LABS: Anion Gap 9.8 mmol/L (3-11); BUN 45 mg/dL (7-18); CO2 25.2 mmol/L (21.0-32.0); CREATININE 1.2 mg/dL (0.70-1.30); Calcium 8.9 mg/dL (8.5-10.1); Chloride 101 mmol/L (98-107); Estimated GFR 64.25 (mL/min/1.73m2); Glucose 274 mg/dL (74-106); Potassium 4.3 mmol/L (3.5-5.1); Sodium 136 mmol/L (136-145)
[2023-03-29] MEDS: Mirtazapine 15 MG TAB 7.5 MG PO (20:08)
[2023-03-29] MEDS: Atorvastatin 10 MG TAB PO (20:09)
[2023-03-29] MEDS: Ferrous Gluconate 324 MG TAB PO (20:09)
[2023-03-29] MEDS: Senna TAB 1 TAB PO (20:09)
[2023-03-29 20:23] VITALS: BP 122/77; PULSE 106; RESP 16; TEMP 36.2; O2SAT 97
[2023-03-29] MEDS: Albuterol HFA 8 GM 60 PUFF INH IH (21:06)
[2023-03-29 23:05] LABS: Legionella Ag Detection Urine Negative (Negative)
[2023-03-29 23:59] LABS: Streptococcus Pneumoniae Ag, U Negative (Negative)
[2023-03-30] MEDS: AMPICILLIN/SULBACTAM 3 GM in Normal Saline 100 ML IVPB ×2 (06:01→11:20)
[2023-03-30 06:49] VITALS: BP 144/89; PULSE 66; RESP 18; TEMP 35.9; O2SAT 98
[2023-03-30 07:41] LABS: Anion Gap 10.3 mmol/L (3-11); BUN 46 mg/dL (7-18); CO2 25.7 mmol/L (21.0-32.0); CREATININE 0.9 mg/dL (0.70-1.30); Calcium 8.6 mg/dL (8.5-10.1); Chloride 107 mmol/L (98-107); Estimated GFR 90.74 (mL/min/1.73m2); Glucose 82 mg/dL (74-106); Magnesium 1.9 mg/dL (1.8-2.4); Potassium 3.9 mmol/L (3.5-5.1); Sodium 143 mmol/L (136-145)
[2023-03-30] MEDS: Acetaminophen 500 MG TAB 1000 MG PO (07:58)
[2023-03-30] MEDS: Ascorbic Acid 500 MG TAB PO (07:59)
[2023-03-30] MEDS: Cholecalciferol (Vitamin D3) 1,000 UNIT TAB 2000 UNITS PO (07:59)
[2023-03-30] MEDS: Pantoprazole 40 MG TABCR PO (08:00)
[2023-03-30] MEDS: predniSONE 20 MG TAB 40 MG PO (08:00)
[2023-03-30] MEDS: Polyethylene Glycol 3350 17 GM PACKET PO (08:00)
[2023-03-30] MEDS: Gabapentin 300 MG CAP PO (08:00)
[2023-03-30] MEDS: Multivitamin w/Minerals TAB 1 TAB PO (08:00)
[2023-03-30] MEDS: Spironolactone 25 MG TAB PO (08:00)
[2023-03-30] MEDS: Torsemide 20 MG TAB PO (08:01)
[2023-03-30] MEDS: Tiotropium/Olodaterol 10 PUFF INHALER 2 PUFF IH (08:02)
--- NOTE | 2023-03-30 09:38 | CMDISCH_ITS ---
Date of service: 03/30/23 Time of Service: 09:38 LACE Index Scoring Tool Questions: Length of Stay (in days): 4 - 6 Was the patient admitted via the E.D.?: Yes Comorbidities: Congestive Heart Failure and Chronic Pulmonary Disease E.D. Visits: 11 Answers: Total Score: 16 Risk of Readmission: High Risk Care Management Discharge Plan Reason for Hospitalization: Sepsis, Aspiration pneumonia, Acute Respiratory Failure, CPFE Discharge Plan: Ilia will go to [facility] today for supervisor intermediates care. He will transport via [email or web address] private vehicle, coordinated by CM. He will follow up with his PCP and discharge plan of care. Patient/Family Education Needs: Review discharge instructions and limitations, discussion of self care needs including ask me three. Services Needed at Discharge: Shelter Facility ([facility]) and Transportation ([facility] [[email or web address]
[2023-03-30 10:21] VITALS: O2SAT 98
[2023-03-30 10:58] VITALS: BP 107/69; PULSE 97; RESP 20; TEMP 36.3
[2023-03-30] MEDS: Normal Saline Flush 10 ML SYR IVP (11:21)
[2023-03-30] MEDS: Aspirin 81 MG CHEW 162 MG PO (11:21)
[2023-03-30] MEDS: Enoxaparin 40 MG/0.4 ML SYR SC (11:21)
[2023-03-30] MEDS: Ferrous Gluconate 324 MG TAB PO (11:21)
--- NOTE | 2023-03-30 12:04 | DSE_ITS ---
Date of service: 03/30/23 Time of Service: 12:04 DS: Diagnosis Discharge Diagnosis (1) Acute respiratory failure with hypoxia: Status: Acute Asessment and Plan: Patient presented emergency department initially with hypoxemia and tachycardia and was hypertensive not in acute shock with evidence of sepsis with elevated prolactin level as well as leukocytosis and elevated blood lactate. Patient was subsequently found to have bilateral lower lobe infiltrates consistent with aspiration pneumonia however CTA also showed evidence of a small persistent right-sided lung nodule which had been noted on prior CAT scans for which she did referred to pulmonary services but he never followed through. Unfortunately no blood cultures were obtained on admission we never were able to obtain a sputum culture nevertheless he was treated empirically with Unasyn and responded quite well to antibiotic therapy. However after being hospitalized for 24 hours she developed hypotension which was felt to be related to worsening right heart failure precipitated by the volume resuscitation was given on admission. Patient has underlying cor pulmonale due to his underlying COPD and emphysema and pulmonary fibrosis. Troponin levels were checked and he was ruled out for acute OH. Echocardiogram was performed and demonstrated moderate concentric LVH with no wall motion abnormalities he actually had hyperdynamic LV function with an EF greater than 65%. However he had mildly dilated RV with evidence of severe right-sided pressure and volume overload along with severely dilated right atrium and severe tricuspid regurgitation. He subsequently responded well to IV diuretics and his hypotension resolved. He was transition over to oral diuretics was able to be transferred out of the intensive care unit to the medical/surgical floor where he received further work-up of his dysphagia and generalized weakness and deconditioning. AIR INTERCEPT CONTROLLER was consulted and eventually had a modified barium swallow which confirmed stability of his previously known esophageal phase dysphagia. He had no grisel penetration during the modified barium swallow. It is recommended he continue to work with speech and language pathology at the [facility] and that he should be referred to GI for further evaluation with an EGD given his previous history of esophageal surgery esophageal cancer. Patient's diet should be minced and moist solids with thin liquids and supervised feedings the patient should be upright for 60 minutes in the chair after his meals and 30 minutes after medications. Please see AIR INTERCEPT CONTROLLER consult note from 03/29/2023 for details. Patient should be referred to pulmonology for further evaluation of his spiculated lung nodule that was seen in the right upper lobe. With regard to his right heart failure his diuretics will need to be adjusted based on his volume status and his electrolytes and renal function. Please repeat his BMP within the next week. His oral diuretics were decreased to 3 times a week every Tuesday taking torsemide 20 mg daily and spironolactone 25 mg daily on those days. (2) Recurrent aspiration pneumonia: Status: Acute (3) Combined pulmonary fibrosis and emphysema (CPFE): Status: Acute (4) Cardiogenic shock: Status: Acute (5) Right-sided congestive heart failure: Status: Acute (6) Lung nodule: Status: Acute (7) Pulmonary hypertension: (8) Afib: (9) CAD (coronary artery disease): Status: Chronic (10) Discharge planning issues: Status: Resolved (11) History of esophagectomy: Status: Acute Discharge Plan Disposition Patient Disposition: [facility] Facility(SNF) Condition: Improving Discharge Details Reason For Visit: Sepsis aspiration PNA Admit Date/Time: 03/24/23 01:46 Admit Provider: Trenton Goldman Attending Provider: Trenton Goldman Primary Care Provider: Silvina Perdue [facility] Hospital Course: 72-year-old former smoker with a history of COPD/pulmonary fibrosis/emphysema, chronic atrial fibrillation not anticoagulated secondary to remote GI bleeding, coronary artery disease, 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 Patient presented to the emergency department from home via EMS on 03/23/2023 in acute respiratory distress with hypoxemia, tachypnea and tachycardia but was not hypotensive on arrival. Work-up in the ED included CTA of his chest which showed no pulmonary embolism but demonstrated bibasilar infiltrates consistent with a diagnosis of aspiration pneumonia with evidence of sepsis with elevated procalcitonin level 0.2 and a blood lactate level of 2.5. Patient was given IV fluids and started on Unasyn however blood cultures were not obtained initially. Patient received large volume of fluid within the first 24 hours of the morning 3 L and subsequently developed hypotension necessitating further work-up which included echocardiogram and subsequent blood cultures. Blood culture 12/13/2022 came back no growth after 96 hours. Troponin I level on admission on 03/23/2023 was less than 50 but then was not repeated again until 03/25/2023 when the patient was suffering from severe hypotension. Serial troponins on 03/25/2023 came back negative at less than 50. However his proBNP which was elevated on admission at 2900 zenaida to as high as 3600 on 03/25/2023. Echocardiogram done on 03/25/2023 was technically limited study but showed small left ventricular chamber size with mild to moderate concentric LVH with an EF of greater than 65% with hyperdynamic movement of the left ventricular peng with no wall motion abnormalities. RV was dilated and mildly hypocontractile with findings consistent with right ventricular chamber volume and pressure overload. Right atrium is severely dilated and there is severe tricuspid regurgitation with an RVSP of 46 mmHg. Left atrium is mildly dilated. Aortic valve Calcifications without stenosis or regurgitation there is mild mitral valve leaflet thickening with just a trace of mitral vegetation. Patient responded to IV diuretics and was transitioned over to oral diuretics. Speech therapy consult was obtained to evaluate his dysphagia. After some delay he eventually got a modified barium swallow that was performed on 03/29/2023. Please see the speech and language pathologist note for details. In summary this demonstrated largely stable oropharyngeal swallow function compared to his prior exam. He appeared to have consistent flash penetration of thin and mildly thickened liquids prior to the swallow which demonstrated delayed pharyngeal onset. However no aspiration below the glottis was observed. Patient was largely able to clear penetrated material by swallow completion without need for further coughing or clearing of his throat to eject from his larynx. He showed good pharyngeal clearance of pur?ed and solid textures. Some distal esophageal retrograde flow was noted at the proximal esophageal stasis of mildly thickened liquids was noted on exam. He was deemed to be at high risk of aspiration especially with strict aspiration precautions or not followed. Staff and care givers were informed by his speech and language pathologist regarding strategies to prevent aspiration. His diet include minced and moist solids with thin liquids with his medications to be crushed and given. Foods. He is to remain bulb upright as tolerated preferably in a chair for all oral intake and remain upright for 60 minutes after meals. Oral hygiene is to be performed twice a day before and after oral intake for his infection to suppression all oral structures. Said to have supervision of all meals. He is to take small sips and bites when eating with slow rate of intake double swallowing between bites. He should avoid meals or snacks 2 to 3 hours prior to reclining or sleeping because of the increased risk for reflux and aspiration. Head of bed should remain elevated during sleep to reduce risk of nocturnal reflux. Patient work with physical therapy and was not dependent in his bed mobilities and transfers prn use of front wheel walker with full weightbearing with just standby assistance. Patient's hypoxemia resolved did not require supplemental oxygen even with ambulation. Patient continues to require further physical therapy to improve his gait strength and endurance. Patient should follow-up with AIR INTERCEPT CONTROLLER at the [facility] for further monitoring and treatment of his dysphagia. The AIR INTERCEPT CONTROLLER at [facility] did recommend patient be referred to GI be considered for an EGD to evaluate his reflux particular given his prior history of esophageal cancer. I did have to reduce the frequency of his diuretics because he was developing some prerenal azotemia at the time of discharge. On the day of discharge his BUN was up to 46 but his creatinine remains normal at 0.9. His electrolytes are within normal limits with a magnesium of 1.9 and potassium 3.9. It is recommended that his torsemide and spironolactone be decreased to 3 times a week with a follow-up BMP within the next week. There is atrial fibrillation his rate was well controlled with metoprolol. He had been switched to Toprol-XL but because of the inability to crush the pills this has been changed back to Lopressor 25 mg twice daily. Anticoagulants were not prescribed because of his prior history of GI bleeding. Of note his CT scan from 03/23/2023 again showed a suspicious 0.9 cm area of spiculation in the anterior aspect of his right upper lobe and therefore he will need follow-up with pulmonary to evaluate for potential malignancy. Home Meds and New Rx's Prescriptions: New torsemide 20 mg Tablet See Rx Instructions .ROUTE .COMPLEX Qty: 0 0RF Rx Instructions: 20 mg orally daily on Mon, Wed, Fri spironolactone 25 mg Tablet See Rx Instructions .ROUTE .COMPLEX Qty: 0 0RF Rx Instructions: 25 mg orally daily every Mon, Wed, Fri metoprolol tartrate [Lopressor] 50 mg tablet 25 mg PO BID Qty: 1 0RF Continued Boost Breeze Nutritional 0.04-1.05 gram-kcal/mL liquid 50 ml PO BID guaifenesin [Robafen] 100 mg/5 mL liquid 200 mg PO Q4H PRN aspirin 81 mg capsule 162 mg PO DAILY sennosides [Senokot] 8.6 mg tablet 17.2 mg PO HS albuterol sulfate 90 mcg/actuation HFA aerosol inhaler 2 puff inhalation Q4H PRN loperamide 2 mg capsule 4 mg PO .COMPLEX PRN Rx Instructions: 4 mg orally after first loose stool, then 1 capsule after subsequent loose stools. Maximum daily dose is 16mg PRN; gabapentin 300 mg capsule 300 mg PO TID Patient Comments: Take 1 capsule by mouth three times a day ascorbic acid (vitamin C) [Vitamin C] 500 mg tablet 500 mg PO 1XD Patient Comments: Take 1 tablet by mouth every other day take with iron pantoprazole 40 mg tablet,delayed release (DR/EC) 40 mg PO 1XD Patient Comments: Take 1 tablet by mouth once a day One Daily Multi-Vit w-Mineral 4.5 mg iron tablet 1 tab PO DAILY cholecalciferol (vitamin D3) 50 mcg (2,000 unit) tablet 50 mcg PO DAILY tamsulosin 0.4 mg capsule 0.4 mg PO HS Stiolto Respimat 2.5-2.5 mcg/actuation mist 2 puff INHALATION DAILY atorvastatin 10 mg tablet 10 mg PO HS ferrous gluconate 324 mg (38 mg iron) Tablet 324 mg PO BID@1000,2200 Qty: 0 0RF mirtazapine 7.5 mg tablet 7.5 mg PO HS Qty: 0 0RF Patient Comments: Take 1 tablet by mouth at bedtime Changed polyethylene glycol 3350 17 gram powder in packet 17 g PO DAILY PRN PRNQty: 0 0RF acetaminophen 500 mg Tablet 1,000 mg PO TID PRN PRNQty: 0 0RF Discontinued metoprolol succinate 25 mg Tablet Extended Release 24 Hr 25 mg PO BID Qty: 0 0RF Rx Instructions: hold for SBP<100 or HR<60 Discharge Instructions Instructions: Aspiration Precautions (DC) Additional Instructions: DIET: ? SOLIDS: 5-Minced & Moist Solids LIQUIDS: 0-Thin Liquids MEDICATIONS: Whole vs crushed in L4 puree (applesauce, pudding, ice cream) RISK MANAGEMENT: HOB bolt upright as tolerated or up to chair; upright for all PO intake. REMAIN UPRIGHT FOR AT LEAST 60 MIN AFTER MEALS Encourage physical mobility as tolerated. Oral hygiene BID & before/after PO intake using friction with toothbrush on all oral structures as tolerated Level of Assistance/Supervision: Distant supervision for all PO intake (25% of meal) with multiple initial reminders for small sip size. PO intake only when awake/alert? Strategies/Adaptations/Assistive Equipment: Small sips and bites when eating Slow rate of intake Swallow between bites Posture/Positioning Needs: Maintain upright position at least 60 minutes after meals Avoid meals/snacks 2-3 hours prior to reclining/sleeping Sleep with head of bed elevated to reduce likelihood of nocturnal reflux Discharge: Will likely benefit from AIR INTERCEPT CONTROLLER vs SNF/LTC AIR INTERCEPT CONTROLLER services at discharge with focus on caregiver education to ensure aspiration precautions are implemented. Suggested Referrals: Gastroenterology Recommended Procedures: consider EGD/barium swallow Stand Alone Forms: Nursing Discharge Form Referrals: Silvina Perdue MD [Primary Care Provider] - 04/11/23 4:00 pm Activity:: Activity as Tolerated Equipment/Supplies:: No Equipment Needed Diet:: see AIR INTERCEPT CONTROLLER consult 03/29 Discharge Orders Discharge Orders: Discharge Order (Routine); Ordered 03/30/23 Ordered By: Darrick Monroe Discharge Data Discharge Date/Time-TO BE ENTERED AT DEPARTURE: 03/30/23 12:03 DS: Summary Time Spent with Patient providing and/or coordinating discharge services: Greater than 30 minutes (Interview/exam of patient; review of discharge instructions, completion of prescriptions/discharge instructions; discussion w/ nursing and CM; documentation of hospital visit) Status at Discharge Functional status at discharge: uses cane/walker Overall status at discharge: patient is back to baseline Mental Status: mental status grossly normal Speech and Movement: speech and movement normal Mood: congruent mood Affect: normal affect Exam Narrative Exam Narrative: Kyphyotic elderly white male sitting up in his chair, watching TV, no acute distress Lungs: prolonged expiratory phase but otherwise clear Heart: irregularly irregular, at controlled rate Abdomen: scaphoid, soft, nontender Legs; no pitting pedal/pretibial edema Psych Mental Status: mental status grossly normal Speech and Movement: speech and movement normal Mood: congruent mood Affect: normal affect DS: Data Vitals/I&O Vitals and I&O: Vital Signs Temperature 36.3 C L 03/30/23 10:58 Temperature Source Tympanic 03/30/23 10:58 Pulse 97 H 03/30/23 10:58 Pulse Rhythm Irregular 03/30/23 10:14 Pulse 88 03/26/23 18:07 Respiratory Rate 20 03/30/23 10:58 Respiratory Effort Normal, Non-Labored 03/30/23 10:14 Respiratory Depth Normal 03/30/23 10:14 Respiratory Pattern Normal 03/30/23 10:14 Blood Pressure 107/69 03/30/23 10:58 Blood Pressure Mean 98 03/26/23 18:07 Blood Pressure Position Sitting 03/26/23 03:58 Pulse Oximetry 98 03/30/23 10:21 Oxygen Delivery Method Room Air 03/30/23 10:21 Oxygen Flow Rate 0 03/30/23 10:21 Pain Level 0 03/30/23 10:58 Comment Pt. denies pain at this time. 03/29/23 11:05 Intake & Output 03/29/23 03/30/23 03/30/23 23:59 11:59 23:59 Intake Total 243.333 / 730.000 650 / 650 Output Total 550 / 1100 200 / 200 Balance -306.667 / -370.000 450 / 450 Intake: IV 243.333 / 370.000 200 / 200 Oral 450 / 450 Output: Urine 550 / 1100 200 / 200 Other: Urine Color Yellow Yellow Urine Appearance Clear Clear Urine Odor Sweet None Comment Void x1 in the urinal. Stool Size Small Stool Characteristics Soft Voiding Methods Urinal Diaper Incontinent Data Completed and Pending Labs on day of discharge: Labs from last 24 hours 03/30/23 03/29/23 03/29/23 06:14 16:55 07:03 Sodium 143 136 Potassium 3.9 4.3 Chloride 107 101 Carbon Dioxide 25.7 25.2 Anion Gap 10.3 9.8 BUN 46 H 45 H Creatinine 0.9 1.2 Est GFR (CKD-EPI 2020) 90.74 64.25 Glucose 82 274 H Calcium 8.6 8.9 Magnesium 1.9 Procalcitonin < 0.1 Add-On Test Request DONE Preliminary micro results at discharge 03/25/23 18:02 Blood Culture - Preliminary Blood NO GROWTH 96 HOURS 03/25/23 17:56 Blood Culture - Preliminary Blood NO GROWTH 96 HOURS Additional Comments Additional comments: In light of his repeated normal procalcitonin levels, normal WBC and resolution of his acute hypoxemia and clearing lung exam, I think his Unasyn has been completed and he does not need further oral antibiotics upon discharge. Also he is getting a little azotemic so I am reducing his diuretics to 3 x per week rather than daily torsemide and spironolactone. he should have repeat BMP in the next week. PFSH All Active Problems (Updated 03/30/23 @ 12:28 by Darrick Monroe MD) Lung nodule (Acute) Right-sided congestive heart failure (Acute) Cardiogenic shock (Acute) History of esophagectomy (Acute) Aspiration pneumonia (Acute) Hypoxemia (Acute) HTN (hypertension) (Chronic) 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) Acute respiratory failure with hypoxia (Acute) Sepsis (Acute) Recurrent pneumonia (Acute) Pneumonia (Acute) Hypoxemia (Acute) Borderline hyperglycemia (Acute) Recurrent aspiration pneumonia (Acute) COPD exacerbation (Acute) Pneumonia (Acute) COPD exacerbation (Acute) Shortness of breath (Acute) Lung mass (Acute) Elevated troponin (Acute) Hypotension (Acute) DNR (do not resuscitate) (Acute) Acute bronchitis (Acute) Left foot pain (Acute) Palliative care patient (Acute) Underweight (Acute) Diastolic heart failure (Chronic) Closed intertrochanteric fracture of left femur (Acute) s/p IMN fixation (08/28/22) Fall (Acute) Blunt head trauma (Acute) Contusion of elbow, left (Acute) Contusion of left leg (Acute) Closed fracture of left hip (Acute) Mild cognitive impairment (Acute) Advanced care planning/counseling discussion (Acute) Literacy level of illiterate (Acute) Palliative care encounter (Acute) Acute on chronic right-sided congestive heart failure (Chronic) Pneumonia (Acute) Depression (Chronic) Dental abscess (Acute) 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) Abnormal chest CT (Acute) Full code status (Acute) Urinary retention (Chronic) 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) CAP (community acquired pneumonia) (Acute) Generalized weakness (Acute) Skin tear of left elbow without complication (Acute) Chronic obstructive lung disease (Chronic) Tricuspid regurgitation (Chronic) CAD (coronary artery disease) (Chronic) Hypertension (Chronic) Medical History Aspiration pneumonia History of fracture of left hip S/P IM NAIL DOS: 08/28/22 Closed intertrochanteric fracture Poor hygiene Fall H/O malignant neoplasm of stomach Alcohol abuse, continuous drinking behavior Low back pain Edema Tinnitus, left Kyphoscoliosis Protein malnutrition Anemia Heart failure, left, with LVEF 41-49% Hoarseness CAD (coronary artery disease) of artery bypass graft Prediabetes Recent weight loss Abnormal radiologic findings on diagnostic imaging of renal pelvis, ureter, or bladder Acute on chronic anemia Acute on chronic systolic CHF (congestive heart failure) CHF, acute on chronic Hypophosphatemia Failure to thrive GI bleeding Malnutrition Rib fractures COVID-19 COVID-19 Abdominal pain Shortness of breath Mild bibasilar atelectasis History of GI bleed Confusion state Pulmonary hypertension Bilateral lower extremity edema Acute on chronic diastolic (congestive) heart failure Encounter for colorectal cancer screening Hydrocele, right (01/23/16) Epididymitis, right (08/02/16) Weight loss GI bleed GERD (gastroesophageal reflux disease) Adenocarcinoma of esophagus From [facility] [place]:Hx GI Cancer...EGD 04/2021 with friable mucosa. SDOne at that time because of GI blooed Solitary pulmonary nodule Difficulty reading Tobacco abuse Pancreatitis Hyperlipidemia Afib Alcohol abuse Diabetes mellitus Essential hypertension Cerumen impaction Surgical History H/O colonoscopy (04/14/18) dr geller, sigmoid diverticulosis, repeat 10 years History of right inguinal hernia repair repair times two History of hydrocelectomy H/O colonoscopy (2007) History of esophagogastroduodenoscopy (EGD) (09/2017) sugrical flap of unhealing wound cardiac cath Esophagectomy EGD - IV Sedation Coronary Artery Bypass Gaft (CABG) Family History Mother No problems noted. Father No problems noted. Social History Smoking/Tobacco Use Status: Former Tobacco Use Quit Date: 03/06/20 Smoking risk assessment performed?: Yes Alcohol Intake: former Drug use: Never Substance use type: does not use Housing: apartment Current gender identity: male What type of physical activity do you participate in: none Do you feel safe at home: Yes Do you feel safe in your relationship?: Yes Time Spent with Patient Time Spent with Patient: 70-84 minutes4 Time was spent: preparing to see the patient(eg.review tests), ordering medications,tests, procedures, referring, communicating with other health child care, indepentently interpreting results, counseling the patient and care coordination
--- NOTE | 2023-03-31 15:02 | PT.INDS ---
PT Notes Visit Reasons: Sepsis aspiration PNA Inpatient Physical Therapy Discharge Summary Dates of Service: 03/28/23 - 03/30/23 Referring Doctor: Kassandra Esparza PT Orders: PT CONSULT: limited ability to ambulate Precautions: fall, standard This document serves as a summary of care. No PT services were provided on this date. Patient Profile/Admitting Diagnosis: Ilia is a 72-year-old male past history of pulmonary fibrosis with emphysema, CAD s/p CABG, CHF, a-fib, and multiple recent hospitalization for recurrent PNA who presented to the ED with complaints of an elevated HR. He was found to be septic, with recurrent aspiration pneumonia. Had recently returned home after a stay at [facility]. Patient was seen for 4 sessions of PT intervention over the course of 3 days. He demonstrated continued limitations in independence and mobility, and required transition to terminal block assembler care facility. Social History/Home Situation: Patient provides limited history. Sounds to have recently returned home from [facility]. States he uses a walker sometimes. Has a full flight of stairs to enter his home. Equipment Owned/DME: unable to ascertain Subjective: none Objective: ROM: Right Upper Extremity: Shoulder flexion to 120*. Elbow and wrist motion WFL. Left Upper Extremity: Shoulder flexion to 120*. Elbow and wrist motion WFL. Right Lower Extremity: grossly WFL Left Lower Extremity: grossly WFL Strength: Right Upper Extremity: Shoulder flexion 3-/5. Biceps 4-/5. Triceps 3+/5. Left Upper Extremity: Shoulder flexion 3-/5. Biceps 4-/5. Triceps 3+/5. Right Lower Extremity: Hip flexion 4/5. Quads 4-/5. HS 4-/5 Ankle DF 4/5. Left Lower Extremity: Hip flexion 4/5. Quads 4/5. HS 4-/5 Ankle DF 4/5. BED MOBILITY/TRANSFERS? Rolling L/R: independent Supine-sit: independent ? Sit-supine: independent ? Sit-stand: independent ? Stand-sit: independent ? Bed-Chair: SBA ? Chair-bed: SBA Ambulation ? Assistive Device: FWW? Weight bearing: full Assist: SBA ? Distance:?25 feet AFTERNOON: 20 feet, seated rest x3 ? ? Balance: Static Sitting: normal Dynamic Sitting: normal Static Standing: fair Dynamic Standing: fair 4-Position Balance Test: 0/4 Small RAVI: 4 seconds Partial Tandem: 0 seconds Full Tandem: 0 seconds Single Leg Stance: 0 second Assessment: Patient is a 72 year old male referred to physical therapy services with the diagnosis of limited ability to ambulate. Patient presented with clinical signs and symptoms consistent with diagnosis, with diminished mobility due to acute medical issues. He was seen for 4 sessions of PT intervention over the course of 3 days. He demonstrated continued limitations in independence and mobility, and required transition to [facility] care facility. Goals: Goals X1 week 1. Supine-Sit : supervision (MET) 2. Sit-Supine : supervision (MET) 3. Sit-Stand : supervision(MET) 4. Stand-Sit : supervision (MET) 5. Bed-Chair : supervision with FWW (MET) 6. Chair-Bed : supervision with FWW (MET) 7. Gait : supervision with FWW x 50' (MET) 8. Stairs : ascend and descend with single rail, SBA (NOT MET) Plan of Care/Treatment Plan: D/C from PT services in acute care setting. Transition to terminal block assembler care facility. DISCHARGE RECOMMENDATIONS: LTC TREATMENT CODE/TIME: none Iram Mcgee, PT, DPT [facility]
== END 2023-03-30 12:03 | disposition skilled nursing facility (03) | DRG 871 ==
LOC: ER 03-24 02:01 → MS 03-24 02:05 → ICU 03-25 14:35 → MS 03-26 20:22
PROVIDERS: Internal Medicine; Nurse Practitioner Acute Care; Admitting Provider Family Medicine; Emergency Provider Student in an Organized Health Care Education/Training Program; PCP Family Medicine; Visit Provider Family Medicine
DX: A41.9 Sepsis, unspecified organism (principal); J69.0 Pneumonitis due to inhalation of food and vomit; J96.01 Acute respiratory failure with hypoxia; R57.0 Cardiogenic shock; Z68.1 Body mass index [BMI] 19.9 or less, adult; I50.32 Chronic diastolic (congestive) heart failure; R65.20 Severe sepsis without septic shock; J84.10 Pulmonary fibrosis, unspecified; Z66 Do not resuscitate; I48.91 Unspecified atrial fibrillation; I25.10 Atherosclerotic heart disease of native coronary artery without angina pectoris; Z95.1 Presence of aortocoronary bypass graft; R63.4 Abnormal weight loss; Z79.899 Other long term (current) drug therapy; R91.8 Other nonspecific abnormal finding of lung field; G31.84 Mild cognitive impairment of uncertain or unknown etiology; Z55.0 Illiteracy and low-level literacy; F32.A Depression, unspecified; F10.21 Alcohol dependence, in remission; R33.9 Retention of urine, unspecified; I11.0 Hypertensive heart disease with heart failure; I07.1 Rheumatic tricuspid insufficiency; R53.1 Weakness; D64.9 Anemia, unspecified; E11.9 Type 2 diabetes mellitus without complications; K21.9 Gastro-esophageal reflux disease without esophagitis; Z85.028 Personal history of other malignant neoplasm of stomach; E78.5 Hyperlipidemia, unspecified; M54.50 Low back pain, unspecified; Z90.49 Acquired absence of other specified parts of digestive tract; J43.8 Other emphysema; I27.81 Cor pulmonale (chronic); I50.813 Acute on chronic right heart failure; R13.14 Dysphagia, pharyngoesophageal phase
CPT/HCPCS: 00123; 36415; 80048; 80053; 82805; 84145; 85027; 87040; 87449; 87637; 92526; 92610; 93005; 93306; 94640; 96361; 96365; 96366; 96367; 96372; 96375; 96376; 97110; 97161; 99285; J1650; 71045; 71260; 74221; 81003; 81015; 83605; 83735; 83880; 84443; 84484; 85025; 85610; 85730; 87086; 87899; 93010; 94664; 94667; 94668; 94760; 99223; 99232; 99233; 99239; 99291; J0295; J1941; J3490; J7512

== ENCOUNTER 2023-03-31 21:10 | Outpatient (REF) | payer MEDICARE, MEDICAID, SELFPAY ==
[2023-03-31 22:18] LABS: Absolute Basophil Count 0.04 10^3/uL (0.0-0.2); Absolute Eosinophil Count 0.11 10^3/uL (0.0-0.7); Absolute Neutrophil Count 15.52 10^3/uL (1.2-6.7); Basophils % 0.2; Eosinophils % 0.6; HCT 39.3 % (40.0-50.0); HGB 12.7 g/dL (13.5-17.5); Immature Grans % 2.2; Lymphocytes % 4.9; MCH 30.8 pg (27.0-33.0); MCHC 32.3 % (32.0-36.0); MCV 95 fL (80-95); MPV 10.6 fL (8.0-11.0); Monocytes % 7.2; Neutrophils % 84.9; Platelet Count 253 10^3/uL (130-400); RBC 4.12 10^6/uL (4.36-5.78); RDW 14.8 % (11.8-14.1); RDW-SD 51.1 fL; WBC 18.28 10^3/uL (4.4-10.8)
[2023-03-31 22:21] LABS: Absolute Monocyte Count 1.32 10^3/uL (0.1-0.8)
[2023-03-31 22:24] LABS: Anion Gap 10.3 mmol/L (3-11); BUN 41 mg/dL (7-18); CO2 24.7 mmol/L (21.0-32.0); CREATININE 0.9 mg/dL (0.70-1.30); Calcium 8.8 mg/dL (8.5-10.1); Chloride 108 mmol/L (98-107); Estimated GFR 90.74 (mL/min/1.73m2); Glucose 135 mg/dL (74-106); Potassium 3.8 mmol/L (3.5-5.1); Sodium 143 mmol/L (136-145)
== END 2023-03-31 21:11 | disposition home or self-care (01) ==
LOC: NCHCN 21:10
PROVIDERS: PCP Family Medicine; Visit Provider Family Medicine
DX: I10 Essential (primary) hypertension (principal); E46 Unspecified protein-calorie malnutrition; I27.20 Pulmonary hypertension, unspecified
CPT/HCPCS: 80048; 85025

== ENCOUNTER 2023-07-28 14:45 | Outpatient (REF) | payer MEDICARE, MEDICAID, SELFPAY ==
[2023-07-28 15:03] LABS: Anion Gap 11.8 mmol/L (3-11); BUN 43 mg/dL (7-18); CO2 23.2 mmol/L (21.0-32.0); Calcium 9.4 mg/dL (8.5-10.1); Chloride 103 mmol/L (98-107); Estimated GFR 79.97 (mL/min/1.73m2); Glucose 88 mg/dL (74-106); Potassium 4.3 mmol/L (3.5-5.1); Sodium 138 mmol/L (136-145)
== END 2023-07-28 14:46 | disposition home or self-care (01) ==
LOC: LBN 14:45
PROVIDERS: PCP Family Medicine; Referring Provider Family Medicine; Visit Provider Family Medicine
DX: I10 Essential (primary) hypertension (principal); I48.91 Unspecified atrial fibrillation; J44.9 Chronic obstructive pulmonary disease, unspecified
CPT/HCPCS: 80048

== ENCOUNTER → 2023-10-17 13:19 | Outpatient (BNVA) | payer MEDICARE, MEDICAID, SELFPAY | PROVIDERS: PCP Family Medicine; Referring Provider Family Medicine; Visit Provider Internal Medicine Cardiovascular Disease | DX: I50.813 Acute on chronic right heart failure (principal); I25.10 Atherosclerotic heart disease of native coronary artery without angina pectoris; I48.11 Longstanding persistent atrial fibrillation | CPT/HCPCS: 99213 ==

== ENCOUNTER 2024-04-02 21:40 | Outpatient (REF) | payer MEDICARE, MEDICAID, SELFPAY ==
[2024-04-02 19:33] LABS: Abs Immature Grans 0.03 10^3/uL (0.0-0.06); Absolute Basophil Count 0.04 10^3/uL (0.0-0.2); Absolute Eosinophil Count 0.12 10^3/uL (0.0-0.7); Absolute Lymphocyte Count 0.77 10^3/uL (1.2-3.4); Absolute Monocyte Count 0.67 10^3/uL (0.1-0.8); Basophils % 0.4 %; Eosinophils % 1.1 %; HCT 43.7 % (40.0-50.0); HGB 13.9 g/dL (13.5-17.5); Immature Grans % 0.3 %; Lymphocytes % 7.1 %; MCH 30.5 pg (27.0-33.0); MCHC 31.8 % (32.0-36.0); MCV 96 fL (80-95); MPV 9.7 fL (8.0-11.0); Monocytes % 6.2 %; Neutrophils % 84.9 %; Platelet Count 255 10^3/uL (130-400); RBC 4.56 10^6/uL (4.36-5.78); RDW 17.9 % (11.8-14.1); RDW-SD 62.1 fL; WBC 10.87 10^3/uL (4.4-10.8)
[2024-04-02 19:38] LABS: Absolute Neutrophil Count 9.23 10^3/uL (1.2-6.7)
[2024-04-02 19:54] LABS: ALT 11 U/L (16-63); AST 16 U/L (15-37); Albumin 3.5 g/dL (3.4-5.0); Alkaline Phosphatase 186 U/L (46-116); Anion Gap 12.8 mmol/L (3-11); BUN 20 mg/dL (7-18); Bilirubin, Total 1.12 mg/dL (0.2-1.0); CO2 24.2 mmol/L (21.0-32.0); CREATININE 0.8 mg/dL (0.70-1.30); Calcium 9.6 mg/dL (8.5-10.1); Chloride 105 mmol/L (98-107); Estimated GFR 93.45 (mL/min/1.73m2); Glucose 95 mg/dL (74-106); Potassium 4.1 mmol/L (3.5-5.1); Sodium 142 mmol/L (136-145); Total Protein 7.6 g/dL (6.4-8.2)
[2024-04-02 20:27] LABS: Hemoglobin A1C 5.6 % (<5.7)
--- OUTSIDE RECORDS SUMMARY | 2024-04-02 21:44 | XMS_ITS | Encounter Summary ---
Author Organization [facility] [place] [address] Care Team Providers Care Salesperson Neckties Name Role Phone Silvina Perdue MD Primary Care Provider [phone] Reason for Referral * Diagnostic Test (Routine) - Closed Specialty Diagnoses / Procedures Referred By Contac t Referred To Contact Cardiology Diagnoses Congestive heart failure, unspecified HF chronicity, unspecified heart failure type Procedures Mobile Echo Shakila Mayberry MD [address] [place] [address] [facility] [place] [address] Referral ID Status Reason Start Date Expiration Date V isits Requested Visits Authorized [id number] Closed Specialty Service Requested 06/24/2021 06/24/2022 1 1 Reason for Visit * Diagnostic Test (Routine) - Closed Specialty Diagnoses / Procedures Referred By Contac t Referred To Contact Cardiology Diagnoses Congestive heart failure, unspecified HF chronicity, unspecified heart failure type Procedures Mobile Shakila Berkowitz MD [address] [place] [address] [facility] [place] [address] Referral ID Status Reason Start Date Expiration Date V isits Requested Visits Authorized [id number] Closed Specialty Service Requested 06/24/2021 06/24/2022 1 1 Encounter Details Date Type Department Care Team (Latest Contact Info) Description 06/24/2021 12:20 PM EST - 06/24/2021 11:59 PM EST Hospital Encounter [place] [address] Shakila Mayberry MD [address] [place] [id number] Congestive heart failure, unspecified HF chronicity, unspecified heart failure type Discharge Disposition: Home Social History Tobacco Use Types Packs/Day Years Used Date Smoking Tobacco: Former Cigarettes Smokeless Tobacco: Never Alcohol Use Standard Drinks/Week Comments Yes 20 (1 standard drink = 0.6 oz pu re alcohol) Sex and Gender Information Value Date Recorded Sex Assigned at Not on file Gender Identity Not on file Sexual Orientation Not on file documented as of this encounter Medications at Time of Discharge Medication Sig Dispensed Refills Start Date End Date pantoprazole EC (Protonix) 40 mg Tablet, Delayed Release (E.C.) Take 1 tablet by mouth 2 times daily. 90 tablet 04/16/2021 clotrimazole (MYCELEX) 10 mg Konrad Dissolve one in mouth three times daily after brushing teeth after each meal 90 tablet 03/09/2018 methyl salicylate-menthol (BENGAY) 15-10 % Cream Apply 1 Application topically 2 times daily. 30 g 09/20/2017 nicotine (NICODERM CQ) 21 mg/[address] 1 patch onto the skin daily. 28 patch 09/21/2017 metoprolol tartrate (LOPRESSOR) 25 mg Tablet Take 0.5 tablets by mouth 2 times daily. 30 tablet 3 09/20/2017 buPROPion (WELLBUTRIN SR OR ZYBAN) 150 mg Tablet Sustained Release 12 hr Take 1 tablet by mouth 2 times daily. 60 tablet 3 09/20/2017 thiamine (THIAMINE) Take 1 tablet by mouth daily. 30 tablet 3 09/20/2017 atorvastatin (LIPITOR) 10 mg Tablet Take 10 mg by mouth daily. 0 06/28/2017 cholecalciferol, Vitamin D3, 2,000 unit Tablet Take 2,000 Units by mouth daily. 0 06/28/2017 furosemide (LASIX) 40 mg Tablet Take 40 mg by mouth See Admin Instructions. 80mg in the morning, 40mg at noon 0 07/18/2017 gabapentin (NEURONTIN) 300 mg Capsule Take 300 mg by mouth 3 times daily. 0 05/23/2017 HYDROcodone-acetaminop hen (NORCO) 10-325 mg Tablet Take 1 tablet by mouth 2 times daily. 0 09/12/2017 SPIRIVA WITH HANDIHALER 18 mcg Capsule, w/Inhalation Device Inhale 18 mcg into the lungs daily. 0 09/10/2017 folic acid (FOLVITE) 1 mg tablet 1mg, PO, QD 10/03/2009 albuterol-ipratropium (COMBIVENT) 18-103 mcg/Actuation inhaler 10/03/2009 Ferrous Sulfate 325 mg (65 mg Iron) CpSR 10/03/2009 metFORMIN (GLUCOPHAGE) 500 mg tablet 10/03/2009 nitroGLYcerin (NITROSTAT) 0.4 mg SL tablet 10/03/2009 documented as of this encounter Plan of Treatment Not on file documented as of this encounter Procedures Procedure Name Priority Date/Time Associated Diagnosis Comments ECHO COMPLETE Routine 06/24/2021 12:53 PM EST Congestive heart failure, unspecified HF chronicity, unspecified heart failure type documented in this encounter Results * ECHO COMPLETE (06/24/2021 12:53 PM EST) EF 60 HEARTLAB SYSTEM Anatomical Region Laterality Modality Other 06/24/2021 Narrative 06/24/2021 1:07 PM EST Procedure: ?Transthoracic Echocardiogram Patient: ?Jorge Luis Whelan ?? (Age): 1950(70y) Med Rec#: ? [id number] ?Sex: ?M ? Site Loc: ? [facility] ??Ht / Wt: ??167.64(cm)/58.9 Pt. Loc: ?Adult Floor ? BSA: ?1.67 Study Date: ?? 06/24/2021 ?Pt. Type: Inpatient Tape: ? Referring: NERI Reading: Rock Amaya ([id number]) Barrel Waterer: SHAHZAD Barrel Waterer: SHAHZAD Diagnosis: *Heart failure, unspecified (I50.9) BP: ? 96/63 SUMMARY: 1. Mild concentric left ventricular hypertrophy is observed. There is normal global left ventricular systolic function with an EF of 60% and no wall motion abnormalities. 2. The right ventricle is moderately dilated. Right ventricular global systolic function is normal. The estimated pulmonary artery systolic pressure is elevated at 45 mmHg. 3. There is moderate to severe (3+/4+) tricuspid regurgitation present. 4. The pericardium appears normal and there is no evidence of a pericardial effusion. Findings ? : Left Ventricle: ? The left ventricular chamber size is normal. ?Mild concentric left ventricular hypertrophy is observed. ?There is no evidence of LVOT obstruction. ?There is normal global left ventricular systolic function. ??Ejection fraction is estimated to be 60%. ?There are no left ventricular segmental wall motion abnormalities. Left Atrium: ? The left atrium is mildly dilated. Right Ventricle: ? The right ventricle is moderately dilated. ?Right ventricular global systolic function is normal. ?There is evidence of mild pulmonary hypertension. ?The estimated pulmonary artery systolic pressure is 45 mmHg. ?The estimated right atrial pressure is 3 mmHg. Right Atrium: ? The right atrium is severely dilated. Aortic Valve: ? The aortic valve is tricuspid. ?The aortic valve leaflets are mildly thickened. ?Systolic excursion of the aortic valve is normal. ?There is no evidence of aortic valve stenosis. ?There is no evidence of aortic regurgitation. Mitral Valve: ? The mitral valve leaflets are mildly thickened. ?There is mitral annular calcification. ?There is no evidence of mitral stenosis. ?There is mild (1+/4+) mitral regurgitation present. Tricuspid Valve: ? The tricuspid valve leaflets are morphologically normal. ?There is moderate to severe (3+/4+) tricuspid regurgitation present. Pulmonic Valve: ? The pulmonic valve appears normal in structure and function. ?There is mild (1+/4+) pulmonic regurgitation present. Pericardium: ? The pericardium appears normal and there is no evidence of a pericardial effusion. Aorta: ? The ascending aorta was not well visualized. Misc: ? Two-dimensional echo, spectral Doppler and color Doppler performed. Chambers 2D ?Value ?Units (Range) ? IVSd (2D) ? 1.2 ?cm ? LVPWd (2D) ?1.22 ? cm ? IVS:LVPW ratio (2D) 0.98 ? ratio ? RWT (2D) ?0.65 ? ratio ? RWT PW (2D) ? 0.65 ? ratio ? LVIDd (2D) ?3.73 ? cm ? LVIDs (2D) ?2.9 ?cm ? LVIDd (2D) index ?2.24 ? cm/m2 ? LVIDs (2D) index ?1.74 ? cm/m2 ? LV FS (2D) ?22.35 ?% ? EF Teichholz (2D) ?? 45.81 ?% ? Volumes/Mass ?Value ?Units (Range) ? LA ESV BP (A/L) inde42.78 ?ml/m2 ? LA ESV BP (MOD) inde40.49 ?ml/m2 ? LV ESV SP 4CH (MOD) 31.65 ?ml ? LV ESV SP 2CH (MOD) 23.13 ?ml ? LV EDV BP ? 50.22 ?ml ? LV ESV BP ? 27.37 ?ml ? LV EDV BP index ? 30.15 ?ml/m2 ? LV ESV BP index ? 16.43 ?ml/m2 ? BP EF (MOD) ? 45.5 ? % ? LV mass (2D) ?151.06 ? g ? LV mass (2D) index ??90.69 ?g/m2 ? Diastolic/Systolic Function ?Value ?Units (Range) ? MV E-wave Vmax ?1.23 ? m/sec ? MV deceleration time87.35 ?msec ? Aortic Valve ?Value ?Units (Range) ? AV Vmax ? 0.93 ? m/sec ? AV VTI ?19.4 ? cm ? AV peak gradient ?3.45 ? mmHg ? AV mean gradient ?1.85 ? mmHg ? LVOT diameter ? 1.89 ? cm ? LVOT Vmax ? 0.73 ? m/sec ? LVOT VTI ?14.65 ?cm ? LVOT peak gradient ??53 ? mmHg ? DOI (VTI) ? 0.76 ? ratio ? DOI (Vmax) ?0.79 ? ratio ? SV LVOT ? 41.13 ?ml ? CO LVOT ? 3.7 ?l/min ? Cardiac index ? 2.22 ? l/min/m2 ? CHILO (continuity Vmax2.22 ? cm2 ? CHILO (continuity Vmax1.33 ? cm2/m2 ? CHILO (continuity VTI)2.12 ? cm ? CHILO (continuity VTI)1.27 ? cm2/m2 ? Mitral Valve ?Value ?Units (Range) ? MV VTI ?16.77 ?cm ? MV PHT ?25.33 ?msec ? MVA (PHT) ? 8.69 ? cm2 ? MVA (continuity VTI)2.45 ? cm2 ? Tricuspid Valve ?Value ?Units (Range) ? TV VTI ?20.75 ?cm ? TR Vmax ? 3.25 ? m/sec ? TR peak gradient ?42.34 ?mmHg ? RAP ? 3 ?mmHg ? RVSP ?45 ? mmHg ? Pulmonic Valve/Qp:Qs ?Value ?Units (Range) ? PV Vmax ? 0.78 ? m/sec ? PV VTI ?13.53 ?cm ? PV peak gradient ?2.45 ? mmHg ? PV mean gradient ?1.39 ? mmHg ? RVOT Vmax ? 0.52 ? m/sec ? RVOT VTI ?11.92 ?cm ? RVOT peak gradient ??1.07 ? mmHg ? PV acceleration time33.15 ?msec ? PV ejection time ?240.35 ? msec ? PV AT:ET ?0.14 ? ratio ? This report has been electronically signed by: Rock Amaya M.D. ? 06/24/2021 13:06:28 Images reviewed and interpretation verified [facility] Cardiac Ultrasound Laboratory Procedure Note Rock Amaya MD - 06/24/2021 Procedure: Transthoracic Echocardiogram Patient: Jorge Luis FUNES(Age): 1950(70y) Med Rec#: [id number] Sex: M Site Loc: [facility] Ht / Wt: 167.64(cm)/58.9 Pt. Loc: Adult Floor BSA: 1.67 Study Date: 06/24/2021 Pt. Type: Inpatient Tape: Referring: [facility] Reading: Rock Amaya ([id number]) Barrel Waterer: SHAHZAD Barrel Waterer: SHAHZAD Diagnosis: *Heart failure, unspecified (I50.9) BP: 96/63 SUMMARY: 1. Mild concentric left ventricular hypertrophy is observed. There is normal global left ventricular systolic function with an EF of 60% and no wall motion abnormalities. 2. The right ventricle is moderately dilated. Right ventricular global systolic function is normal. The estimated pulmonary artery systolic pressure is elevated at 45 mmHg. 3. There is moderate to severe (3+/4+) tricuspid regurgitation present. 4. The pericardium appears normal and there is no evidence of a pericardial effusion. Findings : Left Ventricle: The left ventricular chamber size is normal. Mild concentric left ventricular hypertrophy is observed. There is no evidence of LVOT obstruction. There is normal global left ventricular systolic function. Ejection fraction is estimated to be 60%. There are no left ventricular segmental wall motion abnormalities. Left Atrium: The left atrium is mildly dilated. Right Ventricle: The right ventricle is moderately dilated. Right ventricular global systolic function is normal. There is evidence of mild pulmonary hypertension. The estimated pulmonary artery systolic pressure is 45 mmHg. The estimated right atrial pressure is 3 mmHg. Right Atrium: The right atrium is severely dilated. Aortic Valve: The aortic valve is tricuspid. The aortic valve leaflets are mildly thickened. Systolic excursion of the aortic valve is normal. There is no evidence of aortic valve stenosis. There is no evidence of aortic regurgitation. Mitral Valve: The mitral valve leaflets are mildly thickened. There is mitral annular calcification. There is no evidence of mitral stenosis. There is mild (1+/4+) mitral regurgitation present. Tricuspid Valve: The tricuspid valve leaflets are morphologically normal. There is moderate to severe (3+/4+) tricuspid regurgitation present. Pulmonic Valve: The pulmonic valve appears normal in structure and function. There is mild (1+/4+) pulmonic regurgitation present. Pericardium: The pericardium appears normal and there is no evidence of a pericardial effusion. Aorta: The ascending aorta was not well visualized. Misc: Two-dimensional echo, spectral Doppler and color Doppler performed. Chambers 2D Value Units (Range) IVSd (2D) 1.2 cm LVPWd (2D) 1.22 cm IVS:LVPW ratio (2D) 0.98 ratio RWT (2D) 0.65 ratio RWT PW (2D) 0.65 ratio LVIDd (2D) 3.73 cm LVIDs (2D) 2.9 cm LVIDd (2D) index 2.24 cm/m2 LVIDs (2D) index 1.74 cm/m2 LV FS (2D) 22.35 % EF Teichholz (2D) 45.81 % Volumes/Mass Value Units (Range) LA ESV BP (A/L) inde42.78 ml/m2 LA ESV BP (MOD) inde40.49 ml/m2 LV ESV SP 4CH (MOD) 31.65 ml LV ESV SP 2CH (MOD) 23.13 ml LV EDV BP 50.22 ml LV ESV BP 27.37 ml LV EDV BP index 30.15 ml/m2 LV ESV BP index 16.43 ml/m2 BP EF (MOD) 45.5 % LV mass (2D) 151.06 g LV mass (2D) index 90.69 g/m2 Diastolic/Systolic Function Value Units (Range) MV E-wave Vmax 1.23 m/sec MV deceleration time87.35 msec Aortic Valve Value Units (Range) AV Vmax 0.93 m/sec AV VTI 19.4 cm AV peak gradient 3.45 mmHg AV mean gradient 1.85 mmHg LVOT diameter 1.89 cm LVOT Vmax 0.73 m/sec LVOT VTI 14.65 cm LVOT peak gradient 53 mmHg DOI (VTI) 0.76 ratio DOI (Vmax) 0.79 ratio SV LVOT 41.13 ml CO LVOT 3.7 l/min Cardiac index 2.22 l/min/m2 CHILO (continuity Vmax2.22 cm2 CHILO (continuity Vmax1.33 cm2/m2 CHILO (continuity VTI)2.12 cm CHILO (continuity VTI)1.27 cm2/m2 Mitral Valve Value Units (Range) MV VTI 16.77 cm MV PHT 25.33 msec MVA (PHT) 8.69 cm2 MVA (continuity VTI)2.45 cm2 Tricuspid Valve Value Units (Range) TV VTI 20.75 cm TR Vmax 3.25 m/sec TR peak gradient 42.34 mmHg RAP 3 mmHg RVSP 45 mmHg Pulmonic Valve/Qp:Qs Value Units (Range) PV Vmax 0.78 m/sec PV VTI 13.53 cm PV peak gradient 2.45 mmHg PV mean gradient 1.39 mmHg RVOT Vmax 0.52 m/sec RVOT VTI 11.92 cm RVOT peak gradient 1.07 mmHg PV acceleration time33.15 msec PV ejection time 240.35 msec PV AT:ET 0.14 ratio This report has been electronically signed by: Rock Amaya M.D. 06/24/2021 13:06:28 Images reviewed and interpretation verified [facility] Cardiac Ultrasound Laboratory Shakila Mayberry MD ECHO ORDERABLES documented in this encounter Visit Diagnoses Diagnosis Congestive heart failure, unspecified HF chronicity, unspecified heart failure type documented in this encounter Care Teams Salesperson Neckties Relationship Specialty Start Date End Date Silvina Perdue MD [facility] [address] [place] [address] PCP - General 04/28/10 documented as of this encounter
--- OUTSIDE RECORDS SUMMARY | 2024-04-02 21:44 | XMS_ITS ---
Author Organization Unknown Address [address] [place] [address] [phone] Phone Care Team Providers Care Marble Setter Name Role Phone NIKITA LINDSEYLUIS Registered Nurse Unavailable ALPHONSE Mccann Attending Unavailable GUERO Mendez Primary Unavailable Results PTT PARTIAL THROMBOPLASTIN T AMAYA* - Collect Date/Time: 11/25/2023 12:25 [facility] ID: [id number] [address] [place] [address], [id number] LOINC: 26303-9 Test Value Unit Reference Range Code Code System Flag PTT 30.5 seconds L=24.5 H=32.8 18681-8 LOINC PT PROTHROMBIN TIME* - Colle ct Date/Time: 11/25/2023 12:25 [facility] ID: [id number] [address] [place] [address], 5661 LOINC: 5902-2 Test Value Unit Reference Range Code Code System Flag PROTIME 11.5 seconds L=9.3 H=11.4 5902-2 LOINC H INR 1.11 L=2.00 H=3.00 53131-1 LOINC L BASIC METABOLIC PANEL (BMP) - Collect Date/Time: 11/25/2023 12:25 [facility] ID: [id number] [address] [place] [address], 5661 LOINC: 09320-3 Test Value Unit Reference Range Code Code System Flag GLUCOSE 103 mg/dL L=70 H=116 2345-7 LOINC BUN 24 mg/dL L=6 H=25 3094-0 LOINC CREATININE 1.08 mg/dL L=0.67 H=1.17 2160-0 LOINC SODIUM SERUM 137 mmol/L L=136 H=145 2951-2 LOINC POTASSIUM SERUM 4.3 mmol/L L=3.4 H=5.2 2823-3 LOINC CHLORIDE SERUM 101 mmol/L L=96 H=110 2075-0 LOINC CARBON DIOXIDE (CO2) 28 mmol/L L=22 H=34 2028-9 LOINC ANION GAP 7.8 mmol/L 02233-8 LOINC CALCIUM SERUM 9.3 mg/dL L=8.2 H=10.2 29639-3 LOINC AGE 73 years eGFR (non-Afr.Amer.) 67 mL/min 84812-8 LOINC eGFR (Afr-Comoran) 81 mL/min 47830-3 LOINC CBC W/ DIFFERENTIAL* - Colle ct Date/Time: 11/25/2023 12:25 [facility] ID: [id number] [address] [place] [address], 56 LOINC: 49343-9 Test Value Unit Reference Range Code Code System Flag WBC 6.96 th/cmm L=5.00 H=10.00 6690-2 LOINC NEUT % 69.8 % L=40.0 H=80.0 LYMPH % 15.9 % L=10.0 H=50.0 MONO % 8.9 % L=2.0 H=12.0 97002-7 LOINC EOS % 4.5 % L=0.0 H=8.0 BASO % 0.6 % L=0.0 H=3.0 IG % 0.3 % L=0.0 H=1.1 2514-8 LOINC NRBC % 0.0 % L=0.0 H=0.0 00883-0 LOINC NEUT abs count 4.9 th/cmm L=1.6 H=8.4 751-8 LOINC LYMPH abs count 1.1 th/cmm L=1.5 H=4.0 731-0 LOINC L MONO abs count 0.6 th/cmm L=0.2 H=1.0 742-7 LOINC EOS abs count 0.3 th/cmm L=0.0 H=0.5 711-2 LOINC BASO abs count 0.0 th/cmm L=0.0 H=0.2 704-7 LOINC IG abs count 0.0 th/cmm L=0.0 H=0.1 38877-6 LOINC NRBC abs count 0.0 mil/cmm L=0.0 H=0.0 19720-6 LOINC RBC 4.65 mil/cmm L=4.30 H=6.20 789-8 LOINC HEMOGLOBIN 14.0 gm/dL L=13.0 H=17.0 718-7 LOINC HEMATOCRIT 43 % L=45 H=52 4544-3 LOINC L MCV 92 fL L=82 H=92 787-2 LOINC MCH 30.1 pg L=27.0 H=31.0 785-6 LOINC MCHC 32.7 % L=32.0 H=36.0 786-4 LOINC RDW-SD 47.0 fL L=39.0 H=49.0 788-0 LOINC PLATELET COUNT 172 th/cmm L=150 H=450 777-3 LOINC XR CHEST PORTABLE OR 1V - Co mpleted: 11/25/2023 12:24 LOINC: [facility] [place], [place] [id number] [place] [address] [employer] REPORT Patient Name: ANDREW MABRY MRN: Sex: : Age: [id number] M [id number] Account: Accession: Admit: StayType: [id number] 11/25/2023 E Ordered: Order ID: Submitted: Ordering Provider: 11/25/2023 12:08 [id number] ANTOINE ORANTES Completed: Technologist: Resulted: 11/25/2023 12:16 BMM 11/25/2023 13:32 FINAL REPORT EXAM: XR CHEST PORTABLE OR 1V CLINICAL HISTORY: Reason for Chest: hemoptysis. TECHNIQUE: 2D digital imaging was performed. COMPARISON: No exams were available for comparison FINDINGS: Single AP portable view. There are sternotomy wires. Heart size is upper normal. The mediastinum is not widened. There is COPD findings. Density in the left lower lobe retrocardiac region either represents infiltrate or hiatal hernia, or combination there of. No obvious pleural effusions. Density linear fashion left hemidiaphragm region may be a calcified pleural plaque There is a nonacute appearing fracture of the posterior aspect of the left 7th rib. IMPRESSION: Left lower lobe infiltrate suspected.Also possible calcified pleural plaque over the left lung base. Prior sternotomy and CABG. DATA REPOSITORY: RADIATION DOSE DELIVERED: Electronically signed by: Harshad Koroma Dictated: 11/25/2023 13:32 Social History Type Status Start Date End Date Code Code Syst em Sex Male Vital Signs Vital Sign Value Unit [place] Value [place] Unit Date/Time Recent/Initial? Code Code System Body Mass Index 18.08 kg/m2 11/25/2023 11:58 Initial 61535 -5 LOINC Systolic Blood Pressure 122 mm[Hg] 11/25/2023 14:21 Most Recent 8480- 6 LOINC Diastolic Blood Pressure 71 mm[Hg] 11/25/2023 14:21 Most Recent 8462- 4 LOINC Systolic Blood Pressure 122 mm[Hg] 11/25/2023 11:58 Initial 8480- 6 LOINC Diastolic Blood Pressure 71 mm[Hg] 11/25/2023 11:58 Initial 8462- 4 LOINC Body Surface Area 1.54 m2 11/25/2023 11:58 Initial 3140- 1 LOINC Height 167.640 0 cm 66.00 in 11/25/2023 11:58 Initial 8302- 2 LOINC O2 Saturation 94 % 2023 14:21 Most Recent 55165 -5 LOINC O2 Saturation 99 % 06/21/ 2024 11:58 Initial 21737 -5 LOINC Pulse 84.0 /min 11/25/2023 14:21 Most Recent 8867- 4 LOINC Pulse 64.0 /min 11/25/2023 11:58 Initial 8867- 4 LOINC Respiration 18 /min 11/25/19 14:21 Most Recent 9279- 1 LOINC Respiration 14 /min 11/25/19 11:58 Initial 9279- 1 LOINC Temperature 35.4 Erin 95.7 F 11/25/19 14:21 Most Recent 8310- 5 LOINC Temperature 35.7 Erin 96.3 F 11/25/19 11:58 Initial 8310- 5 LOINC Weight 50.80 kg 112.00 lbs 11/25/2023 11:58 Initial 56615 -7 LOINC Medications Medication Start Date End Date Route Frequency Dose Code Code System Medication Instructions Home Meds Zithromax 250MG Oral Tablet 11/25/2023 Unknown ORAL DAILY 1 TABLET 084026 RxNorm TAKE 1 T ABLET ORAL DAILY (NEXT DOSE 11/26/23) Assessment You had the following problems:HEMOPTYSISLEFT LOWER LOBE PNEUMONIA Hospital Discharge Instructions Should you have any questions prior to discharge, please contact a member of your healthcare team. If you have left the hospital and have any questions, please contact your primary care physician. Reason For Referral No Data Found Problems Problem Start Date Resolved Date Status Code Code System HEMOPTYSIS active 72461406 SNOMED-CT LEFT LOWER LOBE PNEUMONIA active 3010 63601 SNOMED-CT LUNG CA 11/25/2023 resolved 18357833 SNOMED-CT BPH active 631768922 SNOMED-CT DEMENTIA active 39789382 SNOMED-CT GERD active 364617007 SNOMED-CT Allergies and Adverse Reactions Allergy Substance Reaction Severity Start Date Concern Status Co de Code System No Known Drug Allergies Active 809324973 SNOMED-CT Plan of Treatment OUTPATIENT PLAN: Your prescription was printed. Discharge Medications Medication Dosage Route Frequency Prescribing MD Special Instructions Zithromax 250MG Oral Tablet 1 TABLET ORAL DAILY ALPHONSE Mccann TAKE 1 TABLET ORAL DAILY (NEXT DOSE 11/26/23) HOSPITAL COURSE AND TESTING: Medications given this visit: Ordered & Completed Meds Table Ordered Medication Start Date/Time Dosage Route Frequency Status AZITHROMYCIN TABLET: 250MG 11/25/2023 13:47 500 MG ORAL X1 active Lab Results: This Visit Test Results Units Reference Range Ordered Collected Status GLUCOSE 103 mg/dL L=70 H=116 11/25/2023 12:08 11/25/2023 12:25 final BUN 24 mg/dL L=6 H=25 11/25/2023 12:08 11/25/2023 12:25 final CREATININE 1.08 mg/dL L=0.67 H=1.17 11/25/2023 12:08 11/25/2023 12:25 final SODIUM SERUM 137 mmol/L L=136 H=145 11/25/2023 12:08 11/25/2023 12:25 final POTASSIUM SERUM 4.3 mmol/L L=3.4 H=5.2 11/25/2023 12:08 11/25/2023 12:25 final CHLORIDE SERUM 101 mmol/L L=96 H=110 11/25/2023 12:08 11/25/2023 12:25 final CARBON DIOXIDE (CO2) 28 mmol/L L=22 H=34 11/25/2023 12:08 11/25/2023 12:25 final ANION GAP 7.8 mmol/L 11/25/2023 12:08 11/25/2023 12:25 final CALCIUM SERUM 9.3 mg/dL L=8.2 H=10.2 11/25/2023 12:08 11/25/2023 12:25 final AGE 73 years 11/25/2023 12:08 11/25/2023 12:25 final eGFR (non-Afr.Amer.) 67 mL/min 11/25/2023 12:08 11/25/2023 12:25 final eGFR (Afr-Comoran) 81 mL/min 11/25/2023 12:08 11/25/2023 12:25 final WBC 6.96 th/cmm L=5.00 H=10.00 11/25/2023 12:08 11/25/2023 12:25 final NEUT % 69.8 % L=40.0 H=80.0 11/25/2023 12:08 11/25/2023 12:25 final LYMPH % 15.9 % L=10.0 H=50.0 11/25/2023 12:08 11/25/2023 12:25 final MONO % 8.9 % L=2.0 H=12.0 11/25/2023 12:08 11/25/2023 12:25 final EOS % 4.5 % L=0.0 H=8.0 11/25/2023 12:08 11/25/2023 12:25 final BASO % 0.6 % L=0.0 H=3.0 11/25/2023 12:08 11/25/2023 12:25 final IG % 0.3 % L=0.0 H=1.1 11/25/2023 12:08 11/25/2023 12:25 final NRBC % 0.0 % L=0.0 H=0.0 11/25/2023 12:08 11/25/2023 12:25 final NEUT abs count 4.9 th/cmm L=1.6 H=8.4 11/25/2023 12:08 11/25/2023 12:25 final LYMPH abs count 1.1 L th/cmm L=1.5 H=4.0 11/25/2023 12:08 11/25/2023 12:25 final MONO abs count 0.6 th/cmm L=0.2 H=1.0 11/25/2023 12:08 11/25/2023 12:25 final EOS abs count 0.3 th/cmm L=0.0 H=0.5 11/25/2023 12:08 11/25/2023 12:25 final BASO abs count 0.0 th/cmm L=0.0 H=0.2 11/25/2023 12:08 11/25/2023 12:25 final IG abs count 0.0 th/cmm L=0.0 H=0.1 11/25/2023 12:08 11/25/2023 12:25 final NRBC abs count 0.0 mil/cmm L=0.0 H=0.0 11/25/2023 12:08 11/25/2023 12:25 final RBC 4.65 mil/cmm L=4.30 H=6.20 11/25/2023 12:08 11/25/2023 12:25 final HEMOGLOBIN 14.0 gm/dL L=13.0 H=17.0 11/25/2023 12:08 11/25/2023 12:25 final HEMATOCRIT 43 L % L=45 H=52 11/25/2023 12:08 11/25/2023 12:25 final MCV 92 fL L=82 H=92 11/25/2023 12:08 11/25/2023 12:25 final MCH 30.1 pg L=27.0 H=31.0 11/25/2023 12:08 11/25/2023 12:25 final MCHC 32.7 % L=32.0 H=36.0 11/25/2023 12:08 11/25/2023 12:25 final RDW-SD 47.0 fL L=39.0 H=49.0 11/25/2023 12:08 11/25/2023 12:25 final PLATELET COUNT 172 th/cmm L=150 H=450 11/25/2023 12:08 11/25/2023 12:25 final PROTIME 11.5 H seconds L=9.3 H=11.4 11/25/2023 12:08 11/25/2023 12:25 final INR 1.11 L L=2.00 H=3.00 11/25/2023 12:08 11/25/2023 12:25 final PTT 30.5 seconds L=24.5 H=32.8 11/25/2023 12:08 11/25/2023 12:25 final RADIOLOGY RESULTS: EXAM: XR CHEST PORTABLE OR 1V CLINICAL HISTORY: Reason for Chest: hemoptysis. TECHNIQUE: 2D digital imaging was performed. COMPARISON: No exams were available for comparison FINDINGS: Single AP portable view. There are sternotomy wires. Heart size is upper normal. The mediastinum is not widened. There is COPD findings. Density in the left lower lobe retrocardiac region either represents infiltrate or hiatal hernia, or combination there of. No obvious pleural effusions. Density linear fashion left hemidiaphragm region may be a calcified pleural plaque There is a nonacute appearing fracture of the posterior aspect of the left 7th rib. IMPRESSION: Left lower lobe infiltrate suspected.Also possible calcified pleural plaque over the left lung base. Prior sternotomy and CABG. Encounters Encounter Diagnosis Start Date Code Code Sys tem Hemoptysis 11/25/2023 [employer] Personal Care Team Section Performer Name Performer Role Active Date Inactive Da te
--- OUTSIDE RECORDS SUMMARY | 2024-04-02 21:44 | XMS_ITS | Clinical Summary ---
Author Organization Formerly [facility], 1928–1983 Address [facility] [place] [address] Care Team Providers Care Corn Husker Machine Operator Name Role Phone Silvina Perdue MD Primary Care Provider [phone] Allergies No known active allergies Medications Medication Sig Dispensed Refills Start Date End Date Status folic acid (FOLVITE) 1 mg tablet 1mg, PO, QD 10/03/2009 Active albuterol-ipratropi um (COMBIVENT) 18-103 mcg/Actuation inhaler 10/03/2009 Active Ferrous Sulfate 325 mg (65 mg Iron) CpSR 10/03/2009 Active metFORMIN (GLUCOPHAGE) 500 mg tablet 10/03/2009 Active nitroGLYcerin (NITROSTAT) 0.4 mg SL tablet 10/03/2009 Active atorvastatin (LIPITOR) 10 mg Tablet Take 10 mg by mouth daily. 0 06/28/2017 Active cholecalciferol, Vitamin D3, 2,000 unit Tablet Take 2,000 Units by mouth daily. 0 06/28/2017 Active furosemide (LASIX) 40 mg Tablet Take 40 mg by mouth See Admin Instructions. 80mg in the morning, 40mg at noon 0 07/18/2017 Active gabapentin (NEURONTIN) 300 mg Capsule Take 300 mg by mouth 3 times daily. 0 05/23/2017 Active HYDROcodone-acetami nophen (NORCO) 10-325 mg Tablet Take 1 tablet by mouth 2 times daily. 0 09/12/2017 Active SPIRIVA WITH HANDIHALER 18 mcg Capsule, w/Inhalation Device Inhale 18 mcg into the lungs daily. 0 09/10/2017 Active methyl salicylate-menthol (BENGAY) 15-10 % Cream Apply 1 Application topically 2 times daily. 30 g 09/20/2017 Active nicotine (NICODERM CQ) 21 mg/24 [address] 1 patch onto the skin daily. 28 patch 09/21/2017 Active metoprolol tartrate (LOPRESSOR) 25 mg Tablet Take 0.5 tablets by mouth 2 times daily. 30 tablet 3 09/20/2017 Active buPROPion (WELLBUTRIN SR OR ZYBAN) 150 mg Tablet Sustained Release 12 hr Take 1 tablet by mouth 2 times daily. 60 tablet 3 09/20/2017 Active thiamine (THIAMINE) Take 1 tablet by mouth daily. 30 tablet 3 09/20/2017 Active clotrimazole (MYCELEX) 10 mg Konrad Dissolve one in mouth three times daily after brushing teeth after each meal 90 tablet 03/09/2018 Active pantoprazole EC (Protonix) 40 mg Tablet, Delayed Release (E.C.) Take 1 tablet by mouth 2 times daily. 90 tablet 04/16/2021 Active Active Problems Problem Noted Date Diagnosed Date GIB (gastrointestinal bleeding) 04/13/2021 Iron deficiency anemia due to chronic blood loss 09/14/2017 ETOH abuse 09/14/2017 Overview (09/14/2017): Daily use: 6 pack 12oz beer, 2 shots primo History of GI tract cancer 09/14/2017 Overview (09/14/2017): Hx gastric cancer ? S/p partial gastrectomy 2000, c/b surgical flap infection and removal of 4-5 ribs. Paroxysmal atrial fibrillation 09/14/2017 Overview (09/14/2017): On Eliquis History of ASCVD 09/14/2017 Overview (09/14/2017): S/p 4v CABG - on ASA Chronic back pain 09/14/2017 Overview (09/14/2017): On chronic narcotics Type 2 diabetes mellitus wit h neurologic complication, without long-term current use of insulin 09/14/2017 Overview (09/14/2017): On Metformin and Gabapentin Pancreatitis c/b pseudocyst/cyst 2004 09/14/2017 Depression 09/14/2017 COPD (chronic obstructive pulmonary disease) 04/2018 Overview (09/14/2017): Not on home 02 or chronic steroids Tobacco abuse disorder 09/14/2017 Acute upper GI bleed 09/13/2017 Resolved Problems Problem Noted Date Diagnosed Date Resolved Date Glossitis 07/13/2011 09/14/2017 Immunizations Name Administration Dates Next Due Influenza Vaccine, Whole 06/06/2007 Pneumococcal 23-Valent Polysaccharide (Pneumovax 23) 06/06/2005 Social History Tobacco Use Types Packs/Day Years Used Date Smoking Tobacco: Former Cigarettes Smokeless Tobacco: Never Alcohol Use Standard Drinks/Week Comments Yes 20 (1 standard drink = 0.6 oz pu re alcohol) Sex and Gender Information Value Date Recorded Sex Assigned at Not on file Gender Identity Not on file Sexual Orientation Not on file Last Filed Vital Signs Vital Sign Reading Time Taken Comments Blood Pressure 131/84 04/16/2021 10:00 AM EST Pulse 72 04/14/2021 3:47 PM EST Temperature 36.6 ??C (97.9 ??F) 04/16/2021 10:[address] Respiratory Rate 20 04/16/2021 10:00 AM EST Oxygen Saturation 94% 04/16/2021 10:00 AM EST Inhaled Oxygen Concentration - - Weight 63.3 kg (139 lb 8.8 oz) 09/13/2017 1:10 P M EDT Height 167.6 cm (5' 6) 04/13/2021 5:30 PM EST Body Mass Index 22.52 09/13/2017 1:10 PM EDT Plan of Treatment Health Maintenance Due Date Last Done Comments CT Colonography 1950 Colonoscopy 1950 Colorectal Cancer Screening 1950 FIT DNA 1950 FIT 1950 Sigmoidoscopy (10 year) with FIT yearly 1950 Sigmoidoscopy 1950 DM Opthalmology Exam 1960 DM Urine Microalbumin yearly 1960 Hepatitis C Screening 1968 Tetanus/Diphtheria/Pertussis Vaccines (1 - Tdap) 1969 Zoster vaccine (1 of 2) 2000 Advance Directive 2005 Pneumoccocal Vaccine: 65+ (2 of 2 - PCV) 06/06/2006 06/06/2005 AAA Screen 08/11/2015 DM Hemoglobin A1c 6 month 10/12/2021 04/14/2021, DM Creatinine yearly 04/16/2022 04/16/2021, 04/15/2021, 04/14/2021, Additional history exists Covid-19 Vaccine (1 - 2022-2 4 season) 2024 Influenza (Flu) vaccine (1 o f 1 - Influenza standard series) 02/05/2024 06/06/2007 Procedures Procedure Name Priority Date/Time Associated Diagnosis Comments HC VENIPUNCTURE Routine 04/16/2021 12:08 PM EST HC HEMOGLOBIN A1C Routine 04/14/2021 2:3 0 PM EST from Last 3 Months or Most Recently Relevant to Health Maintenance Results * (ABNORMAL) Comprehensive metabolic panel (non-fasting) (04/16/2021 12:08 PM EST) Glucose 104 65 - 199 mg/dL [facility] Comment:Diabetes: >=200 mg/d L plus symptoms Blood Urea Nitrogen 10 10 - 20 mg/dL [facility] Creatinine 0.66(L) 0.80 - 1.50 mg/dL [facility] Sodium 136 135 - 145 mmol/L [facility] Potassium 3.6 3.5 - 5.0 mmol/L [facility] Comment: Please note: ??Patients with WBC >100,000 may have falsely elevated Potassium levels. ??For accurate Potassium quantification in these patients send serum separator tube (gold top) for subsequent determinations. ??Contact the Clinical Chemistry Laboratory if there are any questions. Chloride 108(H) 98 - 107 mmol/L [facility] Carbon Dioxide 19(L) 22 - 31 mmol/L [facility] Anion Gap 9 5 - 15 mmol/L [facility] Calcium 8.3(L) 8.5 - 10.5 mg/dL [facility] Protein, Total 5.7(L) 6.1 - 8.0 g/dL [facility] Albumin 2.8(L) 3.2 - 5.2 g/dL [facility] Aspartate Aminotransferase 18 0 - 39 unit/L [facility] Alanine Aminotransferase 11 0 - 55 unit/L [facility] Alkaline Phosphatase 125 40 - 130 unit/L [facility] Bilirubin, Total 0.8 0.2 - 1.3 mg/dL [facility] Est Glomerular Filtration Rate 98 >=60 mL/min/1. 73 m?? [facility] Comment: This patient? s estimated glomerular filtration rate (eGFR) is between 98 mL/min/1.73 m2 (patients with less muscle mass per kg body weight) and 114 mL/min/1.73 m2 (patients with more muscle mass per kg body weight) as determined by the CKD-EPI equation. Assessment of eGFR is not appropriate when creatinine concentrations are rapidly changing. For clinical decisions where creatinine clearance will affect therapy, a 24-hour urine creatinine clearance may be advised. Assignment of CKD stage 1 - 5 for patients with an eGFR near the transition point between stages may be based on clinical assessment of muscle mass and symptoms in addition to eGFR. Blood 04/16/2021 12:0 8 PM EST 04/16/2021 12:18 PM EST Narrative Resulting Agency Comment Spec In Lab Sandy Mak MD CHEMISTRY OR DERABLES [facility] [place] [address] * Hemoglobin A1c (04/14/2021 2:30 PM EST) Hemoglobin A1c 5.4 4.3 - 5.6 % [facility] Comment: Reference Range: 4.3 - 5.6% 5.7 - 6.4% - Increased Risk of Developing Diabetes Mellitus >= 6.5% - Consistent with diagnosis of Diabetes Mellitus In the absence of hyperglycemia (i.e. plasma glucose > 200 mg/dL) or classic symptoms of hyperglycemia a repeat measurement of HbA1c should be performed on a separate sample to confirm the diagnosis. Diagnosis and Classification of Diabetes Mellitus, Diabetes Care 2013; 36: Suppl. 1, U07-28 Estimated Average Glucose See note mg/dL [facility] Comment: Estimated Average Glucose not appropriate for patients over 70 years of age. eAG equivalents for HbA1c percentages: HbA1c(%) ?eAG(mg/dL) 6.0 ?126 6.5 ?140 7.0 ?154 7.5 ?169 8.0 ?183 8.5 ?197 9.0 ?212 9.5 ?226 10.0 ? 240 Limitations: The eAG calculation has not been validated on women, individuals below 18 years old and above 70 years old, and individuals with hemoglobinopathies. Additional resources are available on the ADA website. David UGALDE, Babs J, Russell R, et al. ??Translating the A1C assay into estimated average glucose values. ??Diabetes Care 2008:31(8):8555-7924. Blood 04/14/2021 2:30 PM EST 04/14/2021 2:52 PM EST Narrative Resulting Agency Comment Spec In Lab Sandy Mak MD CHEMISTRY OR DERABLES [facility] [place] [address] from Last 3 Months or Most Recently Relevant to Health Maintenance Advance Directives * Attempt Cardiopulmonary Resuscitation - Inpatient (Latest Code Status on File) Date Activated Date Inactivated Comments 04/13/2021 5:49 PM 04/16/2021 7:12 PM Question Answer Comments Code Status decision made by: PatientHealthcare Agent (DPOA) Name (and relationship if needed): family * Full Code Date Activated Date Inactivated Comments 09/13/2017 12:41 PM 09/20/2017 6:14 PM Question Answer Comments Does patient have capacity to make decision: Yes Care Teams Corn Husker Machine Operator Relationship Specialty Start Date End Date Silvina Perdue MD [address] [place] [address] PCP - General 04/28/10
--- OUTSIDE RECORDS SUMMARY | 2024-04-02 21:45 | XMS_ITS | Encounter Summary ---
Author Organization [facility] [place] [address] Care Team Providers Care Blanket Winder Operator Name Role Phone Silvina Perdue MD Primary Care Provider [phone] Encounter Details Date Type Department Care Team (Late st Contact Info) Description 04/13/2021 Telephone [place] [address] Joel Mccartney MD [facility] [place] [address] Social History Tobacco Use Types Packs/Day Years Used Date Smoking Tobacco: Former Cigarettes Smokeless Tobacco: Never Alcohol Use Standard Drinks/Week Comments Yes 20 (1 standard drink = 0.6 oz pu re alcohol) Sex and Gender Information Value Date Recorded Sex Assigned at Not on file Gender Identity Not on file Sexual Orientation Not on file documented as of this encounter Miscellaneous Notes * Telephone Encounter - Joel Mccartney - 04/13/2021 11:27 AM EST DIVISION OF GASTROENTEROLOGY & HEPATOLOGY TRANSFER CENTER CALL Name: Nain Kang Date: 04/13/2021 Time: 11:27 AM Referring Location: [facility] Referring Provider: Dr. Jefe Gillette is a 70/M w/ a hx of esophageal cancer s/p distal esophagectomy/subtotal gastrectomy with EG anastomosis (?pre-2001, no records available), UGIB (2018, unclear source), EtOH use disorder (unclear last drink without a known liver hx), A Fib, CAD s/p CABG (on ASA), COPD (not on O2) currentlyadm to [facility] on 04/11. Appears to have been brought in by roommate who reported seeing recenthematemesis and melena. While at [facility], patient has had BP hovering around 90/60, HR high 80s. Hb was 13.6 on admission which has since downtrended to 8.9 despite 2u pRBCs, receiving another unit today. Other labs notable for INR 1.3, PLT 110 (full labs not provided). Of note, patient was COVID PCR positive. Patient underwent a CTA T/A/P (04/10/21) w/ grossly normal-appearing liver, no obvious portal hypertensive changes or ascites, some changes c/f chronic panc. No blush seen. Patient has had ongoing melena since admission but no observed hematemesis. Not on O2 in setting of COVID PNE. Patient has been maintained on PPI BID. Dr. Mayberry called to discuss transfer. I agreed with plans to transfer patient should a precaution floor or ISCU patient become available. I agreed that the patient would benefit from an EGD for evaluation. I recommended she reach out to other centers in the interim if there are no beds available here at this time. EtOH hx and thrombocytopenia are c/f cirrhosis, although no cirrhotic morphology on CT and no obvious varices or portal HTN changes. Reasonableto continue to monitor off octreotide at this time. This is not an official consult, as my recommendations are limited by my inability to interview andexamine the patient as well as personally review the medical record, imaging, and laboratory findings. Joel Mccartney MD PGY-5, Gastroenterology EGD (09/2017): Findings: ?The examined esophagus was normal. ?Stomach: There was a partial gastrectomy of the ?proximal stomach (the antrum was intact and it was ?difficult to retroflex endoscope in gastric body). ?Initially there was no blood in the stomach or active ?bleeding. After attempt at U turn there was oozing of ?fresh heme from two punctate lesions in the proximal ?gastric body. Both sites were treated with APC at 20 ?omalley 1.4 effect, flow 2. Each site quickly ceased ?oozing. ?The examined duodenum was normal. Impression: ?- Normal esophagus. ?- Normal examined duodenum. ?Altered gastric anatomy from partial ?gastric resection. No bleeding ?initially and no blood in stomach. ?Oozing from two sites in proximal ?stomach when U turn was performed ?both treated with APC. Not clear if ?these were small AVM's that were ?provoked to bleed by scope or merely ?scope trauma in the context of ?anticoagulation Recommendation: ?Hold anticoagulation for the next ?several days ?- The attending physician listed ?above was present for the entire ?procedure. EGD (09/13/17): Findings: ?Esophagogastric landmarks were identified: the Z-line ?was found at 35 cm from the incisors. ?Red blood was found in the distal esophagus. ?LA Grade A (one or more mucosal breaks less than 5 ?mm, not extending between tops of 2 mucosal folds) ?esophagitis with no bleeding was found. ?Red and altered blood was found in the gastric fundus ?with adherent clot. Lavage of the area was performed ?using a large amount, resulting in clearance with ?adequate visualization. No underlying source of ?bleeding was found. Stomach appeared to be surgically ?alter, potentially with a partial gastrectomy. ?Hematin (altered blood/ujnfjb-vfnmsr-hkmj material) ?was found in the entire duodenum. Lavage of the area ?was performed using a large amount, resulting in ?incomplete clearance with fair visualization. Impression: ?- Esophagogastric landmarks?identified. ?- Red blood in the distal esophagus. ?- LA Grade A esophagitis. ?- Hematin (altered ?blood/rddepq-wevvax-fhfy material) in ?the gastric fundus. ?- Blood in the entire examined ?duodenum. ?- No specimens collected. Recommendation: ?- Return patient to ICU for ongoing ?care. ?- Continue IV PPI. ?- Discontinue octreotide/ceftriaxone ?as no evidence of portal hypertension ?was seen. ?- Hb Q8 hours. ?- Active type and screening. documented in this encounter Plan of Treatment Not on file documented as of this encounter Visit Diagnoses Not on filedocumented in this encounter Care Teams Blanket Winder Operator Relationship Specialty Start Date End Date Silvina Perdue MD [facility] [address] [place] [address] PCP - General 04/28/10 documented as of this encounter
--- OUTSIDE RECORDS SUMMARY | 2024-04-02 21:45 | XMS_ITS | Encounter Summary ---
Author Organization [facility] [place] [address] Care Team Providers Care Construction Electrician Name Role Phone Silvina Perdue MD Primary Care Provider [phone] Reason for Visit * Auth/Cert Specialty Diagnoses / Procedures Referred By Viridiana t Referred To Contact Diagnoses GIB (gastrointestinal bleeding) GI bleed Referral ID Status Reason Start Date Expiration Date Visits Re quested Visits Authorized [id number] 1 1 Encounter Details Date Type Department Care Team (Late st Contact Info) Description 04/15/2021 4:22 PM EST - 04/15/2021 5:38 PM EST Surgery [place] [address] Kelvin Smith MD [facility] [place] [address] EGD, UPPER GI ENDOSCOPY (WRVU 2.09) Social History Tobacco Use Types Packs/Day Years Used Date Smoking Tobacco: Former Cigarettes Smokeless Tobacco: Never Alcohol Use Standard Drinks/Week Comments Yes 20 (1 standard drink = 0.6 oz pu re alcohol) Sex and Gender Information Value Date Recorded Sex Assigned at Not on file Gender Identity Not on file Sexual Orientation Not on file documented as of this encounter Last Filed Vital Signs Vital Sign Reading Time Taken Comments Blood Pressure 124/90 04/15/2021 4:21 PM EST Pulse 72 04/14/2021 3:47 PM EST Temperature 36.7 ??C (98 ??F) 04/15/2021 4:21 PM EST Respiratory Rate 18 04/15/2021 4:21 PM EST Oxygen Saturation 94% 04/15/2021 6:09 AM EST Inhaled Oxygen Concentration - - Weight - - Height 167.6 cm (5' 6) 04/13/2021 5:30 PM EST Body Mass Index - - documented in this encounter Discharge Summaries * Shaunna Nichole MD - 04/16/2021 3:14 PM ESTSummary: Discharge Summary Images from the original note were not included. Discharge Summary Patient Name: Nain Kang Patient Age: 70 y.o. Language: Haitian Race: White Ethnicity: Not nor Admit date: 04/13/2021 Discharge date and time: 04/16/2021 Attending Physician: Shaunna Nichole MD Discharge Physician: Shaunna Nichole MD PCP: Silvina Perdue MD Code Status: Attempt Cardiopulmonary Resuscitation - Inpatient Follow-up Recommendations for Providers: -Patient was COVID positive on 04/13. He was not in respiratory distress at any point during this hospitalization but symptoms such as fatigue, SOB can be sequelae of long-COVID. -EGD did not reveal any active UGI bleed but did show friable mucosa which has a potential to bleed. 1) Med changes: -pantoprazole 40mg PO BID 2) Labs/imaging to follow up: -CBC, BMP Inpatient Provider Contact Information: For questions regarding this document or issues relating to this hospitalization on the Medical Service, please contact your inpatient physician through the [facility] [employer] . Issues afterhours and on weekends will be handled by the Hospitalist staff on-call. Discharge Diagnoses (Hospital Problems) and Secondary Diagnoses (Chronic Problems): Active Hospital Problems Diagnosis ??? GIB (gastrointestinal bleeding) Resolved Hospital Problems No resolved problems to display. Active Non-Hospital Problems Diagnosis ??? Iron deficiency anemia due to chronic blood loss ??? ETOH abuse ??? History of GI tract cancer ??? Paroxysmal atrial fibrillation ??? History of ASCVD ??? Chronic back pain ??? Type 2 diabetes mellitus with neurologic complication, without long-term current use of insulin ??? Pancreatitis c/b pseudocyst/cyst 2003 ??? Depression ??? COPD (chronic obstructive pulmonary disease) ??? Tobacco abuse disorder ??? Acute upper GI bleed Operations/Major Procedures: Operations: Procedure(s): EGD, UPPER GI ENDOSCOPY 04/15/2021 Other Major Procedures: none History of Presentation (per admission H&P): Patient is confused and poor historian,??accompanied by chart review and regarding transfer from OSH Nain is a 70 year old male known to have h/o esophageal cancer s/p distal esophagectomy/subtotal gastrectomy with EG anastomosis (?pre-2001, no records available), UGIB (2017, unclear source), EtOH use disorder (unclear last drink without a known liver hx), A Fib not on anticoagulation, CAD s/pCABG (on ASA), COPD (not on O2), h/o chronic pancreatitis, DM with neuropathic pains, ??got admitted to [facility] on 04/11 with altered mental status. Of note, patient was COVID PCR positive on 04/10, he was discharged home as maintaining saturation on room air,??he was brought back due to melena as notedby roommate and he was admitted to OSH.??While at [facility], patient has had BP hovering around 90/60, HR high 80s. Hb was 13.6 on admission which has since downtrended to 8.9 despite 2u pRBCs, receiving another unit on the day of transfer. ??INR 1.3, PLT 110. ??His other inflammatory markers were not significantly elevated, he??underwent a CTA T/A/P (04/10/21) w/ grossly normal-appearing liver, no obvious portal hypertensive changes or ascites, some changes c/f chronic panc. No blush seen. Patient has had ongoing melena since admission but no observed hematemesis. Not on O2 in setting of COVID PNE. ??Patient has been maintained on PPI BID. GI was tele consulted and advised to keep NPO for EGD tomorrow AM, in case he becomes unstable EGD as emergent procedure. Reasonable to continue to monitor off octreotide at this time. ??Hospital medicine was contacted and patient was admitted for further work-up. ?? Upon arrival to unit patient is hemo-dynamically stable,??no acute distress no bleeding noticed,??he is oriented x2,??denies any chest pain or any abdominal pain,??is lying comfortably on bed,??cachectic appearing,??he denies any fever cough or shortness of breath,??no palpitations no sick contacts,??no joint pains,??he denies any nausea vomiting.?But has not noticed his bowel color or melena,??he does not have insight about his GI bleed suspicion.?Nods yes or no to most questions,??unable to give detailed history and review of system.?Complete survey and relevant review of system otherwise seems to be unremarkable.?? Hospital Course (by problem list): #Suspected upper GI bleed #Possibly underlying liver cirrhosis Patient had a history of previous upper GI bleeding 2017,??found to have esophagitis and blood in distal esophagus. Extensive esophageal history could contribute to upper GI bleed likelihood. Patientwas transfers from OSH due to drop in hemoglobin. The patient was placed on ceftriaxone for cirrhosis and GI bleed empirically while inpatient. However, second read of abdominal CT scan did not show any acute process and did not confirm cirrhosis. Despite Covid positivity, EGD was performed on 04/15 which showed: The GEJ/esophago-gastric anastomosis was located at 35 cm from the incisors and was healthy/normal appearing. The gastric mucosa appeared normal, but was friable and oozed with contactin a few locations the examined duodenum was normal. After monitoring hbg for 3 days without any significant decreases the patient was discharged. His aspirin was held at discharge and he was asked to avoid NSAIDs. ?? #Covid positive #No hypoxia and inflammatory markers are with severe elevation,??high risk for acute deterioration by classification due to comorbid conditions Patient was a started on remdesivir at OSH, and completed the remdesivir course on 04/14 without adverse effects. The patient was also given monoclonal antibody as per the chart review on 04/10. The patient was not in respiratory distress and was breathing on RA throughout the hospital course. ?? All other problems were managed but unchanged during this hospital course. The management of all other problems is the same as prior to admission. Vital Signs at Discharge: BP: 131/84, Heart Rate: 72, Temp: 36.6 ??C (97.9 ??F), Resp: 20, Height: 167.6 cm (5' 6) (04/13/21 1730) Functional and Cognitive Status: Stable, ambulating without support, tolerating regular consistencydiet, afebrile, saturating well on room air. Important Studies and Lab Data: Labs: Last 3 wbc, hgb, hct plt Recent Labs 04/15/21 0937 04/14/21 1430 04/13/212006 WBC 5.6 5.8 6.7 HGB 10.5* 10.7* 10.6* HCT 31.4* 30.1* 31.4* PLATELET 162 137* 116* Last 3 Lytes Recent Labs 04/16/21 1208 04/15/21 0937 04/14/21 1430 NA 136 135 135 K 3.6 3.0* 3.2* CL 108* 106 108* CO2 19* 18* 20* BUN 10 11 14 CREATININE 0.66* 0.55* 0.59* Last 3 Coags Recent Labs 04/13/21 2007 PT 15.3* INR 1.3 PTT 33 Studies: EGD 04/16 Impression: ?- Healthy appearing esophago-gastric ?anastomosis ?- Normal appearing but friable ?gastric mucosa with mild contact ?oozing. ?- Normal examined duodenum. ?- No specimens collected. Recommendation: ?- [facility] patient to [facility] for ?ongoing care. ?- Resume previous diet. ?- Observe patient's clinical course. Results for orders placed or performed during the hospital encounter of 04/13/21 XR Chest One View (Exam End: 04/13/2021 9:13 PM) Impression 1. Patchy bilateral airspace opacities, consistent with patient's history of COVID. 2. Taking differences in technique into account stable dilated loop of colon in the left upper quadrant. Preliminary report signed by: Ronald Morfin at 04/13/2021 9:27 PM I have personally reviewed the image(s) and the resident's interpretation and agree with the findings, Keli Mercedes MD at 04/13/2021 11:04 PM Thank you for letting us participate in the care of this patient. If you are a health care provider and have any questions regarding this report, please contact the number below. For patients who have questions please contact the health care director that requested your imaging first. Request For 2nd Read CT Chest Abdomen Pelvis (Exam End: 04/13/2021 7:27 PM) Impression 1. There is no pulmonary embolism. 2. Consolidative changes within the lung bases, debris within the airways, and a large hiatal hernia with fluid in the esophagus. These findings are concerning for aspiration. 3. Severe emphysema. 4. No acute intra-abdominal process. I have personally reviewed the image(s) and the resident's interpretation and agree with the findings, Shaun De Los Santos MD at 04/14/2021 9:34 AM Thank you for letting us participate in the care of this patient. If you are a health care provider and have any questions regarding this report, please contact the number below. For patients who have questions please contact the health care director that requested your imaging first. Microbiology Results (Last 30 days) Procedure Component Value Units Date/Time Blood culture [[id number]] Collected: 04/13/212006 Lab Status: Preliminary result Specimen: Blood from Forearm, Left Updated: 04/15/212300 Blood Culture No growth at 2 days. Blood culture [[id number]] Collected: 04/13/212006 Lab Status: Preliminary result Specimen: Blood from Hand, Right Updated: 04/15/212300 Blood Culture No growth at 2 days. COVID-19 PCR [[id number]] (Abnormal) Collected: 04/13/211750 Lab Status: Final result Specimen: Nasopharyngeal Swab Updated: 04/13/212018 SARS-CoV-2 RNA PCR Detected Comment: This result should be interpreted in combination with the clinical observations, patient history and epidemiological information. For testing of asymptomatic individuals, assay performance characteristics and clinical utility have not been evaluated. Testing for SARS-CoV-2 (Severe acute respiratory syndrome coronavirus 2, formerly known as 2019 novel coronavirus or 2019-nCoV) to aid in the diagnosis of COVID-19 is performed using the Simplexa COVID-19 Direct Assay by [employer] as authorized by the FDA issued Emergency Use Authorization (EUA). This assay is intended for In-vitro Diagnostic (IVD) use with nasopharyngeal swabs collected from individuals meeting the CDC criteria for testing. The assay is performed based on the instructions for use and additional guidance provided by the FDA. Testing is performed in the Microbiology Laboratory within the Department of Pathology and Laboratory Medicine at [facility], certified under the Clinical Laboratory Improvement Amendments of 1988 (CLIA), 42 U.S.C. section 263a, to perform high complexity tests. Assay performance has been verified according to clinical laboratory regulatory requirements. Test results are provided above. A result of Not Detected indicates that the viral RNA target is not present but does not preclude SARS-CoV-2 infection. False negative results may occur if a specimen is improperly collected, transported or handled; if amplification inhibitors are present; or if inadequate numbers of viral particles are present in the specimen. A result of Detected suggests a current or recent infection and the patient is presumed to be infected. Positive and negative predictive values for this test are highly dependent on disease prevalence. A result of Invalid indicates the inability to conclusively determine the presence or absence of SARS-CoV-2 RNA in the sample which can be due to a variety of factors. Recollection is recommended in the case of an invalid result. CDC COVID-19 criteria for testing on human specimens and clinical management guidance information are available at the CDC Coronavirus Disease 2019 (COVID-19) webpage under Information for Healthcare Professionals (https://www.cdc.gov/coronavirus/2019-ncov/hcp/index.html). Additional information about this and other EUA tests can be found in provider and patient fact sheets at the following FDA website: https://www.fda.gov/medical-devices/pwzhfpsqodf-akrtujk-8607-xiwkt-77-fuxigurkv- zax-dxodxfmwtxwzqy-maavufv-devices/iauvw-yzhvmqqavlz-vrrn SARS-CoV-2 Source CORPORATE SECURITIES RESEARCH ANALYST Swab Pending Studies and Lab Data: None Discharge Conditions/Prognosis: Stable Discharge to: Home Updated Allergies/ADRs: No Known Allergies Immunizations Given this Hospitalization: Immunization History Administered Date(s) Administered ??? Influenza Vaccine, Whole 06/06/2007 ??? Pneumococcal Polyvalent 23 06/06/2005 Discharge Medications: Your Medications Continued medications with new dosing Dose Details pantoprazole EC 40 mg Tbec Commonly known as: Protonix Take 1 tablet by mouth 2 times daily. What changed: ?? when to take this ?? Another medication with the same name was removed. Continue taking this medication, and follow the directions you see here. 40 mg Quantity: 90 tablet Refills: 0 Continued medications, unchanged Dose Details atorvastatin 10 mg Tab Commonly known as: Lipitor Take 10 mg by mouth daily. 10 mg Refills: 0 buPROPion SR 150 mg Sr12 Commonly known as: Wellbutrin SR Take 1 tablet by mouth 2 times daily. 150 mg Quantity: 60 tablet Refills: 3 cholecalciferol (Vitamin D3) 50 mcg (2,000 unit) Tab Take 2,000 Units by mouth daily. 2,000 Units Refills: 0 clotrimazole 10 mg Troc Commonly known as: Mycelex Dissolve one in mouth three times daily after brushing teeth after each meal Quantity: 90 tablet Refills: 0 Combivent 18-103 mcg/actuation Aero Generic drug: albuterol-ipratropium Refills: 0 Ferrous Sulfate 325 mg (65 mg iron) Cpsr Refills: 0 folic acid 1 mg Tab Commonly known as: Folvite 1mg, PO, QD Refills: 0 furosemide 40 mg Tab Commonly known as: Lasix Take 40 mg by mouth See Admin Instructions. 80mg in the morning, 40mg at noon 40 mg Refills: 0 gabapentin 300 mg Cap Commonly known as: Neurontin Take 300 mg by mouth 3 times daily. 300 mg Refills: 0 HYDROcodone-acetaminophen 10-325 mg Tab Commonly known as: [place] Take 1 tablet by mouth 2 times daily. 1 tablet Refills: 0 metFORMIN 500 mg Tab Commonly known as: Glucophage Refills: 0 methyl salicylate-menthoL 15-10 % Crea Commonly known as: Bengay Apply 1 Application topically 2 times daily. 1 Application Quantity: 30 g Refills: 0 metoprolol tartrate 25 mg Tab Commonly known as: Lopressor Take 0.5 tablets by mouth 2 times daily. 12.5 mg Quantity: 30 tablet Refills: 3 nicotine 21 mg/24 hr Pt24 Commonly known as: Nicoderm CQ Place 1 patch onto the skin daily. 1 patch Quantity: 28 patch Refills: 0 nitroGLYcerin 0.4 mg Subl Commonly known as: Nitrostat Refills: 0 Spiriva with HandiHaler 18 mcg Cpdv Inhale 18 mcg into the lungs daily. Generic drug: tiotropium 18 mcg Refills: 0 thiamine Commonly known as: Vitamin B1 Take 1 tablet by mouth daily. 100 mg Quantity: 30 tablet Refills: 3 STOPPED Medications aspirin EC 81 mg Tbec sucralfate 100 mg/mL Susp Commonly known as: Carafate Smoking Status at Discharge: Social History Tobacco Use Smoking Status Former Smoker ??? Types: Cigarettes Smokeless Tobacco Never Used Instructions Given to Patient at Discharge: Patient Instructions Instructions on Discharge to Home Why you were hospitalized - upper GI bleed and Covid-19 infection. Call your doctor or seek medical attention if you develop the following - chest pain, shortness of breath, fever, cough, weakness in an arm or leg Activity level - no restrictions Diet - no change in previous diet Driving - as before hospitalization Shower/Bath - permitted Wound Care - none Home Oxygen therapy - NA Specific instructions related to your condition: Avoid NSAIDs Do not resume aspiring without approval from your PCP in the next clinic visit Follow-up: No future appointments. PCP follow up on 04/24 at 12:30pm Your Inpatient Doctor: Shaunna Nichole MD Your Primary Care Provider: Silvina Perdue MD [phone] For questions regarding this document or issues relating to this hospitalization on the Medical Service, please contact your inpatient physician through the [facility] [employer] . Issues afterhours and on weekends will be handled by the Hospitalist staff on-call. General Instructions YOU ARE SCHEDULED FOR A FOLLOW UP APPOINTMENT WITH YOUR PRIMARY CARE PROVIDER, DR SILVINA PERDUE, ON 04/24/21 AT 12:30PM Discharge References/Attachments None documented in this encounter Discharge Instructions * Discharge Instructions* Gela Flores CMA - 04/16/2021 3:10 PM EST YOU ARE SCHEDULED FOR A FOLLOW UP APPOINTMENT WITH YOUR PRIMARY CARE PROVIDER, DR SILVINA PERDUE, ON 04/24/21 AT 12:30PM * Patient Instructions* Shaunna Nichole MD - 04/16/2021 12:20 PM EST Instructions on Discharge to Home Why you were hospitalized - upper GI bleed and Covid-19 infection. Call your doctor or seek medical attention if you develop the following - chest pain, shortness of breath, fever, cough, weakness in an arm or leg Activity level - no restrictions Diet - no change in previous diet Driving - as before hospitalization Shower/Bath - permitted Wound Care - none Home Oxygen therapy - NA Specific instructions related to your condition: Avoid NSAIDs Do not resume aspiring without approval from your PCP in the next clinic visit Follow-up: No future appointments. PCP follow up on 04/24 at 12:30pm Your Inpatient Doctor: Shaunna Nichole MD Your Primary Care Provider: Silvina Perdue MD [phone] For questions regarding this document or issues relating to this hospitalization on the Medical Service, please contact your inpatient physician through the [facility] [employer] . Issues afterhours and on weekends will be handled by the Hospitalist staff on-call. documented in this encounter Medications at Time of Discharge [...] tablet 10/03/2009 documented as of this encounter Progress Notes * Lliy Mendoza - 04/16/2021 4:08 PM ESTSummary: Transportation Confirmed Discharge Transportation confirmed: Spoke with [place] from [facility] [employer] who confirmed a team driver provided by architecture faculty member, Jeffrey will arrive to pick patient up at discharge [facility] at 16:30 en route to [address] [place] [address]. [facility] [address]. Bedside nurse notified via [facility] chat. Pt has medicaid, but medicaid transportation company [facility] is closed today for . OCM approved charge * Shaunna Nichole MD - 04/16/2021 12:33 PM EST Hospital Medicine - Attending Day of Discharge Documentation Discharge diagnosis Active Hospital Problems Diagnosis ??? GIB (gastrointestinal bleeding) Resolved Hospital Problems No resolved problems to display. Secondary Issues Active Non-Hospital Problems Diagnosis ??? Iron deficiency anemia due to chronic blood loss ??? ETOH abuse ??? History of GI tract cancer ??? Paroxysmal atrial fibrillation ??? History of ASCVD ??? Chronic back pain ??? Type 2 diabetes mellitus with neurologic complication, without long-term current use of insulin ??? Pancreatitis c/b pseudocyst/cyst 2003 ??? Depression ??? COPD (chronic obstructive pulmonary disease) ??? Tobacco abuse disorder ??? Acute upper GI bleed I have personally seen and examined the patient and they are ready for discharge. Select the appropriate statement that describes your involvement and care and omit the other: I spent >30 minutes (Day of Discharge Code 34415) involved in the final examination of the patient, discussion of the hospital stay, instructions for continuing care to all relevant caregivers, and preparation of discharge records, prescriptions and referral forms. Plans ? Discharge to Home ? Follow-up scheduled with PCP ? Please see the Discharge Summary for complete details of any medication changes and additional plans. * Shira Giraldo, PT - 04/16/2021 10:01 AM EST Physical Therapy Evaluation Patient profile: Nain is a 70 year old male known to have h/o esophageal cancer s/p distal esophagectomy/subtotal gastrectomy with EG anastomosis (?pre- 2001, no records available), UGIB (2017, unclear source), EtOH use disorder (unclear last drink without a known liver hx), A Fib not on anticoagulation, CAD s/p CABG (on ASA), COPD (not on O2), h/o chronic pancreatitis, DM with neuropathic pains, ??got admitted to [facility] on 04/11 with altered mental status; also Covid positive. Patient with the following active problems: Past Medical History: Diagnosis Date ??? Chronic back pain 09/14/2017 On chronic narcotics ??? COPD (chronic obstructive pulmonary disease) 09/14/2017 Not on home 02 or chronic steroids ??? Depression 09/14/2017 ??? ETOH abuse 09/14/2017 Daily use: 6 pack 12oz beer, 2 shots primo ??? History of ASCVD 09/14/2017 S/p 4v CABG - on ASA ??? History of GI tract cancer 09/14/2017 ??? Iron deficiency anemia due to chronic blood loss 09/14/2017 ??? Pancreatitis c/b pseudocyst/cyst 2004 09/14/2017 ??? Paroxysmal atrial fibrillation 09/14/2017 On Eliquis ??? Tobacco abuse disorder 09/14/2017 ??? Type 2 diabetes mellitus with neurologic complication, without long-term current use of insulin09/14/2017 On Metformin and Gabapentin Past Surgical History: Procedure Laterality Date ??? PRO UPPER GI ENDOSCOPY, CTRL BLEED 09/18/2017 EGD, W CONTROL OF BLEEDING, ANY METHOD performed by Zain Sifuentes MD at [facility] ENDOSCOPY ??? PRO UPPER GI ENDOSCOPY, DIAGNOSTIC N/A 09/13/2017 EGD, UPPER GI ENDOSCOPY performed by Marixa Vidales MD at [facility] ENDOSCOPY ??? PRO UPPER GI ENDOSCOPY, DIAGNOSTIC N/A 04/15/2021 EGD, UPPER GI ENDOSCOPY performed by Kelvin Smith MD at [facility] MAIN OR Social History: Patient reports he lives with his friend Lyudmila in a one-level home with 4 ARACELIS (railing present). At his baseline, patient is independent with his mobility, ADL tasks, and day-to-day activities. 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 Lyudmila is retired and available to assist patient with providing food while patient quarantines (they each have their separate room). Patient's bathroom includes a walk-in shower with a seat. He reports he enjoys spending time with his [place] ceron. Precautions/Special Considerations: Contact and Airborne (COVID-19), fall risk Mobility and Positioning Recommendations: ?? Pt uses RW and supervision ?? Please encourage up to chair for meal times as able. ?? Pt encouraged to ambulate frequently with staff, getting into the bathroom for toileting and walking out in the posey >/= 3 times daily as able. Subjective: ???I am hoping to go home Objective: Pt seen for PT evaluation today. Pain: Chest discomfort when coughing; was encouraged to splint with pillow Vital Signs: SpO2 93% ora HR 106-122 (with mobility) Mental Status: alert, oriented to person, place, and time Vision: WFL Musculoskeletal: ROM: BLE WFL Strength: deconditioned, but was able to rise and ambulate with a RW Sensation: denied N&T Bed Mobility: Supine to Sit: independent Sit to Supine: independent Transfers: Sit to Stand: supervision with RW Stand to Sit: supervision with RW Bed to Chair: supervision with RW Gait: Distance: room distance x 2 Device used: RW Level of assist: supervision Gait mechanics: slow, steady with walker Stairs: NT, pt reports he plans on using the railing and has no difficulty getting up 4 steps Balance: Sitting Static: good Sitting Dynamic: fair Standing Static: fair with walker Standing Dynamic / Gait: fair with walker Patient was instructed in: -Activity pacing, energy conservation -Alternating tasks/activities with rest breaks at home; easing back into daily routines -Using the RW at home Education: Patient has been educated on Bed mobility, Transfers, Assistive device/technique, Breathing exercises, Safety , Precautions/protocol, Gait , Activity pacing/Energy conservation, Role of therapy, Balance and Discharge planning and verbalizes understanding. Patient status, treatment, and mobility recommendations discussed with nursing. Assessment: Nain Kang was seen today for physical therapy evaluation and presents with thefollowing impairments: Decreased activity tolerance, pain, impaired balance, and an overall compromised mobility status compared to his independent baseline, all of which impact patient's current functional level. During this assessment, patient was able to stand and ambulate in the room with a RW and supervision. Patient education was provided, including using his walker at home. Patient reports his friend Lyudmila can assist him with providing food and running his errands; he plans on quarantining in his room. No further inpatient PT need identified; pt reports he is discharging today. Discharge Recommendations: Based on the current findings, Anticipated Discharge Disposition (PT): home with supervision when medically ready for hospital discharge. Consult Recommendations: No other consults recommended at this time. Equipment needs: Patient has all necessary equipment Plan: Therapy Frequency (PT): monitor 2017 PT Evaluation Code Rationale: ?? Diagnosis & Pertinent Co-Morbidities, personal factors, and present illness affecting Plan of Care: (see above); Additional personal factors or co- morbidities that impact plan: ?? Total # of Factors: 0 1-2 3+ x ?? Examination of body system impairments, functional limitations and behaviors, and/or participation restrictions. Addressing 1-2 elements Addressing 3 + elements x Addressing 4 + elements ?? Clinical presentation: See assessment above. Stable/Uncomplicated Evolving/Fluctuating Symptoms Unstable/Unpredictable x ?? Clinical decision making of low complexity based on pt's functional performance as outlined in this evaluation. Time IN / OUT: [id number] Shira Giraldo DPT Board-Certified Clinical Specialist in Geriatric Physical Therapy Board-Certified Clinical Specialist in Neurologic Physical Therapy Inpatient Rehabilitation Pager #[phone] * Treva Powell, OT - 04/16/2021 10:01 AM EST Occupational Therapy Evaluation Patient profile: Nain is a 70 year old male known to have h/o esophageal cancer s/p distal esophagectomy/subtotal gastrectomy with EG anastomosis (?pre- 2001, no records available), UGIB (2018, unclear source), EtOH use disorder (unclear last drink without a known liver hx), A Fib not on anticoagulation, CAD s/p CABG (on ASA), COPD (not on O2), h/o chronic pancreatitis, DM with neuropathic pains, ??got admitted to [facility] on 04/11 with altered mental status; also Covid positive. Past Medical History: Diagnosis Date ??? Chronic back pain 09/14/2017 On chronic narcotics ??? COPD (chronic obstructive pulmonary disease) 09/14/2017 Not on home 02 or chronic steroids ??? Depression 09/14/2017 ??? ETOH abuse 09/14/2017 Daily use: 6 pack 12oz beer, 2 shots primo ??? History of ASCVD 09/14/2017 S/p 4v CABG - on ASA ??? History of GI tract cancer 09/14/2017 ??? Iron deficiency anemia due to chronic blood loss 09/14/2017 ??? Pancreatitis c/b pseudocyst/cyst 2004 09/14/2017 ??? Paroxysmal atrial fibrillation 09/14/2017 On Eliquis ??? Tobacco abuse disorder 09/14/2017 ??? Type 2 diabetes mellitus with neurologic complication, without long-term current use of insulin09/14/2017 On Metformin and Gabapentin Past Surgical History: Procedure Laterality Date ??? PRO UPPER GI ENDOSCOPY, CTRL BLEED 09/18/2017 EGD, W CONTROL OF BLEEDING, ANY METHOD performed by Zain Sifuentes MD at [facility] ENDOSCOPY ??? PRO UPPER GI ENDOSCOPY, DIAGNOSTIC N/A 09/13/2017 EGD, UPPER GI ENDOSCOPY performed by Marixa Vidales MD at [facility] ENDOSCOPY ??? PRO UPPER GI ENDOSCOPY, DIAGNOSTIC N/A 04/15/2021 EGD, UPPER GI ENDOSCOPY performed by Kelvin Smith MD at [facility] MAIN OR Social History: Patient reports he lives with his friend Lyudmila in a one-level home with 4 ARACELIS (railing present). At his baseline, patient is independent with his mobility, ADL tasks, and day-to-day activities. 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 Lyudmila is retired and available to assist patient with providing food while patient quarantines (they each have their separate room). Patient's bathroom includes a walk-in shower with a seat. He reports he enjoys spending time with his Derby terrier. ?? Precautions/Special Considerations: Contact and Airborne (COVID-19), fall risk Subjective: I can have as much help as I need at home. Objective: Seen today for OT evaluation. ??? Cognitive Status/Behavior: o Behavior / Mood: alert and cooperative o Alert and oriented to: person, place, time and situation o Follows commands: multi step ??? Musculoskeletal: o ROM: WFL o Strength: deconditioned but grossly WFL ??? Activities of Daily Living: o Self-feeding: n/a - independent o Dressing: did not demonstrate, pt has adequate strength/ROM, denies concerns re: dressing self upon d/c o Toileting: SBA per RN ??? Functional Mobility: o Sit to stand: independent o Ambulation: supervision with walker, room distance o Stand to sit: independent ??? Balance: o Sitting balance: good o Standing balance: good with walker ??? IADL???s: Assistance available to patient. ??? Vitals: SpO2 93% on RA, brief dip to 88% but recovered within seconds, HR 122 with activity ??? Pain: chest discomfort from coughing Education: ADL, Safety, Functional Mobility, Activity pacing/Energy conservation and Recommendations Patient status, treatment, and mobility recommendations discussed with nursing. Assessment: Pt has been seen for occupational therapy evaluation. Nainnapoleon Kang presents with the following performance skill deficits and client factors: decreased activity tolerance. Pt able to ambulate short distance with supervision and walker. Pt reports adequate support from his friend Lyudmila for ADLs if needed. Educated pt re: energy conservation and pacing. Anticipate that pt will return home with assistance once medically ready. Do not anticipate further OT needs while hospitalized. Equipment needs at discharge: none Anticipated Discharge Disposition (OT): home Plan: Therapy Frequency (OT): evaluation only Total Minutes, Occupational Therapy: 20 (eval) 2017 OT Evaluation Code Rationale: ?? Diagnosis & Pertinent Co-Morbidities affecting Plan of Care: see PMHx ?? Occupational Profile & Client History: Brief Expanded Extensive X ?? Assessment of Occupational Performance: 1-3 performance deficits X 3-5 performance deficits 5 + performance deficits ?? Clinical Decision Making: Low Moderate High X Clinical decision making of low complexity using standardized patient assessment instrument and measurable assessment of functional outcome. Pager: [phone] TREVA POWELL OT 04/16/2021 Occupational Therapy Rehabilitation Department * Shaunna Nichole MD - 04/15/2021 1:44 PM EST Hospital Medicine Attending Daily Progress Note Admit Date: 04/13/2021 Hospital Day 2 days Active Hospital Problems Diagnosis ??? GIB (gastrointestinal bleeding) Resolved Hospital Problems No resolved problems to display. PMH Active Non-Hospital Problems Diagnosis ??? Iron deficiency anemia due to chronic blood loss ??? ETOH abuse ??? History of GI tract cancer ??? Paroxysmal atrial fibrillation ??? History of ASCVD ??? Chronic back pain ??? Type 2 diabetes mellitus with neurologic complication, without long-term current use of insulin ??? Pancreatitis c/b pseudocyst/cyst 2003 ??? Depression ??? COPD (chronic obstructive pulmonary disease) ??? Tobacco abuse disorder ??? Acute upper GI bleed Inpatient Medications: Scheduled ??? potassium chloride ER 40 mEq Oral Q4H ??? insulin lispro 1-5 Units Subcutaneous TID AC ??? atorvastatin 40 mg Oral Daily ??? buPROPion SR 150 mg Oral BID ??? folic acid 1,000 mcg Oral Daily ??? metoprolol tartrate 12.5 mg Oral BID ??? thiamine 500 mg Intravenous Daily ??? pantoprazole 40 mg Intravenous BID ??? cefTRIAXone 1 g Intravenous Q24H ??? sodium chloride 0.9 % (flush) 5 mL Intravenous BID ??? sodium chloride 0.9 % (flush) 5 mL Intravenous BID Continuous infusions: ??? sodium chloride 0.45% 100 mL/hr (04/15/21 1102) PRN: glucose 40% oral geL OR dextrose 10% OR glucagon, ipratropium- albuteroL, nitroGLYcerin, sodium chloride 0.9 % (flush), lidocaine, sodium chloride 0.9 % (flush) Interval History: Pt seen and examined. Reports no new issues on interviewing. Hoping to go home soon after the endoscope. ROS: as noted above Physical Exam Vitals Range last 24 hrs Temperature Temp: [36.4 ??C (97.5 ??F)-36.8 ??C (98.2 ??F)] Heart Rate Heart Rate: [72] Blood Pressure BP: (108-121)/(71-76) Respiratory Rate Resp: [18-24] SpO2 SpO2: [93 %-94 %] Intake/Output Summary (Last 24 hours) at 04/15/2021 1344 Last data filed at 04/15/2021 0944 Gross per 24 hour Intake 1471.67 ml Output 575 ml Net 896.67 ml No data found. Body mass index is 22.52 kg/m??. Physical Exam Awake alert oriented x 1-2, no distress Saturation maintaining on room air 98-99% Severe cachexia, protein calorie malnutrition Chest scattered crepitations, no wheezing CVS S1 and S2 and no added sound Abd soft, NT , has loss of ribs at left upper quadrant, bulging bowels, no tenderness 1+ edema in the lower extremities seems to have more dependent edema Well perfused and warm peripheries Studies reviewed in eDH. Remarkable for the following: LABS: Last 3 wbc, hgb, hct plt Recent Labs 04/15/21 0904/14/21 1430 04/13/212006 WBC 5.6 5.8 6.7 HGB 10.5* 10.7* 10.6* HCT 31.4* 30.1* 31.4* PLATELET 162 137* 116* Last 3 Lytes Recent Labs 04/15/21 0937 04/14/21 1430 04/13/212006 NA 135 135 137 K 3.0* 3.2* 3.6 CL 106 108* 110* CO2 18* 20* 21* BUN 11 14 18 CREATININE 0.55* 0.59* 0.65* Last 3 LFTs Recent Labs 04/15/21 0937 04/14/21 1430 04/13/212006 AST 21 18 19 ALT 10 8 10 ALKPHOS 106 91 94 BILITOT 0.8 0.9 1.0 BILIDIR -- -- 0.6* FSBG Trend Recent Labs 04/15/21 1206 04/15/21 1107 04/15/21 0727 04/14/21 2214 04/14/21 2150 04/14/21 1616 04/14/21 1605 04/14/21 1551 04/14/21 1123 04/14/21 0904 POCGLU 135 66 73 87 66 97 65 60* 76 88 MICRO: No results for input(s): URINECULTURE in the last 720 hours. No results for input(s): GRAMSTAIN, BFCX, LOWERRESPCX, TISSUECX in the last 720 hours. Recent Labs 04/13/212006 BLOODCX No growth at 1 day. No growth at 1 day. ECG: Recent Labs 04/13/21 1829 DIAGLINE Atrial fibrillation Possible Right ventricular hypertrophy Nonspecific T wave abnormality , probably digitalis effect Abnormal ECG When compared with ECG of 21-AUG-2008 16:12, Atrial fibrillation has replaced Sinus rhythm QRS voltage has decreased Confirmed by MD Javon, Manish Han ([id number]) on 04/14/2021 12:22:00 PM QTCCALC 446 VASCULAR: No results for input(s): VBTEXTRPT in the last 720 hours. IMAGING: Results for orders placed or performed during the hospital encounter of 04/13/21 XR Chest One View (Exam End: 04/13/2021 9:13 PM) Impression 1. Patchy bilateral airspace opacities, consistent with patient's history of COVID. 2. Taking differences in technique into account stable dilated loop of colon in the left upper quadrant. Preliminary report signed by: Ronald Morfin at 04/13/2021 9:27 PM I have personally reviewed the image(s) and the resident's interpretation and agree with the findings, Keli Mercedes MD at 04/13/2021 11:04 PM Thank you for letting us participate in the care of this patient. If you are a health care provider and have any questions regarding this report, please contact the number below. For patients who have questions please contact the health care director that requested your imaging first. Request For 2nd Read CT Chest Abdomen Pelvis (Exam End: 04/13/2021 7:27 PM) Impression 1. There is no pulmonary embolism. 2. Consolidative changes within the lung bases, debris within the airways, and a large hiatal hernia with fluid in the esophagus. These findings are concerning for aspiration. 3. Severe emphysema. 4. No acute intra-abdominal process. I have personally reviewed the image(s) and the resident's interpretation and agree with the findings, Shaun De Los Santos MD at 04/14/2021 9:34 AM Thank you for letting us participate in the care of this patient. If you are a health care provider and have any questions regarding this report, please contact the number below. For patients who have questions please contact the health care director that requested your imaging first. R Studies: Assessment: 70 year old male known to have h/o esophageal cancer s/p distal esophagectomy/subtotal gastrectomy with EG anastomosis (?pre-2001, no records available), UGIB (2017, unclear source), EtOH use disorder (unclear last drink without a known liver hx), A Fib not on anticoagulation, CAD s/p CABG (on ASA), COPD (not on O2), h/o chronic pancreatitis, DM with neuropathic pains, got admitted to [facility] on 04/11 with altered mental status. Of note, patient was COVID PCR positive on 04/10, he was discharged home as maintaining saturation on room air, he was brought back due to melena as noted by roommate and he was admitted to OSH. While at [facility], patient has had BP hovering around 90/60, HR high 80s. Hb was13.6 on admission which has since downtrended to 8.9 despite 2u pRBCs, receiving another unit on the day of transfer. INR 1.3, PLT 110. His other inflammatory markers were not significantly elevated,he underwent a CTA T/A/P (04/10/21) w/ grossly normal-appearing liver, no obvious portal hypertensive changes or ascites, some changes c/f chronic panc. No blush seen. Patient has had ongoing melena since admission but no observed hematemesis. Not on O2 in setting of COVID PNE. Patient has been maintained on PPI BID. GI was tele consulted and advised to keep NPO for EGD in AM, in case he becomes unstable EGD as emergent procedure. Reasonable to continue to monitor off octreotide at this time. Hospital medicine was contacted and patient was admitted for further work- up. EGD pushed for today as no space was available in OR yesterday. ? #Suspected upper GI bleed #Possibly underlying liver cirrhosis Patient had a history of previous upper GI bleeding 2017, found to have esophagitis and blood in distal esophagus Transfer from OSH due to drop in hemoglobin, and given Covid positivity could not to perform EGD GI is aware about the patient will keep n.p.o. for possible EGD IV PPI Gentle IV fluid N.p.o. Patient on ceftriaxone for cirrhosis and GI bleed empirically To larger bore IV needles and H&H monitoring ?? #Covid positive #No hypoxia and inflammatory markers are with severe elevation, high risk for acute deterioration by classification due to comorbid conditions Patient was a started on remdesivir at OSH, have completed remdesivir course Patient was also given monoclonal antibody as per the chart review on 04/10 Follow inflammatory markers Patient on ceftriaxone for SBP prophylaxis for possible cirrhosis and ongoing GI bleed ?? #Other issues Coronary artery disease post CABG -holding off aspirin for now, resume when a stable Heart failure -we will obtain an echo and continue GDMT as tolerated, patient has been on spironolactone and Bumex 2 mg twice a day, can resume at discharge History of esophageal cancer and esophagectomy 2000 History of A. fib not on anticoagulation due to previous history of severe GI bleed Diabetes mellitus -continue inpatient sliding scale ?? Admit to hospital medicine Physical Therapy referral DVT Prophylaxis If currently a smoker - advised about smoking cessation and will provide smoking cessation materialand support. Pneumovax and Influenza Immunizations given as needed. Discussed Advanced Directives and Code Status. The patient wishesto be Full code. Anticipated Disposition: Patient might need short-term or long-term rehabilitation for recovery Goals of Care: Team Pager( Coverage 27/12): #[phone] PCP: Silvina Perdue MD [phone] Attestation: IPI Certification I certify that I am a [facility] credentialed attending provider with admitting privileges and that the patient meets or has met medical necessity to require an inpatient IPI level of care meeting a minimumof two midnights or is on the CMS inpatient only procedure list (status C) due to: GI bleed. Shaunna Nichole MD 04/15/2021 * Mis Orozco RN - 04/14/2021 3:56 PM EST OUTCOME EVALUATION NOTE: OUTCOME SUMMARY: Pt A&Ox2-3 throughout day. Maintaining O2 sats on RA, VSS. NPO for possible scope. BG low with AM and afternoon check, glutose gel given, MD aware. Fluids started since NPO and decreased urine output. Bolus given. Bladder scan 176, continuing to monitor. Up to chair during afternoon with x1-2 assist. PLAN MOVING FORWARD: Trend CBC Monitor BG Mobility INDIVIDUALIZED FALL PREVENTION INTERVENTIONS: Patient-specific fall risk factors per assessment: [current deficits]: Lines, hospital setting, confusion Assistance [level of assistance required for transfers and ambulation]: X1 assist Supervision [direct monitoring required during toileting and ADLs]: X1 assist Surveillance [continuous indirect monitoring]: Masimo, tele, bed alarm, chair alarm Patient-specific fall prevention interventions for sensory deficits provided, if applicable: N/A CPG GOAL OUTCOME EVALUATION: * Shaunna Nichole MD - 04/14/2021 1:55 PM EST Hospital Medicine Attending Daily Progress Note Admit Date: 04/13/2021 Hospital Day 1 day Active Hospital Problems Diagnosis ??? GIB (gastrointestinal bleeding) Resolved Hospital Problems No resolved problems to display. PMH Active Non-Hospital Problems Diagnosis ??? Iron deficiency anemia due to chronic blood loss ??? ETOH abuse ??? History of GI tract cancer ??? Paroxysmal atrial fibrillation ??? History of ASCVD ??? Chronic back pain ??? Type 2 diabetes mellitus with neurologic complication, without long-term current use of insulin ??? Pancreatitis c/b pseudocyst/cyst 2003 ??? Depression ??? COPD (chronic obstructive pulmonary disease) ??? Tobacco abuse disorder ??? Acute upper GI bleed Inpatient Medications: Scheduled ??? remdesivir 200 mg Intravenous Q24H ??? insulin lispro 1-5 Units Subcutaneous TID AC ??? atorvastatin 40 mg Oral Daily ??? buPROPion SR 150 mg Oral BID ??? folic acid 1,000 mcg Oral Daily ??? metoprolol tartrate 12.5 mg Oral BID ??? thiamine 500 mg Intravenous Daily ??? pantoprazole 40 mg Intravenous BID ??? cefTRIAXone 1 g Intravenous Q24H ??? sodium chloride 0.9 % (flush) 5 mL Intravenous BID ??? sodium chloride 0.9 % (flush) 5 mL Intravenous BID Continuous infusions: ??? sodium chloride 0.45% 100 mL/hr (04/14/21 1250) PRN: glucose 40% oral geL OR dextrose 10% OR glucagon, ipratropium- albuteroL, nitroGLYcerin, sodium chloride 0.9 % (flush), lidocaine, sodium chloride 0.9 % (flush) Interval History: Pt seen and examined. Reports no new issues on interviewing. Noted to have low UOand was started on maintenance fluids. Awaiting GI plan of action. ROS: as noted above Physical Exam Vitals Range last 24 hrs Temperature Temp: [36.2 ??C (97.2 ??F)-36.7 ??C (98 ??F)] Heart Rate Heart Rate: [71-75] Blood Pressure BP: (109-119)/(72-80) Respiratory Rate Resp: [18-20] SpO2 SpO2: [95 %-98 %] Intake/Output Summary (Last 24 hours) at 04/14/2021 1355 Last data filed at 04/14/2021 1100 Gross per 24 hour Intake -- Output 700 ml Net -700 ml No data found. Body mass index is 22.52 kg/m??. Physical Exam Awake alert oriented x1-2, no distress lying flat on bed Saturation maintaining on room air 98-99% Severe cachexia, protein calorie malnutrition Chest scattered crepitations, no wheezing CVS S1 and S2 and no added sound Abd soft, NT , has loss of ribs at left upper quadrant, bulging bowels, no tenderness 1+ edema in the lower extremities seems to have more dependent edema Well perfused and warm peripheries Studies reviewed in eDH. Remarkable for the following: LABS: Last 3 wbc, hgb, hct plt Recent Labs 04/13/212006 WBC 6.7 HGB 10.6* HCT 31.4* PLATELET 116* Last 3 Lytes Recent Labs 04/13/212006 NA 137 K 3.6 CL 110* CO2 21* BUN 18 CREATININE 0.65* Last 3 LFTs Recent Labs 04/13/212006 AST 19 ALT 10 ALKPHOS 94 BILITOT 1.0 BILIDIR 0.6* FSBG Trend Recent Labs 04/14/21 1123 04/14/21 0904 04/14/21 0809 POCGLU 76 88 66 MICRO: No results for input(s): URINECULTURE in the last 720 hours. No results for input(s): GRAMSTAIN, BFCX, LOWERRESPCX, TISSUECX in the last 720 hours. No results for input(s): BLOODCX in the last 720 hours. ECG: Recent Labs 04/13/21 1829 DIAGLINE Atrial fibrillation Possible Right ventricular hypertrophy Nonspecific T wave abnormality , probably digitalis effect Abnormal ECG When compared with ECG of 21-AUG-2008 16:12, Atrial fibrillation has replaced Sinus rhythm QRS voltage has decreased Confirmed by MD Javon, Manish Han ([id number]) on 04/14/2021 12:22:00 PM QTCCALC 446 VASCULAR: No results for input(s): VBTEXTRPT in the last 720 hours. IMAGING: Results for orders placed or performed during the hospital encounter of 04/13/21 XR Chest One View (Exam End: 04/13/2021 9:13 PM) Impression 1. Patchy bilateral airspace opacities, consistent with patient's history of COVID. 2. Taking differences in technique into account stable dilated loop of colon in the left upper quadrant. Preliminary report signed by: Ronald Morfin at 04/13/2021 9:27 PM I have personally reviewed the image(s) and the resident's interpretation and agree with the findings, Keli Mercedes MD at 04/13/2021 11:04 PM Thank you for letting us participate in the care of this patient. If you are a health care provider and have any questions regarding this report, please contact the number below. For patients who have questions please contact the health care director that requested your imaging first. Request For 2nd Read CT Chest Abdomen Pelvis (Exam End: 04/13/2021 7:27 PM) Impression 1. There is no pulmonary embolism. 2. Consolidative changes within the lung bases, debris within the airways, and a large hiatal hernia with fluid in the esophagus. These findings are concerning for aspiration. 3. Severe emphysema. 4. No acute intra-abdominal process. I have personally reviewed the image(s) and the resident's interpretation and agree with the findings, Shaun De Los Santos MD at 04/14/2021 9:34 AM Thank you for letting us participate in the care of this patient. If you are a health care provider and have any questions regarding this report, please contact the number below. For patients who have questions please contact the health care director that requested your imaging first. R Studies: Assessment: 70 year old male known to have h/o esophageal cancer s/p distal esophagectomy/subtotal gastrectomy with EG anastomosis (?pre-2001, no records available), UGIB (2017, unclear source), EtOH use disorder (unclear last drink without a known liver hx), A Fib not on anticoagulation, CAD s/p CABG (on ASA), COPD (not on O2), h/o chronic pancreatitis, DM with neuropathic pains, got admitted to [facility] on 04/11 with altered mental status. Of note, patient was COVID PCR positive on 04/10, he was discharged home as maintaining saturation on room air, he was brought back due to melena as noted by roommate and he was admitted to OSH. While at [facility], patient has had BP hovering around 90/60, HR high 80s. Hb was13.6 on admission which has since downtrended to 8.9 despite 2u pRBCs, receiving another unit on the day of transfer. INR 1.3, PLT 110. His other inflammatory markers were not significantly elevated,he underwent a CTA T/A/P (04/10/21) w/ grossly normal-appearing liver, no obvious portal hypertensive changes or ascites, some changes c/f chronic panc. No blush seen. Patient has had ongoing melena since admission but no observed hematemesis. Not on O2 in setting of COVID PNE. Patient has been maintained on PPI BID. GI was tele consulted and advised to keep NPO for EGD in AM, in case he becomes unstable EGD as emergent procedure. Reasonable to continue to monitor off octreotide at this time. Hospital medicine was contacted and patient was admitted for further work-up. ? #Suspected upper GI bleed #Possibly underlying liver cirrhosis Patient had a history of previous upper GI bleeding 2017, found to have esophagitis and blood in distal esophagus Transfer from OSH due to drop in hemoglobin, and given Covid positivity could not to perform EGD GI is aware about the patient will keep n.p.o. for possible EGD IV PPI Gentle IV fluid N.p.o. Patient on ceftriaxone for cirrhosis and GI bleed empirically To larger bore IV needles and H&H monitoring ?? #Covid positive #No hypoxia and inflammatory markers are with severe elevation, high risk for acute deterioration by classification due to comorbid conditions Patient was a started on remdesivir at OSH, will complete remdesivir course Patient was also given monoclonal antibody as per the chart review on 04/10 Follow inflammatory markers Patient on ceftriaxone for cirrhosis and GI bleed ?? #Other issues Coronary artery disease post CABG -holding off aspirin for now, resume when a stable Heart failure -we will obtain an echo and continue GDMT as tolerated, patient has been on spironolactone and Bumex 2 mg twice a day, holding off diuretic for now due to GI bleed possible hemodynamic instability History of esophageal cancer and esophagectomy 2000 History of A. fib not on anticoagulation due to previous history of severe GI bleed Diabetes mellitus -continue inpatient sliding scale ?? Admit to hospital medicine Physical Therapy referral DVT Prophylaxis If currently a smoker - advised about smoking cessation and will provide smoking cessation materialand support. Pneumovax and Influenza Immunizations given as needed. Discussed Advanced Directives and Code Status. The patient wishesto be Full code. Anticipated Disposition: Patient might need short-term or long-term rehabilitation for recovery Goals of Care: Team Pager( Coverage 27/12): #[phone] PCP: Silvina Perdue MD [phone] Attestation: IPI Certification I certify that I am a [facility] credentialed attending provider with admitting privileges and that the patient meets or has met medical necessity to require an inpatient IPI level of care meeting a minimumof two midnights or is on the [facility] inpatient only procedure list (status C) due to: GI bleed. Shaunna Nichole MD 04/14/2021 documented in this encounter H&P Notes * Courtney Brandon MD - 04/15/2021 3:49 PM EST Gastroenterology and Hepatology Pre-Procedure History and Physical Exam Procedure: EGD: Indication: Melena and hematemesis Patient Active Problem List Diagnosis Code ??? Acute upper GI bleed K92.2 ??? Iron deficiency anemia due to chronic blood loss D50.0 ??? ETOH abuse F10.10 ??? History of GI tract cancer Z85.00 ??? Paroxysmal atrial fibrillation I48.0 ??? History of ASCVD Z86.79 ??? Chronic back pain M54.9, G89.29 ??? Type 2 diabetes mellitus with neurologic complication, without long-term current use of lfednlnY27.49 ??? Pancreatitis c/b pseudocyst/cyst 2004 K86.2, K86.3 ??? Depression F32.A ??? COPD (chronic obstructive pulmonary disease) J44.9 ??? Tobacco abuse disorder Z72.0 ??? GIB (gastrointestinal bleeding) K92.2 EXAM: HEENT: Airway examined, oropharynx clear Mallampati Score: II (soft palate, uvula, fauces visible) LUNGS: Clear to auscultation HEART: Regular rate and rhythm, normal S1, S2 ABDOMEN: Normal bowel sounds, soft, non tender, non distended A/P Proceed with the planned endoscopic procedure. ASA 3 - Patient with moderate systemic disease with functional limitations Sedation Plan: anesthesia Risks and benefits of the procedure explained to the patient. Consent signed. Please see separate consult note for further details. * Sandy Mak MD - 04/13/2021 8:44 PM EST Inpatient Hospital Medicine - Admission Note Problem List: Active Hospital Problems Diagnosis ??? GIB (gastrointestinal bleeding) Resolved Hospital Problems No resolved problems to display. Active Non-Hospital Problems Diagnosis ??? Iron deficiency anemia due to chronic blood loss ??? ETOH abuse ??? History of GI tract cancer ??? Paroxysmal atrial fibrillation ??? History of ASCVD ??? Chronic back pain ??? Type 2 diabetes mellitus with neurologic complication, without long-term current use of insulin ??? Pancreatitis c/b pseudocyst/cyst 2003 ??? Depression ??? COPD (chronic obstructive pulmonary disease) ??? Tobacco abuse disorder ??? Acute upper GI bleed ID: [id number] y.o. Male presents to [facility] [place] with as transfer from OSH for GIB. History of Present Illness: Patient is confused and poor historian, accompanied by chart review and regarding transfer from OSH Nain is a 70 year old male known to have h/o esophageal cancer s/p distal esophagectomy/subtotal gastrectomy with EG anastomosis (?pre-2001, no records available), UGIB (2017, unclear source), EtOH use disorder (unclear last drink without a known liver hx), A Fib not on anticoagulation, CAD s/pCABG (on ASA), COPD (not on O2), h/o chronic pancreatitis, DM with neuropathic pains, got admitted to [facility] on 04/11 with altered mental status. Of note, patient was COVID PCR positive on 04/10, he was discharged home as maintaining saturation on room air, he was brought back due to melena as noted byroommate and he was admitted to OSH. While at [facility], patient has had BP hovering around 90/60, HR high 80s. Hb was 13.6 on admission which has since downtrended to 8.9 despite 2u pRBCs, receiving another unit on the day of transfer. INR 1.3, PLT 110. His other inflammatory markers were not significantly elevated, he underwent a CTA T/A/P (04/10/21) w/ grossly normal-appearing liver, no obvious portal hypertensive changes or ascites, some changes c/f chronic panc. No blush seen. Patient has had ongoing melena since admission but no observed hematemesis. Not on O2 in setting of COVID PNE. Patienthas been maintained on PPI BID. GI was tele consulted and advised to keep NPO for EGD tomorrow AM, in case he becomes unstable EGD as emergent procedure. Reasonable to continue to monitor off octreotide at this time. Hospital medicine was contacted and patient was admitted for further work-up. Upon arrival to unit patient is hemo-dynamically stable, no acute distress no bleeding noticed, he is oriented x2, denies any chest pain or any abdominal pain, is lying comfortably on bed, cachectic appearing, he denies any fever cough or shortness of breath, no palpitations no sick contacts, no joint pains, he denies any nausea vomiting. But has not noticed his bowel color or melena, he does nothave insight about his GI bleed suspicion. Nods yes or no to most questions, unable to give detailed history and review of system. Complete survey and relevant review of system otherwise seems to be unremarkable. Review of Systems: Review of system is negative except as above Past Medical and Surgical History: Past Medical History: Diagnosis Date ??? Chronic back pain 09/14/2017 On chronic narcotics ??? COPD (chronic obstructive pulmonary disease) 09/14/2017 Not on home 02 or chronic steroids ??? Depression 09/14/2017 ??? ETOH abuse 09/14/2017 Daily use: 6 pack 12oz beer, 2 shots primo ??? History of ASCVD 09/14/2017 S/p 4v CABG - on ASA ??? History of GI tract cancer 09/14/2017 ??? Iron deficiency anemia due to chronic blood loss 09/14/2017 ??? Pancreatitis c/b pseudocyst/cyst 2004 09/14/2017 ??? Paroxysmal atrial fibrillation 09/14/2017 On Eliquis ??? Tobacco abuse disorder 09/14/2017 ??? Type 2 diabetes mellitus with neurologic complication, without long-term current use of insulin09/14/2017 On Metformin and Gabapentin Past Surgical History: Procedure Laterality Date ??? PRO UPPER GI ENDOSCOPY, CTRL BLEED 09/18/2017 EGD, W CONTROL OF BLEEDING, ANY METHOD performed by Zain Sifuentes MD at [facility] END[facility] ??? PRO UPPER GI ENDOSCOPY, DIAGNOSTIC N/A 09/13/2017 EGD, UPPER GI ENDOSCOPY performed by Marixa Vidales MD at [facility] Prior To Admission Medications: Medications Prior to Admission Medication Sig Dispense Refill Last Dose ??? metoprolol tartrate (LOPRESSOR) 25 mg Tablet Take 0.5 tablets by mouth 2 times daily. 30 tablet3 04/12/2021 at Unknown time ??? buPROPion (WELLBUTRIN SR OR ZYBAN) 150 mg Tablet Sustained Release 12 hr Take 1 tablet by mouth2 times daily. 60 tablet 3 04/12/2021 at Unknown time ??? thiamine (THIAMINE) Take 1 tablet by mouth daily. 30 tablet 3 04/12/2021 at Unknown time ??? atorvastatin (LIPITOR) 10 mg Tablet Take 10 mg by mouth daily. 0 04/12/2021 at Unknown time ??? furosemide (LASIX) 40 mg Tablet Take 40 mg by mouth See Admin Instructions. 80mg in the morning, 40mg at noon 0 04/12/2021 at Unknown time ??? gabapentin (NEURONTIN) 300 mg Capsule Take 300 mg by mouth 3 times daily. 0 04/12/2021 at Unknown time ??? SPIRIVA WITH HANDIHALER 18 mcg Capsule, w/Inhalation Device Inhale 18 mcg into the lungs daily.0 04/12/2021 at Unknown time ??? pantoprazole (PROTONIX) 40 mg Tablet, Delayed Release (E.C.) Take 40 mg by mouth daily. 0 04/12/2021 at Unknown time ??? folic acid (FOLVITE) 1 mg tablet 1mg, PO, QD 04/12/2021 at Unknown time ??? albuterol-ipratropium (COMBIVENT) 18-103 mcg/Actuation inhaler 04/12/2021 at Unknown time ??? metFORMIN (GLUCOPHAGE) 500 mg tablet 04/12/2021 at Unknown time ??? clotrimazole (MYCELEX) 10 mg Konrad Dissolve one in mouth three times daily after brushing teeth after each meal 90 tablet 0 Unknown at Unknown time ??? aspirin 81 mg Tablet, Delayed Release (E.C.) Take 1 tablet by mouth daily. 30 tablet 3 Unknown at Unknown time ??? methyl salicylate-menthol (BENGAY) 15-10 % Cream Apply 1 Application topically 2 times daily. 30 g 0 Unknown at Unknown time ??? sucralfate (CARAFATE) 100 mg/mL Suspension Take 10 mLs by mouth 4 times daily. 420 mL 0 Unknownat Unknown time ??? nicotine (NICODERM CQ) 21 mg/24 [address] 1 patch onto the skin daily. 28 patch 0 Unknown at Unknown time ??? pantoprazole (PROTONIX) 40 mg Tablet, Delayed Release (E.C.) Take 1 tablet by mouth daily. 90 tablet 3 Unknown at Unknown time ??? cholecalciferol, Vitamin D3, 2,000 unit Tablet Take 2,000 Units by mouth daily. 0 Unknown at Unknown time ??? HYDROcodone-acetaminophen (NORCO) 10-325 mg Tablet Take 1 tablet by mouth 2 times daily. 0 Unknown at Unknown time ??? Ferrous Sulfate 325 mg (65 mg Iron) CpSR Unknown at Unknown time ??? nitroGLYcerin (NITROSTAT) 0.4 mg SL tablet Unknown at Unknown time Allergies: No Known Allergies Family History: No family history on file. Social History and Habits: Social History Socioeconomic History ??? Marital status: Spouse name: Not on file ??? Number of children: Not on file ??? Years of education: Not on file ??? Highest education level: Not on file Occupational History ??? Not on file Tobacco Use ??? Smoking status: Former Smoker Types: Cigarettes ??? Smokeless tobacco: Never Used Substance and Sexual Activity ??? Alcohol use: Yes Alcohol/week: 20.0 standard drinks Types: 14 Cans of beer, 6 Shots of liquor per week ??? Drug use: No ??? Sexual activity: Not on file Other Topics Concern ??? Not on file Social History Narrative ??? Not on file Social Determinants of Health Financial Resource Strain: Not on file Food Insecurity: Not on file Transportation Needs: Not on file Physical Activity: Not on file Housing Stability: Not on file Immunizations: Immunization History Administered Date(s) Administered ??? Influenza Vaccine, Whole 06/06/2007 ??? Pneumococcal Polyvalent 23 06/06/2005 Physical Exam: Last Set of Vitals and range of vitals over past 24 hours: Last value Range last 24 hrs Temperature Temp: 36.7 ??C (98 ??F) Temp: [36.7 ??C (98 ??F)] Heart Rate Heart Rate: 73 Heart Rate: [73] Blood Pressure BP: 115/73 BP: (115)/(73) Respiratory Rate Resp: 18 Resp: [18] SpO2 SpO2: 96 % SpO2: [96 %] Body mass index is 22.52 kg/m??. Physical Exam Awake alert oriented x1-2, no distress lying flat on bed Saturation maintaining on room air 9899% Severe cachexia, protein calorie malnutrition Chest scattered crepitations, no wheezing CVS S1 and S2 and no added sound Abd soft, NT , has loss of ribs at left upper quadrant, bulging bowels, no tenderness 1+ edema in the lower extremities seems to have more dependent edema Well perfused and warm peripheries Laboratory (Last 24 Hours): Recent Results (from the past 24 hour(s)) COVID-19 PCR Specimen: Nasopharyngeal Swab Symptoms->COVID-19 Suspected Result Value Ref Range SARS-CoV-2 RNA PCR Detected (A) Not Detected SARS-CoV-2 Source [employer] ANALYST Swab Prothrombin Time Result Value Ref Range PT 15.3 (H) 9.4 - 12.5 sec INR 1.3 APTT Result Value Ref Range PTT 33 25 - 37 sec Hemogram Result Value Ref Range WBC 6.7 4.0 - 9.5 x10(3)/mcL RBC 3.37 (L) 4.58 - 5.54 x10(6)/mcL Hemoglobin 10.6 (L) 13.7 - 16.5 g/dL Hematocrit 31.4 (L) 40.5 - 48.5 % MCV 93.2 (H) 82.9 - 93.1 fL MCH 31.5 27.5 - 32.1 pg MCHC 33.8 32.0 - 35.7 g/dL Platelets 116 (L) 145 - 357 x10(3)/mcL RDWSD 57.1 (H) 36.0 - 45.0 fL RDWCV 17.7 (H) 11.4 - 13.8 % MPV 10.3 7.6 - 12.9 fL nRBC % Auto 0.0 % nRBC Abs Auto 0.000 0.000 - 0.000 x10(3)/mcL Differential, Automated Result Value Ref Range Neutrophils % 84.3 % Neutr Abs (ANC) 5.62 1.70 - 6.10 x10(3)/mcL Lymphocytes % 11.1 % Lymphocytes Abs 0.7 (L) 0.9 - 3.2 x10(3)/mcL Monocytes % 3.6 % Monocyte Abs 0.2 (L) 0.3 - 0.9 x10(3)/mcL Eosinophils % 0.6 % Eosinophils Abs 0.0 0.0 - 0.4 x10(3)/mcL Basophils % 0.1 % Basophils Abs 0.0 0.0 - 0.1 x10(3)/mcL Immature Gran % 0.30 % Milagros Gran Abs 0.02 0.00 - 0.04 x10(3)/mcL D-Dimer, Quantitative Result Value Ref Range D-Dimer, Quant 536 (H) 0 - 500 FEU ng/ml Blue Tube HOLD Result Value Ref Range Blue Hold Sample in lab. ABORh Type Manual Result Value Ref Range Expires at 2359 on: 04/16/2021 ABORh Type O Pos ABORH Recheck Status Result Value Ref Range ABORH Type Recheck Completed Type and Screen Validity Result Value Ref Range T&S only valid at [facility] [facility] Hosp Microbiology: Blood Cultures: being collected Radiology: Results for orders placed or performed during the hospital encounter of 04/13/21 XR Chest One View (Exam End: 04/13/2021 9:13 PM) Narrative EXAMINATION: XR CHEST ONE VIEW CLINICAL HISTORY: COVID + TECHNIQUE: 1 view of the chest COMPARISON: CT chest 04/10/2021, radiographs 08/25/2008 FINDINGS: Intact sternal cables. Multiple postsurgical clips left upper quadrant. Bilateral patchy hazy airspace opacities, right greater than left. Left hemidiaphragm is obscured by dilated bowel and opacities. Cardiomediastinal silhouette and hilar contours are unremarkable. Pulmonary vasculature is unremarkable. Old healed left rib fractures. Emphysematous changes of the upper lobes. Impression 1. Patchy bilateral airspace opacities, consistent with patient's history of COVID. 2. Taking differences in technique into account stable dilated loop of colon in the left upper quadrant. Preliminary report signed by: Ronald Morfin at 04/13/2021 9:27 PM I have personally reviewed the image(s) and the resident's interpretation and agree with the findings, Keli Mercedes MD at 04/13/2021 11:04 PM Thank you for letting us participate in the care of this patient. If you are a health care provider and have any questions regarding this report, please contact the number below. For patients who have questions please contact the health care director that requested your imaging first. Other Studies: EGD (09/2017): Findings: The examined esophagus was normal. Stomach: There was a partial gastrectomy of the??proximal stomach (the antrum was intact and it was difficult to retroflex endoscope in gastric body). Initially there was no blood in the stomach or active bleeding. After attempt at U turn there was oozing of fresh heme from two punctate lesions in the proximal gastric body. Both sites were treated with APC at 20 omalley 1.4 effect, flow 2. Each site quickly ceased oozing. The examined duodenum was normal. Impression:??- Normal esophagus. - Normal examined duodenum. Altered gastric anatomy from partial gastric resection. No bleeding??initially and no blood in stomach. Oozing from two sites in proximal stomach when U turn was performedboth treated with APC. Not clear if these were small AVM's that were provoked to bleed by scope or merely??scope trauma in the context of anticoagulation Recommendation: ?Hold anticoagulation for the next several days ?? EGD (09/13/17): Findings: Esophagogastric landmarks were identified: the Z-line was found at 35 cm from the incisors. Red blood was found in the distal esophagus. LA Grade A (one or more mucosal breaks less than 5 mm, not extending between tops of 2 mucosal folds) esophagitis with no bleeding was found. Red and altered blood was found in the gastric fundus with adherent clot. Lavage of the area was performed using a large amount, resulting in clearance with adequate visualization. No underlying source of bleeding was found. Stomach appeared to be surgically alter, potentially with a partial gastrectomy. Hematin (altered blood/pgdmux-vwhlfz-nbcr material) was found in the entire duodenum. Lavage of thearea was performed using a large amount, resulting in incomplete clearance with fair visualization. Impression: ?- Esophagogastric landmarks??identified. - Red blood in the distal esophagus. - LA Grade A esophagitis. - Hematin (altered??blood/quhgef-sickcv-kwnc material) in ??the gastric fundus. - Blood in the entire examined duodenum. ??- No specimens collected. Recommendation:??- Return patient to ICU for ongoing care. ??- Continue IV PPI. - Discontinue octreotide/ceftriaxone??as no evidence of portal hypertension was seen. ??- Hb Q8 hours. - Active type and screening. Assessment: Nain is a 70 year old male known to have h/o esophageal cancer s/p distal esophagectomy/subtotal gastrectomy with EG anastomosis (?pre-2001, no records available), UGIB (2018, unclear source), EtOH use disorder (unclear last drink without a known liver hx), A Fib not on anticoagulation, CAD s/pCABG (on ASA), COPD (not on O2), h/o chronic pancreatitis, DM with neuropathic pains, got admitted to [facility] on 04/11 with altered mental status. Of note, patient was COVID PCR positive on 04/10, he was discharged home as maintaining saturation on room air, he was brought back due to melena as noted byroommate and he was admitted to OSH. While at [facility], patient has had BP hovering around 90/60, HR high 80s. Hb was 13.6 on admission which has since downtrended to 8.9 despite 2u pRBCs, receiving another unit on the day of transfer. INR 1.3, PLT 110. His other inflammatory markers were not significantly elevated, he underwent a CTA T/A/P (04/10/21) w/ grossly normal-appearing liver, no obvious portal hypertensive changes or ascites, some changes c/f chronic panc. No blush seen. Patient has had ongoing melena since admission but no observed hematemesis. Not on O2 in setting of COVID PNE. Patienthas been maintained on PPI BID. GI was tele consulted and advised to keep NPO for EGD tomorrow AM, in case he becomes unstable EGD as emergent procedure. Reasonable to continue to monitor off octreotide at this time. Hospital medicine was contacted and patient was admitted for further work-up. Upon arrival to unit patient is hemo-dynamically stable, no acute distress no bleeding noticed, he is oriented x2, denies any chest pain or any abdominal pain, is lying comfortably on bed, cachectic appearing, he denies any fever cough or shortness of breath, no palpitations no sick contacts, no joint pains, he denies any nausea vomiting. But has not noticed his bowel color or melena, he does nothave insight about his GI bleed suspicion. Nods yes or no to most questions, unable to give detailed history and review of system. Complete survey and relevant review of system otherwise seems to be unremarkable. #Suspected upper GI bleed #Possibly underlying liver cirrhosis Patient had a history of previous upper GI bleeding 2017, found to have esophagitis and blood in distal esophagus Transfer from OSH due to drop in hemoglobin, and given Covid positivity could not to perform EGD GI is aware about the patient will keep n.p.o. for possible EGD tomorrow morning, unless he becomeshemodynamically unstable and then he will go for urgent endoscopy overnight IV PPI Gentle IV fluid N.p.o. Patient on ceftriaxone for cirrhosis and GI bleed empirically To larger bore IV needles and H&H monitoring #Covid positive #No hypoxia and inflammatory markers are with severe elevation, high risk for acute deterioration by classification due to comorbid conditions Patient was a started on remdesivir at OSH, will complete remdesivir course Patient was also given monoclonal antibody as per the chart review on 04/10 Follow inflammatory markers Patient on ceftriaxone for cirrhosis and GI bleed #Other issues Coronary artery disease post CABG -holding off aspirin for now, resume when a stable Heart failure -we will obtain an echo and continue GDMT as tolerated, patient has been on spironolactone and Bumex 2 mg twice a day, holding off diuretic for now due to GI bleed possible hemodynamic instability History of esophageal cancer and esophagectomy 2000 History of A. fib not on anticoagulation due to previous history of severe GI bleed Diabetes mellitus -continue inpatient sliding scale Patient might need short-term or long-term rehabilitation for recovery Plan: Admit to hospital medicine Physical Therapy referral DVT Prophylaxis If currently a smoker - advised about smoking cessation and will provide smoking cessation materialand support. Pneumovax and Influenza Immunizations given as needed. Discussed Advanced Directives and Code Status. The patient wishesto be Full code. A copy of this document will be sent to the patient's Primary Care Physician and/or Referring Physician. Sandy Mak MD 04/13/2021 documented in this encounter Miscellaneous Notes * Plan of Care - Gela Rich RN - 04/16/2021 5:06 PM EST Pt discharged home at 1640. Pt A&O3-4. VSS. Pt maintaining O2 sats> 92% on RA. Pt dischargedvia [facility] and cab ( [employer]) transporting patient home. Discharge instructions reviewed with and given to patient. Pt verbalizes understanding of discharge instructions, med changes/management, Covid precautions and follow up care. Spoke with Lyudmila, who is patients roommate/contact. Lyudmila reports she will be home when patient arrives to assist patient as needed. Lyudmila educated on Covid precautions. * Plan of Care - Gela Rich RN - 04/16/2021 5:06 PM EST Problem: Adult Inpatient Plan of Care Goal: Plan of Care Review Outcome: Outcome (s) achieved Goal: Patient-Specific Goal (Individualized) Outcome: Outcome (s) achieved Goal: Absence of Hospital-Acquired Illness or Injury Outcome: Outcome (s) achieved Goal: Optimal Comfort and Wellbeing Outcome: Outcome (s) achieved Goal: Readiness for Transition of Care Outcome: Outcome (s) achieved Problem: Adjustment to Illness (Gastrointestinal Bleeding) Goal: Optimal Coping with Acute Illness Outcome: Outcome (s) achieved Problem: Bleeding (Gastrointestinal Bleeding) Goal: Hemostasis Outcome: Outcome (s) achieved Problem: Electrolyte Imbalance Goal: Electrolyte Balance Outcome: Outcome (s) achieved * Plan of Care - Basia Guerrero RN - 04/16/2021 3:08 AM EST OUTCOME EVALUATION NOTE: ?? OUTCOME SUMMARY: ?? Pt is A oriented to self, place, and situation. VS as charted on RA. Meds given per AUG. Pt had 1 BM this shift, it was soft and black. Pt c/o pain in abdomen. Pt appears to be resting comfortably between care. Will ctm/notify team of any changes. PLAN MOVING FORWARD: ?? PT/OT NPO Safe d/c planning ?? INDIVIDUALIZED FALL PREVENTION INTERVENTIONS: ?? Patient-specific fall risk factors per assessment: [current deficits]:?Confusion, hospital setting, impaired mobility ?? Assistance [level of assistance required for transfers and ambulation]:?1-2A ?? Supervision [direct monitoring required during toileting and ADLs]:?Hands on ?? Surveillance [continuous indirect monitoring]:?Masimo, room near unit station, purposeful rounding ?? Patient-specific fall prevention interventions for sensory deficits provided, if applicable:?N/a ?? CPG GOAL OUTCOME EVALUATION: * Plan of Care - Sharmila Ortega RN - 04/15/2021 5:30 PM EST OUTCOME EVALUATION NOTE: OUTCOME SUMMARY: Patient alert, disoriented to time. VSS on RA. Denies SOB. NPO for EGD today. Continuous IVF. Glucose gel given for BG 66, asymptomatic. 1 assist to bedside chair. Will continue to monitor and updateMD of any acute changes. PLAN MOVING FORWARD: Monitor BG PT/OT IVF Discharge planning INDIVIDUALIZED FALL PREVENTION INTERVENTIONS: Patient-specific fall risk factors per assessment: [current deficits]: Unfamiliar environment, generalized weakness, tubing Assistance [level of assistance required for transfers and ambulation]: 1 assist Supervision [direct monitoring required during toileting and ADLs]: hands on Surveillance [continuous indirect monitoring]: Room near nurses station, purposeful rounding, masimo Patient-specific fall prevention interventions for sensory deficits provided, if applicable: [X] Yes CPG GOAL OUTCOME EVALUATION: * Op Note - Kelvin Smith MD - 04/15/2021 4:45 PM EST DH Operative Note Patient Name: Nain Kang : [id number] MR#: [id number] Case Date: 04/15/2021 Surgeon: Surgeon(s) and Role: * Kelvin Smith MD - Primary * Courtney Brandon MD - Fellow Procedure(s): EGD, UPPER GI ENDOSCOPY Please see Provation report for details. * Plan of Care - Basia Guerrero RN - 04/14/2021 10:11 PM EST OUTCOME EVALUATION NOTE: ?? OUTCOME SUMMARY: ?? Pt is A&Ox4. VS as charted, on RA. Pt c/o discomfort in his abdomen. No BMs this shift. Continous fluids running @ 100ml/hr. FSBS low, juice given. Meds given per MAR. NPO @ 0000. No acute eventswill ctm/notify team of changes. ?? PLAN MOVING FORWARD: ?? PT/OT NPO Safe d/c planning ?? INDIVIDUALIZED FALL PREVENTION INTERVENTIONS: ?? Patient-specific fall risk factors per assessment: [current deficits]: Confusion, hospital setting,impaired mobility ?? Assistance [level of assistance required for transfers and ambulation]: 1-2A ?? Supervision [direct monitoring required during toileting and ADLs]: Hands on ?? Surveillance [continuous indirect monitoring]: Masimo, room near unit station, purposeful rounding Patient-specific fall prevention interventions for sensory deficits provided, if applicable: N/a ?? CPG GOAL OUTCOME EVALUATION: * Initial Assessments - Alma Rosa Monsalve RN - 04/14/2021 3:20 PM EST Office of Care Management Initial Assessment Alma Rosa Monsalve RN reviewed record and discussed patient with Care Team. Source of Information: Team, medical record, and Patient RNCM Introduced self/reviewed role; services accepted. Patient gives verbal permission to speak with Lyudmila Bellamy (friend). Reason for Hospitalization: stomach problems Last COVID test: Lab Results Component Value Date [id number] Detected (A) 04/13/2021 Past medical History: Past Medical History: Diagnosis Date ??? Chronic back pain 09/14/2017 On chronic narcotics ??? COPD (chronic obstructive pulmonary disease) 09/14/2017 Not on home 02 or chronic steroids ??? Depression 09/14/2017 ??? ETOH abuse 09/14/2017 Daily use: 6 pack 12oz beer, 2 shots primo ??? History of ASCVD 09/14/2017 S/p 4v CABG - on ASA ??? History of GI tract cancer 09/14/2017 ??? Iron deficiency anemia due to chronic blood loss 09/14/2017 ??? Pancreatitis c/b pseudocyst/cyst 2004 09/14/2017 ??? Paroxysmal atrial fibrillation 09/14/2017 On Eliquis ??? Tobacco abuse disorder 09/14/2017 ??? Type 2 diabetes mellitus with neurologic complication, without long-term current use of insulin09/14/2017 On Metformin and Gabapentin Hospitalizations Within the Past 30 Days: no previous admission in last 30 days Current Decision-Making Capacity: Self Advance Care Planning: Attempt Cardiopulmonary Resuscitation - Inpatient <no information> -Advanced Directive: No, need to discuss (Does not have an AD, reports no children, has a sister named Yuriy Clemons who lives near [facility], patient unable to provide phone number or address.) If AD's have not been completed [place] would be surrogate decision maker per [place] surrogate decisionmaking law. (Only good for 180 days) Any patient receiving care at [facility] must abide by [place] law. The hierarchy for surrogate decision making is: (a) Patient???s spouse, or civil union partner or common law spouse unless there is a divorce proceeding, separation agreement, or restraining order limiting that person???s relationship with the patient. (b) Any adult son or daughter of the patient. (c) Either parent of the patient. (d) Any adult brother or sister of the patient. (e) Any adult grandchild of the patient. (f) Any grandparent of the patient. (g) Any adult aunt, uncle, niece, or nephew of the patient. (h) A close friend of the patient. (i) The agent with financial power of business attorney or a conservator appointed in accordance with [place] 464-A. (j) The guardian of the patient???s estate. Current Coping/Education/Information Needs: Coping well with hospital stay and feels updated on issues and plan. Current Functional Ability: unable to assess Functional Status Prior to Admission: Independent,Patient Drives Self Home Environment: Others in the home: friend(s) (Lyudmila Kingstonjerrica lives with patient). Current LivingArrangements: home/apartment/condo. Accessibility Concerns:4 steps with railing to enter, one level, 2 bedrooms. Current DME: cane - straight,walker - rolling,other (see comments) (Patient has a cane and walker at home which he does not use.) Home Address confirmed as: [address] [facility] [address] Social & Family Supports: Extended Emergency Contact Information Primary Emergency Contact: Lyudmila Bellamy Address: [address] [place] [address] [address] [place] [address] [facility] Relation: Friend Secondary Emergency Contact: YURIY CLEMONS Relation: Sibling Current Care Provided by: self Provides Primary Care For: no one Caregiver if needed: friend(s) Quality of Family relationships: supportive,helpful Community Resources being provided currently: Behavioral Health History: None Substance Use/Abuse (chart review): Social History Tobacco Use Smoking Status Former Smoker ??? Types: Cigarettes Smokeless Tobacco Never Used 0 No problems reported 1-2 Low level 3-5 Moderate level 6-8 Substantial level 9- 10 Severe level 0 to 7 points: Low risk 8 to 15 points: Medium risk 16 to 19 points: High risk 20 to 40 points: Addiction likely Other Pertinent/Service Specific Information: Health/Prescription Coverage: Primary Insurance: MEDICARE Payor: MEDICARE / Plan: MEDICARE PART A & B / Product Type: *No Product type* / Secondary Insurance: MEDICAID [place] Prescription Coverage: Yes Preferred Pharmacy: [id number] AT [address] [facility] & [address] [address] [place] Status: Patient is a : No Primary Care Provider: Silvina Perdue MD [phone] Patient/Caregiver Goals of Treatment: Patient would like to return home when medically ready. Declines Home Health services. Potential Needs for Transition of Care: none Agency Referrals: Declines home health services. Transportation: other (see comments) (Patient will need assistance with transportation at discharge.) Transportation Anticipated: other (see comments) (Needs assistance - Medicaid ride?) Concerns to be Addressed: no discharge needs identified Assessment: Patient is admitted to Medicine service for GIB (gastrointstinal bleeding) Plan: Anticipate discharge to home when medically ready, will need assistance with transportation. A member of the Care Management team will continue to monitor progress, follow for continuity of care and assist with transition of care planning. * Consult Note - Courtney Brandon MD - 04/14/2021 5:49 AM EST GASTROENTEROLOGY & HEPATOLOGY CONSULTATION Initial Consult Note Requesting Provider: Gela Trivedi MD REASON FOR CONSULTATION Concern for UGIB HISTORY OF PRESENT ILLNESS Nain Kang is a 70 y.o. man with PMH esophageal cancer s/p distal esophagectomy/subtotal gastrectomy with EG anastomosis (2000), UGIB (2017), AUD, pancreatitis with pseudocyst, Afib not on AC, CAD s/p CABG (on ASA), and COPD who was transferred overnight from [facility] for hematemesis and melenawith a 4 point hemoglobin drop. He was in his usual state of health until 04/11 when he was admitted to [facility] altered after a roommate witnessed episodes of melena and hematemesis. At [facility] course was notable for soft Bps, 90s/60s, and hemoglobin drop from 13.6 on admission to 8.9 on 04/14 despite 2 U pRBC. While at [facility] he was also i ncidentally noted to be COVID positive. CT A/P was done there on 04/10 which was unremarkable; no changes concerning for chronic liver disease. He reportedly continued to have melena following admission but no hematemesis was seen. On arrival to [facility] he was afebrile and HDS with BP 115/73 and HR 73, he remains on RA. Labs notablefor hgb 10.6, platelets 116, INR 1.3. He was started on Ceftriaxone 1 g daily and IV protonix 40 mgBID. During his last admission for UGIB in 09/2017 he underwent two EGDs. The first EGD was on 09/13/2017 for melena and demonstrated LA grade A esophagitis, red blood in the distal esophagus and hematin inthe gastric fundus. A repeat EGD was done on 09/18/2017 due to ongoing hematemesis which was notablefor altered gastric anatomy from prior resection. There was oozing from two sites in proximal stomach on retroflex which were treated with APC although unclear if they were AVMs. ROS: 10 systems reviewed and positive for those in HPI, otherwise negative PAST MEDICAL/SURGICAL HISTORY: Past Medical History: Diagnosis Date ??? Chronic back pain 09/14/2017 On chronic narcotics ??? COPD (chronic obstructive pulmonary disease) 09/14/2017 Not on home 02 or chronic steroids ??? Depression 09/14/2017 ??? ETOH abuse 09/14/2017 Daily use: 6 pack 12oz beer, 2 shots primo ??? History of ASCVD 09/14/2017 S/p 4v CABG - on ASA ??? History of GI tract cancer 09/14/2017 ??? Iron deficiency anemia due to chronic blood loss 09/14/2017 ??? Pancreatitis c/b pseudocyst/cyst 2004 09/14/2017 ??? Paroxysmal atrial fibrillation 09/14/2017 On Eliquis ??? Tobacco abuse disorder 09/14/2017 ??? Type 2 diabetes mellitus with neurologic complication, without long-term current use of insulin09/14/2017 On Metformin and Gabapentin MEDICATIONS ??? remdesivir 200 mg Intravenous Q24H ??? insulin lispro 1-5 Units Subcutaneous TID AC ??? atorvastatin 40 mg Oral Daily ??? buPROPion SR 150 mg Oral BID ??? folic acid 1,000 mcg Oral Daily ??? metoprolol tartrate 12.5 mg Oral BID ??? thiamine 500 mg Intravenous Daily ??? pantoprazole 40 mg Intravenous BID ??? cefTRIAXone 1 g Intravenous Q24H ??? sodium chloride 0.9 % (flush) 5 mL Intravenous BID ??? sodium chloride 0.9 % (flush) 5 mL Intravenous BID ??? sodium chloride 0.45% 100 mL/hr (04/13/21 5393) glucose 40% oral geL OR dextrose 10% OR glucagon, ipratropium-albuteroL, nitroGLYcerin, sodium chloride 0.9 % (flush), lidocaine, sodium chloride 0.9 % (flush) ALLERGIES No Known Allergies SOCIAL HISTORY Social History Socioeconomic History ??? Marital status: Spouse name: Not on file ??? Number of children: Not on file ??? Years of education: Not on file ??? Highest education level: Not on file Occupational History ??? Not on file Tobacco Use ??? Smoking status: Former Smoker Types: Cigarettes ??? Smokeless tobacco: Never Used Substance and Sexual Activity ??? Alcohol use: Yes Alcohol/week: 20.0 standard drinks Types: 14 Cans of beer, 6 Shots of liquor per week ??? Drug use: No ??? Sexual activity: Not on file Other Topics Concern ??? Not on file Social History Narrative ??? Not on file Social Determinants of Health Financial Resource Strain: Not on file Food Insecurity: Not on file Transportation Needs: Not on file Physical Activity: Not on file Housing Stability: Not on file FAMILY HISTORY No family history on file. Vitals: 04/13/21 1722 04/13/21 1730 04/13/21 214 BP: 115/73 119/72 BP Location (NBP): Right arm Right arm Patient Position: Lying Lying Pulse: 73 Resp: 18 20 Temp: 36.7 ??C (98 ??F) 36.5 ??C (97.7 ??F) TempSrc: Oral Oral SpO2: 96% 98% Height: 167.6 cm (5' 6) PHYSICAL EXAM GENERAL: No acute distress, alert and oriented HEENT: AT/NC, sclerae anicteric, moist mucous membranes CHEST: normal work of breathing CARDIAC: warm, well perfused ABDOMEN: Soft, non-tender, non-distended EXT: Warm, no edema NEURO: Grossly intact, moves all extremities, no asterixis SKIN: No jaundice LABS: Lab Results Component Value Date Sodium 137 04/13/2021 Potassium 3.6 04/13/2021 Chloride 110 (H) 04/13/2021 CO2 21 (L) 04/13/2021 BUN 18 04/13/2021 Creatinine 0.65 (L) 04/13/2021 Glucose Lvl 68 04/13/2021 CBC Lab Results Component Value Date WBC 6.7 04/13/2021 Hemoglobin 10.6 (L) 04/13/2021 Hematocrit 31.4 (L) 04/13/2021 Platelets 116 (L) 04/13/2021 LFT's Lab Results Component Value Date Alk Phos 94 04/13/2021 AST 19 04/13/2021 Albumin 2.4 (L) 04/13/2021 Bili, Direct 0.6 (H) 04/13/2021 Total Bilirubin 1.0 04/13/2021 ALT 10 04/13/2021 Total Protein 5.2 (L) 04/13/2021 IMAGING: Reviewed in [facility] ENDOSCOPY: Reviewed in [facility] IMPRESSION: Nain Kang is a 70 y.o. man with PMH esophageal cancer s/p distal esophagectomy/subtotal gastrectomy with EG anastomosis, UGIB (2018), AUDm Afib not on AC, CAD s/p CABG (on ASA), and COPD whowas transferred overnight from [facility] for hematemesis and melena with a 4 point hemoglobin drop. Given his history of significant alcohol use and thrombocytopenia certainly concern for chronic liver diease, however no evidence of this on most recent imaging. We will plan for EGD this afternoon for further evaluation. Differential includes PUD, esophagitis, gastritis, AVM, bleeding from old anas tomosis. RECOMMENDATIONS: - IV PPI 40 mg BID - two large bore IVs - Active T&S - Monitor Hgb q12h or more frequently based assessment of bleeding. - Transfuse for Hgb <7 if no ongoing signs of bleeding - NPO - EGD today The plan as outlined above was discussed with Dr. Smith. Courtney Brandon M.D. Fellow in Gastroenterology and Hepatology Pager #[phone] 04/14/2021 Associated attestation - Kelvin Smith MD - 04/14/2021 9:59 AM EST I have independently seen and examined the patient, and have reviewed the resident???s above note, and agree with the documented history, physical findings, and study results; my evaluation of the patient is below: I met with Mr Kang this morning, not completely oriented. I agree with plan for EGD. Would discuss consent with a health care proxy. Kelvin Smith MD * Plan of Care - Basia Guerrero RN - 04/14/2021 4:28 AM EST OUTCOME EVALUATION NOTE: OUTCOME SUMMARY: Pt is Alert oriented to self only. VS as charted on RA. Meds given per MAR. Pt appears to be resting comfortably between care. No acute events. Will ctm/notify team of any changes PLAN MOVING FORWARD: PT/OT Safe d/c planning INDIVIDUALIZED FALL PREVENTION INTERVENTIONS: Patient-specific fall risk factors per assessment: [current deficits]: Confusion, hospital setting,impaired mobility Assistance [level of assistance required for transfers and ambulation]: 1-2A Supervision [direct monitoring required during toileting and ADLs]: Hands on Surveillance [continuous indirect monitoring]: Masimo, room near unit station, purposeful rounding,tele Patient-specific fall prevention interventions for sensory deficits provided, if applicable: N/a CPG GOAL OUTCOME EVALUATION: documented in this encounter Plan of Treatment Not on file documented as of this encounter Procedures Procedure Name Priority Date/Time Associated Diagnosis Comments POCT GLUCOSE Routine 04/16/2021 12:29 PM EST HC VENIPUNCTURE Routine 04/16/2021 12:08 PM EST POCT GLUCOSE Routine 04/16/2021 7:01 AM EST POCT GLUCOSE Routine 04/15/2021 9:09 PM EST Upper GI Endoscopy, Diagnostic ([id number]) 04/15/2021 4:34 PM EST hematemesis and melena, 4 point hgb drop, COVID + URINALYSIS MICROSCOPIC EXAM Routine 04/15/2021 10:30 AM EST URINALYSIS WITH REFLEX CULTURE Routine 04/15/2021 10:30 AM EST HEMOGRAM Routine 04/15/2021 9:37 AM EST DIFFERENTIAL, AUTOMATED Routine 04/15/20 9:37 AM EST HC CBC,PLT & AUTO DIFF Routine 9:37 AM EST HC VENIPUNCTURE Routine 04/15/2021 9:37 AM EST UPPER GI ENDOSCOPY Routine 04/14/2021 4: 38 PM EST CMP W/FASTING GLUCOSE Routine 04/14/2021 2:30 PM EST HEMOGRAM Routine 04/14/2021 2:30 PM EST DIFFERENTIAL, AUTOMATED Routine 04/14/20 2:30 PM EST HC TRIGLYCERIDES Routine 04/14/2021 2:30 PM EST HC LDL CHOLESTEROL, DIRECT Routine 04/14/2021 2:30 PM EST HC CHOLESTEROL Routine 04/14/2021 2:30 PM EST HC HEMOGLOBIN A1C Routine 04/14/2021 2:3 0 PM EST XR CHEST ONE VIEW STAT 04/13/2021 9:1 3 PM EST TYPE AND SCREEN VALIDITY STAT 04/13/2021 8:07 PM EST ABORH RECHECK STATUS STAT 04/13/2021 8:07 PM EST HC C-REACTIVE PROTEIN STAT 04/13/2021 8:07 PM EST ABORH TYPE MANUAL STAT 04/13/2021 8:0 7 PM EST SELECTED CELL SCREEN STAT 04/13/2021 8:07 PM EST HEMOGRAM Routine 04/13/2021 8:07 PM EST DIFFERENTIAL, AUTOMATED Routine 04/13/20 8:07 PM EST HC D-DIMER, QUANTITATIVE STAT 04/13/2021 8:07 PM EST BLUE TUBE HOLD Routine 04/13/2021 8:07 PM EST HC BLOOD CULTURE- STAT 04/13/2021 8:0 7 PM EST HC VENIPUNCTURE STAT 04/13/2021 8:07 PM EST HC PARTIAL THROMBOPLASTIN TIME Routine 04/13/2021 8:07 PM EST HC PROTHROMBIN TIME Routine 04/13/2021 8 :07 PM EST HC CBC,PLT & AUTO DIFF Routine 8:07 PM EST HC PHOSPHORUS, SERUM Routine 04/13/2021 8:07 PM EST HC MAGNESIUM, SERUM Routine 04/13/2021 8 :07 PM EST HC LACTIC DEHYDROGENASE STAT 04/13/20 8:07 PM EST HC FERRITIN, SERUM STAT 04/13/2021 8: 07 PM EST HC CALCIUM, SERUM Routine 04/13/2021 8:0 7 PM EST HEPATIC FUNCTION PANEL Routine 8:07 PM EST BASIC METABOLIC PANEL Routine 04/13/2021 8:07 PM EST REQUEST FOR 2ND READ CT CHEST ABDOMEN PELVIS Routine 04/13/2021 7:27 PM EST EKG 12-LEAD STAT 04/13/2021 6:29 PM EST depression History of ASCVD RAPID COVID-19 PCR ([facility]) Routine 04/13/2021 5:51 PM EST documented in this encounter Results * POCT Glucose (04/16/2021 12:29 PM EST) Glucose, POC 111 65 - 199 mg/dL [facility] Comment: Supplemental ranges: <140 mg/dL before meals <180 mg/dL all other times of the day Blood 04/16/2021 12:2 9 PM EST 04/16/2021 12:29 PM EST Shaunna Nichole MD POINT OF CARE TEST ORDERABLES [facility] [place] [address] * (ABNORMAL) Comprehensive metabolic panel (non-fasting) (04/16/2021 12:08 PM EST) Glucose 104 65 - 199 mg/dL [facility] Comment:Diabetes: >=200 mg/d L plus symptoms Blood Urea Nitrogen 10 10 - 20 mg/dL [facility] Creatinine 0.66(L) 0.80 - 1.50 mg/dL [facility] Sodium 136 135 - 145 mmol/L [facility] Potassium 3.6 3.5 - 5.0 mmol/L [facility] Comment: Please note: ??Patients with WBC >100,000 may have falsely elevated Potassium levels. ??For accurate Potassium quantification in these patients send serum separator tube (gold top) for subsequent determinations. ??Contact the Clinical Chemistry Laboratory if there are any questions. Chloride 108(H) 98 - 107 mmol/L [facility] Carbon Dioxide 19(L) 22 - 31 mmol/L [facility] Anion Gap 9 5 - 15 mmol/L [facility] Calcium 8.3(L) 8.5 - 10.5 mg/dL [facility] Protein, Total 5.7(L) 6.1 - 8.0 g/dL [facility] Albumin 2.8(L) 3.2 - 5.2 g/dL [facility] Aspartate Aminotransferase 18 0 - 39 unit/L [facility] Alanine Aminotransferase 11 0 - 55 unit/L [facility] Alkaline Phosphatase 125 40 - 130 unit/L [facility] Bilirubin, Total 0.8 0.2 - 1.3 mg/dL [facility] Est Glomerular Filtration Rate 98 >=60 mL/min/1. 73 m?? [facility] Comment: This patient? s [...] Lab Sandy Mak MD CHEMISTRY OR DERABLES [facility] [place] [address] * POCT Glucose (04/16/2021 7:01 AM EST) Glucose, POC 80 65 - 199 mg/dL [facility] Comment: Supplemental ranges: <140 mg/dL before meals <180 mg/dL all other times of the day Blood 04/16/2021 7:01 AM EST 04/16/2021 7:01 AM EST Shaunna Nichole MD POINT OF CARE TEST ORDERABLES [facility] [place] [address] * POCT Glucose (04/15/2021 9:09 PM EST) Glucose, POC 174 65 - 199 mg/dL [facility] Comment: Supplemental ranges: <140 mg/dL before meals <180 mg/dL all other times of the day Blood 04/15/2021 9:09 PM EST 04/15/2021 9:09 PM EST Shaunna Nichole MD POINT OF CARE TEST ORDERABLES Performing Organization Address City/[facility]/ZIP Co de Phone Number [facility] [place] [address] * Urinalysis Microscopic Exam (04/15/2021 10:30 AM EST) RBC, Urine 2 0 - 3 /HPF [facility] WBC, Urine 1 0 - 3 /HPF [facility] Clean Catch Urine 04/15/2021 10:30 AM EST 04/15/2021 11:52 AM EST Narrative Resulting Agency Comment Spec In Lab Shaunna Nichole MD URINE ORDERABLES Performing Organization Address City/[facility] Co de Phone Number [facility] [place] [address] * (ABNORMAL) Urinalysis with reflex Culture (04/15/2021 10:30 AM EST) Glucose, Urine Dipstick Negative Negative mg/dL [facility] Protein, Urine Dipstick Negative Negative mg/dL [facility] Bilirubin, Urine Dipstick Negative Negative mg/dL [facility] Comment: Clinical correlation required for positive Urine Bilirubin results as false positive may occur with some drugs and drug related products. If a false positive is suspected a serum total bilirubin should be considered if clinically indicated. Urobilinogen, Urine Dipstick Normal Normal mg/dL [facility] pH, Urn (dipstick) 5.5 5.0 - 8.0 [facility] Blood, Urine Dipstick Small(A) Negative mg/dL [facility] Ketone, Urine Dipstick Trace(A) Negative mg/dL [facility] Nitrite, Urine Dipstick Negative Negative [facility] Leukocytes, Urine Dipstick Negative Negative mcL [facility] Appearance, Urine Dipstick Clear Clear [facility] Specific [place] Urine Automated 1.016 1.005 - 1.030 [facility] Color, Urine Dipstick Yellow Yellow [facility] Reflex to Culture No [facility] Clean Catch Urine 04/15/2021 10:30 AM EST 04/15/2021 11:52 AM EST Narrative Resulting Agency Comment Spec In Lab hSaunna Nichole MD URINE ORDERABLES [facility] [place] [address] * (ABNORMAL) Differential, Automated (04/15/2021 9:37 AM EST) Neutrophil % 82.8 % [facility] Neutrophil Absolute 4.64 1.70 - 6.10 x10(3)/mc L [facility] Lymph % 10.5 % [facility] Lymphocytes Abs 0.6(L) 0.9 - 3.2 x10(3)/mc L [facility] Monocyte % 5.3 % [facility] Monocyte Abs 0.3 0.3 - 0.9 x10(3)/mc L [facility] Eos % 0.5 % [facility] Eosinophils Abs 0.0 0.0 - 0.4 x10(3)/mc L [facility] Basophil % 0.2 % [facility] Baso Absolute 0.0 0.0 - 0.1 x10(3)/mc L [facility] Immature Gran % 0.70 % [facility] Comment: Immature granulocytes(IG's)percentage and absolute count will include metamyelocytes, myelocytes, and promyelocytes. Blood smears from CBCs yielding IG's will be scanned manually for concordance. If this scan disagrees with the automated IG or if promyelocytes are noted, a manual differential will be performed. Immature Gran Absolute 0.04 0.00 - 0.04 x10(3)/mc L [facility] Blood 04/15/2021 9:37 AM EST 04/15/2021 10:22 AM EST Narrative Resulting Agency Comment Spec In Lab Shaunna Nichole MD HEMATOLOGY ORDERAB LES [facility] [place] [address] * (ABNORMAL) Hemogram (04/15/2021 9:37 AM EST) White Blood Cell 5.6 4.0 - 9.5 x10(3)/[facility] Red Blood Cell 3.33(L) 4.58 - 5.54 x10(6)/[facility] Hemoglobin 10.5(L) 13.7 - 16.5 g/dL [facility] Hematocrit 31.4(L) 40.5 - 48.5 % [facility] Mean Cell Volume 94.3(H) 82.9 - 93.1 [facility] Mean Cell Hemoglobin 31.5 27.5 - 32.1 pg [facility] Mean Cell Hemoglobin Concentration 33.4 32.0 - 35.7 g/dL [facility] Platelet 162 145 - 357 x10(3)/[facility] RDW Standard Deviation 55.5(H) 36.0 - 45.0 [facility] RDW coefficient of variation 17.1(H) 11.4 - 13.8 % [facility] Mean Platelet Volume 10.2 7.6 - 12.9 [facility] NRBC% auto 0.0 % [facility] NRBC Absolute 0.000 0.000 - 0.000 x10(3)/ L [facility] Blood 04/15/2021 9:37 AM EST 04/15/2021 10:22 AM EST Narrative Resulting Agency Comment Spec In Lab Shaunna Nichole MD HEMATOLOGY ORDERAB LES [facility] [place] [address] * (ABNORMAL) Comprehensive metabolic panel (non-fasting) (04/15/2021 9:37 AM EST) Glucose 60(L) 65 - 199 mg/dL [facility] Comment:Diabetes: >=200 mg/d L plus symptoms Blood Urea Nitrogen 11 10 - 20 mg/dL [facility] Creatinine 0.55(L) 0.80 - 1.50 mg/dL [facility] Sodium 135 135 - 145 mmol/L [facility] Potassium 3.0(Criti enmanuel) 3.5 - 5.0 mmol/L [facility] Comment: Called by: TAI, Read back by: Eloise Coy, Date/Time: 04/15/21 12:16. Please note: ??Patients with WBC >100,000 may have falsely elevated Potassium levels. ??For accurate Potassium quantification in these patients send serum separator tube (gold top) for subsequent determinations. ??Contact the Clinical Chemistry Laboratory if there are any questions. Chloride 106 98 - 107 mmol/L [facility] Carbon Dioxide 18(L) 22 - 31 mmol/L [facility] Anion Gap 11 5 - 15 mmol/L [facility] Calcium 7.8(L) 8.5 - 10.5 mg/dL [facility] Protein, Total 4.9(L) 6.1 - 8.0 g/dL [facility] Albumin 2.3(L) 3.2 - 5.2 g/dL [facility] Aspartate Aminotransferase 21 0 - 39 unit/L [facility] Alanine Aminotransferase 10 0 - 55 unit/L [facility] Alkaline Phosphatase 106 40 - 130 unit/L [facility] Bilirubin, Total 0.8 0.2 - 1.3 mg/dL [facility] Est Glomerular Filtration Rate 106 >=60 mL/min/1. 73 m?? [facility] Comment: This patient? s estimated glomerular filtration rate (eGFR) is between 106 mL/min/1.73 m2 (patients with less muscle mass per kg body weight) and 122 mL/min/1.73 m2 (patients with more muscle mass [...] and symptoms in addition to eGFR. Blood 04/15/2021 9:37 AM EST 04/15/2021 10:22 AM EST Narrative Resulting Agency Comment Spec In Lab Sandy Mak MD CHEMISTRY OR DERABLES [facility] [place] [address] * (ABNORMAL) Differential, Automated (04/14/2021 2:30 PM EST) Neutrophil % 84.3 % [facility] Neutrophil Absolute 4.88 1.70 - 6.10 x10(3)/mc L [facility] Lymph % 10.2 % [facility] Lymphocytes Abs 0.6(L) 0.9 - 3.2 x10(3)/mc L [facility] Monocyte % 4.5 % [facility] Monocyte Abs 0.3 0.3 - 0.9 x10(3)/mc L [facility] Eos % 0.3 % [facility] Eosinophils Abs 0.0 0.0 - 0.4 x10(3)/mc L [facility] Basophil % 0.2 % [facility] Baso Absolute 0.0 0.0 - 0.1 x10(3)/ L [facility] Immature Gran % 0.50 % [facility] Comment: Immature granulocytes(IG's)percentage and absolute count will include metamyelocytes, myelocytes, and promyelocytes. Blood smears from CBCs yielding IG's will be scanned manually for concordance. If this scan disagrees with the automated IG or if promyelocytes are noted, a manual differential will be performed. Immature Gran Absolute 0.03 0.00 - 0.04 x10(3)/[facility] Blood Venous Draw / Unknown 04/14/2021 2:30 PM EST 04/14/2021 3:28 PM EST Narrative Resulting Agency Comment Spec In Lab Shaunna Nichole MD HEMATOLOGY ORDERAB LES Performing Organization Address City/State/[facility] Co de Phone Number [facility] [place] [address] * (ABNORMAL) Hemogram (04/14/2021 2:30 PM EST) White Blood Cell 5.8 4.0 - 9.5 x10(3)/[facility] Red Blood Cell 3.32(L) 4.58 - 5.54 x10(6)/ L [facility] Hemoglobin 10.7(L) 13.7 - 16.5 g/dL [facility] Hematocrit 30.1(L) 40.5 - 48.5 % [facility] Mean Cell Volume 90.7 82.9 - 93.1 fL [facility] Mean Cell Hemoglobin 32.2(H) 27.5 - 32.1 pg [facility] Mean Cell Hemoglobin Concentration 35.5 32.0 - 35.7 g/dL [facility] Platelet 137(L) 145 - 357 x10(3)/[facility] RDW Standard Deviation 55.0(H) 36.0 - 45.0 fL [facility] RDW coefficient of variation 17.1(H) 11.4 - 13.8 % [facility] Mean Platelet Volume 10.1 7.6 - 12.9 fL [facility] NRBC% auto 0.0 % [facility] NRBC Absolute 0.000 0.000 - 0.000 x10(3)/mc L [facility] Blood Venous Draw / Unknown 04/14/2021 2:30 PM EST 04/14/2021 3:28 PM EST Narrative Resulting Agency Comment Spec In Lab Shaunna Nichole MD HEMATOLOGY ORDERAB LES [facility] [place] [address] * (ABNORMAL) CMP w/fasting Glucose (04/14/2021 2:30 PM EST) Glucose Fasting 58(L) 65 - 99 mg/dL [facility] Comment: ?Fasting* Glucose Interpretive Criteria Normal ?65-99 mg/dL Impaired Fasting glucose ?100-125 mg/dL Consistent with Diabetes Mellitus ? >or= 126 mg/dL *Fasting is defined as no caloric intake for at least 8 hours In the absence of unequivocal hyperglycemia a plasma glucose value of >or= 126 mg/dL should be repeated on a subsequent day. Diagnosis and Classification of Diabetes Mellitus, Position Statement from the [place] [employer]. ??Diabetes Care, Volume 33, Supplement 1, Jun 2009 Blood Urea Nitrogen 14 10 - 20 mg/dL [facility] Creatinine 0.59(L) 0.80 - 1.50 mg/dL [facility] Sodium 135 135 - 145 mmol/L [facility] Potassium 3.2(L) 3.5 - 5.0 mmol/L [facility] Comment: Please note: ??Patients with WBC >100,000 may have falsely elevated Potassium levels. ??For accurate Potassium quantification in these patients send serum separator tube (gold top) for subsequent determinations. ??Contact the Clinical Chemistry Laboratory if there are any questions. Chloride 108(H) 98 - 107 mmol/L [facility] Carbon Dioxide 20(L) 22 - 31 mmol/L [facility] Anion Gap 7 5 - 15 mmol/L [facility] Calcium 7.8(L) 8.5 - 10.5 mg/dL [facility] Protein, Total 4.7(L) 6.1 - 8.0 g/dL [facility] Albumin 2.2(L) 3.2 - 5.2 g/dL [facility] Aspartate Aminotransferase 18 0 - 39 unit/L [facility] Alanine Aminotransferase 8 0 - 55 unit/L [facility] Alkaline Phosphatase 91 40 - 130 unit/L [facility] Bilirubin, Total 0.9 0.2 - 1.3 mg/dL [facility] Est Glomerular Filtration Rate 103 >=60 mL/min/1. 73 m?? [facility] Comment: This patient? s estimated glomerular filtration rate (eGFR) is between 103 mL/min/1.73 m2 (patients with less muscle mass per kg body weight) and 119 mL/min/1.73 m2 (patients with more muscle mass [...] and symptoms in addition to eGFR. Blood 04/14/2021 2:30 PM EST 04/14/2021 2:52 PM EST Narrative Resulting Agency Comment Spec In Lab Sandy Mak MD CHEMISTRY OR DERABLES [facility] [place] [address] * Triglyceride (04/14/2021 2:30 PM EST) Triglyceride 50 mg/dL [facility] Comment: Average Risk/Lower Risk: <150 mg/dL Borderline High Risk: 150-199 mg/dL High Risk: 200-499 mg/dL Very High Risk: >ye=538 mg/dL Blood 04/14/2021 2:30 PM EST 04/14/2021 2:52 PM EST Narrative Resulting Agency Comment Spec In Lab Sandy Mak MD CHEMISTRY OR DERABLES [facility] [place] [address] * HDL/Cholesterol Profile (04/14/2021 2:30 PM EST) Cholesterol, Total 58 mg/dL [facility] Comment: Lower Risk: <200 mg/dL Average Risk: 200-239 mg/dL Higher Risk: >pl=927 mg/dL HDL Cholesterol 31 mg/dL [facility] Comment: Males: ?? Higher Risk: <40 mg/dL Females: ?? Higher Risk: <50 mg/dL Cholesterol/HDL Ratio 1.9 ratio [facility] Chol/HDL Interpretation See Note [facility] Comment: Lipid management should be guided by a patient? s ASCVD risk, goals and preferences. ACC/AHA Guidelines recommend high intensity statin if clinical ASCVD or LDL greater than or equal to 190 mg/dL. http://tinyurl.com/QLN-ROQ-Bslhhlcpt Measure LDL if Total Cholesterol minus HDL Cholesterol is greater than 220 mg/dL. Adults aged 40-75 with LDL 70-189 mg/dL should have their 10 year ASCVD risk estimated with the ACC/AHA ASCVD risk estimator and drafter supervisor http://tools.acc.org/CYQRV-Eqiy-Vgjbccgeu/ Statin should be discussed if risk greater than or equal to 7.5% in non-diabetics. With diabetes, moderate intensity statin is recommended if risk less than 7.5%, high intensity if risk greater than or equal to 7.5%. Annual lipid monitoring on statins is not necessary. Lifestyle modification is a critical component of ASCVD risk reduction. Blood 04/14/2021 2:30 PM EST 04/14/2021 2:52 PM EST Narrative Resulting Agency Comment Spec In Lab Sandy Mak MD CHEMISTRY OR DERABLES Performing Organization Address [facility] Co de Phone Number [facility] [place] [address] * LDL Cholesterol, Direct (04/14/2021 2:30 PM EST) LDL Cholesterol, Direct 20 mg/dL [facility] Comment: Lowest Risk: <100 mg/dL Lower Risk: 100-129 mg/dL Borderline High Risk: 130-159 mg/dL High Risk: 160-189 mg/dL Very High Risk: >kx=897 mg/dL Blood 04/14/2021 2:30 PM EST 04/14/2021 2:52 PM EST Narrative Resulting Agency Comment Spec In Lab Sandy Mak MD CHEMISTRY OR DERABLES Performing Organization Address [facility] de Phone Number [facility] [place] [address] * Hemoglobin A1c (04/14/2021 2:30 PM EST) Hemoglobin A1c 5.4 4.3 - 5.6 % [facility] Comment: Reference Range: 4.3 [...] Mellitus, Diabetes Care 2013; 36: Suppl. 1, S30-79 Estimated Average Glucose See note mg/dL [facility] Comment: Estimated Average Glucose [...] into estimated average glucose values. ??Diabetes Care 2008:31(8):3649-8946. Blood 04/14/2021 2:30 PM EST 04/14/2021 2:52 PM EST Narrative Resulting Agency Comment Spec In Lab Sandy Mak MD CHEMISTRY OR DERABLES [facility] [place] [address] * XR Chest One View (04/13/2021 9:13 PM EST) Anatomical Region Laterality Modality Chest N/A Digital Radiogra phy Impressions 04/13/2021 11:04 PM EST 1. ??Patchy bilateral airspace opacities, consistent with patient's history of COVID. 2. ??Taking differences in technique into account stable dilated loop of colon in the left upper quadrant. Preliminary report signed by: Ronald Morfin at 04/13/2021 9:27 PM I have personally reviewed the image(s) and the resident's interpretation and agree with the findings, Keli Mercedes MD at 04/13/2021 11:04 PM Thank you for letting us participate in the care of this patient. ??If you are a health care provider and have any questions regarding this report, please contact the number below. ??For patients who have questions please contact the health care director that requested your imaging first. ? Narrative 04/13/2021 11:04 PM EST EXAMINATION: XR CHEST ONE VIEW CLINICAL HISTORY: COVID + TECHNIQUE: 1 view of the chest COMPARISON: CT chest 04/10/2021, radiographs 08/25/2008 FINDINGS: Intact sternal cables. Multiple postsurgical clips left upper quadrant. Bilateral patchy hazy airspace opacities, right greater than left. Left hemidiaphragm is obscured by dilated bowel and opacities. Cardiomediastinal silhouette and hilar contours are unremarkable. Pulmonary vasculature is unremarkable. Old healed left rib fractures. Emphysematous changes of the upper lobes. Procedure Note Keli Mercedes MD - 04/13/2021 EXAMINATION: XR CHEST ONE VIEW CLINICAL HISTORY: COVID + TECHNIQUE: 1 view of the chest COMPARISON: CT chest 04/10/2021, radiographs 08/25/2008 FINDINGS: Intact sternal cables. Multiple postsurgical clips left upper quadrant. Bilateral patchy hazy airspace opacities, right greater than left. Left hemidiaphragm is obscured by dilated bowel and opacities.Cardiomediastinal silhouette and hilar contours are unremarkable. Pulmonary vasculature is unremarkable. Old healed left rib fractures. Emphysematous changes of the upper lobes. IMPRESSION 1. Patchy bilateral airspace opacities, consistent with patient's historyof COVID. 2. Taking differences in technique into account stable dilated loop ofcolon in the left upper quadrant. Preliminary report signed by: Ronald Morfin at 04/13/2021 9:27 PM I have personally reviewed the image(s) and the resident's interpretationand agree with the findings, Keli Mercedes MD at 04/13/2021 11:04 PM Thank you for letting us participate in the care of this patient. If youare a health care provider and have any questions regarding this report,please contact the number below. For patients who have questions please contactthe health care director that requested your imaging first. Sandy Mak MD IMG DX ORDER CORDELAI * Type and Screen Validity (04/13/2021 8:07 PM EST) [facility] T&S only valid at [facility] Comment:This Type and Screen result is only valid at the [facility] Blood Venous Draw / Unknown 04/13/2021 8:07 PM EST 04/13/2021 8:12 PM EST Narrative Resulting Agency Comment Spec In Lab Sandy Mak MD BLOOD BANK L AB ORDERABLES [facility] [place] [address] * ABORH Recheck Status (04/13/2021 8:07 PM EST) Pathologist [facility] ABORH Type Recheck Completed [facility] Blood Venous Draw / Unknown 04/13/2021 8:07 PM EST 04/13/2021 8:12 PM EST Narrative Resulting Agency Comment Spec In Lab Sandy Mak MD BLOOD BANK L AB ORDERABLES Performing Organization Address City/[facility]/ZIP Co de Phone Number [facility] [place] [address] * Selected Cell Screen (04/13/2021 8:07 PM EST) Ab Screen Interp Previously identified Anti-K, M. No additional alloantibodies detected.* *Due to the presence of alloantibody(ies) additional time is required for preparation of Red Cell Products. See initial antibody identification report for additional information. [facility] Blood Venous Draw / Unknown 04/13/2021 8:07 PM EST 04/13/2021 8:12 PM EST Narrative Resulting Agency Comment Spec In Lab Sandy Mak MD BLOOD BANK L AB ORDERABLES Performing Organization Address City/[facility] Co de Phone Number [facility] [place] [address] * ABORh Type Manual (04/13/2021 8:07 PM EST) Expires at [id number] on: 04/16/2021 [facility] ABORH Type O Pos [facility] Blood Venous Draw / Unknown 04/13/2021 8:07 PM EST 04/13/2021 8:12 PM EST Narrative Resulting Agency Comment Spec In Lab Sandy Mak MD BLOOD BANK L AB ORDERABLES Performing Organization Address City/[facility]/ZIP Co de Phone Number [facility] [place] [address] * Blue Tube HOLD (04/13/2021 8:07 PM EST) Blue Hold Sample in lab. [facility] Blood Venous Draw / Unknown 04/13/2021 8:07 PM EST 04/13/2021 8:17 PM EST Sandy Mak MD HEMATOLOGY O RDERABLES Performing Organization Address City/[facility]/ZIP Co de Phone Number [facility] [place] [address] * Lactate Dehydrogenase (04/13/2021 8:07 PM EST) Lactate Dehydrogenase 189 110 - 220 unit/L [facility] Blood 04/13/2021 8:07 PM EST 04/13/2021 8:16 PM EST Narrative Resulting Agency Comment Spec In Lab Sandy Mak MD CHEMISTRY OR DERABLES Performing Organization Address [facility] Co de Phone Number [facility] [place] [address] * Ferritin (04/13/2021 8:07 PM EST) Pathologist [facility] Ferritin 255 30 - 400 ng/mL [facility] Comment: Pediatric reference ranges not verified at [facility], interpret with caution. Reference ranges for females greater than 50 years of age approach values for men, i.e., 30-400 ng/mL. Blood 04/13/2021 8:07 PM EST 04/13/2021 8:16 PM EST Narrative Resulting Agency Comment Spec In Lab Sandy Mak MD CHEMISTRY OR DERABLES Performing Organization Address City/[facility] Co de Phone Number [facility] [place] [address] * (ABNORMAL) CRP, acute inflammation (04/13/2021 8:07 PM EST) C-Reactive Protein 51.3(H) <=4.9 mg/L [facility] Blood 04/13/2021 8:07 PM EST 04/13/2021 8:16 PM EST Narrative Resulting Agency Comment Spec In Lab Sandy Mak MD CHEMISTRY OR DERABLES Performing Organization Address [facility]/ZIP Co de Phone Number [facility] [place] [address] * (ABNORMAL) D-Dimer, Quantitative (04/13/2021 8:07 PM EST) [facility] D-Dimer 536(H) 0 - 500 FEU ng/ml [facility] Comment: The D-Dimer assay is used to aid in the diagnosis of deep vein thrombosis and pulmonary embolism. A normal D-Dimer result (less than 500 FEU ng/ml) has a negative predictive value of approximately 95% for the exclusion of acute PE and DVT when there is low to moderate pretest probability. To use age adjusted cutoff: Age x 10 ng/ml. Blood 04/13/2021 8:07 PM EST 04/13/2021 8:16 PM EST Narrative Resulting Agency Comment Spec In Lab Sandy Mak MD HEMATOLOGY O RDERABLES Performing Organization Address [facility] Co de Phone Number [facility] [place] [address] * (ABNORMAL) Differential, Automated (04/13/2021 8:07 PM EST) [facility] Neutrophil % 84.3 % [facility] Neutrophil Absolute 5.62 1.70 - 6.10 x10(3)/mc L [facility] Lymph % 11.1 % [facility] Lymphocytes Abs 0.7(L) 0.9 - 3.2 x10(3)/mc L [facility] Monocyte % 3.6 % [facility] Monocyte Abs 0.2(L) 0.3 - 0.9 x10(3)/mc L [facility] Eos % 0.6 % [facility] Eosinophils Abs 0.0 0.0 - 0.4 x10(3)/mc L [facility] Basophil % 0.1 % [facility] Baso Absolute 0.0 0.0 - 0.1 x10(3)/ L [facility] Immature Gran % 0.30 % [facility] Comment: Immature granulocytes(IG's)percentage and absolute count will include metamyelocytes, myelocytes, and promyelocytes. Blood smears from CBCs yielding IG's will be scanned manually for concordance. If this scan disagrees with the automated IG or if promyelocytes are noted, a manual differential will be performed. Immature Gran Absolute 0.02 0.00 - 0.04 x10(3)/ L [facility] Blood 04/13/2021 8:07 PM EST 04/13/2021 8:16 PM EST Narrative Resulting Agency Comment Spec In Lab Sandy Mak MD HEMATOLOGY O RDERABLES [facility] [place] [address] * (ABNORMAL) Hemogram (04/13/2021 8:07 PM EST) White Blood Cell 6.7 4.0 - 9.5 x10(3)/[facility] Red Blood Cell 3.37(L) 4.58 - 5.54 x10(6)/ L [facility] Hemoglobin 10.6(L) 13.7 - 16.5 g/dL [facility] Hematocrit 31.4(L) 40.5 - 48.5 % [facility] Mean Cell Volume 93.2(H) 82.9 - 93.1 fL [facility] Mean Cell Hemoglobin 31.5 27.5 - 32.1 pg [facility] Mean Cell Hemoglobin Concentration 33.8 32.0 - 35.7 g/dL [facility] Platelet 116(L) 145 - 357 x10(3)/[facility] RDW Standard Deviation 57.1(H) 36.0 - 45.0 fL [facility] RDW coefficient of variation 17.7(H) 11.4 - 13.8 % [facility] Mean Platelet Volume 10.3 7.6 - 12.9 fL [facility] NRBC% auto 0.0 % [facility] NRBC Absolute 0.000 0.000 - 0.000 x10(3)/mc L [facility] Blood 04/13/2021 8:07 PM EST 04/13/2021 8:16 PM EST Narrative Resulting Agency Comment Spec In Lab Sandy Mak MD HEMATOLOGY O RDERABLES Performing Organization Address City/[facility]/ZIP Co de Phone Number [facility] [place] [address] * Blood culture (04/13/2021 8:07 PM EST) Blood Culture No growth at 5 days. [facility] Blood STRUCTURE OF RIGHT HAND / Unknown 04/13/2021 8:07 PM EST 04/13/2021 8:34 PM EST Narrative Resulting Agency Comment Spec In Lab Sandy Mak MD MICROBIOLOGY - BLOOD ORDERABLES Performing Organization Address [facility] Co de Phone Number [facility] [place] [address] * Blood culture (04/13/2021 8:07 PM EST) Blood Culture No growth at 5 days. [facility] Blood STRUCTURE OF LEFT FOREARM / Unknown 04/13/2021 8:07 PM EST 04/13/2021 8:35 PM EST Narrative Resulting Agency Comment Spec In Lab Sandy Mak MD MICROBIOLOGY - BLOOD ORDERABLES Performing Organization Address City/[facility]/ZIP Co de Phone Number [facility] [place] [address] * APTT (04/13/2021 8:07 PM EST) Partial Thromboplastin Time 33 25 - 37 sec [facility] Comment: The PTT is NOT appropriate for heparin monitoring. Use the Anti-Xa level for heparin monitoring (HEP UFH) or LMWH monitoring (HEP LMW). A PTT less than 37 seconds generally indicates adequate hemostasis. Blood 04/13/2021 8:07 PM EST 04/13/2021 8:16 PM EST Narrative Resulting Agency Comment Spec In Lab Sandy Mak MD HEMATOLOGY O RDERABLES Performing Organization Address [facility] Co de Phone Number [facility] [place] [address] * (ABNORMAL) Prothrombin Time (04/13/2021 8:07 PM EST) Prothrombin Time 15.3(H) 9.4 - 12.5 sec [facility] International Normalization Ratio 1.3 [facility] Comment: An INR <2.0 indicates adequate procoagulant activity for hemostasis in most patients without underlying bleeding disorders, though the INR may not adequately reflect hemostatic capacity in patients with liver disease and synthetic impairment. The recommended target INR range for therapeutic anticoagulation is 2.0 ? 3.0 for most applications, though lower and higher ranges may be appropriate depending on clinical circumstances. Blood 04/13/2021 8:07 PM EST 04/13/2021 8:16 PM EST Narrative Resulting Agency Comment Spec In Lab Sandy Mak MD HEMATOLOGY O RDERABLES Performing Organization Address City/[facility]/ZIP Co de Phone Number [facility] [place] [address] * (ABNORMAL) Hepatic Function Panel (04/13/2021 8:07 PM EST) Protein, Total 5.2(L) 6.1 - 8.0 g/dL [facility] Albumin 2.4(L) 3.2 - 5.2 g/dL [facility] Aspartate Aminotransferase 19 0 - 39 unit/L [facility] Alanine Aminotransferase 10 0 - 55 unit/L [facility] Alkaline Phosphatase 94 40 - 130 unit/L [facility] Bilirubin, Total 1.0 0.2 - 1.3 mg/dL [facility] Bilirubin, Direct 0.6(H) 0.0 - 0.3 mg/dL [facility] Blood 04/13/2021 8:07 PM EST 04/13/2021 8:16 PM EST Narrative Resulting Agency Comment Spec In Lab Sandy Mak MD CHEMISTRY OR DERABLES Performing Organization Address [facility] Co de Phone Number [facility] [place] [address] * (ABNORMAL) Phosphorus (04/13/2021 8:07 PM EST) Phosphorus 2.3(L) 2.5 - 4.5 mg/dL [facility] Blood 04/13/2021 8:07 PM EST 04/13/2021 8:16 PM EST Narrative Resulting Agency Comment Spec In Lab Sandy Mak MD CHEMISTRY OR DERABLES Performing Organization Address [facility] Co de Phone Number [facility] [place] [address] * Magnesium (04/13/2021 8:07 PM EST) Magnesium 0.73 0.69 - 1.07 mmol/L [facility] Blood 04/13/2021 8:07 PM EST 04/13/2021 8:16 PM EST Narrative Resulting Agency Comment Spec In Lab Sandy Mak MD CHEMISTRY OR DERABLES [facility] [place] [address] * (ABNORMAL) Calcium (04/13/2021 8:07 PM EST) Calcium 8.0(L) 8.5 - 10.5 mg/dL [facility] Blood 04/13/2021 8:07 PM EST 04/13/2021 8:16 PM EST Narrative Resulting Agency Comment Spec In Lab Sandy Mak MD CHEMISTRY OR DERABLES [facility] [place] [address] * (ABNORMAL) Basic Metabolic Panel (non-fasting) (04/13/2021 8:07 PM EST) Glucose 68 65 - 199 mg/dL [facility] Comment:Diabetes: >=200 mg/d L plus symptoms Blood Urea Nitrogen 18 10 - 20 mg/dL [facility] Creatinine 0.65(L) 0.80 - 1.50 mg/dL [facility] Sodium 137 135 - 145 mmol/L [facility] Potassium 3.6 3.5 - 5.0 mmol/L [facility] Comment: Please note: ??Patients with WBC >100,000 may have falsely elevated Potassium levels. ??For accurate Potassium quantification in these patients send serum separator tube (gold top) for subsequent determinations. ??Contact the Clinical Chemistry Laboratory if there are any questions. Chloride 110(H) 98 - 107 mmol/L [facility] Carbon Dioxide 21(L) 22 - 31 mmol/L [facility] Anion Gap 6 5 - 15 mmol/L [facility] Calcium 8.0(L) 8.5 - 10.5 mg/dL [facility] Est Glomerular Filtration Rate 99 >=60 mL/min/1. 73 m?? [facility] Comment: This patient? s estimated glomerular filtration rate (eGFR) is between 99 mL/min/1.73 m2 (patients with less muscle mass [...] and symptoms in addition to eGFR. Blood 04/13/2021 8:07 PM EST 04/13/2021 8:16 PM EST Narrative Resulting Agency Comment Spec In Lab Sandy Mak MD CHEMISTRY OR DERABLES [facility] [place] [address] * Request For 2nd Read CT Chest Abdomen Pelvis (04/13/2021 7:27 PM EST) Anatomical Region Laterality Modality Chest, Abdomen, Pelvis SO Impressions 04/14/2021 9:34 AM EST 1. ??There is no pulmonary embolism. 2. ??Consolidative changes within the lung bases, debris within the airways, and a large hiatal hernia with fluid in the esophagus. These findings are concerning for aspiration. 3. ??Severe emphysema. 4. ??No acute intra-abdominal process. I have personally reviewed the image(s) and the resident's interpretation and agree with the findings, Shaun De Los Santos MD at 04/14/2021 9:34 AM Thank you for letting us participate in the care of this patient. ??If you are a health care provider and have any questions regarding this report, please contact the number below. ??For patients who have questions please contact the health care director that requested your imaging first. ? Narrative 04/14/2021 9:34 AM EST EXAMINATION: REQUEST FOR 2ND READ CT CHEST ABDOMEN PELVIS CLINICAL HISTORY: Cirrhosis; Sending Institution [facility]; Date of exam [id number]; I believe a reinterpretation of this exam may alter care of Patient. Yes Per chart review additional clinical history of tachycardia, pain, question PE versus cholecystitis was provided. The patient also has history of esophageal cancer. TECHNIQUE: Helical CT of the chest, abdomen, and pelvis was performed following the intravenous administration of contrast. Oral contrast was not administered. This study was performed at an outside hospital and images were submitted for reinterpretation. COMPARISON: CT chest abdomen and pelvis 03/20/2031. CT chest abdomen pelvis 08/26/2008 and 08/18/2008. FINDINGS: Chest: Lungs and large airways: Evaluation of the lungs and distal airways is limited due to respiratory motion. The trachea and mainstem bronchi are widely patent. There is debris within the right bronchus intermedius. There is diffuse bronchial wall thickening. There is a background of severe emphysema. There is consolidative change within the right lung base, increased compared to prior CT 03/20/2021. There are scattered tree-in-bud airspace densities within the middle lobe. There are scattered nodular densities within the left lung base. For example, there is a 10 x 6 mm nodule in the medial aspect of the left lower lobe (series 5 image 385), new since prior CT on 03/20/2021. Pleura: No effusion. Heart/vasculature: There is no cardiomegaly or pericardial effusion. There are moderate multivessel atherosclerotic calcifications of the the [place] coronary arteries. There are median sternotomy wires. There is no pulmonary embolism.. Lymph nodes: There is no supraclavicular or axillary lymphadenopathy. Unchanged appearance of 1 cm right hilar lymph node (series 4 image 35). This is likely reactive in the setting of pulmonary parenchymal disease. Mediastinum and sara: There is fluid within the distal esophagus and a large hiatal hernia with anastomotic sutures suggesting prior distal esophagectomy/subtotal gastrectomy. Abdomen/pelvis: Liver: Normal size and attenuation without lesions. Bile ducts: Nondilated. Gallbladder: No calcified gallstones. Normal caliber wall. Pancreas: Calcifications within the head of the pancreas are again noted. The remaining pancreas demonstrates normal bulk and attenuation without focal lesion. The pancreatic duct is not dilated. Spleen: The splenic morphology is unchanged. There is no splenomegaly or splenic lesion. Plaque-like calcifications along the superior capsular surface of the spleen are again noted. Adrenals: Normal. Kidneys: Normal. Urinary Bladder: The urinary bladder is decompressed. Vasculature: There is extensive atherosclerotic calcification of the aorta and iliac arteries. No aneurysm. Lymph Nodes: ??No enlarged lymph nodes. Bowel: No dilated loops of bowel to suggest obstruction. No focal or segmental bowel wall thickening. There is a large amount of stool within the rectum measuring up to 8.5 cm in diameter. Peritoneum and mesentery: No ascites, free air, or loculated fluid collection. No mesenteric inflammation. Abdominal wall: There is a scaphoid appearance of the ventral abdominal wall with scattered surgical clips. Reproductive organs: The prostate is enlarged. Osseous structures: Multiple left-sided posterior rib deformities are unchanged and represent old fractures. There is no suspicious osseous lesion. Procedure Note Shaun De Los Santos MD - 04/14/2021 EXAMINATION: REQUEST FOR 2ND READ CT CHEST ABDOMEN PELVIS CLINICAL HISTORY: Cirrhosis; Sending Institution [facility];Date of exam [id number]; I believe a reinterpretation of this exam may alter careof Patient. Yes Per chart review additional clinical history of tachycardia, pain,question PE versus cholecystitis was provided. The patient also has history ofesophageal cancer. TECHNIQUE: Helical CT of the chest, abdomen, and pelvis was performedfollowing the intravenous administration of contrast. Oral contrast was notadministered. This study was performed at an outside hospital and images were submittedfor reinterpretation. COMPARISON: CT chest abdomen and pelvis 03/20/2031. CT chest abdomenpelvis 08/26/2008 and 08/18/2008. FINDINGS: Chest: Lungs and large airways: Evaluation of the lungs and distal airways islimited due to respiratory motion. The trachea and mainstem bronchi are widelypatent. There is debris within the right bronchus intermedius. There is diffuse bronchial wall thickening. There is a background of severe emphysema.There is consolidative change within the right lung base, increased compared toprior CT 03/20/2021. There are scattered tree-in-bud airspace densities within themiddle lobe. There are scattered nodular densities within the left lung base.For example, there is a 10 x 6 mm nodule in the medial aspect of the leftlower lobe (series 5 image 385), new since prior CT on 03/20/2021. Pleura: No effusion. Heart/vasculature: There is no cardiomegaly or pericardial effusion. Thereare moderate multivessel atherosclerotic calcifications of the [place]coronary arteries. There are median sternotomy wires. There is no pulmonaryembolism.. Lymph nodes: There is no supraclavicular or axillary lymphadenopathy.Unchanged appearance of 1 cm right hilar lymph node (series 4 image 35). This islikely reactive in the setting of pulmonary parenchymal disease. Mediastinum and sara: There is fluid within the distal esophagus and alarge hiatal hernia with anastomotic sutures suggesting prior distal esophagectomy/subtotal gastrectomy. Abdomen/pelvis: Liver: Normal size and attenuation without lesions. Bile ducts: Nondilated. Gallbladder: No calcified gallstones. Normal caliber wall. Pancreas: Calcifications within the head of the pancreas are again noted.The remaining pancreas demonstrates normal bulk and attenuation withoutfocal lesion. The pancreatic duct is not dilated. Spleen: The splenic morphology is unchanged. There is no splenomegaly orsplenic lesion. Plaque-like calcifications along the superior capsular surface ofthe spleen are again noted. Adrenals: Normal. Kidneys: Normal. Urinary Bladder: The urinary bladder is decompressed. Vasculature: There is extensive atherosclerotic calcification of the aortaand iliac arteries. No aneurysm. Lymph Nodes: No enlarged lymph nodes. Bowel: No dilated loops of bowel to suggest obstruction. No focal orsegmental bowel wall thickening. There is a large amount of stool within therectum measuring up to 8.5 cm in diameter. Peritoneum and mesentery: No ascites, free air, or loculated fluidcollection. No mesenteric inflammation. Abdominal wall: There is a scaphoid appearance of the ventral abdominalwall with scattered surgical clips. Reproductive organs: The prostate is enlarged. Osseous structures: Multiple left-sided posterior rib deformities areunchanged and represent old fractures. There is no suspicious osseous lesion. IMPRESSION 1. There is no pulmonary embolism. 2. Consolidative changes within the lung bases, debris within theairways, and a large hiatal hernia with fluid in the esophagus. These findings areconcerning for aspiration. 3. Severe emphysema. 4. No acute intra-abdominal process. I have personally reviewed the image(s) and the resident's interpretationand agree with the findings, Shaun De Los Santos MD at 04/14/2021 9:34 AM Thank you for letting us participate in the care of this patient. If youare a health care provider and have any questions regarding this report,please contact the number below. For patients who have questions please contactthe health care director that requested your imaging first. Sandy Mak MD IMG OUTSIDE INTERPRETATION ORDERABLES * EKG 12 Lead (04/13/2021 6:29 PM EST) Pathologist [facility] Ventricular rate 78 BPM MUSE SYSTEM Atrial Rate 108 BPM MUSE SYSTEM QRS Duration 66 ms MUSE SYSTEM Q-T Interval 392 ms MUSE SYSTEM QTC Calculated (Bezet) 446 ms MUSE SYSTEM Calculated R [place] 101 degrees MUSE SYSTEM Calculated T [place] 58 degrees MUSE SYSTEM INTERPRETATION Atrial fibrillation Possible Right ventricular hypertrophy Nonspecific T wave abnormality , probably digitalis effect Abnormal ECG When compared with ECG of 21-AUG-2008 16:12, Atrial fibrillation has replaced Sinus rhythm QRS voltage has decreased Confirmed by MD Javon, Manish Han ([id number]) on 04/14/2021 12:22:00 PM MUSE SYSTEM 04/13/2021 6:29 PM EST 04/14/2021 12:22 PM EST Sandy Mak MD ECG ORDERABL ES MUSE SYSTEM * (ABNORMAL) COVID-19 PCR (04/13/2021 5:51 PM EST) Pathologist [facility] SARS-CoV-2 RNA (Rapid) Detected (A) Not Detected [facility] Comment: This result should be interpreted in combination with the clinical observations, patient history and epidemiological information. For testing of asymptomatic individuals, assay performance characteristics and clinical utility have not been evaluated. Testing for SARS-CoV-2 (Severe acute respiratory syndrome coronavirus 2, formerly known as 2019 novel coronavirus or 2019-nCoV) to aid in the diagnosis of COVID-19 is performed using the Simplexa COVID-19 Direct Assay by [employer] as authorized by the FDA issued Emergency Use Authorization (EUA). This assay is intended for In-vitro Diagnostic (IVD) use with nasopharyngeal swabs collected from individuals meeting the CDC criteria for testing. The assay is performed based on the instructions for use and additional guidance provided by the FDA. Testing is performed in the Microbiology Laboratory within the Department of Pathology and Laboratory Medicine at [facility], certified under the Clinical Laboratory Improvement Amendments of 1988 (CLIA), 42 U.S.C. section 263a, to perform high complexity tests. Assay performance has been verified according to clinical laboratory regulatory requirements. Test results are provided above. A result of Not Detected indicates that the viral RNA target is not present but does not preclude SARS-CoV-2 infection. False negative results may occur if a specimen is improperly collected, transported or handled; if amplification inhibitors are present; or if inadequate numbers of viral particles are present in the specimen. A result of Detected suggests a current or recent infection and the patient is presumed to be infected. Positive and negative predictive values for this test are highly dependent on disease prevalence. A result of Invalid indicates the inability to conclusively determine the presence or absence of SARS-CoV-2 RNA in the sample which can be due to a variety of factors. Recollection is recommended in the case of an invalid result. CDC COVID-19 criteria for testing on human specimens and clinical management guidance information are available at the CDC Coronavirus Disease 2019 (COVID-19) webpage under Information for Healthcare Professionals (https://www.cdc.gov/coronavirus/2019-ncov/hcp/index.html). Additional information about this and other EUA tests can be found in provider and patient fact sheets at the following FDA website: https://www.fda.gov/medical-devices/jnnhbwjmigr-igudulh-1009-yfnnz-13-mbmnkizpc- use-a mshlirdqqitdx-ljeqegu-bjqapfn/ppplr-tkkbsuydcdg-izgh SARS-CoV-2 Source [employer]ST Swab MA [facility] Nasopharyngeal Swab 04/13/20 5:51 PM EST 04/13/2021 6:25 PM EST Comment:Symptoms->COVID-19 S uspected Narrative Resulting Agency Comment Spec In Lab Sandy Mak MD MICROBIOLOGY - GENERAL ORDERABLES [facility] [place] [address] documented in this encounter Visit Diagnoses Not on filedocumented in this encounter Admitting Diagnoses Diagnosis GIB (gastrointestinal bleeding) Hemorrhage of gastrointestinal tract, unspecified documented in this encounter Administered Medications Inactive Administered Medications - up to 3 most recent administrations Medication Order MAR Action Action Date Dose Rate Site atorvastatin (Lipitor) tablet 40 mg 40 mg, Oral, DAILY, First dose on Tue04/14/21 at 0900, Until Discontinued, Routine Given 04/16/2021 10:00 AM EST 40 mg Given 04/14/2021 9:10 AM EST 40 mg buPROPion SR (Wellbutrin SR) tablet 150 mg 150 mg, Oral, 2 TIMES DAILY, First dose on Tue04/13/21 at 2100, Until Discontinued, DO NOT CRUSH OR OPEN, Routine Given 04/16/2021 10:00 AM EST 150 mg Given 04/15/2021 9:01 PM EST 150 mg Given 04/15/2021 11:02 AM EST 150 mg cefTRIAXone (Rocephin) 1 g vial attach to sodium chloride 0.9% 50 mL Mini-Bag Plus 1 g, Intravenous, EVERY 24 HOURS, First dose on Tue04/13/21 at 1845, Until Discontinued, Administer over 30 Minutes, Indication for (Active or Suspected): GI/Intra-abdominal New Bag 04/15/2021 6:28 PM EST 1 g 100 mL/hr New Bag 04/14/2021 6:36 PM EST 1 g 100 mL/hr New Bag 04/13/2021 6:38 PM EST 1 g 100 mL/hr dextrose 10% infusion 250 mL, at 1,000 mL/hr, Intravenous, EVERY 30 MIN PRN, Starting on Tue04/14/21 at 0004, Until Tue04/16/21 at 1907, For BG 50-70 mg/dL: Oral treatment preferred: If able to drink, give 120 mL Juice or Regular (not diet) soda OR If NPO, give 15 gram glucose 40% oral gel massaged into buccal mucosa OR if unconscious or uncooperative, give 25 gram (250 mL) Dextrose 10% IV over 15 minutes per protocol OR, if no IV access, 1 mg Glucagon IM. For BG less than 50 mg/dL: Oral treatment preferred: If able to drink, give 240 mL Juice or Regular (not diet) soda OR If NPO, give 30 gram glucose 40% oral gel massaged in buccal mucosa OR if unconscious or uncooperative, give 25 gram (250 mL) Dextrose 10% IV over 15 minutes per protocol OR, if no IV access, 1 mg Glucagon IM. Recheck BG in 30 minutes. May repeat juice/soda, gel, dextrose or glucagon once per episode. For persistent hypoglycemia, consider longer-acting treatment for the duration of the active insulin. folic acid (Folvite) tablet 1,000 mcg 1,000 mcg, Oral, DAILY, First dose on Tue04/13/21 at 1845, Until Discontinued, Routine Given 04/16/2021 10:00 AM EST 1,000 mcg Given 04/14/2021 8:45 AM EST 1,000 mcg Given 04/13/2021 6:40 PM EST 1,000 mcg glucagon (Glucagen) (1 mg/mL) injection solution 1 mg 1 mg, Intramuscular, EVERY 30 MIN PRN, Starting on Tue04/14/21 at 0004, Until Tue04/16/21 at 1907, Low blood sugar, For BG 50-70 mg/dL: Oral treatment preferred: If able to drink, give 120 mL Juice or Regular (not diet) soda OR If NPO, give 15 gram glucose 40% oral gel massaged into buccal mucosa OR if unconscious or uncooperative, give 25 gram (250 mL) Dextrose 10% IV over 15 minutes per protocol OR, if no IV access, 1 mg Glucagon IM. For BG less than 50 mg/dL: Oral treatment preferred: If able to drink, give 240 mL Juice or Regular (not diet) soda OR If NPO, give 30 gram glucose 40% oral gel massaged in buccal mucosa OR if unconscious or uncooperative, give 25 gram (250 mL) Dextrose 10% IV over 15 minutes per protocol OR, if no IV access, 1 mg Glucagon IM. Recheck BG in 30 minutes. May repeat juice/soda, gel, dextrose or glucagon once per episode. For persistent hypoglycemia, consider longer-acting treatment for the duration of the active insulin., Routine glucose (GLUTOSE) 40% oral geL 15-30 g, Buccal, EVERY 30 MIN PRN, Starting on Tue04/14/21 at 0004, Until Tue04/16/21 at 1907, Low blood sugar, For BG 50-70 mg/dL: Oral treatment preferred: If able to drink, give 120 mL Juice or Regular (not diet) soda OR If NPO, give 15 gram glucose 40% oral gel massaged into buccal mucosa OR if unconscious or uncooperative, give 25 gram (250 mL) Dextrose 10% IV over 15 minutes per protocol OR, if no IV access, 1 mg Glucagon IM. For BG less than 50 mg/dL: Oral treatment preferred: If able to drink, give 240 mL Juice or Regular (not diet) soda OR If NPO, give 30 gram glucose 40% oral gel massaged in buccal mucosa OR if unconscious or uncooperative, give 25 gram (250 mL) Dextrose 10% IV over 15 minutes per protocol OR, if no IV access, 1 mg Glucagon IM. Recheck BG in 30 minutes. May repeat juice/soda, gel, dextrose or glucagon once per episode. For persistent hypoglycemia, consider longer-acting treatment for the duration of the active insulin. 1 tube contains 15 grams of glucose (net weight of tube = 37.5 grams., Routine Given 04/15/2021 11:16 AM EST 15 g Given 04/14/2021 3:52 PM EST 15 g Given 04/14/2021 8:43 AM EST 15 g insulin lispro (HumaLOG;Admelog) (100 unit/mL) subcutaneous injection vial 1-5 Units 1-5 Units, Subcutaneous, 3 TIMES DAILY BEFORE MEALS, First dose on Tue04/14/21 at 0730, Until Discontinued, CORRECTION BOLUS [1-4 Units] Sensitive Sliding Scale (BG in mg/dL): Correction factor 40 (1 unit of insulin is expected to drop the glucose 40 mg/dL) BG 160 - 200 Give 1 unit BG 201 - 240 Give 2 units BG 241 - 280 Give 3 units BG greater than 280, give 4 units and recheck BG in 2 hours. - If recheck BG is LESS than 280, give no insulin and resume schedule - If recheck BG is GREATER than 280, give 4 units and repeat BG in 2 hours (no more than 3 times) & call for new insulin orders. DO NOT hold if NPO, unless specifically directed to do so by written order. Per Blood Glucose Monitoring Policy, re-check a BG of > 240 mg/dL in 2 hours., Routine metoprolol tartrate (Lopressor) tablet 12.5 mg 12.5 mg, Oral, 2 TIMES DAILY, First dose on Tue04/14/21 at 0900, Until Discontinued, Routine Given 04/16/2021 10:00 AM EST 12.5 mg Given 04/15/2021 9:00 PM EST 12.5 mg Given 04/15/2021 8:54 AM EST 12.5 mg pantoprazole (Protonix) injection 40 mg 40 mg, Intravenous, 2 TIMES DAILY, First dose on Tue04/13/21 at 1845, Until Discontinued Given 04/16/2021 10:00 AM EST 40 mg Given 04/15/2021 9:00 PM EST 40 mg Given 04/15/2021 8:11 AM EST 40 mg sodium chloride 0.9 % (flush) (BD PosiFlush Normal Saline 0.9) flush 5 mL 5 mL, Intravenous, 2 TIMES DAILY, First dose on Tue04/13/21 at 2100, Until Discontinued, Routine Given 04/16/2021 10:00 AM EST 5 mLs Given 04/15/2021 9:02 PM EST 5 mLs Given 04/15/2021 8:13 AM EST 5 mLs sodium chloride 0.9 % (flush) (BD PosiFlush Normal Saline 0.9) flush 5 mL 5 mL, Intravenous, 2 TIMES DAILY, First dose on Tue04/13/21 at 2100, Until Discontinued, Routine Given 04/16/2021 10:00 AM EST 5 mLs Given 04/15/2021 9:02 PM EST 5 mLs Given 04/15/2021 8:13 AM EST 5 mLs thiamine (B-1) 500 mg in sodium chloride 0.9% 55 mL 500 mg, Intravenous, DAILY, First dose on Tue04/13/21 at 1845, Until Discontinued, Administer over 30 Minutes, Doses of 100 mg are to be administered as IV push over 5 minutes. Doses of 200 mg or more should be mixed in 50 mL 0.9% Sodium Chloride and infused over 30 minutes. New Bag 04/16/2021 10:00 AM EST 500 mg 110 mL/hr New Bag 04/15/2021 8:11 AM EST 500 mg 110 mL/hr New Bag 04/14/2021 8:48 AM EST 500 mg 110 mL/hr documented in this encounter Active and Recently Administered Medications Times are shown in EST. Scheduled Medication Order 04/14/2021 04/15/2021 04/16/2021 atorvastatin (Lipitor) tablet 40 mg 40 mg, Oral, DAILY, First dose on Tue04/14/21 at 0900, Until Discontinued, Routine 0910 (Given - Provider: Mis Orozco RN) 0900 (Not Given - Provider: Sharmlia Ortega RN - Reason: NPO)1634 (AUG Hold - Provider: Admin Adt - Reason: Transfer to a Procedural area)1725 (AUG Unhold - Provider: Admin Adt) 1000 (Given - Provider: Gela Rich, DESTIN) buPROPion SR (Wellbutrin SR) tablet 150 mg 150 mg, Oral, 2 TIMES DAILY, First dose on Tue04/13/21 at 2100, Until Discontinued, DO NOT CRUSH OR OPEN, Routine 0845 (Given - Provider: Mis Orozco RN)2142 (Given - Provider: Basia Guerrero RN) 1102 (Given - Provider: Sharmila Ortega RN)1634 (AUG Hold - Provider: Admin Adt - Reason: Transfer to a Procedural area)1725 (AUG Unhold - Provider: Admin Adt)2101 (Given - Provider: Basia Guerrero RN) 1000 (Given - Provider: Gela Rich, DESTIN) cefTRIAXone (Rocephin) 1 g vial attach to sodium chloride 0.9% 50 mL Mini-Bag Plus 1 g, Intravenous, EVERY 24 HOURS, First dose on Tue04/13/21 at 1845, Until Discontinued, Administer over 30 Minutes, Indication for (Active or Suspected): GI/Intra-abdominal 1836 (New Bag - Provider: Mis Orozco, DESTIN)1906 (Stopped - Provider: Basia Guerrero, DESTIN) 1634 (AUG Hold - Provider: Admin Adt - Reason: Transfer to a Procedural area)1725 (AUG Unhold - Provider: Admin Adt)1828 (New Bag - Provider: Sharmila Ortega RN - Comment: interaction with LR(received in OR) reviewed with MD. Spivey to give.)1900 (Stopped - Provider: Basia Guerrero RN) folic acid (Folvite) tablet 1,000 mcg 1,000 mcg, Oral, DAILY, First dose on Tue04/13/21 at 1845, Until Discontinued, Routine 0845 (Given - Provider: Mis Orozco RN) 0900 (Not Given - Provider: Sharmila Ortega RN - Reason: NPO)1634 (AUG Hold - Provider: Admin Adt - Reason: Transfer to a Procedural area)172 (AUG Unhold - Provider: Admin Adt) 1000 (Given - Provider: Gela Rich RN) insulin lispro (HumaLOG;Admelog) (100 unit/mL) subcutaneous injection vial 1-5 Units(Linked Group 1) 1-5 Units, Subcutaneous, 3 TIMES DAILY BEFORE MEALS, First dose on Tue04/14/21 at 0730, Until Discontinued, CORRECTION BOLUS [1-4 Units] Sensitive Sliding Scale (BG in mg/dL): Correction factor 40 (1 unit of insulin is expected to drop the glucose 40 mg/dL) BG 160 - 200 Give 1 unit BG 201 - 240 Give 2 units BG 241 - 280 Give 3 units BG greater than 280, give 4 units and recheck BG in 2 hours. - If recheck BG is LESS than 280, give no insulin and resume schedule - If recheck BG is GREATER than 280, give 4 units and repeat BG in 2 hours (no more than 3 times) & call for new insulin orders. DO NOT hold if NPO, unless specifically directed to do so by written order. Per Blood Glucose Monitoring Policy, re-check a BG of > 240 mg/dL in 2 hours., Routine 0730 (Not Given - Provider: Mis Orozco RN - Reason: Per MD Order)1130 (Not Given - Provider: Mis Orozco RN - Reason: Per MD Order)1630 (Not Given - Provider: Mis Orozco RN - Reason: Per MD Order) 0730 (Not Given - Provider: Sharmila Ortega RN - Reason: Order parameters not met)1130 (Not Given - Provider: Sharmila Ortega RN - Reason: Order parameters not met)1630 (Not Given - Provider: Sharmila Ortega RN - Reason: Order parameters not met)1634 (AUG Hold - Provider: Admin Adt - Reason: Transfer to a Procedural area)1725 (AUG Unhold - Provider: Admin Adt) 0730 (Not Given - Provider: Basia Guerrero RN - Reason: Order parameters not met)1130 (Not Given - Provider: Gela Rich RN - Reason: Order parameters not met)1630 (Due - Provider: Admin Adt) metoprolol tartrate (Lopressor) tablet 12.5 mg 12.5 mg, Oral, 2 TIMES DAILY, First dose on Tue04/14/21 at 0900, Until Discontinued, Routine 0845 (Given - Provider: Mis Orozco RN)2142 (Given - Provider: Basia Guerrero RN) 0854 (Given - Provider: Sharmila Ortega RN)1634 (AUG Hold - Provider: Admin Adt - Reason: Transfer to a Procedural area)1725 (AUG Unhold - Provider: Admin Adt)2100 (Given - Provider: Basia Guerrero RN) 1000 (Given - Provider: Gela Rich RN) oxyCODONE-acetaminophen (Percocet) 5-325 mg per tablet 1 tablet (COMPLETED) 1 tablet, Oral, ONCE, 1 dose, On Brii 04/16/21 at 1230, Maximum dose of acetaminophen is 4000 mg from all sources in 24 hours., Routine 1224 (Given - Provider: Gela Rich RN) pantoprazole (Protonix) injection 40 mg 40 mg, Intravenous, 2 TIMES DAILY, First dose on Tue04/13/21 at 1845, Until Discontinued 0845 (Given - Provider: Mis Orozco RN)2143 (Given - Provider: Basia Guerrero RN) 0811 (Given - Provider: Sharmila Ortega RN)163 ([facility] Hold - Provider: Admin Adt - Reason: Transfer to a Procedural area)172 ([facility] Unhold - Provider: Admin Adt)2100 (Given - Provider: Basia Guerrero RN) 1000 (Given - Provider: Gela Rich, DESTIN) potassium chloride ER (K-Dur/Klor-Con) tablet 40 mEq (COMPLETED) 40 mEq, Oral, EVERY 4 HOURS, 2 doses, First dose on Tue04/15/21 at 1330, Last dose on Tue04/15/21 at 1730, 20 mEq tablet may be dissolved in water for administration, Routine 1327 (Given - Provider: Sharmila Ortega RN)163 ([facility] Hold - Provider: Admin Adt - Reason: Transfer to a Procedural area)172 ([facility] Unhold - Provider: Admin Adt)182 (Given - Provider: Sharmila Ortega RN) sodium chloride 0.9 % (flush) (BD PosiFlush Normal Saline 0.9) flush 5 mL 5 mL, Intravenous, 2 TIMES DAILY, First dose on Tue04/13/21 at 2100, Until Discontinued, Routine 0905 (Given - Provider: Mis Orozco RN)214 (Given - Provider: Basia Guerrero RN) 0813 (Given - Provider: Sharmila Ortega RN)163 ([facility] Hold - Provider: Admin Adt - Reason: Transfer to a Procedural area)172 ([facility] Unhold - Provider: Admin Adt)2101 (Given - Provider: Basia Guerrero RN) 1000 (Given - Provider: Gela Rich, DESTIN) sodium chloride 0.9 % (flush) (BD PosiFlush Normal Saline 0.9) flush 5 mL 5 mL, Intravenous, 2 TIMES DAILY, First dose on Tue04/13/21 at 2100, Until Discontinued, Routine 0905 (Given - Provider: Mis Orozco RN)214 (Given - Provider: Basia Guerrero RN) 08 (Given - Provider: Sharmila Ortega RN)163 ([facility] Hold - Provider: Admin Adt - Reason: Transfer to a Procedural area)172 ([facility] Unhold - Provider: Admin Adt)2102 (Given - Provider: Basia Guerrero, DESTIN) 1000 (Given - Provider: Gela Rich RN) sodium chloride 0.9% 500 mL IV bolus (COMPLETED) Intravenous, ONCE, 1 dose, On Tue04/14/21 at 1545 1501 (New Bag - Provider: Mis Orozco RN) thiamine (B-1) 500 mg in sodium chloride 0.9% 55 mL 500 mg, Intravenous, DAILY, First dose on Tue04/13/21 at 1845, Until Discontinued, Administer over 30 Minutes, Doses of 100 mg are to be administered as IV push over 5 minutes. Doses of 200 mg or more should be mixed in 50 mL 0.9% Sodium Chloride and infused over 30 minutes. 0848 (New Bag - Provider: Mis Orozco RN)0918 (Stopped - Provider: Mis Orozco RN) 0811 (New Bag - Provider: Sharmila Ortega, DESTIN)0841 (Stopped - Provider: Sharmila Ortega RN)1634 ([facility] Hold - Provider: Admin Adt - Reason: Transfer to a Procedural area)1725 ([facility] Unhold - Provider: Admin Adt) 1000 (New Bag - Provider: Gela Rich RN)1030 (Stopped - Provider: Gela Rich RN) Continuous Medication Order 04/14/2021 04/15/2021 04/16/2021 sodium chloride 0.45% infusion () 100 mL/hr, Intravenous, CONTINUOUS, Starting on Tue04/14/21 at 1230, Until Tue04/15/21 at 0029 1250 (New Bag - Provider: Mis Orozco RN)2155 (Hold - Provider: Basia Guerrero RN - Reason: See comment - Comment: duplicate order) sodium chloride 0.45% infusion () 100 mL/hr, Intravenous, CONTINUOUS, Starting on Tue04/14/21 at 1830, Until Tue04/15/21 at 0629 1836 (New Bag - Provider: Mis Orozco RN)215 (New Bag - Provider: Basia Guerrero RN) sodium chloride 0.45% infusion () 100 mL/hr, Intravenous, CONTINUOUS, Starting on Tue04/15/21 at 1100, Until Tue04/15/21 at 2259 1102 (New Bag - Provider: Sharmila Ortega RN)1634 (AUG Hold - Provider: Admin Adt - Reason: Transfer to a Procedural area)172 (AUG Unhold - Provider: Admin Adt)2108 (Stopped - Provider: Basia Guerrero RN) PRN Medication Order 04/14/2021 04/15/2021 04/16/2021 dextrose 10% infusion(Linked Group 2) 250 mL, at 1,000 mL/hr, Intravenous, EVERY 30 MIN PRN, Starting on Tue04/14/21 at 0004, Until Tue04/16/21 at 1907, For BG 50-70 mg/dL: Oral treatment preferred: If able to drink, give 120 mL Juice or Regular (not diet) soda OR If NPO, give 15 gram glucose 40% oral gel massaged into buccal mucosa OR if unconscious or uncooperative, give 25 gram (250 mL) Dextrose 10% IV over 15 minutes per protocol OR, if no IV access, 1 mg Glucagon IM. For BG less than 50 mg/dL: Oral treatment preferred: If able to drink, give 240 mL Juice or Regular (not diet) soda OR If NPO, give 30 gram glucose 40% oral gel massaged in buccal mucosa OR if unconscious or uncooperative, give 25 gram (250 mL) Dextrose 10% IV over 15 minutes per protocol OR, if no IV access, 1 mg Glucagon IM. Recheck BG in 30 minutes. May repeat juice/soda, gel, dextrose or glucagon once per episode. For persistent hypoglycemia, consider longer-acting treatment for the duration of the active insulin. 0843 (See Alternative - Provider: Mis Orozco RN)1552 (See Alternative - Provider: Mis Orozco RN) 1116 (See Alternative - Provider: Sharmila Ortega RN)1634 (AUG Hold - Provider: Admin Adt - Reason: Transfer to a Procedural area)172 (AUG Unhold - Provider: Admin Adt) glucagon (Glucagen) (1 mg/mL) injection solution 1 mg(Linked Group 2) 1 mg, Intramuscular, EVERY 30 MIN PRN, Starting on Tue04/14/21 at 0004, Until Tue04/16/21 at 1907, Low blood sugar, For BG 50-70 mg/dL: Oral treatment preferred: If able to drink, give 120 mL Juice or Regular (not diet) soda OR If NPO, give 15 gram glucose 40% oral gel massaged into buccal mucosa OR if unconscious or uncooperative, give 25 gram (250 mL) Dextrose 10% IV over 15 minutes per protocol OR, if no IV access, 1 mg Glucagon IM. For BG less than 50 mg/dL: Oral treatment preferred: If able to drink, give 240 mL Juice or Regular (not diet) soda OR If NPO, give 30 gram glucose 40% oral gel massaged in buccal mucosa OR if unconscious or uncooperative, give 25 gram (250 mL) Dextrose 10% IV over 15 minutes per protocol OR, if no IV access, 1 mg Glucagon IM. Recheck BG in 30 minutes. May repeat juice/soda, gel, dextrose or glucagon once per episode. For persistent hypoglycemia, consider longer-acting treatment for the duration of the active insulin., Routine 0843 (See Alternative - Provider: Mis Orozco, DESTIN)1552 (See Alternative - Provider: Mis Orozco RN) 1116 (See Alternative - Provider: Sharmila Ortega RN)1634 (MAR Hold - Provider: Admin Adt - Reason: Transfer to a Procedural area)1725 (MAR Unhold - Provider: Admin Adt) glucose (GLUTOSE) 40% oral geL(Linked Group 2) 15-30 g, Buccal, EVERY 30 MIN PRN, Starting on Tue04/14/21 at 0004, Until Tue04/16/21 at 1907, Low blood sugar, For BG 50-70 mg/dL: Oral treatment preferred: If able to drink, give 120 mL Juice or Regular (not diet) soda OR If NPO, give 15 gram glucose 40% oral gel massaged into buccal mucosa OR if unconscious or uncooperative, give 25 gram (250 mL) Dextrose 10% IV over 15 minutes per protocol OR, if no IV access, 1 mg Glucagon IM. For BG less than 50 mg/dL: Oral treatment preferred: If able to drink, give 240 mL Juice or Regular (not diet) soda OR If NPO, give 30 gram glucose 40% oral gel massaged in buccal mucosa OR if unconscious or uncooperative, give 25 gram (250 mL) Dextrose 10% IV over 15 minutes per protocol OR, if no IV access, 1 mg Glucagon IM. Recheck BG in 30 minutes. May repeat juice/soda, gel, dextrose or glucagon once per episode. For persistent hypoglycemia, consider longer-acting treatment for the duration of the active insulin. 1 tube contains 15 grams of glucose (net weight of tube = 37.5 grams., Routine 0843 (Given - Provider: Mis Orozco, RN)1552 (Given - Provider: Mis Orozco, RN) 1116 (Given - Provider: Sharmila Ortega, DESTIN)1634 ([facility] Hold - Provider: Admin Adt - Reason: Transfer to a Procedural area)1725 ([facility] Unhold - Provider: Admin Adt) ipratropium-albuteroL (Duoneb) 0.5 mg-3 mg(2.5 mg base)/3 mL nebulizer solution 3 mL 3 mL, Nebulization, EVERY 4 HOURS PRN, Starting on Tue04/13/21 at 1751, Until Brii 04/16/21 at 1907, Wheezing, Routine 1634 ([facility] Hold - Provider: Admin Adt - Reason: Transfer to a Procedural area)1725 ([facility] Unhold - Provider: Admin Adt) lidocaine (Xylocaine) 1% (10 mg/mL) injection 3 mg 3 mg (0.3 mL), Subcutaneous, ONCE PRN, 1 dose, Starting on Tue04/13/21 at 1751, Until Brii 04/16/21 at 1907, for discomfort with PIV insertion, Routine 1634 ([facility] Hold - Provider: Admin Adt - Reason: Transfer to a Procedural area)1725 ([facility] Unhold - Provider: Admin Adt) nitroGLYcerin (Nitrostat) disintegrating tablet 0.4 mg 0.4 mg, Sublingual, EVERY 5 MIN PRN, Starting on Tue04/13/21 at 1751, Until Brii 04/16/21 at 1907, Chest pain, SL nitroglycerin may be repeated every 5 minutes as needed up to 3 doses, Routine 1634 ([facility] Hold - Provider: Admin Adt - Reason: Transfer to a Procedural area)1725 ([facility] Unhold - Provider: Admin Adt) sodium chloride 0.9 % (flush) (BD PosiFlush Normal Saline 0.9) flush 5-20 mL 5-20 mL, Intravenous, EVERY 1 MIN PRN, Starting on Tue04/13/21 at 1751, Until Tue04/16/21 at 1907, flush, Flush pertains to all indwelling lines. Flush per protocol found in the job aid using the link provided on this medication record., Routine 1634 ([facility] Hold - Provider: Admin Adt - Reason: Transfer to a Procedural area)1725 ([facility] Unhold - Provider: Admin Adt) sodium chloride 0.9 % (flush) (BD PosiFlush Normal Saline 0.9) flush 5-20 mL 5-20 mL, Intravenous, EVERY 1 MIN PRN, Starting on Tue04/13/21 at 1751, Until Tue04/16/21 at 1907, flush, Flush pertains to all indwelling lines. Flush per protocol found in the job aid using the link provided on this medication record., Routine 1634 ([facility] Hold - Provider: Admin Adt - Reason: Transfer to a Procedural area)172 ([facility] Unhold - Provider: Admin Adt) Linked Groups Order Group 1: POCT Fingerstick Glucose (CANCELED) Routine, 4 TIMES DAILY BEFORE MEALS & AT BEDTIME, First occurrence on Tue04/14/21 at 0700, Until Specified, Consider choosing FOUR TIMES A DAY BEFORE MEALS AND AT BEDTIME as frequency for: Patients who have good hypoglycemia awareness: -Patients who are eating meals during the day and sleeping at night -Patient who are otherwise stable And insulin lispro (HumaLOG;Admelog) (100 unit/mL) subcutaneous injection vial 1-5 UnitsJump to med 1-5 Units, Subcutaneous, 3 TIMES DAILY BEFORE MEALS, First dose on Tue04/14/21 at 0730, Until Discontinued, CORRECTION BOLUS [1-4 Units] Sensitive Sliding Scale (BG in mg/dL): Correction factor 40 (1 unit of insulin is expected to drop the glucose 40 mg/dL) BG 160 - 200 Give 1 unit BG 201 - 240 Give 2 units BG 241 - 280 Give 3 units BG greater than 280, give 4 units and recheck BG in 2 hours. - If recheck BG is LESS than 280, give no insulin and resume schedule - If recheck BG is GREATER than 280, give 4 units and repeat BG in 2 hours (no more than 3 times) & call for new insulin orders. DO NOT hold if NPO, unless specifically directed to do so by written order. Per Blood Glucose Monitoring Policy, re-check a BG of > 240 mg/dL in 2 hours., Routine Group 2: glucose (GLUTOSE) 40% oral geLJump to med 15-30 g, Buccal, EVERY 30 MIN PRN, Starting on Tue04/14/21 at 0004, Until Tue04/16/21 at 1907, Low blood sugar, For BG 50-70 mg/dL: Oral treatment preferred: If able to drink, give 120 mL Juice or Regular (not diet) soda OR If NPO, give 15 gram glucose 40% oral gel massaged into buccal mucosa OR if unconscious or uncooperative, give 25 gram (250 mL) Dextrose 10% IV over 15 minutes per protocol OR, if no IV access, 1 mg Glucagon IM. For BG less than 50 mg/dL: Oral treatment preferred: If able to drink, give 240 mL Juice or Regular (not diet) soda OR If NPO, give 30 gram glucose 40% oral gel massaged in buccal mucosa OR if unconscious or uncooperative, give 25 gram (250 mL) Dextrose 10% IV over 15 minutes per protocol OR, if no IV access, 1 mg Glucagon IM. Recheck BG in 30 minutes. May repeat juice/soda, gel, dextrose or glucagon once per episode. For persistent hypoglycemia, consider longer-acting treatment for the duration of the active insulin. 1 tube contains 15 grams of glucose (net weight of tube = 37.5 grams., Routine Or dextrose 10% infusionJump to med 250 mL, at 1,000 mL/hr, Intravenous, EVERY 30 MIN PRN, Starting on Tue04/14/21 at 0004, Until Tue04/16/21 at 1907, For BG 50-70 mg/dL: Oral treatment preferred: If able to drink, give 120 mL Juice or Regular (not diet) soda OR If NPO, give 15 gram glucose 40% oral gel massaged into buccal mucosa OR if unconscious or uncooperative, give 25 gram (250 mL) Dextrose 10% IV over 15 minutes per protocol OR, if no IV access, 1 mg Glucagon IM. For BG less than 50 mg/dL: Oral treatment preferred: If able to drink, give 240 mL Juice or Regular (not diet) soda OR If NPO, give 30 gram glucose 40% oral gel massaged in buccal mucosa OR if unconscious or uncooperative, give 25 gram (250 mL) Dextrose 10% IV over 15 minutes per protocol OR, if no IV access, 1 mg Glucagon IM. Recheck BG in 30 minutes. May repeat juice/soda, gel, dextrose or glucagon once per episode. For persistent hypoglycemia, consider longer-acting treatment for the duration of the active insulin. Or glucagon (Glucagen) (1 mg/mL) injection solution 1 mgJump to med 1 mg, Intramuscular, EVERY 30 MIN PRN, Starting on Tue04/14/21 at 0004, Until Tue04/16/21 at 1907, Low blood sugar, For BG 50-70 mg/dL: Oral treatment preferred: If able to drink, give 120 mL Juice or Regular (not diet) soda OR If NPO, give 15 gram glucose 40% oral gel massaged into buccal mucosa OR if unconscious or uncooperative, give 25 gram (250 mL) Dextrose 10% IV over 15 minutes per protocol OR, if no IV access, 1 mg Glucagon IM. For BG less than 50 mg/dL: Oral treatment preferred: If able to drink, give 240 mL Juice or Regular (not diet) soda OR If NPO, give 30 gram glucose 40% oral gel massaged in buccal mucosa OR if unconscious or uncooperative, give 25 gram (250 mL) Dextrose 10% IV over 15 minutes per protocol OR, if no IV access, 1 mg Glucagon IM. Recheck BG in 30 minutes. May repeat juice/soda, gel, dextrose or glucagon once per episode. For persistent hypoglycemia, consider longer-acting treatment for the duration of the active insulin., Routine documented in this encounter Additional Health Concerns Infection Onset Date Last Indicated Resolved Time Rule Out COVID-19 04/13/2021 04/13/2021 04/13/2021 8:19 PM EST COVID-19 Comment:Date of symptom onset: unknown Date of positive test: 04/10/21 Estimated date patient will be eligible for precaution removal: 04/21/21 Please contact [facility] at [email or web address] before discontinuing Airborne and Contact Precautions. 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
--- OUTSIDE RECORDS SUMMARY | 2024-04-02 21:45 | XMS_ITS | Encounter Summary ---
Author Organization [facility] [place] [address] Care Team Providers [employer] Care Manager Name Role Phone Silvina Perdue MD Primary Care Provider [phone] Reason for Visit * Auth/Cert Specialty Diagnoses / Procedures Referred By Viridiana t Referred To Contact Diagnoses GIB (gastrointestinal bleeding) GI bleed Referral ID Status Reason Start Date Expiration Date Visits Re quested Visits Authorized [id number] 1 1 Encounter Details Date Type Department Care Team (Latest Contact Info) Description 04/13/2021 5:09 PM EST - 04/16/2021 5:06 PM EST Hospital Encounter [facility] [address] [place] [address] [place] [address] [place] [address] [place] [address] depression; History of ASCVD; Gastrointestinal hemorrhage, unspecified gastrointestinal hemorrhage type Discharge Disposition: Home Social History Tobacco [...] Nain Kang Patient Age: 70 y.o. Language: Guatemalan Race: White Ethnicity: Not nor Admit date: [...] please contact your inpatient physician through the [facility] S3B Multi Sensor Operator . Issues afterhours and on weekends will [...] DM with neuropathic pains, ??got admitted to [facility] on 04/11 with altered mental status. Of note, patient was COVID PCR positive on 04/10, he was discharged home as maintaining saturation on room air,??he was brought back due to melena as notedby roommate and he was admitted to OSH.??While at [facility], patient has had BP hovering around [...] who have questions please contact the health youth care professional that requested your imaging first. Electronically signed by: Keli Mercedes MD, [facility] ([phone]), at 04/13/2021 11:04 PM Request For 2nd Read CT Chest Abdomen [...] who have questions please contact the health youth care professional that requested your imaging first. Electronically signed by: Shaun De Los Santos MD, [facility] ([phone]), at 04/14/2021 9:34 AM Microbiology Results (Last 30 days) Procedure Component Value Units Date/Time Blood culture [[id number]] Collected: 04/13/212006 Lab Status: Preliminary result Specimen: Blood from Forearm, Left Updated: 04/15/212300 Blood Culture No growth at 2 days. Blood culture [[id number]] Collected: 04/13/212006 Lab Status: Preliminary result Specimen: Blood from Hand, Right Updated: 04/15/212300 Blood Culture No growth at 2 days. COVID-19 PCR [[id number]] (Abnormal) Collected: 04/13/211750 Lab Status: Final result [...] using the Simplexa COVID-19 Direct Assay by B[employer] as authorized by the FDA issued Emergency [...] Department of Pathology and Laboratory Medicine at [facility], certified under the Clinical Laboratory [...] fact sheets at the following FDA website: https://www.fda.gov/medical-devices/ikrilzcgbki-wvcrkrq-1609-xjymx-37-cfamwzhsy- tdd-tvtzfrulpujwws-mebjkbb-devices/omtfx-nmtdsjsuchc-lmwl SARS-CoV-2 Source [employer] Swab Pending Studies and Lab Data: None [...] HYDROcodone-acetaminophen 10-325 mg Tab Commonly known as: [place] Take 1 tablet by mouth 2 times [...] Your Primary Care Provider: Silvina Perdue MD [phone] For questions regarding this document or issues relating to this hospitalization on the Medical Service, please contact your inpatient physician through the [facility] S3B Multi Sensor Operator . Issues afterhours and on weekends will [...] Your Primary Care Provider: Silvina Perdue MD [phone] For questions regarding this document or issues relating to this hospitalization on the Medical Service, please contact your inpatient physician through the [facility] S3B Multi Sensor Operator . Issues afterhours and on weekends will [...] as of this encounter Progress Notes * Lily Mendoza - 04/16/2021 4:08 PM ESTSummary: Transportation Confirmed Discharge Transportation confirmed: Spoke with [place] from [employer] who confirmed a catering truck driver provided by transportation managerJeffrey will arrive to pick patient up at discharge from the [facility] at 16:30 en route to [address] [place] [address]. [facility] [id number]. Bedside nurse notified via [facility] chat. Pt has medicaid, but medicaid transportation [...] spent >30 minutes (Day of Discharge Code 98889) involved in the final examination of the [...] DM with neuropathic pains, ??got admitted to [facility] on 04/11 with altered mental status; also [...] METHOD performed by Zain Sifuentes MD at [facility] ENDOSCOPY ??? PRO UPPER GI ENDOSCOPY, DIAGNOSTIC N/A 09/13/2017 EGD, UPPER GI ENDOSCOPY performed by Marixa Vidales MD at [facility] ENDOSCOPY ??? PRO UPPER GI ENDOSCOPY, DIAGNOSTIC N/A 04/15/2021 EGD, UPPER GI ENDOSCOPY performed by Kelvin Smith MD at [facility] MAIN OR Social History: Patient reports he lives with his friend Lyudmila in a one-level home with 4 ARACELIS (railing present). At his baseline, patient is independent with his mobility, ADL tasks, and day-to-day activities. 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 Lyudmila is retired and available to assist patient with providing food while patient quarantines (they each have their separate room). Patient's bathroom includes a walk-in shower with a seat. He reports he enjoys spending time with his [facility]. Precautions/Special Considerations: Contact and Airborne (COVID-19), fall [...] in this evaluation. Time IN / OUT: 5052-2281 Shira Giraldo DPT Board-Certified Clinical Specialist in Geriatric Physical Therapy Board-Certified Clinical Specialist in Neurologic Physical Therapy Inpatient Rehabilitation Pager #[phone] * Treva Powell OT - 04/16/2021 10:01 AM EST Occupational [...] DM with neuropathic pains, ??got admitted to [facility] on 04/11 with altered mental status; also [...] METHOD performed by Zain Sifuentes MD at [facility] ENDOSCOPY ??? PRO UPPER GI ENDOSCOPY, DIAGNOSTIC N/A 09/13/2017 EGD, UPPER GI ENDOSCOPY performed by Marixa Vidales MD at [facility] ENDOSCOPY ??? PRO UPPER GI ENDOSCOPY, DIAGNOSTIC N/A 04/15/2021 EGD, UPPER GI ENDOSCOPY performed by Kelvin Smith MD at [facility] MAIN OR Social History: Patient reports he lives with his friend Lyudmila in a one-level home with 4 ARACELIS (railing present). At his baseline, patient is independent with his mobility, ADL tasks, and day-to-day activities. 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 Lyudmila is retired and available to assist patient with providing food while patient quarantines (they each have their separate room). Patient's bathroom includes a walk-in shower with a seat. He reports he enjoys spending time with his [employer]. ?? Precautions/Special Considerations: Contact and Airborne (COVID-19), [...] has been seen for occupational therapy evaluation. Nain Shermaner presents with the following performance skill deficits [...] and measurable assessment of functional outcome. Pager: [phone] TREVA POWELL OT 04/16/2021 Occupational Therapy Rehabilitation [...] 3 wbc, hgb, hct plt Recent Labs 04/15/2193604/14/21 1430 04/13/212006 WBC 5.6 5.8 6.7 HGB 10.5* 10.7* 10.6* HCT 31.4* 30.1* 31.4* PLATELET 162 137* 116* Last 3 Lytes Recent Labs 04/15/21 0937 04/14/21 1430 04/13/212006 NA 135 135 137 K 3.0* 3.2* 3.6 CL 106 108* 110* CO2 18* 20* 21* BUN 11 14 18 CREATININE 0.55* 0.59* 0.65* Last 3 LFTs Recent Labs 04/15/2137 04/14/21 1430 04/13/212006 AST 21 18 19 [...] who have questions please contact the health youth care professional that requested your imaging first. Electronically signed by: Keli Mercedes MD, [facility] ([phone]), at 04/13/2021 11:04 PM Request For 2nd Read CT Chest Abdomen [...] who have questions please contact the health youth care professional that requested your imaging first. Electronically signed by: Shaun De Los Santos MD, [facility] ([phone]), at 04/14/2021 9:34 AM OTHER Studies: Assessment: 70 year old male known to have h/o esophageal cancer s/p distal esophagectomy/subtotal gastrectomy with EG anastomosis (?pre-2001, no records available), UGIB (2017, unclear source), EtOH use disorder (unclear last drink without a known liver hx), A Fib not on anticoagulation, CAD s/p CABG (on ASA), COPD (not on O2), h/o chronic pancreatitis, DM with neuropathic pains, got admitted to [facility] on 04/11 with altered mental status. Of note, patient was COVID PCR positive on 04/10, he was discharged home as maintaining saturation on room air, he was brought back due to melena as noted by roommate and he was admitted to OSH. While at [facility], patient has had BP hovering around [...] Goals of Care: Team Pager( Coverage 27/12): #[phone] PCP: Silvina Perdue MD [phone] Attestation: IPI Certification I certify that I am a D-H credentialed attending provider with admitting privileges and that the patient meets or has met medical necessity to require an inpatient IPI level of care meeting a minimumof two midnights or is on the [facility] inpatient only procedure list (status C) due [...] resident's interpretation and agree with the findings, Keil Mercedes MD at 04/13/2021 11:04 PM Thank you for letting us participate in the care of this patient. If you are a health care provider and have any questions regarding this report, please contact the number below. For patients who have questions please contact the health youth care professional that requested your imaging first. Electronically signed by: Keli Mercedes MD, [facility] ([phone]), at 04/13/2021 11:04 PM Request For 2nd Read CT Chest Abdomen [...] who have questions please contact the health youth care professional that requested your imaging first. Electronically signed by: Shaun De Los Santos MD, [facility] ([phone]), at 04/14/2021 9:34 AM OTHER Studies: Assessment: 70 year old male known to have h/o esophageal cancer s/p distal esophagectomy/subtotal gastrectomy with EG anastomosis (?pre-2001, no records available), UGIB (2017, unclear source), EtOH use disorder (unclear last drink without a known liver hx), A Fib not on anticoagulation, CAD s/p CABG (on ASA), COPD (not on O2), h/o chronic pancreatitis, DM with neuropathic pains, got admitted to [facility] on 04/11 with altered mental status. Of note, patient was COVID PCR positive on 04/10, he was discharged home as maintaining saturation on room air, he was brought back due to melena as noted by roommate and he was admitted to OSH. While at [facility], patient has had BP hovering around [...] Goals of Care: Team Pager( Coverage 27/12): #[phone] PCP: Silvina Perdue MD [phone] Attestation: IPI Certification I certify that I am a D-H credentialed attending provider with admitting privileges and that the patient meets or has met medical necessity to require an inpatient IPI level of care meeting a minimumof two midnights or is on the [facility] inpatient only procedure list (status C) due [...] neurologic complication, without long-term current use of edfidenQ02.49 ??? 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 Male presents to [facility] with as transfer from OSH for GIB. [...] DM with neuropathic pains, got admitted to [facility] on 04/11 with altered mental status. Of note, patient was COVID PCR positive on 04/10, he was discharged home as maintaining saturation on room air, he was brought back due to melena as noted byroommate and he was admitted to OSH. While at [facility], patient has had BP hovering around [...] METHOD performed by Zain Sifuentes MD at [facility] ENDOSCOPY ??? PRO UPPER GI ENDOSCOPY, DIAGNOSTIC N/A 09/13/2017 EGD, UPPER GI ENDOSCOPY performed by Marixa Vidales MD at [facility] ENDOSCOPY Prior To Admission Medications: Medications Prior [...] PCR Detected (A) Not Detected SARS-CoV-2 Source [employer] Swab Prothrombin Time Result Value Ref Range [...] Value Ref Range T&S only valid at [facility] Hosp Microbiology: Blood Cultures: being collected Radiology: [...] who have questions please contact the health youth care professional that requested your imaging first. Electronically signed by: Keli Mercedes MD, [facility] ([phone]), at 04/13/2021 11:04 PM Other Studies: EGD (09/2017): Findings: The examined [...] potentially with a partial gastrectomy. Hematin (altered blood/cqbmqw-qdxyae-pbwv material) was found in the entire duodenum. Lavage of thearea was performed using a large amount, resulting in incomplete clearance with fair visualization. Impression: ?- Esophagogastric landmarks??identified. - Red blood in the distal esophagus. - LA Grade A esophagitis. - Hematin (altered??blood/pvkiko-dtacni-nxwm material) in ??the gastric fundus. - Blood [...] DM with neuropathic pains, got admitted to [facility] on 04/11 with altered mental status. Of note, patient was COVID PCR positive on 04/10, he was discharged home as maintaining saturation on room air, he was brought back due to melena as noted byroommate and he was admitted to OSH. While at [facility], patient has had BP hovering around [...] Patient alert, disoriented to time. VSS on . Denies SOB. NPO for EGD today. Continuous [...] EST DH Operative Note Patient Name: Nain D Jorge Luis : [id number] MR#: [id number] Case Date: 04/15/2021 Surgeon: Surgeon(s) and Role: [...] FSBS low, juice given. Meds given per AUG. NPO @ 0000. No acute eventswill ctm/notify [...] COVID test: Lab Results Component Value Date [id number] Detected (A) 04/13/2021 Past medical History: Past [...] sister named Yuriy Clemons who lives near [facility], patient unable to provide phone number or address.) If AD's have not been completed [place] would be surrogate decision maker per [place] decision[place] law. (Only good for 180 days) Any patient receiving care at [facility] must abide by [place] law. The hierarchy for surrogate decision making [...] (i) The agent with financial power of document review attorney or a conservator appointed in accordance with RSA 464-A. (j) The guardian of the patient???s estate. Current Coping/Education/Information Needs: Coping well with hospital stay and feels updated on issues and plan. Current Functional Ability: unable to assess Functional Status Prior to Admission: Independent,Patient Drives Self Home Environment: Others in the home: friend(s) (Lyudmila Bellamy lives with patient). Current LivingArrangements: home/apartment/condo. Accessibility Concerns:4 steps with railing to enter, one level, 2 bedrooms. Current DME: cane - straight,walker - rolling,other (see comments) (Patient has a cane and walker at home which he does not use.) Home Address confirmed as: [address] [address] Social & Family Supports: Extended Emergency Contact Information Primary Emergency Contact: Lyudmila Bellamy Address: [address] [place] [address] [address] [place] [address] [facility] Relation: Friend Secondary Emergency Contact: YURIY CLEMONS [...] MEDICAID [place] Prescription Coverage: Yes Preferred Pharmacy: [id number] - [place], [place] - [address] [place] [address] AT [facility] [address] [place] [id number] Status: Patient is a : No Primary Care Provider: Silvina Perdue MD [phone] Patient/Caregiver Goals of Treatment: Patient would like [...] and COPD who was transferred overnight from [facility] for hematemesis and melenawith a 4 point hemoglobin drop. He was in his usual state of health until 04/11 when he was admitted to [facility] altered after a roommate witnessed episodes of melena and hematemesis. At [facility] course was notable for soft Bps, 90s/60s, and hemoglobin drop from 13.6 on admission to 8.9 on 04/14 despite 2 U pRBC. While at [facility] he was also i ncidentally noted to be COVID positive. CT A/P was done there on 04/10 which was unremarkable; no changes concerning for chronic liver disease. He reportedly continued to have melena following admission but no hematemesis was seen. On arrival to [facility] he was afebrile and HDS with BP [...] ??? sodium chloride 0.45% 100 mL/hr (04/13/21 1857) glucose 40% oral geL OR dextrose 10% [...] file. Vitals: 04/13/21 1722 04/13/21 1730 04/13/21 2147 BP: 115/73 119/72 BP Location (NBP): Right [...] ASA), and COPD whowas transferred overnight from [facility] for hematemesis and melena with a 4 [...] M.D. Fellow in Gastroenterology and Hepatology Pager #[phone] 04/14/2021 Associated attestation - Kelvin Smith MD [...] on RA. Meds given per AUG. Pt appears to be resting comfortably between [...] 9:09 PM EST Upper GI Endoscopy, Diagnostic ([id number]) 04/15/2021 4:34 PM EST hematemesis and melena, [...] depression History of ASCVD RAPID COVID-19 PCR ([facility]) Routine 04/13/2021 5:51 PM EST documented in this encounter Results * POCT Glucose (04/16/2021 12:29 PM EST) Glucose, POC 111 65 - 199 mg/dL [facility] Comment: Supplemental ranges: <140 mg/dL before meals <180 mg/dL all other times of the day Blood 04/16/2021 12:2 9 PM EST 04/16/2021 12:29 PM EST Shaunna Nichole MD POINT OF CARE TEST ORDERABLES Performing Organization Address City/State/[facility] Co de Phone Number [facility] [place] [address] * (ABNORMAL) Comprehensive metabolic panel (non-fasting) (04/16/2021 12:08 PM EST) Glucose 104 65 - 199 mg/dL [facility] Comment:Diabetes: >=200 mg/d L plus symptoms Blood Urea Nitrogen 10 10 - 20 mg/dL [facility] Creatinine 0.66(L) 0.80 - 1.50 mg/dL [facility] Sodium 136 135 - 145 mmol/L [facility] Potassium 3.6 3.5 - 5.0 mmol/L [facility] Comment: Please note: ??Patients with WBC >100,000 may have falsely elevated Potassium levels. ??For accurate Potassium quantification in these patients send serum separator tube (gold top) for subsequent determinations. ??Contact the Clinical Chemistry Laboratory if there are any questions. Chloride 108(H) 98 - 107 mmol/L [facility] Carbon Dioxide 19(L) 22 - 31 mmol/L [facility] Anion Gap 9 5 - 15 mmol/L [facility] Calcium 8.3(L) 8.5 - 10.5 mg/dL [facility] Protein, Total 5.7(L) 6.1 - 8.0 g/dL [facility] Albumin 2.8(L) 3.2 - 5.2 g/dL [facility] Aspartate Aminotransferase 18 0 - 39 unit/L [facility] Alanine Aminotransferase 11 0 - 55 unit/L [facility] Alkaline Phosphatase 125 40 - 130 unit/L [facility] Bilirubin, Total 0.8 0.2 - 1.3 mg/dL [facility] Est Glomerular Filtration Rate 98 >=60 mL/min/1. 73 m?? [facility] Comment: This patient? s estimated glomerular [...] Lab Sandy Mak MD CHEMISTRY OR DERABLES [facility] [place] [address] * POCT Glucose (04/16/2021 7:01 AM EST) Glucose, POC 80 65 - 199 mg/dL [facility] Comment: Supplemental ranges: <140 mg/dL before meals <180 mg/dL all other times of the day Blood 04/16/2021 7:01 AM EST 04/16/2021 7:01 AM EST Shaunna Nichole MD POINT OF CARE TEST ORDERABLES Performing Organization Address City/[facility]/ZIP Co de Phone Number [facility] [place] [address] * POCT Glucose (04/15/2021 9:09 PM EST) Glucose, POC 174 65 - 199 mg/dL [facility] Comment: Supplemental ranges: <140 mg/dL before meals <180 mg/dL all other times of the day Blood 04/15/2021 9:09 PM EST 04/15/2021 9:09 PM EST Shaunna Nichole MD POINT OF CARE TEST ORDERABLES Performing Organization Address [facility] Co de Phone Number [facility] [place] [address] * Urinalysis Microscopic Exam (04/15/2021 10:30 AM EST) RBC, Urine 2 0 - 3 /HPF [facility] WBC, Urine 1 0 - 3 /HPF [facility] Clean Catch Urine 04/15/2021 10:30 AM EST 04/15/2021 11:52 AM EST Narrative Resulting Agency Comment Spec In Lab Shaunna Nichole MD URINE ORDERABLES Performing Organization Address City/[facility] Co de Phone Number [facility] [place] [address] * (ABNORMAL) Urinalysis with reflex Culture (04/15/2021 10:30 AM EST) Glucose, Urine Dipstick Negative Negative mg/dL [facility] Protein, Urine Dipstick Negative Negative mg/dL [facility] Bilirubin, Urine Dipstick Negative Negative mg/dL [facility] Comment: Clinical correlation required for positive Urine Bilirubin results as false positive may occur with some drugs and drug related products. If a false positive is suspected a serum total bilirubin should be considered if clinically indicated. Urobilinogen, Urine Dipstick Normal Normal mg/dL [facility] pH, Urn (dipstick) 5.5 5.0 - 8.0 [facility] Blood, Urine Dipstick Small(A) Negative mg/dL [facility] Ketone, Urine Dipstick Trace(A) Negative mg/dL [facility] Nitrite, Urine Dipstick Negative Negative [facility] Leukocytes, Urine Dipstick Negative Negative [facility] Appearance, Urine Dipstick Clear Clear [facility] Specific [place] Urine Automated 1.016 1.005 - 1.030 [facility] Color, Urine Dipstick Yellow Yellow [facility] Reflex to Culture No [facility] Clean Catch Urine 04/15/2021 10:30 AM EST 04/15/2021 11:52 AM EST Narrative Resulting Agency Comment Spec In Lab Shaunna Nichole MD URINE ORDERABLES Performing Organization Address City/State/[facility] Co de Phone Number [facility] [place] [address] * (ABNORMAL) Differential, Automated (04/15/2021 9:37 AM EST) Neutrophil % 82.8 % [facility] Neutrophil Absolute 4.64 1.70 - 6.10 x10(3)/mc L [facility] Lymph % 10.5 % [facility] Lymphocytes Abs 0.6(L) 0.9 - 3.2 x10(3)/mc L [facility] Monocyte % 5.3 % [facility] Monocyte Abs 0.3 0.3 - 0.9 x10(3)/mc L [facility] Eos % 0.5 % [facility] Eosinophils Abs 0.0 0.0 - 0.4 x10(3)/mc L [facility] Basophil % 0.2 % [facility] Baso Absolute 0.0 0.0 - 0.1 x10(3)/ L [facility] Immature Gran % 0.70 % [facility] Comment: Immature granulocytes(IG's)percentage and absolute count will include metamyelocytes, myelocytes, and promyelocytes. Blood smears from CBCs yielding IG's will be scanned manually for concordance. If this scan disagrees with the automated IG or if promyelocytes are noted, a manual differential will be performed. Immature Gran Absolute 0.04 0.00 - 0.04 x10(3)/[facility] Blood 04/15/2021 9:37 AM EST 04/15/2021 10:22 AM EST Narrative Resulting Agency Comment Spec In Lab Shaunna Nichole MD HEMATOLOGY ORDERAB LES [facility] [place] [address] * (ABNORMAL) Hemogram (04/15/2021 9:37 AM EST) White Blood Cell 5.6 4.0 - 9.5 x10(3)/[facility] Red Blood Cell 3.33(L) 4.58 - 5.54 x10(6)/ L [facility] Hemoglobin 10.5(L) 13.7 - 16.5 g/dL [facility] Hematocrit 31.4(L) 40.5 - 48.5 % [facility] Mean Cell Volume 94.3(H) 82.9 - 93.1 fL [facility] Mean Cell Hemoglobin 31.5 27.5 - 32.1 pg [facility] Mean Cell Hemoglobin Concentration 33.4 32.0 - 35.7 g/dL [facility] Platelet 162 145 - 357 x10(3)/[facility] RDW Standard Deviation 55.5(H) 36.0 - 45.0 fL [facility] RDW coefficient of variation 17.1(H) 11.4 - 13.8 % [facility] Mean Platelet Volume 10.2 7.6 - 12.9 fL [facility] NRBC% auto 0.0 % [facility] NRBC Absolute 0.000 0.000 - 0.000 x10(3)/mc L [facility] Blood 04/15/2021 9:37 AM EST 04/15/2021 10:22 AM EST Narrative Resulting Agency Comment Spec In Lab Shaunna Nichole MD HEMATOLOGY ORDERAB LES [facility] [place] [address] * (ABNORMAL) Comprehensive metabolic panel (non-fasting) (04/15/2021 9:37 AM EST) Glucose 60(L) 65 - 199 mg/dL [facility] Comment:Diabetes: >=200 mg/d L plus symptoms Blood Urea Nitrogen 11 10 - 20 mg/dL [facility] Creatinine 0.55(L) 0.80 - 1.50 mg/dL [facility] Sodium 135 135 - 145 mmol/L [facility] Potassium 3.0(Criti enmanuel) 3.5 - 5.0 mmol/L [facility] Comment: Called by: TAI, Read back by: Eloise Coy, Date/Time: 04/15/21 12:16. Please note: ??Patients with WBC >100,000 may have falsely elevated Potassium levels. ??For accurate Potassium quantification in these patients send serum separator tube (gold top) for subsequent determinations. ??Contact the Clinical Chemistry Laboratory if there are any questions. Chloride 106 98 - 107 mmol/L [facility] Carbon Dioxide 18(L) 22 - 31 mmol/L [facility] Anion Gap 11 5 - 15 mmol/L [facility] Calcium 7.8(L) 8.5 - 10.5 mg/dL [facility] Protein, Total 4.9(L) 6.1 - 8.0 g/dL [facility] Albumin 2.3(L) 3.2 - 5.2 g/dL [facility] Aspartate Aminotransferase 21 0 - 39 unit/L [facility] Alanine Aminotransferase 10 0 - 55 unit/L [facility] Alkaline Phosphatase 106 40 - 130 unit/L [facility] Bilirubin, Total 0.8 0.2 - 1.3 mg/dL [facility] Est Glomerular Filtration Rate 106 >=60 mL/min/1. 73 m?? [facility] Comment: This patient? s estimated glomerular [...] MD CHEMISTRY OR DERABLES Performing Organization Address City/State/[facility] Co de Phone Number [facility] [place] [address] * (ABNORMAL) Differential, Automated (04/14/2021 2:30 PM EST) Neutrophil % 84.3 % [facility] Neutrophil Absolute 4.88 1.70 - 6.10 x10(3)/mc L [facility] Lymph % 10.2 % [facility] Lymphocytes Abs 0.6(L) 0.9 - 3.2 x10(3)/mc L [facility] Monocyte % 4.5 % [facility] Monocyte Abs 0.3 0.3 - 0.9 x10(3)/[facility] Eos % 0.3 % [facility] Eosinophils Abs 0.0 0.0 - 0.4 x10(3)/[facility] Basophil % 0.2 % [facility] Baso Absolute 0.0 0.0 - 0.1 x10(3)/[facility] Immature Gran % 0.50 % [facility] Comment: Immature granulocytes(IG's)percentage and absolute count [...] Lab Shaunna Nichole MD HEMATOLOGY ORDERAB LES [facility] [place] [address] * (ABNORMAL) Hemogram (04/14/2021 2:30 PM EST) White Blood Cell 5.8 4.0 - 9.5 x10(3)/[facility] Red Blood Cell 3.32(L) 4.58 - 5.54 x10(6)/[facility] Hemoglobin 10.7(L) 13.7 - 16.5 g/dL [facility] Hematocrit 30.1(L) 40.5 - 48.5 % [facility] Mean Cell Volume 90.7 82.9 - 93.1 fL [facility] Mean Cell Hemoglobin 32.2(H) 27.5 - 32.1 pg [facility] Mean Cell Hemoglobin Concentration 35.5 32.0 - 35.7 g/dL [facility] Platelet 137(L) 145 - 357 x10(3)/mc L [facility] RDW Standard Deviation 55.0(H) 36.0 - 45.0 fL [facility] RDW coefficient of variation 17.1(H) 11.4 - 13.8 % [facility] Mean Platelet Volume 10.1 7.6 - 12.9 fL [facility] NRBC% auto 0.0 % [facility] NRBC Absolute 0.000 0.000 - 0.000 x10(3)/mc L [facility] Blood Venous Draw / Unknown 04/14/2021 2:30 PM EST 04/14/2021 3:28 PM EST Narrative Resulting Agency Comment Spec In Lab Shaunna Nichole MD HEMATOLOGY ORDERAB LES [facility] [place] [address] * (ABNORMAL) CMP w/fasting Glucose (04/14/2021 2:30 PM EST) Glucose Fasting 58(L) 65 - 99 mg/dL [facility] Comment: ?Fasting* Glucose Interpretive Criteria Normal [...] of Diabetes Mellitus, Position Statement from the [place] [employer]. ??Diabetes Care, Volume 33, Supplement 1, Jun 2009 Blood Urea Nitrogen 14 10 - 20 mg/dL [facility] Creatinine 0.59(L) 0.80 - 1.50 mg/dL [facility] Sodium 135 135 - 145 mmol/L [facility] Potassium 3.2(L) 3.5 - 5.0 mmol/L [facility] Comment: Please note: ??Patients with WBC >100,000 may have falsely elevated Potassium levels. ??For accurate Potassium quantification in these patients send serum separator tube (gold top) for subsequent determinations. ??Contact the Clinical Chemistry Laboratory if there are any questions. Chloride 108(H) 98 - 107 mmol/L [facility] Carbon Dioxide 20(L) 22 - 31 mmol/L [facility] Anion Gap 7 5 - 15 mmol/L [facility] Calcium 7.8(L) 8.5 - 10.5 mg/dL [facility] Protein, Total 4.7(L) 6.1 - 8.0 g/dL [facility] Albumin 2.2(L) 3.2 - 5.2 g/dL [facility] Aspartate Aminotransferase 18 0 - 39 unit/L [facility] Alanine Aminotransferase 8 0 - 55 unit/L [facility] Alkaline Phosphatase 91 40 - 130 unit/L [facility] Bilirubin, Total 0.9 0.2 - 1.3 mg/dL [facility] Est Glomerular Filtration Rate 103 >=60 mL/min/1. 73 m?? [facility] Comment: This patient? s estimated glomerular [...] MD CHEMISTRY OR DERABLES Performing Organization Address City/[facility]/ZIP Co de Phone Number [facility] [place] [address] * Triglyceride (04/14/2021 2:30 PM EST) Triglyceride 50 mg/dL [facility] Comment: Average Risk/Lower Risk: <150 mg/dL Borderline High Risk: 150-199 mg/dL High Risk: 200-499 mg/dL Very High Risk: >ig=193 mg/dL Blood 04/14/2021 2:30 PM EST 04/14/2021 2:52 PM EST Narrative Resulting Agency Comment Spec In Lab Sandy Mak MD CHEMISTRY OR DERABLES Performing Organization Address City/[facility]/ZIP Co de Phone Number [facility] [place] [address] * HDL/Cholesterol Profile (04/14/2021 2:30 PM EST) Cholesterol, Total 58 mg/dL [facility] Comment: Lower Risk: <200 mg/dL Average Risk: 200-239 mg/dL Higher Risk: >rd=108 mg/dL HDL Cholesterol 31 mg/dL [facility] Comment: Males: ?? Higher Risk: <40 mg/dL Females: ?? Higher Risk: <50 mg/dL Cholesterol/HDL Ratio 1.9 ratio [facility] Chol/HDL Interpretation See Note [facility] Comment: Lipid management should be guided by a patient? s ASCVD risk, goals and preferences. ACC/AHA Guidelines recommend high intensity statin if clinical ASCVD or LDL greater than or equal to 190 mg/dL. http://Sarkite[employer] Sensorsurl.com/IRQ-TAO-Uclwmaqxc Measure LDL if Total Cholesterol minus HDL Cholesterol is greater than 220 mg/dL. Adults aged 40-75 with LDL 70-189 mg/dL should have their 10 year ASCVD risk estimated with the ACC/AHA ASCVD risk distribution estimator http://tools.acc.org/ANQGS-Xtmb-Rulgcbatf/ Statin should be discussed if risk greater [...] MD CHEMISTRY OR DERABLES Performing Organization Address [facility] Co de Phone Number [facility] [place] [address] * LDL Cholesterol, Direct (04/14/2021 2:30 PM EST) LDL Cholesterol, Direct 20 mg/dL [facility] Comment: Lowest Risk: <100 mg/dL Lower Risk: 100-129 mg/dL Borderline High Risk: 130-159 mg/dL High Risk: 160-189 mg/dL Very High Risk: >kk=927 mg/dL Blood 04/14/2021 2:30 PM EST 04/14/2021 2:52 PM EST Narrative Resulting Agency Comment Spec In Lab Sandy Mak MD CHEMISTRY OR DERABLES Performing Organization Address City/[facility]/ZIP Co de Phone Number [facility] [place] [address] * Hemoglobin A1c (04/14/2021 2:30 PM EST) Hemoglobin A1c 5.4 4.3 - 5.6 % [facility] Comment: Reference Range: 4.3 - 5.6% [...] Mellitus, Diabetes Care 2013; 36: Suppl. 1, U49-02 Estimated Average Glucose See note mg/dL [facility] Comment: Estimated Average Glucose not appropriate [...] into estimated average glucose values. ??Diabetes Care 2008:31(8):4075-7097. Blood 04/14/2021 2:30 PM EST 04/14/2021 2:52 PM EST Narrative Resulting Agency Comment Spec In Lab Sandy Mak MD CHEMISTRY OR DERABLES [facility] [place] [address] * XR Chest One View (04/13/2021 9:13 [...] who have questions please contact the health youth care professional that requested your imaging first. ? Electronically signed by: Keli Mercedes MD, [facility] ([phone]), at 04/13/2021 11:04 PM Narrative 04/13/2021 11:04 PM EST EXAMINATION: XR [...] patients who have questions please contactthe health youth care professional that requested your imaging first. Sandy Mak MD IMG DX ORDER CORDELIA * Type and Screen Validity (04/13/2021 8:07 PM EST) T&S only valid at [facility] Comment:This Type and Screen result is only valid at the [facility] Blood Venous Draw / Unknown 04/13/2021 8:07 PM EST 04/13/2021 8:12 PM EST Narrative Resulting Agency Comment Spec In Lab Sandy Mak MD BLOOD BANK L AB ORDERABLES [facility] [place] [address] * ABORH Recheck Status (04/13/2021 8:07 PM EST) ABORH Type Recheck Completed [facility] Blood Venous Draw / Unknown 04/13/2021 8:07 PM EST 04/13/2021 8:12 PM EST Narrative Resulting Agency Comment Spec In Lab Sandy Mak MD BLOOD BANK L AB ORDERABLES [facility] [place] [address] * Selected Cell Screen (04/13/2021 8:07 PM EST) Ab Screen Interp Previously identified Anti-K, M. No additional alloantibodies detected.* *Due to the presence of alloantibody(ies) additional time is required for preparation of Red Cell Products. See initial antibody identification report for additional information. [facility] Blood Venous Draw / Unknown 04/13/2021 8:07 PM EST 04/13/2021 8:12 PM EST Narrative Resulting Agency Comment Spec In Lab Sandy Mak MD BLOOD BANK L AB ORDERABLES Performing Organization Address City/[facility]/ZIP Co de Phone Number [facility] [place] [address] * ABORh Type Manual (04/13/2021 8:07 PM EST) Expires at [id number] on: 04/16/2021 [facility] ABORH Type O Pos [facility] Blood Venous Draw / Unknown 04/13/2021 8:07 PM EST 04/13/2021 8:12 PM EST Narrative Resulting Agency Comment Spec In Lab Sandy Mak MD BLOOD BANK L AB ORDERABLES [facility] [place] [address] * Blue Tube HOLD (04/13/2021 8:07 PM EST) Pathologist [facility] Blue Hold Sample in lab. [facility] Blood Venous Draw / Unknown 04/13/2021 8:07 PM EST 04/13/2021 8:17 PM EST Sandy Mak MD HEMATOLOGY O RDERABLES [facility] [place] [address] * Lactate Dehydrogenase (04/13/2021 8:07 PM EST) [facility] Lactate Dehydrogenase 189 110 - 220 unit/L [facility] Blood 04/13/2021 8:07 PM EST 04/13/2021 8:16 PM EST Narrative Resulting Agency Comment Spec In Lab Sandy Mak MD CHEMISTRY OR DERABLES Performing Organization Address [facility]/ZIP Co de Phone Number [facility] [place] [address] * Ferritin (04/13/2021 8:07 PM EST) [facility] Ferritin 255 30 - 400 ng/mL [facility] Comment: Pediatric reference ranges not verified at [facility], interpret with caution. Reference ranges for females greater than 50 years of age approach values for men, i.e., 30-400 ng/mL. Blood 04/13/2021 8:07 PM EST 04/13/2021 8:16 PM EST Narrative Resulting Agency Comment Spec In Lab Sandy Mak MD CHEMISTRY OR DERABLES Performing Organization Address City/[facility]/ZIP Co de Phone Number [facility] [place] [address] * (ABNORMAL) CRP, acute inflammation (04/13/2021 8:07 PM EST) [facility] C-Reactive Protein 51.3(H) <=4.9 mg/L [facility] Blood 04/13/2021 8:07 PM EST 04/13/2021 8:16 PM EST Narrative Resulting Agency Comment Spec In Lab Sandy Mak MD CHEMISTRY OR DERABLES Performing Organization Address [facility] de Phone Number [facility] [place] [address] * (ABNORMAL) D-Dimer, Quantitative (04/13/2021 8:07 PM EST) [facility] D-Dimer 536(H) 0 - 500 FEU ng/ml [facility] Comment: The D-Dimer assay is used [...] MD HEMATOLOGY O RDERABLES Performing Organization Address [facility] Co de Phone Number [facility] [place] [address] * (ABNORMAL) Differential, Automated (04/13/2021 8:07 PM EST) [facility] Neutrophil % 84.3 % [facility] Neutrophil Absolute 5.62 1.70 - 6.10 x10(3)/mc L [facility] Lymph % 11.1 % [facility] Lymphocytes Abs 0.7(L) 0.9 - 3.2 x10(3)/mc L [facility] Monocyte % 3.6 % [facility] Monocyte Abs 0.2(L) 0.3 - 0.9 x10(3)/[facility] Eos % 0.6 % [facility] Eosinophils Abs 0.0 0.0 - 0.4 x10(3)/[facility] Basophil % 0.1 % [facility] Baso Absolute 0.0 0.0 - 0.1 x10(3)/[facility] Immature Gran % 0.30 % [facility] Comment: Immature granulocytes(IG's)percentage and absolute count will include metamyelocytes, myelocytes, and promyelocytes. Blood smears from CBCs yielding IG's will be scanned manually for concordance. If this scan disagrees with the automated IG or if promyelocytes are noted, a manual differential will be performed. Immature Gran Absolute 0.02 0.00 - 0.04 x10(3)/[facility] Blood 04/13/2021 8:07 PM EST 04/13/2021 8:16 PM EST Narrative Resulting Agency Comment Spec In Lab Sandy Mak MD HEMATOLOGY O RDERABLES [facility] [place] [address] * (ABNORMAL) Hemogram (04/13/2021 8:07 PM EST) White Blood Cell 6.7 4.0 - 9.5 x10(3)/[facility] Red Blood Cell 3.37(L) 4.58 - 5.54 x10(6)/[facility] Hemoglobin 10.6(L) 13.7 - 16.5 g/dL [facility] Hematocrit 31.4(L) 40.5 - 48.5 % [facility] Mean Cell Volume 93.2(H) 82.9 - 93.1 fL [facility] Mean Cell Hemoglobin 31.5 27.5 - 32.1 pg [facility] Mean Cell Hemoglobin Concentration 33.8 32.0 - 35.7 g/dL [facility] Platelet 116(L) 145 - 357 x10(3)/mc L [facility] RDW Standard Deviation 57.1(H) 36.0 - 45.0 fL [facility] RDW coefficient of variation 17.7(H) 11.4 - 13.8 % [facility] Mean Platelet Volume 10.3 7.6 - 12.9 [facility] NRBC% auto 0.0 % [facility] NRBC Absolute 0.000 0.000 - 0.000 x10(3)/mc L [facility] Blood 04/13/2021 8:07 PM EST 04/13/2021 8:16 PM EST Narrative Resulting Agency Comment Spec In Lab Sandy Mak MD [place]OLOG[place] [address] * Blood culture (04/13/2021 8:07 PM EST) Blood Culture No growth at 5 days. [facility] Blood STRUCTURE OF RIGHT HAND / Unknown 04/13/2021 8:07 PM EST 04/13/2021 8:34 PM EST Narrative Resulting Agency Comment Spec In Lab Sandy Mak MD MICROBIOLOGY - BLOOD ORDERABLES [facility] [place] [address] * Blood culture (04/13/2021 8:07 PM EST) Blood Culture No growth at 5 days. [facility] Blood STRUCTURE OF LEFT FOREARM / Unknown 04/13/2021 8:07 PM EST 04/13/2021 8:35 PM EST Narrative Resulting Agency Comment Spec In Lab Sandy Mak MD MICROBIOLOGY - BLOOD ORDERABLES Performing Organization Address [facility] Co de Phone Number [facility] [place] [address] * APTT (04/13/2021 8:07 PM EST) Partial Thromboplastin Time 33 25 - 37 sec [facility] Comment: The PTT is NOT appropriate for heparin monitoring. Use the Anti-Xa level for heparin monitoring (HEP UFH) or LMWH monitoring (HEP LMW). A PTT less than 37 seconds generally indicates adequate hemostasis. Blood 04/13/2021 8:07 PM EST 04/13/2021 8:16 PM EST Narrative Resulting Agency Comment Spec In Lab Sandy Mak MD HEMATOLOGY O RDERABLES Performing Organization Address [facility] de Phone Number [facility] [place] [address] * (ABNORMAL) Prothrombin Time (04/13/2021 8:07 PM EST) Prothrombin Time 15.3(H) 9.4 - 12.5 sec [facility] International Normalization Ratio 1.3 [facility] Comment: An INR <2.0 indicates adequate [...] MD HEMATOLOGY O RDERABLES Performing Organization Address City/[facility]/ZIP Co de Phone Number [facility] [place] [address] * (ABNORMAL) Hepatic Function Panel (04/13/2021 8:07 PM EST) [facility] Protein, Total 5.2(L) 6.1 - 8.0 g/dL [facility] Albumin 2.4(L) 3.2 - 5.2 g/dL [facility] Aspartate Aminotransferase 19 0 - 39 unit/L [facility] Alanine Aminotransferase 10 0 - 55 unit/L [facility] Alkaline Phosphatase 94 40 - 130 unit/L [facility] Bilirubin, Total 1.0 0.2 - 1.3 mg/dL [facility] Bilirubin, Direct 0.6(H) 0.0 - 0.3 mg/dL [facility] Blood 04/13/2021 8:07 PM EST 04/13/2021 8:16 PM EST Narrative Resulting Agency Comment Spec In Lab Sandy Mak MD CHEMISTRY OR DERABLES Performing Organization Address [facility] Co de Phone Number [facility] [place] [address] * (ABNORMAL) Phosphorus (04/13/2021 8:07 PM EST) [facility] Phosphorus 2.3(L) 2.5 - 4.5 mg/dL [facility] Blood 04/13/2021 8:07 PM EST 04/13/2021 8:16 PM EST Narrative Resulting Agency Comment Spec In Lab Sandy Mak MD CHEMISTRY OR DERABLES Performing Organization Address [facility] Co de Phone Number [facility] [place] [address] * Magnesium (04/13/2021 8:07 PM EST) [facility] Magnesium 0.73 0.69 - 1.07 mmol/L [facility] Blood 04/13/2021 8:07 PM EST 04/13/2021 8:16 PM EST Narrative Resulting Agency Comment Spec In Lab Sandy Mak MD CHEMISTRY OR DERABLES Performing Organization Address [facility] Co de Phone Number [facility] [place] [address] * (ABNORMAL) Calcium (04/13/2021 8:07 PM EST) Pathologist [facility] Calcium 8.0(L) 8.5 - 10.5 mg/dL [facility] Blood 04/13/2021 8:07 PM EST 04/13/2021 8:16 PM EST Narrative Resulting Agency Comment Spec In Lab Sandy Mak MD CHEMISTRY OR DERABLES Performing Organization Address [facility] Co de Phone Number [facility] [place] [address] * (ABNORMAL) Basic Metabolic Panel (non-fasting) (04/13/2021 8:07 PM EST) Pathologist [facility] Glucose 68 65 - 199 mg/dL [facility] Comment:Diabetes: >=200 mg/d L plus symptoms Blood Urea Nitrogen 18 10 - 20 mg/dL [facility] Creatinine 0.65(L) 0.80 - 1.50 mg/dL [facility] Sodium 137 135 - 145 mmol/L [facility] Potassium 3.6 3.5 - 5.0 mmol/L [facility] Comment: Please note: ??Patients with WBC >100,000 may have falsely elevated Potassium levels. ??For accurate Potassium quantification in these patients send serum separator tube (gold top) for subsequent determinations. ??Contact the Clinical Chemistry Laboratory if there are any questions. Chloride 110(H) 98 - 107 mmol/L [facility] Carbon Dioxide 21(L) 22 - 31 mmol/L [facility] Anion Gap 6 5 - 15 mmol/L [facility] Calcium 8.0(L) 8.5 - 10.5 mg/dL [facility] Est Glomerular Filtration Rate 99 >=60 mL/min/1. 73 m?? [facility] Comment: This patient? s estimated glomerular [...] Lab Sandy Mak MD CHEMISTRY OR DERABLES [facility] [place] [address] * Request For 2nd Read CT Chest [...] who have questions please contact the health youth care professional that requested your imaging first. ? Electronically signed by: Shaun De Los Santos MD, [facility] ([phone]), at 04/14/2021 9:34 AM Narrative 04/14/2021 9:34 AM EST EXAMINATION: REQUEST FOR 2ND READ CT CHEST ABDOMEN PELVIS CLINICAL HISTORY: Cirrhosis; Sending Institution [facility]; Date of exam [id number]; I believe a [...] are moderate multivessel atherosclerotic calcifications of the alutiiq coronary arteries. There are median sternotomy wires. [...] ABDOMEN PELVIS CLINICAL HISTORY: Cirrhosis; Sending Institution [facility];Date of exam [id number]; I believe a reinterpretation [...] patients who have questions please contactthe health youth care professional that requested your imaging first. Electronically signed by: Shaun De Los Santos MD, [facility]([phone]), at 04/14/2021 9:34 AM Sandy Mak MD IMG OUTSIDE INTERPRETATION ORDERABLES * EKG 12 Lead (04/13/2021 6:29 PM EST) Ventricular rate 78 BPM MUSE SYSTEM Atrial Rate 108 BPM MUSE SYSTEM QRS Duration 66 ms MUSE SYSTEM Q-T Interval 392 ms MUSE SYSTEM QTC Calculated (Bezet) 446 ms MUSE SYSTEM Calculated R [place] 101 degrees MUSE SYSTEM Calculated T [place] 58 degrees MUSE SYSTEM INTERPRETATION Atrial fibrillation [...] (ABNORMAL) COVID-19 PCR (04/13/2021 5:51 PM EST) SARS-CoV-2 RNA (Rapid) Detected (A) Not Detected [facility] Comment: This result should be interpreted [...] using the Simplexa COVID-19 Direct Assay by [employer] as authorized by the FDA issued Emergency [...] Department of Pathology and Laboratory Medicine at [facility], certified under the Clinical Laboratory [...] fact sheets at the following FDA website: https://www.fda.gov/medical-devices/wtoqqscclbh-wfrpsxu-6832-ojbgt-10-brulpshmg- use-a lpkyliggnfbyi-ijiniov-zovmduf/uawtf-oivstoycxhw-rhlp SARS-CoV-2 Source [employer] PARTS Swab MA R[facility] Nasopharyngeal Swab 04/13/20 5:51 PM EST 04/13/2021 6:25 PM EST Comment:Symptoms->COVID-19 S uspected Narrative Resulting Agency Comment Spec In Lab Sandy Mak MD MICROBIOLOGY - GENERAL ORDERABLES [facility] [place] [address] documented in this encounter Visit Diagnoses Diagnosis depression Mental disorders of mother, complicating , childbirth, or the puerperium, unspecified as to episode of care History of ASCVD Personal history of other diseases of circulatory system Gastrointestinal hemorrhage, unspecified gastrointestinal hemorrhage type GIB (gastrointestinal bleeding) Hemorrhage of gastrointestinal tract, unspecified documented in this encounter Admitting Diagnoses Diagnosis GIB [...] PRN, Starting on Tue04/14/21 at 0004, Until Brii 04/16/21 at 1907, For BG 50-70 mg/dL: Oral [...] PRN, Starting on Tue04/14/21 at 0004, Until Brii 04/16/21 at 1907, Low blood sugar, For BG [...] Given 04/15/2021 8:54 AM EST 12.5 mg oxyCODONE-acetaminophen (Percocet) 5-325 mg per tablet 1 tablet 1 tablet, Oral, ONCE, 1 dose, On Brii 04/16/21 at 1230, Maximum dose of acetaminophen is 4000 mg from all sources in 24 hours., Routine Given 04/16/2021 12:24 PM EST 1 tablet pantoprazole (Protonix) injection 40 mg 40 mg, Intravenous, 2 TIMES DAILY, First dose on Tue04/13/21 at 1845, Until Discontinued Given 04/16/2021 10:00 AM EST 40 mg Given 04/15/2021 9:00 PM EST 40 mg Given 04/15/2021 8:11 AM EST 40 mg potassium chloride ER (K-Dur/Klor-Con) tablet 40 mEq 40 mEq, Oral, EVERY 4 HOURS, 2 doses, First dose on Tue04/15/21 at 1330, Last dose on Tue04/15/21 at 1730, 20 mEq tablet may be dissolved in water for administration, Routine Given 04/15/2021 6:27 PM EST 40 mEq Given 04/15/2021 1:27 PM EST 40 mEq sodium chloride 0.45% infusion 100 mL/hr, Intravenous, CONTINUOUS, Starting on Tue04/13/21 at 1930, Until Tue04/14/21 at 0729 [facility] 04/13/2021 6:57 PM EST 100 mL/hr 100 mL/hr sodium chloride 0.45% infusion 100 mL/hr, Intravenous, CONTINUOUS, Starting on Tue04/14/21 at 1230, Until Tue04/15/21 at 0029 [facility] 04/14/2021 12:50 PM EST 100 mL/hr 100 mL/hr sodium chloride 0.45% infusion 100 mL/hr, Intravenous, CONTINUOUS, Starting on Tue04/14/21 at 1830, Until Tue04/15/21 at 0629 [facility] 04/14/2021 9:56 PM EST 100 mL/hr 100 mL/hr [facility] 04/14/2021 6:36 PM EST 100 mL/hr 100 mL/hr sodium chloride 0.45% infusion 100 mL/hr, Intravenous, CONTINUOUS, Starting on Tue04/15/21 at 1100, Until Tue04/15/21 at 2259 [facility] 04/15/2021 11:02 AM EST 100 mL/hr 100 mL/hr sodium chloride 0.9 % (flush) (BD PosiFlush [...] 8:13 AM EST 5 mLs sodium chloride 0.9% 500 mL IV bolus Intravenous, ONCE, 1 dose, On Tue04/14/21 at 1545 New Bag 04/14/2021 3:01 PM EST 500 mL/hr thiamine (B-1) 500 mg in sodium chloride [...] Provider: Sharmila Ortega RN - Reason: NPO)1634 (MAR Hold - Provider: Admin Adt - Reason: Transfer to a Procedural area)1725 (MAR Unhold - Provider: Admin Adt) 1000 (Given [...] - Reason: Transfer to a Procedural area)1725 ([facility] Unhold - Provider: Admin Adt)210 (Given - Provider: Basia Guerrero RN) 1000 (Given - Provider: Gela Rich, DESTIN) cefTRIAXone (Rocephin) 1 g vial attach to sodium chloride 0.9% 50 mL Mini-Bag Plus 1 g, Intravenous, EVERY 24 HOURS, First dose on Tue04/13/21 at 1845, Until Discontinued, Administer over 30 Minutes, Indication for (Active or Suspected): GI/Intra-abdominal 1836 (New Bag - Provider: Mis Orozco, DESTIN)1906 (Stopped - Provider: Basia Guerrero RN) 1634 ([facility] Hold - Provider: Admin Adt - Reason: Transfer to a Procedural area)172 ([facility] Unhold - Provider: Admin Adt)1828 (New Bag [...] Provider: Sharmila Ortega RN - Reason: NPO)1634 ([facility] Hold - Provider: Admin Adt - Reason: Transfer to a Procedural area)172 ([facility] Unhold - Provider: Admin Adt) 1000 (Given - Provider: Gela Rich, DESTIN) insulin lispro (HumaLOG;Admelog) (100 unit/mL) subcutaneous injection [...] Procedural area)1725 (MAR Unhold - Provider: Admin Adt)2100 (Given - [...] Discontinued 0845 (Given - Provider: Mis Orozco RN)214 (Given - Provider: Basia Guerrero RN) 08 (Given - Provider: Sharmila Ortega RN)163 ([facility] Hold - Provider: Admin Adt - Reason: Transfer to a Procedural area)172 ([facility] Unhold - Provider: Admin Adt)2100 (Given - Provider: Basia Guerrero RN) 1000 (Given - Provider: Gela Rich RN) potassium chloride ER (K-Dur/Klor-Con) tablet 40 mEq (COMPLETED) 40 mEq, Oral, EVERY 4 HOURS, 2 doses, First dose on Tue04/15/21 at 1330, Last dose on Tue04/15/21 at 1730, 20 mEq tablet may be dissolved in water for administration, Routine 1327 (Given - Provider: Sharmila Ortega RN)1634 ([facility] Hold - Provider: Admin Adt - Reason: Transfer to a Procedural area)172 ([facility] Unhold - Provider: Admin Adt)1827 (Given - Provider: Sharmila Ortega RN) sodium chloride 0.9 % (flush) (BD PosiFlush Normal Saline 0.9) flush 5 mL 5 mL, Intravenous, 2 TIMES DAILY, First dose on Tue04/13/21 at 2100, Until Discontinued, Routine 0905 (Given - Provider: Mis Orozco RN)214 (Given - Provider: Basia Guerrero RN) 0813 (Given - Provider: Sharmila Ortega RN)163 ([facility] Hold - Provider: Admin Adt - Reason: Transfer to a Procedural area)172 ([facility] Unhold - Provider: Admin Adt)210 (Given - Provider: Basia Guerrero RN) 1000 (Given - Provider: Gela Rich DESTIN) sodium chloride 0.9 % (flush) (BD PosiFlush Normal Saline 0.9) flush 5 mL 5 mL, Intravenous, 2 TIMES DAILY, First dose on Tue04/13/21 at 2100, Until Discontinued, Routine 0905 (Given - Provider: Mis Orozco RN)2143 (Given - Provider: Basia Guerrero, DESTIN) 0813 (Given - Provider: Sharmila Ortega, DESTIN)1634 ([facility] Hold - Provider: Admin Adt - Reason: Transfer to a Procedural area)1725 ([facility] Unhold - Provider: Admin Adt)210 (Given - Provider: Basia Guerrero, DESTIN) 1000 (Given - Provider: Gela Rich, DESTIN) sodium chloride 0.9% 500 mL IV bolus [...] DESTIN)0841 (Stopped - Provider: Sharmila Ortega RN)1634 ([facility]G Hold - Provider: Admin Adt - Reason: Transfer to a Procedural area)1725 ([facility] Unhold - Provider: Admin Adt) 1000 (New Bag - Provider: Gela Rich, DESTIN)1030 (Stopped - Provider: Gela Rich, DESTIN) Continuous Medication Order 04/14/2021 04/15/2021 04/16/2021 sodium [...] 1836 (New Bag - Provider: Mis Orozco RN)2155 (New Bag - Provider: Basia Guerrero RN) sodium chloride 0.45% infusion () 100 mL/hr, Intravenous, CONTINUOUS, Starting on Tue04/15/21 at 1100, Until Tue04/15/21 at 2259 1102 (New Bag - Provider: Sharmila Ortega RN)1634 (AUG Hold - Provider: Admin Adt - Reason: Transfer to a Procedural area)1725 ([facility] Unhold - Provider: Admin Adt)2109 (Stopped - Provider: Basia Guerrero RN) PRN [...] RN) 1116 (See Alternative - Provider: Sharmila Ortega, RN)1634 (AUG Hold - Provider: Admin Adt - Reason: Transfer to a Procedural area)1725 ([facility] Unhold - Provider: Admin Adt) glucagon (Glucagen) [...] Routine 0843 (See Alternative - Provider: Mis Orozco RN)1552 (See Alternative - Provider: Mis Orozco RN) 1116 (See Alternative - Provider: Sharmila Ortega, RN)1634 (AUG Hold - Provider: Admin Adt - Reason: Transfer to a Procedural area)172 ([facility] Unhold - Provider: Admin Adt) glucose (GLUTOSE) [...] Orozco, RN) 1116 (Given - Provider: Sharmila Ortega RN)1634 ([facility] Hold - Provider: Admin Adt - Reason: Transfer to a Procedural area)1725 ([facility] Unhold - Provider: Admin Adt) ipratropium-albuteroL (Duoneb) 0.5 mg-3 mg(2.5 mg base)/3 mL nebulizer solution 3 mL 3 mL, Nebulization, EVERY 4 HOURS PRN, Starting on Tue04/13/21 at 1751, Until Tue04/16/21 at 1907, Wheezing, Routine 1634 ([facility] Hold - Provider: Admin Adt - Reason: Transfer to a Procedural area)1725 ([facility] Unhold - Provider: Admin Adt) lidocaine (Xylocaine) 1% (10 mg/mL) injection 3 mg 3 mg (0.3 mL), Subcutaneous, ONCE PRN, 1 dose, Starting on Tue04/13/21 at 1751, Until Brii 04/16/21 at 1907, for discomfort with PIV insertion, Routine 1634 ([facility] Hold - Provider: Admin Adt - Reason: Transfer to a Procedural area)1725 ([facility] Unhold - Provider: Admin Adt) nitroGLYcerin (Nitrostat) disintegrating tablet 0.4 mg 0.4 mg, Sublingual, EVERY 5 MIN PRN, Starting on Tue04/13/21 at 1751, Until Tue04/16/21 at 1907, Chest pain, SL nitroglycerin may be repeated every 5 minutes as needed up to 3 doses, Routine 1634 ([facility] Hold - Provider: Admin Adt - Reason: Transfer to a Procedural area)1725 ([facility] Unhold - Provider: Admin Adt) sodium chloride 0.9 % (flush) (BD PosiFlush Normal Saline 0.9) flush 5-20 mL 5-20 mL, Intravenous, EVERY 1 MIN PRN, Starting on Tue04/13/21 at 1751, Until Tue04/16/21 at 1907, flush, Flush pertains to all indwelling lines. Flush per protocol found in the job aid using the link provided on this medication record., Routine 1634 ([facility] Hold - Provider: Admin Adt - Reason: Transfer to a Procedural area)172 ([facility] Unhold - Provider: Admin Adt) sodium chloride 0.9 % (flush) (BD PosiFlush Normal Saline 0.9) flush 5-20 mL 5-20 mL, Intravenous, EVERY 1 MIN PRN, Starting on Tue04/13/21 at 1751, Until Tue04/16/21 at 1907, flush, Flush pertains to all indwelling lines. Flush per protocol found in the job aid using the link provided on this medication record., Routine 1634 ([facility] Hold - Provider: Admin Adt - Reason: Transfer to a Procedural area)1725 ([facility] Unhold - Provider: Admin Adt) Linked Groups [...] eligible for precaution removal: 04/21/21 Please contact [facility] at [email or web address] before discontinuing Airborne and Contact Precautions. 04/13/2021 04/13/2021 05/04/2021 8:[address] documented as of this encounter Care Teams Tire Care Manager Relationship Specialty Start Date End Date Silvina Perdue MD [address] [place] [address] PCP - General 04/28/10 documented as of this encounter
--- OUTSIDE RECORDS SUMMARY | 2024-04-02 21:45 | XMS_ITS | Encounter Summary ---
Author Organization [facility] Address [address] [facility] [place] [address] Care Team Providers Care Soft Work Wrapper Layer And Examiner Name Role Phone Silvina Perdue MD Primary Care Provider [phone] Encounter Details Date Type Department Care Team (Late st Contact Info) Description 03/09/2018 Refill Dermatology at [address] [place] [address] Mandy Quezada, COREMAKER APPRENTICE Social History Tobacco Use Types Packs/Day Years Used Date Smoking Tobacco: Former Cigarettes Smokeless Tobacco: Never Alcohol Use Standard Drinks/Week Comments Yes 20 (1 standard drink = 0.6 oz pu re alcohol) Sex and Gender Information Value Date Recorded Sex Assigned at Not on file Gender Identity Not on file Sexual Orientation Not on file documented as of this encounter Plan of Treatment Not on file documented as of this encounter Visit Diagnoses Not on filedocumented in this encounter Care Teams Soft Work Wrapper Layer And Examiner Relationship Specialty Start Date End Date Silvina Perdue MD [address] [place] [address] PCP - General 04/28/10 documented as of this encounter
--- OUTSIDE RECORDS SUMMARY | 2024-04-02 21:45 | XMS_ITS | Encounter Summary ---
Author Organization [facility] [place] [address] Care Team Providers Care Associate Chief Nurse Name Role Phone Silvina Perdue MD Primary Care Provider [phone] Reason for Visit * Auth/Cert Specialty Diagnoses / Procedures Referred By Viridiana t Referred To Contact Diagnoses GIB (gastrointestinal bleeding) GI bleed Referral ID Status Reason Start Date Expiration Date Visits Re quested Visits Authorized [id number] 1 1 Encounter Details Date Type Department Care Team (Late st Contact Info) Description 04/15/2021 4:29 PM EST Anesthesia [place] [id number] Radha Murphy MD [facility] [place] [address] Kelly Bellamy MD [facility] [place] [address] Anesthesia Record Procedure Summary Procedure Name Responsible Anesthesiologist Anesthesia Start Time Anesthesia Stop Time EGD, UPPER GI ENDOSCOPY (WRVU 2.09) (Esophagus) Radha Murphy MD 04/15/21 1629 04/15/21 1721 Events Date Time Event Comment 04/15/2021 1629 Start 1635 AN Verify 1635 An Start Data 1636 An Induction 1643 Anesthesia Ready 1721 an stop data 1721 Recovery or ICU Handoff Verenice ent care was transferred to the destination unit staff after review of the patient's medical history, current anesthetic/surgical status and plan, according to the Provider Handoff Checklist. 1721 Stop 04/16/2021 2334 Meds Name Total IV Lidocaine 100 mg Propofol 70 mg Dextrose 50 % 25 mL Lactated Ringers 200 mL * Agents Name O2 Air N2O Sevoflurane (et) O2 Auxiliary Flowmeter 1 * Blood No blood administrations on file. Lines, Drains, and Airways Type Details Placement Removal Wound 04/14/21; 2207; Left , posterior, upper; arm; abrasion 04/14/212207 by Basia Juares, DESTIN (RETIRED) Peripheral IV Line - Single Lumen 04/13/21; 1630; basilic vein (medial side of arm), left (UPPER ARM); OSH; no longer indicated; 04/16/21; 1630 04/13/21 1630 by Mis Orozco RN 04/16/21 1630 by Gela Rich RN (RETIRED) Peripheral IV Line - Single Lumen 04/13/21; 1630; median cubital vein (antecubital fossa), right; OSH; no longer indicated; 04/16/21; 1630 04/13/21 1630 by Mis Orozco RN 04/16/21 1630 by Gela Rich RN documented in this encounter Social History Tobacco Use Types Packs/Day Years Used Date Smoking Tobacco: Former Cigarettes Smokeless Tobacco: Never Alcohol Use Standard Drinks/Week Comments Yes 20 (1 standard drink = 0.6 oz pu re alcohol) Sex and Gender Information Value Date Recorded Sex Assigned at Not on file Gender Identity Not on file Sexual Orientation Not on file documented as of this encounter OR Notes * Anesthesia Preprocedure Evaluation - Radha Murphy MD - 04/16/2021 11:33 PM EST Pre-Anesthesia Evaluation for: Nain Kang a 70 y.o. male. Procedure(s): EGD, UPPER GI ENDOSCOPY Patient Active Problem List Diagnosis ??? GIB (gastrointestinal bleeding) ??? Iron deficiency anemia due to chronic blood loss ??? ETOH abuse Daily use: 6 pack 12oz beer, 2 shots primo ??? History of GI tract cancer Hx gastric cancer ? S/p partial gastrectomy 2000, c/b surgical flap infection and removal of 4-5 ribs. ??? Paroxysmal atrial fibrillation On Eliquis ??? History of ASCVD S/p 4v CABG - on ASA ??? Chronic back pain On chronic narcotics ??? Type 2 diabetes mellitus with neurologic complication, without long-term current use of insulin On Metformin and Gabapentin ??? Pancreatitis c/b pseudocyst/cyst 2004 ??? Depression ??? COPD (chronic obstructive pulmonary disease) Not on home 02 or chronic steroids ??? Tobacco abuse disorder ??? Acute upper GI bleed Past Medical History: Diagnosis Date ??? Chronic [...] METHOD performed by Zain Sifuentes MD at [facility] ENDOSCOPY ??? PRO UPPER GI ENDOSCOPY, DIAGNOSTIC N/A 09/13/2017 EGD, UPPER GI ENDOSCOPY performed by Marixa Vidales MD at [facility] ENDOSCOPY ??? PRO UPPER GI ENDOSCOPY, DIAGNOSTIC N/A 04/15/2021 EGD, UPPER GI ENDOSCOPY performed by Kelvin Smith MD at [facility] MAIN OR Social History Tobacco Use ??? Smoking status: Former Smoker Types: Cigarettes ??? Smokeless tobacco: Never Used Substance Use Topics ??? Alcohol use: Yes Alcohol/week: 20.0 standard drinks Types: 14 Cans of beer, 6 Shots of liquor per week Social History Substance and Sexual Activity Drug Use No No Known Allergies Medications: MAR and/or home medications have been reviewed. Physical Exam: Preprocedure Vitals Current as of 04/15/21 1629 BP: 124/90 Pulse: Resp: 18 SpO2: Temp: 36.7 ??C (98 ??F) Height: 167.6 cm (5' 6) (04/13/21) Weight: BMI: IBW: Last edited 04/15/21 162 by KT Airway Assessment: Mallampati: I TM distance: >3 FB Neck ROM: full Cardiovascular Assessment: system normal Pulmonary Assessment: pulmonary exam normal Dental Assessment: - normal exam Misc Assessment: Patient is wearing No contact(s). IV access: Peripheral line and PICC line Last Filed Perioperative Cognitive Screening None Anesthesia Plan: ASA 3 MAC, with a(n) intravenous induction COVID + ETOH abuse male patient here for EGD for bleeding eval. Hemodynamically stable. Region - Other Informed Consent: Anesthetic plan and risks discussed with patient. Plan discussed with SLATER APPRENTICE. Anesthesia Screening * Anesthesia Postprocedure Evaluation - Radha Murphy MD - 04/16/2021 11:33 PM EST Department of Anesthesiology Post-procedure Note Patient: Nain Kang Procedure Summary Date: 04/15/21 Room / Location: [facility] OR [address] [place] [address] MAIN OR Anesthesia Start: 1628 Anesthesia Stop: 1720 Procedure: EGD, UPPER GI ENDOSCOPY (N/A Esophagus) Diagnosis: (hematemesis and melena, 4 point hgb drop, COVID +) Surgeons: Kelvin Smith MD Responsible Provider: Radha Murphy MD Anesthesia Type: Not recorded ASA Status: Not recorded All Anesthesia Providers: Anesthesiologist: Radha Murphy MD SLATER APPRENTICE: Kerry Humphries CRNA Vitals Value Taken Time BP 131/84 04/16/21 1000 Temp 36.6 ??C (97.9 ??F) 04/16/21 1000 Pulse Resp 20 04/16/21 1000 SpO2 92 % 04/16/21 1606 Pain Level 8 04/16/21 1224 Vitals shown include unvalidated device data. Patient Location: PACU/SDP Level of Consciousness: Awake and Alert Pain Management: Satisfactory Analgesia PONV: None Cardiovascular Status: At Baseline and Hemodynamically Stable Respiratory Status: At Baseline and Room Air Postoperative Fluid Status: Intravascular EUvolemia Possible Anesthetic Complications: NONE apparent at time of evaluation Final Primary Anesthesia Type: General (The anesthetic type performed was the same as planned.) Comments: RADHA MURPHY MD documented in this encounter Plan of Treatment Not on file documented as of this encounter Visit Diagnoses Not on filedocumented in this encounter Administered Medications Inactive Administered Medications - up to 3 most recent administrations Medication Order MAR Action Action Date Dose Rate Site dextrose 50% intravenous solution Intravenous, PRN, Starting on Tue04/15/21 at 1702, Until Tue04/15/21 at 1722, Anesthesia Intra-op, Routine Given 04/15/2021 5:02 PM EST 25 mLs lactated ringers infusion Intravenous, CONTINUOUS PRN, Starting on Tue04/15/21 at 1635, Until Tue04/15/21 at 1721, Anesthesia Intra-op New Bag 04/15/2021 4:35 PM EST lidocaine (pf) (Xylocaine) (20 mg/mL) 2% injection syringe Intravenous, PRN, Starting on Tue04/15/21 at 1654, Until Tue04/15/21 at 1721, Anesthesia Intra-op, Routine Given 04/15/2021 4:36 PM EST 100 mg propofoL (Diprivan) 10 mg/mL bolus injection (Anesthesia) Intravenous, PRN, Starting on Tue04/15/21 at 1640, Until Tue04/15/21 at 1721, Anesthesia Intra-op Given 04/15/2021 4:42 PM EST 20 mg Given 04/15/2021 4:40 PM EST 20 mg Given 04/15/2021 4:37 PM EST 30 mg documented in this encounter Additional Health Concerns Infection Onset Date Last Indicated Resolved Time COVID-19 Comment:Date of symptom onset: unknown Date of positive test: 04/10/21 Estimated date patient will be eligible for precaution removal: 04/21/21 Please contact [facility] at [email or web address] before discontinuing Airborne and Contact Precautions. 04/13/2021 04/13/2021 05/04/2021 8:[address] documented as of this encounter Care Teams Associate Chief Nurse Relationship Specialty Start Date End Date Silvina Perdue MD [address] [place] [address] PCP - General 04/28/10 documented as of this encounter
--- OUTSIDE RECORDS SUMMARY | 2024-04-02 21:45 | XMS_ITS | Encounter Summary ---
Author Organization [facility] Address [facility] [place] [address] Care Team Providers Care Metal Numerical Tool Programmer Name Role Phone Silvina Perdue MD Primary Care Provider [phone] Encounter Details Date Type Department Care Team (Late st Contact Info) Description 04/13/2021 7:35 PM EST Ancillary Procedure Radiology Library at [facility] [place] [address] Social History Tobacco Use Types Packs/Day Years [...] Procedure Name Priority Date/Time Associated Diagnosis Comments UPPER GI ENDOSCOPY Routine 04/15/2021 4: 56 PM EST POCT GLUCOSE Routine 04/15/2021 4:20 PM EST POCT GLUCOSE Routine 04/15/2021 12:06 PM EST POCT GLUCOSE Routine 04/15/2021 11:07 AM EST POCT GLUCOSE Routine 04/15/2021 7:27 AM EST POCT GLUCOSE Routine 04/14/2021 10:14 PM EST POCT GLUCOSE Routine 04/14/2021 9:50 PM EST POCT GLUCOSE Routine 04/14/2021 4:16 PM EST POCT GLUCOSE Routine 04/14/2021 4:05 PM EST POCT GLUCOSE Routine 04/14/2021 3:51 PM EST POCT GLUCOSE Routine 04/14/2021 11:23 AM EST POCT GLUCOSE Routine 04/14/2021 9:04 AM EST POCT GLUCOSE Routine 04/14/2021 8:09 AM EST REQUEST FOR 2ND READ CT CHEST ABDOMEN PELVIS Routine 04/13/2021 7:27 PM EST documented in this encounter Results * UPPER GI ENDOSCOPY (04/15/2021 4:56 PM EST) [facility] UPPER GI ENDOSCOPY [facility] Endoscopy Procedure Date: 04/15/2021 4:56 PM ? Patient Name: Nain Kang ? Date of : 1950 ? Age: 70 ? Order #: [id number] ? Instrument Name: [id number] - [id number] ? Procedure: ? Upper GI endoscopy Indications: ? Hematemesis Providers: ? Kelvin Smith, Courtney Brandon MD, ? Yoly Prieto, Converter Skimmer Referring : ? Medicines: ? Propofol per Anesthesia Complications: ? No immediate complications. Procedure: ? Pre-Anesthesia Assessment: ? - Prior to the procedure, a History ? and Physical was performed, and ? patient medications and allergies ? were reviewed. The patient is unable ? to give consent secondary to the ? patient's altered mental status. The ? risks and benefits of the procedure ? and the sedation options and risks ? were discussed with the patient. All ? questions were answered and informed ? consent was obtained. Patient ? identification and proposed procedure ? were verified by the physician in the ? pre-procedure area. Mental Status ? Examination: alert but confused. ? Airway Examination: normal ? oropharyngeal airway and neck ? mobility. Respiratory Examination: ? clear to auscultation. CV ? Examination: normal. Prophylactic ? Antibiotics: The patient does not ? require prophylactic antibiotics. ? Prior Anticoagulants: The patient has ? taken no previous anticoagulant or ? antiplatelet agents. ASA Grade ? Assessment: III - A patient with ? severe systemic disease. After ? reviewing the risks and benefits, the ? patient was deemed in satisfactory ? condition to undergo the procedure. ? The anesthesia plan was to use ? monitored anesthesia care (MAC). ? Immediately prior to administration ? of medications, the patient was ? re-assessed for adequacy to receive ? sedatives. The heart rate, ? respiratory rate, oxygen saturations, ? blood pressure, adequacy of pulmonary ? ventilation, and response to care ? were monitored throughout the ? procedure. The physical status of the ? patient was re-assessed after the ? procedure. ? The procedure, indications, benefits, ? risks and alternatives were explained ? to the patient. Specifically ? discussed were potential ? complications including, but not ? limited to, bleeding, perforation, ? infection, missing a cancer, and ? adverse medication reactions. The ? [id number] ([id number]) gastroscope was ? introduced through the mouth, and ? advanced to the second part of ? duodenum. The patient tolerated the ? procedure well. The patient tolerated ? the procedure well. ? Findings: ? The GEJ/esophago-gastr ic anastomosis was located at ? 35 cm from the incisors and was healthy/normal ? appearing. ? The gastric mucosa appeared normal, but was friable ? and oozed with contact in a few locations ? The examined duodenum was normal. ? Moderate Sedation: ? Not applicable - See Anesthesia documentation Impression: ?- Healthy appearing esophago-gastric ? anastomosis ? - Normal appearing but friable ? gastric mucosa with mild contact ? oozing. ? - Normal examined duodenum. ? - No specimens collected. Recommendation: ?- [facility] ? [facility] care. ? - Resume previous diet. ? - Observe patient's clinical course. ? Procedure Code(s): ?? --- Professional --- ? 48702, Esophagogastroduod enoscopy, ? flexible, transoral; diagnostic, ? including collection of specimen(s) ? by brushing or washing, when ? performed (separate procedure) Diagnosis Code(s): ?? --- Professional --- ? K92.0, Hematemesis ? K31.89, Other diseases of stomach and ? duodenum ? Z98.890, Other specified ? postprocedural states ? --- Technical --- ? K92.0, Hematemesis ? K31.89, Other diseases of stomach and ? duodenum ? Z98.890, Other specified ? postprocedural states CPT copyright 2019 [employer]. All rights reserved. The codes documented in this report are preliminary and upon feather curling machine operator review may be revised to meet current compliance requirements. Attending Participation: ? I was present and participated during the entire ? procedure, including non-adams portions. ? Kelvin Smith, 04/15/2021 5:01:04 PM Number of Addenda: 0 Note Initiated On: 04/15/2021 4:56 PM PROVATION 04/15/2021 4:56 PM EST Unknown GENERAL SURGICAL ORD ERABLES PROVATION * POCT Glucose (04/15/2021 4:20 PM EST) Glucose, POC 74 65 - 199 mg/dL [facility] Comment: Supplemental ranges: <140 mg/dL before meals <180 mg/dL all other times of the day Blood 04/15/2021 4:20 PM EST 04/15/2021 4:[address] Amber Lynne MD POINT OF CARE TEST O RDERADELORES Performing Organization Address City/[facility]/ZIP Co de Phone Number [facility] [place] [address] * POCT Glucose (04/15/2021 12:06 PM EST) Glucose, POC 135 65 - 199 mg/dL [facility] Comment: Supplemental ranges: <140 mg/dL before meals <180 mg/dL all other times of the day Blood 04/15/2021 12:0 6 PM EST 04/15/2021 12:[address] Amber Lynne MD POINT OF CARE TEST O POLINA Performing Organization Address City/[facility] Co de Phone Number [facility] [place] [address] * POCT Glucose (04/15/2021 11:07 AM EST) Glucose, POC 66 65 - 199 mg/dL [facility] Comment: Supplemental ranges: <140 mg/dL before meals <180 mg/dL all other times of the day Blood 04/15/2021 11:0 7 AM EST 04/15/2021 11:[address] Amber Lynne MD POINT OF CARE TEST Jeremiah FISH Performing Organization Address [facility] Co de Phone Number [facility] [place] [address] * POCT Glucose (04/15/2021 7:27 AM EST) Glucose, POC 73 65 - 199 mg/dL [facility] Comment: Supplemental ranges: <140 mg/dL before meals <180 mg/dL all other times of the day Blood 04/15/2021 7:27 AM EST 04/15/2021 7:[address] Amber Lynne MD POINT OF CARE TEST Jeremiah FISH Performing Organization Address [facility] Co de Phone Number [facility] [place] [address] * POCT Glucose (04/14/2021 10:14 PM EST) Glucose, POC 87 65 - 199 mg/dL [facility] Comment: Supplemental ranges: <140 mg/dL before meals <180 mg/dL all other times of the day Blood 04/14/2021 10:1 4 PM EST 04/14/2021 10:[address] Amber Lynne MD POINT OF CARE TEST O POLINA Performing Organization Address [facility] Co de Phone Number [facility] [place] [address] * POCT Glucose (04/14/2021 9:50 PM EST) Glucose, POC 66 65 - 199 mg/dL [facility] Comment: Supplemental ranges: <140 mg/dL before meals <180 mg/dL all other times of the day Blood 04/14/2021 9:50 PM EST 04/14/2021 9:[address] Amber Lynne MD POINT OF CARE TEST O POLINA Performing Organization Address [facility]/ZIP Co de Phone Number [facility] [place] [address] * POCT Glucose (04/14/2021 4:16 PM EST) Glucose, POC 97 65 - 199 mg/dL [facility] Comment: Supplemental ranges: <140 mg/dL before meals <180 mg/dL all other times of the day Blood 04/14/2021 4:16 PM EST 04/14/2021 4:[address] Amber Lynne MD POINT OF CARE TEST O POLINA Performing Organization Address [facility] Co de Phone Number [facility] [place] [place] [address] * POCT Glucose (04/14/2021 4:05 PM EST) Glucose, POC 65 65 - 199 mg/dL [facility] Comment: Supplemental ranges: <140 mg/dL before meals <180 mg/dL all other times of the day Blood 04/14/2021 4:05 PM EST 04/14/2021 4:[address] Amber Lynne MD POINT OF CARE TEST Jeremiah FISH Performing Organization Address [facility] Co de Phone Number [facility] [place] [address] * (ABNORMAL) POCT Glucose (04/14/2021 3:51 PM EST) Glucose, POC 60(L) 65 - 199 mg/dL [facility] Comment: Supplemental ranges: <140 mg/dL before meals <180 mg/dL all other times of the day Blood 04/14/2021 3:51 PM EST 04/14/2021 3:[address] Amber Lynne MD POINT OF CARE TEST O POLINA Performing Organization Address City/[facility]/ZIP Co de Phone Number [facility] [place] [address] * POCT Glucose (04/14/2021 11:23 AM EST) Glucose, POC 76 65 - 199 mg/dL [facility] Comment: Supplemental ranges: <140 mg/dL before meals <180 mg/dL all other times of the day Blood 04/14/2021 11:2 3 AM EST 04/14/2021 11:[address] Amber Lynne MD POINT OF CARE TEST O POLINA Performing Organization Address [facility] Co de Phone Number [facility] [place] [place] [address] * POCT Glucose (04/14/2021 9:04 AM EST) Glucose, POC 88 65 - 199 mg/dL [facility] Comment: Supplemental ranges: <140 mg/dL before meals <180 mg/dL all other times of the day Blood 04/14/2021 9:04 AM EST 04/14/2021 9:[address] Amber Lynne MD POINT OF CARE TEST O POLINA Performing Organization Address [facility] Co de Phone Number [facility] [place] [address] * POCT Glucose (04/14/2021 8:09 AM EST) Glucose, POC 66 65 - 199 mg/dL [facility] Comment: Supplemental ranges: <140 mg/dL before meals <180 mg/dL all other times of the day Blood 04/14/2021 8:09 AM EST 04/14/2021 8:[address] Amber Lynne MD POINT OF CARE TEST O POLINA Performing Organization Address City/[facility]/ZIP Co de Phone Number [facility] [place] [address] documented in this encounter Visit Diagnoses Not on filedocumented in this encounter Additional Health Concerns Infection Onset Date Last Indicated Resolved Time Rule Out COVID-19 04/13/2021 04/13/2021 04/13/2021 8:19 PM EST documented as of this encounter Care Teams Metal Numerical Tool Programmer Relationship Specialty Start Date End Date Silvina Perdue MD [address] [facility] [address] [place] [address] PCP - General 04/28/10 documented as of this encounter
--- OUTSIDE RECORDS SUMMARY | 2024-04-02 21:45 | XMS_ITS | Encounter Summary ---
Author Organization [facility] Address [facility] [place] [address] Care Team Providers Care Dedicated Truck Driver Name Role Phone Silvina Perdue MD Primary Care Provider [phone] Encounter Details Date Type Department Care Team (Late st Contact Info) Description 03/20/2021 Ancillary Procedure Radiology Library at [facility] [place] [address] Kelvin Smith MD [facility] [place] [address] Social History Tobacco Use Types Packs/Day Years [...] Procedure Name Priority Date/Time Associated Diagnosis Comments FILM LIBRARY STORAGE ONLY CT CHEST ABDOMEN PELVIS Routine 03/20/2021 12:00 AM EDT documented in this encounter Results * Film Library- Storage Only CT Chest Abdomen Pelvis (03/20/2021 12:00 AM EDT) Narrative [facility] - 04/13/2021 11:22 AM EST This exam is auto-finalizing. It's purpose is for storage only. Kelvin Smith MD [facility] FILM LIBRARY ORD ERABLES [facility] [place], [place] documented in this encounter Visit Diagnoses Not on filedocumented in this encounter Care Teams Dedicated Truck Driver Relationship Specialty Start Date End Date Silvina Perdue MD [address] [place] [address] PCP - General 04/28/10 documented as of this encounter
--- OUTSIDE RECORDS SUMMARY | 2024-04-02 21:45 | XMS_ITS | Encounter Summary ---
Author Organization [facility] Address [facility] [place] [address] Care Team Providers Care Branch Office Administrator Name Role Phone Silvina Perdue MD Primary Care Provider [phone] Encounter Details Date Type Department Care Team (Late st Contact Info) Description 04/10/2021 Ancillary Procedure Radiology Library at [facility] [place] [address] Kelvin Smith MD [facility] [place] [address] Social History Tobacco Use Types Packs/Day Years [...] STORAGE ONLY CT CHEST ABDOMEN PELVIS Routine 04/10/2021 12:00 AM EDT documented in this encounter Results * Film Library- Storage Only CT Chest Abdomen Pelvis (04/10/2021 12:00 AM EDT) Narrative [facility] - 04/13/2021 11:21 AM EST This exam is auto-finalizing. It's purpose is for storage only. Kelvin Smith MD [facility] FILM LIBRARY ORD ERABLES DH RAD [place], [place] documented in this encounter Visit Diagnoses Not on filedocumented in this encounter Care Teams Branch Office Administrator Relationship Specialty Start Date End Date Silvina Perdue MD [address] [place] [address] PCP - General 04/28/10 documented as of this encounter
--- OUTSIDE RECORDS SUMMARY | 2024-04-02 21:46 | XMS_ITS | Encounter Summary ---
Author Organization [facility] Address [facility] [place] [address] Care Team Providers Care Game Preserve Manager Name Role Phone Silvina Perdue MD Primary Care Provider [phone] Reason for Visit * Auth/Cert Specialty Diagnoses / Procedures Referred By Viridiana richards Referred To Contact Diagnoses Acute upper GI bleed UPPER GIB GI Bleed per CR Procedures EGD, UPPER GI ENDOSCOPY Referral ID Status Reason Start Date Expiration Date Visits Re quested Visits Authorized [id number] 1 1 Encounter Details Date Type Department Care Team (Late st Contact Info) Description 09/13/2017 4:20 PM EDT Anesthesia [place] [address] Anam Wood MD [facility] [place] [address] Anesthesia Record Procedure Summary Procedure Name Responsible Anesthesiologist Anesthesia Start Time Anesthesia Stop Time EGD, UPPER GI ENDOSCOPY (WRVU 2.09) (Trunk) Anam Wood MD 09/13/17 1620 09/13/17 1727 Events Date Time Event Comment 09/13/2017 1620 1620 Start 1621 AN Verify 1623 An Start Data 1630 An Induction 1631 An Intubation 1634 Anesthesia Ready 1640 Procedure Start 1715 Extubation/LMA Out 1715 an stop data 1717 Transport 1721 Recovery or ICU Handoff Verenice ent care was transferred to the destination unit staff after review of the patient's medical history, current anesthetic/surgical status and plan, according to the Provider Handoff Checklist. 1727 Stop Meds Name Total IV Lidocaine 80 mg Propofol 120 mg Propofol INF 370.31 mg PHENYLephrine 400 mcg Ondansetron 4 mg Dexamethasone 8 mg Succinylcholine 100 mg Lactated Ringers 600 mL * Agents Name O2 Air N2O Sevoflurane (et) * Blood No blood administrations on file. Lines, Drains, and Airways Type Details Placement Removal (RETIRED) Peripheral IV Line - Single Lumen 09/13/17; 1311 (POA); median cubital vein (antecubital fossa), right; dpib-qyv-zcuwqz catheter system; 20 gauge; lumen/catheter not patent, site symptomatic; 09/16/17; 91609/13/17 1311 by Kaleb Mack RN 09/16/17916 by Marquita Persaud RN (RETIRED) Peripheral IV Line - Single Lumen 09/13/17; 1313 (POA); jugular vein, external (neck), right; 16 gauge; pt uncomfortable w/ IV in neck; no longer indicated, removed per patient; 09/14/17; 200909/13/17 1313 by Kaleb Mack RN 09/14/172009 by Niharika Atkinson RN ETT Mask Ventilation: No t Attempted (0); ETT Type: Cuffed, Oral; ETT Size: 7.5 mm; Indirect: Video; Notes: Asleep, Pre-O2, RSI, Stylette; Attempts: 1; Laryngoscopy Grade: 1; ETT Placement Verified By: Auscultation, Capnometry, Visual; Secured at Teeth: 23 cm; Inserted by: Emely Barrett CRNA; Removal Date: 09/13/17; Removal Time: 171409/13/17 163 by Dandy Barrett CRNA 09/13/17 171 by Dandy Barrett CRNA (RETIRED) Peripheral IV Line - Single Lumen 09/13/17; 1634; median cubital vein (antecubital fossa), right; 16 gauge; (OSH ); lumen/catheter not patent, site symptomatic; 09/16/17; 0916 09/13/17 1634 by Parth High RN 09/16/17 0916 by Marquita Persaud RN documented in this encounter Social History Tobacco Use Types Packs/Day Years Used Date Smoking Tobacco: Former Sex and Gender Information Value Date Recorded Sex Assigned at Not on file Gender Identity Not on file Sexual Orientation Not on file documented as of this encounter OR Notes * Anesthesia Postprocedure Evaluation - Anam Wood MD - 09/13/2017 7:16 PM EDT [facility] of Anesthesiology Post-procedure Note Patient: Nain Kang Procedure Summary Date Anesthesia Start Anesthesia Stop Room / Location 09/13/17 1620 1727 [facility] / [facility] Procedure Diagnosis Surgeon Responsible Provider EGD, UPPER GI ENDOSCOPY (N/A Trunk) (GI Bleed per CR ) Marixa Vidales MD Gandevia, Vijay V, MD All Anesthesia Providers: Anesthesiologist: Anam Wood MD CERTIFIED SURGICAL FIRST ASSISTANT: Dandy Barrett CRNA Most Recent Vitals: 09/13/17 1845 BP: 95/56 Pulse: 67 Resp: 13 Temp: SpO2: 100% Pain Patient Location: PACU/[facility] Level of Consciousness: Conscious but Sleepy Pain Management: Satisfactory Analgesia PONV: None Cardiovascular Status: Hemodynamically Stable Respiratory Status: Stable Respiratory Status and Supplemental O2 (NC or FM) Postoperative Fluid Status: Intravascular EUvolemia Possible Anesthetic Complications: NONE apparent at time of evaluation Final Primary Anesthesia Type: General (The anesthetic type performed was the same as planned.) Comments: * Anesthesia Preprocedure Evaluation - Anam Wood MD - 09/13/2017 3:04 PM EDT Pre-Anesthesia Evaluation for: Nain Kang a 67 y.o. male. Procedure(s): EGD, UPPER GI ENDOSCOPY Patient Active Problem List Diagnosis ??? Acute upper GI bleed ??? Glossitis No past medical history on file. No past surgical history on file. Social History Substance Use Topics ??? Smoking status: Former Smoker ??? Smokeless tobacco: Not on file ??? Alcohol use Not on file History Drug Use Not on file No Known Allergies Medications: MAR and/or home medications have been reviewed. Physical Exam: Most Recent Vitals: 09/13/17 1305 Temp: 36.4 ??C (97.5 ??F) Body mass index is 22.52 kg/(m^2). Height: 167.6 cm (5' 6) Weight: 63.3 kg (139 lb 8.8 oz) Airway Assessment: Mallampati: II TM distance: >3 FB Neck ROM: full Cardiovascular Assessment: cardiovascular exam normal Pulmonary Assessment: (+) decreased breath sounds Dental Assessment: (+) upper dentures Misc Assessment: Patient is wearing No contact(s). IV access: Peripheral line Anesthesia Plan: ASA 4 general, with a(n) intravenous induction Medical record reviewed. Patient with recent GI bleed transferred from [facility]. Has been resuscitated. Complex medical history. Most significant for CAD s/p CABG Afib, h/o espohagectomy for cancer, alcoholic cirrhosis, and pancreatitis Overall he is a high risk patient for a low risk procedure Plan: GETA, possible post-procedure ventilation Region - Other Informed Consent: Anesthetic plan and risks discussed with patient. Plan discussed with CERTIFIED SURGICAL FIRST ASSISTANT and attending. PAT Staff Note documented in this encounter Plan of Treatment Not on file documented as of this encounter Visit Diagnoses Not on filedocumented in this encounter Administered Medications Inactive Administered Medications - up to 3 most recent administrations Medication Order MAR Action Action Date Dose Rate Site dexamethasone (DECADRON) injection PRN, Starting on Tue09/13/17 at 1650, Until Tue09/13/17 at 1727, Anesthesia Intra-op, Routine Given 09/13/2017 4:50 PM EDT 8 mg lactated Ringers infusion CONTINUOUS PRN, Starting on Tue09/13/17 at 1637, Until Tue09/13/17 at 1727, Anesthesia Intra-op New Bag 09/13/2017 4:23 PM EDT lidocaine (PF) (XYLOCAINE) 100 mg/5 mL (2 %) injection PRN, Starting on Tue09/13/17 at 1630, Until Tue09/13/17 at 1727, Anesthesia Intra-op, Routine Given 09/13/2017 4:30 PM EDT 80 mg ondansetron (ZOFRAN) injection PRN, Starting on Tue09/13/17 at 1650, Until e 09/13/17 at 1727, Nausea, Anesthesia Intra-op, Routine Given 09/13/2017 4:50 PM EDT 4 mg PHENYLephrine in NS (PF) (MIGUE-SYNEPHRINE) 0.8 mg/10 mL (80 mcg/mL) multi-dose injection Syrg PRN, Starting on Tue09/13/17 at 1639, Until Tue09/13/17 at 1727, Anesthesia Intra-op, Routine Given 09/13/2017 4:56 PM EDT 160 mcg Given 09/13/2017 4:54 PM EDT 80 mcg Given 09/13/2017 4:39 PM EDT 160 mcg propofol (DIPRIVAN) 10 mg/mL bolus injection (Anesthesia) PRN, Starting on Tue09/13/17 at 1630, Until Tue09/13/17 at 1727, Anesthesia Intra-op Given 09/13/2017 4:30 PM EDT 120 mg propofol (DIPRIVAN) infusion CONTINUOUS PRN, Starting on Tue09/13/17 at 1631, Until Tue09/13/17 at 1727, Anesthesia Intra-op, Routine New Bag 09/13/2017 4:31 PM EDT 150 mcg/kg/m in 57 mL/hr succinylcholine chloride (Quelicin) injection PRN, Starting on Tue09/13/17 at 1630, Until Tue09/13/17 at 1727, Anesthesia Intra-op, Routine Given 09/13/2017 4:30 PM EDT 100 mg documented in this encounter Care Teams Game Preserve Manager Relationship Specialty Start Date End Date Silvina Perdue MD [address] [place] [address] PCP - General 04/28/10 documented as of this encounter
--- OUTSIDE RECORDS SUMMARY | 2024-04-02 21:46 | XMS_ITS | Encounter Summary ---
Author Organization Formerly [facility] Address [facility] [place] [address] Care Team Providers Care Varnish Dipper Name Role Phone Silvina Perdue MD Primary Care Provider [phone] Reason for Visit * Auth/Cert Specialty Diagnoses / Procedures Referred By Viridiana richards Referred To Contact Diagnoses Acute upper GI bleed UPPER GIB GI Bleed per CR Procedures EGD, UPPER GI ENDOSCOPY Referral ID Status Reason Start Date Expiration Date Visits Re quested Visits Authorized [id number] 1 1 Encounter Details Date Type Department Care Team (Late st Contact Info) Description 09/18/2017 12:58 PM EDT - 09/18/2017 2:00 PM EDT [place] [address] Zain Sifuentes MD [facility] [place] [address] EGD, W CONTROL OF BLEEDING, ANY METHOD (WRVU 3.56) Social History Tobacco Use Types Packs/Day Years [...] Sign Reading Time Taken Comments Blood Pressure 93/57 09/20/2017 12:26 PM EDT Pulse 89 09/20/2017 12:26 PM EDT Temperature 36.9 ??C (98.4 ??F) 09/20/2017 12:26 PM E DT Respiratory Rate 19 09/20/2017 12:26 PM EDT Oxygen Saturation 96% 09/20/2017 12:26 PM EDT Inhaled Oxygen Concentration - - Weight 63.3 kg (139 lb 8.8 oz) 09/13/2017 1:10 P M EDT Height 167.6 cm (5' 6) 09/13/2017 1:10 PM EDT Body Mass Index 22.52 09/13/2017 1:10 PM EDT documented in this encounter Discharge Summaries * El Connors MD - 09/20/2017 1:40 PM EDT Discharge Summary Patient Name: Nain Kang Patient Age: 67 y.o. Language: Thai Race: White Ethnicity: Not nor Admit date: 09/13/2017 Discharge date and time: 09/20/2017 1:46 PM Attending Physician: El Connors MD Discharge Physician: EL CONNORS MD Follow-up Recommendations for Providers: - Please ensure no further signs or symptoms of GI bleeding - Patient should not have anticoagulation given his repeated bleeding with Eliquis (which is now discontinued) - Baby ASA was continued given patient's ASCVD history Inpatient Provider Contact Information: For questions regarding this document or issues relating to this hospitalization on the Medical Service, please contact your inpatient physician through the [facility] [employer] . Issues afterhours and on weekends will be handled by the Hospitalist staff on-call. Discharge Diagnoses (Hospital Problems) and Secondary Diagnoses (Chronic Problems): Active Hospital Problems Diagnosis ??? Iron deficiency anemia due [...] abuse disorder ??? Acute upper GI bleed Resolved Hospital Problems Diagnosis Date Resolved No resolved problems to display. There are no active non-hospital problems to display for this patient. Operations/Major Procedures: Operations: Procedure(s): EGD, UPPER GI ENDOSCOPY 09/13/2017 Procedure(s): EGD, W CONTROL OF BLEEDING, ANY METHOD 09/18/2017 Other Major Procedures: None History of Presentation: 67 y/o M with PMHx CAD s/p 4v CABG on ASA, Afib on Eliquis, DM2 c/b neuropathy, Etoh use, pancreatitis w/ pseudocyst n 2003, COPD, gastric cancer (s/p ?partial gastrectomy in 2000, c/b surgical flap infection and removal of 4 left ribs), back pain on chronic opiates??who presents to [facility] today withupper GI bleed. ?? He was dropped off to [facility] by a friend, and is a poor historian. He reported fatigue and feeling unwell for approx 1 month, associated with generalized discomfort, toña in abdomen. Hef black tarry stool at home on 09/12 and a month of feeling unwell and on arrival at OSH was reportedly pale and hypotensive. He had been taking Tylenol, denied NSAID use, and had significant Etoh use of 6 pack 12oz beer, and 2 shots primo, daily. ?? His labs in ED there showed Hb 6.6 and Cr 2.56 (baseline 1.0). He had an episode of hematemesis in the [facility] ED, and received Protonix, 4uPRBC and FFP. He was transferred [facility] and received Tranexamic acid en route. ?? In [facility] ICU (09/13-09/14), he was hemodynamically stable. He underwent EGD 09/13 which revealed stomach full of blood and clot, no ulcer or AVM, no evidence of portal hypertension. He received 1uPRBC more on 09/13 for H/H drop to 7.7, and responded extremely well to 10.2. Per discussion with GI, his Protonix was transitioned from infusion to BID, and his diet was advanced to full liquid as of 09/14. He remained hemodynamically stable, so is being transitioned to hospital medicine. He had u/s abdomen ordered which is not done yet, and his eliquis continued to be held at time of transition. ?? Of note, admission H&P suggested he had esophageal cancer s/p esophageogastrectomy; however perGI, it seems he had gastric cancer s/p partial gastrectomy, and on EGD, his esophagus was intact. Hospital Course: #UGIB, non-variceal #Hypovolemic/hemorrhagic shock #H/o gastric cancer s/p ? Partial gastrectomy in 2000 Was admitted to the ICU and had an EGD which showed a stomach full of blood and clot without evidence of ulcer or AVM or portal HTN. He required a total of 4 units of pRBC at the OSH and an additional 1 u pRBC in the ICU. He was started on a PPI BID. His diet was slowly advanced and whlie initiallyheld, his eliquis and ASA were restarted. Unfortunately, he promptly started bleeding again after his Eliquis was re-started, and so EGD was re-done. A possible lesion was addressed, and he had no further overt signs of bleeding. ASA was restarted without issue although Eliquis was held indefinitely. The patient understands that his risk of stroke is increased with no anticoagulation, but he accepts this risk given that he will likely continue to bleed if given this drug. He was discharged homewith PCP follow up. The patient was given PPI PO on discharge as well as sucralfate to continue hisrecovery. #Chronic EtOH and tobacco use He received IV thiamine/folate replacement. A RUQ U/S showed fatty liver without cirrhosis. Thiamine PO was continued on discharge. ?? #NHI #Hyperchloremic hypernatremia NHI rapidly resolved with fluid and blood transfusions. His home lasix was held. His electrolytes normalized as he advanced his diet. ?? # Afib, on eliquis Eliquis was initially held but was restarted with resumption of bleeding. His metoprolol tartate was decreased to 12.5mg PO BID, and the Eliquis was discontinued. ?? # DMII His metformin was held and he was started on an insulin sliding scale initially. The insulin was discontinued given that the patient did not want it and minimal coverage was being given. His home gabapentin 300mg TID was continued for peripheral neuropathy. ?? # CAD with h/o CABG # Possible chronic CHF, unclear systolic/diastolic ASA was held given GI bleed, but eventually restarted without issue. His home lipitor 10mg daily was continued. His home lasix was held initially given concern for HD instability and his NHI. Furosemide was restarted on discharge for LE edema. ?? # COPD # Depression # Chronic back pain He was continued on his home inahlers, home wellbutrin, and home pain medications. Vital Signs at Discharge: BP: 93/57, Heart Rate: 89, Temp: 36.9 ??C (98.4 ??F), Resp: 19, BMI (Calculated): 22.52 Height: 167.6 cm (5' 6) (09/13/17 1310) Weight: 63.3 kg (139 lb 8.8 oz) (09/13/17 1310) Functional and Cognitive Status: Good, will use walker Important Studies and Lab Data: Labs: Recent Labs 09/20/17 0609/19/17 0534 09/18/17 0645 09/18/17 0148 WBC 12.7* 10.0* -- 10.6* HGB 7.5* 8.0* 8.3* 6.9* HCT 23.3* 23.4* 25.5* 21.1* PLATELET 188 165 -- 132* Recent Labs 09/20/17 0609/19/17 0534 09/18/17 0148 NA 138 143 140 K 4.1 4.2 4.8 CL 111* 113* 110* CO2 19* 19* 20* BUN 19 21* 33* CREATININE 0.72* 0.74* 0.71* No results for input(s): AST, ALT, ALKPHOS, BILITOT, BILIDIR in the last 168 hours. Recent Labs 09/20/17 0609/19/17 0534 09/18/17 0148 09/14/17 0123 CALCIUM 8.1* 7.9* 8.3* < > 7.7* MAGNESIUM -- -- -- -- 1.15* PHOS -- -- -- -- 4.2 < > = values in this interval not displayed. No results for input(s): CK, TROPONINT in the last 168 hours. No results for input(s): PT, PTT, INR in the last 168 hours. Studies: Abd U/S 09/14 ??Homogeneous mild increase in overall hepatic parenchymalechotexture without focal lesion nor contour??nodularity consistent with fattyinfiltration with focal sparing at the??gallbladder fossa.The visualized hepatic veins, visualized portal??veins, and hepatic artery arepatent with normal color and spectral??wave forms.Trace pericholecystic ascites. Small right pleural??effusion. EGD 09/13 Impression: - Esophagogastric landmarks identified. Red blood in the distal esophagus. LA Grade A esophagitis. Hematin (altered??blood/trffib-yplgny-mwiy material) in the gastric fundus.Blood in the entire examined duodenum. No specimens collected. Recommendation: - continue IV PPI. Discontinue octreotide/ceftriaxone??as no evidence of portal hypertension was seen. Hb Q8 hours. Active type and screening EGD 09/18 Impression: ? - Normal esophagus. - Normal examined duodenum. Altered gastric anatomy from partial gastric resection. No bleeding initially and no blood in stomach. Oozing from two sites in proximal stomach when U turn was performed both treated with APC. Not clear if these were small AVM's that were provoked to bleed by scope or merely scope trauma in the context of anticoagulation Recommendation: ? - Hold anticoagulation for the next??several days - The attending physician listed ??above was present for the entire procedure. Pending Studies and Lab Data: None Discharge Conditions/Prognosis: Stable, expected to continue to recover Discharge to: Home with VNA Updated Allergies/ADRs: No Known Allergies Immunizations Given this Hospitalization: Immunization History Administered Date(s) Administered ??? Influenza Vaccine, Whole 06/06/2007 ??? Pneumococcal Polyvalent 23 06/06/2005 Discharge Medications: Your Medications Notice Some of the medications listed here do not show instructions, such as how often to take the medication. Ask your doctor or nurse how to use these medications. Specifically ask about these and similar medications: - albuterol-ipratropium (COMBIVENT) 18-103 mcg/Actuation inhaler - Ferrous Sulfate 325 mg (65 mg Iron) CpSR - metFORMIN (GLUCOPHAGE) 500 mg tablet - nitroGLYcerin (NITROSTAT) 0.4 mg SL tablet New Medications Dose Details aspirin 81 mg Tbec Take 1 tablet by mouth daily. Start taking on: 09/21/2017 81 mg Quantity: 30 tablet Refills: 3 methyl salicylate-menthol 15-10 % Crea Commonly known as: BENGAY Apply 1 Application topically 2 times daily. 1 Application Quantity: 30 g Refills: 0 nicotine 21 mg/24 hr Pt24 Commonly known as: NICODERM CQ Place 1 patch onto the skin daily. Start taking on: 09/21/2017 1 patch Quantity: 28 patch Refills: 0 sucralfate 100 mg/mL Susp Commonly known as: CARAFATE Take 10 mLs by mouth 4 times daily. 1 g Quantity: 420 mL Refills: 0 thiamine Commonly known as: Vitamin B-1 Take 1 tablet by mouth daily. 100 mg Quantity: 30 tablet Refills: 3 Continued medications with new dosing Dose Details atorvastatin 10 mg Tab Commonly known as: LIPITOR Take 10 mg by mouth daily. What changed: Another medication with the same name was removed. Continue taking this medication, and follow the directions you see here. 10 mg Refills: 0 buPROPion 150 mg Tb12 Commonly known as: WELLBUTRIN SR or ZYBAN Take 1 tablet by mouth 2 times daily. What changed: See the new instructions. 150 mg Quantity: 60 tablet Refills: 3 metoprolol tartrate 25 mg Tab Commonly known as: LOPRESSOR Take 0.5 tablets by mouth 2 times daily. What changed: - medication strength - how much to take 12.5 mg Quantity: 30 tablet Refills: 3 * pantoprazole 40 mg Tbec Commonly known as: PROTONIX Take 40 mg by mouth daily. What changed: Another medication with the same name was added. Make sure you understand how and when to take each. 40 mg Refills: 0 * pantoprazole 40 mg Tbec Commonly known as: PROTONIX Take 1 tablet by mouth daily. What changed: You were already taking a medication with the same name, and this prescription was added. Make sure you understand how and when to take each. 40 mg Quantity: 90 tablet Refills: 3 * Notice: This list has 2 medication(s) that are the same as other medications prescribed for you. Read the directions carefully, and ask your doctor or other care provider to review them with you. Continued medications, unchanged Dose Details cholecalciferol (Vitamin D3) 2,000 unit Tab Take 2,000 Units by mouth daily. 2000 Units Refills: 0 COMBIVENT 18-103 mcg/actuation Aero ?nk?wn!?? Generic drug: albuterol-ipratropium Refills: 0 Ferrous Sulfate 325 mg (65 mg iron) Cpsr ?nk?wn!?? Refills: 0 folic acid 1 mg Tab Commonly known as: FOLVITE 1mg, PO, QD Refills: 0 furosemide 40 mg Tab Commonly known as: LASIX Take 40 mg by mouth See Admin Instructions. 80mg in the morning, 40mg at noon 40 mg Refills: 0 gabapentin 300 mg Cap Commonly known as: NEURONTIN Take 300 mg by mouth 3 times daily. 300 mg Refills: 0 HYDROcodone-acetaminophen 10-325 mg Tab Commonly known as: NORCO Take 1 tablet by mouth 2 times daily. 1 tablet Refills: 0 metFORMIN 500 mg Tab Commonly known as: GLUCOPHAGE ?nk?wn!?? Refills: 0 nitroGLYcerin 0.4 mg Subl Commonly known as: NITROSTAT ?nk?wn!?? Refills: 0 SPIRIVA WITH HANDIHALER 18 mcg Cpdv Inhale 18 mcg into the lungs daily. Generic drug: tiotropium 18 mcg Refills: 0 STOPPED Medications atenolol 100 mg Tab Commonly known as: TENORMIN CIS FREE TEXT MED clotrimazole 10 mg Troc Commonly known as: MYCELEX ELIQUIS 5 mg Tab Generic drug: apixaban FLOVENT HFA 110 mcg/actuation Hfaa Generic drug: fluticasone lansoprazole 30 mg Cpdr Commonly known as: PREVACID lisinopril 10 mg Tab Commonly known as: PRINIVIL;ZESTRIL Smoking Status at Discharge: History Smoking Status ??? Former Smoker ??? Types: Cigarettes Smokeless Tobacco ??? Never Used Instructions Given to Patient at Discharge: Patient Instructions Instructions on Discharge to Home Why you were hospitalized - gastrointestinal bleed Call your doctor or seek medical attention if you develop the following - chest pain, shortness of breath, fever, cough, weakness in an arm or leg Activity level - no restrictions Diet - no change in previous diet Driving - as before hospitalization Shower/Bath - permitted Changes in Your Medications: - Metoprolol tartrate was decreased to 12.5mg by mouth twice daily - Aspirin 81mg by mouth daily can be continued - Eliquis was discontinued -- please stop this medication - Bupropion was added to your list - Thiamine was added to your list - Protonix was added to your list and is VERY important Follow-up: Primary Care Provider appointment with Dr. Perdue TuesdaySeptember 28 10:30pm Your Inpatient Doctor: El Connors MD Your Primary Care Provider: Silvina Perdue MD [phone] For questions regarding this document or issues relating to this hospitalization on the Medical Service, please contact your inpatient physician through the [facility] [employer] . Issues afterhours and on weekends will be handled by the Hospitalist staff on-call. General Instructions None Future Appointments and Orders Future Orders Complete By Expires Referral to Home Health - at DISCHARGE [[id number] CPT(R)] As directed Process Instructions: Scheduling Instructions: Comments: DOCUMENTATION FOR VNA SERVICES (INCLUDING THOSE PATIENTS WITH MEDICARE COVERAGE REQUIRING HOME VNA SERVICES AND/OR HOSPICE SERVICES) PATIENT'S LOCATION: [address] [facility] [address] (home) Cell: Telephone Information: Fuse Cup Expander's Name: self In discussion with the attending physician, it is certified that this patient is under their care and that they, or a Nurse Practitioner,Clinical Nurse specialist or Physician Licensed Practical Nurse Instructor who is working directly with them, had a face to face encounter that meets the physician face to face encounter requirements with this patient on 09/20/17 The encounter with the patient was in whole, or in part, for the following medical condition, whichis the primary reason for home health care services: Weakness, deconditioning after life-threatening gastrointestinal bleed, chronic congestive heart failure In discussion with the provider, it is certified that, based on their findings, the following services are medically necessary for home health services. To provide the following care/treatments with the clinical findings supporting the need for services as follows: HOME CARE ORDERS: RN ORDERS:Assess wound or incision, vital signs, cardiopulmonary status, nutrition, hydration, elimination, meds effectiveness and management; reinforce education re health issues PT ORDERS: Continue rehab for endurance, gait stability and strength with mobility and transfers. Home safety evaluation. Home exercise program if appropriate. OT: assess and continue rehab for managing ADL's. HOME HEALTH CARE AGENCY: [facility] PHONE: [phone] FAX: [phone] Start of care: 24-48 hours post discharge FOR MEDICARE ONLY: In discussion with the attending physician, it is certified that the clinical findings support thatthis patient is homebound because absences from home require considerable and taxing effort due to:fluid vol overload with BLE edema requiring walker to ambulate to maintain balance as well as chronic back pain and on chronic opioids. Unable to navigate community surfaces without walker and assistance. Please note that any additional orders needs or changes will need to be obtained from this patient's PCP: MD Néstor [address] / [facility] [id number] All A agencies which cover the area of patient's residence have been reviewed, either verbally naye writing, and patient/family have chosen the home health care agency noted Questions: Agency name and contact information: [facility] Patient location post discharge: home What services are requested: Registered Nurse Physical Therapy Occupational Therapy Start date: Responsible MD post discharge contact info: PCP Walker standard [[id number] Custom] As directed Process Instructions: Scheduling Instructions: Comments: Nain Kang [address] [address] [facility] [id number] (home) Telephone Information: Diagnosis:Fluid vol overload with BLE edema requiring walker r/t Unsteady gait. Chronic back pain and on opioids requiring walker to safely ambulate. Patient's: Hgt: 5'6 Wgt: 139 lbs VENDOR: [facility] Ordering: Front wheel walker Deliver to pt's hospital room #: 148 chiara Questions: Vendor Name/Contact information: [facility] Discharge References/Attachments None documented in this encounter Discharge Instructions * Patient Instructions* El Connors MD - 09/16/2017 2:40 PM EDT Instructions on Discharge to Home Why you were hospitalized - gastrointestinal bleed Call your doctor or seek medical attention if you develop the following - chest pain, shortness of breath, fever, cough, weakness in an arm or leg Activity level - no restrictions Diet - no change in previous diet Driving - as before hospitalization Shower/Bath - permitted Changes in Your Medications: - Metoprolol tartrate was decreased to 12.5mg by mouth twice daily - Aspirin 81mg by mouth daily can be continued - Eliquis was discontinued -- please stop this medication - Bupropion was added to your list - Thiamine was added to your list - Protonix was added to your list and is VERY important Follow-up: Primary Care Provider appointment with Dr. Perdue TuesdaySeptember 28 10:30pm Your Inpatient Doctor: El Connors MD Your Primary Care Provider: Silvina Perdue MD [phone] For questions regarding this document or issues relating to this hospitalization on the Medical Service, please contact your inpatient physician through the [facility] [employer] . Issues afterhours and on weekends will be handled by the Hospitalist staff on-call. documented in this encounter Medications at Time of Discharge Medication Sig Dispensed Refills Start Date End Date methyl salicylate-menthol (BENGAY) 15-10 % Cream Apply [...] by mouth 3 times daily. 0 05/23/2017 HYDROcodone-acetamino phen (NORCO) 10-325 mg Tablet Take 1 tablet [...] nitroGLYcerin (NITROSTAT) 0.4 mg SL tablet 10/03/2009 aspirin 81 mg Tablet, Delayed Release (E.C.) Take 1 tablet by mouth daily. 30 tablet 3 09/21/2017 04/16/2021 sucralfate (CARAFATE) 100 mg/mL Suspension Take 10 mLs by mouth 4 times daily. 420 mL 09/20/2017 04/16/2021 pantoprazole (PROTONIX) 40 mg Tablet, Delayed Release (E.C.) Take 1 tablet by mouth daily. 90 tablet 3 09/20/2017 04/16/2021 pantoprazole (PROTONIX) 40 mg Tablet, Delayed Release (E.C.) Take 40 mg by mouth daily. 0 08/29/2017 04/16/2021 documented as of this encounter Progress Notes * Jake Carlson RN - 09/20/2017 2:52 PM EDT Pt alert and oriented, cooperative with medication regimen. Being discharged home today with VNA services. AVS reviewed with pt, questions encouraged and answered. Belongings gathered per pt. Friend picked pt up. Safety maintained. VNA services ([facility]) called to give report, left a message on voicemail. * El Connors MD - 09/20/2017 1:49 PM EDT Hospital Medicine - Attending Day of Discharge Documentation Discharge diagnosis Active Hospital Problems Diagnosis ??? Iron deficiency anemia due to chronic blood loss ??? ETOH abuse ??? History of GI tract cancer ??? Paroxysmal atrial fibrillation ??? History of ASCVD ??? Chronic back pain ??? Type 2 diabetes mellitus with neurologic complication, without long-term current use of insulin ??? Pancreatitis c/b pseudocyst/cyst 2004 ??? Depression ??? COPD (chronic obstructive pulmonary disease) ??? Tobacco abuse disorder ??? Acute upper GI bleed Resolved Hospital Problems Diagnosis Date Resolved No resolved problems to display. Secondary Issues There are no active non-hospital problems to display for this patient. I have personally seen and examined the patient and they are ready for discharge. I spent >30 minutes (Day of Discharge Code 62611) involved in the final examination of the patient, discussion of the hospital stay, instructions for continuing care to all relevant caregivers, and preparation of discharge records, prescriptions and referral forms. Plans ? Discharge to home with VNA ? Follow-up scheduled with PCP ? Please see the Discharge Summary for complete details of any medication changes and additional plans. * Ange Slaughter RN - 09/20/2017 1:05 PM EDT Patient to dc now The patient/c s s representative has been provided a list of Home Health Agencies/DME vendors which servetheir preferred geographic area. A letter describing our affiliations was reviewed with them and they were educated about their right to choose where referrals are placed. Patient requests referral to: [facility] Expected date of discharge:Now. Referral routed to the Manager Hris for matching with agency/vendor and to provide any required information. * El Connors MD - 09/19/2017 2:18 PM EDT Hospital Medicine Attending Daily Progress Note Admit Date: 09/13/2017 ( Hospital Day 6 days ) Active Hospital Problems Diagnosis ??? Iron deficiency anemia due [...] abuse disorder ??? Acute upper GI bleed Resolved Hospital Problems Diagnosis Date Resolved No resolved problems to display. ASSESSMENT: 67 yo M with h/o CAD s/p 4v CABG on ASA, afib (previously on Eliquis), DMII complicated by neuropathy, EtOH use, pancreatitis with pseudocyst in 2003, COPD, gastric cancer s/p partial gastrectomy in 2000 complicated by surgical flap infection and removal of 4 left ribs, back pain on chronic opiates, admitted with UGIB. EGD initially showed evidence of esophagitis but no clear bleeding source. There was no evidence of portal HTN on EGD so octreotide/CTX were discontinued on 09/13 and Abd U/S shows fatty infiltration without cirrhosis. The patient had his ASA/Eliquis restarted, but had another bleeding episode on 09/18 requiring EGD with intervention. I will advance his diet today and resume ASA but hold apixaban indefinitely. PLAN: #UGIB, non-variceal #Hypovolemic/hemorrhagic shock: resolved #H/o gastric cancer s/p ? Partial gastrectomy in 2000 - Unknown baseline Hgb; Hgb at OSH was 6.6, s/p 5u pRBC initially - Another 1U PRBCs given 09/18 - Pantoprazole IV BID - Holding Eliquis indefinitely, patient understands that this increases the risk of stroke by a fewpercentage points per year but that it is very risky given his repeated bleeding on this drug - Restart ASA for CAD - monitor Hgb daily - Carb controlled diet - Appreciate GI consult recs #Chronic EtOH and tobacco use - s/p IV thiamine/folate replacement - Cont high dose oral replacement after IV replacement - nicotine patch for tobacco use - RUQ U/S shows fatty liver without cirrhosis #NHI #Hyperchloremic hypernatremia - Cont to monitor daily BMP - cont gentle IVF, can d/c as patient taking in more PO - avoid nephrotoxins #afib - Eliquis discontinued, can re-address as an outpatient - metoprolol tartrate 12.5mg BID given hypotension #DMII - A1C within diabetic range - CHO controlled diet level 3 - cont home gabapentin 300mg TID for neuropathy #CAD with h/o CABG - ASA 81mg PO QD, holding for now but will resume in near future - cont home lipitor 10mg daily - Will restart home furosemide when ongoing stability achieved - Hold anti-hypertensives #COPD #depression #chronic back pain - cont home inhalers (tiotropium, duonebs) - cont home wellbutrin - oxycodone PRN for back pain # PPx: SCDs in context of GI bleed EL CONNORS MD TEAM/PAGER: [id number] Subjective/24hr events: - Hgb stable - No further bleeding ROS: Patient denies fevers, chills, nausea/vomiting, diarrhea/constipation, sob/cp, dysuria. Vitals: Last value Range last 24 hrs Temperature Temp: 36.9 ??C (98.4 ??F) Temp: [36.3 ??C (97.3 ??F)-36.9 ??C (98.4 ??F)] Heart Rate Heart Rate: 81 Heart Rate: [67-88] Blood Pressure BP: 109/67 BP: (90-111)/(50-67) Respiratory Rate Resp: 18 Resp: [14-22] SpO2 SpO2: 98 % SpO2: [97 %-100 %] Intake/Output Summary (Last 24 hours) at 09/19/17 1418 Last data filed at 09/19/17 0546 Gross per 24 hour Intake 720 ml Output 1425 ml Net -705 ml EXAM GEN: NAD HEENT: at/nc, anicteric, op clear CV: rrr, no m/r/g PULM: cta b/l, comfortable ABD: soft, nt/nd, nabs, surgical scars EXT: no edema BACK: Non tender today Neuro: Alert/oriented/appropriate Skin: no rash LABS: Reviewed in eDH. Remarkable for the following: Recent Labs 09/19/17 0534 09/18/17 0645 09/18/1714709/17/17 0450 WBC 10.0* -- 10.6* -- 11.1* HGB 8.0* 8.3* 6.9* < > 8.9* HCT 23.4* 25.5* 21.1* < > 28.4* PLATELET 165 -- 132* -- 138* < > = values in this interval not displayed. Recent Labs 09/19/17 0534 09/18/1714709/17/17 0450 NA 143 140 142 K 4.2 4.8 4.6 CL 113* 110* 111* CO2 19* 20* 19* BUN 21* 33* 29* CREATININE 0.74* 0.71* 0.78* GLUCOSE 101 108 81 CALCIUM 7.9* 8.3* 8.0* No results for input(s): AST, ALT, ALKPHOS, BILITOT, BILIDIR in the last 72 hours. MICRO: No results for input(s): URINECULTURE in the last 720 hours. No results for input(s): BLOODCX in the last 720 hours. STUDIES: 09/14/17 -- Abd U/S Homogeneous mild increase in overall hepatic parenchymalechotexture without focal lesion nor contour nodularity consistent with fattyinfiltration with focal sparing at the gallbladder fossa.The visualized hepatic veins, visualized portal veins, and hepatic artery arepatent with normal color and spectral wave forms.Trace pericholecystic ascites. Small right pleural effusion. 09/18/17 -- EGD Impression: ? - Normal esophagus. - Normal examined duodenum. Altered gastric anatomy from partial gastric resection. No bleeding initially and no blood in stomach. Oozing from two sites in proximal stomach when U turn was performed both treated with APC. Not clear if these were small AVM's that were provoked to bleed by scope or merely scope trauma in the context of anticoagulation Recommendation: ? - Hold anticoagulation for the next??several days - The attending physician listed ??above was present for the entire procedure. Medications: Scheduled Meds: ??? aspirin 81 mg Oral Daily ??? pantoprazole 40 mg Intravenous BID ??? metoprolol 12.5 mg Oral 2 times per day ??? multivitamin with folic acid 1 tablet Oral Daily ??? methyl salicylate-menthol Topical (Top) BID ??? acetaminophen 1,000 mg Oral Q6H HOMER ??? senna-docusate 1 tablet Oral BID ??? nicotine 21 mg Transdermal Daily And ??? Patch Verification 1 patch Transdermal BID And ??? nicotine 1 patch Transdermal Daily ??? buPROPion 150 mg Oral BID ??? gabapentin 300 mg Oral TID ??? folic acid 1 mg Oral Daily ??? thiamine 250 mg Intravenous Daily Followed by ??? [START ON 09/22/2017] thiamine 100 mg Intravenous Daily ??? atorvastatin 10 mg Oral QPM ??? tiotropium 18 mcg Inhalation Daily Continuous Infusions: ??? sodium chloride 0.9% PRN Meds:.carboxymethylcellulose, calcium carbonate, lactulose, bisacodyl, oxyCODONE, sodium chloride 0.9%, ipratropium-albuterol * El Connors MD - 09/18/2017 2:33 PM EDT Hospital Medicine Attending Daily Progress Note Admit Date: 09/13/2017 ( Hospital Day 5 days ) Active Hospital Problems Diagnosis ??? Iron deficiency anemia due [...] abuse disorder ??? Acute upper GI bleed Resolved Hospital Problems Diagnosis Date Resolved No resolved problems to display. ASSESSMENT: 67 yo M with h/o CAD s/p 4v CABG on ASA, afib on Eliquis, DMII complicated by neuropathy, EtOH use,pancreatitis with pseudocyst in 2003, COPD, gastric cancer s/p partial gastrectomy in 2000 complicated by surgical flap infection and removal of 4 left ribs, back pain on chronic opiates, admitted with UGIB. EGD initially showed evidence of esophagitis but no clear bleeding source. There was no evidence of portal HTN on EGD so octreotide/CTX were discontinued on 09/13 and Abd U/S shows fatty infiltration without cirrhosis. The patient had his ASA/Eliquis restarted, but had another bleeding episode this AM. EGD showing possible bleeding source and GI attempted to address it. Given his repeated b leeding, it seems reasonable at this time to hold eliquis. I will re-start ASA at some point in thefuture, but for now will hold this medication as well until his bleeding has definitely stopped. PLAN: #UGIB, non-variceal #Hypovolemic/hemorrhagic shock: resolved #H/o gastric cancer s/p ? Partial gastrectomy in 2000 - Unknown baseline Hgb; Hgb at OSH was 6.6, s/p 5u pRBC initially - Another 1U PRBCs given 09/18 - Pantoprazole IV BID - restart eliquis 09/15, cont hold ASA - monitor Hgb daily - Carb control diet - Appreciate GI consult recs #Chronic EtOH and tobacco use - s/p IV thiamine/folate replacement - Cont high dose oral replacement - nicotine patch for tobacco use - RUQ U/S shows fatty liver without cirrhosis #NHI #Hyperchloremic hypernatremia - Cont to monitor daily BMP - cont gentle IVF, can d/c as patient taking in more PO - avoid nephrotoxins #afib - Eliquis discontinued, can re-address as an outpatient - metoprolol tartrate 12.5mg BID given hypotension #DMII - A1C within diabetic range - CHO controlled diet level 3 - cont home gabapentin 300mg TID for neuropathy #CAD with h/o CABG - ASA 81mg PO QD, holding for now but will resume in near future - cont home lipitor 10mg daily - Will restart home furosemide when ongoing stability achieved - Hold anti-hypertensives #COPD #depression #chronic back pain - cont home inhalers (tiotropium, duonebs) - cont home wellbutrin - oxycodone PRN for back pain # PPx: SCDs in context of GI bleed EL CONNORS MD TEAM/PAGER: [phone] Subjective/24hr events: - Hgb dropped, received 1u PRBCs - Hematemesis this AM - ~200cc ; bebeto held, ASA held - Endoscopy done, likely friable mucosa +/- AVM - report pending ROS: Patient denies fevers, chills, nausea/vomiting, diarrhea/constipation, sob/cp, dysuria. Vitals: Last value Range last 24 hrs Temperature Temp: 36.3 ??C (97.3 ??F) Temp: [35.7 ??C (96.3 ??F)-36.9 ??C (98.5 ??F)] Heart Rate Heart Rate: 71 Heart Rate: [62-82] Blood Pressure BP: 93/50 BP: (77-116)/(39-72) Respiratory Rate Resp: 14 Resp: [14-21] SpO2 SpO2: 99 % SpO2: [97 %-100 %] Intake/Output Summary (Last 24 hours) at 09/18/17 1433 Last data filed at 09/18/17 1355 Gross per 24 hour Intake 1671 ml Output 1075 ml Net 596 ml EXAM GEN: NAD HEENT: at/nc, anicteric, op clear CV: rrr, no m/r/g PULM: cta b/l, comfortable ABD: soft, nt/nd, nabs, surgical scars EXT: no edema BACK: Non tender today Neuro: Alert/oriented/appropriate Skin: no rash LABS: Reviewed in eDH. Remarkable for the following: Recent Labs 09/18/17 0645 09/18/17 0148 09/17/17 2348 09/17/17 0450 09/16/17 0115 WBC -- 10.6* -- 11.1* 11.0* HGB 8.3* 6.9* 7.3* 8.9* 8.6* HCT 25.5* 21.1* 23.6* 28.4* 26.7* PLATELET -- 132* -- 138* 121* Recent Labs 09/18/17 0148 09/17/17 0450 09/16/17 0115 NA 140 142 142 K 4.8 4.6 4.2 CL 110* 111* 111* CO2 20* 19* 23 BUN 33* 29* 44* CREATININE 0.71* 0.78* 0.90 GLUCOSE 108 81 101 CALCIUM 8.3* 8.0* 8.2* No results for input(s): AST, ALT, ALKPHOS, BILITOT, BILIDIR in the last 72 hours. MICRO: No results for input(s): URINECULTURE in the last 720 hours. No results for input(s): BLOODCX in the last 720 hours. STUDIES: 09/14/17 -- Abd U/S Homogeneous mild increase in overall hepatic parenchymalechotexture without focal lesion nor contour nodularity consistent with fattyinfiltration with focal sparing at the gallbladder fossa.The visualized hepatic veins, visualized portal veins, and hepatic artery arepatent with normal color and spectral wave forms.Trace pericholecystic ascites. Small right pleural effusion. 09/18/17 -- EGD - Pending report Medications: Scheduled Meds: ??? [Aug] pantoprazole 40 mg Intravenous BID ??? [AUG Hold] metoprolol 12.5 mg Oral 2 times per day ??? [AUG Hold] multivitamin with folic acid 1 tablet Oral Daily ??? [AUG Hold] methyl salicylate-menthol Topical (Top) BID ??? [AUG Hold] acetaminophen 1,000 mg Oral Q6H HOMER ??? [AUG Hold] senna-docusate 1 tablet Oral BID ??? [AUG Hold] nicotine 21 mg Transdermal Daily And ??? [AUG Hold] Patch Verification 1 patch Transdermal BID And ??? [AUG Hold] nicotine 1 patch Transdermal Daily ??? [AUG Hold] buPROPion 150 mg Oral BID ??? [AUG Hold] gabapentin 300 mg Oral TID ??? [AUG Hold] folic acid 1 mg Oral Daily ??? [AUG Hold] thiamine 250 mg Intravenous Daily Followed by ??? [AUG Hold] thiamine 100 mg Intravenous Daily ??? [AUG Hold] atorvastatin 10 mg Oral QPM ??? [AUG Hold] tiotropium 18 mcg Inhalation Daily Continuous Infusions: ??? [AUG Hold] sodium chloride 0.9% 100 mL/hr (09/18/17 1044) ??? [AUG Hold] sodium chloride 0.9% PRN Meds:.[AUG Hold] calcium carbonate, [AUG Hold] lactulose, [AUG Hold] bisacodyl, [AUG Hold] oxyCODONE, [AUG Hold] sodium chloride 0.9%, [AUG Hold] ipratropium-albuterol * El Connors MD - 09/17/2017 2:33 PM EDT Hospital Medicine Attending Daily Progress Note Admit Date: 09/13/2017 ( Hospital Day 4 days ) Active Hospital Problems Diagnosis ??? Iron deficiency anemia due [...] abuse disorder ??? Acute upper GI bleed Resolved Hospital Problems Diagnosis Date Resolved No resolved problems to display. ASSESSMENT: 67 yo M with h/o CAD s/p 4v CABG on ASA, afib on Eliquis, DMII complicated by neuropathy, EtOH use,pancreatitis with pseudocyst in 2003, COPD, gastric cancer s/p partial gastrectomy in 2000 complicated by surgical flap infection and removal of 4 left ribs, back pain on chronic opiates, admitted with UGIB. EGD showed evidence of esophagitis but no clear bleeding source. There was no evidence of portal HTN on EGD so octreotide/CTX were discontinued on 09/13 and Abd U/S shows fatty infiltration without cirrhosis. He is doing well with Eliquis, and so ASA has been restarted as well. His back pain seems musculoskeletal, and I will try bengay per patient preference along with scheduled APAP. He is hypotensive, but asymptomatic and he is showing peripheral pitting edema in LE which is worsening. He confirmed that this is what happens when he missed his furosemide doses, and so I will trial him on some furosemide tomorrow. PLAN: #UGIB, non-variceal #Hypovolemic/hemorrhagic shock: resolved #H/o gastric cancer s/p ? Partial gastrectomy in 2000 - Unknown baseline Hgb; Hgb at OSH was 6.6, s/p 5u pRBC now ~10 (lasst transfusion 09/13) - Pantoprazole IV BID, will switch to oral - restart eliquis 09/15, cont hold ASA - monitor Hgb daily - Carb control diet - Appreciate GI consult recs #Chronic EtOH and tobacco use - s/p IV thiamine/folate replacement - Cont high dose oral replacement - nicotine patch for tobacco use - RUQ U/S shows fatty liver without cirrhosis #NHI #Hyperchloremic hypernatremia - Cont to monitor daily BMP - cont gentle IVF, can d/c as patient taking in more PO - avoid nephrotoxins #afib, on eliquis - Eliquis 5mg BID - metoprolol tartrate 25mg BID given hypotension #DMII - not diabetic per patient - Check HbA1c - D/C ISS for now - CHO controlled diet level 3 - cont home gabapentin 300mg TID #CAD with h/o CABG - ASA 81mg PO QD - cont home lipitor 10mg daily - Will restart home furosemide at half dose 40mg PO QAM, 20mg PO QNoon - Hold anti-hypertensives #COPD #depression #chronic back pain - cont home inhalers (tiotropium, duonebs) - cont home wellbutrin - oxycodone PRN for back pain # PPx: SCDs in context of GI bleed EL CONNORS MD TEAM/PAGER: [id number] Subjective/24hr events: - Hgb stable,has severe low back pain/spasm - Patient says that he isn't diabetic and would like to stop insulin - Low BP this morning, but asymptomatic ROS: Patient denies fevers, chills, nausea/vomiting, diarrhea/constipation, sob/cp, dysuria. Vitals: Last value Range last 24 hrs Temperature Temp: 36.3 ??C (97.3 ??F) Temp: [36.3 ??C (97.3 ??F)-37 ??C (98.6 ??F)] Heart Rate Heart Rate: 76 Heart Rate: [65-86] Blood Pressure BP: (!) 87/53 BP: (86-112)/(53-69) Respiratory Rate Resp: 20 Resp: [16-20] SpO2 SpO2: 99 % SpO2: [96 %-99 %] Intake/Output Summary (Last 24 hours) at 09/17/17 1433 Last data filed at 09/17/17 0800 Gross per 24 hour Intake 0 ml Output 650 ml Net -650 ml EXAM GEN: NAD HEENT: at/nc, anicteric, op clear CV: rrr, no m/r/g PULM: cta b/l, comfortable ABD: soft, nt/nd, nabs, surgical scars EXT: no edema BACK: tender to palpation along paraspinal muscles in L spine and Sacrum Neuro: Alert/oriented/appropriate Skin: no rash LABS: Reviewed in eDH. Remarkable for the following: Recent Labs 09/17/17 0450 09/16/17 0115 09/15/17 0610 WBC 11.1* 11.0* 13.1* HGB 8.9* 8.6* 8.4* HCT 28.4* 26.7* 25.6* PLATELET 138* 121* 126* Recent Labs 09/17/17 0450 09/16/17 0115 09/15/17 0323 NA 142 142 146* K 4.6 4.2 4.0 CL 111* 111* 113* CO2 19* 23 22 BUN 29* 44* 58* CREATININE 0.78* 0.90 1.05 GLUCOSE 81 101 87 CALCIUM 8.0* 8.2* 7.5* No results for input(s): AST, ALT, ALKPHOS, BILITOT, BILIDIR in the last 72 hours. MICRO: No results for input(s): URINECULTURE in the last 720 hours. No results for input(s): BLOODCX in the last 720 hours. STUDIES: Abd U/S 09/14 Homogeneous mild increase in overall hepatic parenchymalechotexture without focal lesion nor contour nodularity consistent with fattyinfiltration with focal sparing at the gallbladder fossa.The visualized hepatic veins, visualized portal veins, and hepatic artery arepatent with normal color and spectral wave forms.Trace pericholecystic ascites. Small right pleural effusion. Medications: Scheduled Meds: ??? multivitamin with folic acid 1 tablet Oral Daily ??? aspirin 81 mg Oral Daily ??? metoprolol 25 mg Oral 2 times per day ??? methyl salicylate-menthol Topical (Top) BID ??? acetaminophen 1,000 mg Oral Q6H HOMER ??? apixaban 5 mg Oral BID ??? pantoprazole 40 mg Oral BID ??? senna-docusate 1 tablet Oral BID ??? nicotine 21 mg Transdermal Daily And ??? Patch Verification 1 patch Transdermal BID And ??? nicotine 1 patch Transdermal Daily ??? buPROPion 150 mg Oral BID ??? gabapentin 300 mg Oral TID ??? folic acid 1 mg Oral Daily ??? thiamine 250 mg Intravenous Daily Followed by ??? [START ON 09/22/2017] thiamine 100 mg Intravenous Daily ??? atorvastatin 10 mg Oral QPM ??? tiotropium 18 mcg Inhalation Daily Continuous Infusions: ??? sodium chloride 0.9% PRN Meds:.calcium carbonate, lactulose, bisacodyl, oxyCODONE, sodium chloride 0.9%, ipratropium-albuterol * Blank Goldstein RN - 09/16/2017 5:24 PM EDT Patient arrived onto the floor from ICU3N, patient is laying in bed, affect is flat. Patient is somewhat delayed in answering questions. Patient states that he takes no oral medicines for his diabetes and does not take insulin.CBS was 92 and required no coverage. No complaints of pain or discomfort. * ZekeKerry, DT - 09/16/2017 3:46 PM EDT Nutrition Services - Initial Note Nain Kang : 1950 AGE: 67 y.o. Patient Active Problem List Diagnosis Date Noted ??? Hospital-Iron deficiency anemia due to chronic blood loss 09/14/2017 Chronic ??? Hospital-ETOH abuse 09/14/2017 Chronic ??? Hospital-History of GI tract cancer 09/14/2017 Chronic ??? Hospital-Paroxysmal atrial fibrillation 09/14/2017 Chronic ??? Hospital-History of ASCVD 09/14/2017 Chronic ??? Hospital-Chronic back pain 09/14/2017 Chronic ??? Hospital-Type 2 diabetes mellitus with neurologic complication, without long-term current use of insulin 09/14/2017 Chronic ??? Hospital-Pancreatitis c/b pseudocyst/cyst 2004 09/14/2017 Chronic ??? Hospital-Depression 09/14/2017 Chronic ??? Hospital-COPD (chronic obstructive pulmonary disease) 09/14/2017 Chronic ??? Hospital-Tobacco abuse disorder 09/14/2017 Chronic ??? Hospital-Acute upper GI bleed 09/13/2017 Reason for Nutrition Intervention: Patient Admitted to ICU Diet Order: CHO3 Appetite: Good Food allergies: NKFA Chewing/Swallowing difficulty: None noted Ht Readings from Last 3 Encounters: 09/13/17 167.6 cm (5' 6) Wt Readings from Last 3 Encounters: 09/13/17 63.3 kg (139 lb 8.8 oz) Body mass index is 22.52 kg/(m^2). Vitamins/Minerals: Thiamine, Folic acid noted. Assessment: Patient seen for stay in ICU. Pt informed of current diet order and it's nutritional restrictions for meal ordering. Pt had no questions. He reported a good appetite without difficulty chewing or swallowing. He is tolerating current diet without nausea or vomiting. Pt stated he consumedmost of breakfast today and consumed a little over 50% PO intake of lunch. Pt filling out menu choices daily. Nursing notes documenting 75% + 100% PO intakes on 09/15. Pt able to open meal containers and cut up foods okay at this time. Patient had no further questions at this time. Encouraged patient to contact Food and Nutrition services with any questions that may arise. Nutrition will monitor and follow up weekly. Nutrition Plan: Continue current diet. Recommend Daily Multi Vitamins. Monitor weight. Encourage good po intake. Support and encouragement provided. Nutrition services to follow weekly thru hospital course unless consulted in the interim. ABDULKADIR Hu * Yao Klein MD - 09/16/2017 12:19 PM EDT [facility] Medicine Attending Daily Progress Note Admit Date: 09/13/2017 ( Hospital Day 3 days ) Active Hospital Problems Diagnosis ??? Iron deficiency anemia due [...] abuse disorder ??? Acute upper GI bleed Resolved Hospital Problems Diagnosis Date Resolved No resolved problems to display. ASSESSMENT: 67 yo M with h/o CAD s/p 4v CABG on ASA, afib on Eliquis, DMII complicated by neuropathy, EtOH use,pancreatitis with pseudocyst in 2003, COPD, gastric cancer s/p partial gastrectomy in 2000 complicated by surgical flap infection and removal of 4 left ribs, back pain on chronic opiates, admitted with UGIB. EGD showed evidence of esophagitis but no clear bleeding source. There was no evidence of portal HTN on EGD so octreotide/CTX were discontinued on 09/13 and Abd U/S shows fatty infiltration without cirrhosis. Will plan to restart his eliquis today and observe. Some hypotension this late morning, will bolus with 500cc x1 and recheck. Patient otherwise mentating well, asymptomatic. PLAN: #UGIB, non-variceal #Hypovolemic/hemorrhagic shock: resolved #H/o gastric cancer s/p ? Partial gastrectomy in 2000 - Unknown baseline Hgb; Hgb at OSH was 6.6, s/p 5u pRBC now ~10 (lasst transfusion 09/13) - Pantoprazole IV BID, will switch to oral - restart eliquis 09/15, cont hold ASA - monitor Hgb daily - Carb control diet - Appreciate GI consult recs #Chronic EtOH and tobacco use - s/p IV thiamine/folate replacement - Cont high dose oral replacement - nicotine patch for tobacco use - RUQ U/S shows fatty liver without cirrhosis #NHI #Hyperchloremic hypernatremia - Cont to monitor daily BMP - cont gentle IVF, can d/c as patient taking in more PO - avoid nephrotoxins #afib, on eliquis - cont to hold eliquis 5mg BID - cont home metoprolol tartrate 50mg BID #DMII - insulin sliding scale (holding home metformin) - cont home gabapentin 300mg TID #CAD with h/o CABG - Hold home ASA given GI bleed - cont home lipitor 10mg daily - hold home lisinopril and lasix(need to confirm home doses) #COPD #depression #chronic back pain - cont home inhalers (tiotropium, duonebs) - cont home wellbutrin - oxycodone PRN for back pain # PPx: SCDs in context of GI bleed Yao Klein MD TEAM/PAGER: [phone] Subjective/24hr events: - diet advanced, Hgb stable, some hypotension this AM, wondering when he can go home, discussed restarting his eliquis and bleeding risk ROS: Patient denies fevers, chills, nausea/vomiting, diarrhea/constipation, sob/cp, dysuria. Vitals: Last value Range last 24 hrs Temperature Temp: 36.7 ??C (98.1 ??F) Temp: [36.4 ??C (97.5 ??F)-37 ??C (98.6 ??F)] Heart Rate Heart Rate: 66 Heart Rate: [64-77] Blood Pressure BP: (!) 76/50 (500 cc NS bols) BP: (75-127)/(45-74) Respiratory Rate Resp: 16 Resp: [12-19] SpO2 SpO2: 96 % SpO2: [95 %-99 %] Intake/Output Summary (Last 24 hours) at 09/16/17 1219 Last data filed at 09/16/17 1152 Gross per 24 hour Intake 2063 ml Output 1125 ml Net 938 ml EXAM GEN: NAD HEENT: at/nc, anicteric, perrl, op clear CV: rrr, no m/r/g PULM: cta b/l, comfortable ABD: soft, nt/nd, nabs, surgical scars EXT: no edema Neuro: Alert/oriented/appropriate Skin: no rash LABS: Reviewed in eDH. Remarkable for the following: Recent Labs 09/16/17 0115 09/15/17 0610 09/15/17 0323 WBC 11.0* 13.1* 12.9* HGB 8.6* 8.4* 8.2* HCT 26.7* 25.6* 24.9* PLATELET 121* 126* 121* Recent Labs 09/16/17 0115 09/15/17 0323 09/14/17 0123 09/13/17 1310 NA 142 146* 148* 144 K 4.2 4.0 4.4 4.4 CL 111* 113* 111* 103 CO2 23 22 22 23 BUN 44* 58* 97* 121* CREATININE 0.90 1.05 1.38 1.77* GLUCOSE 101 87 153 -- CALCIUM 8.2* 7.5* 7.7* 9.0 MAGNESIUM -- -- 1.15* 1.10* PHOS -- -- 4.2 -- Recent Labs 09/13/17 1310 AST 12 ALT 8 ALKPHOS 101 BILITOT 0.9 MICRO: No results for input(s): URINECULTURE in the last 720 hours. No results for input(s): BLOODCX in the last 720 hours. STUDIES: Abd U/S 09/14 Homogeneous mild increase in overall hepatic parenchymalechotexture without focal lesion nor contour nodularity consistent with fattyinfiltration with focal sparing at the gallbladder fossa.The visualized hepatic veins, visualized portal veins, and hepatic artery arepatent with normal color and spectral wave forms.Trace pericholecystic ascites. Small right pleural effusion. Medications: Scheduled Meds: ??? apixaban 5 mg Oral BID ??? insulin lispro 1-4 Units Subcutaneous TID AC ??? pantoprazole 40 mg Oral BID ??? senna-docusate 1 tablet Oral BID ??? nicotine 21 mg Transdermal Daily And ??? Patch Verification 1 patch Transdermal BID And ??? nicotine 1 patch Transdermal Daily ??? metoprolol 50 mg Oral 2 times per day ??? buPROPion 150 mg Oral BID ??? gabapentin 300 mg Oral TID ??? folic acid 1 mg Oral Daily ??? thiamine 500 mg Intravenous TID Followed by ??? [START ON 09/17/2017] thiamine 250 mg Intravenous Daily Followed by ??? [START ON 09/22/2017] thiamine 100 mg Intravenous Daily ??? atorvastatin 10 mg Oral QPM ??? tiotropium 18 mcg Inhalation Daily Continuous Infusions: ??? sodium chloride 0.9% PRN Meds:.oxyCODONE, sodium chloride 0.9%, ipratropium-albuterol, dextrose 50% OR glucagon (human recombinant) * Yao Klein MD - 09/15/2017 7:54 AM EDT Hospital Medicine Attending Daily Progress Note Admit Date: 09/13/2017 ( Hospital Day 2 days ) Active Hospital Problems Diagnosis ??? Iron deficiency anemia due [...] abuse disorder ??? Acute upper GI bleed Resolved Hospital Problems Diagnosis Date Resolved No resolved problems to display. ASSESSMENT: 67 yo M with h/o CAD s/p 4v CABG on ASA, afib on Eliquis, DMII complicated by neuropathy, EtOH use,pancreatitis with pseudocyst in 2003, COPD, gastric cancer s/p partial gastrectomy in 2000 complicated by surgical flap infection and removal of 4 left ribs, back pain on chronic opiates, admitted with UGIB. EGD showed evidence of esophagitis but no clear bleeding source. There was no evidence of portal HTN on EGD so octreotide/CTX were discontinued on 09/13 and Abd U/S shows fatty infiltration without cirrhosis. PLAN: #UGIB, non-variceal #Hypovolemic/hemorrhagic shock: resolved #H/o gastric cancer s/p ? Partial gastrectomy in 2000 - Unknown baseline Hgb; Hgb at OSH was 6.6, s/p 5u pRBC now ~10 (lasst transfusion 09/13) - Pantoprazole IV BID, will switch to oral - monitor Hgb daily - Full liquid diet, ADAT - Appreciate GI consult recs #Chronic EtOH and tobacco use - s/p IV thiamine/folate replacement - Cont high dose oral replacement - nicotine patch for tobacco use - RUQ U/S shows fatty liver without cirrhosis #NHI #Hyperchloremic hypernatremia - Cont to monitor daily BMP - cont gentle IVF, can d/c as patient taking in more PO - avoid nephrotoxins #afib, on eliquis - cont to hold eliquis 5mg BID - cont home metoprolol tartrate 50mg BID #DMII - insulin sliding scale (holding home metformin) - cont home gabapentin 300mg TID #CAD with h/o CABG - Hold home ASA given GI bleed - cont home lipitor 10mg daily - hold home lisinopril and lasix(need to confirm home doses) #COPD #depression #chronic back pain - cont home inhalers (tiotropium, duonebs) - cont home wellbutrin - pain restarted home norco 5-325 BID PRN # PPx: SCDs in context of GI bleed Yao Klein MD TEAM/PAGER: [phone] Subjective/24hr events: - back pain overnight, had abd U/S, Hgb drifting downward but not rapidly, reports good appetite ROS: Patient denies fevers, chills, nausea/vomiting, diarrhea/constipation, sob/cp, dysuria. Vitals: Last value Range last 24 hrs Temperature Temp: 36.4 ??C (97.5 ??F) Temp: [36.4 ??C (97.5 ??F)-36.9 ??C (98.4 ??F)] Heart Rate Heart Rate: 61 Heart Rate: [59-94] Blood Pressure BP: 128/69 BP: (88-128)/(50-103) Respiratory Rate Resp: 12 Resp: [10-26] SpO2 SpO2: 97 % SpO2: [95 %-99 %] Intake/Output Summary (Last 24 hours) at 09/15/17 0754 Last data filed at 09/15/17 0600 Gross per 24 hour Intake 2364 ml Output 2175 ml Net 189 ml EXAM GEN: NAD HEENT: at/nc, anicteric, perrl, op clear CV: rrr, no m/r/g PULM: cta b/l, comfortable ABD: soft, nt/nd, nabs, surgical scars EXT: no edema Neuro: Alert/oriented/appropriate Skin: no rash LABS: Reviewed in eDH. Remarkable for the following: Recent Labs 09/15/17 0610 09/15/1732209/14/172006 WBC 13.1* 12.9* 16.0* HGB 8.4* 8.2* 9.0* HCT 25.6* 24.9* 27.0* PLATELET 126* 121* 137* Recent Labs 09/15/17 0323 09/14/17 0123 09/13/17 1310 NA 146* 148* 144 K 4.0 4.4 4.4 CL 113* 111* 103 CO2 22 22 23 BUN 58* 97* 121* CREATININE 1.05 1.38 1.77* GLUCOSE 87 153 -- CALCIUM 7.5* 7.7* 9.0 MAGNESIUM -- 1.15* 1.10* PHOS -- 4.2 -- Recent Labs 09/13/17 1310 AST 12 ALT 8 ALKPHOS 101 BILITOT 0.9 MICRO: No results for input(s): URINECULTURE in the last 720 hours. No results for input(s): BLOODCX in the last 720 hours. STUDIES: Abd U/S 09/14 Homogeneous mild increase in overall hepatic parenchymalechotexture without focal lesion nor contour nodularity consistent with fattyinfiltration with focal sparing at the gallbladder fossa.The visualized hepatic veins, visualized portal veins, and hepatic artery arepatent with normal color and spectral wave forms.Trace pericholecystic ascites. Small right pleural effusion. Medications: Scheduled Meds: ??? nicotine 21 mg Transdermal Daily And ??? Patch Verification 1 patch Transdermal BID And ??? nicotine 1 patch Transdermal Daily ??? metoprolol 50 mg Oral 2 times per day ??? buPROPion 150 mg Oral BID ??? gabapentin 300 mg Oral TID ??? folic acid 1 mg Oral Daily ??? pantoprazole 40 mg Intravenous BID Or ??? pantoprazole 40 mg Oral BID ??? thiamine 500 mg Intravenous TID Followed by ??? [START ON 09/17/2017] thiamine 250 mg Intravenous Daily Followed by ??? [START ON 09/22/2017] thiamine 100 mg Intravenous Daily ??? atorvastatin 10 mg Oral QPM ??? tiotropium 18 mcg Inhalation Daily ??? insulin lispro 1-4 Units Subcutaneous Q4H HOMER Continuous Infusions: ??? lactated Ringers 75 mL/hr (09/15/17 0318) ??? sodium chloride 0.9% PRN Meds:.HYDROcodone-acetaminophen, sodium chloride 0.9%, ipratropium- albuterol, dextrose 50% OR glucagon (human recombinant) * Estrellita Gonzales - 09/14/2017 11:06 AM EDT GASTROENTEROLOGY & HEPATOLOGY PROGRESS NOTE Nain Kang [id number] 1950 ID: 67 y.o. male with PMH significant for CAD s/p CABG in 2000 on aspirin, atrial fibrillation on eliquis, DM, alcohol abuse, pancreatitis with pseudocyst, COPD, surgical flap infection with rib removal, chronic narcotic use who is admitted to [facility] for GI bleeding. Of note, the medical record states that this patient has a history of esophageal cancer s/p esophagectomy 2000, however following discussion with the patient and the upper endoscopy on 09/13/17, it seems that he actually may have had a gastric cancer s/p partial gastrectomy. EGD showed an in tact esophagus and GEJ with abnormal appearance of the stomach. Interval History: -Patient hungry this morning, decreased abdominal discomfort -Concern for bleeding overnight given a drop in hemoglobin, however this appears to have been spurious. Patient received 1 unit of RBC and had a hemoglobin increased to 10 this morning. -No other acute events or complaints overnight -Patient remains in the ICU, normal hemodynamics Active Hospital Problem List Patient Active Problem List Diagnosis Code ??? Glossitis K14.0 ??? Acute upper GI bleed K92.2 Scheduled Meds: ??? nicotine 21 mg Transdermal Daily And ??? Patch Verification 1 patch Transdermal BID And ??? [START ON 09/15/2017] nicotine 1 patch Transdermal Daily ??? metoprolol 50 mg Oral 2 times per day ??? buPROPion 150 mg Oral BID ??? gabapentin 300 mg Oral TID ??? folic acid 1 mg Oral Daily ??? pantoprazole 40 mg Intravenous BID Or ??? pantoprazole 40 mg Oral BID ??? thiamine 500 mg Intravenous TID Followed by ??? [START ON 09/17/2017] thiamine 250 mg Intravenous Daily Followed by ??? [START ON 09/22/2017] thiamine 100 mg Intravenous Daily ??? atorvastatin 10 mg Oral QPM ??? tiotropium 18 mcg Inhalation Daily ??? insulin lispro 1-4 Units Subcutaneous Q4H HOMER Continuous Infusions: ??? dextrose 5% 75 mL/hr (09/14/17 0648) ??? sodium chloride 0.9% PRN Meds:.sodium chloride 0.9%, ipratropium-albuterol, dextrose 50% OR glucagon (human recombinant) Review of patient's allergies indicates no known allergies. Physical Examination Last value Range last 24 hrs Heart Rte Heart Rate: 73 Heart Rate: [60-87] Blood Pressure BP: (!) 128/103 BP: (95-141)/(51-103) GENERAL: Chronically ill-appearing. Improved response time to questioning compared to prior exam HENT: AT/NC, Sclerae anicteric NECK is supple, no adenopathy CHEST: CTA to anterior auscultation. Midline sternotomy scar CARDIAC: Irregularly irregular rate and rhythm. No murmur ABDOMEN: Soft, nontender, normoactive bowel sounds. Hepatosplenomegaly present. Surgical scars at left upper quadrant with multiple ribs absent in that region. EXT: Warm, well-perfused. Bilateral lower extremity edema mildly improved NEURO: moves all extremities. Alert and oriented to situation SKIN: No jaundice Pertinent Recent labs CBC Lab Results Component Value Date WBC 11.7 (H) 09/14/2017 Hemoglobin 10.2 (L) 09/14/2017 Hematocrit 30.3 (L) 09/14/2017 Platelets 141 (L) 09/14/2017 Lab Results Component Value Date Sodium 148 (H) 09/14/2017 Potassium 4.4 09/14/2017 Chloride 111 (H) 09/14/2017 CO2 22 09/14/2017 BUN 97 (H) 09/14/2017 Creatinine 1.38 09/14/2017 Glucose Lvl 153 09/14/2017 LFT's Lab Results Component Value Date Alk Phos 101 09/13/2017 AST 12 09/13/2017 Albumin 3.1 (L) 09/13/2017 Total Bilirubin 0.9 09/13/2017 ALT 8 09/13/2017 Total Protein 6.2 09/13/2017 Pertinent Endoscopic Procedures/Reports: Reviewed in eDH Pertinent Recent Imaging Reviewed in eDH Impression: Nain Kang is a 67 y.o. male with PMH significant for CAD s/p CABG in 2000 on aspirin, atrial fibrillation on eliquis, DM, alcohol abuse, pancreatitis with pseudocyst, COPD, surgical flap infection with rib removal, chronic narcotic use, ?gastric cancer s/p gastrectomy (per patient report) who is admitted to [facility] for GI bleeding. On EGD yesterday there was a large amount of blood in the stomach. This was evacuated and there was no clear source of bleeding seen below the blood/clot.Concern that there may have been an AVM or Dieulafoy lesion in the upper GI tract responsible for the GI blood loss. Although there was some concern for liver disease due to the patient's alcohol abuse, there were no signs of portal hypertension on upper endoscopy. Therefore it is OK to stop ceftriaxone and octreotide. Mr. Kang did well overnight with no further signs of bleeding. His hemoglobin is stable this morning (he received 1 additional unit of RBC overnight for spurious low Hgb). He is hungry with improved abdominal pain, asking to eat. Recommend slow advancement of diet while assessing for any furtherGI bleeding. Also recommend right upper quadrant ultrasound to assess for liver texture and appearance. Plan: - RUQ ultrasound today - OK to stop ceftriaxone and octreotide given no evidence of portal hypertension or varices to suggest cirrhosis - Continue bid PPI while hospitalized - maintain 2 large bore iv - OK to advance diet to full liquids today, consider additional advancement of diet tonight/tomorrow if no further bleeding This case was discussed with Dr. Vidales. Estrellita Gonzales MD Gastroenterology Fellow #[id number] Associated attestation - Marixa Vidales MD - 09/14/2017 4:42 PM EDT Attending Addendum: I interviewed and examined the patient with Dr. Gonzales on rounds. I confirm the history and keyphysical findings outlined in this note. The assessment and plan were formulated in discussion withme at the time of this encounter, and I agree with them as documented. Marixa Vidales MD * Zack Hood MD - 09/14/2017 8:43 AM EDT MICU STAFF PROGRESS NOTE Critical Care Medicine Author: ZACK HOOD Patient seen and examined on critical care rounds. Transferred from [facility] ([facility]) yesterday for GI bleeding - dark stools +/- hematemesis in a man with heavy alcohol use but no definite evidence of chronic liver disease. Last 24 hours: Transfused 5 units of blood total - Hb now 10.2 and stable over 4 hours EGD yesterday showed red blood in esophagus, coffee ground blood in stomach, no varices, no PHG, no ulcer, no obvious AVM Active problems: Upper GI bleed of uncertain etiology Acute blood loss anemia Heavy alcohol use - no clinical signs of chronic liver disease History of coronary artery disease status post CABG end of esophageal cancer status post partial esophago-gastrectomy Exam: Last value Range last 24 hrs Temperature Temp: 36.4 ??C (97.5 ??F) Temp: [35.7 ??C (96.2 ??F)-37 ??C (98.6 ??F)] Heart Rate Heart Rate: 87 Heart Rate: [60-87] Blood Pressure BP: 127/71 BP: (95-141)/(51-89) Respiratory Rate Resp: 12 Resp: [11-23] SpO2 SpO2: 97 % SpO2: [95 %-100 %] Art BP BP (Arterial Line): -- Ventilator: room air Awake and alert, feels hungry Slightly pale Chest clear Heart sounds normal Sternotomy scar and upper abdominal scars Abdomen soft and nontender with active bowel sounds Extremities warm, no edema Current Drips: ??? dextrose 5% 75 mL/hr (09/14/17 0648) ??? sodium chloride 0.9% ??? pantoprazole (PROTONIX) infusion 8 mg/hr (09/13/172207) ??? nicotine 21 mg Transdermal Daily And ??? Patch Verification 1 patch Transdermal BID And ??? [START ON 09/15/2017] nicotine 1 patch Transdermal Daily ??? metoprolol 50 mg Oral 2 times per day ??? buPROPion 150 mg Oral BID ??? gabapentin 300 mg Oral TID ??? folic acid 1 mg Oral Daily ??? thiamine 500 mg Intravenous TID Followed by ??? [START ON 09/17/2017] thiamine 250 mg Intravenous Daily Followed by ??? [START ON 09/22/2017] thiamine 100 mg Intravenous Daily ??? atorvastatin 10 mg Oral QPM ??? tiotropium 18 mcg Inhalation Daily ??? insulin lispro 1-4 Units Subcutaneous Q4H HOMER Labs/studies: Lab Results Component Value Date WBC 11.7 (H) 09/14/2017 RBC 3.40 (L) 09/14/2017 HGB 10.2 (L) 09/14/2017 HCT 30.3 (L) 09/14/2017 MCV 89.1 09/14/2017 MCH 30.0 09/14/2017 MCHC 33.7 09/14/2017 PLATELET 141 (L) 09/14/2017 RDWCV 16.6 (H) 09/14/2017 Lab Results Component Value Date NA 148 (H) 09/14/2017 K 4.4 09/14/2017 CL 111 (H) 09/14/2017 CO2 22 09/14/2017 BUN 97 (H) 09/14/2017 CREATININE 1.38 09/14/2017 GLUCOSE 153 09/14/2017 GLUCFASTING 142 (H) 09/13/2017 CALCIUM 7.7 (L) 09/14/2017 ESTGFR 51 (L) 09/14/2017 Albumin 3, LFTs normal ASSESSMENT, MANAGEMENT, and DECISION MAKING: Upper GI bleed, perhaps from a dieulafoy lesion or an ulcer that was not visualized at endoscopy. No active bleeding with good hemodynamics and no evidence of decompensated liver disease. At risk foralcohol withdrawal but no evidence of that to date. Plan is as below: Continue PPI, clear liquids Hb q12h Eliquis held but other medications restarted Abdominal ultrasound to assess for cirrhosis Continue thiamine and folate Spiriva, nicotine patch, wellbutrin Transferred to hospital medicine IS PATIENT CRITICALLY ILL ? Is there a high potential of sudden, clinically significant, or life threatening deterioration? No Is there a need for direct personal assessment and management to treat/prevent multiple vital organfailure/deterioration? No If this patient is not critically ill, I certify the patient requires continued in-patient hospitalization for [GI bleeding, acute blood loss anemia] Zack Hood MD 09/14/2017 8:43 AM * Zack Hood MD - 09/13/2017 9:42 PM EDT Patient seen and examined with SONYA Ortiz. Her H+P note outlines our assessment and plan. Reviewed. Pre-and post endoscopy and appears hemodynamically stable. Watch hemoglobin overnight, continue vitamins and have benzodiazepine available given his history of heavy alcohol use. His creatinine seems to improved with blood and fluid resuscitation I think is very high BUN reflects upper GI bleeding as well as renal impairment. He has satisfactory IV access continues on intravenous proton pump inhibitor. If remains stable overnight could likely transfer to a medical service tomorrow. Zack Hood MD * Ashlie Hernandez RCP - 09/13/2017 6:33 PM EDT 09/13/17 1725 Oxygen Therapy O2 Device NC O2 Flow Rate (L/min) 2 L/min SpO2 100 % Resp 14 pt on 2L. Pt has orders for spiriva, and duoneb prn Pt is new admit documented in this encounter H&P Notes * Naldo Cristela Kvng - 09/18/2017 1:19 PM EDT Gastroenterology and Hepatology Pre-Procedure History and Physical Exam Procedure: EGD: Indication: ongoing hematemesis: please see previous GI consult note and progress notes for more details. Had recurrent hematemesis overnight with drop in Hgb requiring transfusion. EGD on 09/14 with blood but no source of bleeding found. Patient Active Problem List Diagnosis Code ??? Acute upper GI bleed K92.2 ??? Iron deficiency anemia due to chronic blood loss D50.0 ??? ETOH abuse F10.10 ??? History of GI tract cancer Z85.00 ??? Paroxysmal atrial fibrillation I48.0 ??? History of ASCVD Z86.79 ??? Chronic back pain M54.9, G89.29 ??? Type 2 diabetes mellitus with neurologic complication, without long-term current use of ospltvsJ45.49 ??? Pancreatitis c/b pseudocyst/cyst 2004 K86.2, K86.3 ??? Depression F32.9 ??? COPD (chronic obstructive pulmonary disease) J44.9 ??? Tobacco abuse disorder Z72.0 EXAM: HEENT: Airway examined, oropharynx clear Mallampati Score: II (soft palate, uvula, fauces visible) LUNGS: Clear to auscultation HEART: Regular rate and rhythm, normal S1, S2 ABDOMEN: Normal bowel sounds, soft, non tender, non distended, A/P Proceed with the planned endoscopic procedure. ASA 2 - Patient with mild systemic disease with no functional limitations Sedation Plan: anesthesia Risks and benefits of the procedure explained to the patient. Consent signed. * Shilpa Mercedes MD - 09/14/2017 12:19 PM EDT Inpatient Hospital Medicine - Admission Note Problem List: Active Hospital Problems Diagnosis ??? Iron deficiency anemia due to chronic blood loss ??? ETOH abuse ??? History of GI tract cancer ??? Paroxysmal atrial fibrillation ??? History of ASCVD ??? Chronic back pain ??? Type 2 diabetes mellitus with neurologic complication, without long-term current use of insulin ??? Pancreatitis c/b pseudocyst/cyst 2003 ??? Acute upper GI bleed Resolved Hospital Problems Diagnosis Date Resolved No resolved problems to display. There are no active non-hospital problems to display for this patient. ID: 67 y.o. Male presents to [facility] [place] UGIB History of Present Illness: HPI 67 y/o M with PMHx CAD s/p 4v CABG on ASA, Afib on Eliquis, DM2 c/b neuropathy, Etoh use, pancreatitis w/ pseudocyst n 2003, COPD, gastric cancer (s/p ?partial gastrectomy in 2000, c/b surgical flap infection and removal of 4 left ribs), back pain on chronic opiates??who presents to [facility] today withupper GI bleed. He was dropped off to [facility] by a friend, and is a poor historian. He reported fatigue and feeling unwell for approx 1 month, associated with generalized discomfort, toña in abdomen. Hef black tarry stool at home on 09/12 and a month of feeling unwell and on arrival at OSH was reportedly pale and hypotensive. He had been taking Tylenol, denied NSAID use, and had significant Etoh use of 6 pack 12oz beer, and 2 shots primo, daily. His labs in ED there showed Hb 6.6 and Cr 2.56 (baseline 1.0). He had an episode of hematemesis in the [facility] ED, and received Protonix, 4uPRBC and FFP. He was transferred to [facility] ICU via [facility] and received Tranexamic acid en route. In [facility] ICU (09/13-09/14), he was hemodynamically stable. He underwent EGD 09/13 which revealed stomach full of blood and clot, no ulcer or AVM, no evidence of portal hypertension. He received 1uPRBC more on 09/13 for H/H drop to 7.7, and responded extremely well to 10.2. Per discussion with GI, his Protonix was transitioned from infusion to BID, and his diet was advanced to full liquid as of 09/14. He remained hemodynamically stable, so is being transitioned to hospital medicine. He had u/s abdomen ordered which is not done yet, and his eliquis continued to be held at time of transition. Of note, admission H&P suggested he had esophageal cancer s/p esophageogastrectomy; however perGI, it seems he had gastric cancer s/p partial gastrectomy, and on EGD, his esophagus was intact. Review of Systems: Review of Systems 10 point ROS neg except as above Past Medical and Surgical History: Past Medical History: Diagnosis Date ??? Chronic back pain 09/14/2017 On chronic narcotics ??? ETOH abuse 09/14/2017 Daily use: 6 pack 12oz beer, 2 shots primo ??? History of ASCVD 09/14/2017 S/p 4v CABG - on ASA ??? History of GI tract cancer 09/14/2017 ??? Iron deficiency anemia due to chronic blood loss 09/14/2017 ??? Pancreatitis c/b pseudocyst/cyst 2004 09/14/2017 ??? Paroxysmal atrial fibrillation 09/14/2017 On Eliquis ??? Type 2 diabetes mellitus with neurologic complication, without long-term current use of insulin09/14/2017 On Metformin and Gabapentin Past Surgical History: Procedure Laterality Date ??? PRO UPPER GI ENDOSCOPY, DIAGNOSTIC N/A 09/13/2017 EGD, UPPER GI ENDOSCOPY performed by Marixa Vidales MD at [facility] ENDOSCOPY Prior To Admission Medications: Prescriptions Prior to Admission Medication Sig Dispense Refill Last Dose ??? folic acid (FOLVITE) 1 mg tablet 1mg, PO, QD ??? Ferrous Sulfate 325 mg (65 mg Iron) CpSR ??? metFORMIN (GLUCOPHAGE) 500 mg tablet ??? lisinopril (PRINIVIL;ZESTRIL) 10 mg tablet ??? nitroGLYcerin (NITROSTAT) 0.4 mg SL tablet ??? fluticasone (FLOVENT HFA) 110 mcg/Actuation inhaler ??? [DISCONTINUED] lansoprazole (PREVACID) 30 mg capsule ??? ELIQUIS 5 mg Tablet Take 5 mg by mouth 2 times daily. 0 ??? atorvastatin (LIPITOR) 10 mg Tablet Take 10 mg by mouth daily. 0 ??? cholecalciferol, Vitamin D3, 2,000 unit Tablet Take 2,000 Units by mouth daily. 0 ??? furosemide (LASIX) 40 mg Tablet Take 40 mg by mouth See Admin Instructions. 80mg in the morning, 40mg at noon 0 ??? gabapentin (NEURONTIN) 300 mg Capsule Take 300 mg by mouth 3 times daily. 0 ??? HYDROcodone-acetaminophen (NORCO) 10-325 mg Tablet Take 1 tablet by mouth 2 times daily. 0 ??? metoprolol tartrate (LOPRESSOR) 50 mg Tablet Take 50 mg by mouth 2 times daily. 0 ??? SPIRIVA WITH HANDIHALER 18 mcg Capsule, w/Inhalation Device Inhale 18 mcg into the lungs daily.0 ??? pantoprazole (PROTONIX) 40 mg Tablet, Delayed Release (E.C.) Take 40 mg by mouth daily. 0 ??? [DISCONTINUED] clotrimazole (MYCELEX) 10 mg Konrad Dissolve one in mouth three times day after brushing teeth after each meal 90 tablet 0 ??? CIS Free Text Med - Baby ASA 81mg, PO, QD ??? atenolol (TENORMIN) 100 mg tablet ??? albuterol-ipratropium (COMBIVENT) 18-103 mcg/Actuation inhaler ??? [DISCONTINUED] atorvastatin (LIPITOR) 40 mg tablet 10mg, PO, QD ??? [DISCONTINUED] buPROPion (WELLBUTRIN SR) 150 mg 12 hr tablet 150mg, PO, BID Allergies: No Known Allergies Family History: No family history on file. Social History and Habits: Social History Social History ??? Marital status: Spouse name: N/A ??? Number of children: N/A ??? Years of education: N/A Occupational History ??? Not on file. Social History Main Topics ??? Smoking status: Former Smoker ??? Smokeless tobacco: Not on file ??? Alcohol use Not on file ??? Drug use: Not on file ??? Sexual activity: Not on file Other Topics Concern ??? Not on file Social History Narrative Immunizations: Immunization History Administered Date(s) Administered ??? Influenza Vaccine, Whole 06/06/2007 ??? Pneumococcal Polyvalent 23 06/06/2005 Physical Exam: Last Set of Vitals and range of vitals over past 24 hours: Last value Range last 24 hrs Temperature Temp: 36.6 ??C (97.9 ??F) Temp: [35.7 ??C (96.2 ??F)-36.8 ??C (98.2 ??F)] Heart Rate Heart Rate: 74 Heart Rate: [60-87] Blood Pressure BP: 103/70 BP: (95-141)/(53-103) Respiratory Rate Resp: 19 Resp: [12-26] SpO2 SpO2: 98 % SpO2: [95 %-100 %] Body mass index is 22.52 kg/(m^2). Physical Exam GEN: Lying in bed comfortably, NAD, on room air, HEENT: No jaundice, no conjunctival pallor, CVS: RRR, S1+S2+no added sounds CHEST: CTABL, no added sounds ABD: Soft, NT/ND, BS+mary jane.surgical scars noted upper abdomen. NEURO: AAO*3, no focal deficits PSYCH: Normal mood and affect EXT: No edema SKIN: No rash, no stigmata CLD Laboratory (Last 24 Hours): Recent Results (from the past 24 hour(s)) POCT Glucose Result Value Ref Range POC Glucose 135 65 - 199 mg/dL Hemogram Result Value Ref Range WBC 13.7 (H) 4.0 - 9.5 x10(3)/mcL RBC 2.94 (L) 4.58 - 5.54 x10(6)/mcL Hemoglobin 8.9 (L) 13.7 - 16.5 gm/dL Hematocrit 26.8 (L) 40.5 - 48.5 % MCV 91.2 82.9 - 93.1 fL MCH 30.3 27.5 - 32.1 pg MCHC 33.2 32.0 - 35.7 gm/dL Platelets 155 145 - 357 x10(3)/mcL RDWSD 49.5 (H) 36.0 - 45.0 fL RDWCV 18.6 (H) 11.4 - 13.8 % MPV 11.6 7.6 - 12.9 fL nRBC % Auto 0.2 % nRBC Abs Auto 0.030 (H) 0.000 - 0.000 x10(3)/mcL Hemogram Result Value Ref Range WBC 11.2 (H) 4.0 - 9.5 x10(3)/mcL RBC 2.64 (L) 4.58 - 5.54 x10(6)/mcL Hemoglobin 7.7 (L) 13.7 - 16.5 gm/dL Hematocrit 23.5 (L) 40.5 - 48.5 % MCV 89.0 82.9 - 93.1 fL MCH 29.2 27.5 - 32.1 pg MCHC 32.8 32.0 - 35.7 gm/dL Platelets 133 (L) 145 - 357 x10(3)/mcL RDWSD 49.1 (H) 36.0 - 45.0 fL RDWCV 16.7 (H) 11.4 - 13.8 % MPV 11.4 7.6 - 12.9 fL nRBC % Auto 0.3 % nRBC Abs Auto 0.030 (H) 0.000 - 0.000 x10(3)/mcL POCT Glucose Result Value Ref Range POC Glucose 150 65 - 199 mg/dL Prepare RBC Result Value Ref Range Dispensed? Yes Basic Metabolic Panel (non-fasting) Result Value Ref Range Glucose Lvl 153 65 - 199 mg/dL BUN 97 (H) 10 - 20 mg/dL Creatinine 1.38 0.80 - 1.50 mg/dL Sodium 148 (H) 135 - 145 mmol/L Potassium 4.4 3.5 - 5.0 mmol/L Chloride 111 (H) 98 - 107 mmol/L CO2 22 22 - 31 mmol/L Anion Gap 15 5 - 15 mmol/L Calcium 7.7 (L) 8.5 - 10.5 mg/dL Estimated GFR 51 (L) >=60 Hemogram Result Value Ref Range WBC 12.5 (H) 4.0 - 9.5 x10(3)/mcL RBC 3.35 (L) 4.58 - 5.54 x10(6)/mcL Hemoglobin 9.9 (L) 13.7 - 16.5 gm/dL Hematocrit 30.8 (L) 40.5 - 48.5 % MCV 91.9 82.9 - 93.1 fL MCH 29.6 27.5 - 32.1 pg MCHC 32.1 32.0 - 35.7 gm/dL Platelets 118 (L) 145 - 357 x10(3)/mcL RDWSD 50.8 (H) 36.0 - 45.0 fL RDWCV 18.2 (H) 11.4 - 13.8 % MPV 11.2 7.6 - 12.9 fL nRBC % Auto 0.5 % nRBC Abs Auto 0.060 (H) 0.000 - 0.000 x10(3)/mcL Differential, Automated Result Value Ref Range Neutrophils % 93.5 % Neutr Abs (ANC) 11.69 (H) 1.70 - 6.10 x10(3)/mcL Lymphocytes % 3.6 % Lymphocytes Abs 0.4 (L) 0.9 - 3.2 x10(3)/mcL Monocytes % 1.1 % Monocyte Abs 0.1 (L) 0.3 - 0.9 x10(3)/mcL Eosinophils % 0.0 % Eosinophils Abs 0.0 0.0 - 0.4 x10(3)/mcL Basophils % 0.2 % Basophils Abs 0.0 0.0 - 0.1 x10(3)/mcL Immature Gran % 1.60 % Milagros Gran Abs 0.20 (H) 0.00 - 0.04 x10(3)/mcL Magnesium Result Value Ref Range Magnesium 1.15 (H) 0.69 - 1.07 mmol/L Phosphorus Result Value Ref Range Phosphorus 4.2 2.5 - 4.5 mg/dL Hemogram Result Value Ref Range WBC 12.5 (H) 4.0 - 9.5 x10(3)/mcL RBC 3.41 (L) 4.58 - 5.54 x10(6)/mcL Hemoglobin 10.2 (L) 13.7 - 16.5 gm/dL Hematocrit 30.6 (L) 40.5 - 48.5 % MCV 89.7 82.9 - 93.1 fL MCH 29.9 27.5 - 32.1 pg MCHC 33.3 32.0 - 35.7 gm/dL Platelets 143 (L) 145 - 357 x10(3)/mcL RDWSD 48.8 (H) 36.0 - 45.0 fL RDWCV 17.7 (H) 11.4 - 13.8 % MPV 10.8 7.6 - 12.9 fL nRBC % Auto 0.3 % nRBC Abs Auto 0.040 (H) 0.000 - 0.000 x10(3)/mcL POCT Glucose Result Value Ref Range POC Glucose 180 65 - 199 mg/dL POCT Glucose Result Value Ref Range POC Glucose 156 65 - 199 mg/dL Hemogram Result Value Ref Range WBC 11.7 (H) 4.0 - 9.5 x10(3)/mcL RBC 3.40 (L) 4.58 - 5.54 x10(6)/mcL Hemoglobin 10.2 (L) 13.7 - 16.5 gm/dL Hematocrit 30.3 (L) 40.5 - 48.5 % MCV 89.1 82.9 - 93.1 fL MCH 30.0 27.5 - 32.1 pg MCHC 33.7 32.0 - 35.7 gm/dL Platelets 141 (L) 145 - 357 x10(3)/mcL RDWSD 48.1 (H) 36.0 - 45.0 fL RDWCV 16.6 (H) 11.4 - 13.8 % MPV 10.7 7.6 - 12.9 fL nRBC % Auto 0.9 % nRBC Abs Auto 0.100 (H) 0.000 - 0.000 x10(3)/mcL POCT Glucose Result Value Ref Range POC Glucose 133 65 - 199 mg/dL Microbiology: Microbiology Results (Last 30 days) No results found for the last 720 hours. Radiology: No results found. Other Studies: EKG - Endoscopy 09/13/2017: Impression: - Esophagogastric landmarks identified. Red blood in the distal esophagus. LA Grade A esophagitis. Hematin (altered??blood/idapox-vaeong-rwpj material) in the gastric fundus.Blood in the entire examined duodenum. No specimens collected. Recommendation: - continue IV PPI. Discontinue octreotide/ceftriaxone??as no evidence of portal hypertension was seen. Hb Q8 hours. Active type and screening Assessment: 67 y/o M with PMHx ASCVD (s/p 4v CABG, on ASA), pAfib (on Eliquis), Etoh use, gastric cancer (s/p ?partial gastrectomy in 2000, c/b surgical flap infection and removal of 4 left ribs), back pain on chronic opiates, DM2 c/b neuropathy,??pancreatitis w/ pseudocyst n 2003, COPD not on home , who pres ents to [facility] with hemodynamically unstable upper GI bleed, and was transferred to [facility] for urgent GI evaluation. EGD 09/13 showed evidence of esophagitis and blood in stomach and duodenum but no clear bleeding source. No evidence of portal HTN on EGD, so Octreotide/CTX were discontinued on 09/13. He was given supportive care with IVF, PRBC (5u total), tranaxemic acid, and IV PPI gtt. He is now hemodynamically stable, and H/H stable, so is being transferred out of ICU to hospital medicine. Given chronic Etoh use, will get U/S abd to screen for cirrhosis. Plan: # Hypovolemic/hemorrhagic shock # Acute on chronic normocytic anemia: # Non-variceal UGIB # Hx gastric cancer (s/p ?partial gastrectomy in 2000) - Hb baseline unsure; Hb 6.6 at OSH. MCV 91. S/P 5u PRBC is now 10.2 (last PRBC was 09/13) - Likely acute blood loss anemia superimposed to chronic anemia due to nutritional deficiency - Briefly on Octreotide/CTX - d/ana after no evidence of portal HTN on EGD - On PPI gtt 09/13 - transitioned to IV BID on 09/14 - Will c/w BID H/H for today for goal >12/24 - Pt on Fes04 and folic acid at home - restarted - Iron panel would be unreliable at this time given recent PRBC transfusion - would rec that be done at later stage - Full liquid diet today - advance gradually. - GI c/s - recs appreciated # Chronic Etoh & tobacco abuse - Drinks 6 pack of 12oz beer and 2 shots primo daily; smokes daily - s/p banana bag in ICU - now on high dose thiamine and Folic acid - On nicotine patch for tobacco abuse - u/s RUQ pending for eval of cirrhosis. Non-oliguric NHI: - Likely due to volume depletion in setting of UGIB - Cr baseline 1.0; on admission was 2.5; now 1.38 w/ IVF - Will c/w gentle IVF, and trend Hx Paroxysmal Afib, rate controlled, on Eliquis: - Pt on Metoprolol tartrate 50mg BID - restarted 09/14 - Home Eliquis 5mg BID held in setting of UGIB; also pt S/P 1 dose TXA at OSH - Will c/w monitoring - can likely restart Eliquis hillary if stable overnight Hx NIDDM2, c/b neuropathy: - Pt on Metformin - will hold for now while inpt and place pt on ABDI - Will restart home Gabapentin Hx ASVCD s/p 4v CABG: - Pt on ASA, Lisinopril, Lipitor, and Lopressor - dosages need to be confirmed for 1st three meds - Holding all except Lopressor while pt NPO and doses not confirmed - can restart once tolerating diet and HD stable - ?chf - pt on Lasix BID - will hold given recent GIB and euvolemia # Leukocytosis: Likely reactive to stress. # Thrombocytopenia: - Likely due to chronic Etoh use and TXA use. - Plt 160 on admission; now 141. No further evidence of bleeding # Hyperchloremic hypernatremia: - Likely due to NS - will switch to LR if inadequate PO intake # COPD: CAROLYN. Will c/w home inhalers # Hx depression: CAROLYN. Will c/w home Wellbutrin when able to take PO consistently. # Chronic back pain: On [place] at home reportedly - will hold for now. Would vocational rehabilitation counselor re continuing to avoid NSAIDs Admit to hospital medicine - Physical Therapy referral - ordered - DVT Prophylaxis - will hold chemical AC 09/14 given recent UGIB- d/w GI re starting on 09/15; c/w SCD - If currently a smoker - advised about smoking cessation and will provide smoking cessation material and support. - Pneumovax and Influenza Immunizations given as needed. - Discussed Advanced Directives and Code Status. The patient wishesto be Full Code. A copy of this document will be sent to the patient's Primary Care Physician and/or Referring Physician. Shilpa Mercedes MD 09/14/2017 * Estrellita Gonzales - 09/13/2017 4:27 PM EDT Gastroenterology and Hepatology Pre-Procedure History and Physical Exam Procedure: EGD: Indication: GI bleeding, melena See GI consult note for additional details Patient Active Problem List Diagnosis Code ??? Glossitis K14.0 ??? Acute upper GI bleed K92.2 EXAM: HEENT: Airway examined, oropharynx clear Mallampati Score: II (soft palate, uvula, fauces visible) LUNGS: Clear to auscultation HEART: Irregular rate and rhythm ABDOMEN: Normal bowel sounds, soft, non tender. +hepatosplenomegaly A/P Proceed with the planned endoscopic procedure. ASA 4 - Patient with severe systemic disease that is a constant threat to life Sedation Plan: anesthesia Risks and benefits of the procedure explained to the patient. Consent signed. Estrellita Gonzales MD Gastroenterology Fellow #[id number] * Vera Ortiz PA - 09/13/2017 2:25 PM EDT Critical Care Admission Note Nain Kang is a 67 y.o. male with a PMH significant for CAD (s/p 4 vessel CABG, on aspirin), afib (on eliquis), DM2, EtOH use (pancreatitis with pseudocyst in 2003), COPD, esophageal cancer (s/p esophagogastrectomy in 2000, c/b surgical flap infection and removal of 4 left ribs), back pain on chronic opiates who presents to [facility] today with upper GI bleed. HPI: Patient was dropped off by a friend and is a poor historian. He reports one episode of black tarry stool at home yesterday 09/12 and a month or so of not feeling well with family urging him to seethe doctor. He was pale on arrival and hypotensive. Labs revealed a hemoglobin of 6.6 and elevated creatinine of 2.56 from a baseline of 1. Patient had one episode of hematemesis in the [facility] ED. [facility] called for transfer. He received protonix, 4U RBC and FFP at the OSH. He was transported by [facility] in stable condition and received tranexamic acid en route. ROS: patient is a poor historian, ROS positive for a recent fall and 3-4 months of increasing EtOH use No family history on file. Social History: Per friend in [facility] ED, 3-4 months of heavy drinking Outpatient medications: No current facility-administered medications on file prior to encounter. Current Outpatient Prescriptions on File Prior to Encounter Medication Sig Dispense Refill ??? folic acid (FOLVITE) 1 mg tablet 1mg, PO, QD ??? lansoprazole (PREVACID) 30 mg capsule ??? Ferrous Sulfate 325 mg (65 mg Iron) CpSR ??? metFORMIN (GLUCOPHAGE) 500 mg tablet ??? lisinopril (PRINIVIL;ZESTRIL) 10 mg tablet ??? nitroGLYcerin (NITROSTAT) 0.4 mg SL tablet ??? fluticasone (FLOVENT HFA) 110 mcg/Actuation inhaler ??? clotrimazole (MYCELEX) 10 mg Konrad Dissolve one in mouth three times day after brushing teeth after each meal 90 tablet 0 ??? CIS Free Text Med - Baby ASA 81mg, PO, QD ??? atorvastatin (LIPITOR) 40 mg tablet 10mg, PO, QD ??? buPROPion (WELLBUTRIN SR) 150 mg 12 hr tablet 150mg, PO, BID ??? atenolol (TENORMIN) 100 mg tablet ??? albuterol-ipratropium (COMBIVENT) 18-103 mcg/Actuation inhaler No Known Allergies Last value Range last 24 hrs Temperature Temp: 36.8 ??C (98.2 ??F) Temp: [36.4 ??C (97.5 ??F)-37 ??C (98.6 ??F)] Heart Rate Heart Rate: 69 Heart Rate: [69-80] Blood Pressure BP: 119/64 BP: (95-130)/(51-78) Respiratory Rate Resp: 13 Resp: [11-18] SpO2 SpO2: 100 % SpO2: [96 %-100 %] Art BP BP (Arterial Line): -- Ventilator Settings: 2L NC Physical Exam: General: Think older man, NAD HEENT: NCAT, anicteric sclera Neuro: AAOx3 with some confusion, CAM negative, MAEW, PERRL, mild asterixis Pulmonary: Lungs CTAB, significant left chest deformity with multiple ribs missing, left thoracic surgical scar, midline sternotomy scar Cardiovascular: irregular rhythm, rate wnl Abdomen: soft, NT, ND, hypoactive BS Extremities: warm, well perfused, right ankle slightly more swollen compared to left Skin: intact, surgical scars notes above. Labs: Last 3 wbc, hgb, hct plt Recent Labs 09/13/17 1310 WBC 14.1* HGB 9.5* HCT 28.7* PLATELET 160 Last 3 Lytes Recent Labs 09/13/17 1310 NA 144 K 4.4 CL 103 CO2 23 BUN 121* CREATININE 1.77* Last 3 LFTs Recent Labs 09/13/17 1310 AST 12 ALT 8 ALKPHOS 101 BILITOT 0.9 Last Ca, Mg, Phos Recent Labs 09/13/17 1310 CALCIUM 9.0 Last 3 Coags Recent Labs 09/13/17 1310 PT 22.8* INR 2.0 PTT 32 Microbiology: none ECG: afib Imaging: none Assessment: 67 year old man with remote esophagogastrectomy and recent escalation of EtOH use who presents to OSH with signs and symptoms concerning for GI bleed. Suspect source of bleeding to be an ulcer or gastritis related to his EtOH use, less likely to be related to his remote surgery but certainly possible. GI aware and planning EGD. Plan: Neuro: ?? Confused, poor historian, reports recents falls at home ?? Given EtOH use with no known cirrhosis would favor wernicke's ecephalopathy ?? Thiamine/folate, banana bag for now ?? Holding home bupropion ?? Chronic back pain: holding home opiates for now ?? Holding home gabapentin Pulm: ?? Stable, history of COPD ?? Continue home Spiriva ?? Duoneb PRN CV: CAD s/p CABG, afib on eliquis ?? Holding home aspirin given bleeding ?? Holding eliquis given bleeding ?? Holding home metoprolol ?? Continue statin GI: UGIB ?? EGD with GI ?? Protonix gtt ?? Octreotide and ceftriaxone ?? Trend hemoglobin Q4 Renal/FEK: NHI ?? Cr improved here, suspect it will continue to improve with resuscitation ?? Trend and replete lytes PRN Hematology: ?? SCDs for DVT ppx ID: ?? Ceftriaxone for SBP ppx Endocrine: DM2 ?? ISS Other prophylaxis: SCDs for DVT prophylaxis Protonix for GI prophylaxis HOB > 30 Chlorhexidine mouth care Mepliex to sacrum PT/OT: PT consult ordered Lines/Tubes/Drains: PIV x 3 Consults: GI Decision Making: self Code Status: FULL Disposition: ICU [facility] [place] September 13, 2017 Critical Care Green Team (pager [phone]) Dr. Hood is the attending of record for this admission documented in this encounter Nursing Notes * Etelvina Gregg RN - 09/18/2017 2:22 PM EDT S: Did they find what was bleeding? O: awake, alert and oriented vital signs stable Egd done with argon plasma coagulation to small area of oozing tissue. Report called to nurse caring for pt on A: stable post procedure, ready for transfer back to floor P: transport notified that pt ready for transfer back to [address] documented in this encounter Miscellaneous Notes * Plan of Care - Lyndsay Harp PTA - 09/20/2017 11:44 AM EDT Physical Therapy Treatment Treatment Number PT: 2 Pertinent History of Current Problem: 67 y/o M with PMHx CAD s/p 4v CABG on ASA, Afib on Eliquis, DM2 c/b neuropathy, Etoh use, pancreatitis w/ pseudocyst n 2003, COPD, gastric cancer (s/p ?partial gastrectomy in 2000, c/b surgical flap infection and removal of 4 left ribs), back pain on chronic opiates who presents in transfer from [facility] today with upper GI bleed Precautions/Restrictions: fall Assessment: Improving ambulation distance. Patient had decrease gait speed and step length without AD. Recommended he use FWW for now. Patient is still fluid overloaded so he has increase WOB with activity. Please see the flow sheet below for patient details and mobility. Pt would benefit from ongoing physical therapy interventions. Staff Mobility Recommendations Ambulate with FWW with supervision Discharge Recommendation: Anticipated Discharge Disposition: home with assist, home with home health LYNDSAY HARP PTA Pager: [phone] Inpatient Physical Therapy 09/20/17 1132 Rehab Evaluation Document Type therapy note (daily note) Total Evaluation Minutes, Physical Therapy 23 (TE-F 2) Patient Effort excellent Symptoms Noted During/After Treatment shortness of breath (WOB) General Information Patient/Family/Caregiver Comments/Observations I want to get up in move. Pertinent History of Current Problem 67 y/o M with PMHx CAD s/p 4v CABG on ASA, Afib on Eliquis, DM2 c/b neuropathy, Etoh use, pancreatitis w/ pseudocyst n 2003, COPD, gastric cancer (s/p ?partial gastrectomy in 2000, c/b surgical flap infection and removal of 4 left ribs), back pain on chronic opiates who presents in transfer from [facility] today with upper GI bleed Precautions/Restrictions fall Treatment Number PT 2 Vital Signs SpO2 95 % O2 Device RA Pain Scale/Rating Pain Assessment Scale Numbers (Numeric Rating Pain Scale) Pain Level 0 Mobility Assessment/Training Additional Documentation Gait Assessment/Treatment (Group);Transfer Assessment/Treatment (Group) Transfer Assessment/Treatment [place] (Sit-Stand Transfers) supervision required [place] (Stand-Sit Transfers) supervision required [id number] Assistive Device (Transfers) rolling walker (vs no AD) Impairments (Transfers) ROM (range of motion) decreased;strength decreased (endurance) Gait Assessment/Treatment [place] (Gait) supervision required Assistive Device (Gait) rolling walker (Trial without AD, decrease step length and gait speed) Distance in Feet (Gait) 120 Deviations (Gait) mikayla decreased;step length decreased;stride length decreased Impairments (Gait) (Increased WOB) Comment (Gait) Recommended use of FWW for ambulating Physical Therapy Goal Types Physical Therapy Goal Types Gait Training Goal (Group) Gait Training Goal Gait Training Goal, Time to Achieve 5 - 7 days Gait Training Goal, [place] Level conditional independence Gait Training Goal, Assist Device cane, straight (or walker) Gait Training Goal, Distance to Achieve 150 Gait Training Goal, Outcome goal ongoing Clinical Impression Therapy Frequency 1-3 times/wk Anticipated Discharge Disposition home with assist;home with home health * Plan of Care - Meredith Campo OT - 09/20/2017 10:53 AM EDT Occupational Therapy Evaluation Pertinent History of Current Problem: 67 y/o M with PMHx CAD s/p 4v CABG on ASA, Afib on Eliquis, DM2 c/b neuropathy, Etoh use, pancreatitis w/ pseudocyst n 2003, COPD, gastric cancer (s/p ?partial gastrectomy in 2000, c/b surgical flap infection and removal of 4 left ribs), back pain on chronic opiates who presents in transfer from [facility] today with upper GI bleed Precautions/Restrictions: fall Precautions Comments: carb control diet; LOVE Assessment: Pt has been seen for occupational therapy evaluation, please refer to associated flowsheet data listed below for details. Nain Kang presents with the following performance skill deficits and client factors: balance, functional activity tolerance, pulmonary functioning, and edema. These performance deficits have led to activity limitations and participation restrictions in thefollowing areas of occupation: dressing, bathing, grooming, toileting, mobility, transferring, rest/sleep, home management, roles/routines, leisure, driving, community mobility, and social participation. Pt exhibited increased WOB and SOB with minimal exertion while performing his activities of daily living. He would benefit from ADL retraining and energy conservation education to promote activity tolerance needed for independent self-care management at home. Pt would benefit from further inpatient OT interventions to address performance deficits and maximize participation and independence with occupations of daily living. Staff Recommendations: Encourage OOB activity and participation in all self care tasks Anticipated Discharge Disposition: (S) home with assist, home with home health Pager: [phone] Meredith Campo OT 09/20/2017 Occupational Therapy Rehabilitation Department 09/20/17 1029 Rehab Evaluation Document Type evaluation Total Evaluation Minutes, Occupational Therapy 20 (evaluation and self-care) Patient Effort excellent Symptoms Noted During/After Treatment shortness of breath General Information Patient Profile Review yes Patient/Family/Caregiver Comments/Observations That wasn't happening at home. pt comment regarding SOB. General Observations of Patient Pt sitting up in chair, awake. Pertinent History of Current Problem 67 y/o M with PMHx CAD s/p 4v CABG on ASA, Afib on Eliquis, DM2 c/b neuropathy, Etoh use, pancreatitis w/ pseudocyst n 2003, COPD, gastric cancer (s/p ?partial gastrectomy in 2000, c/b surgical flap infection and removal of 4 left ribs), back pain on chronic opiates who presents in transfer from [facility] today with upper GI bleed Hearing Precautions/Limitations WFL Precautions/Restrictions fall Precautions Comments carb control diet; LOVE Treatment Number OT 1 Living Environment Patient population Adult Living Environment Living Environment Comment Pt lives alone in a 2nd floor apartment that has elevator access and a ramp at the building's entrance. DME: cane and a FWW Functional Level Prior Prior Functional Level Comment Pt is retired and independent with I/ADL's. He drives and does his own cooking, cleaning, and shopping. He gets meals on wheels. Self-Care Dominant Hand right Vital Signs Heart Rate 82 (at rest) SpO2 96 % (drops to 91 after brief ADL task) O2 Device RA Vision Assessment/Intervention Additional Documentation Vision Assessment/Intervention (Group) Vision Assessment/Intervention Visual Impairment/Limitations corrective lenses for reading Cognitive Assessment/Intervention Additional Documentation Cognitive Assessment Interventions (Group) Cognitive Assessment Interventions Behavior/Mood Observations (Cognitive) behavior appropriate to situation;alert;cooperative Orientation Status (Cognitive) oriented x 4 Attention (Cognitive) WNL/WFL Follows Commands/Answers Questions (Cognitive) able to follow multi-step instructions Personal Safety (Cognitive) decreased insight to deficits Pain Scale/Rating Pain Assessment Scale Numbers (Numeric Rating Pain Scale) Pain Level 0 ROM (Range of Motion) Additional Documentation General Assessment (Group) General Range of Motion no range of motion deficits identified General Range of Motion Detail BUE WFL for ADLs MMT (Manual Muscle Testing) General Manual Muscle Testing Assessment Detail BUE 4/5 shoulders > 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 Gait Assessment/Treatment [place] (Gait) supervision required Assistive Device (Gait) rolling walker Comment (Gait) Pt ambulated to/from bathroom; no LOB observed. ADL Assessment/Intervention Additional Documentation Bathing Assessment/Training (Group);Grooming Assessment/Training (Group);Lower Body Dressing Assessment/Training (Group);Toileting Assessment/Training (Group);Upper Body Dressing Assessment/Training (Group) Bathing Assessment/Training [place] Level (Bathing) minimum assist (75% patient effort) Comment (Bathing) Pt reports he has been able to wash without assist Upper Body Dressing Assessment/Training [place] Level (UB Dressing) independent Lower Body Dressing Assessment/Training [place] Level (LB Dressing) conditional independence Comment (LB Dressing) FWW for balance during pants hike Toileting Assessment/Training [place] Level (Toileting) conditional independence Comment (Toileting) pt managed clothing and hygiene without assist Grooming Assessment/Training [place] Level (Grooming) set up required Comment (Grooming) Per pt and RN, pt combed his hair, brushed his teeth and shaved Occupational Therapy Goal Types Occupational Therapy Goal Types Occupational Therapy Goal (Group) Occupational Therapy Goal OT Goal, Date Established 09/20/17 OT Goal, Time to Achieve 5 days OT Goal, Activity Type Pt will self-pace his ADL routine using energy conservation techniques with </= 2 vc's. OT Goal, Additional Goal Pt will score an RPE of < 12 of the Russell Scale during I/ADL tasks Clinical Impression Criteria for Skilled Therapeutic Interventions Met yes;treatment indicated Rehab Potential good, to achieve stated therapy goals Therapy Frequency 1-3 more visits Anticipated Discharge Disposition home with assist;home with home health General Therapy Interventions Additional Documentation Planned Therapy Interventions (Group) Planned Therapy Interventions ADL retraining;IADL retraining 2017 OT Evaluation Code Rationale: ?? Diagnosis & Pertinent Co-Morbidities affecting Plan of Care: see PMHx ?? Occupational Profile & Client History: Brief Expanded Extensive x ?? Assessment of Occupational Performance: 1-3 performance deficits 3-5 performance deficits x 5 + performance deficits ?? Clinical Decision Making: Low Moderate High x Clinical decision making of moderate complexity using standardized patient assessment instrument and measurable assessment of functional outcome. * Plan of Care - Yvette Aranda RN - 09/20/2017 5:16 AM EDT Problem: Patient Care Overview Goal: Plan of Care Review Outcome: Ongoing (Interventions Implemented as Appropriate) 09/20/17 0509 Coping/Psychosocial Plan Of Care Reviewed With patient Plan of Care Review Progress progress toward functional goals is gradual OUTCOME EVALUATION NOTE: OUTCOME SUMMARY: Pt admitted 09/13/17 with UGIB. Pt has been stable overnight, no s/s of active bleeding noted. VSS. Pt reports upper abdominal pain - requested and received prn oxycodone with good effect. Pt with flat affect and vague reports of SOB and LOVE. O2 sats 96% on RA. Lungs with coarse breath sounds at bases bilaterally. BM x 1 this shift, formed, dark in color. No overt bleeding noted. Bilateral LEs with 4+ edema from toe to knee. Pt encouraged to elevate LEs on pillows. Pt up in chair all night. Will continue to monitor. PLAN MOVING FORWARD: Closely monitor VS, labs, assessments. Medicate as needed and as ordered. Inform MD of any changes. INDIVIDUALIZED FALL PREVENTION INTERVENTIONS: Patient-specific fall risk factors per assessment: [current deficits]: Weakness, edema, pain Assistance [level of assistance required for transfers and ambulation]: 1 assist for transfers and ambulation Supervision [direct monitoring required during toileting and ADLs]: Eyes on if OOB for toileting, 1assist for ADLs Surveillance [continuous indirect monitoring]: Hourly rounding, bed/chair alarm Patient-specific fall prevention interventions for sensory deficits provided, if applicable: [X] Yes, call prasad within easy reach, side rails up x 2-3, nonslip socks on if OOB, PT consult CPG GOAL OUTCOME EVALUATION: * Plan of Care - Jake Carlson RN - 09/19/2017 8:15 PM EDT Problem: Patient Care Overview Goal: Plan of Care Review Outcome: Ongoing (Interventions Implemented as Appropriate) 09/19/172007 Coping/Psychosocial Plan Of Care Reviewed With patient Plan of Care Review Progress no change OUTCOME EVALUATION NOTE: OUTCOME SUMMARY: Pt alert and oriented, flat affect. Cooperative with medication regimen. Ambulated in the posey and reported SOB. Recovered to 100% O2 sat on RA after resting for 5 minutes. Diet upgraded to carb controlled. Pt reported abdominal pain and was medicated accordingly. Had good appetite for dinner. 2 BMs this shift. Pt reported abdominal discomfort in the epigastric area after dinner. Tums admin. aware. New med order acknowledged, see MAR. Pt sat in chair throughout the shift, continue to monitor, safety maintained. PLAN MOVING FORWARD: Encourage ambulation, promote adequate fluid and nutritional intake, monitor for bleeding, pain management. INDIVIDUALIZED FALL PREVENTION INTERVENTIONS: Patient-specific fall risk factors per assessment: [current deficits]: Generalized weakness, pain, IV access. Assistance [level of assistance required for transfers and ambulation]: 1 person assist. Supervision [direct monitoring required during toileting and ADLs]: 1 person assist. Surveillance [continuous indirect monitoring]: Purposeful rounding. Patient-specific fall prevention interventions for sensory deficits provided, if applicable: [X] N/A CPG GOAL OUTCOME EVALUATION: Goal: Fall Prevention-Safe Patient Handling Outcome: Ongoing (Interventions Implemented as Appropriate) 09/19/17 0953 09/19/17 1604 [place] Fall Risk History of Falling 25 -- Secondary Diagnosis 15 -- Ambulatory Aids 15 -- Intravenous Therapy/Heparin/Saline Lock 20 -- Gait/Transferring 0 -- Mental Status 0 -- Score 75 -- OTHER [place] Fall Risk High -- Restraint Interventions Safety Promotion/Fall Prevention -- activity supervised;fall prevention program maintained;nonskid shoes/slippers when out of bed Positioning Body Position -- up in chair Activity Activity Type activity adjusted per tolerance;ambulated in posey;ambulated in room;ambulated to bathroom;up in chair -- Activity Assistance Provided assistance, 1 person -- Assistive Device Utilized front-wheel walker -- Goal: Infection Control Outcome: Ongoing (Interventions Implemented as Appropriate) 09/19/1753 09/19/17 1604 Safety Interventions Isolation Precautions -- standard precautions maintained Infection Prevention -- single patient room provided Coping Strategies Supportive Measures active listening utilized;verbalization of feelings encouraged;self-responsibility promoted;self-care encouraged -- * Plan of Care - Michelle Coker RN - 09/19/2017 6:05 AM EDT Problem: Patient Care Overview Goal: Plan of Care Review Outcome: Ongoing (Interventions Implemented as Appropriate) 09/18/17 1850 09/18/17 2200 Coping/Psychosocial Plan Of Care Reviewed With -- patient Plan of Care Review Progress progress towards functional goals is fair -- OUTCOME EVALUATION NOTE: OUTCOME SUMMARY: Patient alert and oriented to questions, although appears to be wifty at times andlethargic. Reports 5/10 pain described as pressure to his abdomen radiating to his back- scheduled Tylenol given w/ positive effect. Patient complaining majority of the night about something in his left eye- nothing visualized in the eye. Refresh drops ordered and applied twice w/ some reported effect. BP remained soft, though no signs of bleeding evident this shift. Awaiting Hbg. Will cont to monitor and notify team w/ changes. PLAN MOVING FORWARD: Monitor Hbg and signs of bleeding, discharge planning INDIVIDUALIZED FALL PREVENTION INTERVENTIONS: Patient-specific fall risk factors per assessment: [current deficits]: IV sites, Masimo, weakness, LOVE Assistance [level of assistance required for transfers and ambulation]: 1 assist w/ walker Supervision [direct monitoring required during toileting and ADLs]: Hands on Surveillance [continuous indirect monitoring]: Purposeful rounding, nurse knowledge exchange Patient-specific fall prevention interventions for sensory deficits provided, if applicable: No CPG GOAL OUTCOME EVALUATION: * Plan of Care - Jake Carlson RN - 09/18/2017 6:56 PM EDT Problem: Patient Care Overview Goal: Plan of Care Review Outcome: Ongoing (Interventions Implemented as Appropriate) 09/18/17 1850 Coping/Psychosocial Plan Of Care Reviewed With patient Plan of Care Review Progress progress towards functional goals is fair OUTCOME EVALUATION NOTE: OUTCOME SUMMARY: Pt alert and oriented, cooperative with medication regimen. NPO in the am for procedure, see endoscopy results in docflow. Diet upgraded to full liquid. Reported pain and medicated accordingly. NS continuous infusion at 100ml/hr monitored. BP running low during the shift. Continue to monitor, safety maintained. PLAN MOVING FORWARD: Encourage adequate fluid and nutritional intake, pain management. INDIVIDUALIZED FALL PREVENTION INTERVENTIONS: Patient-specific fall risk factors per assessment: [current deficits]: Pain, generalized weakness, continuous infusion. Assistance [level of assistance required for transfers and ambulation]: 1 person assist. Supervision [direct monitoring required during toileting and ADLs]: 1 person assist. Surveillance [continuous indirect monitoring]: Purposeful rounding. Patient-specific fall prevention interventions for sensory deficits provided, if applicable: [X] N/A CPG GOAL OUTCOME EVALUATION: Goal: Fall Prevention-Safe Patient Handling Outcome: Ongoing (Interventions Implemented as Appropriate) 09/18/17 1141 09/18/17 1627 09/18/17 1742 [place] Fall Risk History of Falling 25 -- -- Secondary Diagnosis 15 -- -- Ambulatory Aids 15 -- -- Intravenous Therapy/Heparin/Saline Lock 20 -- -- Gait/Transferring 10 -- -- Mental Status 0 -- -- Score 85 -- -- OTHER [place] Fall Risk High -- -- Restraint Interventions Safety Promotion/Fall Prevention -- safety round/check completed -- Positioning Body Position -- -- independent Activity Activity Type -- -- activity adjusted per tolerance;ambulated to bathroom Activity Assistance Provided -- -- assistance, 1 person Assistive Device Utilized -- -- front-wheel walker Goal: Infection Control Outcome: Ongoing (Interventions Implemented as Appropriate) 09/18/17 1141 09/18/17 1627 Safety Interventions Isolation Precautions -- standard precautions maintained Infection Prevention -- environmental surveillance performed Coping Strategies Supportive Measures active listening utilized;verbalization of feelings encouraged -- * Plan of Care - Hazel Eaton RN - 09/18/2017 6:46 AM EDT Problem: Patient Care Overview Goal: Plan of Care Review Outcome: Ongoing (Interventions Implemented as Appropriate) 09/18/17 0433 Coping/Psychosocial Plan Of Care Reviewed With patient Plan of Care Review Progress declining OUTCOME EVALUATION NOTE: OUTCOME SUMMARY: A&O x4. VSS on RA overnight. Reports pain to low back & upper abd, medicated w/ scheduled tylenol & prn oxy x1 w/ +effect. Denies CP, SOB, n/v, numbness or tingling. At start of shift, ptw/ ~200cc hemoptysis, bright red blood - PONY CYLINDER PRESS OPERATOR made aware. Pt made NPO, maint IVF initiated & infusing per orders. H&H drawn x2, 2pt drop within 24hr period - see results review. PONY CYLINDER PRESS OPERATOR & [employer] RN notified. 1u pRBCs ordered & administered. Repeat H&H drawn, awaiting results (see results review). Per PONY CYLINDER PRESS OPERATOR, GI to follow up this a.m. Sleeping between care. Call prasad maintained within reach at all times, pt able to make needs known. Will continue to monitor & notify MD of any changes. PLAN MOVING FORWARD: NPO, IVF Monitor labs (H&H) & VS Monitor for s/s bleeding, anticoags on hold per orders Pain management INDIVIDUALIZED FALL PREVENTION INTERVENTIONS: Patient-specific fall risk factors per assessment: [current deficits]: High fall risk - generalizedweakness, history of falls, low Hgb, medical equipment Assistance [level of assistance required for transfers and ambulation]: 1A w/ front wheel walker Supervision [direct monitoring required during toileting and ADLs]: Eyes on/hands on Surveillance [continuous indirect monitoring]: Bed/chair alarm, purposeful rounding, room near unitstation Patient-specific fall prevention interventions for sensory deficits provided, if applicable: [X] Yes CPG GOAL OUTCOME EVALUATION: * Plan of Care - Blank Goldstein RN - 09/17/2017 6:53 PM EDT Problem: Patient Care Overview Goal: Plan of Care Review Outcome: Ongoing (Interventions Implemented as Appropriate) 09/15/17 0400 09/17/17 1147 Coping/Psychosocial Plan Of Care Reviewed With -- patient Plan of Care Review Progress no change -- OUTCOME EVALUATION NOTE: OUTCOME SUMMARY: Patient had difficulty with pain control, had pain that radiated across his lower back, MD contacted and assessed patient. Oxycodone given x 3, tylenol scheduled given and bengay applied with minimaleffect. Patient given lactulose for constipation and was able to have three bm's today in the toilet, all formed and black. Patient continues to use the urinal at bedside. +2 pitting edema in bilateral feet, MD aware. PLAN MOVING FORWARD: Pain control, medical stability INDIVIDUALIZED FALL PREVENTION INTERVENTIONS: bed alarm, chair alarm, call prasad Patient-specific fall risk factors per assessment: [current deficits]: Unsteady gait Assistance [level of assistance required for transfers and ambulation]: One assist with walker Supervision [direct monitoring required during toileting and ADLs]: One assist with walker Surveillance [continuous indirect monitoring]: Purposeful rounding Patient-specific fall prevention interventions for sensory deficits provided, if applicable: CPG GOAL OUTCOME EVALUATION: * Plan of Care - Kerry Chan RN - 09/17/2017 6:22 AM EDT Problem: Patient Care Overview Goal: Plan of Care Review Outcome: Ongoing (Interventions Implemented as Appropriate) 09/15/17 0400 09/16/17 2216 Coping/Psychosocial Plan Of Care Reviewed With -- patient Plan of Care Review Progress no change -- OUTCOME EVALUATION NOTE: OUTCOME SUMMARY: Pt A&Ox4,BP soft last two BPs taken read 90 systolically. Order to call team if systolic is below 90. flat affect cooperative and calm. Pt complained of pain in top of abdomen, prn pain med givenwith good effect. Pt requested an increase in stool meds, will pass request on to day team. Pt complained of heartburn, team ordered TUMS, pt fell asleep and did not receive TUMS, heartburn resolved on its own per pt report. Pt is able to make needs known and uses call prasad appropriately. PLAN MOVING FORWARD: Monitor pt VS, pain management, bowel meds, monitor for signs of GI bleed, or bleeding INDIVIDUALIZED FALL PREVENTION INTERVENTIONS: Patient-specific fall risk factors per assessment: [current deficits]: General weakness, soft BPs, masimo cord Assistance [level of assistance required for transfers and ambulation]: 1 assist with walker Supervision [direct monitoring required during toileting and ADLs]: eyes on Surveillance [continuous indirect monitoring]: Call prasad within reach ,hourly rounding, room near nurse station Patient-specific fall prevention interventions for sensory deficits provided, if applicable: [X] No CPG GOAL OUTCOME EVALUATION: * Plan of Care - Parth High RN - 09/15/2017 6:11 PM EDT Problem: Gastrointestinal Bleeding (Adult) Goal: Signs and Symptoms of Listed Potential Problems Will be Absent, Minimized or Managed (Gastrointestinal Bleeding) Signs and symptoms of listed potential problems will be absent, minimized or managed by discharge/transition of care (reference Gastrointestinal Bleeding (Adult) CPG). Outcome: Ongoing (Interventions Implemented as Appropriate) 09/15/17 1809 Gastrointestinal Bleeding Problems Assessed (GI Bleeding) all OUTCOME EVALUATION NOTE: OUTCOME SUMMARY: Pt remains A/Ox4, on RA, VSS. Pt OOB to chair and walked a lap around the unit and tolerating well.Pts diet increased to carb control with no issues. Pt experiencing a SALINAS and abdominal pain, oxy administered x1 with good effect. PLAN MOVING FORWARD: Transfer out of ICU INDIVIDUALIZED FALL PREVENTION INTERVENTIONS: Patient-specific fall risk factors per assessment: [current deficits]: Lines, generalized weakness Assistance [level of assistance required for transfers and ambulation]: 1-2 assist Supervision [direct monitoring required during toileting and ADLs]: Room near nurses station, frequent visual checks Surveillance [continuous indirect monitoring]: [facility] Patient-specific fall prevention interventions for sensory deficits provided, if applicable: CPG GOAL OUTCOME EVALUATION: * Plan of Care - Niharika Atkinson RN - 09/15/2017 4:04 AM EDT Problem: Patient Care Overview Goal: Plan of Care Review Outcome: Ongoing (Interventions Implemented as Appropriate) 09/15/17 0400 Coping/Psychosocial Plan Of Care Reviewed With patient Plan of Care Review Progress no change OUTCOME EVALUATION NOTE: OUTCOME SUMMARY: A/Ox4. Turning self in bed throughout night. Using urinal independently. Hemoglobin drop overnight to 9 at 2000. Drop to 8.2 at 0330. Medicine team [id number] paged x2. [place] added to PRN, pt states that he has chronic back pain. HR down to 50s when asleep. 75ml/hr LR running. PLAN MOVING FORWARD: Transfer. Monitor hemoglobin INDIVIDUALIZED FALL PREVENTION INTERVENTIONS: Patient-specific fall risk factors per assessment: [current deficits]: Lines Assistance [level of assistance required for transfers and ambulation]: 1 assist Supervision [direct monitoring required during toileting and ADLs]: Close to nurse station, Frequent rounding Surveillance [continuous indirect monitoring]: Bed alarm, ICU [facility] Patient-specific fall prevention interventions for sensory deficits provided, if applicable: [X] Yes CPG GOAL OUTCOME EVALUATION: * Plan of Care - Parth High RN - 09/14/2017 5:16 PM EDT Problem: Gastrointestinal Bleeding (Adult) Goal: Signs and Symptoms of Listed Potential Problems Will be Absent, Minimized or Managed (Gastrointestinal Bleeding) Signs and symptoms of listed potential problems will be absent, minimized or managed by discharge/transition of care (reference Gastrointestinal Bleeding (Adult) CPG). Outcome: Ongoing (Interventions Implemented as Appropriate) 09/14/17 1712 Gastrointestinal Bleeding Problems Assessed (GI Bleeding) all OUTCOME EVALUATION NOTE: OUTCOME SUMMARY: Pt remains on RA, A/Ox4, OOB to chair, US of abdomen completed. No signs of active bleeding, pt VSS. Diet advanced to full liquid. PLAN MOVING FORWARD: Transfer pt INDIVIDUALIZED FALL PREVENTION INTERVENTIONS: Patient-specific fall risk factors per assessment: [current deficits]: Lines, generalized weakness Assistance [level of assistance required for transfers and ambulation]: 1-2 assist Supervision [direct monitoring required during toileting and ADLs]: Room near nurses station, frequent visual checks Surveillance [continuous indirect monitoring]: [place] [facility] Patient-specific fall prevention interventions for sensory deficits provided, if applicable: CPG GOAL OUTCOME EVALUATION: * Plan of Care - Malena Shi, PT - 09/14/2017 11:30 AM EDT Physical Therapy Evaluation Pertinent History of Current Problem: 67 y/o M with PMHx CAD s/p 4v CABG on ASA, Afib on Eliquis, DM2 c/b neuropathy, Etoh use, pancreatitis w/ pseudocyst n 2003, COPD, gastric cancer (s/p ?partial gastrectomy in 2000, c/b surgical flap infection and removal of 4 left ribs), back pain on chronic opiates who presents in transfer from [facility] today with upper GI bleed Precautions/Restrictions: fall Precautions Comments: skin breakdown, clear liquid, PRBCs recently for low hgb Assessment: Pt presents to physical therapy evaluation with the following functional limitations and impairments; decreased activity tolerance and gait deviations. Pt was able to navigate OOB and ambulate to doorway with walker however unable to progress further secondary to dizziness. Vital signs largely stable with noted a-fib. Medical work-up continues. Will re-assess patient closer to time ofdischarge for readiness to return home and DME needs. Please continue to promote ambulation 3x/day and up to chair for all meals when diet advanced. Please see associated flow sheet data below for objective information regarding today's session Staff Mobility Recommendations: One assist with walker Anticipated Discharge Disposition: home with assist, home with home health MALENA SHI, PT Pager: [phone] Inpatient Physical Therapy 2017 PT Evaluation Code Rationale: ?? Diagnosis & Pertinent Co-Morbidities, personal factors, and present illness affecting Plan of Care: Patient Active Problem List Diagnosis Code ??? Acute upper GI bleed K92.2 ??? Iron deficiency anemia due to chronic blood loss D50.0 ??? ETOH abuse F10.10 ??? History of GI tract cancer Z85.00 ??? Paroxysmal atrial fibrillation I48.0 ??? History of ASCVD Z86.79 ??? Chronic back pain M54.9, G89.29 ??? Type 2 diabetes mellitus with neurologic complication, without long-term current use of [id number] ??? Pancreatitis c/b pseudocyst/cyst 2003 K86.2, K86.3 ??? Depression F32.9 ??? COPD (chronic obstructive pulmonary disease) J44.9 ??? Tobacco abuse disorder Z72.0 Additional personal factors or co-morbidities that impact plan: ?? Total # of Factors: 0 1-2 3+ X ?? Examination of body system impairments, functional limitations and behaviors, and/or participation restrictions. Addressing 1-2 elements Addressing 3 + elements X Addressing 4 + elements ?? Clinical presentation: See assessment above. Stable/Uncomplicated Evolving/Fluctuating Symptoms Unstable/Unpredictable X ?? Clinical decision making of high complexity based on pt's functional performance as outlined in this evaluation. 09/14/17 1130 Rehab Evaluation Document Type evaluation Total Evaluation Minutes, Physical Therapy 30 (one eval) Patient Effort excellent Symptoms Noted During/After Treatment dizziness General Information Patient/Family/Caregiver Comments/Observations I was using the walker at the other hospital but I usually use a cane. Pertinent History of Current Problem 67 y/o M with PMHx CAD s/p 4v CABG on ASA, Afib on Eliquis, DM2 c/b neuropathy, Etoh use, pancreatitis w/ pseudocyst n 2003, COPD, gastric cancer (s/p ?partial gastrectomy in 2000, c/b surgical flap infection and removal of 4 left ribs), back pain on chronic opiates who presents in transfer from [facility] today with upper GI bleed Precautions/Restrictions fall Precautions Comments skin breakdown, clear liquid, PRBCs recently for low hgb Treatment Number PT 1 Living Environment Patient population Adult Living Environment Living Environment Comment Lives alone in an apartment complex, elevator access, uses a cane, independent prior to admission, no longer working. Self-Care Dominant Hand right Vital Signs Heart Rate 73 (a-fib) SpO2 98 % O2 Device RA Vision Assessment/Intervention Additional Documentation Vision Assessment/Intervention (Group) Cognitive Assessment/Intervention Additional Documentation Cognitive Assessment Interventions (Group) Cognitive Assessment Interventions Behavior/Mood Observations (Cognitive) lethargic;flat affect Orientation Status (Cognitive) oriented to;person;place;situation Cognitive Assessment/Interventions Comment offers minimal information, vague regarding symptoms Pain Scale/Rating Pain Assessment Scale Numbers (Numeric Rating Pain Scale) Pain Level 0 MMT (Manual Muscle Testing) Additional Documentation General Assessment (Group) General Manual Muscle Testing Assessment Detail moving all extremities equally against gravity, 3-/5 Mobility Assessment/Training Additional Documentation Bed Mobility Assessment/Treatment (Group);Gait Assessment/Treatment (Group);Transfer Assessment/Treatment (Group) Bed Mobility Assessment/Treatment Assistive Device (Bed Mobility) other (see comments) (flat bed, seat deflate) Scoot/Bridge [place] (Bed Mobility) supervision required;verbal cues required (donned pants) [id number] [place] (Bed Mobility) supervision required Comment (Bed Mobility) cues for initiation of movement Transfer Assessment/Treatment Bed-Chair [place] (Transfers) contact guard assist Ism-Vnobo-Ihw Assistive Device (Transfers) rolling walker [place] (Sit-Stand Transfers) contact guard assist [place] (Stand-Sit Transfers) contact guard assist [id number]-[id number]-Vxl Assistive Device (Transfers) rolling walker Comment (Transfers) cues for initiation of movement Gait Assessment/Treatment [place] (Gait) contact guard assist Assistive Device (Gait) rolling walker Distance in Feet (Gait) 30' Gait Pattern Analysis swing-through gait Deviations (Gait) mikayla decreased (high steppage gait quality) Comment (Gait) +dizziness reported by patient prompting return to chair, BP stable, O2 stable, +a-fib AM-PAC Basic Mobility AM-PAC Mobility Completed? Yes How much difficulty does the patient currently have turning over in bed (including adjusting bedclothes, sheets and blankets)? 4 - None How much difficulty does the patient currently have sitting down on and standing up from a chair without arms (e.g. wheelchair, bedside commode etc. )? 4 - None How much difficulty does the patient currently have moving from lying to back to sitting on the side of the bed? 4 - None How much help from another person does the patient currently need moving to and from a bed to a chair (including a wheelchair)? 4 - None How much help from another person does the patient currently need to walk in the hospital room? 4 -None How much help from another person does the patient currently need clmibing 3-5 steps with a railing? 4 - None AM-PAC Basic Mobility Raw Score 24 Basic Mobility Standardized T-Scale Score 61.14 Basic Mobility CMS 0-100% 0 AM-PAC Basic Mobility CMS Modifier CH Motor Skills/Interventions Additional Documentation Balance Skills Training (Group) Balance Skills Training Training Strategies (Balance) one mild LOB walking backwards with self correction Sitting Balance: Static good balance Sitting Balance: Dynamic good balance [id number] Balance fair balance Standing Balance: Static good balance (tying pants) Standing Balance: Dynamic fair balance Plan of Care Review Plan Of Care Reviewed With patient Progress progress toward functional goals as expected Physical Therapy Goal Types Physical Therapy Goal Types Gait Training Goal (Group) Gait Training Goal Gait Training Goal, Date Established 09/14/17 Gait Training Goal, Time to Achieve 5 - 7 days Gait Training Goal, [place] Level conditional independence Gait Training Goal, Assist Device cane, straight (or walker) Gait Training Goal, Distance to Achieve 150' Clinical Impression Therapy Frequency 1-3 times/wk Anticipated Equipment Needs at Discharge (TBD) Anticipated Discharge Disposition home with assist;home with home health Demonstrates Need for Referral to Another Service occupational therapy General Interventions Additional Documentation Planned Therapy Interventions (Group) Planned Therapy Interventions gait training;patient/family education G-Code: Mobility Status Modifier CURRENT CH - 0 percent impaired, limited or restricted PROJECTED CH - 0 percent impaired, limited or restricted DISCHARGE Not Discharged Yet - Ongoing G Code Rationale: This G-Code and these disability modifiers were selected as the primary therapy goal based upon the patient's evaluation including the following functional test(s) AM-PAC - ActivityMeasure for Post-Acute Care. Current ability measures, co-morbidities and clinical judgement were also used to select the disability modifier. Mr. Jorge Luis's current G-Code functional level is 0% impaired based upon [facility] * Plan of Care - Roxann Alanis RN - 09/14/2017 4:45 AM EDT Problem: Patient Care Overview Goal: Plan of Care Review Outcome: Ongoing (Interventions Implemented as Appropriate) 09/14/17 0440 Coping/Psychosocial Plan Of Care Reviewed With patient Plan of Care Review Progress progress towards functional goals is fair OUTCOME EVALUATION NOTE: OUTCOME SUMMARY: A&Ox4, sometimes slightly confused at first when waking up from sleeping, follows commands appropriately. VSS, afib, afebrile. Hemoglobin decreased to 7.7 and 1 unit RBCs transfused with positive effect of hemoglobin increasedto 10.2 by 0415. Continue to monitor patient closely for s/s of active bleeding. Good u/o into urinal. No emesis or BM during this shift. Bowel sounds active and audible in all quadrants. Abdomen contour irregular due to previous procedures. PLAN MOVING FORWARD: Continue to monitor patient closely for s/s of active bleeding. Possible EGD in AM due to hemoglobins overnight. INDIVIDUALIZED FALL PREVENTION INTERVENTIONS: Patient-specific fall risk factors per assessment: [current deficits]: Fall precautions maintained,bed alarm on, call prasad within reach. Supervision [direct monitoring required during toileting and ADLs]: BADLs provided, oral, perineal and perinanal care performed. Pt independently repositioning, stating he did not need help turning. Surveillance [continuous indirect monitoring]: Hourly safety rounding Patient-specific fall prevention interventions for sensory deficits provided, if applicable: [X] N/A CPG GOAL OUTCOME EVALUATION: * Plan of Care - Parth High RN - 09/13/2017 6:43 PM EDT Problem: Gastrointestinal Bleeding (Adult) Goal: Signs and Symptoms of Listed Potential Problems Will be Absent, Minimized or Managed (Gastrointestinal Bleeding) Signs and symptoms of listed potential problems will be absent, minimized or managed by discharge/transition of care (reference Gastrointestinal Bleeding (Adult) CPG). Outcome: Ongoing (Interventions Implemented as Appropriate) 09/13/17 9618 Gastrointestinal Bleeding Problems Assessed (GI Bleeding) all OUTCOME EVALUATION NOTE: OUTCOME SUMMARY: Pt arrived via [facility] from [facility], A/Ox4, 2LNC, received 4U of PRBC's prior to admission. Pt's VSS, Glory-fib. No signs of active bleeds. Pt brought to endo and scoped there. Pt returned with no complications and recovering from anesthesia. Protonix and vitamin bag infusing. PLAN MOVING FORWARD: Monitor for S/S of bleeding INDIVIDUALIZED FALL PREVENTION INTERVENTIONS: Patient-specific fall risk factors per assessment: [current deficits]: Lines, drains, generalized weakness Assistance [level of assistance required for transfers and ambulation]: 2 assist Supervision [direct monitoring required during toileting and ADLs]: Room near nurses station, frequent visual checks Surveillance [continuous indirect monitoring]: [facility] Patient-specific fall prevention interventions for sensory deficits provided, if applicable: CPG GOAL OUTCOME EVALUATION: * Initial Assessments - Mio Nelson RN - 09/13/2017 4:08 PM EDT Office of Care Management Initial Assessment Mio Nelson RN reviewed record and discussed patient with Care Team. Source of Information: [facility] Green Team, bedside nurse, chart review, interviewing patient and/or their family. Introduced self/reviewed role; services accepted. Admisson Status: Patient admitted under IP status; signed by Zack Hood MD on 09/13/17 @ 2120 Reason for Hospitalization: <principal problem not specified> Per ICU H&P admit note: 67 y.o. male with a PMH significant for CAD (s/p 4 vessel CABG, on aspirin), afib (on eliquis), DM2, EtOH use (pancreatitis with pseudocyst in 2003), COPD, esophageal cancer (s/p esophagogastrectomy in 2000, c/b surgical flap infection and removal of 4 left ribs), back pain on chronic opiates who presents to [facility] today with upper GI bleed. Vera Ortiz PA No past medical history on file. Hospitalizations within the Past 30 Days: No [facility] admits in last 30 days. Transferred from [facility] to [facility] on 09/13 Anticipated Length Of Stay (If known): TBD Current Decision-Making Capacity: Patient is A&Ox3 with some confusion, poor historian He has current decision making capacity. Advance Care Planning: Full Code No AD in [facility]. CM will provided advance directive booklet and forms to patient and/or family and will discuss at alater time. [place] surrogacy law and process of guardianship will also be discussed If AD's have not been completed then (Patt Kang-Anthony/sister [phone] (h)) would be surrogate decision maker per [place] surrogate decision making law. Any patient receiving care at [facility] must abide by [place] law. The hierarchy for surrogate decision making [...] (i) The agent with financial power of real estate attorney or a conservator appointed in accordance with [place] 464-A. (j) The guardian of the patient???s estate. Current Coping/Education/Information Needs: Current coping questions and concerns have been addressed with patient and/or their family. They understand that when he moves to a regular floor he will work with another disease case manager rn until discharge. I really can't read. I usually act dumb and say that I don't have my glasses. Current Functional Ability: Activity as tolerated dependent on staff. PT consults ordered. Functional Status Prior to Admission: He reports that he fell 2 months ago. I was placing my dog down and loss my footing and tripped on the carpet and hit my head on the mailbox. I still have a parth here (points to scar on left side of forehead) and had bruising on my whole face. Tries to be as independent as possible but just before he was admitted I needed help getting to my bathroom. I used my cane and my neighbor held my other arm just to get to the bathroom. He has difficulty reading and needs assistance. Home Environment: lives alone at the below address. There are some stairs to enter the building andthen he takes the elevator to the second floor. 1 level living when inside apartment. [address] [facility] [id number] Social & Family Supports/Community Resources: sister, and neighbor Extended Emergency Contact Information Primary Emergency Contact: Lyudmila Bellamy Address: [address] [place] [address] [facility] Relation: Friend Secondary Emergency Contact: HermesPatt Address: [address] [place], [place] [address] [place] [address] Relation: Sibling Behavioral Health History: take wellbutrin but don't think it is for depression Substance Use/Abuse: Smoking hx: current smoker 1 ppd for a long time. EtOH hx: Per friend in [facility] ED, 3-4 months of heavy drinking. I drink a few beers a night. Illicit drug use hx: denies Other Pertinent/Service Specific Information: none Health/Prescription Coverage: Primary Insurance: MEDICARE Secondary Insurance: MEDICAID [place] Prescription Coverage: YES [facility]: [id number] [id number] Other: none Primary Care Provider: Silvina Perdue MD [phone] Patient/Caregiver Goals of Treatment: get better Potential Needs for Transition of Care: CM to discussed with patient levels of rehab including SNF/Rehab and VNA home health and hospice care when medically stable. Also to be discussed is the need to accept first bed available when patient is medically ready. Rehab/SNF: willing to go to [facility] [address] [place] [address] if needed Home Health: TBD willing to use [facility] [place]. PHONE: [phone] FAX: [phone] if needed DME: TBD (uses a cane at baseline) Dialysis: none Community Resources: none Transportation: TBD vs family Other: none Anticipated Barriers to Discharge/Special Considerations: none vs anticipated barriers to arise as hospitalization continues. Assessment: Patient will likely have a prolonged/short hospital stay. Advanced directives vs guardianship. Current discharge needs are uncertain but based on current medical status and medications patient would need SNF/Rehab vs home healthcare. Awaiting OT/PT referrals. Plan: A member of the Care Management team will continue to monitor progress, follow for continuityof care and assist with transition of care planning. Mio Nelson RN ICU Test Puller Pager [phone] * Consult Note - Marixa Vidales MD - 09/13/2017 2:37 PM EDT GASTROENTEROLOGY & HEPATOLOGY CONSULTATION Initial Consult Note Nain Kang 1950 [id number] Requesting Provider: Team Critical Care REASON FOR CONSULTATION GI bleeding, melena HISTORY OF PRESENT ILLNESS Nain Kang is a 67 y.o. year old CAD s/p CABG in 2000 on aspirin, atrial fibrillation on eliquis, DM, alcohol abuse, pancreatitis with pseudocyst, COPD, esophageal cancer s/p esophagectomy 2000, surgical flap infection with rib removal, chronic narcotic use who is admitted to [facility] for GI bleeding. Patient states that he presented to the emergency room after he took his blood pressure at home andfound himself to be severely hypotensive. He notes that he has been having abdominal pain for several months. This wraps around the upper abdomen and through to the back. For the past 3 days he has had a poor appetite. He denies dysphagia or odynophagia. He had one episode of melena yesterday which he describes as black, tarry and sticky. He denies any recent nausea or vomiting. Per chart review, the patient has a history of a remote esophagectomy in 2001. The patient does notremember this surgery and does not recall having esophageal cancer. He does remember stretching ofthe esophagus that he has undergone in the past. He has no known past history of liver disease. Noprior GI bleeding that he remembers. He does drink heavily. He reports about a 6 pack for 50 years but also has some hard liquor intermittently. He is a chronic tobacco user. ROS: 10 systems reviewed, as per HPI PAST MEDICAL/SURGICAL HISTORY: Reviewed with patient as per HPI and in eDH MEDICATIONS ??? octreotide (SandoSTATIN) intermittent IV 50 mcg Intravenous Once ??? cefTRIAXone 1 g Intravenous Q24H ??? octreotide acetate 50 mcg Intravenous Once ??? sodium chloride 0.9% ??? pantoprazole (PROTONIX) infusion 8 mg/hr (09/13/17 1417) ? ? octreotide (SandoSTATIN) (standard ADULT & Pedi greater than 20kg) infusion sodium chloride 0.9% ALLERGIES No Known Allergies SOCIAL HISTORY Social History Social History ??? Marital status: Spouse name: N/A ??? Number of children: N/A ??? Years of education: N/A Occupational History ??? Not on file. Social History Main Topics ??? Smoking status: Former Smoker ??? Smokeless tobacco: Not on file ??? Alcohol use Not on file ??? Drug use: Not on file ??? Sexual activity: Not on file Other Topics Concern ??? Not on file Social History Narrative ??? No narrative on file FAMILY HISTORY None relevant Vitals: 09/13/17 1305 09/13/17 1310 Temp: 36.4 ??C (97.5 ??F) TempSrc: Oral Weight: 63.3 kg (139 lb 8.8 oz) Height: 167.6 cm (5' 6) PHYSICAL EXAM GENERAL: Chronically ill-appearing. Slow response time to questioning HENT: AT/NC, Sclerae anicteric NECK is supple, no adenopathy CHEST: CTA to anterior auscultation. Midline sternotomy scar CARDIAC: Irregularly irregular rate and rhythm. No murmur ABDOMEN: Soft, nontender, normoactive bowel sounds. Hepatosplenomegaly present. Surgical scars at left upper quadrant with multiple ribs absent in that region. EXT: Warm, well-perfused. Bilateral lower extremity edema with pitting, right greater than left NEURO: moves all extremities. Asterixis present SKIN: No jaundice LABS: Lab Results Component Value Date Sodium 144 09/13/2017 Potassium 4.4 09/13/2017 Chloride 103 09/13/2017 CO2 23 09/13/2017 BUN 121 (H) 09/13/2017 Creatinine 1.77 (H) 09/13/2017 CBC Lab Results Component Value Date WBC 14.1 (H) 09/13/2017 Hemoglobin 9.5 (L) 09/13/2017 Hematocrit 28.7 (L) 09/13/2017 Platelets 160 09/13/2017 LFT's Lab Results Component Value Date Alk Phos 101 09/13/2017 AST 12 09/13/2017 Albumin 3.1 (L) 09/13/2017 Total Bilirubin 0.9 09/13/2017 ALT 8 09/13/2017 Total Protein 6.2 09/13/2017 IMAGING: Reviewed in eDH ENDOSCOPY: Reviewed in eDH IMPRESSION: Nain Kang is a 67 y.o. male with PMH significant for CAD s/p CABG in 2000 on aspirin, atrial fibrillation on eliquis, DM, alcohol abuse, pancreatitis with pseudocyst, COPD, esophageal cancers/p esophagectomy 2000, surgical flap infection with rib removal, chronic narcotic use who is admitted to [facility] for GI bleeding. Patient clearly describes melena yesterday and presented to the hospital today with anemia and hemoglobin of 6 for which he received 4 units RBC transfusion and FFP. He has been resuscitated, but remains borderline hypotensive at this time. Risk factors for bleedinginclude that he is maintained chronically on Eliquis for atrial fibrillation and aspirin for history of coronary disease. Given his significant alcohol abuse history and hepatomegaly on exam, there is also concerned that he may have chronic liver disease including cirrhosis. We recommend proceedingwith upper endoscopy this afternoon in case he has gastric varices in the remaining portion of the upper GI tract. Patient does have history of an esophagectomy and we are unsure of his anatomy at this time. Anastomotic ulcer, NSAID related ulcer, AVM, gastritis are all potential etiologies of current bleeding. Following endoscopy, he will also require an evaluation and workup for possible liver disease. RECOMMENDATIONS: - Proceed with EGD - Type and screen, fibrinogen - continue PPI gtt - continue octreotide for now - RUQ ultrasound with dopplers post-procedure - further recommendations to follow The plan as outlined above was discussed with Dr. Vidales. The recommendations were discussed with the primary team. Estrellita Gonzales MD Gastroenterology Fellow #[id number] Attending Addendum: I interviewed and examined the patient with Dr. Gonzales on rounds. I confirm the history and keyphysical findings outlined in this note. The assessment and plan were formulated in discussion withme at the time of this encounter, and I agree with them as documented. After EGD, it is not clear that the patient had an esophagectomy, although the stomach did appear surgically alter. Spoke with the primary team in regards to tracking down his previous op report or any prior EGD. No bleeding source was found on upper endoscopy, but evidence of a recent significant bleed was present. Recommend continuing IV PPI and monitoring Hb. Differential would include an AVM or dieulafoy's lesion. Marixa Vidales MD documented in this encounter Plan of Treatment Not on file documented as of this encounter Procedures Procedure Name Priority Date/Time Associated Diagnosis Comments ABORH RECHECK STATUS STAT 09/20/2017 9:08 AM EDT ABORH TYPE MANUAL STAT 09/20/2017 9:0 8 AM EDT SELECTED CELL SCREEN STAT 09/20/2017 9:08 AM EDT HEMOGRAM Routine 09/20/2017 6:00 AM EDT DIFFERENTIAL, AUTOMATED Routine 09/20/2017 6:00 AM EDT CBC (WITH DIFF) Routine 09/20/2017 6:00 AM EDT BASIC METABOLIC PANEL Routine 09/20/2017 6:00 AM EDT HEMOGRAM Routine 09/19/2017 5:34 AM EDT DIFFERENTIAL, AUTOMATED Routine 09/19/2017 5:34 AM EDT CBC (WITH DIFF) Routine 09/19/2017 5:34 AM EDT BASIC METABOLIC PANEL Routine 09/19/2017 5:34 AM EDT EGD, W CONTROL OF BLEEDING, ANY METHOD (WRVU 3.56) 09/18/2017 1:01 PM EDT GI bleed HEMOGLOBIN AND HEMATOCRIT, BLOOD Routine 09/18/2017 6:45 AM EDT TRANSFUSE RED BLOOD CELLS Routine 09/18/2017 3:32 AM EDT PREPARE RBC Routine 09/18/2017 3:00 AM EDT HEMOGRAM Routine 09/18/2017 1:48 AM EDT DIFFERENTIAL, AUTOMATED Routine 09/18/2017 1:48 AM EDT CBC (WITH DIFF) Routine 09/18/2017 1:48 AM EDT BASIC METABOLIC PANEL Routine 09/18/2017 1:48 AM EDT HEMOGLOBIN AND HEMATOCRIT, BLOOD Routine 09/17/2017 11:48 PM EDT POCT GLUCOSE Routine 09/17/2017 11:46 AM EDT POCT GLUCOSE Routine 09/17/2017 6:59 AM EDT HEMOGRAM Routine 09/17/2017 4:50 AM EDT DIFFERENTIAL, AUTOMATED Routine 09/17/2017 4:50 AM EDT CBC (WITH DIFF) Routine 09/17/2017 4:50 AM EDT HEMOGLOBIN A1C Routine 09/17/2017 4:50 AM EDT BASIC METABOLIC PANEL Routine 09/17/2017 4:50 AM EDT POCT GLUCOSE Routine 09/16/2017 8:43 PM EDT ABORH RECHECK STATUS Routine 09/16/2017 4:35 PM EDT POCT GLUCOSE Routine 09/16/2017 4:35 PM EDT ABORH TYPE MANUAL Routine 09/16/2017 4:3 5 PM EDT SELECTED CELL SCREEN Routine 09/16/2017 4:35 PM EDT POCT GLUCOSE Routine 09/16/2017 2:57 PM EDT POCT GLUCOSE Routine 09/16/2017 2:09 PM EDT POCT GLUCOSE Routine 09/16/2017 11:44 AM EDT POCT GLUCOSE Routine 09/16/2017 11:05 AM EDT POCT GLUCOSE Routine 09/16/2017 7:39 AM EDT HEMOGRAM Routine 09/16/2017 1:15 AM EDT DIFFERENTIAL, AUTOMATED Routine 09/16/2017 1:15 AM EDT CBC (WITH DIFF) Routine 09/16/2017 1:15 AM EDT BASIC METABOLIC PANEL Routine 09/16/2017 1:15 AM EDT POCT GLUCOSE Routine 09/15/2017 3:37 PM EDT POCT GLUCOSE Routine 09/15/2017 7:14 AM EDT HEMOGRAM Routine 09/15/2017 6:10 AM EDT SCAN, PERIPHERAL BLOOD Routine 09/15/2017 3:23 AM EDT HEMOGRAM Routine 09/15/2017 3:23 AM EDT DIFFERENTIAL, AUTOMATED Routine 09/15/2017 3:23 AM EDT CBC (WITH DIFF) Routine 09/15/2017 3:23 AM EDT BASIC METABOLIC PANEL Routine 09/15/2017 3:23 AM EDT POCT GLUCOSE Routine 09/15/2017 3:22 AM EDT POCT GLUCOSE Routine 09/15/2017 12:20 AM EDT HEMOGRAM Routine 09/14/2017 8:07 PM EDT POCT GLUCOSE Routine 09/14/2017 7:25 PM EDT POCT GLUCOSE Routine 09/14/2017 3:59 PM EDT US ABDOMEN LIMITED WITH VASCULAR Routine 09/14/2017 1:31 PM EDT POCT GLUCOSE Routine 09/14/2017 12:05 PM EDT HEMOGRAM Routine 09/14/2017 7:50 AM EDT POCT GLUCOSE Routine 09/14/2017 7:38 AM EDT POCT GLUCOSE Routine 09/14/2017 4:17 AM EDT HEMOGRAM Routine 09/14/2017 4:12 AM EDT HEMOGRAM Routine 09/14/2017 1:23 AM EDT DIFFERENTIAL, AUTOMATED Routine 09/14/2017 1:23 AM EDT CBC (WITH DIFF) Routine 09/14/2017 1:23 AM EDT PHOSPHORUS Routine 09/14/2017 1:23 AM EDT MAGNESIUM Routine 09/14/2017 1:23 AM EDT BASIC METABOLIC PANEL Routine 09/14/2017 1:23 AM EDT TRANSFUSE RED BLOOD CELLS Routine 09/14/2017 12:43 AM EDT PREPARE RBC Routine 09/14/2017 12:10 AM EDT LAB SCAN 09/14/2017 12:00 AM EDT POCT GLUCOSE Routine 09/13/2017 11:52 PM EDT HEMOGRAM Routine 09/13/2017 11:45 PM EDT HEMOGRAM Routine 09/13/2017 8:40 PM EDT POCT GLUCOSE Routine 09/13/2017 8:07 PM EDT ABORH RECHECK STATUS Routine 09/13/2017 1:19 PM EDT ABORH TYPE MANUAL Routine 09/13/2017 1:1 9 PM EDT SELECTED CELL SCREEN Routine 09/13/2017 1:19 PM EDT CMP W/FASTING GLUCOSE STAT 09/13/2017 1:10 PM EDT HEMOGRAM STAT 09/13/2017 1:10 PM EDT DIFFERENTIAL, AUTOMATED STAT 09/13/2017 1:10 PM EDT APTT STAT 09/13/2017 1:10 PM EDT PROTHROMBIN TIME STAT 09/13/2017 1:10 PM EDT FIBRINOGEN STAT 09/13/2017 1:10 PM EDT CBC (WITH DIFF) STAT 09/13/2017 1:10 PM EDT MAGNESIUM STAT 09/13/2017 1:10 PM EDT POCT GLUCOSE Routine 09/13/2017 1:08 PM EDT BARREL DRAINER SCAN 09/13/2017 12:00 AM EDT documented in this encounter Results * ABORH Recheck Status (09/20/2017 9:08 AM EDT) ABORH Type Recheck Completed [facility] Blood specimen (specimen) Venous Draw / Unknown 09/20/2017 9:08 AM EDT 09/20/2017 9:22 AM EDT Narrative Resulting Agency Comment Spec In Lab El Connors MD BLOOD BANK LAB ORDER CORDELIA Performing Organization Address City/[facility]/ZIP Co de Phone Number [facility] [place] [address] * Selected Cell Screen (09/20/2017 9:08 AM EDT) Pathologist [facility] Ab Screen Interp Previously identified Anti-K, M. No additional alloantibodies detected.* *Due to the presence of alloantibody(ies) additional time is required for preparation of Red Cell Products. See initial antibody identification report for additional information. [facility] Blood specimen (specimen) Venous Draw / Unknown 09/20/2017 9:08 AM EDT 09/20/2017 9:22 AM EDT Narrative Resulting Agency Comment Spec In Lab El Connors MD BLOOD BANK LAB ORDER CORDELIA Performing Organization Address City/[facility] Co de Phone Number [facility] [place] [address] * ABORh Type Manual (09/20/2017 9:08 AM EDT) [facility] Expires at [id number] on: 09/23/2017 [facility] ABORH Type O Pos [facility] Blood specimen (specimen) Venous Draw / Unknown 09/20/2017 9:08 AM EDT 09/20/2017 9:22 AM EDT Narrative Resulting Agency Comment Spec In Lab El Connors MD BLOOD BANK LAB ORDER CORDELIA Performing Organization Address City/[facility]/ZIP Co de Phone Number [facility] [place] [address] * (ABNORMAL) Differential, Automated (09/20/2017 6:00 AM EDT) Pathologist [facility] Neutrophil % 76.9 % [facility] Neutrophil Absolute 9.75(H) 1.70 - 6.10 x10(3)/mc L [facility] Lymph % 11.4 % [facility] Lymphocytes Abs 1.4 0.9 - 3.2 x10(3)/[facility] Monocyte % 8.2 % [facility] Monocyte Abs 1.0(H) 0.3 - 0.9 x10(3)/[facility] Eos % 2.0 % [facility] Eosinophils Abs 0.3 0.0 - 0.4 x10(3)/[facility] Basophil % 0.2 % [facility] Baso Absolute 0.0 0.0 - 0.1 x10(3)/[facility] Immature Gran % 1.30 % [facility] Comment: Immature granulocytes(IG's)percentage and absolute count will include metamyelocytes, myelocytes, and promyelocytes. Blood smears from CBCs yielding IG's will be scanned manually for concordance. If this scan disagrees with the automated IG or if promyelocytes are noted, a manual differential will be performed. Immature Gran Absolute 0.17(H) 0.00 - 0.04 x10(3)/[facility] Blood specimen (specimen) 09/20/2017 6:00 AM EDT 09/20/2017 6:19 AM EDT Narrative Resulting Agency Comment Spec In Lab Vera HASSAN HEMATOLOGY ORDERABLE S [facility] [place] [address] * (ABNORMAL) Hemogram (09/20/2017 6:00 AM EDT) White Blood Cell 12.7(H) 4.0 - 9.5 x10(3)/[facility] Red Blood Cell 2.42(L) 4.58 - 5.54 x10(6)/[facility] Hemoglobin 7.5(L) 13.7 - 16.5 gm/dL [facility] Hematocrit 23.3(L) 40.5 - 48.5 % [facility] Mean Cell Volume 96.3(H) 82.9 - 93.1 fL [facility] Mean Cell Hemoglobin 31.0 27.5 - 32.1 pg [facility] Mean Cell Hemoglobin Concentration 32.2 32.0 - 35.7 gm/dL [facility] Platelet 188 145 - 357 x10(3)/mc L [facility] RDW Standard Deviation 58.8(H) 36.0 - 45.0 fL [facility] RDW coefficient of variation 20.0(H) 11.4 - 13.8 % [facility] Mean Platelet Volume 11.0 7.6 - 12.9 [facility] NRBC% auto 0.3 % [facility] NRBC Absolute 0.040(H) 0.000 - 0.000 x10(3)/mc L [facility] Blood specimen (specimen) 09/20/2017 6:00 AM EDT 09/20/2017 6:19 AM EDT Narrative Resulting Agency Comment Spec In Lab Vera HASSAN HEMATOLOGY ORDERABLE S [facility] [place] [address] * (ABNORMAL) Basic Metabolic Panel (non-fasting) (09/20/2017 6:00 AM EDT) Glucose 82 65 - 199 mg/dL [facility] Comment:Diabetes: >=200 mg/d L plus symptoms Blood Urea Nitrogen 19 10 - 20 mg/dL [facility] Creatinine 0.72(L) 0.80 - 1.50 mg/dL [facility] Sodium 138 135 - 145 mmol/L [facility] Potassium 4.1 3.5 - 5.0 mmol/L [facility] Comment: Please note: ??Patients with WBC >100,000 may have falsely elevated Potassium levels. ??For accurate Potassium quantification in these patients send serum separator tube (gold top) for subsequent determinations. ??Contact the Clinical Chemistry Laboratory if there are any questions. Chloride 111(H) 98 - 107 mmol/L [facility] Carbon Dioxide 19(L) 22 - 31 mmol/L [facility] Anion Gap 8 5 - 15 mmol/L [facility] Calcium 8.1(L) 8.5 - 10.5 mg/dL [facility] Est Glomerular Filtration Rate >60 >=[address] [facility] Comment: The reported eGFR should be multiplied by 1.2 for patients. The MDRD is not an appropriate measure of renal function for patients with body mass extremes or in patients with acute kidney failure. http://[employer]/DHnkdep http://[employer]/DHMCnkf Blood specimen (specimen) 09/20/2017 6:00 AM EDT 09/20/2017 6:19 AM EDT Narrative Resulting Agency Comment Spec In Lab Shilpa Mercedes MD CHEMISTRY ORDERABLES [facility] [place] [address] * (ABNORMAL) Differential, Automated (09/19/2017 5:34 AM EDT) Neutrophil % 70.1 % [facility] Neutrophil Absolute 6.98(H) 1.70 - 6.10 x10(3)/mc L [facility] Lymph % 13.8 % [facility] Lymphocytes Abs 1.4 0.9 - 3.2 x10(3)/mc L [facility] Monocyte % 10.9 % [facility] Monocyte Abs 1.1(H) 0.3 - 0.9 x10(3)/mc L [facility] Eos % 2.3 % [facility] Eosinophils Abs 0.2 0.0 - 0.4 x10(3)/mc L [facility] Basophil % 0.3 % [facility] Baso Absolute 0.0 0.0 - 0.1 x10(3)/[facility]ATORY Immature Gran % 2.60 % [facility] Comment: Immature granulocytes(IG's)percentage and absolute count will include metamyelocytes, myelocytes, and promyelocytes. Blood smears from CBCs yielding IG's will be scanned manually for concordance. If this scan disagrees with the automated IG or if promyelocytes are noted, a manual differential will be performed. Immature Gran Absolute 0.26(H) 0.00 - 0.04 x10(3)/[facility] Blood specimen (specimen) 09/19/2017 5:34 AM EDT 09/19/2017 5:59 AM EDT Narrative Resulting Agency Comment Spec In Lab Vera HASSAN HEMATOLOGY ORDERABLE S [facility] [place] [address] * (ABNORMAL) Hemogram (09/19/2017 5:34 AM EDT) White Blood Cell 10.0(H) 4.0 - 9.5 x10(3)/[facility]ORATORY Red Blood Cell 2.41(L) 4.58 - 5.54 x10(6)/[facility]ORY Hemoglobin 8.0(L) 13.7 - 16.5 gm/dL [facility] Hematocrit 23.4(L) 40.5 - 48.5 % [facility] Mean Cell Volume 97.1(H) 82.9 - 93.1 fL [facility] Mean Cell Hemoglobin 33.2(H) 27.5 - 32.1 pg [facility] Mean Cell Hemoglobin Concentration 34.2 32.0 - 35.7 gm/dL [facility] Platelet 165 145 - 357 x10(3)/[facility]ORATORY RDW Standard Deviation 56.6(H) 36.0 - 45.0 fL [facility] RDW coefficient of variation 20.0(H) 11.4 - 13.8 % [facility] Mean Platelet Volume 11.7 7.6 - 12.9 fL [facility] NRBC% auto 0.3 % [facility] NRBC Absolute 0.030(H) 0.000 - 0.000 x10(3)/mc L [facility] Blood specimen (specimen) 09/19/2017 5:34 AM EDT 09/19/2017 5:59 AM EDT Narrative Resulting Agency Comment Spec In Lab Vera HASSAN HEMATOLOGY ORDERABLE S [facility] [place] [address] * (ABNORMAL) Basic Metabolic Panel (non-fasting) (09/19/2017 5:34 AM EDT) Glucose 101 65 - 199 mg/dL [facility] Comment:Diabetes: >=200 mg/d L plus symptoms Blood Urea Nitrogen 21(H) 10 - 20 mg/dL [facility] Creatinine 0.74(L) 0.80 - 1.50 mg/dL [facility] Sodium 143 135 - 145 mmol/L [facility] Potassium 4.2 3.5 - 5.0 mmol/L [facility] Comment: Please note: ??Patients with WBC >100,000 may have falsely elevated Potassium levels. ??For accurate Potassium quantification in these patients send serum separator tube (gold top) for subsequent determinations. ??Contact the Clinical Chemistry Laboratory if there are any questions. Chloride 113(H) 98 - 107 mmol/L [facility] Carbon Dioxide 19(L) 22 - 31 mmol/L [facility] Anion Gap 11 5 - 15 mmol/L [facility] Calcium 7.9(L) 8.5 - 10.5 mg/dL [facility] Est Glomerular Filtration Rate >[address] >=[address] [facility] Comment: The reported eGFR should be multiplied by 1.2 for patients. The MDRD is not an appropriate measure of renal function for patients with body mass extremes or in patients with acute kidney failure. http://[employer]/DHnkdep http://[employer]/DHMCnkf Blood specimen (specimen) 09/19/2017 5:34 AM EDT 09/19/2017 5:59 AM EDT Narrative Resulting Agency Comment Spec In Lab Shilpa Mercedes MD CHEMISTRY ORDERABLES Performing Organization Address City/[facility]/ZIP Co de Phone Number [facility] [place] [address] * (ABNORMAL) Hemoglobin and Hematocrit, blood (09/18/2017 6:45 AM EDT) Hemoglobin 8.3(L) 13.7 - 16.5 gm/dL [facility] Hematocrit 25.5(L) 40.5 - 48.5 % [facility] Blood specimen (specimen) 09/18/2017 6:45 AM EDT 09/18/2017 7:02 AM EDT Narrative Resulting Agency Comment Spec In Lab Bryan H Young TRANSIT MIX OPERATOR HEMATOLOGY ORDERABLE S Performing Organization Address City/[facility]/ZIP Co de Phone Number [facility] [place] [address] * Transfuse RBC (09/18/2017 5:27 AM EDT) Bryan H Young TRANSIT MIX OPERATOR NURSING TREATMENT OR DERABLES - BLOOD ADMIN * Transfuse RBC (09/18/2017 5:27 AM EDT) Bryan H Young TRANSIT MIX OPERATOR NURSING TREATMENT OR DERABLES - BLOOD ADMIN * Prepare RBC (09/18/2017 3:00 AM EDT) Dispensed? Yes [facility] Blood specimen (specimen) 09/18/2017 3:00 AM EDT 09/18/2017 3:00 AM EDT Narrative Resulting Agency Comment Spec In Lab Bryan H Tristan DRUMMOND BLOOD BANK PRODUCT O RDERABLES [facility] [place] [address] * (ABNORMAL) Differential, Automated (09/18/2017 1:48 AM EDT) Neutrophil % 68.3 % [facility] Neutrophil Absolute 7.21(H) 1.70 - 6.10 x10(3)/ L [facility] Lymph % 15.0 % [facility] Lymphocytes Abs 1.6 0.9 - 3.2 x10(3)/[facility]ATORY Monocyte % 12.5 % [facility] Monocyte Abs 1.3(H) 0.3 - 0.9 x10(3)/ L [facility] Eos % 1.6 % [facility] Eosinophils Abs 0.2 0.0 - 0.4 x10(3)/[facility]ATORY Basophil % 0.1 % [facility] Baso Absolute 0.0 0.0 - 0.1 x10(3)/ L [facility] Immature Gran % 2.50 % [facility] Comment: Immature granulocytes(IG's)percentage and absolute count will include metamyelocytes, myelocytes, and promyelocytes. Blood smears from CBCs yielding IG's will be scanned manually for concordance. If this scan disagrees with the automated IG or if promyelocytes are noted, a manual differential will be performed. Immature Gran Absolute 0.26(H) 0.00 - 0.04 x10(3)/ L [facility] Blood specimen (specimen) 09/18/2017 1:48 AM EDT 09/18/2017 2:18 AM EDT Narrative Resulting Agency Comment Spec In Lab Vera HASSAN HEMATOLOGY ORDERABLE S [facility] [place] [address] * (ABNORMAL) Hemogram (09/18/2017 1:48 AM EDT) White Blood Cell 10.6(H) 4.0 - 9.5 x10(3)/mc L [facility] Red Blood Cell 2.17(L) 4.58 - 5.54 x10(6)/mc L [facility] Hemoglobin 6.9(L) 13.7 - 16.5 gm/dL [facility] Hematocrit 21.1(L) 40.5 - 48.5 % [facility] Mean Cell Volume 97.2(H) 82.9 - 93.1 fL [facility] Mean Cell Hemoglobin 31.8 27.5 - 32.1 pg [facility] Mean Cell Hemoglobin Concentration 32.7 32.0 - 35.7 gm/dL [facility] Platelet 132(L) 145 - 357 x10(3)/mc L [facility] RDW Standard Deviation 57.9(H) 36.0 - 45.0 [facility] LABORATORY RDW coefficient of variation 21.2(H) 11.4 - 13.8 % [facility] Mean Platelet Volume 11.7 7.6 - 12.9 [facility]ORY NRBC% auto 0.5 % [facility] NRBC Absolute 0.050(H) 0.000 - 0.000 x10(3)/mc L [facility] Blood specimen (specimen) 09/18/2017 1:48 AM EDT 09/18/2017 2:18 AM EDT Narrative Resulting Agency Comment Spec In Lab Vera HASSAN HEMATOLOGY ORDERABLE S [facility] [place] [address] * (ABNORMAL) Basic Metabolic Panel (non-fasting) (09/18/2017 1:48 AM EDT) Glucose 108 65 - 199 mg/dL [facility] Comment:Diabetes: >=200 mg/d L plus symptoms Blood Urea Nitrogen 33(H) 10 - 20 mg/dL [facility] Creatinine 0.71(L) 0.80 - 1.50 mg/dL [facility] Sodium 140 135 - 145 mmol/L [facility] Potassium 4.8 3.5 - 5.0 mmol/L [facility] Comment: Please note: ??Patients with WBC >100,000 may have falsely elevated Potassium levels. ??For accurate Potassium quantification in these patients send serum separator tube (gold top) for subsequent determinations. ??Contact the Clinical Chemistry Laboratory if there are any questions. Chloride 110(H) 98 - 107 mmol/L [facility] Carbon Dioxide 20(L) 22 - 31 mmol/L [facility] Anion Gap 10 5 - 15 mmol/L [facility] Calcium 8.3(L) 8.5 - 10.5 mg/dL [facility] Est Glomerular Filtration Rate >[address] >=[address] [facility] Comment: The reported eGFR should be multiplied by 1.2 for patients. The MDRD is not an appropriate measure of renal function for patients with body mass extremes or in patients with acute kidney failure. http://[employer]/DHnkdep http://[employer]/DHMCnkf Blood specimen (specimen) 09/18/2017 1:48 AM EDT 09/18/2017 2:18 AM EDT Narrative Resulting Agency Comment Spec In Lab Shilpa Mercedes MD CHEMISTRY ORDERABLES [facility] [place] [address] * (ABNORMAL) Hemoglobin and Hematocrit, blood (09/17/2017 11:48 PM EDT) Hemoglobin 7.3(L) 13.7 - 16.5 gm/dL [facility] Hematocrit 23.6(L) 40.5 - 48.5 % [facility] Blood specimen (specimen) 09/17/2017 11:48 PM EDT 09/17/2017 11:59 PM EDT Narrative Resulting Agency Comment Spec In Lab Bryan Hudson APRN HEMATOLOGY ORDERABLE S [facility] [place] [address] * POCT Glucose (09/17/2017 11:46 AM EDT) Glucose, POC 108 65 - 199 mg/dL [facility] Comment: Supplemental ranges: <140 mg/dL before meals <180 mg/dL all other times of the day Blood specimen (specimen) 09/17/2017 11:46 AM EDT 09/17/2017 11:46 AM EDT El Connors MD POINT OF CARE TEST O RDERADELORES Performing Organization Address [facility]/ZIP Co de Phone Number [facility] [place] [address] * POCT Glucose (09/17/2017 6:59 AM EDT) Glucose, POC 140 65 - 199 mg/dL [facility] Comment: Supplemental ranges: <140 mg/dL before meals <180 mg/dL all other times of the day Blood specimen (specimen) 09/17/2017 6:59 AM EDT 09/17/2017 6:59 AM EDT Yao Klein MD POINT OF CARE TEST O VLADERADELORES Performing Organization Address City/[facility]/ZIP Co de Phone Number [facility] [place] [address] * Hemoglobin A1c (09/17/2017 4:50 AM EDT) Hemoglobin A1c 5.1 4.3 - 5.6 % [facility] Comment: Reference Range: 4.3 - 5.6% 5.7 - 6.4% - Increased Risk of Developing Diabetes Mellitus >=6.5% - Consistent with diagnosis of Diabetes Mellitus In the absence of hyperglycemia (i.e. plasma glucose > 200 mg/dL) or classic symptoms of hyperglycemia a repeat measurement of HbA1c should be performed on a separate sample to confirm the diagnosis. Diagnosis and Classification of Diabetes Mellitus, Diabetes Care 2013; 36: Suppl. 1, E97-92 Estimated Average Glucose 100 mg/dL [facility] Comment: eAG equivalents for HbA1c percentages: HbA1c(%) ?eAG(mg/dL) [...] into estimated average glucose values. ??Diabetes Care 2008:31(8):0133-0051. Blood specimen (specimen) Venous Draw / Unknown 09/17/2017 4:50 AM EDT 09/17/2017 1:19 PM EDT Narrative Resulting Agency Comment Spec In Lab El Connors MD CHEMISTRY ORDERABLES Performing Organization Address City/[facility]/ZIP Co de Phone Number [facility] [place] [address] * (ABNORMAL) Differential, Automated (09/17/2017 4:50 AM EDT) Neutrophil % 70.5 % [facility] Neutrophil Absolute 7.81(H) 1.70 - 6.10 x10(3)/mc L [facility] Lymph % 15.4 % [facility] Lymphocytes Abs 1.7 0.9 - 3.2 x10(3)/ L [facility] Monocyte % 9.7 % [facility] Monocyte Abs 1.1(H) 0.3 - 0.9 x10(3)/ L [facility] Eos % 1.8 % [facility] Eosinophils Abs 0.2 0.0 - 0.4 x10(3)/[facility] Basophil % 0.2 % [facility] Baso Absolute 0.0 0.0 - 0.1 x10(3)/ L [facility] Immature Gran % 2.40 % [facility] Comment: Immature granulocytes(IG's)percentage and absolute count will include metamyelocytes, myelocytes, and promyelocytes. Blood smears from CBCs yielding IG's will be scanned manually for concordance. If this scan disagrees with the automated IG or if promyelocytes are noted, a manual differential will be performed. Immature Gran Absolute 0.27(H) 0.00 - 0.04 x10(3)/ L [facility] Blood specimen (specimen) 09/17/2017 4:50 AM EDT 09/17/2017 4:56 AM EDT Narrative Resulting Agency Comment Spec In Lab Vera HASSAN HEMATOLOGY ORDERABLE S Performing Organization Address City/[facility]/ZIP Co de Phone Number [facility] [place] [address] * (ABNORMAL) Hemogram (09/17/2017 4:50 AM EDT) Pathologist [facility] White Blood Cell 11.1(H) 4.0 - 9.5 x10(3)/mc L [facility] Red Blood Cell 2.99(L) 4.58 - 5.54 x10(6)/mc L [facility] Hemoglobin 8.9(L) 13.7 - 16.5 gm/dL [facility] Hematocrit 28.4(L) 40.5 - 48.5 % [facility] Mean Cell Volume 95.0(H) 82.9 - 93.1 fL [facility] Mean Cell Hemoglobin 29.8 27.5 - 32.1 pg [facility] Mean Cell Hemoglobin Concentration 31.3(L) 32.0 - 35.7 gm/dL [facility] Platelet 138(L) 145 - 357 x10(3)/mc L [facility] RDW Standard Deviation 55.2(H) 36.0 - 45.0 [facility] RDW coefficient of variation 20.8(H) 11.4 - 13.8 % [facility] Mean Platelet Volume 11.4 7.6 - 12.9 [facility] NRBC% auto 0.9 % [facility] NRBC Absolute 0.100(H) 0.000 - 0.000 x10(3)/mc L [facility] Blood specimen (specimen) 09/17/2017 4:50 AM EDT 09/17/2017 4:56 AM EDT Narrative Resulting Agency Comment Spec In Lab Vera HASSAN HEMATOLOGY ORDERABLE S [facility] [place] [address] * (ABNORMAL) Basic Metabolic Panel (non-fasting) (09/17/2017 4:50 AM EDT) Pathologist [facility] Glucose 81 65 - 199 mg/dL [facility] Comment:Diabetes: >=200 mg/d L plus symptoms Blood Urea Nitrogen 29(H) 10 - 20 mg/dL [facility] Creatinine 0.78(L) 0.80 - 1.50 mg/dL [facility] Sodium 142 135 - 145 mmol/L [facility] Potassium 4.6 3.5 - 5.0 mmol/L [facility] Comment: Please note: ??Patients with WBC >100,000 may have falsely elevated Potassium levels. ??For accurate Potassium quantification in these patients send serum separator tube (gold top) for subsequent determinations. ??Contact the Clinical Chemistry Laboratory if there are any questions. Chloride 111(H) 98 - 107 mmol/L [facility] Carbon Dioxide 19(L) 22 - 31 mmol/L [facility] Anion Gap 12 5 - 15 mmol/L [facility] Calcium 8.0(L) 8.5 - 10.5 mg/dL [facility] Est Glomerular Filtration Rate >60 >=[address] [facility] Comment: The reported eGFR should be multiplied by 1.2 for patients. The MDRD is not an appropriate measure of renal function for patients with body mass extremes or in patients with acute kidney failure. http://[employer]/DHnkdep http://[employer]/DHMCnkf Blood specimen (specimen) 09/17/2017 4:50 AM EDT 09/17/2017 4:56 AM EDT Narrative Resulting Agency Comment Spec In Lab Shilpa Mercedes MD CHEMISTRY ORDERABLES [facility] [place] [address] * POCT Glucose (09/16/2017 8:43 PM EDT) Glucose, POC 109 65 - 199 mg/dL [facility] Comment: Supplemental ranges: <140 mg/dL before meals <180 mg/dL all other times of the day Blood specimen (specimen) 09/16/2017 8:43 PM EDT 09/16/2017 8:43 PM EDT Yao Klein MD POINT OF CARE TEST O RDERABLES [facility] [place] [address] * ABORH Recheck Status (09/16/2017 4:35 PM EDT) ABORH Type Recheck Completed [facility] Blood specimen (specimen) Venous Draw / Unknown 09/16/2017 4:35 PM EDT 09/16/2017 5:07 PM EDT Narrative Resulting Agency Comment Spec In Lab Karyn Yost [facility] BLOOD BANK LAB ORDER CORDELIA Performing Organization Address City/[facility]/ZIP Co de Phone Number [facility] [place] [address] * Selected Cell Screen (09/16/2017 4:35 PM EDT) [facility] Ab Screen Interp Previously identified Anti-K & Anti-M. No additional alloantibodies detected.* *Due to the presence of alloantibody(ies) additional time is required for preparation of Red Cell Products. See initial antibody identification report for additional information. [facility] Blood specimen (specimen) Venous Draw / Unknown 09/16/2017 4:35 PM EDT 09/16/2017 5:07 PM EDT Narrative Resulting Agency Comment Spec In Lab Karyn Yost [facility] BLOOD BANK LAB ORDER CORDELIA Performing Organization Address City/[facility]/ZIP Co de Phone Number [facility] [place] [address] * ABORh Type Manual (09/16/2017 4:35 PM EDT) Expires at 2359 on: 09/19/2017 [facility] ABORH Type O Pos [facility] Blood specimen (specimen) Venous Draw / Unknown 09/16/2017 4:35 PM EDT 09/16/2017 5:07 PM EDT Narrative Resulting Agency Comment Spec In Lab Karyn Yost APRN BLOOD BANK LAB ORDER CORDELIA [facility] [place] [address] * POCT Glucose (09/16/2017 4:35 PM EDT) Glucose, POC 92 65 - 199 mg/dL [facility] Comment: Supplemental ranges: <140 mg/dL before meals <180 mg/dL all other times of the day Blood specimen (specimen) 09/16/2017 4:35 PM EDT 09/16/2017 4:35 PM EDT Yao Klein MD POINT OF CARE TEST O POLINA Performing Organization Address City/[facility]/ZIP Co de Phone Number [facility] [place] [address] * POCT Glucose (09/16/2017 2:57 PM EDT) Glucose, POC 163 65 - 199 mg/dL [facility] Comment: Supplemental ranges: <140 mg/dL before meals <180 mg/dL all other times of the day Blood specimen (specimen) 09/16/2017 2:57 PM EDT 09/16/2017 2:57 PM EDT Yao Klein MD POINT OF CARE TEST O POLINA [facility] [place] [address] * POCT Glucose (09/16/2017 2:09 PM EDT) Glucose, POC 66 65 - 199 mg/dL [facility] Comment: Supplemental ranges: <140 mg/dL before meals <180 mg/dL all other times of the day Blood specimen (specimen) 09/16/2017 2:09 PM EDT 09/16/2017 2:09 PM EDT Yao Klein MD POINT OF CARE TEST O RDERADELORES [facility] [place] [address] * POCT Glucose (09/16/2017 11:44 AM EDT) Glucose, POC 171 65 - 199 mg/dL [facility] Comment: Supplemental ranges: <140 mg/dL before meals <180 mg/dL all other times of the day Blood specimen (specimen) 09/16/2017 11:44 AM EDT 09/16/2017 11:44 AM EDT Yao Klein MD POINT OF CARE TEST O VLADERADELORES Performing Organization Address City/[facility]/ZIP Co de Phone Number [facility] [place] [address] * (ABNORMAL) POCT Glucose (09/16/2017 11:05 AM EDT) Glucose, POC 64(L) 65 - 199 mg/dL [facility] Comment: Supplemental ranges: <140 mg/dL before meals <180 mg/dL all other times of the day Blood specimen (specimen) 09/16/2017 11:05 AM EDT 09/16/2017 11:05 AM EDT Yao Klein MD POINT OF CARE TEST O POLINA [facility] [place] [address] * POCT Glucose (09/16/2017 7:39 AM EDT) Glucose, POC 153 65 - 199 mg/dL [facility] Comment: Supplemental ranges: <140 mg/dL before meals <180 mg/dL all other times of the day Blood specimen (specimen) 09/16/2017 7:39 AM EDT 09/16/2017 7:39 AM EDT Yao Klein MD POINT OF CARE TEST O RDERABLES [facility] [place] [address] * (ABNORMAL) Differential, Automated (09/16/2017 1:15 AM EDT) Neutrophil % 69.8 % [facility] Neutrophil Absolute 7.66(H) 1.70 - 6.10 x10(3)/mc L [facility] Lymph % 14.1 % [facility] Lymphocytes Abs 1.6 0.9 - 3.2 x10(3)/mc L [facility] Monocyte % 12.8 % [facility] Monocyte Abs 1.4(H) 0.3 - 0.9 x10(3)/ L [facility] Eos % 1.4 % [facility] Eosinophils Abs 0.2 0.0 - 0.4 x10(3)/[facility] Basophil % 0.1 % [facility] Baso Absolute 0.0 0.0 - 0.1 x10(3)/mc L [facility] Immature Gran % 1.80 % [facility] Comment: Immature granulocytes(IG's)percentage and absolute count will include metamyelocytes, myelocytes, and promyelocytes. Blood smears from CBCs yielding IG's will be scanned manually for concordance. If this scan disagrees with the automated IG or if promyelocytes are noted, a manual differential will be performed. Immature Gran Absolute 0.20(H) 0.00 - 0.04 x10(3)/mc L [facility] Blood specimen (specimen) 09/16/2017 1:15 AM EDT 09/16/2017 1:25 AM EDT Narrative Resulting Agency Comment Spec In Lab Vera HASSAN HEMATOLOGY ORDERABLE S [facility] [place] [address] * (ABNORMAL) Hemogram (09/16/2017 1:15 AM EDT) White Blood Cell 11.0(H) 4.0 - 9.5 x10(3)/mc L [facility] Red Blood Cell 2.84(L) 4.58 - 5.54 x10(6)/mc L [facility] Hemoglobin 8.6(L) 13.7 - 16.5 gm/dL [facility] Hematocrit 26.7(L) 40.5 - 48.5 % [facility] Mean Cell Volume 94.0(H) 82.9 - 93.1 fL [facility] Mean Cell Hemoglobin 30.3 27.5 - 32.1 pg [facility] Mean Cell Hemoglobin Concentration 32.2 32.0 - 35.7 gm/dL [facility] Platelet 121(L) 145 - 357 x10(3)/mc L [facility] RDW Standard Deviation 53.5(H) 36.0 - 45.0 fL [facility] RDW coefficient of variation 19.6(H) 11.4 - 13.8 % [facility] Mean Platelet Volume 11.4 7.6 - 12.9 fL [facility] NRBC% auto 1.5 % [facility] NRBC Absolute 0.160(H) 0.000 - 0.000 x10(3)/mc L [facility] Blood specimen (specimen) 09/16/2017 1:15 AM EDT 09/16/2017 1:25 AM EDT Narrative Resulting Agency Comment Spec In Lab Vera HASSAN HEMATOLOGY ORDERABLE S [facility] [place] [address] * (ABNORMAL) Basic Metabolic Panel (non-fasting) (09/16/2017 1:15 AM EDT) Glucose 101 65 - 199 mg/dL [facility] Comment:Diabetes: >=200 mg/d L plus symptoms Blood Urea Nitrogen 44(H) 10 - 20 mg/dL [facility] Creatinine 0.90 0.80 - 1.50 mg/dL [facility] Sodium 142 135 - 145 mmol/L [facility] Potassium 4.2 3.5 - 5.0 mmol/L [facility] Comment: Please note: ??Patients with WBC >100,000 may have falsely elevated Potassium levels. ??For accurate Potassium quantification in these patients send serum separator tube (gold top) for subsequent determinations. ??Contact the Clinical Chemistry Laboratory if there are any questions. Chloride 111(H) 98 - 107 mmol/L [facility] Carbon Dioxide 23 22 - 31 mmol/L [facility] Anion Gap 8 5 - 15 mmol/L [facility] Calcium 8.2(L) 8.5 - 10.5 mg/dL [facility] Est Glomerular Filtration Rate >60 >=60 [facility] Comment: The reported eGFR should be multiplied by 1.2 for patients. The MDRD is not an appropriate measure of renal function for patients with body mass extremes or in patients with acute kidney failure. http://[employer]/DHnkdep http://[employer]/DHMCnkf Blood specimen (specimen) 09/16/2017 1:15 AM EDT 09/16/2017 1:25 AM EDT Narrative Resulting Agency Comment Spec In Lab Shilpa Mercedes MD CHEMISTRY ORDERABLES [facility] [place] [address] * POCT Glucose (09/15/2017 3:37 PM EDT) Glucose, POC 105 65 - 199 mg/dL [facility] Comment: Supplemental ranges: <140 mg/dL before meals <180 mg/dL all other times of the day Blood specimen (specimen) 09/15/2017 3:37 PM EDT 09/15/2017 3:37 PM EDT Yao Klein MD POINT OF CARE TEST O RDERADELORES Performing Organization Address City/[facility]/ZIP Co de Phone Number [facility] [place] [address] * POCT Glucose (09/15/2017 7:14 AM EDT) Glucose, POC 107 65 - 199 mg/dL [facility] Comment: Supplemental ranges: <140 mg/dL before meals <180 mg/dL all other times of the day Blood specimen (specimen) 09/15/2017 7:14 AM EDT 09/15/2017 7:14 AM EDT Shilpa Mercedes MD POINT OF CARE TEST O POLINA Performing Organization Address City/[facility]/ZIP Co de Phone Number [facility] [place] [address] * (ABNORMAL) Hemogram (09/15/2017 6:10 AM EDT) White Blood Cell 13.1(H) 4.0 - 9.5 x10(3)/mc L [facility] Red Blood Cell 2.77(L) 4.58 - 5.54 x10(6)/mc L [facility] Hemoglobin 8.4(L) 13.7 - 16.5 gm/dL [facility] Hematocrit 25.6(L) 40.5 - 48.5 % [facility] Mean Cell Volume 92.4 82.9 - 93.1 fL [facility] Mean Cell Hemoglobin 30.3 27.5 - 32.1 pg [facility] Mean Cell Hemoglobin Concentration 32.8 32.0 - 35.7 gm/dL [facility] Platelet 126(L) 145 - 357 x10(3)/mc L [facility] RDW Standard Deviation 51.4(H) 36.0 - 45.0 fL [facility] RDW coefficient of variation 17.7(H) 11.4 - 13.8 % [facility] Mean Platelet Volume 11.1 7.6 - 12.9 fL [facility] NRBC% auto 1.4 % [facility] NRBC Absolute 0.190(H) 0.000 - 0.000 x10(3)/mc L [facility] Blood specimen (specimen) 09/15/2017 6:10 AM EDT 09/15/2017 6:29 AM EDT Narrative Resulting Agency Comment Spec In Lab Jennifer Kim APRN HEMATOLOGY ORDERABLE S Performing Organization Address City/[facility]/ZIP Co de Phone Number [facility] [place] [address] * Scan, Peripheral Blood (09/15/2017 3:23 AM EDT) Plat estimate Decreased [facility] RBC Morphology Abnormal [facility] Macrocyte 1-5 /HPF [facility] Polychromasia Present >5/HPF [facility] Ovalocytes 1-5 /HPF [facility] Blood specimen (specimen) 09/15/2017 3:23 AM EDT 09/15/2017 3:30 AM EDT Narrative Resulting Agency Comment Spec In Lab Vera HASSAN HEMATOLOGY ORDERABLE S [facility] [place] [address] * (ABNORMAL) Differential, Automated (09/15/2017 3:23 AM EDT) Neutrophil % 76.2 % [facility] Neutrophil Absolute 9.84(H) 1.70 - 6.10 x10(3)/mc L [facility] Lymph % 9.8 % [facility] Lymphocytes Abs 1.3 0.9 - 3.2 x10(3)/[facility] Monocyte % 12.0 % [facility] Monocyte Abs 1.6(H) 0.3 - 0.9 x10(3)/[facility] Eos % 0.1 % [facility] Eosinophils Abs 0.0 0.0 - 0.4 x10(3)/[facility] Basophil % 0.1 % [facility] Baso Absolute 0.0 0.0 - 0.1 x10(3)/[facility] Immature Gran % 1.80 % [facility] Comment: Immature granulocytes(IG's)percentage and absolute count will include metamyelocytes, myelocytes, and promyelocytes. Blood smears from CBCs yielding IG's will be scanned manually for concordance. If this scan disagrees with the automated IG or if promyelocytes are noted, a manual differential will be performed. Immature Gran Absolute 0.23(H) 0.00 - 0.04 x10(3)/[facility] Blood specimen (specimen) 09/15/2017 3:23 AM EDT 09/15/2017 3:30 AM EDT Narrative Resulting Agency Comment Spec In Lab Vera HASSAN HEMATOLOGY ORDERABLE S [facility] [place] [address] * (ABNORMAL) Hemogram (09/15/2017 3:23 AM EDT) White Blood Cell 12.9(H) 4.0 - 9.5 x10(3)/[facility] Red Blood Cell 2.69(L) 4.58 - 5.54 x10(6)/[facility] Hemoglobin 8.2(L) 13.7 - 16.5 gm/dL [facility] Hematocrit 24.9(L) 40.5 - 48.5 % [facility] Mean Cell Volume 92.6 82.9 - 93.1 fL [facility] Mean Cell Hemoglobin 30.5 27.5 - 32.1 pg [facility] Mean Cell Hemoglobin Concentration 32.9 32.0 - 35.7 gm/dL [facility] Platelet 121(L) 145 - 357 x10(3)/mc L [facility] RDW Standard Deviation 52.1(H) 36.0 - 45.0 fL [facility] RDW coefficient of variation 18.2(H) 11.4 - 13.8 % [facility] Mean Platelet Volume 10.9 7.6 - 12.9 fL [facility] NRBC% auto 1.4 % [facility] NRBC Absolute 0.180(H) 0.000 - 0.000 x10(3)/mc L [facility] Blood specimen (specimen) 09/15/2017 3:23 AM EDT 09/15/2017 3:30 AM EDT Narrative Resulting Agency Comment Spec In Lab Vera HASSAN HEMATOLOGY ORDERABLE S [facility] [place] [address] * (ABNORMAL) Basic Metabolic Panel (non-fasting) (09/15/2017 3:23 AM EDT) Glucose 87 65 - 199 mg/dL [facility] Comment:Diabetes: >=200 mg/d L plus symptoms Blood Urea Nitrogen 58(H) 10 - 20 mg/dL [facility] Creatinine 1.05 0.80 - 1.50 mg/dL [facility] Sodium 146(H) 135 - 145 mmol/L [facility] Potassium 4.0 3.5 - 5.0 mmol/L [facility] Comment: Please note: ??Patients with WBC >100,000 may have falsely elevated Potassium levels. ??For accurate Potassium quantification in these patients send serum separator tube (gold top) for subsequent determinations. ??Contact the Clinical Chemistry Laboratory if there are any questions. Chloride 113(H) 98 - 107 mmol/L [facility] Carbon Dioxide 22 22 - 31 mmol/L [facility] Anion Gap 11 5 - 15 mmol/L [facility] Calcium 7.5(L) 8.5 - 10.5 mg/dL [facility] Est Glomerular Filtration Rate >[address] [facility] Comment: The reported eGFR should be multiplied by 1.2 for patients. The MDRD is not an appropriate measure of renal function for patients with body mass extremes or in patients with acute kidney failure. http://[employer]/DHnkdep http://[employer]/DHMCnkf Blood specimen (specimen) 09/15/2017 3:23 AM EDT 09/15/2017 3:30 AM EDT Narrative Resulting Agency Comment Spec In Lab Shilpa Mercedes MD CHEMISTRY ORDERABLES Performing Organization Address [facility]/ZIP Co de Phone Number [facility] [place] [address] * POCT Glucose (09/15/2017 3:22 AM EDT) Glucose, POC 112 65 - 199 mg/dL [facility] Comment: Supplemental ranges: <140 mg/dL before meals <180 mg/dL all other times of the day Blood specimen (specimen) 09/15/2017 3:22 AM EDT 09/15/2017 3:22 AM EDT Shilpa Mercedes MD POINT OF CARE TEST O RDERABLES Performing Organization Address City/[facility]/ZIP Co de Phone Number [facility] [place] [address] * POCT Glucose (09/15/2017 12:20 AM EDT) Pathologist [facility] Glucose, POC 196 65 - 199 mg/dL [facility] Comment: Supplemental ranges: <140 mg/dL before meals <180 mg/dL all other times of the day Blood specimen (specimen) 09/15/2017 12:20 AM EDT 09/15/2017 12:20 AM EDT Shilpa Mercedes MD POINT OF CARE TEST O RDERABLES [facility] [place] [address] * (ABNORMAL) Hemogram (09/14/2017 8:07 PM EDT) [facility] White Blood Cell 16.0(H) 4.0 - 9.5 x10(3)/mc L [facility] Red Blood Cell 2.98(L) 4.58 - 5.54 x10(6)/mc L [facility] Hemoglobin 9.0(L) 13.7 - 16.5 gm/dL [facility] Hematocrit 27.0(L) 40.5 - 48.5 % [facility] Mean Cell Volume 90.6 82.9 - 93.1 [facility] Mean Cell Hemoglobin 30.2 27.5 - 32.1 pg [facility] Mean Cell Hemoglobin Concentration 33.3 32.0 - 35.7 gm/dL [facility] Platelet 137(L) 145 - 357 x10(3)/mc L [facility] RDW Standard Deviation 49.3(H) 36.0 - 45.0 [facility] RDW coefficient of variation 17.5(H) 11.4 - 13.8 % [facility] Mean Platelet Volume 10.8 7.6 - 12.9 [facility] NRBC% auto 1.4 % [facility] NRBC Absolute 0.230(H) 0.000 - 0.000 x10(3)/mc L [facility] Blood specimen (specimen) 09/14/2017 8:07 PM EDT 09/14/2017 8:10 PM EDT Narrative Resulting Agency Comment Spec In Lab Shilpa Mercedes MD HEMATOLOGY ORDERABLE S Performing Organization Address City/[facility]/ZIP Co de Phone Number [facility] [place] [address] * POCT Glucose (09/14/2017 7:25 PM EDT) Glucose, POC 122 65 - 199 mg/dL [facility] Comment: Supplemental ranges: <140 mg/dL before meals <180 mg/dL all other times of the day Blood specimen (specimen) 09/14/2017 7:25 PM EDT 09/14/2017 7:25 PM EDT Shilpa Mercedes MD POINT OF CARE TEST O RDERADELORES Performing Organization Address [facility]/ZIP Co de Phone Number [facility] [place] [address] * POCT Glucose (09/14/2017 3:59 PM EDT) Glucose, POC 165 65 - 199 mg/dL [facility] Comment: Supplemental ranges: <140 mg/dL before meals <180 mg/dL all other times of the day Blood specimen (specimen) 09/14/2017 3:59 PM EDT 09/14/2017 3:59 PM EDT Zack Hood MD POINT OF CARE TEST O POLINA Performing Organization Address [facility]/ZIP Co de Phone Number [facility] [place] [address] * US Abdomen Vascular Limited (09/14/2017 1:31 PM EDT) Anatomical Region Laterality Modality Abdomen Ultrasound 09/14/2017 12:5 7 PM EDT Impressions 09/14/2017 1:53 PM EDT ??Homogeneous mild increase in overall hepatic parenchymalechotexture without focal lesion nor contour nodularity consistent with fattyinfiltration with focal sparing at the gallbladder fossa.The visualized hepatic veins, visualized portal veins, and hepatic artery arepatent with normal color and spectral wave forms.Trace pericholecystic ascites. Small right pleural effusion. ?Staci Russell MD Electronically Signed Final Report ?? 09/14/2017 01:52 pm Narrative 09/14/2017 1:53 PM EDT Abdominal Duplex ? (Signed Final 09/14/2017 01:52 pm) PATIENT INFO: ID #: ? [id number] ? : 50 (67 yrs) Name: ? NAIN KANG ?Visit Date:09/14/2017 12:57 pm PERFORMED BY: Performed By: ? Prasanna GRACE, ??Skylar Attending: ?Drew ERVIN, Staci Villavicencio Referred By: ?ZACK HOOD Location: ? [place] SERVICE(S) PROVIDED: ??UABDLIMVAS - Abdominal Limited Survey 2 Organ ? [id number], [id number] ??Quadrant with Vascular - [id number] INDICATIONS: ??F/U post EGD for GI bleed unknown source, assess ??portal vein HTN or PVT, other pathology COMPARISON: No prior studies for comparison. HEPATIC-PORTAL DUPLEX: ? PSV ? EDV ? RI ?Waveform ? (cm/s) ??(cm/s) Hepatic Artery: ?? 55.7 ?10.5 ? 0.8 Right Hepatic ? Patent Vein: Middle Hepatic ?Patent Vein: Left Hepatic ?Patent Vein: Main Portal ? 29.1 Vein: ?Direction of Flow Main Portal ?Hepatopetal Vein: ---- IVC: ---- Proximal portion, normal in caliber ------ LIVER: ------ Right Lobe Length: ?? 15.1 ?? cm Echogenicity/Echotexture: ?? Slightly increased ------ AORTA: ------ Measurements (cm): Proximal ?AP: ??1.5 RIGHT KIDNEY: Size (cm) ? L: 10.0 Cortical Thickness: ?Normal Cortical Echogenicity: ?? Mild echogenicity Hydronephrosis: ?No sonographic evidence GALLBLADDER: Cholelithiasis: ?No stones visualized Wall Thickness: ?2. mm Focal Tenderness: ?Negative sonographic Falcon's sign BILIARY TRACT: Intrahepatic Ducts: ?? Normal Extrahepatic Ducts: ?? Normal Common Duct Size: ? 7.0 ? mm --------- PANCREAS: --------- Head: ? Normal Tail: ? Poorly visualized due to overlying bowel Body: ? Normal FLUID COLLECTIONS: Pericholecystic fluid. ??Right pleural effusion. Procedure Note Staci Russell MD - 09/14/2017 Abdominal Duplex (Signed Final 09/14/2017 01:52 pm) PATIENT INFO: ID #: [id number] : 50 (67 yrs) Name: NAIN KANG Visit Date:09/14/2017 12:57 pm PERFORMED BY: Performed By: Skylar Mims RDMS Attending: Staci Russell MD Referred By: ZACK HOOD Location: [place] SERVICE(S) PROVIDED: UABDLIMVAS - Abdominal Limited Survey 2 Organ [id number], [id number] Quadrant with Vascular - [id number] INDICATIONS: F/U post EGD for GI bleed unknown source, assess portal vein HTN or PVT, other pathology COMPARISON: No prior studies for comparison. HEPATIC-PORTAL DUPLEX: PSV EDV RI Waveform (cm/s) (cm/s) Hepatic Artery: 55.7 10.5 0.8 Right Hepatic Patent Vein: Middle Hepatic Patent Vein: Left Hepatic Patent Vein: Main Portal 29.1 Vein: Direction of Flow Main Portal Hepatopetal Vein: ---- IVC: ---- Proximal portion, normal in caliber ------ LIVER: ------ Right Lobe Length: 15.1 cm Echogenicity/Echotexture: Slightly increased ------ AORTA: ------ Measurements (cm): Proximal AP: 1.5 RIGHT KIDNEY: Size (cm) L: 10.0 Cortical Thickness: Normal Cortical Echogenicity: Mild echogenicity Hydronephrosis: No sonographic evidence GALLBLADDER: Cholelithiasis: No stones visualized Wall Thickness: 2. mm Focal Tenderness: Negative sonographic Falcon's sign BILIARY TRACT: Intrahepatic Ducts: Normal Extrahepatic Ducts: Normal Common Duct Size: 7.0 mm --------- PANCREAS: --------- Head: Normal Tail: Poorly visualized due to overlying bowel Body: Normal FLUID COLLECTIONS: Pericholecystic fluid. Right pleural effusion. IMPRESSION Homogeneous mild increase in overall hepatic parenchymalechotexture without focal lesion nor contour nodularity consistent with fattyinfiltration with focal sparing at the gallbladder fossa.The visualized hepatic veins, visualized portal veins, and hepatic artery arepatent with normal color and spectral wave forms.Trace pericholecystic ascites. Small right pleural effusion. Staci Russell MD Electronically Signed Final Report 09/14/2017 01:52 pm Zack Hood MD IMG US GEN ORDERABLE S * POCT Glucose (09/14/2017 12:05 PM EDT) Pathologist [facility] Glucose, POC 133 65 - 199 mg/dL [facility] Comment: Supplemental ranges: <140 mg/dL before meals <180 mg/dL all other times of the day Blood specimen (specimen) 09/14/2017 12:05 PM EDT 09/14/2017 12:05 PM EDT Zack Hood MD POINT OF CARE TEST O RDERABLES [facility] [place] [address] * (ABNORMAL) Hemogram (09/14/2017 7:50 AM EDT) White Blood Cell 11.7(H) 4.0 - 9.5 x10(3)/mc L [facility] Red Blood Cell 3.40(L) 4.58 - 5.54 x10(6)/mc L [facility] Hemoglobin 10.2(L) 13.7 - 16.5 gm/dL [facility] Hematocrit 30.3(L) 40.5 - 48.5 % [facility] Mean Cell Volume 89.1 82.9 - 93.1 fL [facility] Mean Cell Hemoglobin 30.0 27.5 - 32.1 pg [facility] Mean Cell Hemoglobin Concentration 33.7 32.0 - 35.7 gm/dL [facility] Platelet 141(L) 145 - 357 x10(3)/mc L [facility] RDW Standard Deviation 48.1(H) 36.0 - 45.0 fL [facility] RDW coefficient of variation 16.6(H) 11.4 - 13.8 % [facility] Mean Platelet Volume 10.7 7.6 - 12.9 [facility] NRBC% auto 0.9 % [facility] NRBC Absolute 0.100(H) 0.000 - 0.000 x10(3)/mc L [facility] Blood specimen (specimen) 09/14/2017 7:50 AM EDT 09/14/2017 7:51 AM EDT Narrative Resulting Agency Comment Spec In Lab Zack Hood MD HEMATOLOGY ORDERABLE S Performing Organization Address [facility]/ZIP Co de Phone Number [facility] [place] [address] * POCT Glucose (09/14/2017 7:38 AM EDT) Glucose, POC 156 65 - 199 mg/dL [facility] Comment: Supplemental ranges: <140 mg/dL before meals <180 mg/dL all other times of the day Blood specimen (specimen) 09/14/2017 7:38 AM EDT 09/14/2017 7:38 AM EDT Zack Hood MD POINT OF CARE TEST O RDERABLES Performing Organization Address City/[facility]/ZIP Co de Phone Number [facility] [place] [address] * POCT Glucose (09/14/2017 4:17 AM EDT) Glucose, POC 180 65 - 199 mg/dL [facility] Comment: Supplemental ranges: <140 mg/dL before meals <180 mg/dL all other times of the day Blood specimen (specimen) 09/14/2017 4:17 AM EDT 09/14/2017 4:17 AM EDT Zack Hood MD POINT OF CARE TEST O RDERABLES [facility] [place] [address] * (ABNORMAL) Hemogram (09/14/2017 4:12 AM EDT) [facility] White Blood Cell 12.5(H) 4.0 - 9.5 x10(3)/mc L [facility] Red Blood Cell 3.41(L) 4.58 - 5.54 x10(6)/mc L [facility] Hemoglobin 10.2(L) 13.7 - 16.5 gm/dL [facility] Hematocrit 30.6(L) 40.5 - 48.5 % [facility] Mean Cell Volume 89.7 82.9 - 93.1 fL [facility] Mean Cell Hemoglobin 29.9 27.5 - 32.1 pg [facility] Mean Cell Hemoglobin Concentration 33.3 32.0 - 35.7 gm/dL [facility] Platelet 143(L) 145 - 357 x10(3)/mc L [facility] RDW Standard Deviation 48.8(H) 36.0 - 45.0 fL [facility] RDW coefficient of variation 17.7(H) 11.4 - 13.8 % [facility] Mean Platelet Volume 10.8 7.6 - 12.9 fL [facility] NRBC% auto 0.3 % [facility] NRBC Absolute 0.040(H) 0.000 - 0.000 x10(3)/mc L [facility] Blood specimen (specimen) 09/14/2017 4:12 AM EDT 09/14/2017 4:19 AM EDT Narrative Resulting Agency Comment Spec In Lab Zack Hood MD HEMATOLOGY ORDERABLE S Performing Organization Address [facility] Co de Phone Number [facility] [place] [address] * Transfuse RBC (09/14/2017 1:27 AM EDT) Zack Hood MD NURSING TREATMENT OR DERABLES - BLOOD ADMIN * Transfuse RBC (09/14/2017 1:27 AM EDT) Zack Hood MD NURSING TREATMENT OR DERABLES - BLOOD ADMIN * Phosphorus (09/14/2017 1:23 AM EDT) Phosphorus 4.2 2.5 - 4.5 mg/dL [facility] Blood specimen (specimen) Venous Draw / Unknown 09/14/2017 1:23 AM EDT 09/14/2017 1:41 AM EDT Narrative Resulting Agency Comment Spec In Lab Mila HASSAN CHEMISTRY ORDERABLES Performing Organization Address [facility] Co de Phone Number [facility] [place] [address] * (ABNORMAL) Magnesium (09/14/2017 1:23 AM EDT) Magnesium 1.15(H) 0.69 - 1.07 mmol/L [facility] Blood specimen (specimen) Venous Draw / Unknown 09/14/2017 1:23 AM EDT 09/14/2017 1:41 AM EDT Narrative Resulting Agency Comment Spec In Lab Mila HASSAN CHEMISTRY ORDERABLES Performing Organization Address City/[facility]/ZIP Co de Phone Number [facility] [place] [address] * (ABNORMAL) Differential, Automated (09/14/2017 1:23 AM EDT) Neutrophil % 93.5 % [facility] Neutrophil Absolute 11.69(H) 1.70 - 6.10 x10(3)/ L [facility] Lymph % 3.6 % [facility] Lymphocytes Abs 0.4(L) 0.9 - 3.2 x10(3)/ L [facility] Monocyte % 1.1 % [facility] Monocyte Abs 0.1(L) 0.3 - 0.9 x10(3)/[facility] Eos % 0.0 % [facility] Eosinophils Abs 0.0 0.0 - 0.4 x10(3)/[facility] Basophil % 0.2 % [facility] Baso Absolute 0.0 0.0 - 0.1 x10(3)/[facility] Immature Gran % 1.60 % [facility] Comment: Immature granulocytes(IG's)percentage and absolute count will include metamyelocytes, myelocytes, and promyelocytes. Blood smears from CBCs yielding IG's will be scanned manually for concordance. If this scan disagrees with the automated IG or if promyelocytes are noted, a manual differential will be performed. Immature Gran Absolute 0.20(H) 0.00 - 0.04 x10(3)/ L [facility] Blood specimen (specimen) 09/14/2017 1:23 AM EDT 09/14/2017 1:28 AM EDT Narrative Resulting Agency Comment Spec In Lab Vera HASSAN HEMATOLOGY ORDERABLE S [facility] [place] [address] * (ABNORMAL) Hemogram (09/14/2017 1:23 AM EDT) Pathologist [facility] White Blood Cell 12.5(H) 4.0 - 9.5 x10(3)/mc L [facility] Red Blood Cell 3.35(L) 4.58 - 5.54 x10(6)/mc L [facility] Hemoglobin 9.9(L) 13.7 - 16.5 gm/dL [facility] Hematocrit 30.8(L) 40.5 - 48.5 % [facility] Mean Cell Volume 91.9 82.9 - 93.1 fL [facility] Mean Cell Hemoglobin 29.6 27.5 - 32.1 pg [facility] Mean Cell Hemoglobin Concentration 32.1 32.0 - 35.7 gm/dL [facility] Platelet 118(L) 145 - 357 x10(3)/mc L [facility] RDW Standard Deviation 50.8(H) 36.0 - 45.0 [facility] RDW coefficient of variation 18.2(H) 11.4 - 13.8 % [facility] Mean Platelet Volume 11.2 7.6 - 12.9 [facility] NRBC% auto 0.5 % [facility] NRBC Absolute 0.060(H) 0.000 - 0.000 x10(3)/mc L [facility] Blood specimen (specimen) 09/14/2017 1:23 AM EDT 09/14/2017 1:28 AM EDT Narrative Resulting Agency Comment Spec In Lab Vera HASSAN HEMATOLOGY ORDERABLE S [facility] [place] [address] * (ABNORMAL) Basic Metabolic Panel (non-fasting) (09/14/2017 1:23 AM EDT) Glucose 153 65 - 199 mg/dL [facility] Comment:Diabetes: >=200 mg/d L plus symptoms Blood Urea Nitrogen 97(H) 10 - 20 mg/dL [facility] Creatinine 1.38 0.80 - 1.50 mg/dL [facility] Sodium 148(H) 135 - 145 mmol/L [facility] Potassium 4.4 3.5 - 5.0 mmol/L [facility] Comment: Please note: ??Patients with WBC >100,000 may have falsely elevated Potassium levels. ??For accurate Potassium quantification in these patients send serum separator tube (gold top) for subsequent determinations. ??Contact the Clinical Chemistry Laboratory if there are any questions. Chloride 111(H) 98 - 107 mmol/L [facility] Carbon Dioxide 22 22 - 31 mmol/L [facility] Anion Gap 15 5 - 15 mmol/L [facility] Calcium 7.7(L) 8.5 - 10.5 mg/dL [facility] Comment:result rechecked-MT Est Glomerular Filtration Rate 51(L) >=60 [facility] Comment: The reported eGFR should be multiplied by 1.2 for patients. The MDRD is not an appropriate measure of renal function for patients with body mass extremes or in patients with acute kidney failure. http://[employer]/DHnkdep http://[employer]/DHMCnkf Blood specimen (specimen) 09/14/2017 1:23 AM EDT 09/14/2017 1:28 AM EDT Narrative Resulting Agency Comment Spec In Lab Shilpa Mercedes MD CHEMISTRY ORDERABLES [facility] [place] [address] * Prepare RBC (09/14/2017 12:10 AM EDT) Dispensed? Yes [facility] Blood specimen (specimen) 09/14/2017 12:10 AM EDT 09/14/2017 12:06 AM EDT Narrative Resulting Agency Comment Spec In Lab Zack Hood MD BLOOD BANK PRODUCT O RDERABLES Performing Organization Address [facility]/ZIP Co de Phone Number [facility] [place] [address] * SCAN DOC: LAB (09/14/2017 12:00 AM EDT) Narrative 09/14/2017 12:00 AM EDT Ordered by an unspecified provider. Scanning Provider MEDIA MGR SCAN EXT O RDR/RSLT * POCT Glucose (09/13/2017 11:52 PM EDT) [facility] Glucose, POC 150 65 - 199 mg/dL [facility] Comment: Supplemental ranges: <140 mg/dL before meals <180 mg/dL all other times of the day Blood specimen (specimen) 09/13/2017 11:52 PM EDT 09/13/2017 11:52 PM EDT Zack Hood MD POINT OF CARE TEST O VLADERADELORES Performing Organization Address [facility] Co de Phone Number [facility] [place] [address] * (ABNORMAL) Hemogram (09/13/2017 11:45 PM EDT) [facility] White Blood Cell 11.2(H) 4.0 - 9.5 x10(3)/mc L [facility] Red Blood Cell 2.64(L) 4.58 - 5.54 x10(6)/mc L [facility] Hemoglobin 7.7(L) 13.7 - 16.5 gm/dL [facility] Hematocrit 23.5(L) 40.5 - 48.5 % [facility] Mean Cell Volume 89.0 82.9 - 93.1 fL [facility] Mean Cell Hemoglobin 29.2 27.5 - 32.1 pg [facility] Mean Cell Hemoglobin Concentration 32.8 32.0 - 35.7 gm/dL [facility] Platelet 133(L) 145 - 357 x10(3)/mc L [facility] RDW Standard Deviation 49.1(H) 36.0 - 45.0 [facility] LABORATORY RDW coefficient of variation 16.7(H) 11.4 - 13.8 % [facility] Mean Platelet Volume 11.4 7.6 - 12.9 fL [facility] NRBC% auto 0.3 % [facility] NRBC Absolute 0.030(H) 0.000 - 0.000 x10(3)/mc L [facility] Blood specimen (specimen) 09/13/2017 11:45 PM EDT 09/13/2017 11:48 PM EDT Narrative Resulting Agency Comment Spec In Lab Zack Hood MD HEMATOLOGY ORDERABLE S [facility] [place] [address] * (ABNORMAL) Hemogram (09/13/2017 8:40 PM EDT) White Blood Cell 13.7(H) 4.0 - 9.5 x10(3)/mc L [facility] Red Blood Cell 2.94(L) 4.58 - 5.54 x10(6)/mc L [facility] Hemoglobin 8.9(L) 13.7 - 16.5 gm/dL [facility] Hematocrit 26.8(L) 40.5 - 48.5 % [facility] Mean Cell Volume 91.2 82.9 - 93.1 [facility] LAB[facility]ATORY Mean Cell Hemoglobin 30.3 27.5 - 32.1 pg [facility] Mean Cell Hemoglobin Concentration 33.2 32.0 - 35.7 gm/dL [facility] Platelet 155 145 - 357 x10(3)/mc L [facility] RDW Standard Deviation 49.5(H) 36.0 - 45.0 [facility] LABORATORY RDW coefficient of variation 18.6(H) 11.4 - 13.8 % [facility] Mean Platelet Volume 11.6 7.6 - 12.9 fL [facility] NRBC% auto 0.2 % [facility] NRBC Absolute 0.030(H) 0.000 - 0.000 x10(3)/mc L [facility] Blood specimen (specimen) 09/13/2017 8:40 PM EDT 09/13/2017 8:45 PM EDT Narrative Resulting Agency Comment Spec In Lab Zack Hood MD HEMATOLOGY ORDERABLE S Performing Organization Address City/[facility]/ZIP Co de Phone Number [facility] [place] [address] * POCT Glucose (09/13/2017 8:07 PM EDT) [facility] Glucose, POC 135 65 - 199 mg/dL [facility] Comment: Supplemental ranges: <140 mg/dL before meals <180 mg/dL all other times of the day Blood specimen (specimen) 09/13/2017 8:07 PM EDT 09/13/2017 8:07 PM EDT Zack Hood MD POINT OF CARE TEST O RDERABLES Performing Organization Address [facility]/ZIP Co de Phone Number [facility] [place] [address] * ABORH Recheck Status (09/13/2017 1:19 PM EDT) Pathologist [facility] ABORH Type Recheck Completed [facility] Blood specimen (specimen) Venous Draw / Unknown 09/13/2017 1:19 PM EDT 09/13/2017 1:19 PM EDT Narrative Resulting Agency Comment Spec In Lab Zack Hood MD BLOOD BANK LAB ORDER CORDELIA Performing Organization Address City/[facility]/ZIP Co de Phone Number [facility] [place] [address] * Selected Cell Screen (09/13/2017 1:19 PM EDT) [facility] Ab Screen Interp Previously identified Anti-K, Anti-M. No additional alloantibodies detected.* *Due to the presence of alloantibody(ies) additional time is required for preparation of Red Cell Products. See initial antibody identification report for additional information. [facility] Blood specimen (specimen) Venous Draw / Unknown 09/13/2017 1:19 PM EDT 09/13/2017 1:19 PM EDT Narrative Resulting Agency Comment Spec In Lab Zack Hood MD BLOOD BANK LAB ORDER CORDELIA [facility] [place] [address] * ABORh Type Manual (09/13/2017 1:19 PM EDT) [facility] Expires at 2359 on: 09/16/2017 [facility] ABORH Type O Pos [facility] Blood specimen (specimen) Venous Draw / Unknown 09/13/2017 1:19 PM EDT 09/13/2017 1:19 PM EDT Narrative Resulting Agency Comment Spec In Lab Zack Hood MD BLOOD BANK LAB ORDER CORDELIA [facility] [place] [address] * Fibrinogen (09/13/2017 1:10 PM EDT) [facility] Fibrinogen 282 200 - 393 mg/dL [facility] Comment: A fibrinogen level >100 mg/dL is adequate for hemostasis in most patients without underlying bleeding disorders. Blood specimen (specimen) Venous Draw / Unknown 09/13/2017 1:10 PM EDT 09/13/2017 1:18 PM EDT Narrative Resulting Agency Comment Spec In Lab Vera HASSAN HEMATOLOGY ORDERABLE S [facility] [place] [address] * (ABNORMAL) Differential, Automated (09/13/2017 1:10 PM EDT) Pathologist [facility] Neutrophil % 82.0 % [facility] Neutrophil Absolute 11.59(H) 1.70 - 6.10 x10(3)/ L [facility] Lymph % 6.9 % [facility] Lymphocytes Abs 1.0 0.9 - 3.2 x10(3)/[facility] LABORATORY Monocyte % 10.5 % [facility] Monocyte Abs 1.5(H) 0.3 - 0.9 x10(3)/[facility] LABORATORY Eos % 0.0 % [facility] Eosinophils Abs 0.0 0.0 - 0.4 x10(3)/[facility] LABORATORY Basophil % 0.1 % [facility] Baso Absolute 0.0 0.0 - 0.1 x10(3)/[facility] LABORATORY Immature Gran % 0.50 % [facility] Comment: Immature granulocytes(IG's)percentage and absolute count will include metamyelocytes, myelocytes, and promyelocytes. Blood smears from CBCs yielding IG's will be scanned manually for concordance. If this scan disagrees with the automated IG or if promyelocytes are noted, a manual differential will be performed. Immature Gran Absolute 0.07(H) 0.00 - 0.04 x10(3)/[facility] LABORATORY Blood specimen (specimen) 09/13/2017 1:10 PM EDT 09/13/2017 1:18 PM EDT Narrative Resulting Agency Comment Spec In Lab Karyn Yost APRN HEMATOLOGY ORDERABLE S [facility] [place] [address] * (ABNORMAL) Hemogram (09/13/2017 1:10 PM EDT) Pathologist [facility] White Blood Cell 14.1(H) 4.0 - 9.5 x10(3)/mc L [facility] Red Blood Cell 3.22(L) 4.58 - 5.54 x10(6)/mc L [facility] Hemoglobin 9.5(L) 13.7 - 16.5 gm/dL [facility] Hematocrit 28.7(L) 40.5 - 48.5 % [facility] Mean Cell Volume 89.1 82.9 - 93.1 fL [facility] Mean Cell Hemoglobin 29.5 27.5 - 32.1 pg [facility] Mean Cell Hemoglobin Concentration 33.1 32.0 - 35.7 gm/dL [facility] Platelet 160 145 - 357 x10(3)/mc L [facility] RDW Standard Deviation 49.0(H) 36.0 - 45.0 [facility] LABORATORY RDW coefficient of variation 16.2(H) 11.4 - 13.8 % [facility] Mean Platelet Volume 10.7 7.6 - 12.9 [facility] LABORATORY NRBC% auto 0.2 % [facility] NRBC Absolute 0.030(H) 0.000 - 0.000 x10(3)/ L [facility] Blood specimen (specimen) 09/13/2017 1:10 PM EDT 09/13/2017 1:18 PM EDT Narrative Resulting Agency Comment Spec In Lab Karyn Yost [employer]PERATOR HEMATOLOGY ORDERABLE S [facility] [place] [address] * (ABNORMAL) Magnesium (09/13/2017 1:10 PM EDT) Magnesium 1.10(H) 0.69 - 1.07 mmol/L [facility] Blood specimen (specimen) 09/13/2017 1:10 PM EDT 09/13/2017 1:18 PM EDT Narrative Resulting Agency Comment Spec In Lab Karyn E Priyank DRUMMOND CHEMISTRY ORDERABLES [facility] [place] [address] * (ABNORMAL) CMP w/fasting Glucose (09/13/2017 1:10 PM EDT) Glucose Fasting 142(H) 65 - 99 mg/dL [facility] Comment: ?Fasting* Glucose Interpretive Criteria [...] of Diabetes Mellitus, Position Statement from the [place] [employer]. ??Diabetes Care, Volume 33, Supplement 1, Jun 2009 Blood Urea Nitrogen 121(H) 10 - 20 mg/dL [facility] Creatinine 1.77(H) 0.80 - 1.50 mg/dL [facility] Sodium 144 135 - 145 mmol/L [facility] Potassium 4.4 3.5 - 5.0 mmol/L [facility] Comment: Please note: ??Patients with WBC >100,000 may have falsely elevated Potassium levels. ??For accurate Potassium quantification in these patients send serum separator tube (gold top) for subsequent determinations. ??Contact the Clinical Chemistry Laboratory if there are any questions. Chloride 103 98 - 107 mmol/L [facility] Carbon Dioxide 23 22 - 31 mmol/L [facility] Anion Gap 18(H) 5 - 15 mmol/L [facility] Calcium 9.0 8.5 - 10.5 mg/dL [facility] Protein, Total 6.2 6.1 - 8.0 gm/dL [facility] Albumin 3.1(L) 3.2 - 5.2 gm/dL [facility] Aspartate Aminotransferase 12 0 - 39 unit/L [facility] Alanine Aminotransferase 8 0 - 55 unit/L [facility] Alkaline Phosphatase 101 40 - 120 unit/L [facility] Bilirubin, Total 0.9 0.2 - 1.3 mg/dL [facility] Est Glomerular Filtration Rate 39(L) >=60 [facility] Comment: The reported eGFR should be multiplied by 1.2 for patients. The MDRD is not an appropriate measure of renal function for patients with body mass extremes or in patients with acute kidney failure. http://[employer]/DHnkdep http://[employer]/DHMCnkf Blood specimen (specimen) 09/13/2017 1:10 PM EDT 09/13/2017 1:18 PM EDT Narrative Resulting Agency Comment Spec In Lab Karyn Yost APRN CHEMISTRY ORDERABLES Performing Organization Address [facility] Co de Phone Number [facility] [place] [address] * APTT (09/13/2017 1:10 PM EDT) Partial Thromboplastin Time 32 25 - 37 sec [facility] Comment: The PTT is NOT appropriate for heparin monitoring. Use the Anti-Xa level for heparin monitoring (HEP UFH) or LMWH monitoring (HEP LMW). A PTT less than 37 seconds generally indicates adequate hemostasis. Blood specimen (specimen) 09/13/2017 1:10 PM EDT 09/13/2017 1:18 PM EDT Narrative Resulting Agency Comment Spec In Lab Karyn Yost APRN HEMATOLOGY ORDERABLE S Performing Organization Address City/[facility] Co de Phone Number [facility] [place] [address] * (ABNORMAL) Prothrombin Time (09/13/2017 1:10 PM EDT) Prothrombin Time 22.8(H) 9.4 - 12.5 sec [facility] International Normalization Ratio 2.0 [facility] Comment: An INR <2.0 indicates [...] be appropriate depending on clinical circumstances. Blood specimen (specimen) 09/13/2017 1:10 PM EDT 09/13/2017 1:18 PM EDT Narrative Resulting Agency Comment Spec In Lab Karyn Yost APRN HEMATOLOGY ORDERABLE S Performing Organization Address [facility]/ZIP Co de Phone Number [facility] [place] [address] * POCT Glucose (09/13/2017 1:08 PM EDT) Glucose, POC 155 65 - 199 mg/dL [facility] Comment: Supplemental ranges: <140 mg/dL before meals <180 mg/dL all other times of the day Blood specimen (specimen) 09/13/2017 1:08 PM EDT 09/13/2017 1:08 PM EDT Zack Hood MD POINT OF CARE TEST O RDERABLES [facility] [place] [address] * 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 Scanning Provider MEDIA MGR SCAN EXT O RDR/RSLT documented in this encounter Visit Diagnoses Not on filedocumented in this encounter Admitting Diagnoses Diagnosis Acute upper GI bleed Hemorrhage of gastrointestinal tract, unspecified documented in this encounter Administered Medications Inactive Administered Medications - up to 3 most recent administrations Medication Order MAR Action Action Date Dose Rate Site acetaminophen (TYLENOL) tablet 1,000 mg 1,000 mg, Oral, EVERY 6 HOURS SCHEDULED, First dose (after last modification) on Tue09/17/17 at 1800, Until Discontinued, Maximum dose of acetaminophen is 4000 mg from all sources in 24 hours., Routine Given 09/20/2017 12:42 PM EDT 1,000 mg Given 09/20/2017 6:22 AM EDT 1,000 mg Given 09/19/2017 11:28 PM EDT 1,000 mg aspirin EC tablet 81 mg 81 mg, Oral, DAILY, First dose on Tue09/19/17 at 1130, Until Discontinued, Routine Given 09/20/2017 8:20 AM EDT 81 mg Given 09/19/2017 12:40 PM EDT 81 mg atorvastatin (LIPITOR) tablet 10 mg 10 mg, Oral, EVERY EVENING, First dose on Tue09/13/17 at 1800, Until Discontinued, Routine Given 09/19/2017 4:35 PM EDT 10 mg Given 09/18/2017 4:15 PM EDT 10 mg Given 09/17/2017 4:22 PM EDT 10 mg bisacodyl (DULCOLAX) suppository 10 mg 10 mg, Rectal, DAILY PRN, Starting on Tue09/17/17 at 0841, Until Tue09/20/17 at 1814, Constipation, Routine buPROPion (WELLBUTRIN SR or ZYBAN) SR tablet 150 mg 150 mg, Oral, 2 TIMES DAILY, First dose on Tue09/14/17 at 0900, Until Discontinued, DO NOT CRUSH OR OPEN, Routine Given 09/20/2017 8:19 AM EDT 150 mg Given 09/19/2017 9:17 PM EDT 150 mg Given 09/19/2017 8:55 AM EDT 150 mg calcium carbonate (TUMS) chewable tablet 500 mg 500 mg, Oral, 3 TIMES DAILY PRN, Starting on Tue09/17/17 at 0143, Until Tue09/20/17 at 1814, Heartburn, STAT Given 09/19/2017 5:36 PM EDT 500 mg Given 09/17/2017 3:46 PM EDT 500 mg carboxymethylcellulose (REFRESH PLUS) 0.5 % ophthalmic drops 1-2 drop 1-2 drop, Both Eyes, 3 TIMES DAILY PRN, Starting on Tue09/18/17 at 2109, Until Tue09/20/17 at 1814, Dry Eyes, Routine Given 09/19/2017 11:35 PM EDT 2 drops Given 09/19/2017 10:10 AM EDT 1 drop Given 09/19/2017 3:26 AM EDT 2 drops folic acid (FOLVITE) tablet 1,000 mcg 1,000 mcg (1 mg), Oral, DAILY, First dose on Tue09/14/17 at 0900, Until Discontinued, Routine Given 09/20/2017 8:20 AM EDT 1,000 mcg Given 09/19/2017 8:54 AM EDT 1,000 mcg Given 09/18/2017 8:38 AM EDT 1,000 mcg furosemide (LASIX) tablet 40 mg 40 mg, Oral, DAILY AT NOON, First dose on Tue09/20/17 at 1200, Until Discontinued, Routine Given 09/20/2017 12:42 PM EDT 40 mg furosemide (LASIX) tablet 80 mg 80 mg, Oral, EVERY MORNING, First dose on Tue09/20/17 at 0830, Until Discontinued, Routine Given 09/20/2017 8:43 AM EDT 80 mg gabapentin (NEURONTIN) capsule 300 mg 300 mg, Oral, 3 TIMES DAILY, First dose on Tue09/14/17 at 0900, Until Discontinued, Routine Given 09/20/2017 8:20 AM EDT 300 mg Given 09/19/2017 9:17 PM EDT 300 mg Given 09/19/2017 4:35 PM EDT 300 mg ipratropium-albuterol (DUONEB) 0.5 mg-3 mg(2.5 mg base)/3 mL nebulizer solution 3 mL 3 mL, Nebulization, EVERY 4 HOURS PRN, Starting on Tue09/13/17 at 1736, Until Tue09/20/17 at 1814, Wheezing, Routine lactulose (CHRONULAC) 20 gram/30 mL oral solution 20 g 20 g, Oral, 3 TIMES DAILY PRN, Starting on 09/17/17 at 0841, Until Tue09/20/17 at 1814, Constipation, Please use before bisacodyl suppository., Routine Given 09/17/2017 9:26 AM EDT 20 g methyl salicylate-menthol (BENGAY) 15-10 % cream Topical (Top), 2 TIMES DAILY, First dose on Tue09/17/17 at 1400, Until Discontinued, To the lower back Given 09/17/2017 3:45 PM EDT metoprolol (LOPRESSOR) tablet 12.5 mg 12.5 mg, Oral, EVERY 12 HOURS SCHEDULED (2 times per day), First dose (after last modification) on Tue09/18/17 at 0915, Until Discontinued, Hold for SBP < 90 or HR < 60, Routine Given 09/20/2017 8:20 AM EDT 12.5 mg Given 09/19/2017 9:17 PM EDT 12.5 mg Given 09/19/2017 8:54 AM EDT 12.5 mg multivitamin with folic acid (THERA TAB) 400 mcg tablet 1 tablet 1 tablet, Oral, DAILY, First dose on Tue09/17/17 at 0900, Until Discontinued, Routine Given 09/20/2017 8:20 AM EDT 1 tablet Given 09/19/2017 8:55 AM EDT 1 tablet Given 09/18/2017 8:38 AM EDT 1 tablet nicotine (NICODERM CQ) 21 mg/24 hr patch 21 mg 21 mg, Transdermal, DAILY, First dose on Tue09/14/17 at 0900, Until Discontinued, Routine Patch Applied 09/20/2017 8:20 AM EDT 21 mg 09- Arm Upper (Left) Patch Applied 09/19/2017 9:06 AM EDT 21 mg 10- Arm Upper (Right) Patch Applied 09/18/2017 8:39 AM EDT 21 mg 09- Arm Upper (Left) nicotine (NICODERM CQ) 21 mg/24 hr patch Patch Removal Transdermal, DAILY, First dose on Tue09/15/17 at 0900, Until Discontinued, Remove nicotine 21 mg/24 hr patch nicotine (NICODERM CQ) 21 mg/24 hr patch Patch Verification Transdermal, 2 TIMES DAILY, First dose on Tue09/14/17 at 1945, Until Discontinued, Verify nicotine 21 mg/24 hr patch oxyCODONE (ROXICODONE) immediate release tablet 5 mg 5 mg, Oral, EVERY 4 HOURS PRN, Starting on Tue09/15/17 at 1529, Until Tue09/20/17 at 1814, Pain, Routine Given 09/20/2017 6:22 AM EDT 5 mg Given 09/19/2017 9:25 PM EDT 5 mg Given 09/18/2017 9:08 AM EDT 5 mg pantoprazole (PROTONIX) injection 40 mg 40 mg, Intravenous, 2 TIMES DAILY, First dose on Tue09/18/17 at 0900, Until Discontinued Given 09/20/2017 8:19 AM EDT 4 0 mg Given 09/19/2017 9:16 PM EDT 40 mg Given 09/19/2017 8:54 AM EDT 40 mg senna-docusate (PERICOLACE) 8.6-50 mg per tablet 1 tablet 1 tablet, Oral, 2 TIMES DAILY, First dose on Tue09/15/17 at 2100, Until Discontinued, Routine Given 09/20/2017 8:19 AM EDT 1 tablet Given 09/19/2017 9:17 PM EDT 1 tablet Given 09/19/2017 9:06 AM EDT 1 tablet sucralfate (CARAFATE) 100 mg/mL oral suspension 1 g 1 g, Oral, 4 TIMES DAILY BEFORE MEALS & NIGHTLY, First dose on Tue09/19/17 at 2100, Until Discontinued, Routine Given 09/20/2017 12:43 PM EDT 1 g Given 09/20/2017 7:23 AM EDT 1 g Given 09/19/2017 9:16 PM EDT 1 g thiamine (B-1) 250 mg in sodium chloride 0.9% 52.5 mL 250 mg, Intravenous, DAILY, 5 doses, First dose on Tue09/17/17 at 0900, Last dose on Tue09/21/17 at 0900, Administer over 30 Minutes New Bag 09/20/2017 8:18 AM EDT 250 mg 105 mL/hr New Bag 09/19/2017 8:59 AM EDT 250 mg 105 mL/hr New Bag 09/18/2017 10:54 AM EDT 250 mg 105 mL/hr thiamine (B-1) injection 100 mg 100 mg, Intravenous, DAILY, First dose on Tue09/22/17 at 0900, Until Discontinued tiotropium (SPIRIVA) inhalation capsule with device 18 mcg 18 mcg, Inhalation, DAILY, First dose on Tue09/13/17 at 1900, Until Discontinued Given 09/20/2017 8:19 AM EDT 18 mcg Given 09/19/2017 7:52 AM EDT 18 mcg Given 09/18/2017 8:46 AM EDT 18 mcg documented in this encounter Active and Recently Administered Medications Times are shown in EDT. Scheduled Medication Order 09/18/2017 09/19/2017 09/20/2017 acetaminophen (TYLENOL) tablet 1,000 mg 1,000 mg, Oral, EVERY 6 HOURS SCHEDULED, First dose (after last modification) on Tue09/17/17 at 1800, Until Discontinued, Maximum dose of acetaminophen is 4000 mg from all sources in 24 hours., Routine 0000 (Not Given - Provider: Hazel Eaton RN - Reason: Patient/family refused)0618 (Given - Provider: Hazel Eaton RN)1129 (Given - Provider: Jake Carlson RN)1301 (AUG Hold - Provider: Admin Adt - Reason: Transfer to a Procedural area)1449 (AUG Unhold - Provider: Admin Adt)1900 (Given - Provider: Jake Carlson RN) 0000 (Not Given - Provider: Michelle Coker RN - Reason: Patient/family refused)0542 (Given - Provider: Michelle Coker RN)1240 (Given - Provider: Jake Carlson RN)1736 (Given - Provider: Jake Carlson RN)2328 (Given - Provider: Yvette Aranda, DESTIN) 0622 (Given - Provider: Yvette Aranda, DESTIN)1242 (Given - Provider: Jake Carlson, DESTIN) aspirin EC tablet 81 mg 81 mg, Oral, DAILY, First dose on Tue09/19/17 at 1130, Until Discontinued, Routine 1240 (Given - Provider: Jake Carlson RN) 0820 (Given - Provider: Jake Carlson, DESTIN) atorvastatin (LIPITOR) tablet 10 mg 10 mg, Oral, EVERY EVENING, First dose on Tue09/13/17 at 1800, Until Discontinued, Routine 1301 (AUG Hold - Provider: Admin Adt - Reason: Transfer to a Procedural area)1449 (AUG Unhold - Provider: Admin Adt)1615 (Given - Provider: Jake Carlson RN) 1635 (Given - Provider: Jake Carlson RN) buPROPion (WELLBUTRIN SR or ZYBAN) SR tablet 150 mg 150 mg, Oral, 2 TIMES DAILY, First dose on Tue09/14/17 at 0900, Until Discontinued, DO NOT CRUSH OR OPEN, Routine 0837 (Given - Provider: Jake Carlson RN)1301 (AUG Hold - Provider: Admin Adt - Reason: Transfer to a Procedural area)1449 (AUG Unhold - Provider: Admin Adt)2143 (Given - Provider: Michelle Coker RN) 0855 (Given - Provider: Jake Carlson RN)2117 (Given - Provider: Yvette Aranda RN) 0819 (Given - Provider: Jake Carlson RN) folic acid (FOLVITE) tablet 1,000 mcg 1,000 mcg (1 mg), Oral, DAILY, First dose on Tue09/14/17 at 0900, Until Discontinued, Routine 0838 (Given - Provider: Jake Carlson RN)1301 ([facility] Hold - Provider: Admin Adt - Reason: Transfer to a Procedural area)1449 (AUG Unhold - Provider: Admin Adt) 0854 (Given - Provider: Jake Carlson RN) 0820 (Given - Provider: Jake Carlson RN) furosemide (LASIX) tablet 40 mg(Linked Group 1) 40 mg, Oral, DAILY AT NOON, First dose on Tue09/20/17 at 1200, Until Discontinued, Routine 1242 (Given - Provider: Jake Carlson RN) furosemide (LASIX) tablet 80 mg(Linked Group 1) 80 mg, Oral, EVERY MORNING, First dose on Tue09/20/17 at 0830, Until Discontinued, Routine 0843 (Given - Provider: Jake Carlson RN) gabapentin (NEURONTIN) capsule 300 mg 300 mg, Oral, 3 TIMES DAILY, First dose on Tue09/14/17 at 0900, Until Discontinued, Routine 0838 (Given - Provider: Jake Carlson RN)1301 (AUG Hold - Provider: Admin Adt - Reason: Transfer to a Procedural area)1449 (AUG Unhold - Provider: Admin Adt)1613 (Given - Provider: Jake Carlson RN)2143 (Given - Provider: Michelle Coker RN) 0855 (Given - Provider: Jake Carlson RN)1635 (Given - Provider: Jake Carlson RN)2117 (Given - Provider: Yvette Aranda, DESTIN) 0820 (Given - Provider: Jake Carlson RN)1500 (Due - Provider: Admin Adt) methyl salicylate-menthol (BENGAY) 15-10 % cream Topical (Top), 2 TIMES DAILY, First dose on 09/17/17 at 1400, Until Discontinued, To the lower back 0900 (Not Given - Provider: Jake Carlson RN - Reason: Patient/family refused)1301 (MAR Hold - Provider: Admin Adt - Reason: Transfer to a Procedural area)1449 (MAR Unhold - Provider: Admin Adt)2100 (Not Given - Provider: Michelle Coker RN - Reason: Patient/family refused) 0900 (Not Given - Provider: Jake Carlson RN - Reason: Patient/family refused)2120 (Not Given - Provider: Yvette Aranda RN - Reason: Patient/family refused) 0900 (Not Given - Provider: Jake Carlson RN - Reason: Patient/family refused) metoprolol (LOPRESSOR) tablet 12.5 mg 12.5 mg, Oral, EVERY 12 HOURS SCHEDULED (2 times per day), First dose (after last modification) on 09/18/17 at 0915, Until Discontinued, Hold for SBP < 90 or HR < 60, Routine 0907 (Given - Provider: Jake Carlson RN)1301 ([facility] Hold - Provider: Admin Adt - Reason: Transfer to a Procedural area)1449 ([facility] Unhold - Provider: Admin Adt)2143 (Given - Provider: Michelle Coker, DESTIN) 0854 (Given - Provider: Jake Carlson RN)211 (Given - Provider: Yvette Aranda, DESTIN) 0820 (Given - Provider: Jake Carlson RN) multivitamin with folic acid (THERA TAB) 400 mcg tablet 1 tablet 1 tablet, Oral, DAILY, First dose on 09/17/17 at 0900, Until Discontinued, Routine 0838 (Given - Provider: Jake Carlson RN)1301 ([facility] Hold - Provider: Admin Adt - Reason: Transfer to a Procedural area)1449 (MAR Unhold - Provider: Admin Adt) 0855 (Given - Provider: Jake Carlson RN) 0820 (Given - Provider: Jake Carlson RN) nicotine (NICODERM CQ) 21 mg/24 hr patch 21 mg(Linked Group 2) 21 mg, Transdermal, DAILY, First dose on Tue09/14/17 at 0900, Until Discontinued, Routine 0839 (Patch Applied - Provider: Jake Carlson RN)1301 (AUG Hold - Provider: Admin Adt - Reason: Transfer to a Procedural area)1449 (AUG Unhold - Provider: Admin Adt) 0906 (Patch Applied - Provider: Jake Carlson RN) 0820 (Patch Applied - Provider: Jake Carlson RN) nicotine (NICODERM CQ) 21 mg/24 hr patch Patch Removal(Linked Group 2) Transdermal, DAILY, First dose on Tue09/15/17 at 0900, Until Discontinued, Remove nicotine 21 mg/24 hr patch 0900 (Patch Removed - Provider: Jake Carlson RN)1301 (AUG Hold - Provider: Admin Adt - Reason: Transfer to a Procedural area)1449 (AUG Unhold - Provider: Admin Adt) 0900 (Patch Removed - Provider: Jake Carlson RN) 0900 (Patch Removed - Provider: Jake Carlson RN) nicotine (NICODERM CQ) 21 mg/24 hr patch Patch Verification(Linked Group 2) Transdermal, 2 TIMES DAILY, First dose on Tue09/14/17 at 1945, Until Discontinued, Verify nicotine 21 mg/24 hr patch 0900 (Patch (dose and location) verified - Provider: Jake Carlson RN)1301 (AUG Hold - Provider: Admin Adt - Reason: Transfer to a Procedural area)1449 (AUG Unhold - Provider: Admin Adt)2100 (Patch (dose and location) verified - Provider: Michelle Coker RN) 0900 (Patch (dose and location) verified - Provider: Jake Carlson RN)211 (Patch (dose and location) verified - Provider: Yvette Aranda RN) 0900 (Patch (dose and location) verified - Provider: Jake Carlson RN) pantoprazole (PROTONIX) injection 40 mg 40 mg, Intravenous, 2 TIMES DAILY, First dose on Tue09/18/17 at 0900, Until Discontinued 0908 (Given - Provider: Jake Carlson RN)1301 (AUG Hold - Provider: Admin Adt - Reason: Transfer to a Procedural area)1449 (AUG Unhold - Provider: Admin Adt)214 (Given - Provider: Michelle Coker RN) 0854 (Given - Provider: Jake Cralson RN)2115 (Given - Provider: Yvette Aranda, DESTIN) 0819 (Given - Provider: Jake Carlson RN) senna-docusate (PERICOLACE) 8.6-50 mg per tablet 1 tablet 1 tablet, Oral, 2 TIMES DAILY, First dose on Brii 09/15/17 at 2100, Until Discontinued, Routine 0838 (Given - Provider: Jake Carlson RN)1301 (AUG Hold - Provider: Admin Adt - Reason: Transfer to a Procedural area)144 (AUG Unhold - Provider: Admin Adt)2142 (Given - Provider: Michelle Coker RN) 0906 (Given - Provider: Jake Carlson RN)2116 (Given - Provider: Yvette Aranda, DESTIN) 0819 (Given - Provider: Jake Carlson RN) sucralfate (CARAFATE) 100 mg/mL oral suspension 1 g 1 g, Oral, 4 TIMES DAILY BEFORE MEALS & NIGHTLY, First dose on 09/19/17 at 2100, Until Discontinued, Routine 2115 (Given - Provider: Yvette Aranda, DESTIN) 0723 (Given - Provider: Jake Carlson RN)1243 (Given - Provider: Jake Carlson RN) thiamine (B-1) 250 mg in sodium chloride 0.9% 52.5 mL(Linked Group 3) 250 mg, Intravenous, DAILY, 5 doses, First dose on 09/17/17 at 0900, Last dose on Tue09/21/17 at 0900, Administer over 30 Minutes 1054 (New Bag - Provider: Jake Carlson RN)1124 (Stopped - Provider: Jake Carlson RN)1301 (AUG Hold - Provider: Admin Adt - Reason: Transfer to a Procedural area)1449 (AUG Unhold - Provider: Admin Adt) 0859 (New Bag - Provider: Jake Carlson RN)0929 (Stopped - Provider: Jake Carlson RN) 0818 (New Bag - Provider: Jake Carlson RN)0848 (Stopped - Provider: Jake Carlson RN) thiamine (B-1) injection 100 mg(Linked Group 3) 100 mg, Intravenous, DAILY, First dose on Brii 09/22/17 at 0900, Until Discontinued 1301 (AUG Hold - Provider: Admin Adt - Reason: Transfer to a Procedural area)1449 (AUG Unhold - Provider: Admin Adt) tiotropium (SPIRIVA) inhalation capsule with device 18 mcg 18 mcg, Inhalation, DAILY, First dose on Tue09/13/17 at 1900, Until Discontinued 0846 (Given - Provider: Jake Carlson RN)1301 (AUG Hold - Provider: Admin Adt - Reason: Transfer to a Procedural area)1449 (AUG Unhold - Provider: Admin Adt) 0752 (Given - Provider: Jake Carlson RN) 0819 (Given - Provider: Jake Carlson RN) Continuous Medication Order 09/18/2017 09/19/2017 09/20/2017 sodium chloride 0.9% infusion (CANCELED) 100 mL/hr, Intravenous, CONTINUOUS, Starting on Tue09/18/17 at 0100, Until Tue09/19/17 at 0800 0051 (New Bag - Provider: Hazel Eaton RN)1044 (New Bag - Provider: Jake Carlson RN)1301 (AUG Hold - Provider: Admin Adt - Reason: Transfer to a Procedural area)1449 (AUG Unhold - Provider: Admin Adt)2012 (New Bag - Provider: Michelle Coker, DESTIN) 0543 (New Bag - Provider: Michelle Coker RN)0855 (Stopped - Provider: Jake Carlson RN) PRN Medication Order 09/18/2017 09/19/2017 09/20/2017 bisacodyl (DULCOLAX) suppository 10 mg 10 mg, Rectal, DAILY PRN, Starting on 09/17/17 at 0841, Until Tue09/20/17 at 1814, Constipation, Routine 1301 ([facility] Hold - Provider: Admin Adt - Reason: Transfer to a Procedural area)1449 ([facility] Unhold - Provider: Admin Adt) calcium carbonate (TUMS) chewable tablet 500 mg 500 mg, Oral, 3 TIMES DAILY PRN, Starting on 09/17/17 at 0143, Until Tue09/20/17 at 1814, Heartburn, STAT 1301 ([facility] Hold - Provider: Admin Adt - Reason: Transfer to a Procedural area)1449 ([facility] Unhold - Provider: Admin Adt) 1736 (Given - Provider: Jake Carlson, DESTIN) carboxymethylcellulose (REFRESH PLUS) 0.5 % ophthalmic drops 1-2 drop 1-2 drop, Both Eyes, 3 TIMES DAILY PRN, Starting on 09/18/17 at 2109, Until Tu09/20/17 at 1814, Dry Eyes, Routine 2143 (Given - Provider: Michelle Coker, RN) 0326 (Given - Provider: Michelle Coker, RN)1010 (Given - Provider: Jake Carlson, DESTIN)2335 (Given - Provider: Yvette Aranda, DESTIN) ipratropium-albuterol (DUONEB) 0.5 mg-3 mg(2.5 mg base)/3 mL nebulizer solution 3 mL 3 mL, Nebulization, EVERY 4 HOURS PRN, Starting on 09/13/17 at 1736, Until Tu09/20/17 at 1814, Wheezing, Routine 1301 ([facility] Hold - Provider: Admin Adt - Reason: Transfer to a Procedural area)1449 ([facility] Unhold - Provider: Admin Adt) lactulose (CHRONULAC) 20 gram/30 mL oral solution 20 g 20 g, Oral, 3 TIMES DAILY PRN, Starting on 09/17/17 at 0841, Until 09/20/17 at 1814, Constipation, Please use before bisacodyl suppository., Routine 1301 ([facility] Hold - Provider: Admin Adt - Reason: Transfer to a Procedural area)1449 ([facility] Unhold - Provider: Admin Adt) oxyCODONE (ROXICODONE) immediate release tablet 5 mg 5 mg, Oral, EVERY 4 HOURS PRN, Starting on Brii 09/15/17 at 1529, Until Tue09/20/17 at 1814, Pain, Routine 0908 (Given - Provider: Jake Carlson, DESTIN)1301 ([facility] Hold - Provider: Admin Adt - Reason: Transfer to a Procedural area)1449 ([facility] Unhold - Provider: Admin Adt) 2125 (Given - Provider: Yvette Aranda DESTIN) 0622 (Given - Provider: Yvette Aranda RN) sodium chloride 0.9% infusion 10 mL/hr, Intravenous, CONTINUOUS PRN, Starting on Tue09/13/17 at 1305, Until Tue09/20/17 at 1814 1301 (AUG Hold - Provider: Admin Adt - Reason: Transfer to a Procedural area)1449 (AUG Unhold - Provider: Admin Adt) Linked Groups Order Group 1: furosemide (LASIX) tablet 80 mgJump to med 80 mg, Oral, EVERY MORNING, First dose on Tue09/20/17 at 0830, Until Discontinued, Routine And furosemide (LASIX) tablet 40 mgJump to med 40 mg, Oral, DAILY AT NOON, First dose on Tue09/20/17 at 1200, Until Discontinued, Routine Group 2: nicotine (NICODERM CQ) 21 mg/24 hr patch 21 mgJump to med 21 mg, Transdermal, DAILY, First dose on Tue09/14/17 at 0900, Until Discontinued, Routine And nicotine (NICODERM CQ) 21 mg/24 hr patch Patch VerificationJump to med Transdermal, 2 TIMES DAILY, First dose on Tue09/14/17 at 1945, Until Discontinued, Verify nicotine 21 mg/24 hr patch And nicotine (NICODERM CQ) 21 mg/24 hr patch Patch RemovalJump to med Transdermal, DAILY, First dose on Tue09/15/17 at 0900, Until Discontinued, Remove nicotine 21 mg/24 hr patch Group 3: thiamine (B-1) 500 mg in sodium chloride 0.9% 55 mL (COMPLETED) 500 mg, Intravenous, 3 TIMES DAILY, 9 doses, First dose on Tue09/13/17 at 2100, Last dose on Tue09/16/17 at 1500, Administer over 30 Minutes Followed by thiamine (B-1) 250 mg in sodium chloride 0.9% 52.5 mLJump to med 250 mg, Intravenous, DAILY, 5 doses, First dose on Tue09/17/17 at 0900, Last dose on Tue09/21/17 at 0900, Administer over 30 Minutes Followed by thiamine (B-1) injection 100 mgJump to med 100 mg, Intravenous, DAILY, First dose on Tue09/22/17 at 0900, Until Discontinued documented in this encounter Care Teams Varnish Dipper Relationship Specialty Start Date End Date Silvina Perdue MD [address] [facility] [address] [place] [address] PCP - General 04/28/10 documented as of this encounter
--- OUTSIDE RECORDS SUMMARY | 2024-04-02 21:46 | XMS_ITS | Encounter Summary ---
Author Organization [facility] [place] [address] Care Team Providers Care Prison Classification Counselor Name Role Phone Silvina Perdue MD Primary Care Provider [phone] Encounter Details Date Type Department Care Team (Late st Contact Info) Description 09/13/2017 [place] [id number] Unknown None Social History Tobacco Use Types Packs/Day Years Used Date Smoking Tobacco: Former Sex and Gender Information Value Date Recorded Sex Assigned at Not on file Gender Identity Not on file Sexual Orientation Not on file documented as of this encounter Plan of Treatment Not on file documented as of this encounter Procedures Procedure Name Priority Date/Time Associated Diagnosis Comments UPPER GI ENDOSCOPY Routine 09/18/2017 12 :59 PM EDT UPPER GI ENDOSCOPY Routine 09/13/2017 3: 06 PM EDT documented in this encounter Results * UPPER GI ENDOSCOPY (09/18/2017 12:59 PM EDT) UPPER GI ENDOSCOPY [facility] Endoscopy Procedure Date: 09/18/2017 12:59 PM ? Patient Name: Nain Kang ? Date of : 1950 ? Age: 67 ? Order #: [id number] ? Instrument Name: [id number] ? Procedure: ? Upper GI endoscopy Indications: ? Hematemesis, Previous upper GI bleed ? with blood in the stomach but no ? lesion identified., recurrent ? hematemesis last night Providers: ? Zain Sifuentes MD, Cristela Ram ? MD Naldo, Etelvina Gregg RN, ? Yoly Prieto, Store Host Referring MD: ?Silvina Perdue MD Medicines: ? Propofol per Anesthesia Complications: ? No immediate complications. Procedure: ? The procedure, indications, benefits, ? risks and alternatives were explained ? to the patient. Specifically ? discussed were potential ? complications including, but not ? limited to, bleeding, perforation, ? infection, missing a cancer, and ? adverse medication reactions. The ? Endoscope was introduced through the ? mouth, and advanced to the third part ? of duodenum. The patient tolerated ? the procedure well. The upper GI ? endoscopy was accomplished without ? difficulty. The patient tolerated the ? procedure well. ? Findings: ? The examined esophagus was normal. ? Stomach: There was a partial gastrectomy of the ? proximal stomach (the antrum was intact and it was ? difficult to retroflex endoscope in gastric body). ? Initially there was no blood in the stomach or active ? bleeding. After attempt at U turn there was oozing of ? fresh heme from two punctate lesions in the proximal ? gastric body. Both sites were treated with APC at 20 ? omalley 1.4 effect, flow 2. Each site quickly ceased ? oozing. ? The examined duodenum was normal. ? Moderate Sedation: ? Not applicable - See Anesthesia documentation Impression: ?- Normal esophagus. ? - Normal examined duodenum. ? Altered gastric anatomy from partial ? gastric resection. No bleeding ? initially and no blood in stomach. ? Oozing from two sites in proximal ? stomach when U turn was performed ? both treated with APC. Not clear if ? these were small AVM's that were ? provoked to bleed by scope or merely ? scope trauma in the context of ? anticoagulation Recommendation: ?Hold anticoagulation for the next ? several days ? - The attending physician listed ? above was present for the entire ? procedure. ? Attending Participation: ? I personally performed the entire procedure. ? _ Zain Sifuentes MD 09/18/2017 2:08:47 PM This report has been signed electronically. Number of Addenda: 0 Note Initiated On: 09/18/2017 12:59 PM [facility] 09/18/2017 12:5 9 PM EDT Silvina Perdue MD GENERAL SURGICAL ORD ERABLES [facility]ATION * UPPER GI ENDOSCOPY (09/13/2017 3:06 PM EDT) Pathologist [facility] UPPER GI ENDOSCOPY [facility] Endoscopy Procedure Date: 09/13/2017 3:06 PM ? Patient Name: Nain Kang ? N: [id number] ? Date of : 1950 ? Age: 67 ? Order #: [id number] ? Instrument Name: [id number] ? Procedure: ? Upper GI endoscopy Indications: ? Melena Providers: ? Estrellita Nuñez ? MD Christian, Jacky Rutherford RN Referring MD: ? Medicines: ? Monitored Anesthesia Care Complications: ? No immediate complications. Procedure: ? Pre-Anesthesia Assessment: ? - Prior to the procedure, a History ? and Physical was performed, and ? patient medications and allergies ? were reviewed. The patient's ? tolerance of previous anesthesia was ? also reviewed. The risks and benefits ? of the procedure and the sedation ? options and risks were discussed with ? the patient. All questions were ? answered, and informed consent was ? obtained. Prior Anticoagulants: The ? patient has taken Eliquis (apixaban). ? ASA Grade Assessment: III - A patient ? with severe systemic disease. After ? reviewing the risks and benefits, the ? patient was deemed in satisfactory ? condition to undergo the procedure. ? The procedure, indications, benefits, ? risks and alternatives were explained ? to the patient. Specifically ? discussed were potential ? complications including, but not ? limited to, bleeding, perforation, ? infection, missing a cancer, and ? adverse medication reactions. The ? Endoscope was introduced through the ? mouth, and advanced to the third part ? of duodenum. The patient tolerated ? the procedure well. The upper GI ? endoscopy was accomplished without ? difficulty. The patient tolerated the ? procedure well. ? Findings: ? Esophagogastric landmarks were identified: the Z-line ? was found at 35 cm from the incisors. ? Red blood was found in the distal esophagus. ? LA Grade A (one or more mucosal breaks less than 5 ? mm, not extending between tops of 2 mucosal folds) ? esophagitis with no bleeding was found. ? Red and altered blood was found in the gastric fundus ? with adherent clot. Lavage of the area was performed ? using a large amount, resulting in clearance with ? adequate visualization. No underlying source of ? bleeding was found. Stomach appeared to be surgically ? alter, potentially with a partial gastrectomy. ? Hematin (altered blood/coffee-groun d-like material) ? was found in the entire duodenum. Lavage of the area ? was performed using a large amount, resulting in ? incomplete clearance with fair visualization. ? Moderate Sedation: ? Not applicable - See Anesthesia documentation Impression: ?- Esophagogastric landmarks ? identified. ? - Red blood in the distal esophagus. ? - LA Grade A esophagitis. ? - Hematin (altered ? blood/coffee-groun d-like material) in ? the gastric fundus. ? - Blood in the entire examined ? duodenum. ? - No specimens collected. Recommendation: ?- Return patient to ICU for ongoing ? care. ? - Continue IV PPI. ? - Discontinue octreotide/ceftria xone ? as no evidence of portal hypertension ? was seen. ? - Hb Q8 hours. ? - Active type and screening. ? Attending Participation: ? I was present and participated during the entire ? procedure, including non-adams portions. ? Marixa Ross Sobeida, 09/13/2017 5:32:39 PM Number of Addenda: 0 Note Initiated On: 09/13/2017 3:06 PM [facility] 09/13/2017 3:06 PM EDT Unknown GENERAL SURGICAL ORD ERABLES [facility] documented in this encounter Visit Diagnoses Not on filedocumented in this encounter Care Teams Prison Classification Counselor Relationship Specialty Start Date End Date Silvina Perdue MD [address] [facility] [address] [place] [address] PCP - General 04/28/10 documented as of this encounter
--- OUTSIDE RECORDS SUMMARY | 2024-04-02 21:46 | XMS_ITS | Encounter Summary ---
Author Organization [facility] Address [facility] [place] [address] Care Team Providers Care Cut Out Worker Name Role Phone Silvina Perdue MD Primary Care Provider [phone] Reason for Visit * Auth/Cert Specialty Diagnoses / Procedures Referred By Viridiana richards Referred To Contact Diagnoses Acute upper GI bleed UPPER GIB GI Bleed per CR Procedures EGD, UPPER GI ENDOSCOPY Referral ID Status Reason Start Date Expiration Date Visits Re quested Visits Authorized [id number] 1 1 Encounter Details Date Type Department Care Team (Latest Contact Info) Description 09/13/2017 12:59 PM EDT - 09/20/2017 4:14 PM EDT Hospital Encounter [address] [place] [id number] [place] [address] [place] [address] [place] [address] [place] [address] Acute upper GI bleed; Iron deficiency anemia due to chronic blood loss; ETOH abuse; History of GI tract cancer; Paroxysmal atrial fibrillation; History of ASCVD; Pancreatitis c/b pseudocyst/cyst 2003; Depression, unspecified depression type; Chronic obstructive pulmonary disease, unspecified COPD type; Tobacco abuse disorder Discharge Disposition: Home with VNA Social History Tobacco Use Types Packs/Day Years [...] Nain Kang Patient Age: 67 y.o. Language: Filipino Race: White Ethnicity: Not nor Admit date: [...] please contact your inpatient physician through the [facility] Car Cleaning Supervisor . Issues afterhours and on weekends will [...] back pain on chronic opiates??who presents to [facility] today withupper GI bleed. ?? He was dropped off to [facility] by a friend, and is a [...] had an episode of hematemesis in the [facility] ED, and received Protonix, 4uPRBC and FFP. He was transferred to [facility] ICU via [facility] and received Tranexamic acid en route. ?? In [facility] ICU (09/13-09/14), he was hemodynamically stable. He [...] and Lab Data: Labs: Recent Labs 09/20/17 0600 09/19/17 0534 09/18/17 0645 09/18/17 0148 WBC 12.7* 10.0* -- 10.6* HGB 7.5* 8.0* 8.3* 6.9* HCT 23.3* 23.4* 25.5* 21.1* PLATELET 188 165 -- 132* Recent Labs 09/20/17 0600 09/19/17 0534 09/18/17 0148 NA 138 143 140 K 4.1 4.2 4.8 CL 111* 113* 110* CO2 19* 19* 20* BUN 19 21* 33* CREATININE 0.72* 0.74* 0.71* No results for input(s): AST, ALT, ALKPHOS, BILITOT, BILIDIR in the last 168 hours. Recent Labs 09/20/17 0600 09/19/17 0534 09/18/17 0148 09/14/17 0123 CALCIUM 8.1* [...] distal esophagus. LA Grade A esophagitis. Hematin (altered??blood/unxxrf-wsjlro-duqu material) in the gastric fundus.Blood in the [...] Your Primary Care Provider: Silvina Perdue MD [phone] For questions regarding this document or issues relating to this hospitalization on the Medical Service, please contact your inpatient physician through the [facility] Car Cleaning Supervisor . Issues afterhours and on weekends will be handled by the Hospitalist staff on-call. General Instructions None Future Appointments and Orders Future Orders Complete By Expires Referral to Home Health - at DISCHARGE [[id number] CPT(R)] As directed Process Instructions: Scheduling Instructions: Comments: DOCUMENTATION FOR VNA SERVICES (INCLUDING THOSE PATIENTS WITH MEDICARE COVERAGE REQUIRING HOME VNA SERVICES AND/OR HOSPICE SERVICES) PATIENT'S LOCATION: [address] [facility] [address] (home) Cell: Telephone Information: Mixing Technician's Name: self In discussion with the attending physician, it is certified that this patient is under their care and that they, or a Nurse Practitioner,Clinical Nurse specialist or Physician Zinc Furnace Charger who is working directly with them, had [...] for managing ADL's. HOME HEALTH CARE AGENCY: [facility] PHONE: [phone] FAX: [phone] Start of care: 24-48 hours post discharge [...] this patient's PCP: MD N[address] / [facility] [address] All A agencies which cover the area of patient's residence have been reviewed, either verbally naye writing, and patient/family have chosen the home health care agency noted Questions: Agency name and contact information: [facility] Patient location post discharge: home What services are requested: Registered Nurse Physical Therapy Occupational Therapy Start date: Responsible MD post discharge contact info: PCP Walker standard [EQ135 Custom] As directed Process Instructions: Scheduling Instructions: Comments: Nain Kang [address] [facility] [id number] (home) Telephone Information: Diagnosis:Fluid vol overload with BLE edema requiring walker r/t Unsteady gait. Chronic back pain and on opioids requiring walker to safely ambulate. Patient's: Hgt: 5'6 Wgt: 139 lbs VENDOR: Ortho care Ordering: Front wheel walker Deliver to 's hospital room #: 148 chiara Questions: Vendor [...] Your Primary Care Provider: Silvina Perdue MD [phone] For questions regarding this document or issues relating to this hospitalization on the Medical Service, please contact your inpatient physician through the [facility] Car Cleaning Supervisor . Issues afterhours and on weekends will [...] picked pt up. Safety maintained. VNA services ([facility]) called to give report, left a message on voiceIcanbesponsoredil. * El Connors MD - 09/20/2017 1:49 [...] spent >30 minutes (Day of Discharge Code 10923) involved in the final examination of the [...] PM EDT Patient to dc now The patient/key account representative has been provided a list of Home Health Agencies/DME vendors which servetheir preferred geographic area. A letter describing our affiliations was reviewed with them and they were educated about their right to choose where referrals are placed. Patient requests referral to: [facility] Expected date of discharge:Now. Referral routed to the Building Maintenance Custodian for matching with agency/vendor and to provide [...] MD TEAM/PAGER: [phone] Subjective/24hr events: - Hgb stable - No [...] following: Recent Labs 09/19/17 0534 09/18/17 0645 09/18/17 0148 09/17/17 0450 WBC 10.0* -- 10.6* -- 11.1* HGB 8.0* 8.3* 6.9* < > 8.9* HCT 23.4* 25.5* 21.1* < > 28.4* PLATELET 165 -- 132* -- 138* < > = values in this interval not displayed. Recent Labs 09/19/17 0534 09/18/17 0148 09/17/17 0450 NA 143 140 142 K 4.2 [...] - Hematemesis this AM - ~200cc ; eliquis held, ASA held - Endoscopy done, likely [...] - Pending report Medications: Scheduled Meds: ??? [MAR Hold] pantoprazole 40 mg Intravenous BID ??? [MAR Hold] metoprolol 12.5 mg Oral 2 times per day ??? [MAR Hold] multivitamin with folic acid 1 tablet Oral Daily ??? [MAR Hold] methyl salicylate-menthol Topical (Top) BID ??? [MAR Hold] acetaminophen 1,000 mg Oral Q6H HOMER ??? [MAR Hold] senna-docusate 1 tablet Oral BID ??? [MAR Hold] nicotine 21 mg Transdermal Daily And ??? [MAR Hold] Patch Verification 1 patch Transdermal BID And ??? [MAR Hold] nicotine 1 patch Transdermal Daily ??? [MAR Hold] buPROPion 150 mg Oral BID ??? [MAR Hold] gabapentin 300 mg Oral TID ??? [MAR Hold] folic acid 1 mg Oral Daily ??? [MAR Hold] thiamine 250 mg Intravenous Daily Followed by ??? [MAR Hold] thiamine 100 mg Intravenous Daily ??? [MAR Hold] atorvastatin 10 mg Oral QPM ??? [MAR Hold] tiotropium 18 mcg Inhalation Daily Continuous Infusions: ??? [AUG Hold] sodium chloride 0.9% 100 mL/hr (09/18/17 1044) ??? [MAR Hold] sodium chloride 0.9% PRN Meds:.[MAR Hold] calcium carbonate, [MAR Hold] lactulose, [MAR Hold] bisacodyl, [MAR Hold] oxyCODONE, [MAR Hold] sodium chloride 0.9%, [MAR Hold] ipratropium-albuterol * El Connors MD - [...] MD TEAM/PAGER: [phone] Subjective/24hr events: - Hgb stable,has severe low [...] No complaints of pain or discomfort. * Kerry Alanis DT - 09/16/2017 3:46 PM EDT Nutrition [...] Klein MD - 09/16/2017 12:19 PM EDT [facility] Attending Daily Progress Note Admit Date: [...] of GI bleed Yao Klein MD TEAM/PAGER: [phone] Subjective/24hr events: - diet advanced, Hgb stable, [...] Infusions: ??? lactated Ringers 75 mL/hr (09/15/17 031) ??? sodium chloride 0.9% PRN Meds:.HYDROcodone-acetaminophen, sodium chloride 0.9%, ipratropium- albuterol, dextrose 50% OR glucagon (human recombinant) * Estrellita Gonzales - 09/14/2017 11:06 AM EDT GASTROENTEROLOGY & HEPATOLOGY PROGRESS NOTE Nain Kang [id number] 1950 ID: 67 y.o. male with PMH significant for CAD s/p CABG in 2000 on aspirin, atrial fibrillation on eliquis, DM, alcohol abuse, pancreatitis with pseudocyst, COPD, surgical flap infection with rib removal, chronic narcotic use who is admitted to [facility] for GI bleeding. Of note, the medical [...] (per patient report) who is admitted to [facility] for GI bleeding. On EGD yesterday there [...] Dr. Vidales. Estrellita Gonzales MD Gastroenterology Fellow #[id number] Associated attestation - Marixa Vidales MD - 09/14/2017 4:42 PM EDT Attending Addendum: I interviewed and examined the patient with Dr. Gonzales on rounds. I confirm the history and keyphysical findings outlined in this note. The assessment and plan were formulated in discussion withme at the time of this encounter, and I agree with them as documented. Marixa Vidales MD * Robb, Zack Richards MD - 09/14/2017 8:43 AM EDT MICU STAFF PROGRESS NOTE Critical Care Medicine Author: ZACK HOOD Patient seen and examined on critical care rounds. Transferred from [facility] ([facility]) yesterday for GI bleeding - dark stools [...] documented in this encounter H&P Notes * Cristela Hitchcock - 09/18/2017 1:19 PM EDT Gastroenterology and [...] neurologic complication, without long-term current use of czuulagO32.49 ??? Pancreatitis c/b pseudocyst/cyst 2004 K86.2, K86.3 [...] patient. ID: 67 y.o. Male presents to [facility] with UGIB History of Present Illness: HPI 67 y/o M with PMHx CAD s/p 4v CABG on ASA, Afib on Eliquis, DM2 c/b neuropathy, Etoh use, pancreatitis w/ pseudocyst n 2003, COPD, gastric cancer (s/p ?partial gastrectomy in 2000, c/b surgical flap infection and removal of 4 left ribs), back pain on chronic opiates??who presents to [facility] today withupper GI bleed. He was dropped off to [facility] by a friend, and is a [...] had an episode of hematemesis in the [facility] ED, and received Protonix, 4uPRBC and FFP. He was transferred to [facility] ICU via [facility] and received Tranexamic acid en route. In [facility] ICU (09/13-09/14), he was hemodynamically stable. He [...] ENDOSCOPY performed by Marixa Vidales MD at [facility] END[facility]COPY Prior To Admission Medications: Prescriptions Prior [...] distal esophagus. LA Grade A esophagitis. Hematin (altered??blood/rwpldd-njstiu-fncm material) in the gastric fundus.Blood in the [...] on home , who pres ents to [facility] with hemodynamically unstable upper GI bleed, and was transferred to [facility] ICU for urgent GI evaluation. EGD 09/13 [...] PO consistently. # Chronic back pain: On [place] at home reportedly - will hold for now. Would senior genetic counselor re continuing to avoid NSAIDs Admit [...] Consent signed. Estrellita Gonzales MD Gastroenterology Fellow #[id number] * Vera Ortiz PA - 09/13/2017 2:25 [...] pain on chronic opiates who presents to [facility] today with upper GI bleed. HPI: [...] had one episode of hematemesis in the [facility] ED. [facility] called for transfer. He received protonix, 4U RBC and FFP at the OSH. He was [facility] by [facility] in stable condition and received tranexamic acid en route. ROS: patient is a poor historian, ROS positive for a recent fall and 3-4 months of increasing EtOH use No family history on file. Social History: Per friend in OSH ED, 3-4 months of heavy drinking Outpatient [...] 13, 2017 Critical Care Green Team (pager [phone]) Dr. Hood is the attending of record [...] that pt ready for transfer back to [facility] documented in this encounter Miscellaneous Notes * [...] chronic opiates who presents in transfer from [facility] today with upper GI bleed Precautions/Restrictions: [...] with home health LYNDSAY HARP PTA Pager: [phone] Inpatient Physical Therapy 09/20/17 1132 Rehab Evaluation [...] chronic opiates who presents in transfer from [facility] today with upper GI bleed Precautions/Restrictions fall Treatment Number PT 2 Vital Signs SpO2 95 % O2 Device RA Pain Scale/Rating Pain Assessment Scale Numbers (Numeric Rating Pain Scale) Pain Level 0 Mobility Assessment/Training Additional Documentation Gait Assessment/Treatment (Group);Transfer Assessment/Treatment (Group) Transfer Assessment/Treatment [place] (Sit-Stand Transfers) supervision required [place] (Stand-Sit Transfers) supervision required Wuk-Lziwb-Wvm Assistive Device (Transfers) rolling walker (vs no AD) Impairments (Transfers) ROM (range of motion) decreased;strength decreased (endurance) Gait Assessment/Treatment [place] (Gait) supervision required Assistive Device (Gait) rolling [...] 5 - 7 days Gait Training Goal, [place] Level conditional independence Gait Training Goal, Assist [...] chronic opiates who presents in transfer from [facility] today with upper GI bleed Precautions/Restrictions: [...] with assist, home with home health Pager: [phone] Meredith Campo OT 09/20/2017 Occupational Therapy Rehabilitation [...] chronic opiates who presents in transfer from [facility] today with upper GI bleed Hearing [...] Testing Assessment Detail BUE 4/5 shoulders > automatic grinder operator Transfer Assessment/Treatment [place] (Sit-Stand Transfers) supervision required;verbal cues required [place] (Stand-Sit Transfers) supervision required;verbal cues required Fho-Lfamw-Pyl Assistive Device (Transfers) rolling walker Comment (Transfers) 1 vc for walker safety and1 vc to use walker to amb back from bathroom. Gait Assessment/Treatment [place] (Gait) supervision required Assistive Device (Gait) rolling walker Comment (Gait) Pt ambulated to/from bathroom; no LOB observed. ADL Assessment/Intervention Additional Documentation Bathing Assessment/Training (Group);Grooming Assessment/Training (Group);Lower Body Dressing Assessment/Training (Group);Toileting Assessment/Training (Group);Upper Body Dressing Assessment/Training (Group) Bathing Assessment/Training [place] Level (Bathing) minimum assist (75% patient effort) Comment (Bathing) Pt reports he has been able to wash without assist Upper Body Dressing Assessment/Training [place] Level (UB Dressing) independent Lower Body Dressing Assessment/Training [place] Level (LB Dressing) conditional independence Comment (LB Dressing) FWW for balance during pants hike Toileting Assessment/Training [place] Level (Toileting) conditional independence Comment (Toileting) pt managed clothing and hygiene without assist Grooming Assessment/Training [place] Level (Grooming) set up required Comment (Grooming) [...] (Group) Planned Therapy Interventions ADL retraining;IADL retraining 2016 OT Evaluation Code Rationale: ?? Diagnosis & [...] Handling Outcome: Ongoing (Interventions Implemented as Appropriate) 09/19/1753 09/19/17 1604 [place] Fall Risk History of [...] Control Outcome: Ongoing (Interventions Implemented as Appropriate) 09/19/17 0953 09/19/17 1604 Safety Interventions Isolation Precautions -- standard precautions maintained Infection Prevention -- single patient room provided Coping Strategies Supportive Measures active listening utilized;verbalization of feelings encouraged;self-responsibility promoted;self-care encouraged -- * Plan of Care - Michelle Coker RN - 09/19/2017 6:05 AM EDT Problem: Patient Care Overview Goal: Plan of Care Review Outcome: Ongoing (Interventions Implemented as Appropriate) 09/18/17184909/18/172199 Coping/Psychosocial Plan Of Care Reviewed With -- [...] Review Outcome: Ongoing (Interventions Implemented as Appropriate) 09/18/171849 Coping/Psychosocial Plan Of Care Reviewed With patient [...] Outcome: Ongoing (Interventions Implemented as Appropriate) 09/18/17 11409/18/17 1627 Safety Interventions Isolation Precautions -- standard [...] ptw/ ~200cc hemoptysis, bright red blood - ADMITTING CLERK made aware. Pt made NPO, maint IVF initiated & infusing per orders. H&H drawn x2, 2pt drop within 24hr period - see results review. ADMITTING CLERK & Life Safety RN notified. 1u pRBCs ordered & administered. Repeat H&H drawn, awaiting results (see results review). Per ADMITTING CLERK, GI to follow up this a.m. Sleeping [...] at 0330. Medicine team [phone] paged [phone]. Lianna added to PRN, pt states that he [...] * Plan of Care - Parth High V, RN - 09/14/2017 5:16 PM EDT Problem: [...] EVALUATION: * Plan of Care - Malena Shi PT - 09/14/2017 11:30 AM EDT Physical [...] chronic opiates who presents in transfer from [facility] today with upper GI bleed Precautions/Restrictions: [...] with home health MALENA SHI, PT Pager: [phone] Inpatient Physical Therapy 2017 PT Evaluation Code [...] neurologic complication, without long-term current use of blndbypG83.49 ??? Pancreatitis c/b pseudocyst/cyst 2003 K86.2, K86.3 [...] chronic opiates who presents in transfer from [facility] today with upper GI bleed Precautions/Restrictions [...] (see comments) (flat bed, seat deflate) Scoot/Bridge [place] (Bed Mobility) supervision required;verbal cues required (donned pants) Oqobad-at-Gbc [place] (Bed Mobility) supervision required Comment (Bed Mobility) cues for initiation of movement Transfer Assessment/Treatment Bed-Chair [place] (Transfers) contact guard assist Nti-Pvwlc-Uzu Assistive Device (Transfers) rolling walker [place] (Sit-Stand Transfers) contact guard assist [place] (Stand-Sit Transfers) contact guard assist Aok-Ykeqv-Ctk Assistive Device (Transfers) rolling walker Comment (Transfers) cues for initiation of movement Gait Assessment/Treatment [place] (Gait) contact guard assist Assistive Device (Gait) [...] good balance Sitting Balance: Dynamic good balance Nuy-ed-Tdney Balance fair balance Standing Balance: Static good [...] 5 - 7 days Gait Training Goal, [place] Level conditional independence Gait Training Goal, Assist [...] used to select the disability modifier. Mr. Kang'yanet current G-Code functional level is 0% impaired based upon [facility] * Plan of Care - Roxann Alanis [...] CPG). Outcome: Ongoing (Interventions Implemented as Appropriate) 09/13/178 Gastrointestinal Bleeding Problems Assessed (GI Bleeding) all OUTCOME EVALUATION NOTE: OUTCOME SUMMARY: Pt arrived via [facility] from [facility], A/Ox4, 2LNC, received 4U of PRBC's [...] frequent visual checks Surveillance [continuous indirect monitoring]: [place] ICU Patient-specific fall prevention interventions for sensory deficits provided, if applicable: CPG GOAL OUTCOME EVALUATION: * Initial Assessments - Mio Nelson RN - 09/13/2017 4:08 PM EDT Office of Care Management Initial Assessment Mio Nelson RN reviewed record and discussed patient with Care Team. Source of Information: [facility] Green Team, bedside nurse, chart review, interviewing [...] pain on chronic opiates who presents to [facility] today with upper GI bleed. Vera Ortiz PA No past medical history on file. Hospitalizations within the Past 30 Days: No [facility] admits in last 30 days. Transferred from [facility] to [facility] on 09/13 Anticipated Length Of Stay (If known): TBD Current Decision-Making Capacity: Patient is A&Ox3 with some confusion, poor historian He has current decision making capacity. Advance Care Planning: Full Code No AD in [facility]. will provided advance directive booklet and forms to patient and/or family and will discuss at alater time. [place] surrogacy law and process of guardianship will also be discussed If AD's have not been completed then (Patt Kang-Anthony/sister [phone] (h)) would be surrogate decision maker per [place] surrogate decision making law. Any patient receiving care at [facility] must abide by [place] law. The hierarchy for surrogate decision making [...] (i) The agent with financial power of criminal defense attorney or a conservator appointed in accordance with RSA 464-A. (j) The guardian of the patient???s estate. Current Coping/Education/Information Needs: Current coping questions and concerns have been addressed with patient and/or their family. They understand that when he moves to a regular floor he will work with another cyanide case hardener until discharge. I really can't read. I [...] 1 level living when inside apartment. [address] [facility] [address] Social & Family Supports/Community Resources: sister, and neighbor Extended Emergency Contact Information Primary Emergency Contact: Lyudmila Bellamy Address: [address] [place] [address] [facility] Relation: Friend Secondary Emergency Contact: Patt Mirza Address: [address] Relation: Sibling Behavioral Health History: take wellbutrin but don't think it is for depression Substance Use/Abuse: Smoking hx: current smoker 1 ppd for a long time. EtOH hx: Per friend in OSH ED, 3-4 months of heavy drinking. I drink a few beers a night. Illicit drug use hx: denies Other Pertinent/Service Specific Information: none Health/Prescription Coverage: Primary Insurance: MEDICARE Secondary Insurance: MEDICAID [place] Prescription Coverage: YES Preferred Pharmacy: [id number], [place] - [address] [phone] Other: none Primary Care Provider: Silvina Perdue MD [phone] Patient/Caregiver Goals of Treatment: get better Potential Needs for Transition of Care: CM to discussed with patient levels of rehab including SNF/Rehab and VNA home health and hospice care when medically stable. Also to be discussed is the need to accept first bed available when patient is medically ready. Rehab/SNF: willing to go to [facility] [place] [address] if needed Home Health: TBD willing to use [facility] [employer] [facility] PHONE: [phone] FAX: [phone] if needed DME: TBD (uses a cane [...] of care planning. Mio Nelson RN ICU Retanner Pager [phone] * Consult Note - Marixa Vidales MD - 09/13/2017 2:37 PM EDT GASTROENTEROLOGY & HEPATOLOGY CONSULTATION Initial Consult Note Nain Kang 1950 [id number] Requesting Provider: Team Critical Care REASON FOR CONSULTATION GI bleeding, melena HISTORY OF PRESENT ILLNESS Nain Kang is a 67 y.o. year old CAD s/p CABG in 2000 on aspirin, atrial fibrillation on eliquis, DM, alcohol abuse, pancreatitis with pseudocyst, COPD, esophageal cancer s/p esophagectomy 2000, surgical flap infection with rib removal, chronic narcotic use who is admitted to [facility] for GI bleeding. Patient states that he [...] chronic narcotic use who is admitted to [facility] for GI bleeding. Patient clearly describes melena [...] primary team. Estrellita Gonzales MD Gastroenterology Fellow #[id number] Attending Addendum: I interviewed and examined the [...] POCT GLUCOSE Routine 09/13/2017 8:07 PM EDT EGD, UPPER GI ENDOSCOPY (WRVU 2.09) 09/13/2017 4:22 PM EDT GI Bleed per CR ABORH RECHECK STATUS Routine 09/13/2017 1:19 PM [...] POCT GLUCOSE Routine 09/13/2017 1:08 PM EDT JAIL OFFICER SCAN 09/13/2017 12:00 AM EDT documented in this encounter Results * ABORH Recheck Status (09/20/2017 9:08 AM EDT) ABORH Type Recheck Completed [facility] Blood specimen (specimen) Venous Draw / Unknown 09/20/2017 9:08 AM EDT 09/20/2017 9:22 AM EDT Narrative Resulting Agency Comment Spec In Lab El Connors MD BLOOD BANK LAB ORDER CORDELIA Performing Organization Address [facility]/ZIP Co de Phone Number [facility] [place] [address] * Selected Cell Screen (09/20/2017 9:08 AM EDT) [facility] Ab Screen Interp Previously identified Anti-K, M. No additional alloantibodies detected.* *Due to the presence of alloantibody(ies) additional time is required for preparation of Red Cell Products. See initial antibody identification report for additional information. [facility] Blood specimen (specimen) Venous Draw / Unknown 09/20/2017 9:08 AM EDT 09/20/2017 9:22 AM EDT Narrative Resulting Agency Comment Spec In Lab El Connors MD BLOOD BANK LAB ORDER CORDELIA Performing Organization Address City/[facility]/ZIP Co de Phone Number [facility] [place] [address] * ABORh Type Manual (09/20/2017 9:08 AM EDT) Pathologist [facility] Expires at [id number] on: 09/23/2017 [facility] ABORH Type O Pos [facility] Blood specimen (specimen) Venous Draw / Unknown 09/20/2017 9:08 AM EDT 09/20/2017 9:22 AM EDT Narrative Resulting Agency Comment Spec In Lab El Connors MD BLOOD BANK LAB ORDER CORDELIA [facility] [place] [address] * (ABNORMAL) Differential, Automated (09/20/2017 6:00 AM EDT) [facility] Neutrophil % 76.9 % [facility] Neutrophil Absolute 9.75(H) 1.70 - 6.10 x10(3)/mc L [facility] Lymph % 11.4 % [facility] Lymphocytes Abs 1.4 0.9 - 3.2 x10(3)/mc L [facility] Monocyte % 8.2 % [facility] Monocyte Abs 1.0(H) 0.3 - 0.9 x10(3)/mc L [facility] Eos % 2.0 % [facility] Eosinophils Abs 0.3 0.0 - 0.4 x10(3)/mc L [facility] Basophil % 0.2 % [facility] Baso Absolute 0.0 0.0 - 0.1 x10(3)/mc L [facility] Immature Gran % 1.30 % [facility] Comment: Immature granulocytes(IG's)percentage and absolute count will include metamyelocytes, myelocytes, and promyelocytes. Blood smears from CBCs yielding IG's will be scanned manually for concordance. If this scan disagrees with the automated IG or if promyelocytes are noted, a manual differential will be performed. Immature Gran Absolute 0.17(H) 0.00 - 0.04 x10(3)/mc L [facility] Blood specimen (specimen) 09/20/2017 6:00 AM EDT 09/20/2017 6:19 AM EDT Narrative Resulting Agency Comment Spec In Lab Vera S Diana HASSAN HEMATOLOGY ORDERABLE S [facility] [place] [address] * (ABNORMAL) Hemogram (09/20/2017 6:00 AM EDT) White Blood Cell 12.7(H) 4.0 - 9.5 x10(3)/[facility] Red Blood Cell 2.42(L) 4.58 - 5.54 x10(6)/mc L [facility] Hemoglobin 7.5(L) 13.7 - 16.5 gm/dL [facility] Hematocrit 23.3(L) 40.5 - 48.5 % [facility] Mean Cell Volume 96.3(H) 82.9 - 93.1 fL [facility] Mean Cell Hemoglobin 31.0 27.5 - 32.1 pg [facility] Mean Cell Hemoglobin Concentration 32.2 32.0 - 35.7 gm/dL [facility] Platelet 188 145 - 357 x10(3)/[facility] RDW Standard Deviation 58.8(H) 36.0 - 45.0 [facility] RDW coefficient of variation 20.0(H) 11.4 - 13.8 % [facility] Mean Platelet Volume 11.0 7.6 - 12.9 [facility] NRBC% auto 0.3 % [facility] NRBC Absolute 0.040(H) 0.000 - 0.000 x10(3)/mc L [facility] Blood specimen (specimen) 09/20/2017 6:00 AM EDT 09/20/2017 6:19 AM EDT Narrative Resulting Agency Comment Spec In Lab Vera HASSAN HEMATOLOGY ORDERABLE S Performing Organization Address City/[facility]/ZIP Co de Phone Number [facility] [place] [address] * (ABNORMAL) Basic Metabolic Panel (non-fasting) (09/20/2017 6:00 AM EDT) Glucose 82 65 - 199 mg/dL [facility] Comment:Diabetes: >=200 mg/d L plus symptoms Blood Urea Nitrogen 19 10 - 20 mg/dL [facility] Creatinine 0.72(L) 0.80 - 1.50 mg/dL [facility] Sodium 138 135 - 145 mmol/L [facility] Potassium 4.1 3.5 - 5.0 mmol/L [facility] Comment: Please note: ??Patients with WBC >100,000 may have falsely elevated Potassium levels. ??For accurate Potassium quantification in these patients send serum separator tube (gold top) for subsequent determinations. ??Contact the Clinical Chemistry Laboratory if there are any questions. Chloride 111(H) 98 - 107 mmol/L [facility] Carbon Dioxide 19(L) 22 - 31 mmol/L [facility] Anion Gap 8 5 - 15 mmol/L [facility] Calcium 8.1(L) 8.5 - 10.5 mg/dL [facility] Est Glomerular Filtration Rate >60 >=60 [facility] Comment: The reported eGFR should be multiplied by 1.2 for patients. The MDRD is not an appropriate measure of renal function for patients with body mass extremes or in patients with acute kidney failure. http://Comixology.com/DHnkdep http://Comixology.com/DHMCnkf Blood specimen (specimen) 09/20/2017 6:00 AM EDT 09/20/2017 6:19 AM EDT Narrative Resulting Agency Comment Spec In Lab Shilpa Mercedes MD CHEMISTRY ORDERABLES [facility] [place] [address] * (ABNORMAL) Differential, Automated (09/19/2017 5:34 AM EDT) Neutrophil % 70.1 % [facility] Neutrophil Absolute 6.98(H) 1.70 - 6.10 x10(3)/ L [facility] Lymph % 13.8 % [facility] Lymphocytes Abs 1.4 0.9 - 3.2 x10(3)/ L [facility] Monocyte % 10.9 % [facility] Monocyte Abs 1.1(H) 0.3 - 0.9 x10(3)/ L [facility] Eos % 2.3 % [facility] Eosinophils Abs 0.2 0.0 - 0.4 x10(3)/[facility] Basophil % 0.3 % [facility] Baso Absolute 0.0 0.0 - 0.1 x10(3)/ L [facility] Immature Gran % 2.60 % [facility] Comment: Immature granulocytes(IG's)percentage and absolute count will include metamyelocytes, myelocytes, and promyelocytes. Blood smears from CBCs yielding IG's will be scanned manually for concordance. If this scan disagrees with the automated IG or if promyelocytes are noted, a manual differential will be performed. Immature Gran Absolute 0.26(H) 0.00 - 0.04 x10(3)/ L [facility] Blood specimen (specimen) 09/19/2017 5:34 AM EDT 09/19/2017 5:59 AM EDT Narrative Resulting Agency Comment Spec In Lab Vera HASSAN HEMATOLOGY ORDERABLE S [facility] [place] [address] * (ABNORMAL) Hemogram (09/19/2017 5:34 AM EDT) White Blood Cell 10.0(H) 4.0 - 9.5 x10(3)/mc L [facility] Red Blood Cell 2.41(L) 4.58 - 5.54 x10(6)/mc L [facility] Hemoglobin 8.0(L) 13.7 - 16.5 gm/dL [facility] Hematocrit 23.4(L) 40.5 - 48.5 % [facility] Mean Cell Volume 97.1(H) 82.9 - 93.1 fL [facility] Mean Cell Hemoglobin 33.2(H) 27.5 - 32.1 pg [facility] Mean Cell Hemoglobin Concentration 34.2 32.0 - 35.7 gm/dL [facility] Platelet 165 145 - 357 x10(3)/mc L [facility] RDW Standard Deviation 56.6(H) 36.0 - 45.0 [facility] RDW coefficient of variation 20.0(H) 11.4 - 13.8 % [facility] Mean Platelet Volume 11.7 7.6 - 12.9 [facility] NRBC% auto 0.3 % [facility] NRBC Absolute 0.030(H) 0.000 - 0.000 x10(3)/mc L [facility] Blood specimen (specimen) 09/19/2017 5:34 AM EDT 09/19/2017 5:59 AM EDT Narrative Resulting Agency Comment Spec In Lab Vera HASSAN HEMATOLOGY ORDERABLE S [facility] [place] [address] * (ABNORMAL) Basic Metabolic Panel (non-fasting) (09/19/2017 5:34 AM EDT) Glucose 101 65 - 199 mg/dL [facility] Comment:Diabetes: >=200 mg/d L plus symptoms Blood Urea Nitrogen 21(H) 10 - 20 mg/dL [facility] Creatinine 0.74(L) 0.80 - 1.50 mg/dL [facility] Sodium 143 135 - 145 mmol/L [facility] Potassium 4.2 3.5 - 5.0 mmol/L [facility] Comment: Please note: ??Patients with WBC >100,000 may have falsely elevated Potassium levels. ??For accurate Potassium quantification in these patients send serum separator tube (gold top) for subsequent determinations. ??Contact the Clinical Chemistry Laboratory if there are any questions. Chloride 113(H) 98 - 107 mmol/L [facility] Carbon Dioxide 19(L) 22 - 31 mmol/L [facility] Anion Gap 11 5 - 15 mmol/L [facility] Calcium 7.9(L) 8.5 - 10.5 mg/dL [facility] Est Glomerular Filtration Rate >60 >=60 [facility] Comment: The reported eGFR should be multiplied by 1.2 for patients. The MDRD is not an appropriate measure of renal function for patients with body mass extremes or in patients with acute kidney failure. http://Phagenesis/DHnkdep http://Phagenesis/DHMCnkf Blood specimen (specimen) 09/19/2017 5:34 AM EDT 09/19/2017 5:59 AM EDT Narrative Resulting Agency Comment Spec In Lab Shilpa Mercedes MD CHEMISTRY ORDERABLES [facility] [place] [address] * (ABNORMAL) Hemoglobin and Hematocrit, blood (09/18/2017 6:45 AM EDT) Hemoglobin 8.3(L) 13.7 - 16.5 gm/dL [facility] Hematocrit 25.5(L) 40.5 - 48.5 % [facility] Blood specimen (specimen) 09/18/2017 6:45 AM EDT 09/18/2017 7:02 AM EDT Narrative Resulting Agency Comment Spec In Lab Bryan aCtrachito Hudson [employer] HEMATOLOGY ORDERABLE S Performing Organization Address [facility]/ZIP Co de Phone Number [facility] [place] [address] * Transfuse RBC (09/18/2017 5:27 AM EDT) Bryan Catrachito Hudson [employer] NURSING TREATMENT OR DERABLES - BLOOD ADMIN * Transfuse RBC (09/18/2017 5:27 AM EDT) Bryan H Young [employer] NURSING TREATMENT OR DERABLES - BLOOD ADMIN * Prepare RBC (09/18/2017 3:00 AM EDT) Dispensed? Yes [facility] Blood specimen (specimen) 09/18/2017 3:00 AM EDT 09/18/2017 3:00 AM EDT Narrative Resulting Agency Comment Spec In Lab Bryan Hudson [employer] BLOOD BANK PRODUCT O RDERABLES Performing Organization Address City/[facility]/ZIP Co de Phone Number [facility] [place] [address] * (ABNORMAL) Differential, Automated (09/18/2017 1:48 AM EDT) Neutrophil % 68.3 % [facility] Neutrophil Absolute 7.21(H) 1.70 - 6.10 x10(3)/mc L [facility] Lymph % 15.0 % [facility] Lymphocytes Abs 1.6 0.9 - 3.2 x10(3)/mc L [facility] Monocyte % 12.5 % [facility] Monocyte Abs 1.3(H) 0.3 - 0.9 x10(3)/mc L [facility] Eos % 1.6 % [facility] Eosinophils Abs 0.2 0.0 - 0.4 x10(3)/mc L [facility] Basophil % 0.1 % [facility] Baso Absolute 0.0 0.0 - 0.1 x10(3)/[facility] Immature Gran % 2.50 % [facility] Comment: Immature granulocytes(IG's)percentage and absolute count will include metamyelocytes, myelocytes, and promyelocytes. Blood smears from CBCs yielding IG's will be scanned manually for concordance. If this scan disagrees with the automated IG or if promyelocytes are noted, a manual differential will be performed. Immature Gran Absolute 0.26(H) 0.00 - 0.04 x10(3)/[facility] Blood specimen (specimen) 09/18/2017 1:48 AM EDT 09/18/2017 2:18 AM EDT Narrative Resulting Agency Comment Spec In Lab Vera HASSAN HEMATOLOGY ORDERABLE S [facility] [place] [address] * (ABNORMAL) Hemogram (09/18/2017 1:48 AM EDT) White Blood Cell 10.6(H) 4.0 - 9.5 x10(3)/[facility] Red Blood Cell 2.17(L) 4.58 - 5.54 x10(6)/[facility] Hemoglobin 6.9(L) 13.7 - 16.5 gm/dL [facility] Hematocrit 21.1(L) 40.5 - 48.5 % [facility] Mean Cell Volume 97.2(H) 82.9 - 93.1 fL [facility] Mean Cell Hemoglobin 31.8 27.5 - 32.1 pg [facility] Mean Cell Hemoglobin Concentration 32.7 32.0 - 35.7 gm/dL [facility] Platelet 132(L) 145 - 357 x10(3)/[facility] RDW Standard Deviation 57.9(H) 36.0 - 45.0 fL [facility] RDW coefficient of variation 21.2(H) 11.4 - 13.8 % [facility] Mean Platelet Volume 11.7 7.6 - 12.9 fL [facility] NRBC% auto 0.5 % [facility] NRBC Absolute 0.050(H) 0.000 - 0.000 x10(3)/mc L [facility] Blood specimen (specimen) 09/18/2017 1:48 AM EDT 09/18/2017 2:18 AM EDT Narrative Resulting Agency Comment Spec In Lab Vera HASSAN HEMATOLOGY ORDERABLE S [facility] [place] [address] * (ABNORMAL) Basic Metabolic Panel (non-fasting) (09/18/2017 1:48 AM EDT) Glucose 108 65 - 199 mg/dL [facility] Comment:Diabetes: >=200 mg/d L plus symptoms Blood Urea Nitrogen 33(H) 10 - 20 mg/dL [facility] Creatinine 0.71(L) 0.80 - 1.50 mg/dL [facility] Sodium 140 135 - 145 mmol/L [facility] Potassium 4.8 3.5 - 5.0 mmol/L [facility] Comment: Please note: ??Patients with WBC >100,000 may have falsely elevated Potassium levels. ??For accurate Potassium quantification in these patients send serum separator tube (gold top) for subsequent determinations. ??Contact the Clinical Chemistry Laboratory if there are any questions. Chloride 110(H) 98 - 107 mmol/L [facility] Carbon Dioxide 20(L) 22 - 31 mmol/L [facility] Anion Gap 10 5 - 15 mmol/L [facility] Calcium 8.3(L) 8.5 - 10.5 mg/dL [facility] Est Glomerular Filtration Rate >60 >=60 [facility] Comment: The reported eGFR should be multiplied by 1.2 for patients. The MDRD is not an appropriate measure of renal function for patients with body mass extremes or in patients with acute kidney failure. http://Phagenesis/DHnkdep http://Phagenesis/DHMCnkf Blood specimen (specimen) 09/18/2017 1:48 AM EDT 09/18/2017 2:18 AM EDT Narrative Resulting Agency Comment Spec In Lab Shilpa Mercedes MD CHEMISTRY ORDERABLES Performing Organization Address [facility] Co de Phone Number [facility] [place] [address] * (ABNORMAL) Hemoglobin and Hematocrit, blood (09/17/2017 11:48 PM EDT) Hemoglobin 7.3(L) 13.7 - 16.5 gm/dL [facility] Hematocrit 23.6(L) 40.5 - 48.5 % [facility] Blood specimen (specimen) 09/17/2017 11:48 PM EDT 09/17/2017 11:59 PM EDT Narrative Resulting Agency Comment Spec In Lab Bryan Hudson APRN HEMATOLOGY ORDERABLE S Performing Organization Address [facility] Co de Phone Number [facility] [place] [address] * POCT Glucose (09/17/2017 11:46 AM EDT) Glucose, POC 108 65 - 199 mg/dL [facility] Comment: Supplemental ranges: <140 mg/dL before meals <180 mg/dL all other times of the day Blood specimen (specimen) 09/17/2017 11:46 AM EDT 09/17/2017 11:46 AM EDT El Connors MD POINT OF CARE TEST O RDERABLES Performing Organization Address [facility] Co de Phone Number [facility] [place] [address] * POCT Glucose (09/17/2017 6:59 AM EDT) Glucose, POC 140 65 - 199 mg/dL [facility] Comment: Supplemental ranges: <140 mg/dL before meals <180 mg/dL all other times of the day Blood specimen (specimen) 09/17/2017 6:59 AM EDT 09/17/2017 6:59 AM EDT Yao Klein MD POINT OF CARE TEST O POLINA Performing Organization Address [facility] de Phone Number [facility] [place] [address] * Hemoglobin A1c (09/17/2017 4:50 AM EDT) [facility] Hemoglobin A1c 5.1 4.3 - 5.6 % [facility] Comment: Reference Range: 4.3 - [...] Mellitus, Diabetes Care 2013; 36: Suppl. 1, S67-38 Estimated Average Glucose 100 mg/dL [facility] Comment: eAG equivalents for HbA1c [...] into estimated average glucose values. ??Diabetes Care 2008:31(8):7806-8102. Blood specimen (specimen) Venous Draw / Unknown 09/17/2017 4:50 AM EDT 09/17/2017 1:19 PM EDT Narrative Resulting Agency Comment Spec In Lab El Connors MD CHEMISTRY ORDERABLES Performing Organization Address [facility] Co de Phone Number [facility] [place] [address] * (ABNORMAL) Differential, Automated (09/17/2017 4:50 AM EDT) Neutrophil % 70.5 % [facility] Neutrophil Absolute 7.81(H) 1.70 - 6.10 x10(3)/mc L [facility] Lymph % 15.4 % [facility] Lymphocytes Abs 1.7 0.9 - 3.2 x10(3)/mc L [facility] Monocyte % 9.7 % [facility] Monocyte Abs 1.1(H) 0.3 - 0.9 x10(3)/mc L [facility] Eos % 1.8 % [facility] Eosinophils Abs 0.2 0.0 - 0.4 x10(3)/mc L [facility] Basophil % 0.2 % [facility] Baso Absolute 0.0 0.0 - 0.1 x10(3)/mc L [facility] Immature Gran % 2.40 % [facility] Comment: Immature granulocytes(IG's)percentage and absolute count will include metamyelocytes, myelocytes, and promyelocytes. Blood smears from CBCs yielding IG's will be scanned manually for concordance. If this scan disagrees with the automated IG or if promyelocytes are noted, a manual differential will be performed. Immature Gran Absolute 0.27(H) 0.00 - 0.04 x10(3)/ L [facility] Blood specimen (specimen) 09/17/2017 4:50 AM EDT 09/17/2017 4:56 AM EDT Narrative Resulting Agency Comment Spec In Lab Vera HASSAN HEMATOLOGY ORDERABLE S [facility] [place] [address] * (ABNORMAL) Hemogram (09/17/2017 4:50 AM EDT) White Blood Cell 11.1(H) 4.0 - 9.5 x10(3)/ L [facility] Red Blood Cell 2.99(L) 4.58 - 5.54 x10(6)/mc L [facility] Hemoglobin 8.9(L) 13.7 - 16.5 gm/dL [facility] Hematocrit 28.4(L) 40.5 - 48.5 % [facility] Mean Cell Volume 95.0(H) 82.9 - 93.1 fL [facility] Mean Cell Hemoglobin 29.8 27.5 - 32.1 pg [facility] Mean Cell Hemoglobin Concentration 31.3(L) 32.0 - 35.7 gm/dL [facility] Platelet 138(L) 145 - 357 x10(3)/mc L [facility] RDW Standard Deviation 55.2(H) 36.0 - 45.0 fL [facility] RDW coefficient of variation 20.8(H) 11.4 - 13.8 % [facility] Mean Platelet Volume 11.4 7.6 - 12.9 fL [facility] NRBC% auto 0.9 % [facility] NRBC Absolute 0.100(H) 0.000 - 0.000 x10(3)/mc L [facility] Blood specimen (specimen) 09/17/2017 4:50 AM EDT 09/17/2017 4:56 AM EDT Narrative Resulting Agency Comment Spec In Lab Vera HASSAN HEMATOLOGY ORDERABLE S [facility] [place] [address] * (ABNORMAL) Basic Metabolic Panel (non-fasting) (09/17/2017 4:50 AM EDT) Glucose 81 65 - 199 mg/dL [facility] Comment:Diabetes: >=200 mg/d L plus symptoms Blood Urea Nitrogen 29(H) 10 - 20 mg/dL [facility] Creatinine 0.78(L) 0.80 - 1.50 mg/dL [facility] Sodium 142 135 - 145 mmol/L [facility] Potassium 4.6 3.5 - 5.0 mmol/L [facility] Comment: Please note: ??Patients with WBC >100,000 may have falsely elevated Potassium levels. ??For accurate Potassium quantification in these patients send serum separator tube (gold top) for subsequent determinations. ??Contact the Clinical Chemistry Laboratory if there are any questions. Chloride 111(H) 98 - 107 mmol/L [facility] Carbon Dioxide 19(L) 22 - 31 mmol/L [facility] Anion Gap 12 5 - 15 mmol/L [facility] Calcium 8.0(L) 8.5 - 10.5 mg/dL [facility] Est Glomerular Filtration Rate >60 >=60 [facility] Comment: The reported eGFR should be multiplied by 1.2 for patients. The MDRD is not an appropriate measure of renal function for patients with body mass extremes or in patients with acute kidney failure. http://Comixology.eBioscience/DHnkdep http://Comixology.com/DHMCnkf Blood specimen (specimen) 09/17/2017 4:50 AM EDT 09/17/2017 4:56 AM EDT Narrative Resulting Agency Comment Spec In Lab Shilpa Mercedes MD CHEMISTRY ORDERABLES Performing Organization Address [facility]/ZIP Co de Phone Number [facility] [place] [address] * POCT Glucose (09/16/2017 8:43 PM EDT) [facility] Glucose, POC 109 65 - 199 mg/dL [facility] Comment: Supplemental ranges: <140 mg/dL before meals <180 mg/dL all other times of the day Blood specimen (specimen) 09/16/2017 8:43 PM EDT 09/16/2017 8:43 PM EDT Yao Klein MD POINT OF CARE TEST O RDERABLES Performing Organization Address [facility] Co de Phone Number [facility] [place] [address] * ABORH Recheck Status (09/16/2017 4:35 PM EDT) [facility] ABORH Type Recheck Completed [facility] Blood specimen (specimen) Venous Draw / Unknown 09/16/2017 4:35 PM EDT 09/16/2017 5:07 PM EDT Narrative Resulting Agency Comment Spec In Lab Karyn Yost APRN BLOOD BANK LAB ORDER CORDELIA Performing Organization Address [facility] Co de Phone Number [facility] [place] [address] * Selected Cell Screen (09/16/2017 4:35 PM EDT) [facility] Ab Screen Interp Previously identified Anti-K & Anti-M. No additional alloantibodies detected.* *Due to the presence of alloantibody(ies) additional time is required for preparation of Red Cell Products. See initial antibody identification report for additional information. [facility] Blood specimen (specimen) Venous Draw / Unknown 09/16/2017 4:35 PM EDT 09/16/2017 5:07 PM EDT Narrative Resulting Agency Comment Spec In Lab Karyn Yost LIN[employer] BLOOD BANK LAB ORDER CORDELIA [facility] [place] [address] * ABORh Type Manual (09/16/2017 4:35 PM EDT) Expires at [id number] on: 09/19/2017 [facility] ABORH Type O Pos [facility] Blood specimen (specimen) Venous Draw / Unknown 09/16/2017 4:35 PM EDT 09/16/2017 5:07 PM EDT Narrative Resulting Agency Comment Spec In Lab Karyn Yost [employer] BLOOD BANK LAB ORDER CORDELIA Performing Organization Address City/[facility]/ZIP Co de Phone Number [facility] [place] [address] * POCT Glucose (09/16/2017 4:35 PM EDT) Glucose, POC 92 65 - 199 mg/dL [facility] Comment: Supplemental ranges: <140 mg/dL before meals <180 mg/dL all other times of the day Blood specimen (specimen) 09/16/2017 4:35 PM EDT 09/16/2017 4:35 PM EDT Yao Klein MD POINT OF CARE TEST O RDERABLES [facility] [place] [address] * POCT Glucose (09/16/2017 2:57 PM EDT) Glucose, POC 163 65 - 199 mg/dL [facility] Comment: Supplemental ranges: <140 mg/dL before meals <180 mg/dL all other times of the day Blood specimen (specimen) 09/16/2017 2:57 PM EDT 09/16/2017 2:57 PM EDT Yao Klein MD POINT OF CARE TEST O POLINA [facility] [place] [address] * POCT Glucose (09/16/2017 2:09 PM EDT) Glucose, POC 66 65 - 199 mg/dL [facility] Comment: Supplemental ranges: <140 mg/dL before meals <180 mg/dL all other times of the day Blood specimen (specimen) 09/16/2017 2:09 PM EDT 09/16/2017 2:09 PM EDT Yao Klein MD POINT OF CARE TEST O POLINA Performing Organization Address City/[facility]/ZIP Co de Phone Number [facility] [place] [address] * POCT Glucose (09/16/2017 11:44 AM EDT) Glucose, POC 171 65 - 199 mg/dL [facility] Comment: Supplemental ranges: <140 mg/dL before meals <180 mg/dL all other times of the day Blood specimen (specimen) 09/16/2017 11:44 AM EDT 09/16/2017 11:44 AM EDT Yao Klein MD POINT OF CARE TEST O POLINA Performing Organization Address City/[facility]/ZIP Co de Phone Number [facility] [place] [address] * (ABNORMAL) POCT Glucose (09/16/2017 11:05 AM EDT) Glucose, POC 64(L) 65 - 199 mg/dL [facility] Comment: Supplemental ranges: <140 mg/dL before meals <180 mg/dL all other times of the day Blood specimen (specimen) 09/16/2017 11:05 AM EDT 09/16/2017 11:05 AM EDT Yao Klein MD POINT OF CARE TEST O VLADERADELORES Performing Organization Address City/[facility]/ZIP Co de Phone Number [facility] [place] [address] * POCT Glucose (09/16/2017 7:39 AM EDT) Glucose, POC 153 65 - 199 mg/dL [facility] Comment: Supplemental ranges: <140 mg/dL before meals <180 mg/dL all other times of the day Blood specimen (specimen) 09/16/2017 7:39 AM EDT 09/16/2017 7:39 AM EDT Yao Klein MD POINT OF CARE TEST O POLINA Performing Organization Address City/[facility]/ZIP Co de Phone Number [facility] [place] [address] * (ABNORMAL) Differential, Automated (09/16/2017 1:15 AM EDT) Neutrophil % 69.8 % [facility] Neutrophil Absolute 7.66(H) 1.70 - 6.10 x10(3)/mc L [facility] Lymph % 14.1 % [facility] Lymphocytes Abs 1.6 0.9 - 3.2 x10(3)/mc L [facility] Monocyte % 12.8 % [facility] Monocyte Abs 1.4(H) 0.3 - 0.9 x10(3)/mc L [facility] Eos % 1.4 % [facility] Eosinophils Abs 0.2 0.0 - 0.4 x10(3)/mc L [facility] Basophil % 0.1 % [facility] Baso Absolute 0.0 0.0 - 0.1 x10(3)/ L [facility] Immature Gran % 1.80 % [facility] Comment: Immature granulocytes(IG's)percentage and absolute count will include metamyelocytes, myelocytes, and promyelocytes. Blood smears from CBCs yielding IG's will be scanned manually for concordance. If this scan disagrees with the automated IG or if promyelocytes are noted, a manual differential will be performed. Immature Gran Absolute 0.20(H) 0.00 - 0.04 x10(3)/ L [facility] Blood specimen (specimen) 09/16/2017 1:15 AM EDT 09/16/2017 1:25 AM EDT Narrative Resulting Agency Comment Spec In Lab Vera HASSAN HEMATOLOGY ORDERABLE S Performing Organization Address City/State/[facility] Co de Phone Number [facility] [place] [address] * (ABNORMAL) Hemogram (09/16/2017 1:15 AM EDT) White Blood Cell 11.0(H) 4.0 - 9.5 x10(3)/ L [facility] Red Blood Cell 2.84(L) 4.58 - 5.54 x10(6)/ L [facility] Hemoglobin 8.6(L) 13.7 - 16.5 gm/dL [facility] Hematocrit 26.7(L) 40.5 - 48.5 % [facility] Mean Cell Volume 94.0(H) 82.9 - 93.1 fL [facility] Mean Cell Hemoglobin 30.3 27.5 - 32.1 pg [facility] Mean Cell Hemoglobin Concentration 32.2 32.0 - 35.7 gm/dL [facility] Platelet 121(L) 145 - 357 x10(3)/ L [facility] RDW Standard Deviation 53.5(H) 36.0 - 45.0 fL [facility] RDW coefficient of variation 19.6(H) 11.4 - 13.8 % [facility] Mean Platelet Volume 11.4 7.6 - 12.9 fL [facility] NRBC% auto 1.5 % [facility] NRBC Absolute 0.160(H) 0.000 - 0.000 x10(3)/mc L [facility] Blood specimen (specimen) 09/16/2017 1:15 AM EDT 09/16/2017 1:25 AM EDT Narrative Resulting Agency Comment Spec In Lab Vera HASSAN HEMATOLOGY ORDERABLE S [facility] [place] [address] * (ABNORMAL) Basic Metabolic Panel (non-fasting) (09/16/2017 1:15 AM EDT) Glucose 101 65 - 199 mg/dL [facility] Comment:Diabetes: >=200 mg/d L plus symptoms Blood Urea Nitrogen 44(H) 10 - 20 mg/dL [facility] Creatinine 0.90 0.80 - 1.50 mg/dL [facility] Sodium 142 135 - 145 mmol/L [facility] Potassium 4.2 3.5 - 5.0 mmol/L [facility] Comment: Please note: ??Patients with WBC >100,000 may have falsely elevated Potassium levels. ??For accurate Potassium quantification in these patients send serum separator tube (gold top) for subsequent determinations. ??Contact the Clinical Chemistry Laboratory if there are any questions. Chloride 111(H) 98 - 107 mmol/L [facility] Carbon Dioxide 23 22 - 31 mmol/L [facility] Anion Gap 8 5 - 15 mmol/L [facility] Calcium 8.2(L) 8.5 - 10.5 mg/dL [facility] Est Glomerular Filtration Rate >60 >=60 [facility] Comment: The reported eGFR should be multiplied by 1.2 for patients. The MDRD is not an appropriate measure of renal function for patients with body mass extremes or in patients with acute kidney failure. http://Phagenesis/DHnkdep http://Phagenesis/DHMCnkf Blood specimen (specimen) 09/16/2017 1:15 AM EDT 09/16/2017 1:25 AM EDT Narrative Resulting Agency Comment Spec In Lab Shilpa Mercedes MD CHEMISTRY ORDERABLES Performing Organization Address City/[facility]/ZIP Co de Phone Number [facility] [place] [place] [address] * POCT Glucose (09/15/2017 3:37 PM EDT) Glucose, POC 105 65 - 199 mg/dL [facility] Comment: Supplemental ranges: <140 mg/dL before meals <180 mg/dL all other times of the day Blood specimen (specimen) 09/15/2017 3:37 PM EDT 09/15/2017 3:37 PM EDT Yao Klein MD POINT OF CARE TEST O RDERABLES Performing Organization Address [facility]/ZIP Co de Phone Number [facility] [place] [address] * POCT Glucose (09/15/2017 7:14 AM EDT) Glucose, POC 107 65 - 199 mg/dL [facility] Comment: Supplemental ranges: <140 mg/dL before meals <180 mg/dL all other times of the day Blood specimen (specimen) 09/15/2017 7:14 AM EDT 09/15/2017 7:14 AM EDT Shilpa Mercedes MD POINT OF CARE TEST O RDERABLES Performing Organization Address City/[facility]/ZIP Co de Phone Number [facility] [place] [address] * (ABNORMAL) Hemogram (09/15/2017 6:10 AM EDT) White Blood Cell 13.1(H) 4.0 - 9.5 x10(3)/mc L [facility] Red Blood Cell 2.77(L) 4.58 - 5.54 x10(6)/mc L [facility] Hemoglobin 8.4(L) 13.7 - 16.5 gm/dL [facility] Hematocrit 25.6(L) 40.5 - 48.5 % [facility] Mean Cell Volume 92.4 82.9 - 93.1 fL [facility] Mean Cell Hemoglobin 30.3 27.5 - 32.1 pg [facility] Mean Cell Hemoglobin Concentration 32.8 32.0 - 35.7 gm/dL [facility] Platelet 126(L) 145 - 357 x10(3)/mc L [facility] RDW Standard Deviation 51.4(H) 36.0 - 45.0 [facility] RDW coefficient of variation 17.7(H) 11.4 - 13.8 % [facility] Mean Platelet Volume 11.1 7.6 - 12.9 [facility] NRBC% auto 1.4 % [facility] NRBC Absolute 0.190(H) 0.000 - 0.000 x10(3)/mc L [facility] Blood specimen (specimen) 09/15/2017 6:10 AM EDT 09/15/2017 6:29 AM EDT Narrative Resulting Agency Comment Spec In Lab Jennifer Kim APRN HEMATOLOGY ORDERABLE S [facility] [place] [address] * Scan, Peripheral Blood (09/15/2017 3:23 AM EDT) Pathologist [facility] Plat estimate Decreased [facility] RBC Morphology Abnormal [facility] Macrocyte 1-5 /HPF [facility] Polychromasia Present >5/HPF [facility] Ovalocytes 1-5 /HPF [facility] Blood specimen (specimen) 09/15/2017 3:23 AM EDT 09/15/2017 3:30 AM EDT Narrative Resulting Agency Comment Spec In Lab Vera HASSAN HEMATOLOGY ORDERABLE S [facility] [place] [address] * (ABNORMAL) Differential, Automated (09/15/2017 3:23 AM EDT) Neutrophil % 76.2 % [facility] Neutrophil Absolute 9.84(H) 1.70 - 6.10 x10(3)/mc L [facility] Lymph % 9.8 % [facility] Lymphocytes Abs 1.3 0.9 - 3.2 x10(3)/mc L [facility] Monocyte % 12.0 % [facility] Monocyte Abs 1.6(H) 0.3 - 0.9 x10(3)/mc L [facility] Eos % 0.1 % [facility] Eosinophils Abs 0.0 0.0 - 0.4 x10(3)/mc L [facility] Basophil % 0.1 % [facility] Baso Absolute 0.0 0.0 - 0.1 x10(3)/mc L [facility] Immature Gran % 1.80 % [facility] Comment: Immature granulocytes(IG's)percentage and absolute count will include metamyelocytes, myelocytes, and promyelocytes. Blood smears from CBCs yielding IG's will be scanned manually for concordance. If this scan disagrees with the automated IG or if promyelocytes are noted, a manual differential will be performed. Immature Gran Absolute 0.23(H) 0.00 - 0.04 x10(3)/mc L [facility] Blood specimen (specimen) 09/15/2017 3:23 AM EDT 09/15/2017 3:30 AM EDT Narrative Resulting Agency Comment Spec In Lab Vera S Diana HASSAN HEMATOLOGY ORDERABLE S [facility] [place] [address] * (ABNORMAL) Hemogram (09/15/2017 3:23 AM EDT) White Blood Cell 12.9(H) 4.0 - 9.5 x10(3)/[facility] Red Blood Cell 2.69(L) 4.58 - 5.54 x10(6)/[facility] Hemoglobin 8.2(L) 13.7 - 16.5 gm/dL [facility] Hematocrit 24.9(L) 40.5 - 48.5 % [facility] Mean Cell Volume 92.6 82.9 - 93.1 fL [facility] Mean Cell Hemoglobin 30.5 27.5 - 32.1 pg [facility] Mean Cell Hemoglobin Concentration 32.9 32.0 - 35.7 gm/dL [facility] Platelet 121(L) 145 - 357 x10(3)/[facility] RDW Standard Deviation 52.1(H) 36.0 - 45.0 [facility] RDW coefficient of variation 18.2(H) 11.4 - 13.8 % [facility] Mean Platelet Volume 10.9 7.6 - 12.9 [facility] NRBC% auto 1.4 % [facility] NRBC Absolute 0.180(H) 0.000 - 0.000 x10(3)/ L [facility] Blood specimen (specimen) 09/15/2017 3:23 AM EDT 09/15/2017 3:30 AM EDT Narrative Resulting Agency Comment Spec In Lab Vera HASSAN HEMATOLOGY ORDERABLE S Performing Organization Address City/State/[facility] Co de Phone Number [facility] [place] [address] * (ABNORMAL) Basic Metabolic Panel (non-fasting) (09/15/2017 3:23 AM EDT) Glucose 87 65 - 199 mg/dL [facility] Comment:Diabetes: >=200 mg/d L plus symptoms Blood Urea Nitrogen 58(H) 10 - 20 mg/dL [facility] Creatinine 1.05 0.80 - 1.50 mg/dL [facility] Sodium 146(H) 135 - 145 mmol/L [facility] Potassium 4.0 3.5 - 5.0 mmol/L [facility] Comment: Please note: ??Patients with WBC >100,000 may have falsely elevated Potassium levels. ??For accurate Potassium quantification in these patients send serum separator tube (gold top) for subsequent determinations. ??Contact the Clinical Chemistry Laboratory if there are any questions. Chloride 113(H) 98 - 107 mmol/L [facility] Carbon Dioxide 22 22 - 31 mmol/L [facility] Anion Gap 11 5 - 15 mmol/L [facility] Calcium 7.5(L) 8.5 - 10.5 mg/dL [facility] Est Glomerular Filtration Rate >60 >=60 [facility] Comment: The reported eGFR should be multiplied by 1.2 for patients. The MDRD is not an appropriate measure of renal function for patients with body mass extremes or in patients with acute kidney failure. http://Comixology.eBioscience/DHnkdep http://Comixology.com/DHMCnkf Blood specimen (specimen) 09/15/2017 3:23 AM EDT 09/15/2017 3:30 AM EDT Narrative Resulting Agency Comment Spec In Lab Shilpa Mercedes MD CHEMISTRY ORDERABLES [facility] [place] [address] * POCT Glucose (09/15/2017 3:22 AM EDT) Glucose, POC 112 65 - 199 mg/dL [facility] Comment: Supplemental ranges: <140 mg/dL before meals <180 mg/dL all other times of the day Blood specimen (specimen) 09/15/2017 3:22 AM EDT 09/15/2017 3:22 AM EDT Shilpa Mercedes MD POINT OF CARE TEST O RDERABLES Performing Organization Address [facility] Co de Phone Number [facility] [place] [address] * POCT Glucose (09/15/2017 12:20 AM EDT) Glucose, POC 196 65 - 199 mg/dL [facility] Comment: Supplemental ranges: <140 mg/dL before meals <180 mg/dL all other times of the day Blood specimen (specimen) 09/15/2017 12:20 AM EDT 09/15/2017 12:20 AM EDT Shilpa Mercedes MD POINT OF CARE TEST O RDERABLES Performing Organization Address [facility]/ZIP Co de Phone Number [facility] [place] [address] * (ABNORMAL) Hemogram (09/14/2017 8:07 PM EDT) White Blood Cell 16.0(H) 4.0 - 9.5 x10(3)/mc L [facility] Red Blood Cell 2.98(L) 4.58 - 5.54 x10(6)/mc L [facility] Hemoglobin 9.0(L) 13.7 - 16.5 gm/dL [facility] Hematocrit 27.0(L) 40.5 - 48.5 % [facility] Mean Cell Volume 90.6 82.9 - 93.1 fL [facility] Mean Cell Hemoglobin 30.2 27.5 - 32.1 pg [facility] Mean Cell Hemoglobin Concentration 33.3 32.0 - 35.7 gm/dL [facility] Platelet 137(L) 145 - 357 x10(3)/mc L [facility] RDW Standard Deviation 49.3(H) 36.0 - 45.0 fL [facility] RDW coefficient of variation 17.5(H) 11.4 - 13.8 % [facility] Mean Platelet Volume 10.8 7.6 - 12.9 [facility] NRBC% auto 1.4 % [facility] NRBC Absolute 0.230(H) 0.000 - 0.000 x10(3)/mc L [facility] Blood specimen (specimen) 09/14/2017 8:07 PM EDT 09/14/2017 8:10 PM EDT Narrative Resulting Agency Comment Spec In Lab Shilpa Mercedes MD HEMATOLOGY ORDERABLE S [facility] [place] [address] * POCT Glucose (09/14/2017 7:25 PM EDT) Glucose, POC 122 65 - 199 mg/dL [facility] Comment: Supplemental ranges: <140 mg/dL before meals <180 mg/dL all other times of the day Blood specimen (specimen) 09/14/2017 7:25 PM EDT 09/14/2017 7:25 PM EDT Shilpa Mercedes MD POINT OF CARE TEST O RDERABLES [facility] [place] [address] * POCT Glucose (09/14/2017 3:59 PM EDT) Glucose, POC 165 65 - 199 mg/dL [facility] Comment: Supplemental ranges: <140 mg/dL before meals <180 mg/dL all other times of the day Blood specimen (specimen) 09/14/2017 3:59 PM EDT 09/14/2017 3:59 PM EDT Zack Hood MD POINT OF CARE TEST O RDERABLES [facility] [place] [address] * US Abdomen Vascular Limited (09/14/2017 1:31 [...] 01:52 pm) PATIENT INFO: ID #: ? [id number] ? : 50 (67 yrs) Name: ? NAIN KANG ?Visit Date:09/14/2017 12:57 pm PERFORMED BY: Performed By: ? Prasanna GRACE, ??Skylar Attending: ?Staci Russell MD Referred By: ?[facility] Location: ? [place] SERVICE(S) PROVIDED: ??UABDLIMVAS - Abdominal Limited Survey 2 Organ ? [id number] ??Quadrant with Vascular - [id number] INDICATIONS: ??F/U post EGD for GI bleed [...] 09/14/2017 01:52 pm) PATIENT INFO: ID #: [id number] : 50 (67 yrs) Name: NAIN KANG Visit Date:09/14/2017 12:57 pm PERFORMED BY: Performed By: Skylar Mims RDMS Attending: Staci Russell MD Referred By: ZACK HOOD Location: [place] SERVICE(S) PROVIDED: UABDLIMVAS - Abdominal Limited Survey 2 Organ [id number], [id number] Quadrant with Vascular - [id number] INDICATIONS: F/U post EGD for GI bleed [...] POCT Glucose (09/14/2017 12:05 PM EDT) Pathologist [facility] Glucose, POC 133 65 - 199 mg/dL [facility] Comment: Supplemental ranges: <140 mg/dL before meals <180 mg/dL all other times of the day Blood specimen (specimen) 09/14/2017 12:05 PM EDT 09/14/2017 12:05 PM EDT Zack Hood MD POINT OF CARE TEST O RDERABLES [facility] [place] [address] * (ABNORMAL) Hemogram (09/14/2017 7:50 AM EDT) White Blood Cell 11.7(H) 4.0 - 9.5 x10(3)/mc L [facility] Red Blood Cell 3.40(L) 4.58 - 5.54 x10(6)/mc L [facility] Hemoglobin 10.2(L) 13.7 - 16.5 gm/dL [facility] Hematocrit 30.3(L) 40.5 - 48.5 % [facility] Mean Cell Volume 89.1 82.9 - 93.1 fL [facility] Mean Cell Hemoglobin 30.0 27.5 - 32.1 pg [facility] Mean Cell Hemoglobin Concentration 33.7 32.0 - 35.7 gm/dL [facility] Platelet 141(L) 145 - 357 x10(3)/mc L [facility] RDW Standard Deviation 48.1(H) 36.0 - 45.0 fL [facility] RDW coefficient of variation 16.6(H) 11.4 - 13.8 % [facility] Mean Platelet Volume 10.7 7.6 - 12.9 fL [facility] NRBC% auto 0.9 % [facility] NRBC Absolute 0.100(H) 0.000 - 0.000 x10(3)/mc L [facility] Blood specimen (specimen) 09/14/2017 7:50 AM EDT 09/14/2017 7:51 AM EDT Narrative Resulting Agency Comment Spec In Lab Zack Hood MD HEMATOLOGY ORDERABLE S [facility] [place] [address] * POCT Glucose (09/14/2017 7:38 AM EDT) Glucose, POC 156 65 - 199 mg/dL [facility] Comment: Supplemental ranges: <140 mg/dL before meals <180 mg/dL all other times of the day Blood specimen (specimen) 09/14/2017 7:38 AM EDT 09/14/2017 7:38 AM EDT Zack Hood MD POINT OF CARE TEST O RDERADELORES Performing Organization Address City/[facility]/ZIP Co de Phone Number [facility] [place] [address] * POCT Glucose (09/14/2017 4:17 AM EDT) Glucose, POC 180 65 - 199 mg/dL [facility] Comment: Supplemental ranges: <140 mg/dL before meals <180 mg/dL all other times of the day Blood specimen (specimen) 09/14/2017 4:17 AM EDT 09/14/2017 4:17 AM EDT Zack Hood MD POINT OF CARE TEST O POLINA Performing Organization Address City/[facility]/ZIP Co de Phone Number [facility] [place] [address] * (ABNORMAL) Hemogram (09/14/2017 4:12 AM EDT) White Blood Cell 12.5(H) 4.0 - 9.5 x10(3)/mc L [facility] Red Blood Cell 3.41(L) 4.58 - 5.54 x10(6)/mc L [facility] Hemoglobin 10.2(L) 13.7 - 16.5 gm/dL [facility] Hematocrit 30.6(L) 40.5 - 48.5 % [facility] Mean Cell Volume 89.7 82.9 - 93.1 fL [facility] Mean Cell Hemoglobin 29.9 27.5 - 32.1 pg [facility] Mean Cell Hemoglobin Concentration 33.3 32.0 - 35.7 gm/dL [facility] Platelet 143(L) 145 - 357 x10(3)/mc L [facility] RDW Standard Deviation 48.8(H) 36.0 - 45.0 fL [facility] RDW coefficient of variation 17.7(H) 11.4 - 13.8 % [facility] Mean Platelet Volume 10.8 7.6 - 12.9 [facility] NRBC% auto 0.3 % [facility] NRBC Absolute 0.040(H) 0.000 - 0.000 x10(3)/mc L [facility] Blood specimen (specimen) 09/14/2017 4:12 AM EDT 09/14/2017 4:19 AM EDT Narrative Resulting Agency Comment Spec In Lab Zack Hood MD HEMATOLOGY ORDERABLE S [facility] [place] [id number] * Transfuse RBC (09/14/2017 1:27 AM EDT) Zack Hood MD NURSING TREATMENT OR DERABLES - BLOOD ADMIN * Transfuse RBC (09/14/2017 1:27 AM EDT) Zack Hood MD NURSING TREATMENT OR DERABLES - BLOOD ADMIN * Phosphorus (09/14/2017 1:23 AM EDT) Phosphorus 4.2 2.5 - 4.5 mg/dL [facility] Blood specimen (specimen) Venous Draw / Unknown 09/14/2017 1:23 AM EDT 09/14/2017 1:41 AM EDT Narrative Resulting Agency Comment Spec In Lab Mila HASSAN CHEMISTRY ORDERABLES [facility] [place] [address] * (ABNORMAL) Magnesium (09/14/2017 1:23 AM EDT) Pathologist [facility] Magnesium 1.15(H) 0.69 - 1.07 mmol/L [facility] Blood specimen (specimen) Venous Draw / Unknown 09/14/2017 1:23 AM EDT 09/14/2017 1:41 AM EDT Narrative Resulting Agency Comment Spec In Lab Mila HASSAN CHEMISTRY ORDERABLES Performing Organization Address [facility]/ZIP Co de Phone Number [facility] [place] [address] * (ABNORMAL) Differential, Automated (09/14/2017 1:23 AM EDT) [facility] Neutrophil % 93.5 % [facility] Neutrophil Absolute 11.69(H) 1.70 - 6.10 x10(3)/mc L [facility] Lymph % 3.6 % [facility] Lymphocytes Abs 0.4(L) 0.9 - 3.2 x10(3)/mc L [facility] Monocyte % 1.1 % [facility] Monocyte Abs 0.1(L) 0.3 - 0.9 x10(3)/mc L [facility] Eos % 0.0 % [facility] Eosinophils Abs 0.0 0.0 - 0.4 x10(3)/mc L [facility] Basophil % 0.2 % [facility] Baso Absolute 0.0 0.0 - 0.1 x10(3)/mc L [facility] Immature Gran % 1.60 % [facility] Comment: Immature granulocytes(IG's)percentage and absolute count will include metamyelocytes, myelocytes, and promyelocytes. Blood smears from CBCs yielding IG's will be scanned manually for concordance. If this scan disagrees with the automated IG or if promyelocytes are noted, a manual differential will be performed. Immature Gran Absolute 0.20(H) 0.00 - 0.04 x10(3)/mc L [facility] Blood specimen (specimen) 09/14/2017 1:23 AM EDT 09/14/2017 1:28 AM EDT Narrative Resulting Agency Comment Spec In Lab Vera HASSAN HEMATOLOGY ORDERABLE S [facility] [place] [address] * (ABNORMAL) Hemogram (09/14/2017 1:23 AM EDT) White Blood Cell 12.5(H) 4.0 - 9.5 x10(3)/mc L [facility] Red Blood Cell 3.35(L) 4.58 - 5.54 x10(6)/mc L [facility] Hemoglobin 9.9(L) 13.7 - 16.5 gm/dL [facility] Hematocrit 30.8(L) 40.5 - 48.5 % [facility] Mean Cell Volume 91.9 82.9 - 93.1 fL [facility] Mean Cell Hemoglobin 29.6 27.5 - 32.1 pg [facility] Mean Cell Hemoglobin Concentration 32.1 32.0 - 35.7 gm/dL [facility] Platelet 118(L) 145 - 357 x10(3)/mc L [facility] RDW Standard Deviation 50.8(H) 36.0 - 45.0 fL [facility] RDW coefficient of variation 18.2(H) 11.4 - 13.8 % [facility] Mean Platelet Volume 11.2 7.6 - 12.9 fL [facility] NRBC% auto 0.5 % [facility] NRBC Absolute 0.060(H) 0.000 - 0.000 x10(3)/mc L [facility] Blood specimen (specimen) 09/14/2017 1:23 AM EDT 09/14/2017 1:28 AM EDT Narrative Resulting Agency Comment Spec In Lab [facility] ORDERABLE S [facility] [place] [address] * (ABNORMAL) Basic Metabolic Panel (non-fasting) (09/14/2017 1:23 AM EDT) Glucose 153 65 - 199 mg/dL [facility] Comment:Diabetes: >=200 mg/d L plus symptoms Blood Urea Nitrogen 97(H) 10 - 20 mg/dL [facility] Creatinine 1.38 0.80 - 1.50 mg/dL [facility] Sodium 148(H) 135 - 145 mmol/L [facility] Potassium 4.4 3.5 - 5.0 mmol/L [facility] Comment: Please note: ??Patients with WBC >100,000 may have falsely elevated Potassium levels. ??For accurate Potassium quantification in these patients send serum separator tube (gold top) for subsequent determinations. ??Contact the Clinical Chemistry Laboratory if there are any questions. Chloride 111(H) 98 - 107 mmol/L [facility] Carbon Dioxide 22 22 - 31 mmol/L [facility] Anion Gap 15 5 - 15 mmol/L [facility] Calcium 7.7(L) 8.5 - 10.5 mg/dL [facility] Comment:result rechecked-KS Est Glomerular Filtration Rate 51(L) >=60 [facility] Comment: The reported eGFR should be multiplied by 1.2 for patients. The MDRD is not an appropriate measure of renal function for patients with body mass extremes or in patients with acute kidney failure. http://Phagenesis/DHnkdep http://Comixology.com/DHMCnkf Blood specimen (specimen) 09/14/2017 1:23 AM EDT 09/14/2017 1:28 AM EDT Narrative Resulting Agency Comment Spec In Lab Shilpa Mercedes MD CHEMISTRY ORDERABLES Performing Organization Address [facility]/ZIP Co de Phone Number [facility] [place] [address] * Prepare RBC (09/14/2017 12:10 AM EDT) Dispensed? Yes [facility] Blood specimen (specimen) 09/14/2017 12:10 AM EDT 09/14/2017 12:06 AM EDT Narrative Resulting Agency Comment Spec In Lab Zack Hood MD BLOOD BANK PRODUCT O RDERABLES Performing Organization Address [facility] Co de Phone Number [facility] [place] [address] * SCAN DOC: LAB (09/14/2017 12:00 AM EDT) Narrative 09/14/2017 12:00 AM EDT Ordered by an unspecified provider. Scanning Provider MEDIA MGR SCAN EXT O RDR/RSLT * POCT Glucose (09/13/2017 11:52 PM EDT) [facility] Glucose, POC 150 65 - 199 mg/dL [facility] Comment: Supplemental ranges: <140 mg/dL before meals <180 mg/dL all other times of the day Blood specimen (specimen) 09/13/2017 11:52 PM EDT 09/13/2017 11:52 PM EDT Zack Hood MD POINT OF CARE TEST O RDERABLES Performing Organization Address [facility] Co de Phone Number [facility] [place] [address] * (ABNORMAL) Hemogram (09/13/2017 11:45 PM EDT) White Blood Cell 11.2(H) 4.0 - 9.5 x10(3)/mc L [facility] Red Blood Cell 2.64(L) 4.58 - 5.54 x10(6)/mc L [facility] Hemoglobin 7.7(L) 13.7 - 16.5 gm/dL [facility] Hematocrit 23.5(L) 40.5 - 48.5 % [facility] Mean Cell Volume 89.0 82.9 - 93.1 fL [facility] Mean Cell Hemoglobin 29.2 27.5 - 32.1 pg [facility] Mean Cell Hemoglobin Concentration 32.8 32.0 - 35.7 gm/dL [facility] Platelet 133(L) 145 - 357 x10(3)/[facility] RDW Standard Deviation 49.1(H) 36.0 - 45.0 [facility] RDW coefficient of variation 16.7(H) 11.4 - 13.8 % [facility] Mean Platelet Volume 11.4 7.6 - 12.9 [facility] NRBC% auto 0.3 % [facility] NRBC Absolute 0.030(H) 0.000 - 0.000 x10(3)/[facility] Blood specimen (specimen) 09/13/2017 11:45 PM EDT 09/13/2017 11:48 PM EDT Narrative Resulting Agency Comment Spec In Lab Zack Hood MD HEMATOLOGY ORDERABLE S [facility] [place] [address] * (ABNORMAL) Hemogram (09/13/2017 8:40 PM EDT) White Blood Cell 13.7(H) 4.0 - 9.5 x10(3)/ L [facility] Red Blood Cell 2.94(L) 4.58 - 5.54 x10(6)/mc L [facility] Hemoglobin 8.9(L) 13.7 - 16.5 gm/dL [facility] Hematocrit 26.8(L) 40.5 - 48.5 % [facility] Mean Cell Volume 91.2 82.9 - 93.1 fL [facility] Mean Cell Hemoglobin 30.3 27.5 - 32.1 pg [facility] Mean Cell Hemoglobin Concentration 33.2 32.0 - 35.7 gm/dL [facility] Platelet 155 145 - 357 x10(3)/mc L [facility] RDW Standard Deviation 49.5(H) 36.0 - 45.0 [facility] RDW coefficient of variation 18.6(H) 11.4 - 13.8 % [facility] Mean Platelet Volume 11.6 7.6 - 12.9 [facility] NRBC% auto 0.2 % [facility] NRBC Absolute 0.030(H) 0.000 - 0.000 x10(3)/mc L [facility] Blood specimen (specimen) 09/13/2017 8:40 PM EDT 09/13/2017 8:45 PM EDT Narrative Resulting Agency Comment Spec In Lab Zack Hood MD HEMATOLOGY ORDERABLE S [facility] [place] [address] * POCT Glucose (09/13/2017 8:07 PM EDT) Glucose, POC 135 65 - 199 mg/dL [facility] Comment: Supplemental ranges: <140 mg/dL before meals <180 mg/dL all other times of the day Blood specimen (specimen) 09/13/2017 8:07 PM EDT 09/13/2017 8:07 PM EDT Zack Hood MD POINT OF CARE TEST O RDERABLES Performing Organization Address [facility]/ZIP Co de Phone Number [facility] [place] [address] * ABORH Recheck Status (09/13/2017 1:19 PM EDT) ABORH Type Recheck Completed [facility] Blood specimen (specimen) Venous Draw / Unknown 09/13/2017 1:19 PM EDT 09/13/2017 1:19 PM EDT Narrative Resulting Agency Comment Spec In Lab Zack Hood MD BLOOD BANK LAB ORDER CORDELIA Performing Organization Address [facility] Co de Phone Number [facility] [place] [address] * Selected Cell Screen (09/13/2017 1:19 PM EDT) [facility] Ab Screen Interp Previously identified Anti-K, Anti-M. No additional alloantibodies detected.* *Due to the presence of alloantibody(ies) additional time is required for preparation of Red Cell Products. See initial antibody identification report for additional information. [facility] Blood specimen (specimen) Venous Draw / Unknown 09/13/2017 1:19 PM EDT 09/13/2017 1:19 PM EDT Narrative Resulting Agency Comment Spec In Lab Zack Hood MD BLOOD BANK LAB ORDER CORDELIA Performing Organization Address [facility] Co de Phone Number [facility] [place] [address] * ABORh Type Manual (09/13/2017 1:19 PM EDT) Expires at 2359 on: 09/16/2017 [facility] ABORH Type O Pos [facility] Blood specimen (specimen) Venous Draw / Unknown 09/13/2017 1:19 PM EDT 09/13/2017 1:19 PM EDT Narrative Resulting Agency Comment Spec In Lab Zack Hood MD BLOOD BANK LAB ORDER CORDELIA [facility] [place] [address] * Fibrinogen (09/13/2017 1:10 PM EDT) Pathologist [facility] Fibrinogen 282 200 - 393 mg/dL [facility] Comment: A fibrinogen level >100 mg/dL is adequate for hemostasis in most patients without underlying bleeding disorders. Blood specimen (specimen) Venous Draw / Unknown 09/13/2017 1:10 PM EDT 09/13/2017 1:18 PM EDT Narrative Resulting Agency Comment Spec In Lab Vera HASSAN HEMATOLOGY ORDERABLE S Performing Organization Address [facility]/ZIP Co de Phone Number [facility] [place] [address] * (ABNORMAL) Differential, Automated (09/13/2017 1:10 PM EDT) Pathologist [facility] Neutrophil % 82.0 % [facility] Neutrophil Absolute 11.59(H) 1.70 - 6.10 x10(3)/mc L [facility] Lymph % 6.9 % [facility] Lymphocytes Abs 1.0 0.9 - 3.2 x10(3)/mc L [facility] Monocyte % 10.5 % [facility] Monocyte Abs 1.5(H) 0.3 - 0.9 x10(3)/mc L [facility] Eos % 0.0 % [facility] Eosinophils Abs 0.0 0.0 - 0.4 x10(3)/mc L [facility] Basophil % 0.1 % [facility] Baso Absolute 0.0 0.0 - 0.1 x10(3)/mc L [facility] Immature Gran % 0.50 % [facility] Comment: Immature granulocytes(IG's)percentage and absolute count will include metamyelocytes, myelocytes, and promyelocytes. Blood smears from CBCs yielding IG's will be scanned manually for concordance. If this scan disagrees with the automated IG or if promyelocytes are noted, a manual differential will be performed. Immature Gran Absolute 0.07(H) 0.00 - 0.04 x10(3)/mc L [facility] Blood specimen (specimen) 09/13/2017 1:10 PM EDT 09/13/2017 1:18 PM EDT Narrative Resulting Agency Comment Spec In Lab Karyntawana Yost LINEN FOLDER HEMATOLOGY ORDERABLE S [facility] [place] [address] * (ABNORMAL) Hemogram (09/13/2017 1:10 PM EDT) White Blood Cell 14.1(H) 4.0 - 9.5 x10(3)/mc L [facility] Red Blood Cell 3.22(L) 4.58 - 5.54 x10(6)/mc L [facility] Hemoglobin 9.5(L) 13.7 - 16.5 gm/dL [facility] Hematocrit 28.7(L) 40.5 - 48.5 % [facility] Mean Cell Volume 89.1 82.9 - 93.1 fL [facility] Mean Cell Hemoglobin 29.5 27.5 - 32.1 pg [facility] Mean Cell Hemoglobin Concentration 33.1 32.0 - 35.7 gm/dL [facility] Platelet 160 145 - 357 x10(3)/mc L [facility] RDW Standard Deviation 49.0(H) 36.0 - 45.0 fL [facility] RDW coefficient of variation 16.2(H) 11.4 - 13.8 % [facility] Mean Platelet Volume 10.7 7.6 - 12.9 fL [facility] NRBC% auto 0.2 % [facility] NRBC Absolute 0.030(H) 0.000 - 0.000 x10(3)/mc L [facility] Blood specimen (specimen) 09/13/2017 1:10 PM EDT 09/13/2017 1:18 PM EDT Narrative Resulting Agency Comment Spec In Lab Karyn Yost LINEN FOLDER HEMATOLOGY ORDERABLE S Performing Organization Address [facility] Co de Phone Number [facility] [place] [address] * (ABNORMAL) Magnesium (09/13/2017 1:10 PM EDT) Magnesium 1.10(H) 0.69 - 1.07 mmol/L [facility] Blood specimen (specimen) 09/13/2017 1:10 PM EDT 09/13/2017 1:18 PM EDT Narrative Resulting Agency Comment Spec In Lab Karyn Yost LINEN FOLDER CHEMISTRY ORDERABLES Performing Organization Address [facility] Co de Phone Number [facility] [place] [address] * (ABNORMAL) CMP w/fasting Glucose (09/13/2017 1:10 PM EDT) Glucose Fasting 142(H) 65 - 99 mg/dL [facility] Comment: ?Fasting* Glucose Interpretive Criteria [...] Urea Nitrogen 121(H) 10 - 20 mg/dL [facility] Creatinine 1.77(H) 0.80 - 1.50 mg/dL [facility] Sodium 144 135 - 145 mmol/L [facility] Potassium 4.4 3.5 - 5.0 mmol/L [facility] Comment: Please note: ??Patients with WBC >100,000 may have falsely elevated Potassium levels. ??For accurate Potassium quantification in these patients send serum separator tube (gold top) for subsequent determinations. ??Contact the Clinical Chemistry Laboratory if there are any questions. Chloride 103 98 - 107 mmol/L [facility] Carbon Dioxide 23 22 - 31 mmol/L [facility] Anion Gap 18(H) 5 - 15 mmol/L [facility] Calcium 9.0 8.5 - 10.5 mg/dL [facility] Protein, Total 6.2 6.1 - 8.0 gm/dL [facility] Albumin 3.1(L) 3.2 - 5.2 gm/dL [facility] Aspartate Aminotransferase 12 0 - 39 unit/L [facility] Alanine Aminotransferase 8 0 - 55 unit/L [facility] Alkaline Phosphatase 101 40 - 120 unit/L [facility] Bilirubin, Total 0.9 0.2 - 1.3 mg/dL [facility] Est Glomerular Filtration Rate 39(L) >=60 [facility] Comment: The reported eGFR should be multiplied by 1.2 for patients. The MDRD is not an appropriate measure of renal function for patients with body mass extremes or in patients with acute kidney failure. http://Comixology.com/DHnkdep http://Comixology.com/DHMCnkf Blood specimen (specimen) 09/13/2017 1:10 PM EDT 09/13/2017 1:18 PM EDT Narrative Resulting Agency Comment Spec In Lab Karyn Yost LIN[employer] FOLDER CHEMISTRY ORDERABLES [facility] [place] [address] * APTT (09/13/2017 1:10 PM EDT) Partial Thromboplastin Time 32 25 - 37 sec [facility] Comment: The PTT is NOT appropriate for heparin monitoring. Use the Anti-Xa level for heparin monitoring (HEP UFH) or LMWH monitoring (HEP LMW). A PTT less than 37 seconds generally indicates adequate hemostasis. Blood specimen (specimen) 09/13/2017 1:10 PM EDT 09/13/2017 1:18 PM EDT Narrative Resulting Agency Comment Spec In Lab Karyn Yost APRN HEMATOLOGY ORDERABLE S Performing Organization Address [facility] Co de Phone Number [facility] [place] [address] * (ABNORMAL) Prothrombin Time (09/13/2017 1:10 PM EDT) Prothrombin Time 22.8(H) 9.4 - 12.5 sec [facility] International Normalization Ratio 2.0 [facility] Comment: An INR <2.0 indicates [...] APRN HEMATOLOGY ORDERABLE S Performing Organization Address [facility] Co de Phone Number [facility] [place] [address] * POCT Glucose (09/13/2017 1:08 PM EDT) Glucose, POC 155 65 - 199 mg/dL [facility] Comment: Supplemental ranges: <140 mg/dL before meals <180 mg/dL all other times of the day Blood specimen (specimen) 09/13/2017 1:08 PM EDT 09/13/2017 1:08 PM EDT Zack Hood MD POINT OF CARE TEST O RDERABLES [facility] [place] [address] * SCAN DOC: JAIL OFFICER (09/13/2017 12:00 AM EDT) Anatomical Region Laterality Modality Other Narrative 09/13/2017 12:00 AM EDT Ordered by an unspecified provider. Scanning Provider MEDIA MGR SCAN EXT O RDR/RSLT documented in this encounter Visit Diagnoses Diagnosis Acute upper GI bleed Hemorrhage of gastrointestinal tract, unspecified Iron deficiency anemia due to chronic blood loss Iron deficiency anemia secondary to blood loss (chronic) ETOH abuse Alcohol abuse, unspecified History of GI tract cancer Personal history of malignant neoplasm of unspecified site in gastrointestinal tract Paroxysmal atrial fibrillation Atrial fibrillation History of ASCVD Personal history of other diseases of circulatory system Pancreatitis c/b pseudocyst/cyst 2003 Cyst and pseudocyst of pancreas Depression, unspecified depression type Chronic obstructive pulmonary disease, unspecified COPD type Tobacco abuse disorder Tobacco use disorder Acute upper GI bleed Hemorrhage of gastrointestinal tract, unspecified Iron deficiency anemia due to chronic blood loss Iron deficiency anemia secondary to blood loss (chronic) ETOH abuse Alcohol abuse, unspecified History of GI tract cancer Personal history of malignant neoplasm of unspecified site in gastrointestinal tract Paroxysmal atrial fibrillation Atrial fibrillation History of ASCVD Personal history of other diseases of circulatory system Chronic back pain Backache, unspecified Type 2 diabetes mellitus with neurologic complication, without long-term current use of insulin Pancreatitis c/b pseudocyst/cyst 2003 Cyst and pseudocyst of pancreas Depression Depressive disorder, not elsewhere classified COPD (chronic obstructive pulmonary disease) Chronic airway obstruction, not elsewhere classified Tobacco abuse disorder Tobacco use disorder documented in this encounter Admitting Diagnoses Diagnosis Acute [...] Given 09/19/2017 11:28 PM EDT 1,000 mg acetaminophen (TYLENOL) tablet 650 mg 650 mg, Oral, EVERY 6 HOURS SCHEDULED, First dose on Tue09/17/17 at 1200, Until Discontinued, Maximum dose of acetaminophen is 4000 mg from all sources in 24 hours., Routine Given 09/17/2017 11:47 AM EDT 650 mg apixaban (ELIQUIS) tablet 5 mg 5 mg, Oral, 2 TIMES DAILY, First dose on Tue09/16/17 at 0900, Until Discontinued, Anticoagulant, Routine, Restricted anticoagulant, choose the most appropriate response: Continuation of ongoing therapy Given 09/17/2017 8:42 AM EDT 5 mg Given 09/16/2017 10:00 PM EDT 5 mg Given 09/16/2017 9:51 AM EDT 5 mg aspirin chewable tablet 81 mg 81 mg, Oral, DAILY, First dose on Tue09/14/17 at 0900, Until Discontinued, Routine Given 09/14/2017 8:12 AM EDT 81 mg aspirin EC tablet 81 mg 81 mg, Oral, DAILY, First dose on Tue09/17/17 at 0900, Until Discontinued, Routine Given 09/17/2017 8:44 AM EDT 81 mg aspirin EC tablet 81 mg 81 [...] Given 09/19/2017 3:26 AM EDT 2 drops cefTRIAXone (ROCEPHIN) 1 g vial attach to sodium chloride 0.9% 50 mL Mini-Bag Plus 1 g, Intravenous, EVERY 24 HOURS, First dose on Tue09/13/17 at 1400, Until Discontinued, Administer over 30 Minutes, Indication for (Active or Suspected): Prophylaxis New Bag 09/13/2017 1:35 PM EDT 1 g 100 mL/ hr dextrose 5% infusion 75 mL/hr, Intravenous, CONTINUOUS, Starting on Tue09/14/17 at 0630, Until Tue09/14/17 at 1315 New Bag 09/14/2017 6:48 AM EDT 75 mL/hr 75 mL/hr folic acid (FOLVITE) tablet 1,000 mcg 1,000 mcg (1 mg), Oral, DAILY, First dose on Tue09/14/17 at 0900, Until Discontinued, Routine Given 09/20/2017 8:20 AM EDT 1,000 mcg Given 09/19/2017 8:54 AM EDT 1,000 mcg Given 09/18/2017 8:38 AM EDT 1,000 mcg folic acid injection 1 mg 1 mg, Intravenous, DAILY, First dose on Tue09/13/17 at 1900, Until Discontinued, Routine Given 09/13/2017 6:20 PM EDT 1 mg furosemide (LASIX) tablet 40 mg 40 mg, [...] Given 09/19/2017 4:35 PM EDT 300 mg HYDROcodone-acetaminophen (NORCO) 5-325 mg per tablet 1 tablet 1 tablet, Oral, 2 TIMES DAILY PRN, Starting on Tue09/14/17 at 1942, Until Tue09/15/17 at 1529, Pain, Maximum dose of acetaminophen is 4000 mg from all sources in 24 hours. , Routine Given 09/15/2017 7:40 AM EDT 1 tablet Given 09/14/2017 7:59 PM EDT 1 tablet HYDROcodone-acetaminophen (NORCO) 5-325 mg per tablet 1 tablet 1 tablet, Oral, ONCE, 1 dose, On Tue09/15/17 at 0030, Maximum dose of acetaminophen is 4000 mg from all sources in 24 hours. , Routine Given 09/15/2017 12:15 AM EDT 1 tablet insulin lispro (HumaLOG) VIAL injection 1-4 Units 1-4 Units, Subcutaneous, EVERY 4 HOURS SCHEDULED, First dose on Tue09/13/17 at 2000, Until Discontinued, CORRECTION BOLUS Sensitive to insulin lean patient or total daily dose of all insulin needed to achieve glycemic control less than 30 units BG 140 - 160 Give 1 unit BG 161 - 200 Give 2 units BG 201 - 240 Give 3 units BG greater than 240, give 4 units and recheck BG in 2 hours. If less than 240 after two hours, give no insulin and resume prior schedule. If BG remains greater than 240, repeat 4 units (no more than three times) & call for new basal insulin orders. Do not hold if NPO, unless specifically told to do so., Routine Given 09/15/2017 12:21 AM EDT 2 Unit s Given 09/14/2017 4:00 PM EDT 2 Units Given 09/14/2017 7:39 AM EDT 1 Units insulin lispro (HumaLOG) VIAL injection 1-4 Units 1-4 Units, Subcutaneous, 3 TIMES DAILY BEFORE MEALS, First dose (after last modification) on Brii 09/15/17 at 1630, Until Discontinued, CORRECTION BOLUS Sensitive to insulin lean patient or total daily dose of all insulin needed to achieve glycemic control less than 30 units BG 140 - 160 Give 1 unit BG 161 - 200 Give 2 units BG 201 - 240 Give 3 units BG greater than 240, give 4 units and recheck BG in 2 hours. If less than 240 after two hours, give no insulin and resume prior schedule. If BG remains greater than 240, repeat 4 units (no more than three times) & call for new basal insulin orders. Do not hold if NPO, unless specifically told to do so., Routine Given 09/17/2017 7:34 AM EDT 1 Units Given 09/16/2017 8:02 AM EDT 1 Units ipratropium-albuterol (DUONEB) 0.5 mg-3 mg(2.5 mg base)/3 mL nebulizer solution 3 mL 3 mL, Nebulization, EVERY 4 HOURS PRN, Starting on Tue09/13/17 at 1736, Until Tue09/20/17 at 1814, Wheezing, Routine lactated Ringers infusion 75 mL/hr, Intravenous, CONTINUOUS, Starting on Tue09/14/17 at 1345, Until Tue09/15/17 at 0833 New Bag 09/15/2017 3:18 AM EDT 75 mL/hr 75 mL /hr Rate/Dose Verify 09/14/2017 8:00 PM EDT 75 mL/hr 75 mL/h r New Bag 09/14/2017 1:51 PM EDT 75 mL/hr 75 mL/hr lactulose (CHRONULAC) 20 gram/30 mL oral solution 20 g 20 g, Oral, 3 TIMES DAILY PRN, Starting on Tue09/17/17 at 0841, [...] Given 09/19/2017 8:54 AM EDT 12.5 mg metoprolol tartrate (LOPRESSOR) tablet 25 mg 25 mg, Oral, EVERY 12 HOURS SCHEDULED (2 times per day), First dose (after last modification) on Tue09/17/17 at 2100, Until Discontinued, Hold for SBP < 90 or HR < 60, Routine Given 09/17/2017 10:03 PM EDT 25 mg metoprolol tartrate (LOPRESSOR) tablet 50 mg 50 mg, Oral, EVERY 12 HOURS SCHEDULED (2 times per day), First dose on Tue09/14/17 at 0900, Until Discontinued, Hold for SBP < 90 or HR < 60, Routine Given 09/17/2017 8:44 AM EDT 50 mg Given 09/16/2017 10:00 PM EDT 50 mg Given 09/16/2017 8:01 AM EDT 50 mg multivitamin with folic acid (THERA TAB) [...] Discontinued, Verify nicotine 21 mg/24 hr patch octreotide acetate (SandoSTATIN) 50 mcg in sodium chloride 0.9% 50.5 mL 50 mcg, Intravenous, ONCE, 1 dose, On Tue09/13/17 at 1330, Administer over 30 Minutes New Bag 09/13/2017 3:58 PM EDT 50 mcg 101 mL/hr oxyCODONE (ROXICODONE) immediate release tablet 5 mg 5 mg, Oral, EVERY 4 HOURS PRN, Starting on Tue09/15/17 at 1529, Until Tue09/20/17 at 1814, Pain, Routine Given 09/20/2017 6:22 AM EDT 5 mg Given 09/19/2017 9:25 PM EDT 5 mg Given 09/18/2017 9:08 AM EDT 5 mg oxyCODONE (ROXICODONE) immediate release tablet 5 mg 5 mg, Oral, ONCE, 1 dose, On 09/17/17 at 1030, STAT Given 09/17/2017 10:31 AM EDT 5 mg pantoprazole (PROTONIX) 80 mg in sodium chloride 0.9% 120 mL infusion 8 mg/hr (12 mL/hr), Intravenous, CONTINUOUS, Starting on Tue09/13/17 at 1330, Until Tue09/14/17 at 0904 New Bag 09/13/2017 10:08 PM EDT 8 mg/hr 12 mL/hr Rate/Dose Change 09/13/2017 8:00 PM EDT 8 mg/hr 12 mL/h r New Bag 09/13/2017 2:17 PM EDT 8 mg/hr 12 mL/hr pantoprazole (PROTONIX) injection 40 mg 40 mg, Intravenous, 2 TIMES DAILY, First dose on Tue09/14/17 at 0930, Until Discontinued Given 09/15/2017 9:20 AM EDT 4 0 mg Given 09/14/2017 9:45 PM EDT 40 mg Given 09/14/2017 9:30 AM EDT 40 mg pantoprazole (PROTONIX) injection 40 mg 40 mg, Intravenous, 2 TIMES DAILY, First dose on Tue09/18/17 at 0900, Until Discontinued Given 09/20/2017 8:19 AM EDT 4 0 mg Given 09/19/2017 9:16 PM EDT 40 mg Given 09/19/2017 8:54 AM EDT 40 mg pantoprazole (PROTONIX) tablet 40 mg 40 mg, Oral, 2 TIMES DAILY, First dose on Brii 09/15/17 at 2100, Until Discontinued, DO NOT CRUSH OR OPEN Given 09/17/2017 10:03 PM EDT 40 mg Given 09/17/2017 8:45 AM EDT 40 mg Given 09/16/2017 10:01 PM EDT 40 mg senna-docusate (PERICOLACE) 8.6-50 mg per tablet 1 tablet 1 tablet, Oral, 2 TIMES DAILY, First dose on Tue09/15/17 at 2100, Until Discontinued, Routine Given 09/20/2017 8:19 AM EDT 1 tablet Given 09/19/2017 9:17 PM EDT 1 tablet Given 09/19/2017 9:06 AM EDT 1 tablet sodium chloride 0.9% 1,000 mL with adult multivitamin 10 mL, folic acid 1 mg, thiamine 100 mg, magnesium sulfate 2 g infusion at 125 mL/hr, Intravenous, ONCE, 1 dose, On Tue09/13/17 at 1330 New 09/13/2017 2:22 PM EDT 125 mL/hr sodium chloride 0.9% 500 mL IV bolus Intravenous, ONCE, 1 dose, On Tue09/16/17 at 1245 New 09/16/2017 12:18 PM EDT sodium chloride 0.9% infusion 100 mL/hr, Intravenous, CONTINUOUS, Starting on Tue09/18/17 at 0100, Until Tue09/19/17 at 0800 New 09/19/2017 5:43 AM EDT 100 mL/hr 100 mL/hr New 09/18/2017 8:13 PM EDT 100 mL/hr 100 mL/hr New 09/18/2017 10:44 AM EDT 100 mL/hr 100 mL/hr sucralfate (CARAFATE) 100 mg/mL oral suspension 1 [...] Tue09/21/17 at 0900, Administer over 30 Minutes 09/20/2017 8:18 AM EDT 250 mg 105 mL/hr 09/19/2017 8:59 AM EDT 250 mg 105 mL/hr 09/18/2017 10:54 AM EDT 250 mg 105 mL/hr thiamine (B-1) 500 mg in sodium chloride 0.9% 55 mL 500 mg, Intravenous, 3 TIMES DAILY, 9 doses, First dose on Tue09/13/17 at 2100, Last dose on Tue09/16/17 at 1500, Administer over 30 Minutes 09/16/2017 2:05 PM EDT 500 m g 110 mL/hr 09/16/2017 8:03 AM EDT 500 mg 110 mL/hr 09/15/2017 8:55 PM EDT 500 mg 110 mL/hr thiamine (B-1) injection 100 mg 100 [...] RN)2117 (Given - Provider: Yvette Aranda, DESTIN) 0819 [...] 0907 (Given - Provider: Jake Carlson RN)1301 ([facility]G Hold - Provider: Admin Adt - Reason: Transfer to a Procedural area)1449 ([facility] Unhold - Provider: Admin Adt)2143 (Given - Provider: Michelle Coker, DESTIN) 0854 (Given - Provider: Jake Carlson RN)2117 (Given [...] hr patch 0900 (Patch Removed - Provider: Jaek Carlson RN)1301 (AUG Hold - Provider: Admin [...] Coker RN) 0854 (Given - Provider: Jake Carlson RN)211 (Given - Provider: Yvette Aranda, DESTIN) 0819 [...] Adt)2143 (Given - Provider: Michelle Coker RN) 0906 (Given - Provider: Jake Carlson RN)2116 (Given - Provider: Yvette Aranda RN) 0819 (Given - Provider: Jake Carlson RN) sucralfate (CARAFATE) 100 mg/mL oral suspension 1 g 1 g, Oral, 4 TIMES DAILY BEFORE MEALS & NIGHTLY, First dose on 09/19/17 at 2100, Until Discontinued, Routine 2115 (Given - Provider: Yvette Aranda RN) 0723 (Given - Provider: Jake Carlson RN)1243 [...] Brii 09/22/17 at 0900, Until Discontinued 1301 ([facility] Hold - Provider: Admin Adt - Reason: Transfer to a Procedural area)1449 ([facility] Unhold - Provider: Admin Adt) tiotropium (SPIRIVA) inhalation capsule with device 18 mcg 18 mcg, Inhalation, DAILY, First dose on 09/13/17 at 1900, Until Discontinued 0846 (Given - Provider: Jake Carlson, DESTIN)1301 ([facility] Hold - Provider: Admin Adt - Reason: Transfer to a Procedural area)1449 ([facility] Unhold - Provider: Admin Adt) 0752 (Given - Provider: Jake Carlson, DESTIN) 0819 (Given - Provider: Jake Carlson, DESTIN) Continuous Medication Order 09/18/2017 09/19/2017 09/20/2017 sodium chloride 0.9% infusion (CANCELED) 100 mL/hr, Intravenous, CONTINUOUS, Starting on 09/18/17 at 0100, Until 09/19/17 at 0800 0051 (New Bag - Provider: Hazel Eaton RN)1044 (New Bag - Provider: Jake Carlson RN)1301 ([facility] Hold - Provider: Admin Adt - Reason: Transfer to a Procedural area)1449 ([facility] Unhold - Provider: Admin Adt)2013 (New Bag - Provider: Michelle Coker, DESTIN) 0543 (New Bag - Provider: Michelle Coker, DESTIN)0855 (Stopped - Provider: Jake Carlson, DESTIN) PRN Medication Order 09/18/2017 09/19/2017 09/20/2017 bisacodyl (DULCOLAX) suppository 10 mg 10 mg, Rectal, DAILY PRN, Starting on 09/17/17 at 0841, Until e 09/20/17 at 1814, Constipation, Routine 1301 ([facility] Hold - Provider: Admin Adt - Reason: Transfer to a Procedural area)1449 ([facility] Unhold - Provider: Admin Adt) calcium carbonate (TUMS) chewable tablet 500 mg 500 mg, Oral, 3 TIMES DAILY PRN, Starting on 09/17/17 at 0143, Until 09/20/17 at 1814, Heartburn, STAT 1301 ([facility] Hold - Provider: Admin Adt - Reason: Transfer to a Procedural area)1449 ([facility] Unhold - Provider: Admin Adt) 1736 (Given - Provider: Jake Carlson, DESTIN) carboxymethylcellulose (REFRESH PLUS) 0.5 % ophthalmic drops 1-2 drop 1-2 drop, Both Eyes, 3 TIMES DAILY PRN, Starting on 09/18/17 at 2109, Until 09/20/17 at 1814, Dry Eyes, Routine 2143 (Given - Provider: Michelle Coker, DESTIN) 0326 (Given - Provider: Michelle Coker, DESTIN)1010 (Given - Provider: Jake Carlson, DESTIN)2335 (Given - Provider: Yvette Aranda, DESTIN) ipratropium-albuterol (DUONEB) 0.5 mg-3 mg(2.5 mg base)/3 mL nebulizer solution 3 mL 3 mL, Nebulization, EVERY 4 HOURS PRN, Starting on 09/13/17 at 1736, Until 09/20/17 at 1814, Wheezing, Routine 1301 ([facility] Hold - Provider: Admin Adt - Reason: Transfer to a Procedural area)1449 ([facility] Unhold - Provider: Admin Adt) lactulose (CHRONULAC) 20 gram/30 mL oral solution 20 g 20 g, Oral, 3 TIMES DAILY PRN, Starting on 09/17/17 at 0841, Until e 09/20/17 at 1814, Constipation, Please use before bisacodyl suppository., Routine 1301 ([facility] Hold - Provider: Admin Adt - Reason: Transfer to a Procedural area)1449 ([facility] Unhold - Provider: Admin Adt) oxyCODONE (ROXICODONE) immediate release tablet 5 mg 5 mg, Oral, EVERY 4 HOURS PRN, Starting on Brii 09/15/17 at 1529, Until 09/20/17 at 1814, Pain, Routine 0908 (Given - Provider: Jkae Carlson, DESTIN)1301 ([facility] Hold - Provider: Admin Adt - Reason: Transfer to a Procedural area)1449 ([facility] Unhold - Provider: Admin Adt) 2125 (Given - Provider: Yvette Aranda, DESTIN) 0622 (Given - Provider: Yvette Aranda, DESTIN) sodium chloride 0.9% infusion 10 mL/hr, Intravenous, CONTINUOUS PRN, Starting on Tue 10/18 at 1305, Until Tue09/20/17 at 1814 1301 [...] Discontinued documented in this encounter Care Teams Cut Out Worker Relationship Specialty Start Date End Date Silvina Perdue MD [facility] [address] [place] [phone] PCP - General 04/28/10 documented as of this encounter
--- OUTSIDE RECORDS SUMMARY | 2024-04-02 21:46 | XMS_ITS | Encounter Summary ---
Author Organization [facility] Address [facility] [place] [address] Care Team Providers Care Regional Administrative Assistant Name Role Phone Silvina Perdue MD Primary Care Provider [phone] Reason for Visit * Auth/Cert Specialty Diagnoses / Procedures Referred By Viridiana richards Referred To Contact Diagnoses Acute upper GI bleed UPPER GIB GI Bleed per CR Procedures EGD, UPPER GI ENDOSCOPY Referral ID Status Reason Start Date Expiration Date Visits Re quested Visits Authorized [id number] 1 1 Encounter Details Date Type Department Care Team (Late st Contact Info) Description 09/18/2017 1:35 PM EDT Anesthesia Event [place] [address] Mark Whitmore MD [facility] [place] [address] Sekou Clinton MD [facility] [place] [address] Anesthesia Record Procedure Summary Procedure Name Responsible Anesthesiologist Anesthesia Start Time Anesthesia Stop Time EGD, W CONTROL OF BLEEDING, ANY METHOD (WRVU 3.56) Mark Whitmore MD 09/18/17 1335 09/18/17 1404 Events Date Time Event Comment 09/18/2017 1335 AN Verify 1335 Start 1335 An Start Data 1337 1339 Anesthesia Ready 1342 Procedure Start 1354 Procedure Stop 1359 an stop data 1404 Recovery or ICU Handoff Verenice ent care was transferred to the destination unit staff after review of the patient's medical history, current anesthetic/surgical status and plan, according to the Provider Handoff Checklist. 1404 Stop Meds Name Total Propofol 30 mg Propofol INF 126.6 mg Lactated Ringers 200 mL * Agents Name O2 * Blood No blood administrations on file. Lines, Drains, and Airways Type Details Placement Removal (RETIRED) Peripheral IV Line - Single Lumen 09/17/17; 0955; cephalic vein (lateral side of arm), right; fgit-riu-lphfue catheter system; 22 gauge; murtaza figueroa RN; distraction, intradermal injection; 09/20/17; 1437 09/17/17 0955 by Murtaza Figueroa RN 09/20/17 1437 by Jake Carlson RN (RETIRED) Peripheral IV Line - Single Lumen 09/18/17; 0048; cephalic vein (lateral side of arm), left; apaa-wcn-moccrp catheter system; 18 gauge, 1 in length; intradermal injection, tolerated well; 0; 09/20/17; 1437 09/18/17 0048 by Nica Klein RN 09/20/17 1437 by Jake Carlson RN documented in this encounter Social History [...] OR Notes * Anesthesia Postprocedure Evaluation - Mark Whitmore MD - 09/18/2017 2:14 PM EDT [facility] Department of Anesthesiology Post-procedure Note Patient: Nain D Jorge Luis Procedure Summary Date Anesthesia Start Anesthesia Stop Room / Location 09/18/17 1335 1404 [facility] / [facility] Procedure Diagnosis Surgeon Responsible Provider EGD, W CONTROL OF BLEEDING, ANY METHOD (GI bleed) Zain Sifuentes MD Toth, Adam R, MD All Anesthesia Providers: Anesthesiologist: Mark Whitmore MD Most Recent Vitals: 09/18/17 1410 BP: (!) 88/50 Pulse: 65 Resp: 16 Temp: SpO2: 99% Pain 0 (09/18/17 1410) Patient Location: PACU/SDP Level of Consciousness: Awake and Alert Pain Management: Satisfactory Analgesia PONV: None Cardiovascular Status: At Baseline and Hemodynamically Stable Respiratory Status: At Baseline and Room Air Postoperative Fluid Status: Intravascular EUvolemia Possible Anesthetic Complications: NONE apparent at time of evaluation Final Primary Anesthesia Type: MAC (The anesthetic type performed was the same as planned.) Comments: Mark Whitmore MD * Anesthesia Preprocedure Evaluation - Mark Whitmore MD - 09/18/2017 1:37 PM EDT Pre-Anesthesia Evaluation for: Nain Kang a 67 y.o. male. Procedure(s): ENDOSCOPY, UPPER GI, DIAGNOSTIC, WITH OR WITHOUT SPECIMENS Patient Active Problem List Diagnosis ??? Iron deficiency anemia due to [...] Metformin and Gabapentin ??? Pancreatitis c/b pseudocyst/cyst 2003 ??? Depression [...] ENDOSCOPY performed by Marixa Vidales MD at [facility] Social History Substance Use Topics ??? Smoking status: Former Smoker Types: Cigarettes ??? Smokeless tobacco: Never Used ??? Alcohol use 12.0 oz/week 14 Cans of beer, 6 Shots of liquor per week History Drug Use No No Known Allergies Medications: MAR and/or home medications have been reviewed. Physical Exam: Most Recent Vitals: 09/18/17 1141 BP: 98/59 Pulse: 70 Resp: 18 Temp: 36.3 ??C (97.3 ??F) SpO2: 100% Body mass index is 22.52 kg/(m^2). Height: 167.6 cm (5' 6) Weight: 63.3 kg (139 lb 8.8 oz) Airway Assessment: Mallampati: I TM distance: >3 FB Neck ROM: full Cardiovascular Assessment: Rhythm: irregular Pulmonary Assessment: Dental Assessment: (+) lower dentures and upper dentures Misc Assessment: IV access: Peripheral line Anesthesia Plan: ASA 3 MAC, EGD for GIB, not actively bleeding Region - Other Informed Consent: Anesthetic plan and risks discussed with patient. PAT Staff Note documented in this encounter Plan of Treatment Not on file documented as of this encounter Visit Diagnoses Not on filedocumented in this encounter Administered Medications Inactive Administered Medications - up to 3 most recent administrations Medication Order MAR Action Action Date Dose Rate Site lactated Ringers infusion CONTINUOUS PRN, Starting on 09/18/17 at 1354, Until 09/18/17 at 1413, Anesthesia Intra-op New Bag 09/18/2017 1:35 PM EDT propofol (DIPRIVAN) 10 mg/mL bolus injection (Anesthesia) PRN, Starting on 09/18/17 at 1340, Until 09/18/17 at 1413, Anesthesia Intra-op Given 09/18/2017 1:40 PM EDT 30 mg propofol (DIPRIVAN) infusion CONTINUOUS PRN, Starting on 09/18/17 at 1338, Until 09/18/17 at 1413, Anesthesia Intra-op, Routine New Bag 09/18/2017 1:38 PM EDT 125 mcg/kg/min 47.5 mL/hr documented in this encounter Care Teams Regional Administrative Assistant Relationship Specialty Start Date End Date Silvina Perdue MD [address] [place] [address] PCP - General 04/28/10 documented as of this encounter
--- OUTSIDE RECORDS SUMMARY | 2024-04-02 21:47 | XMS_ITS | Encounter Summary ---
Author Organization [facility] Address [address] [place] [address] Care Team Providers Care Data Technician Name Role Phone Silvina Perdue MD Primary Care Provider [phone] Encounter Details Date Type Department Care Team (Late st Contact Info) Description 10/12/2021 Lab Requisition [facility] Pathology & Laboratory Medicine - Main [place] [address] [place], [place] [address] Outr Resulting Lab, Provider Social History Tobacco Use Types Packs/Day Years Used Date Smoking Tobacco: Never Assessed Sex and Gender Information Value Date Recorded Sex Assigned at Not on file Gender Identity Not on file Sexual Orientation Not on file documented as of this encounter Plan of Treatment Not on file documented as of this encounter Procedures Procedure Name Priority Date/Time Associated Diagnosis Comments LEGIONELLA ANTIGEN DETECTION, URINE Routine 10/12/2021 17:00 EDT documented in this encounter Results * LEGIONELLA ANTIGEN DETECTION, URINE (10/12/2021 17:00 EDT) Legionella Antigen Detection Negative Negative 10/13/2021 20:09 EDT [facility] Urine URINE / Unknown 10/12/2021 1 7:00 EDT 10/13/2021 18:04 EDT Provider Outr Resulting Lab MICROBIOLOGY - GENERAL ORDERABLES [facility] [address] [place] [address] documented in this encounter Visit Diagnoses Not on filedocumented in this encounter Care Teams Data Technician Relationship Specialty Start Date End Date Silvina Perdue MD [address] [place] [phone] PCP - General 12/25/08 documented as of this encounter
--- OUTSIDE RECORDS SUMMARY | 2024-04-02 21:47 | XMS_ITS | Encounter Summary ---
Author Organization [facility] Address [address] [place] [address] Care Team Providers Care Forest Fire Lookout Name Role Phone Silvina Foss MD Primary Care Provider [phone] Encounter Details Date Type Department Care Team (Late st Contact Info) Description 04/08/2003 Results Only [facility] [address] [place] [address] Eric Josue MD [address] [place] [address] Social History Tobacco Use Types Packs/Day Years Used Date Smoking Tobacco: Never Assessed Sex and Gender Information Value Date Recorded Sex Assigned at Not on file Gender Identity Not on file Sexual Orientation Not on file documented as of this encounter Plan of Treatment Not on file documented as of this encounter Procedures Procedure Name Priority Date/Time Associated Diagnosis Comments SURGICAL PATHOLOGY Routine 04/08/2003 0:00 EST documented in this encounter Results * SURGICAL PATHOLOGY (04/08/2003 0:00 EST) Pathology Report: SURGICAL PATHOLOGY REPORT Reports generated via electronic interface contain original data; however they are lacking the format of the original report. Caution should be taken when reading/interpretin g unformatted reports. Name: ? ANDREW MABRY ? Accession #: ? [id number] ? : ? 1950 (Age: 52) ??M ? Collect Date: ? 04/08/2003 ? Location: ? [facility] ? Receive Date: ? 04/08/2003 ? Provider: ERIC JOSUE MD Copy to: SILVINA FOSS MD ? Final Pathologic Diagnosis: ? A. Stomach, antrum, biopsy: ?1. 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 ?2. Focal mild chronic gastritis. ?3. Feli stain is negative for Helicobacter pylori-like microorganisms. B. Esophagus, 33 cm, anastomosis, biopsy: ?1. Mild esophagitis with features suggestive of gastroesophageal reflux and reactive change. ?2. Focal granulation tissue with acute and chronic inflammation. Comment: ? Feli stain was performed on A1 an A2. ??(Dr. Morales)/ Document reviewed and electronically signed by: Leigh Morales MD Report ??Date: 04/11/2003 13:00 By the signature above, the attending physician certifies that he/she has personally conducted a gross and/or microscopic examination of the described specimens and rendered or confirmed the above diagnosis. Specimen(s) Received: A. ?Bx @ antrum B. ?Bx @ esophageal anastomosis 33 cm Clinical History: ? Hx esophageal Ca, screening for Ca, ? bile gastritis Gross Description: ? Received in Hollande's fixative labelled Jorge Luis and bx antrum are five hart soft tissue biopsies ranging from 0.2 x 0.1 x 0.1 cm to 0.4 x 0.2 x 0.1 cm. Entirely submitted as (A1) and (A2). Received in Hollande's fixative labelled Jorge Luis and bx esophageal anastomosis are five hart soft tissue biopsies ranging from 0.1 x 0.1 x 0.1 cm to 0.4 x 0.2 x 0.2 cm. ??Entirely submitted as (B1) and (B2). (Jodie Deng)/tmg End of Report [facility] 04/08/2003 04/08/2003 15: 20 EST Eric Josue MD PATHOLOGY ORDERABLE S Performing Organization Address City/State/[facility] Co de Phone Number [facility] [address] [place] [address] documented in this encounter Visit Diagnoses Not on filedocumented in this encounter Care Teams Forest Fire Lookout Relationship Specialty Start Date End Date Silvina Foss MD [address] [place] [phone] PCP - General 12/25/08 documented as of this encounter
--- OUTSIDE RECORDS SUMMARY | 2024-04-02 21:47 | XMS_ITS | Encounter Summary ---
Author Organization [facility] Address [facility] [place] [address] Care Team Providers Care Rail Track Maintainer Name Role Phone Silvina Perdue MD Primary Care Provider [phone] Reason for Visit * Reason Comments Medication Refill Encounter Details Date Type Department Care Team (Late st Contact Info) Description 02/16/2016 Refill Dermatology at [place] [address] [place] [address] Dandy Emerson MD [address], [place] [address] Social History Tobacco Use Types Packs/Day Years Used Date Smoking Tobacco: Former Sex and Gender Information Value Date Recorded Sex Assigned at Not on file Gender Identity Not on file Sexual Orientation Not on file documented as of this encounter Plan of Treatment Not on file documented as of this encounter Visit Diagnoses Not on filedocumented in this encounter Care Teams Rail Track Maintainer Relationship Specialty Start Date End Date Silvina Perdue MD [facility] [address] [place] [address] PCP - General 04/28/10 documented as of this encounter
--- OUTSIDE RECORDS SUMMARY | 2024-04-02 21:47 | XMS_ITS | Encounter Summary ---
Author Organization [facility] Address [address] [place] [address] Care Team Providers Care Value Advisor Name Role Phone Silvina Foss MD Primary Care Provider [phone] Encounter Details Date Type Department Care Team (Late st Contact Info) Description 08/05/2016 Results Only [facility] [phone] Rashawn Poole MD [address] [place] [phone] Social History Tobacco Use Types Packs/Day Years Used Date Smoking Tobacco: Never Assessed Sex and Gender Information Value Date Recorded Sex Assigned at Not on file Gender Identity Not on file Sexual Orientation Not on file documented as of this encounter Plan of Treatment Not on file documented as of this encounter Procedures Procedure Name Priority Date/Time Associated Diagnosis Comments SURGICAL PATHOLOGY Routine 08/05/2016 10 :05 EST documented in this encounter Results * SURGICAL PATHOLOGY (08/05/2016 10:05 EST) Pathology Report: SURGICAL PATHOLOGY REPORT Reports generated via electronic interface contain original data; however they are lacking the format of the original report. Caution should be taken when reading/interpret ing unformatted reports. Name: ? ANDREW MABRY ? Accession #: ? [id number] ? : ? 1950 (Age: 65) ??M ? Collect Date: ? 08/05/2016 ? Location: ? [facility] ? Receive Date: ? 08/06/2016 ? Provider: RASHAWN POOLE MD Copy to: SILVINA FOSS MD ? Final Pathologic Diagnosis: SUBMITTED SCROTAL MASS, EXCISION: - Thrombosed spermatic vein with focal recanalization. See comment. - Adjacent tissue with polarizable foreign material with associated foreign body giant cell reaction, hemosiderin-laden macrophages, and fibrosis. - No vas deferens identified. Comment: Dr. Murtaza Duque has reviewed the case in consultation and agrees with the above diagnosis. Dr. Sevilla 08/09/2016 3:10 PM Document reviewed and electronically signed by: SOWMYA SEVILLA MD Report ??Date: 08/09/2016 15:11 By the signature above, the attending physician certifies that he/she has personally conducted a gross and/or microscopic examination of the described specimens and rendered or confirmed the above diagnosis. Specimen(s) Received: Scrotal mass Clinical History: S/P hydrocele repair, epididymitis Gross Description: ? Received in formalin labelled with proper patient identification (initials S, T) and scrotal mass is a hart-yellow fibrous unoriented soft tissue (3.5 x 3.2 x 1.5 cm). Upon sectioning, the cut surfaces have a red-brown hemorrhagic filled vascular structure (3.5 cm in length x 1.1 cm in diameter). The remaining cut surfaces are hart-yellow and fibrous. Separately received is a hart-yellow to white focally hemorrhagic soft tissue. The specimens are inked, serially sectioned, and sales representative health insurance sections are submitted as 1-2 (larger) and 3 (smaller). SONYA Urban (ASCP) 08/06/2016 1:26 PM End of Report [facility] 08/05/2016 10:0 5 EST 08/06/2016 10:05 EST Rashawn Poole MD PATHOLOGY ORDERAB LES [facility] [address] [place] [address] documented in this encounter Visit Diagnoses Not on filedocumented in this encounter Care Teams Value Advisor Relationship Specialty Start Date End Date Silvina Foss MD [address] [place] [phone] PCP - General 12/25/08 documented as of this encounter
--- OUTSIDE RECORDS SUMMARY | 2024-04-02 21:47 | XMS_ITS | Clinical Summary ---
Author Organization [facility] Address [address] [place] [address] Care Team Providers Care Unified Communications Architect Name Role Phone Silvina Perdue MD Primary Care Provider [phone] Social History Tobacco Use Types Packs/Day Years Used Date Smoking Tobacco: Never Assessed Sex and Gender Information Value Date Recorded Sex Assigned at Not on file Gender Identity Not on file Sexual Orientation Not on file Plan of Treatment Health Maintenance Due Date Last Done Comments Hepatitis C Screen 1950 RSV Immunization ( o r 60+ Years) (1 - 1-dose 60+ series) 2010 Fall Risk Screening 08/11/2015 COVID-19 Vaccine ( season) 2024 Care Teams Unified Communications Architect Relationship Specialty Start Date End Date Silvina Perdue MD [address] [place] [address] [address] [place] [phone] PCP - General 12/25/08
--- OUTSIDE RECORDS SUMMARY | 2024-04-02 21:47 | XMS_ITS | Encounter Summary ---
Author Organization [facility] Address [address] [place] [address] Care Team Providers Care Social Services Specialist Name Role Phone Silvina Perdue MD Primary Care Provider [phone] Encounter Details Date Type Department Care Team (Late st Contact Info) Description 12/08/2022 Lab Requisition [facility] Pathology & Laboratory Medicine - Main [place] [address] [place], [place] [address] Outr Resulting Lab, Provider Social History Tobacco [...] Diagnosis Comments LEGIONELLA ANTIGEN DETECTION, URINE Routine 12/07/2022 19:15 EDT documented in this encounter Results * LEGIONELLA ANTIGEN DETECTION, URINE (12/07/2022 19:15 EDT) Legionella Antigen Detection Negative Negative 12/08/2022 23:04 EDT [facility] Urine URINE / Unknown 12/07/2022 1 9:15 EDT 12/08/2022 21:27 EDT Provider Outr Resulting Lab MICROBIOLOGY - GENERAL ORDERABLES [facility] [address] [place] [address] documented in this encounter Visit Diagnoses Not on filedocumented in this encounter Care Teams Social Services Specialist Relationship Specialty Start Date End Date Silvina Perdue MD [address] [place] [phone] PCP - General 12/25/08 documented as of this encounter
--- OUTSIDE RECORDS SUMMARY | 2024-04-02 21:47 | XMS_ITS | Encounter Summary ---
Author Organization [facility] Address [address] [place] [address] Care Team Providers Care Supervisor Quilting Name Role Phone Unavailable Primary Care Provider Unavailabl e Encounter Details Date Type Department Care Team (Late st Contact Info) Description 12/23/[address] [facility] Laboratory Services - [facility] ([facility]) [address] [place] [address] [id number] Eric Josue MD [address] [place] [address] Social History Tobacco Use Types Packs/Day Years Used Date Smoking Tobacco: Never Assessed Sex and Gender Information Value Date Recorded Sex Assigned at Not on file Gender Identity Not on file Sexual Orientation Not on file documented as of this encounter Plan of Treatment Not on file documented as of this encounter Procedures Procedure Name Priority Date/Time Associated Diagnosis Comments SURGICAL PATHOLOGY Routine 12/23/2008 0:00 EDT documented in this encounter Results * SURGICAL PATHOLOGY (12/23/2008 0:00 EDT) Pathology Report: SURGICAL PATHOLOGY REPORT ? Reports generated via electronic interface contain original data; ? however they are lacking the format of the original report. ? Caution should be taken when reading/interpreting unformatted reports. ? Name: ? RAHGAVENDRA, ANDREW ? Accession #: ? [id number] ? : ? 1950 (Age: 58) ??M ? Collect Date: ? 12/23/2008 ? Location: ? [facility] ? Receive Date: ? 12/24/2008 ? Provider: ERIC JOSUE MD ? Copy to: BHARAT FOSS MD ? Final Pathologic Diagnosis: ? Esophagus, 30 cm, biopsy: ? 1. ?Squamous mucosa with acute and chronic inflammation and reactive ? atypia. ? 2. ? PAS stain is negative for organisms. ? 3. ? Fragments of columnar epithelium (gastric type). ? 4. ? No intestinal metaplasia. ? 5. ? No dysplasia identified. ? Comment: ? Metal Mockup Maker sections were shown at intradepartmental consultation ? conference. ??The surgical pathology slides ??([id number]) were reviewed. There is no malignancy identified in the current esophageal biopsy. (. ? Brownschidle)/mms ? Document reviewed and electronically signed by: ? NATALEE MOUNT MD ? Report ??Date: 12/27/2008 16:55 ? By the signature above, the attending physician certifies that he/she has ? personally conducted a gross and/or microscopic examination of the described ? specimens and rendered or confirmed the above diagnosis. ? Specimen(s) Received: ? Bx esophagus 30 cm ? Clinical History: ? 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 Gross Description: ? Received in [facility]'s fixative labelled Spender, Andrew and #1 bx ? esophagus 30 cm are six biopsies ranging in size from 0.1 x 0.1 x 0.1 cm up to 0.7 x 0.4 x 0.3 cm. ??The specimens are submitted intact as (A1) and (A2). ??(AHSAN ?? Tessitore)/ljn ? End of Report ? GIFTY HO 12/23/2008 12/24/2008 8:5 6 EDT Eric Josue MD PATHOLOGY ORDERABLE [facility] [address] [place] [address] documented in this encounter Visit Diagnoses Not on filedocumented in this encounter
--- OUTSIDE RECORDS SUMMARY | 2024-04-02 21:47 | XMS_ITS | Encounter Summary ---
Author Organization [facility] Address [address] [place] [address] Care Team Providers Care Street Roller Engineer Name Role Phone Unavailable Primary Care Provider Unavailabl e Encounter Details Date Type Department Care Team (Late st Contact Info) Description 04/15/2008 Before PRISM Converted Visit (Maple) [facility] - Maple conversion [address] [place] [address] Eric Josue MD [address] [place] [address] Social History Tobacco Use Types Packs/Day Years Used Date Smoking Tobacco: Never Assessed Sex and Gender Information Value Date Recorded Sex Assigned at Not on file Gender Identity Not on file Sexual Orientation Not on file documented as of this encounter Plan of Treatment Not on file documented as of this encounter Procedures Procedure Name Priority Date/Time Associated Diagnosis Comments SURGICAL PATHOLOGY Routine 04/15/2008 0 :00 EST documented in this encounter Results * SURGICAL PATHOLOGY (04/15/2008 0:00 EST) Pathology Report: SURGICAL PATHOLOGY REPORT ? Reports generated via electronic interface contain original data; ? however they are lacking the format of the original report. ? Caution should be taken when reading/interpretin g unformatted reports. ? Name: ? RAGHAVENDRA, ANDREW ? Accession #: ? [id number] ? : ? 1950 (Age: 57) ??M ? Collect Date: ? 04/15/2008 ? Location: ? [facility] ? Receive Date: ? 04/15/2008 ? Provider: ERIC JOSUE MD ? Copy to: BHARAT FOSS MD ? Final Pathologic Diagnosis: ? Gastroesophageal junction, 33 cm, biopsy: ? 1. ?Acute erosive esophagitis. ? 2. ? Reactive squamous and columnar (oxyntic) epithelial lined mucosal ? changes. ? 3. ? PAS-D for fungi is negative. ? 4. ? Negative for intestinal metaplasia, dysplasia and tumor. ? Document reviewed and electronically signed by: ? OC GM MBCHB ? Report ??Date: 04/18/2008 16:09 ? By the signature above, the attending physician certifies that he/she has ? personally conducted a gross and/or microscopic examination of the described ? specimens and rendered or confirmed the above diagnosis. ? Specimen(s) Received: ? Bx EG junction at 33 cm ? Clinical History: ? Unexplained iron deficiency anemia; hx Ca EG Jct 2002; S/P ? esophagogastrectomy ? Gross Description: ? Received in [place]'s fixative labelled Raghavendra and EG junction 33 cm are seven hart-pink irregular soft tissue fragments ranging from 0.3 x 0.2 x 0.2 cm to 0.5 x 0.3 x 0.2 cm. ??The specimen is submitted entirely as (A1) through ?? (A3). ??(Dr. Atkinson)/clementinek ? End of Report ? GIFTY HO 04/15/2008 04/15/2008 10: 02 EST Eric Josue MD PATHOLOGY ORDERABLE [facility] [address] [place] [address] documented in this encounter Visit Diagnoses Not on filedocumented in this encounter
--- OUTSIDE RECORDS SUMMARY | 2024-04-02 21:47 | XMS_ITS | Encounter Summary ---
Author Organization [facility] Address [address] [place] [address] Care Team Providers Care Harmonica Maker Name Role Phone Silvina Perdue MD Primary Care Provider Encounter Details Date Type Department Care Team (Late st Contact Info) Description 10/13/2021 Lab Requisition [facility] Pathology & Laboratory Medicine - [facility] [address] [place], [place] [address] Outr Resulting Lab, Provider Social History Tobacco [...] Procedure Name Priority Date/Time Associated Diagnosis Comments CCP ANTIBODIES Routine 10/13/2021 7:35 EDT ANCA, IFA Routine 10/13/2021 7:35 EDT ANTI NUCLEAR AB (CHARLY), IFA Routine 10/13/2021 7:35 EDT documented in this encounter Results * ANCA, IFA (10/13/2021 7:35 EDT) Lab ANCA Interpretation Negative Negative 10/14/2021 15:22 EDT [facility] Comment: CHARLY Positive, suggest follow-up CHARLY testing if clinically indicated. Cannot rule out Atypical ANCA (A-ANCA). No titer performed, ANCA Screen is negative. Results were obtained with the INOVA NOVA Lite ANCA kit by indirect immunofluorescence. Blood VENOUS BLOOD / Unknown 10/13/2021 7:35 EDT 10/13/2021 18:02 EDT Provider Outr Resulting Lab IMMUNOLOGY A ND SEROLOGY ORDERABLES Performing Organization Address [facility] de Phone Number [facility] [address] [place] [address] * (ABNORMAL) ANTI NUCLEAR AB (CHARLY), IFA (10/13/2021 7:35 EDT) CHARLY Interpretation Positive(A) Negative 10/14/2021 15:29 EDT [facility] Comment: For titers greater than or equal to 1:160 (except the centromere and nucleolar patterns) it is recommended that specific follow-up autoantibody testing ??(such as for dsDNA and Extractable Nuclear Antigens) be performed on all diffuse and/or speckled patterns NOTE: For add-on testing dsDNA is stable for 7 days refrigerated while Extractable Nuclear Antigens are only stable for 48 hours refrigerated. Cytoplasmic Pattern Noted, Speckled CHARLY Titer and Pattern 1 1:640 Homogeneous 10/14/2021 15:29 EDT [facility] Blood VENOUS BLOOD / Unknown 10/13/2021 7:35 EDT 10/13/2021 18:02 EDT Narrative [facility] - 10/14/2021 15:29 EDT Results were obtained with the INOVA NOVA Lite HEp-2 CHARLY Kit by indirect immunofluorescence. Provider Outr Resulting Lab IMMUNOLOGY A ND SEROLOGY ORDERABLES Performing Organization Address [facility] Co de Phone Number [facility] [address] [place] [address] * CCP ANTIBODIES (10/13/2021 7:35 EDT) CCP Antibodies <2.5 <5.0 U/mL 10/14/2021 9:39 EDT [facility] Blood VENOUS BLOOD / Unknown 10/13/2021 7:35 EDT 10/13/2021 18:02 EDT Provider Outr Resulting Lab IMMUNOLOGY A ND SEROLOGY ORDERABLES [facility] [address] [place] [address] documented in this encounter Visit Diagnoses Not on filedocumented in this encounter Care Teams Harmonica Maker Relationship Specialty Start Date End Date Silvina Perdue MD [address] [place] [phone] PCP - General 12/25/08 documented as of this encounter
--- OUTSIDE RECORDS SUMMARY | 2024-04-02 21:47 | XMS_ITS | Encounter Summary ---
Author Organization [facility] Address [address] [place] [address] Care Team Providers Care Truck Car And Bus Cleaner Name Role Phone Slivina Perdue MD Primary Care Provider [phone] Encounter Details Date Type Department Care Team (Late st Contact Info) Description 09/03/2022 Lab Requisition [facility] Pathology & Laboratory Medicine - [facility] [address] [place], [place] [id number] Outr Resulting Lab, Provider Social History Tobacco [...] Procedure Name Priority Date/Time Associated Diagnosis Comments SPEP, INCLUDES QUANTITATION OF MONOCLONAL SPIKE PERFORMABLE Today 09/03/2022 6:27 EDT IMMUNOTYPING, SERUM Today 09/03/2022 6 :27 EDT SPEP, INCLUDES QUANTITATION OF MONOCLONAL SPIKE Routine 09/03/2022 6:27 EDT PROTEIN, TOTAL Today 09/03/2022 6:27 EDT documented in this encounter Results * IMMUNOTYPING, SERUM (09/03/2022 6:27 EDT) Immunotyping, Serum Current Interpretation : Negative for monoclonal immunoglobulin s. Reviewed by: Parth Delaney MD, PhD 09/06/2022 13:39. [facility] VENOUS BLOOD / Unknown 09/03/2022 6:27 EDT 09/03/2022 19:27 EDT Provider Outr Resulting Lab CHEMISTRY & BLOOD GAS ORDERABLES [facility] [address] [place] [address] * (ABNORMAL) SPEP, INCLUDES QUANTITATION OF MONOCLONAL SPIKE PERFORMABLE (09/03/2022 6:27 EDT) Albumin % 38.3(L) 55.8 - 66.1 % 09/06/2022 15:26 [facility] Albumin g/dL 2.1(L) 3.6 - 5.2 g/dL 09/06/2022 15:26 [facility] Alpha-1 % 8.9(H) 2.9 - 4.9 % 09/06/2022 15:26 [facility] Alpha-1 g/dL 0.50(H) 0.15 - 0.40 g/dL 09/06/2022 15:26 [facility] Alpha-2 % 15.0(H) 7.1 - 11.8 % 09/06/2022 15:26 [facility] Alpha-2 g/dL 0.80 0.50 - 1.00 g/dL 09/06/2022 15:26 [facility] Beta % 15.5(H) 8.4 - 13.1 % 09/06/2022 15:26 [facility] Beta g/dL 0.90 0.60 - 1.20 g/dL 09/06/2022 15:26 [facility] Gamma % 22.3(H) 11.1 - 18.8 % 09/06/2022 15:26 [facility] Gamma g/dL 1.20 0.60 - 1.60 g/dL 09/06/2022 15:26 [facility] SPEP Comment Suspicious pattern seen on protein electrophoresis, immunotyping added by reflex. 09/06/2022 15:26 EDT [facility] Comment:See scanned/suppleme ntary report. Total Protein 5.6(L) 6.3 - 8.2 g/dL 09/06/2022 15:26 EDT [facility] Blood VENOUS BLOOD / Unknown 09/03/2022 6:27 EDT 09/03/2022 19:27 EDT Provider Outr Resulting Lab CHEMISTRY & BLOOD GAS ORDERABLES Performing Organization Address [facility] de Phone Number [facility] [address] [place] [address] * PROTEIN, TOTAL (09/03/2022 6:27 EDT) Blood VENOUS BLOOD / Unknown 09/03/2022 6:27 EDT 09/03/2022 19:27 EDT Provider Outr Resulting Lab CHEMISTRY & BLOOD GAS ORDERABLES Performing Organization Address [facility] Co de Phone Number [facility] [address] [place] [address] documented in this encounter Visit Diagnoses Not on filedocumented in this encounter Care Teams Truck Car And Bus Cleaner Relationship Specialty Start Date End Date Silvina Perdue MD [address] [place] [phone] PCP - General 12/25/08 documented as of this encounter
--- OUTSIDE RECORDS SUMMARY | 2024-04-02 21:47 | XMS_ITS | Encounter Summary ---
Author Organization [facility] Address [facility] [place] [address] Care Team Providers Care Carbon Setter Name Role Phone Silvina Perdue MD Primary Care Provider [phone] Encounter Details Date Type Department Care Team (Late st Contact Info) Description 08/07/2008 Orders [place] [id number] Shaun De Los Santos MD [address] [place] [address] Social History Tobacco Use Types Packs/Day Years Used Date Smoking Tobacco: Never Assessed Sex and Gender Information Value Date Recorded Sex Assigned at Not on file Gender Identity Not on file Sexual Orientation Not on file documented as of this encounter Plan of Treatment Not on file documented as of this encounter Procedures Procedure Name Priority Date/Time Associated Diagnosis Comments NON-MANAGER CRITICAL CARE FINAL REPORT Routine 08/14/2008 3:22 PM EDT documented in this encounter Results * Non-Video Game Engineer Final Report (08/14/2008 3:22 PM EDT) Non-Video Game Engineer Final Report [id number] ? Location: 1EST; 0134; B The signing pathologist has (i) examined the relevant preparation(s) for the specimen(s) and (ii) rendered or confirmed the diagnosis(es). . ? Pathology Non-Video Game Engineer Cytology Final Report Clinical Information Specimen Source: ?Pancreas/FNA Clinical History/Impression : ?? Pancreatic pseudo cyst ?? Pancreatitis, hx of esophageal ca Gross Description: ?? Received ??fresh, approximately 30 ml. total volume of ?? cloudy, black fluid. ?Total Preparation: Liquid Based Prep 1; Cell Block 1. Interpretation Specimen submitted is satisfactory. Diagnosis See Comment 08/15/08 ?Screened by: ? SLA ?Rescreened by: ?? SBT 08/15/08 ?Verified by: ? Malena Cuevas MD. ? Cytopathologist ? (Electronic Signature) Comment Pancreas, Cyst, Endoscopic Ultrasound Guided Fine Needle Aspirate: ? Brown needle shaped crystals and debris. ? No intact cellular elements identified. The crystals may represent bile or blood break down products. ??The material is compatible with pseudocyst. HA HUANG 08/14/2008 3:22 PM EDT Shaun De Los Santos MD PATHOLOGY/CYTOLOGY ORDERABLES HA HUANG documented in this encounter Visit Diagnoses Not on filedocumented in this encounter Additional Health Concerns Infection Onset Date Last Indicated Resolved Time Rule Out COVID-19 04/13/2021 04/13/2021 04/13/2021 8:19 PM EST COVID-19 Comment:Date of symptom onset: unknown Date of positive test: 04/10/21 Estimated date patient will be eligible for precaution removal: 04/21/21 Please contact [facility] at [email or web address] before discontinuing Airborne and Contact Precautions. 04/13/2021 04/13/2021 05/04/2021 8:[address] documented as of this encounter Care Teams Carbon Setter Relationship Specialty Start Date End Date Silvina Perdue MD [address] [facility] [address] [place] [address] PCP - General 04/28/10 documented as of this encounter
--- OUTSIDE RECORDS SUMMARY | 2024-04-02 21:47 | XMS_ITS | Encounter Summary ---
Author Organization [facility] Address [address] [place] [address] Care Team Providers Care Stacker Driver Name Role Phone Silvina Foss MD Primary Care Provider [phone] Encounter Details Date Type Department Care Team (Late st Contact Info) Description 08/19/2005 Results Only [facility] - Maple conversion [address] [place] [address] Eric Josue MD [address] [place] [address] Social History Tobacco Use Types Packs/Day Years Used Date Smoking Tobacco: Never Assessed Sex and Gender Information Value Date Recorded Sex Assigned at Not on file Gender Identity Not on file Sexual Orientation Not on file documented as of this encounter Plan of Treatment Not on file documented as of this encounter Procedures Procedure Name Priority Date/Time Associated Diagnosis Comments SURGICAL PATHOLOGY Routine 08/19/2005 0:00 EST documented in this encounter Results * SURGICAL PATHOLOGY (08/19/2005 0:00 EST) Pathology Report: SURGICAL PATHOLOGY REPORT Reports generated via electronic interface contain original data; however they are lacking the format of the original report. Caution should be taken when reading/interpreting unformatted reports. Name: ? ANDREW MABRY ? Accession #: ? [id number] ? : ? 1950 (Age: 55) ??M ? Collect Date: ? 08/19/2005 ? Location: ? [facility] ? Receive Date: ? 08/20/2005 ? Provider: ERIC JOSUE MD Copy to: SILVINA FOSS MD ? Final Pathologic Diagnosis: ? Esophagus, 37 cm, biopsies: 1. ?Squamocolumnar mucosa with rare intraepithelial eosinophils consistent with reflux esophagitis. ? 2. ?? Reactive epithelial changes. Document reviewed and electronically signed by: RUDY EMMANUEL MD Report ??Date: 08/23/2005 17:53 By the signature above, the attending physician certifies that he/she has personally conducted a gross and/or microscopic examination of the described specimens and rendered or confirmed the above diagnosis. Specimen(s) Received: ? Bx esophagus 37 cm Clinical History: ? 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 Received in [place]'s fixative labeled Jorge Luis and 37 cm esophagus bx are four hart-pink tissues averaging 0.2 x 0.2 x 0.2 x 0.1 cm, submitted in toto as (A1) ??(A2). ??(Yo Lares)/[facility] End of Report GIFTY HO 08/19/2005 08/20/2005 8:4 0 EST Eric Josue MD PATHOLOGY ORDERABLE S [facility] [address] [place] [address] documented in this encounter Visit Diagnoses Not on filedocumented in this encounter Care Teams Stacker Driver Relationship Specialty Start Date End Date Silvina Foss MD [address] [place] [phone] PCP - General 12/25/08 documented as of this encounter
--- OUTSIDE RECORDS SUMMARY | 2024-04-02 21:47 | XMS_ITS | Encounter Summary ---
Author Organization [facility] [place] [address] [place] [address] Care Team Providers Care Fingernail Former Name Role Phone Silvina Perdue MD Primary Care Provider [phone] Reason for Visit * Reason Comments Mouth Lesions Encounter Details Date Type Department Care Team (Late st Contact Info) Description 2011 2:00 PM EST Office Visit Dermatology [address] [place], [place] [id number] Dandy Emerson MD [address], [place] [address] Glossitis (Primary Dx) Social History Tobacco Use Types Packs/Day Years Used Date Smoking Tobacco: Former Sex and Gender Information Value Date Recorded Sex Assigned at Not on file Gender Identity Not on file Sexual Orientation Not on file documented as of this encounter Progress Notes * Dandy Emerson MD - 2011 2:40 PM EST Problem: Followup glossitis. Ilia follows up and has noted some improvement. He has had partial regrowth of the papillae on the dorsal tongue. They were absent almost from the entire dorsum of the tongue from the base to the tip, but now only the middle third of the dorsal tongue remains without papillae. Physical examination confirms regrowth and reformation of the papillae over much of his tongue but the central one-third of the tongue from the base to the tip remains without. Assessment & Plan: Glossitis, improved. a. Again encouraged patient to cut back on alcohol which he states is 3-4 beers a day. b. Also encouraged him to quit smoking which he states is one pack a day. We discussed the smoking cessation program and Christine Laughlin. c. Continue for now the Fluocinonide Gel applying on a BID basis to his tongue. He still has 30gm left at home. I gave him another prescription today for 30gm with one refill just to have on hand. d. Continue with a multivitamin one a day which he has been taking every morning. e. RTC on a p.r.n. basis. He will call me in another month if he is not seeing resolution of his glossitis. Copy: Silvina Perdue MD documented in this encounter Plan of Treatment Not on file documented as of this encounter Visit Diagnoses Diagnosis Glossitis- Primary documented in this encounter Care Teams Fingernail Former Relationship Specialty Start Date End Date Silvina Perdue MD [facility] [address] [place] [address] PCP - General 04/28/10 documented as of this encounter
--- OUTSIDE RECORDS SUMMARY | 2024-04-02 21:47 | XMS_ITS | Encounter Summary ---
Author Organization [facility] Address [address] [place] [address] Care Team Providers Care Mechanical Engineering Teacher Name Role Phone Silvina Perdue MD Primary Care Provider [phone] Encounter Details Date Type Department Care Team (Late st Contact Info) Description 07/19/2022 Lab Requisition [facility] Pathology & Laboratory Medicine - [place] [address] [place], [place] [address] Outr Resulting Lab, Provider Social History Tobacco [...] Diagnosis Comments LEGIONELLA ANTIGEN DETECTION, URINE Routine 07/19/2022 16:00 EST documented in this encounter Results * LEGIONELLA ANTIGEN DETECTION, URINE (07/19/2022 16:00 EST) Legionella Antigen Detection Negative Negative 07/20/2022 20:12 EST [facility] Urine URINE / Unknown 07/19/2022 1 6:00 EST 07/20/2022 17:12 EST Provider Outr Resulting Lab MICROBIOLOGY - GENERAL ORDERABLES [facility] [address] [place] [address] documented in this encounter Visit Diagnoses Not on filedocumented in this encounter Care Teams Mechanical Engineering Teacher Relationship Specialty Start Date End Date Silvina Perdue MD [address] [place] [phone] PCP - General 12/25/08 documented as of this encounter
--- OUTSIDE RECORDS SUMMARY | 2024-04-02 21:47 | XMS_ITS | Encounter Summary ---
Author Organization [facility] Address [address] [place] [address] Care Team Providers Care Zone Maintenance Technician Name Role Phone Silvina Perdue MD Primary Care Provider [phone] Encounter Details Date Type Department Care Team (Late st Contact Info) Description 10/12/2021 Lab Requisition [facility] Pathology & Laboratory Medicine - [facility] [address], [place] [id number] Outr Resulting Lab, Provider Social History Tobacco [...] Procedure Name Priority Date/Time Associated Diagnosis Comments CORTISOL Routine 10/12/2021 6:26 EDT documented in this encounter Results * CORTISOL (10/12/2021 6:26 EDT) Cortisol 11 See Note ug/dL 10/12/2021 18:15 EDT [facility] Comment: NOTE: Reference Ranges (from [facility] IF[facility]): Collected Before 10:00 AM: ??4 - 23 ug/dL Collected After 5:00 PM: ?2 - 14 ug/dL The results of this assay can be falsely elevated due to the consumption of Biotin. Blood VENOUS BLOOD / Unknown 10/12/2021 6:26 EDT 10/12/2021 17:26 EDT Provider Outr Resulting Lab CHEMISTRY & BLOOD GAS ORDERABLES [facility] [address] [place] [address] documented in this encounter Visit Diagnoses Not on filedocumented in this encounter Care Teams Zone Maintenance Technician Relationship Specialty Start Date End Date Silvina Perdue MD [address] [place] [phone] PCP - General 12/25/08 documented as of this encounter
--- OUTSIDE RECORDS SUMMARY | 2024-04-02 21:47 | XMS_ITS | Encounter Summary ---
Author Organization [facility] [place] [address] Care Team Providers Care Repairer Welding Systems [employer] Equipment Name Role Phone Silvina Perdue MD Primary Care Provider [phone] Reason for Visit * Reason Comments Skin Problem Encounter Details Date Type Department Care Team (Late st Contact Info) Description 07/13/2011 4:00 PM EST Office Visit Dermatology [address] [place], [place] [id number] Dandy Emerson MD [address], [place] [address] Glossitis (Primary Dx) Social History Tobacco Use Types Packs/Day Years Used Date Smoking Tobacco: Former Sex and Gender Information Value Date Recorded Sex Assigned at Not on file Gender Identity Not on file Sexual Orientation Not on file documented as of this encounter Progress Notes * Dandy Emerson MD - 07/13/2011 4:40 PM EST Problem: Glossitis. 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 It is painful at times and he sprays Vicks on it for relief to numb it up. The patient is referred today in consultation by Dr. Perdue who has tested for B-12 and Folic Acid levels and found them to be fine. The patient states that his medication profile has been unchanged for the last 4-5 months. He does drink six beers a night he states and smokes about a pack of cigarettes a day. He denies any hospitalization or medical illnesses about 4-5 months ago. He states that he usually eats about two meals a day. He goes to a meal center at about 11 o'clock and for supper at home might eat hot dogs, hamburgers, pizza, potatoes and apples. His main meal seems to be the meal center food that is provided. He also has had a denture top plate only for his dentition for the last four years. He has no bottom plate. Physical examination reveals a 60-year-old gentleman who has loss of papillae of the base of the tongue dorsally and extending out to almost the tip. The peripheral rim papillae are preserved. He has no intraoral lesions. There appears to be no lateral tongue involvement. He has no dermatitis elsewhere. He has no stigmata of psoriasis. Assessment & Plan: Glossitis. a. Potential etiology could include his alcohol intake even his cigarette smoking could play a role, I am certainly concerned about his vitamin status. Niacin deficiency could before causing pellagra cause glossitis. b. Recommended that we begin a multivitamin one a day on a regular basis. c. Begin Fluocinonide Gel applying on a BID basis to tongue. d. Encouraged him to cut back on his alcohol intake and cut back on smoking. e. RTC in a month and a half for repeat check. Copy: Silvina Perdue MD documented in this encounter Plan of Treatment Not on file documented as of this encounter Visit Diagnoses Diagnosis Glossitis- Primary documented in this encounter Care Teams Repairer Welding Systems And Equipment Relationship Specialty Start Date End Date Silvina Perdue MD [facility] [address] [place] [address] PCP - General 04/28/10 documented as of this encounter
--- OUTSIDE RECORDS SUMMARY | 2024-04-02 21:47 | XMS_ITS | Referral Summary ---
Author Organization [facility] Address [address] [place] [address] Care Team Providers Care Biomedical Equipment Support Specialist Name Role Phone Silvina Perdue MD Primary Care Provider [phone] Social History Tobacco Use Types Packs/Day Years Used Date Smoking Tobacco: Never Assessed Sex and Gender Information Value Date Recorded Sex Assigned at Not on file Gender Identity Not on file Sexual Orientation Not on file Plan of Treatment Not on file Care Teams Biomedical Equipment Support Specialist Relationship Specialty Start Date End Date Silvina Perdue MD [address] [place] [address] [address] [place] [phone] PCP - General 12/25/08
--- OUTSIDE RECORDS SUMMARY | 2024-04-02 21:47 | XMS_ITS | Encounter Summary ---
Author Organization [facility] Address [address] [place] [address] Care Team Providers Care Dump Attendant Name Role Phone Silvina Perdue MD Primary Care Provider [phone] Encounter Details Date Type Department Care Team (Late st Contact Info) Description 11/17/2022 Lab Requisition [facility] [place] [facility] Pathology & Laboratory Medicine - [facility] [place] [address] [place], [place] [phone] Outr Resulting Lab, Provider Social History Tobacco [...] Diagnosis Comments LEGIONELLA ANTIGEN DETECTION, URINE Routine 11/17/2022 11:53 EDT documented in this encounter Results * LEGIONELLA ANTIGEN DETECTION, URINE (11/17/2022 11:53 EDT) Legionella Antigen Detection Negative Negative 11/17/2022 23:55 EDT [facility] Urine URINE / Unknown 11/17/2022 1 1:53 EDT 11/17/2022 22:01 EDT Provider Outr Resulting Lab MICROBIOLOGY - GENERAL ORDERABLES [facility] [address] [place] [address] documented in this encounter Visit Diagnoses Not on filedocumented in this encounter Care Teams Dump Attendant Relationship Specialty Start Date End Date Silvina Perdue MD [address] [place] [phone] PCP - General 12/25/08 documented as of this encounter
--- OUTSIDE RECORDS SUMMARY | 2024-04-02 21:47 | XMS_ITS | Encounter Summary ---
Author Organization [facility] [place] [address] Care Team Providers Care Auto Transmission Specialist Name Role Phone Silvina Perdue MD Primary Care Provider [phone] Reason for Visit * Auth/Cert Specialty Diagnoses / Procedures Referred By Viridiana richards Referred To Contact Diagnoses Acute upper GI bleed UPPER GIB GI Bleed per CR Procedures EGD, UPPER GI ENDOSCOPY Referral ID Status Reason Start Date Expiration Date Visits Re quested Visits Authorized [id number] 1 1 Encounter Details Date Type Department Care Team (Late st Contact Info) Description 09/13/2017 3:30 PM EDT - 09/13/2017 4:00 PM EDT Surgery [place] [address] Marixa Vidales MD [facility] [place] [address] EGD, UPPER GI ENDOSCOPY (WRVU 2.09) Social [...] Nain Kang Patient Age: 67 y.o. Language: Hong Konger Race: White Ethnicity: Not nor Admit date: [...] please contact your inpatient physician through the [facility] [employer] . Issues afterhours and on weekends will [...] back pain on chronic opiates??who presents to [facility] today withupper GI bleed. ?? He was dropped off to [facility] by a friend, and is a [...] had an episode of hematemesis in the [facility] ED, and received Protonix, 4uPRBC and FFP. He was transferred to [facility] ICU via [facility] and received Tranexamic acid en route. ?? In [facility] ICU (09/13-09/14), he was hemodynamically stable. He [...] distal esophagus. LA Grade A esophagitis. Hematin (altered??blood/jomfom-nsvbki-eksv material) in the gastric fundus.Blood in the [...] Your Primary Care Provider: Silvina Perdue MD [phone] For questions regarding this document or issues relating to this hospitalization on the Medical Service, please contact your inpatient physician through the [facility] [employer] . Issues afterhours and on weekends will be handled by the Hospitalist staff on-call. General Instructions None Future Appointments and Orders Future Orders Complete By Expires Referral to Home Health - at DISCHARGE [EUE6706 CPT(R)] As directed Process Instructions: Scheduling Instructions: Comments: DOCUMENTATION FOR VNA SERVICES (INCLUDING THOSE PATIENTS WITH MEDICARE COVERAGE REQUIRING HOME VNA SERVICES AND/OR HOSPICE SERVICES) PATIENT'S LOCATION: [address] [address] (home) Cell: Telephone Information: Special Education Aide's Name: self In discussion with the attending physician, it is certified that this patient is under their care and that they, or a Nurse Practitioner,Clinical Nurse specialist or Physician Break Off Worker who is working directly with them, had [...] for managing ADL's. HOME HEALTH CARE AGENCY: [facility] PHONE: [phone] FAX: [phone] Start of care: 24-48 hours post discharge [...] PCP: MD Néstor [address] / [facility] [id number] All A agencies which cover the area of patient's residence have been reviewed, either verbally naye writing, and patient/family have chosen the home health care agency noted Questions: Agency name and contact information: [facility] Patient location post discharge: home What services are requested: Registered Nurse Physical Therapy Occupational Therapy Start date: Responsible MD post discharge contact info: PCP Walker standard [EQ135 Custom] As directed Process Instructions: Scheduling Instructions: Comments: Nain Kang [address] [facility] [address] (home) Telephone Information: Diagnosis:Fluid vol [...] Your Primary Care Provider: Silvina Perdue MD [phone] For questions regarding this document or issues relating to this hospitalization on the Medical Service, please contact your inpatient physician through the [facility] [employer] . Issues afterhours and on weekends will [...] picked pt up. Safety maintained. VNA services ([facility]) called to give report, left a message [...] spent >30 minutes (Day of Discharge Code 18813) involved in the final examination of the [...] PM EDT Patient to dc now The patient/eligibility services representative has been provided a list of Home Health Agencies/DME vendors which servetheir preferred geographic area. A letter describing our affiliations was reviewed with them and they were educated about their right to choose where referrals are placed. Patient requests referral to: [facility] Expected date of discharge:Now. Referral routed to the Shift Nurse Manager for matching with agency/vendor and to provide [...] of GI bleed EL CONNORS MD TEAM/PAGER: [phone] Subjective/24hr events: - Hgb stable - No [...] 09/19/17 1418 Last data filed at 09/19/17 0588 Gross per 24 hour Intake 720 ml Output 1425 ml Net -705 ml EXAM GEN: NAD HEENT: at/nc, anicteric, op clear CV: rrr, no m/r/g PULM: cta b/l, comfortable ABD: soft, nt/nd, nabs, surgical scars EXT: no edema BACK: Non tender today Neuro: Alert/oriented/appropriate Skin: no rash LABS: Reviewed in eDH. Remarkable for the following: Recent Labs 09/19/17 0534 09/18/17 0645 09/18/178 09/17/17 0450 WBC 10.0* -- 10.6* -- [...] - Hematemesis this AM - ~200cc ; eliisadora held, ASA held - Endoscopy done, likely [...] Recent Labs 09/18/17 0645 09/18/17 0148 09/17/17 8848 09/17/170 09/16/17 0115 WBC -- 10.6* -- 11.1* [...] - Pending report Medications: Scheduled Meds: ??? [AUG Hold] pantoprazole 40 mg Intravenous BID ??? [AUG [...] of GI bleed EL CONNORS MD TEAM/PAGER: [phone] Subjective/24hr events: - Hgb stable,has severe low [...] No complaints of pain or discomfort. * Zeke Kerry Awad, DT - 09/16/2017 3:46 PM EDT Nutrition [...] Klein MD - 09/16/2017 12:19 PM EDT [facility] Medicine Attending Daily Progress Note Admit [...] GASTROENTEROLOGY & HEPATOLOGY PROGRESS NOTE Nain Kang [id number] 1950 ID: 67 y.o. male with PMH significant for CAD s/p CABG in 2000 on aspirin, atrial fibrillation on eliquis, DM, alcohol abuse, pancreatitis with pseudocyst, COPD, surgical flap infection with rib removal, chronic narcotic use who is admitted to [facility] for GI bleeding. Of note, the medical [...] (per patient report) who is admitted to [facility] for GI bleeding. On EGD yesterday there [...] Dr. Vidales. Estrellita Gonzales MD Gastroenterology Fellow #[id number] Associated attestation - Marixa Vidales MD - [...] examined on critical care rounds. Transferred from [facility] ([facility]) yesterday for GI bleeding - dark [...] this encounter H&P Notes * Cristela Hitchcock Kvng - 09/18/2017 1:19 PM EDT Gastroenterology [...] neurologic complication, without long-term current use of lpumofcU39.49 ??? Pancreatitis c/b pseudocyst/cyst 2004 K86.2, K86.3 [...] patient. ID: 67 y.o. Male presents to [facility] with UGIB History of Present Illness: HPI 67 y/o M with PMHx CAD s/p 4v CABG on ASA, Afib on Eliquis, DM2 c/b neuropathy, Etoh use, pancreatitis w/ pseudocyst n 2003, COPD, gastric cancer (s/p ?partial gastrectomy in 2000, c/b surgical flap infection and removal of 4 left ribs), back pain on chronic opiates??who presents to [facility] today withupper GI bleed. He was dropped off to [facility] by a friend, and is a [...] had an episode of hematemesis in the [facility] ED, and received Protonix, 4uPRBC and FFP. He was transferred to [facility] ICU via [facility] and received Tranexamic acid en route. In [facility] ICU (09/13-09/14), he was hemodynamically stable. He [...] ENDOSCOPY performed by Marixa Vidales MD at [facility] ENDOSCOPY Prior To Admission Medications: Prescriptions Prior [...] distal esophagus. LA Grade A esophagitis. Hematin (altered??blood/ouzpcc-xicunb-mygn material) in the gastric fundus.Blood in the [...] on home , who pres ents to [facility] with hemodynamically unstable upper GI bleed, and was transferred to [facility] ICU for urgent GI evaluation. EGD 09/13 [...] PO consistently. # Chronic back pain: On Midkiff at home reportedly - will hold for now. Would career guidance counselor re continuing to avoid NSAIDs Admit [...] Consent signed. Estrellita Gonzales MD Gastroenterology Fellow #[id number] * Vera Ortiz PA - 09/13/2017 2:25 [...] pain on chronic opiates who presents to [facility] today with upper GI bleed. HPI: [...] had one episode of hematemesis in the [facility] ED. [facility] called for transfer. He received protonix, 4U RBC and FFP at the OSH. He was transported by [facility] in stable condition and received tranexamic [...] 13, 2017 Critical Care Green Team (pager [phone]) Dr. Hood is the attending of record [...] that pt ready for transfer back to [address] documented in this encounter Miscellaneous Notes [...] chronic opiates who presents in transfer from [facility] today with upper GI bleed Precautions/Restrictions: [...] with assist, home with home health LYNDSAY Delmi HARP PAINT PREPPER Pager: [phone] Inpatient Physical Therapy 09/20/17 1132 Rehab Evaluation [...] chronic opiates who presents in transfer from [facility] today with upper GI bleed Precautions/Restrictions fall Treatment Number PT 2 Vital Signs SpO2 95 % O2 Device RA Pain Scale/Rating Pain Assessment Scale Numbers (Numeric Rating Pain Scale) Pain Level 0 Mobility Assessment/Training Additional Documentation Gait Assessment/Treatment (Group);Transfer Assessment/Treatment (Group) Transfer Assessment/Treatment [place] (Sit-Stand Transfers) supervision required [place] (Stand-Sit Transfers) supervision required Uam-Acrdf-Pbp Assistive Device (Transfers) rolling walker (vs no AD) Impairments (Transfers) ROM (range of motion) decreased;strength decreased (endurance) Gait Assessment/Treatment [place] (Gait) supervision required Assistive Device (Gait) rolling [...] 5 - 7 days Gait Training Goal, Belknap Level conditional independence Gait Training Goal, Assist [...] chronic opiates who presents in transfer from [facility] today with upper GI bleed Precautions/Restrictions: [...] with assist, home with home health Pager: [phone] Meredith Campo OT 09/20/2017 Occupational Therapy Rehabilitation [...] chronic opiates who presents in transfer from [facility] today with upper GI bleed Hearing [...] Testing Assessment Detail BUE 4/5 shoulders > 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 Gait Assessment/Treatment [place]ap (Gait) supervision required Assistive Device (Gait) rolling walker Comment (Gait) Pt ambulated to/from bathroom; no LOB observed. ADL Assessment/Intervention Additional Documentation Bathing Assessment/Training (Group);Grooming Assessment/Training (Group);Lower Body Dressing Assessment/Training (Group);Toileting Assessment/Training (Group);Upper Body Dressing Assessment/Training (Group) Bathing Assessment/Training Belknap Level (Bathing) minimum assist (75% patient effort) Comment (Bathing) Pt reports he has been able to wash without assist Upper Body Dressing Assessment/Training [place] Level (UB Dressing) independent Lower Body Dressing Assessment/Training [place] Level (LB Dressing) conditional independence Comment (LB Dressing) FWW for balance during pants hike Toileting Assessment/Training [place] Level (Toileting) conditional independence Comment (Toileting) pt managed clothing and hygiene without assist Grooming Assessment/Training [place] Level (Grooming) set up required Comment (Grooming) [...] Outcome: Ongoing (Interventions Implemented as Appropriate) 09/20/17 3961 Coping/Psychosocial Plan Of Care Reviewed With patient [...] the epigastric area after dinner. Tums admin. MD aware. New med order acknowledged, see MAR. [...] Ongoing (Interventions Implemented as Appropriate) 09/18/17 11409/18/17 162 Safety Interventions Isolation Precautions -- standard precautions [...] ptw/ ~200cc hemoptysis, bright red blood - ONLINE EDUCATION MANAGER made aware. Pt made NPO, maint IVF initiated & infusing per orders. H&H drawn x2, 2pt drop within 24hr period - see results review. ONLINE EDUCATION MANAGER & Life Safety RN notified. 1u pRBCs ordered & administered. Repeat H&H drawn, awaiting results (see results review). Per ONLINE EDUCATION MANAGER, GI to follow up this a.m. Sleeping [...] at 0330. Medicine team [phone] paged [phone]. Midkiff added to PRN, pt states that he [...] frequent visual checks Surveillance [continuous indirect monitoring]: [facility] ICU Patient-specific fall prevention interventions for sensory [...] chronic opiates who presents in transfer from [facility] today with upper GI bleed Precautions/Restrictions: [...] with home health MALENA SHI, PT Pager: [phone] Inpatient Physical Therapy 2017 PT Evaluation Code [...] neurologic complication, without long-term current use of vosyvyoD07.49 ??? Pancreatitis c/b pseudocyst/cyst 2003 K86.2, K86.3 [...] COPD, gastric cancer (s/p ?partial gastrectomy in 2001, c/b surgical flap infection and removal of 4 left ribs), back pain on chronic opiates who presents in transfer from [facility] today with upper GI bleed Precautions/Restrictions [...] (see comments) (flat bed, seat deflate) Scoot/Bridge Belknap (Bed Mobility) supervision required;verbal cues required (donned pants) Yasqqd-tx-Sdt [place] (Bed Mobility) supervision required Comment (Bed Mobility) cues for initiation of movement Transfer Assessment/Treatment Bed-Chair Belknap (Transfers) contact guard assist Knk-Ogeey-Bbe Assistive Device (Transfers) rolling walker [place] (Sit-Stand Transfers) contact guard assist [place] (Stand-Sit Transfers) contact guard assist Wax-Xovlw-Mvz Assistive Device (Transfers) rolling walker Comment (Transfers) cues for initiation of movement Gait Assessment/Treatment [place] (Gait) contact guard assist Assistive Device (Gait) [...] good balance Sitting Balance: Dynamic good balance Vgl-qc-Olbpu Balance fair balance Standing Balance: Static good [...] 5 - 7 days Gait Training Goal, Belknap Level conditional independence Gait Training Goal, Assist [...] used to select the disability modifier. Mr. Kang's current G-Code functional level is 0% impaired based upon [facility] * Plan of Care - Roxann Alanis [...] Outcome: Ongoing (Interventions Implemented as Appropriate) 09/13/17 1838 Gastrointestinal Bleeding Problems Assessed (GI Bleeding) all OUTCOME EVALUATION NOTE: OUTCOME SUMMARY: Pt arrived via [facility] from [facility], A/Ox4, 2LNC, received 4U of PRBC's [...] by Zack Hood MD on 09/13/17 @ 9073 Reason for Hospitalization: <principal problem not specified> Per ICU H&P admit note: 67 y.o. male with a PMH significant for CAD (s/p 4 vessel CABG, on aspirin), afib (on eliquis), DM2, EtOH use (pancreatitis with pseudocyst in 2003), COPD, esophageal cancer (s/p esophagogastrectomy in 2000, c/b surgical flap infection and removal of 4 left ribs), back pain on chronic opiates who presents to [facility] today with upper GI bleed. Vera Ortiz PA No past medical history on file. Hospitalizations within the Past 30 Days: No [facility] admits in last 30 days. Transferred from [facility] to [facility] on 4/10 Anticipated Length Of Stay (If known): TBD Current Decision-Making Capacity: Patient is A&Ox3 with some confusion, poor historian He has current decision making capacity. Advance Care Planning: Full Code No AD in EPIC. CM will provided advance directive booklet and forms to patient and/or family and will discuss at alater time. [place] surrogacy law and process of guardianship will also be discussed If AD's have not been completed then (Patt Kang-/sister [phone] (h)) would be surrogate decision maker per [place] surrogate decision making law. Any patient receiving care at [facility] must abide by [place] law. The hierarchy for surrogate decision making [...] (i) The agent with financial power of transactional attorney or a conservator appointed in accordance with RSA 464-A. (j) The guardian of the patient???s estate. Current Coping/Education/Information Needs: Current coping questions and concerns have been addressed with patient and/or their family. They understand that when he moves to a regular floor he will work with another field nurse case manager until discharge. I really can't read. I [...] inside apartment. [address] [facility] [address] Social & Family Supports/Community Resources: sister, and neighbor Extended Emergency Contact Information Primary Emergency Contact: Lyudmila Bellamy Address: [address] [place] [address] [facility] Relation: Friend Secondary Emergency Contact: BerthaAnthonyPatt Address: [address] [place], [place] [address] [place] [address] Relation: Sibling Behavioral Health History: take wellbutrin [...] [place] Prescription Coverage: YES Preferred Pharmacy: [phone] [address] Other: none Primary Care Provider: Silvina Perdue MD [phone] Patient/Caregiver Goals of Treatment: get better Potential Needs for Transition of Care: CM to discussed with patient levels of rehab including SNF/Rehab and VNA home health and hospice care when medically stable. Also to be discussed is the need to accept first bed available when patient is medically ready. Rehab/SNF: willing to go to [facility] [phone] if needed Home Health: TBD willing to use [facility]. PHONE: [phone] FAX: [phone] if needed DME: TBD (uses a cane [...] of care planning. Mio Nelson RN ICU Patient Support Tech Pager [phone] * Consult Note - Marixa Vidales MD - 09/13/2017 2:37 PM EDT GASTROENTEROLOGY & HEPATOLOGY CONSULTATION Initial Consult Note Nain Kang 1950 [id number] Requesting Provider: Team Critical Care REASON FOR CONSULTATION GI bleeding, melena HISTORY OF PRESENT ILLNESS Nain Kang is a 67 y.o. year old CAD s/p CABG in 2000 on aspirin, atrial fibrillation on eliquis, DM, alcohol abuse, pancreatitis with pseudocyst, COPD, esophageal cancer s/p esophagectomy 2000, surgical flap infection with rib removal, chronic narcotic use who is admitted to [facility] for GI bleeding. Patient states that he [...] chronic narcotic use who is admitted to [facility] for GI bleeding. Patient clearly describes melena [...] primary team. Estrellita Gonzales MD Gastroenterology Fellow #[id number] Attending Addendum: I interviewed and examined the [...] METABOLIC PANEL Routine 09/19/2017 5:34 AM EDT HEMOGLOBIN AND HEMATOCRIT, BLOOD Routine 09/18/2017 6:45 [...] POCT GLUCOSE Routine 09/13/2017 1:08 PM EDT DIET TECH SCAN 09/13/2017 12:00 AM EDT documented in this encounter Results * ABORH Recheck Status (09/20/2017 9:08 AM EDT) ABORH Type Recheck Completed [facility] Blood specimen (specimen) Venous Draw / Unknown 09/20/2017 9:08 AM EDT 09/20/2017 9:22 AM EDT Narrative Resulting Agency Comment Spec In Lab El Connors MD BLOOD BANK LAB ORDER CORDELIA Performing Organization Address City/[facility]/ZIP Co de Phone Number [facility] [place] [address] * Selected Cell Screen (09/20/2017 9:08 AM EDT) Ab Screen Interp Previously identified Anti-K, M. No additional alloantibodies detected.* *Due to the presence of alloantibody(ies) additional time is required for preparation of Red Cell Products. See initial antibody identification report for additional information. [facility] Blood specimen (specimen) Venous Draw / Unknown 09/20/2017 9:08 AM EDT 09/20/2017 9:22 AM EDT Narrative Resulting Agency Comment Spec In Lab El Connors MD BLOOD BANK LAB ORDER CORDELIA Performing Organization Address [facility] Co de Phone Number [facility] [place] [address] * ABORh Type Manual (09/20/2017 9:08 AM EDT) Pathologist [facility] Expires at [id number] on: 09/23/2017 [facility] ABORH Type O Pos [facility] Blood specimen (specimen) Venous Draw / Unknown 09/20/2017 9:08 AM EDT 09/20/2017 9:22 AM EDT Narrative Resulting Agency Comment Spec In Lab El Connors MD BLOOD BANK LAB ORDER CORDELIA Performing Organization Address City/[facility]/ZIP Co de Phone Number [facility] [place] [address] * (ABNORMAL) Differential, Automated (09/20/2017 6:00 AM EDT) Neutrophil % 76.9 % [facility] Neutrophil Absolute 9.75(H) 1.70 - 6.10 x10(3)/mc L [facility] Lymph % 11.4 % [facility] Lymphocytes Abs 1.4 0.9 - 3.2 x10(3)/ L [facility] Monocyte % 8.2 % [facility] Monocyte Abs 1.0(H) 0.3 - 0.9 x10(3)/ L [facility] Eos % 2.0 % [facility] Eosinophils Abs 0.3 0.0 - 0.4 x10(3)/ L [facility] Basophil % 0.2 % [facility] Baso Absolute 0.0 0.0 - 0.1 x10(3)/[facility] Immature Gran % 1.30 % [facility] Comment: Immature granulocytes(IG's)percentage and absolute count will include metamyelocytes, myelocytes, and promyelocytes. Blood smears from CBCs yielding IG's will be scanned manually for concordance. If this scan disagrees with the automated IG or if promyelocytes are noted, a manual differential will be performed. Immature Gran Absolute 0.17(H) 0.00 - 0.04 x10(3)/[facility] Blood specimen (specimen) 09/20/2017 6:00 AM EDT 09/20/2017 6:19 AM EDT Narrative Resulting Agency Comment Spec In Lab Vera HASSAN HEMATOLOGY ORDERABLE S Performing Organization Address City/State/[facility] Co de Phone Number [facility] [place] [address] * (ABNORMAL) Hemogram (09/20/2017 6:00 AM EDT) White Blood Cell 12.7(H) 4.0 - 9.5 x10(3)/ L [facility] Red Blood Cell 2.42(L) 4.58 - 5.54 x10(6)/ L [facility] Hemoglobin 7.5(L) 13.7 - 16.5 gm/dL [facility] Hematocrit 23.3(L) 40.5 - 48.5 % [facility] Mean Cell Volume 96.3(H) 82.9 - 93.1 fL [facility] Mean Cell Hemoglobin 31.0 27.5 - 32.1 pg [facility] Mean Cell Hemoglobin Concentration 32.2 32.0 - 35.7 gm/dL [facility] Platelet 188 145 - 357 x10(3)/mc L [facility] RDW Standard Deviation 58.8(H) 36.0 - 45.0 fL [facility] RDW coefficient of variation 20.0(H) 11.4 - 13.8 % [facility] Mean Platelet Volume 11.0 7.6 - 12.9 [facility] NRBC% auto 0.3 % [facility] NRBC Absolute 0.040(H) 0.000 - 0.000 x10(3)/mc L [facility] Blood specimen (specimen) 09/20/2017 6:00 AM EDT 09/20/2017 6:19 AM EDT Narrative Resulting Agency Comment Spec In Lab Vera HASSAN HEMATOLOGY ORDERABLE S [facility] [place] [address] * (ABNORMAL) Basic Metabolic Panel (non-fasting) (09/20/2017 6:00 AM EDT) Glucose 82 65 - 199 mg/dL [facility] Comment:Diabetes: >=200 mg/d L plus symptoms Blood Urea Nitrogen 19 10 - 20 mg/dL [facility] Creatinine 0.72(L) 0.80 - 1.50 mg/dL [facility] Sodium 138 135 - 145 mmol/L [facility] Potassium 4.1 3.5 - 5.0 mmol/L [facility] Comment: Please note: ??Patients with WBC >100,000 may have falsely elevated Potassium levels. ??For accurate Potassium quantification in these patients send serum separator tube (gold top) for subsequent determinations. ??Contact the Clinical Chemistry Laboratory if there are any questions. Chloride 111(H) 98 - 107 mmol/L [facility] Carbon Dioxide 19(L) 22 - 31 mmol/L [facility] Anion Gap 8 5 - 15 mmol/L [facility] Calcium 8.1(L) 8.5 - 10.5 mg/dL [facility] Est Glomerular Filtration Rate >60 >=60 [facility] Comment: The reported eGFR should be multiplied by 1.2 for patients. The MDRD is not an appropriate measure of renal function for patients with body mass extremes or in patients with acute kidney failure. [email or web address] [email or web address] Blood specimen (specimen) 09/20/2017 6:00 AM EDT 09/20/2017 6:19 AM EDT Narrative Resulting Agency Comment Spec In Lab Shilpa Mercedes MD CHEMISTRY ORDERABLES [facility] [place] [address] * (ABNORMAL) Differential, Automated (09/19/2017 5:34 AM EDT) Neutrophil % 70.1 % [facility] Neutrophil Absolute 6.98(H) 1.70 - 6.10 x10(3)/mc L [facility] Lymph % 13.8 % [facility] Lymphocytes Abs 1.4 0.9 - 3.2 x10(3)/mc L [facility] Monocyte % 10.9 % [facility] Monocyte Abs 1.1(H) 0.3 - 0.9 x10(3)/mc L [facility] Eos % 2.3 % [facility] Eosinophils Abs 0.2 0.0 - 0.4 x10(3)/mc L [facility] Basophil % 0.3 % [facility] Baso Absolute 0.0 0.0 - 0.1 x10(3)/[facility] LABORATORY Immature Gran % 2.60 % [facility] Comment: Immature granulocytes(IG's)percentage and absolute count will include metamyelocytes, myelocytes, and promyelocytes. Blood smears from CBCs yielding IG's will be scanned manually for concordance. If this scan disagrees with the automated IG or if promyelocytes are noted, a manual differential will be performed. Immature Gran Absolute 0.26(H) 0.00 - 0.04 x10(3)/[facility] LABORATORY Blood specimen (specimen) 09/19/2017 5:34 AM EDT 09/19/2017 5:59 AM EDT Narrative Resulting Agency Comment Spec In Lab Vera HASSAN HEMATOLOGY ORDERABLE S [facility] [place] [address] * (ABNORMAL) Hemogram (09/19/2017 5:34 AM EDT) White Blood Cell 10.0(H) 4.0 - 9.5 x10(3)/[facility] LABORATORY Red Blood Cell 2.41(L) 4.58 - 5.54 x10(6)/[facility] LABORATORY Hemoglobin 8.0(L) 13.7 - 16.5 gm/dL [facility] Hematocrit 23.4(L) 40.5 - 48.5 % [facility] Mean Cell Volume 97.1(H) 82.9 - 93.1 fL [facility] Mean Cell Hemoglobin 33.2(H) 27.5 - 32.1 pg [facility] Mean Cell Hemoglobin Concentration 34.2 32.0 - 35.7 gm/dL [facility] Platelet 165 145 - 357 x10(3)/[facility] LABORATORY RDW Standard Deviation 56.6(H) 36.0 - 45.0 fL [facility] RDW coefficient of variation 20.0(H) 11.4 - 13.8 % [facility] Mean Platelet Volume 11.7 7.6 - 12.9 fL [facility] NRBC% auto 0.3 % [facility] NRBC Absolute 0.030(H) 0.000 - 0.000 x10(3)/mc L [facility] Blood specimen (specimen) 09/19/2017 5:34 AM EDT 09/19/2017 5:59 AM EDT Narrative Resulting Agency Comment Spec In Lab Vera HASSAN HEMATOLOGY ORDERABLE S [facility] [place] [address] * (ABNORMAL) Basic Metabolic Panel (non-fasting) (09/19/2017 5:34 AM EDT) Glucose 101 65 - 199 mg/dL [facility] Comment:Diabetes: >=200 mg/d L plus symptoms Blood Urea Nitrogen 21(H) 10 - 20 mg/dL [facility] Creatinine 0.74(L) 0.80 - 1.50 mg/dL [facility] Sodium 143 135 - 145 mmol/L [facility] Potassium 4.2 3.5 - 5.0 mmol/L [facility] Comment: Please note: ??Patients with WBC >100,000 may have falsely elevated Potassium levels. ??For accurate Potassium quantification in these patients send serum separator tube (gold top) for subsequent determinations. ??Contact the Clinical Chemistry Laboratory if there are any questions. Chloride 113(H) 98 - 107 mmol/L [facility] Carbon Dioxide 19(L) 22 - 31 mmol/L [facility] Anion Gap 11 5 - 15 mmol/L [facility] Calcium 7.9(L) 8.5 - 10.5 mg/dL [facility] Est Glomerular Filtration Rate >60 >=60 [facility] Comment: The reported eGFR should be multiplied by 1.2 for patients. The MDRD is not an appropriate measure of renal function for patients with body mass extremes or in patients with acute kidney failure. [email or web address] [email or web address] Blood specimen (specimen) 09/19/2017 5:34 AM EDT 09/19/2017 5:59 AM EDT Narrative Resulting Agency Comment Spec In Lab Shilpa Mercedes MD CHEMISTRY ORDERABLES Performing Organization Address City/[facility]/ZIP Co de Phone Number [facility] [place] [address] * (ABNORMAL) Hemoglobin and Hematocrit, blood (09/18/2017 6:45 AM EDT) Hemoglobin 8.3(L) 13.7 - 16.5 gm/dL [facility] Hematocrit 25.5(L) 40.5 - 48.5 % [facility] Blood specimen (specimen) 09/18/2017 6:45 AM EDT 09/18/2017 7:02 AM EDT Narrative Resulting Agency Comment Spec In Lab Bryan H Tristan [employer] HEMATOLOGY ORDERABLE S Performing Organization Address City/[facility]/ZIP Co de Phone Number [facility] [place] [address] * Transfuse RBC (09/18/2017 5:27 AM EDT) Bryan H Young [employer] NURSING TREATMENT OR DERABLES - BLOOD ADMIN * Transfuse RBC (09/18/2017 5:27 AM EDT) Bryan H Young [employer] NURSING TREATMENT OR DERABLES - BLOOD ADMIN * Prepare RBC (09/18/2017 3:00 AM EDT) Dispensed? Yes [facility] Blood specimen (specimen) 09/18/2017 3:00 AM EDT 09/18/2017 3:00 AM EDT Narrative Resulting Agency Comment Spec In Lab Bryan Catrachito Tristan DRUMMOND BLOOD BANK PRODUCT O RDERABLES [facility] [place] [address] * (ABNORMAL) Differential, Automated (09/18/2017 1:48 AM EDT) Neutrophil % 68.3 % [facility] Neutrophil Absolute 7.21(H) 1.70 - 6.10 x10(3)/[facility] LABORATORY Lymph % 15.0 % [facility] Lymphocytes Abs 1.6 0.9 - 3.2 x10(3)/[facility] LABORATORY Monocyte % 12.5 % [facility] Monocyte Abs 1.3(H) 0.3 - 0.9 x10(3)/[facility] LABORATORY Eos % 1.6 % [facility] Eosinophils Abs 0.2 0.0 - 0.4 x10(3)/[facility] LABORATORY Basophil % 0.1 % [facility] Baso Absolute 0.0 0.0 - 0.1 x10(3)/[facility] LABORATORY Immature Gran % 2.50 % [facility] Comment: Immature granulocytes(IG's)percentage and absolute count will include metamyelocytes, myelocytes, and promyelocytes. Blood smears from CBCs yielding IG's will be scanned manually for concordance. If this scan disagrees with the automated IG or if promyelocytes are noted, a manual differential will be performed. Immature Gran Absolute 0.26(H) 0.00 - 0.04 x10(3)/ L [facility] Blood specimen (specimen) 09/18/2017 1:48 AM EDT 09/18/2017 2:18 AM EDT Narrative Resulting Agency Comment Spec In Lab Vera HASSAN HEMATOLOGY ORDERABLE S [facility] [place] [address] * (ABNORMAL) Hemogram (09/18/2017 1:48 AM EDT) White Blood Cell 10.6(H) 4.0 - 9.5 x10(3)/mc L [facility] Red Blood Cell 2.17(L) 4.58 - 5.54 x10(6)/mc L [facility] Hemoglobin 6.9(L) 13.7 - 16.5 gm/dL [facility] Hematocrit 21.1(L) 40.5 - 48.5 % [facility] Mean Cell Volume 97.2(H) 82.9 - 93.1 fL [facility] Mean Cell Hemoglobin 31.8 27.5 - 32.1 pg [facility] Mean Cell Hemoglobin Concentration 32.7 32.0 - 35.7 gm/dL [facility] Platelet 132(L) 145 - 357 x10(3)/mc L [facility] RDW Standard Deviation 57.9(H) 36.0 - 45.0 fL [facility] RDW coefficient of variation 21.2(H) 11.4 - 13.8 % [facility] Mean Platelet Volume 11.7 7.6 - 12.9 fL [facility] NRBC% auto 0.5 % [facility] NRBC Absolute 0.050(H) 0.000 - 0.000 x10(3)/mc L [facility] Blood specimen (specimen) 09/18/2017 1:48 AM EDT 09/18/2017 2:18 AM EDT Narrative Resulting Agency Comment Spec In Lab Vera HASSAN HEMATOLOGY ORDERABLE S [facility] [place] [address] * (ABNORMAL) Basic Metabolic Panel (non-fasting) (09/18/2017 1:48 AM EDT) Glucose 108 65 - 199 mg/dL [facility] Comment:Diabetes: >=200 mg/d L plus symptoms Blood Urea Nitrogen 33(H) 10 - 20 mg/dL [facility] Creatinine 0.71(L) 0.80 - 1.50 mg/dL [facility] Sodium 140 135 - 145 mmol/L [facility] Potassium 4.8 3.5 - 5.0 mmol/L [facility] Comment: Please note: ??Patients with WBC >100,000 may have falsely elevated Potassium levels. ??For accurate Potassium quantification in these patients send serum separator tube (gold top) for subsequent determinations. ??Contact the Clinical Chemistry Laboratory if there are any questions. Chloride 110(H) 98 - 107 mmol/L [facility] Carbon Dioxide 20(L) 22 - 31 mmol/L [facility] Anion Gap 10 5 - 15 mmol/L [facility] Calcium 8.3(L) 8.5 - 10.5 mg/dL [facility] Est Glomerular Filtration Rate >60 >=60 [facility] Comment: The reported eGFR should be multiplied by 1.2 for patients. The MDRD is not an appropriate measure of renal function for patients with body mass extremes or in patients with acute kidney failure. [email or web address] [email or web address] Blood specimen (specimen) 09/18/2017 1:48 AM EDT 09/18/2017 2:18 AM EDT Narrative Resulting Agency Comment Spec In Lab Shilpa Mercedes MD CHEMISTRY ORDERABLES [facility] [place] [address] * (ABNORMAL) Hemoglobin and Hematocrit, blood (09/17/2017 11:48 PM EDT) Hemoglobin 7.3(L) 13.7 - 16.5 gm/dL [facility] Hematocrit 23.6(L) 40.5 - 48.5 % [facility] Blood specimen (specimen) 09/17/2017 11:48 PM EDT 09/17/2017 11:59 PM EDT Narrative Resulting Agency Comment Spec In Lab Bryan Hudson APRN HEMATOLOGY ORDERABLE S [facility] [place] [address] * POCT Glucose (09/17/2017 11:46 AM EDT) [facility] Signature Glucose, POC 108 65 - 199 mg/dL [facility] Comment: Supplemental ranges: <140 mg/dL before meals <180 mg/dL all other times of the day Blood specimen (specimen) 09/17/2017 11:46 AM EDT 09/17/2017 11:46 AM EDT El Connors MD POINT OF CARE TEST O RDERADELORES Performing Organization Address [facility]/ZIP Co de Phone Number [facility] [place] [address] * POCT Glucose (09/17/2017 6:59 AM EDT) Glucose, POC 140 65 - 199 mg/dL [facility] Comment: Supplemental ranges: <140 mg/dL before meals <180 mg/dL all other times of the day Blood specimen (specimen) 09/17/2017 6:59 AM EDT 09/17/2017 6:59 AM EDT Yao Klein MD POINT OF CARE TEST O RDERADELORES Performing Organization Address City/[facility]/ZIP Co de Phone Number [facility] [place] [address] * Hemoglobin A1c (09/17/2017 4:50 AM EDT) Hemoglobin A1c 5.1 4.3 - 5.6 % [facility] Comment: Reference Range: 4.3 - [...] Mellitus, Diabetes Care 2013; 36: Suppl. 1, S67-26 Estimated Average Glucose 100 mg/dL [facility] Comment: eAG equivalents for HbA1c [...] into estimated average glucose values. ??Diabetes Care 2008:31(8):9174-3444. Blood specimen (specimen) Venous Draw / Unknown 09/17/2017 4:50 AM EDT 09/17/2017 1:19 PM EDT Narrative Resulting Agency Comment Spec In Lab El Connors MD CHEMISTRY ORDERABLES Performing Organization Address City/[facility]/ZIP Co de Phone Number [facility] [place] [address] * (ABNORMAL) Differential, Automated (09/17/2017 4:50 AM EDT) Neutrophil % 70.5 % [facility] Neutrophil Absolute 7.81(H) 1.70 - 6.10 x10(3)/ L [facility] Lymph % 15.4 % [facility] Lymphocytes Abs 1.7 0.9 - 3.2 x10(3)/ L [facility] Monocyte % 9.7 % [facility] Monocyte Abs 1.1(H) 0.3 - 0.9 x10(3)/ L [facility] Eos % 1.8 % [facility] Eosinophils Abs 0.2 0.0 - 0.4 x10(3)/[facility] LABORATORY Basophil % 0.2 % [facility] Baso Absolute 0.0 0.0 - 0.1 x10(3)/[facility] LABORATORY Immature Gran % 2.40 % [facility] Comment: Immature granulocytes(IG's)percentage and absolute count will include metamyelocytes, myelocytes, and promyelocytes. Blood smears from CBCs yielding IG's will be scanned manually for concordance. If this scan disagrees with the automated IG or if promyelocytes are noted, a manual differential will be performed. Immature Gran Absolute 0.27(H) 0.00 - 0.04 x10(3)/ L [facility] Blood specimen (specimen) 09/17/2017 4:50 AM EDT 09/17/2017 4:56 AM EDT Narrative Resulting Agency Comment Spec In Lab Vera HASSAN HEMATOLOGY ORDERABLE S Performing Organization Address [facility]/ZIP Co de Phone Number [facility] [place] [address] * (ABNORMAL) Hemogram (09/17/2017 4:50 AM EDT) White Blood Cell 11.1(H) 4.0 - 9.5 x10(3)/mc L [facility] Red Blood Cell 2.99(L) 4.58 - 5.54 x10(6)/mc L [facility] Hemoglobin 8.9(L) 13.7 - 16.5 gm/dL [facility] Hematocrit 28.4(L) 40.5 - 48.5 % [facility] Mean Cell Volume 95.0(H) 82.9 - 93.1 [facility] LABOR[facility] Mean Cell Hemoglobin 29.8 27.5 - 32.1 pg [facility] Mean Cell Hemoglobin Concentration 31.3(L) 32.0 - 35.7 gm/dL [facility] Platelet 138(L) 145 - 357 x10(3)/[facility] LABORATORY RDW Standard Deviation 55.2(H) 36.0 - 45.0 [facility] RDW coefficient of variation 20.8(H) 11.4 - 13.8 % [facility] Mean Platelet Volume 11.4 7.6 - 12.9 [facility] LAB[facility]ORY NRBC% auto 0.9 % [facility] NRBC Absolute 0.100(H) 0.000 - 0.000 x10(3)/mc [facility] Blood specimen (specimen) 09/17/2017 4:50 AM EDT 09/17/2017 4:56 AM EDT Narrative Resulting Agency Comment Spec In Lab Vera HASSAN HEMATOLOGY ORDERABLE S [facility] [place] [address] * (ABNORMAL) Basic Metabolic Panel (non-fasting) (09/17/2017 4:50 AM EDT) Glucose 81 65 - 199 mg/dL [facility] Comment:Diabetes: >=200 mg/d L plus symptoms Blood Urea Nitrogen 29(H) 10 - 20 mg/dL [facility] Creatinine 0.78(L) 0.80 - 1.50 mg/dL [facility] Sodium 142 135 - 145 mmol/L [facility] Potassium 4.6 3.5 - 5.0 mmol/L [facility] Comment: Please note: ??Patients with WBC >100,000 may have falsely elevated Potassium levels. ??For accurate Potassium quantification in these patients send serum separator tube (gold top) for subsequent determinations. ??Contact the Clinical Chemistry Laboratory if there are any questions. Chloride 111(H) 98 - 107 mmol/L [facility] Carbon Dioxide 19(L) 22 - 31 mmol/L [facility] Anion Gap 12 5 - 15 mmol/L [facility] Calcium 8.0(L) 8.5 - 10.5 mg/dL [facility] Est Glomerular Filtration Rate >60 >=60 [facility] Comment: The reported eGFR should be multiplied by 1.2 for patients. The MDRD is not an appropriate measure of renal function for patients with body mass extremes or in patients with acute kidney failure. [email or web address] [email or web address] Blood specimen (specimen) 09/17/2017 4:50 AM EDT 09/17/2017 4:56 AM EDT Narrative Resulting Agency Comment Spec In Lab Shilpa Mercedes MD CHEMISTRY ORDERABLES [facility] [place] [address] * POCT Glucose (09/16/2017 8:43 PM EDT) Glucose, POC 109 65 - 199 mg/dL [facility] Comment: Supplemental ranges: <140 mg/dL before meals <180 mg/dL all other times of the day Blood specimen (specimen) 09/16/2017 8:43 PM EDT 09/16/2017 8:43 PM EDT Yao Klein MD POINT OF CARE TEST O RDERABLES [facility] [place] [address] * ABORH Recheck Status (09/16/2017 4:35 PM EDT) Pathologist [facility] ABORH Type Recheck Completed [facility] Blood specimen (specimen) Venous Draw / Unknown 09/16/2017 4:35 PM EDT 09/16/2017 5:07 PM EDT Narrative Resulting Agency Comment Spec In Lab Karyn Yost [facility] BLOOD BANK LAB ORDER CORDELIA Performing Organization Address City/[facility] Co de Phone Number [facility] [place] [address] * Selected Cell Screen (09/16/2017 4:35 PM EDT) [facility] Ab Screen Interp Previously identified Anti-K & Anti-M. No additional alloantibodies detected.* *Due to the presence of alloantibody(ies) additional time is required for preparation of Red Cell Products. See initial antibody identification report for additional information. [facility] Blood specimen (specimen) Venous Draw / Unknown 09/16/2017 4:35 PM EDT 09/16/2017 5:07 PM EDT Narrative Resulting Agency Comment Spec In Lab Karyn Vanessa Priyank [facility] BLOOD BANK LAB ORDER CORDELIA Performing Organization Address City/[facility]/ZIP Co de Phone Number [facility] [place] [address] * ABORh Type Manual (09/16/2017 4:35 PM EDT) Expires at [id number] on: 09/19/2017 [facility] ABORH Type O Pos [facility] Blood specimen (specimen) Venous Draw / Unknown 09/16/2017 4:35 PM EDT 09/16/2017 5:07 PM EDT Narrative Resulting Agency Comment Spec In Lab Karyn Yost APRN BLOOD BANK LAB ORDER CORDELIA [facility] [place] [address] * POCT Glucose (09/16/2017 4:35 PM EDT) Glucose, POC 92 65 - 199 mg/dL [facility] Comment: Supplemental ranges: <140 mg/dL before meals <180 mg/dL all other times of the day Blood specimen (specimen) 09/16/2017 4:35 PM EDT 09/16/2017 4:35 PM EDT Yao Klein MD POINT OF CARE TEST O RDERADELORES Performing Organization Address City/[facility]/ZIP Co de Phone Number [facility] [place] [address] * POCT Glucose (09/16/2017 2:57 PM EDT) Glucose, POC 163 65 - 199 mg/dL [facility] Comment: Supplemental ranges: <140 mg/dL before meals <180 mg/dL all other times of the day Blood specimen (specimen) 09/16/2017 2:57 PM EDT 09/16/2017 2:57 PM EDT Yao Klein MD POINT OF CARE TEST O POLINA [facility] [place] [address] * POCT Glucose (09/16/2017 2:09 PM EDT) Glucose, POC 66 65 - 199 mg/dL [facility] Comment: Supplemental ranges: <140 mg/dL before meals <180 mg/dL all other times of the day Blood specimen (specimen) 09/16/2017 2:09 PM EDT 09/16/2017 2:09 PM EDT Yao Klein MD POINT OF CARE TEST O RDERADELORES [facility] [place] [address] * POCT Glucose (09/16/2017 11:44 AM EDT) Glucose, POC 171 65 - 199 mg/dL [facility] Comment: Supplemental ranges: <140 mg/dL before meals <180 mg/dL all other times of the day Blood specimen (specimen) 09/16/2017 11:44 AM EDT 09/16/2017 11:44 AM EDT Yao Klein MD POINT OF CARE TEST O RDERADELORES Performing Organization Address [facility]/ZIP Co de Phone Number [facility] [place] [address] * (ABNORMAL) POCT Glucose (09/16/2017 11:05 AM EDT) Glucose, POC 64(L) 65 - 199 mg/dL [facility] Comment: Supplemental ranges: <140 mg/dL before meals <180 mg/dL all other times of the day Blood specimen (specimen) 09/16/2017 11:05 AM EDT 09/16/2017 11:05 AM EDT Yao Klein MD POINT OF CARE TEST O RDERADELORES [facility] [place] [address] * POCT Glucose (09/16/2017 7:39 AM EDT) Glucose, POC 153 65 - 199 mg/dL [facility] Comment: Supplemental ranges: <140 mg/dL before meals <180 mg/dL all other times of the day Blood specimen (specimen) 09/16/2017 7:39 AM EDT 09/16/2017 7:39 AM EDT Yao Klein MD POINT OF CARE TEST O RDERABLES [facility] [place] [address] * (ABNORMAL) Differential, Automated (09/16/2017 1:15 AM EDT) Neutrophil % 69.8 % [facility] Neutrophil Absolute 7.66(H) 1.70 - 6.10 x10(3)/mc L [facility] Lymph % 14.1 % [facility] Lymphocytes Abs 1.6 0.9 - 3.2 x10(3)/mc L [facility] Monocyte % 12.8 % [facility] Monocyte Abs 1.4(H) 0.3 - 0.9 x10(3)/mc L [facility] Eos % 1.4 % [facility] Eosinophils Abs 0.2 0.0 - 0.4 x10(3)/[facility] LABORATORY Basophil % 0.1 % [facility] Baso Absolute 0.0 0.0 - 0.1 x10(3)/mc L [facility] Immature Gran % 1.80 % [facility] Comment: Immature granulocytes(IG's)percentage and absolute count will include metamyelocytes, myelocytes, and promyelocytes. Blood smears from CBCs yielding IG's will be scanned manually for concordance. If this scan disagrees with the automated IG or if promyelocytes are noted, a manual differential will be performed. Immature Gran Absolute 0.20(H) 0.00 - 0.04 x10(3)/mc L [facility] Blood specimen (specimen) 09/16/2017 1:15 AM EDT 09/16/2017 1:25 AM EDT Narrative Resulting Agency Comment Spec In Lab Vera HASSAN HEMATOLOGY ORDERABLE S [facility] [place] [address] * (ABNORMAL) Hemogram (09/16/2017 1:15 AM EDT) White Blood Cell 11.0(H) 4.0 - 9.5 x10(3)/mc L [facility] Red Blood Cell 2.84(L) 4.58 - 5.54 x10(6)/mc L [facility] Hemoglobin 8.6(L) 13.7 - 16.5 gm/dL [facility] Hematocrit 26.7(L) 40.5 - 48.5 % [facility] Mean Cell Volume 94.0(H) 82.9 - 93.1 fL [facility] Mean Cell Hemoglobin 30.3 27.5 - 32.1 pg [facility] Mean Cell Hemoglobin Concentration 32.2 32.0 - 35.7 gm/dL [facility] Platelet 121(L) 145 - 357 x10(3)/mc L [facility] RDW Standard Deviation 53.5(H) 36.0 - 45.0 fL [facility] RDW coefficient of variation 19.6(H) 11.4 - 13.8 % [facility] Mean Platelet Volume 11.4 7.6 - 12.9 fL [facility] NRBC% auto 1.5 % [facility] NRBC Absolute 0.160(H) 0.000 - 0.000 x10(3)/mc L [facility] Blood specimen (specimen) 09/16/2017 1:15 AM EDT 09/16/2017 1:25 AM EDT Narrative Resulting Agency Comment Spec In Lab Vera HASSAN HEMATOLOGY ORDERABLE S Performing Organization Address City/[facility]/ZIP Co de Phone Number [facility] [place] [address] * (ABNORMAL) Basic Metabolic Panel (non-fasting) (09/16/2017 1:15 AM EDT) Glucose 101 65 - 199 mg/dL [facility] Comment:Diabetes: >=200 mg/d L plus symptoms Blood Urea Nitrogen 44(H) 10 - 20 mg/dL [facility] Creatinine 0.90 0.80 - 1.50 mg/dL [facility] Sodium 142 135 - 145 mmol/L [facility] Potassium 4.2 3.5 - 5.0 mmol/L [facility] Comment: Please note: ??Patients with WBC >100,000 may have falsely elevated Potassium levels. ??For accurate Potassium quantification in these patients send serum separator tube (gold top) for subsequent determinations. ??Contact the Clinical Chemistry Laboratory if there are any questions. Chloride 111(H) 98 - 107 mmol/L [facility] Carbon Dioxide 23 22 - 31 mmol/L [facility] Anion Gap 8 5 - 15 mmol/L [facility] Calcium 8.2(L) 8.5 - 10.5 mg/dL [facility] Est Glomerular Filtration Rate >60 >=60 [facility] Comment: The reported eGFR should be multiplied by 1.2 for patients. The MDRD is not an appropriate measure of renal function for patients with body mass extremes or in patients with acute kidney failure. http://[email or web address]/DHnkdep [email or web address] Blood specimen (specimen) 09/16/2017 1:15 AM EDT 09/16/2017 1:25 AM EDT Narrative Resulting Agency Comment Spec In Lab Shilpa Mercedes MD CHEMISTRY ORDERABLES [facility] [place] [address] * POCT Glucose (09/15/2017 3:37 PM EDT) Glucose, POC 105 65 - 199 mg/dL [facility] Comment: Supplemental ranges: <140 mg/dL before meals <180 mg/dL all other times of the day Blood specimen (specimen) 09/15/2017 3:37 PM EDT 09/15/2017 3:37 PM EDT Yao Klein MD POINT OF CARE TEST O RDERABLES Performing Organization Address City/[facility]/ZIP Co de Phone Number [facility] [place] [address] * POCT Glucose (09/15/2017 7:14 AM EDT) Glucose, POC 107 65 - 199 mg/dL [facility] Comment: Supplemental ranges: <140 mg/dL before meals <180 mg/dL all other times of the day Blood specimen (specimen) 09/15/2017 7:14 AM EDT 09/15/2017 7:14 AM EDT Shilpa Mercedes MD POINT OF CARE TEST O POLINA Performing Organization Address City/[facility]/ZIP Co de Phone Number [facility] [place] [address] * (ABNORMAL) Hemogram (09/15/2017 6:10 AM EDT) White Blood Cell 13.1(H) 4.0 - 9.5 x10(3)/mc L [facility] Red Blood Cell 2.77(L) 4.58 - 5.54 x10(6)/mc L [facility] Hemoglobin 8.4(L) 13.7 - 16.5 gm/dL [facility] Hematocrit 25.6(L) 40.5 - 48.5 % [facility] Mean Cell Volume 92.4 82.9 - 93.1 fL [facility] Mean Cell Hemoglobin 30.3 27.5 - 32.1 pg [facility] Mean Cell Hemoglobin Concentration 32.8 32.0 - 35.7 gm/dL [facility] Platelet 126(L) 145 - 357 x10(3)/mc L [facility] RDW Standard Deviation 51.4(H) 36.0 - 45.0 fL [facility] RDW coefficient of variation 17.7(H) 11.4 - 13.8 % [facility] Mean Platelet Volume 11.1 7.6 - 12.9 fL [facility] NRBC% auto 1.4 % [facility] NRBC Absolute 0.190(H) 0.000 - 0.000 x10(3)/mc L [facility] Blood specimen (specimen) 09/15/2017 6:10 AM EDT 09/15/2017 6:29 AM EDT Narrative Resulting Agency Comment Spec In Lab Jennifer Kim APRN HEMATOLOGY ORDERABLE S [facility] [place] [address] * Scan, Peripheral Blood (09/15/2017 3:23 AM EDT) Plat estimate Decreased [facility] RBC Morphology Abnormal [facility] Macrocyte 1-5 /HPF [facility] Polychromasia Present >5/HPF [facility] Ovalocytes 1-5 /HPF [facility] Blood specimen (specimen) 09/15/2017 3:23 AM EDT 09/15/2017 3:30 AM EDT Narrative Resulting Agency Comment Spec In Lab Vera HASSAN HEMATOLOGY ORDERABLE S [facility] [place] [address] * (ABNORMAL) Differential, Automated (09/15/2017 3:23 AM EDT) Neutrophil % 76.2 % [facility] Neutrophil Absolute 9.84(H) 1.70 - 6.10 x10(3)/mc L [facility] Lymph % 9.8 % [facility] Lymphocytes Abs 1.3 0.9 - 3.2 x10(3)/ L [facility] Monocyte % 12.0 % [facility] Monocyte Abs 1.6(H) 0.3 - 0.9 x10(3)/[facility] Eos % 0.1 % [facility] Eosinophils Abs 0.0 0.0 - 0.4 x10(3)/[facility] Basophil % 0.1 % [facility] Baso Absolute 0.0 0.0 - 0.1 x10(3)/[facility] Immature Gran % 1.80 % [facility] Comment: Immature granulocytes(IG's)percentage and absolute count will include metamyelocytes, myelocytes, and promyelocytes. Blood smears from CBCs yielding IG's will be scanned manually for concordance. If this scan disagrees with the automated IG or if promyelocytes are noted, a manual differential will be performed. Immature Gran Absolute 0.23(H) 0.00 - 0.04 x10(3)/[facility] Blood specimen (specimen) 09/15/2017 3:23 AM EDT 09/15/2017 3:30 AM EDT Narrative Resulting Agency Comment Spec In Lab Vera HASSAN HEMATOLOGY ORDERABLE S [facility] [place] [address] * (ABNORMAL) Hemogram (09/15/2017 3:23 AM EDT) White Blood Cell 12.9(H) 4.0 - 9.5 x10(3)/[facility] Red Blood Cell 2.69(L) 4.58 - 5.54 x10(6)/[facility] Hemoglobin 8.2(L) 13.7 - 16.5 gm/dL [facility] Hematocrit 24.9(L) 40.5 - 48.5 % [facility] Mean Cell Volume 92.6 82.9 - 93.1 fL [facility] Mean Cell Hemoglobin 30.5 27.5 - 32.1 pg [facility] Mean Cell Hemoglobin Concentration 32.9 32.0 - 35.7 gm/dL [facility] Platelet 121(L) 145 - 357 x10(3)/mc L [facility] RDW Standard Deviation 52.1(H) 36.0 - 45.0 [facility] RDW coefficient of variation 18.2(H) 11.4 - 13.8 % [facility] Mean Platelet Volume 10.9 7.6 - 12.9 [facility] NRBC% auto 1.4 % [facility] NRBC Absolute 0.180(H) 0.000 - 0.000 x10(3)/mc L [facility] Blood specimen (specimen) 09/15/2017 3:23 AM EDT 09/15/2017 3:30 AM EDT Narrative Resulting Agency Comment Spec In Lab Vera HASSAN HEMATOLOGY ORDERABLE S [facility] [place] [address] * (ABNORMAL) Basic Metabolic Panel (non-fasting) (09/15/2017 3:23 AM EDT) Glucose 87 65 - 199 mg/dL [facility] Comment:Diabetes: >=200 mg/d L plus symptoms Blood Urea Nitrogen 58(H) 10 - 20 mg/dL [facility] Creatinine 1.05 0.80 - 1.50 mg/dL [facility] Sodium 146(H) 135 - 145 mmol/L [facility] Potassium 4.0 3.5 - 5.0 mmol/L [facility] Comment: Please note: ??Patients with WBC >100,000 may have falsely elevated Potassium levels. ??For accurate Potassium quantification in these patients send serum separator tube (gold top) for subsequent determinations. ??Contact the Clinical Chemistry Laboratory if there are any questions. Chloride 113(H) 98 - 107 mmol/L [facility] Carbon Dioxide 22 22 - 31 mmol/L [facility] Anion Gap 11 5 - 15 mmol/L [facility] Calcium 7.5(L) 8.5 - 10.5 mg/dL [facility] Est Glomerular Filtration Rate >60 >=60 [facility] Comment: The reported eGFR should be multiplied by 1.2 for patients. The MDRD is not an appropriate measure of renal function for patients with body mass extremes or in patients with acute kidney failure. http://HelloFresh/DHnkdep http://HelloFresh/DHMCnkf Blood specimen (specimen) 09/15/2017 3:23 AM EDT 09/15/2017 3:30 AM EDT Narrative Resulting Agency Comment Spec In Lab Shilpa Mercedes MD CHEMISTRY ORDERABLES Performing Organization Address [facility]/ZIP Co de Phone Number [facility] [place] [address] * POCT Glucose (09/15/2017 3:22 AM EDT) Glucose, POC 112 65 - 199 mg/dL [facility] Comment: Supplemental ranges: <140 mg/dL before meals <180 mg/dL all other times of the day Blood specimen (specimen) 09/15/2017 3:22 AM EDT 09/15/2017 3:22 AM EDT Shilpa Mercedes MD POINT OF CARE TEST O RDERABLES [facility] [place] [address] * POCT Glucose (09/15/2017 12:20 AM EDT) [facility] Glucose, POC 196 65 - 199 mg/dL [facility] Comment: Supplemental ranges: <140 mg/dL before meals <180 mg/dL all other times of the day Blood specimen (specimen) 09/15/2017 12:20 AM EDT 09/15/2017 12:20 AM EDT Shilpa Mercedes MD POINT OF CARE TEST O RDERABLES [facility] [place] [address] * (ABNORMAL) Hemogram (09/14/2017 8:07 PM EDT) [facility] White Blood Cell 16.0(H) 4.0 - 9.5 x10(3)/mc L [facility] Red Blood Cell 2.98(L) 4.58 - 5.54 x10(6)/mc L [facility] Hemoglobin 9.0(L) 13.7 - 16.5 gm/dL [facility] Hematocrit 27.0(L) 40.5 - 48.5 % [facility] Mean Cell Volume 90.6 82.9 - 93.1 [facility] Mean Cell Hemoglobin 30.2 27.5 - 32.1 pg [facility] Mean Cell Hemoglobin Concentration 33.3 32.0 - 35.7 gm/dL [facility] Platelet 137(L) 145 - 357 x10(3)/mc L [facility] RDW Standard Deviation 49.3(H) 36.0 - 45.0 [facility] RDW coefficient of variation 17.5(H) 11.4 - 13.8 % [facility] Mean Platelet Volume 10.8 7.6 - 12.9 [facility] NRBC% auto 1.4 % [facility] NRBC Absolute 0.230(H) 0.000 - 0.000 x10(3)/mc L [facility] Blood specimen (specimen) 09/14/2017 8:07 PM EDT 09/14/2017 8:10 PM EDT Narrative Resulting Agency Comment Spec In Lab Shilpa Mercedes MD HEMATOLOGY ORDERABLE S Performing Organization Address [facility]/ZIP Co de Phone Number [facility] [place] [address] * POCT Glucose (09/14/2017 7:25 PM EDT) Glucose, POC 122 65 - 199 mg/dL [facility] Comment: Supplemental ranges: <140 mg/dL before meals <180 mg/dL all other times of the day Blood specimen (specimen) 09/14/2017 7:25 PM EDT 09/14/2017 7:25 PM EDT Shilpa Mercedes MD POINT OF CARE TEST O RDERABLES Performing Organization Address [facility]/ZIP Co de Phone Number [facility] [place] [address] * POCT Glucose (09/14/2017 3:59 PM EDT) Glucose, POC 165 65 - 199 mg/dL [facility] Comment: Supplemental ranges: <140 mg/dL before meals <180 mg/dL all other times of the day Blood specimen (specimen) 09/14/2017 3:59 PM EDT 09/14/2017 3:59 PM EDT Zack Hood MD POINT OF CARE TEST O POLINA Performing Organization Address [facility] Co de Phone Number [facility] [place] [address] * US Abdomen Vascular Limited (09/14/2017 1:31 [...] 01:52 pm) PATIENT INFO: ID #: ? [id number] ? : 50 (67 yrs) Name: ? NAIN KANG ?Visit Date:09/14/2017 12:57 pm PERFORMED BY: Performed By: ? rPasanna GRACE, ??Skylar Attending: ?Drew ERVIN, Staci Villavicencio Referred By: ?ZACK HOOD Location: ? [place] SERVICE(S) PROVIDED: ??UABDLIMVAS - Abdominal Limited Survey 2 Organ ? [id number], [id number] ??Quadrant with Vascular - [id number] INDICATIONS: ??F/U post EGD for GI bleed [...] 09/14/2017 01:52 pm) PATIENT INFO: ID #: [id number] : 50 (67 yrs) Name: NAIN KANG Visit Date:09/14/2017 12:57 pm PERFORMED BY: Performed By: Skylar Mims RDMS Attending: tSaci Russell MD Referred By: ZACK HOOD Location: [place] SERVICE(S) PROVIDED: UABDLIMVAS - Abdominal Limited Survey 2 Organ [id number], [id number] Quadrant with Vascular - [id number] INDICATIONS: F/U post EGD for GI bleed [...] POCT Glucose (09/14/2017 12:05 PM EDT) Pathologist [facility] Glucose, POC 133 65 - 199 mg/dL [facility] Comment: Supplemental ranges: <140 mg/dL before meals <180 mg/dL all other times of the day Blood specimen (specimen) 09/14/2017 12:05 PM EDT 09/14/2017 12:05 PM EDT Zack Hood MD POINT OF CARE TEST O RDERABLES [facility] [place] [address] * (ABNORMAL) Hemogram (09/14/2017 7:50 AM EDT) Pathologist [facility] White Blood Cell 11.7(H) 4.0 - 9.5 x10(3)/mc L [facility] Red Blood Cell 3.40(L) 4.58 - 5.54 x10(6)/mc L [facility] Hemoglobin 10.2(L) 13.7 - 16.5 gm/dL [facility] Hematocrit 30.3(L) 40.5 - 48.5 % [facility] Mean Cell Volume 89.1 82.9 - 93.1 fL [facility] Mean Cell Hemoglobin 30.0 27.5 - 32.1 pg [facility] Mean Cell Hemoglobin Concentration 33.7 32.0 - 35.7 gm/dL [facility] Platelet 141(L) 145 - 357 x10(3)/mc L [facility] RDW Standard Deviation 48.1(H) 36.0 - 45.0 fL [facility] RDW coefficient of variation 16.6(H) 11.4 - 13.8 % [facility] Mean Platelet Volume 10.7 7.6 - 12.9 [facility] NRBC% auto 0.9 % [facility] NRBC Absolute 0.100(H) 0.000 - 0.000 x10(3)/mc L [facility] Blood specimen (specimen) 09/14/2017 7:50 AM EDT 09/14/2017 7:51 AM EDT Narrative Resulting Agency Comment Spec In Lab Zack Hood MD HEMATOLOGY ORDERABLE S [facility] [place] [address] * POCT Glucose (09/14/2017 7:38 AM EDT) Glucose, POC 156 65 - 199 mg/dL [facility] Comment: Supplemental ranges: <140 mg/dL before meals <180 mg/dL all other times of the day Blood specimen (specimen) 09/14/2017 7:38 AM EDT 09/14/2017 7:38 AM EDT Zack Hood MD POINT OF CARE TEST O RDERABLES [facility] [place] [address] * POCT Glucose (09/14/2017 4:17 AM EDT) Glucose, POC 180 65 - 199 mg/dL [facility] Comment: Supplemental ranges: <140 mg/dL before meals <180 mg/dL all other times of the day Blood specimen (specimen) 09/14/2017 4:17 AM EDT 09/14/2017 4:17 AM EDT Zack Hood MD POINT OF CARE TEST O RDERABLES [facility] [place] [address] * (ABNORMAL) Hemogram (09/14/2017 4:12 AM EDT) [facility] White Blood Cell 12.5(H) 4.0 - 9.5 x10(3)/mc L [facility] Red Blood Cell 3.41(L) 4.58 - 5.54 x10(6)/mc L [facility] Hemoglobin 10.2(L) 13.7 - 16.5 gm/dL [facility] Hematocrit 30.6(L) 40.5 - 48.5 % [facility] Mean Cell Volume 89.7 82.9 - 93.1 fL [facility] Mean Cell Hemoglobin 29.9 27.5 - 32.1 pg [facility] Mean Cell Hemoglobin Concentration 33.3 32.0 - 35.7 gm/dL [facility] Platelet 143(L) 145 - 357 x10(3)/mc L [facility] RDW Standard Deviation 48.8(H) 36.0 - 45.0 fL [facility] RDW coefficient of variation 17.7(H) 11.4 - 13.8 % [facility] Mean Platelet Volume 10.8 7.6 - 12.9 fL [facility] NRBC% auto 0.3 % [facility] NRBC Absolute 0.040(H) 0.000 - 0.000 x10(3)/mc L [facility] Blood specimen (specimen) 09/14/2017 4:12 AM EDT 09/14/2017 4:19 AM EDT Narrative Resulting Agency Comment Spec In Lab Zack Hood MD HEMATOLOGY ORDERABLE S Performing Organization Address City/[facility]/ZIP Co de Phone Number [facility] [place] [address] * Transfuse RBC (09/14/2017 1:27 AM EDT) Zack Hood MD NURSING TREATMENT OR DERABLES - BLOOD ADMIN * Transfuse RBC (09/14/2017 1:27 AM EDT) Zack Hood MD NURSING TREATMENT OR DERABLES - BLOOD ADMIN * Phosphorus (09/14/2017 1:23 AM EDT) Phosphorus 4.2 2.5 - 4.5 mg/dL [facility] Blood specimen (specimen) Venous Draw / Unknown 09/14/2017 1:23 AM EDT 09/14/2017 1:41 AM EDT Narrative Resulting Agency Comment Spec In Lab Mila HASSAN CHEMISTRY ORDERABLES Performing Organization Address [facility]/ZIP Co de Phone Number [facility] [place] [address] * (ABNORMAL) Magnesium (09/14/2017 1:23 AM EDT) Magnesium 1.15(H) 0.69 - 1.07 mmol/L [facility] Blood specimen (specimen) Venous Draw / Unknown 09/14/2017 1:23 AM EDT 09/14/2017 1:41 AM EDT Narrative Resulting Agency Comment Spec In Lab Mila HASSAN CHEMISTRY ORDERABLES Performing Organization Address City/[facility]/ZIP Co de Phone Number [facility] [place] [address] * (ABNORMAL) Differential, Automated (09/14/2017 1:23 AM EDT) Neutrophil % 93.5 % [facility] Neutrophil Absolute 11.69(H) 1.70 - 6.10 x10(3)/ L [facility] Lymph % 3.6 % [facility] Lymphocytes Abs 0.4(L) 0.9 - 3.2 x10(3)/ L [facility] Monocyte % 1.1 % [facility] Monocyte Abs 0.1(L) 0.3 - 0.9 x10(3)/[facility] LABORATORY Eos % 0.0 % [facility] Eosinophils Abs 0.0 0.0 - 0.4 x10(3)/[facility] LABORATORY Basophil % 0.2 % [facility] Baso Absolute 0.0 0.0 - 0.1 x10(3)/[facility] LABORATORY Immature Gran % 1.60 % [facility] Comment: Immature granulocytes(IG's)percentage and absolute count will include metamyelocytes, myelocytes, and promyelocytes. Blood smears from CBCs yielding IG's will be scanned manually for concordance. If this scan disagrees with the automated IG or if promyelocytes are noted, a manual differential will be performed. Immature Gran Absolute 0.20(H) 0.00 - 0.04 x10(3)/ L [facility] Blood specimen (specimen) 09/14/2017 1:23 AM EDT 09/14/2017 1:28 AM EDT Narrative Resulting Agency Comment Spec In Lab Vera HASSAN HEMATOLOGY ORDERABLE S [facility] [place] [address] * (ABNORMAL) Hemogram (09/14/2017 1:23 AM EDT) White Blood Cell 12.5(H) 4.0 - 9.5 x10(3)/mc L [facility] Red Blood Cell 3.35(L) 4.58 - 5.54 x10(6)/mc L [facility] Hemoglobin 9.9(L) 13.7 - 16.5 gm/dL [facility] Hematocrit 30.8(L) 40.5 - 48.5 % [facility] Mean Cell Volume 91.9 82.9 - 93.1 fL [facility] Mean Cell Hemoglobin 29.6 27.5 - 32.1 pg [facility] Mean Cell Hemoglobin Concentration 32.1 32.0 - 35.7 gm/dL [facility] Platelet 118(L) 145 - 357 x10(3)/mc L [facility] RDW Standard Deviation 50.8(H) 36.0 - 45.0 [facility] RDW coefficient of variation 18.2(H) 11.4 - 13.8 % [facility] Mean Platelet Volume 11.2 7.6 - 12.9 [facility] LAB[facility]ORY NRBC% auto 0.5 % [facility] NRBC Absolute 0.060(H) 0.000 - 0.000 x10(3)/ L [facility] Blood specimen (specimen) 09/14/2017 1:23 AM EDT 09/14/2017 1:28 AM EDT Narrative Resulting Agency Comment Spec In Lab Vera HASSAN HEMATOLOGY ORDERABLE S [facility] [place] [address] * (ABNORMAL) Basic Metabolic Panel (non-fasting) (09/14/2017 1:23 AM EDT) Glucose 153 65 - 199 mg/dL [facility] Comment:Diabetes: >=200 mg/d L plus symptoms Blood Urea Nitrogen 97(H) 10 - 20 mg/dL [facility] Creatinine 1.38 0.80 - 1.50 mg/dL [facility] Sodium 148(H) 135 - 145 mmol/L [facility] Potassium 4.4 3.5 - 5.0 mmol/L [facility] Comment: Please note: ??Patients with WBC >100,000 may have falsely elevated Potassium levels. ??For accurate Potassium quantification in these patients send serum separator tube (gold top) for subsequent determinations. ??Contact the Clinical Chemistry Laboratory if there are any questions. Chloride 111(H) 98 - 107 mmol/L [facility] Carbon Dioxide 22 22 - 31 mmol/L [facility] Anion Gap 15 5 - 15 mmol/L [facility] Calcium 7.7(L) 8.5 - 10.5 mg/dL [facility] Comment:result rechecked-KS Est Glomerular Filtration Rate 51(L) >=60 [facility] Comment: The reported eGFR should be multiplied by 1.2 for patients. The MDRD is not an appropriate measure of renal function for patients with body mass extremes or in patients with acute kidney failure. [email or web address]/DHnkdep [email or web address] Blood specimen (specimen) 09/14/2017 1:23 AM EDT 09/14/2017 1:28 AM EDT Narrative Resulting Agency Comment Spec In Lab Shilpa Mercedes MD CHEMISTRY ORDERABLES Performing Organization Address City/[facility] Co de Phone Number [facility] [place] [address] * Prepare RBC (09/14/2017 12:10 AM EDT) Dispensed? Yes [facility] Blood specimen (specimen) 09/14/2017 12:10 AM EDT 09/14/2017 12:06 AM EDT Narrative Resulting Agency Comment Spec In Lab Zack Hood MD BLOOD BANK PRODUCT O RDERABLES Performing Organization Address City/[facility] Co de Phone Number [facility] [place] [address] * SCAN DOC: LAB (09/14/2017 12:00 AM EDT) Narrative 09/14/2017 12:00 AM EDT Ordered by an unspecified provider. Scanning Provider MEDIA MGR SCAN EXT O RDR/RSLT * POCT Glucose (09/13/2017 11:52 PM EDT) Pathologist [facility] Glucose, POC 150 65 - 199 mg/dL [facility] Comment: Supplemental ranges: <140 mg/dL before meals <180 mg/dL all other times of the day Blood specimen (specimen) 09/13/2017 11:52 PM EDT 09/13/2017 11:52 PM EDT Zack Hood MD POINT OF CARE TEST O VLADERADELORES Performing Organization Address [facility]/ZIP Co de Phone Number [facility] [place] [address] * (ABNORMAL) Hemogram (09/13/2017 11:45 PM EDT) [facility] White Blood Cell 11.2(H) 4.0 - 9.5 x10(3)/mc L [facility] Red Blood Cell 2.64(L) 4.58 - 5.54 x10(6)/mc L [facility] Hemoglobin 7.7(L) 13.7 - 16.5 gm/dL [facility] Hematocrit 23.5(L) 40.5 - 48.5 % [facility] Mean Cell Volume 89.0 82.9 - 93.1 fL [facility] Mean Cell Hemoglobin 29.2 27.5 - 32.1 pg [facility] Mean Cell Hemoglobin Concentration 32.8 32.0 - 35.7 gm/dL [facility] Platelet 133(L) 145 - 357 x10(3)/mc L [facility] RDW Standard Deviation 49.1(H) 36.0 - 45.0 [facility] LABORATORY RDW coefficient of variation 16.7(H) 11.4 - 13.8 % [facility] Mean Platelet Volume 11.4 7.6 - 12.9 fL [facility] NRBC% auto 0.3 % [facility] NRBC Absolute 0.030(H) 0.000 - 0.000 x10(3)/ L [facility] Blood specimen (specimen) 09/13/2017 11:45 PM EDT 09/13/2017 11:48 PM EDT Narrative Resulting Agency Comment Spec In Lab Zack Hood MD HEMATOLOGY ORDERABLE S Performing Organization Address City/State/[facility] Co de Phone Number [facility] [place] [address] * (ABNORMAL) Hemogram (09/13/2017 8:40 PM EDT) White Blood Cell 13.7(H) 4.0 - 9.5 x10(3)/[facility] LABORATORY Red Blood Cell 2.94(L) 4.58 - 5.54 x10(6)/mc L [facility] Hemoglobin 8.9(L) 13.7 - 16.5 gm/dL [facility] Hematocrit 26.8(L) 40.5 - 48.5 % [facility] Mean Cell Volume 91.2 82.9 - 93.1 [facility] LAB[facility]ORY Mean Cell Hemoglobin 30.3 27.5 - 32.1 pg [facility] Mean Cell Hemoglobin Concentration 33.2 32.0 - 35.7 gm/dL [facility] Platelet 155 145 - 357 x10(3)/mc L [facility] RDW Standard Deviation 49.5(H) 36.0 - 45.0 [facility] LAB[facility]ORY RDW coefficient of variation 18.6(H) 11.4 - 13.8 % [facility] Mean Platelet Volume 11.6 7.6 - 12.9 fL [facility] NRBC% auto 0.2 % [facility] NRBC Absolute 0.030(H) 0.000 - 0.000 x10(3)/mc L [facility] Blood specimen (specimen) 09/13/2017 8:40 PM EDT 09/13/2017 8:45 PM EDT Narrative Resulting Agency Comment Spec In Lab Zack Hood MD HEMATOLOGY ORDERABLE S [facility] [place] [address] * POCT Glucose (09/13/2017 8:07 PM EDT) [facility] Glucose, POC 135 65 - 199 mg/dL [facility] Comment: Supplemental ranges: <140 mg/dL before meals <180 mg/dL all other times of the day Blood specimen (specimen) 09/13/2017 8:07 PM EDT 09/13/2017 8:07 PM EDT Zack Hood MD POINT OF CARE TEST O RDERABLES Performing Organization Address [facility]/ZIP Co de Phone Number [facility] [place] [address] * ABORH Recheck Status (09/13/2017 1:19 PM EDT) [facility] ABORH Type Recheck Completed [facility] Blood specimen (specimen) Venous Draw / Unknown 09/13/2017 1:19 PM EDT 09/13/2017 1:19 PM EDT Narrative Resulting Agency Comment Spec In Lab Zack Hood MD BLOOD BANK LAB ORDER CORDELIA [facility] [place] [address] * Selected Cell Screen (09/13/2017 1:19 PM EDT) [facility] Ab Screen Interp Previously identified Anti-K, Anti-M. No additional alloantibodies detected.* *Due to the presence of alloantibody(ies) additional time is required for preparation of Red Cell Products. See initial antibody identification report for additional information. [facility] Blood specimen (specimen) Venous Draw / Unknown 09/13/2017 1:19 PM EDT 09/13/2017 1:19 PM EDT Narrative Resulting Agency Comment Spec In Lab Zack Hood MD BLOOD BANK LAB ORDER CORDELIA [facility] [place] [address] * ABORh Type Manual (09/13/2017 1:19 PM EDT) [facility] Expires at [id number] on: 09/16/2017 [facility] ABORH Type O Pos [facility] Blood specimen (specimen) Venous Draw / Unknown 09/13/2017 1:19 PM EDT 09/13/2017 1:19 PM EDT Narrative Resulting Agency Comment Spec In Lab Zack Hood MD BLOOD BANK LAB ORDER CORDELIA [facility] [place] [address] * Fibrinogen (09/13/2017 1:10 PM EDT) [facility] Fibrinogen 282 200 - 393 mg/dL [facility] Comment: A fibrinogen level >100 mg/dL is adequate for hemostasis in most patients without underlying bleeding disorders. Blood specimen (specimen) Venous Draw / Unknown 09/13/2017 1:10 PM EDT 09/13/2017 1:18 PM EDT Narrative Resulting Agency Comment Spec In Lab Vera HASSAN HEMATOLOGY ORDERABLE S [facility] [place] [address] * (ABNORMAL) Differential, Automated (09/13/2017 1:10 PM EDT) Neutrophil % 82.0 % [facility] Neutrophil Absolute 11.59(H) 1.70 - 6.10 x10(3)/[facility] LABORATORY Lymph % 6.9 % [facility] Lymphocytes Abs 1.0 0.9 - 3.2 x10(3)/[facility] LAB[facility] Monocyte % 10.5 % [facility] Monocyte Abs 1.5(H) 0.3 - 0.9 x10(3)/[facility] LABOR[facility] Eos % 0.0 % [facility] Eosinophils Abs 0.0 0.0 - 0.4 x10(3)/[facility] LAB[facility] Basophil % 0.1 % [facility] Baso Absolute 0.0 0.0 - 0.1 x10(3)/[facility] LABOR[facility]ORY Immature Gran % 0.50 % [facility] Comment: Immature granulocytes(IG's)percentage and absolute count will include metamyelocytes, myelocytes, and promyelocytes. Blood smears from CBCs yielding IG's will be scanned manually for concordance. If this scan disagrees with the automated IG or if promyelocytes are noted, a manual differential will be performed. Immature Gran Absolute 0.07(H) 0.00 - 0.04 x10(3)/[facility] LAB[facility] Blood specimen (specimen) 09/13/2017 1:10 PM EDT 09/13/2017 1:18 PM EDT Narrative Resulting Agency Comment Spec In Lab Karyn Yost AIRCRAFT DISPATCHER HEMATOLOGY ORDERABLE S [facility] [place] [address] * (ABNORMAL) Hemogram (09/13/2017 1:10 PM EDT) White Blood Cell 14.1(H) 4.0 - 9.5 x10(3)/mc L [facility] Red Blood Cell 3.22(L) 4.58 - 5.54 x10(6)/mc L [facility] Hemoglobin 9.5(L) 13.7 - 16.5 gm/dL [facility] Hematocrit 28.7(L) 40.5 - 48.5 % [facility] Mean Cell Volume 89.1 82.9 - 93.1 fL [facility] Mean Cell Hemoglobin 29.5 27.5 - 32.1 pg [facility] Mean Cell Hemoglobin Concentration 33.1 32.0 - 35.7 gm/dL [facility] Platelet 160 145 - 357 x10(3)/ L [facility] RDW Standard Deviation 49.0(H) 36.0 - 45.0 fL [facility] RDW coefficient of variation 16.2(H) 11.4 - 13.8 % [facility] Mean Platelet Volume 10.7 7.6 - 12.9 fL [facility] NRBC% auto 0.2 % [facility] NRBC Absolute 0.030(H) 0.000 - 0.000 x10(3)/ L [facility] Blood specimen (specimen) 09/13/2017 1:10 PM EDT 09/13/2017 1:18 PM EDT Narrative Resulting Agency Comment Spec In Lab Karyn Yost AIRCRAFT DISPATCHER HEMATOLOGY ORDERABLE S [facility] [place] [address] * (ABNORMAL) Magnesium (09/13/2017 1:10 PM EDT) Magnesium 1.10(H) 0.69 - 1.07 mmol/L [facility] Blood specimen (specimen) 09/13/2017 1:10 PM EDT 09/13/2017 1:18 PM EDT Narrative Resulting Agency Comment Spec In Lab Karyn Yost AIRCRAFT DISPATCHER CHEMISTRY ORDERABLES [facility] [place] [address] * (ABNORMAL) CMP w/fasting Glucose (09/13/2017 1:10 PM EDT) Glucose Fasting 142(H) 65 - 99 mg/dL [facility] Comment: ?Fasting* Glucose Interpretive Criteria [...] of Diabetes Mellitus, Position Statement from the [place] [employer]. ??Diabetes Care, Volume 33, Supplement 1, Jun 2009 Blood Urea Nitrogen 121(H) 10 - 20 mg/dL [facility] Creatinine 1.77(H) 0.80 - 1.50 mg/dL [facility] Sodium 144 135 - 145 mmol/L [facility] Potassium 4.4 3.5 - 5.0 mmol/L [facility] Comment: Please note: ??Patients with WBC >100,000 may have falsely elevated Potassium levels. ??For accurate Potassium quantification in these patients send serum separator tube (gold top) for subsequent determinations. ??Contact the Clinical Chemistry Laboratory if there are any questions. Chloride 103 98 - 107 mmol/L [facility] Carbon Dioxide 23 22 - 31 mmol/L [facility] Anion Gap 18(H) 5 - 15 mmol/L [facility] Calcium 9.0 8.5 - 10.5 mg/dL [facility] Protein, Total 6.2 6.1 - 8.0 gm/dL [facility] Albumin 3.1(L) 3.2 - 5.2 gm/dL [facility] Aspartate Aminotransferase 12 0 - 39 unit/L [facility] Alanine Aminotransferase 8 0 - 55 unit/L [facility] Alkaline Phosphatase 101 40 - 120 unit/L [facility] Bilirubin, Total 0.9 0.2 - 1.3 mg/dL [facility] Est Glomerular Filtration Rate 39(L) >=60 [facility] Comment: The reported eGFR should be multiplied by 1.2 for patients. The MDRD is not an appropriate measure of renal function for patients with body mass extremes or in patients with acute kidney failure. http://HelloFresh/DHnkdep http://HelloFresh/DHMCnkf Blood specimen (specimen) 09/13/2017 1:10 PM EDT 09/13/2017 1:18 PM EDT Narrative Resulting Agency Comment Spec In Lab Karyn Yost APRN CHEMISTRY ORDERABLES Performing Organization Address [facility] de Phone Number [facility] [place] [address] * APTT (09/13/2017 1:10 PM EDT) Partial Thromboplastin Time 32 25 - 37 sec [facility] Comment: The PTT is NOT [...] Performing Organization Address [facility] Co de Phone Number [facility] [place] [address] * (ABNORMAL) Prothrombin Time (09/13/2017 1:10 PM EDT) Prothrombin Time 22.8(H) 9.4 - 12.5 sec [facility] International Normalization Ratio 2.0 [facility] Comment: An INR <2.0 indicates [...] Performing Organization Address [facility]/ZIP Co de Phone Number [facility] [place] [address] * POCT Glucose (09/13/2017 1:08 PM EDT) Glucose, POC 155 65 - 199 mg/dL [facility] Comment: Supplemental ranges: <140 mg/dL before meals <180 mg/dL all other times of the day Blood specimen (specimen) 09/13/2017 1:08 PM EDT 09/13/2017 1:08 PM EDT Zack Hood MD POINT OF CARE TEST O RDERABLES [facility] [place] [address] * SCAN DOC: DIET TECH (09/13/2017 12:00 AM EDT) Anatomical Region Laterality [...] PRN, Starting on Tue09/15/17 at 1529, Until 4/17/18 at 1814, Pain, Routine Given 09/20/2017 6:22 [...] SCHEDULED, First dose (after last modification) on 09/17/17 at 1800, Until Discontinued, Maximum dose of [...] Jake Carlson RN)2328 (Given - Provider: Yvette Aranda RN) 0622 (Given - Provider: Yvette Aranda, DESTIN)1242 [...] Carlson RN) 1635 (Given - Provider: Jake Carlson, DESTIN) buPROPion (WELLBUTRIN SR or ZYBAN) SR tablet 150 mg 150 mg, Oral, 2 TIMES DAILY, First dose on Tue09/14/17 at 0900, Until Discontinued, DO NOT CRUSH OR OPEN, Routine 0837 (Given - Provider: Jake Carlson RN)1301 (AUG Hold - Provider: Admin Adt - Reason: Transfer to a Procedural area)1449 (AUG Unhold - Provider: Admin Adt)2143 (Given - Provider: Michelle Coker, DESTIN) 0855 (Given - Provider: Jake Carlson RN)2117 [...] Jake Carlson RN)2143 (Given - Provider: Michelle Coker, DESTIN) 0855 (Given - Provider: Jake Carlson RN)1635 (Given - Provider: Jake Carlson RN)2117 (Given - Provider: Yvette Aranda RN) 0820 (Given - Provider: Jake Carlson RN)1500 (Due - Provider: Admin Adt) methyl salicylate-menthol (BENGAY) 15-10 % cream Topical (Top), 2 TIMES DAILY, First dose on 09/17/17 at 1400, Until Discontinued, To the lower back 0900 (Not Given - Provider: Jake Carlson RN - Reason: Patient/family refused)1301 (AUG Hold - Provider: Admin Adt - Reason: Transfer to a Procedural area)1449 (AUG Unhold - Provider: Admin Adt)2100 (Not Given [...] Adt)2143 (Given - Provider: Michelle Coker RN) 0854 [...] area)1449 (AUG Unhold - Provider: Admin Adt) 0855 (Given [...] (dose and location) verified - Provider: Jake aCrlson RN) pantoprazole (PROTONIX) injection 40 mg 40 mg, Intravenous, 2 TIMES DAILY, First dose on Tue09/18/17 at 0900, Until Discontinued 0908 (Given - Provider: Jake Carlson RN)1301 (AUG Hold - Provider: Admin Adt - Reason: Transfer to a Procedural area)1449 (AUG Unhold - Provider: Admin Adt)214 (Given - Provider: Michelle Coker RN) 0854 (Given - Provider: Jake Carlson RN)2115 (Given - Provider: Yvette Aranda RN) 0819 [...] Jake Carlson RN)0848 (Stopped - Provider: Jake Carlson, DESTIN) thiamine (B-1) injection 100 mg(Linked Group 3) 100 mg, Intravenous, DAILY, First dose on Brii 09/22/17 at 0900, Until Discontinued 1301 ([facility] Hold - Provider: Admin Adt - Reason: Transfer to a Procedural area)1449 ([facility] Unhold - Provider: Admin Adt) tiotropium (SPIRIVA) inhalation capsule with device 18 mcg 18 mcg, Inhalation, DAILY, First dose on Tue09/13/17 at 1900, Until Discontinued 0846 (Given - Provider: Jake Carlson, DESTIN)1301 ([facility] Hold - Provider: Admin Adt - Reason: Transfer to a Procedural area)1449 ([facility] Unhold - Provider: Admin Adt) 0752 (Given - Provider: Jake Carlson, DESTIN) 0819 (Given - Provider: Jake Carlson RN) Continuous Medication Order 09/18/2017 09/19/2017 09/20/2017 sodium chloride 0.9% infusion (CANCELED) 100 mL/hr, Intravenous, CONTINUOUS, Starting on Tue09/18/17 at 0100, Until Tue09/19/17 at 0800 0051 (New Bag - Provider: Hazel Eaton RN)1044 (New Bag - Provider: Jake Carlson, DESTIN)1301 ([facility] Hold - Provider: Admin Adt - Reason: Transfer to a Procedural area)1449 ([facility] Unhold - Provider: Admin Adt)2012 (New Bag - Provider: Michelle Coker, DESTIN) 0543 (New Bag - Provider: Michelle Coker, DESTIN)0855 (Stopped - Provider: Jake Carlson RN) PRN Medication Order 09/18/2017 09/19/2017 09/20/2017 bisacodyl (DULCOLAX) suppository 10 mg 10 mg, Rectal, DAILY PRN, Starting on 09/17/17 at 0841, Until Tue09/20/17 at 1814, Constipation, Routine 1301 ([facility] Hold - Provider: Admin Adt - Reason: Transfer to a Procedural area)1449 ([facility] Unhold - Provider: Admin Adt) calcium carbonate (TUMS) chewable tablet 500 mg 500 mg, Oral, 3 TIMES DAILY PRN, Starting on 09/17/17 at 0143, Until Tue09/20/17 at 1814, Heartburn, STAT 1301 ([facility] Hold - Provider: Admin Adt - Reason: Transfer to a Procedural area)1449 ([facility] Unhold - Provider: Admin Adt) 1736 (Given - Provider: Jake Carlson, DESTIN) carboxymethylcellulose (REFRESH PLUS) 0.5 % ophthalmic drops 1-2 drop 1-2 drop, Both Eyes, 3 TIMES DAILY PRN, Starting on 09/18/17 at 2109, Until Tu09/20/17 at 1814, Dry Eyes, Routine 2143 (Given - Provider: Michelle Coker, DESTIN) 0326 (Given - Provider: Michelle Coker, RN)1010 (Given - Provider: Jake Carlson, DESTIN)2335 (Given - Provider: Yvette Aranda, DESTIN) ipratropium-albuterol (DUONEB) 0.5 mg-3 mg(2.5 mg base)/3 mL nebulizer solution 3 mL 3 mL, Nebulization, EVERY 4 HOURS PRN, Starting on 09/13/17 at 1736, Until Tue09/20/17 at 1814, Wheezing, Routine 1301 ([facility] Hold - Provider: Admin Adt - Reason: Transfer to a Procedural area)1449 ([facility] Unhold - Provider: Admin Adt) lactulose (CHRONULAC) 20 gram/30 mL oral solution 20 g 20 g, Oral, 3 TIMES DAILY PRN, Starting on 09/17/17 at 0841, Until Tu09/20/17 at 1814, Constipation, Please use before bisacodyl suppository., Routine 1301 ([facility] Hold - Provider: Admin Adt - Reason: Transfer to a Procedural area)1449 ([facility] Unhold - Provider: Admin Adt) oxyCODONE (ROXICODONE) immediate release tablet 5 mg 5 mg, Oral, EVERY 4 HOURS PRN, Starting on Brii 09/15/17 at 1529, Until Tue09/20/17 at 1814, Pain, Routine 0908 (Given - Provider: Jake Carlson, DESTIN)1301 ([facility] Hold - Provider: Admin Adt - Reason: Transfer to a Procedural area)1449 ([facility] Unhold - Provider: Admin Adt) 2125 (Given - Provider: Yvette Aranda, DESTIN) 0622 (Given - Provider: Yvette Aranda [...] Discontinued documented in this encounter Care Teams Auto Transmission Specialist Relationship Specialty Start Date End Date Silvina Perdue MD [address] [place] [address] PCP - General 04/28/10 documented as of this encounter
--- OUTSIDE RECORDS SUMMARY | 2024-04-02 21:47 | XMS_ITS | Encounter Summary ---
Author Organization [facility] Address [address] [place] [address] Care Team Providers Care Design Engineering Manager Name Role Phone Silvina Foss MD Primary Care Provider [phone] Encounter Details Date Type Department Care Team (Late st Contact Info) Description 08/07/2012 Results Only [facility] Laboratory Services - [facility] ([facility]) [address] [place], [place] [address] Eric Josue MD [address] [place] [id number] Social History Tobacco Use Types Packs/Day Years Used Date Smoking Tobacco: Never Assessed Sex and Gender Information Value Date Recorded Sex Assigned at Not on file Gender Identity Not on file Sexual Orientation Not on file documented as of this encounter Plan of Treatment Not on file documented as of this encounter Procedures Procedure Name Priority Date/Time Associated Diagnosis Comments SURGICAL PATHOLOGY Routine 08/07/2012 8:12 EST documented in this encounter Results * SURGICAL PATHOLOGY (08/07/2012 8:12 EST) Pathology Report: SURGICAL PATHOLOGY REPORT Reports generated via electronic interface contain original data; however they are lacking the format of the original report. Caution should be taken when reading/interpreti ng unformatted reports. Name: ? ANDREW MABRY ? Accession #: ? [id number] ? : ? 1950 (Age: 61) ??M ? Collect Date: ? 08/07/2012 ? Location: ? [facility] ? Receive Date: ? 08/08/2012 ? Provider: ERIC JOSUE MD Copy to: SILVINA FOSS MD ? Final Pathologic Diagnosis: Esophagus, 32 cm, biopsy: 1. ?Squamocolumnar junctional mucosa with acute and chronic inflammation and reactive changes. 2. ?PAS-amylase stain is negative for fungal organisms. 3. ? Negative for definitive intestinal metaplasia. 4. ? Negative for dysplasia/malignan cy. Document reviewed and electronically signed by: ROSS MARIE MD Report ??Date: 08/11/2012 15:46 By the signature above, the attending physician certifies that he/she has personally conducted a gross and/or microscopic examination of the described specimens and rendered or confirmed the above diagnosis. Specimen(s) Received: ? Bx at 32 cm esophagus Clinical History: ? Hx adeno Ca- E/G Jct Gross Description: ? Received in formalin labelled Andrew Mabry and #1 bx 32 cm esophagus are six hart-white biopsies which vary in size from 0.1 x 0.1 x 0.1 cm up to 0.7 x 0.3 x 0.2 cm. ??The specimens are submitted intact as (1) and (2). (Tameka Terry)/mpl End of Report [facility] 08/07/2012 8:12 EST 08/08/2012 8:12 EST Eric Josue MD PATHOLOGY ORDERABLE S [facility] [address] [place] [address] documented in this encounter Visit Diagnoses Not on filedocumented in this encounter Care Teams Design Engineering Manager Relationship Specialty Start Date End Date Silvina Foss MD [address] [place] [phone] PCP - General 12/25/08 documented as of this encounter
--- OUTSIDE RECORDS SUMMARY | 2024-04-02 21:47 | XMS_ITS | Encounter Summary ---
Author Organization [facility] Address [address] [place] [address] Care Team Providers Care Rabble Furnace Tender Name Role Phone Silvina Perdue MD Primary Care Provider [phone] Encounter Details Date Type Department Care Team (Late st Contact Info) Description 10/23/2022 Lab Requisition [facility] Pathology & Laboratory Medicine - Main [place] [address] [place], [place] [address] Outr Resulting Lab, Provider Social History Tobacco [...] Diagnosis Comments LEGIONELLA ANTIGEN DETECTION, URINE Routine 10/23/2022 2:35 EDT documented in this encounter Results * LEGIONELLA ANTIGEN DETECTION, URINE (10/23/2022 2:35 EDT) Legionella Antigen Detection Negative Negative 10/24/2022 10:50 EDT [facility] Urine URINE / Unknown 10/23/2022 2 :35 EDT 10/23/2022 22:05 EDT Provider Outr Resulting Lab MICROBIOLOGY - GENERAL ORDERABLES [facility] [address] [place] [address] documented in this encounter Visit Diagnoses Not on filedocumented in this encounter Care Teams Rabble Furnace Tender Relationship Specialty Start Date End Date Silvina Perdue MD [address] [place] [phone] PCP - General 12/25/08 documented as of this encounter
--- OUTSIDE RECORDS SUMMARY | 2024-04-02 21:47 | XMS_ITS | Encounter Summary ---
Author Organization [facility] Address [address] [place] [address] Care Team Providers Care Scarfer Operator Name Role Phone Silvina Perdue MD Primary Care Provider [phone] Encounter Details Date Type Department Care Team (Late st Contact Info) Description 10/13/2021 Lab Requisition [facility] Pathology & Laboratory Medicine - Main [place] [address] [place], [place] [address] Outr Resulting Lab, Provider Social History Tobacco [...] Procedure Name Priority Date/Time Associated Diagnosis Comments RHEUMATOID FACTOR Routine 10/13/2021 7:35 EDT documented in this encounter Results * RHEUMATOID FACTOR (10/13/2021 7:35 EDT) Rheumatoid Factor <8.6 <12.0 IU/mL 10/13/2021 18:26 EDT [facility] Blood VENOUS BLOOD / Unknown 10/13/2021 7:35 EDT 10/13/2021 18:02 EDT Provider Outr Resulting Lab CHEMISTRY & BLOOD GAS ORDERABLES [facility] [address] [place] [address] documented in this encounter Visit Diagnoses Not on filedocumented in this encounter Care Teams Scarfer Operator Relationship Specialty Start Date End Date Silvina Perdue MD [address] [place] [phone] PCP - General 12/25/08 documented as of this encounter
--- OUTSIDE RECORDS SUMMARY | 2024-04-02 21:47 | XMS_ITS | Encounter Summary ---
Author Organization [facility] Address [address] [place] [address] Care Team Providers Care High School Football Coach Name Role Phone Silvina Perdue MD Primary Care Provider Encounter Details Date Type Department Care Team (Latest Contact Info) Description 08/05/2016 6:57 EST - 08/05/2016 23:59 EST Hospital Encounter [address] [address] Unknown, Provider, Discharge Disposition: Home or Self Care Social History Tobacco Use Types Packs/Day Years Used Date Smoking Tobacco: Never Assessed Sex and Gender Information Value Date Recorded Sex Assigned at Not on file Gender Identity Not on file Sexual Orientation Not on file documented as of this encounter Discharge Disposition Disposition Code Departure Means Destination Home or Self Nursing Home documented in this encounter Plan of Treatment Not on file documented as of this encounter Visit Diagnoses Not on filedocumented in this encounter Care Teams High School Football Coach Relationship Specialty Start Date End Date Silvina Perdue MD [address] [place] [phone] PCP - General 12/25/08 documented as of this encounter
--- OUTSIDE RECORDS SUMMARY | 2024-04-02 21:47 | XMS_ITS | Encounter Summary ---
Author Organization [facility] Address [address] [place] [address] Care Team Providers Care Tourist Information Assistant Name Role Phone Silvina Perdue MD Primary Care Provider [phone] Encounter Details Date Type Department Care Team (Late st Contact Info) Description 04/10/2021 Lab Requisition [facility] Pathology & Laboratory Medicine - [facility] [address] [place], [place] [address] Outr Resulting Lab, Provider Social History Tobacco [...] Procedure Name Priority Date/Time Associated Diagnosis Comments ZZCOVID-19 TEST [facility] PCR Today 04/10/2021 11:37 EDT COVID-19 TESTING Routine 04/10/2021 11:3 7 EDT documented in this encounter Results * COVID-19 TEST [facility] PCR (04/10/2021 11:37 EDT) Swab ENTIRE NASOPHARYNX / Unknown 04/10/2021 11:37 EDT 04/10/2021 20:01 EDT Provider Outr Resulting Lab MICROBIOLOGY - GENERAL ORDERABLES [facility] [address] [place] [address] * (ABNORMAL) COVID-19 TESTING (04/10/2021 11:37 EDT) COVID-19 rt-PCR Result Positive( AA) Negative 04/11/2021 16:05 EDT [facility] Comment: This test has not been FDA cleared or approved. This test has been authorized by FDA under an EUA for use by authorized laboratories. This test has been authorized only for detection of nucleic acid from 2019-nCoV, not for any other viruses or pathogens. This test is only authorized for the duration of the declaration that circumstances exist justifying the authorization of emergency use of in vitro diagnostic tests for detection and/or diagnosis of 2019-nCoV under section 564(b)(1) of Act, 21 U.S.C ?? 360bbb-3(b) (1), unless the authorization is terminated or revoked sooner. This test was developed and its performance characteristics determined by [facility]. It has not been cleared or approved by the US Food and Drug Administration. FDA does not require this test to go through premarket FDA review. This test is used for clinical purposes. It should not be regarded as investigational or for research. This laboratory is certified under the Clinical Laboratory Improvement Amendments (CLIA) as qualified to perform high complexity clinical laboratory testing. This test is based on the [facility] COVID-19 Emergency Use Authorization (EUA) assay, with minor modification as defined by the FDA Performed on the [employer] Pro RT-PCR System. Performing Lab [facility] 04/11/2021 16:05 EDT [facility] Swab 04/10/2021 11:3 7 EDT 04/10/2021 20:01 EDT Provider Outr Resulting Lab MICROBIOLOGY - GENERAL ORDERABLES [facility] [address] [place] [address] documented in this encounter Visit Diagnoses Not on filedocumented in this encounter Additional Health Concerns Infection Onset Date Last Indicated Resolved Time COVID-19 04/10/2021 04/10/2021 04/30/2021 22:1 5 EST documented as of this encounter Care Teams Tourist Information Assistant Relationship Specialty Start Date End Date Silvina Perdue MD [address] [place] [phone] PCP - General 12/25/08 documented as of this encounter
--- OUTSIDE RECORDS SUMMARY | 2024-04-02 21:47 | XMS_ITS | Encounter Summary ---
Author Organization [facility] Address [address] [place] [address] Care Team Providers Care Log Feeder Name Role Phone Silvina Perdue MD Primary Care Provider [phone] Encounter Details Date Type Department Care Team (Late st Contact Info) Description 01/25/2020 Lab Requisition [facility] Pathology & Laboratory Medicine - [facility] [address] [place], [place] [address] Outr Resulting Lab, Provider Social History Tobacco [...] Procedure Name Priority Date/Time Associated Diagnosis Comments PREALBUMIN Routine 01/24/2020 10:15 EDT documented in this encounter Results * (ABNORMAL) PREALBUMIN (01/24/2020 10:15 EDT) Prealbumin 19(L) 20 - 40 mg/dL 01/28/2020 11:17 EDT [facility] Blood VENOUS BLOOD / Unknown 01/24/2020 10:15 EDT 01/25/2020 16:06 EDT Provider Outr Resulting Lab CHEMISTRY & BLOOD GAS ORDERABLES [facility] [address] [place] [address] documented in this encounter Visit Diagnoses Not on filedocumented in this encounter Additional Health Concerns Infection Onset Date Last Indicated Resolved Time COVID-19 04/10/2021 04/10/2021 04/30/2021 22:1 5 EST documented as of this encounter Care Teams Log Feeder Relationship Specialty Start Date End Date Silvina Perdue MD [address] [place] [phone] PCP - General 12/25/08 documented as of this encounter
--- OUTSIDE RECORDS SUMMARY | 2024-04-02 21:47 | XMS_ITS | Encounter Summary ---
Author Organization [facility] Address [address] [place] [address] Care Team Providers Care Vacuum Metalizer Operator Name Role Phone Silvina Perdue MD Primary Care Provider [phone] Encounter Details Date Type Department Care Team (Late st Contact Info) Description 03/28/2023 Lab Requisition [facility] Pathology & Laboratory Medicine - Main [place] [address] [place], [place] [address] Outr Resulting Lab, Provider Social History Tobacco [...] Diagnosis Comments LEGIONELLA ANTIGEN DETECTION, URINE Routine 03/28/2023 12:35 EDT documented in this encounter Results * LEGIONELLA ANTIGEN DETECTION, URINE (03/28/2023 12:35 EDT) Legionella Antigen Detection Negative Negative 03/29/2023 23:00 EDT [facility] Urine URINE / Unknown 03/28/2023 1 2:35 EDT 03/28/2023 21:54 EDT Provider Outr Resulting Lab MICROBIOLOGY - GENERAL ORDERABLES [facility] [address] [place] [address] documented in this encounter Visit Diagnoses Not on filedocumented in this encounter Care Teams Vacuum Metalizer Operator Relationship Specialty Start Date End Date Silvina Perdue MD [address] [place] [phone] PCP - General 12/25/08 documented as of this encounter
--- OUTSIDE RECORDS SUMMARY | 2024-04-02 21:47 | XMS_ITS | Encounter Summary ---
Author Organization [facility] Address [facility] [place] [address] Care Team Providers Care Engineering Surveyor Name Role Phone Silvina Perdue MD Primary Care Provider [phone] Encounter Details Date Type Department Care Team (Latest Contact Info) Description 09/13/2017 12:24 PM EDT - 09/13/2017 12:58 PM EDT Hospital Encounter [place] [address] Zack Zamudio MD [facility] [place] [address] Discharge Disposition: Other [facility] Social History Tobacco Use Types Packs/Day Years [...] mouth daily. 90 tablet 3 09/20/2017 04/16/2021 ELIQUIS 5 mg Tablet Take 5 mg by mouth 2 times daily. 0 06/01/2017 09/20/2017 metoprolol tartrate (LOPRESSOR) 50 mg Tablet Take 50 mg by mouth 2 times daily. 0 08/11/2017 09/20/2017 pantoprazole (PROTONIX) 40 mg Tablet, Delayed Release (E.C.) Take 40 mg by mouth daily. 0 08/29/2017 04/16/2021 clotrimazole (MYCELEX) 10 mg Konrad Dissolve one in mouth three times day after brushing teeth after each meal 90 tablet 02/20/2016 09/14/2017 CIS Free Text Med - Baby ASA 81mg, PO, QD 10/03/2009 09/20/2017 atorvastatin (LIPITOR) 40 mg tablet 10mg, PO, QD 10/03/2009 09/14/2017 buPROPion (WELLBUTRIN SR) 150 mg 12 hr tablet 150mg, PO, BID 10/03/2009 09/14/2017 atenolol (TENORMIN) 100 mg tablet 10/03/2009 09/16/2017 lansoprazole (PREVACID) 30 mg capsule 10/03/2009 09/14/2017 lisinopril (PRINIVIL;ZESTRIL) 10 mg tablet 10/03/2009 09/16/2017 fluticasone (FLOVENT HFA) 110 mcg/Actuation inhaler 10/03/20092017 documented as of this encounter Plan of Treatment Not on file documented as of this encounter Visit Diagnoses Not on filedocumented in this encounter Care Teams Engineering Surveyor Relationship Specialty Start Date End Date Silvina Perdue MD [address] [place] [address] PCP - General 04/28/10 documented as of this encounter
--- OUTSIDE RECORDS SUMMARY | 2024-04-02 21:48 | XMS_ITS | Encounter Summary ---
Author Organization [facility] Address [address] [place] [address] Care Team Providers Care Mutuel Teller Name Role Phone Silvina Perdue MD Primary Care Provider [phone] Encounter Details Date Type Department Care Team (Late st Contact Info) Description 08/18/2001 Results Only [facility] - [facility] [address] [place] [address] Eric Josue MD [address] [place] [address] Social History Tobacco Use Types Packs/Day Years Used Date Smoking Tobacco: Never Assessed Sex and Gender Information Value Date Recorded Sex Assigned at Not on file Gender Identity Not on file Sexual Orientation Not on file documented as of this encounter Plan of Treatment Not on file documented as of this encounter Procedures Procedure Name Priority Date/Time Associated Diagnosis Comments SURGICAL PATHOLOGY Routine 08/18/2001 0:00 EST documented in this encounter Results * SURGICAL PATHOLOGY (08/18/2001 0:00 EST) Pathology Report: SURGICAL PATHOLOGY REPORT Reports generated via electronic interface contain original data; however they are lacking the format of the original report. Caution should be taken when reading/interpreti ng unformatted reports. Name: ? ANDREW MABRY ? Accession #: ? [id number] ? : ? 1950 (Age: 51) ??M ? Collect Date: ? 08/18/2001 ? Location: ? [facility] ? Receive Date: ? 08/18/2001 ? Provider: ERIC JOSUE MD Copy to: SILVINA DIAZ MD ? Final Pathologic Diagnosis: ? Esophagus, 35 cm, biopsies: 1. ?Reactive squamous and glandular mucosa with acute and chronic inflammation. 2. ?PAS-D is negative for fungi. 3. ?No intestinal metaplasia identified. 4. ?Negative for tumor. Document reviewed and electronically signed by: Alana Saba [facility] Report ??Date: 08/23/2001 16:13 By the signature above, the attending physician certifies that he/she has personally conducted a gross and/or microscopic examination of the described specimens and rendered or confirmed the above diagnosis. Specimen(s) Received: ? Esophagus 35 cm Clinical History: ? S/P esophagogastric for Ca Gross Description: ? Received in Hollande' s fixative labelled Jorge Luis and #1 ??esophagus 35 cm are multiple hart-yellow irregularly shaped fragments of soft tissue which measure in aggregate 1.0 x 0.3 x 0.2 cm. ??They are submitted entirely in one cassette. ??(Dr. Trinh-[place])/[facility] End of Report [facility] 08/18/2001 08/18/2001 15: 23 EST Eric Josue MD PATHOLOGY ORDERABLE S [facility] [address] [place] [address] documented in this encounter Visit Diagnoses Not on filedocumented in this encounter Care Teams Mutuel Teller Relationship Specialty Start Date End Date Silvina Perdue MD [address] [place] [phone] PCP - General 12/25/08 documented as of this encounter
--- OUTSIDE RECORDS SUMMARY | 2024-04-02 21:48 | XMS_ITS | Encounter Summary ---
Author Organization [facility] Address [address] [place] [address] Care Team Providers Care Tour Director Name Role Phone Silvina Perdue MD Primary Care Provider [phone] Encounter Details Date Type Department Care Team (Late st Contact Info) Description 06/07/2001 Results Only [facility] - [place] [facility] [address] [place] [address] Eric Josue MD [address] [place] [address] Social History Tobacco Use Types Packs/Day Years Used Date Smoking Tobacco: Never Assessed Sex and Gender Information Value Date Recorded Sex Assigned at Not on file Gender Identity Not on file Sexual Orientation Not on file documented as of this encounter Plan of Treatment Not on file documented as of this encounter Procedures Procedure Name Priority Date/Time Associated Diagnosis Comments SURGICAL PATHOLOGY Routine 06/07/2001 0:00 EST documented in this encounter Results * SURGICAL PATHOLOGY (06/07/2001 0:00 EST) Pathology Report: SURGICAL PATHOLOGY REPORT Reports generated via electronic interface contain original data; however they are lacking the format of the original report. Caution should be taken when reading/interpreting unformatted reports. Name: ? ANDREW MABRY ? Accession #: ? [id number] ? : ? 1950 (Age: 50) ??M ? Collect Date: ? 06/07/2001 ? Location: ? [facility] ? Receive Date: ? 06/07/2001 ? Provider: ERIC JOSUE MD Copy to: SILVINA DIAZ MD ? Final Pathologic Diagnosis: ? Soft tissue, left costal margin wound, debridement: 1. ?Fragments of cartilage, skeletal muscle, and attached soft tissues with acute and chronic inflammation, granulation tissue, fibrosis, and foreign body giant cell reaction to suture material. 2. ?No tumor identified. Document reviewed and electronically signed by: Mellisa Briggs MD Report ??Date: 06/08/2001 16:26 By the signature above, the attending physician certifies that he/she has personally conducted a gross and/or microscopic examination of the described specimens and rendered or confirmed the above diagnosis. Specimen(s) Received: ? L costal margin wound tissue Clinical History: ? 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 Received in formalin labelled Jorge Luis and costal margin wound tissue are multiple, irregularly shaped, smooth to slightly granular, firm, hart-brown to red-brown, focally hemorrhagic, fibrous tissue fragments that aggregate to 2.2 x 2.2 x 0.7 cm. ??The fragments are entirely submitted in cassettes (A1) and (A2). (Jodie Cruz)/dtl End of Report [facility] 06/07/2001 06/07/2001 15: 16 EST Eric Josue MD PATHOLOGY ORDERABLE S [facility] [address] [place] [address] documented in this encounter Visit Diagnoses Not on filedocumented in this encounter Care Teams Tour Director Relationship Specialty Start Date End Date Silvina Perdue MD [address] [place] [phone] PCP - General 12/25/08 documented as of this encounter
--- OUTSIDE RECORDS SUMMARY | 2024-04-02 21:48 | XMS_ITS | Encounter Summary ---
Author Organization [facility] Address [address] [place] [address] Care Team Providers Care Adapted Physical Education Aide Name Role Phone Silvina Foss MD Primary Care Provider [phone] Encounter Details Date Type Department Care Team (Late st Contact Info) Description 01/27/2001 Results Only [facility] - [facility] conversion [address] [place] [address] Eric Josue MD [address] [place] [address] Social History Tobacco Use Types Packs/Day Years Used Date Smoking Tobacco: Never Assessed Sex and Gender Information Value Date Recorded Sex Assigned at Not on file Gender Identity Not on file Sexual Orientation Not on file documented as of this encounter Plan of Treatment Not on file documented as of this encounter Procedures Procedure Name Priority Date/Time Associated Diagnosis Comments SURGICAL PATHOLOGY Routine 01/27/2001 0:00 EDT documented in this encounter Results * SURGICAL PATHOLOGY (01/27/2001 0:00 EDT) Pathology Report: SURGICAL PATHOLOGY REPORT Reports generated via electronic interface contain original data; however they are lacking the format of the original report. Caution should be taken when reading/interpreting unformatted reports. Name: ? ANDREW MABRY ? Accession #: ? [id number] ? : ? 1950 (Age: 50) ??M ? Collect Date: ? 01/27/2001 ? Location: ? [facility] ? Receive Date: ? 01/30/2001 ? Provider: ERIC JOSUE MD Copy to: MARU FOSS MD ? Final Pathologic Diagnosis: ? Esophagus, biopsies: 1. ?Adenocarcinoma, moderately differentiated, invasive, undermining the squamous mucosa. See comment. 2. ?Squamous, gastric, and intestinal type epithelium with acute and chronic inflammation and reactive changes. 3. ?No high grade dysplasia identified. Comment: ? This case has been reviewed at intradepartmental consultation conference. The invasive adenocarcinoma ??is present within the submucosa under the bland squamous epithelium. There is no in-situ component seen in these biopsies. Clinical correlation is recommended. (Dr. Briggs) Document reviewed and electronically signed by: Mellisa Briggs MD Report ??Date: 02/02/2001 18:29 By the signature above, the attending physician certifies that he/she has personally conducted a gross and/or microscopic examination of the described specimens and rendered or confirmed the above diagnosis. Specimen(s) Received: ? Esophagus Clinical History: ? H/O esophagitis Gross Description: ? Received in Hollande' s fixative labelled Jorge Luis and esophagus are four irregular to polypoid soft tissue fragments that range from 0.4 x 0.3 x 0.2 cm to 0.2 x 0.2 x 0.2 cm. ??The specimen is entirely submitted in cassettes (A1) and (A2). ??(Jodie Tejeda/[facility] End of Report [facility] 01/27/2001 01/30/2001 15: 38 EDT Eric Josue MD PATHOLOGY ORDERABLE S Performing Organization Address City/State/[facility] Co de Phone Number [facility] COUNT INCLUDES [facility] [address] [place] [address] documented in this encounter Visit Diagnoses Not on filedocumented in this encounter Care Teams Adapted Physical Education Aide Relationship Specialty Start Date End Date Silvina Foss MD [address] [place] [phone] PCP - General 12/25/08 documented as of this encounter
--- OUTSIDE RECORDS SUMMARY | 2024-04-02 21:48 | XMS_ITS | Encounter Summary ---
Author Organization [facility] Address [address] [place] [address] Care Team Providers Care Sales Financial Analyst Name Role Phone Silvina Foss MD Primary Care Provider [phone] Encounter Details Date Type Department Care Team (Late st Contact Info) Description 05/03/2000 Results Only [facility] - Maple conversion [address] [place] [address] Eric Josue MD [address] [place] [id number] Social History Tobacco Use Types Packs/Day Years Used Date Smoking Tobacco: Never Assessed Sex and Gender Information Value Date Recorded Sex Assigned at Not on file Gender Identity Not on file Sexual Orientation Not on file documented as of this encounter Plan of Treatment Not on file documented as of this encounter Procedures Procedure Name Priority Date/Time Associated Diagnosis Comments SURGICAL PATHOLOGY Routine 05/03/2000 0:00 EST documented in this encounter Results * SURGICAL PATHOLOGY (05/03/2000 0:00 EST) Pathology Report: SURGICAL PATHOLOGY REPORT Reports generated via electronic interface contain original data; however they are lacking the format of the original report. Caution should be taken when reading/interpreti ng unformatted reports. Name: ? ANDREW MABRY ? Accession #: ? [id number] ? : ? 1950 (Age: 49) ??M ? Collect Date: ? 05/03/2000 ? Location: ? [facility] ? Receive Date: ? 05/03/2000 ? Provider: ERIC JOSUE MD Copy to: MARU FOSS MD ? Final Pathologic Diagnosis: ? Esophagus, 35 cm, biopsies: - Gastric-type mucosa with focal intestinal metaplasia and epithelial atypia, favor reactive. ?? See comment. - Squamous epithelial changes consistent with reflux esophagitis. - PAS stains negative for fungi. Comment: ? This epithelium is detached and not part of the main gastric-type mucosal biopsy. ??This case was reviewed with Dr. Leigh Morales. ??(Dr. Saba)/lgk Document reviewed and electronically signed by: Alana Saba, [facility] Report ??Date: 05/06/2000 16:00 By the signature above, the attending physician certifies that he/she has personally conducted a gross and/or microscopic examination of the described specimens and rendered or confirmed the above diagnosis. Specimen(s) Received: ? A. ??Esophagus 35 cm biopsy (#1) Clinical History: ? Reflux epigastritis Gross Description: ? Received in Hollande' s fixative labelled Jorge Luis and 1-Esophagus 35 cm biopsy are four hart-pisano, friable, soft tissue fragments ranging from 0.2 x 0.2 x 0.2 cm to 0.4 x 0.2 x 0.2 cm. ??The specimen is entirely submitted as (A1) and (A2). ??(Maye Camacho)/lgk End of Report [facility] 05/03/2000 05/03/2000 15: 52 EST Eric Josue MD PATHOLOGY ORDERABLE S [facility] [address] [place] [address] documented in this encounter Visit Diagnoses Not on filedocumented in this encounter Care Teams Sales Financial Analyst Relationship Specialty Start Date End Date Silvina Foss MD [address] [place] [phone] PCP - General 12/25/08 documented as of this encounter
--- OUTSIDE RECORDS SUMMARY | 2024-04-02 21:48 | XMS_ITS | Encounter Summary ---
Author Organization [facility] Address [address] [place] [address] Care Team Providers Care Histologist Technologist Name Role Phone Silvina Perdue MD Primary Care Provider [phone] Encounter Details Date Type Department Care Team (Late st Contact Info) Description 03/01/2001 Results Only [facility] [address] [place] [address] Eric Josue MD [address] [place] [id number] Social History Tobacco Use Types Packs/Day Years Used Date Smoking Tobacco: Never Assessed Sex and Gender Information Value Date Recorded Sex Assigned at Not on file Gender Identity Not on file Sexual Orientation Not on file documented as of this encounter Plan of Treatment Not on file documented as of this encounter Procedures Procedure Name Priority Date/Time Associated Diagnosis Comments SURGICAL PATHOLOGY Routine 03/01/2001 0:00 EDT documented in this encounter Results * SURGICAL PATHOLOGY (03/01/2001 0:00 EDT) Pathology Report: SURGICAL PATHOLOGY REPORT Reports generated via electronic interface contain original data; however they are lacking the format of the original report. Caution should be taken when reading/interpreting unformatted reports. Name: ? ANDREW MABRY ? Accession #: ? [id number] ? : ? 1950 (Age: 50) ??M ? Collect Date: ? 03/01/2001 ? Location: ? [facility] ? Receive Date: ? 03/02/2001 ? Provider: ERIC JOSUE MD Copy to: SILVINA DIAZ MD ? Final Pathologic Diagnosis: A. ?Distal esophagus and proximal stomach, resection: 1. ?Esophagus: ? - Adenocarcinoma, moderately differentiated, invasion into submucosa, but not into muscularis (AJCC: T1). - Surgical margins are negative for tumor. ? -Tumor is present 1.0 cm from deep margin (A5) and 1.4 cm from proximal esophageal margin. ? -Distal stomach margin is negative for tumor. ?- No definitive lymphovascular invasion identified. - Five lymph nodes negative for tumor (0/5) (AJCC: N0). ??See comment. 2. ?Stomach: ? - Focal chronic gastritis. B. ?Esophageal anastomosis ring, excision: 1. ?Squamous lined mucosa focal submucosal chronic inflammation. 2. ?Negative for tumor. C. ?Gastric anastomosis ring, excision: 1. ?Negative for tumor. D. ?Omental tissue, excision: 1. ?Negative for tumor. E. ?Para-esophageal tissue, excision: 1. ?One paraesophageal lymph node negative for tumor (0/1). ??See comment. Comment: ? Focal intestinal metaplasia (Gomez' s mucosa) is identified in a section of the esophagus away from tumor. ??The tissue submitted as celiac lymph node (block A17) shows no evidence of lymphoid tissue. ??A total of 6 lymph nodes are negative for tumor (0/6). ??Data Processing Equipment Repairer sections of this case were shown at the intradepartmental consultation conference. ??(Dr. Ivey)/[facility] ? Document reviewed and electronically signed by: PAULA HAMEED MD Report ??Date: 03/15/2001 16:34 By the signature above, the attending physician certifies that he/she has personally conducted a gross and/or microscopic examination of the described specimens and rendered or confirmed the above diagnosis. Specimen(s) Received: A. ?Esophagogastrectomy (#1) B. ?Esophageal anastomosis ring (#2) C. ?Gastric anastomosis ring (#3) D. ?Omentum (#4) E. ?Para-esophageal tissue (#5) Clinical History: ? Long suture on celiac lymph node; esophageal CA Intraoperative Interpretation: ? Esophagus and stomach, esophagogastrectomy, esophageal margin, resection: 1A. ??Esophageal margin, 1st quadrant: ??No invasive tumor identified ??Dr. Adelaida Diaz; 03/01/01 1B. ??Esophageal margin, 2nd quadrant: ??No invasive tumor identified ??Dr. Adelaida Diaz; 03/01/01 1C. ??Esophageal margin, 3rd quadrant: ??No invasive tumor identified ??Dr. Adelaida Diaz; 03/01/01 1D. ??Esophageal margin, 4th quadrant: ??No invasive tumor identified ??Dr. Adelaida Diaz; 03/01/01 Gross Description: ? Received fresh labelled Jorge Luis and esophagogastrectomy is the closed product of a partial esophagogastrectomy which includes a 5.2 cm in length portion of (distal) esophagus and has an external diameter of 2.2 cm. ??The mucosa at the margin is hart-white, smooth, without ulceration or lesions. ??The single long black suture denotes the celiac lymph node as per the accompanying requisition slip. ??The resected gastric portion measures 3.0 cm in length along the stapled gastric margin and 17.5 cm along the greater curvature. ??Adipose tissue attached to the inferior end of the greater curvature measures 31.0 cm medial to lateral, 16.5 cm superior to inferior, and 1.8 cm in thickness. ??The deep resection margins of the esophagus and external surface along the gastric suture are inked black. ??The distal 0.3 cm of the esophagus with muscularis propria is cut into four quadrants and submitted en face for frozen section analysis as FS1A through FS1D with the above interpretations rendered. ??The specimen is opened along the staple line with the incision extending along the greater curvature into the esophagus. ??The dimensions of the opened specimen are 9.8 cm from the esophageal edge to gastric staple and stomach and 21.0 cm medial to lateral. ??The mucosa has the usual rugated appearance. ??There is a 2.3 x 1.5 x 0.3 cm sessile mass present at the gastroesophageal junction. ??The deep tissue beneath is mobile and without gross tumor. ??The mass is present 1.1 cm from the esophageal edge (with 0.3 cm removed for frozen section, mass is 1.4 cm from specimen esophageal margin). ?? BLOCK GREGORIO A1-A4 ?Frozen section controls FS1A through FS1D A5-A9 ?Five sections of entire sessile mass (A5, A6, and A7 including deep tissue margin) A10 ?Section of deep tissue margin adjacent to (A8) and (A9) A11-A13 ? Three sections of gastric tissue adjacent to mass, including deep tissue margin A14-A15 ? Two telephone sales representative sections taken adjacent to stapled distal surgical margin A16 ?Possible lymph node taken adjacent to the area of long suture A17 ?One possible lymph node, bisected, taken from region with long suture, denoting celiac lymph node A18-A19 ? Five possible lymph nodes taken from lesser curvature A20-A21 ? Additional sections of stomach and proximal esophagus Received fresh labelled Jorge Luis and esophageal anastomosis ring is a 2.1 x 1.3 x 0.4 cm piece of esophageal ring. ??The specimen is divided into two pieces and submitted as (B). Received fresh labelled Jorge Luis and gastric anastomosis ring is a 1.9 x 1.8 x 0.6 cm portion of gastric anastomosis ring. ??The specimen is submitted intact as (C). Received fresh labelled Jorge Luis and omentum are three pieces of fibrofatty tissue which have an aggregate measurement of 28.0 x 21.0 x 5.0 cm. ??Examination of the fibrofatty tissue reveals no masses. ?? BLOCK GREGORIO D1-D5 ?Five telephone sales representative sections of fibrofatty tissue Received fresh labelled Jorge Luis and para-esophageal tissue is a 4.5 x 2.1 x 0.3 cm piece of fibrofatty tissue. ??Examination of the fibrofatty tissue reveals one lymph node. ??The piece of tissue is, otherwise, yellow-white and focally hemorrhagic. ? BLOCK GREGORIO E1 ?One possible lymph node from para-esophageal tissue, submitted intact E2 ?Data Processing Equipment Repairer section of para-esophageal tissue (Dr. Ivey)/nallely End of Report GIFTY HO 03/01/2001 03/02/2001 9:3 8 EDT Eric Josue MD PATHOLOGY ORDERABLE S Performing Organization Address City/State/[facility] Co de Phone Number [facility] [address] [place] [address] documented in this encounter Visit Diagnoses Not on filedocumented in this encounter Care Teams Histologist Technologist Relationship Specialty Start Date End Date Silvina Perdue MD [address] [place] [phone] PCP - General 12/25/08 documented as of this encounter
== END 2024-04-02 21:41 | disposition home or self-care (01) ==
LOC: NCHCN 21:40
PROVIDERS: PCP Family Medicine; Visit Provider Family Medicine
DX: I25.10 Atherosclerotic heart disease of native coronary artery without angina pectoris; K21.9 Gastro-esophageal reflux disease without esophagitis
CPT/HCPCS: 80053; 83036; 85025